=== PATIENT | female | born 1980 | race Caucasian/White ===

== ENCOUNTER 2016-03-15 | Outpatient (CLI) | payer MEDICAID | END 2016-03-15 22:27 | disposition critical access hospital (66) | CPT/HCPCS: A0425; A0429 ==

== ENCOUNTER 2016-03-15 22:46 | Inpatient (IN) | payer MEDICAID ==
[2016-03-15] MEDS ORDERED: SODIUM CHLORIDE 0.9% 1,000 ML IV ONE (23:06)
[2016-03-15] MEDS ORDERED: HYDROmorphone 1 MG/ML SYRINGE IVP STA (23:58)
[2016-03-15] MEDS ORDERED: INSULIN REGULAR HUMAN 100 UNIT/1 ML 10 ML MDV IV STA (23:59)
[2016-03-15] MEDS ORDERED: INSULIN REGULAR HUMAN 100 UNIT/1 ML 10 ML MDV SUBQ STA (23:59)
[2016-03-16] MEDS ORDERED: INSULIN REGULAR HUMAN 100 UNIT/1 ML 10 ML MDV ONE ×2 (00:02→01:58)
[2016-03-16] MEDS ORDERED: MIDAZOLAM 2 MG/2 ML VIAL ONE ×2 (00:47→01:03)
[2016-03-16] MEDS ORDERED: MIDAZOLAM 2 MG/2 ML VIAL IVP STA ×4 (00:47→01:30)
[2016-03-16] MEDS ORDERED: INSULIN REGULAR HUMAN 100 UNIT in SODIUM CHLORIDE 0.9% 100ML 99 ML IV STA (01:45)
[2016-03-16] MEDS ORDERED: PROPOFOL 200 MG/20 ML VIAL IVP ONE (02:16)
[2016-03-16] MEDS ORDERED: SODIUM CHLORIDE 0.9% 1,000 ML IV ONE ×4 (03:10→23:53)
[2016-03-16] MEDS ORDERED: ONDANSETRON 4 MG/2 ML VIAL IVP STA (03:30)
[2016-03-16] MEDS ORDERED: cefTRIAXone 1 GM in SODIUM CHLORIDE 0.9% MINIBAG 100 ML IV STA (03:30)
[2016-03-16] MEDS ORDERED: HYDROmorphone 1 MG/ML SYRINGE IVP STA (03:30)
[2016-03-16] MEDS ORDERED: LORazepam 2 MG/ML SYRINGE IVP STA (03:31)
[2016-03-16] MEDS ORDERED: LORazepam 2 MG/ML SYRINGE ONE (03:40)
[2016-03-16] MEDS ORDERED: HYDROmorphone 1 MG/ML SYRINGE ONE (03:40)
[2016-03-16] MEDS ORDERED: ONDANSETRON 4 MG/2 ML VIAL ONE (03:40)
[2016-03-16] MEDS ORDERED: cefTRIAXone 1 GM VIAL ONE (03:51)
[2016-03-16] MEDS ORDERED: ONDANSETRON 4 MG/2 ML VIAL IVP PRN (06:49)
[2016-03-16] MEDS ORDERED: oxyCODONE 5 MG TABLET PO PRN (06:49)
[2016-03-16] MEDS ORDERED: ALBUTEROL NEB 2.5 MG/3 ML INH PRN (06:49)
[2016-03-16] MEDS: INSULIN REGULAR HUMAN 100 UNIT in SODIUM CHLORIDE 0.9% 100ML 99 ML IV SCH ×2 (08:32→11:39)
[2016-03-16] MEDS: AMPICILLIN/SULBACTAM 3 GM in SODIUM CHLORIDE 0.9% MINIBAG 100 ML IV SCH ×3 (09:11→18:22)
[2016-03-16] MEDS: SODIUM CHLORIDE 0.9% 1,000 ML IV SCH ×3 (09:11→18:52)
[2016-03-16] MEDS: PANTOPRAZOLE 40 MG VIAL IVP SCH ×2 (09:12→20:58)
[2016-03-16] MEDS: ENOXAPARIN 40 MG/0.4 ML SYRINGE SUBQ SCH (09:12)
[2016-03-16] MEDS: HYDROmorphone 1 MG/ML SYRINGE IVP PRN ×5 (09:57→22:32)
[2016-03-16] MEDS: SODIUM CHLORIDE FLUSH 0.9% 10 ML SYRINGE IVP SCH ×2 (12:58→20:58)
[2016-03-16] MEDS: LORazepam 2 MG/ML SYRINGE IVP PRN ×2 (16:25→23:24)
[2016-03-16] MEDS: oxyCODONE 5 MG TABLET PO PRN (19:33)
[2016-03-16] MEDS ORDERED: DEXTROSE 5%-0.45% NACL 1,000 ML IV SCH (20:00)
[2016-03-16] MEDS: SODIUM CHLORIDE FLUSH 0.9% 10 ML SYRINGE IVP PRN (20:58)
[2016-03-16] MEDS ORDERED: CALCIUM GLUCONATE 1,000 MG in SODIUM CHLORIDE 0.9% 50 ML IV SCH (23:16)
[2016-03-16] MEDS ORDERED: POTASSIUM PHOSPHATE 21 MMOL in SODIUM CHLORIDE 0.9% 250 ML IV ONE (23:34)
[2016-03-17] MEDS: HYDROmorphone 1 MG/ML SYRINGE IVP PRN ×7 (01:42→21:53)
[2016-03-17] MEDS: oxyCODONE 5 MG TABLET PO PRN ×2 (02:15→23:21)
[2016-03-17] MEDS ORDERED: DEXTROSE 5%-0.45% NACL 1,000 ML IV SCH (03:15)
[2016-03-17] MEDS ORDERED: POTASSIUM CHLORIDE 20 MEQ TABLET PO ONE (05:17)
[2016-03-17] MEDS ORDERED: POTASSIUM PHOSPHATE 15 MMOL in SODIUM CHLORIDE 0.9% 250 ML IV ONE (05:18)
[2016-03-17] MEDS ORDERED: CALCIUM GLUCONATE 1,000 MG in SODIUM CHLORIDE 0.9% 50 ML IV ONE (05:18)
[2016-03-17] MEDS: SODIUM CHLORIDE FLUSH 0.9% 10 ML SYRINGE IVP SCH ×3 (05:29→21:34)
[2016-03-17] MEDS: AMPICILLIN/SULBACTAM 3 GM in SODIUM CHLORIDE 0.9% MINIBAG 100 ML IV SCH ×6 (06:20→23:52)
[2016-03-17] MEDS ORDERED: INSULIN ASPART 300 UNIT/3 ML PEN SUBQ SCH (08:00)
[2016-03-17] MEDS: SODIUM CHLORIDE FLUSH 0.9% 10 ML SYRINGE IVP PRN ×10 (08:05→21:40)
[2016-03-17] MEDS ORDERED: INSULIN GLARGINE 300 UNIT/3 ML PEN SUBQ SCH (09:00)
[2016-03-17] MEDS: ENOXAPARIN 40 MG/0.4 ML SYRINGE SUBQ SCH (09:36)
[2016-03-17] MEDS: POLYETHYLENE GLYCOL 3350 17 GM PACKET PO SCH (09:36)
[2016-03-17] MEDS: PANTOPRAZOLE 40 MG VIAL IVP SCH ×2 (09:37→21:33)
[2016-03-17] MEDS ORDERED: HYDROmorphone 2 MG TABLET PO PRN (10:39)
[2016-03-17] MEDS ORDERED: INSULIN REGULAR HUMAN 100 UNIT in SODIUM CHLORIDE 0.9% 100ML 99 ML IV SCH ×3 (11:00→12:00)
[2016-03-17] MEDS ORDERED: SODIUM CHLORIDE 0.9% 1,000 ML IV ONE ×2 (11:24→12:43)
[2016-03-17] MEDS ORDERED: A & D OINTMENT 5 GM PACKET TOP ONE ×2 (12:12→14:46)
[2016-03-17] MEDS: LORazepam 2 MG/ML SYRINGE IVP PRN ×4 (12:47→21:34)
[2016-03-17] MEDS: SODIUM CHLORIDE 0.9% 1,000 ML IV SCH ×2 (14:25→22:10)
[2016-03-17] MEDS ORDERED: CYCLOBENZAPRINE 10 MG TABLET PO PRN (14:44)
[2016-03-17] MEDS ORDERED: clonazePAM 0.5 MG TABLET PO PRN (14:44)
[2016-03-17] MEDS ORDERED: METOCLOPRAMIDE 10 MG/2 ML VIAL IVP PRN (14:46)
[2016-03-17] MEDS: INSULIN GLARGINE 300 UNIT/3 ML PEN SUBQ SCH ×2 (15:04→21:41)
[2016-03-17] MEDS ORDERED: POTASSIUM CHLORIDE 20 MEQ TABLET PO SCH (20:15)
[2016-03-17] MEDS ORDERED: AMITRIPTYLINE 25 MG TABLET PO SCH (21:00)
[2016-03-17] MEDS: PROPRANOLOL 10 MG TABLET PO SCH (21:33)
[2016-03-17] MEDS ORDERED: DEXTROSE GEL 37.5 GM TUBE PO PRN (21:51)
[2016-03-17] MEDS ORDERED: GLUCAGON 1 MG/ML VIAL SUBQ PRN (21:51)
[2016-03-17] MEDS ORDERED: DEXTROSE 5% 1,000 ML IV PRN (21:51)
[2016-03-17] MEDS ORDERED: DEXTROSE 50% ABBOJECT 25 GM/50 ML SYRINGE IVP PRN (21:51)
[2016-03-17] MEDS: INSULIN ASPART 300 UNIT/3 ML PEN SUBQ SCH (21:59)
[2016-03-18] MEDS: AMPICILLIN/SULBACTAM 3 GM in SODIUM CHLORIDE 0.9% MINIBAG 100 ML IV SCH ×2 (06:00→13:28)
[2016-03-18] MEDS: SODIUM CHLORIDE 0.9% 1,000 ML IV SCH (07:15)
[2016-03-18] MEDS: SODIUM CHLORIDE FLUSH 0.9% 10 ML SYRINGE IVP SCH (08:23)
[2016-03-18] MEDS ORDERED: SERTRALINE 50 MG TABLET PO SCH (09:00)
[2016-03-18] MEDS: POLYETHYLENE GLYCOL 3350 17 GM PACKET PO SCH (09:29)
[2016-03-18] MEDS: ENOXAPARIN 40 MG/0.4 ML SYRINGE SUBQ SCH (09:30)
[2016-03-18] MEDS: INSULIN GLARGINE 300 UNIT/3 ML PEN SUBQ SCH (09:30)
[2016-03-18] MEDS: PANTOPRAZOLE 40 MG VIAL IVP SCH (09:30)
[2016-03-18] MEDS: PROPRANOLOL 10 MG TABLET PO SCH (09:31)
[2016-03-18] MEDS: oxyCODONE 5 MG TABLET PO PRN (11:20)
[2016-03-18] MEDS: INSULIN ASPART 300 UNIT/3 ML PEN SUBQ SCH (13:28)
== END 2016-03-18 14:10 | disposition home or self-care (01) | DRG 639 ==
PROC: 02HV33Z Insertion of Infusion Device into Superior Vena Cava, Percutaneous Approach (ICD-10-PCS; principal; 2016-03-16)
DX: E10.10 Type 1 diabetes mellitus with ketoacidosis without coma (principal); L03.031 Cellulitis of right toe; H66.001 Acute suppurative otitis media without spontaneous rupture of ear drum, right ear; E10.621 Type 1 diabetes mellitus with foot ulcer; L97.511 Non-pressure chronic ulcer of other part of right foot limited to breakdown of skin; N19 Unspecified kidney failure; F41.9 Anxiety disorder, unspecified; G89.29 Other chronic pain; E10.42 Type 1 diabetes mellitus with diabetic polyneuropathy; I10 Essential (primary) hypertension; E78.5 Hyperlipidemia, unspecified; I73.9 Peripheral vascular disease, unspecified; F41.0 Panic disorder [episodic paroxysmal anxiety]; F32.9 Major depressive disorder, single episode, unspecified; M79.7 Fibromyalgia; I25.10 Atherosclerotic heart disease of native coronary artery without angina pectoris; F17.200 Nicotine dependence, unspecified, uncomplicated; I25.2 Old myocardial infarction; Z78.1 Physical restraint status; Z87.898 Personal history of other specified conditions; Z79.4 Long term (current) use of insulin; Z91.19 Patient's noncompliance with other medical treatment and regimen

== ENCOUNTER 2016-03-27 | Outpatient (CLI) | payer MEDICAID | END 2016-03-27 09:11 | disposition critical access hospital (66) | CPT/HCPCS: A0425; A0429 ==

== ENCOUNTER 2016-03-27 09:24 | Inpatient (IN) | payer MEDICAID ==
[2016-03-27] MEDS ORDERED: SODIUM CHLORIDE 0.9% 1,000 ML IV ONE ×2 (09:37→09:39)
[2016-03-27] MEDS ORDERED: INSULIN REGULAR HUMAN 100 UNIT/1 ML 10 ML MDV IVP STA (09:38)
[2016-03-27] MEDS ORDERED: INSULIN REGULAR HUMAN 100 UNIT in SODIUM CHLORIDE 0.9% 100ML 99 ML IV STA (09:41)
[2016-03-27] MEDS ORDERED: INSULIN REGULAR HUMAN 100 UNIT/1 ML 10 ML MDV ONE (10:02)
[2016-03-27] MEDS ORDERED: ONDANSETRON 4 MG/2 ML VIAL IVP PRN (11:28)
[2016-03-27] MEDS ORDERED: ONDANSETRON 4 MG/2 ML VIAL ONE (12:08)
[2016-03-27] MEDS ORDERED: HYDROmorphone 1 MG/ML SYRINGE ONE (12:08)
[2016-03-27] MEDS: HYDROmorphone 1 MG/ML SYRINGE IVP PRN ×5 (12:13→23:28)
[2016-03-27] MEDS: SODIUM CHLORIDE FLUSH 0.9% 10 ML SYRINGE IVP PRN ×5 (14:22→17:30)
[2016-03-27] MEDS ORDERED: A & D OINTMENT 5 GM PACKET TOP ONE ×2 (14:24→15:53)
[2016-03-27] MEDS: SODIUM CHLORIDE 0.9% 1,000 ML IV SCH ×4 (14:27→22:59)
[2016-03-27] MEDS ORDERED: SODIUM BICARBONATE 100 MEQ in DEXTROSE 5% 1,000 ML IV SCH (14:30)
[2016-03-27] MEDS: SODIUM CHLORIDE FLUSH 0.9% 10 ML SYRINGE IVP SCH (14:37)
[2016-03-27] MEDS ORDERED: NS W/20 MEQ KCL 1,000 ML IV SCH (17:00)
[2016-03-27] MEDS ORDERED: INSULIN REGULAR HUMAN 100 UNIT in SODIUM CHLORIDE 0.9% 100ML 99 ML IV SCH (17:00)
[2016-03-27] MEDS: PROCHLORPERAZINE 10 MG/2 ML VIAL IVP PRN ×2 (17:28→23:31)
[2016-03-27] MEDS ORDERED: CALCIUM GLUCONATE 1,000 MG in SODIUM CHLORIDE 0.9% 50 ML IV ONE (19:30)
[2016-03-27] MEDS ORDERED: POTASSIUM PHOSPHATE 15 MMOL in SODIUM CHLORIDE 0.9% 250 ML IV ONE (20:00)
[2016-03-27] MEDS ORDERED: ACETAMINOPHEN 1,000 MG/100 ML 100 ML IV SCH (20:38)
[2016-03-27] MEDS: DEXTROSE 5%-0.9% NACL 1,000 ML IV SCH (21:15)
[2016-03-28] MEDS: SODIUM CHLORIDE FLUSH 0.9% 10 ML SYRINGE IVP PRN ×2 (00:34→20:29)
[2016-03-28] MEDS ORDERED: CALCIUM GLUCONATE 1,000 MG in SODIUM CHLORIDE 0.9% 50 ML IV ONE (00:51)
[2016-03-28] MEDS ORDERED: CALCIUM GLUCONATE 1,000 MG in SODIUM CHLORIDE 0.9% 50 ML IV SCH (01:13)
[2016-03-28] MEDS: HYDROmorphone 1 MG/ML SYRINGE IVP PRN ×8 (02:08→20:26)
[2016-03-28] MEDS: SODIUM CHLORIDE FLUSH 0.9% 10 ML SYRINGE IVP SCH ×4 (05:26→20:52)
[2016-03-28] MEDS: DEXTROSE 5%-0.9% NACL 1,000 ML IV SCH (05:33)
[2016-03-28] MEDS: ACETAMINOPHEN 325 MG TABLET PO PRN ×2 (05:57→17:43)
[2016-03-28] MEDS: INSULIN GLARGINE 300 UNIT/3 ML PEN SUBQ SCH ×3 (07:52→20:37)
[2016-03-28] MEDS ORDERED: DEXTROSE GEL 37.5 GM TUBE PO PRN (07:59)
[2016-03-28] MEDS ORDERED: DEXTROSE 50% ABBOJECT 25 GM/50 ML SYRINGE IVP PRN (07:59)
[2016-03-28] MEDS ORDERED: DEXTROSE 5% 1,000 ML IV PRN (07:59)
[2016-03-28] MEDS ORDERED: GLUCAGON 1 MG/ML VIAL SUBQ PRN (07:59)
[2016-03-28] MEDS: NYSTATIN CREAM 15 GM TUBE TOP SCH ×3 (08:02→23:41)
[2016-03-28] MEDS: INSULIN ASPART 300 UNIT/3 ML PEN SUBQ SCH ×7 (08:17→20:35)
[2016-03-28] MEDS: NS W/20 MEQ KCL 1,000 ML IV SCH ×2 (08:17→16:38)
[2016-03-28] MEDS: ENOXAPARIN 40 MG/0.4 ML SYRINGE SUBQ SCH (08:17)
[2016-03-28] MEDS: clonazePAM 0.5 MG TABLET PO PRN ×2 (12:59→20:38)
[2016-03-28] MEDS: oxyCODONE 5 MG TABLET PO PRN (14:46)
[2016-03-28] MEDS: PROCHLORPERAZINE 10 MG/2 ML VIAL IVP PRN (20:52)
[2016-03-29] MEDS: HYDROmorphone 1 MG/ML SYRINGE IVP PRN ×6 (01:28→12:49)
[2016-03-29] MEDS: NS W/20 MEQ KCL 1,000 ML IV SCH ×2 (01:29→10:39)
[2016-03-29] MEDS: SODIUM CHLORIDE FLUSH 0.9% 10 ML SYRINGE IVP PRN (04:08)
[2016-03-29] MEDS: oxyCODONE 5 MG TABLET PO PRN (05:15)
[2016-03-29] MEDS: SODIUM CHLORIDE FLUSH 0.9% 10 ML SYRINGE IVP SCH (06:11)
[2016-03-29] MEDS: ENOXAPARIN 40 MG/0.4 ML SYRINGE SUBQ SCH (08:13)
[2016-03-29] MEDS: INSULIN ASPART 300 UNIT/3 ML PEN SUBQ SCH ×4 (08:14→12:34)
[2016-03-29] MEDS: NYSTATIN CREAM 15 GM TUBE TOP SCH (08:15)
[2016-03-29] MEDS: INSULIN GLARGINE 300 UNIT/3 ML PEN SUBQ SCH (08:15)
[2016-03-29] MEDS: clonazePAM 0.5 MG TABLET PO PRN (09:20)
[2016-03-29] MEDS: ACETAMINOPHEN 325 MG TABLET PO PRN (10:41)
[2016-03-29] MEDS ORDERED: A & D OINTMENT 5 GM PACKET TOP ONE (11:24)
== END 2016-03-29 13:57 | disposition home or self-care (01) | DRG 638 ==
PROC: 02HV33Z Insertion of Infusion Device into Superior Vena Cava, Percutaneous Approach (ICD-10-PCS; principal; 2016-03-27)
DX: E10.10 Type 1 diabetes mellitus with ketoacidosis without coma (principal); E87.1 Hypo-osmolality and hyponatremia; T68.XXXA Hypothermia, initial encounter; X31.XXXA Exposure to excessive natural cold, initial encounter; I10 Essential (primary) hypertension; E10.42 Type 1 diabetes mellitus with diabetic polyneuropathy; G89.4 Chronic pain syndrome; T38.3X6A Underdosing of insulin and oral hypoglycemic [antidiabetic] drugs, initial encounter; L84 Corns and callosities; E78.00 Pure hypercholesterolemia, unspecified; I73.9 Peripheral vascular disease, unspecified; F32.9 Major depressive disorder, single episode, unspecified; F41.0 Panic disorder [episodic paroxysmal anxiety]; M79.7 Fibromyalgia; F17.200 Nicotine dependence, unspecified, uncomplicated; Z59.0 Homelessness; Z76.5 Malingerer [conscious simulation]; Z87.898 Personal history of other specified conditions

== ENCOUNTER 2016-04-16 17:03 | Inpatient (IN) | payer MEDICAID ==
[2016-04-16] MEDS ORDERED: ONDANSETRON 4 MG/2 ML VIAL IVP STA ×2 (17:18→18:48)
[2016-04-16] MEDS ORDERED: LORazepam 2 MG/ML SYRINGE IVP STA (17:18)
[2016-04-16] MEDS ORDERED: SODIUM CHLORIDE 0.9% 1,000 ML IV ONE (17:18)
[2016-04-16] MEDS ORDERED: HYDROmorphone 1 MG/ML SYRINGE IVP STA ×2 (17:18→18:17)
[2016-04-16] MEDS ORDERED: LORazepam 2 MG/ML SYRINGE ONE (17:33)
[2016-04-16] MEDS ORDERED: HYDROmorphone 1 MG/ML SYRINGE ONE ×2 (17:33→18:24)
[2016-04-16] MEDS ORDERED: ONDANSETRON 4 MG/2 ML VIAL ONE ×2 (17:33→18:52)
[2016-04-16] MEDS ORDERED: ceFAZolin 2 GM/50 ML 50 ML IV ONE ×2 (18:19→18:51)
[2016-04-16] MEDS ORDERED: ELECTROLYTE-A SOLUTION 1,000 ML IV ONE ×2 (18:24→19:13)
[2016-04-16] MEDS ORDERED: ELECTROLYTE-A SOLUTION 1,000 ML IV SCH (19:00)
[2016-04-16] MEDS ORDERED: ACETAMINOPHEN 325 MG TABLET PO STA (19:10)
[2016-04-16] MEDS ORDERED: ACETAMINOPHEN 325 MG TABLET PO ONE (19:14)
[2016-04-16] MEDS ORDERED: SODIUM CHLORIDE FLUSH 0.9% 10 ML SYRINGE IVP PRN (19:56)
[2016-04-16] MEDS ORDERED: HYDROmorphone 1 MG/ML SYRINGE IVP PRN (19:56)
[2016-04-16] MEDS ORDERED: PROCHLORPERAZINE 10 MG/2 ML VIAL IVP PRN (19:56)
[2016-04-16] MEDS ORDERED: clonazePAM 0.5 MG TABLET PO PRN (19:59)
[2016-04-16] MEDS: SODIUM CHLORIDE 0.9% 1,000 ML IV SCH (21:07)
[2016-04-16] MEDS: SODIUM CHLORIDE FLUSH 0.9% 10 ML SYRINGE IVP SCH (21:07)
[2016-04-16] MEDS: AMPICILLIN/SULBACTAM 3 GM in SODIUM CHLORIDE 0.9% MINIBAG 100 ML IV SCH (21:34)
[2016-04-16] MEDS: INSULIN ASPART 300 UNIT/3 ML PEN SUBQ SCH (21:54)
[2016-04-16] MEDS: HYDROmorphone 1 MG/ML SYRINGE IVP PRN ×2 (21:55→23:59)
[2016-04-16] MEDS: INSULIN GLARGINE 300 UNIT/3 ML PEN SUBQ SCH (22:10)
[2016-04-16] MEDS: PROPRANOLOL 10 MG TABLET PO SCH (22:10)
[2016-04-16] MEDS: ONDANSETRON ODT 4 MG TABLET TL SCH (23:59)
[2016-04-17] MEDS: HYDROmorphone 1 MG/ML SYRINGE IVP PRN ×2 (02:09→05:57)
[2016-04-17] MEDS: AMPICILLIN/SULBACTAM 3 GM in SODIUM CHLORIDE 0.9% MINIBAG 100 ML IV SCH ×3 (03:20→16:46)
[2016-04-17] MEDS: SODIUM CHLORIDE 0.9% 1,000 ML IV SCH ×2 (04:53→14:14)
[2016-04-17] MEDS: ONDANSETRON ODT 4 MG TABLET TL SCH ×4 (05:57→17:26)
[2016-04-17] MEDS: SODIUM CHLORIDE FLUSH 0.9% 10 ML SYRINGE IVP SCH ×3 (06:00→21:52)
[2016-04-17] MEDS: PANTOPRAZOLE 40 MG TABLET PO SCH (06:01)
[2016-04-17] MEDS ORDERED: DEXTROSE 50% ABBOJECT 25 GM/50 ML SYRINGE ONE (07:51)
[2016-04-17] MEDS ORDERED: GLUCAGON 1 MG/ML VIAL ONE (08:08)
[2016-04-17] MEDS: INSULIN ASPART 300 UNIT/3 ML PEN SUBQ SCH ×4 (09:06→21:50)
[2016-04-17] MEDS: INSULIN GLARGINE 300 UNIT/3 ML PEN SUBQ SCH ×2 (09:08→21:50)
[2016-04-17] MEDS: PROPRANOLOL 10 MG TABLET PO SCH ×3 (11:55→21:50)
[2016-04-17] MEDS: ENOXAPARIN 40 MG/0.4 ML SYRINGE SUBQ SCH (11:55)
[2016-04-17] MEDS: SERTRALINE 50 MG TABLET PO SCH ×2 (11:56→14:55)
[2016-04-17] MEDS: HYDROmorphone 2 MG TABLET PO PRN ×2 (12:14→21:49)
[2016-04-17] MEDS ORDERED: BISACODYL 10 MG SUPP PR ONE (12:15)
[2016-04-17] MEDS: POLYETHYLENE GLYCOL 3350 17 GM PACKET PO SCH (14:11)
[2016-04-17] MEDS: DOCUSATE SODIUM 250 MG CAPSULE PO SCH (14:11)
[2016-04-17] MEDS: SENNA 8.6 MG TABLET PO SCH (14:12)
[2016-04-18] MEDS: CLINDAMYCIN 150 MG CAPSULE PO SCH ×3 (00:06→11:37)
[2016-04-18] MEDS: ONDANSETRON ODT 4 MG TABLET TL SCH ×3 (00:07→11:37)
[2016-04-18] MEDS: ACETAMINOPHEN 325 MG TABLET PO PRN ×2 (00:20→10:42)
[2016-04-18] MEDS: SODIUM CHLORIDE FLUSH 0.9% 10 ML SYRINGE IVP SCH ×2 (05:35→11:39)
[2016-04-18] MEDS: PANTOPRAZOLE 40 MG TABLET PO SCH (06:12)
[2016-04-18] MEDS: HYDROmorphone 2 MG TABLET PO PRN (06:13)
[2016-04-18] MEDS: INSULIN ASPART 300 UNIT/3 ML PEN SUBQ SCH ×2 (08:02→11:39)
[2016-04-18] MEDS: INSULIN GLARGINE 300 UNIT/3 ML PEN SUBQ SCH (08:03)
[2016-04-18] MEDS: ENOXAPARIN 40 MG/0.4 ML SYRINGE SUBQ SCH (08:03)
[2016-04-18] MEDS: POLYETHYLENE GLYCOL 3350 17 GM PACKET PO SCH (08:05)
[2016-04-18] MEDS: SENNA 8.6 MG TABLET PO SCH (08:06)
[2016-04-18] MEDS: PROPRANOLOL 10 MG TABLET PO SCH (08:06)
[2016-04-18] MEDS: SERTRALINE 50 MG TABLET PO SCH (08:06)
[2016-04-18] MEDS: DOCUSATE SODIUM 250 MG CAPSULE PO SCH (08:06)
== END 2016-04-18 13:18 | disposition home or self-care (01) | DRG 392 ==
DX: R10.9 Unspecified abdominal pain (principal); E10.52 Type 1 diabetes mellitus with diabetic peripheral angiopathy with gangrene; R64 Cachexia; Z90.49 Acquired absence of other specified parts of digestive tract; Z79.4 Long term (current) use of insulin; Z88.5 Allergy status to narcotic agent; N94.6 Dysmenorrhea, unspecified; R11.2 Nausea with vomiting, unspecified; E10.649 Type 1 diabetes mellitus with hypoglycemia without coma; E10.42 Type 1 diabetes mellitus with diabetic polyneuropathy; G89.4 Chronic pain syndrome; I10 Essential (primary) hypertension; Z83.3 Family history of diabetes mellitus; Z82.49 Family history of ischemic heart disease and other diseases of the circulatory system; Z59.0 Homelessness; Z91.14 Patient's other noncompliance with medication regimen; M25.50 Pain in unspecified joint; I25.2 Old myocardial infarction; F32.9 Major depressive disorder, single episode, unspecified; F41.0 Panic disorder [episodic paroxysmal anxiety]; F17.200 Nicotine dependence, unspecified, uncomplicated; E86.0 Dehydration; Z68.23 Body mass index [BMI] 23.0-23.9, adult

== ENCOUNTER 2016-04-21 | Outpatient (CLI) | payer MEDICAID | END 2016-04-21 03:46 | disposition critical access hospital (66) | CPT/HCPCS: A0425; A0429 ==

== ENCOUNTER 2016-04-21 04:00 | Inpatient (IN) | payer MEDICAID ==
[2016-04-21] MEDS ORDERED: SODIUM CHLORIDE 0.9% 1,000 ML IV ONE ×3 (04:08→09:58)
[2016-04-21] MEDS ORDERED: INSULIN REGULAR HUMAN 100 UNIT/1 ML 10 ML MDV IVP STA ×2 (04:08→06:30)
[2016-04-21] MEDS ORDERED: INSULIN REGULAR HUMAN 100 UNIT in SODIUM CHLORIDE 0.9% 100ML 99 ML IV STA (05:04)
[2016-04-21] MEDS ORDERED: INSULIN REGULAR HUMAN 100 UNIT/1 ML 10 ML MDV ONE ×2 (05:26→06:31)
[2016-04-21] MEDS ORDERED: ONDANSETRON ODT 4 MG TABLET TL PRN (05:29)
[2016-04-21] MEDS ORDERED: ONDANSETRON 4 MG/2 ML VIAL IVP PRN ×2 (05:29→08:03)
[2016-04-21] MEDS ORDERED: SODIUM BICARBONATE 100 MEQ in DEXTROSE 5% 1,000 ML IV SCH (06:00)
[2016-04-21] MEDS ORDERED: SODIUM CHLORIDE 0.9% 1,000 ML IV SCH (06:00)
[2016-04-21] MEDS ORDERED: SODIUM CHLORIDE 0.9% 500 ML IV ONE (06:18)
[2016-04-21] MEDS: SODIUM CHLORIDE FLUSH 0.9% 10 ML SYRINGE IVP PRN ×7 (08:00→17:26)
[2016-04-21] MEDS: INSULIN REGULAR HUMAN 100 UNIT in SODIUM CHLORIDE 0.9% 100ML 99 ML IV SCH ×2 (08:15→23:18)
[2016-04-21] MEDS: LORazepam 2 MG/ML SYRINGE IVP PRN ×3 (08:39→15:06)
[2016-04-21] MEDS: PANTOPRAZOLE 40 MG VIAL IVP SCH (08:44)
[2016-04-21] MEDS: SODIUM CHLORIDE 0.9% 1,000 ML IV SCH ×5 (08:55→20:07)
[2016-04-21] MEDS: POLYETHYLENE GLYCOL 3350 17 GM PACKET PO SCH (11:27)
[2016-04-21] MEDS ORDERED: DOPamine 800 MG/500 ML 500 ML IV ONE (11:30)
[2016-04-21] MEDS ORDERED: DOPamine 800 MG/500 ML 500 ML IV STA (11:31)
[2016-04-21] MEDS: SODIUM CHLORIDE FLUSH 0.9% 10 ML SYRINGE IVP SCH ×3 (12:02→22:06)
[2016-04-21] MEDS ORDERED: SODIUM BICARBONATE ABBOJECT 50 MEQ/50 ML SYRINGE IVP ONE (13:57)
[2016-04-22] MEDS: INSULIN REGULAR HUMAN 100 UNIT in SODIUM CHLORIDE 0.9% 100ML 99 ML IV SCH (00:38)
[2016-04-22] MEDS: SODIUM CHLORIDE 0.9% 1,000 ML IV SCH ×5 (01:40→23:00)
[2016-04-22] MEDS ORDERED: CALCIUM GLUCONATE 1,000 MG in SODIUM CHLORIDE 0.9% 50 ML IV SCH ×2 (02:13→06:00)
[2016-04-22] MEDS ORDERED: POTASSIUM PHOSPHATE 15 MMOL in SODIUM CHLORIDE 0.9% 250 ML IV ONE (02:15)
[2016-04-22] MEDS: POTASSIUM CHLOR 20 MEQ/100 ML 100 ML IV SCH ×2 (02:56→03:54)
[2016-04-22] MEDS: SODIUM CHLORIDE FLUSH 0.9% 10 ML SYRINGE IVP SCH ×3 (06:43→21:17)
[2016-04-22] MEDS: PANTOPRAZOLE 40 MG VIAL IVP SCH (06:43)
[2016-04-22] MEDS ORDERED: CALCIUM GLUCONATE 1,000 MG in SODIUM CHLORIDE 0.9% 50 ML IV ONE (08:59)
[2016-04-22] MEDS: SODIUM CHLORIDE FLUSH 0.9% 10 ML SYRINGE IVP PRN ×3 (09:07→11:19)
[2016-04-22] MEDS: LORazepam 2 MG/ML SYRINGE IVP PRN ×6 (11:18→23:45)
[2016-04-22] MEDS: POTASSIUM CHLORIDE 20 MEQ TABLET PO ONE ×2 (12:31→14:53)
[2016-04-22] MEDS: POLYETHYLENE GLYCOL 3350 17 GM PACKET PO SCH (12:31)
[2016-04-22] MEDS ORDERED: DEXTROSE 5% 1,000 ML IV PRN (15:25)
[2016-04-22] MEDS ORDERED: GLUCAGON 1 MG/ML VIAL SUBQ PRN (15:25)
[2016-04-22] MEDS ORDERED: DEXTROSE GEL 37.5 GM TUBE PO PRN (15:25)
[2016-04-22] MEDS ORDERED: DEXTROSE 50% ABBOJECT 25 GM/50 ML SYRINGE IVP PRN (15:25)
[2016-04-22] MEDS ORDERED: HALOPERIDOL 5 MG/ML VIAL IM ONE ×2 (16:30→23:49)
[2016-04-22] MEDS: INSULIN ASPART 300 UNIT/3 ML PEN SUBQ SCH ×2 (17:01→21:20)
[2016-04-22] MEDS: PANTOPRAZOLE 40 MG TABLET PO SCH (17:02)
[2016-04-22] MEDS ORDERED: INSULIN GLARGINE 300 UNIT/3 ML PEN SUBQ SCH (21:00)
[2016-04-22] MEDS: PROPRANOLOL 10 MG TABLET PO SCH (21:15)
[2016-04-22] MEDS: FLUTICASONE NASAL SPRAY NAS SCH (21:16)
[2016-04-22] MEDS: INSULIN GLARGINE 300 UNIT/3 ML PEN SUBQ SCH (21:19)
[2016-04-23] MEDS: LORazepam 2 MG/ML SYRINGE IVP PRN ×4 (01:28→13:25)
[2016-04-23] MEDS: SODIUM CHLORIDE 0.9% 1,000 ML IV SCH ×4 (04:28→20:55)
[2016-04-23] MEDS ORDERED: HALOPERIDOL 5 MG/ML VIAL IM ONE (05:16)
[2016-04-23] MEDS: SODIUM CHLORIDE FLUSH 0.9% 10 ML SYRINGE IVP SCH ×3 (05:53→23:04)
[2016-04-23] MEDS: PANTOPRAZOLE 40 MG TABLET PO SCH (06:07)
[2016-04-23] MEDS ORDERED: POTASSIUM CHLORIDE 20 MEQ TABLET PO ONE (07:00)
[2016-04-23] MEDS ORDERED: POTASSIUM PHOSPHATE 15 MMOL in SODIUM CHLORIDE 0.9% 250 ML IV ONE (08:00)
[2016-04-23] MEDS: PANTOPRAZOLE 40 MG VIAL IVP SCH (08:12)
[2016-04-23] MEDS: POLYETHYLENE GLYCOL 3350 17 GM PACKET PO SCH (08:12)
[2016-04-23] MEDS: PROPRANOLOL 10 MG TABLET PO SCH ×2 (08:13→20:32)
[2016-04-23] MEDS: MAGNESIUM OXIDE 400 MG TABLET PO SCH ×2 (08:13→13:27)
[2016-04-23] MEDS: SERTRALINE 50 MG TABLET PO SCH (08:13)
[2016-04-23] MEDS: FLUTICASONE NASAL SPRAY NAS SCH ×2 (08:14→23:04)
[2016-04-23] MEDS: INSULIN ASPART 300 UNIT/3 ML PEN SUBQ SCH ×4 (08:58→20:38)
[2016-04-23] MEDS: clonazePAM 0.5 MG TABLET PO PRN ×2 (10:15→20:32)
[2016-04-23] MEDS: HALOPERIDOL 5 MG/ML VIAL IM PRN ×2 (10:49→16:12)
[2016-04-23] MEDS ORDERED: OLANZapine ODT 5 MG TABLET TL SCH (20:00)
[2016-04-23] MEDS: INSULIN GLARGINE 300 UNIT/3 ML PEN SUBQ SCH (20:37)
[2016-04-24] MEDS: SODIUM CHLORIDE 0.9% 1,000 ML IV SCH ×2 (01:59→07:40)
[2016-04-24] MEDS: PANTOPRAZOLE 40 MG TABLET PO SCH (05:20)
[2016-04-24] MEDS: SODIUM CHLORIDE FLUSH 0.9% 10 ML SYRINGE IVP SCH ×3 (06:01→21:46)
[2016-04-24] MEDS: PANTOPRAZOLE 40 MG VIAL IVP SCH (06:13)
[2016-04-24] MEDS: POTASSIUM CHLOR 20 MEQ/100 ML 100 ML IV SCH ×2 (07:35→08:47)
[2016-04-24] MEDS ORDERED: POTASSIUM PHOSPHATE 15 MMOL in SODIUM CHLORIDE 0.9% 250 ML IV ONE (08:00)
[2016-04-24] MEDS: INSULIN ASPART 300 UNIT/3 ML PEN SUBQ SCH ×4 (08:00→21:17)
[2016-04-24] MEDS: SERTRALINE 50 MG TABLET PO SCH (08:50)
[2016-04-24] MEDS: PROPRANOLOL 10 MG TABLET PO SCH ×2 (08:50→21:13)
[2016-04-24] MEDS: POLYETHYLENE GLYCOL 3350 17 GM PACKET PO SCH (08:50)
[2016-04-24] MEDS: FLUTICASONE NASAL SPRAY NAS SCH ×2 (09:39→21:11)
[2016-04-24] MEDS ORDERED: BENZOCAINE/MENTHOL LOZENGE MM PRN (16:58)
[2016-04-24] MEDS: KETOROLAC 15 MG/ML VIAL IVP PRN (20:35)
[2016-04-24] MEDS ORDERED: OLANZapine ODT 5 MG TABLET TL SCH (21:00)
[2016-04-24] MEDS: OLANZapine ODT 5 MG TABLET TL SCH (21:12)
[2016-04-24] MEDS: INSULIN GLARGINE 300 UNIT/3 ML PEN SUBQ SCH (21:14)
[2016-04-24] MEDS: SODIUM CHLORIDE FLUSH 0.9% 10 ML SYRINGE IVP PRN (21:41)
[2016-04-24] MEDS: PREGABALIN 100 MG CAPSULE PO SCH (21:41)
[2016-04-24] MEDS ORDERED: MAGNESIUM SULFATE 5 GM/10 ML VIAL IV STA (22:38)
[2016-04-24] MEDS ORDERED: MAGNESIUM SULFATE 2 GRAM 50 ML IV ONE (22:56)
[2016-04-24] MEDS ORDERED: POTASSIUM CHLORIDE 20 MEQ TABLET PO SCH (23:00)
[2016-04-25] MEDS: SODIUM CHLORIDE FLUSH 0.9% 10 ML SYRINGE IVP PRN ×2 (04:34→06:38)
[2016-04-25] MEDS: KETOROLAC 15 MG/ML VIAL IVP PRN ×2 (04:34→17:47)
[2016-04-25] MEDS: LORazepam 2 MG/ML SYRINGE IVP PRN (04:34)
[2016-04-25] MEDS: PANTOPRAZOLE 40 MG VIAL IVP SCH (06:38)
[2016-04-25] MEDS: SODIUM CHLORIDE FLUSH 0.9% 10 ML SYRINGE IVP SCH ×3 (07:32→17:47)
[2016-04-25] MEDS: INSULIN ASPART 300 UNIT/3 ML PEN SUBQ SCH ×4 (08:37→21:54)
[2016-04-25] MEDS: FLUTICASONE NASAL SPRAY NAS SCH ×2 (08:38→21:49)
[2016-04-25] MEDS: SERTRALINE 50 MG TABLET PO SCH (08:39)
[2016-04-25] MEDS: PROPRANOLOL 10 MG TABLET PO SCH ×2 (08:39→21:49)
[2016-04-25] MEDS: PREGABALIN 100 MG CAPSULE PO SCH ×2 (08:39→21:50)
[2016-04-25] MEDS: POLYETHYLENE GLYCOL 3350 17 GM PACKET PO SCH (08:39)
[2016-04-25] MEDS: PANTOPRAZOLE 40 MG TABLET PO SCH (10:27)
[2016-04-25] MEDS: SULFAMETH/TRIMETH DS 800/160 MG TABLET PO SCH ×2 (11:48→21:49)
[2016-04-25] MEDS: ACETAMINOPHEN 325 MG TABLET PO PRN ×3 (11:48→23:10)
[2016-04-25] MEDS ORDERED: INSULIN ASPART 300 UNIT/3 ML PEN SUBQ SCH (12:00)
[2016-04-25] MEDS: OLANZapine ODT 5 MG TABLET TL SCH (21:49)
[2016-04-25] MEDS: INSULIN GLARGINE 300 UNIT/3 ML PEN SUBQ SCH (21:52)
[2016-04-26] MEDS ORDERED: SODIUM CHLORIDE 0.9% 10 ML ONE ×2 (00:23→07:04)
[2016-04-26] MEDS: KETOROLAC 15 MG/ML VIAL IVP PRN ×2 (00:28→07:07)
[2016-04-26] MEDS: SODIUM CHLORIDE FLUSH 0.9% 10 ML SYRINGE IVP SCH (05:55)
[2016-04-26] MEDS: PANTOPRAZOLE 40 MG TABLET PO SCH (07:06)
[2016-04-26] MEDS: INSULIN ASPART 300 UNIT/3 ML PEN SUBQ SCH ×3 (09:29→11:44)
[2016-04-26] MEDS: FLUTICASONE NASAL SPRAY NAS SCH (09:30)
[2016-04-26] MEDS: POLYETHYLENE GLYCOL 3350 17 GM PACKET PO SCH (09:30)
[2016-04-26] MEDS: SERTRALINE 50 MG TABLET PO SCH (09:30)
[2016-04-26] MEDS: PREGABALIN 100 MG CAPSULE PO SCH (09:30)
[2016-04-26] MEDS: SULFAMETH/TRIMETH DS 800/160 MG TABLET PO SCH (09:30)
[2016-04-26] MEDS: PROPRANOLOL 10 MG TABLET PO SCH (09:31)
[2016-04-26] MEDS ORDERED: POTASSIUM CHLORIDE 10 MEQ CAPSULE PO SCH (12:00)
== END 2016-04-26 12:26 | disposition home or self-care (01) | DRG 638 ==
PROC: 05HM33Z Insertion of Infusion Device into Right Internal Jugular Vein, Percutaneous Approach (ICD-10-PCS; principal; 2016-04-21)
PROC: B543ZZA Ultrasonography of Right Jugular Veins, Guidance (ICD-10-PCS; 2016-04-21)
PROC: 30233N1 Transfusion of Nonautologous Red Blood Cells into Peripheral Vein, Percutaneous Approach (ICD-10-PCS; 2016-04-23)
DX: E10.11 Type 1 diabetes mellitus with ketoacidosis with coma (principal); E87.2 Acidosis; G89.4 Chronic pain syndrome; E10.43 Type 1 diabetes mellitus with diabetic autonomic (poly)neuropathy; K31.84 Gastroparesis; Z79.4 Long term (current) use of insulin; F15.10 Other stimulant abuse, uncomplicated; Z59.0 Homelessness; Z90.49 Acquired absence of other specified parts of digestive tract; Z88.5 Allergy status to narcotic agent; T68.XXXA Hypothermia, initial encounter; E10.51 Type 1 diabetes mellitus with diabetic peripheral angiopathy without gangrene; E10.42 Type 1 diabetes mellitus with diabetic polyneuropathy; F32.9 Major depressive disorder, single episode, unspecified; F41.0 Panic disorder [episodic paroxysmal anxiety]; E78.00 Pure hypercholesterolemia, unspecified; I25.2 Old myocardial infarction; F17.200 Nicotine dependence, unspecified, uncomplicated; Z91.19 Patient's noncompliance with other medical treatment and regimen

== ENCOUNTER 2016-04-28 10:27 | Outpatient (CLI) | payer MEDICAID | END 2016-04-28 10:28 | disposition critical access hospital (66) | DX: R07.9 Chest pain, unspecified (principal); R11.10 Vomiting, unspecified; H54.0 Blindness, both eyes | CPT/HCPCS: A0425; A0427 ==

== ENCOUNTER 2016-04-28 10:41 | Inpatient (IN) | payer MEDICAID ==
[2016-04-28] MEDS ORDERED: ONDANSETRON 4 MG/2 ML VIAL ONE (10:46)
[2016-04-28] MEDS ORDERED: HYDROmorphone 1 MG/ML SYRINGE ONE (10:47)
[2016-04-28] MEDS ORDERED: SODIUM CHLORIDE 0.9% 1,000 ML IV ONE (10:49)
[2016-04-28] MEDS ORDERED: HYDROmorphone 1 MG/ML SYRINGE IVP STA (10:49)
[2016-04-28] MEDS ORDERED: ONDANSETRON 4 MG/2 ML VIAL IVP STA (10:49)
[2016-04-28] MEDS ORDERED: LORazepam 2 MG/ML SYRINGE IVP STA ×2 (10:55→12:50)
[2016-04-28] MEDS ORDERED: LORazepam 2 MG/ML SYRINGE ONE (10:57)
[2016-04-28] MEDS ORDERED: METOCLOPRAMIDE 10 MG/2 ML VIAL IVP STA (11:21)
[2016-04-28] MEDS ORDERED: METOCLOPRAMIDE 10 MG/2 ML VIAL IVP ONE (11:23)
[2016-04-28] MEDS ORDERED: SODIUM CHLORIDE FLUSH 0.9% 10 ML SYRINGE IVP PRN (12:15)
[2016-04-28] MEDS ORDERED: INSULIN REGULAR HUMAN 100 UNIT in SODIUM CHLORIDE 0.9% 100ML 99 ML IV SCH (13:00)
[2016-04-28] MEDS ORDERED: HALOPERIDOL 5 MG/ML VIAL IM ONE (13:45)
[2016-04-28] MEDS: LORazepam 2 MG/ML SYRINGE IVP PRN ×3 (13:52→20:38)
[2016-04-28] MEDS: SODIUM CHLORIDE 0.9% 1,000 ML IV SCH ×3 (13:55→20:53)
[2016-04-28] MEDS: SODIUM CHLORIDE FLUSH 0.9% 10 ML SYRINGE IVP SCH ×2 (14:27→20:38)
[2016-04-28] MEDS ORDERED: A & D OINTMENT 5 GM PACKET TOP ONE (15:30)
[2016-04-28] MEDS: ACETAMINOPHEN 325 MG TABLET PO PRN ×2 (16:18→20:56)
[2016-04-28] MEDS: ENOXAPARIN 40 MG/0.4 ML SYRINGE SUBQ SCH (16:19)
[2016-04-28] MEDS ORDERED: DEXTROSE 5% 1,000 ML IV ONE (21:25)
[2016-04-28] MEDS ORDERED: SODIUM BICARBONATE ABBOJECT 50 MEQ/50 ML SYRINGE ONE (21:25)
[2016-04-28] MEDS ORDERED: SODIUM BICARBONATE 100 MEQ in DEXTROSE 5% 1,000 ML IV SCH (22:00)
[2016-04-28] MEDS: INSULIN REGULAR HUMAN 100 UNIT in SODIUM CHLORIDE 0.9% 100ML 99 ML IV SCH (23:08)
[2016-04-29] MEDS ORDERED: DEXTROSE 50% ABBOJECT 25 GM/50 ML SYRINGE IVP PRN (01:07)
[2016-04-29] MEDS ORDERED: DEXTROSE 5% 1,000 ML IV PRN (01:07)
[2016-04-29] MEDS ORDERED: GLUCAGON 1 MG/ML VIAL SUBQ PRN (01:07)
[2016-04-29] MEDS ORDERED: DEXTROSE GEL 37.5 GM TUBE PO PRN (01:07)
[2016-04-29] MEDS: LORazepam 2 MG/ML SYRINGE IVP PRN ×6 (01:37→18:30)
[2016-04-29] MEDS: SODIUM CHLORIDE 0.9% 1,000 ML IV SCH ×4 (01:40→22:51)
[2016-04-29] MEDS: INSULIN GLARGINE 300 UNIT/3 ML PEN SUBQ SCH ×2 (01:52→20:42)
[2016-04-29] MEDS ORDERED: MAGNESIUM SULFATE 2 GRAM 50 ML IV ONE (06:48)
[2016-04-29] MEDS: SODIUM CHLORIDE FLUSH 0.9% 10 ML SYRINGE IVP SCH ×4 (06:50→19:27)
[2016-04-29] MEDS: INSULIN ASPART 300 UNIT/3 ML PEN SUBQ SCH ×7 (07:50→20:48)
[2016-04-29] MEDS: ONDANSETRON 4 MG/2 ML VIAL IVP PRN ×2 (08:18→16:56)
[2016-04-29] MEDS: NICOTINE 21 MG PATCH TOP SCH (08:27)
[2016-04-29] MEDS: ENOXAPARIN 40 MG/0.4 ML SYRINGE SUBQ SCH (08:28)
[2016-04-29] MEDS: METOCLOPRAMIDE 10 MG/2 ML VIAL IVP PRN ×2 (11:39→19:25)
[2016-04-29] MEDS: INSULIN REGULAR HUMAN 100 UNIT in SODIUM CHLORIDE 0.9% 100ML 99 ML IV SCH (12:15)
[2016-04-29] MEDS ORDERED: INSULIN REGULAR HUMAN 100 UNIT/1 ML 10 ML MDV SUBQ ONE (12:30)
[2016-04-29] MEDS ORDERED: INSULIN REGULAR HUMAN 100 UNIT in SODIUM CHLORIDE 0.9% 100ML 99 ML IV SCH ×2 (13:00→18:00)
[2016-04-29] MEDS ORDERED: INSULIN REGULAR HUMAN 100 UNIT/1 ML 10 ML MDV IVP ONE (13:00)
[2016-04-29] MEDS ORDERED: OLANZapine ODT 5 MG TABLET TL SCH (13:00)
[2016-04-29] MEDS: clonazePAM 0.5 MG TABLET PO SCH ×2 (16:32→21:13)
[2016-04-29] MEDS: ACETAMINOPHEN 325 MG TABLET PO PRN (16:32)
[2016-04-29] MEDS: OLANZapine ODT 5 MG TABLET TL SCH ×2 (16:33→21:13)
[2016-04-29] MEDS: METHOCARBAMOL 500 MG TABLET PO PRN (19:25)
[2016-04-29] MEDS: PROPRANOLOL 10 MG TABLET PO SCH (20:43)
[2016-04-29] MEDS: LIDOCAINE PATCH 5% TOP PRN (21:33)
[2016-04-29] MEDS ORDERED: KETOROLAC 60 MG/2 ML VIAL IVP STA (22:12)
[2016-04-29] MEDS ORDERED: KETOROLAC 30 MG/ML VIAL IVP STA ×2 (22:34→22:35)
[2016-04-29] MEDS: PREGABALIN 25 MG CAPSULE PO SCH (22:47)
[2016-04-30] MEDS: LORazepam 2 MG/ML SYRINGE IVP PRN ×2 (00:11→06:13)
[2016-04-30] MEDS: ACETAMINOPHEN 325 MG TABLET PO PRN ×3 (00:54→21:29)
[2016-04-30] MEDS: clonazePAM 0.5 MG TABLET PO SCH ×3 (06:13→21:30)
[2016-04-30] MEDS: OLANZapine ODT 5 MG TABLET TL SCH ×3 (06:15→21:30)
[2016-04-30] MEDS: INSULIN ASPART 300 UNIT/3 ML PEN SUBQ SCH ×8 (08:06→21:12)
[2016-04-30] MEDS: INSULIN GLARGINE 300 UNIT/3 ML PEN SUBQ SCH ×2 (08:10→21:12)
[2016-04-30] MEDS: METOCLOPRAMIDE 10 MG/2 ML VIAL IVP PRN (08:11)
[2016-04-30] MEDS ORDERED: SERTRALINE 50 MG TABLET PO SCH (09:00)
[2016-04-30] MEDS: SODIUM CHLORIDE 0.9% 1,000 ML IV SCH (09:30)
[2016-04-30] MEDS: PREGABALIN 25 MG CAPSULE PO SCH (09:58)
[2016-04-30] MEDS: PROPRANOLOL 10 MG TABLET PO SCH ×2 (09:59→21:30)
[2016-04-30] MEDS: NICOTINE 21 MG PATCH TOP SCH (09:59)
[2016-04-30] MEDS: ENOXAPARIN 40 MG/0.4 ML SYRINGE SUBQ SCH (10:01)
[2016-04-30] MEDS ORDERED: POTASSIUM CHLORIDE 20 MEQ TABLET PO ONE (10:49)
[2016-04-30] MEDS ORDERED: METOCLOPRAMIDE 10 MG TABLET PO PRN (15:44)
[2016-04-30] MEDS ORDERED: DOCUSATE SODIUM 250 MG CAPSULE PO SCH (16:15)
[2016-04-30] MEDS: METHOCARBAMOL 500 MG TABLET PO PRN (17:06)
[2016-04-30] MEDS: LIDOCAINE PATCH 5% TOP PRN (19:55)
[2016-04-30] MEDS ORDERED: PROMETHAZINE 25 MG/1 ML VIAL IM SCH (20:46)
[2016-04-30] MEDS ORDERED: PREGABALIN 25 MG CAPSULE PO SCH (22:00)
[2016-04-30] MEDS ORDERED: PREGABALIN 100 MG CAPSULE PO SCH (22:00)
[2016-05-01] MEDS ORDERED: DOCUSATE SODIUM 250 MG CAPSULE PO SCH (09:00)
== END 2016-04-30 21:30 | disposition left against medical advice (07) | DRG 638 ==
DX: E10.10 Type 1 diabetes mellitus with ketoacidosis without coma (principal); E87.1 Hypo-osmolality and hyponatremia; E87.5 Hyperkalemia; I10 Essential (primary) hypertension; E10.42 Type 1 diabetes mellitus with diabetic polyneuropathy; G89.29 Other chronic pain; Z76.5 Malingerer [conscious simulation]; E78.00 Pure hypercholesterolemia, unspecified; E10.69 Type 1 diabetes mellitus with other specified complication; E10.51 Type 1 diabetes mellitus with diabetic peripheral angiopathy without gangrene; E10.621 Type 1 diabetes mellitus with foot ulcer; L97.519 Non-pressure chronic ulcer of other part of right foot with unspecified severity; F17.200 Nicotine dependence, unspecified, uncomplicated; F41.0 Panic disorder [episodic paroxysmal anxiety]; M79.7 Fibromyalgia; Z59.0 Homelessness; Z79.4 Long term (current) use of insulin; Z91.14 Patient's other noncompliance with medication regimen; Z79.51 Long term (current) use of inhaled steroids; Z79.899 Other long term (current) drug therapy; F15.10 Other stimulant abuse, uncomplicated; G31.84 Mild cognitive impairment of uncertain or unknown etiology; Z87.898 Personal history of other specified conditions

== ENCOUNTER 2016-04-30 22:05 | Emergency (ER) | payer MEDICAID ==
[2016-04-30] MEDS ORDERED: ACETAMINOPHEN 325 MG TABLET PO STA (23:20)
[2016-04-30] MEDS ORDERED: ACETAMINOPHEN 325 MG TABLET PO ONE (23:22)
== END 2016-04-30 23:33 | disposition home or self-care (01) ==
DX: M79.7 Fibromyalgia (principal); R52 Pain, unspecified; E10.42 Type 1 diabetes mellitus with diabetic polyneuropathy; E10.51 Type 1 diabetes mellitus with diabetic peripheral angiopathy without gangrene; Z79.4 Long term (current) use of insulin; I10 Essential (primary) hypertension; I25.2 Old myocardial infarction; F17.200 Nicotine dependence, unspecified, uncomplicated
CPT/HCPCS: 36415; 80053; 81003; 82009; 82803; 83690; 85025; 99282; 99283; A9270

== ENCOUNTER 2016-07-07 20:07 | Inpatient (IN) | payer MEDICAID ==
[2016-07-07] MEDS ORDERED: LORazepam 2 MG/ML SYRINGE IVP STA (20:40)
[2016-07-07] MEDS ORDERED: ELECTROLYTE-A SOLUTION 1,000 ML IV ONE (20:40)
--- NOTE | 2016-07-07 20:43 | ED Physician Documentation ---
History of Present Illness - Stated complaint Stated Complaint: DIABETIC - Chief complaint Chief Complaint: General - History obtained from History obtained from: Patient - History of Present Illness Timing: Yesterday (35-year-old woman with brittle diabetes and history of drug abuse presents with a chief complaint of "I think I'm in DKA again." She did miss a couple of doses of Lantus recently. Her blood sugars have been high. She denies shortness of breath a lot of anxiety and feels like she is in DKA. She states that someone may have given her some drugs yesterday. She thinks that made her anxiety worse.) Review of Systems Ten Systems: 10 systems reviewed and negative Constitutional: reports: Weight Loss. denies: Fever, Chills Nose: denies: Rhinorrhea / runny nose, Congestion Cardiac: denies: Chest pain / pressure, Palpitations Respiratory: reports: Dyspnea. denies: Cough PD PAST MEDICAL HISTORY - Past Medical History Cardiovascular: Hypertension, High cholesterol, Peripheral Vascular Disease, CT Respiratory: None Neuro: Peripheral neuropathy Endocrine/Autoimmune: Type 1 diabetes GI: Pancreatitis RV TECHNICIAN: None : None HEENT: None Psych: Depression, Anxiety, Panic attacks Musculoskeletal: Fibromyalgia Derm: None - Past Surgical History Past Surgical History: Yes General: Cholecystectomy HEENT: Tonsil/Adenoidectomy - Present Medications Home Medications: Ambulatory Orders Medication Instructions Recorded Confirmed Propranolol [Inderal] 10 mg PO BID 09/19/15 07/07/16 Insulin Aspart [Novolog Flexpen] 9 unit SQ TIDWM #1 insuln.pen 03/29/16 07/07/16 Insulin Glargine,Hum.rec.anlog 70 unit SUBQ BID #1 vial 03/29/16 07/07/16 [Lantus] Pantoprazole [Protonix] 40 mg PO QDAC #30 tablet 04/18/16 07/07/16 Fluticasone [Flonase] 2 spray NOE BID 04/22/16 07/07/16 Clonazepam [Klonopin] 2 mg PO TID 04/28/16 07/07/16 Methocarbamol 500 mg PO Q6H PRN 04/28/16 07/07/16 - Allergies Allergies/Adverse Reactions: Allergies Allergy/AdvReac Type Severity Reaction Status Date / Time codeine Allergy Hives Verified 07/07/16 20:19 hydrocodone Allergy Hives Verified 07/07/16 20:19 milk AdvReac Cramps Verified 07/07/16 20:19 nitrofurantoin AdvReac Headache Verified 07/07/16 20:19 [From Macrobid] PAPER TAPE AdvReac Unknown Uncoded 07/07/16 20:19 - Social History Does the pt smoke?: Yes Smoking Status: Current every day smoker Does the pt drink ETOH?: No Does the pt have substance abuse?: No - Family History Family history: reports: Non contributory - Immunizations Immunizations are current?: Yes - POLST Patient has POLST: No PD ED PE NORMAL - Vitals Vital signs reviewed: Yes (tachycardic, tachypneic) - General General: Alert and oriented X 3, Other (Kussmaul's) - HEENT HEENT: PERRL, EOMI - Neck Neck: Supple, no meningeal sign, No bony TTP - Cardiac Cardiac: RRR, No murmur - Respiratory Respiratory: Clear bilaterally, Other (tachypneic) - Abdomen Abdomen: Soft, Non tender - Back Back: No spinal TTP - Derm Derm: Normal color, Warm and dry - Extremities Extremities: No edema, No calf tenderness / cord - Neuro Neuro: Alert and oriented X 3, Normal speech - Psych Psych: Normal mood, Normal affect Results - Vitals Vitals: Vital Signs - 24 hr 07/07/16 07/07/16 07/07/16 20:14 21:05 21:35 Temperature 35.9 C L Heart Rate 132 H 125 H 125 H Respiratory 26 H 18 24 Rate Blood Pressure 147/82 H 145/88 H 151/92 H O2 Saturation 100 97 97 Oxygen O2 Source [Without Activity] Room air O2 Source Room air - Labs Labs: Laboratory Tests 07/07/16 07/07/16 07/07/16 20:41 20:41 20:41 WBC 10.3 RBC 5.23 Hgb 13.4 Hct 43.3 MCV 82.8 MCH 25.6 L MCHC 31.0 L RDW 14.8 Plt Count 322 MPV 8.5 Neut # 6.8 H Lymph # 2.9 Pettis # 0.5 Eos # 0.0 Baso # 0.1 Absolute Nucleated RBC 0.00 Nucleated RBCs 0.0 VBG pH 7.365 VBG pCO2 24.4 L VBG pO2 56.6 H VBG HCO3 13.6 L VBG Total CO2 14.4 L VBG O2 Saturation 88.6 H VBG Base Excess -9.7 L Sodium 125 L Potassium 4.4 Chloride 86 L Carbon Dioxide 12 L* Anion Gap 27.0 H BUN 24 H Creatinine 0.7 Estimated GFR (MDRD) 96 Glucose 700 H* Calcium 9.3 Total Bilirubin 1.8 H AST 13 ALT 22 Alkaline Phosphatase 167 H Total Protein 7.3 Albumin 4.1 Globulin 3.2 Albumin/Globulin Ratio 1.3 Lipase 22 Urine Color Urine Clarity Urine pH Ur Specific [place] Urine Protein Urine Glucose (UA) Urine Ketones Urine Occult Blood Urine Nitrite Urine Bilirubin Urine Urobilinogen Ur Leukocyte Esterase Ur Microscopic Review Urine Culture Comments Urine HCG, Qual Urine Opiates Screen Ur Oxycodone Screen Urine Methadone Screen Ur Propoxyphene Screen Ur Barbiturates Screen Ur Tricyclics Screen Ur Phencyclidine Scrn Ur Amphetamine Screen U Methamphetamines Scrn U Benzodiazepines Scrn Urine Cocaine Screen U Cannabinoids Screen Serum Ketones SMALL H 07/07/16 07/07/16 21:25 21:25 WBC RBC Hgb Hct MCV MCH MCHC RDW Plt Count MPV Neut # Lymph # Pettis # Eos # Baso # Absolute Nucleated RBC Nucleated RBCs VBG pH VBG pCO2 VBG pO2 VBG HCO3 VBG Total CO2 VBG O2 Saturation VBG Base Excess Sodium Potassium Chloride Carbon Dioxide Anion Gap BUN Creatinine Estimated GFR (MDRD) Glucose Calcium Total Bilirubin AST ALT Alkaline Phosphatase Total Protein Albumin Globulin Albumin/Globulin Ratio Lipase Urine Color YELLOW Urine Clarity CLEAR Urine pH 5.5 Ur Specific [place] 1.010 Urine Protein NEGATIVE Urine Glucose (UA) >=1000 H Urine Ketones >=80 H Urine Occult Blood NEGATIVE Urine Nitrite NEGATIVE Urine Bilirubin NEGATIVE Urine Urobilinogen 0.2 (NORMAL) Ur Leukocyte Esterase NEGATIVE Ur Microscopic Review NOT INDICATED Urine Culture Comments NOT INDICATED Urine HCG, Qual NEGATIVE Urine Opiates Screen NEGATIVE Ur Oxycodone Screen NEGATIVE Urine Methadone Screen NEGATIVE Ur Propoxyphene Screen NEGATIVE Ur Barbiturates Screen NEGATIVE Ur Tricyclics Screen NEGATIVE Ur Phencyclidine Scrn NEGATIVE Ur Amphetamine Screen POSITIVE H U Methamphetamines Scrn POSITIVE H U Benzodiazepines Scrn NEGATIVE Urine Cocaine Screen NEGATIVE U Cannabinoids Screen NEGATIVE Serum Ketones Procedures - General procedure General procedure: She is difficult for IV access, RN tried and failed. I personally placed an 18- gauge external jugular peripheral IV in the left external jugular after ChloraPrep which jose eduardo and flushed well. PD MEDICAL DECISION MAKING - ED course ED course: 35-year-old woman with recurrent DKA and brittle diabetes presents in DKA. She' s actually not that acidemic but her bicarbonate is quite low and glucose is quite high and she does have serum ketones. An IV was placed and she was given IV crystalloid an insulin drip was started. Spoke with Dr. Sandhu for admission at 908 p.m. She was vomiting and administered Phenergan, having a lot of anxiety for which she was administered Ativan. She requested Dilaudid for increasing fibromyalgia pain which was refused I don't think this is appropriate. - Critical Care Time(min): 38 Time Includes: Direct patient care, Review records, Reassess patient, Document care, Coordinate care, Medical consult, Family consult for tx jan Data interpretation: Labs, Pulse ox Procedures included in critical care time: Peripheral IV Procedures excluded from critical care time: EKG Departure - Departure Disposition: [facility] DC/Xfer Clinical Impression: DKA (diabetic ketoacidoses) Qualifiers: Diabetes mellitus type: type 1 Diabetes mellitus complication detail: without coma Qualified Code(s): E10.10 - Type 1 diabetes mellitus with ketoacidosis without coma Condition: Critical Discharge Date/Time: 07/07/16 21:56
[2016-07-07] MEDS ORDERED: ELECTROLYTE-A SOLUTION 2,000 ML IV ONE (20:45)
[2016-07-07] MEDS ORDERED: LORazepam 2 MG/ML SYRINGE ONE (20:45)
[2016-07-07 20:47] LABS: VBG BASE EXCESS -9.7 mmol/L (-2 - +2); VBG OXYGEN SATURATION 88.6 % (60-80); VBG PH 7.365 (7.31-7.41); VBG TOTAL CO2 14.4 mmol/L (24-29)
[2016-07-07] MEDS: ELECTROLYTE-A SOLUTION 1,000 ML IV SCH (20:49)
[2016-07-07 20:53] LABS: BASOPHILS # (AUTO) 0.1 10^3/uL (0.0-0.1); BASOPHILS % (AUTO) 0.6 %; EOSINOPHILS % (AUTO) 0.4 %; HCT - HEMATOCRIT 43.3 % (37.0-47.0); HGB - HEMOGLOBIN 13.4 g/dL (12.0-16.0); LYMPHOCYTES # (AUTO) 2.9 10^3/uL (1.5-3.5); LYMPHOCYTES % (AUTO) 27.9 %; MEAN CORPUSCULAR HEMOGLOBIN 25.6 pg (27.0-31.0); MEAN CORPUSCULAR VOLUME 82.8 fL (81.0-99.0); MEAN PLATELET VOLUME 8.5 fL (7.9-10.8); MONOCYTES # (AUTO) 0.5 10^3/uL (0.0-1.0); MONOCYTES % (AUTO) 4.9 %; NEUTROPHILS # (AUTO) 6.8 10^3/uL (1.5-6.6); NEUTROPHILS % (AUTO) 66.2 %; RED BLOOD COUNT 5.23 10^6/uL (4.20-5.40); RED CELL DISTRIBUTION WIDTH 14.8 % (12.0-15.0); UNCORRECTED WHITE BLOOD COUNT 10.3 x10^3/uL; WHITE BLOOD COUNT 10.3 x10^3/uL (4.8-10.8)
[2016-07-07] MEDS ORDERED: PROMETHAZINE INJ 25 MG in SODIUM CHLORIDE 0.9% 50 ML IV STA (20:55)
[2016-07-07] MEDS ORDERED: PROMETHAZINE 25 MG/1 ML VIAL ONE (20:58)
[2016-07-07 21:06] LABS: ALBUMIN/GLOBULIN RATIO 1.3 (1.0-2.2); BILIRUBIN,TOTAL 1.8 mg/dL (0.2-1.0); BUN - BLOOD UREA NITROGEN 24 mg/dL (6-20); CALCIUM 9.3 mg/dL (8.5-10.3); CHLORIDE 86 mmol/L (101-111); CREATININE 0.7 mg/dL (0.4-1.0); GFR - MDRD 96 (>89); LIPASE 22 U/L (22-51); POTASSIUM 4.4 mmol/L (3.5-5.0); SODIUM 125 mmol/L (135-145); TOTAL PROTEIN 7.3 g/dL (6.7-8.2)
[2016-07-07 21:07] LABS: CARBON DIOXIDE - CO2 12 mmol/L (21-32); GLUCOSE 700 mg/dL (70-100)
[2016-07-07] MEDS ORDERED: ACETAMINOPHEN 325 MG TABLET PO STA (21:07)
[2016-07-07] MEDS ORDERED: SODIUM CHLORIDE FLUSH 0.9% 10 ML SYRINGE IVP PRN (21:24)
[2016-07-07] MEDS ORDERED: ONDANSETRON ODT 4 MG TABLET TL PRN (21:24)
[2016-07-07] MEDS ORDERED: PROCHLORPERAZINE 10 MG/2 ML VIAL IVP PRN (21:24)
[2016-07-07] MEDS ORDERED: ONDANSETRON 4 MG/2 ML VIAL IVP PRN (21:24)
[2016-07-07] MEDS: oxyCODONE 5 MG TABLET PO PRN (21:53)
[2016-07-07] MEDS ORDERED: INSULIN REGULAR HUMAN 100 UNIT in SODIUM CHLORIDE 0.9% 100ML 99 ML IV SCH (22:00)
[2016-07-07 22:02] LABS: BILIRUBIN,URINE NEGATIVE (NEGATIVE); PH,URINE 5.5 PH (5.0-7.5)
[2016-07-07 22:03] LABS: UA CHARGE (STRIP ONLY) YES; UR CULTURE IF IND NOT INDICATED
[2016-07-07 22:04] LABS: HCG UR QUAL NEGATIVE
[2016-07-07] MEDS: SODIUM CHLORIDE FLUSH 0.9% 10 ML SYRINGE IVP SCH (22:45)
[2016-07-07 22:50] LABS: MAGNESIUM 1.9 mg/dL (1.7-2.8)
[2016-07-07] MEDS: AMITRIPTYLINE 25 MG TABLET PO PRN (23:56)
[2016-07-08] MEDS ORDERED: NICOTINE 7 MG PATCH TOP ONE
[2016-07-08] MEDS: ACETAMINOPHEN 325 MG TABLET PO PRN ×5 (00:01→19:15)
[2016-07-08] MEDS: NICOTINE 7 MG PATCH TOP SCH ×2 (00:01→12:43)
[2016-07-08 00:55] LABS: CALCIUM 8.3 mg/dL (8.5-10.3); CREATININE 0.7 mg/dL (0.4-1.0); MAGNESIUM 1.8 mg/dL (1.7-2.8); POTASSIUM 3.6 mmol/L (3.5-5.0)
[2016-07-08 00:56] LABS: HEMOGLOBIN A1C 1.64 g/dL
[2016-07-08] MEDS ORDERED: ELECTROLYTE-A SOLUTION 1,000 ML IV ONE (00:57)
[2016-07-08] MEDS: ELECTROLYTE-A SOLUTION 1,000 ML IV SCH (01:45)
[2016-07-08] MEDS: oxyCODONE 5 MG TABLET PO PRN ×5 (01:45→20:09)
[2016-07-08] MEDS ORDERED: POTASSIUM CHLORIDE INJ 40 MEQ in SODIUM CHLORIDE 0.9% 1,000 ML IV SCH (02:00)
[2016-07-08] MEDS: NS W/20 MEQ KCL 1,000 ML IV SCH ×2 (02:16→10:12)
--- NOTE | 2016-07-08 02:45 | HISTORY & PHYSICAL EXAMINATION ---
DATE OF ADMISSION: 07/07/2016 PRIMARY CARE PROVIDER: None. ADMITTING PROVIDER: Jillian Sandhu MD. CHIEF COMPLAINT: "I think I'm in DKA." HISTORY OF PRESENT ILLNESS: The patient is a 35-year-old white female who is homeless. She has been a dmitted to this hospital for DKA secondary to noncompliance with the use of medications, abuse of pre scription medications, and use of methamphetamines. She has also been admitted at least twice with se franki hypothermia because of her homelessness state. With her last admission, it was felt that she acc identally overdosed on opiates, had a near respiratory arrest, was hypothermic to 28 degrees. Chino rutledge was brought back up to normal, her DKA was treated, and she left AMA wanting pain medications. S he had been in a pain contract pain clinic probably over 1-1/2 years ago and was discharged from the pain clinic for violating her pain contract. At this time, the patient is not to receive opiates. She usually uses opiates for "fibromyalgia." With this admission, she "felt like she was in DKA." She is nonspecific about tachypnea, tachycardia, nausea, vomiting, abdominal pain. In fact, denies all of t hose problems. She states that someone "slipped her some drugs yesterday." She thought it was an herb al oil, but in retrospect, whatever it was made her feel "funny." With her evaluation by Dr. Grace in the emergency room, she had a temperature of 35.9, pulse of 132, blood pressure 147/82. She is mildly tachypneic at 26 and 100% room air saturation. She is hyponatre matilde, anion gap of 27, with a carbon dioxide of 12. Random glucose is 700. PAST MEDICAL HISTORY 1. Diabetes mellitus since 1999, type 1, uncontrolled, noncompliance with long-term use of insulin an d has peripheral vascular disease, chronic kidney disease and neuropathy. 2. Chronic pain syndrome from fibromyalgia. 3. Chronic tachycardia. 4. Hypertension. 5. Psychiatric disease. 6. Short-term memory loss. 7. G22, P1-0-2-1. 8. Cyst removed from left oriental orthodox at age 6. 9. Tonsillectomy at age 9. 10. Cholecystectomy at age 16. 11. Valvular heart disease with moderate pulmonary hypertension, moderate tricuspid regurgitation, an d a right ventricle that is dilated on echo in 12/2015. 12. Chronic foot ischemia. ALLERGIES 1. CODEINE. 2. HYDROCODONE. 3. MACROBID. CURRENT MEDICATIONS: Lantus 70 units subcutaneous b.i.d. She is not taking any other medications that she is aware of. SOCIAL HISTORY: She has no history of alcohol abuse. However, she has a history of amphetamine and me thamphetamine abuse, occasional cannabis use. She also has prescription narcotic abuse. She is homele . She was living in [place], [place]. She was incarcerated there, lost custody of her child. The chil d went to go live with her father and stepmother here in [place]. She sought to "reestablish a con nection" with her father and child and moved to [place] herself. At the time she lived with her fa ther, it was a chaotic, tumultuous relationship. Multiple police calls to the house. Father in [employer] late 01/2016 or early 02/2016 and her stepmother threw her out of the house, so the patient has been homeless since 02/2016. Her children are in custody of her stepmother. FAMILY HISTORY: Dad had coronary artery disease, diabetes, multiple MIs. He had a stroke, which was t he cause of his . He was in his 70s. father is unknown. She has no siblings. Her children are healthy. REVIEW OF SYSTEMS Difficult to obtain, as the patient is crying, insisting that we give her her opiates and that we giv e them to her now. The short review of systems I could obtain for her is ENT: Without blindness. She has no teeth. She says that she feels numbness and tingling all over, as well as her face and lips. That is chronic. PULMONARY: Occasional cough, but she says she is not coughing right now. She has no congestion and no chest pain. CARDIAC: She denies leg edema, shortness of breath. Endurance is minimal. She says that being homeles s, she spends most of her time sleeping in her tent and rarely needs to get up and walk for very far. She really cannot tell me if she has dyspnea on exertion. She denies palpitations, chest hurts all t he time, 14/09. ABDOMEN: Abdominal pain is intermittent, worse with DKA. Usually associated with nausea and vomiting. With this episode, there is minimal complaints in this area. She denies diarrhea or blood in her sto ol. GENITOURINARY: Denies urgency, frequency, dysuria, hematuria, flank pain. JOINTS: Hurt all over. "Everything hurts." She says all of her joints, all of her muscles hurt. Again , she asked for opiates. SKIN: Denies any body rashes, new lesions. PSYCHIATRIC: She says that she is very, very anxious. That is how she knows that somebody slipped her some drugs yesterday because she suddenly started feeling anxious for no reason. She could not drug tell if it was the drug they gave her or going to DKA. ANIMAL STICKER: Denies syncope, seizures. PHYSICAL EXAMINATION VITAL SIGNS: She has received an insulin drip and 2 liters of IV fluid in the ED. Pulse is still 123. Blood pressure 142/86. Respirations are now down to 24. She is 96% on room air. GENERAL: She is a short stature, slender young white female who looks much, much older than stated ag e. She is with generalized disheveled appearance, ungroomed hair, edentulous, curled over on her righ t side in the position. She immediately wakens when I walk in the room and asks for Dilaudid IV . HEENT: Normocephalic, atraumatic. Pupils are reactive. Again, edentulous, no facial asymmetry. Furrow ed brow. NECK: Shotty adenopathy, but is supple. LUNGS: Clear with coarse upper airway sounds. No tachypnea, no increased labored breathing when talki ng to me. No crackles, rhonchi, or wheezing. CARDIOVASCULAR: PMI is normally placed with a hard knocking S1 on the right side of her parasternal b order. It may be an RV lift. Is tachycardic. ABDOMEN: Soft, firm, nondistended. Normal bowel sounds. She has mild aching with palpation in all joseph drants, but no masses are palpable. No rebound, no guarding. EXTREMITIES: Toes of both feet are covered in dirt, the soles of her feet are covered in dirt. It is difficult to assess for cyanosis. The foot pulses are minimally palpable and dorsalis pedis. She has no clubbing. Both hands and feet are cold to touch. I am going to have the nurses clean her feet real ly well so I can assess for cyanosis, as well as for the ischemia she had before. NEUROLOGIC: She is alert to person, place, not time. She does not remember the date. She thinks it is Wednesday, but she can follow 1 step command. She has no focal deficits. LABORATORY: Sodium was 125, potassium 4.4, carbon dioxide is 12, anion gap 27, BUN 24, creatinine 0.7 . Random glucose 700, calcium 9.3, total bilirubin 1.8, alkaline phosphatase 167. AST and ALT are nor mal, protein 7.3, white cell count 10.3, hemoglobin 13.4, hematocrit 43, platelets 322. Venous blood gas is pH 7.36, pCO2 24. Venous bicarbonate 13.6, base excess -9.7. Urinalysis has been ordered, urin e tox screen has been ordered, urine for HCG has been ordered. ASSESSMENT AND PLAN 1. Type [address] in ICU, continue IV hydration, and start insulin drip. Monitor electrolytes closely and adjust as needed. 2. Hyponatremia with anticipated change in calcium, magnesium, phosphorus. Electrolyte replacement pr otocol will be initiated. 3. History of prescription drug abuse and opiate overdose. I have explained to her that she will not be getting any opiates other than oral oxycodone while she is here, which be on a p.r.n. basis. We wi ll try tramadol and Lyrica. 4. FULL CODE STATUS. 5. Deep venous thrombosis prophylaxis: OZZIE monteiro. JOB #: [id number] EXT JOB #:[id number]
[2016-07-08 05:50] LABS: BASOPHILS % (AUTO) 0.6 %; EOSINOPHILS # (AUTO) 0.1 10^3/uL (0.0-0.7); EOSINOPHILS % (AUTO) 1.1 %; HCT - HEMATOCRIT 37.9 % (37.0-47.0); HGB - HEMOGLOBIN 12.3 g/dL (12.0-16.0); LYMPHOCYTES # (AUTO) 3.3 10^3/uL (1.5-3.5); LYMPHOCYTES % (AUTO) 45.7 %; MEAN CORPUSCULAR HEMOGLOBIN 25.6 pg (27.0-31.0); MEAN CORPUSCULAR HGB CONC 32.5 g/dL (32.0-36.0); MEAN CORPUSCULAR VOLUME 78.7 fL (81.0-99.0); MEAN PLATELET VOLUME 7.9 fL (7.9-10.8); MONOCYTES # (AUTO) 0.4 10^3/uL (0.0-1.0); MONOCYTES % (AUTO) 5.2 %; NEUTROPHILS # (AUTO) 3.4 10^3/uL (1.5-6.6); NEUTROPHILS % (AUTO) 47.4 %; RED BLOOD COUNT 4.82 10^6/uL (4.20-5.40); UNCORRECTED WHITE BLOOD COUNT 7.2 x10^3/uL; WHITE BLOOD COUNT 7.2 x10^3/uL (4.8-10.8)
[2016-07-08] MEDS: PANTOPRAZOLE 40 MG TABLET PO SCH (06:05)
[2016-07-08 06:08] LABS: CALCIUM 8.2 mg/dL (8.5-10.3); CREATININE 0.3 mg/dL (0.4-1.0); MAGNESIUM 1.8 mg/dL (1.7-2.8); PHOSPHORUS 2.9 mg/dL (2.5-4.6); POTASSIUM 3.3 mmol/L (3.5-5.0)
[2016-07-08] MEDS ORDERED: POTASSIUM CHLORIDE 20 MEQ TABLET PO ONE (06:12)
[2016-07-08] MEDS: SODIUM CHLORIDE FLUSH 0.9% 10 ML SYRINGE IVP SCH ×3 (06:29→20:57)
[2016-07-08] MEDS ORDERED: INSULIN GLARGINE 300 UNIT/3 ML PEN SUBQ SCH ×2 (07:00→21:00)
[2016-07-08] MEDS: INSULIN ASPART 300 UNIT/3 ML PEN SUBQ SCH ×7 (08:05→20:56)
[2016-07-08] MEDS ORDERED: FLUCONAZOLE 100 MG TABLET PO ONE (09:30)
[2016-07-08] MEDS: NYSTATIN CREAM 15 GM TUBE TOP SCH ×2 (09:56→20:57)
[2016-07-08] MEDS ORDERED: INSULIN ASPART 300 UNIT/3 ML PEN SUBQ ONE ×2 (10:30→13:30)
[2016-07-08] MEDS: PROPRANOLOL 10 MG TABLET PO SCH ×2 (11:26→20:09)
[2016-07-08] MEDS: METHOCARBAMOL 500 MG TABLET PO PRN ×2 (13:26→22:22)
[2016-07-08] MEDS: POLYETHYLENE GLYCOL 3350 17 GM PACKET PO SCH (13:27)
--- NOTE | 2016-07-08 16:53 | PROVIDER PROGRESS NOTE ---
Assessment/Plan - Problem List (1) DKA (diabetic ketoacidoses) Qualifiers: Diabetes mellitus type: type 1 Diabetes mellitus complication detail: without coma Qualified Code(s): E10.10 - Type 1 diabetes mellitus with ketoacidosis without coma Assessment/Plan: Patient presented with DKA and was placed on insulin drip Patients DKA had resolved last night therefore was placed in subq insulin this am After breakfast patients BS began to rise up to 300s Increased meal time novolog to 9 units TID Continued on home lantus 70 units BID A1C of 12.9 Diabetic diet Will transfer to Med/Surg if BS remain stable Qualifiers: Diabetes mellitus type: type 1 Diabetes mellitus complication detail: without coma Qualified Code(s): E10.10 - Type 1 diabetes mellitus with ketoacidosis without coma (2) High anion gap metabolic acidosis Assessment/Plan: Secondary to DKA Resolved this am (3) Hypertension Assessment/Plan: Started on home dose of Atenolol Patients BP elevated this afternoon Will continue to monitor if still elevated will consider adding another medication (4) Anxiety Assessment/Plan: Placed on home meds and prn ativan (5) Chronic pain Assessment/Plan: On oxycodone Pain uncontrolled but given history of meth abuse and drug seeking behavior will avoid IV pain meds (6) Tobacco Abuse Assessment/Plan: Patient continues to smoke Counselled and given nicotine patch (7) Methamphetamine Abuse Assessment/Plan: Patient counselled and placed on ativan incase of withdrawal - Current Meds Current Meds: Current Medications Generic Name Dose Route Start Last Admin Trade Name Freq PRN Reason Stop Dose Admin Acetaminophen 650 mg 07/07/16 21:24 07/08/16 14:18 Tylenol PO 650 mg Q4HR PRN Administration Pain 1 to 4 Amitriptyline HCl 25 mg 07/07/16 23:17 07/07/16 23:56 Elavil PO 25 mg QPM PRN Administration Insomnia Insulin Aspart 3 - 11 unit 07/08/16 08:00 07/08/16 11:57 Novolog SUBQ 9 unit 0800,1200,1700,2100 SYLVIA Administration Protocol Methocarbamol 500 mg 07/08/16 10:07 07/08/16 13:26 Robaxin PO 500 mg Q6H PRN Administration PAIN Nystatin 1 applic 07/08/16 09:00 07/08/16 09:56 Mycostatin Cream TOP 1 applic BID SYLVIA Administration Ondansetron HCl 4 mg 07/07/16 21:24 07/07/16 22:54 Zofran Inj IVP 4 mg Q6HR PRN Administration Nausea / Vomiting Oxycodone HCl 5 mg 07/07/16 21:24 07/08/16 14:18 Roxicodone PO 5 mg Q4HR PRN Administration Pain 5 to 7 Pantoprazole Sodium 40 mg 07/08/16 07:00 07/08/16 06:05 Protonix PO 40 mg QDAC SYLVIA Administration Polyethylene Glycol 17 gm 07/08/16 13:00 07/08/16 13:27 Miralax PO 17 gm DAILY SYLVIA Administration Propranolol HCl 10 mg 07/08/16 11:00 07/08/16 11:26 Inderal PO 10 mg BID SYLVIA Administration Sodium Chloride 10 ml 07/07/16 21:24 07/08/16 07:51 Normal Saline Flush 0.9% IVP 10 ml PRN PRN Administration NEEDED PER PROVIDER ORDERS Sodium Chloride 10 ml 07/07/16 22:00 07/08/16 06:29 Normal Saline Flush 0.9% IVP 10 ml Q8HR SYLVIA Administration - Lab Result Lab results reviewed: Yes Fish Bone Diagrams: 07/08/16 04:56 07/08/16 04:56 - EKG Results EKG Interpreted Independently: Yes - Diagnostic Imaging Results Diagnostic Imaging Results: positive: Final report reviewed - Additional Planning My Orders: My Active Orders 07/08/16 09:00 Nystatin Cream [Mycostatin Cream] 1 applic TOP BID 07/08/16 10:07 Methocarbamol [Robaxin] 500 mg PO Q6H PRN 07/08/16 11:00 Propranolol [Inderal] 10 mg PO BID 07/08/16 12:26 Insulin Aspart [NovoLOG] 9 unit SUBQ TIDWM 07/08/16 13:00 Polyethylene Glycol 3350 [Miralax] 17 gm PO DAILY 07/08/16 16:30 Nicotine 21 mg Patch [Nicoderm] 1 patch TOP DAILY 07/08/16 16:32 LORazepam INJ [Ativan Inj] 1 mg IVP Q6H PRN 07/08/16 17:00 Ketorolac Inj [Toradol Inj] 30 mg IVP ONCE ONE Subjective - Subjective Patient Reports: Headache (Has headaches), Pain (Complaining of pain in back and all over body.), Other (Patient is very hungry, ate whole breakfast but wants more food.) Nursing Reports: No Complaints Objective Vital Signs: Vital Signs - 24 hr 07/07/16 07/07/16 07/07/16 21:52 22:15 23:10 Temperature 36.9 C Heart Rate 123 H Heart Rate [ 130 H 137 H Monitoring electrodes] Respiratory 24 30 H 24 Rate Blood Pressure 142/86 H Blood Pressure 153/86 H [Left Brachial artery] O2 Saturation 96 97 07/08/16 07/08/16 07/08/16 00:00 00:53 01:55 Temperature 36.9 C Heart Rate Heart Rate [ 123 H 116 H 111 H Monitoring electrodes] Respiratory 20 18 17 Rate Blood Pressure Blood Pressure 140/89 H 139/88 H 129/84 H [Left Brachial artery] O2 Saturation 97 96 97 07/08/16 07/08/16 07/08/16 02:58 03:55 05:00 Temperature 36.6 C Heart Rate Heart Rate [ 117 H 108 H 104 H Monitoring electrodes] Respiratory 18 18 15 Rate Blood Pressure Blood Pressure 141/75 H 125/82 H 133/92 H [Left Brachial artery] O2 Saturation 97 95 95 07/08/16 07/08/16 07/08/16 06:00 06:53 08:00 Temperature Heart Rate Heart Rate [ 109 H 106 H 114 H Monitoring electrodes] Respiratory 20 13 26 H Rate Blood Pressure Blood Pressure 133/92 H 131/83 H 150/98 H [Left Brachial artery] O2 Saturation 95 07/08/16 07/08/16 07/08/16 09:00 09:50 11:00 Temperature 36.8 C Heart Rate Heart Rate [ 117 H 114 H 103 H Monitoring electrodes] Respiratory 21 18 11 L Rate Blood Pressure Blood Pressure 133/99 H 159/115 H 133/89 H [Left Brachial artery] O2 Saturation 98 100 97 07/08/16 07/08/16 07/08/16 12:00 12:46 12:50 Temperature Heart Rate Heart Rate [ 109 H 105 H 107 H Monitoring electrodes] Respiratory 24 17 20 Rate Blood Pressure Blood Pressure 168/108 H 163/107 H 163/107 H [Left Brachial artery] O2 Saturation 98 98 98 07/08/16 07/08/16 07/08/16 13:48 14:59 16:00 Temperature 37.6 C H Heart Rate Heart Rate [ 95 98 103 H Monitoring electrodes] Respiratory 18 25 H 14 Rate Blood Pressure Blood Pressure 139/94 H 154/100 H 134/90 H [Left Brachial artery] O2 Saturation 92 99 98 Oxygen O2 Source Room air I&O (Last 24 Hrs): Intake and Output Totals x24h 07/06/16 07/07/16 07/08/16 23:59 23:59 23:59 Intake Total 7508 Output Total 3900 Balance 3608 General: Alert, Oriented x3, Mild distress (pain and headache) HEENT: Atraumatic, PERRLA, EOMI, Mucous membr. moist/pink Neck: Supple, No JVD, No thyromegaly, +2 carotid pulse wo bruit, No LAD Lymphatic: no adenopathy Neuro: Alert, Non Focal, CN 2-12 Grossly Intact, Oriented Times 3 Cardiovascular: Normal S1, Normal S2, No murmurs, Other (tachycardic) Respiratory: Chest non-tender, No respiratory distress, Breath sounds nml Abdomen: Normal bowel sounds, Soft, No tenderness, No hepatospenomegaly Extremities: No clubbing, No cyanosis, No edema, Normal pulses, No tenderness/ swelling Skin: No rashes, No breakdown, No significant lesion - Results Results: Laboratory Results WBC 7.2 x10^3/uL (4.8-10.8) 07/08/16 04:56 RBC 4.82 10^6/uL (4.20-5.40) 07/08/16 04:56 Hgb 12.3 g/dL (12.0-16.0) 07/08/16 04:56 Hct 37.9 % (37.0-47.0) 07/08/16 04:56 MCV 78.7 fL (81.0-99.0) L 07/08/16 04:56 MCH 25.6 pg (27.0-31.0) L 07/08/16 04:56 MCHC 32.5 g/dL (32.0-36.0) 07/08/16 04:56 RDW 15.0 % (12.0-15.0) 07/08/16 04:56 Plt Count 264 10^3/uL (130-450) 07/08/16 04:56 MPV 7.9 fL (7.9-10.8) 07/08/16 04:56 Neut # 3.4 10^3/uL (1.5-6.6) 07/08/16 04:56 Lymph # 3.3 10^3/uL (1.5-3.5) 07/08/16 04:56 Ward # 0.4 10^3/uL (0.0-1.0) 07/08/16 04:56 Eos # 0.1 10^3/uL (0.0-0.7) 07/08/16 04:56 Baso # 0.0 10^3/uL (0.0-0.1) 07/08/16 04:56 Absolute Nucleated RBC 0.00 x10^3/uL 07/08/16 04:56 Nucleated RBCs 0.0 /100WBC 07/08/16 04:56 VBG pH 7.365 (7.31-7.41) 07/07/16 20:41 VBG pCO2 24.4 mmHg (41-51) L 07/07/16 20:41 VBG pO2 56.6 mmHg (25-47) H 07/07/16 20:41 VBG HCO3 13.6 mmol/L (23-28) L 07/07/16 20:41 VBG Total CO2 14.4 mmol/L (24-29) L 07/07/16 20:41 VBG O2 Saturation 88.6 % (60-80) H 07/07/16 20:41 VBG Base Excess -9.7 mmol/L (-2 - +2) L 07/07/16 20:41 Sodium 135 mmol/L (135-145) 07/08/16 04:56 Potassium 3.3 mmol/L (3.5-5.0) L 07/08/16 04:56 Chloride 103 mmol/L (101-111) 07/08/16 04:56 Carbon Dioxide 25 mmol/L (21-32) 07/08/16 04:56 Anion Gap 7.0 (6-13) 07/08/16 04:56 BUN 14 mg/dL (6-20) 07/08/16 04:56 Creatinine 0.3 mg/dL (0.4-1.0) L 07/08/16 04:56 Estimated GFR (MDRD) 255 (>89) 07/08/16 04:56 Glucose 160 mg/dL (70-100) H 07/08/16 04:56 Glycated Hemoglobin 12.9 % (4.6-6.2) H 07/07/16 20:41 Estim Average Glucose 324 (70-100) H 07/07/16 20:41 Calcium 8.2 mg/dL (8.5-10.3) L 07/08/16 04:56 Phosphorus 2.9 mg/dL (2.5-4.6) 07/08/16 04:56 Magnesium 1.8 mg/dL (1.7-2.8) 07/08/16 04:56 Total Bilirubin 1.8 mg/dL (0.2-1.0) H 07/07/16 20:41 AST 13 IU/L (10-42) 07/07/16 20:41 ALT 22 IU/L (10-60) 07/07/16 20:41 Alkaline Phosphatase 167 IU/L (42-121) H 07/07/16 20:41 Total Protein 7.3 g/dL (6.7-8.2) 07/07/16 20:41 Albumin 4.1 g/dL (3.2-5.5) 07/07/16 20:41 Globulin 3.2 g/dL (2.1-4.2) 07/07/16 20:41 Albumin/Globulin Ratio 1.3 (1.0-2.2) 07/07/16 20:41 Lipase 22 U/L (22-51) 07/07/16 20:41 Urine Color YELLOW 07/07/16 21:25 Urine Clarity CLEAR (CLEAR) 07/07/16 21:25 Urine pH 5.5 PH (5.0-7.5) 07/07/16 21:25 Ur Specific [place] 1.010 (1.002-1.030) 07/07/16 21:25 Urine Protein NEGATIVE mg/dL (NEGATIVE) 07/07/16 21:25 Urine Glucose (UA) >=1000 mg/dL (NEGATIVE) H 07/07/16 21:25 Urine Ketones >=80 mg/dL (NEGATIVE) H 07/07/16 21:25 Urine Occult Blood NEGATIVE (NEGATIVE) 07/07/16 21:25 Urine Nitrite NEGATIVE (NEGATIVE) 07/07/16 21:25 Urine Bilirubin NEGATIVE (NEGATIVE) 07/07/16 21:25 Urine Urobilinogen 0.2 (NORMAL) E.U./dL (NORMAL) 07/07/16 21:25 Ur Leukocyte Esterase NEGATIVE (NEGATIVE) 07/07/16 21:25 Ur Microscopic Review NOT INDICATED 07/07/16 21:25 Urine Culture Comments NOT INDICATED 07/07/16 21:25 Urine HCG, Qual NEGATIVE 07/07/16 21:25 Urine Opiates Screen NEGATIVE (NEGATIVE) 07/07/16 21:25 Ur Oxycodone Screen NEGATIVE (NEGATIVE) 07/07/16 21:25 Urine Methadone Screen NEGATIVE (NEGATIVE) 07/07/16 21:25 Ur Propoxyphene Screen NEGATIVE (NEGATIVE) 07/07/16 21:25 Ur Barbiturates Screen NEGATIVE (NEGATIVE) 07/07/16 21:25 Ur Tricyclics Screen NEGATIVE (NEGATIVE) 07/07/16 21:25 Ur Phencyclidine Scrn NEGATIVE (NEGATIVE) 07/07/16 21:25 Ur Amphetamine Screen POSITIVE (NEGATIVE) H 07/07/16 21:25 U Methamphetamines Scrn POSITIVE (NEGATIVE) H 07/07/16 21:25 U Benzodiazepines Scrn NEGATIVE (NEGATIVE) 07/07/16 21:25 Urine Cocaine Screen NEGATIVE (NEGATIVE) 07/07/16 21:25 U Cannabinoids Screen NEGATIVE (NEGATIVE) 07/07/16 21:25 Serum Ketones SMALL (NEGATIVE) H 07/07/16 20:41 - Procedures Procedures: Procedures INSERT INFUSION DEV IN R INT JUGULAR VEIN, PERC (04/21/16) INSERTION OF INFUSION DEV INTO SUP VENA CAVA, PERC APPROACH (03/27/16) INSERTION OF INFUSION DEVICE INTO R ATRIUM, PERC APPROACH (12/04/15) TRANSFUSE NONAUT RED BLOOD CELLS IN PERIPH VEIN, PERC (04/21/16) ULTRASONOGRAPHY OF RIGHT JUGULAR VEINS, GUIDANCE (04/21/16)
[2016-07-08] MEDS: LORazepam 2 MG/ML SYRINGE IVP PRN ×2 (16:54→22:23)
[2016-07-08] MEDS ORDERED: KETOROLAC 30 MG/ML VIAL IVP ONE (17:00)
[2016-07-08] MEDS: NICOTINE 21 MG PATCH TOP SCH (17:03)
[2016-07-08] MEDS: AMITRIPTYLINE 25 MG TABLET PO PRN (20:09)
[2016-07-09] MEDS: oxyCODONE 5 MG TABLET PO PRN ×4 (03:43→12:01)
[2016-07-09] MEDS: METHOCARBAMOL 500 MG TABLET PO PRN ×2 (04:54→11:06)
[2016-07-09 05:08] LABS: BASOPHILS % (AUTO) 0.7 %; EOSINOPHILS # (AUTO) 0.1 10^3/uL (0.0-0.7); EOSINOPHILS % (AUTO) 1.4 %; HCT - HEMATOCRIT 32.3 % (37.0-47.0); HGB - HEMOGLOBIN 10.6 g/dL (12.0-16.0); LYMPHOCYTES % (AUTO) 64.4 %; MEAN CORPUSCULAR HGB CONC 32.9 g/dL (32.0-36.0); MEAN CORPUSCULAR VOLUME 79.1 fL (81.0-99.0); MEAN PLATELET VOLUME 7.7 fL (7.9-10.8); MONOCYTES # (AUTO) 0.3 10^3/uL (0.0-1.0); MONOCYTES % (AUTO) 5.5 %; NEUTROPHILS # (AUTO) 1.3 10^3/uL (1.5-6.6); NUCLEATED RED BLOOD CELLS AUTO 0.1 /100WBC; RED BLOOD COUNT 4.08 10^6/uL (4.20-5.40); RED CELL DISTRIBUTION WIDTH 14.7 % (12.0-15.0); UNCORRECTED WHITE BLOOD COUNT 4.7 x10^3/uL; WHITE BLOOD COUNT 4.7 x10^3/uL (4.8-10.8)
[2016-07-09 05:18] LABS: CREATININE 0.3 mg/dL (0.4-1.0); MAGNESIUM 1.8 mg/dL (1.7-2.8); PHOSPHORUS 2.6 mg/dL (2.5-4.6); POTASSIUM 4.4 mmol/L (3.5-5.0)
[2016-07-09 05:40] LABS: PLATELET ESTIMATE, MANUAL NORMAL (130-450,000) (NORMAL); PLATELET MORPHOLOGY NORMAL APPEARANCE (NORMAL)
[2016-07-09] MEDS: PANTOPRAZOLE 40 MG TABLET PO SCH (06:02)
[2016-07-09] MEDS: ACETAMINOPHEN 325 MG TABLET PO PRN ×2 (06:05→11:07)
[2016-07-09] MEDS: LORazepam 2 MG/ML SYRINGE IVP PRN (06:06)
[2016-07-09] MEDS: SODIUM CHLORIDE FLUSH 0.9% 10 ML SYRINGE IVP SCH (06:58)
--- NOTE | 2016-07-09 07:34 | Discharge Plan ---
Discharge Plan Disposition: Home, Self Care Condition: Fair Prescriptions: oxyCODONE [Roxicodone] 5 mg PO Q4HR PRN #10 tablet PRN Reason: Pain 5 to 7 Insulin Glargine,Hum.rec.anlog [Lantus] 70 unit SUBQ BID #2 vial Methocarbamol 500 mg PO Q6H PRN #20 tablet PRN Reason: Pain Nystatin Cream [Mycostatin Cream] 1 applic TOP BID #1 tube Insulin Aspart [NovoLOG] 9 unit SUBQ TIDWM #2 pen Insulin Aspart [Novolog Flexpen] 9 unit SQ TIDWM #2 insuln.pen Diet: Diabetic Activity Restrictions: Activity as Tolerated Shower Restrictions: No Driving Restrictions: No Weight Bearing: Full Weight Additional Instructions or Follow Up instructions: You presented with DKA and it has now resolved. You had run out of your insulin. I have written you prescriptions for your insulin. Please follow up with your PCP. No Smoking: If you smoke, Please STOP! Call for help.
[2016-07-09] MEDS ORDERED: INSULIN GLARGINE 300 UNIT/3 ML PEN SUBQ SCH (08:00)
[2016-07-09] MEDS: INSULIN ASPART 300 UNIT/3 ML PEN SUBQ SCH ×4 (08:14→11:58)
[2016-07-09] MEDS: PROPRANOLOL 10 MG TABLET PO SCH (08:15)
[2016-07-09] MEDS: POLYETHYLENE GLYCOL 3350 17 GM PACKET PO SCH (08:16)
[2016-07-09] MEDS: NICOTINE 21 MG PATCH TOP SCH (08:19)
[2016-07-09] MEDS: NYSTATIN CREAM 15 GM TUBE TOP SCH (08:27)
[2016-07-09] MEDS ORDERED: NICOTINE 21 MG PATCH TOP SCH (09:00)
[2016-07-09 11:46] VITALS: BP 129/76
--- NOTE | 2016-07-09 15:40 | DISCHARGE SUMMARY ---
DATE OF ADMISSION: 07/07/2016 DATE OF DISCHARGE: 07/09/2016 PRIMARY CARE PHYSICIAN: Hakeem Cleveland MD. DISCHARGE DIAGNOSES: 1. Diabetic ketoacidosis. 2. High anion gap metabolic acidosis. 3. Hypertension. 4. Anxiety. 5. Chronic pain. 6. Tobacco abuse. 7. Methamphetamine abuse. DISCHARGE MEDICATIONS: 1. Lantus 70 units subcutaneously b.i.d.. 2. NovoLog 9 units subcutaneous t.i.d. with meals. 3. Methocarbamol 500 mg p.o. q.6h. p.r.n. for back spasms. 4. Nystatin cream 1 application topically b.i.d.. 5. Oxycodone 5 mg p.o. q.4h. p.r.n. for pain. 6. Klonopin 2 mg p.o. t.i.d.. 7. Flonase 2 sprays each nostril b.i.d.. 8. Protonix 40 mg p.o. daily. 9. Propranolol 10 mg p.o. b.i.d.. HOSPITAL COURSE: The patient is a 35-year-old female with a past medical history significant for type 1 diabetes with multiple hospitalizations for DKA, chronic pain syndrome, chronic tachycardia, hypertension, anxiety, depression, tobacco abuse and methamphetamine abuse, who presented to the emergency department with a chief complaint of being in DKA. The patient stated that she felt funny and that somebody had given her drugs the prior day. She stated that she had missed several doses of her Lantus as she had run out of Lantus. The patient on presentation to the emergency department, had a random glucose of 700 , her U-tox screen was positive for methamphetamine and she was in DKA with anion gap metabolic acidosis. The patient was placed on insulin drip and admitted to the ICU. The patient did recover from her DKA within 12 hours of being placed in the ICU. The patient's sugars, however, continued to be uncontrolled and we did have to make some adjustment on her mealtime NovoLog. The patient's sugars on the day of discharge were better controlled and the patient was feeling much better. She was discharged home and given a script for Lantus and NovoLog as she stated that she had run out. The patient was given counseling on tobacco abuse and methamphetamine abuse. Also, she was given counseling on need to be compliant with her medications. The patient was also told to followup with her primary care physician. The patient was discharged in stable condition and will followup with her PCP. PHYSICAL EXAMINATION AT DISCHARGE: VITAL SIGNS: Temperature 36.6, heart rate 91, blood pressure 129/76, respiratory rate 20, O2 saturation 97% on room air. GENERAL: The patient is alert and able to answer my questions. She does not appear to be in any acute distress at the moment. HEENT: Pupils are equal and reactive to light. Extraocular muscles are intact. Mucous membranes are moist. There is no conjunctival pallor or scleral icterus noted. NECK: Supple. No thyromegaly. No JVD. Trachea is midline. LYMPH NODES: There is no cervical or axillary lymphadenopathy noted. CARDIOVASCULAR: S1, S2. Regular rate and rhythm. No murmurs, rubs, or gallops. LUNGS: Clear to auscultation bilaterally. No wheezes, rhonchi, or crackles. ABDOMEN: Soft, nontender, nondistended. Bowel sounds are present in all 4 quadrants. EXTREMITIES: There is no lower extremity edema. Peripheral pulses are palpable. There is no cyanosis or clubbing. SKIN: No skin rash, lesions, cellulitis or abscesses. NEUROLOGIC: The patient is alert and oriented x3. Cranial nerves 2-12 are grossly intact. Strength is grossly normal. Sensations are intact. LABORATORY: WBC is 4.7, hemoglobin 10.6, hematocrit 32.3, platelet count 231. Sodium 139, potassium 4.4, chloride 108, carbon dioxide 25, anion gap 6. BUN 12. Creatinine 0.3, glucose is 94. Hemoglobin A1c 12.9, calcium 8.0, phosphorus 2.6, magnesium 1.8. UA positive for ketones, U-tox positive for methamphetamines and amphetamines. Serum ketones positive. IMAGING: No imaging was performed. FOLLOWUP/RECOMMENDATIONS: The patient was admitted for diabetic ketoacidosis, the diabetic ketoacidosis resolved. She was placed back on her home doses of insulin with which the patient's sugars were well controlled. The patient stated she had run out of her insulin prior to hospitalization. She was given prescriptions for 1 month supply of insulin plus refills. The patient was also advised to followup with her primary care physician for further treatment of her chronic diabetes. The patient was counseled on methamphetamine and tobacco abuse. The patient will followup with her PCP. TIME SPENT ON DISCHARGE: Greater than 30 minutes were spent on discharge. 13:9:00 JOB #: [id number] EXT JOB #:[id number] BRYANNA
== END 2016-07-09 13:25 | disposition home or self-care (01) | DRG 638 ==
LOC: ED 20:07 → ICU 21:45
PROVIDERS: ADMIT Specialist; ATTEND Internal Medicine
DX: E10.10 Type 1 diabetes mellitus with ketoacidosis without coma (principal); E87.1 Hypo-osmolality and hyponatremia; I10 Essential (primary) hypertension; F41.9 Anxiety disorder, unspecified; G89.4 Chronic pain syndrome; M79.7 Fibromyalgia; F17.200 Nicotine dependence, unspecified, uncomplicated; F15.10 Other stimulant abuse, uncomplicated; T38.3X6A Underdosing of insulin and oral hypoglycemic [antidiabetic] drugs, initial encounter; Z91.138 Patient's unintentional underdosing of medication regimen for other reason; E10.22 Type 1 diabetes mellitus with diabetic chronic kidney disease; N18.9 Chronic kidney disease, unspecified; E10.51 Type 1 diabetes mellitus with diabetic peripheral angiopathy without gangrene; E10.40 Type 1 diabetes mellitus with diabetic neuropathy, unspecified; Z71.51 Drug abuse counseling and surveillance of drug abuser; F32.9 Major depressive disorder, single episode, unspecified; Z71.6 Tobacco abuse counseling; Z79.4 Long term (current) use of insulin; Z71.89 Other specified counseling; Z59.0 Homelessness; Z87.898 Personal history of other specified conditions; Z76.5 Malingerer [conscious simulation]
CPT/HCPCS: 36415; 80048; 80053; 80306; 81001; 81003; 81025; 82009; 82803; 82947; 83036; 83690; 83735; 84100; 85025; 87086; 87150; 93005; 96365; 96375; 99284; 99291

== ENCOUNTER 2016-08-02 18:08 | Outpatient (CLI) | payer MEDICAID | END 2016-08-02 18:09 | disposition critical access hospital (66) | LOC: EMS 18:08 | PROVIDERS: ATTEND Surgery | DX: E11.65 Type 2 diabetes mellitus with hyperglycemia (principal) | CPT/HCPCS: A0425; A0429 ==

== ENCOUNTER 2016-08-02 18:24 | Inpatient (IN) | payer MEDICAID ==
[2016-08-02] MEDS ORDERED: SODIUM CHLORIDE 0.9% 1,000 ML IV ONE (18:27)
[2016-08-02] MEDS ORDERED: oxyCOD/ACETAMIN 5 MG/325 MG TABLET PO STA (18:32)
[2016-08-02] MEDS ORDERED: ONDANSETRON 4 MG/2 ML VIAL IVP STA (18:32)
--- NOTE | 2016-08-02 18:33 | ED Physician Documentation ---
PD HPI ABD PAIN - Stated complaint Stated Complaint: HIGH BLOOD SUGAR - History obtained from History obtained from: Patient - History of Present Illness Timing - onset: Other (35-year-old woman with history of drug abuse and type I diabetes as well as chronic pain presents with high blood sugars and heavy vaginal bleeding after a for month hiatus from menses. She complains of a lot of abdominal cramping and vomiting. Her blood sugars have been "high.") Review of Systems Ten Systems: 10 systems reviewed and negative Constitutional: denies: Fever, Chills Nose: reports: Reviewed and negative Cardiac: reports: Reviewed and negative Respiratory: reports: Reviewed and negative PD PAST MEDICAL HISTORY - Past Medical History Cardiovascular: Hypertension, High cholesterol, Peripheral Vascular Disease, [place] Respiratory: None Neuro: Peripheral neuropathy Endocrine/Autoimmune: Type 1 diabetes GI: Pancreatitis DAIRY FARMER: None : None HEENT: None Psych: Depression, Anxiety, Panic attacks Musculoskeletal: Fibromyalgia Derm: None - Past Surgical History Past Surgical History: Yes General: Cholecystectomy HEENT: Tonsil/Adenoidectomy - Present Medications Home Medications: Ambulatory Orders Medication Instructions Recorded Confirmed Propranolol [Inderal] 10 mg PO BID 09/19/15 07/07/16 Pantoprazole [Protonix] 40 mg PO QDAC #30 tablet 04/18/16 07/07/16 Fluticasone [Flonase] 2 spray NOE BID 04/22/16 07/07/16 Clonazepam [Klonopin] 2 mg PO TID 04/28/16 07/07/16 Insulin Aspart [NovoLOG] 9 unit SUBQ TIDWM #2 pen 07/09/16 Insulin Aspart [Novolog Flexpen] 9 unit SQ TIDWM #2 insuln.pen 07/09/16 Insulin Glargine,Hum.rec.anlog 70 unit SUBQ BID #2 vial 07/09/16 [Lantus] Methocarbamol 500 mg PO Q6H PRN #20 tablet 07/09/16 Nystatin Cream [Mycostatin Cream] 1 applic TOP BID #1 tube 07/09/16 oxyCODONE [Roxicodone] 5 mg PO Q4HR PRN #10 tablet 07/09/16 - Allergies Allergies/Adverse Reactions: Allergies Allergy/AdvReac Type Severity Reaction Status Date / Time codeine Allergy Hives Verified 08/02/16 18:36 hydrocodone Allergy Hives Verified 08/02/16 18:36 milk AdvReac Cramps Verified 08/02/16 18:36 nitrofurantoin AdvReac Headache Verified 08/02/16 18:36 [From Macrobid] PAPER TAPE AdvReac Unknown Uncoded 08/02/16 18:36 - Social History Does the pt smoke?: Yes Smoking Status: Current every day smoker Does the pt drink ETOH?: No Does the pt have substance abuse?: No - Family History Family history: reports: Non contributory - Immunizations Immunizations are current?: Yes - POLST Patient has POLST: No PD ED PE NORMAL - Vitals Vital signs reviewed: Yes - General General: Alert and oriented X 3, Other (uncomfortable) - HEENT HEENT: PERRL, EOMI - Neck Neck: Supple, no meningeal sign, No bony TTP - Cardiac Cardiac: No murmur, Other (ttachycardic) - Respiratory Respiratory: No respiratory distress, Clear bilaterally - Abdomen Abdomen: Other (mild diffuse tenderness) - Derm Derm: Normal color, Warm and dry - Extremities Extremities: No edema, No calf tenderness / cord - Neuro Neuro: Alert and oriented X 3, Normal speech - Psych Psych: Normal mood, Normal affect Results - Vitals Vitals: Vital Signs - 24 hr 08/02/16 08/02/16 08/02/16 18:28 18:45 19:00 Temperature 36.7 C Heart Rate 120 H 118 H 120 H Respiratory 20 19 19 Rate Blood Pressure 126/82 H 143/80 H O2 Saturation 94 84 L 100 08/02/16 20:22 Temperature Heart Rate 140 H Respiratory 20 Rate Blood Pressure 134/84 H O2 Saturation 99 Oxygen O2 Source [Without Activity] Room air O2 Source Room air Oxygen Flow Rate 2 - Labs Labs: Laboratory Tests 08/02/16 08/02/16 08/02/16 18:30 18:30 18:45 WBC 9.6 RBC 5.33 Hgb 13.9 Hct 43.5 MCV 81.5 MCH 26.1 L MCHC 32.0 RDW 14.3 Plt Count 287 MPV 8.8 Neut # 6.5 Lymph # 2.5 Walker # 0.4 Eos # 0.0 Baso # 0.1 Absolute Nucleated RBC 0.01 Nucleated RBCs 0.1 VBG pH VBG pCO2 VBG pO2 VBG HCO3 VBG Total CO2 VBG O2 Saturation VBG Base Excess Sodium Potassium Chloride Carbon Dioxide Anion Gap BUN Creatinine Estimated GFR (MDRD) Glucose Calcium Total Bilirubin AST ALT Alkaline Phosphatase Total Protein Albumin Globulin Albumin/Globulin Ratio Lipase Urine Color RED/BLOODY Urine Clarity BLOODY Urine pH 5.5 Ur Specific [place] <=1.005 <=1.005 Urine Protein 30 H Urine Glucose (UA) >=1000 H Urine Ketones 15 H Urine Occult Blood LARGE H Urine Nitrite NEGATIVE Urine Bilirubin NEGATIVE Urine Urobilinogen 0.2 (NORMAL) Ur Leukocyte Esterase NEGATIVE Urine RBC TNTC H Urine WBC 0-3 Ur Squamous Epith Cells FEW Squamous Urine Bacteria None Seen Ur Microscopic Review INDICATED Urine Culture Comments NOT INDICATED Urine HCG, Qual NEGATIVE Urine Opiates Screen NEGATIVE Ur Oxycodone Screen NEGATIVE Urine Methadone Screen NEGATIVE Ur Propoxyphene Screen NEGATIVE Ur Barbiturates Screen NEGATIVE Ur Tricyclics Screen NEGATIVE Ur Phencyclidine Scrn NEGATIVE Ur Amphetamine Screen NEGATIVE U Methamphetamines Scrn NEGATIVE U Benzodiazepines Scrn NEGATIVE Urine Cocaine Screen NEGATIVE U Cannabinoids Screen NEGATIVE Ethyl Alcohol Serum Ketones 08/02/16 08/02/16 18:45 18:45 WBC RBC Hgb Hct MCV MCH MCHC RDW Plt Count MPV Neut # Lymph # Walker # Eos # Baso # Absolute Nucleated RBC Nucleated RBCs VBG pH 7.365 VBG pCO2 36.4 L VBG pO2 56.8 H VBG HCO3 20.3 L VBG Total CO2 21.5 L VBG O2 Saturation 87.2 H VBG Base Excess -4.4 L Sodium 127 L Potassium 4.2 Chloride 89 L Carbon Dioxide 20 L Anion Gap 18.0 H BUN 24 H Creatinine 0.6 Estimated GFR (MDRD) 114 Glucose 734 H* Calcium 8.9 Total Bilirubin 0.9 AST 114 H ALT 50 Alkaline Phosphatase 161 H Total Protein 7.2 Albumin 3.8 Globulin 3.4 Albumin/Globulin Ratio 1.1 Lipase 26 Urine Color Urine Clarity Urine pH Ur Specific [place] Urine Protein Urine Glucose (UA) Urine Ketones Urine Occult Blood Urine Nitrite Urine Bilirubin Urine Urobilinogen Ur Leukocyte Esterase Urine RBC Urine WBC Ur Squamous Epith Cells Urine Bacteria Ur Microscopic Review Urine Culture Comments Urine HCG, Qual Urine Opiates Screen Ur Oxycodone Screen Urine Methadone Screen Ur Propoxyphene Screen Ur Barbiturates Screen Ur Tricyclics Screen Ur Phencyclidine Scrn Ur Amphetamine Screen U Methamphetamines Scrn U Benzodiazepines Scrn Urine Cocaine Screen U Cannabinoids Screen Ethyl Alcohol 55.4 Serum Ketones NEGATIVE PD MEDICAL DECISION MAKING - ED course ED course: 35-year-old woman with diabetes presents with profound hyperglycemia but is not in DKA. She was administered IV insulin with improvement. Given the height of her blood sugars and homelessness it is not unreasonable place her in observation tonight. Departure - Departure Disposition: ED Place in Observation Clinical Impression: Hyperglycemia Condition: Stable
[2016-08-02] MEDS ORDERED: oxyCOD/ACETAMIN 5 MG/325 MG TABLET PO ONE (18:37)
[2016-08-02] MEDS ORDERED: ONDANSETRON 4 MG/2 ML VIAL ONE (18:37)
[2016-08-02 18:51] LABS: VBG PH 7.365 (7.31-7.41)
[2016-08-02 18:52] LABS: VBG BASE EXCESS -4.4 mmol/L (-2 - +2); VBG OXYGEN SATURATION 87.2 % (60-80); VBG TOTAL CO2 21.5 mmol/L (24-29)
[2016-08-02 18:56] LABS: BASOPHILS # (AUTO) 0.1 10^3/uL (0.0-0.1); BASOPHILS % (AUTO) 0.7 %; EOSINOPHILS % (AUTO) 0.4 %; HCT - HEMATOCRIT 43.5 % (37.0-47.0); HGB - HEMOGLOBIN 13.9 g/dL (12.0-16.0); LYMPHOCYTES # (AUTO) 2.5 10^3/uL (1.5-3.5); LYMPHOCYTES % (AUTO) 26.4 %; MEAN CORPUSCULAR HEMOGLOBIN 26.1 pg (27.0-31.0); MEAN CORPUSCULAR VOLUME 81.5 fL (81.0-99.0); MEAN PLATELET VOLUME 8.8 fL (7.9-10.8); MONOCYTES # (AUTO) 0.4 10^3/uL (0.0-1.0); MONOCYTES % (AUTO) 4.5 %; NEUTROPHILS # (AUTO) 6.5 10^3/uL (1.5-6.6); NUCLEATED RED BLOOD CELLS AUTO 0.1 /100WBC; RED BLOOD COUNT 5.33 10^6/uL (4.20-5.40); RED CELL DISTRIBUTION WIDTH 14.3 % (12.0-15.0); UNCORRECTED WHITE BLOOD COUNT 9.6 x10^3/uL; WHITE BLOOD COUNT 9.6 x10^3/uL (4.8-10.8)
[2016-08-02 19:01] LABS: BILIRUBIN,URINE NEGATIVE (NEGATIVE); PH,URINE 5.5 PH (5.0-7.5)
[2016-08-02 19:05] LABS: UA w/ MICROSCOPIC CHARGE YES
[2016-08-02 19:07] LABS: HCG UR QUAL NEGATIVE; WBC,URINE 0-3 /HPF (0-5)
[2016-08-02 19:08] LABS: UR CULTURE IF IND NOT INDICATED
[2016-08-02 19:11] LABS: ALBUMIN/GLOBULIN RATIO 1.1 (1.0-2.2); BILIRUBIN,TOTAL 0.9 mg/dL (0.2-1.0); BUN - BLOOD UREA NITROGEN 24 mg/dL (6-20); CALCIUM 8.9 mg/dL (8.5-10.3); CARBON DIOXIDE - CO2 20 mmol/L (21-32); CHLORIDE 89 mmol/L (101-111); CREATININE 0.6 mg/dL (0.4-1.0); GFR - MDRD 114 (>89); LIPASE 26 U/L (22-51); POTASSIUM 4.2 mmol/L (3.5-5.0); SODIUM 127 mmol/L (135-145); TOTAL PROTEIN 7.2 g/dL (6.7-8.2)
[2016-08-02 19:12] LABS: GLUCOSE 734 mg/dL (70-100)
[2016-08-02] MEDS ORDERED: INSULIN REGULAR HUMAN 100 UNIT/1 ML 10 ML MDV IVP STA (19:12)
[2016-08-02] MEDS ORDERED: INSULIN REGULAR HUMAN 100 UNIT/1 ML 10 ML MDV ONE (19:14)
[2016-08-02] MEDS ORDERED: IBUPROFEN 600 MG TABLET PO PRN (20:52)
[2016-08-02] MEDS ORDERED: ACETAMINOPHEN 325 MG TABLET PO PRN (20:52)
[2016-08-02] MEDS ORDERED: ONDANSETRON 4 MG/2 ML VIAL IVP PRN (20:52)
[2016-08-02] MEDS ORDERED: SODIUM CHLORIDE FLUSH 0.9% 10 ML SYRINGE IVP PRN (20:52)
[2016-08-02] MEDS ORDERED: METHOCARBAMOL 500 MG TABLET PO PRN (20:57)
[2016-08-02] MEDS ORDERED: INSULIN LISPRO 100 UNIT/1 ML 10 ML MDV SUBQ SCH (21:00)
[2016-08-02] MEDS ORDERED: PROPRANOLOL 10 MG TABLET PO SCH (21:00)
[2016-08-02] MEDS ORDERED: FAMOTIDINE 20 MG/50 ML 50 ML IV SCH (21:00)
--- NOTE | 2016-08-02 21:38 | XRAY Preliminary Report ---
Exam: XR Abdomen Acute IMPRESSION: 1. Moderate to large colonic stool volume. 2. Few mildly dilated loops of small bowel in the left abdomen without abnormal fluid levels, nonspec ific. 3. The lungs are clear. [facility] SITE ID: [id number]
[2016-08-02 21:40] LABS: POTASSIUM 4.2 mmol/L (3.5-5.0)
--- NOTE | 2016-08-02 21:40 | XRAY Report ---
EXAM: ABDOMINAL SERIES AND PA CHEST EXAM DATE: 08/02/2016 09:11 PM. CLINICAL HISTORY: Abdominal pain. COMPARISON: Chest radiograph 04/21/2016. CT abdomen 04/17/2016. TECHNIQUE: 2 views abdomen and 1 view chest. FINDINGS: CHEST: Lungs/Pleura: No focal opacities are evident. No pleural effusion or pneumothorax. Mediastinum: Normal cardiomediastinal contour. ABDOMEN: Bowel Gas Pattern: Moderate to large colonic stool volume. Few mildly dilated gas-filled loops of sma ll bowel in the left abdomen, without abnormal air-fluid levels on the upright view. Free Air: None. Bones: Unremarkable. Other: Cholecystotomy clips in the right upper quadrant. IMPRESSION: 1. Moderate to large colonic stool volume. 2. Few mildly dilated loops of small bowel in the left abdomen without abnormal fluid levels, nonspec ific. 3. The lungs are clear. [facility] Referring Provider Line: [phone] SITE ID: [id number]
[2016-08-02] MEDS ORDERED: CLONAZEPAM 2 MG PO SCH (22:00)
[2016-08-02] MEDS: NYSTATIN CREAM 15 GM TUBE TOP SCH (22:18)
[2016-08-02] MEDS: FLUTICASONE NASAL SPRAY NAS SCH (22:18)
[2016-08-02] MEDS: ENOXAPARIN 40 MG/0.4 ML SYRINGE SUBQ SCH (22:19)
[2016-08-02] MEDS: SODIUM CHLORIDE FLUSH 0.9% 10 ML SYRINGE IVP SCH (22:34)
[2016-08-02] MEDS: SODIUM CHLORIDE 0.9% 1,000 ML IV SCH (22:34)
[2016-08-02] MEDS: INSULIN REGULAR HUMAN 100 UNIT/1 ML 10 ML MDV IV SCH (22:34)
[2016-08-02] MEDS: INSULIN ASPART 300 UNIT/3 ML PEN SUBQ SCH (22:36)
[2016-08-02] MEDS: clonazePAM 0.5 MG TABLET PO SCH (22:42)
[2016-08-02] MEDS: FAMOTIDINE 20 MG TABLET PO SCH (22:42)
[2016-08-02] MEDS ORDERED: INSULIN REGULAR HUMAN 100 UNIT/1 ML 10 ML MDV IV SCH (23:00)
--- NOTE | 2016-08-02 23:30 | HISTORY & PHYSICAL EXAMINATION ---
DATE OF ADMISSION: 08/02/2016 PRIMARY CARE PROVIDER: None listed. CHIEF COMPLAINT: Elevated blood sugar, mild abdominal pain. HISTORY OF PRESENT ILLNESS: A 35-year-old female who has a history of recurrent DKA, noncompliant with medication. 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 She comes in today with an elevated blood sugar of 734. Bicarbonate is 20, anion gap is 18.0. Lactic acid is pending at the time of this dictation. Lipase is normal. Urine tox is negative. Alcohol level is 55.4. Serum ketones are negative. Urine hCG is negative. White count is 9.6. Blood gas venous 7.365 , pCO2 is 36.5, bicarbonate 20.3. She was given IV 20 units regular insulin in the emergency room, and, according to ER physician, blood sugar at point of care is now 430. Looks like she was given 20 units of IV regular insulin. She does have a history of opiate abuse and per ER MD has a care plan, which states no opiates to be given. PAST MEDICAL HISTORY 1. Diabetes mellitus diagnosed 1999 reportedly type 1 and is noncompliant. 2. History of peripheral vascular disease and neuropathy. 3. Questionable history of chronic kidney disease, given that her current labs reveal a BUN of 24, creatinine of 0.6, and calculated GFR is 114.2. 4. Chronic pain syndrome from fibromyalgia. 5. History of chronic tachycardia. 6. Hypertension. 7. Psychiatric disease. 8. Short-term memory loss. 9. Status post tonsillectomy. 10. Status post cholecystectomy age 16. 11. History of valvular heart disease with moderate pulmonary hypertension, mild tricuspid regurgitation, and right ventricle that is dilated on echo 2015. 12. History of opiate, methamphetamine, and prescription medication abuse. 13. Patient was last admitted 07/07/2016 with DKA. ALLERGIES 1. CODEINE. 2. HYDROCODONE. 3. MACROBID. MEDICATIONS UPON ADMISSION Per chart reveals: 1. NovoLog per protocol. 2. Glargine insulin 70 units subcutaneous b.i.d. 3. Clonazepam 2 mg. Unclear other medications at this point. FAMILY MEDICAL HISTORY: Father with a history of coronary artery disease, diabetes, multiple MIs, also with a CVA; he was in his 70s. SOCIAL HISTORY: He is homeless; has a history of multiple substance abuse. REVIEW OF SYSTEMS: Denies any fevers or chills; does admit to some abdominal pain. The patient currently is menstruating. Denies any cough, chest pain. All other review of systems are reviewed and are negative except as in HPI. PHYSICAL EXAMINATION VITAL SIGNS: Temperature is afebrile. Heart rate 118-140, blood pressure 134/84 , respiratory rate 20, room air saturation 99%. CONSTITUTIONAL: A young female tearful, and apparently in mild distress. Disheveled in appearance. HEENT: Head normocephalic, atraumatic. Eyes PERRLA-DC. EOMI. Mouth: No lesions. NECK: No adenopathy. CHEST: Clear to auscultation. COR: Tachycardic, S1, S2. ABDOMEN: Soft, mild diffuse tenderness. No rebound, no guarding. Bowel sounds present. EXTREMITIES: Exam reveals no pedal edema. SKIN: No rashes, but patient is, again, dirty in appearance. PSYCHIATRIC: Patient is anxious and depressed appearing. NEUROLOGIC: She is alert and oriented x3. Motor strength is intact bilaterally. LABORATORY As above, also to include: Sodium 127, potassium 4.2, chloride 89, bicarbonate 20, anion gap 18, BUN 24, creatinine 0.6, calculated GFR 114, calcium 8.9, total bilirubin 0.9, AST 114, ALT 50, alkaline phosphatase 161, total protein 7.2, albumin 3.8, lipase 26. Urine pH is less than 1.005, protein is 30, glucose greater than 1000. Urine ketones 15, large occult blood, nitrite and leukocyte esterase negative, too numerous to count RBCs, WBCs 0-3, few squamous epithelial cells, negative bacteria. White count 9.6, hemoglobin 13.9, hematocrit 43.5, MCV 81.5. Platelets 287 with 6.5 neutrophils. ASSESSMENT AND PLAN 1. Hyperglycemia secondary to type 1 to 1.5 diabetes mellitus. There is no bed available in the ICU. Patient has negative serum ketones and normal venous pH; hence, we will go ahead and give IV regular insulin 10 units subcutaneous q.2 h. along with NovoLog 10 units subcutaneous q.2 h. Check q.2-hour glucoses and q.4-hour electrolytes. We will also give aggressive IV fluid hydration 150 mL/ hour of normal saline. Also await lactic acid level. We will get troponin, magnesium levels, along with EKG. Mild abdominal pain. We will check abdominal x -rays series, and that is pending at the time. 2. History of opiate abuse. Again, by emergency room MD has a care contract which states NO OPIATES. 3. Deep venous thrombosis prophylaxis: SCDs and subcutaneous Lovenox. 4. Code status: Patient is FULL CODE. TIME SPENT: 60 minutes. JOB #: [id number] EXT JOB #:[id number] MTDAnnabelle
[2016-08-03] MEDS: INSULIN REGULAR HUMAN 100 UNIT/1 ML 10 ML MDV IV SCH ×2 (00:37→02:32)
[2016-08-03] MEDS: INSULIN ASPART 300 UNIT/3 ML PEN SUBQ SCH ×2 (00:38→02:33)
[2016-08-03 02:15] LABS: POTASSIUM 4.1 mmol/L (3.5-5.0)
[2016-08-03] MEDS: SODIUM CHLORIDE FLUSH 0.9% 10 ML SYRINGE IVP SCH (05:21)
[2016-08-03] MEDS: clonazePAM 0.5 MG TABLET PO SCH (05:30)
[2016-08-03] MEDS: SODIUM CHLORIDE 0.9% 1,000 ML IV SCH (05:31)
[2016-08-03 05:45] LABS: BASOPHILS # (AUTO) 0.1 10^3/uL (0.0-0.1); BASOPHILS % (AUTO) 0.9 %; EOSINOPHILS # (AUTO) 0.1 10^3/uL (0.0-0.7); EOSINOPHILS % (AUTO) 1.1 %; HCT - HEMATOCRIT 39.5 % (37.0-47.0); HGB - HEMOGLOBIN 12.8 g/dL (12.0-16.0); LYMPHOCYTES # (AUTO) 3.7 10^3/uL (1.5-3.5); LYMPHOCYTES % (AUTO) 49.9 %; MEAN CORPUSCULAR HEMOGLOBIN 25.5 pg (27.0-31.0); MEAN CORPUSCULAR HGB CONC 32.5 g/dL (32.0-36.0); MEAN CORPUSCULAR VOLUME 78.7 fL (81.0-99.0); MEAN PLATELET VOLUME 8.2 fL (7.9-10.8); MONOCYTES # (AUTO) 0.4 10^3/uL (0.0-1.0); MONOCYTES % (AUTO) 5.8 %; NEUTROPHILS # (AUTO) 3.1 10^3/uL (1.5-6.6); NEUTROPHILS % (AUTO) 42.3 %; RED BLOOD COUNT 5.02 10^6/uL (4.20-5.40); RED CELL DISTRIBUTION WIDTH 15.1 % (12.0-15.0); UNCORRECTED WHITE BLOOD COUNT 7.4 x10^3/uL; WHITE BLOOD COUNT 7.4 x10^3/uL (4.8-10.8)
[2016-08-03 05:56] LABS: PHOSPHORUS 2.6 mg/dL (2.5-4.6); POTASSIUM 3.7 mmol/L (3.5-5.0)
[2016-08-03 06:35] LABS: HEMOGLOBIN A1C 1.59 g/dL
[2016-08-03] MEDS ORDERED: PANTOPRAZOLE 40 MG TABLET PO SCH (07:00)
[2016-08-03] MEDS ORDERED: INSULIN ASPART 300 UNIT/3 ML PEN SUBQ SCH (08:00)
[2016-08-03] MEDS ORDERED: INSULIN GLARGINE 300 UNIT/3 ML PEN SUBQ SCH ×2 (08:00→21:00)
[2016-08-03] MEDS: FLUTICASONE NASAL SPRAY NAS SCH (08:12)
[2016-08-03] MEDS: ENOXAPARIN 40 MG/0.4 ML SYRINGE SUBQ SCH (08:12)
[2016-08-03] MEDS: FAMOTIDINE 20 MG TABLET PO SCH (08:13)
[2016-08-03] MEDS: NYSTATIN CREAM 15 GM TUBE TOP SCH (08:14)
[2016-08-03] MEDS ORDERED: POLYETHYLENE GLYCOL 3350 17 GM PACKET PO SCH (09:00)
[2016-08-03] MEDS ORDERED: NICOTINE 21 MG PATCH TOP SCH (09:00)
[2016-08-03 09:11] LABS: MAGNESIUM 1.7 mg/dL (1.7-2.8); POTASSIUM 4.1 mmol/L (3.5-5.0)
--- NOTE | 2016-08-03 09:11 | Discharge Plan ---
Discharge Plan Disposition: 01 Home, Self Care Condition: Stable Diet: Diabetic Activity Restrictions: No Restrictions Weight Bearing: Full Weight Additional Instructions or Follow Up instructions: Please establish with a primary care provider and see them this week. Take all medications as prescribed. No Smoking: If you smoke, Please STOP! Call for help.
[2016-08-03 09:14] VITALS: BP 119/89
[2016-08-03] MEDS ORDERED: AMITRIPTYLINE 25 MG TABLET PO SCH (21:00)
--- NOTE | 2016-08-04 02:28 | DISCHARGE SUMMARY ---
DATE OF ADMISSION: 08/02/2016 DATE OF DISCHARGE: 08/03/2016 PRIMARY CARE PROVIDER: Hakeem Cleveland. DISCHARGING PROVIDER: Alfonso Allen PA-C. ADMITTING DIAGNOSES 1. Hyperglycemia secondary to type 1 to type 1.5 diabetes mellitus. 2. History of opioid abuse. DISCHARGE DIAGNOSES 1. Hyperglycemia secondary to type 1 to type 1.5 diabetes mellitus. a. Complicated by the patient's noncompliance to medical regimen. b. Negative serum ketones, normal venous pH. Therefore, no diabetic ketoacidosis (DKA) on admissio n. c. Resolved with initiation of insulin therapy. 2. History of opioid abuse. 3. Medical noncompliance. 4. Chronic tachycardia. BRIEF HISTORY OF PRESENT ILLNESS: For specifics, please see it on admission. This is a patient with c urrent DKA and medical noncompliance who came to the hospital for evaluation of elevated blood glucos e levels. Upon arrival to the emergency department, blood sugars were recorded in the 700s. She was t reated with IV insulin. COURSE IN CENTER: The patient was admitted to the medical floor for further evaluation. IC was not in dicated, as she did not have true diabetic ketoacidosis. She was treated with regular insulin IV 10 u nits q.2h., along with NovoLog 10 units subcutaneous q.2h., and q.2h. glucose checks, and q.4h. elect rolytes were ordered. The patient was treated with aggressive fluid hydration of 150 mL per hour of n ormal saline. Serial labs demonstrated improvement in her blood glucose level at 508, 346, and then a gain this morning at 227. Potassium remained within normal limits. Sodium was stable. Anion gap remai brandan normal with most recent of 7.0 performed at 8:57 a.m. Magnesium of 1.7. At the time of discharge, the patient was doing well. She was eating. She had eaten her entire breakfast, asking for second he lping food. DISCHARGE PHYSICAL EXAMINATION GENERAL: No acute distress. CHEST: Clear to auscultation. HEART: Regular, tachycardic. ABDOMEN: Benign. EXTREMITIES: Without edema. Pulses are 2+ equal bilaterally. DISPOSITION: She is discharged home. Follow up with primary care provider in 1 week. Encouraged the p atient to take her medication as directed. DISCHARGE MEDICATIONS 1. Insulin 70 units subcutaneous b.i.d. 2. Insulin aspart 9 units subacute 3 times daily. 3. Oxycodone q.4h. as needed. 4. Clonazepam 2 mg t.i.d. 5. Methocarbamol 500 mg q.6h. as needed. 6. Nystatin cream b.i.d. 7. Propranolol 10 mg b.i.d. Thank you for the opportunity to participate in the care of this patient and all of her medical needs . JOB #: [id number] EXT JOB #:[id number]
== END 2016-08-03 11:25 | disposition home or self-care (01) | DRG 638 ==
LOC: EDUNIT# → ED 18:24 → MS 20:52
PROVIDERS: ADMIT Specialist; ATTEND Physician Assistant
DX: E10.65 Type 1 diabetes mellitus with hyperglycemia (principal); I38 Endocarditis, valve unspecified; Z91.14 Patient's other noncompliance with medication regimen; Z87.898 Personal history of other specified conditions; R00.0 Tachycardia, unspecified; E10.40 Type 1 diabetes mellitus with diabetic neuropathy, unspecified; E10.51 Type 1 diabetes mellitus with diabetic peripheral angiopathy without gangrene; G89.4 Chronic pain syndrome; M79.7 Fibromyalgia; I10 Essential (primary) hypertension; I27.2 Other secondary pulmonary hypertension; F99 Mental disorder, not otherwise specified; Z59.0 Homelessness; Z79.4 Long term (current) use of insulin
CPT/HCPCS: 36415; 74022; 80051; 80053; 80306; 80320; 81001; 81003; 81025; 82009; 82803; 82947; 83036; 83605; 83690; 83735; 84100; 84484; 85025; 87086; 96361; 96374; 99284

== ENCOUNTER 2016-08-21 08:49 | Outpatient (CLI) | payer MEDICAID | END 2016-08-21 08:50 | disposition critical access hospital (66) | LOC: EMS 08:49 | PROVIDERS: ATTEND Surgery | DX: R11.2 Nausea with vomiting, unspecified (principal); R73.09 Other abnormal glucose | CPT/HCPCS: A0425; A0429 ==

== ENCOUNTER 2016-08-21 09:03 | Inpatient (IN) | payer MEDICAID ==
[2016-08-21] MEDS ORDERED: ONDANSETRON 4 MG/2 ML VIAL IVP STA ×2 (09:10→14:10)
[2016-08-21] MEDS ORDERED: SODIUM CHLORIDE 0.9% 2,000 ML IV ONE (09:10)
--- NOTE | 2016-08-21 09:21 | ED Physician Documentation ---
History of Present Illness - Stated complaint Stated Complaint: HYPERGLYCEMIA - Chief complaint Chief Complaint: General - History obtained from History obtained from: Patient, EMS - Additonal information Additional information: The patient is a 35-year-old insulin-dependent diabetic who arrives via ambulance complaining of nausea, vomiting, and abdominal cramping pain for the past 3 days. She also reports headache, shortness of breath, and "joint pains. " She denies fever, cough, or dysuria. Her last menstrual period was 1-1/2 weeks ago. She has a history of multiple previous hospitalizations for DKA. She was most recently hospitalized 3 weeks ago for hyperglycemia without DKA. Prior to that she was hospitalized 6 weeks ago for DKA. In addition to type 1 diabetes, she has a history of chronic pain syndrome and methamphetamine abuse. She does not currently have a primary physician, and states that her last prescription for insulin was written by the hospitalist who discharged her. Review of Systems Constitutional: reports: Fatigue. denies: Fever Nose: denies: Congestion Throat: denies: Sore throat Cardiac: denies: Chest pain / pressure Respiratory: reports: Dyspnea. denies: Cough GI: reports: Abdominal Pain, Nausea, Vomiting. denies: Diarrhea : reports: LMP (1.5 weeks ago.). denies: Dysuria Skin: denies: Rash Musculoskeletal: reports: Joint pain Neurologic: reports: Headache. 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: None : None HEENT: None Psych: Depression, Anxiety, Panic attacks Musculoskeletal: Fibromyalgia Derm: None - Past Surgical History Past Surgical History: Yes General: Cholecystectomy HEENT: Tonsil/Adenoidectomy - Present Medications Home Medications: Ambulatory Orders Medication Instructions Recorded Confirmed Insulin Aspart [Novolog Flexpen] 9 unit SQ TIDWM #2 insuln.pen 07/09/16 08/21/16 Insulin Glargine,Hum.rec.anlog 70 unit SUBQ BID #2 vial 07/09/16 08/21/16 [Lantus] - Allergies Allergies/Adverse Reactions: Allergies Allergy/AdvReac Type Severity Reaction Status Date / Time codeine Allergy Hives Verified 08/21/16 09:07 hydrocodone Allergy Hives Verified 08/21/16 09:07 milk AdvReac Cramps Verified 08/21/16 09:07 nitrofurantoin AdvReac Headache Verified 08/21/16 09:07 [From Macrobid] PAPER TAPE AdvReac Unknown Uncoded 08/21/16 09:07 - Social History Does the pt smoke?: Yes Smoking Status: Current some day smoker Does the pt drink ETOH?: No Does the pt have substance abuse?: No - Immunizations Immunizations are current?: Yes - POLST Patient has POLST: No PD ED PE NORMAL - Vitals Vital signs reviewed: Yes (Tachycardic) - General General: Alert and oriented X 3, Well developed/nourished, Other (Appears distressed, with deep inspirations.) - HEENT HEENT: Atraumatic, EOMI, Pharynx benign - Neck Neck: Supple, no meningeal sign, No adenopathy, No JVD - Cardiac Cardiac: No murmur, Other (Rapid rate, regular rhythm.) - Respiratory Respiratory: Clear bilaterally - Abdomen Abdomen: Soft, Other (Mild generalized tenderness to palpation, without rebound or guarding.) - Back Back: No CVA TTP - Derm Derm: No rash - Extremities Extremities: No edema, No calf tenderness / cord - Neuro Neuro: Alert and oriented X 3, No motor deficit, No sensory deficit Results - Vitals Vitals: Vital Signs - 24 hr 08/21/16 08/21/16 08/21/16 09:05 11:34 13:31 Temperature 36.7 C Heart Rate 131 H 136 H 136 H Respiratory 22 18 20 Rate Blood Pressure 133/101 H 153/90 H 139/73 H O2 Saturation 100 100 100 Oxygen O2 Source [Without Activity] Room air O2 Source Room air - Labs Labs: Laboratory Tests 08/21/16 08/21/16 08/21/16 09:35 10:05 10:05 WBC 14.0 H RBC 5.91 H Hgb 15.3 Hct 46.9 MCV 79.3 L MCH 25.9 L MCHC 32.6 RDW 16.0 H Plt Count 462 H MPV 8.4 Neut # 10.2 H Lymph # 3.0 [place] # 0.7 Eos # 0.0 Baso # 0.1 Absolute Nucleated RBC 0.00 Nucleated RBCs 0.0 Sodium 129 L Potassium 4.8 Chloride 91 L Carbon Dioxide 9 L* Anion Gap 29.0 H BUN 44 H Creatinine 1.1 H Estimated GFR (MDRD) 57 L Glucose 279 H Lactic Acid 1.0 Calcium 9.1 Magnesium 1.9 Total Bilirubin 2.1 H AST 19 ALT 70 H Alkaline Phosphatase 291 H Total Protein 8.7 H Albumin 4.6 Globulin 4.1 Albumin/Globulin Ratio 1.1 Lipase 15 L Urine Color Urine Clarity Urine pH Ur Specific [place] Urine Protein Urine Glucose (UA) Urine Ketones Urine Occult Blood Urine Nitrite Urine Bilirubin Urine Urobilinogen Ur Leukocyte Esterase Urine RBC Urine WBC Ur Squamous Epith Cells Urine Bacteria Urine Casts Ur Microscopic Review Urine Culture Comments Urine HCG, Qual Urine Opiates Screen Ur Oxycodone Screen Urine Methadone Screen Ur Propoxyphene Screen Ur Barbiturates Screen Ur Tricyclics Screen Ur Phencyclidine Scrn Ur Amphetamine Screen U Methamphetamines Scrn U Benzodiazepines Scrn Urine Cocaine Screen U Cannabinoids Screen 08/21/16 08/21/16 12:35 12:50 WBC RBC Hgb Hct MCV MCH MCHC RDW Plt Count MPV Neut # Lymph # [place] # Eos # Baso # Absolute Nucleated RBC Nucleated RBCs Sodium 130 L Potassium 4.3 Chloride 100 L Carbon Dioxide 9 L* Anion Gap 21.0 H BUN 36 H Creatinine 0.9 Estimated GFR (MDRD) 72 L Glucose 282 H Lactic Acid Calcium 7.9 L Magnesium Total Bilirubin AST ALT Alkaline Phosphatase Total Protein Albumin Globulin Albumin/Globulin Ratio Lipase Urine Color YELLOW Urine Clarity HAZY Urine pH 5.5 Ur Specific [place] >=1.030 H Urine Protein TRACE Urine Glucose (UA) 250 H Urine Ketones >=80 H Urine Occult Blood MODERATE H Urine Nitrite NEGATIVE Urine Bilirubin MODERATE H Urine Urobilinogen 0.2 (NORMAL) Ur Leukocyte Esterase NEGATIVE Urine RBC 6-10 H Urine WBC 0-3 Ur Squamous Epith Cells FEW Squamous Urine Bacteria Few Urine Casts 3-5 Hyaline Casts Ur Microscopic Review INDICATED Urine Culture Comments NOT INDICATED Urine HCG, Qual NEGATIVE Urine Opiates Screen NEGATIVE Ur Oxycodone Screen NEGATIVE Urine Methadone Screen NEGATIVE Ur Propoxyphene Screen NEGATIVE Ur Barbiturates Screen NEGATIVE Ur Tricyclics Screen NEGATIVE Ur Phencyclidine Scrn NEGATIVE Ur Amphetamine Screen NEGATIVE U Methamphetamines Scrn NEGATIVE U Benzodiazepines Scrn NEGATIVE Urine Cocaine Screen NEGATIVE U Cannabinoids Screen NEGATIVE Procedures - General procedure General procedure: Right external jugular vein placement. After four unsuccessful IV attempts by the nurses, I was asked to gain IV access. With the patient in Trendelenburg position, and after sterile prep, a 22-gauge angiocatheter was placed in the right external jugular vein. Labs were drawn from the line, which then demonstrated ability to be flushed easily. PD MEDICAL DECISION MAKING - ED course Complexity details: reviewed old records, reviewed results, re-evaluated patient , considered differential, d/w patient, d/w custom decorating consultant ED course: The patient's presentation is significant for diabetic acidosis with vomiting and dehydration. Her chemistry panel reveals hyponatremia with a sodium of 129 , acidosis with a serum bicarbonate of 9 and an anion gap of 29. Her lactate level is normal at 1.0. Her BUN and creatinine are consistent with prerenal azotemia with a BUN of 44 and creatinine of 1.1. Her glucose level is elevated at 279. Urinalysis is positive for ketones greater than 80. There is no clinical evidence to suggest a urinary tract infection nor pneumonia. I doubt sepsis. IV access was obtained by placement of a right external jugular catheter. Treatment in the emergency department included administration of normal saline 2 L IV, Zofran 4 mg IV 2, Phenergan 12.5 mg IV, and acetaminophen 1 g IV. Repeat chemistry panel reveals continued acidosis with a serum bicarbonate of 9 and an anion gap that is only slightly improved at 21. I discussed her condition with Dr. Ruiz who evaluated her in the emergency department and admitted her for further evaluation and treatment. Departure - Departure Disposition: [facility] DC/Xfer Clinical Impression: Dehydration, Hyponatremia DKA (diabetic ketoacidoses) Qualifiers: Diabetes mellitus type: type 1 Diabetes mellitus complication detail: without coma Qualified Code(s): E10.10 - Type 1 diabetes mellitus with ketoacidosis without coma Condition: Stable Discharge Date/Time: 08/21/16 14:42
[2016-08-21] MEDS ORDERED: ONDANSETRON 4 MG/2 ML VIAL ONE (09:41)
[2016-08-21 09:48] LABS: BASOPHILS # (AUTO) 0.1 10^3/uL (0.0-0.1); BASOPHILS % (AUTO) 0.5 %; EOSINOPHILS % (AUTO) 0.1 %; HCT - HEMATOCRIT 46.9 % (37.0-47.0); HGB - HEMOGLOBIN 15.3 g/dL (12.0-16.0); LYMPHOCYTES % (AUTO) 21.2 %; MEAN CORPUSCULAR HEMOGLOBIN 25.9 pg (27.0-31.0); MEAN CORPUSCULAR HGB CONC 32.6 g/dL (32.0-36.0); MEAN CORPUSCULAR VOLUME 79.3 fL (81.0-99.0); MEAN PLATELET VOLUME 8.4 fL (7.9-10.8); MONOCYTES # (AUTO) 0.7 10^3/uL (0.0-1.0); MONOCYTES % (AUTO) 5.2 %; NEUTROPHILS # (AUTO) 10.2 10^3/uL (1.5-6.6); RED BLOOD COUNT 5.91 10^6/uL (4.20-5.40)
[2016-08-21] MEDS ORDERED: ACETAMINOPHEN 1,000 MG/100 ML 100 ML IV STA (10:27)
[2016-08-21] MEDS ORDERED: PROMETHAZINE INJ 12.5 MG in SODIUM CHLORIDE 0.9% 50 ML IV STA (10:27)
[2016-08-21] MEDS ORDERED: PROMETHAZINE 25 MG/1 ML VIAL ONE (10:28)
[2016-08-21] MEDS ORDERED: ACETAMINOPHEN 1,000 MG/100 ML 100 ML IV ONE (10:28)
[2016-08-21 10:35] LABS: ALBUMIN/GLOBULIN RATIO 1.1 (1.0-2.2); BILIRUBIN,TOTAL 2.1 mg/dL (0.2-1.0); CALCIUM 9.1 mg/dL (8.5-10.3); CREATININE 1.1 mg/dL (0.4-1.0); MAGNESIUM 1.9 mg/dL (1.7-2.8); POTASSIUM 4.8 mmol/L (3.5-5.0); TOTAL PROTEIN 8.7 g/dL (6.7-8.2)
[2016-08-21 12:54] LABS: PH,URINE 5.5 PH (5.0-7.5)
[2016-08-21 12:58] LABS: BILIRUBIN,URINE MODERATE (NEGATIVE); HCG UR QUAL NEGATIVE; UA w/ MICROSCOPIC CHARGE YES
[2016-08-21 13:02] LABS: WBC,URINE 0-3 /HPF (0-5)
[2016-08-21 13:03] LABS: UR CULTURE IF IND NOT INDICATED
[2016-08-21 13:18] LABS: CALCIUM 7.9 mg/dL (8.5-10.3); CREATININE 0.9 mg/dL (0.4-1.0); POTASSIUM 4.3 mmol/L (3.5-5.0)
[2016-08-21] MEDS ORDERED: ACETAMINOPHEN 325 MG TABLET PO PRN (14:02)
[2016-08-21] MEDS ORDERED: ONDANSETRON 4 MG/2 ML VIAL IVP PRN (14:02)
[2016-08-21] MEDS ORDERED: INSULIN REGULAR HUMAN 100 UNIT in SODIUM CHLORIDE 0.9% 100ML 99 ML IV SCH ×3 (15:00→21:30)
[2016-08-21] MEDS ORDERED: PROMETHAZINE INJ 6.25 MG in SODIUM CHLORIDE 0.9% 50 ML IV PRN (15:42)
[2016-08-21] MEDS ORDERED: PROMETHAZINE 25 MG TABLET PO PRN (15:43)
[2016-08-21 17:07] LABS: BASOPHILS # (AUTO) 0.1 10^3/uL (0.0-0.1); EOSINOPHILS % (AUTO) 0.1 %; HCT - HEMATOCRIT 49.9 % (37.0-47.0); HGB - HEMOGLOBIN 16.4 g/dL (12.0-16.0); LYMPHOCYTES # (AUTO) 2.7 10^3/uL (1.5-3.5); LYMPHOCYTES % (AUTO) 24.3 %; MEAN CORPUSCULAR HEMOGLOBIN 26.1 pg (27.0-31.0); MEAN CORPUSCULAR HGB CONC 32.8 g/dL (32.0-36.0); MEAN CORPUSCULAR VOLUME 79.7 fL (81.0-99.0); MEAN PLATELET VOLUME 7.7 fL (7.9-10.8); MONOCYTES # (AUTO) 0.5 10^3/uL (0.0-1.0); MONOCYTES % (AUTO) 4.6 %; NEUTROPHILS # (AUTO) 7.9 10^3/uL (1.5-6.6); RED BLOOD COUNT 6.26 10^6/uL (4.20-5.40); UNCORRECTED WHITE BLOOD COUNT 11.3 x10^3/uL; WHITE BLOOD COUNT 11.3 x10^3/uL (4.8-10.8)
[2016-08-21] MEDS ORDERED: DEXTROSE 5%-0.9% NACL 1,000 ML IV SCH (17:09)
[2016-08-21 17:19] LABS: CREATININE 0.9 mg/dL (0.4-1.0); POTASSIUM 4.1 mmol/L (3.5-5.0)
[2016-08-21 17:30] LABS: HEMOGLOBIN A1C 2.47 g/dL
[2016-08-21 18:21] LABS: VBG BASE EXCESS -8.9 mmol/L (-2 - +2); VBG OXYGEN SATURATION 98.7 % (60-80); VBG PH 7.379 (7.31-7.41); VBG TOTAL CO2 15.1 mmol/L (24-29)
[2016-08-21] MEDS ORDERED: KETOROLAC 30 MG/ML VIAL IVP PRN (19:45)
[2016-08-21] MEDS ORDERED: clonazePAM 0.5 MG TABLET PO PRN (19:57)
[2016-08-21 20:13] LABS: ALBUMIN/GLOBULIN RATIO 1.1 (1.0-2.2); BILIRUBIN,TOTAL 1.9 mg/dL (0.2-1.0); BUN - BLOOD UREA NITROGEN 22 mg/dL (6-20); CALCIUM 8.1 mg/dL (8.5-10.3); CARBON DIOXIDE - CO2 15 mmol/L (21-32); CHLORIDE 102 mmol/L (101-111); CREATININE 0.7 mg/dL (0.4-1.0); GFR - MDRD 96 (>89); GLUCOSE 272 mg/dL (70-100); POTASSIUM 4.6 mmol/L (3.5-5.0); SODIUM 130 mmol/L (135-145); TOTAL PROTEIN 6.8 g/dL (6.7-8.2)
[2016-08-21 20:19] LABS: CALCIUM, IONIZED 1.09 mmol/L (1.15-1.33); VBG PH 7.386 (7.31-7.41)
[2016-08-21] MEDS: PANTOPRAZOLE 40 MG VIAL IVP SCH (20:28)
[2016-08-21] MEDS: INSULIN GLARGINE 300 UNIT/3 ML PEN SUBQ SCH (20:28)
[2016-08-21] MEDS: GABAPENTIN 300 MG CAPSULE PO SCH (20:28)
[2016-08-21] MEDS: SODIUM CHLORIDE FLUSH 0.9% 10 ML SYRINGE IVP SCH (21:03)
[2016-08-21] MEDS: ACETAMINOPHEN 1,000 MG/100 ML 100 ML IV PRN (21:03)
[2016-08-21] MEDS: PROPRANOLOL 10 MG TABLET PO SCH (21:03)
[2016-08-21] MEDS: INSULIN ASPART 300 UNIT/3 ML PEN SUBQ SCH (21:56)
[2016-08-22] MEDS ORDERED: INSULIN ASPART 300 UNIT/3 ML PEN SUBQ ONE (01:00)
[2016-08-22] MEDS ORDERED: INSULIN ASPART 300 UNIT/3 ML PEN SUBQ SCH ×2 (01:06→17:00)
[2016-08-22] MEDS: ACETAMINOPHEN 1,000 MG/100 ML 100 ML IV PRN ×3 (03:47→15:08)
[2016-08-22 04:19] LABS: BASOPHILS # (AUTO) 0.1 10^3/uL (0.0-0.1); BASOPHILS % (AUTO) 0.8 %; EOSINOPHILS # (AUTO) 0.1 10^3/uL (0.0-0.7); EOSINOPHILS % (AUTO) 0.7 %; HCT - HEMATOCRIT 34.8 % (37.0-47.0); HGB - HEMOGLOBIN 11.6 g/dL (12.0-16.0); LYMPHOCYTES # (AUTO) 2.4 10^3/uL (1.5-3.5); LYMPHOCYTES % (AUTO) 26.9 %; MEAN CORPUSCULAR HEMOGLOBIN 25.8 pg (27.0-31.0); MEAN CORPUSCULAR HGB CONC 33.3 g/dL (32.0-36.0); MEAN CORPUSCULAR VOLUME 77.5 fL (81.0-99.0); MEAN PLATELET VOLUME 7.5 fL (7.9-10.8); MONOCYTES # (AUTO) 0.8 10^3/uL (0.0-1.0); MONOCYTES % (AUTO) 9.2 %; NEUTROPHILS # (AUTO) 5.6 10^3/uL (1.5-6.6); NEUTROPHILS % (AUTO) 62.4 %; RED BLOOD COUNT 4.49 10^6/uL (4.20-5.40); RED CELL DISTRIBUTION WIDTH 15.9 % (12.0-15.0)
[2016-08-22 05:22] LABS: ALBUMIN/GLOBULIN RATIO 1.1 (1.0-2.2); BILIRUBIN,TOTAL 0.6 mg/dL (0.2-1.0); CREATININE 0.5 mg/dL (0.4-1.0); PHOSPHORUS 1.9 mg/dL (2.5-4.6); POTASSIUM 3.1 mmol/L (3.5-5.0); TOTAL PROTEIN 5.8 g/dL (6.7-8.2)
[2016-08-22] MEDS ORDERED: POTASSIUM CHLORIDE 20 MEQ TABLET PO SCH ×2 (06:00→11:00)
[2016-08-22] MEDS: PROPRANOLOL 10 MG TABLET PO SCH ×3 (06:37→21:37)
[2016-08-22] MEDS: SODIUM CHLORIDE FLUSH 0.9% 10 ML SYRINGE IVP SCH ×3 (06:37→15:08)
[2016-08-22] MEDS: INSULIN ASPART 300 UNIT/3 ML PEN SUBQ SCH ×4 (07:50→20:46)
[2016-08-22] MEDS ORDERED: POTASSIUM PHOSPHATE 15 MMOL in SODIUM CHLORIDE 0.9% 250 ML IV SCH (08:00)
--- NOTE | 2016-08-22 08:31 | PROVIDER PROGRESS NOTE ---
Assessment/Plan - Problem List (1) DKA (diabetic ketoacidoses) Qualifiers: Diabetes mellitus type: type 1 Diabetes mellitus complication detail: without coma Qualified Code(s): E10.10 - Type 1 diabetes mellitus with ketoacidosis without coma Assessment/Plan: # DKA mild, admitted to ICU and started on insulin gtt. improved fairly quickly and was transitioned to sq insulin overnight. tolerating diet. continue lantus 50 bid ( pt uses 70 bid ). BS improved. # N/V and abd pain improved. pt is tolerating diet # Left external otitis media start cortisporin otic dilaudid 1mg IV x 1 for severe pain and oxycodone 5mg x 1 # tobacco dependence nicotine patch. # homeless chronically, apparently has been provided resources for emergency houses on many occasions. - Current Meds Current Meds: Current Medications Generic Name Dose Route Start Last Admin Trade Name Freq PRN Reason Stop Dose Admin Gabapentin 300 mg 08/21/16 21:00 08/21/16 20:28 Neurontin PO 300 mg BID SYLVIA Administration Promethazine HCl 6.25 mg/ 50.25 mls @ 100 mls/hr 08/21/16 15:42 08/21/16 16:36 Sodium Chloride IV 100 mls/hr Q6H PRN Administration Nausea / Vomiting Acetaminophen 100 mls @ 400 mls/hr 08/21/16 19:45 08/22/16 03:47 Ofirmev IV 400 mls/hr Q6HR PRN Administration PAIN Insulin Aspart 1 - 5 unit 08/21/16 21:00 08/22/16 07:50 Novolog SUBQ Not Given 0800,1200,1700,2100 SYLVIA Protocol Insulin Glargine 50 unit 08/21/16 21:00 08/21/16 20:28 Lantus Solostar SUBQ 50 unit BID SYLVIA Administration Pantoprazole Sodium 40 mg 08/21/16 21:00 08/21/16 20:28 Protonix IVP 40 mg BID SYLVIA Administration Potassium Chloride 40 meq 08/22/16 06:00 08/22/16 06:37 K-Dur PO 08/22/16 10:00 40 meq ONCE SYLVIA Administration Protocol Propranolol HCl 10 mg 08/21/16 22:00 08/22/16 06:37 Inderal PO 10 mg TID SYLVIA Administration Sodium Chloride 10 ml 08/21/16 22:00 08/22/16 06:37 Normal Saline Flush 0.9% IVP 10 ml Q8HR SYLVIA Administration - Lab Result Lab results reviewed: Yes Fish Bone Diagrams: 08/22/16 04:10 08/23/16 04:51 - Additional Planning My Orders: My Active Orders 08/21/16 14:07 Blood Glucose POC [RC] Initiate Hypoglycemia Protocol [RC] .protocol Notify Provider - Specific Ins [RC] PRN 08/21/16 15:42 Promethazine Inj [Phenergan Inj] 6.25 mg Sodium Chloride 0.9% [Normal Saline 0.9%] 50 ml IV Q6H 08/21/16 15:43 Promethazine [Phenergan] 25 mg PO Q6HR PRN 08/21/16 16:08 Admit \ Transfer \ Status [RC] ONCE 08/21/16 17:52 Message to Nursing [RC] QSHIFT 08/21/16 21:00 Gabapentin [Neurontin] 300 mg PO BID Insulin Glargine [Lantus Solostar] 50 unit SUBQ BID 08/22/16 04:10 TSH [THYROID STIMULATING HORMONE] [IAI] Routine 08/22/16 06:00 Potassium Chloride [K-Dur] 40 meq PO ONCE 08/22/16 08:00 Potassium Phosphate 15 mmol Sodium Chloride 0.9% [Normal Saline 0.9%] 250 ml IV ONCE 08/23/16 05:00 CMP, RFLX TO IONIZED CA IF [CHEM] DAILYLAB MAGNESIUM [CHEM] DAILYLAB PHOSPHORUS [CHEM] DAILYLAB Subjective - Subjective Patient Reports: Resting Comfortably, Abdominal Pain, Diarrhea (pt c/o loose stool this morning and crampy abd pain. tolerating diet.) Objective Vital Signs: Vital Signs - 24 hr 08/21/16 08/21/16 08/21/16 14:47 15:58 15:59 Temperature 36.8 C 37.1 C Heart Rate [ 126 H 133 H Monitoring electrodes] Respiratory 18 25 H Rate Blood Pressure 140/96 H 165/111 H [Right Brachial artery] O2 Saturation 96 100 08/21/16 08/21/16 08/21/16 16:52 18:00 19:00 Temperature Heart Rate [ 138 H 132 H 135 H Monitoring electrodes] Respiratory 27 H 21 20 Rate Blood Pressure 147/98 H 180/108 H 175/103 H [Right Brachial artery] O2 Saturation 97 96 95 08/21/16 08/21/16 08/21/16 19:48 21:00 21:57 Temperature 36.9 C Heart Rate [ 137 H 130 H 113 H Monitoring electrodes] Respiratory 20 17 18 Rate Blood Pressure 165/87 H 159/90 H 144/86 H [Right Brachial artery] O2 Saturation 95 96 97 08/21/16 08/22/16 08/22/16 23:00 00:00 01:00 Temperature 37.0 C Heart Rate [ 112 H 112 H 106 H Monitoring electrodes] Respiratory 18 17 15 Rate Blood Pressure 133/84 H 140/81 H 131/81 H [Right Brachial artery] O2 Saturation 98 98 97 08/22/16 08/22/16 08/22/16 02:00 03:00 04:00 Temperature 36.8 C Heart Rate [ 108 H 103 H 106 H Monitoring electrodes] Respiratory 18 11 L 15 Rate Blood Pressure 147/95 H 144/94 H 138/89 H [Right Brachial artery] O2 Saturation 96 96 97 08/22/16 08/22/16 08/22/16 05:00 06:00 07:40 Temperature 36.5 C Heart Rate [ 108 H 109 H 98 Monitoring electrodes] Respiratory 21 14 16 Rate Blood Pressure 140/86 H 134/89 H 146/110 H [Right Brachial artery] O2 Saturation 97 100 99 Oxygen O2 Source Room air I&O (Last 24 Hrs): Intake and Output Totals x24h 08/20/16 08/21/16 08/22/16 23:59 23:59 23:59 Intake Total 3254 1890 Output Total 750 1700 Balance 2504 190 General: Alert, Oriented x3, No acute distress (pt sitting up in a chair at bedside. NAD) Cardiovascular: Regular rate (tachycardic) Respiratory: Chest non-tender, No respiratory distress, Breath sounds nml Abdomen: Normal bowel sounds, Soft, No tenderness - Results Results: Laboratory Results WBC 9.0 x10^3/uL (4.8-10.8) 08/22/16 04:10 RBC 4.49 10^6/uL (4.20-5.40) 08/22/16 04:10 Hgb 11.6 g/dL (12.0-16.0) L 08/22/16 04:10 Hct 34.8 % (37.0-47.0) L 08/22/16 04:10 MCV 77.5 fL (81.0-99.0) L 08/22/16 04:10 MCH 25.8 pg (27.0-31.0) L 08/22/16 04:10 MCHC 33.3 g/dL (32.0-36.0) 08/22/16 04:10 RDW 15.9 % (12.0-15.0) H 08/22/16 04:10 Plt Count 304 10^3/uL (130-450) 08/22/16 04:10 MPV 7.5 fL (7.9-10.8) L 08/22/16 04:10 Neut # 5.6 10^3/uL (1.5-6.6) 08/22/16 04:10 Lymph # 2.4 10^3/uL (1.5-3.5) 08/22/16 04:10 [place] # 0.8 10^3/uL (0.0-1.0) 08/22/16 04:10 Eos # 0.1 10^3/uL (0.0-0.7) 08/22/16 04:10 Baso # 0.1 10^3/uL (0.0-0.1) 08/22/16 04:10 Absolute Nucleated RBC 0.00 x10^3/uL 08/22/16 04:10 Nucleated RBCs 0.0 /100WBC 08/22/16 04:10 VBG pH 7.386 (7.31-7.41) 08/21/16 19:55 VBG pCO2 24.8 mmHg (41-51) L 08/21/16 18:14 VBG pO2 147.0 mmHg (25-47) H 08/21/16 18:14 VBG HCO3 14.3 mmol/L (23-28) L 08/21/16 18:14 VBG Total CO2 15.1 mmol/L (24-29) L 08/21/16 18:14 VBG O2 Saturation 98.7 % (60-80) H 08/21/16 18:14 VBG Base Excess -8.9 mmol/L (-2 - +2) L 08/21/16 18:14 Ionized Calcium 1.09 mmol/L (1.15-1.33) L 08/21/16 19:55 Sodium 135 mmol/L (135-145) 08/22/16 04:10 Potassium 3.1 mmol/L (3.5-5.0) L 08/22/16 04:10 Chloride 105 mmol/L (101-111) 08/22/16 04:10 Carbon Dioxide 23 mmol/L (21-32) 08/22/16 04:10 Anion Gap 7.0 (6-13) 08/22/16 04:10 BUN 13 mg/dL (6-20) 08/22/16 04:10 Creatinine 0.5 mg/dL (0.4-1.0) 08/22/16 04:10 Estimated GFR (MDRD) 141 (>89) 08/22/16 04:10 Glucose 170 mg/dL (70-100) H 08/22/16 04:10 Glycated Hemoglobin 15.1 % (4.6-6.2) H 08/21/16 16:50 Estim Average Glucose 387 (70-100) H 08/21/16 16:50 Lactic Acid 1.0 mmol/L (0.5-2.2) 08/21/16 10:05 Calcium 8.0 mg/dL (8.5-10.3) L 08/22/16 04:10 Ionized Calcium YES 08/21/16 19:55 Phosphorus 1.9 mg/dL (2.5-4.6) L 08/22/16 04:10 Magnesium 1.9 mg/dL (1.7-2.8) 08/22/16 04:10 Total Bilirubin 0.6 mg/dL (0.2-1.0) 08/22/16 04:10 AST 14 IU/L (10-42) 08/22/16 04:10 ALT 39 IU/L (10-60) 08/22/16 04:10 Alkaline Phosphatase 179 IU/L (42-121) H 08/22/16 04:10 Total Protein 5.8 g/dL (6.7-8.2) L 08/22/16 04:10 Albumin 3.0 g/dL (3.2-5.5) L 08/22/16 04:10 Globulin 2.8 g/dL (2.1-4.2) 08/22/16 04:10 Albumin/Globulin Ratio 1.1 (1.0-2.2) 08/22/16 04:10 Lipase 15 U/L (22-51) L 08/21/16 10:05 Urine Color YELLOW 08/21/16 12:35 Urine Clarity HAZY (CLEAR) 08/21/16 12:35 Urine pH 5.5 PH (5.0-7.5) 08/21/16 12:35 Ur Specific Switchback >=1.030 (1.002-1.030) H 08/21/16 12:35 Urine Protein TRACE mg/dL (NEGATIVE) 08/21/16 12:35 Urine Glucose (UA) 250 mg/dL (NEGATIVE) H 08/21/16 12:35 Urine Ketones >=80 mg/dL (NEGATIVE) H 08/21/16 12:35 Urine Occult Blood MODERATE (NEGATIVE) H 08/21/16 12:35 Urine Nitrite NEGATIVE (NEGATIVE) 08/21/16 12:35 Urine Bilirubin MODERATE (NEGATIVE) H 08/21/16 12:35 Urine Urobilinogen 0.2 (NORMAL) E.U./dL (NORMAL) 08/21/16 12:35 Ur Leukocyte Esterase NEGATIVE (NEGATIVE) 08/21/16 12:35 Urine RBC 6-10 /HPF (0-5) H 08/21/16 12:35 Urine WBC 0-3 /HPF (0-5) 08/21/16 12:35 Ur Squamous Epith Cells FEW Squamous (<= Few) 08/21/16 12:35 Urine Bacteria Few /HPF (None Seen) 08/21/16 12:35 Urine Casts 3-5 Hyaline Casts /LPF 08/21/16 12:35 Ur Microscopic Review INDICATED 08/21/16 12:35 Urine Culture Comments NOT INDICATED 08/21/16 12:35 Urine HCG, Qual NEGATIVE 08/21/16 12:35 Urine Opiates Screen NEGATIVE (NEGATIVE) 08/21/16 12:35 Ur Oxycodone Screen NEGATIVE (NEGATIVE) 08/21/16 12:35 Urine Methadone Screen NEGATIVE (NEGATIVE) 08/21/16 12:35 Ur Propoxyphene Screen NEGATIVE (NEGATIVE) 08/21/16 12:35 Ur Barbiturates Screen NEGATIVE (NEGATIVE) 08/21/16 12:35 Ur Tricyclics Screen NEGATIVE (NEGATIVE) 08/21/16 12:35 Ur Phencyclidine Scrn NEGATIVE (NEGATIVE) 08/21/16 12:35 Ur Amphetamine Screen NEGATIVE (NEGATIVE) 08/21/16 12:35 U Methamphetamines Scrn NEGATIVE (NEGATIVE) 08/21/16 12:35 U Benzodiazepines Scrn NEGATIVE (NEGATIVE) 08/21/16 12:35 Urine Cocaine Screen NEGATIVE (NEGATIVE) 08/21/16 12:35 U Cannabinoids Screen NEGATIVE (NEGATIVE) 08/21/16 12:35 - Procedures Procedures: Procedures INSERT INFUSION DEV IN R INT JUGULAR VEIN, PERC (04/21/16) INSERTION OF INFUSION DEV INTO SUP VENA CAVA, PERC APPROACH (03/27/16) INSERTION OF INFUSION DEVICE INTO R ATRIUM, PERC APPROACH (12/04/15) TRANSFUSE NONAUT RED BLOOD CELLS IN PERIPH VEIN, PERC (04/21/16) ULTRASONOGRAPHY OF RIGHT JUGULAR VEINS, GUIDANCE (04/21/16)
[2016-08-22] MEDS ORDERED: POTASSIUM CHLORIDE 20 MEQ TABLET PO ONE (08:33)
[2016-08-22] MEDS: PANTOPRAZOLE 40 MG VIAL IVP SCH ×2 (08:47→20:43)
[2016-08-22] MEDS: SODIUM CHLORIDE FLUSH 0.9% 10 ML SYRINGE IVP PRN ×4 (08:48→11:19)
[2016-08-22] MEDS: SERTRALINE 50 MG TABLET PO SCH (09:18)
[2016-08-22] MEDS: GABAPENTIN 300 MG CAPSULE PO SCH ×2 (09:18→20:43)
[2016-08-22] MEDS: ENOXAPARIN 40 MG/0.4 ML SYRINGE SUBQ SCH (09:21)
[2016-08-22] MEDS: INSULIN GLARGINE 300 UNIT/3 ML PEN SUBQ SCH ×2 (09:23→20:46)
[2016-08-22] MEDS: NEUTRA-PHOS 250 MG TABLET PO SCH ×3 (11:56→15:12)
[2016-08-22] MEDS ORDERED: oxyCOD/ACETAMIN 5 MG/325 MG TABLET PO SCH (13:00)
[2016-08-22] MEDS ORDERED: HYDROmorphone 1 MG/ML SYRINGE IVP SCH (13:00)
[2016-08-22] MEDS: NEOMYCIN/POLYMYX/HC OTIC DROPS LEFTEAR SCH ×3 (13:07→21:37)
[2016-08-22] MEDS ORDERED: oxyCODONE 5 MG TABLET PO SCH (15:00)
[2016-08-22] MEDS: NICOTINE 14 MG PATCH TOP SCH (15:06)
[2016-08-22] MEDS ORDERED: PROMETHAZINE 25 MG TABLET PO PRN (15:34)
[2016-08-22] MEDS ORDERED: A & D OINTMENT 5 GM PACKET TOP ONE (17:17)
[2016-08-22 17:22] LABS: HEMOGLOBIN A1C 1.46 g/dL
[2016-08-22 17:33] LABS: T3 UPTAKE 46.3 % (32.0-48.4)
[2016-08-22] MEDS ORDERED: AMITRIPTYLINE 25 MG TABLET PO PRN (20:07)
[2016-08-22] MEDS ORDERED: traZODone 50 MG TABLET PO SCH (21:00)
[2016-08-23 05:08] LABS: ALBUMIN/GLOBULIN RATIO 1.2 (1.0-2.2); BILIRUBIN,TOTAL 0.3 mg/dL (0.2-1.0); BUN - BLOOD UREA NITROGEN 17 mg/dL (6-20); CALCIUM 8.3 mg/dL (8.5-10.3); CARBON DIOXIDE - CO2 28 mmol/L (21-32); CHLORIDE 109 mmol/L (101-111); CREATININE 0.3 mg/dL (0.4-1.0); GFR - MDRD 255 (>89); GLUCOSE 77 mg/dL (70-100); MAGNESIUM 1.7 mg/dL (1.7-2.8); PHOSPHORUS 3.3 mg/dL (2.5-4.6); POTASSIUM 3.8 mmol/L (3.5-5.0); SODIUM 141 mmol/L (135-145); TOTAL PROTEIN 5.3 g/dL (6.7-8.2)
[2016-08-23 05:25] LABS: CALCIUM, IONIZED 1.13 mmol/L (1.15-1.33); VBG PH 7.442 (7.31-7.41)
[2016-08-23] MEDS: NEOMYCIN/POLYMYX/HC OTIC DROPS LEFTEAR SCH (05:44)
[2016-08-23] MEDS: PROPRANOLOL 10 MG TABLET PO SCH (05:44)
[2016-08-23] MEDS: SODIUM CHLORIDE FLUSH 0.9% 10 ML SYRINGE IVP SCH (05:44)
[2016-08-23] MEDS: INSULIN ASPART 300 UNIT/3 ML PEN SUBQ SCH ×2 (08:00→11:30)
[2016-08-23 08:04] VITALS: BP 135/91
[2016-08-23] MEDS: GABAPENTIN 300 MG CAPSULE PO SCH (09:31)
[2016-08-23] MEDS: SERTRALINE 50 MG TABLET PO SCH (09:31)
[2016-08-23] MEDS: INSULIN GLARGINE 300 UNIT/3 ML PEN SUBQ SCH (09:34)
[2016-08-23] MEDS: NICOTINE 14 MG PATCH TOP SCH (09:36)
[2016-08-23] MEDS: PANTOPRAZOLE 40 MG VIAL IVP SCH (09:36)
[2016-08-23] MEDS: ENOXAPARIN 40 MG/0.4 ML SYRINGE SUBQ SCH (09:37)
--- NOTE | 2016-08-23 10:39 | HISTORY & PHYSICAL EXAMINATION ---
CHIEF COMPLAINT: Nausea, vomiting, and abdominal pain. HISTORY OF PRESENT ILLNESS: The patient is a 35-year-old female with a history of type 1 diabetes uncontrolled and recurrent DKA. She presents with complaint of stomach cramps that began about 3 days ago which progressed to nausea, vomiting, and unable to keep food down. The patient states she is only able to eat ice chips. She reports left ear pain and drainage for the past 3 days. She denies fever or chills, sore throat, cough or cold symptoms. She feels somewhat shortness of breath, denies chest pain, has had no diarrhea. She denies hematemesis or melena. The patient states she is homeless and slept in an abandoned house last night. She reports taking Lantus daily and states she has not missed a dose. PAST MEDICAL HISTORY: 1. Type 1 diabetes noncompliant with therapy and multiple admissions for DKA. 2. History of peripheral vascular disease and neuropathy. 3. Chronic pain. 4. History of chronic tachycardia. 5. Hypertension. 6. Bipolar disorder and anxiety. 7. History of polysubstance abuse which patient states she is in recovery. PAST SURGICAL HISTORY: Cholecystectomy and tonsillectomy. ALLERGIES 1. CODEINE. 2. HYDROCODONE. 3. MACROBID. MEDICATIONS ON ADMISSION: 1. Insulin 70 units b.i.d. 2. Novolog high sliding scale. The patient is not taking any other medications. REVIEW OF SYSTEMS: The patient denies fevers or chills. She denies change in weight. HEENT: The patient is edentulous. Denies st or neck pain. CARDIAC: Negative. PULMONARY: Mild shortness of breath. No dyspnea on exertion. No pleuritic chest pain. Denies wheeze. GI: See HPI. : Denies dysuria, frequency or urgency. Denies hematuria. EXTREMITIES: Denies calf tenderness, swelling, or edema. NEURO: Negative. PSYCH: The patient reports history of anxiety. EXAMINATION: VITAL SIGNS: Temperature is 36.1, heart rate is 131, blood pressure is 133/101, respiratory rate is 100, oxygen saturation 100% on room air. GENERAL: The patient is alert, oriented, she appears uncomfortable, she is in no acute distress. HEENT: Pupils are equal, round, reactive to light. EOMI. Anicteric, no nystagmus. Oropharynx mucous membranes moist. No erythema or lesions. The patient is edentulous. NECK: Supple without adenopathy. HEART: Tachycardic, regular, no murmurs, rubs, or gallops. LUNGS: Clear to auscultation bilaterally. ABDOMEN: Obese, soft, nontender, nondistended. No hepatosplenomegaly appreciated. EXTREMITIES: No clubbing, cyanosis, or edema. NEUROLOGIC: Face is symmetric. Tongue is midline. Normal speech. Moving all extremities. PSYCH: Patient is appropriate and cooperative, she is not agitated. She has a normal affect. EKG I personally reviewed and interpreted shows sinus tachycardia with a heart rate of 127, left atrial enlargement, left ventricular hypertrophy and poor R- wave progression. LABS: White blood count is 14, hematocrit is 46.9, platelet count is 462, sodium is 129, potassium is 4.8, carbon dioxide is 9, anion gap is 29, BUN is 44 , creatinine is 1.1. Glucose is 279, urinalysis is unremarkable. Urine toxicology is negative. ASSESSMENT AND PLAN: Patient is a 35-year-old female who has a history of type 1 diabetes and recurrent DKA. She is home with a noncompliance with her therapy. She presents today with abdominal pain, nausea, and vomiting. 1. Type 1 diabetes, noncompliant with medication, presents with DKA. 2. Diabetic ketoacidosis with carbon dioxide 9, anion gap of 29. Patient has no sign of infection causing DKA. She reports taking medications as directed and her blood sugar is not significantly elevated. I am concerned she may be using her short acting and not long acting therapy. The patient will be admitted to the intensive care unit, DKA protocol, IV fluid resuscitation. Monitor electrolytes and adjust fluid to maintain potassium within normal limits. 3. Sinus tachycardia. The patient apparently has a history of tachycardia. TSH last checked in November 2015 0.81. Will repeat TSH today. 4. Hyponatremia. Suspect this is due to volume depletion, glucose not elevated significantly to cause pseudohyponatremia. Will provide IV fluid resuscitation and monitor chemistry panel. 5. Acute kidney injury. Above patient's baseline, also likely due to volume depletion. Will hydrate and repeat labs. Avoid nephrotoxic therapy. 6. Homeless. Will request social work consult to provide patient with community resources, and encourage her to followup with primary care provider to help manage diabetes as well as diabetic education. CODE STATUS: THE PATIENT IS FULL CODE. MTDD
--- NOTE | 2016-08-23 10:39 | Discharge Plan ---
Discharge Plan Disposition: 01 Home, Self Care Condition: Stable Diet: Diabetic Activity Restrictions: No Restrictions Additional Instructions or Follow Up instructions: please follow up with your primary care provider. Stop smoking. take cortisporin otic 3 drops in both ears three times a day. No Smoking: If you smoke, Please STOP! Call for help.
[2016-08-23] MEDS ORDERED: INSULIN LISPRO 100 UNIT/1 ML 10 ML MDV SUBQ SCH (11:09)
[2016-08-23] MEDS ORDERED: INSULIN ASPART 300 UNIT/3 ML PEN SUBQ SCH (11:18)
--- NOTE | 2016-08-24 09:10 | DISCHARGE SUMMARY ---
Date of admit 08/21/16 Date of Discharge 08/24/15 DISCHARGE DIAGNOSES 1. Type 1 diabetes, noncompliant with medication. 2. Diabetic ketoacidosis. 3. Sinus tachycardia. 4. Hyponatremia. 5. Acute kidney injury. 6. Left external otitis media. HOSPITAL COURSE 1. Type 1 diabetes, unknown complications, noncompliant with therapy. The patient is homeless and has difficulty managing her medications and diet. Her blood sugar was not significantly elevated on admit, but her chemistry panel suggested that she was in DKA. A1C 13.6. 2. Diabetic ketoacidosis with carbon dioxide 9 and anion gap of 29. Patient was admitted to the ICU. She was started on insulin drip. She received several liters of IV fluids. Her ketoacidosis improved fairly quickly and she was transitioned to subcu insulin primarily because she was hungry and wanted to eat. She tolerated the diet and the following day, her labs were back to within normal limits and she was tolerating a diabetic diet. 3. Sinus tachycardia. TSH was 0.45. Free T4 and T3 are in the lower range of normal and should be repeated within the next 3-6 months to make sure they are not trending to hypothyroid direction. 4. Hyponatremia due to volume depletion, improved with IV fluid. 5. Acute kidney injury, improved with IV fluid. 6. Left external otitis. The patient had significant tenderness, erythema, and inflammation on exam. She was started on Cortisporin Otic 4 drops in her left ear 3 times daily. Prior to discharge, she started to complain about right ear pain and tenderness and was told to use drops in that ear as well. Patient was discharged with Cortisporin Otic 4 drops 3 times daily. She was told to continue insulin. She takes 70 units twice daily, but adjust this if she is not going to eat much at a high sliding scale insulin that she also self adjusts. She was given a prescription for [employer] test strips, #100, and 31G Superfine 5/16 syringes, 1 box. Patient was encouraged to follow up with her primary care provider to help manage her diabetes. She was also encouraged to reach out to support systems and consider emergency alf until she is feeling better. Thirty-five minutes spent on discharging patient. BRYANNA
== END 2016-08-23 12:20 | disposition home or self-care (01) | DRG 638 ==
LOC: EDUNIT# → ED 09:03 → ICU 14:02
PROVIDERS: ADMIT Internal Medicine; ATTEND Internal Medicine
DX: E10.10 Type 1 diabetes mellitus with ketoacidosis without coma (principal); E87.1 Hypo-osmolality and hyponatremia; N17.9 Acute kidney failure, unspecified; R00.0 Tachycardia, unspecified; E86.0 Dehydration; H66.92 Otitis media, unspecified, left ear; E10.42 Type 1 diabetes mellitus with diabetic polyneuropathy; E10.51 Type 1 diabetes mellitus with diabetic peripheral angiopathy without gangrene; G89.4 Chronic pain syndrome; I10 Essential (primary) hypertension; F41.0 Panic disorder [episodic paroxysmal anxiety]; F31.9 Bipolar disorder, unspecified; F17.200 Nicotine dependence, unspecified, uncomplicated; I25.2 Old myocardial infarction; Z79.4 Long term (current) use of insulin; Z59.0 Homelessness; Z87.898 Personal history of other specified conditions; Z91.14 Patient's other noncompliance with medication regimen
CPT/HCPCS: 36415; 80048; 80053; 80306; 81001; 81003; 81025; 82330; 82803; 82947; 83036; 83605; 83690; 83735; 84100; 84439; 84443; 84479; 84481; 85025; 86780; 87086; 87150; 87389; 87493; 93005; 96361; 96365; 96375; 99284; 99285

== ENCOUNTER 2016-09-07 06:58 | Outpatient (CLI) | payer MEDICAID | END 2016-09-07 06:59 | disposition critical access hospital (66) | LOC: EMS 06:58 | PROVIDERS: ATTEND Surgery | DX: R10.9 Unspecified abdominal pain (principal); R11.2 Nausea with vomiting, unspecified | CPT/HCPCS: A0425; A0427 ==

== ENCOUNTER 2016-09-07 07:15 | Inpatient (IN) | payer MEDICAID ==
[2016-09-07] MEDS ORDERED: KETOROLAC 60 MG/2 ML VIAL IVP STA (07:22)
[2016-09-07] MEDS ORDERED: SODIUM CHLORIDE 0.9% 1,000 ML IV ONE ×4 (07:22→20:19)
[2016-09-07] MEDS ORDERED: DICYCLOMINE 10 MG CAPSULE PO STA ×2 (07:23→10:22)
--- NOTE | 2016-09-07 07:25 | ED Physician Documentation ---
History of Present Illness - Stated complaint Stated Complaint: N/V/ABD PX - Chief complaint Chief Complaint: Abd Pain - Additonal information Additional information: hx from EMS and pt 35 f well known to for freq DKA to ER by EMS for NV diffuse abd cramping X 12 hr after eating potato salad no fever no diarrhea no bloody emesis denies preg no travel no sick contacts prior abd surgery ramiro Review of Systems Constitutional: denies: Fever, Chills Throat: denies: Sore throat Cardiac: denies: Chest pain / pressure Respiratory: denies: Dyspnea GI: reports: Abdominal Pain, Nausea, Vomiting. denies: Diarrhea, Hematemesis : denies: Now EGA (denies) Skin: denies: Rash Endocrine: denies: Easy bruising / bleeding Immunocompromised: denies: Immunocompromised PD PAST MEDICAL HISTORY - Past Medical History Past Medical History: Yes Cardiovascular: Hypertension, High cholesterol, Peripheral Vascular Disease, [place] Respiratory: None Neuro: Peripheral neuropathy Endocrine/Autoimmune: Type 1 diabetes GI: Pancreatitis [employer]OB SITE [employer]PERINTENDENT: None : None HEENT: None Psych: Depression, Anxiety, Panic attacks Musculoskeletal: Fibromyalgia Derm: None - Past Surgical History Past Surgical History: Yes General: Cholecystectomy HEENT: Tonsil/Adenoidectomy - Present Medications Home Medications: Ambulatory Orders Medication Instructions Recorded Confirmed Insulin Aspart [Novolog Flexpen] 9 unit SQ TIDWM #2 insuln.pen 07/09/16 08/21/16 Insulin Glargine,Hum.rec.anlog 70 unit SUBQ BID #2 vial 07/09/16 08/21/16 [Lantus] Dicyclomine [Bentyl] 10 mg PO Q8H PRN #20 capsule 09/07/16 Ondansetron Odt [Zofran] 4 mg TL Q6H PRN #10 tablet 09/07/16 - Allergies Allergies/Adverse Reactions: Allergies Allergy/AdvReac Type Severity Reaction Status Date / Time codeine Allergy Hives Verified 08/21/16 09:07 hydrocodone Allergy Hives Verified 08/21/16 09:07 milk AdvReac Cramps Verified 08/21/16 09:07 nitrofurantoin AdvReac Headache Verified 08/21/16 09:07 [From Macrobid] PAPER TAPE AdvReac Unknown Uncoded 08/21/16 09:07 - Social History Does the pt smoke?: Yes Smoking Status: Current some day smoker Does the pt drink ETOH?: No Does the pt have substance abuse?: No - Immunizations Immunizations are current?: Yes - POLST Patient has POLST: No PD ED PE NORMAL - Vitals Vital signs reviewed: Yes - General General: Alert and oriented X 3 - HEENT HEENT: PERRL - Neck Neck: Supple, no meningeal sign - Cardiac Cardiac: RRR - Respiratory Respiratory: No respiratory distress, Clear bilaterally - Abdomen Abdomen: Soft, Other (dec BS, diffuse TTP s rebound or guarding) Results - Vitals Vitals: Vital Signs - 24 hr 09/07/16 09/07/16 09/07/16 07:17 07:28 07:35 Temperature 36.3 C L Heart Rate 116 H 117 H Respiratory 20 22 Rate Blood Pressure 112/65 122/83 H O2 Saturation 98 97 09/07/16 09/07/16 09/07/16 08:44 10:13 12:19 Temperature Heart Rate 125 H 124 H 124 H Respiratory 22 18 22 Rate Blood Pressure 150/92 H 137/91 H 126/85 H O2 Saturation 100 99 97 09/07/16 09/07/16 09/07/16 13:06 14:14 16:22 Temperature 37.1 C Heart Rate 120 H 124 H 123 H Respiratory 16 20 18 Rate Blood Pressure 133/79 H 120/69 125/76 O2 Saturation 96 97 98 09/07/16 18:31 Temperature 36.9 C Heart Rate 124 H Respiratory 20 Rate Blood Pressure 138/89 H O2 Saturation 97 Oxygen O2 Source [] Room air O2 Source Room air - Labs Labs: Laboratory Tests 09/07/16 09/07/16 09/07/16 07:35 07:35 07:35 WBC 7.6 RBC 4.69 Hgb 12.2 Hct 37.4 MCV 79.7 L MCH 26.1 L MCHC 32.7 RDW 15.7 H Plt Count 259 MPV 7.7 L Neut # 6.2 Lymph # 0.8 L [place] # 0.6 Eos # 0.1 Baso # 0.0 Absolute Nucleated RBC 0.00 Nucleated RBCs 0.0 VBG pH VBG pCO2 VBG pO2 VBG HCO3 VBG Total CO2 VBG O2 Saturation VBG Base Excess Sodium 132 L Potassium 4.0 Chloride 96 L Carbon Dioxide 26 Anion Gap 10.0 BUN 19 Creatinine 0.4 Estimated GFR (MDRD) 183 Glucose 321 H Calcium 8.8 Total Bilirubin 0.6 AST 19 ALT 24 Alkaline Phosphatase 131 H Total Protein 6.2 L Albumin 3.1 L Globulin 3.1 Albumin/Globulin Ratio 1.0 Lipase 16 L Serum HCG, Qual NEGATIVE Serum Ketones 09/07/16 09/07/16 07:35 07:35 WBC RBC Hgb Hct MCV MCH MCHC RDW Plt Count MPV Neut # Lymph # [place] # Eos # Baso # Absolute Nucleated RBC Nucleated RBCs VBG pH 7.264 L VBG pCO2 52.3 H VBG pO2 166.4 H VBG HCO3 23.2 VBG Total CO2 24.8 VBG O2 Saturation 98.9 H VBG Base Excess -4.3 L Sodium Potassium Chloride Carbon Dioxide Anion Gap BUN Creatinine Estimated GFR (MDRD) Glucose Calcium Total Bilirubin AST ALT Alkaline Phosphatase Total Protein Albumin Globulin Albumin/Globulin Ratio Lipase Serum HCG, Qual Serum Ketones NEGATIVE - Rads (name of study) CT abd pelvis Radiology: See rad report (massive peripancreatic and central mesenenteric adenopathy, inital ddx would be metastatic pancreatic cancer or less likely lymphoma (per d/w radiology this appears to be metastatic pancreatic cancer), rec CT pancreatic protocol) CT abd pelvis pancreatic protocol with contrast Radiology: See rad report (chromic lung dz, due to poor vasculature rterial phase is non diagnostic, no confident vis of primary pancreatic lesion but the location or the edema and adenopathy still strongly sugegst pancreatic neoplasm , lymphoma and adenocarcinoma of small bowel also in ddx but less likely, small ascites) PD MEDICAL DECISION MAKING - ED course ED course: not in DKA blood sugar came down with fluids labs reassuring suspect food poisoning since sx started after potato salad non surgical abd exam - did not think imaging indicated planned to dc after 1 l NS but pt HR up to 120s so reasssed pt she was asleep but awoke with continued cramps now moved to lower abd , adb exam still diffuse TTP s surgical findings will give another L NS and more zofran and bentyl do not feel narcotics are appropriate for food poisoning and may mask worsening abd sx despite toradol ofirmex bentyl zofran and phenergan - eventually dilaudid as well - and numerous L IVF pt still with intractable pain NV so got CT and radiology called to report pt CT suggest metastatiuc pancreatic cancer - rec pancreas CT which was done and did not definitively diagnosis same but ruled out many other causes of these CT findings and sx, pancreatic cancer still lead ddx though lymphoma and adenocarcinoma also possible CT was done as an ER pt because if results showed something that needed transfer to a tertiary care facility would have done that directly from the ER - but per rad nodes are not easily available to be reached by GI IR etc and she rec gen surgery consult so will admit for intractable NV and abd pain and hopefully while admitted for that, pt can get a surgical consult to see if a biopsy can be performed to assist the diagnosis [facility] transportation planning technician Dr Lozada who is amenable to this plan Departure - Departure Disposition: 66 [facility] DC/Xfer Clinical Impression: Dehydration, Intra-abdominal lymphadenopathy Condition: Good Instructions: ED Dehydration, Foodborne Illness Prescriptions: Dicyclomine [Bentyl] 10 mg PO Q8H PRN #20 capsule PRN Reason: stomach cramps Ondansetron Odt [Zofran] 4 mg TL Q6H PRN #10 tablet PRN Reason: Nausea / Vomiting Forms: Activity restrictions
[2016-09-07] MEDS ORDERED: DICYCLOMINE 10 MG CAPSULE PO ONE ×2 (07:31→10:35)
[2016-09-07] MEDS ORDERED: KETOROLAC 30 MG/ML VIAL ONE (07:31)
[2016-09-07 07:43] LABS: BASOPHILS % (AUTO) 0.5 %; EOSINOPHILS # (AUTO) 0.1 10^3/uL (0.0-0.7); HCT - HEMATOCRIT 37.4 % (37.0-47.0); HGB - HEMOGLOBIN 12.2 g/dL (12.0-16.0); LYMPHOCYTES # (AUTO) 0.8 10^3/uL (1.5-3.5); MEAN CORPUSCULAR HEMOGLOBIN 26.1 pg (27.0-31.0); MEAN CORPUSCULAR HGB CONC 32.7 g/dL (32.0-36.0); MEAN CORPUSCULAR VOLUME 79.7 fL (81.0-99.0); MEAN PLATELET VOLUME 7.7 fL (7.9-10.8); MONOCYTES # (AUTO) 0.6 10^3/uL (0.0-1.0); MONOCYTES % (AUTO) 7.6 %; NEUTROPHILS # (AUTO) 6.2 10^3/uL (1.5-6.6); NEUTROPHILS % (AUTO) 80.9 %; RED BLOOD COUNT 4.69 10^6/uL (4.20-5.40); RED CELL DISTRIBUTION WIDTH 15.7 % (12.0-15.0); UNCORRECTED WHITE BLOOD COUNT 7.6 x10^3/uL; WHITE BLOOD COUNT 7.6 x10^3/uL (4.8-10.8)
[2016-09-07 07:57] LABS: VBG BASE EXCESS -4.3 mmol/L (-2 - +2); VBG PH 7.264 (7.31-7.41); VBG TOTAL CO2 24.8 mmol/L (24-29)
[2016-09-07 07:58] LABS: VBG OXYGEN SATURATION 98.9 % (60-80)
[2016-09-07 08:00] LABS: BILIRUBIN,TOTAL 0.6 mg/dL (0.2-1.0); CALCIUM 8.8 mg/dL (8.5-10.3); CREATININE 0.4 mg/dL (0.4-1.0); TOTAL PROTEIN 6.2 g/dL (6.7-8.2)
[2016-09-07] MEDS ORDERED: ACETAMINOPHEN 1,000 MG/100 ML 100 ML IV STA (08:35)
[2016-09-07] MEDS ORDERED: PROMETHAZINE INJ 25 MG in SODIUM CHLORIDE 0.9% 50 ML IV STA (08:36)
[2016-09-07] MEDS ORDERED: PROMETHAZINE 25 MG/1 ML VIAL ONE (08:37)
[2016-09-07] MEDS ORDERED: ACETAMINOPHEN 1,000 MG/100 ML 100 ML IV ONE (08:37)
[2016-09-07] MEDS ORDERED: PROMETHAZINE 25 MG/1 ML VIAL IM STA (08:40)
[2016-09-07] MEDS ORDERED: ONDANSETRON 4 MG/2 ML VIAL IVP STA (10:21)
[2016-09-07] MEDS ORDERED: ONDANSETRON 4 MG/2 ML VIAL ONE (10:35)
[2016-09-07] MEDS ORDERED: HYDROmorphone 1 MG/ML SYRINGE IVP STA ×5 (12:46→20:17)
[2016-09-07] MEDS ORDERED: HYDROmorphone 1 MG/ML SYRINGE ONE ×5 (12:59→20:19)
--- NOTE | 2016-09-07 14:53 | CT Preliminary Report ---
Exam: CT Abdomen/Pelvis W/O IMPRESSION: 1. Massive peripancreatic and central mesenteric adenopathy. Initial differential on this limited non contrast study would be pancreatic cancer versus lymphoma. Additional history obtained from Dr. Shaheen rosas at the time of the critical report reveals that this lady has a history of diabetes which would in crease the risk for pancreatic neoplasm. 2. Recommend CT with dedicated pancreatic protocol as well as a routine CT pelvis to further evaluate . [facility] The above critical findings were discussed with by Dr. Shari Dacosta at 14:50 hrs on . SITE ID: [id number]
--- NOTE | 2016-09-07 15:11 | CT Report ---
EXAM: CT ABDOMEN AND PELVIS EXAM DATE: 09/07/2016 01:51 PM. CLINICAL HISTORY: Abdominal pain and intractable nausea and vomiting. COMPARISONS: CT abdomen 04/17/2016. CT abdomen and pelvis 03/23/2015. TECHNIQUE: Routine helical CT imaging was performed through the abdomen and pelvis. IV contrast: None . Enteric contrast: No. Reconstructions: Coronal and sagittal. In accordance with CT protocol optimization, one or more of the following dose reduction techniques w ere utilized for this exam: automated exposure control, adjustment of mA and/or KV based on patient s ize, or use of iterative reconstructive technique. FINDINGS: Lung Bases: Unremarkable. Liver: Normal. No masses. Gallbladder/Bile Ducts: Cholecystectomy. No biliary duct dilatation. Spleen: Normal. Pancreas: Massive amount of large, confluent lymph nodes surrounding the head and inferior to the bod y of the pancreas with a marked amount of edema bridging the lymph nodes. This adenopathy has progres sed since the most recent exam, not visualized on the earliest exam. No pancreatic duct dilatation. B conner and tail of pancreas small in caliber. Head appears to be enlarged and edematous although difficu lt to discern on this noncontrast study. Adrenal Glands: Normal. Kidneys: Normal. No masses or hydronephrosis. Peritoneal Cavity/Bowel: Massive amount of central and upper mesenteric adenopathy, to a lesser exten t inferiorly. No free air. Moderate amount of upper retroperitoneal adenopathy. Large and small bowel of normal caliber. Appendix not visualized. No appreciable large or small bowel wall thickening although no oral contrast administered. Pelvic Organs: Normal. The bladder and visualized pelvic organs are within normal limits. Vasculature: No aneurysms or other significant abnormality. Bones: No significant abnormality. No bony metastatic disease. Other: None. IMPRESSION: 1. Massive peripancreatic and central mesenteric adenopathy. Initial differential on this limited non contrast study would be pancreatic cancer versus lymphoma. Additional history obtained from Dr. Shaheen rosas at the time of the critical report reveals that this lady has a history of diabetes which would in crease the risk for pancreatic neoplasm. 2. Recommend CT with dedicated pancreatic protocol as well as a routine CT pelvis to further evaluate . [facility] The above critical findings were discussed with by Dr. Shari Dacosta at 14:50 hrs on . Referring Provider Line: [phone] SITE ID: [id number]
[2016-09-07] MEDS ORDERED: LORazepam 2 MG/ML SYRINGE IVP STA (16:17)
[2016-09-07] MEDS ORDERED: LORazepam 2 MG/ML SYRINGE ONE (16:42)
[2016-09-07] MEDS ORDERED: IOPAMIDOL-300 100 ML VIAL IVP ONE (17:40)
--- NOTE | 2016-09-07 18:28 | CT Preliminary Report ---
Exam: CT Abdomen/Pelvis W/ IMPRESSION: 1. Chronic lung disease. 2. Pancreatic arterial phase sequence nondiagnostic. 3. Although no confident visualization of a primary pancreatic lesion, location of the extensive nohemy a and adenopathy still raises the possibility of a pancreatic neoplasm. Lymphoma, adenocarcinoma of t he small bowel also in the differential. 4. Small amount of ascites. [facility] SITE ID: [id number]
--- NOTE | 2016-09-07 18:52 | CT Report ---
EXAM: CT ABDOMEN AND PELVIS EXAM DATE: 09/07/2016 05:34 PM. CLINICAL HISTORY: Abdominal pain. Peripancreatic and mesenteric adenopathy noted on earlier noncontra st exam. COMPARISONS: Noncontrast CT abdomen and pelvis earlier today, noncontrast CT abdomen 04/17/2016, nonc ontrast CT abdomen and pelvis 03/23/2015. TECHNIQUE: Routine angiographic scanning, 2 mm slices obtained from the hemidiaphragms inferiorly to the iliac crest in the arterial phase. Subsequently, standard venous phase helical CT imaging was per formed through the abdomen and pelvis. IV contrast: 100 mL Isovue-300. Enteric contrast: No. Reconstr uctions: Coronal and sagittal. In accordance with CT protocol optimization, one or more of the following dose reduction techniques w ere utilized for this exam: automated exposure control, adjustment of mA and/or KV based on patient s ize, or use of iterative reconstructive technique. FINDINGS: Please note that the arterial phase sequence is actually a venous phase sequence. The venous phase se quence is a delayed sequence by several minutes. Lung Bases: Emphysematous changes. Liver: Normal. No masses. Gallbladder/Bile Ducts: Cholecystectomy. No biliary duct dilatation. Spleen: Normal. Pancreas: Body and tail of the pancreas moderately atrophic without pancreatic duct dilatation. On guicho th of the sequences, the enhancement of the pancreas is uniform. However, no interval change in the e xtensive peripancreatic adenopathy surrounding the uncinate process and pancreatic head, with additio nal involvement of the central mesentery. Extensive edema between the adenopathy. Adrenal Glands: Normal. Kidneys: Normal. No masses or hydronephrosis. Peritoneal Cavity/Bowel: Stable massive central mesenteric edema arising superiorly or extending from the superior retroperitoneum in the area of the pancreatic head. This displaces the large and small bowel. Large and small bowel of normal caliber without wall thickening. Trace amount of free fluid in the upper abdomen as well as the lower pelvis. The appendix is well vis ualized and normal. Pelvic Organs: Small amount of free fluid. The bladder and visualized pelvic organs are within normal limits. Vasculature: No aneurysm. Adenopathy and edema surrounding the origins of the celiac and superior mes enteric arteries. Bones: No significant abnormality. Other: None. IMPRESSION: 1. Chronic lung disease. 2. Pancreatic arterial phase sequence nondiagnostic. 3. Although no confident visualization of a primary pancreatic lesion, location of the extensive nohemy a and adenopathy still raises the possibility of a pancreatic neoplasm. Lymphoma, less likely adenoca rcinoma of the small bowel also in the differential. 4. Small amount of ascites. [facility] Referring Provider Line: [phone] SITE ID: [id number]
[2016-09-07] MEDS ORDERED: INSULIN GLARGINE 300 UNIT/3 ML PEN SUBQ STA (20:36)
[2016-09-07] MEDS ORDERED: INSULIN REGULAR HUMAN 100 UNIT/1 ML 10 ML MDV ONE (20:36)
[2016-09-07] MEDS ORDERED: INSULIN REGULAR HUMAN 100 UNIT/1 ML 10 ML MDV IVP STA (20:36)
[2016-09-07 21:44] LABS: INR 0.9 (0.8-1.2); PT - PROTHROMBIN TIME 9.7 secs (9.9-12.6)
[2016-09-07 21:56] LABS: HEMOGLOBIN A1C 1.54 g/dL
[2016-09-07] MEDS ORDERED: SODIUM CHLORIDE 0.9% 1,000 ML IV SCH (22:00)
[2016-09-07] MEDS: SODIUM CHLORIDE FLUSH 0.9% 10 ML SYRINGE IVP SCH (23:04)
[2016-09-07] MEDS: HYDROmorphone 1 MG/ML SYRINGE IVP PRN (23:07)
[2016-09-08] MEDS: SODIUM CHLORIDE FLUSH 0.9% 10 ML SYRINGE IVP PRN ×2 (00:10→20:52)
[2016-09-08] MEDS: HYDROmorphone 1 MG/ML SYRINGE IVP PRN ×8 (01:18→20:51)
[2016-09-08] MEDS: SODIUM CHLORIDE 0.9% 1,000 ML IV SCH ×2 (02:02→06:07)
[2016-09-08] MEDS: INSULIN REGULAR HUMAN 100 UNIT/1 ML 10 ML MDV SUBQ SCH ×6 (02:06→18:11)
[2016-09-08] MEDS: SODIUM CHLORIDE FLUSH 0.9% 10 ML SYRINGE IVP SCH ×3 (05:08→17:12)
[2016-09-08 06:40] LABS: VBG BASE EXCESS 0.9 mmol/L (-2 - +2); VBG PH 7.405 (7.31-7.41)
[2016-09-08 06:41] LABS: VBG OXYGEN SATURATION 94.8 % (60-80)
[2016-09-08 06:50] LABS: CALCIUM 7.7 mg/dL (8.5-10.3); CREATININE 0.4 mg/dL (0.4-1.0); POTASSIUM 3.4 mmol/L (3.5-5.0)
[2016-09-08] MEDS ORDERED: INSULIN ASPART 300 UNIT/3 ML PEN SUBQ SCH (08:00)
[2016-09-08] MEDS: POLYETHYLENE GLYCOL 3350 17 GM PACKET PO SCH (09:04)
[2016-09-08] MEDS: INSULIN ASPART 300 UNIT/3 ML PEN SUBQ SCH ×3 (09:04→18:10)
[2016-09-08] MEDS ORDERED: DEXTROSE 50% ABBOJECT 25 GM/50 ML SYRINGE ONE (09:12)
[2016-09-08] MEDS: DEXTROSE 5% 1,000 ML IV ONE ×2 (09:16→14:02)
[2016-09-08] MEDS ORDERED: DEXTROSE 50% ABBOJECT 25 GM/50 ML SYRINGE IVP ONE (09:20)
[2016-09-08] MEDS: DEXTROSE 5% 1,000 ML IV SCH ×2 (09:20→20:52)
[2016-09-08] MEDS: NICOTINE 7 MG PATCH TOP SCH (09:27)
[2016-09-08] MEDS: ACETAMINOPHEN 1,000 MG/100 ML 100 ML IV PRN ×2 (13:11→20:54)
--- NOTE | 2016-09-08 14:27 | PROVIDER PROGRESS NOTE ---
Assessment/Plan - Problem List (1) Acute generalized abdominal pain Assessment/Plan: She has severe pain still. She has less nausea. She is hungry. She is getting W/U for pancreatic mass. Dr. Lozada ordered MRI and will see her. (2) Diabetes type 1, uncontrolled Assessment/Plan: Her glucose has bee better to the point of low 55 in am and 88 at lunch time. (3) Mass in the abdomen Assessment/Plan: see above discussion. - Current Meds Current Meds: Current Medications Generic Name Dose Route Start Last Admin Trade Name Freq PRN Reason Stop Dose Admin Hydromorphone HCl 1 mg 09/07/16 21:15 09/08/16 09:53 Dilaudid Inj IVP 1 mg Q2HR PRN Administration Pain 8 to 10 Insulin Aspart 5 unit 09/08/16 08:00 09/08/16 11:27 Novolog SUBQ Not Given TIDWM SYLVIA Protocol Insulin Human Regular 2 - 10 unit 09/08/16 02:00 09/08/16 11:27 Novolin R SUBQ Not Given Q6HR SYLVIA Protocol Nicotine 1 patch 09/08/16 09:00 09/08/16 09:27 Nicoderm TOP 1 patch DAILY SYLVIA Administration Polyethylene Glycol 17 gm 09/08/16 09:00 09/08/16 09:04 Miralax PO Not Given DAILY SYLVIA Sodium Chloride 10 ml 09/07/16 21:15 09/08/16 00:10 Normal Saline Flush 0.9% IVP 10 ml PRN PRN Administration NEEDED PER PROVIDER ORDERS Sodium Chloride 10 ml 09/07/16 22:00 09/08/16 05:08 Normal Saline Flush 0.9% IVP 10 ml Q8HR SYLVIA Administration - Lab Result Fish Bone Diagrams: 09/07/16 07:35 09/08/16 06:32 - Additional Planning My Orders: My Active Orders 09/08/16 12:59 Acetaminophen 1,000 mg/100 ml [Ofirmev] 100 ml IV Q6HR Subjective - Subjective Patient Reports: Abdominal Pain Nursing Reports: Nausea, Pain Objective Vital Signs: Vital Signs - 24 hr 09/07/16 09/08/16 23:05 10:12 Temperature 37.3 C 36.6 C Heart Rate [ 124 H 200 H Brachial] Respiratory 18 22 Rate Blood Pressure 132/87 H 103/69 [Left Brachial artery] O2 Saturation 95 100 Oxygen O2 Source Room air I&O (Last 24 Hrs): Intake and Output Totals x24h 09/06/16 09/07/16 09/08/16 23:59 23:59 23:59 Intake Total 1000 909 Output Total 200 Balance 1000 709 General: Alert, Oriented x3, Cooperative HEENT: PERRLA, EOMI Neck: No JVD, No thyromegaly Neuro: Alert, Oriented Times 3 Cardiovascular: Regular rate, No murmurs Respiratory: Chest non-tender, No respiratory distress, Breath sounds nml Abdomen: Normal bowel sounds, Soft, No tenderness Extremities: No clubbing, No cyanosis, No edema Skin: No rashes, No breakdown - Results Results: Laboratory Results WBC 7.6 x10^3/uL (4.8-10.8) 09/07/16 07:35 RBC 4.69 10^6/uL (4.20-5.40) 09/07/16 07:35 Hgb 12.2 g/dL (12.0-16.0) 09/07/16 07:35 Hct 37.4 % (37.0-47.0) 09/07/16 07:35 MCV 79.7 fL (81.0-99.0) L 09/07/16 07:35 MCH 26.1 pg (27.0-31.0) L 09/07/16 07:35 MCHC 32.7 g/dL (32.0-36.0) 09/07/16 07:35 RDW 15.7 % (12.0-15.0) H 09/07/16 07:35 Plt Count 259 10^3/uL (130-450) 09/07/16 07:35 MPV 7.7 fL (7.9-10.8) L 09/07/16 07:35 Neut # 6.2 10^3/uL (1.5-6.6) 09/07/16 07:35 Lymph # 0.8 10^3/uL (1.5-3.5) L 09/07/16 07:35 Zavala # 0.6 10^3/uL (0.0-1.0) 09/07/16 07:35 Eos # 0.1 10^3/uL (0.0-0.7) 09/07/16 07:35 Baso # 0.0 10^3/uL (0.0-0.1) 09/07/16 07:35 Absolute Nucleated RBC 0.00 x10^3/uL 09/07/16 07:35 Nucleated RBCs 0.0 /100WBC 09/07/16 07:35 PT 9.7 secs (9.9-12.6) L 09/07/16 07:35 INR 0.9 (0.8-1.2) 09/07/16 07:35 VBG pH 7.405 (7.31-7.41) 09/08/16 06:32 VBG pCO2 42.0 mmHg (41-51) 09/08/16 06:32 VBG pO2 72.5 mmHg (25-47) H 09/08/16 06:32 VBG HCO3 25.7 mmol/L (23-28) 09/08/16 06:32 VBG Total CO2 27.0 mmol/L (24-29) 09/08/16 06:32 VBG O2 Saturation 94.8 % (60-80) H 09/08/16 06:32 VBG Base Excess 0.9 mmol/L (-2 - +2) 09/08/16 06:32 Sodium 136 mmol/L (135-145) 09/08/16 06:32 Potassium 3.4 mmol/L (3.5-5.0) L 09/08/16 06:32 Chloride 103 mmol/L (101-111) 09/08/16 06:32 Carbon Dioxide 26 mmol/L (21-32) 09/08/16 06:32 Anion Gap 7.0 (6-13) 09/08/16 06:32 BUN 9 mg/dL (6-20) 09/08/16 06:32 Creatinine 0.4 mg/dL (0.4-1.0) 09/08/16 06:32 Estimated GFR (MDRD) 183 (>89) 09/08/16 06:32 Glucose 178 mg/dL (70-100) H 09/08/16 06:32 Glycated Hemoglobin 13.1 % (4.6-6.2) H 09/07/16 07:35 Estim Average Glucose 329 (70-100) H 09/07/16 07:35 Calcium 7.7 mg/dL (8.5-10.3) L 09/08/16 06:32 Total Bilirubin 0.6 mg/dL (0.2-1.0) 09/07/16 07:35 AST 19 IU/L (10-42) 09/07/16 07:35 ALT 24 IU/L (10-60) 09/07/16 07:35 Alkaline Phosphatase 131 IU/L (42-121) H 09/07/16 07:35 Total Protein 6.2 g/dL (6.7-8.2) L 09/07/16 07:35 Albumin 3.1 g/dL (3.2-5.5) L 09/07/16 07:35 Globulin 3.1 g/dL (2.1-4.2) 09/07/16 07:35 Albumin/Globulin Ratio 1.0 (1.0-2.2) 09/07/16 07:35 Lipase 16 U/L (22-51) L 09/07/16 07:35 Carcinoembryonic Ag 4.8 ng/mL 09/08/16 07:35 Serum HCG, Qual NEGATIVE 09/07/16 07:35 Urine Opiates Screen POSITIVE (NEGATIVE) H 09/08/16 00:10 Ur Oxycodone Screen NEGATIVE (NEGATIVE) 09/08/16 00:10 Urine Methadone Screen NEGATIVE (NEGATIVE) 09/08/16 00:10 Ur Propoxyphene Screen NEGATIVE (NEGATIVE) 09/08/16 00:10 Ur Barbiturates Screen NEGATIVE (NEGATIVE) 09/08/16 00:10 Ur Tricyclics Screen NEGATIVE (NEGATIVE) 09/08/16 00:10 Ur Phencyclidine Scrn NEGATIVE (NEGATIVE) 09/08/16 00:10 Ur Amphetamine Screen POSITIVE (NEGATIVE) H 09/08/16 00:10 U Methamphetamines Scrn POSITIVE (NEGATIVE) H 09/08/16 00:10 U Benzodiazepines Scrn NEGATIVE (NEGATIVE) 09/08/16 00:10 Urine Cocaine Screen NEGATIVE (NEGATIVE) 09/08/16 00:10 U Cannabinoids Screen NEGATIVE (NEGATIVE) 09/08/16 00:10 Serum Ketones NEGATIVE (NEGATIVE) 09/07/16 07:35 - Procedures Procedures: Procedures INSERT INFUSION DEV IN R INT JUGULAR VEIN, PERC (04/21/16) INSERTION OF INFUSION DEV INTO SUP VENA CAVA, PERC APPROACH (03/27/16) INSERTION OF INFUSION DEVICE INTO R ATRIUM, PERC APPROACH (12/04/15) TRANSFUSE NONAUT RED BLOOD CELLS IN PERIPH VEIN, PERC (04/21/16) ULTRASONOGRAPHY OF RIGHT JUGULAR VEINS, GUIDANCE (04/21/16)
[2016-09-08] MEDS: ONDANSETRON 4 MG/2 ML VIAL IVP PRN (14:32)
[2016-09-08] MEDS ORDERED: LORazepam 2 MG/ML SYRINGE IVP SCH (15:00)
[2016-09-08] MEDS ORDERED: GADOBUTROL 7.5 MMOL/7.5 ML VIAL IVP ONE (17:09)
[2016-09-08] MEDS: PROCHLORPERAZINE 10 MG/2 ML VIAL IVP PRN (17:23)
--- NOTE | 2016-09-08 19:02 | MRI Preliminary Report ---
Exam: MRI Abdomen W/WO IMPRESSION: 1. Mild intra and extra-hepatic bile duct dilatation status post cholecystectomy. No evidence for cho ledocholithiasis. There appears to be periportal edema. 2. There are multiple prominent retroperitoneal and mesenteric root lymph nodes which appear edematou s and there appears to be adjacent mesenteric fat stranding. Acute inflammation could be present here , could represent mesenteric adenitis and panniculitis. Metastasis/lymphoma is in the differential an d follow-up is recommended. Portacaval lymphadenopathy. 3. Splenomegaly. Hepatomegaly. Diffuse decreased T2 signal in the liver. On the in and out of phase s equences, the liver is lower in intensity on the in phase images compared to the out of phase images. These findings can be seen with primary hemachromatosis. Correlate clinically. 4. Trace perihepatic and perisplenic ascites. 5. Motion artifact limited. Otherwise, as above. [facility] SITE ID: [id number]
--- NOTE | 2016-09-08 19:05 | MRI Report ---
EXAM: MR ABDOMEN WITH AND WITHOUT CONTRAST (MR PANCREAS AND MRCP) EXAM DATE: 09/08/2016 05:10 PM. CLINICAL HISTORY: Lymphadenopathy pancreas. COMPARISON: None. TECHNIQUE: Multiplanar breath-hold T1, T2, and DWI sequences obtained through the pancreas and abdome n on an MR scanner. Dedicated 2D and 3D MRCP sequences obtained through the biliary and pancreatic du cts. Images obtained before and after administration of 6 mL Gadavist intravenous contrast. Multiphas e postcontrast sequences obtained through the pancreas. Motion artifact which limits exam. Had to sto p numerous times due to patient's claustrophobia and anxiety. FINDINGS: Liver: There appears to be periportal edema. Diffuse decreased T2 signal in the liver. On the in and out of phase sequences, the liver is lower in intensity on the in phase images compared to the out of phase images. These findings can be seen with primary hemachromatosis. Correlate clinically. No evid ence for liver mass. Hepatomegaly. Status post cholecystectomy. Mild intrahepatic bile duct dilatation, unchanged. Mild common duct dila tation measuring 8 mm, unchanged. No evidence for choledocholithiasis. Pancreas: Within normal limits. No pancreatic mass. No pancreatic duct dilatation. Spleen: Splenomegaly with a length of 14.7 cm. Kidneys and Adrenals: The kidneys appear normal with no mass or hydronephrosis. There are no cysts in the kidneys. The adrenals appear normal. Bowel: The small bowel and colon appear normal with no inflammation or obstruction. There are multiple prominent retroperitoneal and mesenteric root lymph nodes which appear edematous a nd there appears to be adjacent mesenteric fat stranding. One of the largest lymph nodes of the left mesenteric root measures 9 mm. There is portacaval lymphadenopathy measuring 1.5 cm. Trace perihepatic and perisplenic ascites. IMPRESSION: 1. Mild intra and extra-hepatic bile duct dilatation status post cholecystectomy. No evidence for cho ledocholithiasis. There appears to be periportal edema. 2. There are multiple prominent retroperitoneal and mesenteric root lymph nodes which appear edematou s and there appears to be adjacent mesenteric fat stranding. Acute inflammation could be present here , could represent mesenteric adenitis and panniculitis. Metastasis/lymphoma is in the differential an d follow-up is recommended. Portacaval lymphadenopathy. 3. Splenomegaly. Hepatomegaly. Diffuse decreased T2 signal in the liver. On the in and out of phase s equences, the liver is lower in intensity on the in phase images compared to the out of phase images. These findings can be seen with primary hemachromatosis. Correlate clinically. 4. Trace perihepatic and perisplenic ascites. 5. Motion artifact limited. Otherwise, as above. [facility] Referring Provider Line: [phone] SITE ID: [id number]
--- NOTE | 2016-09-08 19:28 | HISTORY & PHYSICAL EXAMINATION ---
DATE OF ADMISSION: 09/07/2016 PRIMARY CARE PROVIDER: None. ADMITTING PROVIDER: Jillian Sandhu MD. CHIEF COMPLAINT: Abdominal pain. The patient is very well known to our service and has been in multiple, multiple times for nausea, vo miting, and abdominal pain secondary to opioid withdrawal, DKA, or gastroenteritis. She is a homeless person and her multiple episodes of DKA combined with hypothermia have left her with a moderate to s evere cognitive decline and deficit. She has poor judgment, impulsive behavior. At one point she left AMA from this institution. Badgered enough people in the waiting room that police were called and gordon troy was taken to detention, and then released and back out into the community again. She was admitted July 11 with DKA, July 2016 with abdominal pain and hyperglycemia, again July of 2016 with a second admiss ion for nausea and vomiting and abdominal pain. She had an acute abdominal series July 2016 which showed moderate to large colonic stool volume, a fe w mildly dilated loops of small bowel without abnormal fluid levels and they were nonspecific. A CT o f the abdomen was done March 2016 and showed changes of cholecystectomy and no etiology for her ep igastric abdominal pain. Abdomen and pelvis CT February 2015 showed no specific findings to explain fl ank pain and abdominal pain, nausea and vomiting. She did have cecal small loops of bowel with that C T without evidence of bowel dilation. With this most current episode she attributes abrupt onset of abdominal pain a few hours after eating potato salad. It has been accompanied by nausea and vomiting. Because of her past history, we treate d her as the usual recurrent nausea, vomiting, abdominal pain, and the patient has a history of opioi d use, methamphetamine use, and also her DKA. Dr. Coleman evaluated her for DKA at first, it was not f ound. Though she is hyperglycemic she is not acidotic. She is not having any fever, diarrhea, or bloo dy emesis. [place] no one else is sick around her. She continues to b e homeless. After evaluating her for possible gastroenteritis or food poisoning she was treated with IV fluids an d antiemetics. She has a care plan where she is not to receive opioids because of her previous histor y of abuse. Her abdominal exam was without acute peritoneal findings. She was to be discharged after this treatment, but her heart rate remained into the 120s. This patient has chronic sinus tachycardia for years. She was asleep, Dr. Coleman reevaluated her and she continued to have cramps in the lower abdomen. She got more normal saline, more Zofran, more Bentyl and a repeat CT. The repeat CT shows ma ssive amounts of large confluent lymph nodes surrounding the head and inferior body of the pancreas w ith a marked amount of edema bridging the lymph nodes. This adenopathy has progressed since the most recent exam of March 2016. It was not seen in the previous exam. Body and tail of the pancreas was small in caliber. The head appeared to be enlarged and edematous. A repeat CT was recommended with d edicated pancreatic protocol. The second CT shows a pancreatic arterial phase sequence that is nondia gnostic. There is no confident visualization of a primary pancreatic lesion. She still has extensive edema and adenopathy in the above mentioned location which raises the possibility of pancreatic neopl asm, lymphoma less likely, and adenocarcinoma of the small bowel also in the differential. This patient will need a biopsy. She is homeless. Dr. Grace discussed the case with Dr. Lozada, [facility] contracts paralegal, and Dr. Lozada is willing to do a biopsy. There is no interventional radiology a t this institution. As such the patient is admitted to treat the intractable pain, nausea, vomiting, to get a pancreas bi opsy with Dr. Lozada. PAST MEDICAL HISTORY: 1. Diabetes type 1 since 1999, uncontrolled. Noncompliant with shelter use of insulin and has perip heral vascular disease, chronic kidney disease and neuropathy. 2. Chronic pain syndrome from fibromyalgia. 3. Chronic sinus tachycardia. 4. Hypertension. 5. Psychiatric disease unknown diagnosis. 6. Short term memory loss. 7. G22, P1-0-21-1. 8. Cyst removal from left anglican age 6. 9. Tonsillectomy age 9. 10. Cholecystectomy age 16. 11. Valvular heart disease with moderate pulmonary hypertension, moderate tricuspid regurgitation, an d a right ventricle that is dilated on echo December 2015. 12. Chronic foot ischemia. ALLERGIES: 1. CODEINE. 2. HYDROCODONE. 3. MACROBID. She is supposed to be taking Lantus 70 units subcutaneous b.i.d. and she is vague about whether she h as insulin and is able to take it. No other medications in the outpatient setting. SOCIAL HISTORY: Polysubstance abuse in the form of narcotics, methamphetamines, Cannabis. histo ry of alcohol abuse. She was living in [place], [place], incarcerated there and lost custody of her chi ld. This child went to go live with her father and stepmother here in [place]. She reestablished a connection with her father in an effort to reestablish a relationship with the child and moved to [facility]. When she lived with her father and stepmother it was chaotic, tumultuous, multiple police c alls to the house. The father in late January 2016 or early February 2016 and her stepmother thr ew her out of the house. So the patient has been homeless since February 2016. She has had multiple ep isodes in the hospital and she is not taking any of her medications for most of the time. She has als o had severe hypothermia and unconsciousness at times. FAMILY HISTORY: Dad had coronary artery disease, diabetes, multiple myocardial infarctions, and final ly of a stroke. mother is unknown. She has no siblings. Her child is healthy. REVIEW OF SYSTEMS: Shows no self awareness with regards to weight loss, fevers, sweats. ENT: She denies new change in vision. She has no teeth. She has numbness of her face and lips, __. PULMONARY: Occasional cough, but no congestion or chest pain. That is chronic and unchanged. CARDIAC: She denies edema, shortness of breath. Again, says she spends most of her time sitting down or laying down in her sleeping bag, she is homeless. She denies edema, orthopnea, chest pain. ABDOMEN: Hurts again. No blood in her stool. No blood in her emesis. She denies diarrhea. : She denies hematuria, flank pain, urgency, frequency, dysuria. JOINTS: Everything hurts. She says she has fibromyalgia and that is why everything hurts. SKIN: Denies new moles or rashes. PSYCHIATRIC: Anxiety. Depression. History of bipolar disorder as a "diagnosis." DRY JANITOR: Denies syncope, seizures, and has fairly significant memory loss over the last 2 years. PHYSICAL EXAMINATION: On examination she is seen in the emergency room after an extensive evaluation all day long. She was initially seen in the emergency department at 7 in the morning by Dr. Virginia la I am seeing her at 8 o'clock at night. She is consistently tachycardic in the 120's, afebrile at 36 .9, blood pressure 138/89 to 152/92. She is 95% room air and breathes at 18 to 22 breaths a minute. S he is sleeping and easily awakens and when she is awake she would like her Dilaudid now. She persever ates, is repetitive, and needs constant gentle prompting. She is alert and oriented x3. HEAD AND NECK EXAM: Shows her to be edentulous, sitting here, but no facial asymmetry, slightly dry o ral mucosa that is pink. Neck is supple with shotty adenopathy. No goiter or bruits. LUNGS: Clear to auscultation and percussion without respiratory distress. HEART: She has a regular rate and rhythm that is tachycardic and she has a systolic ejection murmur. That is unchanged. ABDOMEN: Soft, no distention, feels pain when I palpate, but there is no rebound or guarding. No mass es palpable. EXTREMITIES: Without clubbing, cyanosis, or edema, insect bites around her ankles and dirt underneath her fingernails and toenails. NEUROLOGIC: She is alert and oriented x3, can follow 1-step commands, but needs a very, very focussed attempt at focus. Speech is wandering, at times phonetic and fast and pressured and other times slow er. Needs constant prompting and reminder about limits, in other words, she cannot call the kitchen o n her own and ask for food every hour. She would do that if we let her. Sodium was 132, potassium is 4, BUN 19, creatinine 0.4, random glucose 321, A1c 13.1, alkaline phosph atase 131. Negative serum HCG. White cell count 7.6, hemoglobin 12.2, hematocrit 37.4, platelets 259. INR 0.9. Venous blood gas this morning was 7.26, pCO2 52, pO2 166, base excess line is 4.3. Ketones negative. Drug screen shows positive opiates, amphetamines, metamphetamines. CT of the abdomen and pelvis is as above. ASSESSMENT AND PLAN: 1. Diffuse abdominal pain with nausea and vomiting in a patient who has had numerous admissions for a bdominal pain, nausea, and vomiting. Etiologies in the past have included opioid withdrawal, gastroen teritis, but no obstruction or surgical abdomen. Pain is controlled with Dilaudid as long as she rece nena it. 2. Abnormal CT indicating abnormal pancreas. Dr. Lozada has agreed to see the patient in consultation for biopsy. 3. Type 1 diabetes mellitus without control, on terminal makeup operator insulin, with complications. No DKA. She ca n have a 3 carbs with diet until midnight, be placed on Lantus and sliding scale insulin. 4. Polysubstance abuse history with continuation of abuse as above. 5. Homeless status which will impact ability to receive care if she truly does have pancreatic cancer with a terminal diagnosis. 6. DVT prophylaxis will be OZZIE monteiro. 7. FULL CODE STATUS. JOB #: [id number] EXT JOB #:[id number]
[2016-09-08] MEDS: INSULIN GLARGINE 300 UNIT/3 ML PEN SUBQ SCH (20:51)
[2016-09-09] MEDS ORDERED: SODIUM CHLORIDE 0.9% 1,000 ML IV SCH (00:58)
[2016-09-09] MEDS: INSULIN REGULAR HUMAN 100 UNIT/1 ML 10 ML MDV SUBQ SCH ×3 (01:13→15:57)
[2016-09-09] MEDS: SODIUM CHLORIDE FLUSH 0.9% 10 ML SYRINGE IVP SCH ×3 (06:28→20:30)
[2016-09-09] MEDS: DEXTROSE 5% 1,000 ML IV SCH ×2 (06:34→18:04)
[2016-09-09 07:24] LABS: CALCIUM 7.9 mg/dL (8.5-10.3); CREATININE 0.4 mg/dL (0.4-1.0); POTASSIUM 2.9 mmol/L (3.5-5.0)
[2016-09-09] MEDS: INSULIN ASPART 300 UNIT/3 ML PEN SUBQ SCH ×3 (08:26→17:52)
[2016-09-09] MEDS: SODIUM CHLORIDE FLUSH 0.9% 10 ML SYRINGE IVP PRN ×4 (08:39→22:45)
[2016-09-09] MEDS: HYDROmorphone 1 MG/ML SYRINGE IVP PRN ×7 (08:39→22:45)
[2016-09-09] MEDS: ACETAMINOPHEN 1,000 MG/100 ML 100 ML IV PRN ×3 (08:39→22:45)
[2016-09-09] MEDS: NICOTINE 7 MG PATCH TOP SCH (08:46)
[2016-09-09] MEDS: POTASSIUM CHLORIDE 20 MEQ TABLET PO SCH ×4 (09:00→21:38)
[2016-09-09 09:38] LABS: BASOPHILS % (AUTO) 0.5 %; HCT - HEMATOCRIT 34.8 % (37.0-47.0); HGB - HEMOGLOBIN 11.6 g/dL (12.0-16.0); LYMPHOCYTES # (AUTO) 0.5 10^3/uL (1.5-3.5); LYMPHOCYTES % (AUTO) 9.9 %; MEAN CORPUSCULAR HEMOGLOBIN 25.9 pg (27.0-31.0); MEAN CORPUSCULAR HGB CONC 33.3 g/dL (32.0-36.0); MEAN CORPUSCULAR VOLUME 77.8 fL (81.0-99.0); MEAN PLATELET VOLUME 7.4 fL (7.9-10.8); MONOCYTES # (AUTO) 0.2 10^3/uL (0.0-1.0); MONOCYTES % (AUTO) 5.2 %; NEUTROPHILS # (AUTO) 3.9 10^3/uL (1.5-6.6); NEUTROPHILS % (AUTO) 84.4 %; RED BLOOD COUNT 4.47 10^6/uL (4.20-5.40); RED CELL DISTRIBUTION WIDTH 15.8 % (12.0-15.0); UNCORRECTED WHITE BLOOD COUNT 4.6 x10^3/uL; WHITE BLOOD COUNT 4.6 x10^3/uL (4.8-10.8)
[2016-09-09] MEDS: POLYETHYLENE GLYCOL 3350 17 GM PACKET PO SCH (11:07)
[2016-09-09] MEDS: ONDANSETRON 4 MG/2 ML VIAL IVP PRN ×2 (11:19→20:30)
--- NOTE | 2016-09-09 12:44 | XRAY Report ---
CHEST, PA AND LATERAL: 09/09/2016 CLINICAL HISTORY: Fever. COMPARISON: 04/21/2016 FINDINGS: Bony thorax is normal. The heart and great vessels are normal. Mediastinum is not widene d. Pulmonary parenchyma is normal. No change is seen as compared to 04/21/2016. IMPRESSION: NORMAL EXAMINATION. JOB #: [id number] EXT JOB #:[id number]
[2016-09-09 15:28] LABS: BILIRUBIN,URINE NEGATIVE (NEGATIVE); PH,URINE 6.5 PH (5.0-7.5)
[2016-09-09 15:37] LABS: UR CULTURE IF IND NOT INDICATED; WBC,URINE 0-3 /HPF (0-5)
--- NOTE | 2016-09-09 17:30 | PROVIDER PROGRESS NOTE ---
Assessment/Plan - Problem List (1) Acute generalized abdominal pain Assessment/Plan: she has the adenopathy of the pancreas. Today she had a fever. She is getting W/U for the fever. So far neg. Dr. Styles is seeing her. (2) Diabetes type 1, uncontrolled Assessment/Plan: Sugars have been lower but now rising as s he is eating. Will continue monitoring and giving insulin. (3) Mass in the abdomen Assessment/Plan: Her pain and presentation does not match. Her pain is in her pelvis by description Therefore this is either an incidental or a fortuitous finding. Will continue W/U with ID possible source. - Current Meds Current Meds: Current Medications Generic Name Dose Route Start Last Admin Trade Name Freq PRN Reason Stop Dose Admin Hydromorphone HCl 1 mg 09/07/16 21:15 09/09/16 16:09 Dilaudid Inj IVP 1 mg Q2HR PRN Administration Pain 8 to 10 Acetaminophen 100 mls @ 400 mls/hr 09/08/16 12:59 09/09/16 16:09 Ofirmev IV 400 mls/hr Q6HR PRN Administration PAIN Dextrose 1,000 mls @ 100 mls/hr 09/08/16 09:20 09/09/16 06:34 D5w IV 100 mls/hr .Q10H SYLVIA Administration Insulin Aspart 5 unit 09/08/16 08:00 09/09/16 12:26 Novolog SUBQ 5 unit TIDWM SYLVIA Administration Protocol Insulin Glargine 70 unit 09/08/16 21:00 09/08/16 20:51 Lantus Solostar SUBQ 70 unit QPM SYLVIA Administration Nicotine 1 patch 09/08/16 09:00 09/09/16 08:46 Nicoderm TOP 1 patch DAILY SYLVIA Administration Ondansetron HCl 4 mg 09/07/16 21:15 09/09/16 11:19 Zofran Inj IVP 4 mg Q6HR PRN Administration Nausea / Vomiting Polyethylene Glycol 17 gm 09/08/16 09:00 09/09/16 11:07 Miralax PO Not Given DAILY SYLVIA Potassium Chloride 20 meq 09/09/16 09:00 09/09/16 12:26 K-Dur PO 20 meq QID SYLVIA Administration Prochlorperazine Edisylate 10 mg 09/07/16 21:15 09/08/16 17:23 Compazine Inj IVP 10 mg Q6HR PRN Administration Nausea / Vomiting Sodium Chloride 10 ml 09/07/16 21:15 09/09/16 11:06 Normal Saline Flush 0.9% IVP 10 ml PRN PRN Administration NEEDED PER PROVIDER ORDERS Sodium Chloride 10 ml 09/07/16 22:00 09/09/16 13:45 Normal Saline Flush 0.9% IVP 10 ml Q8HR SYLVIA Administration - Lab Result Fish Bone Diagrams: 09/09/16 08:30 09/09/16 06:44 - Additional Planning My Orders: My Active Orders 09/09/16 09:00 Potassium Chloride [K-Dur] 20 meq PO QID 09/09/16 11:19 Blood Culture [CULTURE, BLOOD #1] [] Urgent CYTOMEGALOVIRUS DNA QN RT PCR [REFLAB] Urgent HIV AB/AG 4TH GEN W/REFLEX [REFLAB] Routine 09/09/16 12:05 Blood Culture [CULTURE, BLOOD #2] [] Urgent 09/09/16 16:47 Blood Glucose Checks - Eating [RC] 0800,1200,1700,2100 09/09/16 17:00 Insulin Aspart [NovoLOG] 2 - 10 unit SUBQ 0800,1200,1700,2100 09/09/16 Lunch Carb-controlled Diet [DIET] 09/10/16 05:00 EBV VIRAL CAPSID AB VCA IGG [REFLAB] DAILYLAB EBV VIRAL CAPSID AB VCA IGM [REFLAB] DAILYLAB Subjective - Subjective Patient Reports: Abdominal Pain Nursing Reports: Pain Objective Vital Signs: Vital Signs - 24 hr 09/08/16 09/09/16 09/09/16 17:30 00:54 02:10 Temperature 37.2 C 37.6 C H Heart Rate [ 113 H 111 H 123 H Brachial] Respiratory 16 22 20 Rate Blood Pressure 112/69 [Left Brachial artery] Blood Pressure 150/93 H 87/46 L [Right Brachial artery] O2 Saturation 96 95 96 09/09/16 08:38 Temperature 38.6 C H Heart Rate [ 138 H Brachial] Respiratory 18 Rate Blood Pressure [Left Brachial artery] Blood Pressure 133/73 H [Right Brachial artery] O2 Saturation 94 Oxygen O2 Source Room air I&O (Last 24 Hrs): Intake and Output Totals x24h 09/07/16 09/08/1609/09/17 23:59 23:59 23:59 Intake Total 1000 2703 2702 Output Total 1000 Balance 1000 1703 2702 General: Alert, Oriented x3, Cooperative HEENT: PERRLA, EOMI Neck: No JVD, No thyromegaly Neuro: Alert, Oriented Times 3 Cardiovascular: Regular rate, No murmurs Respiratory: No respiratory distress, Breath sounds nml Abdomen: Normal bowel sounds, Soft, Other (diffuse lower abd tenderness.) Extremities: No clubbing, No cyanosis - Results Results: Laboratory Results WBC 4.6 x10^3/uL (4.8-10.8) L 09/09/16 08:30 RBC 4.47 10^6/uL (4.20-5.40) 09/09/16 08:30 Hgb 11.6 g/dL (12.0-16.0) L 09/09/16 08:30 Hct 34.8 % (37.0-47.0) L 09/09/16 08:30 MCV 77.8 fL (81.0-99.0) L 09/09/16 08:30 MCH 25.9 pg (27.0-31.0) L 09/09/16 08:30 MCHC 33.3 g/dL (32.0-36.0) 09/09/16 08:30 RDW 15.8 % (12.0-15.0) H 09/09/16 08:30 Plt Count 208 10^3/uL (130-450) 09/09/16 08:30 MPV 7.4 fL (7.9-10.8) L 09/09/16 08:30 Neut # 3.9 10^3/uL (1.5-6.6) 09/09/16 08:30 Lymph # 0.5 10^3/uL (1.5-3.5) L 09/09/16 08:30 [place] # 0.2 10^3/uL (0.0-1.0) 09/09/16 08:30 Eos # 0.0 10^3/uL (0.0-0.7) 09/09/16 08:30 Baso # 0.0 10^3/uL (0.0-0.1) 09/09/16 08:30 Absolute Nucleated RBC 0.00 x10^3/uL 09/09/16 08:30 Nucleated RBCs 0.0 /100WBC 09/09/16 08:30 PT 9.7 secs (9.9-12.6) L 09/07/16 07:35 INR 0.9 (0.8-1.2) 09/07/16 07:35 VBG pH 7.405 (7.31-7.41) 09/08/16 06:32 VBG pCO2 42.0 mmHg (41-51) 09/08/16 06:32 VBG pO2 72.5 mmHg (25-47) H 09/08/16 06:32 VBG HCO3 25.7 mmol/L (23-28) 09/08/16 06:32 VBG Total CO2 27.0 mmol/L (24-29) 09/08/16 06:32 VBG O2 Saturation 94.8 % (60-80) H 09/08/16 06:32 VBG Base Excess 0.9 mmol/L (-2 - +2) 09/08/16 06:32 Sodium 132 mmol/L (135-145) L 09/09/16 06:44 Potassium 2.9 mmol/L (3.5-5.0) L 09/09/16 06:44 Chloride 98 mmol/L (101-111) L 09/09/16 06:44 Carbon Dioxide 25 mmol/L (21-32) 09/09/16 06:44 Anion Gap 9.0 (6-13) 09/09/16 06:44 BUN 9 mg/dL (6-20) 09/09/16 06:44 Creatinine 0.4 mg/dL (0.4-1.0) 09/09/16 06:44 Estimated GFR (MDRD) 183 (>89) 09/09/16 06:44 Glucose 79 mg/dL (70-100) 09/09/16 06:44 Glycated Hemoglobin 13.1 % (4.6-6.2) H 09/07/16 07:35 Estim Average Glucose 329 (70-100) H 09/07/16 07:35 Calcium 7.9 mg/dL (8.5-10.3) L 09/09/16 06:44 Total Bilirubin 0.6 mg/dL (0.2-1.0) 09/07/16 07:35 AST 19 IU/L (10-42) 09/07/16 07:35 ALT 24 IU/L (10-60) 09/07/16 07:35 Alkaline Phosphatase 131 IU/L (42-121) H 09/07/16 07:35 Total Protein 6.2 g/dL (6.7-8.2) L 09/07/16 07:35 Albumin 3.1 g/dL (3.2-5.5) L 09/07/16 07:35 Globulin 3.1 g/dL (2.1-4.2) 09/07/16 07:35 Albumin/Globulin Ratio 1.0 (1.0-2.2) 09/07/16 07:35 Lipase 16 U/L (22-51) L 09/07/16 07:35 Carcinoembryonic Ag 4.8 ng/mL 09/08/16 07:35 CA 19-9 Antigen 54 U/mL (<34) H 09/08/16 07:35 Serum HCG, Qual NEGATIVE 09/07/16 07:35 Urine Color YELLOW 09/09/16 Unknown Urine Clarity CLEAR (CLEAR) 09/09/16 Unknown Urine pH 6.5 PH (5.0-7.5) 09/09/16 Unknown Ur Specific [place] 1.010 (1.002-1.030) 09/09/16 Unknown Urine Protein NEGATIVE mg/dL (NEGATIVE) 09/09/16 Unknown Urine Glucose (UA) NEGATIVE mg/dL (NEGATIVE) 09/09/16 Unknown Urine Ketones NEGATIVE mg/dL (NEGATIVE) 09/09/16 Unknown Urine Occult Blood NEGATIVE (NEGATIVE) 09/09/16 Unknown Urine Nitrite NEGATIVE (NEGATIVE) 09/09/16 Unknown Urine Bilirubin NEGATIVE (NEGATIVE) 09/09/16 Unknown Urine Urobilinogen 4 E.U./dL (NORMAL) H 09/09/16 Unknown Ur Leukocyte Esterase NEGATIVE (NEGATIVE) 09/09/16 Unknown Urine RBC None Seen /HPF (0-5) 09/09/16 Unknown Urine WBC 0-3 /HPF (0-5) 09/09/16 Unknown Ur Squamous Epith Cells MANY Squamous (<= Few) H 09/09/16 Unknown Urine Bacteria Moderate /HPF (None Seen) H 09/09/16 Unknown Urine Culture Comments NOT INDICATED 09/09/16 Unknown Urine Opiates Screen POSITIVE (NEGATIVE) H 09/08/16 00:10 Ur Oxycodone Screen NEGATIVE (NEGATIVE) 09/08/16 00:10 Urine Methadone Screen NEGATIVE (NEGATIVE) 09/08/16 00:10 Ur Propoxyphene Screen NEGATIVE (NEGATIVE) 09/08/16 00:10 Ur Barbiturates Screen NEGATIVE (NEGATIVE) 09/08/16 00:10 Ur Tricyclics Screen NEGATIVE (NEGATIVE) 09/08/16 00:10 Ur Phencyclidine Scrn NEGATIVE (NEGATIVE) 09/08/16 00:10 Ur Amphetamine Screen POSITIVE (NEGATIVE) H 09/08/16 00:10 U Methamphetamines Scrn POSITIVE (NEGATIVE) H 09/08/16 00:10 U Benzodiazepines Scrn NEGATIVE (NEGATIVE) 09/08/16 00:10 Urine Cocaine Screen NEGATIVE (NEGATIVE) 09/08/16 00:10 U Cannabinoids Screen NEGATIVE (NEGATIVE) 09/08/16 00:10 Serum Ketones NEGATIVE (NEGATIVE) 09/07/16 07:35 - Procedures Procedures: Procedures INSERT INFUSION DEV IN R INT JUGULAR VEIN, PERC (04/21/16) INSERTION OF INFUSION DEV INTO SUP VENA CAVA, PERC APPROACH (03/27/16) INSERTION OF INFUSION DEVICE INTO R ATRIUM, PERC APPROACH (12/04/15) TRANSFUSE NONAUT RED BLOOD CELLS IN PERIPH VEIN, PERC (04/21/16) ULTRASONOGRAPHY OF RIGHT JUGULAR VEINS, GUIDANCE (04/21/16)
[2016-09-09] MEDS: INSU100I18 SUBQ SCH ×2 (17:53→21:33)
[2016-09-09] MEDS: INSULIN GLARGINE 300 UNIT/3 ML PEN SUBQ SCH (21:37)
[2016-09-10] MEDS: HYDROmorphone 1 MG/ML SYRINGE IVP PRN ×10 (00:53→23:33)
[2016-09-10] MEDS: SODIUM CHLORIDE FLUSH 0.9% 10 ML SYRINGE IVP PRN ×5 (00:53→14:45)
[2016-09-10] MEDS ORDERED: VANCOMYCIN PER PHARMACY 1 GM in SODIUM CHLORIDE 0.9% 250 ML IV SCH (02:00)
[2016-09-10] MEDS ORDERED: VANCOMYCIN INJ 1 GM in SODIUM CHLORIDE 0.9% 250 ML IV SCH (03:00)
[2016-09-10] MEDS: SODIUM CHLORIDE FLUSH 0.9% 10 ML SYRINGE IVP SCH ×3 (05:07→21:15)
[2016-09-10 06:29] LABS: CALCIUM 7.9 mg/dL (8.5-10.3); CREATININE 0.6 mg/dL (0.4-1.0); POTASSIUM 3.5 mmol/L (3.5-5.0)
[2016-09-10] MEDS: ACETAMINOPHEN 1,000 MG/100 ML 100 ML IV PRN ×3 (08:40→22:44)
[2016-09-10] MEDS: INSULIN ASPART 300 UNIT/3 ML PEN SUBQ SCH ×3 (08:54→17:21)
[2016-09-10] MEDS: ONDANSETRON 4 MG/2 ML VIAL IVP PRN ×3 (08:57→21:23)
[2016-09-10 09:23] LABS: BASOPHILS % (AUTO) 0.4 %; EOSINOPHILS % (AUTO) 0.1 %; HCT - HEMATOCRIT 35.1 % (37.0-47.0); HGB - HEMOGLOBIN 11.6 g/dL (12.0-16.0); LYMPHOCYTES # (AUTO) 0.5 10^3/uL (1.5-3.5); LYMPHOCYTES % (AUTO) 8.6 %; MEAN CORPUSCULAR HEMOGLOBIN 26.1 pg (27.0-31.0); MEAN CORPUSCULAR HGB CONC 33.1 g/dL (32.0-36.0); MEAN CORPUSCULAR VOLUME 78.9 fL (81.0-99.0); MEAN PLATELET VOLUME 9.2 fL (7.9-10.8); MONOCYTES # (AUTO) 0.2 10^3/uL (0.0-1.0); NEUTROPHILS # (AUTO) 5.1 10^3/uL (1.5-6.6); NEUTROPHILS % (AUTO) 87.9 %; RED BLOOD COUNT 4.44 10^6/uL (4.20-5.40); RED CELL DISTRIBUTION WIDTH 15.7 % (12.0-15.0); UNCORRECTED WHITE BLOOD COUNT 5.9 x10^3/uL; WHITE BLOOD COUNT 5.9 x10^3/uL (4.8-10.8)
[2016-09-10] MEDS: INSU100I18 SUBQ SCH ×4 (09:58→21:14)
[2016-09-10] MEDS: NICOTINE 7 MG PATCH TOP SCH (11:21)
[2016-09-10] MEDS: POLYETHYLENE GLYCOL 3350 17 GM PACKET PO SCH (11:23)
[2016-09-10] MEDS: POTASSIUM CHLORIDE 20 MEQ TABLET PO SCH ×4 (11:25→21:15)
--- NOTE | 2016-09-10 13:20 | CONSULTATION NOTE ---
DATE OF CONSULTATION: 09/08/2016 00:00:00 REQUESTING PROVIDER: Jillian Sandhu MD REASON FOR REFERRAL: Abdominal pain. HISTORY OF PRESENT ILLNESS: The patient is a 35-year-old female who has had longstanding chronic abdo katrina pain. She is an IV drug abuser, along with having diabetes. She has been admitted to hospital s everal times in the past for abdominal pain, DKA, and gastroenteritis. No specific finding was seen a s the cause of her pain. She now presents with abdominal pain. The patient is somnolent and I can wak e her and have her sit up, but she is not able to give any history and she lays back down and goes ba ck to sleep. She presents to the hospital with a 12-hour history of abdominal pain, nausea and vomiti ng. She has not had any diarrhea. She comes to the emergency room, where she had a CT scan of her abdomen and pelvis. This showed diffu se edema of the mesentery of the small bowel, along with peripancreatic lymphadenopathy. A contrast C T of the pancreas was obtained, which did not show any cancer. She then had an MRI which showed enlar ged spleen and liver, along with the lymphadenopathy that is unexplained. Infectious etiology was in the differential, as well as lymphoma or other cancer such as small bowel less likely or pancreas. PAST SURGICAL HISTORY: Cholecystectomy. PAST MEDICAL HISTORY 1. Diabetes, being admitted several times for DKA. 2. Polysubstance abuse. 3. Chronic abdominal pain. 4. Hypertension. 5. Sinus tachycardia. 6. Fibromyalgia. 7. Psychiatric disease, unknown. 8. Valvular heart disease with pulmonary hypertension. ALLERGIES 1. CODEINE. 2. HYDROCODONE. 3. MACROBID. MEDICATIONS: Insulin. SOCIAL HISTORY: Patient is homeless. HABITS: Patient is polysubstance abuse. FAMILY HISTORY: Coronary artery disease, diabetes. REVIEW OF SYSTEMS: Patient is unable to give a review of systems as she goes right back to sleep when trying to talk to her. PHYSICAL EXAMINATION VITAL SIGNS: Temperature is 37, pulse 113, blood pressure 150/93. GENERAL: The patient is somnolent, but was able to be awakened and sit up, but promptly lied back radha n and went back to sleep. HEART: Regular. LUNGS: Clear. ABDOMEN: Nondistended. No masses. No significant tenderness, but again the patient has altered mental status. EXTREMITIES: No edema. No cyanosis. NEUROLOGICAL: Patient cannot be assessed. PSYCHOLOGICAL: Patient is somnolent at the current time. DIAGNOSTIC DATA: CT scan of the abdomen and pelvis: See history of present illness. CEA is 4.8. Creat inine 0.4. Liver function tests: Alkaline phosphatase 131. The rest of the liver function tests are n ormal. Lipase is 16. White blood cell count 7.6, hemoglobin 12. INR is 1.9. Her urine toxicology was positive for opioids, amphetamines. ASSESSMENT 1. Abdominal pain with new onset of findings of lymphadenopathy in the root of the mesentery and bhumika pancreas of unknown etiology. Differential diagnosis infectious versus tumor or cancer. I would recom mend infectious disease workup at first and possibly consultation with ID to ensure all the labs have been adequately ordered. Also I would recommend discussion with GI to see if there are any other lab s to be ordered. Consideration for small bowel enterography by GI in order to gain biopsy. If all thi s does not help with obtaining a diagnosis, then consideration for a diagnostic laparoscopy and lymph node biopsy would be the last thing to pursue. As seen in her labs, her CEA is 4.8 and it is unknown whether this is elevated due to tumor versus smoking or other benign diseases. 2. Polysubstance abuse. 3. Hypertension. 4. Tachycardia, which patient continues to have with intermittent tachycardia. PLAN 1. Recommend consultation with ID. 2. Consultation with Gastroenterology for proper labs. 3. Possible enterography. 4. Diagnostic laparoscopy with lymph node biopsy as the last test to be completed if needed. JOB #: [id number] [id number] JOB #:[id number]
[2016-09-10] MEDS ORDERED: LORazepam 2 MG/ML SYRINGE IVP ONE (17:00)
--- NOTE | 2016-09-10 17:06 | PROVIDER PROGRESS NOTE ---
Assessment/Plan - Problem List (1) Acute generalized abdominal pain Assessment/Plan: Pain is improved modestly. She has had distracting fevers the last 48 hours. She again describes the pain as in pelvis area. All strudies have been negative except the pancreatic adenopathy and edema. (2) Diabetes type 1, uncontrolled Assessment/Plan: Trina sugar has been better controlled as usual when she is in the hospital. Will continue the present insulin regime. (3) Mass in the abdomen Assessment/Plan: The W/U has been delayed due to the fevers and the bacteremia. She is on Vanco mycin. She is now 24+ houras withe intermittant fevers despite antibiotics. Will wet Echocardiogram today. Surgery last maki asserted she needs a bx using endoscopic US EGD. Needs referral. - Current Meds Current Meds: Current Medications Generic Name Dose Route Start Last Admin Trade Name Freq PRN Reason Stop Dose Admin Hydromorphone HCl 1 mg 09/07/16 21:15 09/10/16 14:44 Dilaudid Inj IVP 1 mg Q2HR PRN Administration Pain 8 to 10 Acetaminophen 100 mls @ 400 mls/hr 09/08/16 12:59 09/10/16 15:00 Ofirmev IV 400 mls/hr Q6HR PRN Administration PAIN Insulin Aspart 5 unit 09/08/16 08:00 09/10/16 12:38 Novolog SUBQ Not Given [facility] Protocol Insulin Aspart 2 - 10 unit 09/09/16 17:00 09/10/16 12:38 Novolog SUBQ Not Given 0800,1200,1700,2100 SYLVIA Protocol Insulin Glargine 70 unit 09/08/16 21:00 09/09/16 21:37 Lantus Solostar SUBQ 70 unit QPM SYLVIA Administration Nicotine 1 patch 09/08/16 09:00 09/10/16 11:21 Nicoderm TOP 1 patch DAILY SYLVIA Administration Ondansetron HCl 4 mg 09/07/16 21:15 09/10/16 14:45 Zofran Inj IVP 4 mg Q6HR PRN Administration Nausea / Vomiting Polyethylene Glycol 17 gm 09/08/16 09:00 09/10/16 11:23 Miralax PO 17 gm DAILY SYLVIA Administration Potassium Chloride 20 meq 09/09/16 09:00 09/10/16 15:09 K-Dur PO Not Given QID SYLVIA Prochlorperazine Edisylate 10 mg 09/07/16 21:15 09/08/16 17:23 Compazine Inj IVP 10 mg Q6HR PRN Administration Nausea / Vomiting Sodium Chloride 10 ml 09/07/16 21:15 09/10/16 14:45 Normal Saline Flush 0.9% IVP 10 ml PRN PRN Administration NEEDED PER PROVIDER ORDERS Sodium Chloride 10 ml 09/07/16 22:00 09/10/16 14:45 Normal Saline Flush 0.9% IVP 10 ml Q8HR SYLVIA Administration - Lab Result Fish Bone Diagrams: 09/11/16 05:00 09/10/16 05:55 - Additional Planning My Orders: My Active Orders 09/09/16 16:47 Blood Glucose Checks - Eating [RC] 0800,1200,1700,2100 09/09/16 17:00 Insulin Aspart [NovoLOG] 2 - 10 unit SUBQ 0800,1200,1700,2100 09/10/16 05:55 EBV VIRAL CAPSID AB VCA IGG [REFLAB] DAILYLAB EBV VIRAL CAPSID AB VCA IGM [REFLAB] DAILYLAB 09/10/16 17:00 LORazepam INJ [Ativan Inj] 1 mg IVP ONCE ONE 09/11/16 05:00 CBC - COMP BLD CT W/AUTO DIFF [HEME] DAILYLAB COMPREHENSIVE METABOLIC PANEL [CHEM] DAILYLAB 09/12/16 05:00 CBC - COMP BLD CT W/AUTO DIFF [HEME] DAILYLAB COMPREHENSIVE METABOLIC PANEL [CHEM] DAILYLAB 09/12/16 16:00 VANCOMYCIN TROUGH [CHEM] Timed 09/13/16 05:00 CBC - COMP BLD CT W/AUTO DIFF [HEME] DAILYLAB COMPREHENSIVE METABOLIC PANEL [CHEM] DAILYLAB Subjective - Subjective Patient Reports: Abdominal Pain, Fatigue, Fever Nursing Reports: Pain Objective Vital Signs: Vital Signs - 24 hr 09/10/16 09/10/16 01:25 08:24 Temperature 39.5 C H Heart Rate [ 127 H 151 H Brachial] Respiratory 20 16 Rate Blood Pressure 103/66 125/73 [Right Brachial artery] O2 Saturation 96 93 Oxygen O2 Source Room air I&O (Last 24 Hrs): Intake and Output Totals x24h 09/08/16 09/09/16 09/10/16 23:59 23:59 23:59 Intake Total 4833 3922 2252 Output Total 1000 720 Balance 1703 3922 1532 General: Alert, Oriented x3, Cooperative HEENT: PERRLA, EOMI Neck: No JVD, No thyromegaly Neuro: Alert, Oriented Times 3 Cardiovascular: Regular rate, No murmurs, Other (often tachycardic with minimal exertion and with fever.) Respiratory: Chest non-tender, No respiratory distress, Breath sounds nml Abdomen: Normal bowel sounds, Soft Extremities: No clubbing, No cyanosis, No edema Skin: No rashes, No breakdown - Results Results: Laboratory Results WBC 5.9 x10^3/uL (4.8-10.8) 09/10/16 05:00 RBC 4.44 10^6/uL (4.20-5.40) 09/10/16 05:00 Hgb 11.6 g/dL (12.0-16.0) L 09/10/16 05:00 Hct 35.1 % (37.0-47.0) L 09/10/16 05:00 MCV 78.9 fL (81.0-99.0) L 09/10/16 05:00 MCH 26.1 pg (27.0-31.0) L 09/10/16 05:00 MCHC 33.1 g/dL (32.0-36.0) 09/10/16 05:00 RDW 15.7 % (12.0-15.0) H 09/10/16 05:00 Plt Count 161 10^3/uL (130-450) 09/10/16 05:00 MPV 9.2 fL (7.9-10.8) 09/10/16 05:00 Neut # 5.1 10^3/uL (1.5-6.6) 09/10/16 05:00 Lymph # 0.5 10^3/uL (1.5-3.5) L 09/10/16 05:00 [place] # 0.2 10^3/uL (0.0-1.0) 09/10/16 05:00 Eos # 0.0 10^3/uL (0.0-0.7) 09/10/16 05:00 Baso # 0.0 10^3/uL (0.0-0.1) 09/10/16 05:00 Absolute Nucleated RBC 0.00 x10^3/uL 09/10/16 05:00 Nucleated RBCs 0.0 /100WBC 09/10/16 05:00 PT 9.7 secs (9.9-12.6) L 09/07/16 07:35 INR 0.9 (0.8-1.2) 09/07/16 07:35 VBG pH 7.405 (7.31-7.41) 09/08/16 06:32 VBG pCO2 42.0 mmHg (41-51) 09/08/16 06:32 VBG pO2 72.5 mmHg (25-47) H 09/08/16 06:32 VBG HCO3 25.7 mmol/L (23-28) 09/08/16 06:32 VBG Total CO2 27.0 mmol/L (24-29) 09/08/16 06:32 VBG O2 Saturation 94.8 % (60-80) H 09/08/16 06:32 VBG Base Excess 0.9 mmol/L (-2 - +2) 09/08/16 06:32 Sodium 128 mmol/L (135-145) L 09/10/16 05:55 Potassium 3.5 mmol/L (3.5-5.0) 09/10/16 05:55 Chloride 96 mmol/L (101-111) L 09/10/16 05:55 Carbon Dioxide 25 mmol/L (21-32) 09/10/16 05:55 Anion Gap 7.0 (6-13) 09/10/16 05:55 BUN 12 mg/dL (6-20) 09/10/16 05:55 Creatinine 0.6 mg/dL (0.4-1.0) 09/10/16 05:55 Estimated GFR (MDRD) 114 (>89) 09/10/16 05:55 Glucose 178 mg/dL (70-100) H 09/10/16 05:55 POC Whole Bld Glucose 180 mg/dL (70 - 100) H 09/10/16 16:04 Glycated Hemoglobin 13.1 % (4.6-6.2) H 09/07/16 07:35 Estim Average Glucose 329 (70-100) H 09/07/16 07:35 Calcium 7.9 mg/dL (8.5-10.3) L 09/10/16 05:55 Total Bilirubin 0.6 mg/dL (0.2-1.0) 09/07/16 07:35 AST 19 IU/L (10-42) 09/07/16 07:35 ALT 24 IU/L (10-60) 09/07/16 07:35 Alkaline Phosphatase 131 IU/L (42-121) H 09/07/16 07:35 Total Protein 6.2 g/dL (6.7-8.2) L 09/07/16 07:35 Albumin 3.1 g/dL (3.2-5.5) L 09/07/16 07:35 Globulin 3.1 g/dL (2.1-4.2) 09/07/16 07:35 Albumin/Globulin Ratio 1.0 (1.0-2.2) 09/07/16 07:35 Lipase 16 U/L (22-51) L 09/07/16 07:35 Carcinoembryonic Ag 4.8 ng/mL 09/08/16 07:35 CA 19-9 Antigen 54 U/mL (<34) H 09/08/16 07:35 Serum HCG, Qual NEGATIVE 09/07/16 07:35 Urine Color YELLOW 09/09/16 Unknown Urine Clarity CLEAR (CLEAR) 09/09/16 Unknown Urine pH 6.5 PH (5.0-7.5) 09/09/16 Unknown Ur Specific [place] 1.010 (1.002-1.030) 09/09/16 Unknown Urine Protein NEGATIVE mg/dL (NEGATIVE) 09/09/16 Unknown Urine Glucose (UA) NEGATIVE mg/dL (NEGATIVE) 09/09/16 Unknown Urine Ketones NEGATIVE mg/dL (NEGATIVE) 09/09/16 Unknown Urine Occult Blood NEGATIVE (NEGATIVE) 09/09/16 Unknown Urine Nitrite NEGATIVE (NEGATIVE) 09/09/16 Unknown Urine Bilirubin NEGATIVE (NEGATIVE) 09/09/16 Unknown Urine Urobilinogen 4 E.U./dL (NORMAL) H 09/09/16 Unknown Ur Leukocyte Esterase NEGATIVE (NEGATIVE) 09/09/16 Unknown Urine RBC None Seen /HPF (0-5) 09/09/16 Unknown Urine WBC 0-3 /HPF (0-5) 09/09/16 Unknown Ur Squamous Epith Cells MANY Squamous (<= Few) H 09/09/16 Unknown Urine Bacteria Moderate /HPF (None Seen) H 09/09/16 Unknown Urine Culture Comments NOT INDICATED 09/09/16 Unknown Urine Opiates Screen POSITIVE (NEGATIVE) H 09/08/16 00:10 Ur Oxycodone Screen NEGATIVE (NEGATIVE) 09/08/16 00:10 Urine Methadone Screen NEGATIVE (NEGATIVE) 09/08/16 00:10 Ur Propoxyphene Screen NEGATIVE (NEGATIVE) 09/08/16 00:10 Ur Barbiturates Screen NEGATIVE (NEGATIVE) 09/08/16 00:10 Ur Tricyclics Screen NEGATIVE (NEGATIVE) 09/08/16 00:10 Ur Phencyclidine Scrn NEGATIVE (NEGATIVE) 09/08/16 00:10 Ur Amphetamine Screen POSITIVE (NEGATIVE) H 09/08/16 00:10 U Methamphetamines Scrn POSITIVE (NEGATIVE) H 09/08/16 00:10 U Benzodiazepines Scrn NEGATIVE (NEGATIVE) 09/08/16 00:10 Urine Cocaine Screen NEGATIVE (NEGATIVE) 09/08/16 00:10 U Cannabinoids Screen NEGATIVE (NEGATIVE) 09/08/16 00:10 Serum Ketones NEGATIVE (NEGATIVE) 09/07/16 07:35 HIV 1&2 Ag/Ab, 4th Gen NON-REACTIVE (NON-REACTIVE) 09/09/16 11:19 - Procedures Procedures: Procedures INSERT INFUSION DEV IN R INT JUGULAR VEIN, PERC (04/21/16) INSERTION OF INFUSION DEV INTO SUP VENA CAVA, PERC APPROACH (03/27/16) INSERTION OF INFUSION DEVICE INTO R ATRIUM, PERC APPROACH (12/04/15) TRANSFUSE NONAUT RED BLOOD CELLS IN PERIPH VEIN, PERC (04/21/16) ULTRASONOGRAPHY OF RIGHT JUGULAR VEINS, GUIDANCE (04/21/16)
[2016-09-10] MEDS: VANCOMYCIN INJ 1 GM in SODIUM CHLORIDE 0.9% 250 ML IV SCH (17:08)
[2016-09-10] MEDS: INSULIN GLARGINE 300 UNIT/3 ML PEN SUBQ SCH (21:10)
[2016-09-10] MEDS: ZOLPIDEM 5 MG TABLET PO PRN (23:33)
[2016-09-11] MEDS: PROCHLORPERAZINE 10 MG/2 ML VIAL IVP PRN ×2 (01:28→17:11)
[2016-09-11] MEDS: HYDROmorphone 1 MG/ML SYRINGE IVP PRN ×8 (01:29→22:09)
--- NOTE | 2016-09-11 02:32 | PROVIDER PROGRESS NOTE ---
Subjective - General Admit Date: 09/07/16 Objective - Patient Data Reviewed Vital Signs: Yes Vital Signs: Vital Signs x48h Temp Pulse Resp BP Pulse Ox 09/11/16 01:13 38.0 C H 122 H 20 101/64 94 Intake & Output: Intake and Output Totals x24h 09/09/16 09/10/16 09/11/16 23:59 23:59 23:59 Intake Total 3922 2372 Output Total 3070 Balance 3922 -698 - Lab Results Lab Results: 09/10/16 05:00 09/10/16 05:55 Other Lab Results: Lab Results x24hrs 09/10/16 09/10/16 09/10/16 Range/Units 16:04 11:09 05:55 WBC (4.8-10.8) x10^3/uL RBC (4.20-5.40) 10^6/uL Hgb (12.0-16.0) g/dL Hct (37.0-47.0) % MCV (81.0-99.0) fL MCH (27.0-31.0) pg MCHC (32.0-36.0) g/dL RDW (12.0-15.0) % Plt Count (130-450) 10^3/uL MPV (7.9-10.8) fL Neut # (1.5-6.6) 10^3/uL Lymph # (1.5-3.5) 10^3/uL [place] # (0.0-1.0) 10^3/uL Eos # (0.0-0.7) 10^3/uL Baso # (0.0-0.1) 10^3/uL Absolute Nucleated RBC x10^3/uL Nucleated RBCs /100WBC Sodium 128 L (135-145) mmol/L Potassium 3.5 (3.5-5.0) mmol/L Chloride 96 L (101-111) mmol/L Carbon Dioxide 25 (21-32) mmol/L Anion Gap 7.0 (6-13) BUN 12 (6-20) mg/dL Creatinine 0.6 (0.4-1.0) mg/dL Estimated GFR (MDRD) 114 (>89) Glucose 178 H (70-100) mg/dL POC Whole Bld Glucose 180 H 106 H (70 - 100) mg/dL Calcium 7.9 L (8.5-10.3) mg/dL HIV 1&2 Ag/Ab, 4th Gen (NON-REACTIVE) 09/10/16 09/10/16 09/09/16 Range/Units 05:00 00:35 16:35 WBC 5.9 (4.8-10.8) x10^3/uL RBC 4.44 (4.20-5.40) 10^6/uL Hgb 11.6 L (12.0-16.0) g/dL Hct 35.1 L (37.0-47.0) % MCV 78.9 L (81.0-99.0) fL MCH 26.1 L (27.0-31.0) pg MCHC 33.1 (32.0-36.0) g/dL RDW 15.7 H (12.0-15.0) % Plt Count 161 (130-450) 10^3/uL MPV 9.2 (7.9-10.8) fL Neut # 5.1 (1.5-6.6) 10^3/uL Lymph # 0.5 L (1.5-3.5) 10^3/uL [place] # 0.2 (0.0-1.0) 10^3/uL Eos # 0.0 (0.0-0.7) 10^3/uL Baso # 0.0 (0.0-0.1) 10^3/uL Absolute Nucleated RBC 0.00 x10^3/uL Nucleated RBCs 0.0 /100WBC Sodium (135-145) mmol/L Potassium (3.5-5.0) mmol/L Chloride (101-111) mmol/L Carbon Dioxide (21-32) mmol/L Anion Gap (6-13) BUN (6-20) mg/dL Creatinine (0.4-1.0) mg/dL Estimated GFR (MDRD) (>89) Glucose (70-100) mg/dL POC Whole Bld Glucose 231 H 212 H (70 - 100) mg/dL Calcium (8.5-10.3) mg/dL HIV 1&2 Ag/Ab, 4th Gen (NON-REACTIVE) 09/09/16 09/09/16 09/09/16 Range/Units 11:41 11:19 06:27 WBC (4.8-10.8) x10^3/uL RBC (4.20-5.40) 10^6/uL Hgb (12.0-16.0) g/dL Hct (37.0-47.0) % MCV (81.0-99.0) fL MCH (27.0-31.0) pg MCHC (32.0-36.0) g/dL RDW (12.0-15.0) % Plt Count (130-450) 10^3/uL MPV (7.9-10.8) fL Neut # (1.5-6.6) 10^3/uL Lymph # (1.5-3.5) 10^3/uL [place] # (0.0-1.0) 10^3/uL Eos # (0.0-0.7) 10^3/uL Baso # (0.0-0.1) 10^3/uL Absolute Nucleated RBC x10^3/uL Nucleated RBCs /100WBC Sodium (135-145) mmol/L Potassium (3.5-5.0) mmol/L Chloride (101-111) mmol/L Carbon Dioxide (21-32) mmol/L Anion Gap (6-13) BUN (6-20) mg/dL Creatinine (0.4-1.0) mg/dL Estimated GFR (MDRD) (>89) Glucose (70-100) mg/dL POC Whole Bld Glucose 112 H 85 (70 - 100) mg/dL Calcium (8.5-10.3) mg/dL HIV 1&2 Ag/Ab, 4th Gen NON-REACTIVE (NON-REACTIVE) 09/08/16 09/08/16 09/08/16 Range/Units 23:16 22:45 17:48 WBC (4.8-10.8) x10^3/uL RBC (4.20-5.40) 10^6/uL Hgb (12.0-16.0) g/dL Hct (37.0-47.0) % MCV (81.0-99.0) fL MCH (27.0-31.0) pg MCHC (32.0-36.0) g/dL RDW (12.0-15.0) % Plt Count (130-450) 10^3/uL MPV (7.9-10.8) fL Neut # (1.5-6.6) 10^3/uL Lymph # (1.5-3.5) 10^3/uL [place] # (0.0-1.0) 10^3/uL Eos # (0.0-0.7) 10^3/uL Baso # (0.0-0.1) 10^3/uL Absolute Nucleated RBC x10^3/uL Nucleated RBCs /100WBC Sodium (135-145) mmol/L Potassium (3.5-5.0) mmol/L Chloride (101-111) mmol/L Carbon Dioxide (21-32) mmol/L Anion Gap (6-13) BUN (6-20) mg/dL Creatinine (0.4-1.0) mg/dL Estimated GFR (MDRD) (>89) Glucose (70-100) mg/dL POC Whole Bld Glucose 120 H 133 H 84 (70 - 100) mg/dL Calcium (8.5-10.3) mg/dL HIV 1&2 Ag/Ab, 4th Gen (NON-REACTIVE) 09/08/16 09/08/16 09/07/16 Range/Units 06:42 01:05 21:40 WBC (4.8-10.8) x10^3/uL RBC (4.20-5.40) 10^6/uL Hgb (12.0-16.0) g/dL Hct (37.0-47.0) % MCV (81.0-99.0) fL MCH (27.0-31.0) pg MCHC (32.0-36.0) g/dL RDW (12.0-15.0) % Plt Count (130-450) 10^3/uL MPV (7.9-10.8) fL Neut # (1.5-6.6) 10^3/uL Lymph # (1.5-3.5) 10^3/uL [place] # (0.0-1.0) 10^3/uL Eos # (0.0-0.7) 10^3/uL Baso # (0.0-0.1) 10^3/uL Absolute Nucleated RBC x10^3/uL Nucleated RBCs /100WBC Sodium (135-145) mmol/L Potassium (3.5-5.0) mmol/L Chloride (101-111) mmol/L Carbon Dioxide (21-32) mmol/L Anion Gap (6-13) BUN (6-20) mg/dL Creatinine (0.4-1.0) mg/dL Estimated GFR (MDRD) (>89) Glucose (70-100) mg/dL POC Whole Bld Glucose 191 H 422 H 437 H (70 - 100) mg/dL Calcium (8.5-10.3) mg/dL HIV 1&2 Ag/Ab, 4th Gen (NON-REACTIVE) - Current Medications Current Medications: Current Medications Generic Name Dose Route Start Last Admin Trade Name Freq PRN Reason Stop Dose Admin Hydromorphone HCl 1 mg 09/07/16 21:15 09/11/16 01:29 Dilaudid Inj IVP 1 mg Q2HR PRN Administration Pain 8 to 10 Acetaminophen 100 mls @ 400 mls/hr 09/08/16 12:59 09/10/16 22:44 Ofirmev IV 400 mls/hr Q6HR PRN Administration PAIN Vancomycin HCl 1 gm/ Sodium 250 mls @ 167 mls/hr 09/10/16 17:00 09/10/16 17:08 Chloride IV 167 mls/hr Q12H SYLVIA Administration Insulin Aspart 5 unit 09/08/16 08:00 09/10/16 17:21 Novolog SUBQ Not Given [facility] Protocol Insulin Aspart 2 - 10 unit 09/09/16 17:00 09/10/16 21:14 Novolog SUBQ 8 unit 0800,1200,1700,2100 SYLVIA Administration Protocol Insulin Glargine 70 unit 09/08/16 21:00 09/10/16 21:10 Lantus Solostar SUBQ 70 unit QPM SYLVIA Administration Nicotine 1 patch 09/08/16 09:00 09/10/16 11:21 Nicoderm TOP 1 patch DAILY SYLVIA Administration Ondansetron HCl 4 mg 09/07/16 21:15 09/10/16 21:23 Zofran Inj IVP 4 mg Q6HR PRN Administration Nausea / Vomiting Polyethylene Glycol 17 gm 09/08/16 09:00 09/10/16 11:23 Miralax PO 17 gm DAILY SYLVIA Administration Potassium Chloride 20 meq 09/09/16 09:00 09/10/16 21:15 K-Dur PO 20 meq QID SYLVIA Administration Prochlorperazine Edisylate 10 mg 09/07/16 21:15 09/11/16 01:28 Compazine Inj IVP 10 mg Q6HR PRN Administration Nausea / Vomiting Sodium Chloride 10 ml 09/07/16 21:15 09/10/16 14:45 Normal Saline Flush 0.9% IVP 10 ml PRN PRN Administration NEEDED PER PROVIDER ORDERS Sodium Chloride 10 ml 09/07/16 22:00 09/10/16 21:15 Normal Saline Flush 0.9% IVP 10 ml Q8HR SYVLIA Administration Zolpidem Tartrate 5 mg 09/10/16 22:57 09/10/16 23:33 Ambien PO 5 mg QPM PRN Administration Insomnia - Physical Exam Respiratory: positive: Chest non-tender, Breath sounds nml Cardiovascular: positive: Regular rate & rhythm Abdomen: positive: Non-tender Comments/Other: Patient was examined at 1930 and was sleeping and continued to sleep during this examination. Impression/Plan - Problem List Problem List: Interestingly the patient has had 2 blood cultures come back positive for S pyogenes. Her WBC are normal. Treatment is usually penicillin. Patient is on Vancomycin. With regard to the peropancreatic findings patient should have EUS with fine needle aspiration of the surrounding lymphadenopathy. 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 Review of her radiographic studies does not suggest a GI (pancreatic or ductal) malignancy. Much less likely would be an atypical infection such as TB. As EUS is not and cannot be done at [facility] I recommend temporary transfer to an institution that would be willing to get tissue for the diagnosis. It is highly unlikely that surgical intervention will be required. It would be in the patient's best interests if her diagnosis could be made in the least invasive way possible.
[2016-09-11] MEDS: SODIUM CHLORIDE FLUSH 0.9% 10 ML SYRINGE IVP SCH ×4 (04:33→21:25)
[2016-09-11] MEDS: VANCOMYCIN INJ 1 GM in SODIUM CHLORIDE 0.9% 250 ML IV SCH ×2 (05:28→16:55)
[2016-09-11 05:55] LABS: BASOPHILS % (AUTO) 0.7 %; HGB - HEMOGLOBIN 11.3 g/dL (12.0-16.0); LYMPHOCYTES # (AUTO) 0.5 10^3/uL (1.5-3.5); LYMPHOCYTES % (AUTO) 12.5 %; MEAN CORPUSCULAR HEMOGLOBIN 25.7 pg (27.0-31.0); MEAN CORPUSCULAR HGB CONC 32.4 g/dL (32.0-36.0); MEAN CORPUSCULAR VOLUME 79.4 fL (81.0-99.0); MEAN PLATELET VOLUME 8.7 fL (7.9-10.8); MONOCYTES # (AUTO) 0.1 10^3/uL (0.0-1.0); MONOCYTES % (AUTO) 3.2 %; NEUTROPHILS # (AUTO) 3.5 10^3/uL (1.5-6.6); NEUTROPHILS % (AUTO) 83.6 %; NUCLEATED RED BLOOD CELLS AUTO 0.1 /100WBC; RED BLOOD COUNT 4.41 10^6/uL (4.20-5.40); RED CELL DISTRIBUTION WIDTH 15.5 % (12.0-15.0); UNCORRECTED WHITE BLOOD COUNT 4.2 x10^3/uL; WHITE BLOOD COUNT 4.2 x10^3/uL (4.8-10.8)
[2016-09-11 06:05] LABS: ALBUMIN/GLOBULIN RATIO 0.7 (1.0-2.2); BILIRUBIN,TOTAL 0.6 mg/dL (0.2-1.0); CALCIUM 8.4 mg/dL (8.5-10.3); CREATININE 0.4 mg/dL (0.4-1.0); POTASSIUM 4.4 mmol/L (3.5-5.0); TOTAL PROTEIN 6.1 g/dL (6.7-8.2)
[2016-09-11] MEDS: ACETAMINOPHEN 1,000 MG/100 ML 100 ML IV PRN ×2 (07:47→15:21)
[2016-09-11] MEDS: INSU100I18 SUBQ SCH ×4 (08:27→21:23)
[2016-09-11] MEDS: INSULIN ASPART 300 UNIT/3 ML PEN SUBQ SCH ×3 (08:28→16:56)
[2016-09-11] MEDS: SODIUM CHLORIDE FLUSH 0.9% 10 ML SYRINGE IVP PRN ×2 (09:40→15:21)
[2016-09-11] MEDS: POLYETHYLENE GLYCOL 3350 17 GM PACKET PO SCH (09:55)
[2016-09-11] MEDS: POTASSIUM CHLORIDE 20 MEQ TABLET PO SCH ×4 (09:56→21:23)
[2016-09-11] MEDS: NICOTINE 7 MG PATCH TOP SCH (10:41)
[2016-09-11] MEDS ORDERED: HYDROmorphone 1 MG/ML SYRINGE IM STA (11:47)
--- NOTE | 2016-09-11 11:57 | PROVIDER PROGRESS NOTE ---
Assessment/Plan - Problem List (1) Acute generalized abdominal pain Assessment/Plan: Her pains still in the lower abd/pelvic region. This does not correlate well with her pancreatic findings. Will get pelvic US even though CT was neg. (2) Diabetes type 1, uncontrolled Assessment/Plan: She is better controlled even with fever/ bactremia (3) Mass in the abdomen Assessment/Plan: Thank you for the surgery consult update.. Need to continue antibx and have neg Blood culture. Agree lymphoma most likely. However, still having fevers So will recheck tomorrow and if still have fevers will have her transferred for KEEGAN and EUS. - Current Meds Current Meds: Current Medications Generic Name Dose Route Start Last Admin Trade Name Freq PRN Reason Stop Dose Admin Hydromorphone HCl 1 mg 09/07/16 21:15 09/11/16 09:40 Dilaudid Inj IVP 1 mg Q2HR PRN Administration Pain 8 to 10 Acetaminophen 100 mls @ 400 mls/hr 09/08/16 12:59 09/11/16 07:47 Ofirmev IV 400 mls/hr Q6HR PRN Administration PAIN Vancomycin HCl 1 gm/ Sodium 250 mls @ 167 mls/hr 09/10/16 17:00 09/11/16 05:28 Chloride IV 167 mls/hr Q12H SYLVIA Administration Insulin Aspart 5 unit 09/08/16 08:00 09/11/16 08:28 Novolog SUBQ Not Given TIDWM SYLVIA Protocol Insulin Aspart 2 - 10 unit 09/09/16 17:00 09/11/16 08:27 Novolog SUBQ Not Given 0800,1200,1700,2100 SYLVIA Protocol Insulin Glargine 70 unit 09/08/16 21:00 09/10/16 21:10 Lantus Solostar SUBQ 70 unit QPM SYLVIA Administration Nicotine 1 patch 09/08/16 09:00 09/11/16 10:41 Nicoderm TOP 1 patch DAILY SYLVIA Administration Ondansetron HCl 4 mg 09/07/16 21:15 09/10/16 21:23 Zofran Inj IVP 4 mg Q6HR PRN Administration Nausea / Vomiting Polyethylene Glycol 17 gm 09/08/16 09:00 09/11/16 09:55 Miralax PO 17 gm DAILY SYLVIA Administration Potassium Chloride 20 meq 09/09/16 09:00 09/11/16 09:56 K-Dur PO 20 meq QID SYLVIA Administration Prochlorperazine Edisylate 10 mg 09/07/16 21:15 09/11/16 01:28 Compazine Inj IVP 10 mg Q6HR PRN Administration Nausea / Vomiting Sodium Chloride 10 ml 09/07/16 21:15 09/11/16 09:40 Normal Saline Flush 0.9% IVP 10 ml PRN PRN Administration NEEDED PER PROVIDER ORDERS Sodium Chloride 10 ml 09/07/16 22:00 09/11/16 04:33 Normal Saline Flush 0.9% IVP 10 ml Q8HR SYLVIA Administration Zolpidem Tartrate 5 mg 09/10/16 22:57 09/10/16 23:33 Ambien PO 5 mg QPM PRN Administration Insomnia - Lab Result Fish Bone Diagrams: 09/11/16 05:00 09/11/16 05:00 - Additional Planning My Orders: My Active Orders 09/11/16 11:47 HYDROmorphone INJ [Dilaudid Inj] 2 mg IM ONCE STA 09/12/16 05:00 CBC - COMP BLD CT W/AUTO DIFF [HEME] DAILYLAB COMPREHENSIVE METABOLIC PANEL [CHEM] DAILYLAB 09/12/16 16:00 VANCOMYCIN TROUGH [CHEM] Timed 09/13/16 05:00 CBC - COMP BLD CT W/AUTO DIFF [HEME] DAILYLAB COMPREHENSIVE METABOLIC PANEL [CHEM] DAILYLAB Subjective - Subjective Patient Reports: Abdominal Pain Objective Vital Signs: Vital Signs - 24 hr 09/10/16 09/11/16 09/11/16 16:06 01:13 06:47 Temperature 39.4 C H 38.0 C H 38.0 C H Heart Rate [ 141 H 122 H Brachial] Respiratory 20 20 Rate Blood Pressure 100/61 101/64 [Right Brachial artery] O2 Saturation 93 94 09/11/16 08:15 Temperature 38.8 C H Heart Rate [ 136 H Brachial] Respiratory 28 H Rate Blood Pressure 117/75 [Right Brachial artery] O2 Saturation 94 Oxygen O2 Source Room air I&O (Last 24 Hrs): Intake and Output Totals x24h 09/09/16 09/10/16 09/11/16 23:59 23:59 23:59 Intake Total 3922 2372 820 Output Total 3070 1650 Balance 3922 -698 -830 General: Alert, Oriented x3, Cooperative HEENT: PERRLA, EOMI Neck: No JVD, No thyromegaly Neuro: Alert, Oriented Times 3 Cardiovascular: Regular rate, Normal S2, No murmurs Respiratory: No respiratory distress, Breath sounds nml Abdomen: Normal bowel sounds, Soft Skin: No rashes, No breakdown - Results Results: Laboratory Results WBC 4.2 x10^3/uL (4.8-10.8) L 09/11/16 05:00 RBC 4.41 10^6/uL (4.20-5.40) 09/11/16 05:00 Hgb 11.3 g/dL (12.0-16.0) L 09/11/16 05:00 Hct 35.0 % (37.0-47.0) L 09/11/16 05:00 MCV 79.4 fL (81.0-99.0) L 09/11/16 05:00 MCH 25.7 pg (27.0-31.0) L 09/11/16 05:00 MCHC 32.4 g/dL (32.0-36.0) 09/11/16 05:00 RDW 15.5 % (12.0-15.0) H 09/11/16 05:00 Plt Count 136 10^3/uL (130-450) 09/11/16 05:00 MPV 8.7 fL (7.9-10.8) 09/11/16 05:00 Neut # 3.5 10^3/uL (1.5-6.6) 09/11/16 05:00 Lymph # 0.5 10^3/uL (1.5-3.5) L 09/11/16 05:00 [place] # 0.1 10^3/uL (0.0-1.0) 09/11/16 05:00 Eos # 0.0 10^3/uL (0.0-0.7) 09/11/16 05:00 Baso # 0.0 10^3/uL (0.0-0.1) 09/11/16 05:00 Absolute Nucleated RBC 0.01 x10^3/uL 09/11/16 05:00 Nucleated RBCs 0.1 /100WBC 09/11/16 05:00 PT 9.7 secs (9.9-12.6) L 09/07/16 07:35 INR 0.9 (0.8-1.2) 09/07/16 07:35 VBG pH 7.405 (7.31-7.41) 09/08/16 06:32 VBG pCO2 42.0 mmHg (41-51) 09/08/16 06:32 VBG pO2 72.5 mmHg (25-47) H 09/08/16 06:32 VBG HCO3 25.7 mmol/L (23-28) 09/08/16 06:32 VBG Total CO2 27.0 mmol/L (24-29) 09/08/16 06:32 VBG O2 Saturation 94.8 % (60-80) H 09/08/16 06:32 VBG Base Excess 0.9 mmol/L (-2 - +2) 09/08/16 06:32 Sodium 131 mmol/L (135-145) L 09/11/16 05:00 Potassium 4.4 mmol/L (3.5-5.0) 09/11/16 05:00 Chloride 96 mmol/L (101-111) L 09/11/16 05:00 Carbon Dioxide 26 mmol/L (21-32) 09/11/16 05:00 Anion Gap 9.0 (6-13) 09/11/16 05:00 BUN 11 mg/dL (6-20) 09/11/16 05:00 Creatinine 0.4 mg/dL (0.4-1.0) 09/11/16 05:00 Estimated GFR (MDRD) 183 (>89) 09/11/16 05:00 Glucose 226 mg/dL (70-100) H 09/11/16 05:00 POC Whole Bld Glucose 169 mg/dL (70 - 100) H 09/11/16 08:00 Glycated Hemoglobin 13.1 % (4.6-6.2) H 09/07/16 07:35 Estim Average Glucose 329 (70-100) H 09/07/16 07:35 Calcium 8.4 mg/dL (8.5-10.3) L 09/11/16 05:00 Total Bilirubin 0.6 mg/dL (0.2-1.0) 09/11/16 05:00 AST 62 IU/L (10-42) H 09/11/16 05:00 ALT 178 IU/L (10-60) H 09/11/16 05:00 Alkaline Phosphatase 286 IU/L (42-121) H 09/11/16 05:00 Total Protein 6.1 g/dL (6.7-8.2) L 09/11/16 05:00 Albumin 2.6 g/dL (3.2-5.5) L 09/11/16 05:00 Globulin 3.5 g/dL (2.1-4.2) 09/11/16 05:00 Albumin/Globulin Ratio 0.7 (1.0-2.2) L 09/11/16 05:00 Lipase 16 U/L (22-51) L 09/07/16 07:35 Carcinoembryonic Ag 4.8 ng/mL 09/08/16 07:35 CA 19-9 Antigen 54 U/mL (<34) H 09/08/16 07:35 Serum HCG, Qual NEGATIVE 09/07/16 07:35 Urine Color YELLOW 09/09/16 Unknown Urine Clarity CLEAR (CLEAR) 09/09/16 Unknown Urine pH 6.5 PH (5.0-7.5) 09/09/16 Unknown Ur Specific [place] 1.010 (1.002-1.030) 09/09/16 Unknown Urine Protein NEGATIVE mg/dL (NEGATIVE) 09/09/16 Unknown Urine Glucose (UA) NEGATIVE mg/dL (NEGATIVE) 09/09/16 Unknown Urine Ketones NEGATIVE mg/dL (NEGATIVE) 09/09/16 Unknown Urine Occult Blood NEGATIVE (NEGATIVE) 09/09/16 Unknown Urine Nitrite NEGATIVE (NEGATIVE) 09/09/16 Unknown Urine Bilirubin NEGATIVE (NEGATIVE) 09/09/16 Unknown Urine Urobilinogen 4 E.U./dL (NORMAL) H 09/09/16 Unknown Ur Leukocyte Esterase NEGATIVE (NEGATIVE) 09/09/16 Unknown Urine RBC None Seen /HPF (0-5) 09/09/16 Unknown Urine WBC 0-3 /HPF (0-5) 09/09/16 Unknown Ur Squamous Epith Cells MANY Squamous (<= Few) H 09/09/16 Unknown Urine Bacteria Moderate /HPF (None Seen) H 09/09/16 Unknown Urine Culture Comments NOT INDICATED 09/09/16 Unknown Urine Opiates Screen POSITIVE (NEGATIVE) H 09/08/16 00:10 Ur Oxycodone Screen NEGATIVE (NEGATIVE) 09/08/16 00:10 Urine Methadone Screen NEGATIVE (NEGATIVE) 09/08/16 00:10 Ur Propoxyphene Screen NEGATIVE (NEGATIVE) 09/08/16 00:10 Ur Barbiturates Screen NEGATIVE (NEGATIVE) 09/08/16 00:10 Ur Tricyclics Screen NEGATIVE (NEGATIVE) 09/08/16 00:10 Ur Phencyclidine Scrn NEGATIVE (NEGATIVE) 09/08/16 00:10 Ur Amphetamine Screen POSITIVE (NEGATIVE) H 09/08/16 00:10 U Methamphetamines Scrn POSITIVE (NEGATIVE) H 09/08/16 00:10 U Benzodiazepines Scrn NEGATIVE (NEGATIVE) 09/08/16 00:10 Urine Cocaine Screen NEGATIVE (NEGATIVE) 09/08/16 00:10 U Cannabinoids Screen NEGATIVE (NEGATIVE) 09/08/16 00:10 Serum Ketones NEGATIVE (NEGATIVE) 09/07/16 07:35 HIV 1&2 Ag/Ab, 4th Gen NON-REACTIVE (NON-REACTIVE) 09/09/16 11:19 - Procedures Procedures: Procedures INSERT INFUSION DEV IN R INT JUGULAR VEIN, PERC (04/21/16) INSERTION OF INFUSION DEV INTO SUP VENA CAVA, PERC APPROACH (03/27/16) INSERTION OF INFUSION DEVICE INTO R ATRIUM, PERC APPROACH (12/04/15) TRANSFUSE NONAUT RED BLOOD CELLS IN PERIPH VEIN, PERC (04/21/16) ULTRASONOGRAPHY OF RIGHT JUGULAR VEINS, GUIDANCE (04/21/16)
[2016-09-11] MEDS: ONDANSETRON 4 MG/2 ML VIAL IVP PRN (15:16)
[2016-09-11 17:36] LABS: CMV DNA QN RT PCR <200 IU/mL (())
--- NOTE | 2016-09-11 18:30 | Ultrasound Preliminary Report ---
Exam: US Pelvic Complete - Non OB IMPRESSION: Unremarkable pelvic ultrasound exam. [facility] SITE ID: [id number]
--- NOTE | 2016-09-11 18:32 | Ultrasound Report ---
EXAM: PELVIC ULTRASOUND EXAM DATE: 09/11/2016 06:05 PM. CLINICAL HISTORY: Pelvic pain L adnexal. COMPARISON: None. TECHNIQUE: Realtime transabdominal pelvic scan performed with static image documentation. FINDINGS: Uterus: 6.9 x 4 x 4.6 cm, volume 66.4 cc. Anteverted position. Normal overall size and echotexture. Masses: None. Endometrium: 4.1 mm. Normal. Cervix: Unremarkable. Right Ovary: 2.4 x 1.6 x 1.5 cm, volume 3.1 cc. Normal echotexture and blood flow. Left Ovary: 1.8 x 1.2 x 1.3 cm, volume 1.44 cc. Normal echotexture and blood flow. Free Fluid: Small volume of pelvic fluid considered physiologic. Other: None. IMPRESSION: Unremarkable pelvic ultrasound exam. [facility] Referring Provider Line: [phone] SITE ID: [id number]
[2016-09-11] MEDS: INSULIN GLARGINE 300 UNIT/3 ML PEN SUBQ SCH (21:24)
[2016-09-11] MEDS: ZOLPIDEM 5 MG TABLET PO PRN (22:09)
[2016-09-12] MEDS: ONDANSETRON 4 MG/2 ML VIAL IVP PRN (00:22)
[2016-09-12] MEDS: HYDROmorphone 1 MG/ML SYRINGE IVP PRN ×11 (00:22→20:54)
[2016-09-12] MEDS: SODIUM CHLORIDE FLUSH 0.9% 10 ML SYRINGE IVP PRN ×14 (00:22→20:55)
[2016-09-12] MEDS: SODIUM CHLORIDE FLUSH 0.9% 10 ML SYRINGE IVP SCH ×4 (05:34→20:55)
[2016-09-12] MEDS: VANCOMYCIN INJ 1 GM in SODIUM CHLORIDE 0.9% 250 ML IV SCH ×2 (05:34→17:18)
[2016-09-12] MEDS: ACETAMINOPHEN 1,000 MG/100 ML 100 ML IV PRN ×4 (06:26→17:18)
[2016-09-12 06:44] LABS: BASOPHILS % (AUTO) 0.6 %; EOSINOPHILS % (AUTO) 0.1 %; HCT - HEMATOCRIT 32.2 % (37.0-47.0); HGB - HEMOGLOBIN 10.3 g/dL (12.0-16.0); LYMPHOCYTES # (AUTO) 1.1 10^3/uL (1.5-3.5); LYMPHOCYTES % (AUTO) 23.2 %; MEAN CORPUSCULAR HEMOGLOBIN 25.5 pg (27.0-31.0); MEAN CORPUSCULAR HGB CONC 32.1 g/dL (32.0-36.0); MEAN CORPUSCULAR VOLUME 79.4 fL (81.0-99.0); MEAN PLATELET VOLUME 9.4 fL (7.9-10.8); MONOCYTES # (AUTO) 0.3 10^3/uL (0.0-1.0); MONOCYTES % (AUTO) 5.3 %; NEUTROPHILS # (AUTO) 3.4 10^3/uL (1.5-6.6); NEUTROPHILS % (AUTO) 70.8 %; NUCLEATED RED BLOOD CELLS AUTO 0.1 /100WBC; RED BLOOD COUNT 4.05 10^6/uL (4.20-5.40); RED CELL DISTRIBUTION WIDTH 15.7 % (12.0-15.0); UNCORRECTED WHITE BLOOD COUNT 4.8 x10^3/uL; WHITE BLOOD COUNT 4.8 x10^3/uL (4.8-10.8)
[2016-09-12 06:54] LABS: ALBUMIN/GLOBULIN RATIO 0.7 (1.0-2.2); BILIRUBIN,TOTAL 0.5 mg/dL (0.2-1.0); CALCIUM 8.2 mg/dL (8.5-10.3); CREATININE 0.3 mg/dL (0.4-1.0); POTASSIUM 4.4 mmol/L (3.5-5.0); TOTAL PROTEIN 6.1 g/dL (6.7-8.2)
[2016-09-12] MEDS: INSU100I18 SUBQ SCH ×4 (08:45→21:02)
[2016-09-12] MEDS: INSULIN ASPART 300 UNIT/3 ML PEN SUBQ SCH ×3 (08:45→16:50)
[2016-09-12] MEDS: NICOTINE 7 MG PATCH TOP SCH (08:45)
[2016-09-12] MEDS: POTASSIUM CHLORIDE 20 MEQ TABLET PO SCH ×5 (08:49→21:52)
[2016-09-12] MEDS: POLYETHYLENE GLYCOL 3350 17 GM PACKET PO SCH (08:49)
--- NOTE | 2016-09-12 09:02 | XRAY Report ---
FRONTAL CHEST: 09/11/2016 CLINICAL INDICATION: Line placement. COMPARISON: 09/09/2016 Frontal view of the chest demonstrates a normal cardiac silhouette. Right jugular central venous cat heter terminates in the superior vena cava. The lungs are clear. No effusion or pneumothorax is pre sent. IMPRESSION: RIGHT JUGULAR CENTRAL VENOUS CATHETER TERMINATING IN THE SUPERIOR VENA CAVA. NO PNEUMOT HORAX. JOB #: [id number] EXT JOB #:[id number]
[2016-09-12] MEDS ORDERED: PREGABALIN 25 MG CAPSULE PO SCH ×2 (11:00)
[2016-09-12] MEDS ORDERED: NICOTINE 21 MG PATCH TOP SCH (11:15)
[2016-09-12] MEDS ORDERED: clonazePAM 0.5 MG TABLET PO SCH (12:00)
--- NOTE | 2016-09-12 13:34 | PROVIDER PROGRESS NOTE ---
Assessment/Plan - Problem List (1) Acute generalized abdominal pain Assessment/Plan: Felicitas is still having the pelvic pain. The US was negative. She wonders if it is the pancreas. She is told it is not in the pelvis. (2) Diabetes type 1, uncontrolled Assessment/Plan: Her diabetes is better controlled. (3) Mass in the abdomen Assessment/Plan: The GI doctor at [facility] was called for a consult. After a review of her presentation and hospital course He said he would not take the patient for the procedure Because: 1. They do not do the procedure there on weekends. 2. It is an outpatient procedure. 3. she does not sound like she is medically ready for this procedure. - Current Meds Current Meds: Current Medications Generic Name Dose Route Start Last Admin Trade Name Freq PRN Reason Stop Dose Admin Clonazepam 0.5 mg 09/12/16 12:00 09/12/16 11:52 Klonopin PO 0.5 mg TID SYLVIA Administration Heparin Sodium (Beef Lung) 30 - 50 unit 09/12/16 05:49 09/12/16 08:57 IVP 10/12/16 05:49 50 unit ONCE PRN Administration Central Line Protocol (<24 hr) Hydromorphone HCl 1 mg 09/07/16 21:15 09/12/16 12:45 Dilaudid Inj IVP 1 mg Q2HR PRN Administration Pain 8 to 10 Acetaminophen 100 mls @ 400 mls/hr 09/08/16 12:59 09/12/16 10:55 Ofirmev IV 400 mls/hr Q6HR PRN Administration PAIN Vancomycin HCl 1 gm/ Sodium 250 mls @ 167 mls/hr 09/10/16 17:00 09/12/16 05:34 Chloride IV 167 mls/hr Q12H SYLVIA Administration Insulin Aspart 5 unit 09/08/16 08:00 09/12/16 11:24 Novolog SUBQ 5 unit TIDWM SYLVIA Administration Protocol Insulin Aspart 2 - 10 unit 09/09/16 17:00 09/12/16 11:15 Novolog SUBQ 8 unit 0800,1200,1700,2100 SYLVIA Administration Protocol Insulin Glargine 70 unit 09/08/16 21:00 09/11/16 21:24 Lantus Solostar SUBQ 70 unit QPM SYLVIA Administration Nicotine 1 patch 09/12/16 11:15 09/12/16 11:20 Nicoderm TOP 1 patch DAILY SYLVIA Administration Ondansetron HCl 4 mg 09/07/16 21:15 09/12/16 00:22 Zofran Inj IVP 4 mg Q6HR PRN Administration Nausea / Vomiting Polyethylene Glycol 17 gm 09/08/16 09:00 09/12/16 08:49 Miralax PO 17 gm DAILY SYLVIA Administration Potassium Chloride 20 meq 09/09/16 09:00 09/12/16 11:52 K-Dur PO 20 meq QID SYLVIA Administration Pregabalin 75 mg 09/12/16 11:00 09/12/16 11:20 Lyrica PO 75 mg BID SYLVIA Administration Prochlorperazine Edisylate 10 mg 09/07/16 21:15 09/11/16 17:11 Compazine Inj IVP 10 mg Q6HR PRN Administration Nausea / Vomiting Sodium Chloride 10 ml 09/07/16 21:15 09/12/16 11:21 Normal Saline Flush 0.9% IVP 10 ml PRN PRN Administration NEEDED PER PROVIDER ORDERS Sodium Chloride 10 ml 09/07/16 22:00 09/12/16 12:59 Normal Saline Flush 0.9% IVP 30 ml Q8HR SYLVIA Administration Sodium Chloride 20 ml 09/12/16 05:50 09/12/16 06:10 Normal Saline Flush 0.9% IVP 20 ml PRN PRN Administration After Blood Draw Zolpidem Tartrate 5 mg 09/10/16 22:57 09/11/16 22:09 Ambien PO 5 mg QPM PRN Administration Insomnia - Lab Result Fish Bone Diagrams: 09/12/16 06:00 09/12/16 06:00 - Additional Planning My Orders: My Active Orders 09/11/16 13:12 Anesthesia Consult [CONS] Routine 09/12/16 05:49 Heparin Flush 30 - 50 unit IVP ONCE PRN 09/12/16 05:50 Sodium Chloride Flush 0.9% [Normal Saline Flush 0.9%] 20 ml IVP PRN PRN 09/12/16 11:00 Pregabalin [Lyrica] 75 mg PO BID 09/12/16 11:15 Nicotine 21 mg Patch [Nicoderm] 1 patch TOP DAILY 09/12/16 12:00 clonazePAM [KlonoPIN] 0.5 mg PO TID 09/12/16 16:00 VANCOMYCIN TROUGH [CHEM] Timed 09/13/16 05:00 CBC - COMP BLD CT W/AUTO DIFF [HEME] DAILYLAB COMPREHENSIVE METABOLIC PANEL [CHEM] DAILYLAB Subjective - Subjective Patient Reports: Abdominal Pain, Fatigue Objective Vital Signs: Vital Signs - 24 hr 09/11/16 09/11/16 09/12/16 15:55 19:45 00:10 Temperature 39.1 C H 37.8 C H 39.3 C H Heart Rate [ 134 H 133 H 146 H Brachial] Respiratory 26 H 16 20 Rate Blood Pressure [Left Brachial artery] Blood Pressure 104/70 126/76 126/78 [Right Brachial artery] O2 Saturation 95 95 93 09/12/16 09/12/16 09/12/16 00:47 01:21 11:08 Temperature 38.1 C H 37.8 C H 37.1 C Heart Rate [ 128 H 113 H Brachial] Respiratory 18 Rate Blood Pressure 107/70 [Left Brachial artery] Blood Pressure [Right Brachial artery] O2 Saturation 91 L 96 Oxygen O2 Source Room air I&O (Last 24 Hrs): Intake and Output Totals x24h 09/10/16 09/11/16 09/12/16 23:59 23:59 23:59 Intake Total 2372 1680 1740 Output Total 3070 4500 1050 Balance -698 -2820 690 General: Alert, Oriented x3, Cooperative HEENT: PERRLA, EOMI Neck: No JVD, No thyromegaly Neuro: Alert, Oriented Times 3 Cardiovascular: Regular rate, No murmurs Respiratory: Chest non-tender, No respiratory distress, Breath sounds nml Abdomen: Normal bowel sounds, Soft, No tenderness Extremities: No cyanosis, No edema Skin: No rashes - Results Results: Laboratory Results WBC 4.8 x10^3/uL (4.8-10.8) 09/12/16 06:00 RBC 4.05 10^6/uL (4.20-5.40) L 09/12/16 06:00 Hgb 10.3 g/dL (12.0-16.0) L 09/12/16 06:00 Hct 32.2 % (37.0-47.0) L 09/12/16 06:00 MCV 79.4 fL (81.0-99.0) L 09/12/16 06:00 MCH 25.5 pg (27.0-31.0) L 09/12/16 06:00 MCHC 32.1 g/dL (32.0-36.0) 09/12/16 06:00 RDW 15.7 % (12.0-15.0) H 09/12/16 06:00 Plt Count 134 10^3/uL (130-450) 09/12/16 06:00 MPV 9.4 fL (7.9-10.8) 09/12/16 06:00 Neut # 3.4 10^3/uL (1.5-6.6) 09/12/16 06:00 Lymph # 1.1 10^3/uL (1.5-3.5) L 09/12/16 06:00 [place] # 0.3 10^3/uL (0.0-1.0) 09/12/16 06:00 Eos # 0.0 10^3/uL (0.0-0.7) 09/12/16 06:00 Baso # 0.0 10^3/uL (0.0-0.1) 09/12/16 06:00 Absolute Nucleated RBC 0.00 x10^3/uL 09/12/16 06:00 Nucleated RBCs 0.1 /100WBC 09/12/16 06:00 PT 9.7 secs (9.9-12.6) L 09/07/16 07:35 INR 0.9 (0.8-1.2) 09/07/16 07:35 VBG pH 7.405 (7.31-7.41) 09/08/16 06:32 VBG pCO2 42.0 mmHg (41-51) 09/08/16 06:32 VBG pO2 72.5 mmHg (25-47) H 09/08/16 06:32 VBG HCO3 25.7 mmol/L (23-28) 09/08/16 06:32 VBG Total CO2 27.0 mmol/L (24-29) 09/08/16 06:32 VBG O2 Saturation 94.8 % (60-80) H 09/08/16 06:32 VBG Base Excess 0.9 mmol/L (-2 - +2) 09/08/16 06:32 Sodium 131 mmol/L (135-145) L 09/12/16 06:00 Potassium 4.4 mmol/L (3.5-5.0) 09/12/16 06:00 Chloride 92 mmol/L (101-111) L 09/12/16 06:00 Carbon Dioxide 30 mmol/L (21-32) 09/12/16 06:00 Anion Gap 9.0 (6-13) 09/12/16 06:00 BUN 12 mg/dL (6-20) 09/12/16 06:00 Creatinine 0.3 mg/dL (0.4-1.0) L 09/12/16 06:00 Estimated GFR (MDRD) 255 (>89) 09/12/16 06:00 Glucose 164 mg/dL (70-100) H 09/12/16 06:00 POC Whole Bld Glucose 267 mg/dL (70 - 100) H 09/11/16 20:19 Glycated Hemoglobin 13.1 % (4.6-6.2) H 09/07/16 07:35 Estim Average Glucose 329 (70-100) H 09/07/16 07:35 Calcium 8.2 mg/dL (8.5-10.3) L 09/12/16 06:00 Total Bilirubin 0.5 mg/dL (0.2-1.0) 09/12/16 06:00 AST 37 IU/L (10-42) 09/12/16 06:00 ALT 119 IU/L (10-60) H 09/12/16 06:00 Alkaline Phosphatase 347 IU/L (42-121) H 09/12/16 06:00 Total Protein 6.1 g/dL (6.7-8.2) L 09/12/16 06:00 Albumin 2.5 g/dL (3.2-5.5) L 09/12/16 06:00 Globulin 3.6 g/dL (2.1-4.2) 09/12/16 06:00 Albumin/Globulin Ratio 0.7 (1.0-2.2) L 09/12/16 06:00 Lipase 16 U/L (22-51) L 09/07/16 07:35 Carcinoembryonic Ag 4.8 ng/mL 09/08/16 07:35 CA 19-9 Antigen 54 U/mL (<34) H 09/08/16 07:35 Serum HCG, Qual NEGATIVE 09/07/16 07:35 Urine Color YELLOW 09/09/16 Unknown Urine Clarity CLEAR (CLEAR) 09/09/16 Unknown Urine pH 6.5 PH (5.0-7.5) 09/09/16 Unknown Ur Specific [place] 1.010 (1.002-1.030) 09/09/16 Unknown Urine Protein NEGATIVE mg/dL (NEGATIVE) 09/09/16 Unknown Urine Glucose (UA) NEGATIVE mg/dL (NEGATIVE) 09/09/16 Unknown Urine Ketones NEGATIVE mg/dL (NEGATIVE) 09/09/16 Unknown Urine Occult Blood NEGATIVE (NEGATIVE) 09/09/16 Unknown Urine Nitrite NEGATIVE (NEGATIVE) 09/09/16 Unknown Urine Bilirubin NEGATIVE (NEGATIVE) 09/09/16 Unknown Urine Urobilinogen 4 E.U./dL (NORMAL) H 09/09/16 Unknown Ur Leukocyte Esterase NEGATIVE (NEGATIVE) 09/09/16 Unknown Urine RBC None Seen /HPF (0-5) 09/09/16 Unknown Urine WBC 0-3 /HPF (0-5) 09/09/16 Unknown Ur Squamous Epith Cells MANY Squamous (<= Few) H 09/09/16 Unknown Urine Bacteria Moderate /HPF (None Seen) H 09/09/16 Unknown Urine Culture Comments NOT INDICATED 09/09/16 Unknown Urine Opiates Screen POSITIVE (NEGATIVE) H 09/08/16 00:10 Ur Oxycodone Screen NEGATIVE (NEGATIVE) 09/08/16 00:10 Urine Methadone Screen NEGATIVE (NEGATIVE) 09/08/16 00:10 Ur Propoxyphene Screen NEGATIVE (NEGATIVE) 09/08/16 00:10 Ur Barbiturates Screen NEGATIVE (NEGATIVE) 09/08/16 00:10 Ur Tricyclics Screen NEGATIVE (NEGATIVE) 09/08/16 00:10 Ur Phencyclidine Scrn NEGATIVE (NEGATIVE) 09/08/16 00:10 Ur Amphetamine Screen POSITIVE (NEGATIVE) H 09/08/16 00:10 U Methamphetamines Scrn POSITIVE (NEGATIVE) H 09/08/16 00:10 U Benzodiazepines Scrn NEGATIVE (NEGATIVE) 09/08/16 00:10 Urine Cocaine Screen NEGATIVE (NEGATIVE) 09/08/16 00:10 U Cannabinoids Screen NEGATIVE (NEGATIVE) 09/08/16 00:10 Serum Ketones NEGATIVE (NEGATIVE) 09/07/16 07:35 CMV DNA Qnt Source abdomen (()) 09/09/16 11:19 CMV Qnt PCR IU/mL <200 IU/mL (()) 09/09/16 11:19 CMV Qnt PCR log IU/mL <2.30 Log IU/mL (()) 09/09/16 11:19 HIV 1&2 Ag/Ab, 4th Gen NON-REACTIVE (NON-REACTIVE) 09/09/16 11:19 - Procedures Procedures: Procedures INSERT INFUSION DEV IN R INT JUGULAR VEIN, PERC (04/21/16) INSERTION OF INFUSION DEV INTO SUP VENA CAVA, PERC APPROACH (03/27/16) INSERTION OF INFUSION DEVICE INTO R ATRIUM, PERC APPROACH (12/04/15) TRANSFUSE NONAUT RED BLOOD CELLS IN PERIPH VEIN, PERC (04/21/16) ULTRASONOGRAPHY OF RIGHT JUGULAR VEINS, GUIDANCE (04/21/16)
[2016-09-12] MEDS ORDERED: DOCUSATE SODIUM 250 MG CAPSULE PO PRN ×2 (14:45→16:18)
[2016-09-12] MEDS ORDERED: MAGNESIUM CITRATE 296 ML BOTTLE PO ONE (16:15)
[2016-09-12] MEDS ORDERED: ONDANSETRON 4 MG/2 ML VIAL IVP PRN (16:16)
[2016-09-12] MEDS ORDERED: PROCHLORPERAZINE 10 MG/2 ML VIAL IVP PRN (16:16)
[2016-09-12] MEDS ORDERED: ZOLPIDEM 5 MG TABLET PO PRN (16:17)
[2016-09-12] MEDS: PREGABALIN 25 MG CAPSULE PO SCH (20:54)
[2016-09-12] MEDS ORDERED: INSULIN GLARGINE 300 UNIT/3 ML PEN SUBQ SCH (21:00)
[2016-09-12] MEDS: clonazePAM 0.5 MG TABLET PO SCH (21:51)
[2016-09-13] MEDS: HYDROmorphone 1 MG/ML SYRINGE IVP PRN ×10 (00:39→18:53)
[2016-09-13] MEDS: SODIUM CHLORIDE FLUSH 0.9% 10 ML SYRINGE IVP PRN ×10 (00:40→15:29)
[2016-09-13] MEDS: ACETAMINOPHEN 1,000 MG/100 ML 100 ML IV PRN ×4 (00:55→16:17)
[2016-09-13] MEDS: VANCOMYCIN INJ 1 GM in SODIUM CHLORIDE 0.9% 250 ML IV SCH ×2 (00:56→09:06)
[2016-09-13] MEDS: clonazePAM 0.5 MG TABLET PO SCH ×3 (05:55→17:44)
[2016-09-13] MEDS: SODIUM CHLORIDE FLUSH 0.9% 10 ML SYRINGE IVP SCH ×3 (05:55→12:20)
[2016-09-13 06:41] LABS: AMYLASE 36 U/L (28-100)
[2016-09-13 06:55] LABS: LIPASE < 10 U/L (22-51)
[2016-09-13] MEDS: INSULIN ASPART 300 UNIT/3 ML PEN SUBQ SCH ×3 (08:05→17:45)
[2016-09-13] MEDS: INSU100I18 SUBQ SCH ×3 (08:11→17:45)
[2016-09-13] MEDS: PREGABALIN 25 MG CAPSULE PO SCH (08:24)
[2016-09-13] MEDS: POTASSIUM CHLORIDE 20 MEQ TABLET PO SCH ×3 (08:35→17:44)
[2016-09-13] MEDS ORDERED: SENNA 8.6 MG TABLET PO SCH ×2 (09:00)
[2016-09-13] MEDS ORDERED: POLYETHYLENE GLYCOL 3350 17 GM PACKET PO SCH (09:00)
[2016-09-13] MEDS ORDERED: NICOTINE 21 MG PATCH TOP SCH (09:00)
[2016-09-13] MEDS ORDERED: CEFEPIME 2 GM in SODIUM CHLORIDE 0.9% MINIBAG 100 ML IV SCH (09:00)
[2016-09-13 12:02] LABS: BASOPHILS # (AUTO) 0.1 10^3/uL (0.0-0.1); EOSINOPHILS # (AUTO) 0.1 10^3/uL (0.0-0.7); EOSINOPHILS % (AUTO) 1.9 %; HCT - HEMATOCRIT 30.3 % (37.0-47.0); LYMPHOCYTES # (AUTO) 1.9 10^3/uL (1.5-3.5); LYMPHOCYTES % (AUTO) 35.6 %; MEAN CORPUSCULAR HEMOGLOBIN 26.1 pg (27.0-31.0); MEAN CORPUSCULAR HGB CONC 32.9 g/dL (32.0-36.0); MEAN CORPUSCULAR VOLUME 79.2 fL (81.0-99.0); MEAN PLATELET VOLUME 8.8 fL (7.9-10.8); MONOCYTES # (AUTO) 0.4 10^3/uL (0.0-1.0); NEUTROPHILS # (AUTO) 2.8 10^3/uL (1.5-6.6); NEUTROPHILS % (AUTO) 53.5 %; NUCLEATED RED BLOOD CELLS AUTO 0.1 /100WBC; RED BLOOD COUNT 3.83 10^6/uL (4.20-5.40); UNCORRECTED WHITE BLOOD COUNT 5.2 x10^3/uL; WHITE BLOOD COUNT 5.2 x10^3/uL (4.8-10.8)
[2016-09-13 12:11] LABS: ALBUMIN/GLOBULIN RATIO 0.7 (1.0-2.2); BILIRUBIN,TOTAL 0.3 mg/dL (0.2-1.0); CALCIUM 8.5 mg/dL (8.5-10.3); CREATININE 0.4 mg/dL (0.4-1.0); POTASSIUM 4.5 mmol/L (3.5-5.0); TOTAL PROTEIN 6.2 g/dL (6.7-8.2)
[2016-09-13 12:32] LABS: PLATELET ESTIMATE, MANUAL NORMAL (130-450,000) (NORMAL)
--- NOTE | 2016-09-13 13:10 | PROVIDER PROGRESS NOTE ---
Assessment/Plan - Problem List (1) Acute generalized abdominal pain Assessment/Plan: Since Felicitas Buenrostro was discharged details are in the transfer dictation. - Current Meds Current Meds: Current Medications Generic Name Dose Route Start Last Admin Trade Name Freq PRN Reason Stop Dose Admin Clonazepam 0.5 mg 09/12/16 22:00 09/13/16 05:55 Klonopin PO 0.5 mg TID SYLVIA Administration Heparin Sodium (Beef Lung) 30 - 50 unit 09/12/16 16:17 09/13/16 06:33 IVP 10/12/16 16:16 50 unit ONCE PRN Administration Central Line Protocol (<24 hr) Hydromorphone HCl 1 mg 09/12/16 16:15 09/13/16 12:24 Dilaudid Inj IVP 1 mg Q2HR PRN Administration Pain 8 to 10 Acetaminophen 100 mls @ 400 mls/hr 09/12/16 16:16 09/13/16 12:06 Ofirmev IV 400 mls/hr Q6HR PRN Administration PAIN Cefepime HCl 2 gm/ Sodium 100 mls @ 200 mls/hr 09/13/16 09:00 09/13/16 08:33 Chloride IV 200 mls/hr BID SYLVIA Administration Insulin Aspart 5 unit 09/12/16 17:00 09/13/16 11:43 Novolog SUBQ 5 unit TIDWM SYLVIA Administration Protocol Insulin Aspart 2 - 10 unit 09/12/16 17:00 09/13/16 11:43 Novolog SUBQ 6 unit 0800,1200,1700,2100 SYLVIA Administration Protocol Insulin Glargine 70 unit 09/12/16 21:00 09/12/16 21:03 Lantus Solostar SUBQ 70 unit QPM SYLVIA Administration Nicotine 1 patch 09/13/16 09:00 09/13/16 08:35 Nicoderm TOP 1 patch DAILY SYLVIA Administration Polyethylene Glycol 17 gm 09/13/16 09:00 09/13/16 08:23 Miralax PO 17 gm DAILY SYLVIA Administration Potassium Chloride 20 meq 09/12/16 17:00 09/13/16 08:35 K-Dur PO 20 meq QID SYLVIA Administration Pregabalin 75 mg 09/12/16 21:00 09/13/16 08:24 Lyrica PO 75 mg BID SYLVIA Administration Prochlorperazine Edisylate 10 mg 09/12/16 16:16 09/13/16 00:54 Compazine Inj IVP 10 mg Q6HR PRN Administration Nausea / Vomiting Senna 8.6 - 17.2 mg 09/13/16 09:00 09/13/16 08:23 Senokot PO 17.2 mg DAILY SYLVIA Administration Sodium Chloride 10 ml 09/12/16 16:15 09/13/16 12:24 Normal Saline Flush 0.9% IVP 30 ml PRN PRN Administration NEEDED PER PROVIDER ORDERS Sodium Chloride 10 ml 09/12/16 22:00 09/13/16 12:20 Normal Saline Flush 0.9% IVP 10 ml Q8HR SYLVIA Administration Sodium Chloride 20 ml 09/12/16 16:17 09/13/16 05:55 Normal Saline Flush 0.9% IVP 20 ml PRN PRN Administration After Blood Draw Zolpidem Tartrate 5 mg 09/12/16 16:17 09/12/16 21:55 Ambien PO 5 mg QPM PRN Administration Insomnia - Lab Result Fish Bone Diagrams: 09/13/16 11:50 09/13/16 11:50 - Additional Planning My Orders: My Active Orders 09/12/16 16:16 Acetaminophen 1,000 mg/100 ml [Ofirmev] 100 ml IV Q6HR 09/12/16 16:17 Heparin Flush 30 - 50 unit IVP ONCE PRN Sodium Chloride Flush 0.9% [Normal Saline Flush 0.9%] 20 ml IVP PRN PRN 09/12/16 16:18 Docusate Sodium 250Mg Capsule [Colace 250Mg Capsule] 250 - 500 mg PO DAILY PRN 09/12/16 17:00 Insulin Aspart [NovoLOG] 2 - 10 unit SUBQ 0800,1200,1700,2100 Potassium Chloride [K-Dur] 20 meq PO QID 09/12/16 21:00 Pregabalin [Lyrica] 75 mg PO BID 09/12/16 22:00 clonazePAM [KlonoPIN] 0.5 mg PO TID 09/13/16 09:00 Cefepime 2 gm Sodium Chloride 0.9% Minibag [Normal Saline 0.9% Minibag] 100 ml IV BID Nicotine 21 mg Patch [Nicoderm] 1 patch TOP DAILY Senna [Senokot] 8.6 - 17.2 mg PO DAILY 09/13/16 14:00 Ampicillin/Sulbactam [Unasyn] 3 gm Sodium Chloride 0.9% Minibag [Normal Saline 0.9% Minibag] 100 ml IV Q6HR 09/13/16 16:00 VANCOMYCIN TROUGH [CHEM] Timed 09/14/16 05:00 CBC - COMP BLD CT W/AUTO DIFF [HEME] DAILYLAB COMPREHENSIVE METABOLIC PANEL [CHEM] DAILYLAB CRP - C-REACTIVE PROTEIN [CHEM] DAILYLAB ESR- ERYTHROCYTE SEDIMENT RATE [HEME] DAILYLAB 09/15/16 05:00 CBC - COMP BLD CT W/AUTO DIFF [HEME] DAILYLAB COMPREHENSIVE METABOLIC PANEL [CHEM] DAILYLAB 09/16/16 05:00 CBC - COMP BLD CT W/AUTO DIFF [HEME] DAILYLAB COMPREHENSIVE METABOLIC PANEL [CHEM] DAILYLAB Objective Vital Signs: Vital Signs - 24 hr 09/12/16 09/13/16 09/13/16 15:54 00:05 10:25 Temperature 36.4 C L 37.2 C 37.1 C Heart Rate [ 115 H 125 H 115 H Brachial] Respiratory 20 18 16 Rate Blood Pressure 114/79 [Left Brachial artery] Blood Pressure 101/67 123/80 [Right Brachial artery] O2 Saturation 93 94 96 Oxygen O2 Source Room air I&O (Last 24 Hrs): Intake and Output Totals x24h 09/11/16 09/12/16 09/13/16 23:59 23:59 23:59 Intake Total 1680 2240 1966 Output Total 4500 1050 Balance -2820 1190 1966 - Results Results: Laboratory Results WBC 5.2 x10^3/uL (4.8-10.8) 09/13/16 11:50 RBC 3.83 10^6/uL (4.20-5.40) L 09/13/16 11:50 Hgb 10.0 g/dL (12.0-16.0) L 09/13/16 11:50 Hct 30.3 % (37.0-47.0) L 09/13/16 11:50 MCV 79.2 fL (81.0-99.0) L 09/13/16 11:50 MCH 26.1 pg (27.0-31.0) L 09/13/16 11:50 MCHC 32.9 g/dL (32.0-36.0) 09/13/16 11:50 RDW 16.0 % (12.0-15.0) H 09/13/16 11:50 Plt Count 161 10^3/uL (130-450) 09/13/16 11:50 MPV 8.8 fL (7.9-10.8) 09/13/16 11:50 Neut # 2.8 10^3/uL (1.5-6.6) 09/13/16 11:50 Lymph # 1.9 10^3/uL (1.5-3.5) 09/13/16 11:50 [place] # 0.4 10^3/uL (0.0-1.0) 09/13/16 11:50 Eos # 0.1 10^3/uL (0.0-0.7) 09/13/16 11:50 Baso # 0.1 10^3/uL (0.0-0.1) 09/13/16 11:50 Absolute Nucleated RBC 0.00 x10^3/uL 09/13/16 11:50 Nucleated RBCs 0.1 /100WBC 09/13/16 11:50 Platelet Estimate NORMAL (130-450,000) (NORMAL) 09/13/16 11:50 RBC Morph Micro Appear NORMAL APPEARANCE (NORMAL) 09/13/16 11:50 PT 9.7 secs (9.9-12.6) L 09/07/16 07:35 INR 0.9 (0.8-1.2) 09/07/16 07:35 VBG pH 7.405 (7.31-7.41) 09/08/16 06:32 VBG pCO2 42.0 mmHg (41-51) 09/08/16 06:32 VBG pO2 72.5 mmHg (25-47) H 09/08/16 06:32 VBG HCO3 25.7 mmol/L (23-28) 09/08/16 06:32 VBG Total CO2 27.0 mmol/L (24-29) 09/08/16 06:32 VBG O2 Saturation 94.8 % (60-80) H 09/08/16 06:32 VBG Base Excess 0.9 mmol/L (-2 - +2) 09/08/16 06:32 Sodium 132 mmol/L (135-145) L 09/13/16 11:50 Potassium 4.5 mmol/L (3.5-5.0) 09/13/16 11:50 Chloride 93 mmol/L (101-111) L 09/13/16 11:50 Carbon Dioxide 29 mmol/L (21-32) 09/13/16 11:50 Anion Gap 10.0 (6-13) 09/13/16 11:50 BUN 9 mg/dL (6-20) 09/13/16 11:50 Creatinine 0.4 mg/dL (0.4-1.0) 09/13/16 11:50 Estimated GFR (MDRD) 182 (>89) 09/13/16 11:50 Glucose 291 mg/dL (70-100) H 09/13/16 11:50 POC Whole Bld Glucose 275 mg/dL (70 - 100) H 09/13/16 11:33 Glycated Hemoglobin 13.1 % (4.6-6.2) H 09/07/16 07:35 Estim Average Glucose 329 (70-100) H 09/07/16 07:35 Calcium 8.5 mg/dL (8.5-10.3) 09/13/16 11:50 Total Bilirubin 0.3 mg/dL (0.2-1.0) 09/13/16 11:50 AST 38 IU/L (10-42) 09/13/16 11:50 ALT 90 IU/L (10-60) H 09/13/16 11:50 Alkaline Phosphatase 506 IU/L (42-121) H 09/13/16 11:50 Total Protein 6.2 g/dL (6.7-8.2) L 09/13/16 11:50 Albumin 2.5 g/dL (3.2-5.5) L 09/13/16 11:50 Globulin 3.7 g/dL (2.1-4.2) 09/13/16 11:50 Albumin/Globulin Ratio 0.7 (1.0-2.2) L 09/13/16 11:50 Amylase 36 U/L (28-100) 09/13/16 06:05 Lipase < 10 U/L (22-51) L 09/13/16 06:05 Carcinoembryonic Ag 4.8 ng/mL 09/08/16 07:35 CA 19-9 Antigen 54 U/mL (<34) H 09/08/16 07:35 Serum HCG, Qual NEGATIVE 09/07/16 07:35 Urine Color YELLOW 09/09/16 Unknown Urine Clarity CLEAR (CLEAR) 09/09/16 Unknown Urine pH 6.5 PH (5.0-7.5) 09/09/16 Unknown Ur Specific [place] 1.010 (1.002-1.030) 09/09/16 Unknown Urine Protein NEGATIVE mg/dL (NEGATIVE) 09/09/16 Unknown Urine Glucose (UA) NEGATIVE mg/dL (NEGATIVE) 09/09/16 Unknown Urine Ketones NEGATIVE mg/dL (NEGATIVE) 09/09/16 Unknown Urine Occult Blood NEGATIVE (NEGATIVE) 09/09/16 Unknown Urine Nitrite NEGATIVE (NEGATIVE) 09/09/16 Unknown Urine Bilirubin NEGATIVE (NEGATIVE) 09/09/16 Unknown Urine Urobilinogen 4 E.U./dL (NORMAL) H 09/09/16 Unknown Ur Leukocyte Esterase NEGATIVE (NEGATIVE) 09/09/16 Unknown Urine RBC None Seen /HPF (0-5) 09/09/16 Unknown Urine WBC 0-3 /HPF (0-5) 09/09/16 Unknown Ur Squamous Epith Cells MANY Squamous (<= Few) H 09/09/16 Unknown Urine Bacteria Moderate /HPF (None Seen) H 09/09/16 Unknown Urine Culture Comments NOT INDICATED 09/09/16 Unknown Last Dose Date 09/10/16 09/12/16 15:55 Last Dose Time 1700 09/12/16 15:55 Vancomycin Trough 5.3 ug/mL (5.0-15.0) 09/12/16 15:55 Urine Opiates Screen POSITIVE (NEGATIVE) H 09/08/16 00:10 Ur Oxycodone Screen NEGATIVE (NEGATIVE) 09/08/16 00:10 Urine Methadone Screen NEGATIVE (NEGATIVE) 09/08/16 00:10 Ur Propoxyphene Screen NEGATIVE (NEGATIVE) 09/08/16 00:10 Ur Barbiturates Screen NEGATIVE (NEGATIVE) 09/08/16 00:10 Ur Tricyclics Screen NEGATIVE (NEGATIVE) 09/08/16 00:10 Ur Phencyclidine Scrn NEGATIVE (NEGATIVE) 09/08/16 00:10 Ur Amphetamine Screen POSITIVE (NEGATIVE) H 09/08/16 00:10 U Methamphetamines Scrn POSITIVE (NEGATIVE) H 09/08/16 00:10 U Benzodiazepines Scrn NEGATIVE (NEGATIVE) 09/08/16 00:10 Urine Cocaine Screen NEGATIVE (NEGATIVE) 09/08/16 00:10 U Cannabinoids Screen NEGATIVE (NEGATIVE) 09/08/16 00:10 Serum Ketones NEGATIVE (NEGATIVE) 09/07/16 07:35 CMV DNA Qnt Source abdomen (()) 09/09/16 11:19 CMV Qnt PCR IU/mL <200 IU/mL (()) 09/09/16 11:19 CMV Qnt PCR log IU/mL <2.30 Log IU/mL (()) 09/09/16 11:19 HIV 1&2 Ag/Ab, 4th Gen NON-REACTIVE (NON-REACTIVE) 09/09/16 11:19 - Procedures Procedures: Procedures INSERT INFUSION DEV IN R INT JUGULAR VEIN, PERC (04/21/16) INSERTION OF INFUSION DEV INTO SUP VENA CAVA, PERC APPROACH (03/27/16) INSERTION OF INFUSION DEVICE INTO R ATRIUM, PERC APPROACH (12/04/15) TRANSFUSE NONAUT RED BLOOD CELLS IN PERIPH VEIN, PERC (04/21/16) ULTRASONOGRAPHY OF RIGHT JUGULAR VEINS, GUIDANCE (04/21/16)
[2016-09-13] MEDS: AMPICILLIN/SULBACTAM 3 GM in SODIUM CHLORIDE 0.9% MINIBAG 100 ML IV SCH ×2 (14:30→17:46)
[2016-09-13 15:30] VITALS: BP 128/71
[2016-09-13] MEDS ORDERED: LORazepam 2 MG/ML SYRINGE IVP SCH (19:00)
--- NOTE | 2016-09-15 19:38 | DISCHARGE SUMMARY ---
DATE OF ADMISSION: 09/07/2016 DATE OF DISCHARGE: 09/13/2016 PRIMARY CARE PROVIDER: None. ADMISSION DIAGNOSES: 1. Diffuse abdominal pain with nausea and vomiting. 2. Abnormal CT indicating abnormal pancreas. 3. Type 1 diabetes uncontrolled on fci insulin with complications. 4. Polysubstance abuse history. 5. Homeless status. TRANSFER DIAGNOSES: 1. Abdominal adenopathy including prominent retroperitoneal mesenteric root lymph nodes which appear edematous and there is adjacent mesenteric fat stranding. There is a post portacaval lymphadenopathy measuring 1.5 cm. Differential includes mesenteric adenitis and panniculitis, metastases lymphoma is on the differential and followup is recommended. Also portacaval lymphadenopathy. 2. Bacteremia with Strep pyogenes with continued fevers the past 72 hours. 3. Uncontrolled diabetes type 1. 4. Abdominal pain diffuse, recurrent, uncertain etiology. SPECIAL PROCEDURES: Echocardiogram which showed: 1. Moderate concentric left ventricular hypertrophy. 2. Left ventricular hyperdynamic ejection fraction of greater than 35%. 3. Moderately abnormal right heart pressures. She had an abdominal pelvis CT x2, Impression: 1. Chronic lung disease. 2. Pancreatic arterial phase sequence nondiagnostic. 3. Although no confident visualization of primary pancreatic lesion, location of extensive edema, oliva nopathy, so raised the possibly of pancreatic neoplasm. Lymphoma less likely. Adenocarcinoma of the s mall bowel also in the differential. 4. Small amount of ascites. The MRI/MRCP impression: 1. Mild intra and extra hepatic bile duct dilatation status post cholecystectomy. No evidence for cho ledocholithiasis. There is a deep periportal edema. 2. Multiple prominent retroperitoneal and mesenteric lymph nodes which appear edematous and appear to be adjacent mesenteric fat stranding. Acute inflammation could be present here. It could be mesenter ic adenitis and panniculitis. Metastases/lymphoma is in the differential and followup is recommended. Portacaval lymphadenopathy. 3. Splenomegaly, hepatomegaly. 4. Diffuse decreased T2 signal in the liver. On the in and out phases there was lower intensity on th e inphase as compared to the out phase image. These findings can be seen with primary hematochromatos is, correlating clinically. 5. Trace perihepatic and perisplenic ascites. 6. Motion artifact limited, otherwise as above. Pelvic ultrasound is normal. The patient on the morning of 09/10 had a fever of 39.5 and continued fevers through the last night t hat she was in the hospital. She was started on antibiotics and found to have a positive blood cultur e for Strep pyogenes from a blood culture drawn on 09/09, the patient on 09/10 had subsequent blood c ultures because of recurrent fevers and these were negative after 2 days. The patient had difficulty controlling the nausea initially and it made her pain continuously. The patient had the echocardiogra m because of the possibility of endocarditis infected thrombus. The patient also had the ultrasound o f the pelvis done and was reported as being more in the pelvis on the left side. The patient's histor y is not consistent. The patient's surgical consult was amended and stated that endoscopic ultrasound guided biopsy was re commended rather than laparoscopic exam. This equipment and expertise is not available at this hospit al. [facility] gastroenterology was consulted and declined to accept the patient. The same oc curred with [facility] in [place]. Then on 09/13 the GI telephone lines repairer physician Christine silva ed to see the patient and the patient was accepted by the hospitalist, Octavia Benavides, and bed was [facility] in the evening and the patient was transferred. At the time of transfer the patient's vital signs 36.5, 102, 128, 20, 95% room air saturation. CONSTITUTIONAL: Appears chronically ill female. EYES: EOMs within normal limits. PERRLA, nonicteric. MOUTH AND THROAT: Moist mucous membranes. No other pathology. NECK: No lymphadenopathy. No thyromegaly. No other lymphadenopathy. CHEST: Sinus tachycardia, no murmurs, rubs, clicks. LUNGS: Clear, good air movement. ABDOMEN: Basically tender, no rebound. EXTREMITIES: No edema. NEURO: Cognitive intact. Cranial nerves intact. Motor intact. LABORATORY DATA: From last day she had a white count of 5.2, 10 and 30 hemoglobin and hematocrit, art telets are 161, sodium 132, potassium 4.5, chloride 93, CO2 29, BUN 9, creatinine 0.4, blood sugars 2 91 (it is patient's birthday on this day). Calcium 8.5, the patient's AST is normal, however, the ALT is 90 and the alkaline phosphatase is up to 506 and was normal on admission. The patient's albumin i s 2.5. The patient's lipase is less than 10, amylase is 36. The patient had her antibiotics changed when she had continued fevers from vancomycin to Unasyn and t hen cefepime was added. ALLERGIES: 1. CODEINE. 2. HYDROCODONE. 3. MILK. 4. NITROFURANTOIN. 5. PAPER TAPE. TIME SPENT DISCHARGE PLANNING with case management, referrals hospitals, discharge planning, nursing, and multiple interviews with the patient on the day of discharge is 60 minutes. JOB #: [id number] EXT JOB #:[id number]
== END 2016-09-13 19:00 | disposition short-term general hospital (02) | DRG 815 ==
LOC: EDUNIT# → ED 07:15 → MS 21:15 → UNDODISIN 09-12 14:00
PROVIDERS: ADMIT Specialist; ATTEND Internal Medicine
PROC: 02HV33Z Insertion of Infusion Device into Superior Vena Cava, Percutaneous Approach (ICD-10-PCS; principal; 2016-09-11)
DX: R59.0 Localized enlarged lymph nodes (principal); R78.81 Bacteremia; R50.9 Fever, unspecified; E10.65 Type 1 diabetes mellitus with hyperglycemia; R10.84 Generalized abdominal pain; E86.0 Dehydration; E10.42 Type 1 diabetes mellitus with diabetic polyneuropathy; E10.51 Type 1 diabetes mellitus with diabetic peripheral angiopathy without gangrene; E10.22 Type 1 diabetes mellitus with diabetic chronic kidney disease; N18.9 Chronic kidney disease, unspecified; I10 Essential (primary) hypertension; G89.4 Chronic pain syndrome; M79.7 Fibromyalgia; R16.2 Hepatomegaly with splenomegaly, not elsewhere classified; R41.3 Other amnesia; R00.0 Tachycardia, unspecified; F17.200 Nicotine dependence, unspecified, uncomplicated; F31.9 Bipolar disorder, unspecified; F41.0 Panic disorder [episodic paroxysmal anxiety]; F11.10 Opioid abuse, uncomplicated; F15.10 Other stimulant abuse, uncomplicated; I27.2 Other secondary pulmonary hypertension; I07.1 Rheumatic tricuspid insufficiency; I25.2 Old myocardial infarction; Z90.49 Acquired absence of other specified parts of digestive tract; Z79.4 Long term (current) use of insulin; Z91.14 Patient's other noncompliance with medication regimen; Z59.0 Homelessness
CPT/HCPCS: 36415; 71010; 71020; 74176; 74177; 74183; 76856; 80048; 80053; 80306; 81001; 82009; 82150; 82378; 82803; 83036; 83690; 84703; 85025; 85610; 86301; 86665; 87040; 87077; 87086; 87389; 87497; 93306; 96361; 96365; 96372; 96375; 96376; 99284; 99285

== ENCOUNTER 2016-09-21 17:52 | Outpatient (CLI) | payer MEDICAID | END 2016-09-21 17:53 | disposition critical access hospital (66) | LOC: EMS 17:52 | PROVIDERS: ATTEND Surgery | DX: R10.12 Left upper quadrant pain (principal); R11.2 Nausea with vomiting, unspecified; R73.09 Other abnormal glucose | CPT/HCPCS: A0425; A0427 ==

== ENCOUNTER 2016-09-21 18:10 | Emergency (ER) | payer MEDICAID ==
[2016-09-21] MEDS ORDERED: HYDROmorphone 1 MG/ML SYRINGE IVP STA ×3 (18:15→23:12)
[2016-09-21] MEDS ORDERED: SODIUM CHLORIDE 0.9% 1,000 ML IV ONE (18:15)
[2016-09-21] MEDS ORDERED: PROMETHAZINE 25 MG/1 ML VIAL IM STA (18:16)
--- NOTE | 2016-09-21 18:18 | ED Physician Documentation ---
PD HPI ABD PAIN - Stated complaint Stated Complaint: ABD PAIN - Chief complaint Chief Complaint: Abd Pain - History obtained from History obtained from: Patient, EMS - History of Present Illness Timing - onset: Other (This is a 36-year-old woman with history of brittle diabetes and polysubstance abuse who was admitted here on the of last month with abdominal pain and a CT showing a concern for pancreatic lesion, she had a follow-up MRI that was more concerning for lymphoma, during that stay she had bacteremia with strep pyogenes and was eventually transferred to the [facility]. I will try to get the discharge summary. Per her description there was a plan to do a biopsy of 1 of her lymph nodes but because of the bacteremia it was decided to treat her with antibiotics and discharge her and do this at a later date. She was on high-dose pain medication, 6 mg of hydromorphone every 4 hours which she abruptly stops today because she ran out and now has severe abdominal pain and her blood sugars reading high. She did take her Lantus today but has not made it to the pharmacy to fill her NovoLog. 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 : None HEENT: None Psych: Depression, Anxiety, Panic attacks Musculoskeletal: Fibromyalgia Derm: None - Past Surgical History Past Surgical History: Yes General: Cholecystectomy HEENT: Tonsil/Adenoidectomy - Present Medications Home Medications: Ambulatory Orders Medication Instructions Recorded Confirmed Insulin Glargine,Hum.rec.anlog 70 unit SUBQ BID #2 vial 07/09/16 09/21/16 [Lantus] Dicyclomine [Bentyl] 10 mg PO Q8H PRN #20 capsule 09/07/16 Ondansetron Odt [Zofran] 4 mg TL Q6H PRN #10 tablet 09/07/16 09/21/16 Insulin Aspart [Novolog Flexpen] 20 unit SQ TIDWM 09/21/16 09/21/16 Promethazine [Phenergan] 25 - 50 mg PO Q6H PRN #15 tab 09/21/16 - Allergies Allergies/Adverse Reactions: Allergies Allergy/AdvReac Type Severity Reaction Status Date / Time codeine Allergy Hives Verified 08/21/16 09:07 hydrocodone Allergy Hives Verified 08/21/16 09:07 milk AdvReac Cramps Verified 08/21/16 09:07 nitrofurantoin AdvReac Headache Verified 08/21/16 09:07 [From Macrobid] PAPER TAPE AdvReac Unknown Uncoded 08/21/16 09:07 - Social History Does the pt smoke?: Yes Smoking Status: Current every day smoker Does the pt drink ETOH?: No Does the pt have substance abuse?: No - Immunizations Immunizations are current?: Yes - POLST Patient has POLST: No PD ED PE NORMAL - Vitals Vital signs reviewed: Yes - General General: Alert and oriented X 3, Other (Hypervigilant and writhing in pain, appears to be withdrawing with dilated pupils.) - Neck Neck: Supple, no meningeal sign, No bony TTP - Cardiac Cardiac: Other (Tachycardic no murmur) - Abdomen Abdomen: Soft, Non tender - Neuro Neuro: Alert and oriented X 3, No motor deficit, No sensory deficit, Normal speech Results - Vitals Vitals: Vital Signs - 24 hr 09/21/16 09/21/16 09/21/16 18:11 19:02 19:50 Temperature 36.8 C Heart Rate 120 H 118 H 117 H Respiratory 22 20 16 Rate Blood Pressure 117/63 128/82 H 136/87 H O2 Saturation 100 97 99 09/21/16 09/21/16 09/21/16 20:53 21:22 23:07 Temperature 36.2 C L Heart Rate 105 H 102 H 112 H Respiratory 18 18 28 H Rate Blood Pressure 137/100 H 147/98 H 129/71 O2 Saturation 100 97 95 Oxygen O2 Source [Without Activity] Room air O2 Source Room air - Labs Labs: Laboratory Tests 09/21/16 09/21/16 09/21/16 18:20 18:20 18:30 WBC 5.6 RBC 4.28 Hgb 10.9 L Hct 35.4 L MCV 82.7 MCH 25.4 L MCHC 30.8 L RDW 16.6 H Plt Count 700 H MPV 7.8 L Neut # 2.5 Lymph # 2.6 [place] # 0.5 Eos # 0.0 Baso # 0.1 Absolute Nucleated RBC 0.00 Nucleated RBCs 0.0 Sodium Potassium Chloride Carbon Dioxide Anion Gap BUN Creatinine Estimated GFR (MDRD) Glucose Calcium Total Bilirubin AST ALT Alkaline Phosphatase Total Protein Albumin Globulin Albumin/Globulin Ratio Lipase Urine Color YELLOW Urine Clarity CLEAR Urine pH >=9.0 H Ur Specific [place] <=1.005 Urine Protein NEGATIVE Urine Glucose (UA) >=1000 H Urine Ketones NEGATIVE Urine Occult Blood TRACE-LYSE Urine Nitrite NEGATIVE Urine Bilirubin NEGATIVE Urine Urobilinogen 0.2 (NORMAL) Ur Leukocyte Esterase NEGATIVE Ur Microscopic Review NOT INDICATED Urine Culture Comments NOT INDICATED Urine HCG, Qual NEGATIVE Urine Opiates Screen NEGATIVE Ur Oxycodone Screen NEGATIVE Urine Methadone Screen NEGATIVE Ur Propoxyphene Screen NEGATIVE Ur Barbiturates Screen NEGATIVE Ur Tricyclics Screen NEGATIVE Ur Phencyclidine Scrn NEGATIVE Ur Amphetamine Screen NEGATIVE U Methamphetamines Scrn POSITIVE H U Benzodiazepines Scrn NEGATIVE Urine Cocaine Screen NEGATIVE U Cannabinoids Screen NEGATIVE 09/21/16 18:30 WBC RBC Hgb Hct MCV MCH MCHC RDW Plt Count MPV Neut # Lymph # [place] # Eos # Baso # Absolute Nucleated RBC Nucleated RBCs Sodium 130 L Potassium 5.2 H Chloride 91 L Carbon Dioxide 26 Anion Gap 13.0 BUN 16 Creatinine 0.7 Estimated GFR (MDRD) 95 Glucose 759 H* Calcium 9.9 Total Bilirubin 0.6 AST 28 ALT 62 H Alkaline Phosphatase 777 H Total Protein 8.2 Albumin 3.6 Globulin 4.6 H Albumin/Globulin Ratio 0.8 L Lipase 30 Urine Color Urine Clarity Urine pH Ur Specific [place] Urine Protein Urine Glucose (UA) Urine Ketones Urine Occult Blood Urine Nitrite Urine Bilirubin Urine Urobilinogen Ur Leukocyte Esterase Ur Microscopic Review Urine Culture Comments Urine HCG, Qual Urine Opiates Screen Ur Oxycodone Screen Urine Methadone Screen Ur Propoxyphene Screen Ur Barbiturates Screen Ur Tricyclics Screen Ur Phencyclidine Scrn Ur Amphetamine Screen U Methamphetamines Scrn U Benzodiazepines Scrn Urine Cocaine Screen U Cannabinoids Screen PD MEDICAL DECISION MAKING - ED course Complexity details: reviewed old records (Discharge summary from the [facility] was received and reviewed, dated 09/18/2016, they were not concerned with lymphoma based on the appearance of her MRI, but did recommend interval imaging in 2-3 months to confirm resolution of the mesenteric lymphadenopathy that was thought to be reactive. They started on her on Lyrica and hyoscyamine and was started on an opioid taper which we she was discharged on.) ED course: 36-year-old woman presents with narcotic withdrawal and chronic abdominal pain of unclear etiology status post recent workup with retroperitoneal adenopathy and increasing alkaline phosphatase which needs further workup as an outpatient as well. Her blood sugars uncontrolled. She was given divided doses of IV fluids and IV insulin with good improvement in her blood sugar, and improvement in her symptoms. She was counseled at length that she needs to stop Misusing her narcotics and to follow-up with her primary care physician for primary medical management. Departure - Departure Disposition: 01 Home, Self Care Clinical Impression: Methamphetamine abuse, episodic, Narcotic withdrawal, Hyperglycemia Diabetes type 1, uncontrolled Qualifiers: Diabetes mellitus complication status: with unspecified complications Qualified Code(s): E10.8 - Type 1 diabetes mellitus with unspecified complications Condition: Good Record reviewed to determine appropriate education?: Yes Instructions: ED Withdrawal Narcotic Prescriptions: Promethazine [Phenergan] 25 - 50 mg PO Q6H PRN #15 tab PRN Reason: Nausea / Vomiting Comments: You need to follow up with your primary care physician for pain management and primary diabetes management. The discharge summary from the [facility] recommended a repeat MRI of your abdomen in 2 months. Your blood pressure was elevated today on check into the emergency department. This does not mean that you have hypertension, it is a common phenomenon to come to the emergency department and have elevated blood pressure. I recommend that she see her primary care physician within the week to have it rechecked when you are feeling better. Discharge Date/Time: 09/21/16 23:53
[2016-09-21] MEDS ORDERED: HYDROmorphone 1 MG/ML SYRINGE ONE ×3 (18:21→23:19)
[2016-09-21] MEDS ORDERED: PROMETHAZINE 25 MG/1 ML VIAL ONE (18:22)
[2016-09-21 18:40] LABS: BILIRUBIN,URINE NEGATIVE (NEGATIVE); PH,URINE >=9.0 PH (5.0-7.5)
[2016-09-21 18:43] LABS: HCG UR QUAL NEGATIVE
[2016-09-21 18:44] LABS: UA CHARGE (STRIP ONLY) YES; UR CULTURE IF IND NOT INDICATED
[2016-09-21 18:48] LABS: BASOPHILS # (AUTO) 0.1 10^3/uL (0.0-0.1); BASOPHILS % (AUTO) 1.3 %; EOSINOPHILS % (AUTO) 0.5 %; HCT - HEMATOCRIT 35.4 % (37.0-47.0); HGB - HEMOGLOBIN 10.9 g/dL (12.0-16.0); LYMPHOCYTES # (AUTO) 2.6 10^3/uL (1.5-3.5); LYMPHOCYTES % (AUTO) 46.2 %; MEAN CORPUSCULAR HEMOGLOBIN 25.4 pg (27.0-31.0); MEAN CORPUSCULAR HGB CONC 30.8 g/dL (32.0-36.0); MEAN CORPUSCULAR VOLUME 82.7 fL (81.0-99.0); MEAN PLATELET VOLUME 7.8 fL (7.9-10.8); MONOCYTES # (AUTO) 0.5 10^3/uL (0.0-1.0); MONOCYTES % (AUTO) 8.2 %; NEUTROPHILS # (AUTO) 2.5 10^3/uL (1.5-6.6); NEUTROPHILS % (AUTO) 43.8 %; RED BLOOD COUNT 4.28 10^6/uL (4.20-5.40); RED CELL DISTRIBUTION WIDTH 16.6 % (12.0-15.0); UNCORRECTED WHITE BLOOD COUNT 5.6 x10^3/uL; WHITE BLOOD COUNT 5.6 x10^3/uL (4.8-10.8)
[2016-09-21 18:58] LABS: ALBUMIN/GLOBULIN RATIO 0.8 (1.0-2.2); BILIRUBIN,TOTAL 0.6 mg/dL (0.2-1.0); CALCIUM 9.9 mg/dL (8.5-10.3); CREATININE 0.7 mg/dL (0.4-1.0); POTASSIUM 5.2 mmol/L (3.5-5.0); TOTAL PROTEIN 8.2 g/dL (6.7-8.2)
[2016-09-21] MEDS ORDERED: INSULIN REGULAR HUMAN 100 UNIT/1 ML 10 ML MDV IVP STA ×2 (19:00→20:35)
[2016-09-21] MEDS ORDERED: INSULIN REGULAR HUMAN 100 UNIT/1 ML 10 ML MDV ONE ×3 (19:09→20:53)
[2016-09-21] MEDS ORDERED: ACETAMINOPHEN 1,000 MG/100 ML 100 ML IV STA (19:37)
[2016-09-21] MEDS ORDERED: ACETAMINOPHEN 1,000 MG/100 ML 100 ML IV ONE (19:44)
[2016-09-21] MEDS ORDERED: SODIUM CHLORIDE FLUSH 0.9% 10 ML SYRINGE IVP ONE (20:43)
[2016-09-21] MEDS ORDERED: INSULIN ASPART 100 UNIT/1 ML 10 ML MDV SUBQ STA (22:10)
[2016-09-21] MEDS ORDERED: INSULIN ASPART 100 UNIT/1 ML 10 ML MDV SUBQ ONE (22:55)
[2016-09-21 23:08] VITALS: BP 129/71
[2016-09-21] MEDS ORDERED: oxyCODONE/ACET 5/325 Prepack 4 PO STA (23:12)
[2016-09-21] MEDS ORDERED: ONDANSETRON 4 MG/2 ML VIAL IVP STA (23:19)
[2016-09-21] MEDS ORDERED: ONDANSETRON ODT 4 MG Prepack 2 TL STA (23:19)
[2016-09-21] MEDS ORDERED: oxyCODONE/ACET 5/325 Prepack 4 PO ONE (23:20)
[2016-09-21] MEDS ORDERED: ONDANSETRON 4 MG/2 ML VIAL ONE (23:25)
[2016-09-21] MEDS ORDERED: ONDANSETRON ODT 4 MG Prepack 2 TL ONE (23:26)
== END 2016-09-21 23:53 | disposition home or self-care (01) ==
LOC: ED 18:10
DX: E10.65 Type 1 diabetes mellitus with hyperglycemia (principal); E10.42 Type 1 diabetes mellitus with diabetic polyneuropathy; Z79.4 Long term (current) use of insulin; F11.23 Opioid dependence with withdrawal; F15.10 Other stimulant abuse, uncomplicated; I10 Essential (primary) hypertension; E78.00 Pure hypercholesterolemia, unspecified; I73.9 Peripheral vascular disease, unspecified; I25.2 Old myocardial infarction; M79.7 Fibromyalgia; F17.200 Nicotine dependence, unspecified, uncomplicated
CPT/HCPCS: 36415; 80053; 80306; 81003; 81025; 83690; 85025; 96365; 96372; 96375; 96376; 99284; J0131; J1170; J1815; 81001; 87086

== ENCOUNTER 2016-09-22 11:10 | Outpatient (CLI) | payer MEDICAID | END 2016-09-22 11:11 | disposition critical access hospital (66) | LOC: EMS 11:10 | PROVIDERS: ATTEND Surgery | DX: R10.9 Unspecified abdominal pain (principal); R11.11 Vomiting without nausea | CPT/HCPCS: A0425; A0427 ==

== ENCOUNTER 2016-09-22 11:28 | Emergency (ER) | payer MEDICAID ==
--- NOTE | 2016-09-22 12:04 | ED Physician Documentation ---
PD HPI ABD PAIN - Stated complaint Stated Complaint: ABD PX - Chief complaint Chief Complaint: Abd Pain - History obtained from History obtained from: Patient, EMS - History of Present Illness Quality: Pain - Additional information Additional information: The patient is a 36-year-old homeless female with a history of pancreatitis and type 1 diabetes with frequent hospitalizations here for DKA, who presents via ambulance complaining of abdominal pain with vomiting. She was hospitalized here 2 weeks ago with hyperglycemia and intractable vomiting. She was transferred to [facility] for workup of abnormal appearing pancreas on MRI. She was discharged from [facility] 4 days ago after it was determined the lymph node enlargement in the pancreatic area was most likely reactive lymph nodes and not lymphoma. She was seen in the emergency department here yesterday with abdominal pain and it was thought to be caused by narcotic withdrawal. She had been discharged from [facility] with a Dilaudid taper, but the patient ran out of the medication 2 days later. She denies fever, diarrhea, or dysuria. Her last menstrual period was 2 months ago , but she states she is irregular. Review of Systems Constitutional: denies: Fever Ears: denies: Tinnitus/ringing Nose: denies: Congestion Throat: denies: Sore throat Cardiac: denies: Chest pain / pressure Respiratory: denies: Dyspnea, Cough GI: reports: Abdominal Pain, Nausea, Vomiting. denies: Diarrhea : reports: LMP (2 months ago). 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 : None HEENT: None Psych: Depression, Anxiety, Panic attacks Musculoskeletal: Fibromyalgia Derm: None - Past Surgical History Past Surgical History: Yes General: Cholecystectomy HEENT: Tonsil/Adenoidectomy - Present Medications Home Medications: Ambulatory Orders Medication Instructions Recorded Confirmed Insulin Glargine,Hum.rec.anlog 70 unit SUBQ BID #2 vial 07/09/16 09/22/16 [Lantus] Insulin Aspart [Novolog Flexpen] 20 unit SQ TIDWM 09/21/16 09/22/16 Promethazine [Phenergan] 25 - 50 mg PO Q6H PRN #15 tab 09/21/16 09/22/16 HYDROmorphone [Dilaudid] 2 mg PO Q4-6H #12 tablet 09/23/16 Promethazine [Phenergan] 25 - 50 mg PO Q6H PRN #10 tab 09/23/16 - Allergies Allergies/Adverse Reactions: Allergies Allergy/AdvReac Type Severity Reaction Status Date / Time codeine Allergy Hives Verified 09/22/16 11:45 hydrocodone Allergy Hives Verified 09/22/16 11:45 milk AdvReac Cramps Verified 09/22/16 11:45 nitrofurantoin AdvReac Headache Verified 09/22/16 11:45 [From Macrobid] PAPER TAPE AdvReac Unknown Uncoded 08/21/16 09:07 - Social History Does the pt smoke?: Yes Smoking Status: Current every day smoker Does the pt drink ETOH?: No Does the pt have substance abuse?: No - Immunizations Immunizations are current?: Yes - POLST Patient has POLST: No PD ED PE NORMAL - Vitals Vital signs reviewed: Yes (Mild hypertension initially) - General General: Alert and oriented X 3, Well developed/nourished - HEENT HEENT: Atraumatic, EOMI, Pharynx benign - Neck Neck: Supple, no meningeal sign, No adenopathy, No JVD - Cardiac Cardiac: RRR, No murmur - Respiratory Respiratory: No respiratory distress, Clear bilaterally - Abdomen Abdomen: Normal bowel sounds, Soft, Non distended, Other (Diffuse tenderness to palpation, more in the right upper quadrant than elsewhere, without rebound or guarding.) - Back Back: No CVA TTP - Derm Derm: No rash - Extremities Extremities: No calf tenderness / cord - Neuro Neuro: Alert and oriented X 3, No motor deficit, Normal speech Results - Vitals Vitals: Vital Signs - 24 hr 09/22/16 09/22/16 09/22/16 11:28 13:00 14:00 Temperature 37.2 C Heart Rate 102 H 80 88 Respiratory 20 18 20 Rate Blood Pressure 143/95 H 131/86 H 144/90 H O2 Saturation 98 96 09/22/16 09/22/16 09/22/16 15:44 17:00 20:53 Temperature Heart Rate 102 H 90 101 H Respiratory 18 20 19 Rate Blood Pressure 100/50 L 138/90 H 123/82 H O2 Saturation 98 97 100 Oxygen O2 Source [Without Activity] Room air O2 Source Room air - Labs Labs: Laboratory Tests 09/22/16 09/22/16 09/22/16 12:10 12:53 12:53 WBC 6.6 RBC 3.84 L Hgb 9.7 L Hct 30.5 L MCV 79.4 L MCH 25.4 L MCHC 31.9 L RDW 16.5 H Plt Count 609 H MPV 7.3 L Neut # 2.8 Lymph # 3.2 [place] # 0.5 Eos # 0.1 Baso # 0.0 Absolute Nucleated RBC 0.00 Nucleated RBCs 0.0 Sodium 131 L Potassium 4.4 Chloride 97 L Carbon Dioxide 26 Anion Gap 8.0 BUN 17 Creatinine 0.5 Estimated GFR (MDRD) 140 Glucose 366 H Calcium 8.8 Total Bilirubin 0.6 AST 32 ALT 50 Alkaline Phosphatase 563 H Total Protein 7.1 Albumin 3.0 L Globulin 4.1 Albumin/Globulin Ratio 0.7 L Lipase 30 Urine Color YELLOW Urine Clarity CLEAR Urine pH 7.0 Ur Specific [place] 1.010 Urine Protein NEGATIVE Urine Glucose (UA) >=1000 H Urine Ketones NEGATIVE Urine Occult Blood NEGATIVE Urine Nitrite NEGATIVE Urine Bilirubin NEGATIVE Urine Urobilinogen 0.2 (NORMAL) Ur Leukocyte Esterase NEGATIVE Ur Microscopic Review NOT INDICATED Urine Culture Comments NOT INDICATED Urine Opiates Screen NEGATIVE Ur Oxycodone Screen POSITIVE H Urine Methadone Screen NEGATIVE Ur Propoxyphene Screen NEGATIVE Ur Barbiturates Screen NEGATIVE Ur Tricyclics Screen NEGATIVE Ur Phencyclidine Scrn NEGATIVE Ur Amphetamine Screen NEGATIVE U Methamphetamines Scrn NEGATIVE U Benzodiazepines Scrn NEGATIVE Urine Cocaine Screen NEGATIVE U Cannabinoids Screen NEGATIVE PD MEDICAL DECISION MAKING - ED course Complexity details: reviewed old records, reviewed results, re-evaluated patient , considered differential, d/w patient ED course: The patient's presentation is significant for recurrent abdominal pain with associated vomiting. The underlying cause of her pain is not clearly ascertained, but she has undergone significant workup in the past, including multiple CT scans and MRI, and I do not think repeat imaging studies today would be of clinical benefit. She has history of long-term narcotic drug use, as well as history of methamphetamine use, and there is frequently a component of pain for the sake of getting pain medication. Narcotic withdrawal is a consideration, as was considered during her emergency department visit yesterday. She does not appear to be in DKA today, with a blood sugar of 366 and no ketones in her urine. Her alkaline phosphatase today is elevated at 563 , which is improved from yesterday when it was 777. Her white blood cell count is normal. CBC reveals anemia with a hemoglobin of 9.7 and hematocrit 30.5. Tox screen is positive for oxycodone. She was treated with Percocet when seen in the emergency department yesterday. Treatment in the emergency department included administration of normal saline 2 L IV, Phenergan 12.5 mg IV 2, Dilaudid 2 mg IV followed by 1 mg IV 3 over a period of several hours, lorazepam 1 mg IV, and ketorolac 30 mg IV. Regular insulin 12 units was administered subcutaneously for her blood sugar of 366. Her blood sugar subsequently came down to 84. She ate a meal and her blood sugar was rechecked and was up to 180. She demonstrates ability to eat and drink without recurrent nausea. She frequently requests additional pain medication, but when left alone she will rest without apparent discomfort. Discharging the patient proved difficult because she was not able to get an answer from the person she was expecting to provide a ride for her. The buses are no longer running, and it is too late for her to go to [facility]. She is not dressed warmly enough to sleep outdoors. Therefore she was allowed to rest in the emergency department and will be discharged when the buses begin running in the morning. Departure - Departure Clinical Impression: Abdominal pain Qualifiers: Abdominal location: generalized Qualified Code(s): R10.84 - Generalized abdominal pain Diabetes mellitus with hyperglycemia Qualifiers: Diabetes mellitus type: type 1 Qualified Code(s): E10.65 - Type 1 diabetes mellitus with hyperglycemia Vomiting Qualifiers: Vomiting Intractability: non-intractable Anemia Qualifiers: Anemia type: unspecified type Qualified Code(s): D64.9 - Anemia, unspecified Condition: Stable Instructions: ED Abdominal Pain Unkn Cause Prescriptions: HYDROmorphone [Dilaudid] 2 mg PO Q4-6H #12 tablet Promethazine [Phenergan] 25 - 50 mg PO Q6H PRN #10 tab PRN Reason: Nausea / Vomiting Comments: Continue taking your insulin as previously prescribed, and monitor your blood sugars. You can use Dilaudid as prescribed if needed for pain. You can use Phenergan as prescribed if needed for nausea. Drink plenty of fluids. Follow-up with your primary physician this week as scheduled. Return to the emergency department if you develop increasing abdominal pain, persistent vomiting, or otherwise worsening symptoms.
[2016-09-22] MEDS ORDERED: SODIUM CHLORIDE 0.9% 1,000 ML IV ONE ×2 (12:12→13:58)
[2016-09-22] MEDS ORDERED: HYDROmorphone 1 MG/ML SYRINGE IVP STA ×4 (12:12→21:28)
[2016-09-22] MEDS ORDERED: PROMETHAZINE INJ 12.5 MG in SODIUM CHLORIDE 0.9% 50 ML IV STA ×2 (12:13→15:31)
[2016-09-22] MEDS ORDERED: HYDROmorphone 1 MG/ML SYRINGE ONE ×4 (12:24→21:37)
[2016-09-22] MEDS ORDERED: PROMETHAZINE 25 MG/1 ML VIAL ONE ×2 (12:25→15:52)
[2016-09-22 12:58] LABS: BILIRUBIN,URINE NEGATIVE (NEGATIVE)
[2016-09-22 12:59] LABS: UA CHARGE (STRIP ONLY) YES; UR CULTURE IF IND NOT INDICATED
[2016-09-22 13:10] LABS: BASOPHILS % (AUTO) 0.6 %; EOSINOPHILS # (AUTO) 0.1 10^3/uL (0.0-0.7); EOSINOPHILS % (AUTO) 0.8 %; HCT - HEMATOCRIT 30.5 % (37.0-47.0); HGB - HEMOGLOBIN 9.7 g/dL (12.0-16.0); LYMPHOCYTES # (AUTO) 3.2 10^3/uL (1.5-3.5); LYMPHOCYTES % (AUTO) 48.9 %; MEAN CORPUSCULAR HEMOGLOBIN 25.4 pg (27.0-31.0); MEAN CORPUSCULAR HGB CONC 31.9 g/dL (32.0-36.0); MEAN CORPUSCULAR VOLUME 79.4 fL (81.0-99.0); MEAN PLATELET VOLUME 7.3 fL (7.9-10.8); MONOCYTES # (AUTO) 0.5 10^3/uL (0.0-1.0); MONOCYTES % (AUTO) 7.4 %; NEUTROPHILS # (AUTO) 2.8 10^3/uL (1.5-6.6); NEUTROPHILS % (AUTO) 42.3 %; RED BLOOD COUNT 3.84 10^6/uL (4.20-5.40); RED CELL DISTRIBUTION WIDTH 16.5 % (12.0-15.0); UNCORRECTED WHITE BLOOD COUNT 6.6 x10^3/uL; WHITE BLOOD COUNT 6.6 x10^3/uL (4.8-10.8)
[2016-09-22 13:12] LABS: ALBUMIN/GLOBULIN RATIO 0.7 (1.0-2.2); BILIRUBIN,TOTAL 0.6 mg/dL (0.2-1.0); CALCIUM 8.8 mg/dL (8.5-10.3); CREATININE 0.5 mg/dL (0.4-1.0); POTASSIUM 4.4 mmol/L (3.5-5.0); TOTAL PROTEIN 7.1 g/dL (6.7-8.2)
[2016-09-22] MEDS ORDERED: INSULIN REGULAR HUMAN 100 UNIT/1 ML 10 ML MDV SUBQ STA (13:56)
[2016-09-22] MEDS ORDERED: LORazepam 2 MG/ML SYRINGE IVP STA (13:58)
[2016-09-22] MEDS ORDERED: LORazepam 2 MG/ML SYRINGE ONE (14:19)
[2016-09-22] MEDS ORDERED: INSULIN REGULAR HUMAN 100 UNIT/1 ML 10 ML MDV ONE (14:20)
[2016-09-22] MEDS ORDERED: SODIUM CHLORIDE FLUSH 0.9% 10 ML SYRINGE IVP ONE ×3 (14:21→18:31)
[2016-09-22] MEDS ORDERED: KETOROLAC 30 MG/ML VIAL IVP STA (18:06)
[2016-09-22] MEDS ORDERED: KETOROLAC 30 MG/ML VIAL ONE (18:28)
[2016-09-23] MEDS ORDERED: DICYCLOMINE 10 MG CAPSULE PO STA (02:15)
[2016-09-23] MEDS ORDERED: DICYCLOMINE 10 MG CAPSULE PO ONE (02:20)
[2016-09-23] MEDS ORDERED: oxyCODONE 5 MG TABLET PO STA (04:28)
[2016-09-23] MEDS ORDERED: oxyCODONE 5 MG TABLET ONE (04:45)
[2016-09-23 04:47] VITALS: BP 154/98
== END 2016-09-23 04:55 | disposition home or self-care (01) ==
LOC: EDUNIT# → ED 11:28
DX: R10.84 Generalized abdominal pain (principal); R11.2 Nausea with vomiting, unspecified; E10.65 Type 1 diabetes mellitus with hyperglycemia; D64.9 Anemia, unspecified; E10.42 Type 1 diabetes mellitus with diabetic polyneuropathy; E10.51 Type 1 diabetes mellitus with diabetic peripheral angiopathy without gangrene; Z79.4 Long term (current) use of insulin; I10 Essential (primary) hypertension; F17.200 Nicotine dependence, unspecified, uncomplicated
CPT/HCPCS: 36415; 80053; 80306; 81003; 83690; 85025; 96365; 96366; 96375; 96376; 99284; A9270; J1170; J1815; J2060; J7040; 81001; 87086

== ENCOUNTER 2016-10-07 04:13 | Outpatient (CLI) | payer MEDICAID | END 2016-10-07 04:14 | disposition critical access hospital (66) | LOC: EMS 04:13 | PROVIDERS: ATTEND Surgery | DX: E11.65 Type 2 diabetes mellitus with hyperglycemia (principal) | CPT/HCPCS: A0425; A0429 ==

== ENCOUNTER 2016-10-07 04:26 | Inpatient (IN) | payer MEDICAID ==
[2016-10-07] MEDS ORDERED: SODIUM CHLORIDE 0.9% 1,000 ML IV ONE ×4 (04:51→09:02)
[2016-10-07] MEDS ORDERED: INSULIN REGULAR HUMAN 100 UNIT in SODIUM CHLORIDE 0.9% 100ML 99 ML IV STA (04:53)
[2016-10-07] MEDS ORDERED: INSULIN REGULAR HUMAN 100 UNIT/1 ML 10 ML MDV IVP STA ×2 (04:53→04:54)
[2016-10-07] MEDS ORDERED: INSULIN REGULAR HUMAN 100 UNIT/1 ML 10 ML MDV ONE ×2 (05:05→05:09)
[2016-10-07] MEDS ORDERED: CALCIUM CHLORIDE ABBOJECT 1000MG/10 ML SYRINGE IVP STA (05:24)
[2016-10-07 05:26] LABS: BASOPHILS # (AUTO) 0.1 10^3/uL (0.0-0.1); BASOPHILS % (AUTO) 0.4 %; EOSINOPHILS % (AUTO) 0.1 %; HCT - HEMATOCRIT 41.4 % (37.0-47.0); HGB - HEMOGLOBIN 11.4 g/dL (12.0-16.0); LYMPHOCYTES # (AUTO) 3.5 10^3/uL (1.5-3.5); LYMPHOCYTES % (AUTO) 10.5 %; MEAN CORPUSCULAR HEMOGLOBIN 25.3 pg (27.0-31.0); MEAN CORPUSCULAR HGB CONC 27.6 g/dL (32.0-36.0); MEAN CORPUSCULAR VOLUME 91.5 fL (81.0-99.0); MEAN PLATELET VOLUME 9.6 fL (7.9-10.8); MONOCYTES # (AUTO) 0.3 10^3/uL (0.0-1.0); MONOCYTES % (AUTO) 0.9 %; NEUTROPHILS # (AUTO) 28.8 10^3/uL (1.5-6.6); NEUTROPHILS % (AUTO) 88.1 %; RED BLOOD COUNT 4.53 10^6/uL (4.20-5.40); RED CELL DISTRIBUTION WIDTH 15.5 % (12.0-15.0); UNCORRECTED WHITE BLOOD COUNT 32.7 x10^3/uL; WHITE BLOOD COUNT 32.7 x10^3/uL (4.8-10.8)
[2016-10-07] MEDS ORDERED: CALCIUM CHLORIDE ABBOJECT 1000MG/10 ML SYRINGE ONE (05:34)
--- NOTE | 2016-10-07 05:43 | ED Physician Documentation ---
History of Present Illness - Stated complaint Stated Complaint: AMS - Chief complaint Chief Complaint: Neuro - Additonal information Additional information: This patient is a 36-year-old female with history of poorly controlled type 1 diabetes. According to previous records she was on NovoLog and Lantus. She also has a history of recurrent episodes of diabetic ketoacidosis and has a history of polysubstance abuse methamphetamine use depression anxiety and other social problems including homelessness. The patient is unable to give me any historic information about what happened. The patient's mental status is altered and therefore getting information is limited. 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 : None HEENT: None Psych: Depression, Anxiety, Panic attacks Musculoskeletal: Fibromyalgia Derm: None - Past Surgical History Past Surgical History: Yes General: Cholecystectomy HEENT: Tonsil/Adenoidectomy - Present Medications Home Medications: Ambulatory Orders Medication Instructions Recorded Confirmed Insulin Glargine,Hum.rec.anlog 70 unit SUBQ BID #2 vial 07/09/16 10/07/16 [Lantus] Insulin Aspart [Novolog Flexpen] 20 unit SQ TIDWM 09/21/16 10/07/16 Promethazine [Phenergan] 25 - 50 mg PO Q6H PRN #15 tab 09/21/16 10/07/16 HYDROmorphone [Dilaudid] 2 mg PO Q4-6H #12 tablet 09/23/16 10/07/16 Promethazine [Phenergan] 25 - 50 mg PO Q6H PRN #10 tab 09/23/16 10/07/16 Amoxicillin/Potassium Clav [Amox 1 each PO BID 10/07/16 10/07/16 Tr-K Clv 875-125 mg Tab] Clonazepam 0.5 mg PO BID 10/07/16 10/07/16 Cyclobenzaprine [Flexeril] 10 mg PO TID PRN 10/07/16 10/07/16 Diphenhydramine HCl [Allergy 25 mg PO PRN 10/07/16 Medication] Hydroxyzine Pamoate 50 mg PO Q6HR 10/07/16 10/07/16 Hyoscyamine Sulfate 0.125 mg SL Q6HR PRN 10/07/16 10/07/16 Ibuprofen 600 mg PO Q6HR PRN 10/07/16 10/07/16 Pregabalin [Lyrica] 150 mg PO BID 10/07/16 10/07/16 - Allergies Allergies/Adverse Reactions: Allergies Allergy/AdvReac Type Severity Reaction Status Date / Time codeine Allergy Hives Verified 10/07/16 04:36 hydrocodone Allergy Hives Verified 10/07/16 04:36 milk AdvReac Cramps Verified 10/07/16 04:36 nitrofurantoin AdvReac Headache Verified 10/07/16 04:36 [From Macrobid] PAPER TAPE AdvReac Unknown Uncoded 10/07/16 04:36 - Social History Does the pt smoke?: Yes Smoking Status: Current every day smoker Does the pt drink ETOH?: No Does the pt have substance abuse?: No - Immunizations Immunizations are current?: Yes - POLST Patient has POLST: No PD ED PE NORMAL - Vitals Vital signs reviewed: Yes - General General: Other (Young disheveled woman writhing on the bed. She is verbal but she is not making much sense. She is noted to be tachypneic, and tachycardic. On examination she looks clinically dry with a leathery furrowed tongue. She occasionally has disconjugate gaze and and refocuses on objects. When stimulated. She has multiple picking on her face consistent with methamphetamine use) - HEENT HEENT: Atraumatic, PERRL, Other. No: Moist mucous membranes - Neck Neck: Supple, no meningeal sign - Cardiac Cardiac: Other (Mild tachycardia noted, heart tones regular, no obvious murmur) - Respiratory Respiratory: Other (Clear lungs but moderate tachypnea noted) - Abdomen Abdomen: Normal bowel sounds, Soft, Non tender, Non distended - Derm Derm: Normal color, Warm and dry - Extremities Extremities: No deformity, No tenderness to palpate, Normal ROM s pain - Neuro Neuro: Other (This patient is lethargic and disoriented she appears to be moving everything. She does follow simple commands and is speaking although her speech is sometimes unintelligible) Results - Vitals Vitals: Vital Signs - 24 hr 10/07/16 10/07/16 10/07/16 04:30 05:20 05:50 Temperature 35.9 C L Heart Rate 106 H 107 H 111 H Respiratory 25 H 21 20 Rate Blood Pressure 114/60 136/62 H 151/59 H O2 Saturation 100 100 100 10/07/16 10/07/16 10/07/16 06:10 06:30 06:45 Temperature Heart Rate 111 H 121 H 116 H Respiratory 21 29 H 22 Rate Blood Pressure 149/69 H 133/57 H O2 Saturation 100 100 10/07/16 07:02 Temperature Heart Rate 118 H Respiratory 24 Rate Blood Pressure 154/69 H O2 Saturation 100 Oxygen O2 Source [Without Activity] Room air O2 Source Room air - Labs Labs: Laboratory Tests 10/07/16 10/07/16 10/07/16 05:14 05:14 05:14 WBC 32.7 H RBC 4.53 Hgb 11.4 L Hct 41.4 MCV 91.5 MCH 25.3 L MCHC 27.6 L RDW 15.5 H Plt Count 357 MPV 9.6 Neut # 28.8 H Lymph # 3.5 [place] # 0.3 Eos # 0.0 Baso # 0.1 Absolute Nucleated RBC 0.02 Band Neuts % (Manual) Not Reportable Nucleated RBCs 0.0 Differential Comment MANUAL=AUTO DIFF Manual Slide Review Indicated Platelet Estimate NORMAL (130-450,000) Platelet Morphology 1+ LARGE PLATELETS RBC Morph Micro Appear 1+ MACROCYTOSIS Bld Gas Analysis Time Sample Site ABG pH ABG pCO2 ABG pO2 ABG HCO3 ABG Total CO2 ABG O2 Saturation ABG Oximetry Spot Check ABG Base Excess Ilia Test Sodium 118 L* Potassium 6.2 H* Chloride 75 L* Carbon Dioxide < 6 L* Anion Gap 37.0 H BUN 57 H Creatinine 2.1 H Estimated GFR (MDRD) 27 L Glucose 1175 H* Calcium 8.1 L Total Bilirubin 2.3 H AST 45 H ALT 89 H Alkaline Phosphatase 329 H Total Protein 7.3 Albumin 4.1 Globulin 3.2 Albumin/Globulin Ratio 1.3 Lipase 14 L HCG, Quant < 0.60 Urine Color Urine Clarity Urine pH Ur Specific [place] Urine Protein Urine Glucose (UA) Urine Ketones Urine Occult Blood Urine Nitrite Urine Bilirubin Urine Urobilinogen Ur Leukocyte Esterase Ur Microscopic Review Urine Culture Comments Salicylates < 6.0 Urine Opiates Screen Ur Oxycodone Screen Urine Methadone Screen Ur Propoxyphene Screen Acetaminophen < 10 L Ur Barbiturates Screen Ur Tricyclics Screen Ur Phencyclidine Scrn Ur Amphetamine Screen U Methamphetamines Scrn U Benzodiazepines Scrn Urine Cocaine Screen U Cannabinoids Screen Ethyl Alcohol 7.5 Serum Ketones LARGE H 10/07/16 10/07/16 06:04 06:05 WBC RBC Hgb Hct MCV MCH MCHC RDW Plt Count MPV Neut # Lymph # [place] # Eos # Baso # Absolute Nucleated RBC Band Neuts % (Manual) Nucleated RBCs Differential Comment Manual Slide Review Platelet Estimate Platelet Morphology RBC Morph Micro Appear Bld Gas Analysis Time 0619 Sample Site RIGHT RADIAL ABG pH 6.95 L* ABG pCO2 26 L ABG pO2 61 L ABG HCO3 5.4 L ABG Total CO2 6.2 L* ABG O2 Saturation 79 L* ABG Oximetry Spot Check 100 ABG Base Excess -25.6 L Ilia Test POSITIVE Sodium Potassium Chloride Carbon Dioxide Anion Gap BUN Creatinine Estimated GFR (MDRD) Glucose Calcium Total Bilirubin AST ALT Alkaline Phosphatase Total Protein Albumin Globulin Albumin/Globulin Ratio Lipase HCG, Quant Urine Color LT. YELLOW Urine Clarity CLEAR Urine pH 5.5 Ur Specific [place] 1.015 Urine Protein NEGATIVE Urine Glucose (UA) >=1000 H Urine Ketones >=80 H Urine Occult Blood TRACE-INTA Urine Nitrite NEGATIVE Urine Bilirubin NEGATIVE Urine Urobilinogen 0.2 (NORMAL) Ur Leukocyte Esterase NEGATIVE Ur Microscopic Review NOT INDICATED Urine Culture Comments NOT INDICATED Salicylates Urine Opiates Screen NEGATIVE Ur Oxycodone Screen NEGATIVE Urine Methadone Screen NEGATIVE Ur Propoxyphene Screen NEGATIVE Acetaminophen Ur Barbiturates Screen NEGATIVE Ur Tricyclics Screen NEGATIVE Ur Phencyclidine Scrn NEGATIVE Ur Amphetamine Screen NEGATIVE U Methamphetamines Scrn NEGATIVE U Benzodiazepines Scrn NEGATIVE Urine Cocaine Screen NEGATIVE U Cannabinoids Screen NEGATIVE Ethyl Alcohol Serum Ketones PD MEDICAL DECISION MAKING - ED course Complexity details: reviewed old records, considered differential, 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 She has been here many times for DKA. She presented altered. There is very little historic information other than she was screaming at her household and EMS was called. The EKG initially on this patient was suspicious for hyperkalemia so therapy was started immediately. This EKG shows sinus rhythm at 108 bpm there is borderline prolonged QT at 498 ms the T waves are peaked consistent with hyperkalemia. She is given albuterol, insulin bolus and insulin drip was started she is given normal saline wide open through her hand and then I placed a right external jugular line in the usual fashion and IV fluids were initiated here as well. She is given protective calcium 1000 mg and 1 L normal saline as a bolus and also given sodium bicarbonate IV push. I attempted to do a left internal jugular central line but the landmarks were poor and there is collapse of the internal jugular so I change it over to the left subclavian. There was cleansed, anesthetized and prepped in usual fashion in the left subclavian catheter was placed in usual fashion. The procedure went well as confirmed a chest x-ray. At the present time the patient looks a little better Zamarripa catheter was placed she was seen by internal medicine and will be admitted to the hospital at this time the patient's initial potassium was 6.3 her bicarbonate 5 for pH 6.9 and her blood sugar still over thousand. At present she is finishing her second liter of normal saline and is on insulin drip. Because of her last episode of DKA where she had bacteremia blood cultures were obtained however there is no evidence of infection medically at this point Disposition: Admission to ICU Clinical impression: 1. Severe diabetic ketoacidosis with coma 2. Hyperkalemia with potassium of 6.4 with EKG changes Critical care time exclusive of separately billable procedures is 80 minutes Departure - Departure Disposition: [facility] DC/Xfer Clinical Impression: DKA, type 1
[2016-10-07 05:44] LABS: ALBUMIN/GLOBULIN RATIO 1.3 (1.0-2.2); BILIRUBIN,TOTAL 2.3 mg/dL (0.2-1.0); BUN - BLOOD UREA NITROGEN 57 mg/dL (6-20); CALCIUM 8.1 mg/dL (8.5-10.3); CREATININE 2.1 mg/dL (0.4-1.0); GFR - MDRD 27 (>89); LIPASE 14 U/L (22-51); SALICYLATE < 6.0 mg/dL; TOTAL PROTEIN 7.3 g/dL (6.7-8.2)
[2016-10-07 05:45] LABS: ACETAMINOPHEN < 10 ug/mL (10-30); CARBON DIOXIDE - CO2 < 6 mmol/L (21-32)
[2016-10-07] MEDS ORDERED: ALBUTEROL NEB 2.5 MG/3 ML INH STA (05:47)
[2016-10-07 05:50] LABS: CHLORIDE 75 mmol/L (101-111); POTASSIUM 6.2 mmol/L (3.5-5.0); SODIUM 118 mmol/L (135-145)
[2016-10-07 05:51] LABS: GLUCOSE 1175 mg/dL (70-100)
[2016-10-07 05:58] LABS: NP AUTO DIFFERENTIAL? NO; NP MAN DIFFERENTIAL? YES; PLATELET ESTIMATE, MANUAL NORMAL (130-450,000) (NORMAL); PLATELET MORPHOLOGY 1+ LARGE PLATELETS (NORMAL)
[2016-10-07] MEDS ORDERED: ALBUTEROL NEB 2.5 MG/3 ML INH ONE ×2 (06:02→06:04)
[2016-10-07 06:12] LABS: BILIRUBIN,URINE NEGATIVE (NEGATIVE); PH,URINE 5.5 PH (5.0-7.5)
[2016-10-07 06:14] LABS: UA CHARGE (STRIP ONLY) YES; UR CULTURE IF IND NOT INDICATED
[2016-10-07 06:19] LABS: ABG PCO2 26 mmHg (34-45)
[2016-10-07] MEDS ORDERED: SODIUM BICARBONATE ABBOJECT 50 MEQ/50 ML SYRINGE ONE (06:19)
[2016-10-07 06:20] LABS: ABG BASE EXCESS -25.6 mmol/L (-2.0-3.0); ABG HCO3 5.4 mmol/L (22.0-26.0); ABG PO2 61 mmHg (80-100); ABG SITE OF DRAW RIGHT RADIAL; ALLEN TEST POSITIVE
[2016-10-07 06:21] LABS: ABG SATURATION PULSE OXIMETRY% 100 %
[2016-10-07 06:22] LABS: ABG PH 6.95 (7.35-7.45)
[2016-10-07 06:23] LABS: ABG OXYGEN SATURATION 79 % (94-98); ABG TCO2 6.2 MMOL/L (21.0-29.0)
[2016-10-07] MEDS: SODIUM BICARBONATE ABBOJECT 50 MEQ/50 ML SYRINGE IVP STA ×2 (06:24→10:55)
[2016-10-07] MEDS ORDERED: SODIUM CHLORIDE FLUSH 0.9% 10 ML SYRINGE IVP ONE ×6 (07:05→21:35)
--- NOTE | 2016-10-07 07:34 | XRAY Preliminary Report ---
Exam: XR Chest for Line Placement IMPRESSION: Negative portable chest. Left subclavian venous catheter, tip at the cavoatrial junction . [facility] SITE ID: [id number]
--- NOTE | 2016-10-07 07:36 | XRAY Report ---
EXAM: CHEST RADIOGRAPHY EXAM DATE: 10/07/2016 07:23 AM. CLINICAL HISTORY: Dyspnea. COMPARISON: 09/09/2016. TECHNIQUE: 1 view. FINDINGS: Lungs/Pleura: No focal opacities evident. No pleural effusion. No pneumothorax. Mediastinum: Within exam limitations, cardiomediastinal contour is normal. Other: Left subclavian venous catheter, tip at the cavoatrial junction. IMPRESSION: Negative portable chest. Left subclavian venous catheter, tip at the cavoatrial junction . [facility] Referring Provider Line: [phone] SITE ID: [id number]
[2016-10-07] MEDS: INSULIN REGULAR HUMAN 100 UNIT in SODIUM CHLORIDE 0.9% 100ML 99 ML IV SCH (08:30)
[2016-10-07 09:03] LABS: BASOPHILS # (AUTO) 0.1 10^3/uL (0.0-0.1); BASOPHILS % (AUTO) 0.3 %; EOSINOPHILS # (AUTO) 0.2 10^3/uL (0.0-0.7); EOSINOPHILS % (AUTO) 0.5 %; HCT - HEMATOCRIT 38.3 % (37.0-47.0); HGB - HEMOGLOBIN 11.6 g/dL (12.0-16.0); LYMPHOCYTES # (AUTO) 3.9 10^3/uL (1.5-3.5); LYMPHOCYTES % (AUTO) 11.5 %; MEAN CORPUSCULAR HGB CONC 30.2 g/dL (32.0-36.0); MEAN CORPUSCULAR VOLUME 82.8 fL (81.0-99.0); MONOCYTES # (AUTO) 1.9 10^3/uL (0.0-1.0); MONOCYTES % (AUTO) 5.6 %; NEUTROPHILS # (AUTO) 28.1 10^3/uL (1.5-6.6); NEUTROPHILS % (AUTO) 82.1 %; RED BLOOD COUNT 4.63 10^6/uL (4.20-5.40); RED CELL DISTRIBUTION WIDTH 14.8 % (12.0-15.0); UNCORRECTED WHITE BLOOD COUNT 34.2 x10^3/uL; VBG BASE EXCESS -20.9 mmol/L (-2 - +2); VBG PH 7.109 (7.31-7.41); VBG TOTAL CO2 7.5 mmol/L (24-29); WHITE BLOOD COUNT 34.2 x10^3/uL (4.8-10.8)
[2016-10-07 09:04] LABS: VBG OXYGEN SATURATION 90.4 % (60-80)
[2016-10-07 09:10] LABS: BILIRUBIN,URINE NEGATIVE (NEGATIVE); PH,URINE 5.5 PH (5.0-7.5)
[2016-10-07 09:14] LABS: UA CHARGE (STRIP ONLY) YES; UR CULTURE IF IND NOT INDICATED
[2016-10-07 09:34] LABS: AMYLASE 123 U/L (28-100); HEMOGLOBIN A1C 1.35 g/dL; LIPASE 13 U/L (22-51); MAGNESIUM 2.6 mg/dL (1.7-2.8); PHOSPHORUS 7.2 mg/dL (2.5-4.6); TRIGLYCERIDES 380 mg/dL
[2016-10-07] MEDS: SODIUM CHLORIDE FLUSH 0.9% 10 ML SYRINGE IVP ONE ×3 (09:43→14:02)
[2016-10-07 09:58] LABS: BUN - BLOOD UREA NITROGEN 48 mg/dL (6-20); CALCIUM 8.8 mg/dL (8.5-10.3); CHLORIDE 91 mmol/L (101-111); CREATININE 1.7 mg/dL (0.4-1.0); GFR - MDRD 34 (>89); POTASSIUM 4.2 mmol/L (3.5-5.0); SODIUM 130 mmol/L (135-145)
[2016-10-07 09:59] LABS: CARBON DIOXIDE - CO2 < 6 mmol/L (21-32)
[2016-10-07 10:00] LABS: GLUCOSE 654 mg/dL (70-100)
[2016-10-07 10:08] LABS: ABG BASE EXCESS -20.8 mmol/L (-2.0-3.0); ABG HCO3 6.2 mmol/L (22.0-26.0); ABG OXYGEN SATURATION 98 % (94-98); ABG PO2 128 mmHg (80-100); ABG ROOM AIR YES; ABG SATURATION PULSE OXIMETRY% 100 %; ABG SITE OF DRAW RIGHT RADIAL; ALLEN TEST POSITIVE
[2016-10-07 10:10] LABS: ABG PCO2 18 mmHg (34-45); ABG PH 7.14 (7.35-7.45); ABG TCO2 6.7 MMOL/L (21.0-29.0)
[2016-10-07] MEDS ORDERED: SODIUM BICARBONATE ABBOJECT 4.2% 5 MEQ/10 ML SYRINGE IVP ONE (10:33)
[2016-10-07 11:27] LABS: BUN - BLOOD UREA NITROGEN 50 mg/dL (6-20); CALCIUM 8.5 mg/dL (8.5-10.3); CARBON DIOXIDE - CO2 8 mmol/L (21-32); CHLORIDE 93 mmol/L (101-111); CREATININE 1.5 mg/dL (0.4-1.0); GFR - MDRD 40 (>89); MAGNESIUM 2.4 mg/dL (1.7-2.8); POTASSIUM 4.8 mmol/L (3.5-5.0); SODIUM 134 mmol/L (135-145)
[2016-10-07 11:28] LABS: GLUCOSE 530 mg/dL (70-100)
[2016-10-07] MEDS ORDERED: SODIUM BICARBONATE ABBOJECT 50 MEQ/50 ML SYRINGE IV ONE (12:00)
[2016-10-07] MEDS: LORazepam 2 MG/ML SYRINGE IVP PRN ×4 (12:11→23:22)
[2016-10-07 12:13] LABS: ABG ANALYSIS TIME 1214; ABG HCO3 8.4 mmol/L (22.0-26.0); ABG PH 7.22 (7.35-7.45); ABG PO2 124 mmHg (80-100)
[2016-10-07 12:14] LABS: ABG BASE EXCESS -17.4 mmol/L (-2.0-3.0); ABG OXYGEN SATURATION 98 % (94-98); ABG ROOM AIR YES; ABG SITE OF DRAW LEFT RADIAL; ALLEN TEST POSITIVE
[2016-10-07 12:15] LABS: ABG PCO2 21 mmHg (34-45)
[2016-10-07 13:39] LABS: BUN - BLOOD UREA NITROGEN 48 mg/dL (6-20); CALCIUM 8.3 mg/dL (8.5-10.3); CHLORIDE 96 mmol/L (101-111); CREATININE 1.4 mg/dL (0.4-1.0); GFR - MDRD 43 (>89); MAGNESIUM 2.3 mg/dL (1.7-2.8); POTASSIUM 4.6 mmol/L (3.5-5.0); SODIUM 134 mmol/L (135-145)
[2016-10-07 13:40] LABS: GLUCOSE 502 mg/dL (70-100)
[2016-10-07 13:41] LABS: CARBON DIOXIDE - CO2 6 mmol/L (21-32)
[2016-10-07] MEDS ORDERED: SODIUM CHLORIDE 0.9% 500 ML IV ONE (14:38)
[2016-10-07] MEDS: SODIUM CHLORIDE 0.9% 1,000 ML IV SCH ×2 (14:47→18:22)
[2016-10-07] MEDS ORDERED: HYDROmorphone 1 MG/ML SYRINGE IVP PRN (15:43)
--- NOTE | 2016-10-07 16:43 | HISTORY & PHYSICAL EXAMINATION ---
DATE OF ADMISSION: 10/07/2016 ADMISSION DIAGNOSIS: Diabetic ketoacidosis. HISTORY OF PRESENT ILLNESS: This is a 36-year-old, insulin-dependent diabetic with a history of polys ubstance abuse and psychiatric disorder. She has had multiple admissions for pain control, abdominal pain, DKA. Most recently she was admitted here with abdominal pain and was found to have abnormalitie s of lymphadenopathy and pancreatic enlargement on CT scan and was transferred to the [facility] for evaluation. Their discharge diagnoses were unspecified abdominal pain, mesenteric lymph adenopathy and group A strep bacteremia of unknown source. The patient presents now with altered mental status. She has not been taking her insulin and has agai n presented with high glucose and low pH and is in DKA. The patient gives no answers. She does compla in of a headache. Otherwise, she is moaning and sleeping. MEDICATIONS BEFORE ADMISSION: 1. Lantus insulin. 2. NovoLog insulin. 3. Phenergan. 4. Dilaudid. 5. Amoxicillin. (continuing from the discharge from the [facility]), 6. Clonazepam. 7. Flexeril. 8. Diphenhydramine. 9. Hydroxyzine. 10. Hyoscyamine. 11. Ibuprofen p.r.n.. 12. Lyrica. ALLERGIES: 1. CODEINE, WHICH CAUSED HIVES. 2. HYDROCODONE, WHICH CAUSED HIVES. 3. MILK, WHICH CAUSES CRAMPS. 4. MACROBID, WHICH CAUSED A HEADACHE. 5. UNKNOWN REACTION TO PAPER TAPE. REVIEW OF SYSTEMS: A complete review of systems could not be done because of her mentation. The past records were reviewed and significant history as already described above. IMMUNIZATIONS are up to date. FAMILY HISTORY: Not known. SOCIAL HISTORY: The patient is homeless. She occasionally lives in a prison. It is unclear where she gets her support for medications and prescriptions since she has no listed primary care doctor. PHYSICAL EXAMINATION: GENERAL: Reveals a young white female. She is tachypneic, warm and dry, she is occasionally moaning a nd does answer that her pain is in her lower spine and headache. VITAL SIGNS: Blood pressure is 116/62, heart rate is 120 and sinus tachycardia. HEENT: Shows dry oral mucosa, and she is mouth breathing and tachypneic with a respiratory rate of 24 . NECK: Shows no JVD in the supine position. CHEST: Clear anteriorly and posteriorly. There are no wheezes or rales. HEART: Sounds are tachycardic, but no audible murmurs. ABDOMEN: Soft, decreased bowel sounds, nontender to medium palpation. EXTREMITIES: No clubbing, cyanosis, or edema. NEUROLOGIC: As above. LABORATORY DATA: Sodium 118, potassium 6.2, BUN 57, creatinine 2.1, glucose 1175. HBA1C 12, calcium 8 .1, AST 45, ALT 89, alkaline phosphatase 329. Lipase 14, which is low, negative beta hCG. White blood count 32.7, hemoglobin 11.4, hematocrit 41, platelet count 357. Blood gas showed a pH of 6.95, pCO2 26, pO2 61, saturations 99%. IMAGING: Chest x-ray was unremarkable with good placement of a central venous catheter via subclavian approach. EKG shows sinus tachycardia and peaked anterolateral T waves. IMPRESSION: 1. Diabetic ketoacidosis. 2. Diabetes on insulin. 3. Acute renal failure. 4. Chronic pain including abdominal pain of unclear etiology. 5. Polysubstance abuse history. 6. Psychiatric disorder history. 7. Homelessness. RECOMMENDATIONS: DKA protocol will be instituting including IV hydration, IV insulin drip, replacemen t of any other electrolytes as necessary. Insulin infusion will help to correct her hyperkalemia and saline and glucose control will help to correct the hyponatremia. Blood cultures have been ordered to assess for recurrent bacteremia despite her being on oral antibiotics (possibly noncompliant). Ativa n p.r.n. and Dilaudid p.r.n. for management of her agitation, as well as her pain. Eventual taper to her prehospital medications. JOB #: [id number] EXT JOB #:[id number]
[2016-10-07 18:03] LABS: ABG ANALYSIS TIME 1803; ABG BASE EXCESS -10.7 mmol/L (-2.0-3.0); ABG HCO3 13.9 mmol/L (22.0-26.0); ABG OXYGEN SATURATION 97 % (94-98); ABG PCO2 28 mmHg (34-45); ABG PH 7.32 (7.35-7.45); ABG PO2 102 mmHg (80-100); ABG ROOM AIR YES; ABG SITE OF DRAW LEFT RADIAL; ABG TCO2 14.8 MMOL/L (21.0-29.0); ALLEN TEST POSITIVE
[2016-10-07 18:27] LABS: CALCIUM 7.9 mg/dL (8.5-10.3); CREATININE 1.1 mg/dL (0.4-1.0); POTASSIUM 4.4 mmol/L (3.5-5.0)
[2016-10-07 22:06] LABS: CALCIUM 7.8 mg/dL (8.5-10.3); CREATININE 0.9 mg/dL (0.4-1.0); POTASSIUM 4.1 mmol/L (3.5-5.0)
[2016-10-07] MEDS: DEXTROSE 5%-0.45% NACL 1,000 ML IV SCH (22:17)
[2016-10-08 00:23] LABS: ABG HCO3 18.4 mmol/L (22.0-26.0); ABG OXYGEN SATURATION 97 % (94-98); ABG PCO2 32 mmHg (34-45); ABG PH 7.38 (7.35-7.45); ABG PO2 95 mmHg (80-100); ABG SITE OF DRAW LEFT RADIAL; ABG TCO2 19.3 MMOL/L (21.0-29.0); ALLEN TEST POSITIVE
[2016-10-08] MEDS: DEXTROSE 5%-0.45% NACL 1,000 ML IV SCH (02:28)
[2016-10-08] MEDS: LORazepam 2 MG/ML SYRINGE IVP PRN ×3 (02:47→09:45)
[2016-10-08] MEDS: SODIUM CHLORIDE 0.9% 1,000 ML IV SCH ×2 (03:38→07:37)
[2016-10-08] MEDS ORDERED: SODIUM CHLORIDE 0.9% 1,000 ML IV SCH (04:00)
[2016-10-08] MEDS ORDERED: HALOPERIDOL 5 MG/ML VIAL IM SCH (06:15)
[2016-10-08] MEDS ORDERED: HYDROmorphone 2 MG TABLET PO PRN (10:39)
[2016-10-08] MEDS ORDERED: CYCLOBENZAPRINE 10 MG TABLET PO PRN (10:41)
[2016-10-08] MEDS ORDERED: SODIUM CHLORIDE FLUSH 0.9% 10 ML SYRINGE IVP ONE ×2 (12:05→15:24)
[2016-10-08] MEDS: SODIUM CHLORIDE 0.45% 1,000 ML IV SCH ×2 (12:20→21:00)
[2016-10-08] MEDS: hydrOXYzine PAMOATE 25 MG CAPSULE PO SCH ×2 (12:21→23:35)
[2016-10-08] MEDS: HYOSCYAMINE SL 0.125 MG TABLET SL SCH ×2 (12:22→17:11)
[2016-10-08 13:36] LABS: BILIRUBIN,URINE NEGATIVE (NEGATIVE); UA w/ MICROSCOPIC CHARGE YES
[2016-10-08 13:44] LABS: UR CULTURE IF IND NOT INDICATED; WBC,URINE 0-3 /HPF (0-5)
[2016-10-08] MEDS ORDERED: NYSTATIN POWDER 15 GM TOP ONE (14:15)
[2016-10-08] MEDS: AMOX/CLAV 875 MG/125 MG TABLET PO SCH ×2 (14:31→20:27)
[2016-10-08] MEDS ORDERED: POTASSIUM CHLOR 20 MEQ/100 ML 100 ML IV ONE ×2 (15:57→17:00)
--- NOTE | 2016-10-08 18:24 | PROVIDER PROGRESS NOTE ---
Assessment/Plan - Problem List (1) DKA, type 1 Qualifiers: Diabetes mellitus complication detail: with coma Qualified Code(s): E10.11 - Type 1 diabetes mellitus with ketoacidosis with coma Assessment/Plan: Improving blood glu but still has moderate Ketones. Will continue hydration, change to 1/2 NS. Continue Insulin drip and then resume her previous Insulin plus sliding scale Will allow po intake and may have water pitcher (2) Borderline personality disorder Assessment/Plan: Pt more awake and is agitated. Will resume her psych meds as she is able to swallow. (3) Chronic pain Qualifiers: Chronic pain type: other chronic pain Qualified Code(s): G89.29 - Other chronic pain Assessment/Plan: Pt did not c/o headache or low back pain today. All pre-admission pain meds will be resumed prn. - Current Meds Current Meds: Current Medications Generic Name Dose Route Start Last Admin Trade Name Freq PRN Reason Stop Dose Admin Amoxicillin/Clavulanate Potassium 1 tab 10/08/16 11:00 10/08/16 14:31 Augmentin 875/125 PO 1 tab BID SYLVIA Administration Heparin Sodium (Beef Lung) 30 - 50 unit 10/07/16 14:32 10/07/16 14:58 IVP 11/06/16 14:32 30 unit ONCE PRN Administration Central Line Protocol (<24 hr) Hydroxyzine Pamoate 50 mg 10/08/16 11:00 10/08/16 12:21 Vistaril PO Not Given Q12H SYLVIA Hyoscyamine 0.125 mg 10/08/16 11:00 10/08/16 17:11 Levsin SL Not Given AC SYLVIA Insulin Human Regular 100 unit 100 mls @ 5 mls/hr 10/07/16 08:00 10/07/16 21:30 / Sodium Chloride IV 2 unit/hr .Q20H SYLVIA Titration Protocol 5 UNIT/HR Sodium Chloride 1,000 mls @ 83.333 mls/hr 10/08/16 11:00 10/08/16 12:20 Normal Saline 0.45% IV 83.333 mls/hr .Q12H SYLVIA Administration Lorazepam 1 mg 10/07/16 11:45 10/08/16 09:45 Ativan Inj IVP 1 mg Q2HR PRN Administration Anxiety - Lab Result Fish Bone Diagrams: 10/07/16 08:50 10/08/16 15:17 - Additional Planning My Orders: My Active Orders 10/08/16 KETONES, SERUM (ACETEST) [CHEM] Routine 10/08/16 05:36 OSMOLALITY SERUM [REFLAB] DAILYLAB 10/08/16 10:25 CULTURE, BLOOD #1 [RM] Stat 10/08/16 10:33 Miscellaenous Nursing Order [RC] QSHIFT 10/08/16 10:39 HYDROmorphone [Dilaudid] 2 mg PO Q6HR PRN 10/08/16 10:40 clonazePAM [KlonoPIN] 0.5 mg PO BID PRN 10/08/16 10:41 Cyclobenzaprine [Flexeril] 10 mg PO TID PRN 10/08/16 11:00 Amox/Clav 875/125 [Augmentin 875/125] 1 tab PO BID Hyoscyamine [Levsin] 0.125 mg SL AC Sodium Chloride 0.45% [Normal Saline 0.45%] 1,000 ml IV 83.333 mls/hr hydrOXYzine PAMOATE [Vistaril] 50 mg PO Q12H 10/08/16 12:00 Echo Transthoracic Complete [ECHO] Routine 10/08/16 15:00 Blood Glucose POC [RC] DAILY 10/08/16 15:55 Activity Orders [RC] QSHIFT 10/08/16 21:00 Pregabalin [Lyrica] 100 mg PO BID Pregabalin [Lyrica] 50 mg PO BID 10/08/16 Lunch DIET [Full Liquid Diet] [DIET] Subjective - Subjective Patient Reports: Other (Agitated earlier, wanted to drink from faucet due to thirst.) Nursing Reports: Confused Objective Vital Signs: Vital Signs - 24 hr 10/07/16 10/07/16 10/07/16 19:02 20:02 21:16 Temperature 37.1 C 37.1 C Heart Rate [ 130 H 130 H 132 H Monitoring electrodes] Respiratory 22 25 H 23 Rate Blood Pressure 147/78 H 143/80 H 140/76 H [Right Brachial artery] O2 Saturation 100 99 99 10/07/16 10/07/16 10/08/16 22:05 23:10 00:00 Temperature 37.2 C 37.1 C Heart Rate [ 129 H 133 H 132 H Monitoring electrodes] Respiratory 23 26 H 24 Rate Blood Pressure 145/82 H 138/73 H 139/72 H [Right Brachial artery] O2 Saturation 99 100 100 10/08/16 10/08/16 10/08/16 01:00 02:00 03:00 Temperature Heart Rate [ 136 H 133 H 129 H Monitoring electrodes] Respiratory 28 H 28 H 28 H Rate Blood Pressure 150/72 H 145/76 H 144/73 H [Right Brachial artery] O2 Saturation 98 98 97 10/08/16 10/08/16 10/08/16 04:00 05:00 06:00 Temperature Heart Rate [ 128 H 109 H 127 H Monitoring electrodes] Respiratory 28 H 24 28 H Rate Blood Pressure 141/89 H 154/95 H 143/80 H [Right Brachial artery] O2 Saturation 98 97 98 10/08/16 10/08/16 10/08/16 07:00 07:42 08:48 Temperature 37.8 C H Heart Rate [ 124 H 124 H 127 H Monitoring electrodes] Respiratory 32 H 26 H 27 H Rate Blood Pressure 158/94 H 161/94 H 164/77 H [Right Brachial artery] O2 Saturation 99 99 100 10/08/16 10/08/16 10/08/16 10:00 10:47 11:54 Temperature Heart Rate [ 118 H 117 H 118 H Monitoring electrodes] Respiratory 28 H 27 H 18 Rate Blood Pressure 145/94 H 164/97 H 160/96 H [Right Brachial artery] O2 Saturation 100 100 99 10/08/16 10/08/16 10/08/16 12:55 13:58 14:55 Temperature 37.4 C Heart Rate [ 123 H 128 H 117 H Monitoring electrodes] Respiratory 28 H 25 H 23 Rate Blood Pressure 146/86 H 155/96 H 156/94 H [Right Brachial artery] O2 Saturation 98 100 100 10/08/16 10/08/16 10/08/16 16:03 17:01 18:04 Temperature 36.8 C Heart Rate [ 118 H 120 H 118 H Monitoring electrodes] Respiratory 23 21 32 H Rate Blood Pressure 155/99 H 159/98 H 167/103 H [Right Brachial artery] O2 Saturation 99 100 97 Oxygen O2 Source Room air I&O (Last 24 Hrs): Intake and Output Totals x24h 10/06/16 10/07/16 10/08/16 23:59 23:59 23:59 Intake Total 2283 6406 Output Total 5961 7116 Balance -1557 5441 General: Other (Sedated after 1 dose of Haldol, sleeping) HEENT: Atraumatic Neck: Supple Neuro: Other (Sedated) Respiratory: No respiratory distress Extremities: No edema - Results Results: Laboratory Results WBC 34.2 x10^3/uL (4.8-10.8) H 10/07/16 08:50 RBC 4.63 10^6/uL (4.20-5.40) 10/07/16 08:50 Hgb 11.6 g/dL (12.0-16.0) L 10/07/16 08:50 Hct 38.3 % (37.0-47.0) 10/07/16 08:50 MCV 82.8 fL (81.0-99.0) 10/07/16 08:50 MCH 25.0 pg (27.0-31.0) L 10/07/16 08:50 MCHC 30.2 g/dL (32.0-36.0) L 10/07/16 08:50 RDW 14.8 % (12.0-15.0) 10/07/16 08:50 Plt Count 329 10^3/uL (130-450) 10/07/16 08:50 MPV 9.0 fL (7.9-10.8) 10/07/16 08:50 Neut # 28.1 10^3/uL (1.5-6.6) H 10/07/16 08:50 Lymph # 3.9 10^3/uL (1.5-3.5) H 10/07/16 08:50 [place] # 1.9 10^3/uL (0.0-1.0) H 10/07/16 08:50 Eos # 0.2 10^3/uL (0.0-0.7) 10/07/16 08:50 Baso # 0.1 10^3/uL (0.0-0.1) 10/07/16 08:50 Absolute Nucleated RBC 0.00 x10^3/uL 10/07/16 08:50 Band Neuts % (Manual) Not Reportable 10/07/16 05:14 Nucleated RBCs 0.0 /100WBC 10/07/16 08:50 Differential Comment MANUAL=AUTO DIFF 10/07/16 05:14 Manual Slide Review Indicated 10/07/16 08:50 Platelet Estimate NORMAL (130-450,000) (NORMAL) 10/07/16 05:14 Platelet Morphology 1+ LARGE PLATELETS (NORMAL) 10/07/16 05:14 RBC Morph Micro Appear 2+ ANISOCYTOSIS (NORMAL) 10/07/16 08:50 Bld Gas Analysis Time 0023 10/08/16 00:10 Sample Site LEFT RADIAL 10/08/16 00:10 ABG pH 7.38 (7.35-7.45) 10/08/16 00:10 ABG pCO2 32 mmHg (34-45) L 10/08/16 00:10 ABG pO2 95 mmHg (80-100) 10/08/16 00:10 ABG HCO3 18.4 mmol/L (22.0-26.0) L 10/08/16 00:10 ABG Total CO2 19.3 MMOL/L (21.0-29.0) L 10/08/16 00:10 ABG O2 Saturation 97 % (94-98) 10/08/16 00:10 ABG Oximetry Spot Check 100 % 10/07/16 09:40 ABG Base Excess -6.0 mmol/L (-2.0-3.0) L 10/08/16 00:10 Ilia Test POSITIVE 10/08/16 00:10 VBG pH 7.109 (7.31-7.41) L 10/07/16 08:50 VBG pCO2 22.1 mmHg (41-51) L 10/07/16 08:50 VBG pO2 69.3 mmHg (25-47) H 10/07/16 08:50 VBG HCO3 6.8 mmol/L (23-28) L 10/07/16 08:50 VBG Total CO2 7.5 mmol/L (24-29) L 10/07/16 08:50 VBG O2 Saturation 90.4 % (60-80) H 10/07/16 08:50 VBG Base Excess -20.9 mmol/L (-2 - +2) L 10/07/16 08:50 Room Air YES 10/07/16 17:55 Sodium 140 mmol/L (135-145) 10/08/16 15:17 Potassium 3.0 mmol/L (3.5-5.0) L 10/08/16 15:17 Chloride 111 mmol/L (101-111) 10/07/16 21:48 Carbon Dioxide 16 mmol/L (21-32) L 10/07/16 21:48 Anion Gap 15.0 (6-13) H 10/07/16 21:48 BUN 37 mg/dL (6-20) H 10/07/16 21:48 Creatinine 0.9 mg/dL (0.4-1.0) 10/07/16 21:48 Estimated GFR (MDRD) 71 (>89) L 10/07/16 21:48 Glucose 202 mg/dL (70-100) H 10/07/16 21:48 POC Whole Bld Glucose 147 mg/dL (70 - 100) H 10/08/16 17:58 Glycated Hemoglobin 12.0 % (4.6-6.2) H 10/07/16 08:50 Estim Average Glucose 298 (70-100) H 10/07/16 08:50 Calcium 7.8 mg/dL (8.5-10.3) L 10/07/16 21:48 Phosphorus 7.2 mg/dL (2.5-4.6) H 10/07/16 08:50 Magnesium 2.3 mg/dL (1.7-2.8) 10/07/16 13:03 Total Bilirubin 2.3 mg/dL (0.2-1.0) H 10/07/16 05:14 AST 45 IU/L (10-42) H 10/07/16 05:14 ALT 89 IU/L (10-60) H 10/07/16 05:14 Alkaline Phosphatase 329 IU/L (42-121) H 10/07/16 05:14 Troponin I 0.04 ng/mL (<0.49) 10/08/16 01:50 Total Protein 7.3 g/dL (6.7-8.2) 10/07/16 05:14 Albumin 4.1 g/dL (3.2-5.5) 10/07/16 05:14 Globulin 3.2 g/dL (2.1-4.2) 10/07/16 05:14 Albumin/Globulin Ratio 1.3 (1.0-2.2) 10/07/16 05:14 Triglycerides 380 mg/dL (-149) H 10/07/16 08:50 Amylase 123 U/L (28-100) H 10/07/16 08:50 Lipase 13 U/L (22-51) L 10/07/16 08:50 HCG, Quant < 0.60 mIU/mL 10/07/16 05:14 Urine Color YELLOW 10/08/16 09:50 Urine Clarity CLOUDY (CLEAR) 10/08/16 09:50 Urine pH 6.0 PH (5.0-7.5) 10/08/16 09:50 Ur Specific [place] 1.025 (1.002-1.030) 10/08/16 09:50 Urine Protein NEGATIVE mg/dL (NEGATIVE) 10/08/16 09:50 Urine Glucose (UA) NEGATIVE mg/dL (NEGATIVE) 10/08/16 09:50 Urine Ketones 40 mg/dL (NEGATIVE) H 10/08/16 09:50 Urine Occult Blood MODERATE (NEGATIVE) H 10/08/16 09:50 Urine Nitrite NEGATIVE (NEGATIVE) 10/08/16 09:50 Urine Bilirubin NEGATIVE (NEGATIVE) 10/08/16 09:50 Urine Urobilinogen 0.2 (NORMAL) E.U./dL (NORMAL) 10/08/16 09:50 Ur Leukocyte Esterase NEGATIVE (NEGATIVE) 10/08/16 09:50 Urine RBC 0-5 /HPF (0-5) 10/08/16 09:50 Urine WBC 0-3 /HPF (0-5) 10/08/16 09:50 Ur Squamous Epith Cells RARE Squamous (<= Few) 10/08/16 09:50 Amorphous Sediment Marked /LPF 10/08/16 09:50 Urine Bacteria Rare /HPF (None Seen) 10/08/16 09:50 Ur Microscopic Review INDICATED 10/08/16 09:50 Urine Culture Comments NOT INDICATED 10/08/16 09:50 Salicylates < 6.0 mg/dL 10/07/16 05:14 Urine Opiates Screen NEGATIVE (NEGATIVE) 10/07/16 06:04 Ur Oxycodone Screen NEGATIVE (NEGATIVE) 10/07/16 06:04 Urine Methadone Screen NEGATIVE (NEGATIVE) 10/07/16 06:04 Ur Propoxyphene Screen NEGATIVE (NEGATIVE) 10/07/16 06:04 Acetaminophen < 10 ug/mL (10-30) L 10/07/16 05:14 Ur Barbiturates Screen NEGATIVE (NEGATIVE) 10/07/16 06:04 Ur Tricyclics Screen NEGATIVE (NEGATIVE) 10/07/16 06:04 Ur Phencyclidine Scrn NEGATIVE (NEGATIVE) 10/07/16 06:04 Ur Amphetamine Screen NEGATIVE (NEGATIVE) 10/07/16 06:04 U Methamphetamines Scrn NEGATIVE (NEGATIVE) 10/07/16 06:04 U Benzodiazepines Scrn NEGATIVE (NEGATIVE) 10/07/16 06:04 Urine Cocaine Screen NEGATIVE (NEGATIVE) 10/07/16 06:04 U Cannabinoids Screen NEGATIVE (NEGATIVE) 10/07/16 06:04 Ethyl Alcohol 7.5 mg/dL 10/07/16 05:14 Serum Ketones MODERATE (NEGATIVE) H 10/08/16 05:36 - Procedures Procedures: Procedures INSERT INFUSION DEV IN R INT JUGULAR VEIN, PERC (04/21/16) INSERTION OF INFUSION DEV INTO SUP VENA CAVA, PERC APPROACH (09/07/16) INSERTION OF INFUSION DEVICE INTO R ATRIUM, PERC APPROACH (12/04/15) TRANSFUSE NONAUT RED BLOOD CELLS IN PERIPH VEIN, PERC (04/21/16) ULTRASONOGRAPHY OF RIGHT JUGULAR VEINS, GUIDANCE (04/21/16)
[2016-10-08] MEDS: PREGABALIN 25 MG CAPSULE PO SCH (20:27)
[2016-10-08] MEDS: PREGABALIN 100 MG CAPSULE PO SCH (20:27)
[2016-10-08] MEDS: clonazePAM 0.5 MG TABLET PO PRN (20:28)
[2016-10-08] MEDS ORDERED: ACETAMINOPHEN 325 MG TABLET PO ONE (20:29)
[2016-10-08 20:49] LABS: BUN - BLOOD UREA NITROGEN 14 mg/dL (6-20); CALCIUM 7.9 mg/dL (8.5-10.3); CARBON DIOXIDE - CO2 23 mmol/L (21-32); CHLORIDE 100 mmol/L (101-111); CREATININE 0.6 mg/dL (0.4-1.0); GFR - MDRD 114 (>89); GLUCOSE 300 mg/dL (70-100); POTASSIUM 3.5 mmol/L (3.5-5.0); SODIUM 134 mmol/L (135-145)
[2016-10-08 20:51] LABS: HEMOGLOBIN A1C 1.03 g/dL
[2016-10-08] MEDS: INSULIN REGULAR HUMAN 100 UNIT in SODIUM CHLORIDE 0.9% 100ML 99 ML IV SCH (20:58)
[2016-10-08] MEDS: INSULIN ASPART 300 UNIT/3 ML PEN SUBQ SCH ×2 (20:59→21:09)
[2016-10-08] MEDS: INSULIN GLARGINE 300 UNIT/3 ML PEN SUBQ SCH (21:10)
[2016-10-09 05:05] LABS: HCT - HEMATOCRIT 28.6 % (37.0-47.0); HGB - HEMOGLOBIN 9.4 g/dL (12.0-16.0); MEAN CORPUSCULAR HEMOGLOBIN 25.5 pg (27.0-31.0); MEAN CORPUSCULAR HGB CONC 32.9 g/dL (32.0-36.0); MEAN CORPUSCULAR VOLUME 77.4 fL (81.0-99.0); MEAN PLATELET VOLUME 7.7 fL (7.9-10.8); RED BLOOD COUNT 3.69 10^6/uL (4.20-5.40); RED CELL DISTRIBUTION WIDTH 15.8 % (12.0-15.0)
[2016-10-09 05:13] LABS: CALCIUM 8.2 mg/dL (8.5-10.3); CREATININE 0.5 mg/dL (0.4-1.0); POTASSIUM 3.1 mmol/L (3.5-5.0)
[2016-10-09] MEDS: clonazePAM 0.5 MG TABLET PO PRN ×2 (06:04→19:58)
[2016-10-09] MEDS: HYOSCYAMINE SL 0.125 MG TABLET SL SCH ×3 (06:04→16:43)
[2016-10-09] MEDS: SODIUM CHLORIDE 0.45% 1,000 ML IV SCH ×2 (06:55→09:31)
[2016-10-09] MEDS: INSULIN ASPART 300 UNIT/3 ML PEN SUBQ SCH ×5 (08:03→20:49)
[2016-10-09] MEDS: AMOX/CLAV 875 MG/125 MG TABLET PO SCH ×2 (08:42→20:48)
[2016-10-09] MEDS ORDERED: POTASSIUM CHLORIDE 20 MEQ TABLET PO ONE (08:42)
[2016-10-09] MEDS: PREGABALIN 25 MG CAPSULE PO SCH ×2 (08:43→20:48)
[2016-10-09] MEDS: PREGABALIN 100 MG CAPSULE PO SCH ×2 (08:43→20:48)
[2016-10-09] MEDS: INSULIN GLARGINE 300 UNIT/3 ML PEN SUBQ SCH ×2 (08:53→20:48)
[2016-10-09] MEDS ORDERED: POTASSIUM CHLORIDE 20 MEQ TABLET PO SCH (09:00)
[2016-10-09] MEDS: hydrOXYzine PAMOATE 25 MG CAPSULE PO SCH ×2 (12:51→23:09)
[2016-10-09 13:19] LABS: BILIRUBIN,URINE NEGATIVE (NEGATIVE); PH,URINE 8.5 PH (5.0-7.5)
[2016-10-09 13:24] LABS: UA CHARGE (STRIP ONLY) YES; UR CULTURE IF IND NOT INDICATED
[2016-10-09] MEDS: ACETAMINOPHEN 325 MG TABLET PO PRN (15:18)
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
[2016-10-10 05:30] LABS: BASOPHILS % (AUTO) 0.4 %; EOSINOPHILS # (AUTO) 0.2 10^3/uL (0.0-0.7); EOSINOPHILS % (AUTO) 2.4 %; HCT - HEMATOCRIT 31.7 % (37.0-47.0); HGB - HEMOGLOBIN 10.2 g/dL (12.0-16.0); LYMPHOCYTES # (AUTO) 2.5 10^3/uL (1.5-3.5); LYMPHOCYTES % (AUTO) 35.5 %; MEAN CORPUSCULAR HEMOGLOBIN 25.2 pg (27.0-31.0); MEAN CORPUSCULAR VOLUME 78.6 fL (81.0-99.0); MEAN PLATELET VOLUME 7.8 fL (7.9-10.8); MONOCYTES # (AUTO) 0.5 10^3/uL (0.0-1.0); MONOCYTES % (AUTO) 6.6 %; NEUTROPHILS # (AUTO) 3.9 10^3/uL (1.5-6.6); NEUTROPHILS % (AUTO) 55.1 %; RED BLOOD COUNT 4.04 10^6/uL (4.20-5.40); RED CELL DISTRIBUTION WIDTH 15.4 % (12.0-15.0); UNCORRECTED WHITE BLOOD COUNT 7.1 x10^3/uL; WHITE BLOOD COUNT 7.1 x10^3/uL (4.8-10.8)
[2016-10-10 05:44] LABS: BUN - BLOOD UREA NITROGEN 11 mg/dL (6-20); CALCIUM 8.9 mg/dL (8.5-10.3); CARBON DIOXIDE - CO2 29 mmol/L (21-32); CHLORIDE 101 mmol/L (101-111); GLUCOSE 247 mg/dL (70-100); MAGNESIUM 1.9 mg/dL (1.7-2.8); POTASSIUM 3.5 mmol/L (3.5-5.0); SODIUM 136 mmol/L (135-145)
[2016-10-10 05:50] LABS: CREATININE < 0.3 mg/dL (0.4-1.0); GFR - MDRD 253 (>89)
[2016-10-10] MEDS: HYOSCYAMINE SL 0.125 MG TABLET SL SCH ×3 (06:27→15:25)
[2016-10-10] MEDS: clonazePAM 0.5 MG TABLET PO PRN (06:27)
[2016-10-10] MEDS ORDERED: POTASSIUM CHLORIDE 20 MEQ TABLET PO ONE (06:36)
[2016-10-10] MEDS: INSULIN ASPART 300 UNIT/3 ML PEN SUBQ SCH ×2 (08:21→12:06)
[2016-10-10] MEDS: AMOX/CLAV 875 MG/125 MG TABLET PO SCH (08:22)
[2016-10-10] MEDS: INSULIN GLARGINE 300 UNIT/3 ML PEN SUBQ SCH (08:22)
[2016-10-10] MEDS: PREGABALIN 100 MG CAPSULE PO SCH (08:23)
[2016-10-10] MEDS: PREGABALIN 25 MG CAPSULE PO SCH (08:29)
[2016-10-10] MEDS ORDERED: NICOTINE 21 MG PATCH TOP SCH (09:00)
[2016-10-10] MEDS: ACETAMINOPHEN 325 MG TABLET PO PRN (09:13)
[2016-10-10] MEDS ORDERED: IBUPROFEN 100 MG/5 ML UDC PO PRN (11:23)
[2016-10-10] MEDS: hydrOXYzine PAMOATE 25 MG CAPSULE PO SCH (12:16)
--- NOTE | 2016-10-10 14:54 | Discharge Plan ---
Discharge Plan Disposition: 01 Home, Self Care Condition: Stable Diet: Diabetic Activity Restrictions: Activity as Tolerated Shower Restrictions: No Driving Restrictions: Yes Weight Bearing: Full Weight No Smoking: If you smoke, Please STOP! Call for help.
[2016-10-10 15:13] VITALS: BP 129/66
--- NOTE | 2016-10-10 23:32 | DISCHARGE SUMMARY ---
DATE OF ADMISSION: 10/07/2016 DATE OF DISCHARGE: 10/10/2016 ADMISSION DIAGNOSIS: Diabetic ketoacidosis. HOSPITAL COURSE AND DISCHARGE DIAGNOSES 1. Diabetic ketoacidosis. This is one of multiple episodes of DKA for this patient, who is noncompliant with her insulin and diet. Unfortunately she is homeless and has erratic care. The patient presented with altered mental status and was found to be in DKA. She was placed on a protocol for DKA including insulin drip, saline, and eventual transition over to her preadmission insulin and diet. 2. Psychiatric disorder. When the patient's lethargy improved and she was able to take p.o. medications, all of her preadmission medications were resumed. 3. Chronic pain syndrome. During the last admission 1 month ago, she had significant abdominal pain and required transfer to the [facility] for evaluation of an enlarged pancreas and abdominal lymph nodes. No biopsy was performed. She was found to have strep bacteremia and discharged with antibiotics. During THIS entire admission, there were no complaints of abdominal pain, and her antibiotics were continued p.o. The patient did have complaints of headache intermittently, which she has frequently. This responded to Tylenol minimally, did respond to narcotics but that caused sedation, and nonsteroidal antiinflammatories did not give relief. 4. Prior drug use. During this admission, there were no issues with detoxification or active drug abuse. CONDITION AT DISCHARGE: Stable. MEDICATIONS AT DISCHARGE: All the same as preadmission. FOLLOWUP: As per previous plan, unknown clinic or PCP. JOB #: [id number] EXT JOB #:[id number] BRYANNA
== END 2016-10-10 15:00 | disposition home or self-care (01) | DRG 638 ==
LOC: EDUNIT# → ED 04:26 → ICU 07:32
PROVIDERS: ADMIT Internal Medicine; ATTEND Internal Medicine
DX: E10.11 Type 1 diabetes mellitus with ketoacidosis with coma (principal); N17.9 Acute kidney failure, unspecified; E87.1 Hypo-osmolality and hyponatremia; E87.6 Hypokalemia; E87.5 Hyperkalemia; R00.0 Tachycardia, unspecified; D64.9 Anemia, unspecified; F17.200 Nicotine dependence, unspecified, uncomplicated; F60.3 Borderline personality disorder; G89.29 Other chronic pain; R10.9 Unspecified abdominal pain; T38.3X6A Underdosing of insulin and oral hypoglycemic [antidiabetic] drugs, initial encounter; Z91.138 Patient's unintentional underdosing of medication regimen for other reason; Z79.4 Long term (current) use of insulin; Z79.891 Long term (current) use of opiate analgesic; Z79.2 Long term (current) use of antibiotics; Z79.899 Other long term (current) drug therapy; Z87.898 Personal history of other specified conditions; Z59.0 Homelessness
CPT/HCPCS: 36415; 36556; 36600; 51702; 71010; 80048; 80053; 80306; 80307; 80320; 80329; 81001; 81003; 82009; 82150; 82270; 82803; 82947; 83036; 83690; 83735; 83930; 84100; 84132; 84295; 84478; 84484; 84702; 85025; 87040; 87086; 87150; 93005; 93306; 94640; 96361; 96374; 99285; 99291

== ENCOUNTER 2016-12-10 13:44 | Outpatient (CLI) | payer MEDICAID | END 2016-12-10 13:45 | disposition critical access hospital (66) | LOC: EMS 13:44 | PROVIDERS: ATTEND Surgery | DX: R73.09 Other abnormal glucose (principal); R11.2 Nausea with vomiting, unspecified | CPT/HCPCS: A0425; A0429 ==

== ENCOUNTER 2016-12-10 14:03 | Inpatient (IN) | payer MEDICAID ==
[2016-12-10] MEDS ORDERED: SODIUM CHLORIDE 0.9% 1,000 ML IV ONE ×2 (14:15)
[2016-12-10 14:38] LABS: VBG PH 7.016 (7.31-7.41); VBG TOTAL CO2 4.3 mmol/L (24-29)
[2016-12-10 14:39] LABS: VBG BASE EXCESS -25.4 mmol/L (-2 - +2); VBG OXYGEN SATURATION 98.7 % (60-80)
[2016-12-10 14:40] LABS: BASOPHILS # (AUTO) 0.1 10^3/uL (0.0-0.1); BASOPHILS % (AUTO) 0.9 %; HCT - HEMATOCRIT 46.4 % (37.0-47.0); HGB - HEMOGLOBIN 13.6 g/dL (12.0-16.0); LYMPHOCYTES # (AUTO) 2.2 10^3/uL (1.5-3.5); LYMPHOCYTES % (AUTO) 14.8 %; MEAN CORPUSCULAR HEMOGLOBIN 24.5 pg (27.0-31.0); MEAN CORPUSCULAR HGB CONC 29.4 g/dL (32.0-36.0); MEAN CORPUSCULAR VOLUME 83.4 fL (81.0-99.0); MEAN PLATELET VOLUME 8.4 fL (7.9-10.8); MONOCYTES # (AUTO) 0.4 10^3/uL (0.0-1.0); MONOCYTES % (AUTO) 2.4 %; NEUTROPHILS # (AUTO) 12.2 10^3/uL (1.5-6.6); NEUTROPHILS % (AUTO) 81.9 %; RED BLOOD COUNT 5.56 10^6/uL (4.20-5.40); RED CELL DISTRIBUTION WIDTH 16.7 % (12.0-15.0); UNCORRECTED WHITE BLOOD COUNT 14.9 x10^3/uL; WHITE BLOOD COUNT 14.9 x10^3/uL (4.8-10.8)
[2016-12-10 14:49] LABS: BILIRUBIN,URINE NEGATIVE (NEGATIVE); PH,URINE 5.5 PH (5.0-7.5)
[2016-12-10 14:51] LABS: UA w/ MICROSCOPIC CHARGE YES
--- NOTE | 2016-12-10 14:51 | ED Physician Documentation ---
PD HPI NVD - Stated complaint Stated Complaint: DM - Chief complaint Chief Complaint: General - History obtained from History obtained from: Patient - History of Present Illness Timing - onset: Yesterday Timing - duration: Days (2) Timing - details: Gradual onset, Still present Associated symptoms: Abdominal pain (nausea and some vomiting), Loss of appetite. No: Fever, Chest pain, Dysuria, Hematuria Contributing factors: Diabetes. No: Sick contact, Bad food Improved by: No: Vomiting Worsened by: Eating Similar symptoms before: Diagnosis (DKA) Recently seen: Emergency Dept, Admitted (couple months ago with same) Review of Systems Constitutional: reports: Chills, Myalgias. denies: Fever Nose: reports: Congestion. denies: Rhinorrhea / runny nose Throat: denies: Sore throat Cardiac: denies: Chest pain / pressure, Palpitations Respiratory: reports: Dyspnea. denies: Cough GI: reports: Abdominal Pain, Nausea, Vomiting. denies: Abdominal Swelling, Diarrhea : denies: Dysuria, Frequency Skin: denies: Rash, Lesions Musculoskeletal: reports: Back pain. denies: Extremity swelling Neurologic: reports: Generalized weakness. denies: Focal weakness, Numbness, Near syncope Endocrine: reports: Polydypsia. denies: Weight loss Immunocompromised: denies: Immunocompromised PD PAST MEDICAL HISTORY - Past Medical History Cardiovascular: Hypertension, High cholesterol, Peripheral Vascular Disease, MT Respiratory: None Neuro: Peripheral neuropathy Endocrine/Autoimmune: Type 1 diabetes GI: Pancreatitis REVENUE OFFICER: None : None HEENT: None Psych: Depression, Anxiety, Panic attacks Musculoskeletal: Fibromyalgia Derm: None - Past Surgical History Past Surgical History: Yes General: Cholecystectomy HEENT: Tonsil/Adenoidectomy - Present Medications Home Medications: Ambulatory Orders Medication Instructions Recorded Confirmed Insulin Glargine,Hum.rec.anlog 70 unit SUBQ BID #2 vial 07/09/16 12/10/16 [Lantus] Insulin Aspart [Novolog Flexpen] 20 unit SQ TIDWM 09/21/16 12/10/16 Hydroxyzine Pamoate 50 mg PO Q6HR 10/07/16 12/10/16 Hyoscyamine Sulfate 0.125 mg SL Q6HR PRN 10/07/16 12/10/16 Pregabalin [Lyrica] 150 mg PO BID 10/07/16 12/10/16 Acetaminophen [Tylenol] 650 mg PO Q4HR PRN #0 tablet 10/10/16 12/10/16 - Allergies Allergies/Adverse Reactions: Allergies Allergy/AdvReac Type Severity Reaction Status Date / Time codeine Allergy Hives Verified 12/10/16 14:12 hydrocodone Allergy Hives Verified 12/10/16 14:12 milk AdvReac Cramps Verified 12/10/16 14:12 nitrofurantoin AdvReac Headache Verified 12/10/16 14:12 [From Macrobid] PAPER TAPE AdvReac Unknown Uncoded 12/10/16 14:12 - Social History Does the pt smoke?: Yes Smoking Status: Current every day smoker Does the pt drink ETOH?: No Does the pt have substance abuse?: No - Family History Family history: reports: Non contributory - Immunizations Immunizations are current?: Yes - POLST Patient has POLST: No PD ED PE NORMAL - Vitals Vital signs reviewed: Yes - General General: Alert and oriented X 3, Well developed/nourished, Other (anxious and complains of general pains.) - HEENT HEENT: Ears normal, Pharynx benign - Neck Neck: Supple, no meningeal sign, No adenopathy - Cardiac Cardiac: RRR, No murmur - Respiratory Respiratory: Clear bilaterally - Abdomen Abdomen: Normal bowel sounds, Soft, Non distended, No organomegaly, Other (mild mid abd tenderness. ) - Female Female : Deferred - Rectal Rectal: Deferred - Back Back: No CVA TTP - Derm Derm: Normal color, Warm and dry - Extremities Extremities: No tenderness to palpate, Normal ROM s pain, No edema, No calf tenderness / cord - Neuro Neuro: Alert and oriented X 3, No motor deficit, Normal speech - Psych Psych: Normal mood Results - Vitals Vitals: Vital Signs - 24 hr 12/10/16 14:09 Temperature 36.4 C L Heart Rate 51 L Respiratory 20 Rate Blood Pressure 134/77 H O2 Saturation 100 Oxygen O2 Source [Without Activity] Room air O2 Source Room air - Labs Labs: Laboratory Tests 12/10/16 12/10/16 12/10/16 14:25 14:25 14:25 WBC 14.9 H RBC 5.56 H Hgb 13.6 Hct 46.4 MCV 83.4 MCH 24.5 L MCHC 29.4 L RDW 16.7 H Plt Count 477 H MPV 8.4 Neut # 12.2 H Lymph # 2.2 Trinity # 0.4 Eos # 0.0 Baso # 0.1 Absolute Nucleated RBC 0.01 Nucleated RBC % 0.0 Manual Slide Review Indicated RBC Morph Micro Appear 2+ ANISOCYTOSIS VBG pH 7.016 L VBG pCO2 15.2 L VBG pO2 198.2 H VBG HCO3 3.8 L VBG Total CO2 4.3 L VBG O2 Saturation 98.7 H VBG Base Excess -25.4 L Sodium 124 L Potassium 5.5 H Chloride 89 L Carbon Dioxide 6 L* Anion Gap 29.0 H BUN 39 H Creatinine 1.1 H Estimated GFR (MDRD) 57 L Glucose 539 H* Glycated Hemoglobin Estim Average Glucose Calcium 8.8 Magnesium Total Bilirubin 1.9 H AST 40 ALT 33 Alkaline Phosphatase 200 H Total Protein 8.4 H Albumin 4.4 Globulin 4.0 Albumin/Globulin Ratio 1.1 Lipase 16 L Urine Color Urine Clarity Urine pH Ur Specific [place] Urine Protein Urine Glucose (UA) Urine Ketones Urine Occult Blood Urine Nitrite Urine Bilirubin Urine Urobilinogen Ur Leukocyte Esterase Urine RBC Urine WBC Ur Squamous Epith Cells Urine Bacteria Ur Microscopic Review Urine Culture Comments Urine Opiates Screen Ur Oxycodone Screen Urine Methadone Screen Ur Propoxyphene Screen Ur Barbiturates Screen Ur Tricyclics Screen Ur Phencyclidine Scrn Ur Amphetamine Screen U Methamphetamines Scrn U Benzodiazepines Scrn Urine Cocaine Screen U Cannabinoids Screen Serum Ketones MODERATE H 12/10/16 12/10/16 12/10/16 14:25 14:25 14:30 WBC RBC Hgb Hct MCV MCH MCHC RDW Plt Count MPV Neut # Lymph # Trinity # Eos # Baso # Absolute Nucleated RBC Nucleated RBC % Manual Slide Review RBC Morph Micro Appear VBG pH VBG pCO2 VBG pO2 VBG HCO3 VBG Total CO2 VBG O2 Saturation VBG Base Excess Sodium Potassium Chloride Carbon Dioxide Anion Gap BUN Creatinine Estimated GFR (MDRD) Glucose Glycated Hemoglobin 13.3 H Estim Average Glucose 335 H Calcium Magnesium 2.2 Total Bilirubin AST ALT Alkaline Phosphatase Total Protein Albumin Globulin Albumin/Globulin Ratio Lipase Urine Color YELLOW Urine Clarity HAZY Urine pH 5.5 Ur Specific [place] 1.025 Urine Protein TRACE Urine Glucose (UA) 500 H Urine Ketones >=80 H Urine Occult Blood TRACE-LYSE Urine Nitrite NEGATIVE Urine Bilirubin NEGATIVE Urine Urobilinogen 0.2 (NORMAL) Ur Leukocyte Esterase NEGATIVE Urine RBC 0-5 Urine WBC 0-3 Ur Squamous Epith Cells MOD Squamous H Urine Bacteria Moderate H Ur Microscopic Review INDICATED Urine Culture Comments NOT INDICATED Urine Opiates Screen Ur Oxycodone Screen Urine Methadone Screen Ur Propoxyphene Screen Ur Barbiturates Screen Ur Tricyclics Screen Ur Phencyclidine Scrn Ur Amphetamine Screen U Methamphetamines Scrn U Benzodiazepines Scrn Urine Cocaine Screen U Cannabinoids Screen Serum Ketones 12/10/16 14:30 WBC RBC Hgb Hct MCV MCH MCHC RDW Plt Count MPV Neut # Lymph # Trinity # Eos # Baso # Absolute Nucleated RBC Nucleated RBC % Manual Slide Review RBC Morph Micro Appear VBG pH VBG pCO2 VBG pO2 VBG HCO3 VBG Total CO2 VBG O2 Saturation VBG Base Excess Sodium Potassium Chloride Carbon Dioxide Anion Gap BUN Creatinine Estimated GFR (MDRD) Glucose Glycated Hemoglobin Estim Average Glucose Calcium Magnesium Total Bilirubin AST ALT Alkaline Phosphatase Total Protein Albumin Globulin Albumin/Globulin Ratio Lipase Urine Color Urine Clarity Urine pH Ur Specific [place] Urine Protein Urine Glucose (UA) Urine Ketones Urine Occult Blood Urine Nitrite Urine Bilirubin Urine Urobilinogen Ur Leukocyte Esterase Urine RBC Urine WBC Ur Squamous Epith Cells Urine Bacteria Ur Microscopic Review Urine Culture Comments Urine Opiates Screen NEGATIVE Ur Oxycodone Screen NEGATIVE Urine Methadone Screen NEGATIVE Ur Propoxyphene Screen NEGATIVE Ur Barbiturates Screen NEGATIVE Ur Tricyclics Screen NEGATIVE Ur Phencyclidine Scrn NEGATIVE Ur Amphetamine Screen NEGATIVE U Methamphetamines Scrn POSITIVE H U Benzodiazepines Scrn NEGATIVE Urine Cocaine Screen NEGATIVE U Cannabinoids Screen NEGATIVE Serum Ketones - Rads (name of study) chest Radiology: Prelim report reviewed, EMP read contemporaneously (good central line placement; no PTX nor effusion. ) PD MEDICAL DECISION MAKING - ED course Complexity details: considered differential (Difficult IV access and had peripheral done by U/S which was hurting her so she pulled it out. Anesth consulted and did central line. Awaiting good access, the patient was given IM meds and subcut insulin. Once IV established, then did IV fluids and meds. She is being admitted to ICU for DKA. ), d/w patient - Critical Care Time(min): 45 Time Includes: Direct patient care, Reassess patient, Document care, Coordinate care, See progress note Data interpretation: Labs, ABG, CXR Procedures included in critical care time: Peripheral IV Departure - Departure Disposition: 66 [facility] DC/Xfer Clinical Impression: DKA, type 1 Qualifiers: Diabetes mellitus complication detail: without coma Qualified Code(s): E10.10 - Type 1 diabetes mellitus with ketoacidosis without coma Condition: Stable Record reviewed to determine appropriate education?: Yes
[2016-12-10 14:54] LABS: ALBUMIN/GLOBULIN RATIO 1.1 (1.0-2.2); BILIRUBIN,TOTAL 1.9 mg/dL (0.2-1.0); BUN - BLOOD UREA NITROGEN 39 mg/dL (6-20); CALCIUM 8.8 mg/dL (8.5-10.3); CHLORIDE 89 mmol/L (101-111); CREATININE 1.1 mg/dL (0.4-1.0); GFR - MDRD 57 (>89); LIPASE 16 U/L (22-51); POTASSIUM 5.5 mmol/L (3.5-5.0); SODIUM 124 mmol/L (135-145); TOTAL PROTEIN 8.4 g/dL (6.7-8.2)
[2016-12-10 14:55] LABS: CARBON DIOXIDE - CO2 6 mmol/L (21-32)
[2016-12-10 14:56] LABS: GLUCOSE 539 mg/dL (70-100)
[2016-12-10 14:56] LABS: WBC,URINE 0-3 /HPF (0-5)
[2016-12-10 14:57] LABS: UR CULTURE IF IND NOT INDICATED
[2016-12-10] MEDS ORDERED: SODIUM CHLORIDE FLUSH 0.9% 10 ML SYRINGE IVP ONE ×4 (14:59→16:46)
[2016-12-10] MEDS ORDERED: KETOROLAC 60 MG/2 ML VIAL IVP STA (15:01)
[2016-12-10] MEDS ORDERED: INSULIN REGULAR HUMAN 100 UNIT in SODIUM CHLORIDE 0.9% 100ML 99 ML IV STA (15:02)
[2016-12-10] MEDS ORDERED: INSULIN REGULAR HUMAN 100 UNIT/1 ML 10 ML MDV IVP STA (15:02)
[2016-12-10] MEDS ORDERED: ACETAMINOPHEN 1,000 MG/100 ML 100 ML IV STA (15:03)
[2016-12-10] MEDS ORDERED: ONDANSETRON 4 MG/2 ML VIAL IVP STA (15:03)
[2016-12-10] MEDS ORDERED: HYDROmorphone 0.5 MG/0.5 ML SYRINGE IVP STA (15:53)
[2016-12-10] MEDS ORDERED: ONDANSETRON 4 MG/2 ML VIAL IVP PRN (15:57)
[2016-12-10] MEDS ORDERED: ONDANSETRON ODT 4 MG TABLET TL PRN (15:57)
[2016-12-10] MEDS ORDERED: SODIUM CHLORIDE FLUSH 0.9% 10 ML SYRINGE IVP PRN (15:57)
[2016-12-10] MEDS ORDERED: ONDANSETRON 4 MG/2 ML VIAL ONE (16:00)
[2016-12-10] MEDS ORDERED: HYDROmorphone 1 MG/ML SYRINGE ONE ×2 (16:00→17:39)
[2016-12-10] MEDS ORDERED: KETOROLAC 30 MG/ML VIAL ONE (16:00)
[2016-12-10] MEDS ORDERED: ACETAMINOPHEN 1,000 MG/100 ML 100 ML IV ONE (16:00)
[2016-12-10] MEDS ORDERED: INSULIN REGULAR HUMAN 100 UNIT/1 ML 10 ML MDV ONE ×3 (16:01→17:40)
[2016-12-10] MEDS ORDERED: INSULIN REGULAR HUMAN 100 UNIT in SODIUM CHLORIDE 0.9% 100ML 99 ML IV SCH ×2 (16:04→19:27)
[2016-12-10] MEDS ORDERED: HYDROmorphone 0.5 MG/0.5 ML SYRINGE IM STA (16:12)
[2016-12-10] MEDS ORDERED: INSULIN REGULAR HUMAN 100 UNIT/1 ML 10 ML MDV SUBQ STA (16:13)
[2016-12-10] MEDS ORDERED: ONDANSETRON 4 MG/2 ML VIAL IM STA (16:13)
[2016-12-10] MEDS ORDERED: KETOROLAC 30 MG/ML VIAL IM STA (16:15)
[2016-12-10 16:31] LABS: HEMOGLOBIN A1C 1.83 g/dL
[2016-12-10 17:23] LABS: VBG BASE EXCESS -27.1 mmol/L (-2 - +2); VBG OXYGEN SATURATION 96.9 % (60-80); VBG PH 6.942 (7.31-7.41); VBG TOTAL CO2 4.3 mmol/L (24-29)
--- NOTE | 2016-12-10 18:43 | XRAY Preliminary Report ---
Exam: XR CHEST 1 VIEW IMPRESSION: Right IJ line to the cavoatrial junction, otherwise unremarkable single view chest. [facility] SITE ID: [id number]
--- NOTE | 2016-12-10 18:45 | XRAY Report ---
EXAM: CHEST RADIOGRAPHY EXAM DATE: 12/10/2016 05:32 PM. CLINICAL HISTORY: Post central line placement. COMPARISON: 09/09/2016. TECHNIQUE: 1 view. FINDINGS: Lungs/Pleura: No focal opacities evident. No pleural effusion. No pneumothorax. Mediastinum: Within exam limitations, the cardiomediastinal contour is normal. Other: No bony abnormalities identified. Right IJ line to the cavoatrial junction. IMPRESSION: Right IJ line to the cavoatrial junction, otherwise unremarkable single view chest. [facility] Referring Provider Line: [phone] SITE ID: [id number]
[2016-12-10] MEDS: SODIUM CHLORIDE 0.9% 1,000 ML IV SCH (18:58)
[2016-12-10] MEDS: hydrOXYzine PAMOATE 25 MG CAPSULE PO SCH (19:41)
[2016-12-10] MEDS: NICOTINE 21 MG PATCH TOP SCH (19:42)
[2016-12-10 20:14] LABS: BUN - BLOOD UREA NITROGEN 51 mg/dL (6-20); CALCIUM 7.8 mg/dL (8.5-10.3); CHLORIDE 96 mmol/L (101-111); CREATININE 1.1 mg/dL (0.4-1.0); GFR - MDRD 57 (>89); GLUCOSE 351 mg/dL (70-100); MAGNESIUM 2.1 mg/dL (1.7-2.8); POTASSIUM 4.5 mmol/L (3.5-5.0); SODIUM 125 mmol/L (135-145)
[2016-12-10 20:15] LABS: CARBON DIOXIDE - CO2 6 mmol/L (21-32)
[2016-12-10 20:20] LABS: PHOSPHORUS 5.7 mg/dL (2.5-4.6)
[2016-12-10] MEDS: PREGABALIN 25 MG CAPSULE PO SCH (20:36)
[2016-12-10] MEDS: PREGABALIN 100 MG CAPSULE PO SCH (20:37)
[2016-12-10] MEDS: HYOSCYAMINE SL 0.125 MG TABLET SL PRN (20:37)
[2016-12-10] MEDS ORDERED: BENZOCAINE/MENTHOL LOZENGE MM ONE (20:44)
[2016-12-10] MEDS: BENZOCAINE/MENTHOL LOZENGE MM PRN ×2 (20:44→22:23)
[2016-12-10] MEDS: SODIUM CHLORIDE FLUSH 0.9% 10 ML SYRINGE IVP SCH (22:05)
[2016-12-10] MEDS ORDERED: NS W IV ONE (23:36)
[2016-12-10] MEDS ORDERED: KCL IV ONE (23:36)
[2016-12-11] MEDS: D5.45NS W/20 MEQ KCL 1,000 ML IV SCH ×2 (00:02→07:00)
[2016-12-11] MEDS: hydrOXYzine PAMOATE 25 MG CAPSULE PO SCH ×4 (00:02→17:06)
[2016-12-11 00:13] LABS: CALCIUM 7.9 mg/dL (8.5-10.3); CREATININE 1.1 mg/dL (0.4-1.0); POTASSIUM 4.5 mmol/L (3.5-5.0)
[2016-12-11] MEDS: SODIUM CHLORIDE 0.9% 1,000 ML IV SCH (00:15)
[2016-12-11] MEDS: BENZOCAINE/MENTHOL LOZENGE MM PRN ×5 (01:32→20:34)
[2016-12-11] MEDS ORDERED: NS W/20 MEQ KCL 1,000 ML IV SCH (02:00)
[2016-12-11] MEDS: HYOSCYAMINE SL 0.125 MG TABLET SL PRN ×2 (02:33→20:50)
--- NOTE | 2016-12-11 02:40 | HISTORY & PHYSICAL EXAMINATION ---
DATE OF ADMISSION: 12/10/2016 PRIMARY CARE PROVIDER: None. ADMITTING PROVIDER: Jillian Sandhu MD CHIEF COMPLAINT: Nausea and vomiting with pain "all over in my body, and in my stomach." HISTORY OF PRESENT ILLNESS: This unfortunate young white female who is 36 years of age, is a long-ter m methamphetamine user, and an opiate abuser. She came from [place] after running out of [employer]. She has already lost custody of her children and they were living with her father here in [facility]. She ostensibly came here to reestablish a relationship with her kids and see them again. When she came to [facility] in 2014, she moved in with her father and stepmother since they have custody of her 2 living children. She has had 22 pregnancies and 12 miscarriages and 8 abortions. This situat ion became untenable for her father and stepmother. There were numerous episodes of emotional outburs ts, erratic behavior, and ongoing drug use in the form of methamphetamines and most likely opioid abu se. Numerous episodes of having the police called to his home. Accompanying this from 2014 onward, méndez s been recurrent admissions to this hospital for abdominal pain, nausea and vomiting, hyperglycemia a nd DKA. Sometimes her abdominal pain is attributed to opiate withdrawal. Sometimes it is attributed t o pancreatitis. She will have multiple tox screens positive for recreational substances. She was last admitted to our hospital in September. Again, another episode of abdominal pain in DKA. Prior to that, she was admitted in August. With that admission, she had a CT of the abdomen showing new lymphadenopath y and a new inflammation of the pancreatic head. Because there was a possibility of lymphoma, the jazmyne ieedison was transferred to . She was felt to have reactive lymphadenopathy, no lymphoma, and chronic a bdominal pain from pancreatitis, as well as intermittent DKA. With her September admission, she was jaziel ozzie for her DKA, in the usual fashion, and then returned to living in her tent behind [facility]. In the intervening years of her living with her father, and then becoming homeless, her father i n approximately 02/2015, so she only was able to live with him for that year. After her father , her stepmother threw her out of the house and she still maintains custody of her daughters. The patie nt says that the last time she saw her daughters was about a month ago and it was a good visit. Nereida hough the patient's behavior has resulted in her being fired from multiple practices, she no longer gets medications on a regular basis. She no longer gets opiates or prescription medications on a regular basis. When I asked her where she gets her insulin, she says that she has a storage locker, and that she has a large deposit of insulin vials in a storage locker that she uses intermittently. She is pre tty vague about whether she is taking her Lantus right now or not. In any case, he began having generalized abdominal pain, aching all over. She started having nausea a nd vomiting and has come in to the emergency room for treatment. She is afebrile at 36.4. Pulse is 51 . Blood pressure 134/77. In the emergency room, she received subcutaneous insulin and IV push insulin . She did receive some Dilaudid IM, as well as Dilaudid IV and while IV fluids were order, she never really received any because she pulled out her IV. A subsequent central line was placed and she was t ransferred to the ICU. She is hyponatremic, hyperkalemic with a BUN of 39 and creatinine of 1.1. Gluc ose is 539. Anion gap is 29. Lactic acid has not been done yet. PAST MEDICAL HISTORY: 1. Type 1 diabetes mellitus since approximately 1999. Uncontrolled. Not compliant with medical regime n and has long-term complications of peripheral vascular disease and ischemic toes, chronic kidney di sease, and neuropathy. 2. Chronic pain syndrome from fibromyalgia. 3. Chronic sinus tachycardia. 4. Hypertension. 5. Psychiatric disease, an unknown diagnosis. 6. Short-term memory loss. During her stay here on [facility], this patient has had multiple epis odes of hypothermia that were quite severe. Her memory loss is becoming more and more problematic as time has gone on. This results in a perseverating speech pattern. She will ask you for the same thing repetitively numerous times and forget that she has already asked. Nursing staff has to spend quite a bit of time prompting her and controlling her behavior. 7. G22, P1-0-21-1. 8. Cyst removed from left mormonism age 6. 9. Tonsillectomy at age 9. 10. Cholecystectomy age 16. 11. Valvular heart disease with moderate pulmonary hypertension, moderate tricuspid regurgitation and a right ventricle that was dilated on echo December 2015. 12. Chronic right foot ischemia. 13. Probable chronic pancreatitis with reactive lymphadenopathy. ALLERGIES: SHE IS ALLERGIC TO: 1. CODEINE. 2. HYDROCODONE. 3. MACROBID. MEDICATIONS: In the way distant past where to. 1. Tylenol. 2. Hydroxyzine. 3. Hyoscyamine. 4. Lantus. 5. NovoLog FlexPen. 6. Lyrica. Again, she says that she does not have a doctor, other than when she gets with her encounters in the emergency room or through her stays here in the hospital, it is not clear if she gets any medication at all. SOCIAL HISTORY: She was living in [place], [place], incarcerated there, lost custody of her child. Th is was in [id number]. When she got out of prison, she came to live with her father and stepmother as abo ve. She has polysubstance abuse in the form of narcotics, methamphetamines, cannabis. She used to be , but last saw her probably in 2012 that she can remember. Highest rate of education w as randy year in high school. She is currently homeless. Living in a tent behind [facility]. She has been homeless since approximately 02/2016 or 01/2016. She started smoking at the age of 9. Smokes méndez lf a pack per day since then. Occasionally, able to wean down to 3-4 cigarettes a month. FAMILY HISTORY: Dad of complications of heart failure, stroke, coronary artery disease, diabetes mellitus, and ischemic cardiomyopathy. Mom's health history is unknown. In the past, the patient had stated that mom was an alcoholic and a pathological liar. No siblings. As far she knows her daughter is healthy. One daughter is a daughter, the other daughter is adopted, both daughters live wit h her stepmother. REVIEW OF SYSTEMS: Mainly predominant for hurting all over. ENT: She has bad teeth, bad molars. She says vision is sometimes bad. She has headaches all time. Occ asional ringing in her ears. PULMONARY: Cough sometimes. Not all the time. Denies any hemoptysis. She denies any recent chest harry estion, chest pain. CARDIAC: Denies edema, orthopnea. Occasionally, gets chest pain. It happens at rest or with anxiety. Since she is very minimally active and spends a lot of time just hanging out in her tent, she says g[place] cannot really tell me how far she can walk. She can get from [employer] to the back part of [employer] which is 50-60 yards slowly. GASTROINTESTINAL: Intermittent nausea and vomiting, intermittent episodes of abdominal pain. She nova es blood in her stool. Every once in a while she will get diarrhea. Does not get anything worse. JOINTS: Always hurt. She says that she has fibromyalgia. With the cold weather coming on, it means he r joint hurts even worse. Her feet have hurt her for now for over a year. She has had chronic toe is chemia for quite some time. SKIN: Always itches. She always feels like there are things crawling underneath it. PSYCHIATRIC: "I have a mental disorder." Sometimes she says she is bipolar. Sometimes she says she is depressed. Sometimes she feels like she has ADHD. She is not suicidal. PESTICIDE USE MEDICAL COORDINATOR: She acknowledges mental deterioration, acknowledges the severe memory loss. She does not remembe r having seizures. PHYSICAL EXAMINATION: VITAL SIGNS: On examination, she is seen in ICU after being transferred there from the ER. She has a liter bag of saline hanging and has not been infused yet. She has just gotten her new central line. T emperature is 97.8, pulse is 128, blood pressure 134/75, 100% on room air. GENERAL: Awake, alert, has a straw in her mouth and is begging for ice chips or food. She is disheveled, sunburned. HEAD AND NECK: Other than poor dentition, head and neck exam is unremarkable. There are no contusions or lacerations. NECK: Supple. Shotty adenopathy. No bruits. LUNGS: Have occasional coarse rhonchi but clear with a good deep cough and she has no increased respi ratory effort with talking. CARDIOVASCULAR: She has a tachycardic, regular rate and rhythm with a right ventricular lift and a sy stolic murmur at the right lower sternal border. ABDOMEN: Tender diffusely. Hyperactive bowel sounds diffusely. No rebound. No guarding, no rigidity. When she gets off the ER gurney to get on the ICU gurney, there is no crying out of pain and no perit maradiaga findings. EXTREMITIES: Remarkable for the ischemia of all of her toes. The left fourth toe has a developing isc hemic ulcer. She has multiple small excoriations on the shins of both legs, but no open ulcers or ooz ing. She has mild clubbing, more predominant on the toes than her fingers. No edema is present. I can not feel a dorsalis pedis pulse on either foot. NEUROLOGIC: The patient is alert, oriented to person, place and time. Fast pressure repetitive speech . Already asking for pain medicine, already asking for food and forgetting that the answer has been n o at this time and has already asked both ICU nurses several times, as well as myself. She is not dem onstrating any focal deficits. Speech is not slurred. No fasciculations, no tremors, no diaphoresis. LABORATORIES: Sodium 124, potassium 5.5, anion gap 29, BUN 39, creatinine 1.1, glucose is 539. A1c is 13.9, calcium 8.8, magnesium 2.2, total bilirubin 1.9, alkaline phosphatase 200, total protein 8.4. Lipase 16. White cell count is mildly elevated 14.9. In September, she was 7.1, hemoglobin 13.6, hematoc rit 46.4, platelets 477. Urinalysis has ketonuria, glucosuria, squamous cells and sediment. No cultur e will be done. Urine tox screen is positive for methamphetamines. Moderate urine ketones. She has méndez d a chest x-ray done for line placement because of the central line and no pneumothorax and no acute cardiopulmonary infiltrates. ASSESSMENT/PLAN: 1. Type 1 diabetic ketoacidosis without coma, with complications and long-term use of insulin. She wi ll be placed in ICU. Insulin protocol will be followed with frequent Glucometer checks, frequent supp lementation of electrolytes if necessary, aggressive IV fluids and hydration. She will be placed n.p. o. except for occasional ice chips. She has been advised about that. The patient usually responds cece te quickly and is able use to come off the drip within 12-16 hours and I anticipate advancing her t quickly. Her hyponatremia, hyperkalemia, and acutely elevated creatinine are normal for her when e does this. Those will be watched carefully. 2. Peripheral vascular disease with multiple ischemic toes. [place], she is not able to find a vascular surgeon to see her. It would be p roblematic in that I do not think she would follow through even if she were successfully to get [facility] s surgery. 3. Chronic pain syndrome with chronic drug-seeking behavior in the past. When she did have a primary care provider, she had been successfully weaned off all narcotics and benzodiazepines probably over a year ago to 1-1/2 years ago. At that point in time, her primary care provider was firm in stating do not give the patient any more narcotics. She always has generalized abdominal pain and is always loo shanelle for pain medicines. While she does have etiologies in the form of pancreatitis, peripheral vascu lar disease, she will continue not have access to opiates in the outpatient setting. We will minimize use of opiates in the inpatient setting. 4. Ongoing methamphetamine abuse per drug screen. 5. DO NOT RESUSCITATE status. 6. Deep venous thrombosis prophylaxis with OZZIE monteiro. JOB #: [id number] EXT JOB #:[id number]
[2016-12-11] MEDS: SODIUM CHLORIDE FLUSH 0.9% 10 ML SYRINGE IVP PRN ×2 (04:00→20:37)
[2016-12-11 04:17] LABS: CALCIUM 7.8 mg/dL (8.5-10.3)
[2016-12-11 04:17] LABS: BASOPHILS # (AUTO) 0.1 10^3/uL (0.0-0.1); BASOPHILS % (AUTO) 0.4 %; BUN - BLOOD UREA NITROGEN 41 mg/dL (6-20); CALCIUM 7.8 mg/dL (8.5-10.3); CARBON DIOXIDE - CO2 19 mmol/L (21-32); CHLORIDE 103 mmol/L (101-111); CREATININE 0.7 mg/dL (0.4-1.0); EOSINOPHILS % (AUTO) 0.3 %; GFR - MDRD 95 (>89); GLUCOSE 142 mg/dL (70-100); HCT - HEMATOCRIT 35.2 % (37.0-47.0); HGB - HEMOGLOBIN 11.4 g/dL (12.0-16.0); LYMPHOCYTES # (AUTO) 3.3 10^3/uL (1.5-3.5); LYMPHOCYTES % (AUTO) 25.9 %; MEAN CORPUSCULAR HEMOGLOBIN 24.9 pg (27.0-31.0); MEAN CORPUSCULAR HGB CONC 32.3 g/dL (32.0-36.0); MEAN PLATELET VOLUME 7.8 fL (7.9-10.8); MONOCYTES % (AUTO) 7.6 %; NEUTROPHILS # (AUTO) 8.4 10^3/uL (1.5-6.6); NEUTROPHILS % (AUTO) 65.8 %; PHOSPHORUS 3.1 mg/dL (2.5-4.6); RED BLOOD COUNT 4.57 10^6/uL (4.20-5.40); RED CELL DISTRIBUTION WIDTH 15.7 % (12.0-15.0); SODIUM 131 mmol/L (135-145); UNCORRECTED WHITE BLOOD COUNT 12.8 x10^3/uL; WHITE BLOOD COUNT 12.8 x10^3/uL (4.8-10.8)
[2016-12-11 04:19] LABS: CALCIUM, IONIZED 1.09 mmol/L (1.15-1.33); VBG PH 7.335 (7.31-7.41)
[2016-12-11] MEDS: SODIUM CHLORIDE FLUSH 0.9% 10 ML SYRINGE IVP SCH ×3 (05:27→20:37)
[2016-12-11] MEDS: INSULIN GLARGINE 300 UNIT/3 ML PEN SUBQ SCH ×2 (06:30→20:34)
--- NOTE | 2016-12-11 07:26 | PROVIDER PROGRESS NOTE ---
Subjective - Prog Note Date Prog Note Date: 12/11/16 Prog Note Time: 07:26 - Subjective Subjective: She is off the insulin drip since midnight. Has been transitioned to oral meds. Also her Lantus and NovoLog. She gets Lantus 70 twice daily and 20 units fixed dose before meals 3 times daily plus sliding scale. Even with that her sugars are in the 300-400 range. Felicitas is eating nonstop. I have again counseled her that she needs to have her 3 meals plus snacks and that is it. She has a tendency to call the kitchen nonstop and asked for food. She would like prescriptions for insulin when she leaves. Current Medications - Current Medications Current Medications: Active Medications Calcium Citrate () 500 mg PO QID [facility] PRN Reason: Protocol Stop: 12/11/16 21:01 Enoxaparin Sodium (Lovenox) 40 mg SUBQ DAILY [facility] Heparin Sodium (Beef Lung) () 30 - 50 unit IVP ONCE PRN PRN Reason: Central Line Protocol (<24 hr) Stop: 01/09/17 19:59 Hydroxyzine Pamoate (Vistaril) 50 mg PO Q6HR [facility] Last Admin: 12/11/16 05:22 Dose: 50 mg Hyoscyamine (Levsin) 0.125 mg SL Q6HR PRN PRN Reason: PAIN Last Admin: 12/11/16 02:33 Dose: 0.125 mg Potassium Chloride/Dextrose/Sod Cl (D5.45ns W/20 Meq Kcl) 1,000 mls @ 150 mls/ hr IV .Q6H40M [facility] Last Admin: 12/11/16 07:00 Dose: 150 mls/hr Insulin Aspart (Novolog) 20 unit SUBQ TIDWM [facility] Insulin Aspart (Novolog) 1 - 9 unit SUBQ 0800,1200,1700,2100 [facility] PRN Reason: Protocol Insulin Glargine (Lantus Solostar) 70 unit SUBQ BID [facility] Last Admin: 12/11/16 06:30 Dose: 70 unit Nicotine (Nicoderm) 1 patch TOP DAILY [facility] Last Admin: 12/10/16 19:42 Dose: 1 patch Ondansetron HCl (Zofran Inj) 4 mg IVP Q6HR PRN PRN Reason: Nausea / Vomiting Ondansetron HCl (Zofran Odt) 4 mg TL Q6HR PRN PRN Reason: Nausea / Vomiting Pregabalin (Lyrica) 100 mg PO BID [facility] Last Admin: 12/10/16 20:37 Dose: 100 mg Pregabalin (Lyrica) 50 mg PO BID [facility] Last Admin: 12/10/16 20:36 Dose: 50 mg Sodium Chloride (Normal Saline Flush 0.9%) 10 ml IVP Q8HR [facility] Last Admin: 12/11/16 05:27 Dose: Not Given Sodium Chloride (Normal Saline Flush 0.9%) 10 ml IVP PRN PRN PRN Reason: NEEDED PER PROVIDER ORDERS Last Admin: 12/10/16 19:42 Dose: 30 ml Sodium Chloride (Normal Saline Flush 0.9%) 20 ml IVP PRN PRN PRN Reason: After Blood Draw Last Admin: 12/11/16 04:00 Dose: 20 ml Throat Lozenges (Cepacol) 1 lozenge MM Q2HR PRN PRN Reason: Mouth Sore Pain Last Admin: 12/11/16 05:22 Dose: 1 lozenge Insulin Aspart [Novolog Flexpen] 20 unit SQ TIDWM 09/21/16 Hydroxyzine Pamoate 50 mg PO Q6HR 10/07/16 Hyoscyamine Sulfate 0.125 mg SL Q6HR PRN 10/07/16 Pregabalin [Lyrica] 150 mg PO BID 10/07/16 Objective - Vital Signs/Intake & Output Reviewed Vital Signs: Yes Vital Signs: Vital Signs Temp Pulse Resp BP Pulse Ox 12/11/16 07:00 125 H 14 123/82 H 100 12/11/16 06:00 123 H 18 133/74 H 97 12/11/16 05:00 123 H 22 146/84 H 97 12/11/16 04:00 124 H 11 L 138/67 H 97 12/11/16 03:43 37.4 C Intake & Output: Intake & Output 12/08/16 12/09/16 12/10/16 12/11/16 23:59 23:59 23:59 23:59 Intake Total 0834.660 0517.979 Output Total 250 2100 Balance 7129.165 2237.979 - Objective General Appearance: positive: No acute distress, Alert, Other (Loud voice. Does not process statements from other people easily. Constant movement with sitting up turning around laying back down again. Seems agitated.) Eyes Bilateral: positive: PERRL, EOMI ENT: positive: Other (Poor dentition to partially edentulous) Neck: negative: Lymphadenopathy (R), Lymphadenopathy (L), Stiff neck, Carotid bruit Respiratory: positive: Chest non-tender. negative: Wheezes, Rales, Rhonchi Cardiovascular: positive: Regular rate & rhythm. negative: Gallop/S4, Friction rub Abdomen: positive: Nml bowel sounds, Tenderness (Diffuse and mild on palpation she says that everything hurts.). negative: Guarding, Rebound, Hepatomegaly, Splenomegaly Skin: positive: Warm, Dry Extremities: positive: Non-tender, No pedal edema, Other (Toes continue to be ischemic) Neurologic/Psychiatric: positive: Oriented x3, CN's nml (2-12), Motor nml. negative: Mood/affect nml - Lab Results Fish Bones: 12/12/16 05:38 12/12/16 05:38 Other Labs: Lab Results x24hrs 12/11/16 12/11/16 12/11/16 Range/Units 03:45 03:45 03:45 WBC (4.8-10.8) x10^3/uL RBC (4.20-5.40) 10^6/uL Hgb (12.0-16.0) g/dL Hct (37.0-47.0) % MCV (81.0-99.0) fL MCH (27.0-31.0) pg MCHC (32.0-36.0) g/dL RDW (12.0-15.0) % Plt Count (130-450) 10^3/uL MPV (7.9-10.8) fL Neut # (1.5-6.6) 10^3/uL Lymph # (1.5-3.5) 10^3/uL Clinch # (0.0-1.0) 10^3/uL Eos # (0.0-0.7) 10^3/uL Baso # (0.0-0.1) 10^3/uL Absolute Nucleated RBC x10^3/uL Nucleated RBC % /100WBC VBG pH 7.335 (7.31-7.41) VBG pCO2 (41-51) mmHg VBG pO2 (25-47) mmHg VBG HCO3 (23-28) mmol/L VBG Total CO2 (24-29) mmol/L VBG O2 Saturation (60-80) % VBG Base Excess (-2 - +2) mmol/L Ionized Calcium 1.09 L YES (1.15-1.33) mmol/L Sodium (135-145) mmol/L Potassium (3.5-5.0) mmol/L Chloride (101-111) mmol/L Carbon Dioxide (21-32) mmol/L Anion Gap (6-13) BUN (6-20) mg/dL Creatinine (0.4-1.0) mg/dL Estimated GFR (MDRD) (>89) Glucose (70-100) mg/dL Calcium 7.8 L (8.5-10.3) mg/dL Phosphorus (2.5-4.6) mg/dL Magnesium (1.7-2.8) mg/dL Albumin 3.3 (3.2-5.5) g/dL Serum Ketones (NEGATIVE) 12/11/16 12/11/16 12/10/16 Range/Units 03:08 03:08 23:45 WBC 12.8 H (4.8-10.8) x10^3/uL RBC 4.57 (4.20-5.40) 10^6/uL Hgb 11.4 L (12.0-16.0) g/dL Hct 35.2 L (37.0-47.0) % MCV 77.0 L (81.0-99.0) fL MCH 24.9 L (27.0-31.0) pg MCHC 32.3 (32.0-36.0) g/dL RDW 15.7 H (12.0-15.0) % Plt Count 373 (130-450) 10^3/uL MPV 7.8 L (7.9-10.8) fL Neut # 8.4 H (1.5-6.6) 10^3/uL Lymph # 3.3 (1.5-3.5) 10^3/uL Clinch # 1.0 (0.0-1.0) 10^3/uL Eos # 0.0 (0.0-0.7) 10^3/uL Baso # 0.1 (0.0-0.1) 10^3/uL Absolute Nucleated RBC 0.00 x10^3/uL Nucleated RBC % 0.0 /100WBC VBG pH (7.31-7.41) VBG pCO2 (41-51) mmHg VBG pO2 (25-47) mmHg VBG HCO3 (23-28) mmol/L VBG Total CO2 (24-29) mmol/L VBG O2 Saturation (60-80) % VBG Base Excess (-2 - +2) mmol/L Ionized Calcium (1.15-1.33) mmol/L Sodium 131 L 129 L (135-145) mmol/L Potassium 4.0 4.5 (3.5-5.0) mmol/L Chloride 103 100 L (101-111) mmol/L Carbon Dioxide 19 L 14 L (21-32) mmol/L Anion Gap 9.0 15.0 H (6-13) BUN 41 H 47 H (6-20) mg/dL Creatinine 0.7 1.1 H (0.4-1.0) mg/dL Estimated GFR (MDRD) 95 57 L (>89) Glucose 142 H 165 H (70-100) mg/dL Calcium 7.8 L 7.9 L (8.5-10.3) mg/dL Phosphorus 3.1 (2.5-4.6) mg/dL Magnesium 2.0 (1.7-2.8) mg/dL Albumin (3.2-5.5) g/dL Serum Ketones MODERATE H (NEGATIVE) 12/10/16 12/10/16 Range/Units 19:45 17:17 WBC (4.8-10.8) x10^3/uL RBC (4.20-5.40) 10^6/uL Hgb (12.0-16.0) g/dL Hct (37.0-47.0) % MCV (81.0-99.0) fL MCH (27.0-31.0) pg MCHC (32.0-36.0) g/dL RDW (12.0-15.0) % Plt Count (130-450) 10^3/uL MPV (7.9-10.8) fL Neut # (1.5-6.6) 10^3/uL Lymph # (1.5-3.5) 10^3/uL Clinch # (0.0-1.0) 10^3/uL Eos # (0.0-0.7) 10^3/uL Baso # (0.0-0.1) 10^3/uL Absolute Nucleated RBC x10^3/uL Nucleated RBC % /100WBC VBG pH 6.942 L (7.31-7.41) VBG pCO2 18.0 L (41-51) mmHg VBG pO2 128.1 H (25-47) mmHg VBG HCO3 3.8 L (23-28) mmol/L VBG Total CO2 4.3 L (24-29) mmol/L VBG O2 Saturation 96.9 H (60-80) % VBG Base Excess -27.1 L (-2 - +2) mmol/L Ionized Calcium (1.15-1.33) mmol/L Sodium 125 L (135-145) mmol/L Potassium 4.5 (3.5-5.0) mmol/L Chloride 96 L (101-111) mmol/L Carbon Dioxide 6 L* (21-32) mmol/L Anion Gap 23.0 H (6-13) BUN 51 H (6-20) mg/dL Creatinine 1.1 H (0.4-1.0) mg/dL Estimated GFR (MDRD) 57 L (>89) Glucose 351 H (70-100) mg/dL Calcium 7.8 L (8.5-10.3) mg/dL Phosphorus 5.7 H (2.5-4.6) mg/dL Magnesium 2.1 (1.7-2.8) mg/dL Albumin (3.2-5.5) g/dL Serum Ketones LARGE H (NEGATIVE) Assessment/Plan - Problem List (1) Diabetic acidosis without coma Impression: Continue to monitor her glucose before meals and adjust her short-acting insulin on the basis of that. Continue the Lantus 70 units subcu twice daily. Encouraged her to decrease her carb intake. Plan for discharge tomorrow once her sugars are under 300 on a regular basis Qualifiers: Diabetes mellitus type: type 1 Qualified Code(s): E10.10 - Type 1 diabetes mellitus with ketoacidosis without coma (2) Homeless single person Impression: Unfortunately her other medical problems of peripheral vascular disease, chronic pain syndrome, cognitive deficits are all unaddressed because of her homelessness. Social service has offered her placement in the past and she has declined. She continues to decline at this time. She plans to return to her tent behind [employer].
[2016-12-11] MEDS ORDERED: INSULIN ASPART 300 UNIT/3 ML PEN SUBQ SCH (08:00)
[2016-12-11] MEDS: INSULIN ASPART 300 UNIT/3 ML PEN SUBQ SCH ×6 (08:20→20:36)
[2016-12-11] MEDS: CALCIUM CITRATE 250 MG TABLET PO SCH ×4 (08:32→20:34)
[2016-12-11] MEDS: ENOXAPARIN 40 MG/0.4 ML SYRINGE SUBQ SCH (08:33)
[2016-12-11] MEDS: PREGABALIN 100 MG CAPSULE PO SCH ×2 (08:33→20:34)
[2016-12-11] MEDS: PREGABALIN 25 MG CAPSULE PO SCH ×2 (08:33→20:34)
[2016-12-11] MEDS: NICOTINE 21 MG PATCH TOP SCH (08:57)
[2016-12-11] MEDS ORDERED: clonazePAM 0.5 MG TABLET PO PRN (17:10)
[2016-12-11] MEDS: ACETAMINOPHEN 325 MG TABLET PO PRN ×2 (17:44→21:59)
[2016-12-12] MEDS: hydrOXYzine PAMOATE 25 MG CAPSULE PO SCH ×3 (00:36→12:05)
[2016-12-12] MEDS: BENZOCAINE/MENTHOL LOZENGE MM PRN ×2 (00:41→08:26)
[2016-12-12] MEDS: SODIUM CHLORIDE FLUSH 0.9% 10 ML SYRINGE IVP PRN (05:31)
[2016-12-12] MEDS: SODIUM CHLORIDE FLUSH 0.9% 10 ML SYRINGE IVP SCH (05:31)
[2016-12-12 06:17] LABS: BASOPHILS # (AUTO) 0.1 10^3/uL (0.0-0.1); BASOPHILS % (AUTO) 0.9 %; EOSINOPHILS # (AUTO) 0.1 10^3/uL (0.0-0.7); EOSINOPHILS % (AUTO) 1.8 %; HCT - HEMATOCRIT 34.7 % (37.0-47.0); HGB - HEMOGLOBIN 11.1 g/dL (12.0-16.0); LYMPHOCYTES # (AUTO) 3.7 10^3/uL (1.5-3.5); LYMPHOCYTES % (AUTO) 44.4 %; MEAN CORPUSCULAR HEMOGLOBIN 24.6 pg (27.0-31.0); MEAN CORPUSCULAR VOLUME 76.7 fL (81.0-99.0); MEAN PLATELET VOLUME 7.7 fL (7.9-10.8); MONOCYTES # (AUTO) 0.5 10^3/uL (0.0-1.0); MONOCYTES % (AUTO) 6.6 %; NEUTROPHILS # (AUTO) 3.9 10^3/uL (1.5-6.6); NEUTROPHILS % (AUTO) 46.3 %; RED BLOOD COUNT 4.52 10^6/uL (4.20-5.40); RED CELL DISTRIBUTION WIDTH 16.5 % (12.0-15.0); UNCORRECTED WHITE BLOOD COUNT 8.3 x10^3/uL; WHITE BLOOD COUNT 8.3 x10^3/uL (4.8-10.8)
[2016-12-12 06:33] LABS: CALCIUM 8.7 mg/dL (8.5-10.3); CREATININE 0.5 mg/dL (0.4-1.0); MAGNESIUM 1.8 mg/dL (1.7-2.8); PHOSPHORUS 2.2 mg/dL (2.5-4.6); POTASSIUM 3.3 mmol/L (3.5-5.0)
[2016-12-12] MEDS: ENOXAPARIN 40 MG/0.4 ML SYRINGE SUBQ SCH (08:14)
[2016-12-12] MEDS: INSULIN GLARGINE 300 UNIT/3 ML PEN SUBQ SCH (08:14)
[2016-12-12] MEDS: NICOTINE 21 MG PATCH TOP SCH (08:15)
[2016-12-12] MEDS: INSULIN ASPART 300 UNIT/3 ML PEN SUBQ SCH ×4 (08:15→11:44)
[2016-12-12] MEDS: PREGABALIN 25 MG CAPSULE PO SCH (08:16)
[2016-12-12] MEDS: PREGABALIN 100 MG CAPSULE PO SCH (08:17)
[2016-12-12] MEDS: ACETAMINOPHEN 325 MG TABLET PO PRN (08:26)
--- NOTE | 2016-12-12 10:30 | Discharge Plan ---
Discharge Plan Disposition: 01 Home, Self Care Condition: Stable Prescriptions: Insulin Aspart [Novolog Flexpen] 20 unit SQ TIDWM #8 [email or web address] Insulin Glargine [Lantus Solostar] 70 unit SUBQ BID #15 pen [place], Disposable [Needle] 2 each MC TID #150 dis.needle Diet: Diabetic Activity Restrictions: Activity as Tolerated Shower Restrictions: No Driving Restrictions: No Additional Instructions or Follow Up instructions: You have diabetes it is completely dependent on taking insulin. Unfortunately your homeless, and you are very erratic in taking your medicine. You are also abusing methamphetamines. Since she do not take your insulin regularly and the methamphetamines are very dangerous to your body, this results in diabetic ketoacidosis. This results in multiple admissions to the hospital. You are also homeless. You have asked that new insulin medicine be sent to [facility] pharmacy moved on that. We would ask you to try and establish yourself with a new primary care provider and be compliant with her medical regimen. Please also stop using any recreational substances including methamphetamines, ecstasy , LSD, or heroin. No Smoking: If you smoke, Please STOP! Call for help.
[2016-12-12 11:35] VITALS: BP 146/99
--- NOTE | 2016-12-13 06:26 | DISCHARGE SUMMARY ---
DATE OF ADMISSION: 12/10/2016 DATE OF DISCHARGE: 12/12/2016 DISCHARGE DIAGNOSES 1. Type 1 diabetes mellitus with lactic acidosis without coma, with complications. 2. Homeless single person. 3. Ischemia of toes. 4. Methamphetamine abuse. PRINCIPAL PROCEDURES 1. Placement in ICU with IV insulin drip. 2. Chest x-ray. 3. Right IJ central line placement. MEDICATIONS 1. Lantus 70 units subcutaneous b.i.d. 2. NovoLog 20 units subcutaneous t.i.d. HOSPITAL COURSE: The patient is a 36-year-old female who is well-known to our service with regards to long-term use of methamphetamines and multiple admissions for DKA. Most of her presentations are wit h abdominal pain, nausea, and vomiting. She usually gets IV insulin drip in the ICU, transitioned to subcutaneous injection once her lactic acidosis is resolved, and then she goes back to her homeless s tatus. With one of her admissions in August 2016, her abdominal pain was evaluated with CT of the abdom en. It had an enlarged head of the pancreas with diffuse pancreatic and abdominal lymphadenopathy, an d a differential including infection, neoplasm, lymphoma. With that evaluation and treatment for stre p bacteremia, we transferred the patient to [facility]. The abdominal ly mphadenopathy was discussed with the MRI attending and they did not recommend biopsy, but suggested a n interval imaging in 2-3 months to confirm resolution of mesenteric lymphadenopathy, which was thoug ht to be reactive. When she was discharged for her abdominal pain from [facility], she was continued on Lyrica, and discharged with an opioid taper of 30 Dilaudid tablets, 2 mg pills. For her group A strepticemia bacteremia, she was transitioned to Augmentin and did complete a 14-day tota l course. They did address some of her diabetes there, but she was very resistant to change. She was on 70 units of Lantus b.i.d. and carbohydrate counting short-acting insulin. While there, she was valeri ated for her anxiety with low-dose clonazepam 0.5 b.i.d. and hydroxyzine. Between her discharge and n ow, she has not taken any more. She was again hospitalized in September and discharged to home. She now returns again with abdominal joycelyn n, nausea, not feeling well and diabetic ketoacidosis. She continues to be homeless. She has not esta blished herself with a primary care provider. HOSPITAL COURSE: She was placed in the ICU. Received IV insulin drip. Any electrolyte disorder was ad dressed with supplementation. On exam, she continued to have ischemia of the toes on a chronic basis. Urine tox screen continues to be positive for methamphetamines. Insulin drip was stopped and she was transitioned to subcutaneous insulin with regular food. She like s to eat nonstop. She will eat all day long if we let her. On the day of discharge, her glucose was a nywhere from 76-256. She is not felt stable enough to go to her outpatient status of living in a tent behind [facility]. She requested 2 new prescriptions for Lantus and NovoLog pens as well as needles. Those were provided to the patient. She is again encouraged to please establish herself with a primary care provider and get routine regular mental health with Darinel Saldaña. JOB #: [id number] EXT JOB #:[id number]
== END 2016-12-12 14:15 | disposition home or self-care (01) | DRG 638 ==
LOC: ED 14:03 → ICU 15:57 → MS3 12-11 14:58
PROVIDERS: ADMIT Specialist; ATTEND Specialist
PROC: 02HV33Z Insertion of Infusion Device into Superior Vena Cava, Percutaneous Approach (ICD-10-PCS; principal; 2016-12-10)
DX: E10.10 Type 1 diabetes mellitus with ketoacidosis without coma (principal); K86.1 Other chronic pancreatitis; E87.1 Hypo-osmolality and hyponatremia; T38.3X6A Underdosing of insulin and oral hypoglycemic [antidiabetic] drugs, initial encounter; Z91.138 Patient's unintentional underdosing of medication regimen for other reason; Z59.0 Homelessness; E87.6 Hypokalemia; E10.51 Type 1 diabetes mellitus with diabetic peripheral angiopathy without gangrene; E10.22 Type 1 diabetes mellitus with diabetic chronic kidney disease; N18.9 Chronic kidney disease, unspecified; E10.42 Type 1 diabetes mellitus with diabetic polyneuropathy; I11.9 Hypertensive heart disease without heart failure; F15.10 Other stimulant abuse, uncomplicated; G89.4 Chronic pain syndrome; M79.7 Fibromyalgia; R41.3 Other amnesia; R41.89 Other symptoms and signs involving cognitive functions and awareness; S00-T88 Injury, poisoning and certain other consequences of external causes; F32.9 Major depressive disorder, single episode, unspecified; F41.0 Panic disorder [episodic paroxysmal anxiety]; I07.1 Rheumatic tricuspid insufficiency; I27.20 Pulmonary hypertension, unspecified; F17.210 Nicotine dependence, cigarettes, uncomplicated; Z66 Do not resuscitate; Z79.4 Long term (current) use of insulin; Z76.5 Malingerer [conscious simulation]
CPT/HCPCS: 36415; 36556; 71010; 80048; 80053; 80306; 81001; 81003; 82009; 82040; 82310; 82330; 82803; 83036; 83690; 83735; 84100; 85025; 87086; 87150; 96365; 96372; 96375; 99284; 99291

== ENCOUNTER 2016-12-16 13:31 | Outpatient (CLI) | payer MEDICAID | END 2016-12-16 13:32 | disposition critical access hospital (66) | LOC: EMS 13:31 | PROVIDERS: ATTEND Surgery | DX: R40.20 Unspecified coma (principal); R73.09 Other abnormal glucose | CPT/HCPCS: A0425; A0429 ==

== ENCOUNTER 2017-01-04 09:43 | Outpatient (CLI) | payer MEDICAID | END 2017-01-04 09:44 | disposition critical access hospital (66) | LOC: EMS 09:43 | PROVIDERS: ATTEND Surgery | DX: R53.1 Weakness (principal) | CPT/HCPCS: A0425; A0429 ==

== ENCOUNTER 2017-01-04 09:58 | Inpatient (IN) | payer MEDICAID ==
[2017-01-04] MEDS ORDERED: SODIUM CHLORIDE 0.9% 1,000 ML IV ONE (10:26)
[2017-01-04] MEDS ORDERED: INSULIN REGULAR HUMAN 100 UNIT in SODIUM CHLORIDE 0.9% 100ML 99 ML IV STA (10:26)
[2017-01-04 11:09] LABS: BASOPHILS # (AUTO) 0.2 10^3/uL (0.0-0.1); BASOPHILS % (AUTO) 1.3 %; HCT - HEMATOCRIT 37.8 % (37.0-47.0); LYMPHOCYTES # (AUTO) 2.1 10^3/uL (1.5-3.5); LYMPHOCYTES % (AUTO) 18.6 %; MEAN CORPUSCULAR HGB CONC 29.2 g/dL (32.0-36.0); MEAN CORPUSCULAR VOLUME 82.2 fL (81.0-99.0); MEAN PLATELET VOLUME 8.5 fL (7.9-10.8); MONOCYTES # (AUTO) 0.4 10^3/uL (0.0-1.0); MONOCYTES % (AUTO) 3.1 %; NEUTROPHILS # (AUTO) 8.8 10^3/uL (1.5-6.6); RED BLOOD COUNT 4.59 10^6/uL (4.20-5.40); RED CELL DISTRIBUTION WIDTH 16.3 % (12.0-15.0); UNCORRECTED WHITE BLOOD COUNT 11.4 x10^3/uL; WHITE BLOOD COUNT 11.4 x10^3/uL (4.8-10.8)
[2017-01-04 11:19] LABS: ALBUMIN/GLOBULIN RATIO 1.2 (1.0-2.2); BILIRUBIN,TOTAL 1.5 mg/dL (0.2-1.0); BUN - BLOOD UREA NITROGEN 24 mg/dL (6-20); CALCIUM 9.3 mg/dL (8.5-10.3); CARBON DIOXIDE - CO2 10 mmol/L (21-32); CHLORIDE 93 mmol/L (101-111); CREATININE 1.1 mg/dL (0.4-1.0); GFR - MDRD 57 (>89); GLUCOSE 572 mg/dL (70-100); LIPASE 45 U/L (22-51); POTASSIUM 5.7 mmol/L (3.5-5.0); SODIUM 130 mmol/L (135-145); TOTAL PROTEIN 7.8 g/dL (6.7-8.2)
[2017-01-04] MEDS ORDERED: PROMETHAZINE 25 MG/1 ML VIAL IM STA (11:45)
[2017-01-04] MEDS ORDERED: PROMETHAZINE 25 MG/1 ML VIAL ONE (11:51)
[2017-01-04 12:22] LABS: BILIRUBIN,URINE NEGATIVE (NEGATIVE); PH,URINE 5.5 PH (5.0-7.5)
[2017-01-04 12:25] LABS: HCG UR QUAL NEGATIVE; UA CHARGE (STRIP ONLY) YES; UR CULTURE IF IND NOT INDICATED
--- NOTE | 2017-01-04 12:51 | ED Physician Documentation ---
History of Present Illness - Stated complaint Stated Complaint: DKA - Chief complaint Chief Complaint: General - History obtained from History obtained from: Patient - History of Present Illness Timing: Today - Additonal information Additional information: 36-year-old brittle diabetic homeless female living in a tent went to bed last night after taking her insulin and this morning woke up vomiting with her blood sugars reading high. She has had DKA numerous times and was most recently discharged from the hospital about 1 week ago. Review of Systems Constitutional: reports: Chills, Myalgias, Fatigue, Sweats. denies: Fever Eyes: denies: Decreased vision Ears: denies: Ear pain Nose: reports: Rhinorrhea / runny nose, Congestion Throat: reports: Sore throat Cardiac: denies: Chest pain / pressure, Palpitations Respiratory: reports: Cough. denies: Dyspnea GI: reports: Nausea, Vomiting. denies: Abdominal Pain : denies: Dysuria, Frequency Skin: denies: Rash Musculoskeletal: reports: Back pain. denies: Neck pain Neurologic: reports: Generalized weakness. denies: Focal weakness, Numbness PD PAST MEDICAL HISTORY - Past Medical History Cardiovascular: Hypertension, High cholesterol, Peripheral Vascular Disease, [place] Respiratory: None Neuro: Peripheral neuropathy Endocrine/Autoimmune: Type 1 diabetes GI: Pancreatitis CLINICAL TRIAL ASSOCIATE: None : None HEENT: None Psych: Depression, Anxiety, Panic attacks Musculoskeletal: Fibromyalgia Derm: None - Past Surgical History Past Surgical History: Yes General: Cholecystectomy HEENT: Tonsil/Adenoidectomy - Present Medications Home Medications: Ambulatory Orders Medication Instructions Recorded Confirmed Insulin Glargine [Lantus Solostar] 70 unit SUBQ BID #2 pen 12/23/16 01/04/17 - Allergies Allergies/Adverse Reactions: Allergies Allergy/AdvReac Type Severity Reaction Status Date / Time codeine Allergy Hives Verified 01/04/17 10:12 hydrocodone Allergy Hives Verified 01/04/17 10:12 milk AdvReac Cramps Verified 01/04/17 10:12 nitrofurantoin AdvReac Headache Verified 01/04/17 10:12 [From Macrobid] PAPER TAPE AdvReac Unknown Uncoded 01/04/17 10:12 - Social History Does the pt smoke?: Yes Smoking Status: Current every day smoker Does the pt drink ETOH?: No Does the pt have substance abuse?: No - Immunizations Immunizations are current?: Yes - POLST Patient has POLST: No PD ED PE NORMAL - Vitals Vital signs reviewed: Yes (tachy and hypotensive ) - General General: Other (Thin 36 y/o female is whinning with each breath and appears to have parched membranes) - HEENT HEENT: Atraumatic, PERRL, EOMI, Other (The right TM is inflamed with distortion of the landmarks. ) - Neck Neck: Supple, no meningeal sign - Cardiac Cardiac: Other (tyachy with 2/6 holosystolic murmer at LSB) - Respiratory Respiratory: No respiratory distress, Clear bilaterally - Abdomen Abdomen: Soft, Non tender - Derm Derm: Normal color, Warm and dry, No rash - Extremities Extremities: No deformity, No edema - Neuro Neuro: No motor deficit, No sensory deficit Eye Opening: Spontaneous Motor: Obeys Commands Verbal: Oriented GCS Score: 15 - Psych Psych: Other (mood is withdrawn and the affect is flat. ) Results - Vitals Vitals: Vital Signs - 24 hr 01/04/17 01/04/17 01/04/17 10:00 11:48 12:23 Temperature 36.9 C Heart Rate 117 H 122 H 118 H Respiratory 20 24 20 Rate Blood Pressure 100/57 L 113/68 112/65 O2 Saturation 100 99 100 01/04/17 15:05 Temperature Heart Rate 123 H Respiratory 20 Rate Blood Pressure 124/67 O2 Saturation 99 Oxygen O2 Source [Without Activity] Room air O2 Source Room air - Labs Labs: Laboratory Tests 01/04/17 01/04/17 01/04/17 11:00 11:00 12:05 WBC 11.4 H RBC 4.59 Hgb 11.0 L Hct 37.8 MCV 82.2 MCH 24.0 L MCHC 29.2 L RDW 16.3 H Plt Count 636 H MPV 8.5 Neut # 8.8 H Lymph # 2.1 [place] # 0.4 Eos # 0.0 Baso # 0.2 H Absolute Nucleated RBC 0.00 Nucleated RBC % 0.0 Sodium 130 L Potassium 5.7 H Chloride 93 L Carbon Dioxide 10 L* Anion Gap 27.0 H BUN 24 H Creatinine 1.1 H Estimated GFR (MDRD) 57 L Glucose 572 H* Calcium 9.3 Total Bilirubin 1.5 H AST 24 ALT 38 Alkaline Phosphatase 155 H Total Protein 7.8 Albumin 4.2 Globulin 3.6 Albumin/Globulin Ratio 1.2 Lipase 45 Urine Color YELLOW Urine Clarity CLEAR Urine pH 5.5 Ur Specific [place] 1.025 Urine Protein NEGATIVE Urine Glucose (UA) 500 H Urine Ketones >=80 H Urine Occult Blood NEGATIVE Urine Nitrite NEGATIVE Urine Bilirubin NEGATIVE Urine Urobilinogen 0.2 (NORMAL) Ur Leukocyte Esterase NEGATIVE Ur Microscopic Review NOT INDICATED Urine Culture Comments NOT INDICATED Urine HCG, Qual NEGATIVE Urine Opiates Screen Ur Oxycodone Screen Urine Methadone Screen Ur Propoxyphene Screen Ur Barbiturates Screen Ur Tricyclics Screen Ur Phencyclidine Scrn Ur Amphetamine Screen U Methamphetamines Scrn U Benzodiazepines Scrn Urine Cocaine Screen U Cannabinoids Screen Ethyl Alcohol < 5.0 Serum Ketones MODERATE H 01/04/17 12:05 WBC RBC Hgb Hct MCV MCH MCHC RDW Plt Count MPV Neut # Lymph # [place] # Eos # Baso # Absolute Nucleated RBC Nucleated RBC % Sodium Potassium Chloride Carbon Dioxide Anion Gap BUN Creatinine Estimated GFR (MDRD) Glucose Calcium Total Bilirubin AST ALT Alkaline Phosphatase Total Protein Albumin Globulin Albumin/Globulin Ratio Lipase Urine Color Urine Clarity Urine pH Ur Specific [place] Urine Protein Urine Glucose (UA) Urine Ketones Urine Occult Blood Urine Nitrite Urine Bilirubin Urine Urobilinogen Ur Leukocyte Esterase Ur Microscopic Review Urine Culture Comments Urine HCG, Qual Urine Opiates Screen NEGATIVE Ur Oxycodone Screen NEGATIVE Urine Methadone Screen NEGATIVE Ur Propoxyphene Screen NEGATIVE Ur Barbiturates Screen NEGATIVE Ur Tricyclics Screen NEGATIVE Ur Phencyclidine Scrn NEGATIVE Ur Amphetamine Screen NEGATIVE U Methamphetamines Scrn POSITIVE H U Benzodiazepines Scrn NEGATIVE Urine Cocaine Screen NEGATIVE U Cannabinoids Screen NEGATIVE Ethyl Alcohol Serum Ketones PD MEDICAL DECISION MAKING - ED course Complexity details: reviewed old records, reviewed results, re-evaluated patient , considered differential, d/w patient ED course: 36-year-old brittle diabetic female well-known to the emergency department presents with again today DKA. We are able to provide a peripheral line today and fluid is administered as well as an insulin drip started at 5 U/h. Departure - Departure Disposition: [facility] DC/Xfer Clinical Impression: Methamphetamine abuse DKA (diabetic ketoacidoses) Qualifiers: Diabetes mellitus type: type 1 Diabetes mellitus complication detail: without coma Qualified Code(s): E10.10 - Type 1 diabetes mellitus with ketoacidosis without coma Otitis media Qualifiers: Otitis media type: suppurative Chronicity: acute Laterality: right Recurrence: not specified as recurrent Spontaneous tympanic membrane rupture: without spontaneous rupture Qualified Code(s): H66.001 - Acute suppurative otitis media without spontaneous rupture of ear drum, right ear Condition: Serious Discharge Date/Time: 01/04/17 15:50
[2017-01-04] MEDS ORDERED: LORazepam 2 MG/ML SYRINGE IVP STA (13:43)
[2017-01-04] MEDS ORDERED: LORazepam 2 MG/ML SYRINGE ONE (13:56)
[2017-01-04] MEDS ORDERED: ACETAMINOPHEN 1,000 MG/100 ML 100 ML IV STA (14:56)
[2017-01-04] MEDS ORDERED: ACETAMINOPHEN 1,000 MG/100 ML 100 ML IV ONE (15:16)
[2017-01-04 16:33] LABS: VBG BASE EXCESS -7.3 mmol/L (-2 - +2); VBG OXYGEN SATURATION 98.9 % (60-80); VBG PH 7.432 (7.31-7.41); VBG TOTAL CO2 16.2 mmol/L (24-29)
[2017-01-04 16:37] LABS: CALCIUM 8.7 mg/dL (8.5-10.3); CREATININE 0.8 mg/dL (0.4-1.0); MAGNESIUM 1.9 mg/dL (1.7-2.8); POTASSIUM 4.2 mmol/L (3.5-5.0)
[2017-01-04] MEDS ORDERED: DEXTROSE 5% 1,000 ML IV ONE (17:01)
[2017-01-04] MEDS: DEXTROSE 5%-0.9% NACL 1,000 ML IV SCH (17:15)
[2017-01-04 17:38] LABS: BUN - BLOOD UREA NITROGEN 24 mg/dL (6-20); CALCIUM 8.7 mg/dL (8.5-10.3); CARBON DIOXIDE - CO2 17 mmol/L (21-32); CHLORIDE 103 mmol/L (101-111); CREATININE 0.7 mg/dL (0.4-1.0); GFR - MDRD 95 (>89); GLUCOSE 134 mg/dL (70-100); MAGNESIUM 1.9 mg/dL (1.7-2.8); SODIUM 133 mmol/L (135-145)
[2017-01-04 19:35] LABS: BUN - BLOOD UREA NITROGEN 22 mg/dL (6-20); CALCIUM 8.4 mg/dL (8.5-10.3); CARBON DIOXIDE - CO2 17 mmol/L (21-32); CHLORIDE 102 mmol/L (101-111); CREATININE 0.7 mg/dL (0.4-1.0); GFR - MDRD 95 (>89); GLUCOSE 125 mg/dL (70-100); MAGNESIUM 1.8 mg/dL (1.7-2.8); POTASSIUM 4.1 mmol/L (3.5-5.0); SODIUM 132 mmol/L (135-145)
[2017-01-04] MEDS: ACETAMINOPHEN 1,000 MG/100 ML 100 ML IV PRN (19:37)
[2017-01-04] MEDS: KETOROLAC 30 MG/ML VIAL IVP PRN (19:38)
[2017-01-04] MEDS: SODIUM CHLORIDE FLUSH 0.9% 10 ML SYRINGE IVP ONE (19:48)
[2017-01-04] MEDS: INSULIN GLARGINE 300 UNIT/3 ML PEN SUBQ SCH (21:00)
[2017-01-04 21:27] LABS: GLUCOSE 187 mg/dL (70-100)
[2017-01-04 23:22] LABS: GLUCOSE 174 mg/dL (70-100)
[2017-01-05 01:23] LABS: GLUCOSE 134 mg/dL (70-100)
[2017-01-05] MEDS: ACETAMINOPHEN 1,000 MG/100 ML 100 ML IV PRN ×2 (01:55→07:37)
[2017-01-05] MEDS: KETOROLAC 30 MG/ML VIAL IVP PRN ×3 (02:02→16:13)
[2017-01-05] MEDS: DEXTROSE 5%-0.9% NACL 1,000 ML IV SCH ×4 (02:02→19:46)
[2017-01-05] MEDS: BENZOCAINE/MENTHOL LOZENGE MM PRN ×3 (03:52→17:25)
[2017-01-05] MEDS ORDERED: BENZOCAINE/MENTHOL LOZENGE MM ONE ×2 (03:53→03:55)
[2017-01-05] MEDS ORDERED: INSULIN REGULAR HUMAN 100 UNIT in SODIUM CHLORIDE 0.9% 100ML 99 ML IV SCH (04:00)
[2017-01-05] MEDS: LORazepam 2 MG/ML SYRINGE IVP PRN ×4 (06:47→19:45)
[2017-01-05] MEDS ORDERED: SODIUM CHLORIDE FLUSH 0.9% 10 ML SYRINGE IVP ONE ×2 (07:41→14:50)
[2017-01-05 08:53] LABS: CALCIUM 7.5 mg/dL (8.5-10.3); CREATININE 0.4 mg/dL (0.4-1.0); MAGNESIUM 1.6 mg/dL (1.7-2.8)
[2017-01-05] MEDS: INSULIN GLARGINE 300 UNIT/3 ML PEN SUBQ SCH ×2 (08:59→21:28)
[2017-01-05] MEDS: SODIUM CHLORIDE FLUSH 0.9% 10 ML SYRINGE IVP ONE (10:42)
[2017-01-05] MEDS: INSULIN ASPART 300 UNIT/3 ML PEN SUBQ SCH ×2 (12:24→17:48)
[2017-01-05] MEDS ORDERED: INSULIN ASPART 300 UNIT/3 ML PEN SUBQ ONE (12:26)
[2017-01-05] MEDS ORDERED: LORazepam 0.5 MG TABLET PO SCH ×2 (13:15→14:00)
[2017-01-05] MEDS ORDERED: ACETAMINOPHEN 325 MG TABLET PO SCH (14:00)
[2017-01-05] MEDS ORDERED: ONDANSETRON ODT 4 MG TABLET TL PRN (16:00)
[2017-01-05] MEDS ORDERED: MORPHINE ER 60 MG TABLET PO SCH (16:07)
[2017-01-05] MEDS ORDERED: NICOTINE 14 MG PATCH TOP SCH (17:00)
[2017-01-05] MEDS ORDERED: HYDROmorphone 0.5 MG/0.5 ML SYRINGE IVP PRN (17:12)
--- NOTE | 2017-01-05 17:12 | CT Preliminary Report ---
Exam: CT KUB IMPRESSION: 1. There is dense mesenteric root and peripheral mesenteric edema. Differential considerations includ e enteritis, venous ischemia, lymphoma, or carcinomatosis. 2. Hyperdense liver. Spleen is normal in attenuation. This can be seen with primary hemachromatosis. 3. The stomach is distended. No clearly dilated or thick-walled bowel is seen. SITE ID: [id number]
--- NOTE | 2017-01-05 17:15 | CT Report ---
EXAM: CT ABDOMEN AND PELVIS EXAM DATE: 01/05/2017 04:38 PM. CLINICAL HISTORY: Abd pain, new diarrhea. COMPARISONS: 09/07/2016. TECHNIQUE: Routine axial helical CT imaging was performed through the abdomen and pelvis without IV c ontrast. Reconstructions: Coronal and sagittal. In accordance with CT protocol optimization, one or more of the following dose reduction techniques w ere utilized for this exam: automated exposure control, adjustment of mA and/or KV based on patient s ize, or use of iterative reconstructive technique. FINDINGS: Lung Bases: There are trace pleural effusions. Abdominal Organs: There is relative hyperdensity of the liver. The spleen demonstrates no acute abnor malities. The pancreas is not well-defined. The adrenal glands and kidneys demonstrate no acute nonco ntrast abnormalities. Gallbladder/bile ducts: The gallbladder is surgically absent. There is no significant bile duct dilat ation. Peritoneal Cavity: The stomach is distended with debris. No dilated small bowel is seen. No acute col onic abnormalities are seen. There is dense mesenteric edema. Previously visualized mesenteric lymph nodes are more difficult to see on this study. There is no evidence of appendicitis. No intraperitone al free air. Pelvic Organs: No bladder stones or wall thickening. Noncontrast images of the visualized pelvic orga ns are unremarkable. Vasculature: Unremarkable. Other: None. IMPRESSION: 1. There is dense mesenteric root and peripheral mesenteric edema. Differential considerations includ e enteritis, venous ischemia, lymphoma, or carcinomatosis. 2. Hyperdense liver. Spleen is normal in attenuation. This can be seen with primary hemachromatosis. 3. The stomach is distended. No clearly dilated or thick-walled bowel is seen. Referring Provider Line: [phone] SITE ID: [id number]
[2017-01-05] MEDS: CLOTRIMAZOLE 1% CREAM 15 GM TUBE TOP SCH ×2 (17:22→20:36)
[2017-01-05] MEDS: NICOTINE 14 MG PATCH TOP SCH (17:24)
[2017-01-05] MEDS ORDERED: HALOPERIDOL 5 MG/ML VIAL IM SCH (17:46)
[2017-01-05] MEDS: INSULIN REGULAR HUMAN 100 UNIT/1 ML 10 ML MDV SUBQ SCH ×2 (18:03→18:05)
[2017-01-05] MEDS: HYDROmorphone 0.5 MG/0.5 ML SYRINGE IVP PRN ×2 (18:34→19:46)
--- NOTE | 2017-01-05 18:57 | HISTORY & PHYSICAL EXAMINATION ---
DATE OF ADMISSION: 01/04/2017 This is a 36-year-old white female with history of multiple admissions here for DKA, medication noncompliance, homelessness, methamphetamine abuse, psychiatric personality disorder. Over the past several months, she has been here nearly every other week for DKA exacerbation. The patient is admitted with somnolence. Emergency room was called and ambulance brought her in when she was combative and agitated (she is normally somnolent and nearly stuporous). She was evaluated in the emergency room and admitted for another DKA exacerbation. REVIEW OF SYSTEMS: Patient gives no complaints, is sleeping soundly in the left lateral decubitus position, but the ER tells me that she was evaluated after she stated that she had right jaw pain and they found right-sided otitis media. Review of systems otherwise could not be done from the patient who is currently somnolent. MEDICATIONS: At home are supposed to be some doses of NPH insulin but the suspicion is she takes no medications whatsoever. ALLERGIES: CODEINE, however, she can take Dilaudid and nitrofurantoin. The patient is a smoker of unknown amount of cigarettes per day and has methamphetamine abuse with scars and prior evidence of active pipe smoking of unknown substances. FAMILY HISTORY: Not contributory and not available from the patient on this admission. PHYSICAL EXAMINATION GENERAL: Reveals a white female who is in no distress, in the left lateral decubitus supine position. Somnolent. Arouses to name. VITAL SIGNS: Blood pressure 118/81, pulse 120 in sinus tachycardia, afebrile. HEENT: Shows edentulous mouth. No scleral icterus. Moist oral mucosa. NECK: Shows no JVD and supple. CHEST: Clear. HEART: Sounds are normal but tachycardic. ABDOMEN: Soft. There is no guarding or rebound. EXTREMITIES: No edema. There are multiple scabs and several bruises but no clubbing or cyanosis. LABORATORY DATA: Sodium 130, potassium 5.7, anion gap 27, BUN 24, creatinine 1.1 , first glucose is 572. Normal liver tests. Bilirubin 1.5. Hemoglobin 11.0, white count 11.4, platelet count 636. Venous blood gas showed a pH of 7.43, pO2 of 184, bicarbonate of 15. IMAGING: No imaging was done. DIAGNOSES 1. Diabetic ketoacidosis with positive ketones and high anion gap. Recurrent diabetic ketoacidosis with noncompliance and difficult management due to personality disorder. 2. Possible otitis media. CODE STATUS: FULL CODE PLAN: Place the patient in ICU on insulin drip with a diabetic ketoacidosis protocol. Follow her sugars and anion gap and ketones as per diabetic ketoacidosis protocol. IV fluids. The overall plan is for no excessive narcotic use in this patient who might abuse this. Eardrops if she will allow. Advance the diet when she is awake. JOB #: [id number] EXT JOB #:[id number] BRYANNA
[2017-01-05] MEDS: NEOMYCIN/POLYMYX/HC OTIC DROPS RIGHTEAR SCH (21:59)
[2017-01-06] MEDS ORDERED: DEXTROSE 50% ABBOJECT 25 GM/50 ML SYRINGE IVP ONE ×2 (00:07→05:32)
[2017-01-06] MEDS: INSULIN REGULAR HUMAN 100 UNIT/1 ML 10 ML MDV SUBQ SCH ×3 (00:18→12:21)
[2017-01-06] MEDS ORDERED: DEXTROSE 5% 1,000 ML IV SCH (01:00)
[2017-01-06] MEDS ORDERED: INSULIN GLARGINE 300 UNIT/3 ML PEN SUBQ SCH (05:31)
[2017-01-06] MEDS: DEXTROSE 5% 1,000 ML IV SCH ×2 (05:35→08:47)
[2017-01-06] MEDS ORDERED: DEXTROSE 50% ABBOJECT 25 GM/50 ML SYRINGE ONE (05:39)
[2017-01-06] MEDS: NEOMYCIN/POLYMYX/HC OTIC DROPS RIGHTEAR SCH ×2 (05:40→13:55)
[2017-01-06 06:28] LABS: BASOPHILS # (AUTO) 0.1 10^3/uL (0.0-0.1); BASOPHILS % (AUTO) 1.3 %; EOSINOPHILS % (AUTO) 0.4 %; HCT - HEMATOCRIT 26.2 % (37.0-47.0); HGB - HEMOGLOBIN 8.1 g/dL (12.0-16.0); LYMPHOCYTES # (AUTO) 1.3 10^3/uL (1.5-3.5); LYMPHOCYTES % (AUTO) 29.7 %; MEAN CORPUSCULAR HGB CONC 30.8 g/dL (32.0-36.0); MEAN CORPUSCULAR VOLUME 77.8 fL (81.0-99.0); MEAN PLATELET VOLUME 7.3 fL (7.9-10.8); MONOCYTES # (AUTO) 0.3 10^3/uL (0.0-1.0); NEUTROPHILS # (AUTO) 2.7 10^3/uL (1.5-6.6); NEUTROPHILS % (AUTO) 61.6 %; RED BLOOD COUNT 3.37 10^6/uL (4.20-5.40); RED CELL DISTRIBUTION WIDTH 15.9 % (12.0-15.0); UNCORRECTED WHITE BLOOD COUNT 4.5 x10^3/uL; WHITE BLOOD COUNT 4.5 x10^3/uL (4.8-10.8)
[2017-01-06 06:42] LABS: ALBUMIN/GLOBULIN RATIO 1.2 (1.0-2.2); BILIRUBIN,TOTAL 0.2 mg/dL (0.2-1.0); BUN - BLOOD UREA NITROGEN 9 mg/dL (6-20); CALCIUM 7.4 mg/dL (8.5-10.3); CARBON DIOXIDE - CO2 21 mmol/L (21-32); CHLORIDE 112 mmol/L (101-111); CREATININE 0.3 mg/dL (0.4-1.0); GFR - MDRD 253 (>89); GLUCOSE 132 mg/dL (70-100); MAGNESIUM 1.8 mg/dL (1.7-2.8); PHOSPHORUS 2.6 mg/dL (2.5-4.6); SODIUM 138 mmol/L (135-145); TOTAL PROTEIN 4.7 g/dL (6.7-8.2)
[2017-01-06 06:43] LABS: POTASSIUM 2.5 mmol/L (3.5-5.0)
[2017-01-06 06:44] LABS: VBG PH 7.448 (7.31-7.41)
[2017-01-06 06:45] LABS: CALCIUM, IONIZED 1.06 mmol/L (1.15-1.33)
[2017-01-06] MEDS: POTASSIUM CHLOR 20 MEQ/100 ML 20 MEQ/100 ML BAG IV SCH ×2 (08:36→09:33)
[2017-01-06] MEDS: NICOTINE 14 MG PATCH TOP SCH (08:39)
[2017-01-06] MEDS: KETOROLAC 30 MG/ML VIAL IVP PRN (08:56)
[2017-01-06] MEDS ORDERED: MICONAZOLE CREAM 118 ML TUBE TOP SCH (09:00)
[2017-01-06] MEDS: HYDROmorphone 1 MG/ML SYRINGE IVP PRN ×3 (09:53→15:02)
[2017-01-06] MEDS: LORazepam 2 MG/ML SYRINGE IVP PRN ×2 (09:54→13:56)
[2017-01-06] MEDS: POTASSIUM CHLORIDE 20 MEQ TABLET PO SCH ×2 (10:11→13:55)
[2017-01-06] MEDS ORDERED: ACETAMINOPHEN 160 MG/5 ML SUSP UDC PO PRN (12:06)
[2017-01-06 12:40] VITALS: BP 146/95
--- NOTE | 2017-01-06 14:44 | Discharge Plan ---
Discharge Plan Disposition: 01 Home, Self Care Condition: Fair Diet: Diabetic Shower Restrictions: No Driving Restrictions: Yes No Smoking: If you smoke, Please STOP! Call for help.
--- NOTE | 2017-01-08 12:10 | DISCHARGE SUMMARY ---
DATE OF ADMISSION: 01/04/2017 DATE OF DISCHARGE: 01/06/2017 ADDENDUM TO DISCHARGE SUMMARY 01/04/2017-01/06/2017 PHYSICAL EXAMINATION AT THE TIME OF DISCHARGE NEUROLOGIC: Obtunded currently but probably lethargic due to recent DKA. HOSPITAL COURSE AND DISCHARGE DIAGNOSES 5. Possible right-sided otitis media, unproven at the time of discharge. HOSPITAL COURSE: This is a 36-year-old white female with history of insulin- dependent diabetes, frequent admissions for DKA, nearly twice a month, medical noncompliance with medications, methamphetamine and other drug abuse, personality disorder who presents with lethargy and DKA. The patient had been started on DKA protocol in the emergency room. FAMILY HISTORY: No diabetes in the history. SOCIAL HISTORY: The patient is a nonsmoker, but uses vaping and methamphetamine use and other pipe inhalation of unknown drugs. She does not drink alcohol. The patient has been evicted from multiple facilities because of her noncompliance. She is homeless. There is no POA. She has not signed a POLST. PAST MEDICAL HISTORY: Diabetes on insulin, noncompliance, drug abuse, psychiatric disorder undefined. ALLERGIES 1. CODEINE. 2. HYDROCODONE. 3. MILK. 4. NITROFURANTOIN. 5. PAPER TAPE. MEDICATIONS AT HOME 1. Lyrica. 2. Methocarbamol. 3. Long-acting insulin, as well as short-acting insulin, but currently she probably has none of these in her possession according to her. REVIEW OF SYSTEMS: A comprehensive review of systems was done from chart review and asking her questions. She was lethargic. The only positive findings are as above in the HPI. PHYSICAL EXAMINATION GENERAL: Reveals a white female who is sleeping, arousable to name, but falls back asleep. She is in no respiratory distress. She is lying in a left lateral decubitus position. VITAL SIGNS: 154/105, heart rate 118 in sinus tachycardia, afebrile, respiratory rate 24, oxygen saturation 98% on room air. HEENT: Reveals edentulous, dry mucous membranes. NECK: Without JVD or thyromegaly. CHEST: Clear. HEART: Heart sounds normal. ABDOMEN: Soft with no organomegaly or tenderness. EXTREMITIES: Show no clubbing, cyanosis, or edema. NEUROLOGICAL: Obtunded currently, but probably lethargic due to recent DKA. LABORATORY DATA: Sodium 130, potassium 5.7, BUN 24, creatinine 1.1, glucose 572 , bilirubin 1.5. HOSPITAL COURSE AND DISCHARGE DIAGNOSES 1. Diabetic ketoacidosis, recurrent. 2. Noncompliance. 3. Drug abuse. 4. Personality disorder, undefined. 5. Possible right-sided otitis media, unproven at the time of discharge. The patient was placed on a DKA protocol with IV fluids, IV insulin drip, which was transitioned over to subcutaneous insulin. She was more awake on the second day and able to take p.o. fluids. She drank nearly 500 mL of liquid with her first p.o. intake and developed abdominal pain, then nausea and vomiting, and then diarrhea. She was put back on bowel rest with n.p.o. status until her diarrhea resolved 1 day later. Her abdominal pain also resolved with this. She was given Ativan and pain medications for management. She was able to take a solid diet, carb controlled on the day of discharge. MEDICATIONS AT DISCHARGE: Included at admission, and she was given new prescriptions for Robaxin 7 pills and Lyrica. pills. EXAM AT DISCHARGE: Normal vital signs. Skin warm and dry. Other than edentulous condition, the rest of her physical exam was unremarkable. FOLLOWUP: Follow up with her PCP if she should choose one or in a clinic. CODE STATUS: FULL CODE. TIME REQUIRED FOR COMPLETION OF DISCHARGE: 30 minutes. JOB #: [id number] EXT JOB #:[id number] [facility] [place]
== END 2017-01-06 15:15 | disposition home or self-care (01) | DRG 639 ==
LOC: EDUNIT# → ED 09:58 → ICU 15:13
PROVIDERS: ADMIT Internal Medicine; ATTEND Internal Medicine
DX: E10.10 Type 1 diabetes mellitus with ketoacidosis without coma (principal); H66.001 Acute suppurative otitis media without spontaneous rupture of ear drum, right ear; E10.42 Type 1 diabetes mellitus with diabetic polyneuropathy; E10.51 Type 1 diabetes mellitus with diabetic peripheral angiopathy without gangrene; I10 Essential (primary) hypertension; E78.00 Pure hypercholesterolemia, unspecified; F32.9 Major depressive disorder, single episode, unspecified; F41.0 Panic disorder [episodic paroxysmal anxiety]; F17.290 Nicotine dependence, other tobacco product, uncomplicated; F15.10 Other stimulant abuse, uncomplicated; F60.9 Personality disorder, unspecified; I25.2 Old myocardial infarction; Z79.4 Long term (current) use of insulin; Z59.0 Homelessness; Z78.1 Physical restraint status; Z91.14 Patient's other noncompliance with medication regimen
CPT/HCPCS: 36415; 74176; 80048; 80053; 80306; 80320; 81001; 81003; 81025; 82009; 82330; 82803; 82947; 83690; 83735; 84100; 84132; 85025; 87045; 87046; 87086; 87150; 93005; 96361; 96365; 96372; 96375; 99284; 99285

== ENCOUNTER 2017-01-13 11:11 | Outpatient (CLI) | payer MEDICAID | END 2017-01-13 11:12 | disposition critical access hospital (66) | LOC: EMS 11:11 | PROVIDERS: ATTEND Surgery | DX: R41.0 Disorientation, unspecified (principal) | CPT/HCPCS: A0425; A0427 ==

== ENCOUNTER 2017-01-13 11:29 | Inpatient (IN) | payer MEDICAID ==
[2017-01-13] MEDS ORDERED: INSULIN REGULAR HUMAN 100 UNIT/1 ML 10 ML MDV IVP STA (11:35)
[2017-01-13] MEDS ORDERED: SODIUM CHLORIDE 0.9% 1,000 ML IV ONE ×2 (11:35→13:21)
[2017-01-13] MEDS ORDERED: INSULIN REGULAR HUMAN 100 UNIT in SODIUM CHLORIDE 0.9% 100ML 99 ML IV STA (11:35)
[2017-01-13] MEDS ORDERED: ONDANSETRON 4 MG/2 ML VIAL IVP STA (11:36)
--- NOTE | 2017-01-13 11:38 | ED Physician Documentation ---
History of Present Illness - Stated complaint Stated Complaint: DIABETIC PROBLEM - Chief complaint Chief Complaint: General - Additonal information Additional information: hx from EMS 36 f well known to EMS and ER brittle diabetic, homeless, IVDA meth, non complaint with outpt meds, freq admit for DKA Review of Systems Unable to obtain: Uncooperative PD PAST MEDICAL HISTORY - Past Medical History Past Medical History: Yes Cardiovascular: Hypertension, High cholesterol, Peripheral Vascular Disease, [place] Respiratory: None Neuro: Peripheral neuropathy Endocrine/Autoimmune: Type 1 diabetes GI: Pancreatitis ALLEY TENDER: None : None HEENT: None Psych: Depression, Anxiety, Panic attacks Musculoskeletal: Fibromyalgia Derm: None - Past Surgical History Past Surgical History: Yes General: Cholecystectomy HEENT: Tonsil/Adenoidectomy - Present Medications Home Medications: Ambulatory Orders Medication Instructions Recorded Confirmed Insulin Glargine [Lantus Solostar] 70 unit SUBQ BID #2 pen 12/23/16 01/04/17 Methocarbamol [Robaxin] 500 mg PO BID PRN #10 tablet 01/06/17 Pregabalin [Lyrica] 100 mg PO DAILY #7 capsule 01/06/17 - Allergies Allergies/Adverse Reactions: Allergies Allergy/AdvReac Type Severity Reaction Status Date / Time codeine Allergy Hives Verified 01/04/17 10:12 hydrocodone Allergy Hives Verified 01/04/17 10:12 milk AdvReac Cramps Verified 01/04/17 10:12 nitrofurantoin AdvReac Headache Verified 01/04/17 10:12 [From Macrobid] PAPER TAPE AdvReac Unknown Uncoded 01/04/17 10:12 - Social History Does the pt smoke?: Yes Smoking Status: Current every day smoker Does the pt drink ETOH?: No Does the pt have substance abuse?: No - Immunizations Immunizations are current?: Yes - POLST Patient has POLST: No PD ED PE NORMAL - Vitals Vital signs reviewed: Yes (tachy) - General General: Other (arousable asking for water) - HEENT HEENT: PERRL (3) - Cardiac Cardiac: RRR (tachy), No murmur - Respiratory Respiratory: No respiratory distress, Clear bilaterally - Abdomen Abdomen: Soft, Non tender - Extremities Extremities: No deformity - Neuro Neuro: Other (arousable, asking for water, moving all ext) Results - Vitals Vitals: Vital Signs - 24 hr 01/13/17 01/13/17 01/13/17 11:32 12:26 12:37 Temperature 35.9 C L 36.0 C L Heart Rate 112 H 111 H 113 H Respiratory 28 H 24 20 Rate Blood Pressure 149/78 H 145/80 H 149/91 H O2 Saturation 100 100 100 Oxygen O2 Source [Without Activity] Room air O2 Source Room air - Labs Labs: Laboratory Tests 01/13/17 01/13/17 12:13 12:13 VBG pH 6.828 L VBG pCO2 17.3 L VBG pO2 91.6 H VBG HCO3 2.8 L VBG Total CO2 3.3 L VBG O2 Saturation 91.7 H VBG Base Excess -30.2 L Sodium 140 Potassium 5.0 Chloride 103 Carbon Dioxide < 6 L* Anion Gap 31.0 H BUN 34 H Creatinine 1.4 H Estimated GFR (MDRD) 43 L Glucose 818 H* Calcium 9.3 Total Bilirubin 2.3 H AST 40 ALT 80 H Alkaline Phosphatase 212 H Total Protein 8.7 H Albumin 4.8 Globulin 3.8 Albumin/Globulin Ratio 1.2 Lipase 30 Serum HCG, Qual NEGATIVE Serum Ketones LARGE H PD MEDICAL DECISION MAKING - ED course ED course: IV access by anesthesia given fluids insulin bolus, insulin gtt promptly seen and admitted by Dr Sandhu Departure - Departure Disposition: 66 [facility] DC/Xfer Clinical Impression: DKA (diabetic ketoacidoses) Qualifiers: Diabetes mellitus type: type 1 Diabetes mellitus complication detail: without coma Qualified Code(s): E10.10 - Type 1 diabetes mellitus with ketoacidosis without coma
[2017-01-13] MEDS ORDERED: ONDANSETRON 4 MG/2 ML VIAL ONE (11:45)
[2017-01-13] MEDS ORDERED: INSULIN REGULAR HUMAN 100 UNIT/1 ML 10 ML MDV ONE (11:46)
[2017-01-13 12:23] LABS: VBG BASE EXCESS -30.2 mmol/L (-2 - +2); VBG OXYGEN SATURATION 91.7 % (60-80); VBG PH 6.828 (7.31-7.41); VBG TOTAL CO2 3.3 mmol/L (24-29)
[2017-01-13 12:42] LABS: ALBUMIN/GLOBULIN RATIO 1.2 (1.0-2.2); BILIRUBIN,TOTAL 2.3 mg/dL (0.2-1.0); BUN - BLOOD UREA NITROGEN 34 mg/dL (6-20); CALCIUM 9.3 mg/dL (8.5-10.3); CHLORIDE 103 mmol/L (101-111); CREATININE 1.4 mg/dL (0.4-1.0); GFR - MDRD 43 (>89); LIPASE 30 U/L (22-51); SODIUM 140 mmol/L (135-145); TOTAL PROTEIN 8.7 g/dL (6.7-8.2)
[2017-01-13 12:43] LABS: BASOPHILS # (AUTO) 0.1 10^3/uL (0.0-0.1); BASOPHILS % (AUTO) 0.7 %; CARBON DIOXIDE - CO2 < 6 mmol/L (21-32); HGB - HEMOGLOBIN 11.4 g/dL (12.0-16.0); LYMPHOCYTES # (AUTO) 1.8 10^3/uL (1.5-3.5); LYMPHOCYTES % (AUTO) 11.6 %; MEAN CORPUSCULAR HEMOGLOBIN 24.5 pg (27.0-31.0); MEAN PLATELET VOLUME 8.2 fL (7.9-10.8); MONOCYTES # (AUTO) 0.4 10^3/uL (0.0-1.0); MONOCYTES % (AUTO) 2.8 %; NEUTROPHILS # (AUTO) 13.2 10^3/uL (1.5-6.6); NEUTROPHILS % (AUTO) 84.9 %; NUCLEATED RED BLOOD CELLS AUTO 0.1 /100WBC; RED BLOOD COUNT 4.67 10^6/uL (4.20-5.40); RED CELL DISTRIBUTION WIDTH 18.1 % (12.0-15.0); UNCORRECTED WHITE BLOOD COUNT 15.5 x10^3/uL; WHITE BLOOD COUNT 15.5 x10^3/uL (4.8-10.8)
[2017-01-13 12:48] LABS: GLUCOSE 818 mg/dL (70-100)
[2017-01-13] MEDS ORDERED: INSULIN REGULAR HUMAN 100 UNIT in SODIUM CHLORIDE 0.9% 100ML 99 ML IV SCH (12:57)
[2017-01-13] MEDS ORDERED: SODIUM CHLORIDE FLUSH 0.9% 10 ML SYRINGE IVP PRN (12:57)
[2017-01-13] MEDS ORDERED: ONDANSETRON ODT 4 MG TABLET TL PRN (12:57)
[2017-01-13] MEDS ORDERED: LORazepam 2 MG/ML SYRINGE IVP PRN (13:09)
[2017-01-13 13:11] LABS: HCT - HEMATOCRIT 37.8 % (37.0-47.0); MEAN CORPUSCULAR VOLUME 81.1 fL (81.0-99.0)
[2017-01-13 13:12] LABS: MEAN CORPUSCULAR HGB CONC 30.2 g/dL (32.0-36.0)
[2017-01-13 14:49] LABS: HEMOGLOBIN A1C 1.45 g/dL
[2017-01-13 14:53] LABS: VBG PH 7.017 (7.31-7.41)
[2017-01-13 14:54] LABS: VBG BASE EXCESS -24.2 mmol/L (-2 - +2); VBG TOTAL CO2 5.9 mmol/L (24-29)
[2017-01-13 15:12] LABS: BUN - BLOOD UREA NITROGEN 29 mg/dL (6-20); CALCIUM 8.6 mg/dL (8.5-10.3); CHLORIDE 113 mmol/L (101-111); CREATININE 1.1 mg/dL (0.4-1.0); GFR - MDRD 57 (>89); GLUCOSE 467 mg/dL (70-100); POTASSIUM 4.4 mmol/L (3.5-5.0); SODIUM 146 mmol/L (135-145)
[2017-01-13 15:13] LABS: CARBON DIOXIDE - CO2 < 6 mmol/L (21-32)
[2017-01-13] MEDS: SODIUM CHLORIDE 0.9% 1,000 ML IV SCH ×2 (15:15→21:01)
[2017-01-13] MEDS: HALOPERIDOL 5 MG/ML VIAL IVP PRN ×2 (15:48→21:33)
[2017-01-13 17:49] LABS: CALCIUM 8.7 mg/dL (8.5-10.3); CREATININE 0.9 mg/dL (0.4-1.0)
[2017-01-13 18:15] LABS: MAGNESIUM 2.3 mg/dL (1.7-2.8)
[2017-01-13] MEDS ORDERED: INSULIN GLARGINE 300 UNIT/3 ML PEN SUBQ ONE (19:16)
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
[2017-01-13] MEDS: INSULIN GLARGINE 300 UNIT/3 ML PEN SUBQ SCH (19:45)
[2017-01-13] MEDS: LORazepam 2 MG/ML VIAL IVP PRN (20:17)
[2017-01-13 20:35] LABS: BUN - BLOOD UREA NITROGEN 20 mg/dL (6-20); CALCIUM 8.5 mg/dL (8.5-10.3); CHLORIDE 118 mmol/L (101-111); CREATININE 0.9 mg/dL (0.4-1.0); GFR - MDRD 71 (>89); GLUCOSE 153 mg/dL (70-100); POTASSIUM 4.2 mmol/L (3.5-5.0); SODIUM 147 mmol/L (135-145)
[2017-01-13 20:36] LABS: CARBON DIOXIDE - CO2 11 mmol/L (21-32)
[2017-01-13] MEDS ORDERED: D5.45NS W/20 MEQ KCL 1,000 ML IV STA ×2 (20:41→22:46)
[2017-01-13] MEDS: INSULIN ASPART 300 UNIT/3 ML PEN SUBQ SCH (20:44)
[2017-01-13] MEDS: SODIUM CHLORIDE FLUSH 0.9% 10 ML SYRINGE IVP SCH (21:02)
[2017-01-13 22:42] LABS: CALCIUM 8.1 mg/dL (8.5-10.3); CREATININE 0.8 mg/dL (0.4-1.0); POTASSIUM 3.9 mmol/L (3.5-5.0)
[2017-01-13] MEDS ORDERED: ACETAMINOPHEN 1,000 MG/100 ML 100 ML IV PRN ×2 (22:46→22:47)
[2017-01-14] MEDS ORDERED: NS W/20 MEQ KCL 1,000 ML IV SCH (04:30)
[2017-01-14] MEDS: LORazepam 2 MG/ML VIAL IVP PRN (05:15)
[2017-01-14] MEDS: SODIUM CHLORIDE FLUSH 0.9% 10 ML SYRINGE IVP SCH ×3 (05:21→21:34)
[2017-01-14 05:58] LABS: BASOPHILS % (AUTO) 0.2 %; EOSINOPHILS % (AUTO) 0.1 %; HCT - HEMATOCRIT 29.5 % (37.0-47.0); HGB - HEMOGLOBIN 9.1 g/dL (12.0-16.0); LYMPHOCYTES # (AUTO) 2.5 10^3/uL (1.5-3.5); MEAN CORPUSCULAR HEMOGLOBIN 24.1 pg (27.0-31.0); MEAN CORPUSCULAR HGB CONC 30.9 g/dL (32.0-36.0); MEAN CORPUSCULAR VOLUME 77.9 fL (81.0-99.0); MEAN PLATELET VOLUME 7.2 fL (7.9-10.8); MONOCYTES # (AUTO) 0.7 10^3/uL (0.0-1.0); MONOCYTES % (AUTO) 6.1 %; NEUTROPHILS # (AUTO) 7.8 10^3/uL (1.5-6.6); NEUTROPHILS % (AUTO) 70.6 %; RED BLOOD COUNT 3.79 10^6/uL (4.20-5.40); RED CELL DISTRIBUTION WIDTH 16.7 % (12.0-15.0)
[2017-01-14 06:00] LABS: CALCIUM 8.2 mg/dL (8.5-10.3); CREATININE 0.6 mg/dL (0.4-1.0); POTASSIUM 3.5 mmol/L (3.5-5.0)
[2017-01-14] MEDS ORDERED: INSULIN REGULAR HUMAN 100 UNIT in SODIUM CHLORIDE 0.9% 100ML 99 ML IV SCH (06:00)
[2017-01-14] MEDS ORDERED: D5.45NS W/20 MEQ KCL 1,000 ML IV SCH (06:00)
[2017-01-14] MEDS: DEXTROSE 5% 1,000 ML IV SCH ×2 (06:42→21:33)
[2017-01-14] MEDS ORDERED: POTASSIUM CHLORIDE 20 MEQ TABLET PO ONE (08:00)
[2017-01-14] MEDS: INSULIN ASPART 300 UNIT/3 ML PEN SUBQ SCH ×4 (08:37→20:26)
[2017-01-14] MEDS: INSULIN GLARGINE 300 UNIT/3 ML PEN SUBQ SCH ×2 (08:43→20:32)
[2017-01-14] MEDS: ACETAMINOPHEN 325 MG TABLET PO PRN (08:50)
[2017-01-14] MEDS ORDERED: HALOPERIDOL 5 MG/ML VIAL IVP PRN (15:02)
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
[2017-01-14] MEDS ORDERED: HALOPERIDOL 5 MG/ML VIAL IM PRN (18:53)
[2017-01-14] MEDS: NICOTINE 21 MG PATCH TOP SCH (20:25)
[2017-01-15] MEDS: SODIUM CHLORIDE FLUSH 0.9% 10 ML SYRINGE IVP SCH ×2 (05:22→07:22)
[2017-01-15 06:22] LABS: CALCIUM 8.7 mg/dL (8.5-10.3); CREATININE 0.4 mg/dL (0.4-1.0); MAGNESIUM 1.8 mg/dL (1.7-2.8); POTASSIUM 2.9 mmol/L (3.5-5.0)
[2017-01-15] MEDS ORDERED: POTASSIUM CHLOR 10 MEQ/100 ML 10 MEQ/100 ML BAG IV SCH (09:00)
[2017-01-15] MEDS ORDERED: POTASSIUM CHLORIDE 20 MEQ TABLET PO SCH (09:00)
[2017-01-15] MEDS: NICOTINE 21 MG PATCH TOP SCH (09:21)
[2017-01-15] MEDS: ACETAMINOPHEN 325 MG TABLET PO PRN ×2 (09:22→12:58)
[2017-01-15] MEDS: INSULIN GLARGINE 300 UNIT/3 ML PEN SUBQ SCH (09:24)
[2017-01-15] MEDS: INSULIN ASPART 300 UNIT/3 ML PEN SUBQ SCH ×2 (09:28→11:43)
[2017-01-15 12:14] VITALS: BP 154/98
--- NOTE | 2017-01-15 12:18 | Discharge Plan ---
Discharge Plan Disposition: 01 Home, Self Care Condition: Stable Diet: Diabetic Activity Restrictions: Activity as Tolerated No Smoking: If you smoke, Please STOP! Call for help.
--- NOTE | 2017-01-15 15:49 | DISCHARGE SUMMARY ---
DATE OF ADMISSION: 01/13/2017 DATE OF DISCHARGE: 01/15/2017 HISTORY OF PRESENT ILLNESS: This is a 36-year-old white female with a history of diabetes with frequent admissions with DKA due to noncompliance with her diet and medications, history of drug abuse, and history of homelessness. The patient presented after been found down by passersby and was brought to the emergency room, again in DKA. HOSPITAL COURSE AND DISCHARGE DIAGNOSES 1. Diabetic ketoacidosis. The patient had admission glucose of 818, anion gap of 31, and moderate ketones in the urine. She was placed in the ICU on an insulin drip and saline hydration. These were eventually weaned down, and she was placed on sliding scale insulin, plus subcutaneous insulin. She was able to take a diet after she awoke from the obtunded condition. She was discharged on her same management for diabetes. 2. Polysubstance abuse. On her toxicology screen, the patient was positive for opiates and methamphetamines. During her hospital stay, she required a Nicoderm patch to help with nicotine cravings from her smoking history, as well. 3. Homelessness. The patient had previously been offered assistance by our Social Works and has refused it in the past. She was discharged independently and was planning to go to a homeless long term via taxi. PHYSICAL EXAMINATION ON DISCHARGE VITAL SIGNS: Blood pressure 154/98, pulse of 97 and sinus rhythm, afebrile, oxygen saturation 99% on room air. HEENT: Edentulous mouth and moist oral mucosa. NECK: Supple and no JVD. CHEST: Clear. CARDIOVASCULAR: Heart sounds normal. ABDOMEN: Soft, nontender. EXTREMITIES: Without clubbing, cyanosis, or edema. NEUROLOGIC: Intact. LABORATORY DATA AND IMAGING: Reviewed and as above. CODE STATUS: FULL CODE. FOLLOWUP: Recommended PCP followup or an outpatient clinic followup as required. MEDICATIONS AT DISCHARGE 1. Lantus insulin 70 units subcu b.i.d. 2. Robaxin 500 mg p.o. b.i.d. 3. Lyrica 100 mg p.o. daily. TIME REQUIRED FOR THIS DISCHARGE: 30 minutes. JOB #: [id number] EXT JOB #:[id number] [facility]
== END 2017-01-15 14:59 | disposition home or self-care (01) | DRG 639 ==
LOC: ED 11:29 → ICU 12:57 → MS2 01-14 16:05
PROVIDERS: ADMIT Specialist; ATTEND Internal Medicine
DX: E10.10 Type 1 diabetes mellitus with ketoacidosis without coma (principal); T38.3X6A Underdosing of insulin and oral hypoglycemic [antidiabetic] drugs, initial encounter; E86.0 Dehydration; R45.6 Violent behavior; E10.42 Type 1 diabetes mellitus with diabetic polyneuropathy; F19.10 Other psychoactive substance abuse, uncomplicated; F17.200 Nicotine dependence, unspecified, uncomplicated; G89.29 Other chronic pain; M79.7 Fibromyalgia; I10 Essential (primary) hypertension; R41.3 Other amnesia; S00-T88 Injury, poisoning and certain other consequences of external causes; I27.20 Pulmonary hypertension, unspecified; I07.1 Rheumatic tricuspid insufficiency; I99.8 Other disorder of circulatory system; F32.9 Major depressive disorder, single episode, unspecified; F41.0 Panic disorder [episodic paroxysmal anxiety]; E10.51 Type 1 diabetes mellitus with diabetic peripheral angiopathy without gangrene; I25.2 Old myocardial infarction; Z59.0 Homelessness; Z91.11 Patient's noncompliance with dietary regimen; Z91.14 Patient's other noncompliance with medication regimen; Z78.1 Physical restraint status; Z87.01 Personal history of pneumonia (recurrent)
CPT/HCPCS: 36415; 80048; 80053; 80306; 82009; 82803; 83036; 83690; 83735; 84100; 84703; 85025; 87150; 96361; 96374; 99283; 99284

== ENCOUNTER 2017-01-22 18:22 | Outpatient (CLI) | payer MEDICAID | END 2017-01-22 18:23 | disposition critical access hospital (66) | LOC: EMS 18:22 | PROVIDERS: ATTEND Surgery | DX: R07.89 Other chest pain (principal) | CPT/HCPCS: A0425; A0427 ==

== ENCOUNTER 2017-01-22 18:44 | Inpatient (IN) | payer MEDICAID ==
[2017-01-22] MEDS ORDERED: HYDROmorphone 1 MG/ML SYRINGE IVP STA (19:15)
[2017-01-22] MEDS ORDERED: ONDANSETRON 4 MG/2 ML VIAL IVP STA (19:15)
[2017-01-22] MEDS ORDERED: SODIUM CHLORIDE 0.9% 1,000 ML IV ONE ×2 (19:15→21:00)
[2017-01-22] MEDS ORDERED: INSULIN REGULAR HUMAN 100 UNIT/1 ML 10 ML MDV IVP STA (19:16)
[2017-01-22] MEDS ORDERED: INSULIN REGULAR HUMAN 100 UNIT in SODIUM CHLORIDE 0.9% 100ML 99 ML IV STA (19:16)
--- NOTE | 2017-01-22 19:17 | ED Physician Documentation ---
PD HPI NVD - Stated complaint Stated Complaint: DIABETIC/DKA - Chief complaint Chief Complaint: Neuro - History obtained from History obtained from: Patient - History of Present Illness Timing - onset: Yesterday Timing - duration: Days (2) Timing - details: Gradual onset, Still present Associated symptoms: Abdominal pain, Loss of appetite. No: Fever, Near syncope / syncope, Dysuria (but large amount urination) Contributing factors: Diabetes (she noted her blood sugars to be elevated over 400 for the past 2-3 days. Has had some URI symptoms with congestion, nausea, some chills feeling.) Improved by: Vomiting Worsened by: Eating Similar symptoms before: Diagnosis (DKA frequently) Recently seen: Emergency Dept Review of Systems Constitutional: denies: Fever, Chills Nose: reports: Congestion Throat: denies: Sore throat Cardiac: denies: Chest pain / pressure, Palpitations Respiratory: reports: Cough GI: reports: Nausea, Vomiting, Diarrhea. denies: Abdominal Pain, Constipation : reports: Frequency. denies: Dysuria Skin: reports: Lesions (has had sore on left toe for few months, without healing. No drainage. It hurts continually. Is supposed to see Wound Care clinic but has not gotten appt as yet.). denies: Rash Musculoskeletal: reports: Back pain (chronic) Neurologic: reports: Generalized weakness. 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 : None HEENT: None Psych: Depression, Anxiety, Panic attacks Musculoskeletal: Fibromyalgia Derm: None - Past Surgical History Past Surgical History: Yes General: Cholecystectomy HEENT: Tonsil/Adenoidectomy - Present Medications Home Medications: Ambulatory Orders Medication Instructions Recorded Confirmed Insulin Glargine [Lantus Solostar] 70 unit SUBQ BID #2 pen 12/23/16 01/22/17 Methocarbamol [Robaxin] 500 mg PO BID PRN #10 tablet 01/06/17 01/22/17 Insulin Aspart [NovoLOG] 5 unit SUBQ TIDWM 01/22/17 01/22/17 - Allergies Allergies/Adverse Reactions: Allergies Allergy/AdvReac Type Severity Reaction Status Date / Time codeine Allergy Hives Verified 01/22/17 18:59 hydrocodone Allergy Hives Verified 01/22/17 18:59 milk AdvReac Cramps Verified 01/22/17 18:59 nitrofurantoin AdvReac Headache Verified 01/22/17 18:59 [From Macrobid] PAPER TAPE AdvReac Unknown Uncoded 01/04/17 10:12 - Social History Does the pt smoke?: Yes Smoking Status: Current every day smoker Does the pt drink ETOH?: No Does the pt have substance abuse?: No - Immunizations Immunizations are current?: Yes - POLST Patient has POLST: No PD ED PE NORMAL - Vitals Vital signs reviewed: Yes - General General: Alert and oriented X 3, Well developed/nourished, Other (appears uncomfortable. ) - HEENT HEENT: Pharynx benign - Neck Neck: Supple, no meningeal sign, No adenopathy - Cardiac Cardiac: No murmur. No: RRR (tachycardic but regular. ) - Respiratory Respiratory: Clear bilaterally - Abdomen Abdomen: Normal bowel sounds, Soft, Non distended, Other (general abd tender with some guarding, but not focal. ) - Female Female : Deferred - Rectal Rectal: Deferred - Back Back: No CVA TTP - Derm Derm: Normal color - Extremities Extremities: Other (left 4th toe tip with thickened skin and ulceration, without drainage. Mild redness of toe, but not to dorsum of foot. ) - Neuro Neuro: Alert and oriented X 3, No motor deficit, Normal speech Results - Vitals Vitals: Vital Signs - 24 hr 01/22/17 01/22/17 01/22/17 18:45 19:21 19:57 Temperature 36.9 C Heart Rate 115 H 117 H 119 H Respiratory 16 24 22 Rate Blood Pressure 140/96 H 147/94 H 170/99 H O2 Saturation 100 100 100 Oxygen O2 Source [Without Activity] Room air O2 Source Nasal cannula - Labs Labs: Laboratory Tests 01/22/17 01/22/17 01/22/17 18:57 18:57 18:57 WBC 5.7 RBC 3.77 L Hgb 9.2 L Hct 29.5 L MCV 78.4 L MCH 24.5 L MCHC 31.3 L RDW 16.5 H Plt Count 354 MPV 7.8 L Neut # 3.1 Lymph # 2.1 Bureau # 0.4 Eos # 0.1 Baso # 0.0 Absolute Nucleated RBC 0.00 Nucleated RBC % 0.0 VBG pH VBG pCO2 VBG pO2 VBG HCO3 VBG Total CO2 VBG O2 Saturation VBG Base Excess Sodium 129 L Potassium 4.1 Chloride 99 L Carbon Dioxide 15 L Anion Gap 15.0 H BUN 24 H Creatinine 0.9 Estimated GFR (MDRD) 71 L Glucose 411 H Glycated Hemoglobin Estim Average Glucose Calcium 7.8 L Total Bilirubin 1.3 H AST 39 ALT 48 Alkaline Phosphatase 121 Troponin I < 0.04 Total Protein 5.9 L Albumin 3.5 Globulin 2.4 Albumin/Globulin Ratio 1.5 Lipase 69 H Serum HCG, Qual Urine Color Urine Clarity Urine pH Ur Specific [place] Urine Protein Urine Glucose (UA) Urine Ketones Urine Occult Blood Urine Nitrite Urine Bilirubin Urine Urobilinogen Ur Leukocyte Esterase Ur Microscopic Review Urine Culture Comments Serum Ketones 01/22/17 01/22/17 01/22/17 18:57 18:57 18:57 WBC RBC Hgb Hct MCV MCH MCHC RDW Plt Count MPV Neut # Lymph # Bureau # Eos # Baso # Absolute Nucleated RBC Nucleated RBC % VBG pH VBG pCO2 VBG pO2 VBG HCO3 VBG Total CO2 VBG O2 Saturation VBG Base Excess Sodium Potassium Chloride Carbon Dioxide Anion Gap BUN Creatinine Estimated GFR (MDRD) Glucose Glycated Hemoglobin 13.1 H Estim Average Glucose 329 H Calcium Total Bilirubin AST ALT Alkaline Phosphatase Troponin I Total Protein Albumin Globulin Albumin/Globulin Ratio Lipase Serum HCG, Qual NEGATIVE Urine Color Urine Clarity Urine pH Ur Specific [place] Urine Protein Urine Glucose (UA) Urine Ketones Urine Occult Blood Urine Nitrite Urine Bilirubin Urine Urobilinogen Ur Leukocyte Esterase Ur Microscopic Review Urine Culture Comments Serum Ketones LARGE H 01/22/17 01/22/17 19:27 20:40 WBC RBC Hgb Hct MCV MCH MCHC RDW Plt Count MPV Neut # Lymph # Bureau # Eos # Baso # Absolute Nucleated RBC Nucleated RBC % VBG pH 7.434 H VBG pCO2 26.2 L VBG pO2 51.5 H VBG HCO3 17.2 L VBG Total CO2 18.0 L VBG O2 Saturation 88.4 H VBG Base Excess -5.7 L Sodium Potassium Chloride Carbon Dioxide Anion Gap BUN Creatinine Estimated GFR (MDRD) Glucose Glycated Hemoglobin Estim Average Glucose Calcium Total Bilirubin AST ALT Alkaline Phosphatase Troponin I Total Protein Albumin Globulin Albumin/Globulin Ratio Lipase Serum HCG, Qual Urine Color LT. YELLOW Urine Clarity CLEAR Urine pH 6.0 Ur Specific [place] 1.015 Urine Protein NEGATIVE Urine Glucose (UA) >=1000 H Urine Ketones >=80 H Urine Occult Blood NEGATIVE Urine Nitrite NEGATIVE Urine Bilirubin NEGATIVE Urine Urobilinogen 0.2 (NORMAL) Ur Leukocyte Esterase NEGATIVE Ur Microscopic Review NOT INDICATED Urine Culture Comments NOT INDICATED Serum Ketones PD MEDICAL DECISION MAKING - ED course Complexity details: reviewed results (has large ketones and low CO2, though pH is normal. Early DKA and will treat as such. ), considered differential (seems c /w her prior DKA episodes, and will start treatment for such. ), d/w patient Departure - Departure Disposition: [facility] DC/Xfer Clinical Impression: Toe ulcer due to DM Qualifiers: Diabetes mellitus type: type 1 Laterality: left Non-pressure ulcer stage: limited to breakdown of skin Qualified Code(s): E10.621 - Type 1 diabetes mellitus with foot ulcer Nausea and vomiting Qualifiers: Vomiting type: unspecified Vomiting Intractability: non-intractable Qualified Code(s): R11.2 - Nausea with vomiting, unspecified DKA (diabetic ketoacidoses) Qualifiers: Diabetes mellitus type: type 1 Diabetes mellitus complication detail: without coma Qualified Code(s): E10.10 - Type 1 diabetes mellitus with ketoacidosis without coma Condition: Stable Record reviewed to determine appropriate education?: Yes Discharge Date/Time: 01/22/17 21:25
[2017-01-22 19:24] LABS: BASOPHILS % (AUTO) 0.8 %; EOSINOPHILS # (AUTO) 0.1 10^3/uL (0.0-0.7); EOSINOPHILS % (AUTO) 0.9 %; HCT - HEMATOCRIT 29.5 % (37.0-47.0); HGB - HEMOGLOBIN 9.2 g/dL (12.0-16.0); LYMPHOCYTES # (AUTO) 2.1 10^3/uL (1.5-3.5); LYMPHOCYTES % (AUTO) 36.4 %; MEAN CORPUSCULAR HEMOGLOBIN 24.5 pg (27.0-31.0); MEAN CORPUSCULAR HGB CONC 31.3 g/dL (32.0-36.0); MEAN CORPUSCULAR VOLUME 78.4 fL (81.0-99.0); MEAN PLATELET VOLUME 7.8 fL (7.9-10.8); MONOCYTES # (AUTO) 0.4 10^3/uL (0.0-1.0); MONOCYTES % (AUTO) 7.8 %; NEUTROPHILS # (AUTO) 3.1 10^3/uL (1.5-6.6); NEUTROPHILS % (AUTO) 54.1 %; RED BLOOD COUNT 3.77 10^6/uL (4.20-5.40); RED CELL DISTRIBUTION WIDTH 16.5 % (12.0-15.0); UNCORRECTED WHITE BLOOD COUNT 5.7 x10^3/uL; WHITE BLOOD COUNT 5.7 x10^3/uL (4.8-10.8)
[2017-01-22 19:30] LABS: ALBUMIN/GLOBULIN RATIO 1.5 (1.0-2.2); BILIRUBIN,TOTAL 1.3 mg/dL (0.2-1.0); CALCIUM 7.8 mg/dL (8.5-10.3); CREATININE 0.9 mg/dL (0.4-1.0); POTASSIUM 4.1 mmol/L (3.5-5.0); TOTAL PROTEIN 5.9 g/dL (6.7-8.2)
[2017-01-22 19:32] LABS: VBG BASE EXCESS -5.7 mmol/L (-2 - +2); VBG OXYGEN SATURATION 88.4 % (60-80); VBG PH 7.434 (7.31-7.41)
[2017-01-22] MEDS ORDERED: HYDROmorphone 1 MG/ML SYRINGE ONE (19:33)
[2017-01-22] MEDS ORDERED: ONDANSETRON 4 MG/2 ML VIAL ONE (19:33)
[2017-01-22] MEDS ORDERED: INSULIN REGULAR HUMAN 100 UNIT/1 ML 10 ML MDV ONE ×2 (19:36→19:52)
--- NOTE | 2017-01-22 19:59 | XRAY Preliminary Report ---
Exam: XR CHEST 1 VIEW IMPRESSION: Normal single view chest. [facility] SITE ID: [id number]
--- NOTE | 2017-01-22 20:01 | XRAY Report ---
EXAM: CHEST RADIOGRAPHY EXAM DATE: 01/22/2017 07:44 PM. CLINICAL HISTORY: Chest pain. COMPARISON: 12/21/2016. TECHNIQUE: 1 view. FINDINGS: Lungs/Pleura: No focal opacities evident. No pleural effusion. No pneumothorax. Mediastinum: Within exam limitations, the cardiomediastinal contour is normal. Other: No bony abnormality identified. IMPRESSION: Normal single view chest. [facility] Referring Provider Line: [phone] SITE ID: [id number]
[2017-01-22] MEDS ORDERED: MUPIROCIN 2% OINT 1 GM TOP STA (20:31)
[2017-01-22] MEDS ORDERED: LIDOCAINE OINTMENT 5% 35.44 GM TUBE TOP STA (20:31)
[2017-01-22] MEDS ORDERED: LIDOCAINE JELLY 2% 5 ML TUBE TOP STA (20:35)
[2017-01-22] MEDS ORDERED: MUPIROCIN 2% OINT 1 GM ONE (20:40)
[2017-01-22] MEDS ORDERED: LIDOCAINE JELLY 2% 5 ML TUBE TOP ONE (20:40)
[2017-01-22] MEDS ORDERED: INSULIN REGULAR HUMAN 100 UNIT in SODIUM CHLORIDE 0.9% 100ML 99 ML IV SCH (20:54)
[2017-01-22 20:56] LABS: BILIRUBIN,URINE NEGATIVE (NEGATIVE)
[2017-01-22 20:59] LABS: UA CHARGE (STRIP ONLY) YES; UR CULTURE IF IND NOT INDICATED
[2017-01-22] MEDS ORDERED: METOCLOPRAMIDE 10 MG/2 ML VIAL IVP PRN (20:59)
[2017-01-22] MEDS ORDERED: HYDROcod/ACETAM 5/325 MG TABLET PO PRN (21:02)
[2017-01-22 21:36] LABS: HEMOGLOBIN A1C 1.1 g/dL
[2017-01-22 21:47] LABS: CREATININE 0.9 mg/dL (0.4-1.0); POTASSIUM 3.9 mmol/L (3.5-5.0)
[2017-01-22] MEDS: METHOCARBAMOL 500 MG TABLET PO PRN (21:56)
[2017-01-22] MEDS: KETOROLAC 15 MG/ML VIAL IVP PRN (21:57)
[2017-01-22] MEDS: POTASSIUM CHLOR 10 MEQ/100 ML 10 MEQ/100 ML BAG IV SCH ×2 (22:16→23:22)
[2017-01-22] MEDS: SODIUM CHLORIDE FLUSH 0.9% 10 ML SYRINGE IVP SCH (23:23)
[2017-01-22] MEDS ORDERED: HYDROmorphone 0.5 MG/0.5 ML SYRINGE IVP PRN (23:26)
[2017-01-22] MEDS ORDERED: POTASSIUM PHOSPHATE 15 MMOL in SODIUM CHLORIDE 0.9% 250 ML IV SCH (23:45)
[2017-01-23] MEDS: SACCHAROMYCES BOULARDII 250 MG CAPSULE PO SCH ×3 (00:23→17:14)
[2017-01-23] MEDS: ONDANSETRON 4 MG/2 ML VIAL IVP PRN (00:52)
[2017-01-23 00:53] LABS: CALCIUM 7.5 mg/dL (8.5-10.3); CREATININE 0.5 mg/dL (0.4-1.0); MAGNESIUM 1.7 mg/dL (1.7-2.8); POTASSIUM 3.9 mmol/L (3.5-5.0)
[2017-01-23] MEDS ORDERED: CALCIUM GLUCONATE 1,000 MG in SODIUM CHLORIDE 0.9% 50 ML IV SCH (01:27)
[2017-01-23] MEDS ORDERED: INSULIN REGULAR HUMAN 100 UNIT/1 ML 10 ML MDV SUBQ SCH (01:30)
[2017-01-23] MEDS: INSULIN GLARGINE 300 UNIT/3 ML PEN SUBQ SCH ×3 (02:03→20:56)
--- NOTE | 2017-01-23 05:04 | HISTORY & PHYSICAL EXAMINATION ---
DATE OF ADMISSION: 01/22/2017 CHIEF COMPLAINT: "Having DKA again." HISTORY OF PRESENT ILLNESS: The patient is a 36-year-old, socially challenged, unfortunate, white female with past medical history of type 1 diabetes, polysubstance abuse and noncompliance usually leading to diabetic ketoacidosis, requiring frequent hospital admissions. The patient is well known to [facility] and hospitalist service. She usually gets admitted at least once or twice a month. There are very informative history and physical notes in the electronic medical record, dictated by the day team hospitalist regarding this patient's social background and history. In any case, she was just discharged on January 15. She had a short hospital stay, was treated for diabetic ketoacidosis. The patient reports that after she was discharged, she went back to her challenging situation, being homeless, living in a tent behind a [employer]. She tells me that there are several people occupying her tent and using methamphetamine, and there is just no way for her to stay away. Even if she wanted, she could not quit using meth. She reports only smoking and snorting methamphetamine, but not injecting. Regarding her outpatient medications, she tells me that she takes her insulin Lantus regularly and uses sliding scale as well. She would use her insulin until she ran out. As she was just discharged from the hospital, I suppose she still had enough insulin, but I could not get any straightforward information from her. She did mention that she gave herself 75 units insulin Lantus, and regardless her blood glucose was still in the 400s. Regarding her symptoms, she started with cold-like symptoms, subsequently developed intractable nausea and abdominal pain. She complained of increased abdominal bloating, gas and belching. These symptoms are always how her DKA presents. Regarding her abdominal pain, she did not report anything particularly different than prior episodes. Notably, in the past, it was mentioned that her chronic abdominal pain could be secondary to substance abuse versus substance withdrawal versus chronic pancreatitis. In addition, obviously diabetic ketoacidosis could also cause abdominal cramps. Additional problem this patient has is bilateral foot wounds affecting multiple toes. In the prior record, she was described with ischemic foot. However, she has not undergone formal vascular evaluation yet, given her noncompliance, challenging followup situation/no outpatient followup. Today, the patient reports that her foot wounds are very painful, and she complains that she receives no wound care, and she needs to take care of the wounds on her own. Other than these issues, she did not report new complaints such as fever, cough, dysuria, any kind of bleeding complication, or additional problem. On admission, we also discussed CODE STATUS. Notably, in multiple records, different code statuses are documented. During some hospital stays, the patient' s code status was FULL CODE, and during other stays her code status was a DO NOT RESUSCITATE. Today, she tells me that last time she was here, she actually received CPR, and that is when she understood what the code status really meant. She is firm in her opinion that she does not want to and she would like to receive CPR or maximal aggressive care in case of medical emergency. Therefore, she is FULL CODE status. Upon presentation to the ER, the patient was tachycardic with a heart rate of 120. Her blood pressure was 140/90. She saturates 100% on 2 liters nasal cannula. Respiratory rate was 24. LABORATORY DATA: Laboratories showed anion gap of 15, carbon dioxide of 15. Large amount of ketones. Lipase was 69. Troponin was negative. Liver function test unremarkable. Calcium 7.8, sodium 129, potassium 4.1. White blood cell count was normal, hemoglobin was 9.2. Venous blood gas showed 7.43/26/51. PAST MEDICAL HISTORY 1. Homelessness. 2. Polysubstance abuse, methamphetamine abuse. In the past, the patient had an opiate contract, but currently is not under the care of any outpatient provider. 3. Hypertension. 4. Diabetic foot, toe wounds. 5. Fibromyalgia. 6. Mental health disorder. 7. In the past medical record, the patient was described with debility and cognitive impairment secondary to drug abuse versus hypothermia versus DKA and likely anoxic brain injury caused by the combination of these conditions. 8. Moderate pulmonary hypertension and valvular heart disease shown on echocardiogram from December 2015. 9. Chronic pancreatitis. 10. Chronic abdominal pain, multifactorial. OUTPATIENT MEDICATIONS: The patient cannot confirm her medication list, and it is unknown whether she actually takes her medications. SOCIAL HISTORY: The patient has been living in [facility] since 2014. I would like to refer to previously dictated history and physical notes and extensive social details on this patient. She is a polysubstance abuser. She is homeless and she has a complicated psychosocial background. FAMILY HISTORY: Positive for multiple illnesses in the father including cardiomyopathy, coronary artery disease, and cerebrovascular accident. PRIMARY CARE PHYSICIAN: The patient has no primary care physician. CODE STATUS: FULL CODE. PHYSICAL EXAMINATION VITAL SIGNS: Please see listed above at history of present illness. GENERAL: The patient is a well-developed female who was anxious, otherwise not in distress. PSYCHIATRIC: The patient was anxious, was crying during my exam. She appeared to be emotional and also complained of pain. NEUROLOGIC: Alert, oriented, nonfocal. MUSCULOSKELETAL: Multiple wounds on the toes, at least 3 toes on the right foot and 1 large wound on the second toe on the left foot. The wounds had scabs, drying discharge, perhaps minimal erythema. Skin: Pallor. No jaundice. CARDIOVASCULAR: S1, S2, regular, tachycardia. I could not hear murmur, rub or gallop. Circulation was hyperdynamic. RESPIRATORY: Good air entry throughout without wheezes or crackles. LYMPHATICS: No lymphedema. ABDOMEN: Benign. Bowel tones hypoactive. There was diffuse tenderness with voluntary guarding. No rebound. ORAL MUCOSA: Dry. ASSESSMENT AND PLAN/ACTIVE ISSUES/DIAGNOSES 1. Diabetic ketoacidosis. Although venous blood gas does not show acidosis, there is large amount of ketones in the blood and the chemistry panel suggests early DKA. The PH could be normal due to secondary respiratory compensation. 2. Chronic abdominal pain, multifactorial, secondary to abdominal cramps in the setting of diabetic ketoacidosis, could be related to substance abuse or pain medication-seeking as well versus chronic pancreatitis as well. Notably, during the last admission, the patient underwent workup with CT scan of the abdomen and was shown with lymphadenopathy. To rule out lymphoma, she was transferred and referred to specialist consultation. The opinion seemed to be reactive change. 3. Homelessness, polysubstance abuse, mental health problem and complicated psychosocial issues. 4. Sinus tachycardia in the setting of ongoing methamphetamine use and dehydration in the setting of diabetic ketoacidosis. Anxiety could also contribute. 5. Wounds on multiple toes/diabetic foot/possible vascular disease. Peripheral pulses on my exam were very weak, but palpable. 6. History of abnormal echocardiogram. No cardiac issue today. 7. Anemia. No recent bleeding complication. PLAN AND ORDERS: The patient is getting admitted as inpatient, will be monitored and treated in the ICU. I ordered DKA protocol. We will check electrolytes until anion gap closes and continue insulin drip per protocol. We will continue aggressive IV hydration as well. I bargained with the patient regarding pain medications, and she will get 1 dose of opiate overnight, given her wounds and significant anxiety about her pain complaint. I discussed with her that subsequently we will control her pain with Toradol and methocarbamol. We will replace electrolytes and adjust DKA treatment per laboratories. Regarding the foot wounds, the patient will require wound care. For now, I will give her Augmentin, as the wounds appeared with some discharge, and the patient might benefit from the treatment while she is hospitalized. DVT prophylaxis. Time spent in the care of this patient was 1 hour. JOB #: [id number] EXT JOB #:[id number] BRYANNA
[2017-01-23 06:00] LABS: CALCIUM 7.9 mg/dL (8.5-10.3); CREATININE 0.4 mg/dL (0.4-1.0); POTASSIUM 3.8 mmol/L (3.5-5.0)
[2017-01-23] MEDS: SODIUM CHLORIDE FLUSH 0.9% 10 ML SYRINGE IVP SCH ×2 (06:24→16:57)
[2017-01-23] MEDS: SODIUM CHLORIDE FLUSH 0.9% 10 ML SYRINGE IVP PRN ×3 (07:39→14:16)
[2017-01-23] MEDS: KETOROLAC 15 MG/ML VIAL IVP PRN ×3 (08:30→20:15)
[2017-01-23] MEDS: INSULIN ASPART 300 UNIT/3 ML PEN SUBQ SCH ×7 (08:37→20:57)
[2017-01-23] MEDS: AMOX/CLAV 875 MG/125 MG TABLET PO SCH ×2 (08:38→21:00)
[2017-01-23] MEDS: ENOXAPARIN 40 MG/0.4 ML SYRINGE SUBQ SCH (08:39)
--- NOTE | 2017-01-23 09:09 | PROVIDER PROGRESS NOTE ---
Subjective - Prog Note Date Prog Note Date: 01/23/17 Prog Note Time: 09:07 - Subjective Pt reports feeling: Improved Subjective: She says that she feels better. She does not feel nearly as "rough" as she did yesterday. Keeping all of her breakfast down. Off of insulin drip and back on her subcu insulin Current Medications - Current Medications Current Medications: Active Medications Amoxicillin/Clavulanate Potassium (Augmentin 875/125) 1 tab PO BID [facility] Last Admin: 01/23/17 08:38 Dose: 1 tab Enoxaparin Sodium (Lovenox) 40 mg SUBQ DAILY [facility] Last Admin: 01/23/17 08:39 Dose: 40 mg Hydromorphone HCl (Dilaudid Inj Syringe) 0.5 mg IVP ONCE PRN PRN Reason: PAIN Stop: 01/23/17 23:25 Last Admin: 01/22/17 23:49 Dose: 0.5 mg Insulin Aspart (Novolog) 5 unit SUBQ TIDWM [facility] Last Admin: 01/23/17 08:37 Dose: 5 unit Insulin Aspart (Novolog) 1 - 9 unit SUBQ 0800,1200,1700,2100 [facility] PRN Reason: Protocol Last Admin: 01/23/17 08:37 Dose: 3 unit Insulin Glargine (Lantus Solostar) 70 unit SUBQ BID [facility] Last Admin: 01/23/17 08:37 Dose: 70 unit Ketorolac Tromethamine (Toradol Inj) 15 mg IVP Q6HR PRN PRN Reason: PAIN Stop: 01/28/17 00:00 Last Admin: 01/23/17 08:30 Dose: 15 mg Methocarbamol (Robaxin) 500 mg PO BID PRN PRN Reason: Spasms Last Admin: 01/22/17 21:56 Dose: 500 mg Metoclopramide HCl (Reglan Inj) 10 mg IVP Q6HR PRN PRN Reason: Nausea / Vomiting Ondansetron HCl (Zofran Inj) 4 mg IVP Q6HR PRN PRN Reason: Nausea / Vomiting Last Admin: 01/23/17 00:52 Dose: 4 mg Polyethylene Glycol (Miralax) 17 gm PO DAILY [facility] Saccharomyces Boulardii (Florastor) 250 mg PO BIDWM [facility] Last Admin: 01/23/17 08:38 Dose: 250 mg Sodium Chloride (Normal Saline Flush 0.9%) 10 ml IVP PRN PRN PRN Reason: NEEDED PER PROVIDER ORDERS Last Admin: 01/23/17 08:31 Dose: 20 ml Sodium Chloride (Normal Saline Flush 0.9%) 10 ml IVP Q8HR [facility] Last Admin: 01/23/17 06:24 Dose: Not Given Insulin Aspart [NovoLOG] 5 unit SUBQ TIDWM 01/22/17 Objective - Vital Signs/Intake & Output Reviewed Vital Signs: Yes Vital Signs: Vital Signs x48h Temp Pulse Resp BP Pulse Ox 01/23/17 08:00 108 H 12 157/111 H 96 01/23/17 07:48 37.0 C 101 H 20 134/91 H 98 01/23/17 05:00 36.7 C 101 H 15 133/97 H 98 Intake & Output: Intake & Output 01/20/17 01/21/17 01/22/17 01/23/17 23:59 23:59 23:59 23:59 Intake Total 580 4436.883 Output Total 400 1750 Balance 180 2686.883 - Objective General Appearance: positive: No acute distress, Alert, Other (Tremulous, young white female who looks older than stated age, sitting up in bed eating breakfast and watching TV) Eyes Bilateral: positive: PERRL ENT: positive: Other (Very poor dentition, halitosis) Neck: negative: No JVD, Stiff neck, Carotid bruit Respiratory: positive: Chest non-tender, No respiratory distress. negative: Wheezes, Rales, Rhonchi Cardiovascular: positive: Regular rate & rhythm. negative: Gallop/S4, Friction rub Abdomen: positive: Non-tender, No organomegaly, Nml bowel sounds, No distention Extremities: positive: Full ROM, No pedal edema, Other (Toes continue to be chronically cyanotic and they have been for most of the year from probable ischemia peripheral vascular disease. right now her right great and 4th toes with tips having dry ulcers. The left foot has a deep black ulcer on the 4th toe. Everytime she puts her foot down, it throbs so much she cries and cries.) Neurologic/Psychiatric: positive: Oriented x3, CN's nml (2-12), Motor nml. negative: Mood/affect nml (she is repetitive. much like a small child, repeats her requests over and over and doesn't remember asking before.) - Lab Results Fish Bones: 01/22/17 18:57 01/23/17 05:40 Other Labs: Lab Results x24hrs 01/23/17 01/23/17 01/22/17 Range/Units 05:40 00:37 21:16 Sodium 138 136 135 (135-145) mmol/L Potassium 3.8 3.9 3.9 (3.5-5.0) mmol/L Chloride 107 106 102 (101-111) mmol/L Carbon Dioxide 18 L 18 L 16 L (21-32) mmol/L Anion Gap 13.0 12.0 17.0 H (6-13) BUN 13 19 21 H (6-20) mg/dL Creatinine 0.4 0.5 0.9 (0.4-1.0) mg/dL Estimated GFR (MDRD) 182 140 71 L (>89) Glucose 129 H 168 H 184 H Calcium 7.9 L 7.5 L 8.0 L (8.5-10.3) mg/dL Phosphorus (2.5-4.6) mg/dL Magnesium 1.7 (1.7-2.8) mg/dL 01/22/17 Range/Units 21:16 Sodium (135-145) mmol/L Potassium (3.5-5.0) mmol/L Chloride (101-111) mmol/L Carbon Dioxide (21-32) mmol/L Anion Gap (6-13) BUN (6-20) mg/dL Creatinine (0.4-1.0) mg/dL Estimated GFR (MDRD) (>89) Glucose Cancelled Calcium (8.5-10.3) mg/dL Phosphorus 2.4 L (2.5-4.6) mg/dL Magnesium (1.7-2.8) mg/dL Assessment/Plan - Problem List (1) DKA (diabetic ketoacidoses) Impression: responded to drip. now on SQ Plan: continue to monitor for 24 hours to see if stays stable then dc. Qualifiers: Diabetes mellitus type: type 1 Diabetes mellitus complication detail: without coma Qualified Code(s): E10.10 - Type 1 diabetes mellitus with ketoacidosis without coma (2) Atherosclerotic PVD with ulceration Impression: has had this for months. needs referral to vascular surgeon but she is homeless , has not followed thru with PCP Check CASSY's Get ortho consult MRI of toes but we can't do that until Wednesday, today is Wednesday. she wants ot save the toes. if CASSY's ok, may need abx for weeks. oxycodone 5 mg prn for pain. Qualifiers: Peripheral atherosclerosis location: lower extremity Peripheral atherosclerosis artery type: viejas artery Lower extremity ulceration location : other part of foot Laterality: bilateral Qualified Code(s): I70.235 - Atherosclerosis of viejas arteries of right leg with ulceration of other part of foot; I70.245 - Atherosclerosis of viejas arteries of left leg with ulceration of other part of foot; I70.245 - Atherosclerosis of viejas arteries of left leg with ulceration of other part of foot; I70.245 - Atherosclerosis of viejas arteries of left leg with ulceration of other part of foot; I70.245 - Atherosclerosis of viejas arteries of left leg with ulceration of other part of foot; I70.245 - Atherosclerosis of viejas arteries of left leg with ulceration of other part of foot; I70.245 - Atherosclerosis of viejas arteries of left leg with ulceration of other part of foot (3) Abdominal pain Impression: actually not a problem for her now. Qualifiers: Abdominal location: generalized Qualified Code(s): R10.84 - Generalized abdominal pain
[2017-01-23] MEDS: POLYETHYLENE GLYCOL 3350 17 GM PACKET PO SCH (10:44)
[2017-01-23] MEDS: oxyCODONE 5 MG TABLET PO PRN ×4 (13:16→23:15)
[2017-01-23] MEDS: ACETAMINOPHEN 325 MG TABLET PO PRN ×3 (13:17→23:04)
[2017-01-23] MEDS: clonazePAM 0.5 MG TABLET PO PRN (16:44)
[2017-01-23] MEDS: MICONAZOLE VAGINAL CREAM 45 GM TUBE VG SCH (16:57)
[2017-01-23] MEDS: LISINOPRIL 5 MG TABLET PO SCH (16:57)
[2017-01-23] MEDS ORDERED: BACITRACIN OINT TOP ONE (18:20)
[2017-01-23] MEDS ORDERED: NICOTINE 14 MG PATCH TOP ONE (20:41)
[2017-01-23] MEDS: METHOCARBAMOL 500 MG TABLET PO PRN (20:49)
[2017-01-23] MEDS: NICOTINE 14 MG PATCH TOP SCH (20:59)
[2017-01-24] MEDS: KETOROLAC 15 MG/ML VIAL IVP PRN ×4 (01:57→20:01)
[2017-01-24] MEDS: SODIUM CHLORIDE FLUSH 0.9% 10 ML SYRINGE IVP SCH ×4 (01:58→21:11)
[2017-01-24] MEDS: oxyCODONE 5 MG TABLET PO PRN ×5 (03:44→21:11)
[2017-01-24] MEDS: ACETAMINOPHEN 325 MG TABLET PO PRN ×5 (03:44→21:11)
[2017-01-24] MEDS ORDERED: DEXTROSE 50% ABBOJECT 25 GM/50 ML SYRINGE IVP ONE (03:47)
[2017-01-24] MEDS ORDERED: DEXTROSE 50% ABBOJECT 25 GM/50 ML SYRINGE ONE (03:47)
[2017-01-24] MEDS: clonazePAM 0.5 MG TABLET PO PRN ×2 (05:16→21:21)
[2017-01-24] MEDS: INSULIN ASPART 300 UNIT/3 ML PEN SUBQ SCH ×8 (08:12→21:06)
[2017-01-24] MEDS: SACCHAROMYCES BOULARDII 250 MG CAPSULE PO SCH ×2 (08:43→17:34)
[2017-01-24] MEDS: ENOXAPARIN 40 MG/0.4 ML SYRINGE SUBQ SCH (08:43)
[2017-01-24] MEDS: AMOX/CLAV 875 MG/125 MG TABLET PO SCH (08:44)
[2017-01-24] MEDS: INSULIN GLARGINE 300 UNIT/3 ML PEN SUBQ SCH ×2 (08:45→21:06)
[2017-01-24] MEDS: LISINOPRIL 5 MG TABLET PO SCH (08:52)
--- NOTE | 2017-01-24 10:27 | PROVIDER PROGRESS NOTE ---
Subjective - Prog Note Date Prog Note Date: 01/24/17 Prog Note Time: 10:24 - Subjective Subjective: She would like some gabapentin. She was already started on oxycodone and Klonopin yesterday. Her toe continues to be the biggest problem with regards to pain. She is also now asking for intermediate after discharge. She does not want to remain living in a tent. Current Medications - Current Medications Current Medications: Active Medications Acetaminophen (Tylenol) 650 mg PO Q4HR PRN PRN Reason: Pain or Fever > 38C (100.4F) Last Admin: 01/24/17 08:08 Dose: 650 mg Amoxicillin/Clavulanate Potassium (Augmentin 875/125) 1 tab PO BID [facility] Last Admin: 01/24/17 08:44 Dose: 1 tab Clonazepam (Klonopin) 0.5 mg PO BID PRN PRN Reason: Anxiety Last Admin: 01/24/17 05:16 Dose: 0.5 mg Enoxaparin Sodium (Lovenox) 40 mg SUBQ DAILY [facility] Last Admin: 01/24/17 08:43 Dose: 40 mg Gabapentin (Neurontin) 100 mg PO TID [facility] Insulin Aspart (Novolog) 5 unit SUBQ TIDWM [facility] Last Admin: 01/24/17 08:45 Dose: Not Given Insulin Aspart (Novolog) 1 - 9 unit SUBQ 0800,1200,1700,2100 [facility] PRN Reason: Protocol Last Admin: 01/24/17 08:12 Dose: Not Given Insulin Glargine (Lantus Solostar) 50 unit SUBQ BID [facility] Last Admin: 01/24/17 08:45 Dose: 50 unit Ketorolac Tromethamine (Toradol Inj) 15 mg IVP Q6HR PRN PRN Reason: PAIN Stop: 01/28/17 00:00 Last Admin: 01/24/17 08:09 Dose: 15 mg Lisinopril (Zestril) 5 mg PO DAILY [facility] Last Admin: 01/24/17 08:52 Dose: 5 mg Methocarbamol (Robaxin) 500 mg PO BID PRN PRN Reason: Spasms Last Admin: 01/23/17 20:49 Dose: 500 mg Metoclopramide HCl (Reglan Inj) 10 mg IVP Q6HR PRN PRN Reason: Nausea / Vomiting Miconazole (Monistat-7) 1 applic VG QPM [facility] Last Admin: 01/23/17 16:57 Dose: 1 appful Nicotine (Nicoderm) 1 patch TOP HS [facility] Last Admin: 01/23/17 20:59 Dose: Not Given Ondansetron HCl (Zofran Inj) 4 mg IVP Q6HR PRN PRN Reason: Nausea / Vomiting Last Admin: 01/23/17 00:52 Dose: 4 mg Oxycodone HCl (Roxicodone) 5 mg PO Q4HR PRN PRN Reason: PAIN Last Admin: 01/24/17 08:08 Dose: 5 mg Polyethylene Glycol (Miralax) 17 gm PO DAILY [facility] Last Admin: 01/23/17 10:44 Dose: Not Given Saccharomyces Boulardii (Florastor) 250 mg PO BIDWM [facility] Last Admin: 01/24/17 08:43 Dose: 250 mg Sodium Chloride (Normal Saline Flush 0.9%) 10 ml IVP PRN PRN PRN Reason: NEEDED PER PROVIDER ORDERS Last Admin: 01/23/17 14:16 Dose: 20 ml Sodium Chloride (Normal Saline Flush 0.9%) 10 ml IVP Q8HR [facility] Last Admin: 01/24/17 05:17 Dose: 10 ml Insulin Aspart [NovoLOG] 5 unit SUBQ TIDWM 01/22/17 Objective - Vital Signs/Intake & Output Reviewed Vital Signs: Yes Vital Signs: Vital Signs x48h Temp Pulse Resp BP Pulse Ox 01/24/17 08:34 130/90 H 01/24/17 05:00 37.2 C 122 H 18 148/88 H 97 Intake & Output: Intake & Output 01/21/17 01/22/17 01/23/17 01/24/17 23:59 23:59 23:59 23:59 Intake Total 580 9126.883 2080 Output Total 400 4725 2000 Balance 180 4401.883 80 - Objective General Appearance: positive: Alert, Mild distress (from her toe pain) Eyes Bilateral: positive: PERRL, EOMI ENT: positive: Other (poor dentition with carries and halotosis and some loss of teeth) Neck: negative: Stiff neck, Carotid bruit Respiratory: positive: Chest non-tender. negative: Wheezes, Rales, Rhonchi Cardiovascular: positive: Regular rate & rhythm. negative: Gallop/S4, Friction rub Abdomen: positive: Non-tender, No organomegaly, Nml bowel sounds, No distention Extremities: positive: No pedal edema, Other (left 4th toe red, tip black. right toes with dried, healing old ulcers.) Neurologic/Psychiatric: positive: Oriented x3, CN's nml (2-12), Motor nml - Lab Results Fish Bones: 01/22/17 18:57 01/23/17 05:40 Other Labs: Lab Results x24hrs 01/23/17 Range/Units 19:19 C-Reactive Protein 1.4 H (0-1.0) mg/dL Assessment/Plan - Problem List (1) DKA (diabetic ketoacidoses) Impression: responded to drip. now on SQ insulin since 01/23 early am. This am bottomed out so Lantus went from 75 bid to 70 bid and this am 50 bid. Her CO2 is still low but anion gap nml. Plan: continue to monitor to see if stays stable then dc but she is asking for placement. Qualifiers: Diabetes mellitus type: type 1 Diabetes mellitus complication detail: without coma Qualified Code(s): E10.10 - Type 1 diabetes mellitus with ketoacidosis without coma (2) Atherosclerotic PVD with ulceration Impression: has had this for months. needs referral to vascular surgeon but she is homeless , has not followed thru with PCP Check [facility] Ortho consult feels this is not osteo since CRP and plain film not impressive. Would treat with oral abx only for now. MRI of toes but we can't do that until Wednesday, today is Wednesday. oxycodone 5 mg prn for pain to continue Qualifiers: Peripheral atherosclerosis location: lower extremity Peripheral atherosclerosis artery type: [place] artery Lower extremity ulceration location : other part of foot Laterality: bilateral Qualified Code(s): I70.235 - Atherosclerosis of [place] arteries of right leg with ulceration of other part of foot; I70.245 - Atherosclerosis of [place]in[place] arteries of left leg with ulceration of other part of foot; I70.245 - Atherosclerosis of [place]in[place] arteries of left leg with ulceration of other part of foot; I70.245 - Atherosclerosis of [place] arteries of left leg with ulceration of other part of foot; I70.245 - Atherosclerosis of [place] arteries of left leg with ulceration of other part of foot; I70.245 - Atherosclerosis of [place] arteries of left leg with ulceration of other part of foot; I70.245 - Atherosclerosis of [place] arteries of left leg with ulceration of other part of foot (3) Abdominal pain Impression: actually not a problem for her now. she usually has it with her DKA. since off the drip, not a problem Qualifiers: Abdominal location: generalized Qualified Code(s): R10.84 - Generalized abdominal pain Qualifiers: Qualified Code(s): E10.10 - Type 1 diabetes mellitus with ketoacidosis without coma (3) Abdominal pain Qualifiers: Qualified Code(s): R10.84 - Generalized abdominal pain (4) Vaginitis due to Ryann Impression: Day #2 of monistat (5) Anxiety Impression: Day #2 of Klonopin (6) Hypertension Impression: Started on lisinpril /. Lower today Plan: no change in meds. continue to monitor. (7) Homeless Impression: Social [facility] advised she would like placment whereever possible.
[2017-01-24] MEDS: POLYETHYLENE GLYCOL 3350 17 GM PACKET PO SCH (10:35)
[2017-01-24] MEDS: GABAPENTIN 100 MG CAPSULE PO SCH ×3 (10:36→21:11)
--- NOTE | 2017-01-24 10:37 | PROVIDER PROGRESS NOTE ---
Subjective - General Admit Date: 01/22/17 - Review of Systems Wound/Incisions: positive: No drainage Musculoskeletal: positive: Other (4th toe swollen and erythematous in distal 1/ 2 c/o pain there) Objective - Patient Data Vital Signs: Vital Signs x48h Temp Pulse Resp BP Pulse Ox 01/24/17 08:34 130/90 H 01/24/17 05:00 37.2 C 122 H 18 148/88 H 97 Weight: Weight 01/22/17 01/23/17 01/24/17 23:59 23:59 23:59 Weight (kg) 54.3 kg Intake & Output: Intake and Output Totals x24h 01/22/17 01/23/17 01/24/17 23:59 23:59 23:59 Intake Total 580 9126.883 2080 Output Total 400 4725 2000 Balance 180 4401.883 80 - Lab Results Lab Results: 01/22/17 18:57 01/23/17 05:40 Other Lab Results: Lab Results x24hrs 01/23/17 Range/Units 19:19 C-Reactive Protein 1.4 H (0-1.0) mg/dL - Current Medications Current Medications: Current Medications Generic Name Dose Route Start Last Admin Trade Name Freq PRN Reason Stop Dose Admin Acetaminophen 650 mg 01/23/17 12:53 01/24/17 08:08 Tylenol PO 650 mg Q4HR PRN Administration Pain or Fever > 38C (100.4F) Amoxicillin/Clavulanate Potassium 1 tab 01/23/17 09:00 01/24/17 08:44 Augmentin 875/125 PO 1 tab BID [facility] Administration Clonazepam 0.5 mg 01/23/17 15:13 01/24/17 05:16 Klonopin PO 0.5 mg BID PRN Administration Anxiety Enoxaparin Sodium 40 mg 01/23/17 09:00 01/24/17 08:43 Lovenox SUBQ 40 mg DAILY [facility] Administration Insulin Aspart 5 unit 01/23/17 08:00 01/24/17 08:45 Novolog SUBQ Not Given TIDWM [facility] Insulin Aspart 1 - 9 unit 01/23/17 08:00 01/24/17 08:12 Novolog SUBQ Not Given 0800,1200,1700,2100 [facility] Protocol Insulin Glargine 50 unit 01/24/17 04:12 01/24/17 08:45 Lantus Solostar SUBQ 50 unit BID [facility] Administration Ketorolac Tromethamine 15 mg 01/22/17 21:07 01/24/17 08:09 Toradol Inj IVP 01/28/17 00:00 15 mg Q6HR PRN Administration PAIN Lisinopril 5 mg 01/23/17 16:00 01/24/17 08:52 Zestril PO 5 mg DAILY [facility] Administration Methocarbamol 500 mg 01/22/17 21:08 01/23/17 20:49 Robaxin PO 500 mg BID PRN Administration Spasms Miconazole 1 applic 01/23/17 16:00 01/23/17 16:57 Monistat-7 VG 1 appful QPM [facility] Administration Nicotine 1 patch 01/23/17 21:00 01/23/17 20:59 Nicoderm TOP Not Given [facility] Ondansetron HCl 4 mg 01/22/17 21:02 01/23/17 00:52 Zofran Inj IVP 4 mg Q6HR PRN Administration Nausea / Vomiting Oxycodone HCl 5 mg 01/23/17 12:53 01/24/17 08:08 Roxicodone PO 5 mg Q4HR PRN Administration PAIN Polyethylene Glycol 17 gm 01/23/17 09:00 01/23/17 10:44 Miralax PO Not Given DAILY [facility] Saccharomyces Boulardii 250 mg 01/22/17 23:45 01/24/17 08:43 Florastor PO 250 mg BIDWM [facility] Administration Sodium Chloride 10 ml 01/22/17 21:02 01/23/17 14:16 Normal Saline Flush 0.9% IVP 20 ml PRN PRN Administration NEEDED PER PROVIDER ORDERS Sodium Chloride 10 ml 01/22/17 22:00 01/24/17 05:17 Normal Saline Flush 0.9% IVP 10 ml Q8HR [facility] Administration - Physical Exam Comments/Other: CRP 1.4. ESR not done XR: No sign of osteomyelits in 4th toe (or others) Impression/Plan - Problem List Problem List: Left 4th toe ulcer May be thru the skin, but bone not infected as of today. Explained to patient that this may change. Will need careful management Recommend p.o. antibiotics
[2017-01-24] MEDS: levoFLOXacin 250 MG TABLET PO SCH (10:47)
[2017-01-24] MEDS: METHOCARBAMOL 500 MG TABLET PO PRN (12:59)
--- NOTE | 2017-01-24 13:24 | XRAY Preliminary Report ---
Exam: XR FOOT 3 VIEW LT IMPRESSION: No definite acute bony abnormality is identified in the left foot to indicate osteomyelit is. There is suggestion of soft tissue swelling at the fourth toe, which could correspond to the seble ent's symptoms. Clinical correlation is recommended. If there is continued clinical concern regarding the possibility of osteomyelitis, consider MRI for further imaging evaluation. [facility] SITE ID: [id number]
--- NOTE | 2017-01-24 13:27 | XRAY Report ---
EXAM: LEFT FOOT RADIOGRAPHY EXAM DATE: 01/24/2017 10:09 AM. CLINICAL HISTORY: Osteomyelitis. Patient reports a hole in her foot. COMPARISON: None. TECHNIQUE: 3 views. FINDINGS: Bones: No periosteal reaction or bony destruction is seen. No fractures or bone lesions. Joints: Normal. No subluxations. Soft Tissues: The location of the patient's symptoms is not described in the history. There is sugges tion of soft tissue swelling and some overlying bandages at the fourth toe. No definite soft tissue g as is seen. IMPRESSION: No definite acute bony abnormality is identified in the left foot to indicate osteomyelit is. There is suggestion of soft tissue swelling at the fourth toe, which could correspond to the seble ent's symptoms. Clinical correlation is recommended. If there is continued clinical concern regarding the possibility of osteomyelitis, consider MRI for further imaging evaluation. [facility] Referring Provider Line: [phone] SITE ID: [id number]
[2017-01-24] MEDS: SODIUM CHLORIDE FLUSH 0.9% 10 ML SYRINGE IVP PRN ×2 (14:14→20:01)
[2017-01-24] MEDS: DOCUSATE SODIUM 250 MG CAPSULE PO SCH (21:09)
[2017-01-24] MEDS: MICONAZOLE VAGINAL CREAM 45 GM TUBE VG SCH (21:10)
[2017-01-24] MEDS: NICOTINE 14 MG PATCH TOP SCH (21:10)
[2017-01-25] MEDS: METHOCARBAMOL 500 MG TABLET PO PRN ×2 (00:26→12:51)
[2017-01-25] MEDS: ACETAMINOPHEN 325 MG TABLET PO PRN ×6 (01:16→22:53)
[2017-01-25] MEDS: oxyCODONE 5 MG TABLET PO PRN ×6 (01:16→23:50)
[2017-01-25] MEDS: SODIUM CHLORIDE FLUSH 0.9% 10 ML SYRINGE IVP PRN ×3 (02:57→22:53)
[2017-01-25] MEDS: KETOROLAC 15 MG/ML VIAL IVP PRN ×4 (02:57→22:54)
[2017-01-25] MEDS: SODIUM CHLORIDE FLUSH 0.9% 10 ML SYRINGE IVP SCH ×3 (06:14→21:20)
[2017-01-25] MEDS: GABAPENTIN 100 MG CAPSULE PO SCH ×3 (06:37→21:20)
--- NOTE | 2017-01-25 06:39 | CONSULTATION NOTE ---
DATE OF CONSULTATION: REQUESTING PROVIDER: Medical hospitalist. HISTORY OF PRESENT ILLNESS: This 36-year-old homeless woman was admitted through the emergency room 2 days ago for diabetic ketoacidosis. While there, the ulcer at the tip of her left fourth toe was not ed. She had also dry ulcers at the tips of her third and fourth toes of the right foot. She complains of pain in the left foot swollen toe. She does not know of any injury that might have occurred to it . She tends to only change of socks about every 3 days or so. When she pulled her sock off recently s he noted it stuck to her toe and seemed to come off with some liquid. She has not had chills or fever s prior to her acute illness that she recalls. She has been a diabetic for 20 years. She has had mult iple bouts of DKA. She is worried about her left fourth toe and does not wish to lose it. She does cr ystal meth. She has lost all of her teeth. Further medical history per hospitalist. PHYSICAL EXAMINATION: GENERAL: She is actually a very pleasant thin woman who appears anxious, but is very easy to get daya g with. She seems to give a good history. On the upper and lower extremities. She has multiple small inflamed areas. In some cases they seem to go along the course of the vein, others I am not sure. In the left foot she has no erythema or swelling except in the fourth toe. She has no lymphangitic strea ks. She has sensation on the dorsum and plantar aspects of the foot. She complains of severe tenderne ss to the fourth toe. That toe is swollen, erythematous almost like a sausage over the areas of the m iddle and distal phalanx. At the tip there is a dry eschar. There may be necrotic skin around. It is difficult to tell. There are not x-rays of the foot yet. IMPRESSION: Osteomyelitis of the left foot fourth toe. I think radiographs will confirm this. PLAN: We will also go ahead and get CRP and sedimentation rate to establish at least a starting point . The hospitalist has talked of getting an MRI scan of the foot. Perhaps a radiograph will make this unnecessary. We will go ahead and get this tomorrow and then make a decision at that time. I explaine d to the patient that if there is osteomyelitis, then she will need to have the toe amputated as barbara moise lesser measures are never successful, especially in case of a homeless person with diabetes. JOB #: [id number] EXT JOB #:[id number]
[2017-01-25] MEDS: cloNIDine 0.1 MG PATCH TOP SCH (07:51)
--- NOTE | 2017-01-25 07:58 | PROVIDER PROGRESS NOTE ---
Subjective - Prog Note Date Prog Note Date: 01/25/17 Prog Note Time: 07:55 - Subjective Subjective: Her left toe continues to hurt her. But she says that the pain is controlled with the gabapentin, oxycodone, Toradol and Tylenol. She can actually get up and weight-bear. We are noticing that she is hypoxic. We ask about chest pain, palpitations, shortness of breath and she does feel like every once while her chest gets tight. But is not severe. She is not in any distress. She did spike a temp to 38 yesterday evening. She has been consistently tachycardic this admission. She does carry a diagnosis of sinus tachycardia that she says her doctors just is to give her a beta-tianna for. This is back 2 years ago when she first came to us. Clonidine was added for blood pressure and tachycardia last night Current Medications - Current Medications Current Medications: Active Medications Acetaminophen (Tylenol) 650 mg PO Q4HR PRN PRN Reason: Pain or Fever > 38C (100.4F) Last Admin: 01/25/17 05:06 Dose: 650 mg Clonazepam (Klonopin) 0.5 mg PO BID PRN PRN Reason: Anxiety Last Admin: 01/24/17 21:21 Dose: 0.5 mg Clonidine HCl ([id number]) 1 patch TOP Q7D [facility] Last Admin: 01/25/17 07:51 Dose: 1 patch Docusate Sodium (Colace 250mg Capsule) 250 - 500 mg PO DAILY [facility] Last Admin: 01/24/17 21:09 Dose: 250 mg Enoxaparin Sodium (Lovenox) 40 mg SUBQ DAILY [facility] Last Admin: 01/24/17 08:43 Dose: 40 mg Gabapentin (Neurontin) 100 mg PO TID [facility] Last Admin: 01/25/17 06:37 Dose: 100 mg Insulin Aspart (Novolog) 5 unit SUBQ TIDWM [facility] Last Admin: 01/24/17 17:37 Dose: Not Given Insulin Aspart (Novolog) 1 - 9 unit SUBQ 0800,1200,1700,2100 [facility] PRN Reason: Protocol Last Admin: 01/24/17 21:06 Dose: 1 unit Insulin Glargine (Lantus Solostar) 50 unit SUBQ BID [facility] Last Admin: 01/24/17 21:06 Dose: 50 unit Ketorolac Tromethamine (Toradol Inj) 15 mg IVP Q6HR PRN PRN Reason: PAIN Stop: 01/28/17 00:00 Last Admin: 01/25/17 02:57 Dose: 15 mg Levofloxacin (Levaquin) 500 mg PO DAILY [facility] Last Admin: 01/24/17 10:47 Dose: 500 mg Lisinopril (Zestril) 5 mg PO DAILY [facility] Last Admin: 01/24/17 08:52 Dose: 5 mg Methocarbamol (Robaxin) 500 mg PO BID PRN PRN Reason: Spasms Last Admin: 01/25/17 00:26 Dose: 500 mg Metoclopramide HCl (Reglan Inj) 10 mg IVP Q6HR PRN PRN Reason: Nausea / Vomiting Miconazole (Monistat-7) 1 applic VG QPM [facility] Last Admin: 01/24/17 21:10 Dose: Not Given Nicotine (Nicoderm) 1 patch TOP HS [facility] Last Admin: 01/24/17 21:10 Dose: 1 patch Ondansetron HCl (Zofran Inj) 4 mg IVP Q6HR PRN PRN Reason: Nausea / Vomiting Last Admin: 01/23/17 00:52 Dose: 4 mg Oxycodone HCl (Roxicodone) 5 mg PO Q4HR PRN PRN Reason: PAIN Last Admin: 01/25/17 05:05 Dose: 5 mg Polyethylene Glycol (Miralax) 17 gm PO DAILY [facility] Last Admin: 01/24/17 10:35 Dose: 17 gm Saccharomyces Boulardii (Florastor) 250 mg PO BIDWM [facility] Last Admin: 01/24/17 17:34 Dose: 250 mg Senna (Senokot) 8.6 - 17.2 mg PO DAILY [facility] Sodium Chloride (Normal Saline Flush 0.9%) 10 ml IVP PRN PRN PRN Reason: NEEDED PER PROVIDER ORDERS Last Admin: 01/25/17 02:57 Dose: 10 ml Sodium Chloride (Normal Saline Flush 0.9%) 10 ml IVP Q8HR [facility] Last Admin: 01/25/17 06:14 Dose: Not Given Insulin Aspart [NovoLOG] 5 unit SUBQ TIDWM 01/22/17 Objective - Vital Signs/Intake & Output Reviewed Vital Signs: Yes Vital Signs: Vital Signs x48h Temp Pulse Pulse Resp BP BP Pulse Ox 01/25/17 04:12 37.2 C 121 H 20 141/107 H 98 01/25/17 01:18 37.5 C 125 H 20 146/101 H 95 Intake & Output: Intake & Output 01/22/17 01/23/17 01/24/17 01/25/17 23:59 23:59 23:59 23:59 Intake Total 580 9226.883 4855 1920 Output Total 400 4789 7175 3250 Balance 180 4501.883 -7363 -3910 - Objective General Appearance: positive: No acute distress, Alert Eyes Bilateral: positive: PERRL ENT: positive: Other (Dental caries, halitosis, and some teeth missing) Neck: positive: Lymphadenopathy (R) (Shoddy), Lymphadenopathy (L) (Shotty). negative: Stiff neck, Carotid bruit Respiratory: positive: Chest non-tender. negative: Wheezes, Rales, Rhonchi Cardiovascular: positive: Regular rate & rhythm, Tachycardia. negative: Gallop/ S4, Friction rub Abdomen: positive: Non-tender, No organomegaly, Nml bowel sounds, No distention Skin: positive: Warm, Dry Extremities: positive: Full ROM, No pedal edema, Other (Left fourth toe tip is still slightly black, ulcerated. The toe in an of itself is swollen at the MTP and PIP is slightly pink. On the right foot the second and fourth toes also have healing ulcerations. But no redness no swelling. Dry.) Neurologic/Psychiatric: positive: Oriented x3, CN's nml (2-12), Motor nml, Other (Fast pressured speech is returning. Multiple barrage of request is returning.) - Lab Results Fish Bones: 01/25/17 12:22 01/25/17 12:22 Other Labs: Lab Results x24hrs 01/25/17 01/24/17 01/24/17 Range/Units 07:41 20:55 17:00 POC Whole Bld Glucose 155 H 172 H 88 (70 - 100) mg/dL 01/24/17 01/24/17 01/24/17 Range/Units 11:51 08:19 07:51 POC Whole Bld Glucose 148 H 160 H 56 L* (70 - 100) mg/dL 01/24/17 01/24/17 01/23/17 Range/Units 03:51 03:38 20:51 POC Whole Bld Glucose 162 H 46 L* 198 H (70 - 100) mg/dL 01/23/17 01/23/17 01/23/17 Range/Units 17:13 11:57 07:45 POC Whole Bld Glucose 101 H 122 H 221 H (70 - 100) mg/dL 01/23/17 01/23/17 01/22/17 Range/Units 04:26 04:05 22:07 POC Whole Bld Glucose 152 H 60 L* 246 H (70 - 100) mg/dL 01/22/17 Range/Units 21:12 POC Whole Bld Glucose 184 H (70 - 100) mg/dL Assessment/Plan - Problem List (1) Hypoxia Impression: dropping to 89% with exertion and on 1-2 liters. also with temp spike. Check CXR. if negative check CTA. (2) DKA (diabetic ketoacidoses) Impression: responded to drip. now on SQ insulin since 01/23 early am. 01/24/17 am bottomed out so Lantus had been 75 bid to 70 bid and lowered even further 01/24 am to 50 bid. Her CO2 is still low but anion gap nml. Plan: continue to monitor to see if stays stable then dc but she is asking for placement. Qualifiers: Diabetes mellitus type: type 1 Diabetes mellitus complication detail: without coma Qualified Code(s): E10.10 - Type 1 diabetes mellitus with ketoacidosis without coma (3) Atherosclerotic PVD with ulceration Impression: has had this for months if not over a year. needs referral to vascular surgeon but she is homeless, has not followed thru with PCP Check [facility] Ortho consult feels this is not osteo since CRP and plain film not impressive. Would treat with oral abx only for now. MRI of toes shows inflammation and if is is osteomylelitis, it is very early. no erosion seen. Ortho still feels oral abx appropriate and see if fails espcially since levaquin has good penetration. oxycodone 5 mg prn for pain to continue Qualifiers: Peripheral atherosclerosis location: lower extremity Peripheral atherosclerosis artery type: [place] artery Lower extremity ulceration location : other part of foot Laterality: bilateral Qualified Code(s): I70.235 - Atherosclerosis of [place] arteries of right leg with ulceration of other part of foot; I70.245 - Atherosclerosis of [place] arteries of left leg with ulceration of other part of foot; I70.245 - Atherosclerosis of [place] arteries of left leg with ulceration of other part of foot; I70.245 - Atherosclerosis of [place] arteries of left leg with ulceration of other part of foot; I70.245 - Atherosclerosis of [place] arteries of left leg with ulceration of other part of foot; I70.245 - Atherosclerosis of [place] arteries of left leg with ulceration of other part of foot; I70.245 - Atherosclerosis of [place] arteries of left leg with ulceration of other part of foot (4) Abdominal pain Impression: actually not a problem for her now. she usually has it with her DKA. since off the drip, not a problem Qualifiers: Abdominal location: generalized Qualified Code(s): R10.84 - Generalized abdominal pain (5) Vaginitis due to Ryann Impression: Day #4 of monistat (6) Anxiety Impression: Day #4 of Klonopin (7) Hypertension Impression: Started on lisinpril /. 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 Plan: . continue to monitor. (8) Homeless Impression: Social Service advised she would like placment whereever possible.
[2017-01-25] MEDS: INSULIN ASPART 300 UNIT/3 ML PEN SUBQ SCH ×7 (08:23→21:18)
[2017-01-25] MEDS: SACCHAROMYCES BOULARDII 250 MG CAPSULE PO SCH ×2 (08:24→17:28)
[2017-01-25] MEDS: levoFLOXacin 250 MG TABLET PO SCH (08:24)
[2017-01-25] MEDS: ENOXAPARIN 40 MG/0.4 ML SYRINGE SUBQ SCH (08:32)
[2017-01-25] MEDS: SENNA 8.6 MG TABLET PO SCH (08:32)
[2017-01-25] MEDS: LISINOPRIL 5 MG TABLET PO SCH (08:32)
[2017-01-25] MEDS: DOCUSATE SODIUM 250 MG CAPSULE PO SCH (08:32)
[2017-01-25] MEDS: POLYETHYLENE GLYCOL 3350 17 GM PACKET PO SCH (08:33)
[2017-01-25] MEDS: INSULIN GLARGINE 300 UNIT/3 ML PEN SUBQ SCH ×2 (08:33→21:18)
[2017-01-25] MEDS: clonazePAM 0.5 MG TABLET PO PRN (08:46)
[2017-01-25] MEDS ORDERED: LORazepam 2 MG/ML VIAL IVP ONE (09:30)
[2017-01-25 12:27] LABS: BASOPHILS % (AUTO) 0.8 %; EOSINOPHILS # (AUTO) 0.1 10^3/uL (0.0-0.7); EOSINOPHILS % (AUTO) 1.5 %; HCT - HEMATOCRIT 28.9 % (37.0-47.0); HGB - HEMOGLOBIN 9.4 g/dL (12.0-16.0); LYMPHOCYTES # (AUTO) 1.3 10^3/uL (1.5-3.5); LYMPHOCYTES % (AUTO) 21.8 %; MEAN CORPUSCULAR HGB CONC 32.5 g/dL (32.0-36.0); MEAN CORPUSCULAR VOLUME 76.8 fL (81.0-99.0); MEAN PLATELET VOLUME 7.3 fL (7.9-10.8); MONOCYTES # (AUTO) 0.4 10^3/uL (0.0-1.0); MONOCYTES % (AUTO) 6.7 %; NEUTROPHILS # (AUTO) 4.1 10^3/uL (1.5-6.6); NEUTROPHILS % (AUTO) 69.2 %; NUCLEATED RED BLOOD CELLS AUTO 0.1 /100WBC; RED BLOOD COUNT 3.76 10^6/uL (4.20-5.40); RED CELL DISTRIBUTION WIDTH 17.2 % (12.0-15.0); UNCORRECTED WHITE BLOOD COUNT 5.9 x10^3/uL; WHITE BLOOD COUNT 5.9 x10^3/uL (4.8-10.8)
--- NOTE | 2017-01-25 12:36 | MRI Report ---
EXAM: LEFT FOREFOOT MRI WITHOUT CONTRAST EXAM DATE: 01/25/2017 11:43 AM. CLINICAL HISTORY: Tenderness and black discoloration at the toes. Diabetes. COMPARISON: Left foot radiography from 01/24/2017. TECHNIQUE: Multiplanar, multisequence T1-weighted and fluid-sensitive sequences of the forefoot witho ut contrast. Other: None. FINDINGS: Some of the images are degraded due to motion artifact. Bones: T2 hyperintense signal within the fourth distal phalanx. Slight T2 hyperintense signal within the second and first distal phalanges. No acute fracture or bone lesions. Joints: No subluxations. Small first metatarsal-phalangeal joint effusion. The [id number] geal complex is unremarkable. The visualized plantar plates are unremarkable. Articular Cartilage: Unremarkable. Ligaments: The visualized collateral ligaments are intact. Tendons: The flexor and extensor tendons are unremarkable. Musculature: No edema or fatty atrophy. Other: Small amount of fluid at the first, second, and third intermetatarsal bursae. Mild subcutaneou s edema at the dorsal aspect of the forefoot. Small amount of free fluid between the flexor digitorum brevis and adductor hallucis muscles. IMPRESSION: 1. Slightly technically limited exam due to patient-related motion artifact. 2. T2 hyperintense signal within the fourth distal phalanx and slight T2 hyperintense signal within t he second and first distal phalanges. The findings are nonspecific. Possible etiologies might include bone contusion, stress reaction, mild/early osteomyelitis. 3. Small first metatarsophalangeal joint effusion. 4. Small amount of fluid at the first, second, third intermetatarsal bursae. 5. Mild subcutaneous edema at the dorsal aspect of the forefoot. 6. Small amount of free fluid between the flexor digitorum brevis and adductor hallucis muscles which may be inflammatory or posttraumatic in etiology. [facility]CUL[facility] Referring Provider Line: [phone] SITE ID: [id number]
[2017-01-25 12:46] LABS: CALCIUM 8.4 mg/dL (8.5-10.3); CREATININE 0.4 mg/dL (0.4-1.0); POTASSIUM 4.2 mmol/L (3.5-5.0)
--- NOTE | 2017-01-25 16:16 | XRAY Report ---
CHEST, TWO VIEWS: 01/25/2017 HISTORY: Hypoxia. COMPARISON: 01/22/2017 FINDINGS: New area of linear subsegmental atelectasis right CP angle. Lungs otherwise grossly clear . No pleural effusion, pneumothorax, or cardiac enlargement. Stable bony structures. IMPRESSION: NEW LINEAR SUBSEGMENTAL ATELECTASIS RIGHT CP ANGLE. OTHERWISE, NEGATIVE CHEST. JOB #: [id number] EXT JOB #:[id number]
[2017-01-25] MEDS ORDERED: IOPAMIDOL-300 100 ML VIAL ONE (18:42)
[2017-01-25] MEDS ORDERED: IOPAMIDOL-300 100 ML VIAL IVP ONE (20:59)
[2017-01-25] MEDS: MICONAZOLE VAGINAL CREAM 45 GM TUBE VG SCH (21:20)
[2017-01-25] MEDS: NICOTINE 14 MG PATCH TOP SCH (21:20)
--- NOTE | 2017-01-25 22:21 | CT Preliminary Report ---
Exam: CT CHEST ANGIO (PE) IMPRESSION: 1. No main, lobar, or proximal segmental evidence of pulmonary embolism. Distal segmental and subsegm ental vessels are difficult to assess on this exam due to suboptimal opacification. 2. No significant pulmonary parenchymal abnormality there is mild bilateral lower lobe dependent atel ectasis. No suspicious consolidation noted.. [facility] SITE ID: [id number]
--- NOTE | 2017-01-25 22:26 | CT Report ---
EXAM: CT ANGIOGRAM CHEST EXAM DATE: 01/25/2017 09:05 PM. CLINICAL HISTORY: Hypoxia, dyspnea on exertion. COMPARISON: 08/15/2014. TECHNIQUE: Routine helical imaging was performed through the chest in the pulmonary arterial phase. I V Contrast: 80 mL Isovue-300. Reconstructions: Coronal 3-D MIP reconstructions.Sagittal and coronal. In accordance with CT protocol optimization, one or more of the following dose reduction techniques w ere utilized for this exam: automated exposure control, adjustment of mA and/or KV based on patient s ize, or use of iterative reconstructive technique. FINDINGS: Pulmonary Arteries: There is suboptimal opacification of the distal segmental and subsegmental branch es. No pulmonary embolism demonstrated within the other segments. Lungs and Pleura: Small linear subsegmental atelectasis is noted within the right lower lobe. Similar small subpleural opacity within the left lower lobe, also likely atelectasis. Detailed assessment of lung parenchyma is compromised by breathing motion. There is nonspecific trace right-sided pleural e ffusion layering posteriorly medially. Central Airways: Visualized central airways are without suspicious filling defects. Chest Wall: No significant abnormality. Thyroid: No significant abnormality. Mediastinum: No significant abnormality. Heart: Normal in size. No significant pericardial effusion. Aorta: Normal caliber. Upper Abdomen: Small hiatal hernia noted. Bones: No suspicious bony lesions evident. IMPRESSION: 1. No main, lobar, or proximal segmental evidence of pulmonary embolism. Distal segmental and subsegm ental vessels are difficult to assess on this exam due to suboptimal opacification. 2. No significant pulmonary parenchymal abnormality. There is mild bilateral lower lobe dependent ate lectasis. No suspicious consolidation noted. [facility] Referring Provider Line: [phone] SITE ID: [id number]
[2017-01-26] MEDS: ACETAMINOPHEN 325 MG TABLET PO PRN ×5 (04:11→21:39)
[2017-01-26] MEDS: oxyCODONE 5 MG TABLET PO PRN ×5 (04:59→21:40)
[2017-01-26] MEDS: GABAPENTIN 100 MG CAPSULE PO SCH ×3 (05:26→21:41)
[2017-01-26] MEDS: SODIUM CHLORIDE FLUSH 0.9% 10 ML SYRINGE IVP SCH ×4 (05:26→20:08)
[2017-01-26 05:58] LABS: BASOPHILS # (AUTO) 0.1 10^3/uL (0.0-0.1); EOSINOPHILS # (AUTO) 0.1 10^3/uL (0.0-0.7); HCT - HEMATOCRIT 27.7 % (37.0-47.0); HGB - HEMOGLOBIN 8.8 g/dL (12.0-16.0); LYMPHOCYTES # (AUTO) 1.7 10^3/uL (1.5-3.5); LYMPHOCYTES % (AUTO) 20.9 %; MEAN CORPUSCULAR HEMOGLOBIN 24.4 pg (27.0-31.0); MEAN CORPUSCULAR HGB CONC 31.8 g/dL (32.0-36.0); MEAN CORPUSCULAR VOLUME 76.8 fL (81.0-99.0); MEAN PLATELET VOLUME 8.4 fL (7.9-10.8); MONOCYTES # (AUTO) 0.7 10^3/uL (0.0-1.0); MONOCYTES % (AUTO) 8.3 %; NEUTROPHILS # (AUTO) 5.6 10^3/uL (1.5-6.6); NEUTROPHILS % (AUTO) 68.8 %; NUCLEATED RED BLOOD CELLS AUTO 0.1 /100WBC; RED BLOOD COUNT 3.61 10^6/uL (4.20-5.40); RED CELL DISTRIBUTION WIDTH 17.1 % (12.0-15.0); UNCORRECTED WHITE BLOOD COUNT 8.1 x10^3/uL; WHITE BLOOD COUNT 8.1 x10^3/uL (4.8-10.8)
[2017-01-26 06:08] LABS: CALCIUM 8.3 mg/dL (8.5-10.3); CREATININE 0.5 mg/dL (0.4-1.0); POTASSIUM 3.2 mmol/L (3.5-5.0)
[2017-01-26] MEDS: KETOROLAC 15 MG/ML VIAL IVP PRN ×3 (07:59→19:35)
[2017-01-26] MEDS: SODIUM CHLORIDE FLUSH 0.9% 10 ML SYRINGE IVP PRN ×9 (07:59→23:36)
[2017-01-26] MEDS: SACCHAROMYCES BOULARDII 250 MG CAPSULE PO SCH ×2 (08:09→16:14)
[2017-01-26] MEDS: clonazePAM 0.5 MG TABLET PO PRN ×2 (08:10→19:15)
[2017-01-26] MEDS: DOCUSATE SODIUM 250 MG CAPSULE PO SCH (08:10)
[2017-01-26] MEDS: SENNA 8.6 MG TABLET PO SCH (08:11)
[2017-01-26] MEDS: POLYETHYLENE GLYCOL 3350 17 GM PACKET PO SCH (08:11)
[2017-01-26] MEDS: ONDANSETRON 4 MG/2 ML VIAL IVP PRN (08:34)
[2017-01-26] MEDS: ENOXAPARIN 40 MG/0.4 ML SYRINGE SUBQ SCH (08:57)
[2017-01-26] MEDS: INSULIN GLARGINE 300 UNIT/3 ML PEN SUBQ SCH ×2 (08:57→21:43)
[2017-01-26] MEDS: INSULIN ASPART 300 UNIT/3 ML PEN SUBQ SCH ×7 (08:58→21:42)
[2017-01-26] MEDS: METHOCARBAMOL 500 MG TABLET PO PRN ×2 (09:00→19:15)
[2017-01-26] MEDS: levoFLOXacin 250 MG TABLET PO SCH (09:04)
[2017-01-26] MEDS: LISINOPRIL 5 MG TABLET PO SCH (09:04)
[2017-01-26] MEDS: POTASSIUM CHLOR 10 MEQ/100 ML 10 MEQ/100 ML BAG IV SCH ×2 (10:54→11:02)
[2017-01-26] MEDS ORDERED: HYDROmorphone 0.5 MG/0.5 ML SYRINGE ONE (12:24)
[2017-01-26] MEDS ORDERED: POTASSIUM CHLORIDE 20 MEQ TABLET PO SCH (12:42)
[2017-01-26] MEDS: MULTIVITAMIN W/MINERALS TABLET PO SCH (13:10)
[2017-01-26 14:11] LABS: IRON < 6 ug/dL (28-170); TOTAL IRON BINDING CAPACITY 272 ug/dL (250-450); TRANSFERRIN 194 mg/dL (192-382)
[2017-01-26] MEDS: HYDROmorphone 0.5 MG/0.5 ML SYRINGE IVP PRN ×5 (14:11→23:36)
[2017-01-26 14:38] LABS: FOLATE 6.29 ng/mL (5.90 - >24.8)
--- NOTE | 2017-01-26 18:13 | PROVIDER PROGRESS NOTE ---
Assessment/Plan - Problem List (1) DKA (diabetic ketoacidoses) Assessment/Plan: Resolved. Continue diabetic management with diet and medications. (2) Hypoxia Assessment/Plan: No evidence of pulmonary abnormality except for mild atelectasis on chest x- ray. No pneumonia. No pulmonary embolism. Possibly hypoventilation. Possibly related to her presumed infection. Continue to monitor. (3) Atherosclerotic PVD with ulceration Qualifiers: Peripheral atherosclerosis location: lower extremity Lower extremity ulceration location: other part of foot Laterality: bilateral Assessment/Plan: Because of painful wound site, third day of a fever spike, rising WBC, will change p.o. levofloxacin to levofloxacin 750 mg IV daily and add metronidazole 500 mg IV every 8 hours. The wound has not been cultured, will order this. A MAC Wound clinic consult will be ordered. Aminah has advised me verbally how this should be dressed and Aminah will do debridement tomorrow. I will also add Pletal for possible ischemic digit pain. Continue other pain medications. (4) Vaginitis due to Ryann Assessment/Plan: Day #5 of treatment (5) Anemia Qualifiers: Anemia type: iron deficiency Assessment/Plan: Iron studies, B12 and folate levels were done and this shows marked iron deficiency anemia. I will start oral iron supplement after obtaining stool for Hemoccult testing (6) Anxiety Assessment/Plan: Somewhat improved affect on Klonopin. (7) Homeless Assessment/Plan: Social work involved in request for new long-term (8) Hypertension Qualifiers: Hypertension type: essential hypertension Qualified Code(s): I10 - Essential (primary) hypertension Assessment/Plan: BP under better control on new clonidine patch and Zestril - Current Meds Current Meds: Current Medications Generic Name Dose Route Start Last Admin Trade Name Freq PRN Reason Stop Dose Admin Acetaminophen 650 mg 01/23/17 12:53 01/26/17 17:33 Tylenol PO 650 mg Q4HR PRN Administration Pain or Fever > 38C (100.4F) Clonazepam 0.5 mg 01/23/17 15:13 01/26/17 08:10 Klonopin PO 0.5 mg BID PRN Administration Anxiety Clonidine HCl 1 patch 01/25/17 08:00 01/25/17 07:51 [id number] TOP 1 patch Q7D SYLVIA Administration Docusate Sodium 250 - 500 mg 01/24/17 19:27 01/26/17 08:10 Colace 250mg Capsule PO 250 mg DAILY SYLVIA Administration Enoxaparin Sodium 40 mg 01/23/17 09:00 01/26/17 08:57 Lovenox SUBQ 40 mg DAILY SYLVIA Administration Gabapentin 100 mg 01/24/17 11:00 01/26/17 14:11 Neurontin PO 100 mg TID SYLVIA Administration Hydromorphone HCl 0.5 mg 01/26/17 12:41 01/26/17 16:13 Dilaudid Inj Syringe IVP 0.5 mg Q2H PRN Administration PAIN Insulin Aspart 2 - 10 unit 01/25/17 17:00 01/26/17 17:34 Novolog SUBQ 4 unit 0800,1200,1700,2100 SYLVIA Administration Protocol Insulin Aspart 5 unit 01/25/17 17:00 01/26/17 17:34 Novolog SUBQ 5 unit TIDWM SYLVIA Administration Protocol Insulin Glargine 50 unit 01/24/17 04:12 01/26/17 08:57 Lantus Solostar SUBQ 50 unit BID SYLVIA Administration Ketorolac Tromethamine 15 mg 01/22/17 21:07 01/26/17 13:41 Toradol Inj IVP 01/28/17 00:00 15 mg Q6HR PRN Administration PAIN Lisinopril 5 mg 01/23/17 16:00 01/26/17 09:04 Zestril PO 5 mg DAILY SYLVIA Administration Methocarbamol 500 mg 01/22/17 21:08 01/26/17 09:00 Robaxin PO 500 mg BID PRN Administration Spasms Miconazole 1 applic 01/23/17 16:00 01/25/17 21:20 Monistat-7 VG 1 appful QPM SYLVIA Administration Multivitamins/Minerals 1 tab 01/26/17 13:00 01/26/17 13:10 Theragran M PO 1 tab DAILYWM SYLVIA Administration Nicotine 1 patch 01/23/17 21:00 01/25/17 21:20 Nicoderm TOP 1 patch HS SYLVIA Administration Ondansetron HCl 4 mg 01/22/17 21:02 01/26/17 08:34 Zofran Inj IVP 4 mg Q6HR PRN Administration Nausea / Vomiting Oxycodone HCl 5 mg 01/23/17 12:53 01/26/17 17:33 Roxicodone PO 5 mg Q4HR PRN Administration PAIN Polyethylene Glycol 17 gm 01/23/17 09:00 01/26/17 08:11 Miralax PO 17 gm DAILY SYLVIA Administration Saccharomyces Boulardii 250 mg 01/22/17 23:45 01/26/17 16:14 Florastor PO 250 mg BIDWM SYLVIA Administration Senna 8.6 - 17.2 mg 01/25/17 09:00 01/26/17 08:11 Senokot PO 8.6 mg DAILY SYLVIA Administration Sodium Chloride 10 ml 01/22/17 21:02 01/26/17 14:11 Normal Saline Flush 0.9% IVP 10 ml PRN PRN Administration NEEDED PER PROVIDER ORDERS Sodium Chloride 10 ml 01/22/17 22:00 01/26/17 16:14 Normal Saline Flush 0.9% IVP 10 ml Q8HR SYLVIA Administration - Lab Result Fish Bone Diagrams: 01/26/17 04:54 01/26/17 04:54 - Additional Planning My Orders: My Active Orders 01/26/17 CUL, WOUND AER/KATTY (QUEST) [REFLAB] Urgent Wound Consult MAC [MAC] Routine 01/26/17 12:41 HYDROmorphone INJ SYRINGE [Dilaudid Inj Syringe] 0.5 mg IVP Q2H PRN 01/26/17 13:00 Multivitamin W/Minerals [Theragran M] 1 tab PO DAILYWM 01/26/17 15:18 Daily Dressing Change [RC] DAILY 01/26/17 19:00 Ferrous Sulfate [Feosol] 325 mg PO BIDWM Levofloxacin/D5W 750 mg/150 mL q24h levoFLOXacin 750 MG/150 ML [Levaquin 750 mg/ 150 ml] 750 mg in 150 ml IV Q24H 01/26/17 22:00 metroNIDAZOLE 500 MG/100 ML [Flagyl 500 mg/100 ml] 500 mg in 100 ml IV Q8HR 01/27/17 05:00 BMP - BASIC METABOLIC PANEL [CHEM] DAILYLAB CBC - COMP BLD CT W/AUTO DIFF [HEME] DAILYLAB MAGNESIUM [CHEM] Routine Subjective - Subjective Patient Reports: Pain (L 4th toe, "it was pussy and smelly 2 days ago") Nursing Reports: Other (Toe was black and had a wet ulcer on dorsum) Objective Vital Signs: Vital Signs - 24 hr 01/25/17 01/25/17 01/25/17 18:31 19:00 19:18 Temperature 39 C H 38.2 C H Heart Rate [ Brachial] Heart Rate [ 137 H 139 H 138 H Monitoring electrodes] Respiratory 29 H 16 22 Rate Blood Pressure [Left Brachial artery] Blood Pressure 154/88 H 150/85 H [Right Brachial artery] O2 Saturation 96 94 95 01/25/17 01/25/17 01/25/17 19:36 19:46 22:44 Temperature 38.5 C H 39.3 C H Heart Rate [ Brachial] Heart Rate [ 140 H 143 H 147 H Monitoring electrodes] Respiratory 34 H 25 H 24 Rate Blood Pressure 163/100 H 166/97 H [Left Brachial artery] Blood Pressure 176/99 H [Right Brachial artery] O2 Saturation 94 93 89 L 01/25/17 01/26/17 01/26/17 23:45 04:05 06:42 Temperature 37.5 C 37.6 C H 38.0 C H Heart Rate [ Brachial] Heart Rate [ 136 H 126 H Monitoring electrodes] Respiratory 28 H 28 H Rate Blood Pressure 153/97 H [Left Brachial artery] Blood Pressure 135/95 H [Right Brachial artery] O2 Saturation 93 01/26/17 01/26/17 01/26/17 07:32 10:02 12:00 Temperature 37.3 C 37.2 C Heart Rate [ 128 H Brachial] Heart Rate [ 116 H Monitoring electrodes] Respiratory 24 28 H 26 H Rate Blood Pressure 143/99 H 112/71 [Left Brachial artery] Blood Pressure [Right Brachial artery] O2 Saturation 91 L 95 94 Oxygen O2 Source Nasal cannula I&O (Last 24 Hrs): Intake and Output Totals x24h 01/24/17 01/25/17 01/26/17 23:59 23:59 23:59 Intake Total 4855 5024.727 3090 Output Total 7194 8318 5175 Balance -2930 -1200.273 215 General: Alert, Oriented x3 HEENT: Mucous membr. moist/pink Neck: Supple Cardiovascular: Regular rate, Other (Tachy) Respiratory: No respiratory distress Abdomen: Soft Extremities: Other (L 4th toe, dorsum, wet black ulcer, 2x2 cm, slight redness around it, slight swelling of foot with tenderness. R has a dry black eschar of great toe and 4th toe, no sensation.) - Results Results: Laboratory Results WBC 8.1 x10^3/uL (4.8-10.8) 01/26/17 04:54 RBC 3.61 10^6/uL (4.20-5.40) L 01/26/17 04:54 Hgb 8.8 g/dL (12.0-16.0) L 01/26/17 04:54 Hct 27.7 % (37.0-47.0) L 01/26/17 04:54 MCV 76.8 fL (81.0-99.0) L 01/26/17 04:54 MCH 24.4 pg (27.0-31.0) L 01/26/17 04:54 MCHC 31.8 g/dL (32.0-36.0) L 01/26/17 04:54 RDW 17.1 % (12.0-15.0) H 01/26/17 04:54 Plt Count 166 10^3/uL (130-450) 01/26/17 04:54 MPV 8.4 fL (7.9-10.8) 01/26/17 04:54 Neut # 5.6 10^3/uL (1.5-6.6) 01/26/17 04:54 Lymph # 1.7 10^3/uL (1.5-3.5) 01/26/17 04:54 [place] # 0.7 10^3/uL (0.0-1.0) 01/26/17 04:54 Eos # 0.1 10^3/uL (0.0-0.7) 01/26/17 04:54 Baso # 0.1 10^3/uL (0.0-0.1) 01/26/17 04:54 Absolute Nucleated RBC 0.01 x10^3/uL 01/26/17 04:54 Nucleated RBC % 0.1 /100WBC 01/26/17 04:54 VBG pH 7.434 (7.31-7.41) H 01/22/17 19:27 VBG pCO2 26.2 mmHg (41-51) L 01/22/17 19:27 VBG pO2 51.5 mmHg (25-47) H 01/22/17 19:27 VBG HCO3 17.2 mmol/L (23-28) L 01/22/17 19:27 VBG Total CO2 18.0 mmol/L (24-29) L 01/22/17 19:27 VBG O2 Saturation 88.4 % (60-80) H 01/22/17 19:27 VBG Base Excess -5.7 mmol/L (-2 - +2) L 01/22/17 19:27 Sodium 136 mmol/L (135-145) 01/26/17 04:54 Potassium 3.2 mmol/L (3.5-5.0) L 01/26/17 04:54 Chloride 101 mmol/L (101-111) 01/26/17 04:54 Carbon Dioxide 26 mmol/L (21-32) 01/26/17 04:54 Anion Gap 9.0 (6-13) 01/26/17 04:54 BUN 17 mg/dL (6-20) 01/26/17 04:54 Creatinine 0.5 mg/dL (0.4-1.0) 01/26/17 04:54 Estimated GFR (MDRD) 140 (>89) 01/26/17 04:54 Glucose 137 mg/dL (70-100) H 01/26/17 04:54 POC Whole Bld Glucose 187 mg/dL (70 - 100) H 01/26/17 17:13 Glycated Hemoglobin 13.1 % (4.6-6.2) H 01/22/17 18:57 Estim Average Glucose 329 (70-100) H 01/22/17 18:57 Calcium 8.3 mg/dL (8.5-10.3) L 01/26/17 04:54 Phosphorus 2.4 mg/dL (2.5-4.6) L 01/22/17 21:16 Magnesium 1.7 mg/dL (1.7-2.8) 01/23/17 00:37 Iron < 6 ug/dL (28-170) L 01/26/17 13:12 TIBC 272 ug/dL (250-450) 01/26/17 13:12 % Saturation 2 % (20-50) L 01/26/17 13:12 Transferrin 194 mg/dL (192-382) 01/26/17 13:12 Total Bilirubin 1.3 mg/dL (0.2-1.0) H 01/22/17 18:57 AST 39 IU/L (10-42) 01/22/17 18:57 ALT 48 IU/L (10-60) 01/22/17 18:57 Alkaline Phosphatase 121 IU/L (42-121) 01/22/17 18:57 Troponin I < 0.04 ng/mL (<0.49) 01/22/17 18:57 C-Reactive Protein 1.4 mg/dL (0-1.0) H 01/23/17 19:19 Total Protein 5.9 g/dL (6.7-8.2) L 01/22/17 18:57 Albumin 3.5 g/dL (3.2-5.5) 01/22/17 18:57 Globulin 2.4 g/dL (2.1-4.2) 01/22/17 18:57 Albumin/Globulin Ratio 1.5 (1.0-2.2) 01/22/17 18:57 Lipase 69 U/L (22-51) H 01/22/17 18:57 Vitamin B12 247 pg/mL (180-914) 01/26/17 13:12 Folate 6.29 ng/mL (5.90 - >24.8) 01/26/17 13:12 Serum HCG, Qual NEGATIVE 01/22/17 18:57 Urine Color LT. YELLOW 01/22/17 20:40 Urine Clarity CLEAR (CLEAR) 01/22/17 20:40 Urine pH 6.0 PH (5.0-7.5) 01/22/17 20:40 Ur Specific [place] 1.015 (1.002-1.030) 01/22/17 20:40 Urine Protein NEGATIVE mg/dL (NEGATIVE) 01/22/17 20:40 Urine Glucose (UA) >=1000 mg/dL (NEGATIVE) H 01/22/17 20:40 Urine Ketones >=80 mg/dL (NEGATIVE) H 01/22/17 20:40 Urine Occult Blood NEGATIVE (NEGATIVE) 01/22/17 20:40 Urine Nitrite NEGATIVE (NEGATIVE) 01/22/17 20:40 Urine Bilirubin NEGATIVE (NEGATIVE) 01/22/17 20:40 Urine Urobilinogen 0.2 (NORMAL) E.U./dL (NORMAL) 01/22/17 20:40 Ur Leukocyte Esterase NEGATIVE (NEGATIVE) 01/22/17 20:40 Ur Microscopic Review NOT INDICATED 01/22/17 20:40 Urine Culture Comments NOT INDICATED 01/22/17 20:40 Serum Ketones LARGE (NEGATIVE) H 01/22/17 18:57 Influenza A (Rapid) Negative (Negative) 01/25/17 22:33 Influenza B (Rapid) Negative (Negative) 01/25/17 22:33 Influenza Types A,B Ag - 01/25/17 22:33 - Procedures Procedures: Procedures INSERT INFUSION DEV IN R INT JUGULAR VEIN, PERC (04/21/16) INSERTION OF INFUSION DEV INTO SUP VENA CAVA, PERC APPROACH (12/21/16) INSERTION OF INFUSION DEVICE INTO R ATRIUM, PERC APPROACH (12/04/15) TRANSFUSE NONAUT RED BLOOD CELLS IN PERIPH VEIN, PERC (04/21/16) ULTRASONOGRAPHY OF RIGHT JUGULAR VEINS, GUIDANCE (04/21/16)
[2017-01-26] MEDS: levoFLOXacin 750 MG/150 ML 750 MG/150 ML BAG IV SCH (18:36)
[2017-01-26] MEDS: FERROUS SULFATE 325 MG TABLET PO SCH (19:15)
[2017-01-26] MEDS: CILOSTAZOL 100 MG TABLET PO SCH ×2 (19:58→20:22)
[2017-01-26] MEDS ORDERED: SODIUM CHLORIDE 0.9% 100ML 100 ML IV ONE (21:26)
[2017-01-26] MEDS: MICONAZOLE VAGINAL CREAM 45 GM TUBE VG SCH (21:43)
[2017-01-26] MEDS: NICOTINE 14 MG PATCH TOP SCH (21:44)
[2017-01-26] MEDS: metroNIDAZOLE 500 MG/100 ML 500 MG/100 ML BAG IV SCH (22:42)
[2017-01-27] MEDS: oxyCODONE 5 MG TABLET PO PRN ×6 (01:40→23:01)
[2017-01-27] MEDS: ACETAMINOPHEN 325 MG TABLET PO PRN ×6 (01:40→23:01)
[2017-01-27] MEDS: KETOROLAC 15 MG/ML VIAL IVP PRN ×5 (01:40→19:50)
[2017-01-27] MEDS: HYDROmorphone 0.5 MG/0.5 ML SYRINGE IVP PRN ×11 (02:27→22:07)
[2017-01-27] MEDS: SODIUM CHLORIDE FLUSH 0.9% 10 ML SYRINGE IVP PRN ×4 (02:28→22:11)
[2017-01-27 05:34] LABS: BASOPHILS # (AUTO) 0.1 10^3/uL (0.0-0.1); EOSINOPHILS # (AUTO) 0.1 10^3/uL (0.0-0.7); EOSINOPHILS % (AUTO) 2.2 %; LYMPHOCYTES # (AUTO) 1.2 10^3/uL (1.5-3.5); MEAN PLATELET VOLUME 8.7 fL (7.9-10.8); MONOCYTES # (AUTO) 0.6 10^3/uL (0.0-1.0); MONOCYTES % (AUTO) 9.9 %; UNCORRECTED WHITE BLOOD COUNT 6.4 x10^3/uL; WHITE BLOOD COUNT 6.4 x10^3/uL (4.8-10.8)
[2017-01-27 05:38] LABS: HCT - HEMATOCRIT 25.5 % (37.0-47.0); LYMPHOCYTES % (AUTO) 19.2 %; MEAN CORPUSCULAR HEMOGLOBIN 24.2 pg (27.0-31.0); MEAN CORPUSCULAR HGB CONC 31.4 g/dL (32.0-36.0); MEAN CORPUSCULAR VOLUME 77.3 fL (81.0-99.0); NEUTROPHILS # (AUTO) 4.3 10^3/uL (1.5-6.6); NEUTROPHILS % (AUTO) 67.7 %; NUCLEATED RED BLOOD CELLS AUTO 0.1 /100WBC; RED CELL DISTRIBUTION WIDTH 17.3 % (12.0-15.0)
[2017-01-27 05:42] LABS: CALCIUM 8.6 mg/dL (8.5-10.3); CREATININE 0.4 mg/dL (0.4-1.0); MAGNESIUM 1.5 mg/dL (1.7-2.8); POTASSIUM 3.8 mmol/L (3.5-5.0)
[2017-01-27] MEDS: GABAPENTIN 100 MG CAPSULE PO SCH ×3 (06:28→22:07)
[2017-01-27] MEDS: metroNIDAZOLE 500 MG/100 ML 500 MG/100 ML BAG IV SCH ×2 (06:28→13:35)
[2017-01-27] MEDS: INSULIN ASPART 300 UNIT/3 ML PEN SUBQ SCH ×7 (07:46→22:10)
[2017-01-27] MEDS ORDERED: MAGNESIUM SULFATE 2 GRAM 2 GM/50 ML BAG IV ONE (08:18)
[2017-01-27] MEDS: FERROUS SULFATE 325 MG TABLET PO SCH ×2 (08:26→17:30)
[2017-01-27] MEDS: SENNA 8.6 MG TABLET PO SCH (08:27)
[2017-01-27] MEDS: clonazePAM 0.5 MG TABLET PO PRN ×2 (08:28→22:11)
[2017-01-27] MEDS: DOCUSATE SODIUM 250 MG CAPSULE PO SCH (08:28)
[2017-01-27] MEDS: MULTIVITAMIN W/MINERALS TABLET PO SCH (08:29)
[2017-01-27] MEDS: CILOSTAZOL 100 MG TABLET PO SCH ×2 (08:29→22:07)
[2017-01-27] MEDS: SACCHAROMYCES BOULARDII 250 MG CAPSULE PO SCH ×2 (08:29→17:30)
[2017-01-27] MEDS: LISINOPRIL 5 MG TABLET PO SCH (08:29)
[2017-01-27] MEDS: POLYETHYLENE GLYCOL 3350 17 GM PACKET PO SCH (08:29)
[2017-01-27] MEDS: METHOCARBAMOL 500 MG TABLET PO PRN ×2 (08:29→17:30)
[2017-01-27] MEDS: ENOXAPARIN 40 MG/0.4 ML SYRINGE SUBQ SCH (08:33)
[2017-01-27] MEDS: INSULIN GLARGINE 300 UNIT/3 ML PEN SUBQ SCH ×2 (08:34→22:10)
[2017-01-27] MEDS: MAGNESIUM OXIDE 400 MG TABLET PO SCH (09:31)
[2017-01-27] MEDS ORDERED: HYDROmorphone 0.5 MG/0.5 ML SYRINGE IVP SCH (10:30)
--- NOTE | 2017-01-27 10:34 | XRAY Report ---
PORTABLE CHEST: 01/27/2017 CLINICAL HISTORY: Shortness of breath. COMPARISON: 01/25/2017 chest x-ray and chest CT. FINDINGS: Shallow inspiratory effort. Mild pulmonary vascular congestion. No focal consolidation, pl eural fluid, pneumothorax, or other findings. IMPRESSION: SHALLOW INSPIRATORY EFFORT. OTHERWISE, NEGATIVE PORTABLE CHEST. JOB #: [id number] EXT JOB #:[id number]
[2017-01-27] MEDS ORDERED: SODIUM CHLORIDE 0.9% 1,000 ML IV ONE (11:14)
[2017-01-27] MEDS ORDERED: BISACODYL 10 MG SUPP PR SCH (12:00)
[2017-01-27] MEDS: SODIUM CHLORIDE FLUSH 0.9% 10 ML SYRINGE IVP SCH ×2 (14:27→19:50)
--- NOTE | 2017-01-27 17:15 | PROVIDER PROGRESS NOTE ---
Assessment/Plan - Problem List (1) Hypoxia Assessment/Plan: The patient's saturation today is even worse, 90% on 3 L oxygen by nasal cannula. The CXR shows only hypoventilation, no new parenchymal lung disease. Continue with supplemental oxygen and her anemia now needs to be treated with a transfusion. (2) Atherosclerotic PVD with ulceration Qualifiers: Peripheral atherosclerosis location: lower extremity Lower extremity ulceration location: other part of foot Laterality: left Assessment/Plan: Continue IV antibiotics which were changed from p.o. yesterday. Continue with dressing changes as recommended by Wound nurse, after debridement of the ulcer was done by her today. Continue new Pletal for PVD. Continue antibiotics iv, as there has been no fever now for 24 hours. (3) Vaginitis due to Ryann Assessment/Plan: Continue treatment, today is Day #6. (4) Anemia Qualifiers: Anemia type: iron deficiency Assessment/Plan: Guaiac test of stool was negative. This is likely due to volume replacementGiven IV during this admission Because of significant symptoms of PVD with an ulcer, low BP and hypoxemia, will transfuse the patient with 2 units PRBCs Follow CBC. (5) Anxiety Assessment/Plan: Continue Klonepin (6) Hypertension Qualifiers: Hypertension type: essential hypertension Qualified Code(s): I10 - Essential (primary) hypertension Assessment/Plan: BP was actually too low. Will decrease dose of Lisinopril. (7) Homeless Assessment/Plan: The pt indeed is interested in help from Social Work with placement. (8) Hypomagnesemia Assessment/Plan: Likely due to poor nutrition as a homeless person. Will replace Mg (9) DKA (diabetic ketoacidoses) Assessment/Plan: Resolved - Current Meds Current Meds: Current Medications Generic Name Dose Route Start Last Admin Trade Name Freq PRN Reason Stop Dose Admin Acetaminophen 650 mg 01/23/17 12:53 01/27/17 14:27 Tylenol PO 650 mg Q4HR PRN Administration Pain or Fever > 38C (100.4F) Cilostazol 100 mg 01/26/17 19:00 01/27/17 08:29 Pletal PO 100 mg BID SYLVIA Administration Clonazepam 0.5 mg 01/23/17 15:13 01/27/17 08:28 Klonopin PO 0.5 mg BID PRN Administration Anxiety Clonidine HCl 1 patch 01/25/17 08:00 01/25/17 07:51 [id number] TOP 1 patch Q7D SYLVIA Administration Docusate Sodium 250 - 500 mg 01/24/17 19:27 01/27/17 08:28 Colace 250mg Capsule PO 500 mg DAILY SYLVIA Administration Enoxaparin Sodium 40 mg 01/23/17 09:00 01/27/17 08:33 Lovenox SUBQ 40 mg DAILY SYLVIA Administration Ferrous Sulfate 325 mg 01/26/17 19:00 01/27/17 08:26 Feosol PO 325 mg BIDWM SYLVIA Administration Gabapentin 100 mg 01/24/17 11:00 01/27/17 13:34 Neurontin PO 100 mg TID [facility] Administration Hydromorphone HCl 0.5 mg 01/26/17 12:41 01/27/17 15:34 Dilaudid Inj Syringe IVP 0.5 mg Q2H PRN Administration PAIN Levofloxacin 750 mg in 150 mls @ 100 mls/hr 01/26/17 19:00 01/26/17 20:13 Levaquin 750 Mg/150 Ml IV Infused Q24H SYLVIA Infusion Metronidazole 500 mg in 100 mls @ 100 mls/hr 01/26/17 22:00 01/27/17 15:09 Flagyl 500 Mg/100 Ml IV Infused Q8HR [facility] Infusion Insulin Aspart 5 unit 01/25/17 17:00 01/27/17 12:19 Novolog SUBQ 5 unit TIDWM [facility] Administration Protocol Insulin Aspart 3 - 11 unit 01/27/17 08:00 01/27/17 11:35 Novolog SUBQ Not Given 0800,1200,1700,2100 [facility] Protocol Insulin Glargine 50 unit 01/24/17 04:12 01/27/17 08:34 Lantus Solostar SUBQ 50 unit BID [facility] Administration Ketorolac Tromethamine 15 mg 01/22/17 21:07 01/27/17 13:29 Toradol Inj IVP 01/28/17 00:00 15 mg Q6HR PRN Administration PAIN Lisinopril 2.5 mg 01/27/17 08:16 01/27/17 08:29 Zestril PO 2.5 mg DAILY SYLVIA Administration Magnesium Oxide 400 mg 01/27/17 09:00 01/27/17 09:31 Mag Ox PO 400 mg DAILYWM SYLVIA Administration Methocarbamol 500 mg 01/22/17 21:08 01/27/17 08:29 Robaxin PO 500 mg BID PRN Administration Spasms Metoclopramide HCl 10 mg 01/22/17 20:59 01/27/17 11:43 Reglan Inj IVP 10 mg Q6HR PRN Administration Nausea / Vomiting Miconazole 1 applic 01/23/17 16:00 01/26/17 21:43 Monistat-7 VG 1 appful QPM SYLVIA Administration Multivitamins/Minerals 1 tab 01/26/17 13:00 01/27/17 08:29 Theragran M PO 1 tab DAILYWM SYLVIA Administration Nicotine 1 patch 01/23/17 21:00 01/26/17 21:44 Nicoderm TOP 1 patch HS SYLVIA Administration Ondansetron HCl 4 mg 01/22/17 21:02 01/26/17 08:34 Zofran Inj IVP 4 mg Q6HR PRN Administration Nausea / Vomiting Oxycodone HCl 5 mg 01/23/17 12:53 01/27/17 14:27 Roxicodone PO 5 mg Q4HR PRN Administration PAIN Polyethylene Glycol 17 gm 01/23/17 09:00 01/27/17 08:29 Miralax PO 17 gm DAILY SYLVIA Administration Saccharomyces Boulardii 250 mg 01/22/17 23:45 01/27/17 08:29 Florastor PO 250 mg BIDWM SYLVIA Administration Senna 8.6 - 17.2 mg 01/25/17 09:00 01/27/17 08:27 Senokot PO 17.2 mg DAILY SYLVIA Administration Sodium Chloride 10 ml 01/22/17 21:02 01/27/17 06:29 Normal Saline Flush 0.9% IVP 10 ml PRN PRN Administration NEEDED PER PROVIDER ORDERS Sodium Chloride 10 ml 01/22/17 22:00 01/27/17 14:27 Normal Saline Flush 0.9% IVP 20 ml Q8HR SYLVIA Administration - Lab Result Fish Bone Diagrams: 01/27/17 04:56 01/27/17 04:56 - Additional Planning My Orders: My Active Orders 01/26/17 18:50 CUL, WOUND AER/KATTY (QUEST) [REFLAB] Urgent 01/26/17 19:00 Cilostazol [Pletal] 100 mg PO BID Ferrous Sulfate [Feosol] 325 mg PO BIDWM levoFLOXacin 750 MG/150 ML [Levaquin 750 mg/150 ml] 750 mg in 150 ml IV Q24H 01/26/17 22:00 metroNIDAZOLE 500 MG/100 ML [Flagyl 500 mg/100 ml] 500 mg in 100 ml IV Q8HR 01/27/17 08:00 Insulin Aspart [NovoLOG] 3 - 11 unit SUBQ 0800,1200,1700,2100 01/27/17 08:16 Lisinopril [Zestril] 2.5 mg PO DAILY 01/27/17 09:00 Magnesium Oxide [Mag Ox] 400 mg PO DAILYWM 01/28/17 05:00 BMP - BASIC METABOLIC PANEL [CHEM] DAILYLAB CBC - COMP BLD CT W/AUTO DIFF [HEME] DAILYLAB MAGNESIUM [CHEM] DAILYLAB Subjective - Subjective Patient Reports: Feeling Better Nursing Reports: Other (The patient had all of her pain medications administered prior to having debridement of the left fourth toe, dorsal side, performed by the wound nurse) Objective Vital Signs: Vital Signs - 24 hr 01/26/17 01/26/17 01/26/17 17:50 22:47 23:41 Temperature 36.2 C L 36.7 C 37.1 C Heart Rate [ 116 H 94 117 H Brachial] Respiratory 24 20 24 Rate Blood Pressure [Left Brachial artery] Blood Pressure 114/72 109/67 122/72 [Right Brachial artery] O2 Saturation 95 2 L 92 01/27/17 01/27/17 01/27/17 05:00 07:30 13:00 Temperature 36.4 C L 36.7 C 36.3 C L Heart Rate [ 118 H 122 H 130 H Brachial] Respiratory 24 20 20 Rate Blood Pressure 120/71 [Left Brachial artery] Blood Pressure 115/84 H 123/80 [Right Brachial artery] O2 Saturation 91 L 98 90 L 01/27/17 15:00 Temperature 36.8 C Heart Rate [ 133 H Brachial] Respiratory 22 Rate Blood Pressure [Left Brachial artery] Blood Pressure 118/53 L [Right Brachial artery] O2 Saturation 96 Oxygen O2 Source Room air I&O (Last 24 Hrs): Intake and Output Totals x24h 01/25/17 01/26/17 01/27/17 23:59 23:59 23:59 Intake Total 5024.727 4280 3140 Output Total 8352 1105 1900 Balance -3325.273 1005 1240 General: Alert, Oriented x3 HEENT: Mucous membr. moist/pink Neck: Supple Cardiovascular: Regular rate Respiratory: No respiratory distress Abdomen: Soft Extremities: No edema, Other (Bandage without seeping of left fourth toe.) - Results Results: Laboratory Results WBC 6.4 x10^3/uL (4.8-10.8) 01/27/17 04:56 RBC 3.30 10^6/uL (4.20-5.40) L 01/27/17 04:56 Hgb 8.0 g/dL (12.0-16.0) L 01/27/17 04:56 Hct 25.5 % (37.0-47.0) L 01/27/17 04:56 MCV 77.3 fL (81.0-99.0) L 01/27/17 04:56 MCH 24.2 pg (27.0-31.0) L 01/27/17 04:56 MCHC 31.4 g/dL (32.0-36.0) L 01/27/17 04:56 RDW 17.3 % (12.0-15.0) H 01/27/17 04:56 Plt Count 176 10^3/uL (130-450) 01/27/17 04:56 MPV 8.7 fL (7.9-10.8) 01/27/17 04:56 Neut # 4.3 10^3/uL (1.5-6.6) 01/27/17 04:56 Lymph # 1.2 10^3/uL (1.5-3.5) L 01/27/17 04:56 [place] # 0.6 10^3/uL (0.0-1.0) 01/27/17 04:56 Eos # 0.1 10^3/uL (0.0-0.7) 01/27/17 04:56 Baso # 0.1 10^3/uL (0.0-0.1) 01/27/17 04:56 Absolute Nucleated RBC 0.01 x10^3/uL 01/27/17 04:56 Nucleated RBC % 0.1 /100WBC 01/27/17 04:56 VBG pH 7.434 (7.31-7.41) H 01/22/17 19:27 VBG pCO2 26.2 mmHg (41-51) L 01/22/17 19:27 VBG pO2 51.5 mmHg (25-47) H 01/22/17 19:27 VBG HCO3 17.2 mmol/L (23-28) L 01/22/17 19:27 VBG Total CO2 18.0 mmol/L (24-29) L 01/22/17 19:27 VBG O2 Saturation 88.4 % (60-80) H 01/22/17 19:27 VBG Base Excess -5.7 mmol/L (-2 - +2) L 01/22/17 19:27 Sodium 138 mmol/L (135-145) 01/27/17 04:56 Potassium 3.8 mmol/L (3.5-5.0) 01/27/17 04:56 Chloride 103 mmol/L (101-111) 01/27/17 04:56 Carbon Dioxide 26 mmol/L (21-32) 01/27/17 04:56 Anion Gap 9.0 (6-13) 01/27/17 04:56 BUN 18 mg/dL (6-20) 01/27/17 04:56 Creatinine 0.4 mg/dL (0.4-1.0) 01/27/17 04:56 Estimated GFR (MDRD) 182 (>89) 01/27/17 04:56 Glucose 89 mg/dL (70-100) 01/27/17 04:56 POC Whole Bld Glucose 201 mg/dL (70 - 100) H 01/27/17 16:25 Glycated Hemoglobin 13.1 % (4.6-6.2) H 01/22/17 18:57 Estim Average Glucose 329 (70-100) H 01/22/17 18:57 Calcium 8.6 mg/dL (8.5-10.3) 01/27/17 04:56 Phosphorus 2.4 mg/dL (2.5-4.6) L 01/22/17 21:16 Magnesium 1.5 mg/dL (1.7-2.8) L 01/27/17 04:56 Iron < 6 ug/dL (28-170) L 01/26/17 13:12 TIBC 272 ug/dL (250-450) 01/26/17 13:12 % Saturation 2 % (20-50) L 01/26/17 13:12 Transferrin 194 mg/dL (192-382) 01/26/17 13:12 Total Bilirubin 1.3 mg/dL (0.2-1.0) H 01/22/17 18:57 AST 39 IU/L (10-42) 01/22/17 18:57 ALT 48 IU/L (10-60) 01/22/17 18:57 Alkaline Phosphatase 121 IU/L (42-121) 01/22/17 18:57 Troponin I < 0.04 ng/mL (<0.49) 01/22/17 18:57 C-Reactive Protein 1.4 mg/dL (0-1.0) H 01/23/17 19:19 Total Protein 5.9 g/dL (6.7-8.2) L 01/22/17 18:57 Albumin 3.5 g/dL (3.2-5.5) 01/22/17 18:57 Globulin 2.4 g/dL (2.1-4.2) 01/22/17 18:57 Albumin/Globulin Ratio 1.5 (1.0-2.2) 01/22/17 18:57 Lipase 69 U/L (22-51) H 01/22/17 18:57 Vitamin B12 247 pg/mL (180-914) 01/26/17 13:12 Folate 6.29 ng/mL (5.90 - >24.8) 01/26/17 13:12 Serum HCG, Qual NEGATIVE 01/22/17 18:57 Urine Color LT. YELLOW 01/22/17 20:40 Urine Clarity CLEAR (CLEAR) 01/22/17 20:40 Urine pH 6.0 PH (5.0-7.5) 01/22/17 20:40 Ur Specific [place] 1.015 (1.002-1.030) 01/22/17 20:40 Urine Protein NEGATIVE mg/dL (NEGATIVE) 01/22/17 20:40 Urine Glucose (UA) >=1000 mg/dL (NEGATIVE) H 01/22/17 20:40 Urine Ketones >=80 mg/dL (NEGATIVE) H 01/22/17 20:40 Urine Occult Blood NEGATIVE (NEGATIVE) 01/22/17 20:40 Urine Nitrite NEGATIVE (NEGATIVE) 01/22/17 20:40 Urine Bilirubin NEGATIVE (NEGATIVE) 01/22/17 20:40 Urine Urobilinogen 0.2 (NORMAL) E.U./dL (NORMAL) 01/22/17 20:40 Ur Leukocyte Esterase NEGATIVE (NEGATIVE) 01/22/17 20:40 Ur Microscopic Review NOT INDICATED 01/22/17 20:40 Urine Culture Comments NOT INDICATED 01/22/17 20:40 Serum Ketones LARGE (NEGATIVE) H 01/22/17 18:57 Influenza A (Rapid) Negative (Negative) 01/25/17 22:33 Influenza B (Rapid) Negative (Negative) 01/25/17 22:33 Influenza Types A,B Ag - 01/25/17 22:33 - Procedures Procedures: Procedures INSERT INFUSION DEV IN R INT JUGULAR VEIN, PERC (04/21/16) INSERTION OF INFUSION DEV INTO SUP VENA CAVA, PERC APPROACH (12/21/16) INSERTION OF INFUSION DEVICE INTO R ATRIUM, PERC APPROACH (12/04/15) TRANSFUSE NONAUT RED BLOOD CELLS IN PERIPH VEIN, PERC (04/21/16) ULTRASONOGRAPHY OF RIGHT JUGULAR VEINS, GUIDANCE (04/21/16)
[2017-01-27] MEDS: levoFLOXacin 750 MG/150 ML 750 MG/150 ML BAG IV SCH (18:56)
[2017-01-27] MEDS ORDERED: SODIUM CHLORIDE 0.9% 250 ML IV ONE (21:01)
[2017-01-27] MEDS: MICONAZOLE VAGINAL CREAM 45 GM TUBE VG SCH (22:07)
[2017-01-27] MEDS: NICOTINE 14 MG PATCH TOP SCH (22:08)
[2017-01-28] MEDS: ALBUTEROL NEB 2.5 MG/3 ML INH PRN ×3 (00:05→20:01)
[2017-01-28] MEDS: SODIUM CHLORIDE FLUSH 0.9% 10 ML SYRINGE IVP PRN ×8 (00:16→16:33)
[2017-01-28] MEDS: HYDROmorphone 0.5 MG/0.5 ML SYRINGE IVP PRN ×10 (00:16→20:42)
[2017-01-28] MEDS: metroNIDAZOLE 500 MG/100 ML 500 MG/100 ML BAG IV SCH (00:20)
[2017-01-28] MEDS: oxyCODONE 5 MG TABLET PO PRN ×5 (04:03→21:24)
[2017-01-28] MEDS: ACETAMINOPHEN 325 MG TABLET PO PRN ×5 (04:04→21:24)
[2017-01-28] MEDS: SODIUM CHLORIDE FLUSH 0.9% 10 ML SYRINGE IVP SCH ×3 (04:45→19:30)
[2017-01-28] MEDS: GABAPENTIN 100 MG CAPSULE PO SCH ×2 (06:20→13:09)
[2017-01-28] MEDS: clonazePAM 0.5 MG TABLET PO PRN ×2 (07:04→19:08)
[2017-01-28] MEDS: KETOROLAC 15 MG/ML VIAL IVP PRN ×2 (07:13→14:31)
[2017-01-28 08:17] LABS: BASOPHILS % (AUTO) 0.7 %; EOSINOPHILS % (AUTO) 2.4 %; HCT - HEMATOCRIT 27.6 % (37.0-47.0); LYMPHOCYTES % (AUTO) 22.4 %; MEAN CORPUSCULAR HEMOGLOBIN 24.6 pg (27.0-31.0); MEAN CORPUSCULAR HGB CONC 32.5 g/dL (32.0-36.0); MEAN CORPUSCULAR VOLUME 75.7 fL (81.0-99.0); MEAN PLATELET VOLUME 8.6 fL (7.9-10.8); MONOCYTES % (AUTO) 11.4 %; NEUTROPHILS % (AUTO) 63.1 %; RED BLOOD COUNT 3.65 10^6/uL (4.20-5.40); RED CELL DISTRIBUTION WIDTH 16.9 % (12.0-15.0); UNCORRECTED WHITE BLOOD COUNT 6.2 x10^3/uL; WHITE BLOOD COUNT 6.2 x10^3/uL (4.8-10.8)
[2017-01-28 08:29] LABS: CALCIUM 8.3 mg/dL (8.5-10.3); CREATININE 0.4 mg/dL (0.4-1.0); MAGNESIUM 1.9 mg/dL (1.7-2.8); POTASSIUM 4.6 mmol/L (3.5-5.0)
[2017-01-28] MEDS: INSULIN GLARGINE 300 UNIT/3 ML PEN SUBQ SCH ×2 (08:34→21:19)
[2017-01-28] MEDS: INSULIN ASPART 300 UNIT/3 ML PEN SUBQ SCH ×7 (08:35→21:41)
[2017-01-28 08:36] LABS: BAND NEUTROPHILS % (MANUAL) 1 %; BASOPHILS % (MANUAL) 2 %; EOSINOPHILS % (MANUAL) 5 %; LYMPHOCYTES % (MANUAL) 20 %; NEUTROPHILS % (MANUAL) 63 %; TOTAL CELLS COUNTED 100
[2017-01-28] MEDS: ENOXAPARIN 40 MG/0.4 ML SYRINGE SUBQ SCH (08:36)
[2017-01-28] MEDS: SACCHAROMYCES BOULARDII 250 MG CAPSULE PO SCH ×2 (08:36→16:55)
[2017-01-28] MEDS: POLYETHYLENE GLYCOL 3350 17 GM PACKET PO SCH (08:36)
[2017-01-28 08:37] LABS: NP AUTO DIFFERENTIAL? YES; NP MAN DIFFERENTIAL? NO
[2017-01-28] MEDS: DOCUSATE SODIUM 250 MG CAPSULE PO SCH (08:37)
[2017-01-28] MEDS: MULTIVITAMIN W/MINERALS TABLET PO SCH (08:37)
[2017-01-28] MEDS: FERROUS SULFATE 325 MG TABLET PO SCH ×2 (08:37→16:43)
[2017-01-28] MEDS: MAGNESIUM OXIDE 400 MG TABLET PO SCH (08:37)
[2017-01-28] MEDS: SENNA 8.6 MG TABLET PO SCH (08:37)
[2017-01-28] MEDS: LISINOPRIL 5 MG TABLET PO SCH (08:37)
[2017-01-28] MEDS: CILOSTAZOL 100 MG TABLET PO SCH ×2 (08:38→21:14)
[2017-01-28] MEDS ORDERED: metroNIDAZOLE 500 MG/100 ML 500 MG/100 ML BAG IV SCH (10:00)
[2017-01-28] MEDS: METHOCARBAMOL 500 MG TABLET PO PRN ×2 (10:47→18:42)
[2017-01-28] MEDS: PIPERACILLIN/TAZOBACTAM 3.375 GM in SODIUM CHLORIDE 0.9% MINIBAG 100 ML IV SCH (18:33)
[2017-01-28] MEDS: KETOROLAC 15 MG/ML VIAL IVP SCH (19:30)
[2017-01-28] MEDS: GABAPENTIN 300 MG CAPSULE PO SCH ×2 (20:05→21:39)
--- NOTE | 2017-01-28 20:16 | PROVIDER PROGRESS NOTE ---
Assessment/Plan - Problem List (1) Hypoxia Assessment/Plan: Despite a normal resp. rate and no cough, sats are low and she needs supplemental O2. Will recheck a CXR. The transfusion should help with improving sats as well. (2) Atherosclerotic PVD with ulceration Qualifiers: Peripheral atherosclerosis location: lower extremity Lower extremity ulceration location: other part of foot Laterality: left Assessment/Plan: Continue present plan (3) Vaginitis due to Ryann Assessment/Plan: Continue for a full course of intravaginal cream treatment. (4) Anemia Qualifiers: Anemia type: iron deficiency Assessment/Plan: No heme in stool. Likely low Fe intake, given homelessness. Due to documented desaturations, will transfuse 2 U PRBCs and monitor CBC. Oral iron supplements have also been started. (5) Anxiety Assessment/Plan: Pt on meds for intermittent anxious behavior. (6) Hypertension Qualifiers: Hypertension type: essential hypertension Qualified Code(s): I10 - Essential (primary) hypertension Assessment/Plan: Continue to adjust meds and monitor VS. (7) Homeless Assessment/Plan: SW is aware of working on placement. (8) Hypomagnesemia Assessment/Plan: Improved. (9) DKA (diabetic ketoacidoses) Assessment/Plan: Resolved. Continue diabetic diet and meds - Current Meds Current Meds: Current Medications Generic Name Dose Route Start Last Admin Trade Name Freq PRN Reason Stop Dose Admin Acetaminophen 650 mg 01/23/17 12:53 01/28/17 17:12 Tylenol PO 650 mg Q4HR PRN Administration Pain or Fever > 38C (100.4F) Albuterol 2.5 mg 01/27/17 22:57 01/28/17 20:01 INH 2.5 mg RTQ4H PRN Administration Wheezing Cilostazol 100 mg 01/26/17 19:00 01/28/17 08:38 Pletal PO 100 mg BID SYLVIA Administration Clonazepam 0.5 mg 01/23/17 15:13 01/28/17 19:08 Klonopin PO 0.5 mg BID PRN Administration Anxiety Clonidine HCl 1 patch 01/25/17 08:00 01/25/17 07:51 [id number]-Tci-[id number] TOP 1 patch Q7D SYLVIA Administration Docusate Sodium 250 - 500 mg 01/24/17 19:27 01/28/17 08:37 Colace 250mg Capsule PO 250 mg DAILY SYLVIA Administration Enoxaparin Sodium 40 mg 01/23/17 09:00 01/28/17 08:36 Lovenox SUBQ 40 mg DAILY SYLVIA Administration Ferrous Sulfate 325 mg 01/26/17 19:00 01/28/17 16:43 Feosol PO 325 mg BIDWM SYLVIA Administration Gabapentin 300 mg 01/28/17 20:00 01/28/17 20:05 Neurontin PO 300 mg TID SYLVIA Administration Hydromorphone HCl 0.5 mg 01/26/17 12:41 01/28/17 18:33 Dilaudid Inj Syringe IVP 0.5 mg Q2H PRN Administration PAIN Piperacillin Sod/Tazobactam 100 mls @ 200 mls/hr 01/28/17 18:00 01/28/17 18: 33 Sod 3.375 gm/ Sodium Chloride IV 200 mls/hr Q6H SYLVIA Administration Insulin Aspart 5 unit 01/25/17 17:00 01/28/17 16:41 Novolog SUBQ 5 unit TIDWM SYLVIA Administration Protocol Insulin Aspart 3 - 11 unit 01/27/17 08:00 01/28/17 16:42 Novolog SUBQ 3 unit 0800,1200,1700,2100 SYLVIA Administration Protocol Insulin Glargine 50 unit 01/24/17 04:12 01/28/17 08:34 Lantus Solostar SUBQ 50 unit BID SYLVIA Administration Ketorolac Tromethamine 15 mg 01/28/17 06:44 01/28/17 14:31 Toradol Inj IVP 02/02/17 06:43 15 mg Q6HR PRN Administration PAIN Ketorolac Tromethamine 15 mg 01/28/17 20:00 01/28/17 19:30 Toradol Inj IVP 02/02/17 19:59 15 mg ONCE SYLVIA Administration Lisinopril 2.5 mg 01/27/17 08:16 01/28/17 08:37 Zestril PO 2.5 mg DAILY SYLVIA Administration Magnesium Oxide 400 mg 01/27/17 09:00 01/28/17 08:37 Mag Ox PO 400 mg DAILYWM SYLVIA Administration Methocarbamol 500 mg 01/22/17 21:08 01/28/17 18:42 Robaxin PO 500 mg BID PRN Administration Spasms Metoclopramide HCl 10 mg 01/22/17 20:59 01/27/17 11:43 Reglan Inj IVP 10 mg Q6HR PRN Administration Nausea / Vomiting Miconazole 1 applic 01/23/17 16:00 01/27/17 22:07 Monistat-7 VG 1 appful QPM SYLVIA Administration Multivitamins/Minerals 1 tab 01/26/17 13:00 01/28/17 08:37 Theragran M PO 1 tab DAILYWM SYLVIA Administration Nicotine 1 patch 01/23/17 21:00 01/27/17 22:08 Nicoderm TOP 1 patch HS SYLVIA Administration Ondansetron HCl 4 mg 01/22/17 21:02 01/26/17 08:34 Zofran Inj IVP 4 mg Q6HR PRN Administration Nausea / Vomiting Oxycodone HCl 5 mg 01/23/17 12:53 01/28/17 17:12 Roxicodone PO 5 mg Q4HR PRN Administration PAIN Polyethylene Glycol 17 gm 01/23/17 09:00 01/28/17 08:36 Miralax PO 17 gm DAILY SYLVIA Administration Saccharomyces Boulardii 250 mg 01/22/17 23:45 01/28/17 16:55 Florastor PO 250 mg BIDWM SYLVIA Administration Senna 8.6 - 17.2 mg 01/25/17 09:00 01/28/17 08:37 Senokot PO 8.6 mg DAILY SYLVIA Administration Sodium Chloride 10 ml 01/22/17 21:02 01/28/17 16:33 Normal Saline Flush 0.9% IVP 10 ml PRN PRN Administration NEEDED PER PROVIDER ORDERS Sodium Chloride 10 ml 01/22/17 22:00 01/28/17 19:30 Normal Saline Flush 0.9% IVP 10 ml Q8HR SYLVIA Administration - Lab Result Fish Bone Diagrams: 01/28/17 08:02 01/30/17 08:38 - Additional Planning My Orders: My Active Orders 01/27/17 23:14 Incentive Spirometry - RT [RC] .TID 01/28/17 17:05 Miscellaenous Nursing Order [RC] QSHIFT 01/28/17 18:00 Piperacillin/Tazobactam [Zosyn] 3.375 gm Sodium Chloride 0.9% Minibag [Normal Saline 0.9% Minibag] 100 ml IV Q6H Subjective - Subjective Patient Reports: Feeling Better Nursing Reports: Pain (Pain when dressing is changed) Objective Vital Signs: Vital Signs - 24 hr 01/27/17 01/27/17 01/28/17 21:38 21:53 00:05 Temperature 36.7 C 37 C Heart Rate 135 H 131 H 130 H Heart Rate [ 131 H Brachial] Respiratory 18 20 24 Rate Blood Pressure 117/66 115/74 Blood Pressure [Left Brachial artery] Blood Pressure 115/74 [Right Brachial artery] O2 Saturation 94 01/28/17 01/28/17 01/28/17 00:31 03:09 03:53 Temperature 36.4 C L 36.4 C L 36.4 C L Heart Rate 130 H Heart Rate [ 130 H 119 H Brachial] Respiratory 20 22 Rate Blood Pressure 112/79 Blood Pressure 112/79 119/76 [Left Brachial artery] Blood Pressure 119/76 [Right Brachial artery] O2 Saturation 94 100 01/28/17 01/28/17 01/28/17 04:06 04:25 04:35 Temperature 36.4 C L 37.9 C H 37.3 C Heart Rate 119 H 124 H 124 H Heart Rate [ Brachial] Respiratory 22 24 24 Rate Blood Pressure 119/76 139/54 H 137/65 H Blood Pressure [Left Brachial artery] Blood Pressure [Right Brachial artery] O2 Saturation 01/28/17 01/28/17 01/28/17 05:24 07:29 07:50 Temperature 36.8 C 36.0 C L Heart Rate 126 H 111 H Heart Rate [ 118 H Brachial] Respiratory 18 22 20 Rate Blood Pressure 144/78 H Blood Pressure 140/89 H [Left Brachial artery] Blood Pressure [Right Brachial artery] O2 Saturation 97 01/28/17 01/28/17 01/28/17 11:19 19:17 20:10 Temperature 36.6 C Heart Rate 112 H Heart Rate [ 118 H 121 H Brachial] Respiratory 20 19 18 Rate Blood Pressure Blood Pressure 140/86 H 152/111 H [Left Brachial artery] Blood Pressure [Right Brachial artery] O2 Saturation 96 96 Oxygen O2 Source Nasal cannula I&O (Last 24 Hrs): Intake and Output Totals x24h 01/26/17 01/27/17 01/28/17 23:59 23:59 23:59 Intake Total 4280 3893.333 2670 Output Total 3275 2300 3900 Balance 1005 8580.686 -6300 General: Alert, No acute distress HEENT: Mucous membr. moist/pink, Other (edentulous) Neck: Supple Cardiovascular: Regular rate Respiratory: No respiratory distress Extremities: Other (L 4th toe wrapped. Other toes as previous (black eschars of 3 other toes)) - Results Results: Laboratory Results WBC 6.2 x10^3/uL (4.8-10.8) 01/28/17 08:02 RBC 3.65 10^6/uL (4.20-5.40) L 01/28/17 08:02 Hgb 9.0 g/dL (12.0-16.0) L 01/28/17 08:02 Hct 27.6 % (37.0-47.0) L 01/28/17 08:02 MCV 75.7 fL (81.0-99.0) L 01/28/17 08:02 MCH 24.6 pg (27.0-31.0) L 01/28/17 08:02 MCHC 32.5 g/dL (32.0-36.0) 01/28/17 08:02 RDW 16.9 % (12.0-15.0) H 01/28/17 08:02 Plt Count 196 10^3/uL (130-450) 01/28/17 08:02 MPV 8.6 fL (7.9-10.8) 01/28/17 08:02 Neut # Not Reportable 01/28/17 08:02 Lymph # Not Reportable 01/28/17 08:02 [place] # Not Reportable 01/28/17 08:02 Eos # Not Reportable 01/28/17 08:02 Baso # Not Reportable 01/28/17 08:02 Absolute Nucleated RBC Not Reportable 01/28/17 08:02 Total Counted 100 01/28/17 08:02 Band Neuts % (Manual) 1 % (0-10) 01/28/17 08:02 Reactive Lymphs % (Man) 2 % 01/28/17 08:02 Abnorm Lymph % (Manual) 0 % 01/28/17 08:02 Metamyelocytes % 1 % (-0) H 01/28/17 08:02 Nucleated RBC % Not Reportable 01/28/17 08:02 Neutrophils # (Manual) 4.0 10^3/uL (1.5-6.6) 01/28/17 08:02 Lymphocytes # (Manual) 1.4 10^3/uL (1.5-3.5) L 01/28/17 08:02 Monocytes # (Manual) 0.4 10^3/uL (0.0-1.0) 01/28/17 08:02 Eosinophils # (Manual) 0.3 10^3/uL (0-0.7) 01/28/17 08:02 Basophils # (Manual) 0.1 10^3/uL (0-0.1) 01/28/17 08:02 Nucleated RBCs 2 % 01/28/17 08:02 Differential Comment MANUAL DIFFERENTIAL 01/28/17 08:02 RBC Morph Micro Appear 1+ OVALOCYTES (NORMAL) 2+ HYPOCHROMASIA (NORMAL) 2+ MICROCYTOSIS (NORMAL) 01/28/17 08:02 RBC Morph Micro Appear 1+ OVALOCYTES (NORMAL) 2+ HYPOCHROMASIA (NORMAL) 2+ MICROCYTOSIS (NORMAL) 01/28/17 08:02 RBC Morph Micro Appear 1+ OVALOCYTES (NORMAL) 2+ HYPOCHROMASIA (NORMAL) 2+ MICROCYTOSIS (NORMAL) 01/28/17 08:02 VBG pH 7.434 (7.31-7.41) H 01/22/17 19:27 VBG pCO2 26.2 mmHg (41-51) L 01/22/17 19:27 VBG pO2 51.5 mmHg (25-47) H 01/22/17 19:27 VBG HCO3 17.2 mmol/L (23-28) L 01/22/17 19:27 VBG Total CO2 18.0 mmol/L (24-29) L 01/22/17 19:27 VBG O2 Saturation 88.4 % (60-80) H 01/22/17 19:27 VBG Base Excess -5.7 mmol/L (-2 - +2) L 01/22/17 19:27 Sodium 133 mmol/L (135-145) L 01/28/17 08:02 Potassium 4.6 mmol/L (3.5-5.0) 01/28/17 08:02 Chloride 97 mmol/L (101-111) L 01/28/17 08:02 Carbon Dioxide 24 mmol/L (21-32) 01/28/17 08:02 Anion Gap 12.0 (6-13) 01/28/17 08:02 BUN 18 mg/dL (6-20) 01/28/17 08:02 Creatinine 0.4 mg/dL (0.4-1.0) 01/28/17 08:02 Estimated GFR (MDRD) 182 (>89) 01/28/17 08:02 Glucose 212 mg/dL (70-100) H 01/28/17 08:02 POC Whole Bld Glucose 177 mg/dL (70 - 100) H 01/28/17 16:36 Glycated Hemoglobin 13.1 % (4.6-6.2) H 01/22/17 18:57 Estim Average Glucose 329 (70-100) H 01/22/17 18:57 Calcium 8.3 mg/dL (8.5-10.3) L 01/28/17 08:02 Phosphorus 2.4 mg/dL (2.5-4.6) L 01/22/17 21:16 Magnesium 1.9 mg/dL (1.7-2.8) 01/28/17 08:02 Iron < 6 ug/dL (28-170) L 01/26/17 13:12 TIBC 272 ug/dL (250-450) 01/26/17 13:12 % Saturation 2 % (20-50) L 01/26/17 13:12 Transferrin 194 mg/dL (192-382) 01/26/17 13:12 Total Bilirubin 1.3 mg/dL (0.2-1.0) H 01/22/17 18:57 AST 39 IU/L (10-42) 01/22/17 18:57 ALT 48 IU/L (10-60) 01/22/17 18:57 Alkaline Phosphatase 121 IU/L (42-121) 01/22/17 18:57 Troponin I < 0.04 ng/mL (<0.49) 01/22/17 18:57 C-Reactive Protein 1.4 mg/dL (0-1.0) H 01/23/17 19:19 Total Protein 5.9 g/dL (6.7-8.2) L 01/22/17 18:57 Albumin 3.5 g/dL (3.2-5.5) 01/22/17 18:57 Globulin 2.4 g/dL (2.1-4.2) 01/22/17 18:57 Albumin/Globulin Ratio 1.5 (1.0-2.2) 01/22/17 18:57 Lipase 69 U/L (22-51) H 01/22/17 18:57 Vitamin B12 247 pg/mL (180-914) 01/26/17 13:12 Folate 6.29 ng/mL (5.90 - >24.8) 01/26/17 13:12 Serum HCG, Qual NEGATIVE 01/22/17 18:57 Urine Color LT. YELLOW 01/22/17 20:40 Urine Clarity CLEAR (CLEAR) 01/22/17 20:40 Urine pH 6.0 PH (5.0-7.5) 01/22/17 20:40 Ur Specific [place] 1.015 (1.002-1.030) 01/22/17 20:40 Urine Protein NEGATIVE mg/dL (NEGATIVE) 01/22/17 20:40 Urine Glucose (UA) >=1000 mg/dL (NEGATIVE) H 01/22/17 20:40 Urine Ketones >=80 mg/dL (NEGATIVE) H 01/22/17 20:40 Urine Occult Blood NEGATIVE (NEGATIVE) 01/22/17 20:40 Urine Nitrite NEGATIVE (NEGATIVE) 01/22/17 20:40 Urine Bilirubin NEGATIVE (NEGATIVE) 01/22/17 20:40 Urine Urobilinogen 0.2 (NORMAL) E.U./dL (NORMAL) 01/22/17 20:40 Ur Leukocyte Esterase NEGATIVE (NEGATIVE) 01/22/17 20:40 Ur Microscopic Review NOT INDICATED 01/22/17 20:40 Urine Culture Comments NOT INDICATED 01/22/17 20:40 Serum Ketones LARGE (NEGATIVE) H 01/22/17 18:57 Influenza A (Rapid) Negative (Negative) 01/25/17 22:33 Influenza B (Rapid) Negative (Negative) 01/25/17 22:33 Influenza Types A,B Ag - 01/25/17 22:33 Blood Type O POSITIVE 01/27/17 17:47 Antibody Screen NEGATIVE 01/27/17 17:47 Crossmatch IS Only See Detail 01/27/17 17:47 - Procedures Procedures: Procedures INSERT INFUSION DEV IN R INT JUGULAR VEIN, PERC (02/28/17) INSERTION OF INFUSION DEV INTO SUP VENA CAVA, PERC APPROACH (12/21/16) INSERTION OF INFUSION DEVICE INTO R ATRIUM, PERC APPROACH (12/04/15) TRANSFUSE NONAUT RED BLOOD CELLS IN PERIPH VEIN, PERC (04/21/16) ULTRASONOGRAPHY OF RIGHT JUGULAR VEINS, GUIDANCE (04/21/16)
[2017-01-28] MEDS: NICOTINE 14 MG PATCH TOP SCH (21:26)
[2017-01-28] MEDS: MICONAZOLE VAGINAL CREAM 45 GM TUBE VG SCH (21:29)
[2017-01-29] MEDS: HYDROmorphone 0.5 MG/0.5 ML SYRINGE IVP PRN ×4 (00:05→06:17)
[2017-01-29] MEDS: SODIUM CHLORIDE FLUSH 0.9% 10 ML SYRINGE IVP PRN ×2 (00:07→02:01)
[2017-01-29] MEDS: PIPERACILLIN/TAZOBACTAM 3.375 GM in SODIUM CHLORIDE 0.9% MINIBAG 100 ML IV SCH ×4 (00:37→18:21)
[2017-01-29] MEDS: KETOROLAC 15 MG/ML VIAL IVP SCH (00:53)
[2017-01-29] MEDS: ACETAMINOPHEN 325 MG TABLET PO PRN ×6 (01:59→23:40)
[2017-01-29] MEDS: DULoxetine 20 MG CAPSULE PO SCH (01:59)
[2017-01-29] MEDS: oxyCODONE 5 MG TABLET PO PRN ×6 (02:00→23:40)
[2017-01-29] MEDS: SODIUM CHLORIDE FLUSH 0.9% 10 ML SYRINGE IVP SCH ×3 (04:03→19:41)
[2017-01-29] MEDS ORDERED: NITROGLYCERIN SL 0.4 MG TABLET SL PRN (06:05)
[2017-01-29] MEDS: ONDANSETRON 4 MG/2 ML VIAL IVP PRN (06:24)
[2017-01-29] MEDS: METHOCARBAMOL 500 MG TABLET PO PRN (06:48)
[2017-01-29] MEDS: GABAPENTIN 300 MG CAPSULE PO SCH ×3 (06:48→20:50)
[2017-01-29] MEDS: HYDROmorphone 1 MG/ML SYRINGE IVP PRN ×4 (09:14→19:39)
[2017-01-29] MEDS: MAGNESIUM OXIDE 400 MG TABLET PO SCH (09:15)
[2017-01-29] MEDS: SACCHAROMYCES BOULARDII 250 MG CAPSULE PO SCH ×2 (09:15→16:58)
[2017-01-29] MEDS: FERROUS SULFATE 325 MG TABLET PO SCH ×2 (09:15→16:58)
[2017-01-29] MEDS: CILOSTAZOL 100 MG TABLET PO SCH ×2 (09:15→20:55)
[2017-01-29] MEDS: SENNA 8.6 MG TABLET PO SCH (09:15)
[2017-01-29] MEDS: DOCUSATE SODIUM 250 MG CAPSULE PO SCH (09:15)
[2017-01-29] MEDS ORDERED: HYDROmorphone 0.5 MG/0.5 ML SYRINGE ONE ×2 (09:16→11:12)
[2017-01-29] MEDS: ENOXAPARIN 40 MG/0.4 ML SYRINGE SUBQ SCH (09:16)
[2017-01-29] MEDS: MULTIVITAMIN W/MINERALS TABLET PO SCH (09:16)
[2017-01-29] MEDS: ALPRAZolam 0.25 MG TABLET PO PRN ×2 (09:21→20:49)
[2017-01-29] MEDS: LISINOPRIL 5 MG TABLET PO SCH (09:21)
[2017-01-29] MEDS: INSULIN ASPART 300 UNIT/3 ML PEN SUBQ SCH ×7 (09:24→21:29)
[2017-01-29] MEDS: INSULIN GLARGINE 300 UNIT/3 ML PEN SUBQ SCH ×2 (09:24→21:29)
[2017-01-29] MEDS: POLYETHYLENE GLYCOL 3350 17 GM PACKET PO SCH (09:29)
[2017-01-29] MEDS ORDERED: WITCH HAZEL/GLYCERIN 1 EACH MED..PAD TOP PRN (10:07)
[2017-01-29] MEDS ORDERED: PROCHLORPERAZINE 10 MG/2 ML VIAL IVP PRN (10:09)
[2017-01-29] MEDS ORDERED: SODIUM CHLORIDE 0.9% 250 ML IV ONE ×2 (10:23)
[2017-01-29] MEDS: KETOROLAC 15 MG/ML VIAL IVP PRN ×3 (10:46→23:40)
[2017-01-29 12:09] LABS: VBG PH 7.402 (7.31-7.41); VBG TOTAL CO2 26.8 mmol/L (24-29)
[2017-01-29 12:10] LABS: VBG BASE EXCESS 0.7 mmol/L (-2 - +2)
[2017-01-29 12:11] LABS: VBG OXYGEN SATURATION 93.9 % (60-80)
[2017-01-29 12:28] LABS: ALBUMIN/GLOBULIN RATIO 0.6 (1.0-2.2); BILIRUBIN,TOTAL 0.8 mg/dL (0.2-1.0); CALCIUM 7.9 mg/dL (8.5-10.3); CREATININE 0.4 mg/dL (0.4-1.0); POTASSIUM 4.3 mmol/L (3.5-5.0); TOTAL PROTEIN 5.7 g/dL (6.7-8.2)
[2017-01-29 13:39] LABS: AMYLASE 26 U/L (28-100); LIPASE 17 U/L (22-51)
[2017-01-29 14:33] LABS: BILIRUBIN,URINE NEGATIVE (NEGATIVE); PH,URINE 6.5 PH (5.0-7.5)
[2017-01-29] MEDS: NICOTINE 14 MG PATCH TOP SCH (21:01)
[2017-01-29] MEDS: MICONAZOLE VAGINAL CREAM 45 GM TUBE VG SCH (21:05)
[2017-01-29] MEDS: ALBUTEROL NEB 2.5 MG/3 ML INH PRN (21:50)
[2017-01-29] MEDS ORDERED: AMITRIPTYLINE 25 MG TABLET PO SCH (22:00)
[2017-01-30] MEDS: AMITRIPTYLINE 25 MG TABLET PO SCH (00:09)
[2017-01-30] MEDS: HYDROmorphone 1 MG/ML SYRINGE IVP PRN ×9 (00:14→21:43)
[2017-01-30] MEDS: PIPERACILLIN/TAZOBACTAM 3.375 GM in SODIUM CHLORIDE 0.9% MINIBAG 100 ML IV SCH ×4 (00:28→18:17)
[2017-01-30] MEDS: METHOCARBAMOL 500 MG TABLET PO PRN ×2 (01:55→21:44)
[2017-01-30] MEDS: SODIUM CHLORIDE FLUSH 0.9% 10 ML SYRINGE IVP PRN (01:56)
[2017-01-30] MEDS: SODIUM CHLORIDE 0.9% 1,000 ML IV SCH ×2 (04:21→16:32)
[2017-01-30] MEDS: GABAPENTIN 300 MG CAPSULE PO SCH ×3 (04:59→21:44)
[2017-01-30] MEDS: SODIUM CHLORIDE FLUSH 0.9% 10 ML SYRINGE IVP SCH ×3 (05:35→21:53)
[2017-01-30] MEDS: KETOROLAC 15 MG/ML VIAL IVP PRN ×3 (05:41→19:49)
[2017-01-30] MEDS: oxyCODONE 5 MG TABLET PO PRN ×4 (05:41→19:52)
[2017-01-30] MEDS ORDERED: LORazepam 2 MG/ML VIAL IVP SCH (06:30)
[2017-01-30] MEDS: ALPRAZolam 0.25 MG TABLET PO PRN ×2 (07:30→19:52)
[2017-01-30] MEDS ORDERED: OLANZapine 10 MG VIAL IM ONE (07:41)
[2017-01-30] MEDS ORDERED: OLANZapine 10 MG VIAL IM PRN (07:49)
[2017-01-30] MEDS ORDERED: WATER FOR INJECTION,STERILE 10 ML ONE (07:52)
[2017-01-30] MEDS: DOCUSATE SODIUM 250 MG CAPSULE PO SCH (08:02)
[2017-01-30] MEDS: SENNA 8.6 MG TABLET PO SCH (08:02)
[2017-01-30] MEDS: POLYETHYLENE GLYCOL 3350 17 GM PACKET PO SCH (08:02)
[2017-01-30 09:08] LABS: ALBUMIN/GLOBULIN RATIO 0.5 (1.0-2.2); BILIRUBIN,TOTAL 0.4 mg/dL (0.2-1.0); CALCIUM 8.5 mg/dL (8.5-10.3); CREATININE 0.4 mg/dL (0.4-1.0); POTASSIUM 3.7 mmol/L (3.5-5.0)
[2017-01-30] MEDS ORDERED: DEXTROSE 50% ABBOJECT 25 GM/50 ML SYRINGE IVP ONE (09:15)
[2017-01-30] MEDS ORDERED: DEXTROSE 5% 1,000 ML IV SCH (10:00)
[2017-01-30] MEDS ORDERED: HYDROmorphone 0.5 MG/0.5 ML SYRINGE ONE ×3 (10:06→21:45)
[2017-01-30] MEDS: INSULIN ASPART 300 UNIT/3 ML PEN SUBQ SCH ×7 (10:20→21:46)
[2017-01-30] MEDS: LISINOPRIL 5 MG TABLET PO SCH (11:47)
[2017-01-30] MEDS: MAGNESIUM OXIDE 400 MG TABLET PO SCH (11:47)
[2017-01-30] MEDS: MULTIVITAMIN W/MINERALS TABLET PO SCH (11:47)
[2017-01-30] MEDS: SACCHAROMYCES BOULARDII 250 MG CAPSULE PO SCH ×2 (11:47→16:32)
[2017-01-30] MEDS: FERROUS SULFATE 325 MG TABLET PO SCH ×2 (11:47→16:32)
[2017-01-30] MEDS: DULoxetine 20 MG CAPSULE PO SCH (11:48)
[2017-01-30] MEDS: ENOXAPARIN 40 MG/0.4 ML SYRINGE SUBQ SCH (11:50)
[2017-01-30] MEDS: INSULIN GLARGINE 300 UNIT/3 ML PEN SUBQ SCH ×2 (11:50→21:46)
[2017-01-30] MEDS: CILOSTAZOL 100 MG TABLET PO SCH ×2 (11:50→22:09)
--- NOTE | 2017-01-30 12:42 | Ultrasound Preliminary Report ---
Exam: US ABDOMEN COMPLETE IMPRESSION: 1. Enlarged, fatty liver. Splenomegaly. 2. Mildly enlarged common bile duct may relate to postcholecystectomy state. 3. Cholecystectomy. 4. Other findings as noted above. [facility] SITE ID: [id number]
--- NOTE | 2017-01-30 12:44 | Ultrasound Report ---
EXAM: ABDOMEN ULTRASOUND EXAM DATE: 01/30/2017 10:34 AM. CLINICAL HISTORY: Abd pain, N/V, elevated LFTs. COMPARISON: CT KUB 01/05/2017. TECHNIQUE: Real-time scanning was performed with static images obtained. FINDINGS: Liver: Mildly inhomogeneous, increased echogenicity, suggesting diffuse fatty infiltration. No focal lesion. Liver measures 25.0 cm craniocaudally. Main portal vein flow: Hepatopetal. No convincing port al vein thrombosis. Gallbladder: Not identified, compatible with reported history of cholecystectomy. Biliary System: Common bile duct measures 7.6 mm. No intrahepatic ductal dilatation. Pancreas: Visualized portion is unremarkable. Kidneys: Right: 14.2 cm longitudinally. Normal echotexture.No hydronephrosis.No contour-deforming mass.No calc ulus. Left: 15.8 cm longitudinally. Normal echotexture.No hydronephrosis.No contour-deforming mass.No calcu abrahan. Spleen: 16.1 cm. No focal lesion. Aorta and Inferior Vena Cava: Unremarkable. Distal abdominal aorta is obscured. IMPRESSION: 1. Enlarged, fatty liver. Splenomegaly. 2. Mildly enlarged common bile duct may relate to postcholecystectomy state. 3. Cholecystectomy. 4. Other findings as noted above. [facility] Referring Provider Line: [phone] SITE ID: [id number]
[2017-01-30] MEDS: ACETAMINOPHEN 325 MG TABLET PO PRN ×2 (15:43→19:51)
[2017-01-30] MEDS: ALBUTEROL NEB 2.5 MG/3 ML INH PRN (16:00)
--- NOTE | 2017-01-30 16:09 | PROVIDER PROGRESS NOTE ---
Assessment/Plan - Problem List (1) Nausea and vomiting Qualifiers: Vomiting type: unspecified Vomiting Intractability: non-intractable Qualified Code(s): R11.2 - Nausea with vomiting, unspecified Assessment/Plan: Resolved as LFTs also improved. Ultrasound showed no [place], no gallstones or renal calculi. She does have hepatomegaly and spleno megaly. No obvious cause found. In the past this was seen when she had pancreatic enlargement. Continue diet restrictions for bowel rest. (2) Hypoxia Assessment/Plan: Improved since supplemental O2 restarted. Etiology remains unclear with normal RR and CXR. (3) Atherosclerotic PVD with ulceration Qualifiers: Peripheral atherosclerosis location: lower extremity Lower extremity ulceration location: other part of foot Laterality: left Assessment/Plan: Continue present meds an d plan. (4) Vaginitis due to Ry[place] Assessment/Plan: Continue final day of treatment. (5) Anemia Qualifiers: Anemia type: iron deficiency Assessment/Plan: Continue Fe replacement after had transfusion 2 days ago. (6) Anxiety Assessment/Plan: vs Bipolar disorder. Will add Zyprexa prn. (7) Hypertension Qualifiers: Hypertension type: essential hypertension Qualified Code(s): I10 - Essential (primary) hypertension Assessment/Plan: Bp controlled on current meds. (8) DKA (diabetic ketoacidoses) Assessment/Plan: Resolved. - Current Meds Current Meds: Current Medications Generic Name Dose Route Start Last Admin Trade Name Freq PRN Reason Stop Dose Admin Acetaminophen 650 mg 01/23/17 12:53 01/30/17 15:43 Tylenol PO 650 mg Q4HR PRN Administration Pain or Fever > 38C (100.4F) Albuterol 2.5 mg 01/27/17 22:57 01/30/17 16:00 INH 2.5 mg RTQ4H PRN Administration Wheezing Alprazolam 1 mg 01/29/17 06:09 01/30/17 07:30 Xanax PO 1 mg BID PRN Administration Anxiety Amitriptyline HCl 50 mg 01/29/17 23:44 01/30/17 00:09 Elavil PO 25 mg QPM SYLVIA Administration Cilostazol 100 mg 01/26/17 19:00 01/30/17 11:50 Pletal PO 100 mg BID SYLVIA Administration Clonidine HCl 1 patch 01/25/17 08:00 01/25/17 07:51 [id number] TOP 1 patch Q7D SYLVIA Administration Docusate Sodium 250 - 500 mg 01/24/17 19:27 01/30/17 08:02 Colace 250mg Capsule PO Not Given DAILY SYLVIA Duloxetine HCl 20 mg 01/29/17 01:15 01/30/17 11:48 Cymbalta PO 20 mg DAILY SYLVIA Administration Enoxaparin Sodium 40 mg 01/23/17 09:00 01/30/17 11:50 Lovenox SUBQ 40 mg DAILY SYLVIA Administration Ferrous Sulfate 325 mg 01/26/17 19:00 01/30/17 11:47 Feosol PO 325 mg BIDWM SYLVIA Administration Gabapentin 300 mg 01/28/17 20:00 01/30/17 14:32 Neurontin PO Not Given TID SYLVIA Hydromorphone HCl 0.5 mg 01/29/17 08:10 01/30/17 15:52 Dilaudid Inj Syringe IVP 0.5 mg Q2H PRN Administration PAIN Piperacillin Sod/Tazobactam 100 mls @ 200 mls/hr 01/28/17 18:00 01/30/17 12: 25 Sod 3.375 gm/ Sodium Chloride IV Infused Q6H SYLVIA Infusion Sodium Chloride 1,000 mls @ 100 mls/hr 01/30/17 04:15 01/30/17 12:02 Normal Saline 0.9% IV 100 mls/hr .Q10H SYLVIA Infusion Dextrose 1,000 mls @ 100 mls/hr 01/30/17 10:00 01/30/17 12:02 D5w IV 0 mls/hr .Q10H SYLVIA Infusion Insulin Aspart 5 unit 01/25/17 17:00 01/30/17 11:51 Novolog SUBQ 5 unit TIDWM SYLVIA Administration Protocol Insulin Aspart 3 - 11 unit 01/27/17 08:00 01/30/17 11:51 Novolog SUBQ Not Given 0800,1200,1700,2100 [facility] Protocol Insulin Glargine 50 unit 01/24/17 04:12 01/30/17 11:50 Lantus Solostar SUBQ 50 unit BID SYLVIA Administration Ketorolac Tromethamine 15 mg 01/28/17 06:44 01/30/17 11:52 Toradol Inj IVP 02/02/17 06:43 15 mg Q6HR PRN Administration PAIN Ketorolac Tromethamine 15 mg 01/28/17 20:00 01/29/17 00:53 Toradol Inj IVP 02/02/17 19:59 15 mg ONCE SYLVIA Administration Lisinopril 2.5 mg 01/27/17 08:16 01/30/17 11:47 Zestril PO 2.5 mg DAILY SYLVIA Administration Magnesium Oxide 400 mg 01/27/17 09:00 01/30/17 11:47 Mag Ox PO 400 mg DAILYWM SYLVIA Administration Methocarbamol 1,000 mg 01/29/17 06:07 01/30/17 01:55 Robaxin PO 1,000 mg BID PRN Administration Spasms Miconazole 1 applic 01/23/17 16:00 01/29/17 21:05 Monistat-7 VG 1 appful QPM SYLVIA Administration Multivitamins/Minerals 1 tab 01/26/17 13:00 01/30/17 11:47 Theragran M PO 1 tab DAILYWM SYLVIA Administration Nicotine 1 patch 01/23/17 21:00 01/29/17 21:01 Nicoderm TOP 1 patch HS SYLVIA Administration Nitroglycerin 0.4 mg 01/29/17 06:05 01/29/17 06:49 Nitrostat SL 0.4 mg Q5MIN PRN Administration Chest Pain Ondansetron HCl 4 mg 01/22/17 21:02 01/29/17 06:24 Zofran Inj IVP 4 mg Q6HR PRN Administration Nausea / Vomiting Oxycodone HCl 5 mg 01/23/17 12:53 01/30/17 15:44 Roxicodone PO 5 mg Q4HR PRN Administration PAIN Polyethylene Glycol 17 gm 01/23/17 09:00 01/30/17 08:02 Miralax PO Not Given DAILY SYLVIA Prochlorperazine Edisylate 10 mg 01/29/17 10:09 01/29/17 10:22 Compazine Inj IVP 10 mg Q4HR PRN Administration Nausea / Vomiting Saccharomyces Boulardii 250 mg 01/22/17 23:45 01/30/17 11:47 Florastor PO 250 mg BIDWM SYLVIA Administration Senna 8.6 - 17.2 mg 01/25/17 09:00 01/30/17 08:02 Senokot PO Not Given DAILY SYLVIA Sodium Chloride 10 ml 01/22/17 21:02 01/30/17 01:56 Normal Saline Flush 0.9% IVP 10 ml PRN PRN Administration NEEDED PER PROVIDER ORDERS Sodium Chloride 10 ml 01/22/17 22:00 01/30/17 13:19 Normal Saline Flush 0.9% IVP Not Given Q8HR SYLVIA Witch Shantel/Glycerin 1 each 01/29/17 10:07 01/29/17 10:22 Tucks TOP 1 each PRN PRN Administration ITCHING - Lab Result Fish Bone Diagrams: 01/28/17 08:02 01/30/17 08:38 - Additional Planning My Orders: My Active Orders 01/30/17 07:49 OLANZapine IM [ZyPREXA IM] 5 mg IM Q4H PRN 01/30/17 07:54 OLANZapine ODT [ZyPREXA ODT] 5 mg TL BID PRN 01/30/17 08:38 DRUG AND ALCOHOL SCREEN SER/PL [REFLAB] Routine 01/30/17 10:00 Dextrose 5% [D5w] 1,000 ml IV 100 mls/hr 01/30/17 Lunch Soft (Low Fiber) Diet [DIET] Subjective - Subjective Nursing Reports: Other (Pt was agitated this am, throwing object and yelling at her RN. Zyprexa was ordered.) Objective Vital Signs: Vital Signs - 24 hr 01/29/17 01/29/17 01/29/17 20:40 21:00 21:50 Temperature 35.8 C L 36.8 C Heart Rate 117 H Heart Rate [ 111 H 120 H Brachial] Respiratory 20 16 18 Rate Blood Pressure [Left Brachial artery] Blood Pressure 143/99 H 144/91 H [Right Brachial artery] O2 Saturation 96 94 01/30/17 01/30/17 01/30/17 01:00 06:29 13:51 Temperature 36.9 C Heart Rate Heart Rate [ 128 H 120 H 120 H Brachial] Respiratory 20 20 20 Rate Blood Pressure 140/94 H 163/85 H [Left Brachial artery] Blood Pressure 149/100 H [Right Brachial artery] O2 Saturation 94 93 93 Oxygen O2 Source Nasal cannula I&O (Last 24 Hrs): Intake and Output Totals x24h 01/28/17 01/29/1717 23:59 23:59 23:59 Intake Total 3010 5630 2243.334 Output Total 3900 600 1000 Balance -890 5030 1243.334 General: Other (Appears fatigued) HEENT: Mucous membr. moist/pink Neck: Supple Neuro: Alert Cardiovascular: Regular rate Respiratory: No respiratory distress Abdomen: Soft Extremities: Other (Wrapped L 4th toe. No pedal edema.) - Results Results: Laboratory Results WBC 6.2 x10^3/uL (4.8-10.8) 01/28/17 08:02 RBC 3.65 10^6/uL (4.20-5.40) L 01/28/17 08:02 Hgb 9.0 g/dL (12.0-16.0) L 01/28/17 08:02 Hct 27.6 % (37.0-47.0) L 01/28/17 08:02 MCV 75.7 fL (81.0-99.0) L 01/28/17 08:02 MCH 24.6 pg (27.0-31.0) L 01/28/17 08:02 MCHC 32.5 g/dL (32.0-36.0) 01/28/17 08:02 RDW 16.9 % (12.0-15.0) H 01/28/17 08:02 Plt Count 196 10^3/uL (130-450) 01/28/17 08:02 MPV 8.6 fL (7.9-10.8) 01/28/17 08:02 Neut # Not Reportable 01/28/17 08:02 Lymph # Not Reportable 01/28/17 08:02 [place] # Not Reportable 01/28/17 08:02 Eos # Not Reportable 01/28/17 08:02 Baso # Not Reportable 01/28/17 08:02 Absolute Nucleated RBC Not Reportable 01/28/17 08:02 Total Counted 100 01/28/17 08:02 Band Neuts % (Manual) 1 % (0-10) 01/28/17 08:02 Reactive Lymphs % (Man) 2 % 01/28/17 08:02 Abnorm Lymph % (Manual) 0 % 01/28/17 08:02 Metamyelocytes % 1 % (-0) H 01/28/17 08:02 Nucleated RBC % Not Reportable 01/28/17 08:02 Neutrophils # (Manual) 4.0 10^3/uL (1.5-6.6) 01/28/17 08:02 Lymphocytes # (Manual) 1.4 10^3/uL (1.5-3.5) L 01/28/17 08:02 Monocytes # (Manual) 0.4 10^3/uL (0.0-1.0) 01/28/17 08:02 Eosinophils # (Manual) 0.3 10^3/uL (0-0.7) 01/28/17 08:02 Basophils # (Manual) 0.1 10^3/uL (0-0.1) 01/28/17 08:02 Nucleated RBCs 2 % 01/28/17 08:02 Differential Comment MANUAL DIFFERENTIAL 01/28/17 08:02 RBC Morph Micro Appear 1+ OVALOCYTES (NORMAL) 2+ HYPOCHROMASIA (NORMAL) 2+ MICROCYTOSIS (NORMAL) 01/28/17 08:02 RBC Morph Micro Appear 1+ OVALOCYTES (NORMAL) 2+ HYPOCHROMASIA (NORMAL) 2+ MICROCYTOSIS (NORMAL) 01/28/17 08:02 RBC Morph Micro Appear 1+ OVALOCYTES (NORMAL) 2+ HYPOCHROMASIA (NORMAL) 2+ MICROCYTOSIS (NORMAL) 01/28/17 08:02 VBG pH 7.402 (7.31-7.41) 01/29/17 12:01 VBG pCO2 42.0 mmHg (41-51) 01/29/17 12:01 VBG pO2 71.2 mmHg (25-47) H 01/29/17 12:01 VBG HCO3 25.5 mmol/L (23-28) 01/29/17 12:01 VBG Total CO2 26.8 mmol/L (24-29) 01/29/17 12:01 VBG O2 Saturation 93.9 % (60-80) H 01/29/17 12:01 VBG Base Excess 0.7 mmol/L (-2 - +2) 01/29/17 12:01 Sodium 140 mmol/L (135-145) 01/30/17 08:38 Potassium 3.7 mmol/L (3.5-5.0) 01/30/17 08:38 Chloride 101 mmol/L (101-111) 01/30/17 08:38 Carbon Dioxide 27 mmol/L (21-32) 01/30/17 08:38 Anion Gap 12.0 (6-13) 01/30/17 08:38 BUN 15 mg/dL (6-20) 01/30/17 08:38 Creatinine 0.4 mg/dL (0.4-1.0) 01/30/17 08:38 Estimated GFR (MDRD) 182 (>89) 01/30/17 08:38 Glucose 70 mg/dL (70-100) 01/30/17 08:38 POC Whole Bld Glucose 96 mg/dL (70 - 100) 01/30/17 11:30 Glycated Hemoglobin 13.1 % (4.6-6.2) H 01/22/17 18:57 Estim Average Glucose 329 (70-100) H 01/22/17 18:57 Calcium 8.5 mg/dL (8.5-10.3) 01/30/17 08:38 Phosphorus 2.4 mg/dL (2.5-4.6) L 01/22/17 21:16 Magnesium 1.9 mg/dL (1.7-2.8) 01/28/17 08:02 Iron < 6 ug/dL (28-170) L 01/26/17 13:12 TIBC 272 ug/dL (250-450) 01/26/17 13:12 % Saturation 2 % (20-50) L 01/26/17 13:12 Transferrin 194 mg/dL (192-382) 01/26/17 13:12 Total Bilirubin 0.4 mg/dL (0.2-1.0) 01/30/17 08:38 AST 201 IU/L (10-42) H 01/30/17 08:38 ALT 185 IU/L (10-60) H 01/30/17 08:38 Alkaline Phosphatase 536 IU/L (42-121) H 01/30/17 08:38 Troponin I < 0.04 ng/mL (<0.49) 01/22/17 18:57 C-Reactive Protein 1.4 mg/dL (0-1.0) H 01/23/17 19:19 Total Protein 6.0 g/dL (6.7-8.2) L 01/30/17 08:38 Albumin 2.1 g/dL (3.2-5.5) L 01/30/17 08:38 Globulin 3.9 g/dL (2.1-4.2) 01/30/17 08:38 Albumin/Globulin Ratio 0.5 (1.0-2.2) L 01/30/17 08:38 Amylase 26 U/L (28-100) L 01/29/17 12:01 Lipase 17 U/L (22-51) L 01/29/17 12:01 Vitamin B12 247 pg/mL (180-914) 01/26/17 13:12 Folate 6.29 ng/mL (5.90 - >24.8) 01/26/17 13:12 Serum HCG, Qual NEGATIVE 01/22/17 18:57 Cortisol AM Sample 5.3 ug/dL 01/30/17 08:38 Urine Color YELLOW 01/29/17 14:00 Urine Clarity CLEAR (CLEAR) 01/29/17 14:00 Urine pH 6.5 PH (5.0-7.5) 01/29/17 14:00 Ur Specific [place] 1.010 (1.002-1.030) 01/29/17 14:00 Urine Protein NEGATIVE mg/dL (NEGATIVE) 01/29/17 14:00 Urine Glucose (UA) NEGATIVE mg/dL (NEGATIVE) 01/29/17 14:00 Urine Ketones NEGATIVE mg/dL (NEGATIVE) 01/29/17 14:00 Urine Occult Blood NEGATIVE (NEGATIVE) 01/29/17 14:00 Urine Nitrite NEGATIVE (NEGATIVE) 01/29/17 14:00 Urine Bilirubin NEGATIVE (NEGATIVE) 01/29/17 14:00 Urine Urobilinogen 0.2 (NORMAL) E.U./dL (NORMAL) 01/29/17 14:00 Ur Leukocyte Esterase NEGATIVE (NEGATIVE) 01/29/17 14:00 Ur Microscopic Review NOT INDICATED 01/22/17 20:40 Urine Culture Comments NOT INDICATED 01/22/17 20:40 Urine Opiates Screen POSITIVE (NEGATIVE) H 01/30/17 09:50 Ur Oxycodone Screen POSITIVE (NEGATIVE) H 01/30/17 09:50 Urine Methadone Screen NEGATIVE (NEGATIVE) 01/30/17 09:50 Ur Propoxyphene Screen NEGATIVE (NEGATIVE) 01/30/17 09:50 Ur Barbiturates Screen NEGATIVE (NEGATIVE) 01/30/17 09:50 Ur Tricyclics Screen NEGATIVE (NEGATIVE) 01/30/17 09:50 Ur Phencyclidine Scrn NEGATIVE (NEGATIVE) 01/30/17 09:50 Ur Amphetamine Screen NEGATIVE (NEGATIVE) 01/30/17 09:50 U Methamphetamines Scrn NEGATIVE (NEGATIVE) 01/30/17 09:50 U Benzodiazepines Scrn POSITIVE (NEGATIVE) H 01/30/17 09:50 Urine Cocaine Screen NEGATIVE (NEGATIVE) 01/30/17 09:50 U Cannabinoids Screen NEGATIVE (NEGATIVE) 01/30/17 09:50 Serum Ketones LARGE (NEGATIVE) H 01/22/17 18:57 Influenza A (Rapid) Negative (Negative) 01/25/17 22:33 Influenza B (Rapid) Negative (Negative) 01/25/17 22:33 Influenza Types A,B Ag - 01/25/17 22:33 Blood Type O POSITIVE 01/27/17 17:47 Antibody Screen NEGATIVE 01/27/17 17:47 Crossmatch IS Only See Detail 01/27/17 17:47 - Procedures Procedures: Procedures INSERT INFUSION DEV IN R INT JUGULAR VEIN, PERC (04/21/16) INSERTION OF INFUSION DEV INTO SUP VENA CAVA, PERC APPROACH (12/21/16) INSERTION OF INFUSION DEVICE INTO R ATRIUM, PERC APPROACH (12/04/15) TRANSFUSE NONAUT RED BLOOD CELLS IN PERIPH VEIN, PERC (04/21/16) ULTRASONOGRAPHY OF RIGHT JUGULAR VEINS, GUIDANCE (04/21/16)
[2017-01-30] MEDS ORDERED: SODIUM CHLORIDE FLUSH 0.9% 10 ML SYRINGE IVP ONE (18:15)
[2017-01-30] MEDS: OLANZapine ODT 5 MG TABLET TL PRN (21:44)
[2017-01-30] MEDS: NICOTINE 14 MG PATCH TOP SCH (21:44)
[2017-01-30] MEDS: MICONAZOLE VAGINAL CREAM 45 GM TUBE VG SCH (21:45)
[2017-01-31] MEDS: SODIUM CHLORIDE 0.9% 1,000 ML IV SCH (00:05)
[2017-01-31] MEDS: HYDROmorphone 1 MG/ML SYRINGE IVP PRN ×9 (00:05→22:14)
[2017-01-31] MEDS: PIPERACILLIN/TAZOBACTAM 3.375 GM in SODIUM CHLORIDE 0.9% MINIBAG 100 ML IV SCH ×4 (00:12→19:45)
[2017-01-31] MEDS: oxyCODONE 5 MG TABLET PO PRN ×5 (02:22→21:04)
[2017-01-31] MEDS: KETOROLAC 15 MG/ML VIAL IVP PRN ×3 (02:31→16:15)
[2017-01-31] MEDS: GABAPENTIN 300 MG CAPSULE PO SCH ×3 (06:32→22:10)
[2017-01-31] MEDS: SODIUM CHLORIDE FLUSH 0.9% 10 ML SYRINGE IVP SCH ×3 (06:33→22:11)
[2017-01-31] MEDS: INSULIN ASPART 300 UNIT/3 ML PEN SUBQ SCH ×7 (08:16→20:56)
[2017-01-31] MEDS: SACCHAROMYCES BOULARDII 250 MG CAPSULE PO SCH ×2 (08:24→16:17)
[2017-01-31] MEDS: FERROUS SULFATE 325 MG TABLET PO SCH ×2 (08:24→16:13)
[2017-01-31] MEDS: MAGNESIUM OXIDE 400 MG TABLET PO SCH (08:24)
[2017-01-31] MEDS: MULTIVITAMIN W/MINERALS TABLET PO SCH (08:24)
[2017-01-31] MEDS: OLANZapine ODT 5 MG TABLET TL PRN ×2 (08:34→22:12)
[2017-01-31] MEDS: ALPRAZolam 0.25 MG TABLET PO PRN ×3 (08:42→20:48)
[2017-01-31] MEDS: ALBUTEROL NEB 2.5 MG/3 ML INH PRN (08:45)
[2017-01-31] MEDS: LISINOPRIL 5 MG TABLET PO SCH (10:05)
[2017-01-31] MEDS: DOCUSATE SODIUM 250 MG CAPSULE PO SCH (10:06)
[2017-01-31] MEDS: SENNA 8.6 MG TABLET PO SCH (10:06)
[2017-01-31] MEDS: ENOXAPARIN 40 MG/0.4 ML SYRINGE SUBQ SCH (10:06)
[2017-01-31] MEDS: NICOTINE 14 MG PATCH TOP SCH (10:07)
[2017-01-31] MEDS: POLYETHYLENE GLYCOL 3350 17 GM PACKET PO SCH (10:07)
[2017-01-31] MEDS: CILOSTAZOL 100 MG TABLET PO SCH ×2 (10:11→20:47)
[2017-01-31] MEDS: INSULIN GLARGINE 300 UNIT/3 ML PEN SUBQ SCH ×2 (10:11→20:55)
[2017-01-31] MEDS: DULoxetine 20 MG CAPSULE PO SCH (10:15)
[2017-01-31] MEDS: ACETAMINOPHEN 325 MG TABLET PO PRN ×3 (10:27→21:03)
--- NOTE | 2017-01-31 17:57 | PROVIDER PROGRESS NOTE ---
Assessment/Plan - Problem List (1) Hypoxia Assessment/Plan: The patient still requires supplemental O2 to achieve a resting O2 sat of 91-93% . Perhaps she has asthma/COPD, as she benefits from inhaler treatments. Continue plan. (2) Atherosclerotic PVD with ulceration Qualifiers: Peripheral atherosclerosis location: lower extremity Lower extremity ulceration location: other part of foot Laterality: left Assessment/Plan: Continue topical wound care, pain meds and Pletal. (3) Vaginitis due to Ryann Assessment/Plan: Course of treatment completed today. (4) Anemia Qualifiers: Anemia type: iron deficiency Assessment/Plan: Stable H/H after transfusion. [place] of stool was neg. Continue to monitor labs. (5) Anxiety Assessment/Plan: Today, the patient is less agitated. Continue present meds. (6) Hypertension Qualifiers: Hypertension type: essential hypertension Qualified Code(s): I10 - Essential (primary) hypertension Assessment/Plan: Stable on current meds. Continue to monitor. Will DC telemetry. (7) Diabetes type 1, uncontrolled Qualifiers: Diabetes mellitus complication status: with unspecified complications Qualified Code(s): E10.8 - Type 1 diabetes mellitus with unspecified complications; E10.65 - Type 1 diabetes mellitus with hyperglycemia Assessment/Plan: Will advance diet carefully and continue meds. (8) Elevated LFTs Assessment/Plan: No further vomiting for 1.5 days. No obvious etiology found on imagimg except that Pt has a Hx of abdominal pain and a pancreatic mass that was evaluated in [place], no Dx given. Will advance her diet carefully, as she requests. - Current Meds Current Meds: Current Medications Generic Name Dose Route Start Last Admin Trade Name Freq PRN Reason Stop Dose Admin Acetaminophen 650 mg 01/23/17 12:53 01/31/17 16:21 Tylenol PO 650 mg Q4HR PRN Administration Pain or Fever > 38C (100.4F) Albuterol 2.5 mg 01/27/17 22:57 01/31/17 08:45 INH 2.5 mg RTQ4H PRN Administration Wheezing Alprazolam 1 mg 01/29/17 06:09 01/31/17 14:26 Xanax PO 1 mg BID PRN Administration Anxiety Amitriptyline HCl 50 mg 01/29/17 23:44 01/30/17 00:09 Elavil PO 25 mg QPM SYLVIA Administration Cilostazol 100 mg 01/26/17 19:00 01/31/17 10:11 Pletal PO 100 mg BID SYLVIA Administration Clonidine HCl 1 patch 01/25/17 08:00 01/25/17 07:51 [id number] TOP 1 patch Q7D SYLVIA Administration Docusate Sodium 250 - 500 mg 01/24/17 19:27 01/31/17 10:06 Colace 250mg Capsule PO 250 mg DAILY SYLVIA Administration Duloxetine HCl 20 mg 01/29/17 01:15 01/31/17 10:15 Cymbalta PO 20 mg DAILY SYLVIA Administration Enoxaparin Sodium 40 mg 01/23/17 09:00 01/31/17 10:06 Lovenox SUBQ 40 mg DAILY SYLVIA Administration Ferrous Sulfate 325 mg 01/26/17 19:00 01/31/17 16:13 Feosol PO 325 mg BIDWM SYLVIA Administration Gabapentin 300 mg 01/28/17 20:00 01/31/17 14:26 Neurontin PO 300 mg TID SYLVIA Administration Hydromorphone HCl 0.5 mg 01/29/17 08:10 01/31/17 17:36 Dilaudid Inj Syringe IVP 0.5 mg Q2H PRN Administration PAIN Piperacillin Sod/Tazobactam 100 mls @ 200 mls/hr 01/28/17 18:00 01/31/17 12: 37 Sod 3.375 gm/ Sodium Chloride IV 200 mls/hr Q6H SYLVIA Administration Insulin Aspart 5 unit 01/25/17 17:00 01/31/17 16:07 Novolog SUBQ 5 unit TIDWM SYLVIA Administration Protocol Insulin Aspart 3 - 11 unit 01/27/17 08:00 01/31/17 17:40 Novolog SUBQ 9 unit 0800,1200,1700,2100 SYLVIA Administration Protocol Insulin Glargine 50 unit 01/24/17 04:12 01/31/17 10:11 Lantus Solostar SUBQ 50 unit BID SYLVIA Administration Ketorolac Tromethamine 15 mg 01/28/17 06:44 01/31/17 16:15 Toradol Inj IVP 02/02/17 06:43 15 mg Q6HR PRN Administration PAIN Lisinopril 2.5 mg 01/27/17 08:16 01/31/17 10:05 Zestril PO 2.5 mg DAILY SYLVIA Administration Magnesium Oxide 400 mg 01/27/17 09:00 01/31/17 08:24 Mag Ox PO 400 mg DAILYWM SYLVIA Administration Methocarbamol 1,000 mg 01/29/17 06:07 01/30/17 21:44 Robaxin PO 1,000 mg BID PRN Administration Spasms Multivitamins/Minerals 1 tab 01/26/17 13:00 01/31/17 08:24 Theragran M PO 1 tab DAILYWM SYLVIA Administration Nicotine 1 patch 01/23/17 21:00 01/31/17 10:07 Nicoderm TOP 1 patch HS SYLVIA Administration Nitroglycerin 0.4 mg 01/29/17 06:05 01/29/17 06:49 Nitrostat SL 0.4 mg Q5MIN PRN Administration Chest Pain Olanzapine 5 mg 01/30/17 07:54 01/31/17 08:34 Zyprexa Odt TL 5 mg BID PRN Administration Agitation Ondansetron HCl 4 mg 01/22/17 21:02 01/29/17 06:24 Zofran Inj IVP 4 mg Q6HR PRN Administration Nausea / Vomiting Oxycodone HCl 5 mg 01/23/17 12:53 01/31/17 16:21 Roxicodone PO 5 mg Q4HR PRN Administration PAIN Polyethylene Glycol 17 gm 01/23/17 09:00 01/31/17 10:07 Miralax PO 17 gm DAILY SYLVIA Administration Prochlorperazine Edisylate 10 mg 01/29/17 10:09 01/29/17 10:22 Compazine Inj IVP 10 mg Q4HR PRN Administration Nausea / Vomiting Saccharomyces Boulardii 250 mg 01/22/17 23:45 01/31/17 16:17 Florastor PO 250 mg BIDWM SYLVIA Administration Senna 8.6 - 17.2 mg 01/25/17 09:00 01/31/17 10:06 Senokot PO 8.6 mg DAILY SYLVIA Administration Sodium Chloride 10 ml 01/22/17 21:02 01/30/17 01:56 Normal Saline Flush 0.9% IVP 10 ml PRN PRN Administration NEEDED PER PROVIDER ORDERS Sodium Chloride 10 ml 01/22/17 22:00 01/31/17 12:38 Normal Saline Flush 0.9% IVP 10 ml Q8HR SYLVIA Administration Witch Shantel/Glycerin 1 each 01/29/17 10:07 01/29/17 10:22 Tucks TOP 1 each PRN PRN Administration ITCHING - Lab Result Fish Bone Diagrams: 01/28/17 08:02 01/30/17 08:38 - Additional Planning My Orders: My Active Orders 01/31/17 Lunch DIET [Carb-controlled Diet] [DIET] 02/01/17 05:00 CMP [COMPREHENSIVE METABOLIC PANEL] [CHEM] Routine Subjective - Subjective Patient Reports: No Complaints Nursing Reports: Other (Pt cannot find the paperwork which the SW brought her, regarding placement to a facility.) Objective Vital Signs: Vital Signs - 24 hr 01/30/17 01/30/17 01/31/17 19:10 20:07 01:00 Temperature 36.7 C 36.7 C Heart Rate 129 H Heart Rate [ 127 H 121 H Brachial] Respiratory 20 22 20 Rate Blood Pressure [Left Brachial artery] Blood Pressure 157/95 H 152/93 H [Right Brachial artery] O2 Saturation 94 94 01/31/17 01/31/17 01/31/17 05:00 07:35 08:45 Temperature 36.4 C L Heart Rate 116 H 117 H Heart Rate [ 114 H Brachial] Respiratory 21 20 16 Rate Blood Pressure 141/101 H [Left Brachial artery] Blood Pressure [Right Brachial artery] O2 Saturation 95 01/31/17 01/31/17 10:42 15:36 Temperature 36.7 C 36.5 C Heart Rate Heart Rate [ 123 H 130 H Brachial] Respiratory 21 18 Rate Blood Pressure [Left Brachial artery] Blood Pressure 157/99 H 151/102 H [Right Brachial artery] O2 Saturation 92 91 L Oxygen O2 Source Nasal cannula I&O (Last 24 Hrs): Intake and Output Totals x24h 01/29/17 01/30/17 01/31/17 23:59 23:59 23:59 Intake Total 5630 4526.667 5880 Output Total 600 1000 Balance 5030 3526.667 5880 General: No acute distress HEENT: Mucous membr. moist/pink Neck: Supple Cardiovascular: Regular rate Respiratory: No respiratory distress Abdomen: Soft Extremities: No edema, Other (Wrapped toe L 4th) - Results Results: Laboratory Results WBC 6.2 x10^3/uL (4.8-10.8) 01/28/17 08:02 RBC 3.65 10^6/uL (4.20-5.40) L 01/28/17 08:02 Hgb 9.0 g/dL (12.0-16.0) L 01/28/17 08:02 Hct 27.6 % (37.0-47.0) L 01/28/17 08:02 MCV 75.7 fL (81.0-99.0) L 01/28/17 08:02 MCH 24.6 pg (27.0-31.0) L 01/28/17 08:02 MCHC 32.5 g/dL (32.0-36.0) 01/28/17 08:02 RDW 16.9 % (12.0-15.0) H 01/28/17 08:02 Plt Count 196 10^3/uL (130-450) 01/28/17 08:02 MPV 8.6 fL (7.9-10.8) 01/28/17 08:02 Neut # Not Reportable 01/28/17 08:02 Lymph # Not Reportable 01/28/17 08:02 [place] # Not Reportable 01/28/17 08:02 Eos # Not Reportable 01/28/17 08:02 Baso # Not Reportable 01/28/17 08:02 Absolute Nucleated RBC Not Reportable 01/28/17 08:02 Total Counted 100 01/28/17 08:02 Band Neuts % (Manual) 1 % (0-10) 01/28/17 08:02 Reactive Lymphs % (Man) 2 % 01/28/17 08:02 Abnorm Lymph % (Manual) 0 % 01/28/17 08:02 Metamyelocytes % 1 % (-0) H 01/28/17 08:02 Nucleated RBC % Not Reportable 01/28/17 08:02 Neutrophils # (Manual) 4.0 10^3/uL (1.5-6.6) 01/28/17 08:02 Lymphocytes # (Manual) 1.4 10^3/uL (1.5-3.5) L 01/28/17 08:02 Monocytes # (Manual) 0.4 10^3/uL (0.0-1.0) 01/28/17 08:02 Eosinophils # (Manual) 0.3 10^3/uL (0-0.7) 01/28/17 08:02 Basophils # (Manual) 0.1 10^3/uL (0-0.1) 01/28/17 08:02 Nucleated RBCs 2 % 01/28/17 08:02 Differential Comment MANUAL DIFFERENTIAL 01/28/17 08:02 RBC Morph Micro Appear 1+ OVALOCYTES (NORMAL) 2+ HYPOCHROMASIA (NORMAL) 2+ MICROCYTOSIS (NORMAL) 01/28/17 08:02 RBC Morph Micro Appear 1+ OVALOCYTES (NORMAL) 2+ HYPOCHROMASIA (NORMAL) 2+ MICROCYTOSIS (NORMAL) 01/28/17 08:02 RBC Morph Micro Appear 1+ OVALOCYTES (NORMAL) 2+ HYPOCHROMASIA (NORMAL) 2+ MICROCYTOSIS (NORMAL) 01/28/17 08:02 VBG pH 7.402 (7.31-7.41) 01/29/17 12:01 VBG pCO2 42.0 mmHg (41-51) 01/29/17 12:01 VBG pO2 71.2 mmHg (25-47) H 01/29/17 12:01 VBG HCO3 25.5 mmol/L (23-28) 01/29/17 12:01 VBG Total CO2 26.8 mmol/L (24-29) 01/29/17 12:01 VBG O2 Saturation 93.9 % (60-80) H 01/29/17 12:01 VBG Base Excess 0.7 mmol/L (-2 - +2) 01/29/17 12:01 Sodium 140 mmol/L (135-145) 01/30/17 08:38 Potassium 3.7 mmol/L (3.5-5.0) 01/30/17 08:38 Chloride 101 mmol/L (101-111) 01/30/17 08:38 Carbon Dioxide 27 mmol/L (21-32) 01/30/17 08:38 Anion Gap 12.0 (6-13) 01/30/17 08:38 BUN 15 mg/dL (6-20) 01/30/17 08:38 Creatinine 0.4 mg/dL (0.4-1.0) 01/30/17 08:38 Estimated GFR (MDRD) 182 (>89) 01/30/17 08:38 Glucose 70 mg/dL (70-100) 01/30/17 08:38 POC Whole Bld Glucose 285 mg/dL (70 - 100) H 01/31/17 17:01 Glycated Hemoglobin 13.1 % (4.6-6.2) H 01/22/17 18:57 Estim Average Glucose 329 (70-100) H 01/22/17 18:57 Calcium 8.5 mg/dL (8.5-10.3) 01/30/17 08:38 Phosphorus 2.4 mg/dL (2.5-4.6) L 01/22/17 21:16 Magnesium 1.9 mg/dL (1.7-2.8) 01/28/17 08:02 Iron < 6 ug/dL (28-170) L 01/26/17 13:12 TIBC 272 ug/dL (250-450) 01/26/17 13:12 % Saturation 2 % (20-50) L 01/26/17 13:12 Transferrin 194 mg/dL (192-382) 01/26/17 13:12 Total Bilirubin 0.4 mg/dL (0.2-1.0) 01/30/17 08:38 AST 201 IU/L (10-42) H 01/30/17 08:38 ALT 185 IU/L (10-60) H 01/30/17 08:38 Alkaline Phosphatase 536 IU/L (42-121) H 01/30/17 08:38 Troponin I < 0.04 ng/mL (<0.49) 01/22/17 18:57 C-Reactive Protein 1.4 mg/dL (0-1.0) H 01/23/17 19:19 Total Protein 6.0 g/dL (6.7-8.2) L 01/30/17 08:38 Albumin 2.1 g/dL (3.2-5.5) L 01/30/17 08:38 Globulin 3.9 g/dL (2.1-4.2) 01/30/17 08:38 Albumin/Globulin Ratio 0.5 (1.0-2.2) L 01/30/17 08:38 Amylase 26 U/L (28-100) L 01/29/17 12:01 Lipase 17 U/L (22-51) L 01/29/17 12:01 Vitamin B12 247 pg/mL (180-914) 01/26/17 13:12 Folate 6.29 ng/mL (5.90 - >24.8) 01/26/17 13:12 Serum HCG, Qual NEGATIVE 01/22/17 18:57 Cortisol AM Sample 5.3 ug/dL 01/30/17 08:38 Urine Color YELLOW 01/29/17 14:00 Urine Clarity CLEAR (CLEAR) 01/29/17 14:00 Urine pH 6.5 PH (5.0-7.5) 01/29/17 14:00 Ur Specific [place] 1.010 (1.002-1.030) 01/29/17 14:00 Urine Protein NEGATIVE mg/dL (NEGATIVE) 01/29/17 14:00 Urine Glucose (UA) NEGATIVE mg/dL (NEGATIVE) 01/29/17 14:00 Urine Ketones NEGATIVE mg/dL (NEGATIVE) 01/29/17 14:00 Urine Occult Blood NEGATIVE (NEGATIVE) 01/29/17 14:00 Urine Nitrite NEGATIVE (NEGATIVE) 01/29/17 14:00 Urine Bilirubin NEGATIVE (NEGATIVE) 01/29/17 14:00 Urine Urobilinogen 0.2 (NORMAL) E.U./dL (NORMAL) 01/29/17 14:00 Ur Leukocyte Esterase NEGATIVE (NEGATIVE) 01/29/17 14:00 Ur Microscopic Review NOT INDICATED 01/22/17 20:40 Urine Culture Comments NOT INDICATED 01/22/17 20:40 Urine Opiates Screen POSITIVE (NEGATIVE) H 01/30/17 09:50 Ur Oxycodone Screen POSITIVE (NEGATIVE) H 01/30/17 09:50 Urine Methadone Screen NEGATIVE (NEGATIVE) 01/30/17 09:50 Ur Propoxyphene Screen NEGATIVE (NEGATIVE) 01/30/17 09:50 Ur Barbiturates Screen NEGATIVE (NEGATIVE) 01/30/17 09:50 Ur Tricyclics Screen NEGATIVE (NEGATIVE) 01/30/17 09:50 Ur Phencyclidine Scrn NEGATIVE (NEGATIVE) 01/30/17 09:50 Ur Amphetamine Screen NEGATIVE (NEGATIVE) 01/30/17 09:50 U Methamphetamines Scrn NEGATIVE (NEGATIVE) 01/30/17 09:50 U Benzodiazepines Scrn POSITIVE (NEGATIVE) H 01/30/17 09:50 Urine Cocaine Screen NEGATIVE (NEGATIVE) 01/30/17 09:50 U Cannabinoids Screen NEGATIVE (NEGATIVE) 01/30/17 09:50 Serum Ketones LARGE (NEGATIVE) H 01/22/17 18:57 Hep Bs Antigen NON-REACTIVE (NON-REACTIVE) 01/29/17 08:38 Hep Bs Immunity Index <5 mIU/mL (> OR = 10) L 01/29/17 08:38 Hep B Core Total Ab NON-REACTIVE (NON-REACTIVE) 01/29/17 08:38 Hepatitis C Antibody NON-REACTIVE (NON-REACTIVE) 01/29/17 08:38 Hep C Ab Signal/Cutoff 0.00 (<1.00) 01/29/17 08:38 Influenza A (Rapid) Negative (Negative) 01/25/17 22:33 Influenza B (Rapid) Negative (Negative) 01/25/17 22:33 Influenza Types A,B Ag - 01/25/17 22:33 Blood Type O POSITIVE 01/27/17 17:47 Antibody Screen NEGATIVE 01/27/17 17:47 Crossmatch IS Only See Detail 01/27/17 17:47 - Procedures Procedures: Procedures INSERT INFUSION DEV IN R INT JUGULAR VEIN, PERC (04/21/16) INSERTION OF INFUSION DEV INTO SUP VENA CAVA, PERC APPROACH (12/21/16) INSERTION OF INFUSION DEVICE INTO R ATRIUM, PERC APPROACH (12/04/15) TRANSFUSE NONAUT RED BLOOD CELLS IN PERIPH VEIN, PERC (04/21/16) ULTRASONOGRAPHY OF RIGHT JUGULAR VEINS, GUIDANCE (04/21/16)
[2017-01-31] MEDS: AMITRIPTYLINE 25 MG TABLET PO SCH (20:46)
[2017-01-31] MEDS: METHOCARBAMOL 500 MG TABLET PO PRN (22:09)
[2017-02-01] MEDS: PIPERACILLIN/TAZOBACTAM 3.375 GM in SODIUM CHLORIDE 0.9% MINIBAG 100 ML IV SCH ×4 (00:02→18:13)
[2017-02-01] MEDS: KETOROLAC 15 MG/ML VIAL IVP PRN ×4 (00:11→21:01)
[2017-02-01] MEDS: HYDROmorphone 1 MG/ML SYRINGE IVP PRN ×4 (00:11→17:15)
[2017-02-01] MEDS: SODIUM CHLORIDE FLUSH 0.9% 10 ML SYRINGE IVP PRN ×2 (04:27→21:04)
[2017-02-01 05:07] LABS: ALBUMIN/GLOBULIN RATIO 0.6 (1.0-2.2); BILIRUBIN,TOTAL 0.2 mg/dL (0.2-1.0); CALCIUM 8.7 mg/dL (8.5-10.3); CREATININE 0.4 mg/dL (0.4-1.0); POTASSIUM 4.1 mmol/L (3.5-5.0); TOTAL PROTEIN 6.5 g/dL (6.7-8.2)
[2017-02-01] MEDS: GABAPENTIN 300 MG CAPSULE PO SCH ×3 (06:19→21:06)
[2017-02-01] MEDS: oxyCODONE 5 MG TABLET PO PRN ×3 (06:19→20:58)
[2017-02-01] MEDS: SODIUM CHLORIDE FLUSH 0.9% 10 ML SYRINGE IVP SCH ×4 (06:20→17:26)
[2017-02-01] MEDS: FERROUS SULFATE 325 MG TABLET PO SCH ×2 (07:55→17:26)
[2017-02-01] MEDS: cloNIDine 0.1 MG PATCH TOP SCH (07:55)
[2017-02-01] MEDS: INSULIN ASPART 300 UNIT/3 ML PEN SUBQ SCH ×7 (07:56→21:25)
[2017-02-01] MEDS: MULTIVITAMIN W/MINERALS TABLET PO SCH (07:57)
[2017-02-01] MEDS: OLANZapine ODT 5 MG TABLET TL PRN ×4 (07:57→21:16)
[2017-02-01] MEDS: MAGNESIUM OXIDE 400 MG TABLET PO SCH (07:57)
[2017-02-01] MEDS: SACCHAROMYCES BOULARDII 250 MG CAPSULE PO SCH ×2 (07:57→17:26)
[2017-02-01] MEDS: ACETAMINOPHEN 325 MG TABLET PO PRN ×3 (07:57→20:57)
[2017-02-01] MEDS: ALPRAZolam 0.25 MG TABLET PO PRN ×2 (07:58→17:15)
[2017-02-01] MEDS ORDERED: METOPROLOL SUCCINATE 25 MG TABLET PO SCH (08:00)
[2017-02-01] MEDS: DULoxetine 20 MG CAPSULE PO SCH (11:44)
[2017-02-01] MEDS: CILOSTAZOL 100 MG TABLET PO SCH ×2 (11:44→21:15)
[2017-02-01] MEDS: DOCUSATE SODIUM 250 MG CAPSULE PO SCH (11:44)
[2017-02-01] MEDS: POLYETHYLENE GLYCOL 3350 17 GM PACKET PO SCH (11:45)
[2017-02-01] MEDS: LISINOPRIL 5 MG TABLET PO SCH (11:45)
[2017-02-01] MEDS: ENOXAPARIN 40 MG/0.4 ML SYRINGE SUBQ SCH (11:45)
[2017-02-01] MEDS: METHOCARBAMOL 500 MG TABLET PO SCH ×2 (11:45→22:24)
[2017-02-01] MEDS: SENNA 8.6 MG TABLET PO SCH (11:46)
--- NOTE | 2017-02-01 12:19 | PROVIDER PROGRESS NOTE ---
Assessment/Plan - Problem List (1) Hypoxia Assessment/Plan: Possibly due to COPD, in ex-smoker. Had CTA chest on 02/04/17 with no PE found. Last CXR on 01/27/17 suggested mild volume overload. Will check Limited Echo for LVEF and RVEF. Will check BNP. Possibly start daily Lasix. Continue supplemental oxygen and inhalers. (2) Atherosclerotic PVD with ulceration Qualifiers: Peripheral atherosclerosis location: lower extremity Lower extremity ulceration location: other part of foot Laterality: left Assessment/Plan: Final cultures grew "scant growth" of Staph aureus and Group B Strep. Pt has slow improvement clinically, with less swelling and less pain every day. She is on Day# 7 of 10 of iv Zosyn. Continue (new) Gabapentin and Pletal, antibiotics and topical care and wrapping plus pain meds as needed. She will need PT eval for ambulation, since she has been mostly in bed this admission. Ordered. Pt says R 4th toe is also tender. Will re-consult MAC wound RN for eval and debridement of that ulcer. (3) Anemia Qualifiers: Anemia type: iron deficiency Assessment/Plan: Follow H/H intermittently, after transfusion last week. Pt on Fe replacement (5) Hypertension Qualifiers: Hypertension type: essential hypertension Qualified Code(s): I10 - Essential (primary) hypertension Assessment/Plan: Pt still has poorly controlled BP and HR. Will add Cardizem po, but depending on LVEF, higher B-tianna could be used and Cardizem stopped. Continue to monitor (6) Diabetes type 1, uncontrolled Qualifiers: Diabetes mellitus complication status: with unspecified complications Qualified Code(s): E10.8 - Type 1 diabetes mellitus with unspecified complications; E10.65 - Type 1 diabetes mellitus with hyperglycemia Assessment/Plan: Pt has low am glu and high evening glu. Will decrease pm Lantus. Will also change her 8 pm snack to 2 am, which is when she normally eats a snack at home. Will increase am Lantus for daytime high sugars. (7) Elevated LFTs Assessment/Plan: This pattern has been seen on previous admissions and is improved with a few days of bowel rest. The etiology may be gastroparesis plus pancreatic mass (which she was sent to [place] to eval earlier this year. No biopsy was done there however, and no diagnosis was ever established). Follow LFT labs intermittently. (8) Bipolar 1 disorder with moderate antelmo Assessment/Plan: Today the Pt is polite and not manic or agitated. Continue present meds and plan. - Current Meds Current Meds: Current Medications Generic Name Dose Route Start Last Admin Trade Name Freq PRN Reason Stop Dose Admin Acetaminophen 650 mg 01/23/17 12:53 02/01/17 07:57 Tylenol PO 650 mg Q4HR PRN Administration Pain or Fever > 38C (100.4F) Albuterol 2.5 mg 01/27/17 22:57 01/31/17 08:45 INH 2.5 mg RTQ4H PRN Administration Wheezing Alprazolam 1 mg 01/29/17 06:09 02/01/17 07:58 Xanax PO 1 mg BID PRN Administration Anxiety Amitriptyline HCl 50 mg 01/29/17 23:44 01/31/17 20:46 Elavil PO 50 mg QPM SYLVIA Administration Cilostazol 100 mg 01/26/17 19:00 02/01/17 11:44 Pletal PO 100 mg BID SYLVIA Administration Clonidine HCl 1 patch 01/25/17 08:00 02/01/17 07:55 [id number] TOP 1 patch Q7D SYLVIA Administration Docusate Sodium 250 - 500 mg 01/24/17 19:27 02/01/17 11:44 Colace 250mg Capsule PO Not Given DAILY SYLVIA Duloxetine HCl 40 mg 01/31/17 22:12 02/01/17 11:44 Cymbalta PO 40 mg DAILY SYLVIA Administration Enoxaparin Sodium 40 mg 01/23/17 09:00 02/01/17 11:45 Lovenox SUBQ 40 mg DAILY SYLVIA Administration Ferrous Sulfate 325 mg 01/26/17 19:00 02/01/17 07:55 Feosol PO 325 mg BIDWM SYLVIA Administration Gabapentin 300 mg 01/28/17 20:00 02/01/17 06:19 Neurontin PO 300 mg TID SYLVIA Administration Hydromorphone HCl 0.5 mg 01/31/17 22:12 02/01/17 11:46 Dilaudid Inj Syringe IVP 0.5 mg Q4H PRN Administration for pain >8/10 Piperacillin Sod/Tazobactam 100 mls @ 200 mls/hr 01/28/17 18:00 02/01/17 11: 59 Sod 3.375 gm/ Sodium Chloride IV 200 mls/hr Q6H SYLVIA Administration Insulin Aspart 5 unit 01/25/17 17:00 02/01/17 11:53 Novolog SUBQ 5 unit TIDWM SYLVIA Administration Protocol Insulin Aspart 3 - 11 unit 01/27/17 08:00 02/01/17 11:53 Novolog SUBQ 9 unit 0800,1200,1700,2100 SYLVIA Administration Protocol Ketorolac Tromethamine 15 mg 01/28/17 06:44 02/01/17 07:58 Toradol Inj IVP 02/02/17 06:43 15 mg Q6HR PRN Administration PAIN Lisinopril 10 mg 01/31/17 22:15 02/01/17 11:45 Zestril PO 10 mg DAILY SYLVIA Administration Magnesium Oxide 400 mg 01/27/17 09:00 02/01/17 07:57 Mag Ox PO 400 mg DAILYWM SYLVIA Administration Methocarbamol 1,000 mg 02/01/17 09:00 02/01/17 11:45 Robaxin PO 1,000 mg BID SYLVIA Administration Metoprolol Succinate 25 mg 02/01/17 08:00 02/01/17 07:57 Toprol Xl PO 25 mg DAILY SYLVIA Administration Multivitamins/Minerals 1 tab 01/26/17 13:00 02/01/17 07:57 Theragran M PO 1 tab DAILYWM SYLVIA Administration Nicotine 1 patch 01/23/17 21:00 01/31/17 10:07 Nicoderm TOP 1 patch HS SYLVIA Administration Nitroglycerin 0.4 mg 01/29/17 06:05 01/29/17 06:49 Nitrostat SL 0.4 mg Q5MIN PRN Administration Chest Pain Olanzapine 10 mg 01/31/17 22:00 02/01/17 12:02 Zyprexa Odt TL 10 mg Q4H PRN Administration Agitation Ondansetron HCl 4 mg 01/22/17 21:02 01/29/17 06:24 Zofran Inj IVP 4 mg Q6HR PRN Administration Nausea / Vomiting Oxycodone HCl 10 mg 01/31/17 22:12 02/01/17 06:19 Roxicodone PO 10 mg Q4HR PRN Administration PAIN Polyethylene Glycol 17 gm 01/23/17 09:00 02/01/17 11:45 Miralax PO Not Given DAILY SYLVIA Prochlorperazine Edisylate 10 mg 01/29/17 10:09 01/29/17 10:22 Compazine Inj IVP 10 mg Q4HR PRN Administration Nausea / Vomiting Saccharomyces Boulardii 250 mg 01/22/17 23:45 02/01/17 07:57 Florastor PO 250 mg BIDWM SYLVIA Administration Senna 8.6 - 17.2 mg 01/25/17 09:00 02/01/17 11:46 Senokot PO Not Given DAILY SYLVIA Sodium Chloride 10 ml 01/22/17 21:02 02/01/17 04:27 Normal Saline Flush 0.9% IVP 10 ml PRN PRN Administration NEEDED PER PROVIDER ORDERS Sodium Chloride 10 ml 01/22/17 22:00 02/01/17 11:55 Normal Saline Flush 0.9% IVP 10 ml Q8HR SYLVIA Administration Witch Shantel/Glycerin 1 each 01/29/17 10:07 01/29/17 10:22 Tucks TOP 1 each PRN PRN Administration ITCHING - Lab Result Fish Bone Diagrams: 01/28/17 08:02 02/01/17 04:49 - Additional Planning My Orders: My Active Orders 02/01/17 08:00 Metoprolol Succinate [Toprol Xl] 25 mg PO DAILY 02/01/17 21:00 Insulin Glargine [Lantus Solostar] 40 unit SUBQ QPM 02/02/17 09:00 Insulin Glargine [Lantus Solostar] 50 unit SUBQ DAILY Subjective - Subjective Patient Reports: No Complaints Nursing Reports: No Complaints Objective Vital Signs: Vital Signs - 24 hr 01/31/17 01/31/17 01/31/17 15:36 19:30 20:52 Temperature 36.5 C 36.6 C Heart Rate 89 Heart Rate [ 130 H 134 H Brachial] Respiratory 18 18 16 Rate Blood Pressure [Left Brachial artery] Blood Pressure 151/102 H 164/91 H [Right Brachial artery] O2 Saturation 91 L 89 L 02/01/17 02/01/17 02/01/17 00:00 00:06 05:00 Temperature 36.7 C 36.9 C Heart Rate Heart Rate [ 132 H 125 H Brachial] Respiratory 16 16 Rate Blood Pressure 146/98 H 159/96 H [Left Brachial artery] Blood Pressure [Right Brachial artery] O2 Saturation 94 94 92 02/01/17 02/01/17 07:52 09:00 Temperature 36.8 C Heart Rate 112 H Heart Rate [ 108 H Brachial] Respiratory 18 18 Rate Blood Pressure 154/100 H [Left Brachial artery] Blood Pressure [Right Brachial artery] O2 Saturation 95 Oxygen O2 Source Nasal cannula I&O (Last 24 Hrs): Intake and Output Totals x24h 01/30/17 01/31/17 02/01/17 23:59 23:59 23:59 Intake Total 4526.667 6320 1900 Output Total 1000 1000 Balance 3526.667 6320 900 General: Alert HEENT: Mucous membr. moist/pink Neck: Supple Cardiovascular: Regular rate Respiratory: No respiratory distress Abdomen: Normal bowel sounds, Soft Extremities: No edema, Other (clean wrapped wound) - Results Results: Laboratory Results WBC 6.2 x10^3/uL (4.8-10.8) 01/28/17 08:02 RBC 3.65 10^6/uL (4.20-5.40) L 01/28/17 08:02 Hgb 9.0 g/dL (12.0-16.0) L 01/28/17 08:02 Hct 27.6 % (37.0-47.0) L 01/28/17 08:02 MCV 75.7 fL (81.0-99.0) L 01/28/17 08:02 MCH 24.6 pg (27.0-31.0) L 01/28/17 08:02 MCHC 32.5 g/dL (32.0-36.0) 01/28/17 08:02 RDW 16.9 % (12.0-15.0) H 01/28/17 08:02 Plt Count 196 10^3/uL (130-450) 01/28/17 08:02 MPV 8.6 fL (7.9-10.8) 01/28/17 08:02 Neut # Not Reportable 01/28/17 08:02 Lymph # Not Reportable 01/28/17 08:02 [place] # Not Reportable 01/28/17 08:02 Eos # Not Reportable 01/28/17 08:02 Baso # Not Reportable 01/28/17 08:02 Absolute Nucleated RBC Not Reportable 01/28/17 08:02 Total Counted 100 01/28/17 08:02 Band Neuts % (Manual) 1 % (0-10) 01/28/17 08:02 Reactive Lymphs % (Man) 2 % 01/28/17 08:02 Abnorm Lymph % (Manual) 0 % 01/28/17 08:02 Metamyelocytes % 1 % (-0) H 01/28/17 08:02 Nucleated RBC % Not Reportable 01/28/17 08:02 Neutrophils # (Manual) 4.0 10^3/uL (1.5-6.6) 01/28/17 08:02 Lymphocytes # (Manual) 1.4 10^3/uL (1.5-3.5) L 01/28/17 08:02 Monocytes # (Manual) 0.4 10^3/uL (0.0-1.0) 01/28/17 08:02 Eosinophils # (Manual) 0.3 10^3/uL (0-0.7) 01/28/17 08:02 Basophils # (Manual) 0.1 10^3/uL (0-0.1) 01/28/17 08:02 Nucleated RBCs 2 % 01/28/17 08:02 Differential Comment MANUAL DIFFERENTIAL 01/28/17 08:02 RBC Morph Micro Appear 1+ OVALOCYTES (NORMAL) 2+ HYPOCHROMASIA (NORMAL) 2+ MICROCYTOSIS (NORMAL) 01/28/17 08:02 RBC Morph Micro Appear 1+ OVALOCYTES (NORMAL) 2+ HYPOCHROMASIA (NORMAL) 2+ MICROCYTOSIS (NORMAL) 01/28/17 08:02 RBC Morph Micro Appear 1+ OVALOCYTES (NORMAL) 2+ HYPOCHROMASIA (NORMAL) 2+ MICROCYTOSIS (NORMAL) 01/28/17 08:02 VBG pH 7.402 (7.31-7.41) 01/29/17 12:01 VBG pCO2 42.0 mmHg (41-51) 01/29/17 12:01 VBG pO2 71.2 mmHg (25-47) H 01/29/17 12:01 VBG HCO3 25.5 mmol/L (23-28) 01/29/17 12:01 VBG Total CO2 26.8 mmol/L (24-29) 01/29/17 12:01 VBG O2 Saturation 93.9 % (60-80) H 01/29/17 12:01 VBG Base Excess 0.7 mmol/L (-2 - +2) 01/29/17 12:01 Sodium 137 mmol/L (135-145) 02/01/17 04:49 Potassium 4.1 mmol/L (3.5-5.0) 02/01/17 04:49 Chloride 104 mmol/L (101-111) 02/01/17 04:49 Carbon Dioxide 25 mmol/L (21-32) 02/01/17 04:49 Anion Gap 8.0 (6-13) 02/01/17 04:49 BUN 21 mg/dL (6-20) H 02/01/17 04:49 Creatinine 0.4 mg/dL (0.4-1.0) 02/01/17 04:49 Estimated GFR (MDRD) 182 (>89) 02/01/17 04:49 Glucose 134 mg/dL (70-100) H 02/01/17 04:49 POC Whole Bld Glucose 293 mg/dL (70 - 100) H 02/01/17 11:25 Glycated Hemoglobin 13.1 % (4.6-6.2) H 01/22/17 18:57 Estim Average Glucose 329 (70-100) H 01/22/17 18:57 Calcium 8.7 mg/dL (8.5-10.3) 02/01/17 04:49 Phosphorus 2.4 mg/dL (2.5-4.6) L 01/22/17 21:16 Magnesium 1.9 mg/dL (1.7-2.8) 01/28/17 08:02 Iron < 6 ug/dL (28-170) L 01/26/17 13:12 TIBC 272 ug/dL (250-450) 01/26/17 13:12 % Saturation 2 % (20-50) L 01/26/17 13:12 Transferrin 194 mg/dL (192-382) 01/26/17 13:12 Total Bilirubin 0.2 mg/dL (0.2-1.0) 02/01/17 04:49 AST 25 IU/L (10-42) 02/01/17 04:49 ALT 97 IU/L (10-60) H 02/01/17 04:49 Alkaline Phosphatase 445 IU/L (42-121) H 02/01/17 04:49 Troponin I < 0.04 ng/mL (<0.49) 01/22/17 18:57 C-Reactive Protein 1.4 mg/dL (0-1.0) H 01/23/17 19:19 Total Protein 6.5 g/dL (6.7-8.2) L 02/01/17 04:49 Albumin 2.4 g/dL (3.2-5.5) L 02/01/17 04:49 Globulin 4.1 g/dL (2.1-4.2) 02/01/17 04:49 Albumin/Globulin Ratio 0.6 (1.0-2.2) L 02/01/17 04:49 Amylase 26 U/L (28-100) L 01/29/17 12:01 Lipase 17 U/L (22-51) L 01/29/17 12:01 Vitamin B12 247 pg/mL (180-914) 01/26/17 13:12 Folate 6.29 ng/mL (5.90 - >24.8) 01/26/17 13:12 Serum HCG, Qual NEGATIVE 01/22/17 18:57 Cortisol AM Sample 5.3 ug/dL 01/30/17 08:38 Urine Color YELLOW 01/29/17 14:00 Urine Clarity CLEAR (CLEAR) 01/29/17 14:00 Urine pH 6.5 PH (5.0-7.5) 01/29/17 14:00 Ur Specific [place] 1.010 (1.002-1.030) 01/29/17 14:00 Urine Protein NEGATIVE mg/dL (NEGATIVE) 01/29/17 14:00 Urine Glucose (UA) NEGATIVE mg/dL (NEGATIVE) 01/29/17 14:00 Urine Ketones NEGATIVE mg/dL (NEGATIVE) 01/29/17 14:00 Urine Occult Blood NEGATIVE (NEGATIVE) 01/29/17 14:00 Urine Nitrite NEGATIVE (NEGATIVE) 01/29/17 14:00 Urine Bilirubin NEGATIVE (NEGATIVE) 01/29/17 14:00 Urine Urobilinogen 0.2 (NORMAL) E.U./dL (NORMAL) 01/29/17 14:00 Ur Leukocyte Esterase NEGATIVE (NEGATIVE) 01/29/17 14:00 Ur Microscopic Review NOT INDICATED 01/22/17 20:40 Urine Culture Comments NOT INDICATED 01/22/17 20:40 Urine Opiates Screen POSITIVE (NEGATIVE) H 01/30/17 09:50 Ur Oxycodone Screen POSITIVE (NEGATIVE) H 01/30/17 09:50 Urine Methadone Screen NEGATIVE (NEGATIVE) 01/30/17 09:50 Ur Propoxyphene Screen NEGATIVE (NEGATIVE) 01/30/17 09:50 Ur Barbiturates Screen NEGATIVE (NEGATIVE) 01/30/17 09:50 Ur Tricyclics Screen NEGATIVE (NEGATIVE) 01/30/17 09:50 Ur Phencyclidine Scrn NEGATIVE (NEGATIVE) 01/30/17 09:50 Ur Amphetamine Screen NEGATIVE (NEGATIVE) 01/30/17 09:50 U Methamphetamines Scrn NEGATIVE (NEGATIVE) 01/30/17 09:50 U Benzodiazepines Scrn POSITIVE (NEGATIVE) H 01/30/17 09:50 Urine Cocaine Screen NEGATIVE (NEGATIVE) 01/30/17 09:50 U Cannabinoids Screen NEGATIVE (NEGATIVE) 01/30/17 09:50 Serum Ketones LARGE (NEGATIVE) H 01/22/17 18:57 Hep Bs Antigen NON-REACTIVE (NON-REACTIVE) 01/29/17 08:38 Hep Bs Immunity Index <5 mIU/mL (> OR = 10) L 01/29/17 08:38 Hep B Core Total Ab NON-REACTIVE (NON-REACTIVE) 01/29/17 08:38 Hepatitis C Antibody NON-REACTIVE (NON-REACTIVE) 01/29/17 08:38 Hep C Ab Signal/Cutoff 0.00 (<1.00) 01/29/17 08:38 Influenza A (Rapid) Negative (Negative) 01/25/17 22:33 Influenza B (Rapid) Negative (Negative) 01/25/17 22:33 Influenza Types A,B Ag - 01/25/17 22:33 Blood Type O POSITIVE 01/27/17 17:47 Antibody Screen NEGATIVE 01/27/17 17:47 Crossmatch IS Only See Detail 01/27/17 17:47 - Procedures Procedures: Procedures INSERT INFUSION DEV IN R INT JUGULAR VEIN, PERC (04/21/16) INSERTION OF INFUSION DEV INTO SUP VENA CAVA, PERC APPROACH (12/21/16) INSERTION OF INFUSION DEVICE INTO R ATRIUM, PERC APPROACH (10/12/16) TRANSFUSE NONAUT RED BLOOD CELLS IN PERIPH VEIN, PERC (04/21/16) ULTRASONOGRAPHY OF RIGHT JUGULAR VEINS, GUIDANCE (04/21/16)
[2017-02-01] MEDS: diltiaZEM CD 120 MG CAPSULE PO SCH (13:52)
[2017-02-01] MEDS: ALBUTEROL NEB 2.5 MG/3 ML INH PRN (18:03)
[2017-02-01] MEDS: NICOTINE 14 MG PATCH TOP SCH (20:59)
[2017-02-01] MEDS ORDERED: MELOXICAM 7.5 MG TABLET PO PRN (21:16)
[2017-02-01] MEDS: INSULIN GLARGINE 300 UNIT/3 ML PEN SUBQ SCH (21:27)
[2017-02-01] MEDS: AMITRIPTYLINE 25 MG TABLET PO SCH (21:28)
[2017-02-01] MEDS: PIOGLITAZONE 15 MG TABLET PO SCH (22:24)
[2017-02-01] MEDS: ALPRAZolam 0.25 MG TABLET PO SCH (22:25)
[2017-02-02] MEDS: PIPERACILLIN/TAZOBACTAM 3.375 GM in SODIUM CHLORIDE 0.9% MINIBAG 100 ML IV SCH ×4 (00:09→18:35)
[2017-02-02] MEDS: HYDROmorphone 1 MG/ML SYRINGE IVP PRN ×2 (00:28→05:54)
[2017-02-02] MEDS: SODIUM CHLORIDE FLUSH 0.9% 10 ML SYRINGE IVP PRN (00:39)
[2017-02-02] MEDS: oxyCODONE 5 MG TABLET PO PRN ×4 (02:09→20:32)
[2017-02-02] MEDS: GABAPENTIN 300 MG CAPSULE PO SCH ×3 (05:54→20:45)
[2017-02-02] MEDS: ALPRAZolam 0.25 MG TABLET PO SCH ×3 (05:54→20:44)
[2017-02-02] MEDS: SODIUM CHLORIDE FLUSH 0.9% 10 ML SYRINGE IVP SCH ×3 (06:26→20:45)
[2017-02-02] MEDS: DOCUSATE SODIUM 250 MG CAPSULE PO SCH (07:30)
[2017-02-02] MEDS: SENNA 8.6 MG TABLET PO SCH (07:30)
[2017-02-02] MEDS: ACETAMINOPHEN 325 MG TABLET PO PRN ×2 (08:26→12:05)
[2017-02-02] MEDS: METHOCARBAMOL 500 MG TABLET PO SCH ×2 (08:26→20:43)
[2017-02-02] MEDS: diltiaZEM CD 120 MG CAPSULE PO SCH (08:26)
[2017-02-02] MEDS: LISINOPRIL 5 MG TABLET PO SCH (08:27)
[2017-02-02] MEDS: MULTIVITAMIN W/MINERALS TABLET PO SCH (08:27)
[2017-02-02] MEDS: METOPROLOL SUCCINATE 25 MG TABLET PO SCH ×2 (08:27→20:45)
[2017-02-02] MEDS: CILOSTAZOL 100 MG TABLET PO SCH ×2 (08:27→20:43)
[2017-02-02] MEDS: DULoxetine 20 MG CAPSULE PO SCH (08:27)
[2017-02-02] MEDS: SACCHAROMYCES BOULARDII 250 MG CAPSULE PO SCH ×2 (08:28→17:04)
[2017-02-02] MEDS: FERROUS SULFATE 325 MG TABLET PO SCH ×2 (08:28→17:04)
[2017-02-02] MEDS: MAGNESIUM OXIDE 400 MG TABLET PO SCH (08:28)
[2017-02-02] MEDS: POLYETHYLENE GLYCOL 3350 17 GM PACKET PO SCH (08:28)
[2017-02-02] MEDS: ENOXAPARIN 40 MG/0.4 ML SYRINGE SUBQ SCH (08:28)
[2017-02-02] MEDS: PIOGLITAZONE 15 MG TABLET PO SCH (08:34)
[2017-02-02] MEDS: INSULIN ASPART 300 UNIT/3 ML PEN SUBQ SCH ×7 (08:35→22:34)
[2017-02-02] MEDS: INSULIN GLARGINE 300 UNIT/3 ML PEN SUBQ SCH ×2 (08:36→22:33)
[2017-02-02] MEDS ORDERED: INSULIN GLARGINE 300 UNIT/3 ML PEN SUBQ SCH (09:00)
[2017-02-02] MEDS: SODIUM CHLORIDE INHALATION 3 ML NEB INH PRN ×2 (09:48→17:50)
[2017-02-02] MEDS: LEVALBUTEROL 1.25 MG/0.5 ML NEB INH PRN ×2 (09:48→17:50)
--- NOTE | 2017-02-02 11:43 | PROVIDER PROGRESS NOTE ---
Subjective - Prog Note Date Prog Note Date: 02/02/17 Prog Note Time: 11:41 - Subjective Pt reports feeling: Worse Subjective: she is crying because her toe hurts and she wants her dilaudid IV back to q2h prn and oxycodone to q4hr prn. Diabetes is controlled Wound RN consult ordered to see if toe needs debridement but she is on vacation for a week so will not be in no abd pain., anxiety controlled except when she can't get the pain under control. hypoxia stable. Current Medications - Current Medications Current Medications: Active Medications Acetaminophen (Tylenol) 650 mg PO Q4HR PRN PRN Reason: Pain or Fever > 38C (100.4F) Last Admin: 02/02/17 08:26 Dose: 650 mg Alprazolam (Xanax) 1 mg PO TID [facility] Last Admin: 02/02/17 05:54 Dose: 1 mg Amitriptyline HCl (Elavil) 50 mg PO QPM [facility] Last Admin: 02/01/17 21:28 Dose: 50 mg Cilostazol (Pletal) 100 mg PO BID [facility] Last Admin: 02/02/17 08:27 Dose: 100 mg Clonidine HCl ([id number]-[id number]) 1 patch TOP Q7D [facility] Last Admin: 02/01/17 07:55 Dose: 1 patch Diltiazem HCl (Cardizem Cd) 120 mg PO DAILY [facility] Last Admin: 02/02/17 08:26 Dose: 120 mg Docusate Sodium (Colace 250mg Capsule) 250 - 500 mg PO DAILY [facility] Last Admin: 02/02/17 07:30 Dose: Not Given Duloxetine HCl (Cymbalta) 40 mg PO DAILY [facility] Last Admin: 02/02/17 08:27 Dose: 40 mg Enoxaparin Sodium (Lovenox) 40 mg SUBQ DAILY [facility] Last Admin: 02/02/17 08:28 Dose: 40 mg Ferrous Sulfate (Feosol) 325 mg PO BIDWM [facility] Last Admin: 02/02/17 08:28 Dose: 325 mg Gabapentin (Neurontin) 300 mg PO TID [facility] Last Admin: 02/02/17 05:54 Dose: 300 mg Piperacillin Sod/Tazobactam (Sod 3.375 gm/ Sodium Chloride) 100 mls @ 200 mls/ hr IV Q6H [facility] Last Infusion: 02/02/17 06:25 Dose: Infused Insulin Aspart (Novolog) 3 - 11 unit SUBQ 0800,1200,1700,2100 [facility] PRN Reason: Protocol Last Admin: 02/02/17 08:35 Dose: 3 unit Insulin Aspart (Novolog) 10 unit SUBQ TIDWM [facility] PRN Reason: Protocol Insulin Glargine (Lantus Solostar) 40 unit SUBQ QPM [facility] Last Admin: 02/01/17 21:27 Dose: 40 unit Insulin Glargine (Lantus Solostar) 60 unit SUBQ DAILY [facility] Last Admin: 02/02/17 08:36 Dose: 60 unit Levalbuterol HCl (Xopenex) 1.25 mg INH RTQ4H PRN PRN Reason: Wheezing Last Admin: 02/02/17 09:48 Dose: 1.25 mg Lisinopril (Zestril) 10 mg PO DAILY [facility] Last Admin: 02/02/17 08:27 Dose: 10 mg Magnesium Oxide (Mag Ox) 400 mg PO DAILYWM [facility] Last Admin: 02/02/17 08:28 Dose: 400 mg Meloxicam (Mobic) 7.5 mg PO BID PRN PRN Reason: pain >6/10 Last Admin: 02/02/17 10:16 Dose: 7.5 mg Methocarbamol (Robaxin) 1,000 mg PO BID [facility] Last Admin: 02/02/17 08:26 Dose: 1,000 mg Metoprolol Succinate (Toprol Xl) 25 mg PO BID [facility] Last Admin: 02/02/17 08:27 Dose: 25 mg Multivitamins/Minerals (Theragran M) 1 tab PO DAILYWM [facility] Last Admin: 02/02/17 08:27 Dose: 1 tab Nicotine (Nicoderm) 1 patch TOP HS [facility] Last Admin: 02/01/17 20:59 Dose: 1 patch Nitroglycerin (Nitrostat) 0.4 mg SL Q5MIN PRN PRN Reason: Chest Pain Last Admin: 01/29/17 06:49 Dose: 0.4 mg Olanzapine (Zyprexa Odt) 10 mg TL Q4H PRN PRN Reason: Agitation Last Admin: 02/01/17 21:16 Dose: 10 mg Ondansetron HCl (Zofran Inj) 4 mg IVP Q6HR PRN PRN Reason: Nausea / Vomiting Last Admin: 01/29/17 06:24 Dose: 4 mg Oxycodone HCl (Roxicodone) 10 mg PO Q6H PRN PRN Reason: PAIN Pioglitazone HCl (Actos) 15 mg PO DAILY [facility] Last Admin: 02/02/17 08:34 Dose: 15 mg Polyethylene Glycol (Miralax) 17 gm PO DAILY [facility] Last Admin: 02/02/17 08:28 Dose: Not Given Prochlorperazine Edisylate (Compazine Inj) 10 mg IVP Q4HR PRN PRN Reason: Nausea / Vomiting Last Admin: 01/29/17 10:22 Dose: 10 mg Saccharomyces Boulardii (Florastor) 250 mg PO BIDWM [facility] Last Admin: 02/02/17 08:28 Dose: 250 mg Senna (Senokot) 8.6 - 17.2 mg PO DAILY [facility] Last Admin: 02/02/17 07:30 Dose: Not Given Sodium Chloride (Normal Saline Flush 0.9%) 10 ml IVP PRN PRN PRN Reason: NEEDED PER PROVIDER ORDERS Last Admin: 02/02/17 00:39 Dose: 10 ml Sodium Chloride (Normal Saline Flush 0.9%) 10 ml IVP Q8HR [facility] Last Admin: 02/02/17 06:26 Dose: 10 ml Sodium Chloride (Normal Saline) 3 ml INH PRN PRN PRN Reason: Levalbuterol treatment Last Admin: 02/02/17 09:48 Dose: 3 ml Witch Shantel/Glycerin (Tucks) 1 each TOP PRN PRN PRN Reason: ITCHING Last Admin: 01/29/17 10:22 Dose: 1 each Insulin Aspart [NovoLOG] 5 unit SUBQ TIDWM 01/22/17 Objective - Vital Signs/Intake & Output Vital Signs: Vital Signs x48h Temp Pulse Pulse Resp BP Pulse Ox 02/02/17 09:48 109 H 14 02/02/17 04:43 36.3 C L 109 H 20 126/82 H 91 L Intake & Output: Intake & Output 01/30/17 01/31/17 02/01/17 02/02/17 23:59 23:59 23:59 23:59 Intake Total 4526.667 6320 6480 1380 Output Total 1000 6550 2200 Balance 3526.667 6320 -70 -820 - Objective General Appearance: positive: Alert, Moderate distress (with emotion. crying) Eyes Bilateral: positive: PERRL ENT: positive: No signs of dehydration, Other (poor dentition) Neck: positive: No JVD. negative: Stiff neck, Carotid bruit, Swelling/bruising Respiratory: positive: Chest non-tender. negative: Wheezes, Rales, Rhonchi Cardiovascular: positive: Regular rate & rhythm (hard knocking S1 and S2,), Tachycardia. negative: Gallop/S4, Friction rub Abdomen: positive: Non-tender, Nml bowel sounds. negative: Guarding, Rebound, Hepatomegaly Skin: positive: Warm, Dry Extremities: positive: Non-tender, Full ROM, Other (left 4th tip of toe with dried, healing ulcer. no redness or heat. just very very painful with touch. right great medial tip of toe and right central tip of 4th toe with same type of healing, dry ulcer. brown. again no redness, no swelling, no heat on touch. nail beds in both coming off with ?onychomycosis). negative: Calf tenderness Neurologic/Psychiatric: positive: Oriented x3, CN's nml (2-12), Motor nml. negative: Mood/affect nml - Lab Results Fish Bones: 01/28/17 08:02 02/01/17 04:49 Other Labs: Lab Results x24hrs 02/02/17 02/01/17 02/01/17 Range/Units 08:06 20:41 16:30 POC Whole Bld Glucose 149 H 321 H 349 H (70 - 100) mg/dL B-Natriuretic Peptide (5-100) pg/mL Blood Type Antibody Screen Crossmatch IS Only 02/01/17 01/27/17 Range/Units 04:49 17:47 POC Whole Bld Glucose (70 - 100) mg/dL B-Natriuretic Peptide 78 (5-100) pg/mL Blood Type O POSITIVE Antibody Screen NEGATIVE Crossmatch IS Only See Detail Assessment/Plan - Problem List (1) Pulmonary HTN Impression: we were looking for causes of her hypoxia. She did have small amount of atelectasis on CXR 01/22 and 01/27 and CTA was neg for PE or pneumonia 01/25. ECHO was repeated 02/02 and she has much worse Pulm HTN than the last ECHO . Also w worse valve disease. LAE went from 36 to 44. JANNA went from 12 to 20. Most of all RVSP at rest went fro 26 to 84 mmHg. Overall prognosis is poor in the next 5 years. [place] and be complaint with treatment. She may need O2 in the outpatient setting. (2) Atherosclerotic PVD with ulceration Impression: she has had ischemic toes off and on for >1 year and amanda cyanosis present off and on. She is homeless and would leave AMA or not follow thru with a PCP to get a referral to Vascular surgeon. this admission has had ulcerated tips of right and left toes. Ortho saw her and doesn't feel she has osteo. MRI was equivocal for osteo. Ortho felt if we put her on oral abx and she got better with CRP/ESR going down, then nothing further needed to be done. BC she had rising WBC and a fever, she was resumed on zosyn 01/28. Today she is crying bc she wants to return to IV opiates as well as high dose oral oxycodone. She is ambulating in room and to bathroom. No limping. no grimacing. External measures of pain with wincing, grimacing, as witnessed by RN are not present. She does have a hx of drug seeking opiates and using recreational metamphetamines. Other noticeable sign is her abrupt shift from crying to speaking normally if I distract her and ask about other things like her daughter, court mandated followthru. If she gets asked a question that has nothing to do about pain or her toes, she stops crying instantly and in a normal tone of voice discusses the topic brought forward. If I ask about the pain in the middle of that distraction, she starts crying again. On exam, her toes are better than when I saw her before. They had some redness and heat before. Today, just dried ulcers. no redness or swelling or heat. Plan: Will bring her back down to oxycodone q6 prn and start NSAID and Tylenol on fixed schedule. Right now they are prn. I did start naprosyn but she is already on meloxicam. no debridement for now DC physical therapy since she is ambulating in the room. Qualifiers: Peripheral atherosclerosis location: lower extremity Peripheral atherosclerosis artery type: [place] artery Lower extremity ulceration location : other part of foot Laterality: left Qualified Code(s): I70.245 - Atherosclerosis of [place] arteries of left leg with ulceration of other part of foot (3) Anxiety Impression: on alprazolam cymbalta elavil (4) Hypertension Impression: controlled for now was on diltiazem , toprol and clonidine. Lisinopril added 01/31/17. Qualifiers: Hypertension type: essential hypertension Qualified Code(s): I10 - Essential (primary) hypertension (5) Uncontrolled type 1 diabetes mellitus with complication Impression: on lantus 60 in am, 40 in pm with 5 fixed dose before meals. Laboratory Tests 08/15/14 01/31/17 01/31/17 11:19 15:54 17:01 POC Whole Bld Glucose 305 H 285 H CCP IgG/IgA Ab 24 H 01/31/17 02/01/17 02/01/17 20:46 11:25 16:30 POC Whole Bld Glucose 345 H 293 H 349 H CCP IgG/IgA Ab 02/01/17 20:41 POC Whole Bld Glucose 321 H CCP IgG/IgA Ab will increase fixed dose insulin to 10 units sq ac tid today. (6) Vaginitis due to Ryann Impression: completed Monistat on 01/31. (7) Nausea and vomiting Impression: she has had splenomegaly and elevated LFT's before. Serology as below. will follow thru on pending labs. Laboratory Tests 08/22/16 09/09/16 09/10/16 16:15 11:19 05:55 EBV Capsid Ag IgG Ab 435.00 H EBV Capsid Ag IgM Ab <36.00 Hep Bs Antigen Hep Bs Immunity Index Hep B Core Total Ab Hepatitis C Antibody Hep C Ab Signal/Cutoff HCV RNA Genotype HCV RNA (PCR) IUs/ml HCV RNA PCR log IUs/ml Hepatitis C RNA Comment HIV 1&2 Ag/Ab, 4th Gen NON-REACTIVE NON-REACTIVE Influenza A (Rapid) Influenza B (Rapid) 01/25/17 01/29/17 01/29/17 22:33 08:38 08:38 EBV Capsid Ag IgG Ab EBV Capsid Ag IgM Ab Hep Bs Antigen Hep Bs Immunity Index <5 L Hep B Core Total Ab NON-REACTIVE Hepatitis C Antibody Hep C Ab Signal/Cutoff HCV RNA Genotype Pending HCV RNA (PCR) IUs/ml Pending HCV RNA PCR log IUs/ml Pending Hepatitis C RNA Comment Pending HIV 1&2 Ag/Ab, 4th Gen Influenza A (Rapid) Negative Influenza B (Rapid) Negative 01/29/17 01/29/17 08:38 08:38 EBV Capsid Ag IgG Ab EBV Capsid Ag IgM Ab Hep Bs Antigen NON-REACTIVE Hep Bs Immunity Index Hep B Core Total Ab Hepatitis C Antibody NON-REACTIVE Hep C Ab Signal/Cutoff 0.00 HCV RNA Genotype HCV RNA (PCR) IUs/ml HCV RNA PCR log IUs/ml Hepatitis C RNA Comment HIV 1&2 Ag/Ab, 4th Gen Influenza A (Rapid) Influenza B (Rapid) Qualifiers: Vomiting type: unspecified Vomiting Intractability: non-intractable Qualified Code(s): R11.2 - Nausea with vomiting, unspecified (8) Tachycardia Impression: she has had this as a problem since moving here from [place] ~3 years ago.She is on toprol and cardizem. RT worried that albuterol is making this worse, so changed to xopenex. (9) Tobacco abuse disorder Impression: on nicotine patch.
[2017-02-02] MEDS ORDERED: NAPROXEN 250 MG TABLET PO SCH (12:02)
[2017-02-02] MEDS: ACETAMINOPHEN 325 MG TABLET PO SCH ×2 (12:12→17:04)
[2017-02-02 13:56] LABS: ANA SCREEN NEGATIVE (NEGATIVE)
[2017-02-02] MEDS: miSOPROStol 100 MCG TABLET PO SCH ×3 (14:20→22:43)
[2017-02-02] MEDS: NICOTINE 14 MG PATCH TOP SCH (20:43)
[2017-02-02] MEDS: AMITRIPTYLINE 25 MG TABLET PO SCH (20:43)
[2017-02-02] MEDS: MELOXICAM 7.5 MG TABLET PO SCH (20:45)
[2017-02-03 00:06] LABS: HEPATITIS C VIRAL RNA GENOTYPE NOT DETECTED
[2017-02-03] MEDS: PIPERACILLIN/TAZOBACTAM 3.375 GM in SODIUM CHLORIDE 0.9% MINIBAG 100 ML IV SCH ×3 (00:15→11:54)
[2017-02-03] MEDS: ACETAMINOPHEN 325 MG TABLET PO SCH ×3 (00:16→11:54)
[2017-02-03] MEDS: SODIUM CHLORIDE FLUSH 0.9% 10 ML SYRINGE IVP PRN (00:17)
[2017-02-03] MEDS: oxyCODONE 5 MG TABLET PO PRN ×3 (04:05→13:46)
[2017-02-03 06:43] VITALS: BP 108/66
[2017-02-03] MEDS: SODIUM CHLORIDE FLUSH 0.9% 10 ML SYRINGE IVP SCH ×2 (06:52→13:46)
[2017-02-03] MEDS: GABAPENTIN 300 MG CAPSULE PO SCH ×2 (06:53→13:46)
[2017-02-03] MEDS: ALPRAZolam 0.25 MG TABLET PO SCH ×2 (06:56→13:46)
[2017-02-03] MEDS: LEVALBUTEROL 1.25 MG/0.5 ML NEB INH PRN (07:39)
[2017-02-03] MEDS: SODIUM CHLORIDE INHALATION 3 ML NEB INH PRN (07:39)
--- NOTE | 2017-02-03 08:06 | PROVIDER PROGRESS NOTE ---
Subjective - Prog Note Date Prog Note Date: 02/03/17 Prog Note Time: 08:06 - Subjective Subjective: no change no crying this am she is negotiating her meal plan with nutrition services. Current Medications - Current Medications Current Medications: Active Medications Acetaminophen (Tylenol) 650 mg PO Q6HR [facility] Last Admin: 02/03/17 06:52 Dose: 650 mg Alprazolam (Xanax) 1 mg PO TID [facility] Last Admin: 02/03/17 06:56 Dose: 1 mg Amitriptyline HCl (Elavil) 50 mg PO QPM [facility] Last Admin: 02/02/17 20:43 Dose: 50 mg Cilostazol (Pletal) 100 mg PO BID [facility] Last Admin: 02/02/17 20:43 Dose: 100 mg Clonidine HCl (Mqtzxhpi-Ied-1) 1 patch TOP Q7D [facility] Last Admin: 02/01/17 07:55 Dose: 1 patch Diltiazem HCl (Cardizem Cd) 120 mg PO DAILY [facility] Last Admin: 02/02/17 08:26 Dose: 120 mg Docusate Sodium (Colace 250mg Capsule) 250 - 500 mg PO DAILY [facility] Last Admin: 02/02/17 07:30 Dose: Not Given Duloxetine HCl (Cymbalta) 40 mg PO DAILY [facility] Last Admin: 02/02/17 08:27 Dose: 40 mg Enoxaparin Sodium (Lovenox) 40 mg SUBQ DAILY [facility] Last Admin: 02/02/17 08:28 Dose: 40 mg Ferrous Sulfate (Feosol) 325 mg PO BIDWM [facility] Last Admin: 02/02/17 17:04 Dose: 325 mg Gabapentin (Neurontin) 300 mg PO TID [facility] Last Admin: 02/03/17 06:53 Dose: 300 mg Piperacillin Sod/Tazobactam (Sod 3.375 gm/ Sodium Chloride) 100 mls @ 200 mls/ hr IV Q6H [facility] Last Infusion: 02/03/17 07:58 Dose: Infused Insulin Aspart (Novolog) 3 - 11 unit SUBQ 0800,1200,1700,2100 [facility] PRN Reason: Protocol Last Admin: 02/02/17 22:34 Dose: 7 unit Insulin Aspart (Novolog) 10 unit SUBQ TIDWM [facility] PRN Reason: Protocol Last Admin: 02/02/17 17:03 Dose: 10 unit Insulin Glargine (Lantus Solostar) 40 unit SUBQ QPM [facility] Last Admin: 02/02/17 22:33 Dose: 40 unit Insulin Glargine (Lantus Solostar) 60 unit SUBQ DAILY [facility] Last Admin: 02/02/17 08:36 Dose: 60 unit Levalbuterol HCl (Xopenex) 1.25 mg INH RTQ4H PRN PRN Reason: Wheezing Last Admin: 02/03/17 07:39 Dose: 1.25 mg Lisinopril (Zestril) 10 mg PO DAILY [facility] Last Admin: 02/02/17 08:27 Dose: 10 mg Magnesium Oxide (Mag Ox) 400 mg PO DAILYWM [facility] Last Admin: 02/02/17 08:28 Dose: 400 mg Meloxicam (Mobic) 7.5 mg PO BID [facility] Last Admin: 02/02/17 20:45 Dose: 7.5 mg Methocarbamol (Robaxin) 1,000 mg PO BID [facility] Last Admin: 02/02/17 20:43 Dose: 1,000 mg Metoprolol Succinate (Toprol Xl) 25 mg PO BID [facility] Last Admin: 02/02/17 20:45 Dose: 25 mg Misoprostol (Cytotec) 100 mcg PO QID [facility] Last Admin: 02/02/17 22:43 Dose: 100 mcg Multivitamins/Minerals (Theragran M) 1 tab PO DAILYWM [facility] Last Admin: 02/02/17 08:27 Dose: 1 tab Nicotine (Nicoderm) 1 patch TOP [facility] Last Admin: 02/02/17 20:43 Dose: 1 patch Nitroglycerin (Nitrostat) 0.4 mg SL Q5MIN PRN PRN Reason: Chest Pain Last Admin: 01/29/17 06:49 Dose: 0.4 mg Olanzapine (Zyprexa Odt) 10 mg TL Q4H PRN PRN Reason: Agitation Last Admin: 02/01/17 21:16 Dose: 10 mg Ondansetron HCl (Zofran Inj) 4 mg IVP Q6HR PRN PRN Reason: Nausea / Vomiting Last Admin: 01/29/17 06:24 Dose: 4 mg Oxycodone HCl (Roxicodone) 10 mg PO Q6H PRN PRN Reason: PAIN Last Admin: 02/03/17 04:05 Dose: 10 mg Pioglitazone HCl (Actos) 15 mg PO DAILY [facility] Last Admin: 02/02/17 08:34 Dose: 15 mg Polyethylene Glycol (Miralax) 17 gm PO DAILY [facility] Last Admin: 02/02/17 08:28 Dose: Not Given Prochlorperazine Edisylate (Compazine Inj) 10 mg IVP Q4HR PRN PRN Reason: Nausea / Vomiting Last Admin: 01/29/17 10:22 Dose: 10 mg Saccharomyces Boulardii (Florastor) 250 mg PO BIDWM [facility] Last Admin: 02/02/17 17:04 Dose: 250 mg Senna (Senokot) 8.6 - 17.2 mg PO DAILY [facility] Last Admin: 02/02/17 07:30 Dose: Not Given Sodium Chloride (Normal Saline Flush 0.9%) 10 ml IVP PRN PRN PRN Reason: NEEDED PER PROVIDER ORDERS Last Admin: 02/03/17 00:17 Dose: 10 ml Sodium Chloride (Normal Saline Flush 0.9%) 10 ml IVP Q8HR [facility] Last Admin: 02/03/17 06:52 Dose: 10 ml Sodium Chloride (Normal Saline) 3 ml INH PRN PRN PRN Reason: Levalbuterol treatment Last Admin: 02/03/17 07:39 Dose: 3 ml Witch Shantel/Glycerin (Tucks) 1 each TOP PRN PRN PRN Reason: ITCHING Last Admin: 01/29/17 10:22 Dose: 1 each Insulin Aspart [NovoLOG] 5 unit SUBQ TIDWM 01/22/17 Objective - Vital Signs/Intake & Output Reviewed Vital Signs: Yes Vital Signs: Vital Signs x48h Temp Pulse Pulse Resp BP BP Pulse Ox 02/03/17 07:44 100 18 02/03/17 05:00 36.9 C 105 H 16 108/66 93 02/03/17 00:43 37.0 C 131 H 20 107/56 L 91 L Intake & Output: Intake & Output 01/31/17 02/01/17 02/02/17 02/03/17 23:59 23:59 23:59 23:59 Intake Total 6320 6480 4920 1180 Output Total 6596 4200 Balance 6320 -70 720 1180 - Objective General Appearance: positive: No acute distress, Alert Eyes Bilateral: positive: PERRL, EOMI ENT: positive: No signs of dehydration Neck: positive: No JVD. negative: Stiff neck, Carotid bruit Respiratory: positive: Chest non-tender. negative: Wheezes, Rales, Rhonchi Cardiovascular: positive: Regular rate & rhythm, Tachycardia, Systolic murmur. negative: Gallop/S4, Friction rub Abdomen: positive: Non-tender, No organomegaly, Nml bowel sounds, No distention Skin: positive: Warm, Dry Extremities: positive: Other (no change in toes from 02/02) Neurologic/Psychiatric: positive: Oriented x3, CN's nml (2-12), Motor nml - Lab Results Fish Bones: 01/28/17 08:02 02/01/17 04:49 Other Labs: Lab Results x24hrs 02/03/17 02/02/17 02/02/17 Range/Units 07:33 20:57 16:26 POC Whole Bld Glucose 89 244 H 196 H (70 - 100) mg/dL KATTY Screen (NEGATIVE) HCV RNA Genotype HCV RNA (PCR) IUs/ml (<15) IU/mL HCV RNA PCR log IUs/ml (<1.18) Log IU/mL Hepatitis C RNA Comment 02/02/17 02/02/17 01/29/17 Range/Units 11:43 08:06 08:38 POC Whole Bld Glucose 248 H 149 H (70 - 100) mg/dL KATTY Screen (NEGATIVE) HCV RNA Genotype NOT DETECTED HCV RNA (PCR) IUs/ml <15 NOT DETECTED (<15) IU/mL HCV RNA PCR log IUs/ml <1.18 NOT DETECTED (<1.18) Log IU/mL Hepatitis C RNA Comment SEE NOTE 01/29/17 Range/Units 08:38 POC Whole Bld Glucose (70 - 100) mg/dL KATTY Screen NEGATIVE (NEGATIVE) HCV RNA Genotype HCV RNA (PCR) IUs/ml (<15) IU/mL HCV RNA PCR log IUs/ml (<1.18) Log IU/mL Hepatitis C RNA Comment Assessment/Plan - Problem List (1) Pulmonary HTN Impression: we were looking for causes of her hypoxia. She did have small amount of atelectasis on CXR 01/22 and 01/27 and CTA was neg for PE or pneumonia 01/25. ECHO was repeated 02/02 and she has much worse Pulm HTN than the last ECHO . Also w worse valve disease. LAE went from 36 to 44. JANNA went from 12 to 20. Most of all RVSP at rest went fro 26 to 84 mmHg. Overall prognosis is poor in the next 5 years. [place] and be complaint with treatment. She may need O2 in the outpatient setting. (2) Atherosclerotic PVD with ulceration Impression: she has had ischemic toes off and on for >1 year and amanda cyanosis present off and on. She is homeless and would leave AMA or not follow thru with a PCP to get a referral to Vascular surgeon. this admission has had ulcerated tips of right and left toes. Ortho saw her and doesn't feel she has osteo. MRI was equivocal for osteo. Ortho felt if we put her on oral abx and she got better with CRP/ESR going down, then nothing further needed to be done. BC she had rising WBC and a fever, she was resumed on zosyn 01/28. Today she is crying bc she wants to return to IV opiates as well as high dose oral oxycodone. She is ambulating in room and to bathroom. No limping. no grimacing. External measures of pain with wincing, grimacing, as witnessed by RN are not present. She does have a hx of drug seeking opiates and using recreational metamphetamines. Other noticeable sign is her abrupt shift from crying to speaking normally if I distract her and ask about other things like her daughter, court mandated followthru. If she gets asked a question that has nothing to do about pain or her toes, she stops crying instantly and in a normal tone of voice discusses the topic brought forward. If I ask about the pain in the middle of that distraction, she starts crying again. On exam, her toes are better than when I saw her before. They had some redness and heat before. Today, just dried ulcers. no redness or swelling or heat. Plan: changed oxycodone q6 prn and start NSAID and Tylenol on fixed schedule on 02/02 and she is not complaining of increased pain. I did start naprosyn but she is already on meloxicam. no debridement for now DC physical therapy order on 02/01 since she is ambulating in the room. Qualifiers: Peripheral atherosclerosis location: lower extremity Peripheral atherosclerosis artery type: [place] artery Lower extremity ulceration location : other part of foot Laterality: left Qualified Code(s): I70.245 - Atherosclerosis of [place] arteries of left leg with ulceration of other part of foot (3) Anxiety Impression: on alprazolam cymbalta elavil (4) Hypertension Impression: controlled for now was on diltiazem , toprol and clonidine. Lisinopril added 01/31/17. Qualifiers: Hypertension type: essential hypertension Qualified Code(s): I10 - Essential (primary) hypertension (5) Uncontrolled type 1 diabetes mellitus with complication Impression: on lantus 60 in am, 40 in pm with 5 fixed dose before meals. Laboratory Tests 08/15/14 01/31/17 01/31/17 11:19 15:54 17:01 POC Whole Bld Glucose 305 H 285 H CCP IgG/IgA Ab 24 H 01/31/17 02/01/17 02/01/17 20:46 11:25 16:30 POC Whole Bld Glucose 345 H 293 H 349 H CCP IgG/IgA Ab 02/01/17 20:41 POC Whole Bld Glucose 321 H CCP IgG/IgA Ab increased fixed dose insulin to 10 units sq ac tid on 02/02 Selected Entries 02/02/17 02/02/17 02/02/17 08:10 08:35 08:36 Result (mg/dL) 149 149 149 02/02/17 02/02/17 02/02/17 11:46 16:28 17:03 Result (mg/dL) 248 196 196 02/02/17 02/02/17 02/02/17 21:39 22:33 22:34 Result (mg/dL) 244 244 244 02/03/17 02/03/17 02/03/17 07:53 08:19 08:20 Result (mg/dL) 89 89 89 02/03/17 08:21 Result (mg/dL) 89 (6) Vaginitis due to Ryann Impression: completed Monistat on 01/31. (7) Nausea and vomiting Impression: she has had splenomegaly and elevated LFT's before. Serology has been negative in the past for HIV and hepatitis. currently repeat testing is pending. will review once in. (8) Tachycardia Impression: she has had this as a problem since moving here from [place] ~3 years ago.She is on toprol and cardizem. RT worried that albuterol is making this worse, so changed to xopenex on 02/02. no real change in heart rate with this change in meds. (9) Tobacco abuse disorder Impression: on nicotine patch.
[2017-02-03] MEDS: DULoxetine 20 MG CAPSULE PO SCH (08:16)
[2017-02-03] MEDS: diltiaZEM CD 120 MG CAPSULE PO SCH (08:17)
[2017-02-03] MEDS: SENNA 8.6 MG TABLET PO SCH (08:17)
[2017-02-03] MEDS: PIOGLITAZONE 15 MG TABLET PO SCH (08:17)
[2017-02-03] MEDS: DOCUSATE SODIUM 250 MG CAPSULE PO SCH (08:17)
[2017-02-03] MEDS: MELOXICAM 7.5 MG TABLET PO SCH (08:17)
[2017-02-03] MEDS: SACCHAROMYCES BOULARDII 250 MG CAPSULE PO SCH (08:17)
[2017-02-03] MEDS: OLANZapine ODT 5 MG TABLET TL PRN (08:17)
[2017-02-03] MEDS: FERROUS SULFATE 325 MG TABLET PO SCH (08:18)
[2017-02-03] MEDS: MULTIVITAMIN W/MINERALS TABLET PO SCH (08:18)
[2017-02-03] MEDS: METOPROLOL SUCCINATE 25 MG TABLET PO SCH (08:18)
[2017-02-03] MEDS: LISINOPRIL 5 MG TABLET PO SCH (08:18)
[2017-02-03] MEDS: POLYETHYLENE GLYCOL 3350 17 GM PACKET PO SCH (08:18)
[2017-02-03] MEDS: MAGNESIUM OXIDE 400 MG TABLET PO SCH (08:18)
[2017-02-03] MEDS: INSULIN ASPART 300 UNIT/3 ML PEN SUBQ SCH ×4 (08:19→11:56)
[2017-02-03] MEDS: INSULIN GLARGINE 300 UNIT/3 ML PEN SUBQ SCH (08:20)
[2017-02-03] MEDS: ENOXAPARIN 40 MG/0.4 ML SYRINGE SUBQ SCH (08:20)
[2017-02-03] MEDS: CILOSTAZOL 100 MG TABLET PO SCH (08:37)
[2017-02-03] MEDS: METHOCARBAMOL 500 MG TABLET PO SCH (08:37)
[2017-02-03] MEDS: miSOPROStol 100 MCG TABLET PO SCH ×2 (08:37→13:46)
--- NOTE | 2017-02-03 13:03 | Discharge Plan ---
Discharge Plan Disposition: 01 Home, Self Care Condition: Good Prescriptions: Amitriptyline [Elavil] 50 mg PO QPM 30 Days #30 tablet Cilostazol [Pletal] 100 mg PO BID #30 tablet cloNIDine 0.1 MG PATCH [[id number]-Efr-1] 1 patch TOP Q7D #4 patch diltiaZEM CD [Cardizem Cd] 120 mg PO DAILY #30 capsule DULoxetine [Cymbalta] 40 mg PO DAILY #30 capsule Gabapentin [Neurontin] 300 mg PO TID #90 capsule Insulin Aspart [NovoLOG] 10 unit SUBQ TIDWM #10 pen Insulin Glargine [Lantus Solostar] 60 unit SUBQ DAILY #10 pen Meloxicam [Mobic] 7.5 mg PO BID #60 tablet Methocarbamol [Robaxin] 500 mg PO BID PRN #10 tablet PRN Reason: Spasms Metoprolol Succinate [Toprol Xl] 25 mg PO BID #60 tablet Diet: Diabetic Activity Restrictions: Activity as Tolerated Shower Restrictions: No Driving Restrictions: No No Smoking: If you smoke, Please STOP! Call for help.
[2017-02-04 09:21] LABS: ACETONE None Detected; AMPHETAMINES negative; BARBITURATES negative; BENZODIAZEPINES negative; ETHYL ALCOHOL None Detected; ISOPROPANOL None Detected; METHADONE negative; METHYL ALCOHOL None Detected; OPIATES negative; PROPOXYPHENE negative
--- NOTE | 2017-02-05 09:01 | DISCHARGE SUMMARY ---
DISCHARGE DIAGNOSES: 1. Type 1 diabetes with ketoacidosis without coma. 2. Uncontrolled type 1 diabetes with complications. 3. Pulmonary hypertension. 4. Hypoxia. 5. Atherosclerotic peripheral vascular disease with left toe ulcers. 6. Yeast vaginitis. 7. Hypertension. 8. Anxiety disorder. 9. Homelessness. 10. Nausea and vomiting. 11. Abnormal liver function studies. DISCHARGE MEDICATIONS: 1. Tylenol 650 mg every 6 hours as needed. 2. Elavil 50 mg every evening. 3. Pletal 100 mg p.o. b.i.d. 4. Clonidine patch 0.1 q. 7 days. 5. Cardizem-CD 120 mg daily. 6. Cymbalta 40 mg daily. 7. Neurontin 300 mg 3 times a day. 8. NovoLog 10 units subcutaneous before meals 3 times a day. 9. Lantus SoloSTAR 60 units subcutaneous daily. 10. Mobic 7.5 mg p.o. b.i.d. as needed. 11. Robaxin 500 mg p.o. b.i.d. as needed. 12. Toprol-XL 25 mg p.o. b.i.d. PRINCIPAL PROCEDURES: 1. Three chest x-rays on 01/22/2017, 01/25/2017, 01/27/2017 without acute cardiopulmonary changes. No infiltrates. 2. Foot x-ray 01/24/2017 showing no acute bony abnormalities in the left foot to indicates osteomyelitis. There is soft tissue swelling at the fourth toe corresponding with the patient's swelling and pain and ulceration. 3. Toe MRI left foot with slightly technically limited exam due to the patient related motion. Hyperdense signal within the fourth distal phalanx and slight T2 hyperintense signal within the second and first distal phalanges. Finding is nonspecific. Etiologies might include bone contusion, stress reaction, or early osteomyelitis. She had a small first metatarsophalangeal joint effusion. She had a small amount of fluid at the first, second, 3rd intermetatarsal bursa. Subcutaneous edema of the dorsal aspect of the forefoot. Small amount of free fluid between the flexor digitorum brevis and abductor hallucis muscles indicating inflammatory posttraumatic etiology. 4. Chest thorax CT angiogram with no pulmonary embolism. Mild bilateral lower dependent atelectasis. No consolidation or other changes. 5. Abdominal ultrasound with enlarged fatty liver and splenomegaly. Mildly enlarged, but common bile duct may be related to post-cholecystectomy state. 6. Echocardiogram with mild concentric left ventricular hypertrophy with normal systolic function of an ejection fraction of 60 percent. The left atrium is moderately dilated. She has severe pulmonary hypertension of unclear etiology with pulmonary artery systolic pressure of 84 mm, but only mild to moderately elevated right atrial pressure. A primary pulmonary source is suspected. The right ventricle is normal size and function. Moderate tricuspid regurgitation. Otherwise normal study. 7. Blood cultures no growth after 5 days. 8. Stool occult blood negative. Culture of the left toe with like growth of group B strep and scant growth of Staph aureus that was susceptible. HOSPITAL COURSE: Ms. Calero is an unfortunate 36-year-old homeless person who has type 1 diabetes and is well known to our service with multiple admissions for DKA, hypothermia cyanosis, and occasional polysubstance abuse. She became homeless in February 2015 and her hospitalizations increased subsequent to that because of her homeless status. She has been a noncompliant patient in that she does not follow through with primary care provider visits, or follow through with taking her medications as directed. She states that she does have a tent, the tent is heated, and she has her medicines stored in an appropriate place where they are cool and safe. She was just discharged 01/15/2017 for diabetic ketoacidosis. She went back to her homeless challenging situation. There were several people occupying her tent and using methamphetamines and no way for her to stay away from using methamphetamines. She smokes and snorts it, but does not inject it. She does take her Lantus regularly and uses a sliding scale. She began having cold-like symptoms, with intractable nausea and vomiting, as well as abdominal pain. She had increased abdominal aching, gas, belching. In addition to this, she has bilateral toe wounds affecting multiple toes. She does have a known history of cyanosis and ischemia of her toes, but she has never really had a formal vascular evaluation because of her noncompliance and challenging home life situation. Today, on admission, the patient reported that her foot wounds were very painful. HOSPITAL COURSE: The patient was admitted with another episode of DKA type 1. She was placed in ICU on insulin drip and aggressive fluid supplementation as well as electrolyte replacement occurred. She was transitioned in less than a day. Able to eat, and able to go back on insulin and have it adjusted on the basis of her glucose. She is discharged on Lantus and NovoLog. She will be reduced in her use of Lantus. We do note that while she is in the hospital, she eats pretty much what we give her from the kitchen. While she is very demanding with regard to food intake and gets up to 6 small meals a day and liquids, she is probably completely noncompliant in her home life or in the outpatient setting. We did send her home on the insulin that she was using here in the hospital, but she may need more in the outpatient setting. She developed hypoxia during her stay with tachycardia that has always been present. We evaluated with a CT pulmonary angiogram; it showed no PE. Chest x- ray showed no pneumonia. However, echocardiogram shows worsening pulmonary hypertension worse from 09/2016 to now. She will need outpatient followup with pulmonology, and treatment for pulmonary hypertension. Felicitas says that that is just not possible for her. She has several outstanding legal issues and is under a court mandated supervisory program. She is not allowed to leave the [place] even for medical reasons, she tells me. Her arteriosclerotic peripheral vascular disease was addressed during her stay. She was seen by Dr. Dial, orthopedic surgery. She has ischemic ulcers, or ulcers of her f first and fourth toe on the right foot. She has one fourth toe ulcer on the left. The ones on her right do not hurt her. During her stay here they slowly improved and were just discolored brown flaking areas at the tips of her toes. Her left 4th toe, however, at one point became swollen, slightly red and tender and she was treated with antibiotics. Initially, she was IV and they were transitioned to oral. Because she had increased pain, her oral IV antibiotics were then changed to IV antibiotics again before discharge. At discharge, she continued to have healing ulcers of the right foot, first and fourth toe, and ulcer of the distal tip of the left fourth toe. However, Orthopedics does not feel that there is osteomyelitis and the patient does not need long-term antibiotics. He does recommend a peripheral vascular evaluation. Again we are back to Ms. Calero explaining that she cannot leave the [place] for that evaluation. She complained of yeast vaginitis, which was treated with Monistat. Hypertension was treated with increasing doses of medication and she was discharged on the above regime. At discharge, blood pressure was ranging from 107 systolic to 151 systolic. Anxiety was manifested as frequent crying episodes. A lot of it was centered around not wanting to be homeless anymore, wanting us to seek placement for her. However, she needs to follow through with meeting with [facility]. On the day of discharge, she actually walked across the street to then put her name on the list for housing. This may take up for a year for this to occur, but in the meantime, she needs to follow through with the paperwork required. She is occasionally drug-seeking in that she likes opiates, and benzodiazepines. We did control her anxiety and pain with nonsteroidals, fixed dose scheduling, as well as fixed dose scheduling of Tylenol. Intermittently, she would receive oxycodone orally. At one point, she did receive Dilaudid IV. I would hope that the next providers to cigar packer and picker the chart will read this note and I could only strongly emphasized that we are trying to avoid using opiates on a regular basis for Felicitas Please assess the situation and treat accordingly. Nausea and vomiting occurred at one point. Liver enzymes were elevated with that. Hepatitis panel is negative on repeat. She has had elevated enzymes in the past and hepatitis A, B, and C have been negative then and negative now. Ultrasound shows splenomegaly. Liver function studies were normal, by the time of discharge. The patient is now discharged to her tent [facility]. She has already put her name on the list for housing. She does not want to go to the senior care because she does not like the rules with regard to having to leave at 7 in the morning and be back in the evening. She also states we cannot transfer her off the [place] because of her court mandated appearances. At discharge, temperature is 36.9, pulse is 100. This is chronic tachycardia for her. Blood pressure 108/66, respirations 18. She is 93% on room air. She is a slender young white female who looks much older than stated age, several teeth are missing, dental caries are present. NECK: Supple without JVD. Lungs: Clear to auscultation and percussion. She has a hard S1, S2 with a right ventricular lift. Systolic ejection murmur present. The abdomen is soft, hypoactive bowel sounds, nontender. No masses. Spleen is not really palpable. I am not feeling any masses in the left upper quadrant or left mid abdomen. In previous days her toes have been ischemic, with this stay, the main finding was of a swollen, red left toe, fourth toe. However, over the last couple of weeks that redness and swelling has completely dissipated. The ulcer that was black and almost peeling off on the left fourth toe has improved to now it is just thick flaking skin with a brown eschar. There is no redness or heat around the toe. She limps partially because of discomfort and has been evaluated by physical therapy and she is discharged with a walker to help with ambulation and to help stay off the weight of that left fourth toe. The right great toe and fourth toe also has healing ulcers that were not ever painful or infected during the stay. I have explained to Felicitas that she really needs to establish herself with a primary care provider. She needs to follow through with issues such as her pulmonary hypertension, vascular evaluation, etc. She said she would try. Greater than 30 minutes was spent in coordinating discharge. TD: 02/04/2017 19:29 BRYANNA
== END 2017-02-03 14:52 | disposition home or self-care (01) | DRG 639 ==
LOC: EDUNIT# → ED 18:44 → ICU 21:02 → MS3 01-26 16:27
PROVIDERS: ADMIT Internal Medicine; ATTEND Specialist
PROC: 30233N1 Transfusion of Nonautologous Red Blood Cells into Peripheral Vein, Percutaneous Approach (ICD-10-PCS; principal; 2017-01-27)
DX: E10.10 Type 1 diabetes mellitus with ketoacidosis without coma (principal); I70.245 Atherosclerosis of native arteries of left leg with ulceration of other part of foot; I70.235 Atherosclerosis of native arteries of right leg with ulceration of other part of foot; I10 Essential (primary) hypertension; E78.00 Pure hypercholesterolemia, unspecified; E10.51 Type 1 diabetes mellitus with diabetic peripheral angiopathy without gangrene; E10.42 Type 1 diabetes mellitus with diabetic polyneuropathy; F41.0 Panic disorder [episodic paroxysmal anxiety]; M79.7 Fibromyalgia; F17.200 Nicotine dependence, unspecified, uncomplicated; L97.521 Non-pressure chronic ulcer of other part of left foot limited to breakdown of skin; L97.511 Non-pressure chronic ulcer of other part of right foot limited to breakdown of skin; I27.20 Pulmonary hypertension, unspecified; B37.3 Candidiasis of vulva and vagina; I07.1 Rheumatic tricuspid insufficiency; E86.0 Dehydration; B95.1 Streptococcus, group B, as the cause of diseases classified elsewhere; B95.61 Methicillin susceptible Staphylococcus aureus infection as the cause of diseases classified elsewhere; D50.9 Iron deficiency anemia, unspecified; F31.9 Bipolar disorder, unspecified; E83.42 Hypomagnesemia; F19.10 Other psychoactive substance abuse, uncomplicated; G89.29 Other chronic pain; R00.0 Tachycardia, unspecified; R23.0 Cyanosis; S00-T88 Injury, poisoning and certain other consequences of external causes; I25.2 Old myocardial infarction; Z59.0 Homelessness; Z90.49 Acquired absence of other specified parts of digestive tract; Z79.4 Long term (current) use of insulin; Z76.5 Malingerer [conscious simulation]; Z87.19 Personal history of other diseases of the digestive system
CPT/HCPCS: 36415; 71010; 71020; 71275; 76700; 80048; 80053; 80306; 80307; 80320; 81001; 81003; 82009; 82150; 82270; 82533; 82607; 82746; 82803; 82947; 83036; 83540; 83690; 83735; 83880; 84100; 84466; 84484; 84703; 85025; 86038; 86140; 86317; 86704; 86803; 86850; 86900; 86901; 86920; 87040; 87070; 87086; 87150; 87205; 87275; 87276; 87340; 87522; 87902; 93005; 93308; 94640; 96361; 96374; 96375; 99284; 99285

== ENCOUNTER 2017-02-16 12:41 | Outpatient (CLI) | payer MEDICAID | END 2017-02-16 12:42 | disposition critical access hospital (66) | LOC: EMS 12:41 | PROVIDERS: ATTEND Surgery | DX: R07.9 Chest pain, unspecified (principal) | CPT/HCPCS: A0425; A0429 ==

== ENCOUNTER 2017-02-16 13:09 | Emergency (ER) | payer MEDICAID ==
[2017-02-16] MEDS ORDERED: ELECTROLYTE-A SOLUTION 1,000 ML IV STA (13:13)
[2017-02-16] MEDS ORDERED: ELECTROLYTE-A SOLUTION 1,000 ML IV ONE (13:13)
--- NOTE | 2017-02-16 13:22 | ED Physician Documentation ---
History of Present Illness - Stated complaint Stated Complaint: SYNCOPE - Chief complaint Chief Complaint: Neuro - History obtained from History obtained from: Patient, EMS - History of Present Illness Timing: Today Pain level max: 10 Pain level now: 10 Improved by: nothing Worsened by: nothing - Additonal information Additional information: Patient is a well known 36 yo female who presents to the ED with recurrent chest /abdominal pain and hyperglycemia. She states that she last used methamphetamines 4 days ago. States had increasing pain In her chest today. She also states that she has been taking her insulin, but blood sugar is elevated. Is having abdominal cramping but no vomiting. Has been admitted several times for DKA recently. bystanders report she passed out today, she denies this. Review of Systems Ten Systems: 10 systems reviewed and negative Constitutional: denies: Fever, Chills Ears: denies: Ear pain Nose: denies: Rhinorrhea / runny nose, Congestion Throat: denies: Sore throat Cardiac: reports: Chest pain / pressure. denies: Palpitations Respiratory: denies: Cough GI: reports: Abdominal Pain. denies: Nausea, Vomiting, Diarrhea Skin: denies: Rash Musculoskeletal: denies: Neck pain, Back pain Neurologic: denies: Focal weakness, Numbness, Headache PD PAST MEDICAL HISTORY - Past Medical History Cardiovascular: Hypertension, High cholesterol, Peripheral Vascular Disease, [place] Respiratory: None Neuro: Peripheral neuropathy Endocrine/Autoimmune: Type 1 diabetes GI: Pancreatitis MANAGER STATISTICS: None : None HEENT: None Psych: Depression, Anxiety, Panic attacks Musculoskeletal: Fibromyalgia Derm: None - Past Surgical History Past Surgical History: Yes General: Cholecystectomy HEENT: Tonsil/Adenoidectomy - Present Medications Home Medications: Ambulatory Orders Medication Instructions Recorded Confirmed Acetaminophen [Tylenol] 650 mg PO Q6HR tablet 02/03/17 Amitriptyline [Elavil] 50 mg PO QPM 30 Days #30 tablet 02/03/17 Cilostazol [Pletal] 100 mg PO BID #30 tablet 02/03/17 DULoxetine [Cymbalta] 40 mg PO DAILY #30 capsule 02/03/17 Gabapentin [Neurontin] 300 mg PO TID #90 capsule 02/03/17 Insulin Aspart [NovoLOG] 10 unit SUBQ TIDWM #10 pen 02/03/17 Insulin Glargine [Lantus Solostar] 60 unit SUBQ DAILY #10 pen 02/03/17 Meloxicam [Mobic] 7.5 mg PO BID #60 tablet 02/03/17 Methocarbamol [Robaxin] 500 mg PO BID PRN #10 tablet 02/03/17 Metoprolol Succinate [Toprol Xl] 25 mg PO BID #60 tablet 02/03/17 cloNIDine 0.1 MG PATCH 1 patch TOP Q7D #4 patch 02/03/17 [[id number]] diltiaZEM CD [Cardizem Cd] 120 mg PO DAILY #30 capsule 02/03/17 - Allergies Allergies/Adverse Reactions: Allergies Allergy/AdvReac Type Severity Reaction Status Date / Time codeine Allergy Hives Verified 02/16/17 13:18 hydrocodone Allergy Hives Verified 02/16/17 13:18 milk AdvReac Cramps Verified 02/16/17 13:18 nitrofurantoin AdvReac Headache Verified 02/16/17 13:18 [From Macrobid] PAPER TAPE AdvReac Unknown Uncoded 01/04/17 10:12 - Social History Does the pt smoke?: Yes Smoking Status: Smoker current status unk Does the pt drink ETOH?: No Does the pt have substance abuse?: No - Immunizations Immunizations are current?: Yes - POLST Patient has POLST: No PD ED PE NORMAL - Vitals Vital signs reviewed: Yes - General General: Alert and oriented X 3, No acute distress, Well developed/nourished - HEENT HEENT: PERRL, Moist mucous membranes - Neck Neck: Supple, no meningeal sign - Cardiac Cardiac: RRR - Respiratory Respiratory: No respiratory distress, Clear bilaterally - Abdomen Abdomen: Soft, Non distended, Other (diffusely TTP) - Derm Derm: Warm and dry - Neuro Neuro: Alert and oriented X 3 - Psych Psych: Other (appears uncomfortable) Results - Vitals Vitals: Vital Signs - 24 hr 02/16/17 02/16/17 13:10 13:50 Temperature 37.1 C Heart Rate 118 H 110 H Respiratory 21 22 Rate Blood Pressure 106/94 H 122/77 O2 Saturation 100 100 Oxygen O2 Source [] Room air O2 Source Room air - EKG (time done) 1321 Rate: Rate (enter#) (113) Rhythm: NSR [place]: Normal Intervals: Normal [place] QRS: Normal Ischemia: Normal ST segments Compare to prior EKG: Unchanged from prior EKG (no change 01/22/17) Computer interpretation: Disagree with computer PD MEDICAL DECISION MAKING - ED course Complexity details: reviewed old records, considered differential, d/w patient ED course: Patient is a 36-year-old female who is well-known to the emergency department with recurrent DKA as well as ongoing methamphetamine abuse. She presents to the emergency department with elevated blood sugars again today. She is a difficult IV access because of her many years of DKA as well as drug abuse. Anesthesia was consulted to start a line for bloodwork and medications. While anesthesia was preparing to start the line, the patient became very agitated and stated that she did not want to be at the hospital and that she wanted to go home. He was explained her several times that she could be very ill in the going home could cause her to lose her life, patient states that she understands this but does not want to be in the hospital and that she feels "fine". States that she took 20 units of insulin prior to arrival. No evidence for me to hold her against her will. not intoxicated or altered. Patient refused to sign AMA paperwork. She was informed that she is welcome to return any time. Patient then stormed out of the emergency department under her own power cursing along the way. This document was made in part using voice recognition software. While efforts are made to proofread this document, sound alike and grammatical errors may occur. Departure - Departure Disposition: 07 Against Medical Advice Clinical Impression: Uncontrolled type 1 diabetes mellitus with complication Condition: Stable Discharge Date/Time: 02/16/17 14:05
[2017-02-16] MEDS ORDERED: LIDOCAINE VISCOUS 2% 15 ML UDC MM STA (13:32)
[2017-02-16] MEDS ORDERED: MAG HYDROX/AL HYDROX/SIMETH 30 ML UDC PO STA (13:32)
[2017-02-16] MEDS ORDERED: SUCRALFATE 1 GM/10 ML UDC PO STA (13:32)
[2017-02-16 14:30] VITALS: BP 122/77
== END 2017-02-16 14:05 | disposition left against medical advice (07) ==
LOC: EDUNIT# → ED 13:09
DX: E10.65 Type 1 diabetes mellitus with hyperglycemia (principal); Z79.4 Long term (current) use of insulin; F15.10 Other stimulant abuse, uncomplicated; E10.42 Type 1 diabetes mellitus with diabetic polyneuropathy; E10.51 Type 1 diabetes mellitus with diabetic peripheral angiopathy without gangrene
CPT/HCPCS: 80053; 82009; 82803; 83605; 83690; 85025; 93005; 99283; 99284

== ENCOUNTER 2017-02-26 18:23 | Outpatient (CLI) | payer MEDICAID | END 2017-02-26 18:24 | disposition critical access hospital (66) | LOC: EMS 18:23 | PROVIDERS: ATTEND Surgery | DX: M79.672 Pain in left foot (principal); M79.671 Pain in right foot | CPT/HCPCS: A0425; A0429 ==

== ENCOUNTER 2017-02-26 18:40 | Emergency (ER) | payer MEDICAID ==
[2017-02-26 18:48] VITALS: BP 162/110
[2017-02-26 19:59] LABS: VBG PCO2 35.3 mmHg (41-51); VBG PH 7.421 (7.31-7.41)
[2017-02-26 20:00] LABS: BASOPHILS # (AUTO) 0.1 10^3/uL (0.0-0.1); BASOPHILS % (AUTO) 0.8 %; EOSINOPHILS # (AUTO) 0.2 10^3/uL (0.0-0.7); EOSINOPHILS % (AUTO) 2.4 %; HGB - HEMOGLOBIN 11.9 g/dL (12.0-16.0); LYMPHOCYTES # (AUTO) 2.3 10^3/uL (1.5-3.5); MEAN CORPUSCULAR HEMOGLOBIN 24.6 pg (27.0-31.0); MEAN CORPUSCULAR HGB CONC 31.2 g/dL (32.0-36.0); MEAN CORPUSCULAR VOLUME 78.9 fL (81.0-99.0); MEAN PLATELET VOLUME 7.9 fL (7.9-10.8); MONOCYTES # (AUTO) 0.3 10^3/uL (0.0-1.0); MONOCYTES % (AUTO) 4.3 %; NEUTROPHILS # (AUTO) 4.1 10^3/uL (1.5-6.6); NEUTROPHILS % (AUTO) 59.5 %; PLT - PLATELET COUNT 335 10^3/uL (130-450); RED BLOOD COUNT 4.85 10^6/uL (4.20-5.40); RED CELL DISTRIBUTION WIDTH 17.2 % (12.0-15.0); VBG BASE EXCESS -1.5 mmol/L (-2 - +2); VBG PO2 59.2 mmHg (25-47); VBG TOTAL CO2 23.5 mmol/L (24-29); WHITE BLOOD COUNT 6.9 x10^3/uL (4.8-10.8)
[2017-02-26 20:16] LABS: ALBUMIN 3.8 g/dL (3.2-5.5); ALKALINE PHOSPHATASE 441 IU/L (42-121); ALT ALANINE AMINOTRANSFERASE 101 IU/L (10-60); AST ASPARTATE AMINOTRANSFERASE 44 IU/L (10-42); BILIRUBIN,TOTAL < 0.2 mg/dL (0.2-1.0); BUN - BLOOD UREA NITROGEN 11 mg/dL (6-20); CARBON DIOXIDE - CO2 23 mmol/L (21-32); CHLORIDE 100 mmol/L (101-111); CREATININE 0.7 mg/dL (0.4-1.0); GFR - MDRD 95 (>89); LIPASE 30 U/L (22-51); SODIUM 133 mmol/L (135-145); TOTAL PROTEIN 7.5 g/dL (6.7-8.2)
[2017-02-26 20:17] LABS: GLUCOSE 529 mg/dL (70-100)
[2017-02-26] MEDS ORDERED: SODIUM CHLORIDE 0.9% 1,000 ML IV ONE (20:29)
[2017-02-26] MEDS ORDERED: INSULIN REGULAR HUMAN 100 UNIT/1 ML 10 ML MDV IVP STA (20:29)
[2017-02-26 20:39] LABS: KETONES, SERUM (ACETEST) NEGATIVE (NEGATIVE)
[2017-02-26] MEDS ORDERED: LIDOCAINE 1% 2 ML VIAL ONE ×2 (20:42→20:44)
[2017-02-26] MEDS ORDERED: ACETAMINOPHEN 325 MG TABLET PO STA (20:50)
--- NOTE | 2017-02-26 21:05 | ED Physician Documentation ---
History of Present Illness - Stated complaint Stated Complaint: MALHOTRA BITE - Chief complaint Chief Complaint: Ext Problem - History obtained from History obtained from: Patient - Additonal information Additional information: patient is a 36 year old female with a history of diabetes with multiple ED visits who is presenting to the emergency department for foot pain. patient states that she has frostbite on her feet and it is more painful. Patient's blood glucose in triage is over 500. Review of Systems Constitutional: denies: Fever, Chills Eyes: reports: Reviewed and negative Ears: reports: Reviewed and negative Nose: reports: Reviewed and negative Throat: denies: Sore throat Cardiac: reports: Palpitations. denies: Chest pain / pressure GI: denies: Nausea, Vomiting Skin: reports: Lesions Musculoskeletal: reports: Extremity pain, Extremity swelling Endocrine: reports: Polydypsia, Polyuria Immunocompromised: reports: Immunocompromised PD PAST MEDICAL HISTORY - Past Medical History Cardiovascular: Hypertension, High cholesterol, Peripheral Vascular Disease, [place] Respiratory: None Neuro: Peripheral neuropathy Endocrine/Autoimmune: Type 1 diabetes GI: Pancreatitis SUBSCRIPTION AGENT: None : None HEENT: None Psych: Depression, Anxiety, Panic attacks Musculoskeletal: Fibromyalgia Derm: None - Past Surgical History Past Surgical History: Yes General: Cholecystectomy HEENT: Tonsil/Adenoidectomy - Present Medications Home Medications: Ambulatory Orders Medication Instructions Recorded Confirmed Acetaminophen [Tylenol] 650 mg PO Q6HR tablet 02/03/17 02/26/17 Amitriptyline [Elavil] 50 mg PO QPM 30 Days #30 tablet 02/03/17 02/26/17 Cilostazol [Pletal] 100 mg PO BID #30 tablet 02/03/17 02/26/17 DULoxetine [Cymbalta] 40 mg PO DAILY #30 capsule 02/03/17 02/26/17 Gabapentin [Neurontin] 300 mg PO TID #90 capsule 02/03/17 02/26/17 Insulin Aspart [NovoLOG] 10 unit SUBQ TIDWM #10 pen 02/03/17 02/26/17 Insulin Glargine [Lantus Solostar] 60 unit SUBQ DAILY #10 pen 02/03/17 02/26/17 Meloxicam [Mobic] 7.5 mg PO BID #60 tablet 02/03/17 02/26/17 Methocarbamol [Robaxin] 500 mg PO BID PRN #10 tablet 02/03/17 02/26/17 Metoprolol Succinate [Toprol Xl] 25 mg PO BID #60 tablet 02/03/17 02/26/17 cloNIDine 0.1 MG PATCH 1 patch TOP Q7D #4 patch 02/03/17 02/26/17 [[id number]] diltiaZEM CD [Cardizem Cd] 120 mg PO DAILY #30 capsule 02/03/17 02/26/17 Sulfamethox/Trimeth 800/160 1 each PO BID #14 tablet 02/26/17 [Bactrim Ds 800/160] - Allergies Allergies/Adverse Reactions: Allergies Allergy/AdvReac Type Severity Reaction Status Date / Time codeine Allergy Hives Verified 02/26/17 18:48 hydrocodone Allergy Hives Verified 02/26/17 18:48 milk AdvReac Cramps Verified 02/26/17 18:48 nitrofurantoin AdvReac Headache Verified 02/26/17 18:48 [From Macrobid] PAPER TAPE AdvReac Unknown Uncoded 02/26/17 18:48 - Social History Does the pt smoke?: Yes Smoking Status: Current every day smoker Does the pt drink ETOH?: No Does the pt have substance abuse?: No - Immunizations Immunizations are current?: Yes - POLST Patient has POLST: No PD ED PE NORMAL - Vitals Vital signs reviewed: Yes - Respiratory Respiratory: No respiratory distress - Neuro Neuro: Alert and oriented X 3, No motor deficit, No sensory deficit, Normal speech Eye Opening: Spontaneous Motor: Obeys Commands Verbal: Oriented GCS Score: 15 PD ED PE EXPANDED - General General: Alert, Disheveled, poorly kept, In Pain - HEENT HEENT: Dry mucous membranes - Cardiac Cardiac: Tachy - Extremities Extremities: Right toe(s), Left toe(s) (ulcerations of multiple toes on both feet with granulation tissue) - Psych Psych: Agitated Results - Vitals Vitals: Vital Signs - 24 hr 02/26/17 18:44 Temperature 36.9 C Heart Rate 119 H Respiratory 18 Rate Blood Pressure 162/110 H O2 Saturation 99 Oxygen O2 Source [Without Activity] Room air O2 Source Room air - Labs Labs: Laboratory Tests 02/26/17 02/26/17 02/26/17 19:50 19:50 19:50 WBC 6.9 RBC 4.85 Hgb 11.9 L Hct 38.3 MCV 78.9 L MCH 24.6 L MCHC 31.2 L RDW 17.2 H Plt Count 335 MPV 7.9 Neut # 4.1 Lymph # 2.3 [facility] [place] [facility] # 0.3 Eos # 0.2 Baso # 0.1 Absolute Nucleated RBC 0.00 Nucleated RBC % 0.0 VBG pH 7.421 H VBG pCO2 35.3 L VBG pO2 59.2 H VBG HCO3 22.4 L VBG Total CO2 23.5 L VBG O2 Saturation 91.3 H VBG Base Excess -1.5 Sodium 133 L Potassium 4.4 Chloride 100 L Carbon Dioxide 23 Anion Gap 10.0 BUN 11 Creatinine 0.7 Estimated GFR (MDRD) 95 Glucose 529 H* Calcium 9.0 Total Bilirubin < 0.2 L AST 44 H ALT 101 H Alkaline Phosphatase 441 H Total Protein 7.5 Albumin 3.8 Globulin 3.7 Albumin/Globulin Ratio 1.0 Lipase 30 Ethyl Alcohol Serum Ketones NEGATIVE 02/26/17 19:50 WBC RBC Hgb Hct MCV MCH MCHC RDW Plt Count MPV Neut # Lymph # [facility] # Eos # Baso # Absolute Nucleated RBC Nucleated RBC % VBG pH VBG pCO2 VBG pO2 VBG HCO3 VBG Total CO2 VBG O2 Saturation VBG Base Excess Sodium Potassium Chloride Carbon Dioxide Anion Gap BUN Creatinine Estimated GFR (MDRD) Glucose Calcium Total Bilirubin AST ALT Alkaline Phosphatase Total Protein Albumin Globulin Albumin/Globulin Ratio Lipase Ethyl Alcohol < 5.0 Serum Ketones PD MEDICAL DECISION MAKING - ED course Complexity details: reviewed old records, reviewed results, re-evaluated patient , considered differential, d/w patient ED course: Patient was seen and examined at beside. IV access was gained and labs were drawn. Patient was started on a two liter bolus and 6 units of IV insulin were ordered. Patient's labs showed no signs of dka. An attempt at a digital block was performed for patient's toes. patient began screaming and became agitated. patient stated that she wanted to leave. Patient was made aware that by leaving she would be at risk of worsening symptoms and disease. patient was awake alert and oriented. patient ripped out her IV and left ama. Departure - Departure Disposition: Against Medical Advice Clinical Impression: Hyperglycemia, Skin infection Prescriptions: Sulfamethox/Trimeth 800/160 [Bactrim Ds 800/160] 1 each PO BID #14 tablet Discharge Date/Time: 02/26/17 22:00
== END 2017-02-26 22:00 | disposition left against medical advice (07) ==
LOC: EDUNIT# → ED 18:40
DX: E10.65 Type 1 diabetes mellitus with hyperglycemia (principal); Z79.4 Long term (current) use of insulin; Z53.29 Procedure and treatment not carried out because of patient's decision for other reasons; L08.9 Local infection of the skin and subcutaneous tissue, unspecified; I10 Essential (primary) hypertension; E78.00 Pure hypercholesterolemia, unspecified; I73.9 Peripheral vascular disease, unspecified; I25.2 Old myocardial infarction; M79.7 Fibromyalgia; F17.200 Nicotine dependence, unspecified, uncomplicated
CPT/HCPCS: 36415; 64450; 80053; 80320; 82009; 82803; 83690; 85025; 96374; 99283; J1815

== ENCOUNTER 2017-03-14 13:14 | Outpatient (CLI) | payer MEDICAID | END 2017-03-14 13:15 | disposition critical access hospital (66) | LOC: EMS 13:14 | PROVIDERS: ATTEND Surgery | DX: R11.2 Nausea with vomiting, unspecified (principal); R73.09 Other abnormal glucose | CPT/HCPCS: A0425; A0429 ==

== ENCOUNTER 2017-03-14 13:29 | Inpatient (IN) | payer MEDICAID ==
[2017-03-14] MEDS ORDERED: SODIUM CHLORIDE 0.9% 2,000 ML IV ONE (13:42)
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
[2017-03-14] MEDS ORDERED: oxyCODONE 5 MG TABLET PO STA (14:43)
[2017-03-14] MEDS ORDERED: PROMETHAZINE 25 MG TABLET PO STA (14:44)
[2017-03-14] MEDS ORDERED: PROMETHAZINE INJ 25 MG in SODIUM CHLORIDE 0.9% 50 ML IV STA (15:30)
[2017-03-14] MEDS ORDERED: ACETAMINOPHEN 1,000 MG/100 ML 100 ML IV STA (15:30)
[2017-03-14] MEDS ORDERED: PROMETHAZINE 25 MG/1 ML VIAL ONE (15:38)
[2017-03-14 15:43] LABS: BASOPHILS # (AUTO) 0.1 10^3/uL (0.0-0.1); EOSINOPHILS % (AUTO) 0.1 %; HGB - HEMOGLOBIN 11.8 g/dL (12.0-16.0); LYMPHOCYTES # (AUTO) 1.2 10^3/uL (1.5-3.5); LYMPHOCYTES % (AUTO) 12.9 %; MEAN CORPUSCULAR HGB CONC 29.3 g/dL (32.0-36.0); MEAN PLATELET VOLUME 8.3 fL (7.9-10.8); MONOCYTES # (AUTO) 0.2 10^3/uL (0.0-1.0); MONOCYTES % (AUTO) 2.5 %; NEUTROPHILS # (AUTO) 7.6 10^3/uL (1.5-6.6); NEUTROPHILS % (AUTO) 83.5 %; PLT - PLATELET COUNT 554 10^3/uL (130-450); RED CELL DISTRIBUTION WIDTH 16.9 % (12.0-15.0); WHITE BLOOD COUNT 9.1 x10^3/uL (4.8-10.8)
[2017-03-14 15:44] LABS: VBG BASE EXCESS -22.4 mmol/L (-2 - +2); VBG PCO2 24.1 mmHg (41-51); VBG PH 7.053 (7.31-7.41); VBG PO2 47.1 mmHg (25-47); VBG TOTAL CO2 7.3 mmol/L (24-29)
[2017-03-14] MEDS ORDERED: INSULIN REGULAR HUMAN 100 UNIT/1 ML 10 ML MDV IVP STA (15:47)
[2017-03-14] MEDS ORDERED: INSULIN REGULAR HUMAN 100 UNIT in SODIUM CHLORIDE 0.9% 100ML 99 ML IV STA (15:47)
[2017-03-14 15:51] LABS: KETONES, SERUM (ACETEST) LARGE (NEGATIVE)
[2017-03-14 16:00] LABS: PLATELET ESTIMATE, MANUAL INCREASED (>450,000) (NORMAL); PLATELET MORPHOLOGY 1+ LARGE PLATELETS (NORMAL); RBC MORPHOLOGY (MULTIPLE) 1+ ANISOCYTOSIS (NORMAL)
[2017-03-14 16:05] LABS: HCG,QUALITATIVE BLOOD NEGATIVE
[2017-03-14 16:07] LABS: BUN - BLOOD UREA NITROGEN 40 mg/dL (6-20); CALCIUM 9.2 mg/dL (8.5-10.3); CHLORIDE 91 mmol/L (101-111); CREATININE 1.3 mg/dL (0.4-1.0); GFR - MDRD 47 (>89); SODIUM 130 mmol/L (135-145)
[2017-03-14 16:08] LABS: CARBON DIOXIDE - CO2 7 mmol/L (21-32)
[2017-03-14 16:09] LABS: GLUCOSE 676 mg/dL (70-100)
[2017-03-14] MEDS ORDERED: METHOCARBAMOL 500 MG TABLET PO PRN (16:15)
--- NOTE | 2017-03-14 16:33 | HISTORY & PHYSICAL EXAMINATION ---
Chief Complaint - Chief Complaint Chief Complaint: weakness, confusion History - Past Medical History Cardiovascular: reports: Hypertension, High cholesterol, Peripheral Vascular Disease, [place] Respiratory: reports: None Neuro: reports: Peripheral neuropathy Endocrine/Autoimmune: reports: Type 1 diabetes GI: reports: Pancreatitis DIRECTOR CENTER: reports: None : reports: None HEENT: reports: None Psych: reports: Depression, Anxiety, Panic attacks Musculoskeletal: reports: Fibromyalgia Derm: reports: None MRSA Hx?: No - Past Surgical History General: reports: Cholecystectomy HEENT: reports: Tonsil/Adenoidectomy - Family & Social History Family History: Father: CAD, CVA/TIA Living arrangement: Homeless Living Situation: With friend(s) - Substance History Use Issues: Intoxication, Anxiety Disorder Abuse: Recurrent use of substance despite neg consequences: Alcohol, Amphetamine - POLST Patient has POLST: No POLST Status: Full Code Meds/Allgy - Home Medications Home Medications: Ambulatory Orders Medication Instructions Recorded Confirmed Acetaminophen [Tylenol] 650 mg PO Q6HR tablet 02/03/17 02/26/17 Amitriptyline [Elavil] 50 mg PO QPM 30 Days #30 tablet 02/03/17 02/26/17 Cilostazol [Pletal] 100 mg PO BID #30 tablet 02/03/17 02/26/17 DULoxetine [Cymbalta] 40 mg PO DAILY #30 capsule 02/03/17 02/26/17 Gabapentin [Neurontin] 300 mg PO TID #90 capsule 02/03/17 02/26/17 Insulin Aspart [NovoLOG] 10 unit SUBQ TIDWM #10 pen 02/03/17 02/26/17 Insulin Glargine [Lantus Solostar] 60 unit SUBQ DAILY #10 pen 02/03/17 02/26/17 Meloxicam [Mobic] 7.5 mg PO BID #60 tablet 02/03/17 02/26/17 Methocarbamol [Robaxin] 500 mg PO BID PRN #10 tablet 02/03/17 02/26/17 Metoprolol Succinate [Toprol Xl] 25 mg PO BID #60 tablet 02/03/17 02/26/17 cloNIDine 0.1 MG PATCH 1 patch TOP Q7D #4 patch 02/03/17 02/26/17 [[id number]] diltiaZEM CD [Cardizem Cd] 120 mg PO DAILY #30 capsule 02/03/17 02/26/17 Sulfamethox/Trimeth 800/160 1 each PO BID #14 tablet 02/26/17 [Bactrim Ds 800/160] - Allergies Allergies/Adverse Reactions: Allergies Allergy/AdvReac Type Severity Reaction Status Date / Time codeine Allergy Hives Verified 03/14/17 13:38 hydrocodone Allergy Hives Verified 03/14/17 13:38 milk AdvReac Cramps Verified 03/14/17 13:38 nitrofurantoin AdvReac Headache Verified 03/14/17 13:38 [From Macrobid] PAPER TAPE AdvReac Unknown Uncoded 03/14/17 13:38 Review of Systems - Constitutional Constitutional: reports: Fatigue, Malaise, Weakness, Weight loss - Eyes Eyes: reports: Blurred vision. denies: Pain, Irritation, Vision loss, Dipolpia - Ears, Nose & Throat Ears, Nose & Throat: denies: Ear pain, Hearing loss, Tinnitus, Vertigo - Cardiovascular Cariovascular: denies: Irregular heart rate, Palpitations, Edema, Syncope - Respiratory Respiratory: reports: Cough. denies: Sputum production, Wheezing, Hemoptysis, Orthopnea, SOB at rest, SOB with exertion - Gastrointestinal Gastrointestinal: denies: Abdominal pain, Constipation, Diarrhea, Rectal bleeding - Genitourinary Genitourinary: denies: Dysuria, Frequency, Urgency, Hematuria - Musculoskeletal Musculoskeletal: reports: Back pain, Muscle aches, Stiffness. denies: Muscle pain - Integumentary Integumentary: denies: Rash, Pruritis, Lesions, Dryness - Neurological Neurological: reports: General weakness. denies: Focal weakness, Headache, Dizziness - Psychiatric Psychiatric: denies: Depression, Anxiety, Suicidal, Hallucinations - Endocrine Endocrine: denies: Polyuria, Polydypsia, Polyphagia - Hematologic/Lymphatic Hematologic/Lymphatic: denies: Anemia, Bruising, Lymphadenopathy - All Other Systems All Other Systems: reports: Reviewed and negative Exam - Vital Signs Reviewed Vital Signs: Yes Vital Signs: Vital Signs x48h Temp Pulse Resp BP Pulse Ox 03/14/17 13:36 36.2 C L 112 H 18 107/65 100 - Physical Exam General Appearance: positive: No acute distress, Lethargic Eyes Bilateral: positive: Normal inspection, PERRL, EOMI, No lid inflammation, Conjunctivae nml, No scleral icterus ENT: positive: ENT inspection nml, Pharynx nml, Dry mucous membranes Neck: positive: Nml inspection, Thyroid nml, No JVD, Trachea midline. negative : Thyromegaly Respiratory: positive: Chest non-tender, No respiratory distress, Breath sounds nml. negative: Wheezes, Rales, Rhonchi Cardiovascular: positive: No murmur, No gallop, Tachycardia Peripheral Pulses: positive: 1+ Abdomen: positive: Non-tender, No organomegaly, Nml bowel sounds, No distention. negative: Guarding, Rebound Back: positive: Nml inspection. negative: CVA tenderness (R), CVA tenderness (L ) Skin: positive: Color nml, No rash, Warm, Dry. negative: Cyanosis Extremities: positive: Non-tender, Full ROM, Nml appearance, No pedal edema Neurologic/Psychiatric: positive: CN's nml (2-12), Motor nml, Sensation nml, Mood/affect nml Conclusion/Plan - Problem List (1) DKA, type 1 Conclusion/Plan: We will place the patient in the intensive care unit, start her on an insulin drip, and replace her fluids and electrolytes. Qualifiers: Diabetes mellitus complication detail: without coma Qualified Code(s): E10.10 - Type 1 diabetes mellitus with ketoacidosis without coma (2) Anxiety Conclusion/Plan: We will continue the patient on her previous psychiatric medications. If necessary we will place the patient on a benzodiazepine to help with her anxiety. (3) Borderline personality disorder Conclusion/Plan: We will continue the patient on her home medications for borderline personality disorder (4) Hyperkalemia Conclusion/Plan: We will monitor closely and expect the potassium to be driven back into the cells as the patient is rehydrated and her pH normalizes. (6) Methamphetamine abuse Conclusion/Plan: This is not a large concern as the patient will only become sleepy as a result of withdrawal from methamphetamine. (7) Homeless single person Conclusion/Plan: We will ask social insurance adviser to try to help the patient find housing. (8) Personal history of noncompliance with medical treatment Conclusion/Plan: We will reinforce with the patient the importance of compliance however whenever possible will tailor her medications so that they require a minimal amount of compliance. - Lab Results Fish Bones: 03/14/17 15:30 03/14/17 15:30 Core Measures - Anticipated LOS I expect patient to be DC'd or transferred within 96 hours.: Yes - DVT/VTE - Prophylaxis VTE/DVT Device ordered at admit?: Yes
[2017-03-14 16:39] LABS: HB2 TOTAL 12.6 g/dL; HEMOGLOBIN A1C 1.19 g/dL; HEMOGLOBIN A1C % 10.8 % (4.6-6.2)
[2017-03-14] MEDS ORDERED: cloNIDine 0.1 MG PATCH TOP SCH (17:00)
[2017-03-14 17:31] LABS: VBG BASE EXCESS -23.9 mmol/L (-2 - +2); VBG PCO2 17.5 mmHg (41-51); VBG PH 7.05 (7.31-7.41); VBG TOTAL CO2 5.3 mmol/L (24-29)
[2017-03-14 17:41] LABS: BUN - BLOOD UREA NITROGEN 42 mg/dL (6-20); CALCIUM 8.4 mg/dL (8.5-10.3); CHLORIDE 95 mmol/L (101-111); CREATININE 1.4 mg/dL (0.4-1.0); GFR - MDRD 43 (>89); MAGNESIUM 2.4 mg/dL (1.7-2.8); SODIUM 130 mmol/L (135-145)
[2017-03-14 17:43] LABS: CARBON DIOXIDE - CO2 < 6 mmol/L (21-32); GLUCOSE 616 mg/dL (70-100)
[2017-03-14] MEDS ORDERED: ACETAMINOPHEN 325 MG TABLET PO SCH (18:00)
[2017-03-14] MEDS: SODIUM CHLORIDE 0.9% 1,000 ML IV SCH (18:15)
[2017-03-14] MEDS: INSULIN ASPART 300 UNIT/3 ML PEN SUBQ SCH (18:25)
[2017-03-14 18:52] LABS: BUN - BLOOD UREA NITROGEN 41 mg/dL (6-20); CHLORIDE 95 mmol/L (101-111); CREATININE 1.3 mg/dL (0.4-1.0); GFR - MDRD 47 (>89); MAGNESIUM 2.5 mg/dL (1.7-2.8); SODIUM 132 mmol/L (135-145)
[2017-03-14 18:53] LABS: CARBON DIOXIDE - CO2 < 6 mmol/L (21-32)
[2017-03-14 18:54] LABS: GLUCOSE 545 mg/dL (70-100); KETONES, SERUM (ACETEST) MODERATE (NEGATIVE)
[2017-03-14] MEDS: SODIUM CHLORIDE FLUSH 0.9% 10 ML SYRINGE IVP SCH (21:05)
[2017-03-14] MEDS: GABAPENTIN 300 MG CAPSULE PO SCH (21:05)
[2017-03-14] MEDS: SULFAMETH/TRIMETH DS 800/160 MG TABLET PO SCH (21:05)
[2017-03-14] MEDS: CILOSTAZOL 100 MG TABLET PO SCH (21:05)
[2017-03-14] MEDS: METOPROLOL SUCCINATE 25 MG TABLET PO SCH (21:05)
[2017-03-14] MEDS: MELOXICAM 7.5 MG TABLET PO SCH (21:05)
[2017-03-14] MEDS: AMITRIPTYLINE 25 MG TABLET PO SCH (21:05)
[2017-03-14 21:52] LABS: BUN - BLOOD UREA NITROGEN 40 mg/dL (6-20); CALCIUM 8.9 mg/dL (8.5-10.3); CARBON DIOXIDE - CO2 6 mmol/L (21-32); CHLORIDE 97 mmol/L (101-111); CREATININE 1.2 mg/dL (0.4-1.0); GFR - MDRD 51 (>89); GLUCOSE 457 mg/dL (70-100); MAGNESIUM 2.5 mg/dL (1.7-2.8); SODIUM 134 mmol/L (135-145)
[2017-03-14] MEDS: PROCHLORPERAZINE INJ 10 MG in SODIUM CHLORIDE 0.9% 50 ML IV PRN (21:54)
[2017-03-14] MEDS ORDERED: INSULIN REGULAR HUMAN 100 UNIT in SODIUM CHLORIDE 0.9% 100ML 99 ML IV SCH (22:00)
[2017-03-14 22:08] LABS: KETONES, SERUM (ACETEST) MODERATE (NEGATIVE)
[2017-03-14] MEDS ORDERED: METOPROLOL 5 MG/5 ML VIAL IVP ONE (23:00)
[2017-03-15 00:35] LABS: GLUCOSE 393 mg/dL (70-100)
[2017-03-15 00:51] LABS: KETONES, SERUM (ACETEST) MODERATE (NEGATIVE)
[2017-03-15] MEDS: SODIUM CHLORIDE 0.9% 1,000 ML IV SCH ×2 (03:55→14:00)
[2017-03-15] MEDS: GABAPENTIN 300 MG CAPSULE PO SCH ×3 (05:38→21:13)
[2017-03-15] MEDS: SODIUM CHLORIDE FLUSH 0.9% 10 ML SYRINGE IVP SCH ×3 (05:38→21:13)
[2017-03-15 06:41] LABS: KETONES, SERUM (ACETEST) SMALL (NEGATIVE)
[2017-03-15 06:42] LABS: BUN - BLOOD UREA NITROGEN 45 mg/dL (6-20); CALCIUM 8.2 mg/dL (8.5-10.3); CARBON DIOXIDE - CO2 21 mmol/L (21-32); CHLORIDE 103 mmol/L (101-111); CREATININE 0.9 mg/dL (0.4-1.0); GFR - MDRD 71 (>89); GLUCOSE 178 mg/dL (70-100); SODIUM 134 mmol/L (135-145)
[2017-03-15] MEDS: INSULIN GLARGINE 300 UNIT/3 ML PEN SUBQ SCH (08:08)
[2017-03-15] MEDS: SULFAMETH/TRIMETH DS 800/160 MG TABLET PO SCH ×2 (08:09→21:13)
[2017-03-15] MEDS: METOPROLOL SUCCINATE 25 MG TABLET PO SCH ×2 (08:09→21:13)
[2017-03-15] MEDS: CILOSTAZOL 100 MG TABLET PO SCH ×2 (08:09→21:13)
[2017-03-15] MEDS: MELOXICAM 7.5 MG TABLET PO SCH ×2 (08:10→21:13)
[2017-03-15] MEDS: DULoxetine 20 MG CAPSULE ONE ×2 (08:13→08:16)
[2017-03-15] MEDS: INSULIN ASPART 300 UNIT/3 ML PEN SUBQ SCH ×7 (08:14→21:12)
[2017-03-15] MEDS: diltiaZEM CD 120 MG CAPSULE PO SCH (08:15)
[2017-03-15] MEDS: DULoxetine 20 MG CAPSULE PO SCH (08:17)
[2017-03-15 08:41] LABS: HB2 TOTAL 12.1 g/dL; HEMOGLOBIN A1C 1.16 g/dL; HEMOGLOBIN A1C % 10.9 % (4.6-6.2)
[2017-03-15] MEDS: oxyCODONE 5 MG TABLET PO PRN ×3 (13:07→21:15)
[2017-03-15] MEDS: PROCHLORPERAZINE INJ 10 MG in SODIUM CHLORIDE 0.9% 50 ML IV PRN (14:38)
--- NOTE | 2017-03-15 14:50 | PROVIDER PROGRESS NOTE ---
Subjective - Prog Note Date Prog Note Date: 03/15/17 Prog Note Time: 14:50 - Subjective Pt reports feeling: Improved (Pt feels better, not as weak but she is still quite tired.) Current Medications - Current Medications Current Medications: Acetaminophen, amitriptyline, Pletal, clonidine, diltiazem, duloxetine, gabapentin, insulin,Mobic, Robaxin, Oxycodone, Compazine, normal saline, Bactrim DS Objective - Vital Signs/Intake & Output Reviewed Vital Signs: Yes Vital Signs: Vital Signs Temp Pulse Resp BP BP Pulse Ox 03/15/17 14:00 108 H 12 108/66 03/15/17 13:00 103 H 19 113/85 H 03/15/17 12:00 111 H 19 124/95 H 03/15/17 11:00 36.3 C L 114 H 18 111/72 99 Intake & Output: Intake & Output 03/12/17 03/13/17 03/14/17 03/15/17 23:59 23:59 23:59 23:59 Intake Total 2989.590 5239.750 Output Total 600 1840 Balance 2389.590 3399.750 - Objective General Appearance: positive: No acute distress, Alert Eyes Bilateral: positive: Normal inspection, PERRL, EOMI, No lid inflammation, Conjunctivae nml, No scleral icterus ENT: positive: ENT inspection nml, Pharynx nml, No signs of dehydration Neck: positive: Nml inspection, Thyroid nml, No JVD, Trachea midline. negative : Thyromegaly Respiratory: positive: Chest non-tender, No respiratory distress, Breath sounds nml. negative: Wheezes, Rales, Rhonchi Cardiovascular: positive: No murmur, No gallop, Tachycardia Abdomen: positive: Non-tender, No organomegaly, Nml bowel sounds, No distention. negative: Tenderness Back: positive: Nml inspection. negative: CVA tenderness (R), CVA tenderness (L ) Skin: positive: Color nml, No rash, Warm, Dry, Other (Healing wounds noted to the patient's great toes and fourth toes bilaterally). negative: Cyanosis Extremities: positive: Non-tender, Full ROM, Nml appearance, No pedal edema Neurologic/Psychiatric: positive: Oriented x3, CN's nml (2-12), Motor nml, Sensation nml, Mood/affect nml - Lab Results [place]: 03/14/17 15:30 03/15/17 06:28 Other Labs: Lab Results x24hrs 03/15/17 03/15/17 03/15/17 Range/Units 12:00 07:51 07:50 VBG pH (7.31-7.41) VBG pCO2 (41-51) mmHg VBG pO2 (25-47) mmHg VBG HCO3 (23-28) mmol/L VBG Total CO2 (24-29) mmol/L VBG O2 Saturation (60-80) % VBG Base Excess (-2 - +2) mmol/L Sodium (135-145) mmol/L Potassium (3.5-5.0) mmol/L Chloride (101-111) mmol/L Carbon Dioxide (21-32) mmol/L Anion Gap (6-13) BUN (6-20) mg/dL Creatinine (0.4-1.0) mg/dL Estimated GFR (MDRD) (>89) Glucose (70-100) mg/dL Glycated Hemoglobin 10.9 H (4.6-6.2) % Estim Average Glucose 266 H (70-100) Lactic Acid (0.5-2.2) mmol/L Calcium (8.5-10.3) mg/dL Magnesium (1.7-2.8) mg/dL Troponin I (<0.49) ng/mL Serum Ketones NEGATIVE SMALL H (NEGATIVE) 03/15/17 03/15/17 03/15/17 Range/Units 07:50 06:28 04:19 VBG pH (7.31-7.41) VBG pCO2 (41-51) mmHg VBG pO2 (25-47) mmHg VBG HCO3 (23-28) mmol/L VBG Total CO2 (24-29) mmol/L VBG O2 Saturation (60-80) % VBG Base Excess (-2 - +2) mmol/L Sodium 134 L (135-145) mmol/L Potassium 3.9 (3.5-5.0) mmol/L Chloride 103 (101-111) mmol/L Carbon Dioxide 21 (21-32) mmol/L Anion Gap 10.0 (6-13) BUN 45 H (6-20) mg/dL Creatinine 0.9 (0.4-1.0) mg/dL Estimated GFR (MDRD) 71 L (>89) Glucose 178 H (70-100) mg/dL Glycated Hemoglobin (4.6-6.2) % Estim Average Glucose (70-100) Lactic Acid (0.5-2.2) mmol/L Calcium 8.2 L (8.5-10.3) mg/dL Magnesium (1.7-2.8) mg/dL Troponin I 0.06 (<0.49) ng/mL Serum Ketones SMALL H MODERATE H (NEGATIVE) 03/15/17 03/15/17 03/15/17 Range/Units 04:19 02:18 00:15 VBG pH (7.31-7.41) VBG pCO2 (41-51) mmHg VBG pO2 (25-47) mmHg VBG HCO3 (23-28) mmol/L VBG Total CO2 (24-29) mmol/L VBG O2 Saturation (60-80) % VBG Base Excess (-2 - +2) mmol/L Sodium (135-145) mmol/L Potassium (3.5-5.0) mmol/L Chloride (101-111) mmol/L Carbon Dioxide (21-32) mmol/L Anion Gap (6-13) BUN (6-20) mg/dL Creatinine (0.4-1.0) mg/dL Estimated GFR (MDRD) (>89) Glucose (70-100) mg/dL Glycated Hemoglobin (4.6-6.2) % Estim Average Glucose (70-100) Lactic Acid (0.5-2.2) mmol/L Calcium (8.5-10.3) mg/dL Magnesium (1.7-2.8) mg/dL Troponin I 0.06 0.04 (<0.49) ng/mL Serum Ketones MODERATE H (NEGATIVE) 03/15/17 03/14/17 03/14/17 Range/Units 00:15 22:50 21:28 VBG pH (7.31-7.41) VBG pCO2 (41-51) mmHg VBG pO2 (25-47) mmHg VBG HCO3 (23-28) mmol/L VBG Total CO2 (24-29) mmol/L VBG O2 Saturation (60-80) % VBG Base Excess (-2 - +2) mmol/L Sodium 134 L (135-145) mmol/L Potassium 5.9 H (3.5-5.0) mmol/L Chloride 97 L (101-111) mmol/L Carbon Dioxide 6 L* (21-32) mmol/L Anion Gap 31.0 H (6-13) BUN 40 H (6-20) mg/dL Creatinine 1.2 H (0.4-1.0) mg/dL Estimated GFR (MDRD) 51 L (>89) Glucose 393 H 449 H 457 H (70-100) mg/dL Glycated Hemoglobin (4.6-6.2) % Estim Average Glucose (70-100) Lactic Acid (0.5-2.2) mmol/L Calcium 8.9 (8.5-10.3) mg/dL Magnesium 2.5 (1.7-2.8) mg/dL Troponin I (<0.49) ng/mL Serum Ketones MODERATE H MODERATE H (NEGATIVE) 03/14/17 03/14/17 03/14/17 Range/Units 19:52 18:32 17:20 VBG pH (7.31-7.41) VBG pCO2 (41-51) mmHg VBG pO2 (25-47) mmHg VBG HCO3 (23-28) mmol/L VBG Total CO2 (24-29) mmol/L VBG O2 Saturation (60-80) % VBG Base Excess (-2 - +2) mmol/L Sodium 132 L (135-145) mmol/L Potassium 6.4 H* (3.5-5.0) mmol/L Chloride 95 L (101-111) mmol/L Carbon Dioxide < 6 L* (21-32) mmol/L Anion Gap 31.0 H (6-13) BUN 41 H (6-20) mg/dL Creatinine 1.3 H (0.4-1.0) mg/dL Estimated GFR (MDRD) 47 L (>89) Glucose 475 H 545 H* (70-100) mg/dL Glycated Hemoglobin (4.6-6.2) % Estim Average Glucose (70-100) Lactic Acid (0.5-2.2) mmol/L Calcium 9.0 (8.5-10.3) mg/dL Magnesium 2.5 (1.7-2.8) mg/dL Troponin I (<0.49) ng/mL Serum Ketones MODERATE H LARGE H (NEGATIVE) 03/14/17 03/14/17 03/14/17 Range/Units 17:20 17:20 17:20 VBG pH 7.050 L (7.31-7.41) VBG pCO2 17.5 L (41-51) mmHg VBG pO2 85.0 H (25-47) mmHg VBG HCO3 4.7 L (23-28) mmol/L VBG Total CO2 5.3 L (24-29) mmol/L VBG O2 Saturation 92.8 H (60-80) % VBG Base Excess -23.9 L (-2 - +2) mmol/L Sodium 130 L (135-145) mmol/L Potassium 6.4 H* (3.5-5.0) mmol/L Chloride 95 L (101-111) mmol/L Carbon Dioxide < 6 L* (21-32) mmol/L Anion Gap 29.0 H (6-13) BUN 42 H (6-20) mg/dL Creatinine 1.4 H (0.4-1.0) mg/dL Estimated GFR (MDRD) 43 L (>89) Glucose 616 H* (70-100) mg/dL Glycated Hemoglobin (4.6-6.2) % Estim Average Glucose (70-100) Lactic Acid 1.3 (0.5-2.2) mmol/L Calcium 8.4 L (8.5-10.3) mg/dL Magnesium 2.4 (1.7-2.8) mg/dL Troponin I (<0.49) ng/mL Serum Ketones (NEGATIVE) Assessment/Plan - Problem List (1) DKA, type 1 Impression: Patient is no longer in DKA. There are no longer any ketones in her urine and her lactate and lactic acid level was within normal limits. Her glucose is 178 , CO2 is within normal limits and creatinine is 0.9. Patient has been rehydrated and her potassium level has come down within normal limits. We will change her over to the sliding scale and move her to medical surgical bed. Her troponins were negative 4. Qualifiers: Diabetes mellitus complication detail: without coma Qualified Code(s): E10.10 - Type 1 diabetes mellitus with ketoacidosis without coma (2) Anxiety Impression: Well managed- the patient has Spent greater than 80% of her time sleeping. (3) Borderline personality disorder Impression: This has not been an issue to this point. We will continue to monitor. (4) Hyperkalemia Impression: Resolved. Rehydrating because the potassium of go from 6.9-3.9. (5) Hypertension Impression: Controlled. Blood pressure was 108/66 most recently.There have not been any hypertensive events in the last 48 hours. Qualifiers: Hypertension type: essential hypertension Qualified Code(s): I10 - Essential (primary) hypertension (6) Methamphetamine abuse Impression: Patient has not had any methamphetamine since her admission however this is of no concern as the withdrawal symptoms of methamphetamine are somnolence and sleeping. (7) Homeless single person Impression: Social work has been consulted (8) Personal history of noncompliance with medical treatment Impression: The importance of compliance with medical regimen has been once again stressed to the patient for an extended amount of time.
[2017-03-15] MEDS: FERROUS SULFATE 325 MG TABLET PO SCH (16:57)
[2017-03-15 20:11] LABS: BILIRUBIN,URINE NEGATIVE (NEGATIVE); GLUCOSE, URINE (UA) 500 mg/dL (NEGATIVE); KETONES,URINE (UA) NEGATIVE (NEGATIVE); LEUKOCYTE ESTERASE, URINE NEGATIVE (NEGATIVE); NITRITE,URINE NEGATIVE (NEGATIVE); OCCULT BLOOD,URINE NEGATIVE (NEGATIVE); PROTEIN,URINE NEGATIVE (NEGATIVE); UROBILINOGEN,URINE 0.2 (NORMAL) E.U./dL (NORMAL)
[2017-03-15 20:13] LABS: CLARITY,URINE CLEAR (CLEAR)
[2017-03-15] MEDS: AMITRIPTYLINE 25 MG TABLET PO SCH (21:13)
[2017-03-16] MEDS: SODIUM CHLORIDE 0.9% 1,000 ML IV SCH ×3 (00:23→23:55)
[2017-03-16] MEDS: oxyCODONE 5 MG TABLET PO PRN ×6 (01:13→23:58)
[2017-03-16] MEDS: SODIUM CHLORIDE FLUSH 0.9% 10 ML SYRINGE IVP SCH ×3 (06:33→21:57)
[2017-03-16] MEDS: GABAPENTIN 300 MG CAPSULE PO SCH ×3 (06:34→22:47)
[2017-03-16] MEDS: INSULIN ASPART 300 UNIT/3 ML PEN SUBQ SCH ×7 (08:25→20:16)
[2017-03-16] MEDS: CILOSTAZOL 100 MG TABLET PO SCH ×2 (08:48→20:23)
[2017-03-16] MEDS: SULFAMETH/TRIMETH DS 800/160 MG TABLET PO SCH (08:48)
[2017-03-16] MEDS: ACETAMINOPHEN 325 MG TABLET PO PRN ×2 (08:48→15:49)
[2017-03-16] MEDS: diltiaZEM CD 120 MG CAPSULE PO SCH (08:48)
[2017-03-16] MEDS: DULoxetine 20 MG CAPSULE PO SCH (08:48)
[2017-03-16] MEDS: METOPROLOL SUCCINATE 25 MG TABLET PO SCH ×2 (08:49→20:23)
[2017-03-16] MEDS: MELOXICAM 7.5 MG TABLET PO SCH ×2 (08:49→20:23)
[2017-03-16] MEDS: FERROUS SULFATE 325 MG TABLET PO SCH ×2 (08:49→17:26)
[2017-03-16 08:51] LABS: BASOPHILS # (AUTO) 0.1 10^3/uL (0.0-0.1); BASOPHILS % (AUTO) 0.8 %; EOSINOPHILS # (AUTO) 0.2 10^3/uL (0.0-0.7); EOSINOPHILS % (AUTO) 2.5 %; HGB - HEMOGLOBIN 9.8 g/dL (12.0-16.0); LYMPHOCYTES # (AUTO) 2.7 10^3/uL (1.5-3.5); LYMPHOCYTES % (AUTO) 37.8 %; MEAN CORPUSCULAR HGB CONC 31.9 g/dL (32.0-36.0); MEAN CORPUSCULAR VOLUME 75.4 fL (81.0-99.0); MONOCYTES # (AUTO) 0.5 10^3/uL (0.0-1.0); MONOCYTES % (AUTO) 6.7 %; NEUTROPHILS # (AUTO) 3.7 10^3/uL (1.5-6.6); NEUTROPHILS % (AUTO) 52.2 %; PLT - PLATELET COUNT 449 10^3/uL (130-450); RED BLOOD COUNT 4.08 10^6/uL (4.20-5.40); RED CELL DISTRIBUTION WIDTH 17.3 % (12.0-15.0); WHITE BLOOD COUNT 7.1 x10^3/uL (4.8-10.8)
[2017-03-16 09:05] LABS: ALKALINE PHOSPHATASE 204 IU/L (42-121); ALT ALANINE AMINOTRANSFERASE 52 IU/L (10-60); AST ASPARTATE AMINOTRANSFERASE 45 IU/L (10-42); BILIRUBIN,TOTAL 0.6 mg/dL (0.2-1.0); BUN - BLOOD UREA NITROGEN 22 mg/dL (6-20); CALCIUM 8.4 mg/dL (8.5-10.3); CARBON DIOXIDE - CO2 23 mmol/L (21-32); CHLORIDE 102 mmol/L (101-111); CREATININE 0.6 mg/dL (0.4-1.0); GFR - MDRD 114 (>89); GLUCOSE 366 mg/dL (70-100); SODIUM 134 mmol/L (135-145); TOTAL PROTEIN 5.9 g/dL (6.7-8.2)
[2017-03-16] MEDS: INSULIN GLARGINE 300 UNIT/3 ML PEN SUBQ SCH (09:42)
[2017-03-16] MEDS ORDERED: PIPERACILLIN/TAZOBACTAM 3.375 GM in SODIUM CHLORIDE 0.9% MINIBAG 100 ML IV SCH (11:00)
[2017-03-16] MEDS ORDERED: VANCOMYCIN PER PHARMACY 1 GM in SODIUM CHLORIDE 0.9% 250 ML IV SCH (11:00)
[2017-03-16] MEDS: CEFEPIME 2 GM in SODIUM CHLORIDE 0.9% MINIBAG 100 ML IV SCH ×2 (12:13→22:47)
[2017-03-16] MEDS: VANCOMYCIN INJ 1 GM in SODIUM CHLORIDE 0.9% 250 ML IV SCH ×2 (12:50→20:23)
[2017-03-16] MEDS ORDERED: LORazepam 2 MG/ML VIAL IVP SCH (13:00)
[2017-03-16] MEDS: NICOTINE 21 MG PATCH TOP SCH (14:34)
--- NOTE | 2017-03-16 14:54 | PROCEDURE REPORT ---
Hospitalist Procedure Note - Procedure Note Procedure Note: Initial PICC line attempted using Right basilic vein. After informed consent obtained and timeout, Patient was prepped with chlorohexadine and draped in sterile fashion. 1% lidocaine was used to localize skin and the vein was accessed using a 20 G. needle. Wire advanced without resistance. The PICC catheter was advanced and was unable to place line in the superior vena cava as line continued to thread in the Right IJ vein. Patient requested a break from procedure in order to eat lunch. Will attempt again this afternoon.
--- NOTE | 2017-03-16 17:16 | XRAY Report ---
DATE OF SERVICE: 03/16/2017 THREE VIEW RIGHT FOOT: 03/16/2017 CLINICAL INDICATION: Infection of big toe. AP, lateral, oblique views of the right foot demonstrate osteolysis of the distal tuft of the great toe, compatible with osteomyelitis, with overlying soft tissue swelling. No foreign body is seen. The joint spaces are preserved. IMPRESSION: Osteomyelitis of the distal tuft of the great toe. Results called to Dr. Mathews on 03/16/2017 at 9:50 a.m. TD: 03/16/2017 18:15
--- NOTE | 2017-03-16 17:17 | XRAY Report ---
DATE OF SERVICE: 03/16/2017 FRONTAL CHEST: 03/16/2017 CLINICAL INDICATION: PICC placement. Frontal view of the chest, excluding the right costophrenic angle, demonstrates a normal cardiac silhouette. Right arm PICC extends up the right neck. IMPRESSION: Right arm PICC extending up the right jugular vein. TD: 03/16/2017 18:16
--- NOTE | 2017-03-16 17:59 | XRAY Report ---
EXAM: CHEST RADIOGRAPHY EXAM DATE: 03/16/2017 04:50 PM. CLINICAL HISTORY: Line placement. COMPARISON: 03/16/2017. TECHNIQUE: 1 view. FINDINGS: Lungs/Pleura: No focal opacities evident. No pleural effusion. No pneumothorax. Mediastinum: Within exam limitations, the cardiomediastinal contour is normal. Other: Left approach PICC tip is in the right atrium. The tip is approximately 3 cm below the cavoatr ial junction. IMPRESSION: 1. Left approach PICC tip is in the right atrium. The tip is approximately 3 cm below the cavoatrial junction. 2. Lungs remain clear. [facility] Referring Provider Line: [phone] SITE ID: [id number]
--- NOTE | 2017-03-16 18:51 | PROVIDER PROGRESS NOTE ---
Assessment/Plan - Problem List (1) Osteomyelitis of toe of left foot Assessment/Plan: Patient has infected big toe on left foot and was on bactrim as an outpatient Toe is very tender, swollen with purulent drainage XRay of the foot shows osteomyelitis of the distal tuft of great toe Plan: PICC line IV vancomycin and cefepime Ortho consult for likely amputation vs debridement (2) DKA, type 1 Impression: Resolved On Lantus 60 units daily SS insulin with meals Dm diet BG improved Qualifiers: Diabetes mellitus complication detail: without coma Qualified Code(s): E10.10 - Type 1 diabetes mellitus with ketoacidosis without coma (3) Anxiety Impression: Stable Asked for ativan before PICC line (4) Borderline personality disorder Impression: This has not been an issue to this point. We will continue to monitor. (5) Hypertension Impression: Controlled. Continue metoprolol, diltiazem and clonidine Qualifiers: Hypertension type: essential hypertension Qualified Code(s): I10 - Essential (primary) hypertension (6) Methamphetamine abuse Impression: Patient has not had any methamphetamine since her admission however this is of no concern as the withdrawal symptoms of methamphetamine are somnolence and sleeping. (7) Homeless single person Impression: Social work has been consulted (8) Personal history of noncompliance with medical treatment Impression: The importance of compliance with medical regimen has been once again stressed to the patient for an extended amount of time. (9) Tobacco Abuse Impression: Nicotine patch Counseled - Current Meds Current Meds: Current Medications Generic Name Dose Route Start Last Admin Trade Name Freq PRN Reason Stop Dose Admin Acetaminophen 650 mg 03/14/17 21:48 03/16/17 15:49 Tylenol PO 650 mg Q6HR PRN Administration Pain or Fever > 38C (100.4F) Amitriptyline HCl 50 mg 03/14/17 21:00 03/15/17 21:13 Elavil PO 50 mg QPM SYLVIA Administration Cilostazol 100 mg 03/14/17 21:00 03/16/17 08:48 Pletal PO 100 mg BID SYLVIA Administration Clonidine HCl 1 patch 03/14/17 17:00 03/14/17 18:01 [id number] TOP 1 patch Q7D SYLVIA Administration Diltiazem HCl 120 mg 03/15/17 09:00 03/16/17 08:48 Cardizem Cd PO 120 mg DAILY SYLVIA Administration Duloxetine HCl 40 mg 03/15/17 09:00 03/16/17 08:48 Cymbalta PO 40 mg DAILY SYLVIA Administration Ferrous Sulfate 325 mg 03/15/17 17:00 03/16/17 17:26 Feosol PO 325 mg BIDWM SYLVIA Administration Gabapentin 300 mg 03/14/17 22:00 03/16/17 14:33 Neurontin PO 300 mg TID SYLVIA Administration Sodium Chloride 1,000 mls @ 100 mls/hr 03/14/17 17:00 03/16/17 18:00 Normal Saline 0.9% IV 100 mls/hr .Q10H SYLVIA Infusion Prochlorperazine Edisylate 10 52 mls @ 200 mls/hr 03/14/17 21:48 03/15/17 15: 00 mg/ Sodium Chloride IV Infused Q6H PRN Infusion Nausea / Vomiting Vancomycin HCl 1 gm/ Sodium 250 mls @ 167 mls/hr 03/16/17 12:00 03/16/17 14: 20 Chloride IV Infused Q8H SYLVIA Infusion Cefepime HCl 2 gm/ Sodium 100 mls @ 200 mls/hr 03/16/17 11:00 03/16/17 12:43 Chloride IV Infused Q12H SYLVIA Infusion Insulin Aspart 10 unit 03/14/17 17:00 03/16/17 17:26 Novolog SUBQ 10 unit TIDWM SYLVIA Administration Insulin Aspart 3 - 11 unit 03/16/17 12:00 03/16/17 17:26 Novolog SUBQ 5 unit 0800,1200,1700,2100 SYLVIA Administration Protocol Insulin Glargine 60 unit 03/15/17 09:00 03/16/17 09:42 Lantus Solostar SUBQ 60 unit DAILY SYLVIA Administration Meloxicam 7.5 mg 03/14/17 21:00 03/16/17 08:49 Mobic PO 7.5 mg BID SYLVIA Administration Metoprolol Succinate 25 mg 03/14/17 21:00 03/16/17 08:49 Toprol Xl PO 25 mg BID SYLVIA Administration Nicotine 1 patch 03/16/17 14:00 03/16/17 14:34 Nicoderm TOP 1 patch DAILY SYLVIA Administration Oxycodone HCl 5 mg 03/15/17 12:28 03/16/17 15:48 Roxicodone PO 5 mg Q4HR PRN Administration PAIN Sodium Chloride 10 ml 03/14/17 22:00 03/16/17 14:34 Normal Saline Flush 0.9% IVP Not Given Q8HR SYLVIA - Lab Result Lab results reviewed: Yes Fish Bone Diagrams: 03/16/17 08:35 03/16/17 08:35 - Diagnostic Imaging Results Diagnostic Imaging Results: Final report reviewed - Additional Planning Condition/Complexity: Guarded My Orders: My Active Orders 03/16/17 10:10 PICC Line Insert [RC] .ONCE 03/16/17 10:26 CUL,WOUND (AEROBIC) [RM] Urgent 03/16/17 11:00 Cefepime 2 gm Sodium Chloride 0.9% Minibag [Normal Saline 0.9% Minibag] 100 ml IV Q12H 03/16/17 12:00 Insulin Aspart [NovoLOG] 3 - 11 unit SUBQ 0800,1200,1700,2100 Vancomycin Inj [Vancomycin] 1 gm Sodium Chloride 0.9% [Normal Saline 0.9%] 250 ml IV Q8H 03/16/17 14:00 Nicotine 21 mg Patch [Nicoderm] 1 patch TOP DAILY Consult/Specialty: Other (Ortho) Plan Discussed with:: Patient Time Spent: 31-60 minutes Subjective - Subjective Patient Reports: Other (Complaining of pain in the left big toe) Nursing Reports: No Complaints Objective Vital Signs: Vital Signs - 24 hr 03/15/17 03/16/17 03/16/17 21:00 01:00 05:00 Temperature 36.2 C L 36.6 C 36.0 C L Heart Rate [ 94 90 81 Monitoring electrodes] Respiratory 18 18 14 Rate Blood Pressure 128/80 108/67 112/74 [Right Brachial artery] O2 Saturation 97 97 96 03/16/17 03/16/17 03/16/17 07:54 09:38 14:43 Temperature 36.5 C 36.8 C 36.6 C Heart Rate [ 95 88 Monitoring electrodes] Respiratory 16 17 Rate Blood Pressure 112/74 114/73 [Right Brachial artery] O2 Saturation 99 98 Oxygen O2 Source Room air I&O (Last 24 Hrs): Intake and Output Totals x24h 03/14/17 03/15/17 03/16/17 23:59 23:59 23:59 Intake Total 2989.590 7101.083 4338.335 Output Total 600 4990 1900 Balance 2389.590 2111.083 2438.335 General: Alert, Oriented x3, Cooperative, Mild distress (Pain in the left foot) HEENT: Atraumatic, PERRLA, EOMI, Mucous membr. moist/pink Neck: Supple, No JVD, No thyromegaly, +2 carotid pulse wo bruit, No LAD Lymphatic: no adenopathy Neuro: Alert, Non Focal, CN 2-12 Grossly Intact, Oriented Times 3 Cardiovascular: Regular rate, Normal S1, Normal S2, No murmurs Respiratory: Chest non-tender, No respiratory distress, Breath sounds nml Abdomen: Normal bowel sounds, Soft, No tenderness, No hepatospenomegaly Extremities: No clubbing, No cyanosis, Normal pulses, Other (Left big toe with purulent drainage at the tip of the toe. Swollen, tender with redness.) Comments/Notes: As above left big toe - Results Results: Laboratory Results WBC 7.1 x10^3/uL (4.8-10.8) 03/16/17 08:35 RBC 4.08 10^6/uL (4.20-5.40) L 03/16/17 08:35 Hgb 9.8 g/dL (12.0-16.0) L 03/16/17 08:35 Hct 30.7 % (37.0-47.0) L 03/16/17 08:35 MCV 75.4 fL (81.0-99.0) L 03/16/17 08:35 MCH 24.0 pg (27.0-31.0) L 03/16/17 08:35 MCHC 31.9 g/dL (32.0-36.0) L 03/16/17 08:35 RDW 17.3 % (12.0-15.0) H 03/16/17 08:35 Plt Count 449 10^3/uL (130-450) 03/16/17 08:35 MPV 7.0 fL (7.9-10.8) L 03/16/17 08:35 Neut # 3.7 10^3/uL (1.5-6.6) 03/16/17 08:35 Lymph # 2.7 10^3/uL (1.5-3.5) 03/16/17 08:35 [place] # 0.5 10^3/uL (0.0-1.0) 03/16/17 08:35 Eos # 0.2 10^3/uL (0.0-0.7) 03/16/17 08:35 Baso # 0.1 10^3/uL (0.0-0.1) 03/16/17 08:35 Absolute Nucleated RBC 0.00 x10^3/uL 03/16/17 08:35 Nucleated RBC % 0.0 /100WBC 03/16/17 08:35 Manual Slide Review Indicated 03/14/17 15:30 Platelet Estimate INCREASED (>450,000) (NORMAL) 03/14/17 15:30 Platelet Morphology 1+ LARGE PLATELETS (NORMAL) 03/14/17 15:30 RBC Morph Micro Appear 1+ ANISOCYTOSIS (NORMAL) 03/14/17 15:30 VBG pH 7.050 (7.31-7.41) L 03/14/17 17:20 VBG pCO2 17.5 mmHg (41-51) L 03/14/17 17:20 VBG pO2 85.0 mmHg (25-47) H 03/14/17 17:20 VBG HCO3 4.7 mmol/L (23-28) L 03/14/17 17:20 VBG Total CO2 5.3 mmol/L (24-29) L 03/14/17 17:20 VBG O2 Saturation 92.8 % (60-80) H 03/14/17 17:20 VBG Base Excess -23.9 mmol/L (-2 - +2) L 03/14/17 17:20 Sodium 134 mmol/L (135-145) L 03/16/17 08:35 Potassium 4.1 mmol/L (3.5-5.0) 03/16/17 08:35 Chloride 102 mmol/L (101-111) 03/16/17 08:35 Carbon Dioxide 23 mmol/L (21-32) 03/16/17 08:35 Anion Gap 9.0 (6-13) 03/16/17 08:35 BUN 22 mg/dL (6-20) H 03/16/17 08:35 Creatinine 0.6 mg/dL (0.4-1.0) 03/16/17 08:35 Estimated GFR (MDRD) 114 (>89) 03/16/17 08:35 Glucose 366 mg/dL (70-100) H 03/16/17 08:35 POC Whole Bld Glucose 186 mg/dL (70 - 100) H 03/16/17 16:51 Glycated Hemoglobin 10.9 % (4.6-6.2) H 03/15/17 07:51 Estim Average Glucose 266 (70-100) H 03/15/17 07:51 Lactic Acid 1.3 mmol/L (0.5-2.2) 03/14/17 17:20 Calcium 8.4 mg/dL (8.5-10.3) L 03/16/17 08:35 Ionized Calcium NO 03/16/17 08:35 Magnesium 2.5 mg/dL (1.7-2.8) 03/14/17 21:28 Total Bilirubin 0.6 mg/dL (0.2-1.0) 03/16/17 08:35 AST 45 IU/L (10-42) H 03/16/17 08:35 ALT 52 IU/L (10-60) 03/16/17 08:35 Alkaline Phosphatase 204 IU/L (42-121) H 03/16/17 08:35 Troponin I 0.06 ng/mL (<0.49) 03/15/17 07:50 Total Protein 5.9 g/dL (6.7-8.2) L 03/16/17 08:35 Albumin 3.0 g/dL (3.2-5.5) L 03/16/17 08:35 Globulin 2.9 g/dL (2.1-4.2) 03/16/17 08:35 Albumin/Globulin Ratio 1.0 (1.0-2.2) 03/16/17 08:35 Serum HCG, Qual NEGATIVE 03/14/17 15:30 Urine Color YELLOW 03/15/17 19:55 Urine Clarity CLEAR (CLEAR) 03/15/17 19:55 Urine pH 6.0 PH (5.0-7.5) 03/15/17 19:55 Ur Specific [place] 1.010 (1.002-1.030) 03/15/17 19:55 Urine Protein NEGATIVE mg/dL (NEGATIVE) 03/15/17 19:55 Urine Glucose (UA) 500 mg/dL (NEGATIVE) H 03/15/17 19:55 Urine Ketones NEGATIVE mg/dL (NEGATIVE) 03/15/17 19:55 Urine Occult Blood NEGATIVE (NEGATIVE) 03/15/17 19:55 Urine Nitrite NEGATIVE (NEGATIVE) 03/15/17 19:55 Urine Bilirubin NEGATIVE (NEGATIVE) 03/15/17 19:55 Urine Urobilinogen 0.2 (NORMAL) E.U./dL (NORMAL) 03/15/17 19:55 Ur Leukocyte Esterase NEGATIVE (NEGATIVE) 03/15/17 19:55 Ur Microscopic Review NOT INDICATED 03/15/17 19:55 Urine Culture Comments NOT INDICATED 03/15/17 19:55 Serum Ketones NEGATIVE (NEGATIVE) 03/15/17 12:00 - Procedures Procedures: Procedures INSERT INFUSION DEV IN R INT JUGULAR VEIN, PERC (04/21/16) INSERTION OF INFUSION DEV INTO SUP VENA CAVA, PERC APPROACH (12/21/16) INSERTION OF INFUSION DEVICE INTO R ATRIUM, PERC APPROACH (12/04/15) TRANSFUSE NONAUT RED BLOOD CELLS IN PERIPH VEIN, PERC (01/22/17) ULTRASONOGRAPHY OF RIGHT JUGULAR VEINS, GUIDANCE (04/21/16)
[2017-03-16] MEDS: AMITRIPTYLINE 25 MG TABLET PO SCH (20:23)
[2017-03-17] MEDS: SODIUM CHLORIDE 0.9% 1,000 ML IV SCH (03:25)
[2017-03-17] MEDS: VANCOMYCIN INJ 1 GM in SODIUM CHLORIDE 0.9% 250 ML IV SCH ×3 (04:14→20:03)
[2017-03-17] MEDS: oxyCODONE 5 MG TABLET PO PRN ×3 (04:15→11:46)
[2017-03-17] MEDS: SODIUM CHLORIDE FLUSH 0.9% 10 ML SYRINGE IVP PRN ×2 (04:15→20:03)
[2017-03-17] MEDS: GABAPENTIN 300 MG CAPSULE PO SCH (06:03)
[2017-03-17] MEDS: SODIUM CHLORIDE FLUSH 0.9% 10 ML SYRINGE IVP SCH ×3 (06:03→22:25)
[2017-03-17] MEDS: diltiaZEM CD 120 MG CAPSULE PO SCH (07:52)
[2017-03-17] MEDS: CILOSTAZOL 100 MG TABLET PO SCH ×2 (07:52→20:09)
[2017-03-17] MEDS: METOPROLOL SUCCINATE 25 MG TABLET PO SCH ×2 (07:52→20:09)
[2017-03-17] MEDS: DULoxetine 20 MG CAPSULE PO SCH (07:53)
[2017-03-17] MEDS: FERROUS SULFATE 325 MG TABLET PO SCH ×2 (07:54→17:07)
[2017-03-17] MEDS: NICOTINE 21 MG PATCH TOP SCH ×2 (07:54→20:10)
[2017-03-17] MEDS: INSULIN ASPART 300 UNIT/3 ML PEN SUBQ SCH ×8 (08:00→20:14)
--- NOTE | 2017-03-17 09:28 | XRAY Report ---
DATE OF SERVICE: FRONTAL CHEST: 03/16/2017 CLINICAL INDICATION: PICC repositioning. FINDINGS: Frontal view of the chest is compared to previous film of 1139 and 08 seconds. Right arm PICC has been pulled back, with its tip in the medial subclavian vein. No other significant change. IMPRESSION: RIGHT ARM PICC NOW TERMINATING IN THE MEDIAL RIGHT SUBCLAVIAN VEIN. TD: 03/17/2017 10:27
--- NOTE | 2017-03-17 09:30 | XRAY Report ---
DATE OF SERVICE: FRONTAL CHEST: 0-03/16/2017 CLINICAL INDICATION: PICC repositioning. FINDINGS: Frontal view of the chest is compared to previous film of 1139 hours and 51 seconds. Right arm PICC extends up the right jugular vein. No other significant interval change. IMPRESSION: RIGHT ARM PICC EXTENDING UP THE RIGHT JUGULAR VEIN. TD: 03/17/2017 10:29
--- NOTE | 2017-03-17 09:32 | XRAY Report ---
DATE OF SERVICE: FRONTAL CHEST: 03/16/2017 CLINICAL INDICATION: PICC repositioning. FINDINGS: Frontal view of the chest is compared to film of 1141 hours. Right arm PICC has been pulled back into the medial right subclavian vein. No other significant change. IMPRESSION: RIGHT ARM PICC IN THE MEDIAL RIGHT SUBCLAVIAN VEIN. TD: 03/17/2017 10:31
--- NOTE | 2017-03-17 09:35 | XRAY Report ---
DATE OF SERVICE: 03/16/2017 FRONTAL CHEST: 03/16/2017 CLINICAL INDICATION: PICC repositioning. FINDINGS: Frontal view of the chest is compared to previous film of 1142 hours. Right arm PICC extends up the right jugular vein. No other significant interval change. ASSESSMENT: RIGHT ARM PICC EXTENDING UP THE RIGHT JUGULAR VEIN. TD: 03/17/2017 10:33
--- NOTE | 2017-03-17 09:36 | XRAY Report ---
DATE OF SERVICE: FRONTAL CHEST: 03/16/2017 CLINICAL INDICATION: PICC repositioning. FINDINGS: Frontal view of the chest is compared to previous film of 1143 hours. A right arm PICC again extends up the right jugular vein. No other significant interval change. ASSESSMENT: RIGHT ARM PICC EXTENDING UP THE RIGHT JUGULAR VEIN. TD: 03/17/2017 10:35
[2017-03-17] MEDS: INSULIN GLARGINE 300 UNIT/3 ML PEN SUBQ SCH (09:46)
[2017-03-17] MEDS: MELOXICAM 7.5 MG TABLET PO SCH ×2 (09:48→20:09)
[2017-03-17] MEDS: CEFEPIME 2 GM in SODIUM CHLORIDE 0.9% MINIBAG 100 ML IV SCH ×2 (10:50→22:24)
[2017-03-17] MEDS ORDERED: SODIUM CHLORIDE 0.9% 500 ML IV ONE (11:01)
[2017-03-17] MEDS: METHOCARBAMOL 500 MG TABLET PO PRN (11:36)
[2017-03-17] MEDS ORDERED: BACITRACIN OINT TOP ONE (11:58)
[2017-03-17] MEDS: GABAPENTIN 400 MG CAPSULE PO SCH ×2 (13:08→20:50)
--- NOTE | 2017-03-17 13:10 | PROVIDER PROGRESS NOTE ---
Subjective - Prog Note Date Prog Note Date: 03/17/17 Prog Note Time: 13:08 - Subjective Pt reports feeling: No change (Chronic right great toe pain. Hx of recurrent ulceration of the tips of multiple toes. Has had draining granulating wound on the tip of right great toe for some time. Repeated admission to hospital for poorly controlled DM/diabetic ketoacidosis.) Objective - Vital Signs/Intake & Output Vital Signs: Vital Signs x48h Temp Pulse Resp BP Pulse Ox 03/17/17 09:22 36.5 C 114 H 18 149/97 H 97 03/17/17 06:55 36.5 C 101 H 20 132/92 H 98 Intake & Output: Intake & Output 03/14/17 03/15/17 03/16/17 03/17/17 23:59 23:59 23:59 23:59 Intake Total 2989.590 7101.083 5005.001 1500 Output Total 600 4990 1900 Balance 2389.590 2111.083 3105.001 1500 - Lab Results Fish Bones: 03/16/17 08:35 03/16/17 08:35 Other Labs: Lab Results x24hrs 03/17/17 03/17/17 03/17/17 Range/Units 11:38 07:50 05:21 POC Whole Bld Glucose 172 H 216 H 279 H (70 - 100) mg/dL 03/16/17 03/16/17 Range/Units 20:07 16:51 POC Whole Bld Glucose 232 H 186 H (70 - 100) mg/dL - Diagnostic Imaging Diagnostic Imaging Comments: XR shows bony destruction right great toe distal tuft, consistent with osteomyelitis - Other Results/Comments Other Results/Comments: EXAM: granulating ulcaration wound over the tip of right great toe. Sensation - poor sensation, although quite tender to touch. 1-2+ swollen with mild erythema of the tip of toe. No lymphangitis. Assessment/Plan - Problem List (1) Diabetic ulcer of toe associated with type 1 diabetes mellitus Impression: Has associated osteomyelitis of right great toe distal tuft PLAN: After discussion of treatment options, she has agreed to a partial right great toe amputation tomorrow AM. The risks ands benefits of surgery explained. She is aware that future surgery may be necessary in view of her current infection and compromised sensation ands circulation due to her diabetes. Consent signed. Leg marked. Qualifiers: Laterality: right Non-pressure ulcer stage: with other severity Qualified Code(s): E10.621 - Type 1 diabetes mellitus with foot ulcer; L97.518 - Non-pressure chronic ulcer of other part of right foot with other specified severity; L97.518 - Non-pressure chronic ulcer of other part of right foot with other specified severity
[2017-03-17] MEDS ORDERED: LORazepam 2 MG/ML VIAL IVP ONE (13:30)
--- NOTE | 2017-03-17 13:59 | PROVIDER PROGRESS NOTE ---
Assessment/Plan - Problem List (1) Osteomyelitis of toe of left foot Assessment/Plan: Patient has infected big toe on left foot and was on bactrim as an outpatient Toe is very tender, swollen with purulent drainage XRay of the foot shows osteomyelitis of the distal tuft of great toe PICC line placed yesterday IV vancomycin and cefepime day 2 Ortho consulted and will do amputation tomorrow morning Patient in a lot of pain therefore will switch oxycodone to dilaudid PO Wound cx growing staph aureus and beta hemolytic strep with susceptibilities pending (2) DKA, type 1 Impression: Resolved On Lantus 60 units daily SS insulin with meals Dm diet BG stable Qualifiers: Diabetes mellitus complication detail: without coma Qualified Code(s): E10.10 - Type 1 diabetes mellitus with ketoacidosis without coma (3) Anxiety Impression: Very anxious today after she was talked to about the amputation Given one time dose of ativan IV (4) Borderline personality disorder Impression: Crying today and seems to be trying to manipulate for more pain medication. We will continue to monitor. (5) Hypertension Impression: Controlled. Continue metoprolol, diltiazem and clonidine Qualifiers: Hypertension type: essential hypertension Qualified Code(s): I10 - Essential (primary) hypertension (6) Methamphetamine abuse Impression: Patient has not had any methamphetamine since her admission however this is of no concern as the withdrawal symptoms of methamphetamine are somnolence and sleeping. (7) Homeless single person Impression: Social work has been consulted (8) Personal history of noncompliance with medical treatment Impression: The importance of compliance with medical regimen has been once again stressed to the patient for an extended amount of time. (9) Tobacco Abuse Impression: Nicotine patch Counseled - Current Meds Current Meds: Current Medications Generic Name Dose Route Start Last Admin Trade Name Freq PRN Reason Stop Dose Admin Acetaminophen 650 mg 03/14/17 21:48 03/16/17 15:49 Tylenol PO 650 mg Q6HR PRN Administration Pain or Fever > 38C (100.4F) Amitriptyline HCl 50 mg 03/14/17 21:00 03/16/17 20:23 Elavil PO 50 mg QPM SYLVIA Administration Cilostazol 100 mg 03/14/17 21:00 03/17/17 07:52 Pletal PO 100 mg BID SYLVIA Administration Clonidine HCl 1 patch 03/14/17 17:00 03/14/17 18:01 [id number]-[id number] TOP 1 patch Q7D SYLVIA Administration Diltiazem HCl 120 mg 03/15/17 09:00 03/17/17 07:52 Cardizem Cd PO 120 mg DAILY SYLVIA Administration Duloxetine HCl 40 mg 03/15/17 09:00 03/17/17 07:53 Cymbalta PO 40 mg DAILY SYLVIA Administration Ferrous Sulfate 325 mg 03/15/17 17:00 03/17/17 07:54 Feosol PO 325 mg BIDWM SYLVIA Administration Gabapentin 400 mg 03/17/17 12:30 03/17/17 13:08 Neurontin PO 400 mg TID SYLVIA Administration Sodium Chloride 1,000 mls @ 100 mls/hr 03/14/17 17:00 03/17/17 03:25 Normal Saline 0.9% IV 0 mls/hr .Q10H SYLVIA Infusion Prochlorperazine Edisylate 10 52 mls @ 200 mls/hr 03/14/17 21:48 03/15/17 15: 00 mg/ Sodium Chloride IV Infused Q6H PRN Infusion Nausea / Vomiting Vancomycin HCl 1 gm/ Sodium 250 mls @ 167 mls/hr 03/16/17 12:00 03/17/17 12: 00 Chloride IV 167 mls/hr Q8H SYLVIA Administration Cefepime HCl 2 gm/ Sodium 100 mls @ 200 mls/hr 03/16/17 11:00 03/17/17 10:50 Chloride IV 200 mls/hr Q12H SYLVIA Administration Insulin Aspart 10 unit 03/14/17 17:00 03/17/17 12:00 Novolog SUBQ 10 unit TIDWM SYLVIA Administration Insulin Aspart 3 - 11 unit 03/16/17 12:00 03/17/17 12:00 Novolog SUBQ 3 unit 0800,1200,1700,2100 SYLVIA Administration Protocol Insulin Glargine 60 unit 03/15/17 09:00 03/17/17 09:46 Lantus Solostar SUBQ 60 unit DAILY SYLVIA Administration Meloxicam 7.5 mg 03/14/17 21:00 03/17/17 09:48 Mobic PO 7.5 mg BID SYLVIA Administration Methocarbamol 750 mg 03/17/17 10:40 03/17/17 11:36 Robaxin PO 750 mg BID PRN Administration Spasms Metoprolol Succinate 25 mg 03/14/17 21:00 03/17/17 07:52 Toprol Xl PO 25 mg BID SYLVIA Administration Nicotine 1 patch 03/16/17 14:00 03/17/17 07:54 Nicoderm TOP 1 patch DAILY SYLVIA Administration Sodium Chloride 10 ml 03/14/17 22:00 03/17/17 06:03 Normal Saline Flush 0.9% IVP 10 ml Q8HR SYLVIA Administration Sodium Chloride 10 ml 03/14/17 16:18 03/17/17 04:15 Normal Saline Flush 0.9% IVP 20 ml PRN PRN Administration NEEDED PER PROVIDER ORDERS - Lab Result Fish Bone Diagrams: 03/16/17 08:35 03/16/17 08:35 - Diagnostic Imaging Results Diagnostic Imaging Results: Final report reviewed Diagnostic Imaging Results Comments: EXAM: [id number] XR/FTR ([id number]) DATE OF SERVICE: 03/16/2017 THREE VIEW RIGHT FOOT: 03/16/2017 CLINICAL INDICATION: Infection of big toe. AP, lateral, oblique views of the right foot demonstrate osteolysis of the distal tuft of the great toe, compatible with osteomyelitis, with overlying soft tissue swelling. No foreign body is seen. The joint spaces are preserved. IMPRESSION: Osteomyelitis of the distal tuft of the great toe. - Additional Planning Condition/Complexity: Guarded My Orders: My Active Orders 03/16/17 14:00 Nicotine 21 mg Patch [Nicoderm] 1 patch TOP DAILY 03/17/17 Orthopedics Consult [CONS] Routine 03/17/17 10:40 Methocarbamol [Robaxin] 750 mg PO BID PRN 03/17/17 12:30 Gabapentin [Neurontin] 400 mg PO TID 03/17/17 13:30 HYDROmorphone [Dilaudid] 4 mg PO Q4HR PRN 03/17/17 17:00 Saccharomyces Boulardii [Florastor] 250 mg PO BIDWM 03/18/17 05:00 CBC W/O DIFF (HEMOGRAM) [HEME] DAILYLAB CMP, RFLX TO IONIZED CA IF [CHEM] DAILYLAB MAGNESIUM [CHEM] DAILYLAB PHOSPHORUS [CHEM] DAILYLAB PT WITH INR [COAG] DAILYLAB 03/19/17 05:00 CBC W/O DIFF (HEMOGRAM) [HEME] DAILYLAB CMP, RFLX TO IONIZED CA IF [CHEM] DAILYLAB MAGNESIUM [CHEM] DAILYLAB PHOSPHORUS [CHEM] DAILYLAB 03/20/17 05:00 CBC W/O DIFF (HEMOGRAM) [HEME] DAILYLAB CMP, RFLX TO IONIZED CA IF [CHEM] DAILYLAB MAGNESIUM [CHEM] DAILYLAB PHOSPHORUS [CHEM] DAILYLAB 03/21/17 05:00 CBC W/O DIFF (HEMOGRAM) [HEME] DAILYLAB CMP, RFLX TO IONIZED CA IF [CHEM] DAILYLAB MAGNESIUM [CHEM] DAILYLAB PHOSPHORUS [CHEM] DAILYLAB 03/22/17 05:00 CBC W/O DIFF (HEMOGRAM) [HEME] DAILYLAB CMP, RFLX TO IONIZED CA IF [CHEM] DAILYLAB MAGNESIUM [CHEM] DAILYLAB PHOSPHORUS [CHEM] DAILYLAB Consult/Specialty: Other (Ortho) Plan Discussed with:: Patient Time Spent: 31-60 minutes Subjective - Subjective Patient Reports: Pain (Right foot specifally of the big toe with pain also shooting down her leg.), Other (Crying about losing her toe.) Nursing Reports: Pain Objective Vital Signs: Vital Signs - 24 hr 03/16/17 03/16/17 03/17/17 14:43 20:34 01:00 Temperature 36.6 C Heart Rate [ Brachial] Heart Rate [ 88 110 H 98 Monitoring electrodes] Respiratory 17 16 18 Rate Blood Pressure 114/73 138/86 H 110/72 [Right Brachial artery] O2 Saturation 98 97 98 03/17/17 03/17/17 06:55 09:22 Temperature 36.5 C 36.5 C Heart Rate [ 101 H 114 H Brachial] Heart Rate [ Monitoring electrodes] Respiratory 20 18 Rate Blood Pressure 132/92 H 149/97 H [Right Brachial artery] O2 Saturation 98 97 Oxygen O2 Source Room air I&O (Last 24 Hrs): Intake and Output Totals x24h 03/15/17 03/16/17 03/17/17 23:59 23:59 23:59 Intake Total 7101.083 5005.001 1800 Output Total 4990 1900 Balance 2111.083 3105.001 1800 General: Alert, Oriented x3, Mild distress (Anxious, crying) HEENT: Atraumatic, PERRLA, EOMI, Mucous membr. moist/pink Neck: Supple, No JVD, No thyromegaly, +2 carotid pulse wo bruit, No LAD Lymphatic: no adenopathy Neuro: Alert, Non Focal, CN 2-12 Grossly Intact, Oriented Times 3 Cardiovascular: Normal S1, Normal S2, No murmurs, Other (Tachycardic) Respiratory: Chest non-tender, No respiratory distress, Breath sounds nml Abdomen: Normal bowel sounds, Soft, No tenderness, No hepatospenomegaly, No masses Extremities: Normal pulses, Other (Bilateral lower extremity swelling, right big toe swollen, tender, warm with purulent drainage) Skin: No rashes Comments/Notes: Right big toe as above - Results Results: Laboratory Results WBC 7.1 x10^3/uL (4.8-10.8) 03/16/17 08:35 RBC 4.08 10^6/uL (4.20-5.40) L 03/16/17 08:35 Hgb 9.8 g/dL (12.0-16.0) L 03/16/17 08:35 Hct 30.7 % (37.0-47.0) L 03/16/17 08:35 MCV 75.4 fL (81.0-99.0) L 03/16/17 08:35 MCH 24.0 pg (27.0-31.0) L 03/16/17 08:35 MCHC 31.9 g/dL (32.0-36.0) L 03/16/17 08:35 RDW 17.3 % (12.0-15.0) H 03/16/17 08:35 Plt Count 449 10^3/uL (130-450) 03/16/17 08:35 MPV 7.0 fL (7.9-10.8) L 03/16/17 08:35 Neut # 3.7 10^3/uL (1.5-6.6) 03/16/17 08:35 Lymph # 2.7 10^3/uL (1.5-3.5) 03/16/17 08:35 [place] # 0.5 10^3/uL (0.0-1.0) 03/16/17 08:35 Eos # 0.2 10^3/uL (0.0-0.7) 03/16/17 08:35 Baso # 0.1 10^3/uL (0.0-0.1) 03/16/17 08:35 Absolute Nucleated RBC 0.00 x10^3/uL 03/16/17 08:35 Nucleated RBC % 0.0 /100WBC 03/16/17 08:35 Manual Slide Review Indicated 03/14/17 15:30 Platelet Estimate INCREASED (>450,000) (NORMAL) 03/14/17 15:30 Platelet Morphology 1+ LARGE PLATELETS (NORMAL) 03/14/17 15:30 RBC Morph Micro Appear 1+ ANISOCYTOSIS (NORMAL) 03/14/17 15:30 VBG pH 7.050 (7.31-7.41) L 03/14/17 17:20 VBG pCO2 17.5 mmHg (41-51) L 03/14/17 17:20 VBG pO2 85.0 mmHg (25-47) H 03/14/17 17:20 VBG HCO3 4.7 mmol/L (23-28) L 03/14/17 17:20 VBG Total CO2 5.3 mmol/L (24-29) L 03/14/17 17:20 VBG O2 Saturation 92.8 % (60-80) H 03/14/17 17:20 VBG Base Excess -23.9 mmol/L (-2 - +2) L 03/14/17 17:20 Sodium 134 mmol/L (135-145) L 03/16/17 08:35 Potassium 4.1 mmol/L (3.5-5.0) 03/16/17 08:35 Chloride 102 mmol/L (101-111) 03/16/17 08:35 Carbon Dioxide 23 mmol/L (21-32) 03/16/17 08:35 Anion Gap 9.0 (6-13) 03/16/17 08:35 BUN 22 mg/dL (6-20) H 03/16/17 08:35 Creatinine 0.6 mg/dL (0.4-1.0) 03/16/17 08:35 Estimated GFR (MDRD) 114 (>89) 03/16/17 08:35 Glucose 366 mg/dL (70-100) H 03/16/17 08:35 POC Whole Bld Glucose 172 mg/dL (70 - 100) H 03/17/17 11:38 Glycated Hemoglobin 10.9 % (4.6-6.2) H 03/15/17 07:51 Estim Average Glucose 266 (70-100) H 03/15/17 07:51 Lactic Acid 1.3 mmol/L (0.5-2.2) 03/14/17 17:20 Calcium 8.4 mg/dL (8.5-10.3) L 03/16/17 08:35 Ionized Calcium NO 03/16/17 08:35 Magnesium 2.5 mg/dL (1.7-2.8) 03/14/17 21:28 Total Bilirubin 0.6 mg/dL (0.2-1.0) 03/16/17 08:35 AST 45 IU/L (10-42) H 03/16/17 08:35 ALT 52 IU/L (10-60) 03/16/17 08:35 Alkaline Phosphatase 204 IU/L (42-121) H 03/16/17 08:35 Troponin I 0.06 ng/mL (<0.49) 03/15/17 07:50 Total Protein 5.9 g/dL (6.7-8.2) L 03/16/17 08:35 Albumin 3.0 g/dL (3.2-5.5) L 03/16/17 08:35 Globulin 2.9 g/dL (2.1-4.2) 03/16/17 08:35 Albumin/Globulin Ratio 1.0 (1.0-2.2) 03/16/17 08:35 Serum HCG, Qual NEGATIVE 03/14/17 15:30 Urine Color YELLOW 03/15/17 19:55 Urine Clarity CLEAR (CLEAR) 03/15/17 19:55 Urine pH 6.0 PH (5.0-7.5) 03/15/17 19:55 Ur Specific [place] 1.010 (1.002-1.030) 03/15/17 19:55 Urine Protein NEGATIVE mg/dL (NEGATIVE) 03/15/17 19:55 Urine Glucose (UA) 500 mg/dL (NEGATIVE) H 03/15/17 19:55 Urine Ketones NEGATIVE mg/dL (NEGATIVE) 03/15/17 19:55 Urine Occult Blood NEGATIVE (NEGATIVE) 03/15/17 19:55 Urine Nitrite NEGATIVE (NEGATIVE) 03/15/17 19:55 Urine Bilirubin NEGATIVE (NEGATIVE) 03/15/17 19:55 Urine Urobilinogen 0.2 (NORMAL) E.U./dL (NORMAL) 03/15/17 19:55 Ur Leukocyte Esterase NEGATIVE (NEGATIVE) 03/15/17 19:55 Ur Microscopic Review NOT INDICATED 03/15/17 19:55 Urine Culture Comments NOT INDICATED 03/15/17 19:55 Serum Ketones NEGATIVE (NEGATIVE) 03/15/17 12:00 - Procedures Procedures: Procedures INSERT INFUSION DEV IN R INT JUGULAR VEIN, PERC (04/21/16) INSERTION OF INFUSION DEV INTO SUP VENA CAVA, PERC APPROACH (12/21/16) INSERTION OF INFUSION DEVICE INTO R ATRIUM, PERC APPROACH (12/04/15) TRANSFUSE NONAUT RED BLOOD CELLS IN PERIPH VEIN, PERC (01/22/17) ULTRASONOGRAPHY OF RIGHT JUGULAR VEINS, GUIDANCE (04/21/16)
[2017-03-17] MEDS: HYDROmorphone 2 MG TABLET PO PRN ×3 (14:18→23:16)
--- NOTE | 2017-03-17 14:24 | CONSULTATION NOTE ---
DATE OF SERVICE: 03/17/2017 Physician: Shakeel Ye MD ORTHOPEDIC CONSULT NOTE REFERRING PHYSICIAN: Mason Mathews MD, of the hospitalist service. HISTORY OF PRESENT ILLNESS: Patient is a 36-year-old female diabetic who is well known to the hospital. She has had repeated admissions for diabetic ketoacidosis; is a poorly controlled diabetic patient. She has had a history of recurrent and chronic diabetic ulcerations on the tips of multiple toes. Recently she has been having draining ulceration of the tip of her right great toe. The toe is quite tender, swollen, and erythematous with persistent drainage. X-rays taken of the toe have shown bony destruction of the distal tuft of her toe, consistent with osteomyelitis. Recent admission has resulted in decreased inflammation while on antibiotics. She is now willing to proceed with a partial toe amputation. PHYSICAL EXAMINATION: Right great toe: 1 to 2+ swollen in the distal tip of her great toe. She has an area of granulation tissue measuring approximately 5-6 mm in diameter. There is some serous drainage noted. Toe is quite tender on palpation today. There is some mild erythema of the tip of the toe as well. No lymphangitis was appreciated. STUDIES: X-rays of the right great toe show evidence of bony destruction of the distal phalanx in the tuft portion of the phalanx. ASSESSMENT: Chronic right great toe diabetic infection - now involving the distal phalanx with probable osteomyelitis. PLAN: After treatment options were explained to the patient, she is now agreeable to proceeding with a partial toe amputation, removing the distal phalanx of her great toe. She realizes, in view of her diabetic peripheral neuropathy and poor circulation, as well as her ongoing infection, that this may not heal, and she may require future surgery to revise this amputation as needed. Risks and benefits of surgery were explained to the patient. All her questions were answered. Her consent has been signed, and her leg has been marked. We will plan, then, on doing her toe operation tomorrow morning. TD: 03/17/2017 14:37
[2017-03-17] MEDS: ACETAMINOPHEN 325 MG TABLET PO PRN ×2 (17:03→22:32)
[2017-03-17] MEDS: SACCHAROMYCES BOULARDII 250 MG CAPSULE PO SCH (17:07)
[2017-03-17] MEDS ORDERED: SODIUM CHLORIDE FLUSH 0.9% 10 ML SYRINGE ONE (20:09)
[2017-03-17] MEDS: AMITRIPTYLINE 25 MG TABLET PO SCH (20:15)
[2017-03-17] MEDS ORDERED: cloNIDine 0.1 MG PATCH TOP SCH (21:00)
[2017-03-18] MEDS: METHOCARBAMOL 500 MG TABLET PO PRN ×2 (00:07→16:02)
[2017-03-18] MEDS: SODIUM CHLORIDE FLUSH 0.9% 10 ML SYRINGE IVP PRN ×4 (00:10→20:41)
[2017-03-18] MEDS: VANCOMYCIN INJ 1 GM in SODIUM CHLORIDE 0.9% 250 ML IV SCH (03:42)
[2017-03-18] MEDS: SODIUM CHLORIDE FLUSH 0.9% 10 ML SYRINGE IVP SCH ×2 (05:38→14:43)
[2017-03-18] MEDS: GABAPENTIN 400 MG CAPSULE PO SCH ×3 (05:46→20:59)
[2017-03-18] MEDS: diltiaZEM CD 120 MG CAPSULE PO SCH (06:26)
[2017-03-18] MEDS: METOPROLOL SUCCINATE 25 MG TABLET PO SCH ×2 (06:26→20:59)
[2017-03-18] MEDS: HYDROmorphone 2 MG TABLET PO PRN ×5 (06:28→21:52)
[2017-03-18 06:57] LABS: HGB - HEMOGLOBIN 10.1 g/dL (12.0-16.0); MEAN CORPUSCULAR HGB CONC 31.7 g/dL (32.0-36.0); MEAN CORPUSCULAR VOLUME 75.7 fL (81.0-99.0); MEAN PLATELET VOLUME 7.6 fL (7.9-10.8); RED BLOOD COUNT 4.21 10^6/uL (4.20-5.40); RED CELL DISTRIBUTION WIDTH 17.3 % (12.0-15.0); WHITE BLOOD COUNT 4.9 x10^3/uL (4.8-10.8)
[2017-03-18 07:14] LABS: ALKALINE PHOSPHATASE 214 IU/L (42-121); ALT ALANINE AMINOTRANSFERASE 65 IU/L (10-60); AST ASPARTATE AMINOTRANSFERASE 51 IU/L (10-42); BILIRUBIN,TOTAL 0.2 mg/dL (0.2-1.0); BUN - BLOOD UREA NITROGEN 20 mg/dL (6-20); CALCIUM 8.5 mg/dL (8.5-10.3); CARBON DIOXIDE - CO2 28 mmol/L (21-32); CHLORIDE 98 mmol/L (101-111); CREATININE 0.4 mg/dL (0.4-1.0); GFR - MDRD 182 (>89); GLUCOSE 264 mg/dL (70-100); MAGNESIUM 1.6 mg/dL (1.7-2.8); PHOSPHORUS 4.5 mg/dL (2.5-4.6); SODIUM 133 mmol/L (135-145); TOTAL PROTEIN 6.1 g/dL (6.7-8.2)
[2017-03-18] MEDS ORDERED: LACTATED RINGERS 1,000 ML IV ONE ×2 (07:38→08:26)
[2017-03-18 07:41] LABS: INR 0.9 (0.8-1.2); PT - PROTHROMBIN TIME 9.7 secs (9.9-12.6)
[2017-03-18] MEDS ORDERED: BUPIVACAINE 0.5% PF 30 ML VIAL INFIL ONE (08:02)
[2017-03-18] MEDS ORDERED: oxyCOD/ACETAMIN 5 MG/325 MG TABLET PO PRN (08:23)
[2017-03-18] MEDS ORDERED: MORPHINE 2 MG/ML CARPUJECT IVP PRN (08:23)
[2017-03-18] MEDS ORDERED: SENNA 8.6 MG TABLET PO PRN (08:23)
[2017-03-18] MEDS ORDERED: DOCUSATE SODIUM 100 MG CAPSULE PO PRN (08:23)
[2017-03-18] MEDS ORDERED: SODIUM CHLORIDE FLUSH 0.9% 10 ML SYRINGE IVP PRN (08:23)
[2017-03-18] MEDS ORDERED: LIDOCAINE-MPF 2% 5 ML VIAL IM ONE (08:30)
[2017-03-18] MEDS ORDERED: PROPOFOL 200 MG/20 ML VIAL IVP ONE (08:30)
--- NOTE | 2017-03-18 08:36 | OPERATIVE REPORT ---
Operative Report - General Admit Date: 03/14/17 Procedure Date: 03/18/17 Planned Procedure: Partial right great toe amputation Pre-Op Diagnosis: Osteomyelitis of right great toe distal phalanx Procedure Performed: Partial right great toe amputation Post Op Diagnosis: Same - Procedure Note Primary Surgeon: Dean Ye Anesthesia Provider: Dr. Fernandez Anesthesia Technique: General mask Pathology: Right great toe tip IV Fluids (mL): 400 Estimated Blood Loss (mL): 10 - Other Other Information/Narrative: None
[2017-03-18] MEDS ORDERED: fentaNYL 100 MCG/2 ML VIAL ONE (08:46)
[2017-03-18] MEDS ORDERED: MIDAZOLAM 2 MG/2 ML VIAL ONE (08:46)
--- NOTE | 2017-03-18 08:57 | OPERATIVE REPORT ---
DATE OF SERVICE: 03/18/2017 Physician: Shakeel Ye MD PREOPERATIVE DIAGNOSES 1. Osteomyelitis, right great toe involving the distal phalanx. 2. Diabetes. POSTOPERATIVE DIAGNOSES 1. Osteomyelitis, right great toe involving the distal phalanx. 2. Diabetes. PROCEDURE PERFORMED: Partial right great toe amputation. SURGEON: Shakeel Ye MD ANESTHESIA: General. DESCRIPTION OF PROCEDURE: The patient was taken to the operating room on the morning of 03/18/2017, where she was placed under general anesthetic without any complications. We then prepped and draped the toe free in the usual fashion for our procedure. Making an elliptical skin incision about the tip of the toe with care made to remove the granulating ulceration wound and its track down to the distal phalanx, we performed a partial amputation of the distal end of the great toe, removing the distal phalanx after we disarticulated the interphalangeal joint of the great toe. We were left with a fish mouth type incision, which was clean without any evidence of necrotic tissue or purulence. We then copiously irrigated the wound with saline. There were no bleeders that needed to be coagulated. We then loosely closed the fish mouth type incision using several buried simple stitches of 3-0 Vicryl to close the subcutaneous tissues, followed by a combination of simple interrupted and interrupted horizontal mattress stitches of 3-0 nylon to approximate the skin edge. Because she had such minimal bleeding, it was opted not to place a drain. At the end of the procedure, we did then injected approximately 13 mL of 0.5% Marcaine without epinephrine to perform a digital nerve block to the great toe to help with postoperative analgesia. The patient was then transferred onto her bed and taken to recovery room in satisfactory condition. ESTIMATED BLOOD LOSS: 10 mL REPLACEMENT: 400 mL crystalloid. TOURNIQUET TIME: None. COMPLICATIONS: None. PLAN: The patient may be up weightbearing as tolerated on her right lower extremity in a postoperative bunion shoe weightbearing on the right heel as tolerated. Will continue on her preoperative antibiotic course. TD: 03/18/2017 09:56
[2017-03-18] MEDS: INSULIN ASPART 300 UNIT/3 ML PEN SUBQ SCH ×7 (09:22→20:52)
[2017-03-18] MEDS: DULoxetine 20 MG CAPSULE PO SCH (09:24)
[2017-03-18] MEDS: FERROUS SULFATE 325 MG TABLET PO SCH ×2 (09:24→17:40)
[2017-03-18] MEDS: MELOXICAM 7.5 MG TABLET PO SCH ×2 (09:24→20:58)
[2017-03-18] MEDS: SACCHAROMYCES BOULARDII 250 MG CAPSULE PO SCH ×2 (09:25→17:40)
[2017-03-18] MEDS: CILOSTAZOL 100 MG TABLET PO SCH ×2 (09:25→20:58)
[2017-03-18] MEDS: SODIUM CHLORIDE 0.9% 1,000 ML IV SCH ×2 (09:30→13:28)
[2017-03-18] MEDS: INSULIN GLARGINE 300 UNIT/3 ML PEN SUBQ SCH (09:37)
[2017-03-18] MEDS: SULFAMETH/TRIMETH DS 800/160 MG TABLET PO SCH ×2 (10:30→20:58)
[2017-03-18] MEDS ORDERED: SODIUM CHLORIDE FLUSH 0.9% 10 ML SYRINGE IVP SCH (14:00)
[2017-03-18] MEDS: clonazePAM 0.5 MG TABLET PO PRN (14:43)
[2017-03-18] MEDS: ASPIRIN 325 MG TABLET PO SCH (17:41)
--- NOTE | 2017-03-18 18:59 | PROVIDER PROGRESS NOTE ---
Assessment/Plan - Problem List (1) Osteomyelitis of toe of right foot Assessment/Plan: Patient has infected big toe on right foot and was on bactrim as an outpatient Toe is very tender, swollen with purulent drainage XRay of the foot shows osteomyelitis of the distal tuft of great toe Ortho consulted and patient underwent amputation of distal big toe on the right foot POD#0 Pain uncontrolled placed back on dilaudid PO Wound cx grew MSSA and beta hemolytic strep susceptible to bactrim Place on PO bactrim Patient unstable PT consult May need placement for wound care and PT as patient is homeless and will not be able to care for herself (2) DKA, type 1 Impression: Resolved On Lantus 60 units daily SS insulin with meals Dm diet BG stable Qualifiers: Diabetes mellitus complication detail: without coma Qualified Code(s): E10.10 - Type 1 diabetes mellitus with ketoacidosis without coma (3) Anxiety Impression: Very anxious today after amputation Started on clonazepam 1mg BID (4) Borderline personality disorder Impression: Crying and anxious today and seems to be trying to manipulate for more pain medication. We will continue to monitor. (5) Hypertension Impression: Controlled. Continue metoprolol, diltiazem and clonidine Qualifiers: Hypertension type: essential hypertension Qualified Code(s): I10 - Essential (primary) hypertension (6) Methamphetamine abuse Impression: Patient has not had any methamphetamine since her admission however this is of no concern as the withdrawal symptoms of methamphetamine are somnolence and sleeping. (7) Homeless single person Impression: Social work has been consulted (8) Personal history of noncompliance with medical treatment Impression: The importance of compliance with medical regimen has been once again stressed to the patient for an extended amount of time. (9) Tobacco Abuse Impression: Nicotine patch Counseled - Current Meds Current Meds: Current Medications Generic Name Dose Route Start Last Admin Trade Name Freq PRN Reason Stop Dose Admin Amitriptyline HCl 50 mg 03/14/17 21:00 03/17/17 20:15 Elavil PO Not Given QPM SYLVIA Aspirin 325 mg 03/18/17 17:00 03/18/17 17:41 Parvez PO 325 mg BIDWM SYLVIA Administration Cilostazol 100 mg 03/14/17 21:00 03/18/17 09:25 Pletal PO 100 mg BID SYLVIA Administration Clonazepam 1 mg 03/18/17 14:28 03/18/17 14:43 Klonopin PO 1 mg BID PRN Administration Anxiety Clonidine HCl 1 patch 03/17/17 21:00 03/17/17 20:50 [id number] TOP 1 patch Q7D [facility] Administration Diltiazem HCl 120 mg 03/15/17 09:00 03/18/17 06:26 Cardizem Cd PO 120 mg DAILY SYLVIA Administration Duloxetine HCl 40 mg 03/15/17 09:00 03/18/17 09:24 Cymbalta PO 40 mg DAILY [facility] Administration Ferrous Sulfate 325 mg 03/15/17 17:00 03/18/17 17:40 Feosol PO 325 mg BIDWM [facility] Administration Gabapentin 400 mg 03/17/17 12:30 03/18/17 13:26 Neurontin PO 400 mg TID [facility] Administration Hydromorphone HCl 4 mg 03/18/17 10:22 03/18/17 17:46 Dilaudid PO 4 mg Q4H PRN Administration Severe Pain Insulin Aspart 7 unit 03/17/17 17:40 03/18/17 17:36 Novolog SUBQ Not Given TIDWM [facility] Insulin Aspart 2 - 10 unit 03/17/17 21:00 03/18/17 17:36 Novolog SUBQ Not Given 0800,1200,1700,2100 [facility] Protocol Insulin Glargine 60 unit 03/15/17 09:00 03/18/17 09:37 Lantus Solostar SUBQ 60 unit DAILY [facility] Administration Meloxicam 7.5 mg 03/14/17 21:00 03/18/17 09:24 Mobic PO 7.5 mg BID [facility] Administration Methocarbamol 750 mg 03/17/17 10:40 03/18/17 16:02 Robaxin PO 750 mg BID PRN Administration Spasms Metoprolol Succinate 25 mg 03/14/17 21:00 03/18/17 06:26 Toprol Xl PO 25 mg BID [facility] Administration Nicotine 1 patch 03/16/17 14:00 03/17/17 20:10 Nicoderm TOP 1 patch DAILY [facility] Administration Saccharomyces Boulardii 250 mg 03/17/17 17:00 03/18/17 17:40 Florastor PO 250 mg BIDWM [facility] Administration Sodium Chloride 10 ml 03/14/17 22:00 03/18/17 14:43 Normal Saline Flush 0.9% IVP 10 ml Q8HR SYLVIA Administration Sodium Chloride 10 ml 03/14/17 16:18 03/18/17 05:39 Normal Saline Flush 0.9% IVP 10 ml PRN PRN Administration NEEDED PER PROVIDER ORDERS Trimethoprim/Sulfamethoxazole 1 tab 03/18/17 11:00 03/18/17 10:30 Bactrim Ds 800/160 PO 1 tab BID SYLVIA Administration - Lab Result Fish Bone Diagrams: 03/18/17 05:45 03/18/17 05:45 - Diagnostic Imaging Results Diagnostic Imaging Results: Final report reviewed - Additional Planning Condition/Complexity: Guarded My Orders: My Active Orders 03/17/17 21:00 Insulin Aspart [NovoLOG] 2 - 10 unit SUBQ 0800,1200,1700,2100 03/18/17 Evaluate and Treat PT [PT] Routine 03/18/17 10:22 HYDROmorphone [Dilaudid] 4 mg PO Q4H PRN 03/18/17 11:00 Sulfamethox/Trimeth 800/160 [Bactrim Ds 800/160] 1 tab PO BID 03/18/17 11:39 OZZIE Hurtado [RC] QSHIFT 03/18/17 14:28 clonazePAM [KlonoPIN] 1 mg PO BID PRN 03/18/17 Dinner DIET [Carb-controlled Diet] [DIET] 03/19/17 05:00 CBC W/O DIFF (HEMOGRAM) [HEME] DAILYLAB CMP, RFLX TO IONIZED CA IF [CHEM] DAILYLAB MAGNESIUM [CHEM] DAILYLAB PHOSPHORUS [CHEM] DAILYLAB 03/20/17 05:00 CBC W/O DIFF (HEMOGRAM) [HEME] DAILYLAB CMP, RFLX TO IONIZED CA IF [CHEM] DAILYLAB MAGNESIUM [CHEM] DAILYLAB PHOSPHORUS [CHEM] DAILYLAB 03/21/17 05:00 CBC W/O DIFF (HEMOGRAM) [HEME] DAILYLAB CMP, RFLX TO IONIZED CA IF [CHEM] DAILYLAB MAGNESIUM [CHEM] DAILYLAB PHOSPHORUS [CHEM] DAILYLAB 03/22/17 05:00 CBC W/O DIFF (HEMOGRAM) [HEME] DAILYLAB CMP, RFLX TO IONIZED CA IF [CHEM] DAILYLAB MAGNESIUM [CHEM] DAILYLAB PHOSPHORUS [CHEM] DAILYLAB Consult/Specialty: Other (Ortho) Plan Discussed with:: Patient Time Spent: 31-60 minutes Subjective - Subjective Patient Reports: Pain (Right big toe after amputation), Other (Very anxious about what she will do after this hospitalization.) Nursing Reports: No Complaints Objective Vital Signs: Vital Signs - 24 hr 03/17/17 03/18/17 03/18/17 20:19 00:05 05:00 Temperature 36.9 C 36.4 C L Heart Rate [ 111 H 120 H 112 H Brachial] Respiratory 18 18 20 Rate Blood Pressure 144/89 H 154/97 H 148/102 H [Right Brachial artery] O2 Saturation 99 97 93 03/18/17 03/18/17 03/18/17 08:26 08:35 08:40 Temperature Heart Rate [ Brachial] Respiratory Rate Blood Pressure [Right Brachial artery] O2 Saturation 99 95 97 03/18/17 03/18/17 03/18/17 08:50 09:05 09:41 Temperature Heart Rate [ 99 Brachial] Respiratory Rate Blood Pressure 115/73 [Right Brachial artery] O2 Saturation 97 97 99 03/18/17 03/18/17 11:03 18:17 Temperature 36.9 C 36.6 C Heart Rate [ 113 H 121 H Brachial] Respiratory 16 Rate Blood Pressure 121/85 H 139/93 H [Right Brachial artery] O2 Saturation 94 95 Oxygen O2 Source Room air I&O (Last 24 Hrs): Intake and Output Totals x24h 03/16/17 03/17/17 03/18/17 23:59 23:59 23:59 Intake Total 5005.001 4200 1470 Output Total 1900 650 Balance 3105.001 4200 820 General: Alert, Oriented x3, Moderate distress (anxious, crying in pain and because of anxiety) HEENT: Atraumatic, PERRLA, EOMI, Mucous membr. moist/pink Neck: Supple, No JVD, No thyromegaly, +2 carotid pulse wo bruit, No LAD Lymphatic: no adenopathy Neuro: Alert, Non Focal, CN 2-12 Grossly Intact, Oriented Times 3 Cardiovascular: Regular rate, Normal S1, Normal S2, No murmurs Respiratory: Chest non-tender, No respiratory distress, Breath sounds nml Abdomen: Normal bowel sounds, Soft, No tenderness, No hepatospenomegaly Extremities: No cyanosis, No edema, Normal pulses, Other (Right big toe post amputation is dressed) Skin: No rashes Comments/Notes: Right big toe as above - Results Results: Laboratory Results WBC 4.9 x10^3/uL (4.8-10.8) 03/18/17 05:45 RBC 4.21 10^6/uL (4.20-5.40) 03/18/17 05:45 Hgb 10.1 g/dL (12.0-16.0) L 03/18/17 05:45 Hct 31.9 % (37.0-47.0) L 03/18/17 05:45 MCV 75.7 fL (81.0-99.0) L 03/18/17 05:45 MCH 24.0 pg (27.0-31.0) L 03/18/17 05:45 MCHC 31.7 g/dL (32.0-36.0) L 03/18/17 05:45 RDW 17.3 % (12.0-15.0) H 03/18/17 05:45 Plt Count 394 10^3/uL (130-450) 03/18/17 05:45 MPV 7.6 fL (7.9-10.8) L 03/18/17 05:45 Neut # 3.7 10^3/uL (1.5-6.6) 03/16/17 08:35 Lymph # 2.7 10^3/uL (1.5-3.5) 03/16/17 08:35 [place] # 0.5 10^3/uL (0.0-1.0) 03/16/17 08:35 Eos # 0.2 10^3/uL (0.0-0.7) 03/16/17 08:35 Baso # 0.1 10^3/uL (0.0-0.1) 03/16/17 08:35 Absolute Nucleated RBC 0.00 x10^3/uL 03/16/17 08:35 Nucleated RBC % 0.0 /100WBC 03/16/17 08:35 Manual Slide Review Indicated 03/14/17 15:30 Platelet Estimate INCREASED (>450,000) (NORMAL) 03/14/17 15:30 Platelet Morphology 1+ LARGE PLATELETS (NORMAL) 03/14/17 15:30 RBC Morph Micro Appear 1+ ANISOCYTOSIS (NORMAL) 03/14/17 15:30 PT 9.7 secs (9.9-12.6) L 03/18/17 05:45 INR 0.9 (0.8-1.2) 03/18/17 05:45 VBG pH 7.050 (7.31-7.41) L 03/14/17 17:20 VBG pCO2 17.5 mmHg (41-51) L 03/14/17 17:20 VBG pO2 85.0 mmHg (25-47) H 03/14/17 17:20 VBG HCO3 4.7 mmol/L (23-28) L 03/14/17 17:20 VBG Total CO2 5.3 mmol/L (24-29) L 03/14/17 17:20 VBG O2 Saturation 92.8 % (60-80) H 03/14/17 17:20 VBG Base Excess -23.9 mmol/L (-2 - +2) L 03/14/17 17:20 Sodium 133 mmol/L (135-145) L 03/18/17 05:45 Potassium 3.8 mmol/L (3.5-5.0) 03/18/17 05:45 Chloride 98 mmol/L (101-111) L 03/18/17 05:45 Carbon Dioxide 28 mmol/L (21-32) 03/18/17 05:45 Anion Gap 7.0 (6-13) 03/18/17 05:45 BUN 20 mg/dL (6-20) 03/18/17 05:45 Creatinine 0.4 mg/dL (0.4-1.0) 03/18/17 05:45 Estimated GFR (MDRD) 182 (>89) 03/18/17 05:45 Glucose 264 mg/dL (70-100) H 03/18/17 05:45 POC Whole Bld Glucose 63 mg/dL (70 - 100) L 03/18/17 16:31 Glycated Hemoglobin 10.9 % (4.6-6.2) H 03/15/17 07:51 Estim Average Glucose 266 (70-100) H 03/15/17 07:51 Lactic Acid 1.3 mmol/L (0.5-2.2) 03/14/17 17:20 Calcium 8.5 mg/dL (8.5-10.3) 03/18/17 05:45 Ionized Calcium NO 03/18/17 05:45 Phosphorus 4.5 mg/dL (2.5-4.6) 03/18/17 05:45 Magnesium 1.6 mg/dL (1.7-2.8) L 03/18/17 05:45 Total Bilirubin 0.2 mg/dL (0.2-1.0) 03/18/17 05:45 AST 51 IU/L (10-42) H 03/18/17 05:45 ALT 65 IU/L (10-60) H 03/18/17 05:45 Alkaline Phosphatase 214 IU/L (42-121) H 03/18/17 05:45 Troponin I 0.06 ng/mL (<0.49) 03/15/17 07:50 Total Protein 6.1 g/dL (6.7-8.2) L 03/18/17 05:45 Albumin 3.0 g/dL (3.2-5.5) L 03/18/17 05:45 Globulin 3.1 g/dL (2.1-4.2) 03/18/17 05:45 Albumin/Globulin Ratio 1.0 (1.0-2.2) 03/18/17 05:45 Serum HCG, Qual NEGATIVE 03/14/17 15:30 Urine Color YELLOW 03/15/17 19:55 Urine Clarity CLEAR (CLEAR) 03/15/17 19:55 Urine pH 6.0 PH (5.0-7.5) 03/15/17 19:55 Ur Specific [place] 1.010 (1.002-1.030) 03/15/17 19:55 Urine Protein NEGATIVE mg/dL (NEGATIVE) 03/15/17 19:55 Urine Glucose (UA) 500 mg/dL (NEGATIVE) H 03/15/17 19:55 Urine Ketones NEGATIVE mg/dL (NEGATIVE) 03/15/17 19:55 Urine Occult Blood NEGATIVE (NEGATIVE) 03/15/17 19:55 Urine Nitrite NEGATIVE (NEGATIVE) 03/15/17 19:55 Urine Bilirubin NEGATIVE (NEGATIVE) 03/15/17 19:55 Urine Urobilinogen 0.2 (NORMAL) E.U./dL (NORMAL) 03/15/17 19:55 Ur Leukocyte Esterase NEGATIVE (NEGATIVE) 03/15/17 19:55 Ur Microscopic Review NOT INDICATED 03/15/17 19:55 Urine Culture Comments NOT INDICATED 03/15/17 19:55 Serum Ketones NEGATIVE (NEGATIVE) 03/15/17 12:00 - Procedures Procedures: Procedures INSERT INFUSION DEV IN R INT JUGULAR VEIN, PERC (04/21/16) INSERTION OF INFUSION DEV INTO SUP VENA CAVA, PERC APPROACH (12/21/16) INSERTION OF INFUSION DEVICE INTO R ATRIUM, PERC APPROACH (12/04/15) TRANSFUSE NONAUT RED BLOOD CELLS IN PERIPH VEIN, PERC (01/22/17) ULTRASONOGRAPHY OF RIGHT JUGULAR VEINS, GUIDANCE (04/21/16)
[2017-03-18] MEDS: ACETAMINOPHEN 1,000 MG/100 ML 100 ML IV PRN (20:41)
[2017-03-18] MEDS: AMITRIPTYLINE 25 MG TABLET PO SCH (20:58)
[2017-03-19] MEDS: clonazePAM 0.5 MG TABLET PO PRN ×2 (00:34→12:19)
[2017-03-19] MEDS: METHOCARBAMOL 500 MG TABLET PO PRN ×3 (00:35→22:57)
[2017-03-19] MEDS: HYDROmorphone 2 MG TABLET PO PRN ×5 (05:35→22:45)
[2017-03-19] MEDS: SODIUM CHLORIDE FLUSH 0.9% 10 ML SYRINGE IVP PRN ×4 (05:35→23:04)
[2017-03-19] MEDS: SODIUM CHLORIDE FLUSH 0.9% 10 ML SYRINGE IVP SCH ×4 (05:35→21:01)
[2017-03-19] MEDS: GABAPENTIN 400 MG CAPSULE PO SCH ×3 (05:35→20:44)
[2017-03-19 06:45] LABS: HGB - HEMOGLOBIN 9.4 g/dL (12.0-16.0); MEAN CORPUSCULAR HGB CONC 31.7 g/dL (32.0-36.0); MEAN CORPUSCULAR VOLUME 75.6 fL (81.0-99.0); MEAN PLATELET VOLUME 7.3 fL (7.9-10.8); RED BLOOD COUNT 3.9 10^6/uL (4.20-5.40); RED CELL DISTRIBUTION WIDTH 17.6 % (12.0-15.0); WHITE BLOOD COUNT 3.3 x10^3/uL (4.8-10.8)
[2017-03-19 06:47] LABS: ALBUMIN 2.7 g/dL (3.2-5.5); ALBUMIN/GLOBULIN RATIO 0.9 (1.0-2.2); ALKALINE PHOSPHATASE 195 IU/L (42-121); ALT ALANINE AMINOTRANSFERASE 69 IU/L (10-60); AST ASPARTATE AMINOTRANSFERASE 64 IU/L (10-42); BILIRUBIN,TOTAL < 0.2 mg/dL (0.2-1.0); BUN - BLOOD UREA NITROGEN 20 mg/dL (6-20); CALCIUM 8.4 mg/dL (8.5-10.3); CARBON DIOXIDE - CO2 29 mmol/L (21-32); CHLORIDE 98 mmol/L (101-111); CREATININE 0.3 mg/dL (0.4-1.0); GFR - MDRD 253 (>89); GLUCOSE 171 mg/dL (70-100); MAGNESIUM 1.6 mg/dL (1.7-2.8); PHOSPHORUS 4.4 mg/dL (2.5-4.6); SODIUM 136 mmol/L (135-145); TOTAL PROTEIN 5.7 g/dL (6.7-8.2)
[2017-03-19] MEDS: ACETAMINOPHEN 1,000 MG/100 ML 100 ML IV PRN ×2 (09:14→22:56)
[2017-03-19] MEDS: NICOTINE 21 MG PATCH TOP SCH (09:14)
[2017-03-19] MEDS: ASPIRIN 325 MG TABLET PO SCH ×2 (09:14→17:12)
[2017-03-19] MEDS: SULFAMETH/TRIMETH DS 800/160 MG TABLET PO SCH ×2 (09:14→20:43)
[2017-03-19] MEDS: SACCHAROMYCES BOULARDII 250 MG CAPSULE PO SCH ×2 (09:14→17:12)
[2017-03-19] MEDS: DULoxetine 20 MG CAPSULE PO SCH (09:14)
[2017-03-19] MEDS: METOPROLOL SUCCINATE 25 MG TABLET PO SCH ×2 (09:15→20:43)
[2017-03-19] MEDS: diltiaZEM CD 120 MG CAPSULE PO SCH (09:15)
[2017-03-19] MEDS: FERROUS SULFATE 325 MG TABLET PO SCH ×2 (09:15→17:12)
[2017-03-19] MEDS: MELOXICAM 7.5 MG TABLET PO SCH ×2 (09:15→20:43)
[2017-03-19] MEDS: CILOSTAZOL 100 MG TABLET PO SCH ×2 (09:15→20:43)
[2017-03-19] MEDS: INSULIN ASPART 300 UNIT/3 ML PEN SUBQ SCH ×7 (09:18→20:28)
[2017-03-19] MEDS: INSULIN GLARGINE 300 UNIT/3 ML PEN SUBQ SCH (09:26)
--- NOTE | 2017-03-19 15:54 | PROVIDER PROGRESS NOTE ---
Assessment/Plan - Problem List (1) Osteomyelitis of toe of right foot Assessment/Plan: Pt is now on oral antibiotic since source of infection was removed yesterday (2) S/P amputation of foot Qualifiers: Laterality: right Qualified Code(s): Z89.431 - Acquired absence of right foot Assessment/Plan: Pt has pain, but is on prn Tylenol iv and Demerol po as well as scheduled Mobic. Pt to be seen by Dr Ye tomorrow for first dressing change after amputation. (3) Diabetic acidosis without coma Qualifiers: Diabetes mellitus type: type 1 Qualified Code(s): E10.10 - Type 1 diabetes mellitus with ketoacidosis without coma Assessment/Plan: DKA cleared Pt on diabetic diet and Insulin (4) Tobacco abuse Assessment/Plan: Continue Nicoderm patch (5) Anxiety Assessment/Plan: Continue antidepressants (6) Borderline personality disorder Assessment/Plan: Pt has continued crying outbursts (8) Methamphetamine abuse Assessment/Plan: Today her [employer] found in her room, some make-shift paraphernalia for smoking Meth These were confiscated and pictures taken. Will limit outside visitors. When she is ready for DCh, her PICC will be discontinued. Continue now, for blood draws and prn iv meds. - Current Meds Current Meds: Current Medications Generic Name Dose Route Start Last Admin Trade Name Chasidy PRN Reason Stop Dose Admin Amitriptyline HCl 50 mg 03/14/17 21:00 03/18/17 20:58 Elavil PO 50 mg QPM SYLVIA Administration Aspirin 325 mg 03/18/17 17:00 03/19/17 09:14 Parvez PO 325 mg BIDWM SYLVIA Administration Cilostazol 100 mg 03/14/17 21:00 03/19/17 09:15 Pletal PO 100 mg BID SYLVIA Administration Clonazepam 1 mg 03/18/17 14:28 03/19/17 12:19 Klonopin PO 1 mg BID PRN Administration Anxiety Clonidine HCl 1 patch 03/17/17 21:00 03/17/17 20:50 [id number] TOP 1 patch Q7D SYLVIA Administration Diltiazem HCl 120 mg 03/15/17 09:00 03/19/17 09:15 Cardizem Cd PO 120 mg DAILY SYLVIA Administration Duloxetine HCl 40 mg 03/15/17 09:00 03/19/17 09:14 Cymbalta PO 40 mg DAILY SYLVIA Administration Ferrous Sulfate 325 mg 03/15/17 17:00 03/19/17 09:15 Feosol PO 325 mg BIDWM SYLVIA Administration Gabapentin 400 mg 03/17/17 12:30 03/19/17 14:28 Neurontin PO 400 mg TID SYLVIA Administration Hydromorphone HCl 4 mg 03/18/17 10:22 03/19/17 14:28 Dilaudid PO 4 mg Q4H PRN Administration Severe Pain Acetaminophen 100 mls @ 400 mls/hr 03/18/17 08:23 03/19/17 09:30 Ofirmev IV Infused Q6HR PRN Infusion PAIN Insulin Aspart 7 unit 03/17/17 17:40 03/19/17 12:20 Novolog SUBQ 7 unit TIDWM SYLVIA Administration Insulin Aspart 2 - 10 unit 03/17/17 21:00 03/19/17 12:20 Novolog SUBQ 10 unit 0800,1200,1700,2100 SYLVIA Administration Protocol Insulin Glargine 60 unit 03/15/17 09:00 03/19/17 09:26 Lantus Solostar SUBQ 60 unit DAILY SYLVIA Administration Meloxicam 7.5 mg 03/14/17 21:00 03/19/17 09:15 Mobic PO 7.5 mg BID SYLVIA Administration Methocarbamol 750 mg 03/17/17 10:40 03/19/17 14:28 Robaxin PO 750 mg BID PRN Administration Spasms Metoprolol Succinate 25 mg 03/14/17 21:00 03/19/17 09:15 Toprol Xl PO 25 mg BID SYLVIA Administration Nicotine 1 patch 03/16/17 14:00 03/19/17 09:14 Nicoderm TOP 1 patch DAILY SYLVIA Administration Saccharomyces Boulardii 250 mg 03/17/17 17:00 03/19/17 09:14 Florastor PO 250 mg BIDWM SYLVIA Administration Sodium Chloride 10 ml 03/14/17 22:00 03/19/17 09:14 Normal Saline Flush 0.9% IVP 10 ml Q8HR SYLVIA Administration Sodium Chloride 10 ml 03/14/17 16:18 03/19/17 05:35 Normal Saline Flush 0.9% IVP 10 ml PRN PRN Administration NEEDED PER PROVIDER ORDERS Trimethoprim/Sulfamethoxazole 1 tab 03/18/17 11:00 03/19/17 09:14 Bactrim Ds 800/160 PO 1 tab BID SYLVIA Administration - Lab Result Fish Bone Diagrams: 03/20/17 06:15 03/20/17 06:15 Subjective - Subjective Patient Reports: Pain Nursing Reports: Other (Pt crying and anxious when any staff enters room, otherwise she rests quietly.) Objective Vital Signs: Vital Signs - 24 hr 03/18/17 03/18/17 03/19/17 18:17 21:33 01:09 Temperature 36.6 C 36.3 C L 36 C L Heart Rate [ 121 H 122 H 110 H Brachial] Respiratory 16 19 18 Rate Blood Pressure [Left Radial artery] Blood Pressure 139/93 H 146/96 H 114/71 [Right Brachial artery] O2 Saturation 95 97 95 03/19/17 03/19/17 03/19/17 07:00 12:05 15:36 Temperature 36.2 C L 36.4 C L 36.5 C Heart Rate [ 92 115 H 121 H Brachial] Respiratory 18 18 18 Rate Blood Pressure 109/75 [Left Radial artery] Blood Pressure 135/93 H 137/86 H [Right Brachial artery] O2 Saturation 97 98 99 Oxygen O2 Source Room air I&O (Last 24 Hrs): Intake and Output Totals x24h 03/17/17 03/18/17 03/19/17 23:59 23:59 23:59 Intake Total 4200 2850 1900 Output Total 653 Balance 4200 2197 1900 General: Alert HEENT: Mucous membr. moist/pink Neck: Supple Cardiovascular: Regular rate Respiratory: No respiratory distress Abdomen: Soft Extremities: Other (R toe bandaged) - Results Results: Laboratory Results WBC 3.3 x10^3/uL (4.8-10.8) L 03/19/17 05:40 RBC 3.90 10^6/uL (4.20-5.40) L 03/19/17 05:40 Hgb 9.4 g/dL (12.0-16.0) L 03/19/17 05:40 Hct 29.5 % (37.0-47.0) L 03/19/17 05:40 MCV 75.6 fL (81.0-99.0) L 03/19/17 05:40 MCH 24.0 pg (27.0-31.0) L 03/19/17 05:40 MCHC 31.7 g/dL (32.0-36.0) L 03/19/17 05:40 RDW 17.6 % (12.0-15.0) H 03/19/17 05:40 Plt Count 304 10^3/uL (130-450) 03/19/17 05:40 MPV 7.3 fL (7.9-10.8) L 03/19/17 05:40 Neut # 3.7 10^3/uL (1.5-6.6) 03/16/17 08:35 Lymph # 2.7 10^3/uL (1.5-3.5) 03/16/17 08:35 [place] # 0.5 10^3/uL (0.0-1.0) 03/16/17 08:35 Eos # 0.2 10^3/uL (0.0-0.7) 03/16/17 08:35 Baso # 0.1 10^3/uL (0.0-0.1) 03/16/17 08:35 Absolute Nucleated RBC 0.00 x10^3/uL 03/16/17 08:35 Nucleated RBC % 0.0 /100WBC 03/16/17 08:35 Manual Slide Review Indicated 03/14/17 15:30 Platelet Estimate INCREASED (>450,000) (NORMAL) 03/14/17 15:30 Platelet Morphology 1+ LARGE PLATELETS (NORMAL) 03/14/17 15:30 RBC Morph Micro Appear 1+ ANISOCYTOSIS (NORMAL) 03/14/17 15:30 PT 9.7 secs (9.9-12.6) L 03/18/17 05:45 INR 0.9 (0.8-1.2) 03/18/17 05:45 VBG pH 7.050 (7.31-7.41) L 03/14/17 17:20 VBG pCO2 17.5 mmHg (41-51) L 03/14/17 17:20 VBG pO2 85.0 mmHg (25-47) H 03/14/17 17:20 VBG HCO3 4.7 mmol/L (23-28) L 03/14/17 17:20 VBG Total CO2 5.3 mmol/L (24-29) L 03/14/17 17:20 VBG O2 Saturation 92.8 % (60-80) H 03/14/17 17:20 VBG Base Excess -23.9 mmol/L (-2 - +2) L 03/14/17 17:20 Sodium 136 mmol/L (135-145) 03/19/17 05:40 Potassium 3.9 mmol/L (3.5-5.0) 03/19/17 05:40 Chloride 98 mmol/L (101-111) L 03/19/17 05:40 Carbon Dioxide 29 mmol/L (21-32) 03/19/17 05:40 Anion Gap 9.0 (6-13) 03/19/17 05:40 BUN 20 mg/dL (6-20) 03/19/17 05:40 Creatinine 0.3 mg/dL (0.4-1.0) L 03/19/17 05:40 Estimated GFR (MDRD) 253 (>89) 03/19/17 05:40 Glucose 171 mg/dL (70-100) H 03/19/17 05:40 POC Whole Bld Glucose 367 mg/dL (70 - 100) H 03/19/17 11:53 Glycated Hemoglobin 10.9 % (4.6-6.2) H 03/15/17 07:51 Estim Average Glucose 266 (70-100) H 03/15/17 07:51 Lactic Acid 1.3 mmol/L (0.5-2.2) 03/14/17 17:20 Calcium 8.4 mg/dL (8.5-10.3) L 03/19/17 05:40 Ionized Calcium NO 03/19/17 05:40 Phosphorus 4.4 mg/dL (2.5-4.6) 03/19/17 05:40 Magnesium 1.6 mg/dL (1.7-2.8) L 03/19/17 05:40 Total Bilirubin < 0.2 mg/dL (0.2-1.0) L 03/19/17 05:40 AST 64 IU/L (10-42) H 03/19/17 05:40 ALT 69 IU/L (10-60) H 03/19/17 05:40 Alkaline Phosphatase 195 IU/L (42-121) H 03/19/17 05:40 Troponin I 0.06 ng/mL (<0.49) 03/15/17 07:50 Total Protein 5.7 g/dL (6.7-8.2) L 03/19/17 05:40 Albumin 2.7 g/dL (3.2-5.5) L 03/19/17 05:40 Globulin 3.0 g/dL (2.1-4.2) 03/19/17 05:40 Albumin/Globulin Ratio 0.9 (1.0-2.2) L 03/19/17 05:40 Serum HCG, Qual NEGATIVE 03/14/17 15:30 Urine Color YELLOW 03/15/17 19:55 Urine Clarity CLEAR (CLEAR) 03/15/17 19:55 Urine pH 6.0 PH (5.0-7.5) 03/15/17 19:55 Ur Specific [place] 1.010 (1.002-1.030) 03/15/17 19:55 Urine Protein NEGATIVE mg/dL (NEGATIVE) 03/15/17 19:55 Urine Glucose (UA) 500 mg/dL (NEGATIVE) H 03/15/17 19:55 Urine Ketones NEGATIVE mg/dL (NEGATIVE) 03/15/17 19:55 Urine Occult Blood NEGATIVE (NEGATIVE) 03/15/17 19:55 Urine Nitrite NEGATIVE (NEGATIVE) 03/15/17 19:55 Urine Bilirubin NEGATIVE (NEGATIVE) 03/15/17 19:55 Urine Urobilinogen 0.2 (NORMAL) E.U./dL (NORMAL) 03/15/17 19:55 Ur Leukocyte Esterase NEGATIVE (NEGATIVE) 03/15/17 19:55 Ur Microscopic Review NOT INDICATED 03/15/17 19:55 Urine Culture Comments NOT INDICATED 03/15/17 19:55 Serum Ketones NEGATIVE (NEGATIVE) 03/15/17 12:00 - Procedures Procedures: Procedures INSERT INFUSION DEV IN R INT JUGULAR VEIN, PERC (04/21/16) INSERTION OF INFUSION DEV INTO SUP VENA CAVA, PERC APPROACH (12/21/16) INSERTION OF INFUSION DEVICE INTO R ATRIUM, PERC APPROACH (12/04/15) TRANSFUSE NONAUT RED BLOOD CELLS IN PERIPH VEIN, PERC (01/22/17) ULTRASONOGRAPHY OF RIGHT JUGULAR VEINS, GUIDANCE (04/21/16)
[2017-03-19] MEDS: ACETAMINOPHEN 325 MG TABLET PO PRN (17:11)
[2017-03-19] MEDS: AMITRIPTYLINE 25 MG TABLET PO SCH (20:43)
[2017-03-19] MEDS ORDERED: MAG HYDROX/AL HYDROX/SIMETH 30 ML UDC PO PRN (20:56)
[2017-03-19] MEDS: PROCHLORPERAZINE 10 MG/2 ML VIAL IVP PRN (21:01)
[2017-03-20] MEDS: HYDROmorphone 2 MG TABLET PO PRN ×5 (02:30→20:19)
[2017-03-20] MEDS: GABAPENTIN 400 MG CAPSULE PO SCH ×3 (06:07→20:19)
[2017-03-20 06:28] LABS: HGB - HEMOGLOBIN 8.9 g/dL (12.0-16.0); MEAN CORPUSCULAR HGB CONC 31.1 g/dL (32.0-36.0); MEAN CORPUSCULAR VOLUME 77.1 fL (81.0-99.0); MEAN PLATELET VOLUME 7.4 fL (7.9-10.8); RED BLOOD COUNT 3.69 10^6/uL (4.20-5.40); RED CELL DISTRIBUTION WIDTH 17.1 % (12.0-15.0); WHITE BLOOD COUNT 4.1 x10^3/uL (4.8-10.8)
[2017-03-20 06:41] LABS: ALKALINE PHOSPHATASE 276 IU/L (42-121); ALT ALANINE AMINOTRANSFERASE 82 IU/L (10-60); AST ASPARTATE AMINOTRANSFERASE 83 IU/L (10-42); BILIRUBIN,TOTAL 0.2 mg/dL (0.2-1.0); BUN - BLOOD UREA NITROGEN 32 mg/dL (6-20); CARBON DIOXIDE - CO2 28 mmol/L (21-32); CHLORIDE 97 mmol/L (101-111); CREATININE 0.5 mg/dL (0.4-1.0); GFR - MDRD 140 (>89); GLUCOSE 319 mg/dL (70-100); MAGNESIUM 1.7 mg/dL (1.7-2.8); PHOSPHORUS 5.6 mg/dL (2.5-4.6); SODIUM 133 mmol/L (135-145); TOTAL PROTEIN 6.1 g/dL (6.7-8.2)
[2017-03-20] MEDS: ACETAMINOPHEN 1,000 MG/100 ML 100 ML IV PRN ×2 (08:13→15:54)
[2017-03-20] MEDS: SODIUM CHLORIDE FLUSH 0.9% 10 ML SYRINGE IVP PRN ×2 (08:14→13:34)
[2017-03-20] MEDS: diltiaZEM CD 120 MG CAPSULE PO SCH (08:20)
[2017-03-20] MEDS: SULFAMETH/TRIMETH DS 800/160 MG TABLET PO SCH ×2 (08:20→20:19)
[2017-03-20] MEDS: ASPIRIN 325 MG TABLET PO SCH ×2 (08:20→16:53)
[2017-03-20] MEDS: METOPROLOL SUCCINATE 25 MG TABLET PO SCH ×2 (08:20→20:20)
[2017-03-20] MEDS: METHOCARBAMOL 500 MG TABLET PO PRN ×2 (08:20→20:20)
[2017-03-20] MEDS: DULoxetine 20 MG CAPSULE PO SCH (08:20)
[2017-03-20] MEDS: FERROUS SULFATE 325 MG TABLET PO SCH ×2 (08:20→16:53)
[2017-03-20] MEDS: SACCHAROMYCES BOULARDII 250 MG CAPSULE PO SCH ×2 (08:20→16:53)
[2017-03-20] MEDS: CILOSTAZOL 100 MG TABLET PO SCH ×2 (08:21→20:21)
[2017-03-20] MEDS: NICOTINE 21 MG PATCH TOP SCH (08:23)
[2017-03-20] MEDS: INSULIN ASPART 300 UNIT/3 ML PEN SUBQ SCH ×7 (08:41→20:23)
[2017-03-20] MEDS: MELOXICAM 7.5 MG TABLET PO SCH ×2 (08:42→20:20)
[2017-03-20] MEDS: INSULIN GLARGINE 300 UNIT/3 ML PEN SUBQ SCH (10:00)
[2017-03-20] MEDS: clonazePAM 0.5 MG TABLET PO PRN ×2 (10:57→20:20)
[2017-03-20] MEDS: SODIUM CHLORIDE FLUSH 0.9% 10 ML SYRINGE IVP SCH ×2 (13:28→15:54)
[2017-03-20] MEDS: PROCHLORPERAZINE 10 MG/2 ML VIAL IVP PRN (13:34)
[2017-03-20] MEDS ORDERED: HYDROmorphone 2 MG TABLET PO ONE (14:00)
--- NOTE | 2017-03-20 14:38 | PROVIDER PROGRESS NOTE ---
Subjective - Prog Note Date Prog Note Date: 03/20/17 Prog Note Time: 14:36 - Subjective Subjective: A little less pain Objective - Vital Signs/Intake & Output Vital Signs: Vital Signs x48h Pulse Resp BP Pulse Ox 03/20/17 09:00 97 18 114/82 H 94 Intake & Output: Intake & Output 03/17/17 03/18/17 03/19/17 03/20/17 23:59 23:59 23:59 23:59 Intake Total 4200 2850 3200 1300 Output Total 653 175 Balance 4200 2197 3200 1125 - Lab Results Fish Bones: 03/20/17 06:15 03/20/17 06:15 Other Labs: Lab Results x24hrs 03/20/17 03/20/17 03/20/17 Range/Units 11:42 07:59 06:15 WBC (4.8-10.8) x10^3/uL RBC (4.20-5.40) 10^6/uL Hgb (12.0-16.0) g/dL Hct (37.0-47.0) % MCV (81.0-99.0) fL MCH (27.0-31.0) pg MCHC (32.0-36.0) g/dL RDW (12.0-15.0) % Plt Count (130-450) 10^3/uL MPV (7.9-10.8) fL Sodium 133 L (135-145) mmol/L Potassium 5.0 (3.5-5.0) mmol/L Chloride 97 L (101-111) mmol/L Carbon Dioxide 28 (21-32) mmol/L Anion Gap 8.0 (6-13) BUN 32 H (6-20) mg/dL Creatinine 0.5 (0.4-1.0) mg/dL Estimated GFR (MDRD) 140 (>89) Glucose 319 H (70-100) mg/dL POC Whole Bld Glucose 183 H 372 H (70 - 100) mg/dL Calcium 9.0 (8.5-10.3) mg/dL Ionized Calcium NO Phosphorus 5.6 H (2.5-4.6) mg/dL Magnesium 1.7 (1.7-2.8) mg/dL Total Bilirubin 0.2 (0.2-1.0) mg/dL AST 83 H (10-42) IU/L ALT 82 H (10-60) IU/L Alkaline Phosphatase 276 H (42-121) IU/L Total Protein 6.1 L (6.7-8.2) g/dL Albumin 3.0 L (3.2-5.5) g/dL Globulin 3.1 (2.1-4.2) g/dL Albumin/Globulin Ratio 1.0 (1.0-2.2) 03/20/17 03/19/17 03/19/17 Range/Units 06:15 20:09 15:54 WBC 4.1 L (4.8-10.8) x10^3/uL RBC 3.69 L (4.20-5.40) 10^6/uL Hgb 8.9 L (12.0-16.0) g/dL Hct 28.4 L (37.0-47.0) % MCV 77.1 L (81.0-99.0) fL MCH 24.0 L (27.0-31.0) pg MCHC 31.1 L (32.0-36.0) g/dL RDW 17.1 H (12.0-15.0) % Plt Count 323 (130-450) 10^3/uL MPV 7.4 L (7.9-10.8) fL Sodium (135-145) mmol/L Potassium (3.5-5.0) mmol/L Chloride (101-111) mmol/L Carbon Dioxide (21-32) mmol/L Anion Gap (6-13) BUN (6-20) mg/dL Creatinine (0.4-1.0) mg/dL Estimated GFR (MDRD) (>89) Glucose (70-100) mg/dL POC Whole Bld Glucose 113 H 131 H (70 - 100) mg/dL Calcium (8.5-10.3) mg/dL Ionized Calcium Phosphorus (2.5-4.6) mg/dL Magnesium (1.7-2.8) mg/dL Total Bilirubin (0.2-1.0) mg/dL AST (10-42) IU/L ALT (10-60) IU/L Alkaline Phosphatase (42-121) IU/L Total Protein (6.7-8.2) g/dL Albumin (3.2-5.5) g/dL Globulin (2.1-4.2) g/dL Albumin/Globulin Ratio (1.0-2.2) - Other Results/Comments Other Results/Comments: EXAM: Wound is benign with no active drainage. Less swelling and redness. Sensation - same. Flaps appear viable. No lymphangitis. Assessment/Plan - Problem List (1) Diabetic ulcer of toe associated with type 1 diabetes mellitus Qualifiers: Laterality: right Non-pressure ulcer stage: with other severity Qualified Code(s): E10.621 - Type 1 diabetes mellitus with foot ulcer; L97.518 - Non-pressure chronic ulcer of other part of right foot with other specified severity; L97.518 - Non-pressure chronic ulcer of other part of right foot with other specified severity
--- NOTE | 2017-03-20 17:13 | PROVIDER PROGRESS NOTE ---
Assessment/Plan - Problem List (1) Osteomyelitis of toe of right foot Assessment/Plan: Continue po antibiotic (2) S/P amputation of foot Qualifiers: Laterality: right Qualified Code(s): Z89.431 - Acquired absence of right foot Assessment/Plan: Pt had dressing change by Dr Ye who feels that it is healing well and daily dry dressing changes are advised Pt on Mobic for the throbbing pain. Pt already on po Demerol and Gabapentin and Robaxin, plus needing iv Acetominophen, as pain is not yet controlled Pt wonders about a boot, so she doesnt bang the foot in her tent. She will ask Dr Ye PT states she needs a walker. Physical Therapist claims she got one at last D[facility]. Felicitas says she did not take a front-wheeled walker home. This will need to be resolved before D[facility] (3) Diabetic acidosis without coma Qualifiers: Diabetes mellitus type: type 1 Qualified Code(s): E10.10 - Type 1 diabetes mellitus with ketoacidosis without coma Assessment/Plan: Resolved Continue meds and diet (4) Tobacco abuse Assessment/Plan: Continue patch (5) Anxiety Assessment/Plan: Pt is requesting a "mood stabilizer". Will increase her Cymbalta from 40mg daily to 60mg daily (6) Borderline personality disorder Assessment/Plan: Continue realistic expectations and communications (7) Homeless single person Assessment/Plan: Pt wonders about going to a SNF for PT after DCh. Will have SW see Pt for this possiblity (8) Methamphetamine abuse Assessment/Plan: Stable Yesterday her make-shift paraphernalia were confiscated, images taken, visitors limited now - Current Meds Current Meds: Current Medications Generic Name Dose Route Start Last Admin Trade Name Freq PRN Reason Stop Dose Admin Acetaminophen 650 - 975 mg 03/18/17 08:23 03/19/17 17:11 Tylenol PO 650 mg Q4HR PRN Administration PAIN Al Hydroxide/Mg Hydroxide 30 ml 03/19/17 20:56 03/19/17 21:51 Mylanta Plus PO 30 ml Q4HR PRN Administration INDIGESTION Amitriptyline HCl 50 mg 03/14/17 21:00 03/19/17 20:43 Elavil PO 50 mg QPM SYLVIA Administration Aspirin 325 mg 03/18/17 17:00 03/20/17 16:53 Parvez PO 325 mg BIDWM SYLVIA Administration Cilostazol 100 mg 03/14/17 21:00 03/20/17 08:21 Pletal PO 100 mg BID SYLVIA Administration Clonazepam 1 mg 03/18/17 14:28 03/20/17 10:57 Klonopin PO 1 mg BID PRN Administration Anxiety Clonidine HCl 1 patch 03/17/17 21:00 03/17/17 20:50 [id number] TOP 1 patch Q7D SYLVIA Administration Diltiazem HCl 120 mg 03/15/17 09:00 03/20/17 08:20 Cardizem Cd PO 120 mg DAILY SYLVIA Administration Duloxetine HCl 40 mg 03/15/17 09:00 03/20/17 08:20 Cymbalta PO 40 mg DAILY SYLVIA Administration Ferrous Sulfate 325 mg 03/15/17 17:00 03/20/17 16:53 Feosol PO 325 mg BIDWM SYLVIA Administration Gabapentin 400 mg 03/17/17 12:30 03/20/17 13:28 Neurontin PO 400 mg TID SYLVIA Administration Hydromorphone HCl 4 mg 03/18/17 10:22 03/20/17 15:53 Dilaudid PO 4 mg Q4H PRN Administration Severe Pain Acetaminophen 100 mls @ 400 mls/hr 03/18/17 08:23 03/20/17 16:38 Ofirmev IV Infused Q6HR PRN Infusion PAIN Insulin Aspart 7 unit 03/17/17 17:40 03/20/17 16:54 Novolog SUBQ 7 unit TIDWM SYLVIA Administration Insulin Aspart 2 - 10 unit 03/17/17 21:00 03/20/17 16:54 Novolog SUBQ 10 unit 0800,1200,1700,2100 SYLVIA Administration Protocol Insulin Glargine 60 unit 03/15/17 09:00 03/20/17 10:00 Lantus Solostar SUBQ 60 unit DAILY SYLVIA Administration Meloxicam 7.5 mg 03/14/17 21:00 03/20/17 08:42 Mobic PO 7.5 mg BID SYLVIA Administration Methocarbamol 750 mg 03/17/17 10:40 03/20/17 08:20 Robaxin PO 750 mg BID PRN Administration Spasms Metoprolol Succinate 25 mg 03/14/17 21:00 03/20/17 08:20 Toprol Xl PO 25 mg BID SYLVIA Administration Nicotine 1 patch 03/16/17 14:00 03/20/17 08:23 Nicoderm TOP 1 patch DAILY SYLVIA Administration Prochlorperazine Edisylate 10 mg 03/18/17 08:23 03/20/17 13:34 Compazine Inj IVP 10 mg Q6HR PRN Administration Nausea / Vomiting Saccharomyces Boulardii 250 mg 03/17/17 17:00 03/20/17 16:53 Florastor PO 250 mg BIDWM SYLVIA Administration Sodium Chloride 10 ml 03/14/17 22:00 03/20/17 15:54 Normal Saline Flush 0.9% IVP 10 ml Q8HR SYLVIA Administration Sodium Chloride 10 ml 03/14/17 16:18 03/20/17 13:34 Normal Saline Flush 0.9% IVP 10 ml PRN PRN Administration NEEDED PER PROVIDER ORDERS Trimethoprim/Sulfamethoxazole 1 tab 03/18/17 11:00 03/20/17 08:20 Bactrim Ds 800/160 PO 1 tab BID SYLVIA Administration - Lab Result Fish Bone Diagrams: 03/20/17 06:15 03/20/17 06:15 Subjective - Subjective Patient Reports: Feeling Better, Pain (The toe pain is throbbing and radiates to the arch of her foot. She has a sharp,burning intermittent pain from the R foot running up the back of her leg to her thigh) Nursing Reports: Other (Pt was able to ambulate by "hopping" using a walker, with PT) Objective Vital Signs: Vital Signs - 24 hr 03/19/17 03/20/17 03/20/17 20:00 00:00 09:00 Temperature 36.2 C L 36.0 C L Heart Rate [ 121 H 92 97 Brachial] Respiratory 18 20 18 Rate Blood Pressure 142/77 H [Left Ankle] Blood Pressure 114/82 H [Left Radial artery] Blood Pressure 91/58 L [Right Brachial artery] O2 Saturation 99 97 94 Oxygen O2 Source Room air I&O (Last 24 Hrs): Intake and Output Totals x24h 03/18/17 03/19/17 03/20/17 23:59 23:59 23:59 Intake Total 2850 3200 1500 Output Total 653 175 Balance 2197 3200 1325 General: Alert, Oriented x3 HEENT: Mucous membr. moist/pink Neck: Supple Neuro: Oriented Times 3 Cardiovascular: Regular rate Respiratory: No respiratory distress Abdomen: Soft Extremities: Other (R great toe bandaged, dry) - Results Results: Laboratory Results WBC 4.1 x10^3/uL (4.8-10.8) L 03/20/17 06:15 RBC 3.69 10^6/uL (4.20-5.40) L 03/20/17 06:15 Hgb 8.9 g/dL (12.0-16.0) L 03/20/17 06:15 Hct 28.4 % (37.0-47.0) L 03/20/17 06:15 MCV 77.1 fL (81.0-99.0) L 03/20/17 06:15 MCH 24.0 pg (27.0-31.0) L 03/20/17 06:15 MCHC 31.1 g/dL (32.0-36.0) L 03/20/17 06:15 RDW 17.1 % (12.0-15.0) H 03/20/17 06:15 Plt Count 323 10^3/uL (130-450) 03/20/17 06:15 MPV 7.4 fL (7.9-10.8) L 03/20/17 06:15 Neut # 3.7 10^3/uL (1.5-6.6) 03/16/17 08:35 Lymph # 2.7 10^3/uL (1.5-3.5) 03/16/17 08:35 [place] # 0.5 10^3/uL (0.0-1.0) 03/16/17 08:35 Eos # 0.2 10^3/uL (0.0-0.7) 03/16/17 08:35 Baso # 0.1 10^3/uL (0.0-0.1) 03/16/17 08:35 Absolute Nucleated RBC 0.00 x10^3/uL 03/16/17 08:35 Nucleated RBC % 0.0 /100WBC 03/16/17 08:35 Manual Slide Review Indicated 03/14/17 15:30 Platelet Estimate INCREASED (>450,000) (NORMAL) 03/14/17 15:30 Platelet Morphology 1+ LARGE PLATELETS (NORMAL) 03/14/17 15:30 RBC Morph Micro Appear 1+ ANISOCYTOSIS (NORMAL) 03/14/17 15:30 PT 9.7 secs (9.9-12.6) L 03/18/17 05:45 INR 0.9 (0.8-1.2) 03/18/17 05:45 VBG pH 7.050 (7.31-7.41) L 03/14/17 17:20 VBG pCO2 17.5 mmHg (41-51) L 03/14/17 17:20 VBG pO2 85.0 mmHg (25-47) H 03/14/17 17:20 VBG HCO3 4.7 mmol/L (23-28) L 03/14/17 17:20 VBG Total CO2 5.3 mmol/L (24-29) L 03/14/17 17:20 VBG O2 Saturation 92.8 % (60-80) H 03/14/17 17:20 VBG Base Excess -23.9 mmol/L (-2 - +2) L 03/14/17 17:20 Sodium 133 mmol/L (135-145) L 03/20/17 06:15 Potassium 5.0 mmol/L (3.5-5.0) 03/20/17 06:15 Chloride 97 mmol/L (101-111) L 03/20/17 06:15 Carbon Dioxide 28 mmol/L (21-32) 03/20/17 06:15 Anion Gap 8.0 (6-13) 03/20/17 06:15 BUN 32 mg/dL (6-20) H 03/20/17 06:15 Creatinine 0.5 mg/dL (0.4-1.0) 03/20/17 06:15 Estimated GFR (MDRD) 140 (>89) 03/20/17 06:15 Glucose 319 mg/dL (70-100) H 03/20/17 06:15 POC Whole Bld Glucose 344 mg/dL (70 - 100) H 03/20/17 16:19 Glycated Hemoglobin 10.9 % (4.6-6.2) H 03/15/17 07:51 Estim Average Glucose 266 (70-100) H 03/15/17 07:51 Lactic Acid 1.3 mmol/L (0.5-2.2) 03/14/17 17:20 Calcium 9.0 mg/dL (8.5-10.3) 03/20/17 06:15 Ionized Calcium NO 03/20/17 06:15 Phosphorus 5.6 mg/dL (2.5-4.6) H 03/20/17 06:15 Magnesium 1.7 mg/dL (1.7-2.8) 03/20/17 06:15 Total Bilirubin 0.2 mg/dL (0.2-1.0) 03/20/17 06:15 AST 83 IU/L (10-42) H 03/20/17 06:15 ALT 82 IU/L (10-60) H 03/20/17 06:15 Alkaline Phosphatase 276 IU/L (42-121) H 03/20/17 06:15 Troponin I 0.06 ng/mL (<0.49) 03/15/17 07:50 Total Protein 6.1 g/dL (6.7-8.2) L 03/20/17 06:15 Albumin 3.0 g/dL (3.2-5.5) L 03/20/17 06:15 Globulin 3.1 g/dL (2.1-4.2) 03/20/17 06:15 Albumin/Globulin Ratio 1.0 (1.0-2.2) 03/20/17 06:15 Serum HCG, Qual NEGATIVE 03/14/17 15:30 Urine Color YELLOW 03/15/17 19:55 Urine Clarity CLEAR (CLEAR) 03/15/17 19:55 Urine pH 6.0 PH (5.0-7.5) 03/15/17 19:55 Ur Specific [place] 1.010 (1.002-1.030) 03/15/17 19:55 Urine Protein NEGATIVE mg/dL (NEGATIVE) 03/15/17 19:55 Urine Glucose (UA) 500 mg/dL (NEGATIVE) H 03/15/17 19:55 Urine Ketones NEGATIVE mg/dL (NEGATIVE) 03/15/17 19:55 Urine Occult Blood NEGATIVE (NEGATIVE) 03/15/17 19:55 Urine Nitrite NEGATIVE (NEGATIVE) 03/15/17 19:55 Urine Bilirubin NEGATIVE (NEGATIVE) 03/15/17 19:55 Urine Urobilinogen 0.2 (NORMAL) E.U./dL (NORMAL) 03/15/17 19:55 Ur Leukocyte Esterase NEGATIVE (NEGATIVE) 03/15/17 19:55 Ur Microscopic Review NOT INDICATED 03/15/17 19:55 Urine Culture Comments NOT INDICATED 03/15/17 19:55 Serum Ketones NEGATIVE (NEGATIVE) 03/15/17 12:00 - Procedures Procedures: Procedures INSERT INFUSION DEV IN R INT JUGULAR VEIN, PERC (04/21/16) INSERTION OF INFUSION DEV INTO SUP VENA CAVA, PERC APPROACH (12/21/16) INSERTION OF INFUSION DEVICE INTO R ATRIUM, PERC APPROACH (12/04/15) TRANSFUSE NONAUT RED BLOOD CELLS IN PERIPH VEIN, PERC (01/22/17) ULTRASONOGRAPHY OF RIGHT JUGULAR VEINS, GUIDANCE (04/21/16)
[2017-03-20] MEDS ORDERED: DULoxetine 20 MG CAPSULE PO SCH (17:28)
[2017-03-20] MEDS: AMITRIPTYLINE 25 MG TABLET PO SCH (20:20)
[2017-03-21] MEDS: HYDROmorphone 2 MG TABLET PO PRN ×4 (00:04→12:10)
[2017-03-21] MEDS: ACETAMINOPHEN 325 MG TABLET PO PRN ×2 (00:04→06:24)
[2017-03-21] MEDS: GABAPENTIN 400 MG CAPSULE PO SCH (06:24)
[2017-03-21] MEDS: SODIUM CHLORIDE FLUSH 0.9% 10 ML SYRINGE IVP SCH (06:24)
[2017-03-21] MEDS: CILOSTAZOL 100 MG TABLET PO SCH (08:16)
[2017-03-21] MEDS: FERROUS SULFATE 325 MG TABLET PO SCH (08:17)
[2017-03-21] MEDS: SULFAMETH/TRIMETH DS 800/160 MG TABLET PO SCH (08:17)
[2017-03-21] MEDS: MELOXICAM 7.5 MG TABLET PO SCH (08:17)
[2017-03-21] MEDS: METOPROLOL SUCCINATE 25 MG TABLET PO SCH (08:17)
[2017-03-21] MEDS: ASPIRIN 325 MG TABLET PO SCH (08:17)
[2017-03-21] MEDS: SACCHAROMYCES BOULARDII 250 MG CAPSULE PO SCH (08:17)
[2017-03-21] MEDS: diltiaZEM CD 120 MG CAPSULE PO SCH (08:17)
[2017-03-21] MEDS: INSULIN ASPART 300 UNIT/3 ML PEN SUBQ SCH ×4 (08:21→12:09)
[2017-03-21] MEDS: INSULIN GLARGINE 300 UNIT/3 ML PEN SUBQ SCH (08:22)
[2017-03-21 08:23] VITALS: BP 128/82
[2017-03-21] MEDS: NICOTINE 21 MG PATCH TOP SCH (08:23)
[2017-03-21 08:25] LABS: HGB - HEMOGLOBIN 9.9 g/dL (12.0-16.0); MEAN CORPUSCULAR HEMOGLOBIN 24.3 pg (27.0-31.0); MEAN CORPUSCULAR HGB CONC 33.9 g/dL (32.0-36.0); MEAN CORPUSCULAR VOLUME 71.6 fL (81.0-99.0); MEAN PLATELET VOLUME 7.2 fL (7.9-10.8); RED BLOOD COUNT 4.07 10^6/uL (4.20-5.40); RED CELL DISTRIBUTION WIDTH 17.2 % (12.0-15.0); WHITE BLOOD COUNT 5.7 x10^3/uL (4.8-10.8)
[2017-03-21 08:32] LABS: ALBUMIN 3.1 g/dL (3.2-5.5); ALBUMIN/GLOBULIN RATIO 0.9 (1.0-2.2); ALKALINE PHOSPHATASE 233 IU/L (42-121); ALT ALANINE AMINOTRANSFERASE 65 IU/L (10-60); AST ASPARTATE AMINOTRANSFERASE 33 IU/L (10-42); BILIRUBIN,TOTAL 0.2 mg/dL (0.2-1.0); BUN - BLOOD UREA NITROGEN 24 mg/dL (6-20); CARBON DIOXIDE - CO2 27 mmol/L (21-32); CHLORIDE 94 mmol/L (101-111); CREATININE 0.4 mg/dL (0.4-1.0); GFR - MDRD 182 (>89); GLUCOSE 239 mg/dL (70-100); MAGNESIUM 1.6 mg/dL (1.7-2.8); PHOSPHORUS 4.7 mg/dL (2.5-4.6); SODIUM 134 mmol/L (135-145); TOTAL PROTEIN 6.4 g/dL (6.7-8.2)
--- NOTE | 2017-03-21 12:17 | Discharge Plan ---
Discharge Plan Disposition: Home, Self Care Condition: Fair Prescriptions: Amitriptyline [Elavil] 50 mg PO QPM #60 tablet Blood Sugar Diagnostic [Glucometer Strips] 1 each MC QID #120 strip Blood-Glucose Meter [Glucometer] 1 each MC QID #1 each Cilostazol [Pletal] 100 mg PO BID #30 tablet clonazePAM [KlonoPIN] 1 mg PO BID PRN #30 tablet PRN Reason: Anxiety cloNIDine [Catapres] 0.1 mg PO BID #60 tablet Compr.stocking,Thigh,Reg,Large [Compression Thigh Stocking] 1 each MC DAILY #1 each Crutch [Crutches] 1 each MC DAILY #1 each diltiaZEM CD [Cardizem Cd] 120 mg PO DAILY #30 capsule DULoxetine [Cymbalta] 60 mg PO DAILY #90 capsule Ferrous Sulfate 325 mg PO DAILY #30 tablet Gabapentin 600 mg PO TID #90 capsule HYDROmorphone [Dilaudid] 4 mg PO Q4H PRN #28 tablet PRN Reason: Pain Insulin Aspart [NovoLOG] 7 unit SUBQ TIDWM #2 pen Insulin Glargine [Lantus Solostar] 60 unit SUBQ DAILY #10 pen Meloxicam [Mobic] 7.5 mg PO BID #60 tablet Methocarbamol [Robaxin] 500 mg PO BID PRN #30 tablet PRN Reason: Spasms Metoprolol Succinate [Toprol Xl] 25 mg PO BID #60 tablet [place], Disposable [Easy Touch Hypodermic Needle] 1 each MC QID #90 dis.needle Oxybutynin [Ditropan] 5 mg PO BID #60 tablet Saccharomyces Boulardii [Florastor] 250 mg PO BID #30 capsule Sulfamethox/Trimeth 800/160 [Bactrim Ds] 1 tab PO BID #14 tablet Diet: Diabetic Activity Restrictions: Wt Bearing as Tolerated Shower Restrictions: No Driving Restrictions: No Assistance Devices: Crutches Weight Bearing: Full Weight Additional Instructions or Follow Up instructions: You presented to the emergency department with diabetic ketoacidosis. We treated your DKA with an insulin drip and IV fluids in the intensive care unit and your DKA resolved. You were found to have an infection of your big toe on her left foot. This had spread to the bone and required amputation. You did receive amputation of the distal part of your big toe on her left foot. You are now able to ambulate on the foot and were well enough to be able to be discharged home. We discharged home with prescriptions for all of your medications and they have been sent to your pharmacy in [place]. I have also given a handwritten prescription for Klonopin and Dilaudid. He will need Dilaudid for pain and therefore have been given a prescription that should get you through the next week. I have also prescribed you needles for your insulin pens as well as a glucometer and glucometer strips. You have also been given a prescription for crutches all of which have been sent to your pharmacy. We have given you information to follow-up with a primary care physician through whom you should be able to get a referral to a surveillance technician and follow-up for further care of your foot. You also need to follow-up with your primary care physician for further treatment of your diabetes. We are giving you a cab voucher to help to get you to a pharmacy. We understand that you have difficult living circumstances and a situation and we will to new to provide you with the resources that we can. No Smoking: If you smoke, Please STOP! Call for help.
--- NOTE | 2017-03-21 14:39 | DISCHARGE SUMMARY ---
"Discharge Summary Admit Date: 03/14/17 Discharge Date: 03/21/17 Discharging Provider: Mason Mathews MD Primary Care Provider: [facility] Code Status: Attempt Resuscitation Condition at Discharge: Fair Discharge Disposition: 01 Home, Self Care - DIAGNOSES Admission Diagnoses: 1. Diabetic ketoacidosis 2. Anxiety 3. Borderline personality disorder 4. Hyperkalemia 5. Methamphetamine abuse 6. Homeless single person 7. Personal history of noncompliance with medical treatment Discharge Diagnoses with Status of Each Condition: 1. Osteomyelitis of toe of right foot status post partial amputation: Stable 2. Diabetic ketoacidosis: Resolved 3. Anxiety: Stable 4. Borderline personality disorder: Stable 5. Hypertension: Stable 6. Methamphetamine abuse: Stable 7. Homeless single person: Stable 8. Personal history of noncompliance with medical treatment: Stable 9. Tobacco abuse: Stable - HPI History of Present Illness: Patient is a 36-year-old female with a past medical history significant for type 1 diabetes, chronic pain from fibromyalgia, chronic sinus tachycardia, hypertension, depression, borderline personality disorder, anxiety, valvular heart disease with moderate pulmonary hypertension and moderate tricuspid regurgitation with history of noncompliance with medication and multiple hospitalizations for diabetic ketoacidosis who presented to the emergency department with a chief complaint of nausea, vomiting, thirst and high blood glucose. She stated that she had been taking her insulin and believe that the trigger of her DKA was an infected right foot. The patient stated that she had frostbite on the foot earlier in the winter and her foot became infected. She has been taking Bactrim but had not followed up in the wound clinic. On presentation the patient denied any fevers, chills, coughing or diarrhea. The patient had had a recent admission to [facility] and records were obtained the patient had said that she was admitted for cellulitis due to a frostbite of her right first and fourth toes and had had MRSA bacteremia. The patient's records however did not reveal any positive blood cultures. On presentation to the emergency department the patient was afebrile she was tachycardic. She was found to be in diabetic ketoacidosis with a anion gap of 32 and a blood gas showing an ABG of 7.0. The patient had positive serum ketones and blood glucose was 676. Patient was admitted to the intensive care unit and placed on an insulin drip for diabetic ketoacidosis. - CONSULTS | PROCEDURES Consultations: Orthopedic Surgery - Dr Ye Procedures: Partial right great toe amputation - HOSPITAL COURSE Hospital Course: During the hospitalization the patient was initially started on treatment for DKA with insulin drip and IV fluids. The patient's DKA resolved over the first 24 hours of hospitalization. She was taken off of the insulin drip and placed back on her home dose of Lantus and sliding scale insulin. Patient's blood glucose appeared to be stable however on day 2 of hospitalization the patient was complaining of increasing pain in her right foot. Specifically in her right big toe where she had increased swelling erythema and drainage. An x-ray was obtained of the right big toe and revealed osteomyelitis of the distal tuft of the great toe. Orthopedic surgery was consulted and advised that the patient get an amputation of the distal portion of her right big toe. Initially the patient was reluctant however it was explained to the patient that given her poor compliance with her diabetes it was likely that the infection would spread if not treated aggressively with amputation and she would be at risk of losing her foot or potentially even her leg. The patient did agree to amputation which was performed by the orthopedic surgeon Dr. Shakeel Ye on 03/18/2017. Postop the patient did well she was ambulating around in the room and was seen by physical therapy who did not recommend any need for home PT or rehab. The patient's cultures of her wound grew out staph aureus and beta -hemolytic strep group B. Both were susceptible to Bactrim therefore patient was placed on oral Bactrim. The patient will continue oral Bactrim for 7 additional days. Patient had significant concerns about being homeless and whether she would be able to take care of herself now with this new amputation. The social work did provide the patient with resources about shelters. The patient was also provided with information about setting up a primary care appointment. The patient was prescribed her medications and given a medication for pain. The patient was very unhappy that she would have to be discharged but at this point there was no choice as the patient was medically cleared and unfortunately did not qualify for rehab. Patient is high risk for readmission as she is very noncompliant and homeless. We are also concerned about the possibility that the patient may continue to use methamphetamine. The patient was in stable condition at that time of discharge. - ALLERGIES Allergies/Adverse Reactions: Allergies Allergy/AdvReac Type Severity Reaction Status Date / Time codeine Allergy Hives Verified 03/14/17 13:38 hydrocodone Allergy Hives Verified 03/14/17 13:38 milk AdvReac Cramps Verified 03/14/17 13:38 nitrofurantoin AdvReac Headache Verified 03/14/17 13:38 [From Macrobid] PAPER TAPE AdvReac Unknown Uncoded 03/14/17 13:38 - MEDICATIONS Home Medications: Ambulatory Orders Medication Instructions Recorded Confirmed Acetaminophen [Tylenol] 650 mg PO Q6HR tablet 02/03/17 03/15/17 Amitriptyline [Elavil] 50 mg PO QPM 30 Days #30 tablet 02/03/17 03/15/17 DULoxetine [Cymbalta] 40 mg PO DAILY #30 capsule 02/03/17 03/15/17 Insulin Aspart [NovoLOG] 10 unit SUBQ TIDWM #10 pen 02/03/17 03/15/17 Sulfamethox/Trimeth 800/160 1 each PO BID #14 tablet 02/26/17 03/15/17 [Bactrim Ds] Amitriptyline [Elavil] 50 mg PO QPM #60 tablet 03/21/17 Blood Sugar Diagnostic [Glucometer 1 each QID #120 strip 03/21/17 Strips] Blood-Glucose Meter [Glucometer] 1 each QID #1 each 03/21/17 Cilostazol [Pletal] 100 mg PO BID #30 tablet 03/21/17 Compr.stocking,Thigh,Reg,Large 1 each MC DAILY #1 each 03/21/17 [Compression Thigh Stocking] Crutch [Crutches] 1 each DAILY #1 each 03/21/17 DULoxetine [Cymbalta] 60 mg PO DAILY #90 capsule 03/21/17 Ferrous Sulfate 325 mg PO DAILY #30 tablet 03/21/17 Gabapentin 600 mg PO TID #90 capsule 03/21/17 HYDROmorphone [Dilaudid] 4 mg PO Q4H PRN #28 tablet 03/21/17 Insulin Aspart [NovoLOG] 7 unit SUBQ TIDWM #2 pen 03/21/17 Insulin Glargine [Lantus Solostar] 60 unit SUBQ DAILY #10 pen 03/21/17 Meloxicam [Mobic] 7.5 mg PO BID #60 tablet 03/21/17 Methocarbamol [Robaxin] 500 mg PO BID PRN #30 tablet 03/21/17 Metoprolol Succinate [Toprol Xl] 25 mg PO BID #60 tablet 03/21/17 [place], Disposable [Easy Touch 1 each MC QID #90 dis.needle 03/21/17 Hypodermic Needle] Oxybutynin [Ditropan] 5 mg PO BID #60 tablet 03/21/17 Saccharomyces Boulardii [Florastor] 250 mg PO BID #30 capsule 03/21/17 Sulfamethox/Trimeth 800/160 1 tab PO BID #14 tablet 03/21/17 [Bactrim Ds] cloNIDine [Catapres] 0.1 mg PO BID #60 tablet 03/21/17 clonazePAM [KlonoPIN] 1 mg PO BID PRN #30 tablet 03/21/17 diltiaZEM CD [Cardizem Cd] 120 mg PO DAILY #30 capsule 03/21/17 - PHYSICAL EXAM AT DISCHARGE General Appearance: positive: Alert, Anxious, Other (Angry, manipulative ) Eyes Bilateral: positive: Normal inspection, PERRL, EOMI, No lid inflammation, Conjunctivae nml, No scleral icterus ENT: positive: ENT inspection nml, Pharynx nml, No signs of dehydration. negative: Purulent nasal drainage, Pharyngeal erythema, Oral lesions Neck: positive: Nml inspection, Thyroid nml, No JVD, Trachea midline. negative : Thyromegaly, Lymphadenopathy (R), Lymphadenopathy (L), Stiff neck, Kernig's sign, Carotid bruit, Tracheal deviation Respiratory: positive: Chest non-tender, No respiratory distress, Breath sounds nml. negative: Wheezes, Rales, Rhonchi Cardiovascular: positive: No murmur, No gallop, Tachycardia Peripheral Pulses: positive: 2+ Abdomen: positive: Non-tender, No organomegaly, Nml bowel sounds, No distention. negative: Guarding, Rebound, Hepatomegaly Back: positive: Nml inspection. negative: CVA tenderness (R), CVA tenderness (L ) Skin: positive: Other (Right big toe with post op changes after partial amputation) Extremities: positive: Full ROM, No pedal edema, Other (Right big toe with stitches ) Neurologic/Psychiatric: positive: Oriented x3, CN's nml (2-12), Motor nml, Sensation nml, Depressed mood/affect (Angry) - LABS Result Diagrams: 03/21/17 08:00 03/21/17 08:00 Other Lab Results: Laboratory Results WBC 5.7 x10^3/uL (4.8-10.8) 03/21/17 08:00 RBC 4.07 10^6/uL (4.20-5.40) L 03/21/17 08:00 Hgb 9.9 g/dL (12.0-16.0) L 03/21/17 08:00 Hct 29.2 % (37.0-47.0) L 03/21/17 08:00 MCV 71.6 fL (81.0-99.0) L 03/21/17 08:00 MCH 24.3 pg (27.0-31.0) L 03/21/17 08:00 MCHC 33.9 g/dL (32.0-36.0) 03/21/17 08:00 RDW 17.2 % (12.0-15.0) H 03/21/17 08:00 Plt Count 331 10^3/uL (130-450) 03/21/17 08:00 MPV 7.2 fL (7.9-10.8) L 03/21/17 08:00 Neut # 3.7 10^3/uL (1.5-6.6) 03/16/17 08:35 Lymph # 2.7 10^3/uL (1.5-3.5) 03/16/17 08:35 [place] # 0.5 10^3/uL (0.0-1.0) 03/16/17 08:35 Eos # 0.2 10^3/uL (0.0-0.7) 03/16/17 08:35 Baso # 0.1 10^3/uL (0.0-0.1) 03/16/17 08:35 Absolute Nucleated RBC 0.00 x10^3/uL 03/16/17 08:35 Nucleated RBC % 0.0 /100WBC 03/16/17 08:35 Manual Slide Review Indicated 03/14/17 15:30 Platelet Estimate INCREASED (>450,000) (NORMAL) 03/14/17 15:30 Platelet Morphology 1+ LARGE PLATELETS (NORMAL) 03/14/17 15:30 RBC Morph Micro Appear 1+ ANISOCYTOSIS (NORMAL) 03/14/17 15:30 PT 9.7 secs (9.9-12.6) L 03/18/17 05:45 INR 0.9 (0.8-1.2) 03/18/17 05:45 VBG pH 7.050 (7.31-7.41) L 03/14/17 17:20 VBG pCO2 17.5 mmHg (41-51) L 03/14/17 17:20 VBG pO2 85.0 mmHg (25-47) H 03/14/17 17:20 VBG HCO3 4.7 mmol/L (23-28) L 03/14/17 17:20 VBG Total CO2 5.3 mmol/L (24-29) L 03/14/17 17:20 VBG O2 Saturation 92.8 % (60-80) H 03/14/17 17:20 VBG Base Excess -23.9 mmol/L (-2 - +2) L 03/14/17 17:20 Sodium 134 mmol/L (135-145) L 03/21/17 08:00 Potassium 4.7 mmol/L (3.5-5.0) 03/21/17 08:00 Chloride 94 mmol/L (101-111) L 03/21/17 08:00 Carbon Dioxide 27 mmol/L (21-32) 03/21/17 08:00 Anion Gap 13.0 (6-13) 03/21/17 08:00 BUN 24 mg/dL (6-20) H 03/21/17 08:00 Creatinine 0.4 mg/dL (0.4-1.0) 03/21/17 08:00 Estimated GFR (MDRD) 182 (>89) 03/21/17 08:00 Glucose 239 mg/dL (70-100) H 03/21/17 08:00 POC Whole Bld Glucose 208 mg/dL (70 - 100) H 03/21/17 11:58 Glycated Hemoglobin 10.9 % (4.6-6.2) H 03/15/17 07:51 Estim Average Glucose 266 (70-100) H 03/15/17 07:51 Lactic Acid 1.3 mmol/L (0.5-2.2) 01/21/18 17:20 Calcium 9.0 mg/dL (8.5-10.3) 03/21/17 08:00 Ionized Calcium NO 03/21/17 08:00 Phosphorus 4.7 mg/dL (2.5-4.6) H 03/21/17 08:00 Magnesium 1.6 mg/dL (1.7-2.8) L 03/21/17 08:00 Total Bilirubin 0.2 mg/dL (0.2-1.0) 03/21/17 08:00 AST 33 IU/L (10-42) 03/21/17 08:00 ALT 65 IU/L (10-60) H 03/21/17 08:00 Alkaline Phosphatase 233 IU/L (42-121) H 03/21/17 08:00 Troponin I 0.06 ng/mL (<0.49) 03/15/17 07:50 Total Protein 6.4 g/dL (6.7-8.2) L 03/21/17 08:00 Albumin 3.1 g/dL (3.2-5.5) L 03/21/17 08:00 Globulin 3.3 g/dL (2.1-4.2) 03/21/17 08:00 Albumin/Globulin Ratio 0.9 (1.0-2.2) L 03/21/17 08:00 Serum HCG, Qual NEGATIVE 03/14/17 15:30 Urine Color YELLOW 03/15/17 19:55 Urine Clarity CLEAR (CLEAR) 03/15/17 19:55 Urine pH 6.0 PH (5.0-7.5) 03/15/17 19:55 Ur Specific [place] 1.010 (1.002-1.030) 03/15/17 19:55 Urine Protein NEGATIVE mg/dL (NEGATIVE) 03/15/17 19:55 Urine Glucose (UA) 500 mg/dL (NEGATIVE) H 03/15/17 19:55 Urine Ketones NEGATIVE mg/dL (NEGATIVE) 03/15/17 19:55 Urine Occult Blood NEGATIVE (NEGATIVE) 03/15/17 19:55 Urine Nitrite NEGATIVE (NEGATIVE) 03/15/17 19:55 Urine Bilirubin NEGATIVE (NEGATIVE) 03/15/17 19:55 Urine Urobilinogen 0.2 (NORMAL) E.U./dL (NORMAL) 03/15/17 19:55 Ur Leukocyte Esterase NEGATIVE (NEGATIVE) 03/15/17 19:55 Ur Microscopic Review NOT INDICATED 03/15/17 19:55 Urine Culture Comments NOT INDICATED 03/15/17 19:55 Serum Ketones NEGATIVE (NEGATIVE) 03/15/17 12:00 - DIAGNOSTIC IMAGING Diagnostic Imaging Results: Final report reviewed Diagnostic Imaging Results Comments: X-ray right foot Impression: Osteomyelitis of the distal tuft of the great toe Chest x-ray impression: Right arm PICC extending up the right jugular vein Chest x-ray impression: 1. Left approach PICC tip is in the right atrium. The tip is approximately 3 cm below the cavoatrial junction. 2. Lungs remain clear - FOLLOW UP Follow Up: Patient was discharged from [facility] after partial amputation of her right big toe. She will continue oral antibiotics for 1 week with Bactrim. Patient was continued on her home dose of Lantus and given prescriptions for her chronic home medications. The patient was also given a prescription for crutches and compression stockings. She was given information for primary care physicians on the [place] and information regarding shelters on the [place]. - TIME SPENT Time Spent in Discharge (Minutes): 55"
== END 2017-03-21 13:50 | disposition home or self-care (01) | DRG 617 ==
LOC: EDUNIT# → ED 13:29 → ICU 16:18 → MS3 03-17 03:47
PROVIDERS: ADMIT Hospitalist; ATTEND Internal Medicine
PROC: 05H533Z Insertion of Infusion Device into Right Subclavian Vein, Percutaneous Approach (ICD-10-PCS; 2017-03-16)
PROC: 0Y6P0Z3 Detachment at Right 1st Toe, Low, Open Approach (ICD-10-PCS; principal; 2017-03-18 07:30)
DX: E10.10 Type 1 diabetes mellitus with ketoacidosis without coma (principal); M86.171 Other acute osteomyelitis, right ankle and foot; E10.69 Type 1 diabetes mellitus with other specified complication; F41.9 Anxiety disorder, unspecified; F60.3 Borderline personality disorder; I10 Essential (primary) hypertension; F15.10 Other stimulant abuse, uncomplicated; B95.61 Methicillin susceptible Staphylococcus aureus infection as the cause of diseases classified elsewhere; B95.1 Streptococcus, group B, as the cause of diseases classified elsewhere; E10.42 Type 1 diabetes mellitus with diabetic polyneuropathy; E87.5 Hyperkalemia; M79.7 Fibromyalgia; R00.0 Tachycardia, unspecified; I07.1 Rheumatic tricuspid insufficiency; F17.210 Nicotine dependence, cigarettes, uncomplicated; Z91.19 Patient's noncompliance with other medical treatment and regimen; Z79.4 Long term (current) use of insulin; Z59.0 Homelessness; Z79.899 Other long term (current) drug therapy
CPT/HCPCS: 36415; 71045; 80048; 80053; 81001; 81003; 82009; 82803; 82947; 83036; 83605; 83735; 84100; 84484; 84703; 85025; 85610; 87040; 87070; 87086; 87150; 87205; 88305; 88311; 93005; 96361; 96365; 99283; 99284

== ENCOUNTER 2017-03-29 09:03 | Outpatient (CLI) | payer MEDICAID | END 2017-03-29 09:04 | disposition critical access hospital (66) | LOC: EMS 09:03 | PROVIDERS: ATTEND Surgery | DX: R07.9 Chest pain, unspecified (principal); R11.2 Nausea with vomiting, unspecified; R73.09 Other abnormal glucose | CPT/HCPCS: A0425; A0429 ==

== ENCOUNTER 2017-03-29 09:23 | Inpatient (IN) | payer MEDICAID ==
[2017-03-29] MEDS ORDERED: PROMETHAZINE INJ 25 MG in SODIUM CHLORIDE 0.9% 50 ML IV STA (09:29)
[2017-03-29] MEDS ORDERED: SODIUM CHLORIDE 0.9% 1,000 ML IV ONE (09:29)
--- NOTE | 2017-03-29 09:32 | ED Physician Documentation ---
History of Present Illness - Stated complaint Stated Complaint: DKA - Additonal information Additional information: hx from pt and EMS 36 f well known to [facility] poorly controlled non compliant IDDM meth user admitted < 2 weeks ago for DKA and also had to have a R great toe amputation 2/ 2 osteo which developed 2/2 ulcer 2/2 frostbite per EMS pt was found found sleeping in a pick-up in cold wet clothes vomiting and her glucose was "high" pts only complaint right now seems to be that she is cold and thirsty - she is very focused on asking for ice chips and not answering questions or cooperating Review of Systems Constitutional: denies: Fever Cardiac: denies: Chest pain / pressure Respiratory: denies: Cough GI: reports: Nausea, Vomiting. denies: Abdominal Pain Musculoskeletal: reports: Other (recent R great toe ampuation) PD PAST MEDICAL HISTORY - Past Medical History Cardiovascular: Hypertension, High cholesterol, Peripheral Vascular Disease, [place] Respiratory: None Neuro: Peripheral neuropathy Endocrine/Autoimmune: Type 1 diabetes GI: Pancreatitis TELEVISION REPAIRMAN: None : None HEENT: None Psych: Depression, Anxiety, Panic attacks Musculoskeletal: Fibromyalgia Derm: None - Past Surgical History Past Surgical History: Yes General: Cholecystectomy HEENT: Tonsil/Adenoidectomy - Present Medications Home Medications: Ambulatory Orders Medication Instructions Recorded Confirmed Amitriptyline [Elavil] 50 mg PO QPM 30 Days #30 tablet 02/03/17 03/29/17 Cilostazol [Pletal] 100 mg PO BID #30 tablet 03/21/17 03/29/17 DULoxetine [Cymbalta] 60 mg PO DAILY #90 capsule 03/21/17 03/29/17 Ferrous Sulfate 325 mg PO DAILY #30 tablet 03/21/17 03/29/17 Gabapentin 600 mg PO TID #90 capsule 03/21/17 03/29/17 HYDROmorphone [Dilaudid] 4 mg PO Q4H PRN #28 tablet 03/21/17 03/29/17 Insulin Aspart [NovoLOG] 7 unit SUBQ TIDWM #2 pen 03/21/17 03/29/17 Insulin Glargine [Lantus Solostar] 60 unit SUBQ DAILY #10 pen 03/21/17 03/29/17 Meloxicam [Mobic] 7.5 mg PO BID #60 tablet 03/21/17 03/29/17 Methocarbamol [Robaxin] 500 mg PO BID PRN #30 tablet 03/21/17 03/29/17 Metoprolol Succinate [Toprol Xl] 25 mg PO BID #60 tablet 03/21/17 03/29/17 Oxybutynin [Ditropan] 5 mg PO BID #60 tablet 03/21/17 03/29/17 cloNIDine [Catapres] 0.1 mg PO BID #60 tablet 03/21/17 03/29/17 clonazePAM [KlonoPIN] 1 mg PO BID PRN #30 tablet 03/21/17 03/29/17 diltiaZEM CD [Cardizem Cd] 120 mg PO DAILY #30 capsule 03/21/17 03/29/17 - Allergies Allergies/Adverse Reactions: Allergies Allergy/AdvReac Type Severity Reaction Status Date / Time codeine Allergy Hives Verified 03/14/17 13:38 hydrocodone Allergy Hives Verified 03/14/17 13:38 milk AdvReac Cramps Verified 03/14/17 13:38 nitrofurantoin AdvReac Headache Verified 03/14/17 13:38 [From Macrobid] PAPER TAPE AdvReac Unknown Uncoded 03/14/17 13:38 - Social History Does the pt smoke?: Yes Smoking Status: Current every day smoker Does the pt drink ETOH?: No Does the pt have substance abuse?: No - Immunizations Immunizations are current?: Yes - POLST Patient has POLST: No POLST Status: Full Code PD ED PE NORMAL - Vitals Vital signs reviewed: Yes - General General: Other (awake alert angry agitated) - HEENT HEENT: PERRL. No: Moist mucous membranes (dry) - Neck Neck: Supple, no meningeal sign - Cardiac Cardiac: RRR - Respiratory Respiratory: Clear bilaterally - Abdomen Abdomen: Non tender - Derm Derm: Other (sincere feet icy cold white and R great toe surgical site does not appear to be healing, dec sensation to feet possibly 2/2 cold) - Extremities Extremities: Other (see skin exam) - Neuro Neuro: Alert and oriented X 3 Results - Vitals Vitals: Vital Signs - 24 hr 03/29/17 03/29/17 03/29/17 09:23 09:30 09:52 Temperature 35.5 C L Heart Rate 121 H Heart Rate [ 124 H Apical] Respiratory 20 20 Rate Blood Pressure 131/61 H Blood Pressure 133/81 H [Brachial artery] O2 Saturation 93 95 95 Oxygen O2 Source [Without Activity] Room air O2 Source Room air - Labs Labs: Laboratory Tests 03/29/17 03/29/17 03/29/17 10:50 10:50 10:50 WBC 25.6 H RBC 4.84 Hgb 11.5 L Hct 40.9 MCV 84.6 MCH 23.8 L MCHC 28.1 L RDW 17.9 H Plt Count 719 H MPV 8.6 Neut # 21.8 H Lymph # 2.2 [place] # 1.2 H Eos # 0.0 Baso # 0.3 H Absolute Nucleated RBC 0.00 Nucleated RBC % 0.0 Manual Slide Review Indicated RBC Morph Micro Appear 2+ ANISOCYTOSIS VBG pH 7.121 L VBG pCO2 13.8 L VBG pO2 73.7 H VBG HCO3 4.4 L VBG Total CO2 4.8 L VBG O2 Saturation 88.8 H VBG Base Excess -22.7 L Sodium 123 L Potassium 6.0 H* Chloride 71 L* Carbon Dioxide 6 L* Anion Gap 46.0 H BUN 59 H Creatinine 2.1 H Estimated GFR (MDRD) 27 L Glucose 1003 H* Calcium 8.7 Serum HCG, Qual Serum Ketones MODERATE H 03/29/17 10:50 WBC RBC Hgb Hct MCV MCH MCHC RDW Plt Count MPV Neut # Lymph # [place] # Eos # Baso # Absolute Nucleated RBC Nucleated RBC % Manual Slide Review RBC Morph Micro Appear VBG pH VBG pCO2 VBG pO2 VBG HCO3 VBG Total CO2 VBG O2 Saturation VBG Base Excess Sodium Potassium Chloride Carbon Dioxide Anion Gap BUN Creatinine Estimated GFR (MDRD) Glucose Calcium Serum HCG, Qual NEGATIVE Serum Ketones PD MEDICAL DECISION MAKING - ED course ED course: recurrent DKA PICC by anesthesia (see consult) IVF insulin bolus and gtt renal insuff not new but worse than priors elev WBC noted - will need ortho to eval her foot again admit paged hospitalist for admit at 1030 Departure - Departure Disposition: 66 [facility] DC/Xfer Clinical Impression: Renal insufficiency DKA (diabetic ketoacidoses) Qualifiers: Diabetes mellitus type: type 1 Diabetes mellitus complication detail: without coma Qualified Code(s): E10.10 - Type 1 diabetes mellitus with ketoacidosis without coma Hypothermia Qualifiers: Encounter type: initial encounter Qualified Code(s): T68.XXXA - Hypothermia, initial encounter S/P amputation of foot Qualifiers: Laterality: right Qualified Code(s): Z89.431 - Acquired absence of right foot Condition: Fair Discharge Date/Time: 03/29/17 12:56
[2017-03-29 11:05] LABS: BASOPHILS # (AUTO) 0.3 10^3/uL (0.0-0.1); BASOPHILS % (AUTO) 1.3 %; HGB - HEMOGLOBIN 11.5 g/dL (12.0-16.0); LYMPHOCYTES # (AUTO) 2.2 10^3/uL (1.5-3.5); LYMPHOCYTES % (AUTO) 8.7 %; MEAN CORPUSCULAR HEMOGLOBIN 23.8 pg (27.0-31.0); MEAN CORPUSCULAR HGB CONC 28.1 g/dL (32.0-36.0); MEAN CORPUSCULAR VOLUME 84.6 fL (81.0-99.0); MEAN PLATELET VOLUME 8.6 fL (7.9-10.8); MONOCYTES # (AUTO) 1.2 10^3/uL (0.0-1.0); MONOCYTES % (AUTO) 4.8 %; NEUTROPHILS # (AUTO) 21.8 10^3/uL (1.5-6.6); NEUTROPHILS % (AUTO) 85.2 %; PLT - PLATELET COUNT 719 10^3/uL (130-450); RED BLOOD COUNT 4.84 10^6/uL (4.20-5.40); RED CELL DISTRIBUTION WIDTH 17.9 % (12.0-15.0); WHITE BLOOD COUNT 25.6 x10^3/uL (4.8-10.8)
[2017-03-29 11:06] LABS: VBG BASE EXCESS -22.7 mmol/L (-2 - +2); VBG PCO2 13.8 mmHg (41-51); VBG PH 7.121 (7.31-7.41); VBG PO2 73.7 mmHg (25-47); VBG TOTAL CO2 4.8 mmol/L (24-29)
[2017-03-29 11:12] LABS: BUN - BLOOD UREA NITROGEN 59 mg/dL (6-20); CALCIUM 8.7 mg/dL (8.5-10.3); CREATININE 2.1 mg/dL (0.4-1.0); GFR - MDRD 27 (>89); SODIUM 123 mmol/L (135-145)
[2017-03-29 11:13] LABS: CHLORIDE 71 mmol/L (101-111); GLUCOSE 1003 mg/dL (70-100)
[2017-03-29] MEDS ORDERED: INSULIN REGULAR HUMAN 100 UNIT/1 ML 10 ML MDV IVP STA (11:13)
[2017-03-29 11:18] LABS: KETONES, SERUM (ACETEST) MODERATE (NEGATIVE)
[2017-03-29 11:22] LABS: HCG,QUALITATIVE BLOOD NEGATIVE
[2017-03-29 11:28] LABS: CARBON DIOXIDE - CO2 6 mmol/L (21-32)
[2017-03-29 11:29] LABS: RBC MORPHOLOGY (MULTIPLE) 2+ ANISOCYTOSIS (NORMAL)
--- NOTE | 2017-03-29 11:34 | XRAY Report ---
DATE OF SERVICE: 03/29/2017 FRONTAL CHEST: 03/29/2017 CLINICAL INDICATION: PICC placement. FINDINGS: Frontal view of the chest is compared to previous film of 03/16/2017. Left arm PICC terminates at the cavoatrial junction. No gross infiltrate is seen on this oblique image. IMPRESSION: LEFT ARM PICC TERMINATING AT THE CAVOATRIAL JUNCTION. TD: 03/29/2017 11:34
[2017-03-29] MEDS: INSULIN REGULAR HUMAN 100 UNIT in SODIUM CHLORIDE 0.9% 100ML 99 ML IV STA ×2 (11:35→13:44)
[2017-03-29] MEDS ORDERED: HYDROmorphone 1 MG/ML SYRINGE IVP PRN (12:35)
[2017-03-29] MEDS ORDERED: PROCHLORPERAZINE 10 MG/2 ML VIAL IVP PRN (12:35)
[2017-03-29] MEDS ORDERED: INSULIN REGULAR HUMAN 100 UNIT/1 ML 10 ML MDV SUBQ SCH (12:49)
[2017-03-29 13:29] LABS: VBG PCO2 15.7 mmHg (41-51); VBG PH 7.105 (7.31-7.41); VBG PO2 56.6 mmHg (25-47)
[2017-03-29 13:30] LABS: VBG BASE EXCESS -22.7 mmol/L (-2 - +2); VBG TOTAL CO2 5.3 mmol/L (24-29)
[2017-03-29] MEDS: SODIUM CHLORIDE 0.9% 1,000 ML IV SCH ×2 (13:44→20:53)
[2017-03-29 13:45] LABS: MAGNESIUM 2.6 mg/dL (1.7-2.8)
[2017-03-29 14:29] LABS: KETONES, SERUM (ACETEST) MODERATE (NEGATIVE)
[2017-03-29 14:38] LABS: BUN - BLOOD UREA NITROGEN 58 mg/dL (6-20); CHLORIDE 83 mmol/L (101-111); CREATININE 1.9 mg/dL (0.4-1.0); GFR - MDRD 30 (>89); MAGNESIUM 2.4 mg/dL (1.7-2.8); SODIUM 129 mmol/L (135-145)
[2017-03-29 14:39] LABS: CARBON DIOXIDE - CO2 7 mmol/L (21-32)
[2017-03-29 14:40] LABS: GLUCOSE 734 mg/dL (70-100)
[2017-03-29] MEDS: METOPROLOL 5 MG/5 ML VIAL IVP SCH ×2 (14:47→19:43)
[2017-03-29] MEDS: INSULIN REGULAR HUMAN 100 UNIT in SODIUM CHLORIDE 0.9% 100ML 99 ML IV SCH (16:02)
[2017-03-29] MEDS: SODIUM CHLORIDE FLUSH 0.9% 10 ML SYRINGE IVP SCH ×2 (16:06→20:54)
[2017-03-29 17:03] LABS: KETONES, SERUM (ACETEST) LARGE (NEGATIVE)
[2017-03-29 17:04] LABS: BUN - BLOOD UREA NITROGEN 57 mg/dL (6-20); CALCIUM 7.9 mg/dL (8.5-10.3); CHLORIDE 88 mmol/L (101-111); CREATININE 1.6 mg/dL (0.4-1.0); GFR - MDRD 37 (>89); MAGNESIUM 2.4 mg/dL (1.7-2.8); SODIUM 131 mmol/L (135-145)
[2017-03-29 17:05] LABS: CARBON DIOXIDE - CO2 9 mmol/L (21-32)
[2017-03-29 17:06] LABS: GLUCOSE 570 mg/dL (70-100)
[2017-03-29] MEDS ORDERED: METHOCARBAMOL 500 MG TABLET PO PRN (19:16)
[2017-03-29 19:23] LABS: GLUCOSE 478 mg/dL (70-100)
[2017-03-29] MEDS ORDERED: LORazepam 2 MG/ML VIAL ONE (19:27)
[2017-03-29] MEDS ORDERED: HALOPERIDOL 5 MG/ML VIAL ONE (19:28)
[2017-03-29 19:50] LABS: KETONES, SERUM (ACETEST) LARGE (NEGATIVE)
[2017-03-29 19:59] LABS: BILIRUBIN,URINE NEGATIVE (NEGATIVE); GLUCOSE, URINE (UA) >=1000 mg/dL (NEGATIVE); KETONES,URINE (UA) 40 mg/dL (NEGATIVE); LEUKOCYTE ESTERASE, URINE NEGATIVE (NEGATIVE); NITRITE,URINE NEGATIVE (NEGATIVE); OCCULT BLOOD,URINE NEGATIVE (NEGATIVE); PH,URINE 5.5 PH (5.0-7.5); PROTEIN,URINE NEGATIVE (NEGATIVE); UROBILINOGEN,URINE 0.2 (NORMAL) E.U./dL (NORMAL)
[2017-03-29 20:02] LABS: CLARITY,URINE CLEAR (CLEAR)
[2017-03-29] MEDS ORDERED: HALOPERIDOL 5 MG/ML VIAL IVP PRN (20:02)
[2017-03-29] MEDS ORDERED: LORazepam 2 MG/ML VIAL IVP PRN (20:04)
[2017-03-29] MEDS: AMITRIPTYLINE 25 MG TABLET PO SCH (20:53)
[2017-03-29] MEDS: METOPROLOL SUCCINATE 25 MG TABLET PO SCH (20:54)
[2017-03-29] MEDS: OXYBUTYNIN 5MG TABLET PO SCH (20:54)
[2017-03-29] MEDS: cloNIDine 0.1 MG TABLET PO SCH (20:54)
[2017-03-29] MEDS: CILOSTAZOL 100 MG TABLET PO SCH (20:54)
[2017-03-29] MEDS: PANTOPRAZOLE 40 MG VIAL IVP SCH (20:54)
[2017-03-29] MEDS: GABAPENTIN 300 MG CAPSULE PO SCH (21:01)
[2017-03-29 21:41] LABS: GLUCOSE 383 mg/dL (70-100)
[2017-03-29 22:14] LABS: KETONES, SERUM (ACETEST) LARGE (NEGATIVE)
[2017-03-29] MEDS: SODIUM CHLORIDE FLUSH 0.9% 10 ML SYRINGE IVP PRN (23:51)
[2017-03-30] MEDS: SODIUM CHLORIDE FLUSH 0.9% 10 ML SYRINGE IVP PRN ×2 (00:45→08:21)
[2017-03-30] MEDS: METOPROLOL 5 MG/5 ML VIAL IVP SCH ×2 (00:45→06:04)
[2017-03-30] MEDS: SODIUM CHLORIDE 0.9% 1,000 ML IV SCH ×4 (03:53→23:00)
[2017-03-30 05:09] LABS: BASOPHILS % (AUTO) 0.2 %; LYMPHOCYTES # (AUTO) 2.7 10^3/uL (1.5-3.5); LYMPHOCYTES % (AUTO) 17.2 %; MEAN CORPUSCULAR HEMOGLOBIN 23.3 pg (27.0-31.0); MEAN CORPUSCULAR HGB CONC 31.6 g/dL (32.0-36.0); MEAN CORPUSCULAR VOLUME 73.6 fL (81.0-99.0); MEAN PLATELET VOLUME 7.3 fL (7.9-10.8); MONOCYTES % (AUTO) 6.7 %; NEUTROPHILS # (AUTO) 11.8 10^3/uL (1.5-6.6); NEUTROPHILS % (AUTO) 75.9 %; PLT - PLATELET COUNT 496 10^3/uL (130-450); RED BLOOD COUNT 4.31 10^6/uL (4.20-5.40); RED CELL DISTRIBUTION WIDTH 17.4 % (12.0-15.0); WHITE BLOOD COUNT 15.5 x10^3/uL (4.8-10.8)
[2017-03-30 05:32] LABS: HB2 TOTAL 10.9 g/dL; HEMOGLOBIN A1C 1.15 g/dL; HEMOGLOBIN A1C % 11.8 % (4.6-6.2)
[2017-03-30] MEDS: SODIUM CHLORIDE FLUSH 0.9% 10 ML SYRINGE IVP SCH ×3 (06:04→21:11)
[2017-03-30] MEDS: GABAPENTIN 300 MG CAPSULE PO SCH ×3 (06:04→21:11)
[2017-03-30] MEDS: INSULIN REGULAR HUMAN 100 UNIT in SODIUM CHLORIDE 0.9% 100ML 99 ML IV SCH (06:47)
[2017-03-30 06:56] LABS: BUN - BLOOD UREA NITROGEN 50 mg/dL (6-20); CALCIUM 7.6 mg/dL (8.5-10.3); CARBON DIOXIDE - CO2 20 mmol/L (21-32); CHLORIDE 99 mmol/L (101-111); CREATININE 1.2 mg/dL (0.4-1.0); GFR - MDRD 51 (>89); GLUCOSE 254 mg/dL (70-100); SODIUM 137 mmol/L (135-145)
[2017-03-30 07:09] LABS: KETONES, SERUM (ACETEST) MODERATE (NEGATIVE)
[2017-03-30 07:59] LABS: ALBUMIN 3.3 g/dL (3.2-5.5); MAGNESIUM 2.2 mg/dL (1.7-2.8)
[2017-03-30] MEDS: PANTOPRAZOLE 40 MG VIAL IVP SCH (08:20)
[2017-03-30] MEDS: INSULIN GLARGINE 300 UNIT/3 ML PEN SUBQ SCH (09:07)
[2017-03-30] MEDS: INSULIN ASPART 300 UNIT/3 ML PEN SUBQ SCH ×7 (09:15→21:10)
[2017-03-30] MEDS: DULoxetine 20 MG CAPSULE PO SCH (09:16)
[2017-03-30] MEDS: cloNIDine 0.1 MG TABLET PO SCH ×2 (09:17→20:21)
[2017-03-30] MEDS: FERROUS SULFATE 325 MG TABLET PO SCH (09:17)
[2017-03-30] MEDS: CILOSTAZOL 100 MG TABLET PO SCH ×2 (09:17→20:22)
[2017-03-30] MEDS: OXYBUTYNIN 5MG TABLET PO SCH ×2 (09:17→20:21)
[2017-03-30] MEDS: METOPROLOL SUCCINATE 25 MG TABLET PO SCH ×2 (09:18→20:21)
[2017-03-30] MEDS: diltiaZEM CD 120 MG CAPSULE PO SCH (09:18)
[2017-03-30] MEDS: PANTOPRAZOLE 40 MG TABLET PO SCH (10:12)
[2017-03-30 10:40] LABS: VBG PH 7.348 (7.31-7.41)
--- NOTE | 2017-03-30 11:23 | HISTORY & PHYSICAL EXAMINATION ---
DATE OF SERVICE: 03/29/2017 Physician: Jayshree Vides MD DATE OF ADMISSION: 03/29/2017 HISTORY OF PRESENT ILLNESS: This is a 36-year-old white female with frequent admissions to this hospital. She has a history of brittle diabetes mellitus requiring insulin , frequent DKA admissions, methamphetamine abuser, tobacco user, history of coronary disease, peripheral vascular disease, borderline personality disorder, anxiety and depression, hypertension, peripheral neuropathy. The patient was discharged from here approximately a week ago after an admission for DKA and osteomyelitis of a toe which required partial amputation. She did not qualify for nursing home facility rehab and was discharged. She is homeless and it is unclear if she is compliant with her medications. The patient presents after having been found vomiting in the back of a pickup truck exposed to the elements in the rain and brought to the emergency room. Her glucose was noted as being "high" per EMS. The patient was mostly obtunded and complains of being cold and thirsty and not cooperating with answering questions. PAST MEDICAL HISTORY: DM, frequent DKA, PVD, CAD, osteomyelitis with recent partial toe amputation, Borderline personality disorder, anxiety and depressions , Homelessness, non-compliance. MEDICATIONS: That she was supposed to be on at the time of the last discharge were: 1. Elavil 50 mg p.o. at bedtime. 2. Pletal 100 mg p.o. b.i.d. 3. Cymbalta 60 mg daily. 4. Iron sulfate 325 daily. 5. Gabapentin 600 t.i.d. 6. Dilaudid 4 mg p.o. every 4 hours p.r.n. pain. 7. NovoLog insulin. 8. Lantus insulin. 9. Mobic 7.5 mg b.i.d. 10. Robaxin 500 mg p.o. b.i.d. p.r.n. 11. Toprol-XL 25 mg p.o. b.i.d. 12. Ditropan 5 mg p.o. b.i.d. 13. Clonidine 0.1 mg p.o. b.i.d. 14. Klonopin 1 mg p.o. b.i.d. 15. Cardizem-CD 120 mg p.o. daily. ALLERGIES: 1. CODEINE. 2. HYDROCODONE (but she takes Dilaudid) 3. MILK. 4. MACROBID. 5. PAPER TAPE. SOCIAL HISTORY: She is a smoker of cigarettes daily, there is no alcohol abuse history, she has a strong history of methamphetamine abuse. During the last admission a make -shift smoking pipe was found in her hospital room, that she had made from a pop can. This was confiscated and visitors were limited at that point. REVIEW OF SYSTEMS: A comprehensive review of systems was done by reviewing the chart and asking the patient brief questions which only were partially answered. The rest of the review of systems is negative, except for as above. PHYSICAL EXAMINATION: VITAL SIGNS: Temperature 35.5, sinus tachycardia with a rate of 121, blood pressure 133/80, respiratory rate 20. GENERAL: She is somnolent, but arousable and intermittently gagging. HEENT: Shows moist oral mucosa. NECK: No JVD or thyromegaly. LUNGS: Clear. HEART: Sounds tachycardic. No audible murmur. ABDOMEN: Soft. EXTREMITIES: Have a bandage of the right great toe. There is no redness. There are a few excoriated areas that look like scratches on her lower extremities. NEUROLOGIC: As described above. She is moving all extremities. LABORATORY DATA: Sodium 123, potassium 6.0, anion gap 46, BUN 59, creatinine 2.1, glucose 1003, serum hCG negative. White blood count 25.6 with a left shift, hemoglobin 11.5, platelet count 719. Urinalysis showed high glucose and high ketones and leukocyte esterase negative, serum ketones were large. Venous blood gas had a pH of 7.12. No EKG was done. Chest x-ray showed no active pulmonary disease and a left PICC line was seen terminating at the cavoatrial junction. IMPRESSION/DIAGNOSES: 1. Diabetic ketoacidosis. 2. Anxiety. 3. Borderline personality disorder. 4. History of methamphetamine abuse. 5. Homeless, single person. 6. Status post amputation of partial right great toe from recent osteomyelitis. 7. Peripheral vascular disease. 8. History of myocardial infarction. 9. History of chronic kidney disease stage 3. PLAN: Place the patient in the ICU on telemetry. Start IV fluids and IV insulin according to our DKA protocol including frequent glucose checks, ketones checks and follow her BMP and anion gap. With decrease of her bloord glucose the potassium level will drop. When she is more alert and able to swallow, reinstitute her prior p.o. medications. Social work to be involved once again for help with any resources regarding her homeless status and medical followup. Deep venous thrombosis prophylaxis: Sequential compression devices. CODE STATUS: FULL CODE. ATTESTATION: It is expected that the patient will be discharged or transferred to another facility with a 96 hours: Yes. TD: 03/30/2017 11:22 [email or web address]
[2017-03-30] MEDS: CALCIUM CITRATE 250 MG TABLET PO SCH ×3 (13:25→20:21)
[2017-03-30] MEDS: HYDROmorphone 2 MG TABLET PO PRN ×2 (14:47→18:11)
[2017-03-30] MEDS: IBUPROFEN 600 MG TABLET PO PRN (16:16)
--- NOTE | 2017-03-30 17:42 | PROVIDER PROGRESS NOTE ---
Subjective - Prog Note Date Prog Note Date: 03/30/17 Prog Note Time: 17:38 - Subjective Pt reports feeling: Improved Subjective: she is off the drip since early hours of this am. Troponin neg x 3. she has been belligerant. urinating on the floor. throwing stuff at the RN. sleeping most of the day today. she is eating everything. taking her lantus and short acting. Current Medications - Current Medications Current Medications: Active Medications Amitriptyline HCl (Elavil) 50 mg PO QPM [facility] Last Admin: 03/29/17 20:53 Dose: 50 mg Calcium Citrate () 500 mg PO QID [facility] PRN Reason: Protocol Stop: 03/31/17 09:01 Last Admin: 03/30/17 13:25 Dose: 500 mg Cilostazol (Pletal) 100 mg PO BID [facility] Last Admin: 03/30/17 09:17 Dose: 100 mg Clonazepam (Klonopin) 1 mg PO BID PRN PRN Reason: Anxiety Clonidine HCl (Catapres) 0.1 mg PO BID [facility] Last Admin: 03/30/17 09:17 Dose: 0.1 mg Diltiazem HCl (Cardizem Cd) 120 mg PO DAILY [facility] Last Admin: 03/30/17 09:18 Dose: 120 mg Duloxetine HCl (Cymbalta) 60 mg PO DAILY [facility] Last Admin: 03/30/17 09:16 Dose: 60 mg Ferrous Sulfate (Feosol) 325 mg PO DAILY [facility] Last Admin: 03/30/17 09:17 Dose: 325 mg Gabapentin (Neurontin) 600 mg PO TID [facility] Last Admin: 03/30/17 13:26 Dose: 600 mg Haloperidol (Haldol Inj) 5 mg IVP Q6H PRN PRN Reason: Agitation Last Admin: 03/29/17 20:07 Dose: 5 mg Hydromorphone HCl (Dilaudid Inj Syringe) 0.5 mg IVP Q2H PRN PRN Reason: Pain 8 to 10 Last Admin: 03/29/17 14:47 Dose: 0.5 mg Hydromorphone HCl (Dilaudid) 4 mg PO Q4H PRN PRN Reason: PAIN Last Admin: 03/30/17 14:47 Dose: 4 mg Sodium Chloride (Normal Saline 0.9%) 1,000 mls @ 150 mls/hr IV .Q6H40M [facility] Last Admin: 03/30/17 16:24 Dose: 150 mls/hr Insulin Human Regular 100 unit (/ Sodium Chloride) 100 mls @ 6 mls/hr IV .[id number] SYLVIA; 6 UNIT/HR PRN Reason: Protocol Last Admin: 03/30/17 06:47 Dose: Not Given Ibuprofen (Motrin) 600 mg PO Q6HR PRN PRN Reason: Pain 1 to 4 Last Admin: 03/30/17 16:16 Dose: 600 mg Insulin Aspart (Novolog) 2 - 10 unit SUBQ 0800,1200,1700,2100 [facility] PRN Reason: Protocol Last Admin: 03/30/17 12:19 Dose: 8 unit Insulin Aspart (Novolog) 7 unit SUBQ TIDWM [facility] Last Admin: 03/30/17 12:20 Dose: 7 unit Insulin Glargine (Lantus Solostar) 60 unit SUBQ DAILY [facility] Last Admin: 03/30/17 09:07 Dose: 60 unit Lorazepam (Ativan Inj (Vial)) 2 mg IVP Q4H PRN PRN Reason: Anxiety Last Admin: 03/29/17 20:07 Dose: 2 mg Methocarbamol (Robaxin) 500 mg PO BID PRN PRN Reason: Spasms Metoprolol Succinate (Toprol Xl) 25 mg PO BID [facility] Last Admin: 03/30/17 09:18 Dose: 25 mg Oxybutynin Chloride (Ditropan) 5 mg PO BID [facility] Last Admin: 03/30/17 09:17 Dose: 5 mg Pantoprazole Sodium (Protonix) 40 mg PO QDAC [facility] Last Admin: 03/30/17 10:12 Dose: Not Given Prochlorperazine Edisylate (Compazine Inj) 10 mg IVP Q6HR PRN PRN Reason: Nausea / Vomiting Sodium Chloride (Normal Saline Flush 0.9%) 10 ml IVP Q8HR [facility] Last Admin: 03/30/17 14:13 Dose: Not Given Sodium Chloride (Normal Saline Flush 0.9%) 10 ml IVP PRN PRN PRN Reason: NEEDED PER PROVIDER ORDERS Last Admin: 03/30/17 08:21 Dose: 10 ml Objective - Vital Signs/Intake & Output Reviewed Vital Signs: Yes Vital Signs: Vital Signs x48h Temp Pulse Resp BP Pulse Ox 03/30/17 16:00 37.5 C 116 H 20 126/70 95 03/30/17 15:00 117 H 24 126/62 95 03/30/17 14:00 120 H 21 123/62 95 03/30/17 13:17 36.7 C 03/30/17 12:00 118 H 30 H 97/74 03/30/17 11:00 110 H 25 H 103/52 L 98 03/30/17 10:00 116 H 25 H 106/51 L 93 Intake & Output: Intake & Output 03/27/17 03/28/17 03/29/17 03/30/17 23:59 23:59 23:59 23:59 Intake Total 2210.75 5541.833 Output Total 0 2600 Balance 2210.75 2941.833 - Objective General Appearance: positive: No acute distress, Alert (sitting up in chair, eating dinner) Eyes Bilateral: positive: PERRL ENT: positive: Other (partial loss of teeth) Neck: positive: No JVD. negative: Stiff neck Respiratory: positive: Chest non-tender. negative: Wheezes, Rales, Rhonchi Cardiovascular: positive: Regular rate & rhythm, Systolic murmur. negative: Gallop/S4, Friction rub Abdomen: positive: Non-tender, No organomegaly, Nml bowel sounds, No distention Skin: positive: Warm, Dry Extremities: positive: Full ROM, No pedal edema, Other (toes with rubor, and less purple than usual) Neurologic/Psychiatric: positive: CN's nml (2-12), Motor nml, Disoriented to time - Lab Results Fish Bones: 03/30/17 04:40 03/30/17 06:30 Other Labs: Lab Results x24hrs 03/30/17 03/30/17 03/30/17 Range/Units 10:31 10:31 06:30 WBC (4.8-10.8) x10^3/uL RBC (4.20-5.40) 10^6/uL Hgb (12.0-16.0) g/dL Hct (37.0-47.0) % MCV (81.0-99.0) fL MCH (27.0-31.0) pg MCHC (32.0-36.0) g/dL RDW (12.0-15.0) % Plt Count (130-450) 10^3/uL MPV (7.9-10.8) fL Neut # (1.5-6.6) 10^3/uL Lymph # (1.5-3.5) 10^3/uL [place] # (0.0-1.0) 10^3/uL Eos # (0.0-0.7) 10^3/uL Baso # (0.0-0.1) 10^3/uL Absolute Nucleated RBC x10^3/uL Nucleated RBC % /100WBC VBG pH 7.348 (7.31-7.41) Ionized Calcium 1.08 L (1.15-1.33) mmol/L Sodium (135-145) mmol/L Potassium (3.5-5.0) mmol/L Chloride (101-111) mmol/L Carbon Dioxide (21-32) mmol/L Anion Gap (6-13) BUN (6-20) mg/dL Creatinine (0.4-1.0) mg/dL Estimated GFR (MDRD) (>89) Glucose (70-100) mg/dL Glycated Hemoglobin (4.6-6.2) % Estim Average Glucose (70-100) Calcium (8.5-10.3) mg/dL Phosphorus 3.0 (2.5-4.6) mg/dL Magnesium 2.2 (1.7-2.8) mg/dL Troponin I (<0.49) ng/mL Albumin 3.3 (3.2-5.5) g/dL Urine Color Urine Clarity (CLEAR) Urine pH (5.0-7.5) PH Ur Specific [place] (1.002-1.030) Urine Protein (NEGATIVE) mg/dL Urine Glucose (UA) (NEGATIVE) mg/dL Urine Ketones (NEGATIVE) mg/dL Urine Occult Blood (NEGATIVE) Urine Nitrite (NEGATIVE) Urine Bilirubin (NEGATIVE) Urine Urobilinogen (NORMAL) E.U./dL Ur Leukocyte Esterase (NEGATIVE) Ur Microscopic Review Urine Culture Comments Serum Ketones MODERATE H (NEGATIVE) 03/30/17 03/30/17 03/30/17 Range/Units 06:30 06:30 04:40 WBC (4.8-10.8) x10^3/uL RBC (4.20-5.40) 10^6/uL Hgb (12.0-16.0) g/dL Hct (37.0-47.0) % MCV (81.0-99.0) fL MCH (27.0-31.0) pg MCHC (32.0-36.0) g/dL RDW (12.0-15.0) % Plt Count (130-450) 10^3/uL MPV (7.9-10.8) fL Neut # (1.5-6.6) 10^3/uL Lymph # (1.5-3.5) 10^3/uL [place] # (0.0-1.0) 10^3/uL Eos # (0.0-0.7) 10^3/uL Baso # (0.0-0.1) 10^3/uL Absolute Nucleated RBC x10^3/uL Nucleated RBC % /100WBC VBG pH (7.31-7.41) Ionized Calcium (1.15-1.33) mmol/L Sodium 137 (135-145) mmol/L Potassium 4.1 (3.5-5.0) mmol/L Chloride 99 L (101-111) mmol/L Carbon Dioxide 20 L (21-32) mmol/L Anion Gap 18.0 H (6-13) BUN 50 H (6-20) mg/dL Creatinine 1.2 H (0.4-1.0) mg/dL Estimated GFR (MDRD) 51 L (>89) Glucose 254 H (70-100) mg/dL Glycated Hemoglobin 11.8 H (4.6-6.2) % Estim Average Glucose 292 H (70-100) Calcium 7.6 L (8.5-10.3) mg/dL Phosphorus (2.5-4.6) mg/dL Magnesium (1.7-2.8) mg/dL Troponin I < 0.04 (<0.49) ng/mL Albumin (3.2-5.5) g/dL Urine Color Urine Clarity (CLEAR) Urine pH (5.0-7.5) PH Ur Specific [place] (1.002-1.030) Urine Protein (NEGATIVE) mg/dL Urine Glucose (UA) (NEGATIVE) mg/dL Urine Ketones (NEGATIVE) mg/dL Urine Occult Blood (NEGATIVE) Urine Nitrite (NEGATIVE) Urine Bilirubin (NEGATIVE) Urine Urobilinogen (NORMAL) E.U./dL Ur Leukocyte Esterase (NEGATIVE) Ur Microscopic Review Urine Culture Comments Serum Ketones MODERATE H (NEGATIVE) 03/30/17 03/30/17 03/30/17 Range/Units 04:40 04:40 02:55 WBC 15.5 H (4.8-10.8) x10^3/uL RBC 4.31 (4.20-5.40) 10^6/uL Hgb 10.0 L (12.0-16.0) g/dL Hct 31.7 L (37.0-47.0) % MCV 73.6 L (81.0-99.0) fL MCH 23.3 L (27.0-31.0) pg MCHC 31.6 L (32.0-36.0) g/dL RDW 17.4 H (12.0-15.0) % Plt Count 496 H (130-450) 10^3/uL MPV 7.3 L (7.9-10.8) fL Neut # 11.8 H (1.5-6.6) 10^3/uL Lymph # 2.7 (1.5-3.5) 10^3/uL [place] # 1.0 (0.0-1.0) 10^3/uL Eos # 0.0 (0.0-0.7) 10^3/uL Baso # 0.0 (0.0-0.1) 10^3/uL Absolute Nucleated RBC 0.00 x10^3/uL Nucleated RBC % 0.0 /100WBC VBG pH (7.31-7.41) Ionized Calcium (1.15-1.33) mmol/L Sodium (135-145) mmol/L Potassium (3.5-5.0) mmol/L Chloride (101-111) mmol/L Carbon Dioxide (21-32) mmol/L Anion Gap (6-13) BUN (6-20) mg/dL Creatinine (0.4-1.0) mg/dL Estimated GFR (MDRD) (>89) Glucose (70-100) mg/dL Glycated Hemoglobin (4.6-6.2) % Estim Average Glucose (70-100) Calcium (8.5-10.3) mg/dL Phosphorus (2.5-4.6) mg/dL Magnesium (1.7-2.8) mg/dL Troponin I (<0.49) ng/mL Albumin (3.2-5.5) g/dL Urine Color Urine Clarity (CLEAR) Urine pH (5.0-7.5) PH Ur Specific [place] (1.002-1.030) Urine Protein (NEGATIVE) mg/dL Urine Glucose (UA) (NEGATIVE) mg/dL Urine Ketones (NEGATIVE) mg/dL Urine Occult Blood (NEGATIVE) Urine Nitrite (NEGATIVE) Urine Bilirubin (NEGATIVE) Urine Urobilinogen (NORMAL) E.U./dL Ur Leukocyte Esterase (NEGATIVE) Ur Microscopic Review Urine Culture Comments Serum Ketones SMALL H SMALL H (NEGATIVE) 03/30/17 03/30/17 03/29/17 Range/Units 00:49 00:49 23:50 WBC (4.8-10.8) x10^3/uL RBC (4.20-5.40) 10^6/uL Hgb (12.0-16.0) g/dL Hct (37.0-47.0) % MCV (81.0-99.0) fL MCH (27.0-31.0) pg MCHC (32.0-36.0) g/dL RDW (12.0-15.0) % Plt Count (130-450) 10^3/uL MPV (7.9-10.8) fL Neut # (1.5-6.6) 10^3/uL Lymph # (1.5-3.5) 10^3/uL [place] # (0.0-1.0) 10^3/uL Eos # (0.0-0.7) 10^3/uL Baso # (0.0-0.1) 10^3/uL Absolute Nucleated RBC x10^3/uL Nucleated RBC % /100WBC VBG pH (7.31-7.41) Ionized Calcium (1.15-1.33) mmol/L Sodium (135-145) mmol/L Potassium (3.5-5.0) mmol/L Chloride (101-111) mmol/L Carbon Dioxide (21-32) mmol/L Anion Gap (6-13) BUN (6-20) mg/dL Creatinine (0.4-1.0) mg/dL Estimated GFR (MDRD) (>89) Glucose (70-100) mg/dL Glycated Hemoglobin (4.6-6.2) % Estim Average Glucose (70-100) Calcium (8.5-10.3) mg/dL Phosphorus (2.5-4.6) mg/dL Magnesium (1.7-2.8) mg/dL Troponin I < 0.04 (<0.49) ng/mL Albumin (3.2-5.5) g/dL Urine Color Urine Clarity (CLEAR) Urine pH (5.0-7.5) PH Ur Specific [place] (1.002-1.030) Urine Protein (NEGATIVE) mg/dL Urine Glucose (UA) (NEGATIVE) mg/dL Urine Ketones (NEGATIVE) mg/dL Urine Occult Blood (NEGATIVE) Urine Nitrite (NEGATIVE) Urine Bilirubin (NEGATIVE) Urine Urobilinogen (NORMAL) E.U./dL Ur Leukocyte Esterase (NEGATIVE) Ur Microscopic Review Urine Culture Comments Serum Ketones MODERATE H MODERATE H (NEGATIVE) 03/29/17 03/29/17 03/29/17 Range/Units 21:28 20:15 19:00 WBC (4.8-10.8) x10^3/uL RBC (4.20-5.40) 10^6/uL Hgb (12.0-16.0) g/dL Hct (37.0-47.0) % MCV (81.0-99.0) fL MCH (27.0-31.0) pg MCHC (32.0-36.0) g/dL RDW (12.0-15.0) % Plt Count (130-450) 10^3/uL MPV (7.9-10.8) fL Neut # (1.5-6.6) 10^3/uL Lymph # (1.5-3.5) 10^3/uL [place] # (0.0-1.0) 10^3/uL Eos # (0.0-0.7) 10^3/uL Baso # (0.0-0.1) 10^3/uL Absolute Nucleated RBC x10^3/uL Nucleated RBC % /100WBC VBG pH (7.31-7.41) Ionized Calcium (1.15-1.33) mmol/L Sodium (135-145) mmol/L Potassium (3.5-5.0) mmol/L Chloride (101-111) mmol/L Carbon Dioxide (21-32) mmol/L Anion Gap (6-13) BUN (6-20) mg/dL Creatinine (0.4-1.0) mg/dL Estimated GFR (MDRD) (>89) Glucose 383 H 429 H (70-100) mg/dL Glycated Hemoglobin (4.6-6.2) % Estim Average Glucose (70-100) Calcium (8.5-10.3) mg/dL Phosphorus (2.5-4.6) mg/dL Magnesium (1.7-2.8) mg/dL Troponin I < 0.04 (<0.49) ng/mL Albumin (3.2-5.5) g/dL Urine Color Urine Clarity (CLEAR) Urine pH (5.0-7.5) PH Ur Specific [place] (1.002-1.030) Urine Protein (NEGATIVE) mg/dL Urine Glucose (UA) (NEGATIVE) mg/dL Urine Ketones (NEGATIVE) mg/dL Urine Occult Blood (NEGATIVE) Urine Nitrite (NEGATIVE) Urine Bilirubin (NEGATIVE) Urine Urobilinogen (NORMAL) E.U./dL Ur Leukocyte Esterase (NEGATIVE) Ur Microscopic Review Urine Culture Comments Serum Ketones LARGE H (NEGATIVE) 03/29/17 03/29/17 03/29/17 Range/Units 19:00 18:20 17:32 WBC (4.8-10.8) x10^3/uL RBC (4.20-5.40) 10^6/uL Hgb (12.0-16.0) g/dL Hct (37.0-47.0) % MCV (81.0-99.0) fL MCH (27.0-31.0) pg MCHC (32.0-36.0) g/dL RDW (12.0-15.0) % Plt Count (130-450) 10^3/uL MPV (7.9-10.8) fL Neut # (1.5-6.6) 10^3/uL Lymph # (1.5-3.5) 10^3/uL [place] # (0.0-1.0) 10^3/uL Eos # (0.0-0.7) 10^3/uL Baso # (0.0-0.1) 10^3/uL Absolute Nucleated RBC x10^3/uL Nucleated RBC % /100WBC VBG pH (7.31-7.41) Ionized Calcium (1.15-1.33) mmol/L Sodium (135-145) mmol/L Potassium (3.5-5.0) mmol/L Chloride (101-111) mmol/L Carbon Dioxide (21-32) mmol/L Anion Gap (6-13) BUN (6-20) mg/dL Creatinine (0.4-1.0) mg/dL Estimated GFR (MDRD) (>89) Glucose 478 H (70-100) mg/dL Glycated Hemoglobin (4.6-6.2) % Estim Average Glucose (70-100) Calcium (8.5-10.3) mg/dL Phosphorus 6.0 H (2.5-4.6) mg/dL Magnesium (1.7-2.8) mg/dL Troponin I (<0.49) ng/mL Albumin (3.2-5.5) g/dL Urine Color YELLOW Urine Clarity CLEAR (CLEAR) Urine pH 5.5 (5.0-7.5) PH Ur Specific [place] 1.025 (1.002-1.030) Urine Protein NEGATIVE (NEGATIVE) mg/dL Urine Glucose (UA) >=1000 H (NEGATIVE) mg/dL Urine Ketones 40 H (NEGATIVE) mg/dL Urine Occult Blood NEGATIVE (NEGATIVE) Urine Nitrite NEGATIVE (NEGATIVE) Urine Bilirubin NEGATIVE (NEGATIVE) Urine Urobilinogen 0.2 (NORMAL) (NORMAL) E.U./dL Ur Leukocyte Esterase NEGATIVE (NEGATIVE) Ur Microscopic Review NOT INDICATED Urine Culture Comments NOT INDICATED Serum Ketones LARGE H (NEGATIVE) 03/29/17 Range/Units 17:32 WBC (4.8-10.8) x10^3/uL RBC (4.20-5.40) 10^6/uL Hgb (12.0-16.0) g/dL Hct (37.0-47.0) % MCV (81.0-99.0) fL MCH (27.0-31.0) pg MCHC (32.0-36.0) g/dL RDW (12.0-15.0) % Plt Count (130-450) 10^3/uL MPV (7.9-10.8) fL Neut # (1.5-6.6) 10^3/uL Lymph # (1.5-3.5) 10^3/uL [place] # (0.0-1.0) 10^3/uL Eos # (0.0-0.7) 10^3/uL Baso # (0.0-0.1) 10^3/uL Absolute Nucleated RBC x10^3/uL Nucleated RBC % /100WBC VBG pH (7.31-7.41) Ionized Calcium (1.15-1.33) mmol/L Sodium (135-145) mmol/L Potassium (3.5-5.0) mmol/L Chloride (101-111) mmol/L Carbon Dioxide (21-32) mmol/L Anion Gap (6-13) BUN (6-20) mg/dL Creatinine (0.4-1.0) mg/dL Estimated GFR (MDRD) (>89) Glucose 534 H* (70-100) mg/dL Glycated Hemoglobin (4.6-6.2) % Estim Average Glucose (70-100) Calcium (8.5-10.3) mg/dL Phosphorus (2.5-4.6) mg/dL Magnesium (1.7-2.8) mg/dL Troponin I (<0.49) ng/mL Albumin (3.2-5.5) g/dL Urine Color Urine Clarity (CLEAR) Urine pH (5.0-7.5) PH Ur Specific [place] (1.002-1.030) Urine Protein (NEGATIVE) mg/dL Urine Glucose (UA) (NEGATIVE) mg/dL Urine Ketones (NEGATIVE) mg/dL Urine Occult Blood (NEGATIVE) Urine Nitrite (NEGATIVE) Urine Bilirubin (NEGATIVE) Urine Urobilinogen (NORMAL) E.U./dL Ur Leukocyte Esterase (NEGATIVE) Ur Microscopic Review Urine Culture Comments Serum Ketones (NEGATIVE) Assessment/Plan - Problem List (1) DKA (diabetic ketoacidoses) Impression: one of many admits. she is homeless. we have worked w her in the past and she will remain homeless. No SNFwill take her bc of behavior and substance abuse. she is off the drip. on lantus and now short acting. will wait 24-48 hours to seee if she stays stable then dc. Qualifiers: Diabetes mellitus type: type 1 Diabetes mellitus complication detail: without coma Qualified Code(s): E10.10 - Type 1 diabetes mellitus with ketoacidosis without coma (2) HANSA (acute kidney injury) Impression: she was 60 BUN and creat 2.1 on admit. getting better with IVF. continue IVF (3) Bipolar 1 disorder Impression: resumed her meds for that now that she is po.
[2017-03-30] MEDS: clonazePAM 0.5 MG TABLET PO PRN (19:42)
[2017-03-30] MEDS: AMITRIPTYLINE 25 MG TABLET PO SCH (20:22)
[2017-03-30] MEDS ORDERED: PHENOL THROAT SPRAY 177 ML MM PRN (20:25)
[2017-03-30] MEDS ORDERED: BENZOCAINE/MENTHOL LOZENGE MM PRN (20:25)
[2017-03-31] MEDS: HYDROmorphone 2 MG TABLET PO PRN ×3 (01:08→12:53)
[2017-03-31] MEDS: IBUPROFEN 600 MG TABLET PO PRN ×2 (04:39→09:39)
[2017-03-31] MEDS: SODIUM CHLORIDE 0.9% 1,000 ML IV SCH ×2 (05:32→12:05)
[2017-03-31] MEDS: GABAPENTIN 300 MG CAPSULE PO SCH ×2 (05:36→14:21)
[2017-03-31] MEDS: PANTOPRAZOLE 40 MG TABLET PO SCH (05:36)
[2017-03-31] MEDS: SODIUM CHLORIDE FLUSH 0.9% 10 ML SYRINGE IVP SCH ×2 (05:37→14:21)
[2017-03-31] MEDS: INSULIN ASPART 300 UNIT/3 ML PEN SUBQ SCH ×4 (07:47→12:28)
[2017-03-31] MEDS: INSULIN GLARGINE 300 UNIT/3 ML PEN SUBQ SCH (07:48)
[2017-03-31] MEDS: OXYBUTYNIN 5MG TABLET PO SCH (09:41)
[2017-03-31] MEDS: METOPROLOL SUCCINATE 25 MG TABLET PO SCH (09:42)
[2017-03-31] MEDS: diltiaZEM CD 120 MG CAPSULE PO SCH (09:43)
[2017-03-31] MEDS: clonazePAM 0.5 MG TABLET PO PRN ×2 (09:44→09:49)
[2017-03-31] MEDS: CILOSTAZOL 100 MG TABLET PO SCH (09:45)
[2017-03-31] MEDS: DULoxetine 20 MG CAPSULE PO SCH (09:47)
[2017-03-31] MEDS: FERROUS SULFATE 325 MG TABLET PO SCH (09:48)
[2017-03-31] MEDS: CALCIUM CITRATE 250 MG TABLET PO SCH (09:54)
--- NOTE | 2017-03-31 10:35 | Discharge Plan ---
Discharge Plan Disposition: 01 Home, Self Care Condition: Fair Diet: Diabetic Activity Restrictions: Activity as Tolerated Shower Restrictions: No Driving Restrictions: Yes (no driving) No Smoking: If you smoke, Please STOP! Call for help.
[2017-03-31] MEDS: cloNIDine 0.1 MG TABLET PO SCH (12:06)
[2017-03-31 15:05] VITALS: BP 99/74
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
== END 2017-03-31 15:39 | disposition home or self-care (01) | DRG 638 ==
LOC: EDUNIT# → ED 09:23 → ICU 12:35
PROVIDERS: ADMIT Internal Medicine; ATTEND Specialist
PROC: 02HV33Z Insertion of Infusion Device into Superior Vena Cava, Percutaneous Approach (ICD-10-PCS; principal; 2017-03-29)
DX: E10.10 Type 1 diabetes mellitus with ketoacidosis without coma (principal); N17.9 Acute kidney failure, unspecified; E10.51 Type 1 diabetes mellitus with diabetic peripheral angiopathy without gangrene; E10.42 Type 1 diabetes mellitus with diabetic polyneuropathy; E10.22 Type 1 diabetes mellitus with diabetic chronic kidney disease; I12.9 Hypertensive chronic kidney disease with stage 1 through stage 4 chronic kidney disease, or unspecified chronic kidney disease; N18.2 Chronic kidney disease, stage 2 (mild); T68.XXXA Hypothermia, initial encounter; X31.XXXA Exposure to excessive natural cold, initial encounter; F31.9 Bipolar disorder, unspecified; F15.10 Other stimulant abuse, uncomplicated; F41.0 Panic disorder [episodic paroxysmal anxiety]; F60.3 Borderline personality disorder; F17.210 Nicotine dependence, cigarettes, uncomplicated; E78.00 Pure hypercholesterolemia, unspecified; I25.10 Atherosclerotic heart disease of native coronary artery without angina pectoris; I25.2 Old myocardial infarction; Z91.14 Patient's other noncompliance with medication regimen; Z78.1 Physical restraint status; Z89.411 Acquired absence of right great toe; Z79.4 Long term (current) use of insulin; Z59.0 Homelessness
CPT/HCPCS: 36415; 36556; 71045; 80048; 81001; 81003; 82009; 82040; 82330; 82803; 82947; 83036; 83735; 84100; 84484; 84703; 85025; 87086; 87150; 96365; 99283; 99284

== ENCOUNTER 2017-04-21 00:08 | Outpatient (CLI) | payer MEDICAID | END 2017-04-21 00:09 | disposition EMS.NT | LOC: EMS 00:08 | PROVIDERS: ATTEND Surgery | DX: Z03.89 Encounter for observation for other suspected diseases and conditions ruled out (principal) ==

== ENCOUNTER 2017-04-30 09:55 | Outpatient (CLI) | payer MEDICAID | END 2017-04-30 09:56 | disposition critical access hospital (66) | LOC: EMS 09:55 | PROVIDERS: ATTEND Surgery | DX: R53.83 Other fatigue (principal); R52 Pain, unspecified; R11.2 Nausea with vomiting, unspecified; R73.09 Other abnormal glucose | CPT/HCPCS: A0425; A0427 ==

== ENCOUNTER 2017-04-30 10:34 | Inpatient (IN) | payer MEDICAID ==
[2017-04-30] MEDS ORDERED: SODIUM CHLORIDE 0.9% 1,000 ML IV ONE ×2 (10:40→15:21)
--- NOTE | 2017-04-30 11:03 | ED Physician Documentation ---
History of Present Illness - Stated complaint Stated Complaint: HYPERGLYCEMIA - Chief complaint Chief Complaint: General - Additonal information Additional information: hx from pt and EMS CC " I am in DKA and want ice chips" 36 f well known to [facility] non compliant IDDM homeless meth user with freq DKA BIBA today with high blood sugar she has been sleeping outside and thinks she has frostbite again to her feet + NV but not retching as much as she usually is Review of Systems Constitutional: denies: Fever Throat: denies: Sore throat Cardiac: denies: Chest pain / pressure Respiratory: denies: Cough GI: reports: Nausea, Vomiting Musculoskeletal: reports: Other (flores bite to feet) Endocrine: denies: Easy bruising / bleeding Immunocompromised: denies: Immunocompromised PD PAST MEDICAL HISTORY - Past Medical History Cardiovascular: Hypertension, High cholesterol, Peripheral Vascular Disease, [facility] Respiratory: None Neuro: Peripheral neuropathy Endocrine/Autoimmune: Type 1 diabetes GI: Pancreatitis [employer] TECHNICIAN: None : None HEENT: None Psych: Depression, Anxiety, Panic attacks Musculoskeletal: Fibromyalgia Derm: None - Past Surgical History Past Surgical History: Yes General: Cholecystectomy HEENT: Tonsil/Adenoidectomy - Present Medications Home Medications: Ambulatory Orders Medication Instructions Recorded Confirmed Amitriptyline [Elavil] 50 mg PO QPM 30 Days #30 tablet 02/03/17 04/30/17 Cilostazol [Pletal] 100 mg PO BID #30 tablet 03/21/17 04/30/17 DULoxetine [Cymbalta] 60 mg PO DAILY #90 capsule 03/21/17 04/30/17 Ferrous Sulfate 325 mg PO DAILY #30 tablet 03/21/17 04/30/17 Gabapentin 600 mg PO TID #90 capsule 03/21/17 04/30/17 HYDROmorphone [Dilaudid] 4 mg PO Q4H PRN #28 tablet 03/21/17 04/30/17 Insulin Aspart [NovoLOG] 7 unit SUBQ TIDWM #2 pen 03/21/17 04/30/17 Insulin Glargine [Lantus Solostar] 60 unit SUBQ DAILY #10 pen 03/21/17 04/30/17 Meloxicam [Mobic] 7.5 mg PO BID #60 tablet 03/21/17 04/30/17 Methocarbamol [Robaxin] 500 mg PO BID PRN #30 tablet 03/21/17 04/30/17 Metoprolol Succinate [Toprol Xl] 25 mg PO BID #60 tablet 03/21/17 04/30/17 Oxybutynin [Ditropan] 5 mg PO BID #60 tablet 03/21/17 04/30/17 cloNIDine [Catapres] 0.1 mg PO BID #60 tablet 03/21/17 04/30/17 clonazePAM [KlonoPIN] 1 mg PO BID PRN #30 tablet 03/21/17 04/30/17 diltiaZEM CD [Cardizem Cd] 120 mg PO DAILY #30 capsule 03/21/17 04/30/17 - Allergies Allergies/Adverse Reactions: Allergies Allergy/AdvReac Type Severity Reaction Status Date / Time codeine Allergy Hives Verified 03/14/17 13:38 hydrocodone Allergy Hives Verified 03/14/17 13:38 milk AdvReac Cramps Verified 03/14/17 13:38 nitrofurantoin AdvReac Headache Verified 03/14/17 13:38 [From Macrobid] PAPER TAPE AdvReac Unknown Uncoded 03/14/17 13:38 - Social History Does the pt smoke?: Yes Smoking Status: Current every day smoker Does the pt drink ETOH?: No Does the pt have substance abuse?: Yes Substance Use and Type: Meth - Immunizations Immunizations are current?: Yes - POLST Patient has POLST: No POLST Status: Full Code PD ED PE NORMAL - Vitals Vital signs reviewed: Yes - General General: Alert and oriented X 3 - HEENT HEENT: No: Moist mucous membranes (dry) - Neck Neck: No JVD - Cardiac Cardiac: RRR (tachy) - Respiratory Respiratory: No respiratory distress, Clear bilaterally - Abdomen Abdomen: Soft, Other (mild diffuse TTP) - Derm Derm: Normal color - Extremities Extremities: Other (hands swollen with scratches, feet cold pale and waxy, R 1st toe IP amuptation, second toes with open ulcers, NT but dec sensation) - Neuro Neuro: Alert and oriented X 3 Eye Opening: Spontaneous Motor: Obeys Commands Verbal: Oriented GCS Score: 15 - Psych Psych: Other (calmer than usual for her) Results - Vitals Vitals: Vital Signs - 24 hr 04/30/17 04/30/17 10:36 11:54 Temperature 36.4 C L Heart Rate 117 H 120 H Respiratory 22 20 Rate Blood Pressure 102/73 101/50 L O2 Saturation 100 100 Oxygen O2 Source [Without Activity] Room air O2 Source Room air - Labs Labs: Laboratory Tests 04/30/17 04/30/17 04/30/17 11:14 11:14 11:14 WBC 14.9 H RBC 5.63 H Hgb 13.7 Hct 46.1 MCV 82.0 MCH 24.4 L MCHC 29.8 L RDW 17.1 H Plt Count 434 MPV 8.7 Neut # 11.7 H Lymph # 2.4 Bourbon # 0.7 Eos # 0.0 Baso # 0.1 Absolute Nucleated RBC 0.00 Nucleated RBC % 0.0 Sodium 124 L Potassium 5.7 H Chloride 88 L Carbon Dioxide 7 L* Anion Gap 29.0 H BUN 46 H Creatinine 1.1 H Estimated GFR (MDRD) 57 L Glucose 606 H* Glycated Hemoglobin 12.1 H Estim Average Glucose 301 H Calcium 9.2 Magnesium Total Bilirubin 1.5 H AST 23 ALT 48 Alkaline Phosphatase 181 H Total Protein 8.1 Albumin 4.4 Globulin 3.7 Albumin/Globulin Ratio 1.2 Lipase 12 L Serum HCG, Qual Cancelled Urine Color Urine Clarity Urine pH Ur Specific Slinger Urine Protein Urine Glucose (UA) Urine Ketones Urine Occult Blood Urine Nitrite Urine Bilirubin Urine Urobilinogen Ur Leukocyte Esterase Urine RBC Urine WBC Ur Squamous Epith Cells Urine Bacteria Ur Microscopic Review Urine Culture Comments Urine HCG, Qual Urine Opiates Screen Ur Oxycodone Screen Urine Methadone Screen Ur Propoxyphene Screen Ur Barbiturates Screen Ur Tricyclics Screen Ur Phencyclidine Scrn Ur Amphetamine Screen U Methamphetamines Scrn U Benzodiazepines Scrn Urine Cocaine Screen U Cannabinoids Screen Serum Ketones LARGE H 04/30/17 04/30/17 04/30/17 11:14 11:20 11:20 WBC RBC Hgb Hct MCV MCH MCHC RDW Plt Count MPV Neut # Lymph # Bourbon # Eos # Baso # Absolute Nucleated RBC Nucleated RBC % Sodium Potassium Chloride Carbon Dioxide Anion Gap BUN Creatinine Estimated GFR (MDRD) Glucose Glycated Hemoglobin Estim Average Glucose Calcium Magnesium 2.3 Total Bilirubin AST ALT Alkaline Phosphatase Total Protein Albumin Globulin Albumin/Globulin Ratio Lipase Serum HCG, Qual Urine Color YELLOW Urine Clarity SL. CLOUDY Urine pH 5.5 Ur Specific Slinger 1.025 1.025 Urine Protein TRACE Urine Glucose (UA) >=1000 H Urine Ketones >=80 H Urine Occult Blood NEGATIVE Urine Nitrite NEGATIVE Urine Bilirubin NEGATIVE Urine Urobilinogen 0.2 (NORMAL) Ur Leukocyte Esterase NEGATIVE Urine RBC 0-5 Urine WBC 0-3 Ur Squamous Epith Cells MANY Squamous H Urine Bacteria Few Ur Microscopic Review INDICATED Urine Culture Comments NOT INDICATED Urine HCG, Qual NEGATIVE Urine Opiates Screen NEGATIVE Ur Oxycodone Screen NEGATIVE Urine Methadone Screen NEGATIVE Ur Propoxyphene Screen NEGATIVE Ur Barbiturates Screen NEGATIVE Ur Tricyclics Screen NEGATIVE Ur Phencyclidine Scrn NEGATIVE Ur Amphetamine Screen POSITIVE H U Methamphetamines Scrn POSITIVE H U Benzodiazepines Scrn NEGATIVE Urine Cocaine Screen NEGATIVE U Cannabinoids Screen NEGATIVE Serum Ketones PD MEDICAL DECISION MAKING - ED course ED course: pt with extremely difficult access tried sincere EJs - visible and palpable but no flash - perhaps clotted paged anesthesia for PICC / line assist upon arrival as she is well know to be very very difficult to get access anesthesia to ER but also could not get access - will continue efforts in the ICU paged hospitalist for admit at 1205 gave subcut insulin and PO fluids pending access Departure - Departure Disposition: 66 [facility] DC/Xfer Clinical Impression: Hyperkalemia DKA (diabetic ketoacidoses) Qualifiers: Diabetes mellitus type: type 1 Diabetes mellitus complication detail: without coma Qualified Code(s): E10.10 - Type 1 diabetes mellitus with ketoacidosis without coma Toe ulcer due to DM Qualifiers: Diabetes mellitus type: type 1 Laterality: unspecified laterality Non-pressure ulcer stage: unspecified non-pressure ulcer stage Qualified Code(s): E10.621 - Type 1 diabetes mellitus with foot ulcer DKA, type 1 Qualifiers: Diabetes mellitus complication detail: without coma Qualified Code(s): E10.10 - Type 1 diabetes mellitus with ketoacidosis without coma Condition: Serious Discharge Date/Time: 04/30/17 13:21
[2017-04-30 11:23] LABS: BASOPHILS # (AUTO) 0.1 10^3/uL (0.0-0.1); BASOPHILS % (AUTO) 0.7 %; EOSINOPHILS % (AUTO) 0.1 %
[2017-04-30 11:26] LABS: HGB - HEMOGLOBIN 13.7 g/dL (12.0-16.0); LYMPHOCYTES # (AUTO) 2.4 10^3/uL (1.5-3.5); LYMPHOCYTES % (AUTO) 16.1 %; MEAN CORPUSCULAR HEMOGLOBIN 24.4 pg (27.0-31.0); MEAN CORPUSCULAR HGB CONC 29.8 g/dL (32.0-36.0); MEAN PLATELET VOLUME 8.7 fL (7.9-10.8); MONOCYTES # (AUTO) 0.7 10^3/uL (0.0-1.0); MONOCYTES % (AUTO) 4.4 %; NEUTROPHILS # (AUTO) 11.7 10^3/uL (1.5-6.6); NEUTROPHILS % (AUTO) 78.7 %; PLT - PLATELET COUNT 434 10^3/uL (130-450); RED BLOOD COUNT 5.63 10^6/uL (4.20-5.40); RED CELL DISTRIBUTION WIDTH 17.1 % (12.0-15.0); WHITE BLOOD COUNT 14.9 x10^3/uL (4.8-10.8)
[2017-04-30 11:28] LABS: MUDS CUTOFF CONCENTRATIONS CUTOFF CONC BELOW:
[2017-04-30 11:32] LABS: GLUCOSE, URINE (UA) >=1000 mg/dL (NEGATIVE); KETONES,URINE (UA) >=80 mg/dL (NEGATIVE); LEUKOCYTE ESTERASE, URINE NEGATIVE (NEGATIVE); NITRITE,URINE NEGATIVE (NEGATIVE); OCCULT BLOOD,URINE NEGATIVE (NEGATIVE); PH,URINE 5.5 PH (5.0-7.5); PROTEIN,URINE TRACE mg/dL (NEGATIVE); UROBILINOGEN,URINE 0.2 (NORMAL) E.U./dL (NORMAL)
[2017-04-30 11:36] LABS: BILIRUBIN,URINE NEGATIVE (NEGATIVE); CLARITY,URINE SL. CLOUDY (CLEAR); ICTOTEST,URINE NEGATIVE
[2017-04-30 11:37] LABS: ALBUMIN 4.4 g/dL (3.2-5.5); ALBUMIN/GLOBULIN RATIO 1.2 (1.0-2.2); ALKALINE PHOSPHATASE 181 IU/L (42-121); ALT ALANINE AMINOTRANSFERASE 48 IU/L (10-60); AST ASPARTATE AMINOTRANSFERASE 23 IU/L (10-42); BILIRUBIN,TOTAL 1.5 mg/dL (0.2-1.0); BUN - BLOOD UREA NITROGEN 46 mg/dL (6-20); CALCIUM 9.2 mg/dL (8.5-10.3); CHLORIDE 88 mmol/L (101-111); CREATININE 1.1 mg/dL (0.4-1.0); GFR - MDRD 57 (>89); LIPASE 12 U/L (22-51); SODIUM 124 mmol/L (135-145); TOTAL PROTEIN 8.1 g/dL (6.7-8.2)
[2017-04-30 11:39] LABS: CARBON DIOXIDE - CO2 7 mmol/L (21-32)
[2017-04-30 11:39] LABS: BACTERIA,URINE Few /HPF (None Seen); RBC,URINE 0-5 /HPF (0-5); SQUAMOUS EPITHELIAL CELL,UR MANY Squamous (<= Few)
[2017-04-30 11:40] LABS: COCAINE SCREEN URINE NEGATIVE (NEGATIVE); METHAMPHETAMINES SCREEN, URINE POSITIVE (NEGATIVE); OPIATE SCREEN, URINE NEGATIVE (NEGATIVE)
[2017-04-30 11:41] LABS: GLUCOSE 606 mg/dL (70-100)
[2017-04-30 11:41] LABS: AMPHETAMINE SCREEN,URINE POSITIVE (NEGATIVE); BENZODIAZEPINES SCREEN, URINE NEGATIVE (NEGATIVE); METHADONE SCREEN, URINE NEGATIVE (NEGATIVE); OXYCODONE SCREEN, URINE NEGATIVE (NEGATIVE); PROPOXYPHENE SCREEN, URINE NEGATIVE (NEGATIVE); TRICYCLIC ANTIDEPRESSANT,URINE NEGATIVE (NEGATIVE)
[2017-04-30 11:47] LABS: KETONES, SERUM (ACETEST) LARGE (NEGATIVE)
[2017-04-30] MEDS ORDERED: PROMETHAZINE 25 MG/1 ML VIAL IM STA (12:24)
[2017-04-30] MEDS ORDERED: ONDANSETRON 4 MG/2 ML VIAL IVP PRN (12:40)
[2017-04-30] MEDS ORDERED: ONDANSETRON ODT 4 MG TABLET TL PRN (12:40)
[2017-04-30] MEDS ORDERED: INSULIN REGULAR HUMAN 100 UNIT/1 ML 10 ML MDV SUBQ ONE (13:12)
[2017-04-30] MEDS ORDERED: INSULIN REGULAR HUMAN 100 UNIT in SODIUM CHLORIDE 0.9% 100ML 99 ML IV SCH (14:00)
[2017-04-30 14:08] LABS: HB2 TOTAL 14.6 g/dL; HEMOGLOBIN A1C 1.59 g/dL; HEMOGLOBIN A1C % 12.1 % (4.6-6.2)
[2017-04-30 14:27] LABS: HCG UR QUAL NEGATIVE
[2017-04-30] MEDS: SODIUM CHLORIDE FLUSH 0.9% 10 ML SYRINGE IVP PRN ×8 (14:48→21:59)
[2017-04-30] MEDS: ENOXAPARIN 40 MG/0.4 ML SYRINGE SUBQ SCH (14:50)
[2017-04-30 14:55] LABS: VBG BASE EXCESS -25.3 mmol/L (-2 - +2); VBG PCO2 20.7 mmHg (41-51); VBG PH 6.986 (7.31-7.41); VBG PO2 69.9 mmHg (25-47); VBG TOTAL CO2 5.5 mmol/L (24-29)
--- NOTE | 2017-04-30 14:57 | XRAY Report ---
FRONTAL CHEST: 04/30/2017 CLINICAL INDICATION: Central line placement. COMPARISON: 03/29/2017. FINDINGS: Frontal view of the chest demonstrates a normal cardiac silhouette. The lungs are clear. No effusion or pneumothorax is present. Right jugular central venous catheter terminates at the cavoatrial junction. IMPRESSION: RIGHT JUGULAR CENTRAL VENOUS CATHETER TERMINATING AT THE CAVOATRIAL JUNCTION. NO PNEUMOTHORAX. TD: 04/30/2017 14:56
[2017-04-30 15:10] LABS: BUN - BLOOD UREA NITROGEN 62 mg/dL (6-20); CALCIUM 8.5 mg/dL (8.5-10.3); CHLORIDE 85 mmol/L (101-111); CREATININE 1.7 mg/dL (0.4-1.0); GFR - MDRD 34 (>89); MAGNESIUM 2.5 mg/dL (1.7-2.8); SODIUM 122 mmol/L (135-145)
[2017-04-30 15:12] LABS: CARBON DIOXIDE - CO2 < 6 mmol/L (21-32)
[2017-04-30 15:13] LABS: GLUCOSE 761 mg/dL (70-100)
[2017-04-30] MEDS ORDERED: QUEtiapine 25 MG TABLET PO SCH (16:00)
[2017-04-30] MEDS: KETOROLAC 15 MG/ML VIAL IVP PRN ×2 (16:14→21:59)
[2017-04-30] MEDS: SODIUM CHLORIDE FLUSH 0.9% 10 ML SYRINGE IVP SCH (16:19)
[2017-04-30] MEDS: SODIUM CHLORIDE 0.9% 1,000 ML IV SCH ×2 (17:06→22:05)
[2017-04-30] MEDS: LORazepam 2 MG/ML VIAL IVP PRN ×3 (17:17→21:59)
[2017-04-30] MEDS: AMITRIPTYLINE 25 MG TABLET PO SCH ×2 (17:21→20:02)
[2017-04-30 17:27] LABS: CALCIUM 7.9 mg/dL (8.5-10.3); CREATININE 1.3 mg/dL (0.4-1.0); MAGNESIUM 2.3 mg/dL (1.7-2.8)
--- NOTE | 2017-04-30 18:43 | HISTORY & PHYSICAL EXAMINATION ---
DATE OF SERVICE: 04/30/2017 Physician: Jillian Sandhu MD PRIMARY CARE PROVIDER: None. ADMITTING PROVIDER: Jillian Sandhu MD. CHIEF COMPLAINT: DKA. She is a 37-year-old female who is well known to our emergency room and to our hospitalist service for being an unfortunate homeless individual who has had multiple admissions for diabetic ketoacidosis secondary to noncompliance with her medications, methamphetamine abuse, hypothermia in the past has been severe, pneumonia, and her tips of her toes are chronically ischemic from combination of frostbite and ischemia. She is yet brought in again by ambulance after being found down with altered mental status. She is yet again in DKA. There have been multiple interventions in the part of case management and social work to find this patient placement, or at least a long-term. Nothing has been successful in the past. PAST MEDICAL HISTORY 1. It is unclear if this patient has type 1 diabetes mellitus or type 2 since 1999. Both are recorded in the medical record. 2. Chronic pain from fibromyalgia. 3. Chronic sinus tachycardia. 4. Hypertension. 5. Psychiatric disease. 6. Short-term memory loss secondary to multiple episodes of hypothermia, DKA, and methamphetamine abuse. 7. G22, P1-0-21-1. 8. Cyst removal, left mosque age 6. 9. Tonsillectomy age 9. 10. Cholecystectomy, age 16. 11. Valvular heart disease with moderate pulmonary hypertension, moderate tricuspid regurgitation, and a ventricle that looks dilated on echo 12/2015. 12. Chronic right foot ischemia with toes that are chronically black or blue. 13. Probable chronic pancreatitis with reactive lymphadenopathy. ALLERGIES: 1. CODEINE. 2. HYDROCODONE. 3. MACROBID. 4. MILK. MEDICATIONS: None. SOCIAL HISTORY: She is from [place]. Moved to [facility] [place]. Was living with her father, and when he , kicked out of the house by her stepmother. Her 1 daughter lives with her stepmother, and she has lost custody of that child. She stays in the area to maintain an intermittent sporadic relationship with that daughter. She continues to be homeless. Homeless since February 2016. She does do heroin, methamphetamines. FAMILY HISTORY: Dad in 2015 of complications of heart failure, stroke, coronary artery disease, diabetes and ischemic cardiomyopathy. mom's history unknown. No siblings. One daughter is healthy. REVIEW OF SYSTEMS: Unobtainable. She is in the ICU, and is already asking for food, pain management. She hurts all over, and because she is homeless, does not have ready access to food and eats pretty much nonstop while she is here. She does not like to discuss review of systems other than how it pertains to chronic hunger and chronic diffuse body pain. What is interesting is she never really complains about the foot pain even though her toes are always ischemic. PHYSICAL EXAMINATION VITAL SIGNS: Temperature is 36.4, pulse has been consistently tachycardic in the emergency room in the 120s, sometimes up to the 130s. Blood pressure 136/66, respirations 22. HEAD AND NECK: Remarkable for disheveled hair, most of her teeth are missing, dry oral mucosa, cracked lips, beefy red tongue. No facial asymmetry. Speech is normal and phonation is normal. Neck has shotty adenopathy, no goiter or bruits. LUNGS: Clear with coarse upper airway tubular breath sounds, but without any tachypnea, use of accessory muscles. There are no crackles, rhonchi or wheezing. HEART: PMI is normally placed and she has got a very fast, thready, tachycardic , regular rate and rhythm with systolic ejection murmur. ABDOMEN: Soft, she is diffusely tender and says that she just hurts all over. When I asked when this started, she sort of shrugs and says it is always there. There is no increase in her abdominal pain according to her history right now. She has no rebound, no guarding. Normal active bowel sounds. No masses palpable. EXTREMITIES: Remarkable for no pulses palpable, the right toes are purple rubor. The very tip sometimes have black dots. Left foot is not as severe as right foot with regard to the toe damage. No edema. Skin is tight and shiny. She moves her extremities spontaneously. NEUROLOGIC: Patient has a dense peripheral neuropathy: She is alert and oriented to person, place and time, speech/thought patterns are repeated here today. She has a fast pressured nonstop verbal approached and communication to nursing staff when awake. Same with dietary staff. Today is no different. She has a list of requests including Toradol, Ativan, Elavil, and she usually does start asking for narcotics by the second day. Speech with this is all normal. She needs constant reminders and constant prompting. She will forget what you told her 3 minutes ago. Cranial nerves appear intact except with 1 not tested. There is no focal motor strength loss. LABORATORY DATA: Her sodium on admission was 124 with a potassium of 5.7, chloride 88, carbon dioxide 7, anion gap 29, BUN 46, creatinine 1.1, GFR 57, random glucose 606, glycosylated hemoglobin 12.1, calcium 9.2, total bilirubin 1.5. AST, ALT normal. She sat in the emergency room from 11:14 to 14:43 and unfortunately because of line access difficulty she was not able to receive much fluid and she did get 10 units of subcutaneous insulin. By the time she got to the ICU with the line in place, repeat labs showed a sodium of 122, potassium 6.8, chloride 85, carbon dioxide less than 6, BUN 62, creatinine 1.7, glucose 761. White cell count 14.9, hemoglobin 13.7, hematocrit 46.1, platelets 434. Venous pH is 6.986, base excess -25.3. Urinalysis is with glucosuria, ketonuria many squamous cells, a few bacteria. Culture is not indicated. Urine hCG is negative. Her U-tox screen is positive for amphetamines, methamphetamines, and moderate ketones. Chest x-ray was done after a central line placement in right jugular central venous catheter terminating at the cavoatrial junction. No pneumothorax. Lungs are clear. No effusion or pneumothorax present. ASSESSMENT AND PLAN 1. Diabetic ketoacidosis, type 2. She has severe electrolyte imbalances, severe metabolic acidosis. Anion gap is quite high. No urinary tract infection on exam. No pneumonia on chest x-ray. PLAN: Place in Intensive Care Unit. ATTESTATION that the patient will be admitted for less than 96 hours with evaluation for transfer or discharge to occur at 96 hours. She has already received 1 liter of fluid in the ED, give her another liter bolus now. Start normal saline 0.9 at 200 mL an hour maintenance. Insulin drip. ICU electrolyte protocol. Blood draws every 2 hours to make sure we are going in the right direction with acidosis, anion gap, and her hyperkalemia. 2. Acute kidney injury with severe electrolyte imbalance as noted above. She has recovered in the past with hydration and correction of her insulin in the past. I expect her to do so again today. We will continue to monitor on a daily basis. 3. Chronic pain syndrome. I started her back on Elavil, Toradol, and Risperdal. 4. Homeless status. We will reassess through social work if situation has changed. 5. FULL CODE STATUS. 6. Deep vein thrombosis prophylaxis with Lovenox. 7. Personality disorder, unspecified, may be due to substance abuse. Avoid opiates, use ativan for agitation sparingly, use risperal sparingly, she asks for elavil at night. TD: 04/30/2017 18:41 MTDD
[2017-04-30 18:46] LABS: PHOSPHORUS 4.7 mg/dL (2.5-4.6)
[2017-04-30] MEDS: ACETAMINOPHEN 325 MG TABLET PO PRN (19:03)
[2017-04-30 19:29] LABS: VBG PH 7.228 (7.31-7.41)
[2017-04-30] MEDS: risperiDONE 0.25 MG TABLET PO SCH (20:03)
[2017-04-30 21:20] LABS: CALCIUM 7.8 mg/dL (8.5-10.3)
[2017-04-30] MEDS ORDERED: D5.45NS W/20 MEQ KCL 1,000 ML IV SCH (23:45)
[2017-05-01] MEDS: LORazepam 2 MG/ML VIAL IVP PRN ×2 (00:05→02:02)
[2017-05-01] MEDS: ACETAMINOPHEN 325 MG TABLET PO PRN ×2 (00:08→17:14)
[2017-05-01] MEDS: SODIUM CHLORIDE FLUSH 0.9% 10 ML SYRINGE IVP PRN ×2 (00:10→02:12)
[2017-05-01 01:39] LABS: ALBUMIN 3.5 g/dL (3.2-5.5); ALBUMIN/GLOBULIN RATIO 1.3 (1.0-2.2); BILIRUBIN,TOTAL 0.9 mg/dL (0.2-1.0); CALCIUM 7.7 mg/dL (8.5-10.3); CREATININE 0.7 mg/dL (0.4-1.0); TOTAL PROTEIN 6.2 g/dL (6.7-8.2)
[2017-05-01] MEDS ORDERED: METHOCARBAMOL 500 MG TABLET PO PRN (01:50)
[2017-05-01] MEDS ORDERED: clonazePAM 0.5 MG TABLET PO PRN (01:50)
[2017-05-01] MEDS: SODIUM CHLORIDE FLUSH 0.9% 10 ML SYRINGE IVP SCH ×3 (02:12→17:17)
[2017-05-01] MEDS: INSULIN GLARGINE 300 UNIT/3 ML PEN SUBQ SCH ×2 (02:13→09:06)
[2017-05-01] MEDS: METOPROLOL SUCCINATE 25 MG TABLET PO SCH ×3 (02:13→20:20)
[2017-05-01 05:06] LABS: VBG PH 7.282 (7.31-7.41)
[2017-05-01 05:12] LABS: CALCIUM 7.9 mg/dL (8.5-10.3); CREATININE 0.6 mg/dL (0.4-1.0)
[2017-05-01] MEDS: GABAPENTIN 300 MG CAPSULE PO SCH ×3 (06:09→21:07)
[2017-05-01] MEDS: INSULIN ASPART 300 UNIT/3 ML PEN SUBQ SCH ×7 (08:09→20:59)
[2017-05-01] MEDS: DULoxetine 20 MG CAPSULE PO SCH (08:17)
[2017-05-01] MEDS: CILOSTAZOL 100 MG TABLET PO SCH ×2 (08:17→20:21)
[2017-05-01] MEDS: FERROUS SULFATE 325 MG TABLET PO SCH (08:18)
[2017-05-01] MEDS: diltiaZEM CD 120 MG CAPSULE PO SCH (08:18)
[2017-05-01] MEDS: risperiDONE 0.25 MG TABLET PO SCH ×2 (08:24→20:21)
[2017-05-01] MEDS: ENOXAPARIN 40 MG/0.4 ML SYRINGE SUBQ SCH (08:26)
[2017-05-01] MEDS ORDERED: INSULIN ASPART 300 UNIT/3 ML PEN SUBQ ONE (11:43)
[2017-05-01] MEDS: OXYBUTYNIN 5MG TABLET PO SCH ×2 (12:27→20:21)
[2017-05-01] MEDS: KETOROLAC 15 MG/ML VIAL IVP PRN (17:13)
--- NOTE | 2017-05-01 18:25 | PROVIDER PROGRESS NOTE ---
Subjective - Prog Note Date Prog Note Date: 05/01/17 Prog Note Time: 18:22 - Subjective Subjective: she was off her drip in the early early hours of this am and changed to lantus around 2 am. Now eating. On fixed dose correctional and SS before meals. Glucose is still 300's to 400s. Anion gap closing slowly. Electrolytes improved and hyperkalemia resolved. she is on her tachycardia meds, pain control meds, benzodiazepines. Current Medications - Current Medications Current Medications: Active Medications Acetaminophen (Tylenol) 650 mg PO Q4HR PRN PRN Reason: Pain or Fever > 38C (100.4F) Last Admin: 05/01/17 17:14 Dose: 650 mg Amitriptyline HCl (Elavil) 50 mg PO QPM [facility] Cilostazol (Pletal) 100 mg PO BID [facility] Last Admin: 05/01/17 08:17 Dose: 100 mg Clonazepam (Klonopin) 1 mg PO BID PRN PRN Reason: Anxiety Diltiazem HCl (Cardizem Cd) 120 mg PO DAILY [facility] Last Admin: 05/01/17 08:18 Dose: 120 mg Duloxetine HCl (Cymbalta) 60 mg PO DAILY [facility] Last Admin: 05/01/17 08:17 Dose: 60 mg Enoxaparin Sodium (Lovenox) 40 mg SUBQ DAILY [facility] Last Admin: 05/01/17 08:26 Dose: 40 mg Ferrous Sulfate (Feosol) 325 mg PO DAILY [facility] Last Admin: 05/01/17 08:18 Dose: 325 mg Gabapentin (Neurontin) 600 mg PO TID [facility] Last Admin: 05/01/17 14:16 Dose: 600 mg Heparin Sodium (Beef Lung) () 30 - 50 unit IVP ONCE PRN PRN Reason: Central Line Protocol (<24 hr) Stop: 05/30/17 15:55 Last Admin: 04/30/17 16:24 Dose: 30 unit Insulin Aspart (Novolog) 3 - 11 unit SUBQ 0800,1200,1700,2100 [facility] PRN Reason: Protocol Last Admin: 05/01/17 17:07 Dose: 11 unit Insulin Aspart (Novolog) 12 unit SUBQ TIDWM [facility] Insulin Glargine (Lantus Solostar) 60 unit SUBQ DAILY [facility] Ketorolac Tromethamine (Toradol Inj) 15 mg IVP Q6HR PRN PRN Reason: PAIN Stop: 05/05/17 15:41 Last Admin: 05/01/17 17:13 Dose: 15 mg Lorazepam (Ativan Inj (Vial)) 0.5 mg IVP Q2H PRN PRN Reason: Anxiety Last Admin: 05/01/17 02:02 Dose: 0.5 mg Methocarbamol (Robaxin) 500 mg PO BID PRN PRN Reason: Spasms Metoprolol Succinate (Toprol Xl) 25 mg PO BID [facility] Last Admin: 05/01/17 12:27 Dose: 25 mg Ondansetron HCl (Zofran Inj) 4 mg IVP Q6HR PRN PRN Reason: Nausea / Vomiting Last Admin: 04/30/17 16:22 Dose: 4 mg Ondansetron HCl (Zofran Odt) 4 mg TL Q6HR PRN PRN Reason: Nausea / Vomiting Oxybutynin Chloride (Ditropan) 5 mg PO BID [facility] Last Admin: 05/01/17 12:27 Dose: 5 mg Risperidone (Risperdal) 0.25 mg PO BID [facility] Last Admin: 05/01/17 08:24 Dose: 0.25 mg Sodium Chloride (Normal Saline Flush 0.9%) 10 ml IVP 0100,0900,1700 [facility] Last Admin: 05/01/17 17:17 Dose: 10 ml Sodium Chloride (Normal Saline Flush 0.9%) 10 ml IVP PRN PRN PRN Reason: NEEDED PER PROVIDER ORDERS Last Admin: 05/01/17 02:12 Dose: 10 ml Objective - Vital Signs/Intake & Output Reviewed Vital Signs: Yes Vital Signs: Vital Signs Temp Pulse Resp BP Pulse Ox 05/01/17 16:56 36.5 C 120 H 16 150/81 H 97 Intake & Output: Intake & Output 04/28/17 04/29/17 04/30/17 05/01/17 23:59 23:59 23:59 23:59 Intake Total 4117.958 5713.100 Output Total 1600 Balance 2517.958 5713.100 - Objective General Appearance: positive: No acute distress, Alert, Other (however she describes pain all over and keeps on asking for oxycodone or dilaudid) Eyes Bilateral: positive: PERRL, EOMI ENT: positive: Other (very poor teeth w dental carries) Neck: positive: No JVD. negative: Stiff neck, Carotid bruit Respiratory: positive: Chest non-tender. negative: Wheezes, Rales, Rhonchi Cardiovascular: positive: Regular rate & rhythm, Tachycardia. negative: Gallop/ S4, Friction rub Abdomen: positive: Non-tender, No organomegaly, Nml bowel sounds, No distention Skin: positive: Warm, Dry Neurologic/Psychiatric: positive: Oriented x3, CN's nml (2-12), Motor nml, Other (fast pressured speech, flight of thoughts, very poor short term memory) - Lab Results Fish Bones: 04/30/17 11:14 05/01/17 04:15 Other Labs: Lab Results x24hrs 05/01/17 05/01/17 05/01/17 Range/Units 04:15 04:15 04:15 VBG pH 7.282 L (7.31-7.41) Ionized Calcium 1.12 L (1.15-1.33) mmol/L Sodium 134 L (135-145) mmol/L Potassium 4.0 (3.5-5.0) mmol/L Chloride 106 (101-111) mmol/L Carbon Dioxide 20 L (21-32) mmol/L Anion Gap 8.0 (6-13) BUN 37 H (6-20) mg/dL Creatinine 0.6 (0.4-1.0) mg/dL Estimated GFR (MDRD) 114 (>89) Glucose 135 H (70-100) mg/dL Calcium 7.9 L (8.5-10.3) mg/dL Phosphorus 3.0 (2.5-4.6) mg/dL Magnesium 2.0 (1.7-2.8) mg/dL Total Bilirubin (0.2-1.0) mg/dL AST (10-42) IU/L ALT (10-60) IU/L Alkaline Phosphatase (42-121) IU/L Total Protein (6.7-8.2) g/dL Albumin (3.2-5.5) g/dL Globulin (2.1-4.2) g/dL Albumin/Globulin Ratio (1.0-2.2) 05/01/17 04/30/17 04/30/17 Range/Units 01:20 21:02 19:08 VBG pH 7.228 L (7.31-7.41) Ionized Calcium 1.13 L (1.15-1.33) mmol/L Sodium 133 L 132 L (135-145) mmol/L Potassium 4.0 4.5 (3.5-5.0) mmol/L Chloride 106 103 (101-111) mmol/L Carbon Dioxide 19 L 16 L (21-32) mmol/L Anion Gap 8.0 13.0 (6-13) BUN 42 H 49 H (6-20) mg/dL Creatinine 0.7 1.0 (0.4-1.0) mg/dL Estimated GFR (MDRD) 95 63 L (>89) Glucose 160 H 256 H (70-100) mg/dL Calcium 7.7 L 7.8 L (8.5-10.3) mg/dL Phosphorus (2.5-4.6) mg/dL Magnesium (1.7-2.8) mg/dL Total Bilirubin 0.9 (0.2-1.0) mg/dL AST 21 (10-42) IU/L ALT 34 (10-60) IU/L Alkaline Phosphatase 110 (42-121) IU/L Total Protein 6.2 L (6.7-8.2) g/dL Albumin 3.5 (3.2-5.5) g/dL Globulin 2.7 (2.1-4.2) g/dL Albumin/Globulin Ratio 1.3 (1.0-2.2) 04/30/17 Range/Units 17:41 VBG pH (7.31-7.41) Ionized Calcium (1.15-1.33) mmol/L Sodium (135-145) mmol/L Potassium (3.5-5.0) mmol/L Chloride (101-111) mmol/L Carbon Dioxide (21-32) mmol/L Anion Gap (6-13) BUN (6-20) mg/dL Creatinine (0.4-1.0) mg/dL Estimated GFR (MDRD) (>89) Glucose (70-100) mg/dL Calcium (8.5-10.3) mg/dL Phosphorus 4.7 H (2.5-4.6) mg/dL Magnesium (1.7-2.8) mg/dL Total Bilirubin (0.2-1.0) mg/dL AST (10-42) IU/L ALT (10-60) IU/L Alkaline Phosphatase (42-121) IU/L Total Protein (6.7-8.2) g/dL Albumin 4.0 (3.2-5.5) g/dL Globulin (2.1-4.2) g/dL Albumin/Globulin Ratio (1.0-2.2) Assessment/Plan - Problem List (1) DKA, type 1 Impression: off drip but C02 normalizing but not nml yet. AG is closing and normalizing. transitioned to ususal lantus and short acting. continue to work with control while here. Qualifiers: Diabetes mellitus complication detail: without coma Qualified Code(s): E10.10 - Type 1 diabetes mellitus with ketoacidosis without coma (2) Electrolyte abnormality Impression: with hyperkalemia, hypocalcemia. on electrolyte protocol labs now normalizing. continue to monitor (3) Chronic pain disorder Impression: subjective but objective finding of ischemia of toes, dental caries. use of metamphetamine I'm sure makes her feel lousy when not usng. on ususal meds. no opiates if at all possible. 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 on risperdal here with usual ativan, clonipin, cymbalta, elavil
[2017-05-01] MEDS ORDERED: INSULIN ASPART 300 UNIT/3 ML PEN SUBQ SCH (20:51)
[2017-05-01] MEDS ORDERED: INSULIN GLARGINE 300 UNIT/3 ML PEN SUBQ SCH (21:00)
[2017-05-01] MEDS ORDERED: AMITRIPTYLINE 25 MG TABLET PO SCH (21:00)
[2017-05-02] MEDS: SODIUM CHLORIDE FLUSH 0.9% 10 ML SYRINGE IVP SCH ×2 (01:51→14:03)
[2017-05-02 06:15] LABS: CALCIUM 8.8 mg/dL (8.5-10.3); CREATININE 0.5 mg/dL (0.4-1.0); MAGNESIUM 1.9 mg/dL (1.7-2.8); PHOSPHORUS 2.8 mg/dL (2.5-4.6)
[2017-05-02] MEDS: GABAPENTIN 300 MG CAPSULE PO SCH ×2 (06:16→14:02)
[2017-05-02 06:27] LABS: VBG PH 7.295 (7.31-7.41)
[2017-05-02] MEDS: INSULIN ASPART 300 UNIT/3 ML PEN SUBQ SCH ×6 (08:12→16:28)
[2017-05-02] MEDS: ENOXAPARIN 40 MG/0.4 ML SYRINGE SUBQ SCH (08:13)
[2017-05-02] MEDS: OXYBUTYNIN 5MG TABLET PO SCH (08:15)
[2017-05-02] MEDS: risperiDONE 0.25 MG TABLET PO SCH (08:15)
[2017-05-02] MEDS: diltiaZEM CD 120 MG CAPSULE PO SCH (08:16)
[2017-05-02] MEDS: FERROUS SULFATE 325 MG TABLET PO SCH (08:16)
[2017-05-02] MEDS: METOPROLOL SUCCINATE 25 MG TABLET PO SCH (08:16)
[2017-05-02] MEDS: DULoxetine 20 MG CAPSULE PO SCH (08:17)
[2017-05-02] MEDS: CILOSTAZOL 100 MG TABLET PO SCH (08:17)
--- NOTE | 2017-05-02 14:34 | Discharge Plan ---
Discharge Plan Disposition: 01 Home, Self Care Condition: Stable Diet: Diabetic Activity Restrictions: Activity as Tolerated Shower Restrictions: No Driving Restrictions: Yes (no driving) Additional Instructions or Follow Up instructions: You were admitted for diabetic ketoacidosis requiring IV insulin in the ICU. You were severely dehydrated with an elevated potassium. All of those things have corrected after being in the ICU, hydration, and getting your sugars under control. You also have chronic pain syndrome, a personality disorder that may or may not be bipolar, and a current history of methamphetamine abuse. Please see a regular doctor on a regular basis to get your medicines. Please stop doing methamphetamines. Please take your insulin on a regular basis and eat food on a regular schedule. No Smoking: If you smoke, Please STOP! Call for help.
[2017-05-02 15:43] VITALS: BP 110/60
--- NOTE | 2017-05-04 22:41 | DISCHARGE SUMMARY ---
Physician: Jillian Sandhu MD DATE OF ADMISSION: 04/30/2017 DATE OF DISCHARGE: 05/02/2017 PRIMARY CARE PROVIDER: She has no primary care provider. DISCHARGE DIAGNOSES 1. Diabetic ketoacidosis, type 2 versus type 1. 2. Electrolyte imbalance. 3. Metabolic acidosis with high anion gap. 4. Acute kidney injury. 5. Chronic pain syndrome. 6. Homeless status. 7. Personality disorder, unspecified. DISCHARGE MEDICATIONS 1. Elavil 50 mg q.p.m. 2. Pletal 100 mg p.o. b.i.d. 3. Klonopin 1 mg p.o. b.i.d. 4. Clonidine 0.1 mg p.o. b.i.d. 5. Diltiazem CD 120 mg p.o. daily. 6. Cymbalta 60 mg daily. 7. Ferrous sulfate 325 mg daily. 8. Gabapentin 600 mg p.o. t.i.d. 9. Dilaudid 4 mg p.o. q.4 hours p.r.n. 10. NovoLog insulin 12 units subcutaneous t.i.d. before meals. 11. Lantus 60 units daily. 12. Meloxicam 7.5 mg p.o. b.i.d. 13. Robaxin 500 mg p.o. b.i.d. 14. Toprol-XL 25 mg p.o. b.i.d. 15. Disposable needle. 16. Ditropan 5 mg p.o. b.i.d. Of the above medication list, it is unclear what the patient takes. She does not have a primary care provider, and receives her care sporadically through the ED and through discharge from this hospital. At this point in time, the only prescriptions that were refilled where her NovoLog, Lantus, needles, and gabapentin. PRINCIPAL PROCEDURES: IV insulin drip. HOSPITAL COURSE: The patient is a 36-year-old white female who is well known to the emergency room and our hospitalist service. This patient is sometimes admitted at least once if not twice a month in DKA. She is homeless. She has been kicked out of the home she was living starting in February 2016. She has been admitted with hypothermia severe enough to cause frostbite at the tips of her toes and she presents with intermittent ischemia in the past. She has also had a diagnosis of pancreatitis with reactive lymphadenopathy on CT. Patient is again brought in, found down in a field. DKA present on exam. With placement in ICU, warming her, she responded quickly. Within 12-16 hours, she was able to come off the insulin drip and transitioned to her Lantus and her NovoLog. This unfortunate female eats nonstop. She will eat her 3 meals and 2 snacks a day. Snacks will sometimes consist of another full meal. Her metabolic acidosis with high anion gap resolved. Her electrolyte imbalance with DKA resolved. She still manifests personality disorder, most likely due to a combination of intrinsic disease as well as her history of substance abuse including methamphetamines, heroin, and brain damage from being hypothermic and in DKA so many times. Numerous episodes have been made in the past to place the patient. All have been unsuccessful either due to facilities not wanting her, or her own desire not to go to specific facilities because she does not get the freedom she likes. After 2 days, she was felt to be stable enough to be discharged to her usual homeless setting. Exam at the time of discharge is 36.5 temp, pulse 106. She has chronic tachycardia since she moved to [facility] in 2013. Blood pressure 110/60, respirations 18, 97% on room air. This patient is a young white female who looks older than her stated age, severe dental caries. Shotty neck adenopathy. Lungs that are clear to auscultation and percussion. PMI that is normally placed, a regular rate and rhythm that is tachycardic. She does have a slight right ventricular lift. The abdomen is soft, diffusely achy, but normal bowel sounds. No rebound or guarding. She has partial amputation of the right foot, some of her toes are ischemic in the right and left, but that is chronic for her. Foot pulses are not palpable in either foot. Neurologically she has fast pressured speech. She will over speak anybody in the room. She has repetitive sentence structure. She needs to be prompted frequently, but she is alert and oriented to place and time. She speaks lucidly. Greater than 30 minutes was spent in coordinating discharge between social service, case management, pharmacy, and making yet another attempt to see if she is willing to go to a fci. TD: 05/04/2017 22:41 MTDAnnabelle
== END 2017-05-02 17:45 | disposition home or self-care (01) | DRG 638 ==
LOC: EDUNIT# → ED 10:34 → ICU 12:40 → MS2 05-02 00:49
PROVIDERS: ADMIT Specialist; ATTEND Specialist
PROC: 02HV33Z Insertion of Infusion Device into Superior Vena Cava, Percutaneous Approach (ICD-10-PCS; principal; 2017-04-30)
DX: E11.10 Type 2 diabetes mellitus with ketoacidosis without coma (principal); N17.9 Acute kidney failure, unspecified; I38 Endocarditis, valve unspecified; K86.1 Other chronic pancreatitis; E87.5 Hyperkalemia; E83.51 Hypocalcemia; E86.0 Dehydration; M79.7 Fibromyalgia; R00.0 Tachycardia, unspecified; I27.20 Pulmonary hypertension, unspecified; I07.1 Rheumatic tricuspid insufficiency; R41.3 Other amnesia; F11.10 Opioid abuse, uncomplicated; F15.10 Other stimulant abuse, uncomplicated; E11.621 Type 2 diabetes mellitus with foot ulcer; L97.519 Non-pressure chronic ulcer of other part of right foot with unspecified severity; E11.51 Type 2 diabetes mellitus with diabetic peripheral angiopathy without gangrene; E11.42 Type 2 diabetes mellitus with diabetic polyneuropathy; I10 Essential (primary) hypertension; G93.89 Other specified disorders of brain; F60.9 Personality disorder, unspecified; F91.9 Conduct disorder, unspecified; F17.200 Nicotine dependence, unspecified, uncomplicated; Z91.14 Patient's other noncompliance with medication regimen; Z79.4 Long term (current) use of insulin; Z79.891 Long term (current) use of opiate analgesic; Z79.899 Other long term (current) drug therapy; Z87.01 Personal history of pneumonia (recurrent); Z89.411 Acquired absence of right great toe; Z59.0 Homelessness
CPT/HCPCS: 36415; 71045; 80048; 80053; 80306; 81001; 81003; 81025; 82009; 82040; 82330; 82803; 82947; 83036; 83690; 83735; 84100; 84703; 85025; 87086; 87150; 96360; 96372; 99284

== ENCOUNTER 2017-05-08 12:08 | Outpatient (CLI) | payer MEDICAID | END 2017-05-08 12:09 | disposition critical access hospital (66) | LOC: EMS 12:08 | PROVIDERS: ATTEND Surgery | DX: H53.9 Unspecified visual disturbance (principal); R73.09 Other abnormal glucose | CPT/HCPCS: A0425; A0429 ==

== ENCOUNTER 2017-05-08 12:26 | Inpatient (IN) | payer MEDICAID ==
[2017-05-08] MEDS ORDERED: SODIUM CHLORIDE 0.9% 1,000 ML IV ONE ×2 (12:27)
--- NOTE | 2017-05-08 12:34 | ED Physician Documentation ---
History of Present Illness - Stated complaint Stated Complaint: DIABETIC ISSUE - History obtained from History obtained from: Patient, EMS - History of Present Illness Timing: Today Pain level max: 6 Pain level now: 5 Improved by: inuslin Worsened by: not taking her insulin - Additonal information Additional information: Patient is a well known diabetic female who is chronically non-compliant with her outpatient regimen. She frequently uses methamphetamines as well. Today EMS was called and her blood sugar was 538. Recently discharged from the hospital for DKA. nausea and vomiting today. Review of Systems Ten Systems: 10 systems reviewed and negative Constitutional: reports: Chills. denies: Fever Ears: denies: Ear pain Nose: denies: Rhinorrhea / runny nose, Congestion Throat: denies: Sore throat Cardiac: denies: Chest pain / pressure Respiratory: denies: Cough GI: reports: Nausea, Vomiting. denies: Diarrhea Skin: denies: Rash Musculoskeletal: denies: Neck pain, Back pain Neurologic: denies: Headache PD PAST MEDICAL HISTORY - Past Medical History Cardiovascular: Hypertension, High cholesterol, Peripheral Vascular Disease, [place] Respiratory: None Neuro: Peripheral neuropathy Endocrine/Autoimmune: Type 1 diabetes GI: Pancreatitis UPPER TIER: None : None HEENT: None Psych: Depression, Anxiety, Panic attacks Musculoskeletal: Fibromyalgia Derm: None - Past Surgical History Past Surgical History: Yes General: Cholecystectomy HEENT: Tonsil/Adenoidectomy - Present Medications Home Medications: Ambulatory Orders Medication Instructions Recorded Confirmed Amitriptyline [Elavil] 50 mg PO QPM 30 Days #30 tablet 02/03/17 04/30/17 Cilostazol [Pletal] 100 mg PO BID #30 tablet 03/21/17 04/30/17 DULoxetine [Cymbalta] 60 mg PO DAILY #90 capsule 03/21/17 04/30/17 Ferrous Sulfate 325 mg PO DAILY #30 tablet 03/21/17 04/30/17 HYDROmorphone [Dilaudid] 4 mg PO Q4H PRN #28 tablet 03/21/17 04/30/17 Insulin Aspart [NovoLOG] 7 unit SUBQ TIDWM #2 pen 03/21/17 04/30/17 Meloxicam [Mobic] 7.5 mg PO BID #60 tablet 03/21/17 04/30/17 Methocarbamol [Robaxin] 500 mg PO BID PRN #30 tablet 03/21/17 04/30/17 Metoprolol Succinate [Toprol Xl] 25 mg PO BID #60 tablet 03/21/17 04/30/17 Oxybutynin [Ditropan] 5 mg PO BID #60 tablet 03/21/17 04/30/17 cloNIDine [Catapres] 0.1 mg PO BID #60 tablet 03/21/17 04/30/17 clonazePAM [KlonoPIN] 1 mg PO BID PRN #30 tablet 03/21/17 04/30/17 diltiaZEM CD [Cardizem Cd] 120 mg PO DAILY #30 capsule 03/21/17 04/30/17 Gabapentin 600 mg PO TID #90 capsule 05/02/17 Insulin Aspart [NovoLOG] 12 unit SUBQ TIDWM #3 pen 05/02/17 Insulin Glargine [Lantus Solostar] 60 unit SUBQ DAILY #10 pen 05/02/17 [place], Disposable [Needle] 1 each MC TID #1 pkg 05/02/17 - Allergies Allergies/Adverse Reactions: Allergies Allergy/AdvReac Type Severity Reaction Status Date / Time codeine Allergy Hives Verified 03/14/17 13:38 hydrocodone Allergy Hives Verified 03/14/17 13:38 milk AdvReac Cramps Verified 03/14/17 13:38 nitrofurantoin AdvReac Headache Verified 03/14/17 13:38 [From Macrobid] PAPER TAPE AdvReac Unknown Uncoded 03/14/17 13:38 - Social History Does the pt smoke?: Yes Smoking Status: Current every day smoker Does the pt drink ETOH?: No Does the pt have substance abuse?: Yes - Immunizations Immunizations are current?: Yes - POLST Patient has POLST: No POLST Status: Full Code PD ED PE NORMAL - Vitals Vital signs reviewed: Yes - General General: Alert and oriented X 3, No acute distress, Other (disheveled) - HEENT HEENT: PERRL, Other (dry lips) - Neck Neck: Supple, no meningeal sign - Cardiac Cardiac: RRR, Strong equal pulses - Respiratory Respiratory: No respiratory distress, Clear bilaterally - Abdomen Abdomen: Soft, Non tender, Non distended - Derm Derm: Warm and dry - Extremities Extremities: No edema, No calf tenderness / cord - Neuro Neuro: Alert and oriented X 3 - Psych Psych: Normal mood, Normal affect Results - Vitals Vitals: Vital Signs - 24 hr 05/08/17 05/08/17 05/08/17 12:36 14:07 14:39 Temperature 36.7 C Heart Rate 114 H 116 H 117 H Respiratory 22 24 18 Rate Blood Pressure 115/56 L 138/80 H 141/97 H O2 Saturation 90 L 100 100 Oxygen O2 Source [Without Activity] Room air O2 Source Room air - Labs Labs: Laboratory Tests 05/08/17 05/08/17 05/08/17 13:45 13:45 13:45 WBC 12.8 H RBC 5.69 H Hgb 13.9 Hct 46.7 MCV 82.0 MCH 24.4 L MCHC 29.8 L RDW 17.4 H Plt Count 456 H MPV 8.2 Neut # 10.7 H Lymph # 1.8 Davidson # 0.3 Eos # 0.0 Baso # 0.1 Absolute Nucleated RBC 0.00 Nucleated RBC % 0.0 VBG pH VBG pCO2 VBG pO2 VBG HCO3 VBG Total CO2 VBG O2 Saturation VBG Base Excess Sodium 124 L Potassium 4.9 Chloride 86 L Carbon Dioxide 7 L* Anion Gap 31.0 H BUN 28 H Creatinine 1.0 Estimated GFR (MDRD) 63 L Glucose 616 H* Glycated Hemoglobin Estim Average Glucose Calcium 9.0 Phosphorus 5.6 H Magnesium 2.1 Total Bilirubin 2.0 H AST 25 ALT 38 Alkaline Phosphatase 166 H Total Protein 8.7 H Albumin 4.8 Globulin 3.9 Albumin/Globulin Ratio 1.2 Lipase 11 L HCG, Quant 2.15 Serum Ketones LARGE H 05/08/17 05/08/17 13:45 13:45 WBC RBC Hgb Hct MCV MCH MCHC RDW Plt Count MPV Neut # Lymph # Davidson # Eos # Baso # Absolute Nucleated RBC Nucleated RBC % VBG pH 7.044 L VBG pCO2 26.2 L VBG pO2 50.0 H VBG HCO3 7.0 L VBG Total CO2 7.8 L VBG O2 Saturation 73.0 VBG Base Excess -22.3 L Sodium Potassium Chloride Carbon Dioxide Anion Gap BUN Creatinine Estimated GFR (MDRD) Glucose Glycated Hemoglobin 12.2 H Estim Average Glucose 303 H Calcium Phosphorus Magnesium Total Bilirubin AST ALT Alkaline Phosphatase Total Protein Albumin Globulin Albumin/Globulin Ratio Lipase HCG, Quant Serum Ketones PD MEDICAL DECISION MAKING - ED course Complexity details: reviewed old records, reviewed results, re-evaluated patient , considered differential, d/w patient, d/w [employer] operations consultant ED course: Patient appears to be back in DKA. IV fluids given. Insulin drip started. I did place a 20-gauge IV in the right AC under ultrasound guidance. Good blood return. Patient will be admitted to the ICU. Discussed with Dr. Mosquera, hospitalist who accepts This document was made in part using voice recognition software. While efforts are made to proofread this document, sound alike and grammatical errors may occur. Departure - Departure Disposition: 66 [facility] DC/Xfer Clinical Impression: DKA, type 1 Qualifiers: Diabetes mellitus complication detail: without coma Qualified Code(s): E10.10 - Type 1 diabetes mellitus with ketoacidosis without coma Condition: Stable Discharge Date/Time: 05/08/17 16:11
[2017-05-08] MEDS ORDERED: INSULIN REGULAR HUMAN 100 UNIT/1 ML 10 ML MDV SUBQ STA (12:40)
[2017-05-08] MEDS ORDERED: PROMETHAZINE 25 MG/1 ML VIAL IM STA (13:03)
[2017-05-08] MEDS ORDERED: ACETAMINOPHEN 1,000 MG/100 ML 100 ML IV STA (13:52)
[2017-05-08 14:03] LABS: BASOPHILS # (AUTO) 0.1 10^3/uL (0.0-0.1); BASOPHILS % (AUTO) 0.7 %; EOSINOPHILS % (AUTO) 0.1 %; HGB - HEMOGLOBIN 13.9 g/dL (12.0-16.0); LYMPHOCYTES # (AUTO) 1.8 10^3/uL (1.5-3.5); MEAN CORPUSCULAR HEMOGLOBIN 24.4 pg (27.0-31.0); MEAN CORPUSCULAR HGB CONC 29.8 g/dL (32.0-36.0); MEAN PLATELET VOLUME 8.2 fL (7.9-10.8); MONOCYTES # (AUTO) 0.3 10^3/uL (0.0-1.0); NEUTROPHILS # (AUTO) 10.7 10^3/uL (1.5-6.6); NEUTROPHILS % (AUTO) 83.2 %; PLT - PLATELET COUNT 456 10^3/uL (130-450); RED BLOOD COUNT 5.69 10^6/uL (4.20-5.40); RED CELL DISTRIBUTION WIDTH 17.4 % (12.0-15.0); WHITE BLOOD COUNT 12.8 x10^3/uL (4.8-10.8)
[2017-05-08 14:08] LABS: KETONES, SERUM (ACETEST) LARGE (NEGATIVE); VBG BASE EXCESS -22.3 mmol/L (-2 - +2); VBG PCO2 26.2 mmHg (41-51); VBG PH 7.044 (7.31-7.41); VBG TOTAL CO2 7.8 mmol/L (24-29)
[2017-05-08] MEDS ORDERED: INSULIN REGULAR HUMAN 100 UNIT in SODIUM CHLORIDE 0.9% 100ML 99 ML IV STA (14:10)
[2017-05-08 14:19] LABS: ALBUMIN 4.8 g/dL (3.2-5.5); ALBUMIN/GLOBULIN RATIO 1.2 (1.0-2.2); ALKALINE PHOSPHATASE 166 IU/L (42-121); ALT ALANINE AMINOTRANSFERASE 38 IU/L (10-60); AST ASPARTATE AMINOTRANSFERASE 25 IU/L (10-42); BUN - BLOOD UREA NITROGEN 28 mg/dL (6-20); CHLORIDE 86 mmol/L (101-111); GFR - MDRD 63 (>89); GLUCOSE 616 mg/dL (70-100); LIPASE 11 U/L (22-51); MAGNESIUM 2.1 mg/dL (1.7-2.8); PHOSPHORUS 5.6 mg/dL (2.5-4.6); SODIUM 124 mmol/L (135-145); TOTAL PROTEIN 8.7 g/dL (6.7-8.2)
[2017-05-08 14:20] LABS: CARBON DIOXIDE - CO2 7 mmol/L (21-32)
[2017-05-08] MEDS ORDERED: INSULIN REGULAR HUMAN 100 UNIT in SODIUM CHLORIDE 0.9% 100ML 99 ML IV ONE (15:02)
--- NOTE | 2017-05-08 15:08 | HISTORY & PHYSICAL EXAMINATION ---
Chief Complaint - Chief Complaint Chief Complaint: Diabetic ketoacidosis History of Present Illness - Admitted From Admitted From:: The community - History Obtained From Records Reviewed: yes History obtained from: patient, Dr Shah, medical records Exam Limitations: the patient's mental status is impaired - History of Present Illness HPI Comment/Other: Patti Calero is a 36-year-old female who is well-known to the hospitalist service because of what seems to be weekly admissions for diabetic ketoacidosis. Ms. 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 She has been attended to by our social workers multiple occasions and yet continues in her homeless/drug abuse pattern , seemingly voluntarily. She will once again be admitted to the intensive care unit, placed on an insulin drip, and we will correct her electrolyte abnormalities. History - Past Medical History Cardiovascular: reports: Hypertension, High cholesterol, Peripheral Vascular Disease, [place] Respiratory: reports: None Neuro: reports: Peripheral neuropathy Endocrine/Autoimmune: reports: Type 1 diabetes GI: reports: Pancreatitis CLIENT TECHNICAL SUPPORT ASSOCIATE: reports: None : reports: None HEENT: reports: None Psych: reports: Depression, Anxiety, Panic attacks Musculoskeletal: reports: Fibromyalgia Derm: reports: None MRSA Hx?: No - Past Surgical History General: reports: Cholecystectomy HEENT: reports: Tonsil/Adenoidectomy - Family & Social History Family History: Father: , CAD, CVA/TIA, Hyperlipidemia, Hypertension, [place] Living arrangement: Homeless Living Situation: Unknown - Substance History Use: Uses substance without health or social issues: NONE Abuse: Recurrent use of substance despite neg consequences: Alcohol, Amphetamine Abuse Issues: Intoxication, Psychosis Dependence: Experiences withdrawal or developed tolerances: NONE, Alcohol, Amphetamine Dependence Issues: Delirium, Psychosis, Mood Disorder - POLST Patient has POLST: No POLST Status: Full Code Meds/Allgy - Home Medications Home Medications: Ambulatory Orders Medication Instructions Recorded Confirmed Amitriptyline [Elavil] 50 mg PO QPM 30 Days #30 tablet 02/03/17 04/30/17 Cilostazol [Pletal] 100 mg PO BID #30 tablet 03/21/17 04/30/17 DULoxetine [Cymbalta] 60 mg PO DAILY #90 capsule 03/21/17 04/30/17 Ferrous Sulfate 325 mg PO DAILY #30 tablet 03/21/17 04/30/17 HYDROmorphone [Dilaudid] 4 mg PO Q4H PRN #28 tablet 03/21/17 04/30/17 Insulin Aspart [NovoLOG] 7 unit SUBQ TIDWM #2 pen 03/21/17 04/30/17 Meloxicam [Mobic] 7.5 mg PO BID #60 tablet 03/21/17 04/30/17 Methocarbamol [Robaxin] 500 mg PO BID PRN #30 tablet 03/21/17 04/30/17 Metoprolol Succinate [Toprol Xl] 25 mg PO BID #60 tablet 03/21/17 04/30/17 Oxybutynin [Ditropan] 5 mg PO BID #60 tablet 03/21/17 04/30/17 cloNIDine [Catapres] 0.1 mg PO BID #60 tablet 03/21/17 04/30/17 clonazePAM [KlonoPIN] 1 mg PO BID PRN #30 tablet 03/21/17 04/30/17 diltiaZEM CD [Cardizem Cd] 120 mg PO DAILY #30 capsule 03/21/17 04/30/17 Gabapentin 600 mg PO TID #90 capsule 05/02/17 Insulin Aspart [NovoLOG] 12 unit SUBQ TIDWM #3 pen 05/02/17 Insulin Glargine [Lantus Solostar] 60 unit SUBQ DAILY #10 pen 05/02/17 [place], Disposable [Needle] 1 each MC TID #1 pkg 05/02/17 - Allergies Allergies/Adverse Reactions: Allergies Allergy/AdvReac Type Severity Reaction Status Date / Time codeine Allergy Hives Verified 03/14/17 13:38 hydrocodone Allergy Hives Verified 03/14/17 13:38 milk AdvReac Cramps Verified 03/14/17 13:38 nitrofurantoin AdvReac Headache Verified 03/14/17 13:38 [From Macrobid] PAPER TAPE AdvReac Unknown Uncoded 03/14/17 13:38 Review of Systems - Constitutional Constitutional: denies: Fatigue, Fever, Chills - Eyes Eyes: denies: Pain, Irritation, Blurred vision, Dipolpia - Ears, Nose & Throat Ears, Nose & Throat: denies: Ear pain, Hearing loss, Tinnitus, Nasal pain, Nasal discharge, Nosebleeds - Cardiovascular Cariovascular: denies: Irregular heart rate, Palpitations, Chest pain, Edema, Syncope - Respiratory Respiratory: reports: SOB with exertion. denies: Cough, Sputum production, Wheezing, Snoring, Hemoptysis, Orthopnea - Gastrointestinal Gastrointestinal: denies: Abdominal pain, Abdominal distention, Constipation, Diarrhea, Change in bowel habits, Rectal bleeding - Genitourinary Genitourinary: denies: Dysuria, Frequency, Urgency, Hematuria - Musculoskeletal Musculoskeletal: reports: Muscle aches, Muscle weakness. denies: Muscle pain, Back pain, Stiffness, Joint swelling - Integumentary Integumentary: denies: Rash, Pruritis, Lesions, Dryness - Neurological Neurological: reports: Memory problems. denies: General weakness, Focal weakness, Headache, Dizziness - Psychiatric Psychiatric: denies: Depression, Anxiety, Suicidal, Hallucinations - Endocrine Endocrine: denies: Polyuria, Polydypsia, Polyphagia - Hematologic/Lymphatic Hematologic/Lymphatic: denies: Anemia, Bruising, Petechiae, Lymphadenopathy - All Other Systems All Other Systems: reports: Reviewed and negative Exam - Vital Signs Reviewed Vital Signs: Yes Vital Signs: Vital Signs x48h Temp Pulse Resp BP Pulse Ox 05/08/17 14:39 117 H 18 141/97 H 100 05/08/17 14:07 116 H 24 138/80 H 100 05/08/17 12:36 36.7 C 114 H 22 115/56 L 90 L - Physical Exam General Appearance: positive: Alert, Mild distress, Anxious Eyes Bilateral: positive: Normal inspection, PERRL, EOMI, No lid inflammation, Conjunctivae nml, No scleral icterus ENT: positive: ENT inspection nml, Pharynx nml, No signs of dehydration Neck: positive: Nml inspection, Thyroid nml, No JVD, Trachea midline. negative : Thyromegaly Respiratory: positive: Chest non-tender, No respiratory distress, Breath sounds nml. negative: Wheezes, Rales, Rhonchi Cardiovascular: positive: Regular rate & rhythm, No murmur, No gallop Peripheral Pulses: positive: 1+ Abdomen: positive: Non-tender, No organomegaly, Nml bowel sounds, No distention. negative: Guarding, Rebound Back: positive: Nml inspection. negative: CVA tenderness (R), CVA tenderness (L ) Skin: positive: Color nml, No rash, Warm, Dry. negative: Cyanosis Extremities: positive: Non-tender, Full ROM, No pedal edema, Other (Ischemia noted to toes of the left foot). negative: Nml appearance Neurologic/Psychiatric: positive: Oriented x3, CN's nml (2-12), Motor nml, Sensation nml, Mood/affect nml Conclusion/Plan - Problem List (1) Diabetic acidosis without coma Conclusion/Plan: The patient has several electrolyte abnormalities in addition to her hyperglycemia. We will rehydrate her and replace her potassium and monitor her electrolytes over the next several days, correcting electrolytes as necessary. She will be placed in the intensive care unit on an insulin drip. Qualifiers: Diabetes mellitus type: type 2 Qualified Code(s): E11.10 - Type 2 diabetes mellitus with ketoacidosis without coma (2) Chronic pain disorder Conclusion/Plan: I will start the patient on low-dose methadone in place of her other opiates. (3) Homeless single person Conclusion/Plan: I will ask social workers to once again look at Ms. Calero's homeless situation and see if there are any other programs to offer her. 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 I will asked the social workers to meet with her in will follow any suggestions that they may have. - Lab Results Lab results reviewed: Yes Omar Bones: 05/08/17 13:45 05/08/17 13:45 Core Measures - Anticipated LOS I expect patient to be DC'd or transferred within 96 hours.: Yes - DVT/VTE - Prophylaxis VTE/DVT Device ordered at admit?: Yes
[2017-05-08 15:09] LABS: MUDS CUTOFF CONCENTRATIONS CUTOFF CONC BELOW:
[2017-05-08 15:12] LABS: BILIRUBIN,URINE NEGATIVE (NEGATIVE); GLUCOSE, URINE (UA) 500 mg/dL (NEGATIVE); KETONES,URINE (UA) >=80 mg/dL (NEGATIVE); LEUKOCYTE ESTERASE, URINE NEGATIVE (NEGATIVE); NITRITE,URINE NEGATIVE (NEGATIVE); OCCULT BLOOD,URINE SMALL (NEGATIVE); PH,URINE 5.5 PH (5.0-7.5); PROTEIN,URINE NEGATIVE (NEGATIVE); UROBILINOGEN,URINE 0.2 (NORMAL) E.U./dL (NORMAL)
[2017-05-08 15:23] LABS: CLARITY,URINE CLEAR (CLEAR)
[2017-05-08 15:24] LABS: BACTERIA,URINE Few /HPF (None Seen); RBC,URINE 0-5 /HPF (0-5); SQUAMOUS EPITHELIAL CELL,UR MOD Squamous (<= Few)
[2017-05-08 15:25] LABS: AMPHETAMINE SCREEN,URINE NEGATIVE (NEGATIVE); BENZODIAZEPINES SCREEN, URINE NEGATIVE (NEGATIVE); COCAINE SCREEN URINE NEGATIVE (NEGATIVE); METHADONE SCREEN, URINE NEGATIVE (NEGATIVE); METHAMPHETAMINES SCREEN, URINE POSITIVE (NEGATIVE); OPIATE SCREEN, URINE NEGATIVE (NEGATIVE); OXYCODONE SCREEN, URINE NEGATIVE (NEGATIVE); PROPOXYPHENE SCREEN, URINE NEGATIVE (NEGATIVE); TRICYCLIC ANTIDEPRESSANT,URINE NEGATIVE (NEGATIVE)
[2017-05-08 15:35] LABS: HB2 TOTAL 15.4 g/dL; HEMOGLOBIN A1C 1.69 g/dL; HEMOGLOBIN A1C % 12.2 % (4.6-6.2)
[2017-05-08] MEDS ORDERED: PROCHLORPERAZINE 10 MG/2 ML VIAL IVP PRN (16:27)
[2017-05-08] MEDS: SODIUM CHLORIDE FLUSH 0.9% 10 ML SYRINGE IVP SCH (16:36)
[2017-05-08 17:05] LABS: VBG BASE EXCESS -20.1 mmol/L (-2 - +2); VBG PCO2 21.8 mmHg (41-51); VBG PH 7.134 (7.31-7.41); VBG PO2 81.4 mmHg (25-47); VBG TOTAL CO2 7.8 mmol/L (24-29)
[2017-05-08 17:11] LABS: KETONES, SERUM (ACETEST) SMALL (NEGATIVE)
[2017-05-08] MEDS: oxyCODONE 5 MG TABLET PO PRN ×2 (17:23→21:47)
[2017-05-08 17:24] LABS: BUN - BLOOD UREA NITROGEN 26 mg/dL (6-20); CALCIUM 8.4 mg/dL (8.5-10.3); CHLORIDE 96 mmol/L (101-111); CREATININE 1.1 mg/dL (0.4-1.0); GFR - MDRD 57 (>89); GLUCOSE 333 mg/dL (70-100); MAGNESIUM 2.1 mg/dL (1.7-2.8); SODIUM 130 mmol/L (135-145)
[2017-05-08 17:26] LABS: CARBON DIOXIDE - CO2 8 mmol/L (21-32)
[2017-05-08] MEDS: clonazePAM 0.5 MG TABLET PO PRN (20:04)
[2017-05-08 20:29] LABS: KETONES, SERUM (ACETEST) MODERATE (NEGATIVE)
[2017-05-08 20:33] LABS: BUN - BLOOD UREA NITROGEN 26 mg/dL (6-20); CALCIUM 8.2 mg/dL (8.5-10.3); CARBON DIOXIDE - CO2 12 mmol/L (21-32); CHLORIDE 101 mmol/L (101-111); CREATININE 0.9 mg/dL (0.4-1.0); GFR - MDRD 71 (>89); GLUCOSE 174 mg/dL (70-100); MAGNESIUM 1.8 mg/dL (1.7-2.8); SODIUM 134 mmol/L (135-145)
[2017-05-08] MEDS: METOPROLOL SUCCINATE 25 MG TABLET PO SCH (21:05)
[2017-05-08] MEDS: cloNIDine 0.1 MG TABLET PO SCH (21:05)
[2017-05-08] MEDS: SODIUM CHLORIDE FLUSH 0.9% 10 ML SYRINGE IVP PRN (21:05)
[2017-05-08] MEDS: CILOSTAZOL 100 MG TABLET PO SCH (21:05)
[2017-05-08] MEDS: OXYBUTYNIN 5MG TABLET PO SCH (21:05)
[2017-05-08] MEDS: AMITRIPTYLINE 25 MG TABLET PO SCH (21:05)
[2017-05-08] MEDS: GABAPENTIN 300 MG CAPSULE PO SCH (21:46)
[2017-05-08] MEDS: DEXTROSE 5%-0.45% NACL 1,000 ML IV SCH (21:46)
[2017-05-09 00:49] LABS: KETONES, SERUM (ACETEST) SMALL (NEGATIVE)
[2017-05-09 00:52] LABS: GLUCOSE 114 mg/dL (70-100)
[2017-05-09] MEDS: SODIUM CHLORIDE FLUSH 0.9% 10 ML SYRINGE IVP SCH ×3 (01:25→16:47)
[2017-05-09 03:23] LABS: VBG PH 7.364 (7.31-7.41)
[2017-05-09] MEDS: DEXTROSE 5%-0.45% NACL 1,000 ML IV SCH ×2 (06:16→14:28)
[2017-05-09] MEDS: oxyCODONE 5 MG TABLET PO PRN ×3 (06:16→20:22)
[2017-05-09] MEDS: GABAPENTIN 300 MG CAPSULE PO SCH ×3 (06:16→21:34)
[2017-05-09 06:28] LABS: ALBUMIN 3.6 g/dL (3.2-5.5); CALCIUM 8.1 mg/dL (8.5-10.3); CREATININE 0.7 mg/dL (0.4-1.0); MAGNESIUM 1.9 mg/dL (1.7-2.8); PHOSPHORUS 2.4 mg/dL (2.5-4.6)
[2017-05-09] MEDS: CILOSTAZOL 100 MG TABLET PO SCH ×2 (09:52→21:35)
[2017-05-09] MEDS: FERROUS SULFATE 325 MG TABLET PO SCH (09:53)
[2017-05-09] MEDS: METOPROLOL SUCCINATE 25 MG TABLET PO SCH ×2 (09:53→21:35)
[2017-05-09] MEDS: cloNIDine 0.1 MG TABLET PO SCH ×2 (09:53→21:35)
[2017-05-09] MEDS: DULoxetine 20 MG CAPSULE PO SCH (09:54)
[2017-05-09] MEDS: diltiaZEM CD 120 MG CAPSULE PO SCH (09:54)
[2017-05-09] MEDS: OXYBUTYNIN 5MG TABLET PO SCH ×2 (09:56→21:35)
[2017-05-09] MEDS ORDERED: INSULIN REGULAR HUMAN 100 UNIT in SODIUM CHLORIDE 0.9% 100ML 99 ML IV SCH (10:00)
--- NOTE | 2017-05-09 12:14 | PROVIDER PROGRESS NOTE ---
Subjective - Prog Note Date Prog Note Date: 05/09/17 Prog Note Time: 12:10 - Subjective Pt reports feeling: Improved (Patient is feeling a little bit bettershe says she has more energy and her pain is under control. She denies any shortness of breath, fever or chills.) Current Medications - Current Medications Current Medications: Amitriptyline, [place] days old, clonazepam, clonidine, D5W, diltiazem, duloxetine , ferrous sulfate, gabapentin, ibuprofen, insulin, metoprolol,Oxybutynin, oxycodone, Compazine, sodium chloride, temazepam Objective - Vital Signs/Intake & Output Reviewed Vital Signs: Yes Vital Signs: Vital Signs Pulse Resp BP Pulse Ox 05/09/17 11:16 99 17 129/92 H 97 05/09/17 09:00 103 H 16 100/63 97 Intake & Output: Intake & Output 05/06/17 05/07/17 05/08/17 05/09/17 23:59 23:59 23:59 23:59 Intake Total 2708.264 1894.567 Output Total 1350 490 Balance 7611.245 0284.567 - Objective General Appearance: positive: No acute distress, Alert Eyes Bilateral: positive: Normal inspection, PERRL, EOMI, No lid inflammation, Conjunctivae nml, No scleral icterus ENT: positive: ENT inspection nml, Pharynx nml, No signs of dehydration Neck: positive: Nml inspection, Thyroid nml, No JVD, Trachea midline. negative : Thyromegaly Respiratory: positive: Chest non-tender, No respiratory distress, Breath sounds nml. negative: Wheezes, Rales, Rhonchi Cardiovascular: positive: Regular rate & rhythm, No murmur, No gallop Abdomen: positive: Non-tender, No organomegaly, Nml bowel sounds, No distention. negative: Guarding, Rebound Back: positive: Nml inspection. negative: CVA tenderness (R), CVA tenderness (L ) Skin: positive: Color nml, No rash, Warm, Dry. negative: Cyanosis Extremities: positive: Non-tender, Full ROM, No pedal edema, Other (Distal toes of left foot show ischemia) Neurologic/Psychiatric: positive: Oriented x3, CN's nml (2-12), Motor nml, Sensation nml, Mood/affect nml - Lab Results Fish Bones: 05/08/17 13:45 05/09/17 03:13 Other Labs: Lab Results x24hrs 05/09/17 05/09/17 05/09/17 Range/Units 11:43 10:36 09:51 VBG pH (7.31-7.41) VBG pCO2 (41-51) mmHg VBG pO2 (25-47) mmHg VBG HCO3 (23-28) mmol/L VBG Total CO2 (24-29) mmol/L VBG O2 Saturation (60-80) % VBG Base Excess (-2 - +2) mmol/L Ionized Calcium (1.15-1.33) mmol/L Sodium (135-145) mmol/L Potassium (3.5-5.0) mmol/L Chloride (101-111) mmol/L Carbon Dioxide (21-32) mmol/L Anion Gap (6-13) BUN (6-20) mg/dL Creatinine (0.4-1.0) mg/dL Estimated GFR (MDRD) (>89) Glucose (70-100) mg/dL POC Whole Bld Glucose 107 H 88 (70 - 100) mg/dL Calcium (8.5-10.3) mg/dL Phosphorus (2.5-4.6) mg/dL Magnesium (1.7-2.8) mg/dL Troponin I (<0.49) ng/mL Albumin (3.2-5.5) g/dL Urine Color Urine Clarity (CLEAR) Urine pH (5.0-7.5) PH Ur Specific [employer] (1.002-1.030) Urine Protein (NEGATIVE) mg/dL Urine Glucose (UA) (NEGATIVE) mg/dL Urine Ketones (NEGATIVE) mg/dL Urine Occult Blood (NEGATIVE) Urine Nitrite (NEGATIVE) Urine Bilirubin (NEGATIVE) Urine Urobilinogen (NORMAL) E.U./dL Ur Leukocyte Esterase (NEGATIVE) Urine RBC (0-5) /HPF Urine WBC (0-5) /HPF Ur Squamous Epith Cells (<= Few) Urine Bacteria (None Seen) /HPF Ur Microscopic Review Urine Culture Comments Urine Opiates Screen (NEGATIVE) Ur Oxycodone Screen (NEGATIVE) Urine Methadone Screen (NEGATIVE) Ur Propoxyphene Screen (NEGATIVE) Ur Barbiturates Screen (NEGATIVE) Ur Tricyclics Screen (NEGATIVE) Ur Phencyclidine Scrn (NEGATIVE) Ur Amphetamine Screen (NEGATIVE) U Methamphetamines Scrn (NEGATIVE) U Benzodiazepines Scrn (NEGATIVE) Urine Cocaine Screen (NEGATIVE) U Cannabinoids Screen (NEGATIVE) Serum Ketones SMALL H (NEGATIVE) 05/09/17 05/09/17 05/09/17 Range/Units 08:49 08:37 07:19 VBG pH (7.31-7.41) VBG pCO2 (41-51) mmHg VBG pO2 (25-47) mmHg VBG HCO3 (23-28) mmol/L VBG Total CO2 (24-29) mmol/L VBG O2 Saturation (60-80) % VBG Base Excess (-2 - +2) mmol/L Ionized Calcium (1.15-1.33) mmol/L Sodium (135-145) mmol/L Potassium (3.5-5.0) mmol/L Chloride (101-111) mmol/L Carbon Dioxide (21-32) mmol/L Anion Gap (6-13) BUN (6-20) mg/dL Creatinine (0.4-1.0) mg/dL Estimated GFR (MDRD) (>89) Glucose (70-100) mg/dL POC Whole Bld Glucose 107 H 99 (70 - 100) mg/dL Calcium (8.5-10.3) mg/dL Phosphorus (2.5-4.6) mg/dL Magnesium (1.7-2.8) mg/dL Troponin I (<0.49) ng/mL Albumin (3.2-5.5) g/dL Urine Color Urine Clarity (CLEAR) Urine pH (5.0-7.5) PH Ur Specific [employer] (1.002-1.030) Urine Protein (NEGATIVE) mg/dL Urine Glucose (UA) (NEGATIVE) mg/dL Urine Ketones (NEGATIVE) mg/dL Urine Occult Blood (NEGATIVE) Urine Nitrite (NEGATIVE) Urine Bilirubin (NEGATIVE) Urine Urobilinogen (NORMAL) E.U./dL Ur Leukocyte Esterase (NEGATIVE) Urine RBC (0-5) /HPF Urine WBC (0-5) /HPF Ur Squamous Epith Cells (<= Few) Urine Bacteria (None Seen) /HPF Ur Microscopic Review Urine Culture Comments Urine Opiates Screen (NEGATIVE) Ur Oxycodone Screen (NEGATIVE) Urine Methadone Screen (NEGATIVE) Ur Propoxyphene Screen (NEGATIVE) Ur Barbiturates Screen (NEGATIVE) Ur Tricyclics Screen (NEGATIVE) Ur Phencyclidine Scrn (NEGATIVE) Ur Amphetamine Screen (NEGATIVE) U Methamphetamines Scrn (NEGATIVE) U Benzodiazepines Scrn (NEGATIVE) Urine Cocaine Screen (NEGATIVE) U Cannabinoids Screen (NEGATIVE) Serum Ketones SMALL H (NEGATIVE) 05/09/17 05/09/17 05/09/17 Range/Units 06:07 05:06 03:13 VBG pH 7.364 (7.31-7.41) VBG pCO2 (41-51) mmHg VBG pO2 (25-47) mmHg VBG HCO3 (23-28) mmol/L VBG Total CO2 (24-29) mmol/L VBG O2 Saturation (60-80) % VBG Base Excess (-2 - +2) mmol/L Ionized Calcium 1.07 L (1.15-1.33) mmol/L Sodium (135-145) mmol/L Potassium (3.5-5.0) mmol/L Chloride (101-111) mmol/L Carbon Dioxide (21-32) mmol/L Anion Gap (6-13) BUN (6-20) mg/dL Creatinine (0.4-1.0) mg/dL Estimated GFR (MDRD) (>89) Glucose (70-100) mg/dL POC Whole Bld Glucose 89 (70 - 100) mg/dL Calcium (8.5-10.3) mg/dL Phosphorus (2.5-4.6) mg/dL Magnesium (1.7-2.8) mg/dL Troponin I (<0.49) ng/mL Albumin (3.2-5.5) g/dL Urine Color Urine Clarity (CLEAR) Urine pH (5.0-7.5) PH Ur Specific [employer] (1.002-1.030) Urine Protein (NEGATIVE) mg/dL Urine Glucose (UA) (NEGATIVE) mg/dL Urine Ketones (NEGATIVE) mg/dL Urine Occult Blood (NEGATIVE) Urine Nitrite (NEGATIVE) Urine Bilirubin (NEGATIVE) Urine Urobilinogen (NORMAL) E.U./dL Ur Leukocyte Esterase (NEGATIVE) Urine RBC (0-5) /HPF Urine WBC (0-5) /HPF Ur Squamous Epith Cells (<= Few) Urine Bacteria (None Seen) /HPF Ur Microscopic Review Urine Culture Comments Urine Opiates Screen (NEGATIVE) Ur Oxycodone Screen (NEGATIVE) Urine Methadone Screen (NEGATIVE) Ur Propoxyphene Screen (NEGATIVE) Ur Barbiturates Screen (NEGATIVE) Ur Tricyclics Screen (NEGATIVE) Ur Phencyclidine Scrn (NEGATIVE) Ur Amphetamine Screen (NEGATIVE) U Methamphetamines Scrn (NEGATIVE) U Benzodiazepines Scrn (NEGATIVE) Urine Cocaine Screen (NEGATIVE) U Cannabinoids Screen (NEGATIVE) Serum Ketones SMALL H (NEGATIVE) 05/09/17 05/09/17 05/09/17 Range/Units 03:13 03:13 03:13 VBG pH (7.31-7.41) VBG pCO2 (41-51) mmHg VBG pO2 (25-47) mmHg VBG HCO3 (23-28) mmol/L VBG Total CO2 (24-29) mmol/L VBG O2 Saturation (60-80) % VBG Base Excess (-2 - +2) mmol/L Ionized Calcium (1.15-1.33) mmol/L Sodium 135 (135-145) mmol/L Potassium 3.5 (3.5-5.0) mmol/L Chloride 104 (101-111) mmol/L Carbon Dioxide 19 L (21-32) mmol/L Anion Gap 12.0 (6-13) BUN 27 H (6-20) mg/dL Creatinine 0.7 (0.4-1.0) mg/dL Estimated GFR (MDRD) 95 (>89) Glucose 81 (70-100) mg/dL POC Whole Bld Glucose (70 - 100) mg/dL Calcium 8.1 L (8.5-10.3) mg/dL Phosphorus 2.4 L (2.5-4.6) mg/dL Magnesium 1.9 (1.7-2.8) mg/dL Troponin I < 0.04 (<0.49) ng/mL Albumin 3.6 (3.2-5.5) g/dL Urine Color Urine Clarity (CLEAR) Urine pH (5.0-7.5) PH Ur Specific [employer] (1.002-1.030) Urine Protein (NEGATIVE) mg/dL Urine Glucose (UA) (NEGATIVE) mg/dL Urine Ketones (NEGATIVE) mg/dL Urine Occult Blood (NEGATIVE) Urine Nitrite (NEGATIVE) Urine Bilirubin (NEGATIVE) Urine Urobilinogen (NORMAL) E.U./dL Ur Leukocyte Esterase (NEGATIVE) Urine RBC (0-5) /HPF Urine WBC (0-5) /HPF Ur Squamous Epith Cells (<= Few) Urine Bacteria (None Seen) /HPF Ur Microscopic Review Urine Culture Comments Urine Opiates Screen (NEGATIVE) Ur Oxycodone Screen (NEGATIVE) Urine Methadone Screen (NEGATIVE) Ur Propoxyphene Screen (NEGATIVE) Ur Barbiturates Screen (NEGATIVE) Ur Tricyclics Screen (NEGATIVE) Ur Phencyclidine Scrn (NEGATIVE) Ur Amphetamine Screen (NEGATIVE) U Methamphetamines Scrn (NEGATIVE) U Benzodiazepines Scrn (NEGATIVE) Urine Cocaine Screen (NEGATIVE) U Cannabinoids Screen (NEGATIVE) Serum Ketones SMALL H (NEGATIVE) 05/09/17 05/08/17 05/08/17 Range/Units 00:38 23:00 23:00 VBG pH (7.31-7.41) VBG pCO2 (41-51) mmHg VBG pO2 (25-47) mmHg VBG HCO3 (23-28) mmol/L VBG Total CO2 (24-29) mmol/L VBG O2 Saturation (60-80) % VBG Base Excess (-2 - +2) mmol/L Ionized Calcium (1.15-1.33) mmol/L Sodium (135-145) mmol/L Potassium (3.5-5.0) mmol/L Chloride (101-111) mmol/L Carbon Dioxide (21-32) mmol/L Anion Gap (6-13) BUN (6-20) mg/dL Creatinine (0.4-1.0) mg/dL Estimated GFR (MDRD) (>89) Glucose 114 H (70-100) mg/dL POC Whole Bld Glucose (70 - 100) mg/dL Calcium (8.5-10.3) mg/dL Phosphorus (2.5-4.6) mg/dL Magnesium (1.7-2.8) mg/dL Troponin I < 0.04 (<0.49) ng/mL Albumin (3.2-5.5) g/dL Urine Color Urine Clarity (CLEAR) Urine pH (5.0-7.5) PH Ur Specific [employer] (1.002-1.030) Urine Protein (NEGATIVE) mg/dL Urine Glucose (UA) (NEGATIVE) mg/dL Urine Ketones (NEGATIVE) mg/dL Urine Occult Blood (NEGATIVE) Urine Nitrite (NEGATIVE) Urine Bilirubin (NEGATIVE) Urine Urobilinogen (NORMAL) E.U./dL Ur Leukocyte Esterase (NEGATIVE) Urine RBC (0-5) /HPF Urine WBC (0-5) /HPF Ur Squamous Epith Cells (<= Few) Urine Bacteria (None Seen) /HPF Ur Microscopic Review Urine Culture Comments Urine Opiates Screen (NEGATIVE) Ur Oxycodone Screen (NEGATIVE) Urine Methadone Screen (NEGATIVE) Ur Propoxyphene Screen (NEGATIVE) Ur Barbiturates Screen (NEGATIVE) Ur Tricyclics Screen (NEGATIVE) Ur Phencyclidine Scrn (NEGATIVE) Ur Amphetamine Screen (NEGATIVE) U Methamphetamines Scrn (NEGATIVE) U Benzodiazepines Scrn (NEGATIVE) Urine Cocaine Screen (NEGATIVE) U Cannabinoids Screen (NEGATIVE) Serum Ketones SMALL H SMALL H (NEGATIVE) 05/08/17 05/08/17 05/08/17 Range/Units 22:53 22:13 20:57 VBG pH (7.31-7.41) VBG pCO2 (41-51) mmHg VBG pO2 (25-47) mmHg VBG HCO3 (23-28) mmol/L VBG Total CO2 (24-29) mmol/L VBG O2 Saturation (60-80) % VBG Base Excess (-2 - +2) mmol/L Ionized Calcium (1.15-1.33) mmol/L Sodium (135-145) mmol/L Potassium (3.5-5.0) mmol/L Chloride (101-111) mmol/L Carbon Dioxide (21-32) mmol/L Anion Gap (6-13) BUN (6-20) mg/dL Creatinine (0.4-1.0) mg/dL Estimated GFR (MDRD) (>89) Glucose (70-100) mg/dL POC Whole Bld Glucose 115 H 133 H 145 H (70 - 100) mg/dL Calcium (8.5-10.3) mg/dL Phosphorus (2.5-4.6) mg/dL Magnesium (1.7-2.8) mg/dL Troponin I (<0.49) ng/mL Albumin (3.2-5.5) g/dL Urine Color Urine Clarity (CLEAR) Urine pH (5.0-7.5) PH Ur Specific [employer] (1.002-1.030) Urine Protein (NEGATIVE) mg/dL Urine Glucose (UA) (NEGATIVE) mg/dL Urine Ketones (NEGATIVE) mg/dL Urine Occult Blood (NEGATIVE) Urine Nitrite (NEGATIVE) Urine Bilirubin (NEGATIVE) Urine Urobilinogen (NORMAL) E.U./dL Ur Leukocyte Esterase (NEGATIVE) Urine RBC (0-5) /HPF Urine WBC (0-5) /HPF Ur Squamous Epith Cells (<= Few) Urine Bacteria (None Seen) /HPF Ur Microscopic Review Urine Culture Comments Urine Opiates Screen (NEGATIVE) Ur Oxycodone Screen (NEGATIVE) Urine Methadone Screen (NEGATIVE) Ur Propoxyphene Screen (NEGATIVE) Ur Barbiturates Screen (NEGATIVE) Ur Tricyclics Screen (NEGATIVE) Ur Phencyclidine Scrn (NEGATIVE) Ur Amphetamine Screen (NEGATIVE) U Methamphetamines Scrn (NEGATIVE) U Benzodiazepines Scrn (NEGATIVE) Urine Cocaine Screen (NEGATIVE) U Cannabinoids Screen (NEGATIVE) Serum Ketones (NEGATIVE) 05/08/17 05/08/17 05/08/17 Range/Units 20:13 20:04 19:07 VBG pH (7.31-7.41) VBG pCO2 (41-51) mmHg VBG pO2 (25-47) mmHg VBG HCO3 (23-28) mmol/L VBG Total CO2 (24-29) mmol/L VBG O2 Saturation (60-80) % VBG Base Excess (-2 - +2) mmol/L Ionized Calcium (1.15-1.33) mmol/L Sodium 134 L (135-145) mmol/L Potassium 4.2 (3.5-5.0) mmol/L Chloride 101 (101-111) mmol/L Carbon Dioxide 12 L* (21-32) mmol/L Anion Gap (6-13) BUN 26 H (6-20) mg/dL Creatinine 0.9 (0.4-1.0) mg/dL Estimated GFR (MDRD) 71 L (>89) Glucose 174 H (70-100) mg/dL POC Whole Bld Glucose 253 H 222 H (70 - 100) mg/dL Calcium 8.2 L (8.5-10.3) mg/dL Phosphorus (2.5-4.6) mg/dL Magnesium 1.8 (1.7-2.8) mg/dL Troponin I (<0.49) ng/mL Albumin (3.2-5.5) g/dL Urine Color Urine Clarity (CLEAR) Urine pH (5.0-7.5) PH Ur Specific [employer] (1.002-1.030) Urine Protein (NEGATIVE) mg/dL Urine Glucose (UA) (NEGATIVE) mg/dL Urine Ketones (NEGATIVE) mg/dL Urine Occult Blood (NEGATIVE) Urine Nitrite (NEGATIVE) Urine Bilirubin (NEGATIVE) Urine Urobilinogen (NORMAL) E.U./dL Ur Leukocyte Esterase (NEGATIVE) Urine RBC (0-5) /HPF Urine WBC (0-5) /HPF Ur Squamous Epith Cells (<= Few) Urine Bacteria (None Seen) /HPF Ur Microscopic Review Urine Culture Comments Urine Opiates Screen (NEGATIVE) Ur Oxycodone Screen (NEGATIVE) Urine Methadone Screen (NEGATIVE) Ur Propoxyphene Screen (NEGATIVE) Ur Barbiturates Screen (NEGATIVE) Ur Tricyclics Screen (NEGATIVE) Ur Phencyclidine Scrn (NEGATIVE) Ur Amphetamine Screen (NEGATIVE) U Methamphetamines Scrn (NEGATIVE) U Benzodiazepines Scrn (NEGATIVE) Urine Cocaine Screen (NEGATIVE) U Cannabinoids Screen (NEGATIVE) Serum Ketones MODERATE H (NEGATIVE) 05/08/17 05/08/17 05/08/17 Range/Units 18:09 18:03 17:00 VBG pH (7.31-7.41) VBG pCO2 (41-51) mmHg VBG pO2 (25-47) mmHg VBG HCO3 (23-28) mmol/L VBG Total CO2 (24-29) mmol/L VBG O2 Saturation (60-80) % VBG Base Excess (-2 - +2) mmol/L Ionized Calcium (1.15-1.33) mmol/L Sodium 130 L (135-145) mmol/L Potassium 4.2 (3.5-5.0) mmol/L Chloride 96 L (101-111) mmol/L Carbon Dioxide 8 L* (21-32) mmol/L Anion Gap 26.0 H (6-13) BUN 26 H (6-20) mg/dL Creatinine 1.1 H (0.4-1.0) mg/dL Estimated GFR (MDRD) 57 L (>89) Glucose 261 H 333 H (70-100) mg/dL POC Whole Bld Glucose 268 H (70 - 100) mg/dL Calcium 8.4 L (8.5-10.3) mg/dL Phosphorus (2.5-4.6) mg/dL Magnesium 2.1 (1.7-2.8) mg/dL Troponin I (<0.49) ng/mL Albumin (3.2-5.5) g/dL Urine Color Urine Clarity (CLEAR) Urine pH (5.0-7.5) PH Ur Specific [employer] (1.002-1.030) Urine Protein (NEGATIVE) mg/dL Urine Glucose (UA) (NEGATIVE) mg/dL Urine Ketones (NEGATIVE) mg/dL Urine Occult Blood (NEGATIVE) Urine Nitrite (NEGATIVE) Urine Bilirubin (NEGATIVE) Urine Urobilinogen (NORMAL) E.U./dL Ur Leukocyte Esterase (NEGATIVE) Urine RBC (0-5) /HPF Urine WBC (0-5) /HPF Ur Squamous Epith Cells (<= Few) Urine Bacteria (None Seen) /HPF Ur Microscopic Review Urine Culture Comments Urine Opiates Screen (NEGATIVE) Ur Oxycodone Screen (NEGATIVE) Urine Methadone Screen (NEGATIVE) Ur Propoxyphene Screen (NEGATIVE) Ur Barbiturates Screen (NEGATIVE) Ur Tricyclics Screen (NEGATIVE) Ur Phencyclidine Scrn (NEGATIVE) Ur Amphetamine Screen (NEGATIVE) U Methamphetamines Scrn (NEGATIVE) U Benzodiazepines Scrn (NEGATIVE) Urine Cocaine Screen (NEGATIVE) U Cannabinoids Screen (NEGATIVE) Serum Ketones SMALL H (NEGATIVE) 05/08/17 05/08/17 05/08/17 Range/Units 17:00 17:00 16:25 VBG pH 7.134 L (7.31-7.41) VBG pCO2 21.8 L (41-51) mmHg VBG pO2 81.4 H (25-47) mmHg VBG HCO3 7.2 L (23-28) mmol/L VBG Total CO2 7.8 L (24-29) mmol/L VBG O2 Saturation 93.6 H (60-80) % VBG Base Excess -20.1 L (-2 - +2) mmol/L Ionized Calcium (1.15-1.33) mmol/L Sodium (135-145) mmol/L Potassium (3.5-5.0) mmol/L Chloride (101-111) mmol/L Carbon Dioxide (21-32) mmol/L Anion Gap (6-13) BUN (6-20) mg/dL Creatinine (0.4-1.0) mg/dL Estimated GFR (MDRD) (>89) Glucose (70-100) mg/dL POC Whole Bld Glucose 440 H (70 - 100) mg/dL Calcium (8.5-10.3) mg/dL Phosphorus (2.5-4.6) mg/dL Magnesium (1.7-2.8) mg/dL Troponin I < 0.04 (<0.49) ng/mL Albumin (3.2-5.5) g/dL Urine Color Urine Clarity (CLEAR) Urine pH (5.0-7.5) PH Ur Specific [employer] (1.002-1.030) Urine Protein (NEGATIVE) mg/dL Urine Glucose (UA) (NEGATIVE) mg/dL Urine Ketones (NEGATIVE) mg/dL Urine Occult Blood (NEGATIVE) Urine Nitrite (NEGATIVE) Urine Bilirubin (NEGATIVE) Urine Urobilinogen (NORMAL) E.U./dL Ur Leukocyte Esterase (NEGATIVE) Urine RBC (0-5) /HPF Urine WBC (0-5) /HPF Ur Squamous Epith Cells (<= Few) Urine Bacteria (None Seen) /HPF Ur Microscopic Review Urine Culture Comments Urine Opiates Screen (NEGATIVE) Ur Oxycodone Screen (NEGATIVE) Urine Methadone Screen (NEGATIVE) Ur Propoxyphene Screen (NEGATIVE) Ur Barbiturates Screen (NEGATIVE) Ur Tricyclics Screen (NEGATIVE) Ur Phencyclidine Scrn (NEGATIVE) Ur Amphetamine Screen (NEGATIVE) U Methamphetamines Scrn (NEGATIVE) U Benzodiazepines Scrn (NEGATIVE) Urine Cocaine Screen (NEGATIVE) U Cannabinoids Screen (NEGATIVE) Serum Ketones (NEGATIVE) 05/08/17 05/08/17 Range/Units 15:03 15:03 VBG pH (7.31-7.41) VBG pCO2 (41-51) mmHg VBG pO2 (25-47) mmHg VBG HCO3 (23-28) mmol/L VBG Total CO2 (24-29) mmol/L VBG O2 Saturation (60-80) % VBG Base Excess (-2 - +2) mmol/L Ionized Calcium (1.15-1.33) mmol/L Sodium (135-145) mmol/L Potassium (3.5-5.0) mmol/L Chloride (101-111) mmol/L Carbon Dioxide (21-32) mmol/L Anion Gap (6-13) BUN (6-20) mg/dL Creatinine (0.4-1.0) mg/dL Estimated GFR (MDRD) (>89) Glucose (70-100) mg/dL POC Whole Bld Glucose (70 - 100) mg/dL Calcium (8.5-10.3) mg/dL Phosphorus (2.5-4.6) mg/dL Magnesium (1.7-2.8) mg/dL Troponin I (<0.49) ng/mL Albumin (3.2-5.5) g/dL Urine Color YELLOW Urine Clarity CLEAR (CLEAR) Urine pH 5.5 (5.0-7.5) PH Ur Specific [employer] 1.025 (1.002-1.030) Urine Protein NEGATIVE (NEGATIVE) mg/dL Urine Glucose (UA) 500 H (NEGATIVE) mg/dL Urine Ketones >=80 H (NEGATIVE) mg/dL Urine Occult Blood SMALL H (NEGATIVE) Urine Nitrite NEGATIVE (NEGATIVE) Urine Bilirubin NEGATIVE (NEGATIVE) Urine Urobilinogen 0.2 (NORMAL) (NORMAL) E.U./dL Ur Leukocyte Esterase NEGATIVE (NEGATIVE) Urine RBC 0-5 (0-5) /HPF Urine WBC 0-3 (0-5) /HPF Ur Squamous Epith Cells MOD Squamous H (<= Few) Urine Bacteria Few (None Seen) /HPF Ur Microscopic Review INDICATED Urine Culture Comments NOT INDICATED Urine Opiates Screen NEGATIVE (NEGATIVE) Ur Oxycodone Screen NEGATIVE (NEGATIVE) Urine Methadone Screen NEGATIVE (NEGATIVE) Ur Propoxyphene Screen NEGATIVE (NEGATIVE) Ur Barbiturates Screen NEGATIVE (NEGATIVE) Ur Tricyclics Screen NEGATIVE (NEGATIVE) Ur Phencyclidine Scrn NEGATIVE (NEGATIVE) Ur Amphetamine Screen NEGATIVE (NEGATIVE) U Methamphetamines Scrn POSITIVE H (NEGATIVE) U Benzodiazepines Scrn NEGATIVE (NEGATIVE) Urine Cocaine Screen NEGATIVE (NEGATIVE) U Cannabinoids Screen NEGATIVE (NEGATIVE) Serum Ketones (NEGATIVE) Assessment/Plan - Problem List (1) Diabetic acidosis without coma Impression: The patient is now off of the insulin drip and on a sliding scale. She is eating a regular diet. Continue present care. Patient may come out of the intensive care unit when her serum no longer shows ketones. Qualifiers: Diabetes mellitus type: type 2 Qualified Code(s): E11.10 - Type 2 diabetes mellitus with ketoacidosis without coma (2) Chronic pain disorder Impression: I will start the patient on low-dose methadone in place of her other opiates. (3) Homeless single person Impression: I will ask social workers to once again look at Ms. Calero's homeless situation and see if there are any other programs to offer her. 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 I will asked the social workers to meet with her in will follow any suggestions that they may have.
[2017-05-09 12:54] LABS: HB2 TOTAL 11.9 g/dL; HEMOGLOBIN A1C 1.37 g/dL; HEMOGLOBIN A1C % 12.7 % (4.6-6.2)
[2017-05-09] MEDS: D5.45NS W/20 MEQ KCL 1,000 ML IV SCH (16:33)
[2017-05-09] MEDS: IBUPROFEN 600 MG TABLET PO PRN (16:46)
[2017-05-09] MEDS ORDERED: INSULIN ASPART 300 UNIT/3 ML PEN SUBQ SCH (17:00)
[2017-05-09] MEDS ORDERED: INSULIN REGULAR HUMAN 100 UNIT/1 ML 10 ML MDV SUBQ ONE (18:18)
[2017-05-09] MEDS ORDERED: INSULIN REGULAR HUMAN 100 UNIT/1 ML 10 ML MDV SUBQ SCH (19:15)
[2017-05-09] MEDS: AMITRIPTYLINE 25 MG TABLET PO SCH (21:35)
[2017-05-09] MEDS: INSULIN ASPART 300 UNIT/3 ML PEN SUBQ SCH (22:11)
[2017-05-09] MEDS: INSULIN GLARGINE 300 UNIT/3 ML PEN SUBQ SCH (22:41)
[2017-05-10] MEDS: D5.45NS W/20 MEQ KCL 1,000 ML IV SCH ×4 (01:53→19:32)
[2017-05-10] MEDS: SODIUM CHLORIDE FLUSH 0.9% 10 ML SYRINGE IVP SCH ×3 (01:54→17:00)
[2017-05-10 05:37] LABS: HGB - HEMOGLOBIN 9.9 g/dL (12.0-16.0); MEAN CORPUSCULAR HGB CONC 31.3 g/dL (32.0-36.0); MEAN CORPUSCULAR VOLUME 76.5 fL (81.0-99.0); MEAN PLATELET VOLUME 7.1 fL (7.9-10.8); RED BLOOD COUNT 4.12 10^6/uL (4.20-5.40); RED CELL DISTRIBUTION WIDTH 17.4 % (12.0-15.0); WHITE BLOOD COUNT 4.4 x10^3/uL (4.8-10.8)
[2017-05-10 05:43] LABS: VBG PH 7.338 (7.31-7.41)
[2017-05-10 05:54] LABS: ALBUMIN 2.9 g/dL (3.2-5.5); CALCIUM 7.8 mg/dL (8.5-10.3); CREATININE 0.5 mg/dL (0.4-1.0); MAGNESIUM 1.8 mg/dL (1.7-2.8); PHOSPHORUS 1.9 mg/dL (2.5-4.6)
[2017-05-10] MEDS: GABAPENTIN 300 MG CAPSULE PO SCH ×3 (06:47→21:10)
[2017-05-10] MEDS ORDERED: INSULIN ASPART 300 UNIT/3 ML PEN SUBQ SCH (08:00)
[2017-05-10] MEDS: OXYBUTYNIN 5MG TABLET PO SCH ×2 (08:22→21:10)
[2017-05-10] MEDS: diltiaZEM CD 120 MG CAPSULE PO SCH (08:22)
[2017-05-10] MEDS: NEUTRA-PHOS 250 MG TABLET PO SCH ×2 (08:22→10:38)
[2017-05-10] MEDS: CILOSTAZOL 100 MG TABLET PO SCH ×2 (08:22→21:10)
[2017-05-10] MEDS: DULoxetine 20 MG CAPSULE PO SCH (08:22)
[2017-05-10] MEDS: cloNIDine 0.1 MG TABLET PO SCH ×2 (08:23→21:10)
[2017-05-10] MEDS: FERROUS SULFATE 325 MG TABLET PO SCH (08:23)
[2017-05-10] MEDS: METOPROLOL SUCCINATE 25 MG TABLET PO SCH ×2 (08:23→21:10)
[2017-05-10] MEDS: oxyCODONE 5 MG TABLET PO PRN ×4 (08:24→21:10)
[2017-05-10] MEDS: INSULIN ASPART 300 UNIT/3 ML PEN SUBQ SCH ×4 (08:26→21:09)
[2017-05-10] MEDS: INSULIN GLARGINE 300 UNIT/3 ML PEN SUBQ SCH ×2 (08:27→21:09)
[2017-05-10] MEDS: clonazePAM 0.5 MG TABLET PO PRN (10:38)
[2017-05-10] MEDS: IBUPROFEN 600 MG TABLET PO PRN ×2 (10:48→20:06)
[2017-05-10] MEDS: INSULIN REGULAR HUMAN 100 UNIT/1 ML 10 ML MDV SUBQ PRN ×2 (12:52→17:26)
--- NOTE | 2017-05-10 17:29 | PROVIDER PROGRESS NOTE ---
Subjective - Prog Note Date Prog Note Date: 05/10/17 Prog Note Time: 15:50 - Subjective Pt reports feeling: Improved Subjective: The patient says she slept well last night. She denies any fever or chills, new pain or nausea or vomiting. She is eating well. Current Medications - Current Medications Current Medications: Amitriptyline, Yves days old, clonazepam, clonidine, D5W, diltiazem, duloxetine , ferrous sulfate, gabapentin, ibuprofen, insulin, metoprolol,Oxybutynin, oxycodone, Compazine, sodium chloride, temazepam Objective - Vital Signs/Intake & Output Reviewed Vital Signs: Yes Vital Signs: Vital Signs Temp Pulse Resp BP Pulse Ox 05/10/17 17:00 103 H 17 98/64 99 05/10/17 16:00 36.8 C 103 H 20 102/70 92 05/10/17 15:00 100 21 93/56 L 100 05/10/17 14:23 94 16 93/56 L 94 Intake & Output: Intake & Output 05/07/17 05/08/17 05/09/17 05/10/17 23:59 23:59 23:59 23:59 Intake Total 2708.264 4429.736 4110.000 Output Total 1350 777 Balance 4522.093 9858.736 4110.000 - Objective General Appearance: positive: No acute distress, Alert, Anxious Eyes Bilateral: positive: Normal inspection, PERRL, EOMI, No lid inflammation, Conjunctivae nml, No scleral icterus ENT: positive: ENT inspection nml, Pharynx nml, No signs of dehydration Neck: positive: Nml inspection, Thyroid nml, No JVD, Trachea midline. negative : Thyromegaly Respiratory: positive: Chest non-tender, No respiratory distress, Breath sounds nml. negative: Wheezes, Rales, Rhonchi Cardiovascular: positive: Regular rate & rhythm, No murmur, No gallop Abdomen: positive: Non-tender, No organomegaly, Nml bowel sounds, No distention. negative: Guarding, Rebound Back: positive: Nml inspection. negative: CVA tenderness (R), CVA tenderness (L ) Skin: positive: Color nml, No rash, Warm, Dry. negative: Cyanosis Extremities: positive: Non-tender, Full ROM, Nml appearance, No pedal edema, Other (Distal toes in various stages of healing.) Neurologic/Psychiatric: positive: Oriented x3, CN's nml (2-12), Motor nml, Sensation nml, Mood/affect nml - Lab Results Fish Bones: 05/10/17 05:14 05/10/17 05:14 Other Labs: Lab Results x24hrs 05/10/17 05/10/17 05/10/17 Range/Units 16:52 12:21 08:02 WBC (4.8-10.8) x10^3/uL RBC (4.20-5.40) 10^6/uL Hgb (12.0-16.0) g/dL Hct (37.0-47.0) % MCV (81.0-99.0) fL MCH (27.0-31.0) pg MCHC (32.0-36.0) g/dL RDW (12.0-15.0) % Plt Count (130-450) 10^3/uL MPV (7.9-10.8) fL VBG pH (7.31-7.41) Ionized Calcium (1.15-1.33) mmol/L Sodium (135-145) mmol/L Potassium (3.5-5.0) mmol/L Chloride (101-111) mmol/L Carbon Dioxide (21-32) mmol/L Anion Gap (6-13) BUN (6-20) mg/dL Creatinine (0.4-1.0) mg/dL Estimated GFR (MDRD) (>89) Glucose (70-100) mg/dL POC Whole Bld Glucose 390 H 444 H 265 H (70 - 100) mg/dL Calcium (8.5-10.3) mg/dL Phosphorus (2.5-4.6) mg/dL Magnesium (1.7-2.8) mg/dL Albumin (3.2-5.5) g/dL Serum Ketones (NEGATIVE) 05/10/17 05/10/17 05/10/17 Range/Units 05:14 05:14 05:14 WBC 4.4 L (4.8-10.8) x10^3/uL RBC 4.12 L (4.20-5.40) 10^6/uL Hgb 9.9 L (12.0-16.0) g/dL Hct 31.5 L (37.0-47.0) % MCV 76.5 L (81.0-99.0) fL MCH 24.0 L (27.0-31.0) pg MCHC 31.3 L (32.0-36.0) g/dL RDW 17.4 H (12.0-15.0) % Plt Count 308 (130-450) 10^3/uL MPV 7.1 L (7.9-10.8) fL VBG pH 7.338 (7.31-7.41) Ionized Calcium 1.13 L (1.15-1.33) mmol/L Sodium (135-145) mmol/L Potassium (3.5-5.0) mmol/L Chloride (101-111) mmol/L Carbon Dioxide (21-32) mmol/L Anion Gap (6-13) BUN (6-20) mg/dL Creatinine (0.4-1.0) mg/dL Estimated GFR (MDRD) (>89) Glucose (70-100) mg/dL POC Whole Bld Glucose (70 - 100) mg/dL Calcium (8.5-10.3) mg/dL Phosphorus (2.5-4.6) mg/dL Magnesium (1.7-2.8) mg/dL Albumin (3.2-5.5) g/dL Serum Ketones SMALL H (NEGATIVE) 05/10/17 05/09/17 05/09/17 Range/Units 05:14 21:05 20:35 WBC (4.8-10.8) x10^3/uL RBC (4.20-5.40) 10^6/uL Hgb (12.0-16.0) g/dL Hct (37.0-47.0) % MCV (81.0-99.0) fL MCH (27.0-31.0) pg MCHC (32.0-36.0) g/dL RDW (12.0-15.0) % Plt Count (130-450) 10^3/uL MPV (7.9-10.8) fL VBG pH (7.31-7.41) Ionized Calcium (1.15-1.33) mmol/L Sodium 133 L (135-145) mmol/L Potassium 3.7 (3.5-5.0) mmol/L Chloride 102 (101-111) mmol/L Carbon Dioxide 23 (21-32) mmol/L Anion Gap 8.0 (6-13) BUN 13 (6-20) mg/dL Creatinine 0.5 (0.4-1.0) mg/dL Estimated GFR (MDRD) 140 (>89) Glucose 260 H (70-100) mg/dL POC Whole Bld Glucose 449 H 444 H (70 - 100) mg/dL Calcium 7.8 L (8.5-10.3) mg/dL Phosphorus 1.9 L (2.5-4.6) mg/dL Magnesium 1.8 (1.7-2.8) mg/dL Albumin 2.9 L (3.2-5.5) g/dL Serum Ketones (NEGATIVE) Assessment/Plan - Problem List (1) Diabetic acidosis without coma Impression: The patient is now off of the insulin drip and on a sliding scale. She is eating a regular diet. Continue present care. Patient may come out of the intensive care unit when her serum no longer shows ketones. She is eating well and has no other complaints today. Qualifiers: Diabetes mellitus type: type 2 Qualified Code(s): E11.10 - Type 2 diabetes mellitus with ketoacidosis without coma (2) Chronic pain disorder Impression: I have started the patient on low-dose methadone in place of her other opiates and she has not been complaining of pain. (3) Homeless single person Impression: I will ask social workers to once again look at Ms. Calero's homeless situation and see if there are any other programs to offer her. She is requesting placement in a drug rehab following this hospitalization. 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 I will asked the social workers to meet with her in will follow any suggestions that they may have.
[2017-05-10] MEDS: TEMAZEPAM 15 MG CAPSULE PO PRN (21:10)
[2017-05-10] MEDS: AMITRIPTYLINE 25 MG TABLET PO SCH (21:10)
[2017-05-11] MEDS: SODIUM CHLORIDE FLUSH 0.9% 10 ML SYRINGE IVP SCH ×5 (01:04→21:24)
[2017-05-11] MEDS: oxyCODONE 5 MG TABLET PO PRN ×5 (01:05→21:24)
[2017-05-11] MEDS: clonazePAM 0.5 MG TABLET PO PRN ×2 (01:05→14:09)
[2017-05-11] MEDS: SODIUM CHLORIDE FLUSH 0.9% 10 ML SYRINGE IVP PRN (01:55)
[2017-05-11] MEDS: D5.45NS W/20 MEQ KCL 1,000 ML IV SCH (03:27)
[2017-05-11 05:46] LABS: HGB - HEMOGLOBIN 9.8 g/dL (12.0-16.0); MEAN CORPUSCULAR HEMOGLOBIN 23.9 pg (27.0-31.0); MEAN CORPUSCULAR HGB CONC 31.7 g/dL (32.0-36.0); MEAN CORPUSCULAR VOLUME 75.6 fL (81.0-99.0); MEAN PLATELET VOLUME 7.1 fL (7.9-10.8); RED BLOOD COUNT 4.08 10^6/uL (4.20-5.40)
[2017-05-11 05:52] LABS: VBG PH 7.425 (7.31-7.41)
[2017-05-11 06:00] LABS: ALBUMIN 2.7 g/dL (3.2-5.5); CALCIUM 7.9 mg/dL (8.5-10.3); CREATININE 0.4 mg/dL (0.4-1.0); MAGNESIUM 1.5 mg/dL (1.7-2.8); PHOSPHORUS 1.9 mg/dL (2.5-4.6)
[2017-05-11] MEDS: GABAPENTIN 300 MG CAPSULE PO SCH ×3 (06:18→21:24)
[2017-05-11] MEDS: MAGNESIUM OXIDE 400 MG TABLET PO SCH ×2 (07:09→13:56)
[2017-05-11] MEDS: INSULIN ASPART 300 UNIT/3 ML PEN SUBQ SCH ×4 (08:38→21:25)
[2017-05-11] MEDS: INSULIN GLARGINE 300 UNIT/3 ML PEN SUBQ SCH ×2 (08:38→21:25)
[2017-05-11] MEDS: diltiaZEM CD 120 MG CAPSULE PO SCH (09:51)
[2017-05-11] MEDS: CILOSTAZOL 100 MG TABLET PO SCH ×2 (09:51→21:24)
[2017-05-11] MEDS: DULoxetine 20 MG CAPSULE PO SCH (09:51)
[2017-05-11] MEDS: cloNIDine 0.1 MG TABLET PO SCH ×2 (09:51→21:24)
[2017-05-11] MEDS: NEUTRA-PHOS 250 MG TABLET PO SCH ×2 (09:51→12:40)
[2017-05-11] MEDS: FERROUS SULFATE 325 MG TABLET PO SCH (09:51)
[2017-05-11] MEDS: METOPROLOL SUCCINATE 25 MG TABLET PO SCH ×2 (09:51→21:24)
[2017-05-11] MEDS: OXYBUTYNIN 5MG TABLET PO SCH ×2 (09:51→21:24)
[2017-05-11] MEDS: IBUPROFEN 600 MG TABLET PO PRN (11:00)
--- NOTE | 2017-05-11 11:37 | Discharge Plan ---
Discharge Plan Disposition: Home, Self Care Condition: Fair Prescriptions: Ibuprofen [Motrin] 600 mg PO Q6HR PRN #60 tablet PRN Reason: Pain 1 to 4 Amitriptyline [Elavil] 50 mg PO QPM 30 Days #30 tablet Cilostazol [Pletal] 100 mg PO BID #30 tablet clonazePAM [KlonoPIN] 1 mg PO BID PRN #30 tablet PRN Reason: Anxiety cloNIDine [Catapres] 0.1 mg PO BID #60 tablet diltiaZEM CD [Cardizem Cd] 120 mg PO DAILY #30 capsule DULoxetine [Cymbalta] 60 mg PO DAILY #90 capsule Gabapentin 600 mg PO TID #90 capsule Insulin Aspart [NovoLOG] 12 unit SUBQ TIDWM #3 pen Insulin Glargine [Lantus Solostar] 70 unit SUBQ DAILY #10 pen Methocarbamol [Robaxin] 500 mg PO BID PRN #30 tablet PRN Reason: Spasms Metoprolol Succinate [Toprol Xl] 25 mg PO BID #60 tablet Oxybutynin [Ditropan] 5 mg PO BID #60 tablet Syring-Needl,Disp,Insul,0.3 ml [Ultra Comfort] 1 each MC 5XD #90 disp.syrin Diet: Diabetic Activity Restrictions: Activity as Tolerated Shower Restrictions: No Driving Restrictions: No Weight Bearing: Full Weight Additional Instructions or Follow Up instructions: You were admitted for diabetic ketoacidosis and improved with an insulin drip and IV fluids. Your blood glucose is now stable and you can be discharged home. I have printed on prescriptions for all of your medications including your insulin and insulin syringes. Please fill these and take your medications as directed. No Smoking: If you smoke, Please STOP! Call for help.
--- NOTE | 2017-05-11 12:05 | DISCHARGE SUMMARY ---
Discharge Summary Admit Date: 05/08/17 Discharge Date: 05/11/17 Discharging Provider: Mason Mathews MD Primary Care Provider: None Code Status: Attempt Resuscitation Condition at Discharge: Fair Discharge Disposition: 01 Home, Self Care - DIAGNOSES Admission Diagnoses: 1. Diabetic ketoacidosis without coma 2. Chronic pain disorder 3. Homeless single person 4. 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 Diabetic ketoacidosis without coma: Resolved 2. Type 1 diabetes mellitus uncontrolled: Stable 3. Chronic pain disorder: Stable 4. Homeless single person: Guarded 5. 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 Ms. 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 She has been attended to by our social workers multiple occasions and yet continues in her homeless/drug abuse pattern , seemingly voluntarily. She will once again be admitted to the intensive care unit, placed on an insulin drip, and we will correct her electrolyte abnormalities. - HOSPITAL COURSE Hospital Course: Patient was admitted to the intensive care unit and placed on an insulin drip the patient's DKA resolved within the next 24 hours. Patient was placed on Lantus 70 units twice daily and sliding scale insulin. The patient's blood sugars remained stable over the course of the following 24 hours. Patient's electrolytes were replaced and patient was once again counseled on need for compliance and offered director of social work. The patient continues to be homeless and continues to make poor decisions and will likely continue to have recurrent hospitalizations despite our best efforts to provide her with resources. The patient was given prescriptions for all her medications including insulin as she stated that she was out of her medications. The patient was discharged in stable condition. The patient did inquire regarding rehab placement however at this point patient does not have needs that would qualify her for rehab. The patient has unfortunately been kicked out of her previous senior care and is therefore homeless. The patient has failed to follow-up with her primary care physician and has been fired is a patient multiple times. - ALLERGIES Allergies/Adverse Reactions: Allergies Allergy/AdvReac Type Severity Reaction Status Date / Time codeine Allergy Hives Verified 03/14/17 13:38 hydrocodone Allergy Hives Verified 03/14/17 13:38 milk AdvReac Cramps Verified 03/14/17 13:38 nitrofurantoin AdvReac Headache Verified 03/14/17 13:38 [From Macrobid] PAPER TAPE AdvReac Unknown Uncoded 03/14/17 13:38 - MEDICATIONS Home Medications: Ambulatory Orders Medication Instructions Recorded Confirmed Ferrous Sulfate 325 mg PO DAILY #30 tablet 03/21/17 04/30/17 Amitriptyline [Elavil] 50 mg PO QPM 30 Days #30 tablet 05/11/17 Cilostazol [Pletal] 100 mg PO BID #30 tablet 05/11/17 DULoxetine [Cymbalta] 60 mg PO DAILY #90 capsule 05/11/17 Gabapentin 600 mg PO TID #90 capsule 05/11/17 Ibuprofen [Motrin] 600 mg PO Q6HR PRN #60 tablet 05/11/17 Insulin Aspart [NovoLOG] 12 unit SUBQ TIDWM #3 pen 05/11/17 Insulin Glargine [Lantus Solostar] 70 unit SUBQ DAILY #10 pen 05/11/17 Methocarbamol [Robaxin] 500 mg PO BID PRN #30 tablet 05/11/17 Metoprolol Succinate [Toprol Xl] 25 mg PO BID #60 tablet 05/11/17 Oxybutynin [Ditropan] 5 mg PO BID #60 tablet 05/11/17 Syring-Needl,Disp,Insul,0.3 ml 1 each MC 5XD #90 disp.syrin 05/11/17 [Ultra Comfort] cloNIDine [Catapres] 0.1 mg PO BID #60 tablet 05/11/17 clonazePAM [KlonoPIN] 1 mg PO BID PRN #30 tablet 05/11/17 diltiaZEM CD [Cardizem Cd] 120 mg PO DAILY #30 capsule 05/11/17 - PHYSICAL EXAM AT DISCHARGE General Appearance: positive: Alert, Anxious Eyes Bilateral: positive: Normal inspection, PERRL, EOMI, No lid inflammation, Conjunctivae nml, No scleral icterus ENT: positive: ENT inspection nml, Pharynx nml, No signs of dehydration. negative: Purulent nasal drainage, Pharyngeal erythema, Oral lesions Neck: positive: Nml inspection, Thyroid nml, No JVD, Trachea midline. negative : Thyromegaly, Lymphadenopathy (R), Lymphadenopathy (L), Stiff neck, Carotid bruit, Tracheal deviation Respiratory: positive: Chest non-tender, No respiratory distress, Breath sounds nml. negative: Wheezes, Rales, Rhonchi Cardiovascular: positive: No murmur, No gallop, Tachycardia Peripheral Pulses: positive: 2+ Abdomen: positive: Non-tender, No organomegaly, Nml bowel sounds, No distention. negative: Guarding, Rebound Back: positive: Nml inspection. negative: CVA tenderness (R), CVA tenderness (L ) Skin: positive: Color nml, No rash, Warm Extremities: positive: Full ROM, No pedal edema, Other (Patient has chronic wounds on her toes including on the third toe on her left foot which did not appear to be infected or have draining. 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 She has swelling of her big toe on her right foot but it does not appear to be infected. Patient does have tenderness on palpation of both her feet.) Neurologic/Psychiatric: positive: Oriented x3, CN's nml (2-12), Motor nml, Sensation nml - LABS Result Diagrams: 05/11/17 04:54 05/11/17 04:54 Other Lab Results: Laboratory Results WBC 6.0 x10^3/uL (4.8-10.8) 05/11/17 04:54 RBC 4.08 10^6/uL (4.20-5.40) L 05/11/17 04:54 Hgb 9.8 g/dL (12.0-16.0) L 05/11/17 04:54 Hct 30.8 % (37.0-47.0) L 05/11/17 04:54 MCV 75.6 fL (81.0-99.0) L 05/11/17 04:54 MCH 23.9 pg (27.0-31.0) L 05/11/17 04:54 MCHC 31.7 g/dL (32.0-36.0) L 05/11/17 04:54 RDW 17.0 % (12.0-15.0) H 05/11/17 04:54 Plt Count 226 10^3/uL (130-450) 05/11/17 04:54 MPV 7.1 fL (7.9-10.8) L 05/11/17 04:54 Neut # 10.7 10^3/uL (1.5-6.6) H 05/08/17 13:45 Lymph # 1.8 10^3/uL (1.5-3.5) 05/08/17 13:45 [place] # 0.3 10^3/uL (0.0-1.0) 05/08/17 13:45 Eos # 0.0 10^3/uL (0.0-0.7) 05/08/17 13:45 Baso # 0.1 10^3/uL (0.0-0.1) 05/08/17 13:45 Absolute Nucleated RBC 0.00 x10^3/uL 05/08/17 13:45 Nucleated RBC % 0.0 /100WBC 05/08/17 13:45 VBG pH 7.425 (7.31-7.41) H 05/11/17 04:54 VBG pCO2 21.8 mmHg (41-51) L 05/08/17 17:00 VBG pO2 81.4 mmHg (25-47) H 05/08/17 17:00 VBG HCO3 7.2 mmol/L (23-28) L 05/08/17 17:00 VBG Total CO2 7.8 mmol/L (24-29) L 05/08/17 17:00 VBG O2 Saturation 93.6 % (60-80) H 05/08/17 17:00 VBG Base Excess -20.1 mmol/L (-2 - +2) L 05/08/17 17:00 Ionized Calcium 1.08 mmol/L (1.15-1.33) L 05/11/17 04:54 Sodium 135 mmol/L (135-145) 05/11/17 04:54 Potassium 3.6 mmol/L (3.5-5.0) 05/11/17 04:54 Chloride 102 mmol/L (101-111) 05/11/17 04:54 Carbon Dioxide 26 mmol/L (21-32) 05/11/17 04:54 Anion Gap 7.0 (6-13) 05/11/17 04:54 BUN 13 mg/dL (6-20) 05/11/17 04:54 Creatinine 0.4 mg/dL (0.4-1.0) 05/11/17 04:54 Estimated GFR (MDRD) 182 (>89) 05/11/17 04:54 Glucose 228 mg/dL (70-100) H 05/11/17 04:54 POC Whole Bld Glucose 242 mg/dL (70 - 100) H 05/11/17 11:33 Glycated Hemoglobin 12.7 % (4.6-6.2) H 05/09/17 12:30 Estim Average Glucose 318 (70-100) H 05/09/17 12:30 Calcium 7.9 mg/dL (8.5-10.3) L 05/11/17 04:54 Phosphorus 1.9 mg/dL (2.5-4.6) L 05/11/17 04:54 Magnesium 1.5 mg/dL (1.7-2.8) L 05/11/17 04:54 Total Bilirubin 2.0 mg/dL (0.2-1.0) H 05/08/17 13:45 AST 25 IU/L (10-42) 05/08/17 13:45 ALT 38 IU/L (10-60) 05/08/17 13:45 Alkaline Phosphatase 166 IU/L (42-121) H 05/08/17 13:45 Troponin I < 0.04 ng/mL (<0.49) 05/09/17 03:13 Total Protein 8.7 g/dL (6.7-8.2) H 05/08/17 13:45 Albumin 2.7 g/dL (3.2-5.5) L 05/11/17 04:54 Globulin 3.9 g/dL (2.1-4.2) 05/08/17 13:45 Albumin/Globulin Ratio 1.2 (1.0-2.2) 05/08/17 13:45 Lipase 11 U/L (22-51) L 05/08/17 13:45 HCG, Quant 2.15 mIU/mL 05/08/17 13:45 Urine Color YELLOW 05/08/17 15:03 Urine Clarity CLEAR (CLEAR) 05/08/17 15:03 Urine pH 5.5 PH (5.0-7.5) 05/08/17 15:03 Ur Specific [place] 1.025 (1.002-1.030) 05/08/17 15:03 Urine Protein NEGATIVE mg/dL (NEGATIVE) 05/08/17 15:03 Urine Glucose (UA) 500 mg/dL (NEGATIVE) H 05/08/17 15:03 Urine Ketones >=80 mg/dL (NEGATIVE) H 05/08/17 15:03 Urine Occult Blood SMALL (NEGATIVE) H 05/08/17 15:03 Urine Nitrite NEGATIVE (NEGATIVE) 05/08/17 15:03 Urine Bilirubin NEGATIVE (NEGATIVE) 05/08/17 15:03 Urine Urobilinogen 0.2 (NORMAL) E.U./dL (NORMAL) 05/08/17 15:03 Ur Leukocyte Esterase NEGATIVE (NEGATIVE) 05/08/17 15:03 Urine RBC 0-5 /HPF (0-5) 05/08/17 15:03 Urine WBC 0-3 /HPF (0-5) 05/08/17 15:03 Ur Squamous Epith Cells MOD Squamous (<= Few) H 05/08/17 15:03 Urine Bacteria Few /HPF (None Seen) 05/08/17 15:03 Ur Microscopic Review INDICATED 05/08/17 15:03 Urine Culture Comments NOT INDICATED 05/08/17 15:03 Urine Opiates Screen NEGATIVE (NEGATIVE) 05/08/17 15:03 Ur Oxycodone Screen NEGATIVE (NEGATIVE) 05/08/17 15:03 Urine Methadone Screen NEGATIVE (NEGATIVE) 05/08/17 15:03 Ur Propoxyphene Screen NEGATIVE (NEGATIVE) 05/08/17 15:03 Ur Barbiturates Screen NEGATIVE (NEGATIVE) 05/08/17 15:03 Ur Tricyclics Screen NEGATIVE (NEGATIVE) 05/08/17 15:03 Ur Phencyclidine Scrn NEGATIVE (NEGATIVE) 05/08/17 15:03 Ur Amphetamine Screen NEGATIVE (NEGATIVE) 05/08/17 15:03 U Methamphetamines Scrn POSITIVE (NEGATIVE) H 05/08/17 15:03 U Benzodiazepines Scrn NEGATIVE (NEGATIVE) 05/08/17 15:03 Urine Cocaine Screen NEGATIVE (NEGATIVE) 05/08/17 15:03 U Cannabinoids Screen NEGATIVE (NEGATIVE) 05/08/17 15:03 Serum Ketones SMALL (NEGATIVE) H 05/10/17 18:45 - FOLLOW UP Follow Up: Patient discharged home after hospitalization for DKA. She is now stable and was prescribed all her medications including insulin. She was given resources from director of social work. She was counselled on need for compliance with medications and diet. She was asked to establish care back with her PCP and follow up. - TIME SPENT Time Spent in Discharge (Minutes): 40
[2017-05-11] MEDS ORDERED: IPRATROPIUM/ALBUTEROL 3 ML NEB INH STA (13:32)
[2017-05-11 14:06] LABS: ABG PCO2 27 mmHg (34-45); ABG PH 7.54 (7.35-7.45); ABG PO2 143 mmHg (80-100)
[2017-05-11 14:07] LABS: ABG BASE EXCESS 0.5 mmol/L (-2.0-3.0); ABG HCO3 22.3 mmol/L (22.0-26.0); ABG OXYGEN SATURATION 98 % (94-98); ABG TCO2 23.2 MMOL/L (21.0-29.0); ALLEN TEST POSITIVE
--- NOTE | 2017-05-11 15:08 | XRAY Report ---
TWO VIEW CHEST: 05/11/2017 CLINICAL INDICATION: Hypoxia. FINDINGS Frontal and lateral views of the chest are compared to previous film of 04/30/2017. The cardiac silhouette is not enlarged. There is linear atelectasis at the bases. No effusion or pneumothorax is present. IMPRESSION: PATCHY BASILAR ATELECTASIS. TD: 05/11/2017 14:48
[2017-05-11] MEDS ORDERED: IOPAMIDOL-300 100 ML VIAL ONE (15:47)
[2017-05-11] MEDS ORDERED: IOPAMIDOL-300 100 ML VIAL IVP ONE (16:16)
--- NOTE | 2017-05-11 16:39 | CT Report ---
EXAM: CT ANGIOGRAM CHEST EXAM DATE: 05/11/2017 04:12 PM. CLINICAL HISTORY: Hypoxia and elevated D-dimer. COMPARISON: 01/25/2017. TECHNIQUE: Routine helical imaging was performed through the chest in the pulmonary arterial phase. I V Contrast: 80 cc of Isovue-300. Reconstructions: Coronal 3-D MIP reconstructions.Sagittal and fisher l. In accordance with CT protocol optimization, one or more of the following dose reduction techniques w ere utilized for this exam: automated exposure control, adjustment of mA and/or KV based on patient s ize, or use of iterative reconstructive technique. FINDINGS: Pulmonary Arteries: Diagnostic quality: Adequate through the segmental arteries. No evidence for acute or chronic pulmona ry emboli. RV/LV is within normal limits. There is no interventricular septal bowing. There is no reflux of cont rast material in the IVC. Lungs/Pleura: Mild atelectasis in the bases. Mild mosaic lung attenuation. No consolidation, nodules, or edema. Tiny effusions. No pneumothorax. Mediastinum: Normal. No cardiac enlargement or adenopathy. Thoracic Aorta: Unremarkable. Upper Abdomen: Unremarkable. Other: None. IMPRESSION: 1. No pulmonary emboli. 2. No aortic aneurysm or dissection. 3. Mild atelectasis in the bases with tiny pleural effusions. [facility] Referring Provider Line: [phone] SITE ID: [id number]
[2017-05-11] MEDS ORDERED: KETOROLAC 30 MG/ML VIAL IVP STA (17:48)
--- NOTE | 2017-05-11 18:36 | PROVIDER PROGRESS NOTE ---
Assessment/Plan - Problem List (1) Hypoxia Assessment/Plan: O2 sat dropped to 84% while sleeping and down to 91% on RA awake ABG was WNL CXR shows atlectasis CTA Lungs negative for PE Plan: COntinue O2 as needed IS Needs sleep study as outpatient (2) DKA (diabetic ketoacidoses) Qualifiers: Diabetes mellitus type: type 1 Diabetes mellitus complication detail: without coma Qualified Code(s): E10.10 - Type 1 diabetes mellitus with ketoacidosis without coma Assessment/Plan: Resolved On lantus and SS insulin DM diet BG ACHS stable Discharge tomorrow Change to med/surg (3) Chronic pain disorder Assessment/Plan: Avoid opioids Continue gabapentin Give toradol Pain uncontrolled (4) Homeless single person Assessment/Plan: Social work consulted She does not qualify for placement (5) 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 Assessment/Plan: Continue elavil, klonopin and cymbalta Stable - Current Meds Current Meds: Current Medications Generic Name Dose Route Start Last Admin Trade Name Freq PRN Reason Stop Dose Admin Amitriptyline HCl 50 mg 05/08/17 21:00 05/10/17 21:10 Elavil PO 50 mg QPM SYLVIA Administration Cilostazol 100 mg 05/08/17 21:00 05/11/17 09:51 Pletal PO 100 mg BID SYLVIA Administration Clonazepam 1 mg 05/08/17 14:51 05/11/17 14:09 Klonopin PO 1 mg BID PRN Administration Anxiety Clonidine HCl 0.1 mg 05/08/17 21:00 05/11/17 09:51 Catapres PO 0.1 mg BID SYLVIA Administration Diltiazem HCl 120 mg 05/09/17 09:00 05/11/17 09:51 Cardizem Cd PO 120 mg DAILY SYLVIA Administration Duloxetine HCl 60 mg 05/09/17 09:00 05/11/17 09:51 Cymbalta PO 60 mg DAILY SYLVIA Administration Ferrous Sulfate 325 mg 05/09/17 09:00 05/11/17 09:51 Feosol PO 325 mg DAILY SYLVIA Administration Gabapentin 600 mg 05/08/17 22:00 05/11/17 13:56 Neurontin PO 600 mg TID SYLVIA Administration Ibuprofen 600 mg 05/08/17 14:44 05/11/17 11:00 Motrin PO 600 mg Q6HR PRN Administration Pain 1 to 4 Insulin Aspart 3 - 11 unit 05/09/17 21:38 05/11/17 17:21 Novolog SUBQ 5 unit 0800,1200,1700,2100 SYLVIA Administration Protocol Insulin Glargine 70 unit 05/10/17 12:29 05/11/17 08:38 Lantus Solostar SUBQ 70 unit BID SYLVIA Administration Insulin Human Regular 15 unit 05/10/17 12:30 05/10/17 17:26 Novolin R SUBQ 15 unit Q1H PRN Administration Hyperglycemica Metoprolol Succinate 25 mg 05/08/17 21:00 05/11/17 09:51 Toprol Xl PO 25 mg BID SYLVIA Administration Oxybutynin Chloride 5 mg 05/08/17 21:00 05/11/17 09:51 Ditropan PO 5 mg BID SYLVIA Administration Oxycodone HCl 5 mg 05/08/17 14:44 05/11/17 17:21 Roxicodone PO 5 mg Q4HR PRN Administration Pain 5 to 7 Prochlorperazine Edisylate 10 mg 05/08/17 16:27 05/08/17 18:53 Compazine Inj IVP 10 mg Q4HR PRN Administration Nausea / Vomiting Sodium Chloride 10 ml 05/08/17 17:00 05/11/17 18:14 Normal Saline Flush 0.9% IVP 10 ml 0100,0900,1700 SYLVIA Administration Sodium Chloride 10 ml 05/08/17 14:44 05/11/17 01:55 Normal Saline Flush 0.9% IVP 10 ml PRN PRN Administration NEEDED PER PROVIDER ORDERS Temazepam 15 mg 05/08/17 14:44 05/10/17 21:10 Restoril PO 15 mg QPM PRN Administration Insomnia - Lab Result Lab results reviewed: Yes Fish Bone Diagrams: 05/11/17 04:54 05/11/17 04:54 - Diagnostic Imaging Results Diagnostic Imaging Results: Final report reviewed - Additional Planning Condition/Complexity: Guarded My Orders: My Active Orders 05/11/17 11:41 Discharge [RC] .ONCE Initiate Discharge Checklist [RC] .ONCE 05/11/17 13:32 Ipratropium/Albuterol [Duoneb] 3 ml INH Q4HR PRN 05/11/17 13:33 Nebulizer/MDI Tx. [RC] .q4prn Resp Teach Nebulizer/MDI [RC] .ONCE 05/11/17 17:22 Vital Signs [RC] QSHIFT Plan Discussed with:: Patient Time Spent: 31-60 minutes Subjective - Subjective Patient Reports: Other (Patient states she does not feel well. States she is dizzy. Denies coughing. She is very drowsy.) Nursing Reports: No Complaints Objective Vital Signs: Vital Signs - 24 hr 05/10/17 05/10/17 05/10/17 19:26 20:00 21:00 Temperature Heart Rate Heart Rate [ 104 H 104 H 116 H Monitoring electrodes] Respiratory 26 H 20 24 Rate Blood Pressure [Left Brachial artery] Blood Pressure 95/61 106/64 122/80 [Right Brachial artery] O2 Saturation 93 92 05/10/17 05/10/17 05/11/17 22:00 23:00 00:00 Temperature 36.9 C Heart Rate Heart Rate [ 123 H 117 H 116 H Monitoring electrodes] Respiratory 26 H 26 H 15 Rate Blood Pressure [Left Brachial artery] Blood Pressure 102/61 93/45 L 90/53 L [Right Brachial artery] O2 Saturation 05/11/17 05/11/17 05/11/17 01:00 02:00 03:00 Temperature Heart Rate Heart Rate [ 113 H 118 H 102 H Monitoring electrodes] Respiratory 22 27 H 22 Rate Blood Pressure 108/70 90/64 [Left Brachial artery] Blood Pressure 98/65 [Right Brachial artery] O2 Saturation 92 05/11/17 05/11/17 05/11/17 04:00 05:00 06:00 Temperature 36.6 C Heart Rate Heart Rate [ 118 H 117 H 120 H Monitoring electrodes] Respiratory 25 H 21 22 Rate Blood Pressure 103/75 118/81 H 106/71 [Left Brachial artery] Blood Pressure [Right Brachial artery] O2 Saturation 93 05/11/17 05/11/17 05/11/17 07:00 08:00 09:00 Temperature 37.3 C Heart Rate Heart Rate [ 117 H 123 H 114 H Monitoring electrodes] Respiratory 24 26 H 23 Rate Blood Pressure 112/74 104/88 H 106/75 [Left Brachial artery] Blood Pressure [Right Brachial artery] O2 Saturation 92 80 L 98 05/11/17 05/11/17 05/11/17 10:00 11:00 12:00 Temperature Heart Rate Heart Rate [ 117 H 115 H 124 H Monitoring electrodes] Respiratory 25 H 20 15 Rate Blood Pressure 92/67 106/63 92/80 [Left Brachial artery] Blood Pressure [Right Brachial artery] O2 Saturation 92 2 L 90 L 05/11/17 05/11/17 05/11/17 12:53 13:00 13:19 Temperature Heart Rate Heart Rate [ 110 H 114 H 116 H Monitoring electrodes] Respiratory 22 Rate Blood Pressure 93/56 L [Left Brachial artery] Blood Pressure [Right Brachial artery] O2 Saturation 05/11/17 05/11/17 05/11/17 14:00 15:00 15:35 Temperature 37.1 C Heart Rate 105 H Heart Rate [ 112 H 110 H Monitoring electrodes] Respiratory 21 21 16 Rate Blood Pressure 93/56 L 95/70 [Left Brachial artery] Blood Pressure [Right Brachial artery] O2 Saturation 93 91 L 05/11/17 05/11/17 16:00 17:00 Temperature 36.7 C Heart Rate Heart Rate [ 110 H 114 H Monitoring electrodes] Respiratory 20 29 H Rate Blood Pressure 103/77 103/77 [Left Brachial artery] Blood Pressure [Right Brachial artery] O2 Saturation 93 85 L Oxygen O2 Source Room air I&O (Last 24 Hrs): Intake and Output Totals x24h 05/09/17 05/10/17 05/11/17 23:59 23:59 23:59 Intake Total 4429.736 6830.000 5041.583 Output Total 777 360 Balance 3652.736 6470.000 5041.583 General: Alert, Oriented x3, Other (Drowsy) HEENT: Atraumatic, PERRLA, EOMI, Mucous membr. moist/pink Neck: Supple, No JVD, No thyromegaly, +2 carotid pulse wo bruit, No LAD Lymphatic: no adenopathy Neuro: Alert, CN 2-12 Grossly Intact, Oriented Times 3 Cardiovascular: No murmurs, Other (Tachycardic) Respiratory: Chest non-tender, No respiratory distress, Rales (Bases) Abdomen: Normal bowel sounds, Soft, No tenderness, No hepatospenomegaly Extremities: No clubbing, No cyanosis, No edema, Normal pulses Skin: No rashes, No breakdown - Results Results: Laboratory Results WBC 6.0 x10^3/uL (4.8-10.8) 05/11/17 04:54 RBC 4.08 10^6/uL (4.20-5.40) L 05/11/17 04:54 Hgb 9.8 g/dL (12.0-16.0) L 05/11/17 04:54 Hct 30.8 % (37.0-47.0) L 05/11/17 04:54 MCV 75.6 fL (81.0-99.0) L 05/11/17 04:54 MCH 23.9 pg (27.0-31.0) L 05/11/17 04:54 MCHC 31.7 g/dL (32.0-36.0) L 05/11/17 04:54 RDW 17.0 % (12.0-15.0) H 05/11/17 04:54 Plt Count 226 10^3/uL (130-450) 05/11/17 04:54 MPV 7.1 fL (7.9-10.8) L 05/11/17 04:54 Neut # 10.7 10^3/uL (1.5-6.6) H 05/08/17 13:45 Lymph # 1.8 10^3/uL (1.5-3.5) 05/08/17 13:45 Bladen # 0.3 10^3/uL (0.0-1.0) 05/08/17 13:45 Eos # 0.0 10^3/uL (0.0-0.7) 05/08/17 13:45 Baso # 0.1 10^3/uL (0.0-0.1) 05/08/17 13:45 Absolute Nucleated RBC 0.00 x10^3/uL 05/08/17 13:45 Nucleated RBC % 0.0 /100WBC 05/08/17 13:45 D-Dimer 319.9 ng/mL (200.0-255.0) H 05/11/17 14:55 Bld Gas Analysis Time 1403 05/11/17 13:58 Sample Site LEFT RADIAL 05/11/17 13:58 ABG pH 7.54 (7.35-7.45) H 05/11/17 13:58 ABG pCO2 27 mmHg (34-45) L 05/11/17 13:58 ABG pO2 143 mmHg (80-100) H 05/11/17 13:58 ABG HCO3 22.3 mmol/L (22.0-26.0) 05/11/17 13:58 ABG Total CO2 23.2 MMOL/L (21.0-29.0) 05/11/17 13:58 ABG O2 Saturation 98 % (94-98) 05/11/17 13:58 ABG Base Excess 0.5 mmol/L (-2.0-3.0) 05/11/17 13:58 Ilia Test POSITIVE 05/11/17 13:58 VBG pH 7.425 (7.31-7.41) H 05/11/17 04:54 VBG pCO2 21.8 mmHg (41-51) L 05/08/17 17:00 VBG pO2 81.4 mmHg (25-47) H 05/08/17 17:00 VBG HCO3 7.2 mmol/L (23-28) L 05/08/17 17:00 VBG Total CO2 7.8 mmol/L (24-29) L 05/08/17 17:00 VBG O2 Saturation 93.6 % (60-80) H 05/08/17 17:00 VBG Base Excess -20.1 mmol/L (-2 - +2) L 05/08/17 17:00 Ionized Calcium 1.08 mmol/L (1.15-1.33) L 05/11/17 04:54 O2 Delivery Device NASAL CANNULA 05/11/17 13:58 O2 Liters/Min 2.00 LPM 05/11/17 13:58 Sodium 135 mmol/L (135-145) 05/11/17 04:54 Potassium 3.6 mmol/L (3.5-5.0) 05/11/17 04:54 Chloride 102 mmol/L (101-111) 05/11/17 04:54 Carbon Dioxide 26 mmol/L (21-32) 05/11/17 04:54 Anion Gap 7.0 (6-13) 05/11/17 04:54 BUN 13 mg/dL (6-20) 05/11/17 04:54 Creatinine 0.4 mg/dL (0.4-1.0) 05/11/17 04:54 Estimated GFR (MDRD) 182 (>89) 05/11/17 04:54 Glucose 228 mg/dL (70-100) H 05/11/17 04:54 POC Whole Bld Glucose 225 mg/dL (70 - 100) H 05/11/17 16:28 Glycated Hemoglobin 12.7 % (4.6-6.2) H 05/09/17 12:30 Estim Average Glucose 318 (70-100) H 05/09/17 12:30 Calcium 7.9 mg/dL (8.5-10.3) L 05/11/17 04:54 Phosphorus 1.9 mg/dL (2.5-4.6) L 05/11/17 04:54 Magnesium 1.5 mg/dL (1.7-2.8) L 05/11/17 04:54 Total Bilirubin 2.0 mg/dL (0.2-1.0) H 05/08/17 13:45 AST 25 IU/L (10-42) 05/08/17 13:45 ALT 38 IU/L (10-60) 05/08/17 13:45 Alkaline Phosphatase 166 IU/L (42-121) H 05/08/17 13:45 Troponin I < 0.04 ng/mL (<0.49) 05/11/17 14:55 B-Natriuretic Peptide 95 pg/mL (5-100) 05/11/17 14:55 Total Protein 8.7 g/dL (6.7-8.2) H 05/08/17 13:45 Albumin 2.7 g/dL (3.2-5.5) L 05/11/17 04:54 Globulin 3.9 g/dL (2.1-4.2) 05/08/17 13:45 Albumin/Globulin Ratio 1.2 (1.0-2.2) 05/08/17 13:45 Lipase 11 U/L (22-51) L 05/08/17 13:45 HCG, Quant 2.15 mIU/mL 05/08/17 13:45 Urine Color YELLOW 05/08/17 15:03 Urine Clarity CLEAR (CLEAR) 05/08/17 15:03 Urine pH 5.5 PH (5.0-7.5) 05/08/17 15:[address] 1.025 (1.002-1.030) 05/08/17 15:03 Urine Protein NEGATIVE mg/dL (NEGATIVE) 05/08/17 15:03 Urine Glucose (UA) 500 mg/dL (NEGATIVE) H 05/08/17 15:03 Urine Ketones >=80 mg/dL (NEGATIVE) H 05/08/17 15:03 Urine Occult Blood SMALL (NEGATIVE) H 05/08/17 15:03 Urine Nitrite NEGATIVE (NEGATIVE) 05/08/17 15:03 Urine Bilirubin NEGATIVE (NEGATIVE) 05/08/17 15:03 Urine Urobilinogen 0.2 (NORMAL) E.U./dL (NORMAL) 05/08/17 15:03 Ur Leukocyte Esterase NEGATIVE (NEGATIVE) 05/08/17 15:03 Urine RBC 0-5 /HPF (0-5) 05/08/17 15:03 Urine WBC 0-3 /HPF (0-5) 05/08/17 15:03 Ur Squamous Epith Cells MOD Squamous (<= Few) H 05/08/17 15:03 Urine Bacteria Few /HPF (None Seen) 05/08/17 15:03 Ur Microscopic Review INDICATED 05/08/17 15:03 Urine Culture Comments NOT INDICATED 05/08/17 15:03 Urine Opiates Screen NEGATIVE (NEGATIVE) 05/08/17 15:03 Ur Oxycodone Screen NEGATIVE (NEGATIVE) 05/08/17 15:03 Urine Methadone Screen NEGATIVE (NEGATIVE) 05/08/17 15:03 Ur Propoxyphene Screen NEGATIVE (NEGATIVE) 05/08/17 15:03 Ur Barbiturates Screen NEGATIVE (NEGATIVE) 05/08/17 15:03 Ur Tricyclics Screen NEGATIVE (NEGATIVE) 05/08/17 15:03 Ur Phencyclidine Scrn NEGATIVE (NEGATIVE) 05/08/17 15:03 Ur Amphetamine Screen NEGATIVE (NEGATIVE) 05/08/17 15:03 U Methamphetamines Scrn POSITIVE (NEGATIVE) H 05/08/17 15:03 U Benzodiazepines Scrn NEGATIVE (NEGATIVE) 05/08/17 15:03 Urine Cocaine Screen NEGATIVE (NEGATIVE) 05/08/17 15:03 U Cannabinoids Screen NEGATIVE (NEGATIVE) 05/08/17 15:03 Serum Ketones SMALL (NEGATIVE) H 05/10/17 18:45 - Procedures Procedures: Procedures DETACHMENT AT RIGHT 1ST TOE, LOW, OPEN APPROACH (03/14/17) INSERT INFUSION DEV IN R INT JUGULAR VEIN, PERC (04/21/16) INSERTION OF INFUSION DEV INTO R SUBCLAV VEIN, PERC APPROACH (03/14/17) INSERTION OF INFUSION DEV INTO SUP VENA CAVA, PERC APPROACH (04/30/17) INSERTION OF INFUSION DEVICE INTO R ATRIUM, PERC APPROACH (12/04/15) TRANSFUSE NONAUT RED BLOOD CELLS IN PERIPH VEIN, PERC (01/22/17) ULTRASONOGRAPHY OF RIGHT JUGULAR VEINS, GUIDANCE (04/21/16)
[2017-05-11] MEDS: ACETAMINOPHEN 1,000 MG/100 ML 100 ML IV PRN (21:23)
[2017-05-11] MEDS: AMITRIPTYLINE 25 MG TABLET PO SCH (21:24)
[2017-05-11] MEDS: TEMAZEPAM 15 MG CAPSULE PO PRN (21:24)
[2017-05-12] MEDS: oxyCODONE 5 MG TABLET PO PRN ×3 (03:24→19:28)
[2017-05-12] MEDS: IBUPROFEN 600 MG TABLET PO PRN ×3 (06:21→18:06)
[2017-05-12] MEDS: ACETAMINOPHEN 1,000 MG/100 ML 100 ML IV PRN ×2 (06:21→16:44)
[2017-05-12] MEDS: GABAPENTIN 300 MG CAPSULE PO SCH ×3 (06:25→21:25)
[2017-05-12 06:43] LABS: HGB - HEMOGLOBIN 9.9 g/dL (12.0-16.0); MEAN CORPUSCULAR HEMOGLOBIN 23.9 pg (27.0-31.0); MEAN CORPUSCULAR HGB CONC 31.5 g/dL (32.0-36.0); MEAN CORPUSCULAR VOLUME 75.9 fL (81.0-99.0); MEAN PLATELET VOLUME 7.3 fL (7.9-10.8); RED BLOOD COUNT 4.15 10^6/uL (4.20-5.40); RED CELL DISTRIBUTION WIDTH 17.6 % (12.0-15.0); WHITE BLOOD COUNT 8.3 x10^3/uL (4.8-10.8)
[2017-05-12 06:51] LABS: CALCIUM 8.1 mg/dL (8.5-10.3); CREATININE 0.4 mg/dL (0.4-1.0)
[2017-05-12] MEDS ORDERED: SODIUM CHLORIDE 0.9% 1,000 ML IV ONE (07:52)
[2017-05-12] MEDS: SODIUM CHLORIDE FLUSH 0.9% 10 ML SYRINGE IVP SCH ×2 (08:09→16:47)
[2017-05-12] MEDS: INSULIN ASPART 300 UNIT/3 ML PEN SUBQ SCH ×4 (08:12→20:32)
[2017-05-12] MEDS: diltiaZEM CD 120 MG CAPSULE PO SCH (09:33)
[2017-05-12] MEDS: cloNIDine 0.1 MG TABLET PO SCH ×2 (09:33→21:28)
[2017-05-12] MEDS: METOPROLOL SUCCINATE 25 MG TABLET PO SCH ×2 (09:33→21:25)
[2017-05-12] MEDS: DULoxetine 20 MG CAPSULE PO SCH (09:43)
[2017-05-12] MEDS: CILOSTAZOL 100 MG TABLET PO SCH ×2 (09:44→21:25)
[2017-05-12] MEDS: OXYBUTYNIN 5MG TABLET PO SCH ×2 (09:44→21:25)
[2017-05-12] MEDS: FERROUS SULFATE 325 MG TABLET PO SCH (09:44)
[2017-05-12] MEDS: INSULIN GLARGINE 300 UNIT/3 ML PEN SUBQ SCH ×2 (10:23→20:32)
--- NOTE | 2017-05-12 10:52 | XRAY Report ---
FRONTAL CHEST: 05/12/2017 CLINICAL INDICATION: Worsening hypoxia and shortness of breath. COMPARISON: CT and plain film 05/11/2017. FINDINGS: Frontal view of the chest demonstrates a normal cardiac silhouette. Patchy bilateral airspace disease has increased. No effusion or pneumothorax is present. IMPRESSION: PATCHY BILATERAL AIRSPACE DISEASE, INCREASED FROM PREVIOUS. TD: 05/12/2017 08:28
[2017-05-12] MEDS: CEFEPIME 2 GM in SODIUM CHLORIDE 0.9% MINIBAG 100 ML IV SCH ×2 (12:08→21:54)
[2017-05-12] MEDS: SODIUM CHLORIDE FLUSH 0.9% 10 ML SYRINGE IVP PRN (12:10)
[2017-05-12] MEDS: IPRATROPIUM/ALBUTEROL 3 ML NEB INH PRN (16:12)
--- NOTE | 2017-05-12 19:01 | PROVIDER PROGRESS NOTE ---
Assessment/Plan - Problem List (1) HCAP (healthcare-associated pneumonia) Assessment/Plan: Patient was hypoxic yesterday with cough and not feeling well so we did work up with ABG, CXR and CTA Lungs which was all negative except for atlectasis This morning patient had worsening hypoxia with coughing, diaphoresis and became hypotensive She is also more tachycardic than baseline this am with HR in the 130s. Repeat CXR showed patchy bilateral airspace disease Patient has been hospitalized recently therefore started on treatment for HCAP with cefepime to cover psueudomonas Also started on Nebs and continued on O2 IVFs for hypotension (2) DKA (diabetic ketoacidoses) Qualifiers: Diabetes mellitus type: type 1 Diabetes mellitus complication detail: without coma Qualified Code(s): E10.10 - Type 1 diabetes mellitus with ketoacidosis without coma Assessment/Plan: Resolved On home dose of lantus and SS insulin DM diet (3) Chronic pain disorder Assessment/Plan: Stable On oxycodone, gabapentin and NSAIDs (4) Homeless single person Assessment/Plan: Social work consulted patient unable to stay at long term due to behavioral issues Given resources for other shelters off [place] (5) 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 Assessment/Plan: Stable Continued on home medications - Current Meds Current Meds: Current Medications Generic Name Dose Route Start Last Admin Trade Name Freq PRN Reason Stop Dose Admin Albuterol/Ipratropium 3 ml 05/11/17 13:32 05/12/17 16:12 Duoneb INH 3 ml Q4HR PRN Administration Wheezing Amitriptyline HCl 50 mg 05/08/17 21:00 05/11/17 21:24 Elavil PO 50 mg QPM SYLVIA Administration Cilostazol 100 mg 05/08/17 21:00 05/12/17 09:44 Pletal PO 100 mg BID SYLVIA Administration Clonazepam 1 mg 05/08/17 14:51 05/11/17 14:09 Klonopin PO 1 mg BID PRN Administration Anxiety Clonidine HCl 0.1 mg 05/08/17 21:00 05/12/17 09:33 Catapres PO Not Given BID SYLVIA Diltiazem HCl 120 mg 05/09/17 09:00 05/12/17 09:33 Cardizem Cd PO Not Given DAILY SYLVIA Duloxetine HCl 60 mg 05/09/17 09:00 05/12/17 09:43 Cymbalta PO 60 mg DAILY SYLVIA Administration Ferrous Sulfate 325 mg 05/09/17 09:00 05/12/17 09:44 Feosol PO 325 mg DAILY SYLVIA Administration Gabapentin 600 mg 05/08/17 22:00 05/12/17 14:30 Neurontin PO 600 mg TID SYLVIA Administration Acetaminophen 100 mls @ 400 mls/hr 05/11/17 20:41 05/12/17 16:59 Ofirmev IV Infused Q6HR PRN Infusion PAIN Cefepime HCl 2 gm/ Sodium 100 mls @ 200 mls/hr 05/12/17 12:00 05/12/17 12:38 Chloride IV Infused BID SYLVIA Infusion Ibuprofen 600 mg 05/08/17 14:44 05/12/17 18:06 Motrin PO 600 mg Q6HR PRN Administration Pain 1 to 4 Insulin Aspart 3 - 11 unit 05/09/17 21:38 05/12/17 17:29 Novolog SUBQ 5 unit 0800,1200,1700,2100 SYLVIA Administration Protocol Insulin Glargine 70 unit 05/10/17 12:29 05/12/17 10:23 Lantus Solostar SUBQ 70 unit BID SYLVIA Administration Insulin Human Regular 15 unit 05/10/17 12:30 05/10/17 17:26 Novolin R SUBQ 15 unit Q1H PRN Administration Hyperglycemica Metoprolol Succinate 25 mg 05/08/17 21:00 05/12/17 09:33 Toprol Xl PO Not Given BID SYLVIA Oxybutynin Chloride 5 mg 05/08/17 21:00 05/12/17 09:44 Ditropan PO 5 mg BID SYLVIA Administration Oxycodone HCl 5 mg 05/08/17 14:44 05/12/17 14:30 Roxicodone PO 5 mg Q4HR PRN Administration Pain 5 to 7 Prochlorperazine Edisylate 10 mg 05/08/17 16:27 05/08/17 18:53 Compazine Inj IVP 10 mg Q4HR PRN Administration Nausea / Vomiting Sodium Chloride 10 ml 05/08/17 17:00 05/12/17 16:47 Normal Saline Flush 0.9% IVP 10 ml 0100,0900,1700 SYLVIA Administration Sodium Chloride 10 ml 05/08/17 14:44 05/12/17 12:10 Normal Saline Flush 0.9% IVP 10 ml PRN PRN Administration NEEDED PER PROVIDER ORDERS Temazepam 15 mg 05/08/17 14:44 05/11/17 21:24 Restoril PO 15 mg QPM PRN Administration Insomnia - Lab Result Lab results reviewed: Yes Fish Bone Diagrams: 05/14/17 06:10 05/14/17 06:10 - Diagnostic Imaging Results Diagnostic Imaging Results: Final report reviewed - Additional Planning Condition/Complexity: Guarded My Orders: My Active Orders 05/12/17 12:00 Cefepime 2 gm Sodium Chloride 0.9% Minibag [Normal Saline 0.9% Minibag] 100 ml IV BID 05/12/17 16:13 RT [Oxygen Therapy] [RC] .PRN 05/13/17 08:00 Insulin Aspart [NovoLOG] 12 unit SUBQ TIDWM Plan Discussed with:: Patient Time Spent: 31-60 minutes Subjective - Subjective Patient Reports: Cough, Dizzines, Shortness of Breath, Other (Feels awful this morning. She is sweating. Coughing and short of breath. She denies any fevers or chills.) Nursing Reports: No Complaints Objective Vital Signs: Vital Signs - 24 hr 05/11/17 05/12/17 05/12/17 22:00 00:30 04:00 Temperature 36.6 C Heart Rate 110 H Heart Rate [ 117 H Brachial] Heart Rate [ 112 H Monitoring electrodes] Respiratory 20 24 24 Rate Blood Pressure 130/83 H 94/62 [Left Brachial artery] O2 Saturation 93 96 05/12/17 05/12/17 05/12/17 07:49 07:56 08:01 Temperature Heart Rate Heart Rate [ Brachial] Heart Rate [ 135 H 136 H 137 H Monitoring electrodes] Respiratory 28 H 30 H 18 Rate Blood Pressure 89/59 L 80/61 L 84/66 L [Left Brachial artery] O2 Saturation 92 92 92 05/12/17 05/12/17 05/12/17 08:15 09:15 10:26 Temperature 98.1 C H Heart Rate Heart Rate [ 124 H Brachial] Heart Rate [ 139 H 130 H Monitoring electrodes] Respiratory 24 20 22 Rate Blood Pressure 98/72 96/57 L 100/76 [Left Brachial artery] O2 Saturation 93 92 97 05/12/17 05/12/17 16:14 18:36 Temperature Heart Rate 129 H Heart Rate [ 128 H Brachial] Heart Rate [ Monitoring electrodes] Respiratory 20 22 Rate Blood Pressure [Left Brachial artery] O2 Saturation 94 Oxygen O2 Source Nasal cannula I&O (Last 24 Hrs): Intake and Output Totals x24h 05/10/17 05/11/17 05/12/17 23:59 23:59 23:59 Intake Total 6830.000 5141.583 3319 Output Total 360 Balance 6470.000 5141.583 3319 General: Alert, Oriented x3, Moderate distress (Diaphoretic sick appearing) HEENT: Atraumatic, PERRLA, EOMI, Other (dry) Neck: Supple, No JVD, No thyromegaly, +2 carotid pulse wo bruit, No LAD Lymphatic: no adenopathy Neuro: Alert, Non Focal, CN 2-12 Grossly Intact, Oriented Times 3 Cardiovascular: No murmurs, Other (Tachycardic) Respiratory: Chest non-tender, Wheezes (scattered), Rhonchi (Bibasilar) Abdomen: Normal bowel sounds, Soft, No tenderness, No hepatospenomegaly Extremities: No clubbing, No cyanosis, No edema, Normal pulses, No tenderness/ swelling Skin: No rashes, No breakdown - Results Results: Laboratory Results WBC 8.3 x10^3/uL (4.8-10.8) 05/12/17 06:36 RBC 4.15 10^6/uL (4.20-5.40) L 05/12/17 06:36 Hgb 9.9 g/dL (12.0-16.0) L 05/12/17 06:36 Hct 31.5 % (37.0-47.0) L 05/12/17 06:36 MCV 75.9 fL (81.0-99.0) L 05/12/17 06:36 MCH 23.9 pg (27.0-31.0) L 05/12/17 06:36 MCHC 31.5 g/dL (32.0-36.0) L 05/12/17 06:36 RDW 17.6 % (12.0-15.0) H 05/12/17 06:36 Plt Count 186 10^3/uL (130-450) 05/12/17 06:36 MPV 7.3 fL (7.9-10.8) L 05/12/17 06:36 Neut # 10.7 10^3/uL (1.5-6.6) H 05/08/17 13:45 Lymph # 1.8 10^3/uL (1.5-3.5) 05/08/17 13:45 [place] # 0.3 10^3/uL (0.0-1.0) 05/08/17 13:45 Eos # 0.0 10^3/uL (0.0-0.7) 05/08/17 13:45 Baso # 0.1 10^3/uL (0.0-0.1) 05/08/17 13:45 Absolute Nucleated RBC 0.00 x10^3/uL 05/08/17 13:45 Nucleated RBC % 0.0 /100WBC 05/08/17 13:45 D-Dimer 319.9 ng/mL (200.0-255.0) H 05/11/17 14:55 Bld Gas Analysis Time 1403 05/11/17 13:58 Sample Site LEFT RADIAL 05/11/17 13:58 ABG pH 7.54 (7.35-7.45) H 05/11/17 13:58 ABG pCO2 27 mmHg (34-45) L 05/11/17 13:58 ABG pO2 143 mmHg (80-100) H 05/11/17 13:58 ABG HCO3 22.3 mmol/L (22.0-26.0) 05/11/17 13:58 ABG Total CO2 23.2 MMOL/L (21.0-29.0) 05/11/17 13:58 ABG O2 Saturation 98 % (94-98) 05/11/17 13:58 ABG Base Excess 0.5 mmol/L (-2.0-3.0) 05/11/17 13:58 Ilia Test POSITIVE 05/11/17 13:58 VBG pH 7.425 (7.31-7.41) H 05/11/17 04:54 VBG pCO2 21.8 mmHg (41-51) L 05/08/17 17:00 VBG pO2 81.4 mmHg (25-47) H 05/08/17 17:00 VBG HCO3 7.2 mmol/L (23-28) L 05/08/17 17:00 VBG Total CO2 7.8 mmol/L (24-29) L 05/08/17 17:00 VBG O2 Saturation 93.6 % (60-80) H 05/08/17 17:00 VBG Base Excess -20.1 mmol/L (-2 - +2) L 05/08/17 17:00 Ionized Calcium 1.08 mmol/L (1.15-1.33) L 05/11/17 04:54 O2 Delivery Device NASAL CANNULA 05/11/17 13:58 O2 Liters/Min 2.00 LPM 05/11/17 13:58 Sodium 132 mmol/L (135-145) L 05/12/17 06:36 Potassium 3.9 mmol/L (3.5-5.0) 05/12/17 06:36 Chloride 99 mmol/L (101-111) L 05/12/17 06:36 Carbon Dioxide 25 mmol/L (21-32) 05/12/17 06:36 Anion Gap 8.0 (6-13) 05/12/17 06:36 BUN 18 mg/dL (6-20) 05/12/17 06:36 Creatinine 0.4 mg/dL (0.4-1.0) 05/12/17 06:36 Estimated GFR (MDRD) 182 (>89) 05/12/17 06:36 Glucose 193 mg/dL (70-100) H 05/12/17 06:36 POC Whole Bld Glucose 214 mg/dL (70 - 100) H 05/12/17 16:33 Glycated Hemoglobin 12.7 % (4.6-6.2) H 05/09/17 12:30 Estim Average Glucose 318 (70-100) H 05/09/17 12:30 Calcium 8.1 mg/dL (8.5-10.3) L 05/12/17 06:36 Phosphorus 1.9 mg/dL (2.5-4.6) L 05/11/17 04:54 Magnesium 1.5 mg/dL (1.7-2.8) L 05/11/17 04:54 Total Bilirubin 2.0 mg/dL (0.2-1.0) H 05/08/17 13:45 AST 25 IU/L (10-42) 05/08/17 13:45 ALT 38 IU/L (10-60) 05/08/17 13:45 Alkaline Phosphatase 166 IU/L (42-121) H 05/08/17 13:45 Troponin I < 0.04 ng/mL (<0.49) 05/11/17 14:55 B-Natriuretic Peptide 95 pg/mL (5-100) 05/11/17 14:55 Total Protein 8.7 g/dL (6.7-8.2) H 05/08/17 13:45 Albumin 2.7 g/dL (3.2-5.5) L 05/11/17 04:54 Globulin 3.9 g/dL (2.1-4.2) 05/08/17 13:45 Albumin/Globulin Ratio 1.2 (1.0-2.2) 05/08/17 13:45 Lipase 11 U/L (22-51) L 05/08/17 13:45 HCG, Quant 2.15 mIU/mL 05/08/17 13:45 Urine Color YELLOW 05/08/17 15:03 Urine Clarity CLEAR (CLEAR) 05/08/17 15:03 Urine pH 5.5 PH (5.0-7.5) 05/08/17 15:03 Ur Specific [place] 1.025 (1.002-1.030) 05/08/17 15:03 Urine Protein NEGATIVE mg/dL (NEGATIVE) 05/08/17 15:03 Urine Glucose (UA) 500 mg/dL (NEGATIVE) H 05/08/17 15:03 Urine Ketones >=80 mg/dL (NEGATIVE) H 05/08/17 15:03 Urine Occult Blood SMALL (NEGATIVE) H 05/08/17 15:03 Urine Nitrite NEGATIVE (NEGATIVE) 05/08/17 15:03 Urine Bilirubin NEGATIVE (NEGATIVE) 05/08/17 15:03 Urine Urobilinogen 0.2 (NORMAL) E.U./dL (NORMAL) 05/08/17 15:03 Ur Leukocyte Esterase NEGATIVE (NEGATIVE) 05/08/17 15:03 Urine RBC 0-5 /HPF (0-5) 05/08/17 15:03 Urine WBC 0-3 /HPF (0-5) 05/08/17 15:03 Ur Squamous Epith Cells MOD Squamous (<= Few) H 05/08/17 15:03 Urine Bacteria Few /HPF (None Seen) 05/08/17 15:03 Ur Microscopic Review INDICATED 05/08/17 15:03 Urine Culture Comments NOT INDICATED 05/08/17 15:03 Urine Opiates Screen NEGATIVE (NEGATIVE) 05/08/17 15:03 Ur Oxycodone Screen NEGATIVE (NEGATIVE) 05/08/17 15:03 Urine Methadone Screen NEGATIVE (NEGATIVE) 05/08/17 15:03 Ur Propoxyphene Screen NEGATIVE (NEGATIVE) 05/08/17 15:03 Ur Barbiturates Screen NEGATIVE (NEGATIVE) 05/08/17 15:03 Ur Tricyclics Screen NEGATIVE (NEGATIVE) 05/08/17 15:03 Ur Phencyclidine Scrn NEGATIVE (NEGATIVE) 05/08/17 15:03 Ur Amphetamine Screen NEGATIVE (NEGATIVE) 05/08/17 15:03 U Methamphetamines Scrn POSITIVE (NEGATIVE) H 05/08/17 15:03 U Benzodiazepines Scrn NEGATIVE (NEGATIVE) 05/08/17 15:03 Urine Cocaine Screen NEGATIVE (NEGATIVE) 05/08/17 15:03 U Cannabinoids Screen NEGATIVE (NEGATIVE) 05/08/17 15:03 Serum Ketones SMALL (NEGATIVE) H 05/10/17 18:45 - Procedures Procedures: Procedures DETACHMENT AT RIGHT 1ST TOE, LOW, OPEN APPROACH (03/14/17) INSERT INFUSION DEV IN R INT JUGULAR VEIN, PERC (04/21/16) INSERTION OF INFUSION DEV INTO R SUBCLAV VEIN, PERC APPROACH (03/14/17) INSERTION OF INFUSION DEV INTO SUP VENA CAVA, PERC APPROACH (04/30/17) INSERTION OF INFUSION DEVICE INTO R ATRIUM, PERC APPROACH (12/04/15) TRANSFUSE NONAUT RED BLOOD CELLS IN PERIPH VEIN, PERC (01/22/17) ULTRASONOGRAPHY OF RIGHT JUGULAR VEINS, GUIDANCE (04/21/16)
[2017-05-12] MEDS: AMITRIPTYLINE 25 MG TABLET PO SCH (21:25)
[2017-05-12] MEDS: DOCUSATE SODIUM 250 MG CAPSULE PO SCH (21:25)
[2017-05-13] MEDS: oxyCODONE 5 MG TABLET PO PRN ×6 (00:08→23:39)
[2017-05-13] MEDS: ACETAMINOPHEN 1,000 MG/100 ML 100 ML IV PRN (00:09)
[2017-05-13] MEDS: SODIUM CHLORIDE FLUSH 0.9% 10 ML SYRINGE IVP PRN (00:09)
[2017-05-13] MEDS: SODIUM CHLORIDE FLUSH 0.9% 10 ML SYRINGE IVP SCH ×4 (00:29→23:40)
[2017-05-13] MEDS: NYSTATIN POWDER 15 GM TOP SCH ×3 (02:21→20:54)
[2017-05-13] MEDS: IBUPROFEN 600 MG TABLET PO PRN ×2 (05:26→12:03)
[2017-05-13] MEDS: GABAPENTIN 300 MG CAPSULE PO SCH ×3 (05:26→21:00)
[2017-05-13] MEDS: IPRATROPIUM/ALBUTEROL 3 ML NEB INH PRN (08:01)
[2017-05-13] MEDS: INSULIN ASPART 300 UNIT/3 ML PEN SUBQ SCH ×6 (09:57→20:31)
[2017-05-13] MEDS: METOPROLOL SUCCINATE 25 MG TABLET PO SCH ×2 (09:58→20:54)
[2017-05-13] MEDS: CEFEPIME 2 GM in SODIUM CHLORIDE 0.9% MINIBAG 100 ML IV SCH (09:58)
[2017-05-13] MEDS: INSULIN GLARGINE 300 UNIT/3 ML PEN SUBQ SCH ×2 (09:58→20:57)
[2017-05-13] MEDS: OXYBUTYNIN 5MG TABLET PO SCH ×2 (09:59→20:54)
[2017-05-13] MEDS: CILOSTAZOL 100 MG TABLET PO SCH ×2 (09:59→20:54)
[2017-05-13] MEDS: cloNIDine 0.1 MG TABLET PO SCH ×2 (09:59→20:54)
[2017-05-13] MEDS: DULoxetine 20 MG CAPSULE PO SCH (09:59)
[2017-05-13] MEDS: FERROUS SULFATE 325 MG TABLET PO SCH (09:59)
[2017-05-13] MEDS: DOCUSATE SODIUM 250 MG CAPSULE PO SCH (09:59)
[2017-05-13] MEDS: diltiaZEM CD 120 MG CAPSULE PO SCH (09:59)
[2017-05-13 10:44] LABS: HGB - HEMOGLOBIN 10.3 g/dL (12.0-16.0); MEAN CORPUSCULAR HEMOGLOBIN 24.8 pg (27.0-31.0); MEAN CORPUSCULAR HGB CONC 32.3 g/dL (32.0-36.0); MEAN CORPUSCULAR VOLUME 76.7 fL (81.0-99.0); MEAN PLATELET VOLUME 7.9 fL (7.9-10.8); RED BLOOD COUNT 4.16 10^6/uL (4.20-5.40); RED CELL DISTRIBUTION WIDTH 18.1 % (12.0-15.0); WHITE BLOOD COUNT 7.9 x10^3/uL (4.8-10.8)
[2017-05-13 10:52] LABS: CREATININE 0.3 mg/dL (0.4-1.0)
[2017-05-13] MEDS: levoFLOXacin 250 MG TABLET PO SCH (11:49)
[2017-05-13] MEDS: clonazePAM 0.5 MG TABLET PO PRN (13:36)
[2017-05-13] MEDS: ACETAMINOPHEN 325 MG TABLET PO PRN ×2 (13:37→21:03)
--- NOTE | 2017-05-13 19:36 | PROVIDER PROGRESS NOTE ---
Assessment/Plan - Problem List (1) HCAP (healthcare-associated pneumonia) Assessment/Plan: Patient still requiring 1.5L of O2 She states she is still coughing and feels very short of breath Admits to pleurtic left sided chest pain On Cefepime IV and IVFs Continue treatment likely needs 1-2 more days Wean O2 (2) DKA (diabetic ketoacidoses) Qualifiers: Diabetes mellitus type: type 1 Diabetes mellitus complication detail: without coma Qualified Code(s): E10.10 - Type 1 diabetes mellitus with ketoacidosis without coma Assessment/Plan: Resolved On home dose of lantus and SS insulin DM diet BG elevated last night started additional novolog with meals this am BG checks ACHS (3) Chronic pain disorder Assessment/Plan: Stable On oxycodone, gabapentin and NSAIDs Last night nurse found syringes in the patients room Concern for possible drug use given her history We will restrict visitors (4) Homeless single person Assessment/Plan: Social work consulted patient unable to stay at long-term due to behavioral issues Given resources for other shelters off [place] (5) 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 Assessment/Plan: Stable Continued on home medications - Current Meds Current Meds: Current Medications Generic Name Dose Route Start Last Admin Trade Name Freq PRN Reason Stop Dose Admin Acetaminophen 650 mg 05/13/17 10:21 05/13/17 13:37 Tylenol PO 650 mg Q4HR PRN Administration Pain or Fever > 38C (100.4F) Albuterol/Ipratropium 3 ml 05/11/17 13:32 05/13/17 08:01 Duoneb INH 3 ml Q4HR PRN Administration Wheezing Amitriptyline HCl 50 mg 05/08/17 21:00 05/12/17 21:25 Elavil PO Not Given QPM SYLVIA Cilostazol 100 mg 05/08/17 21:00 05/13/17 09:59 Pletal PO 100 mg BID SYLVIA Administration Clonazepam 1 mg 05/08/17 14:51 05/13/17 13:36 Klonopin PO 1 mg BID PRN Administration Anxiety Clonidine HCl 0.1 mg 05/08/17 21:00 05/13/17 09:59 Catapres PO 0.1 mg BID SYLVIA Administration Diltiazem HCl 120 mg 05/09/17 09:00 05/13/17 09:59 Cardizem Cd PO 120 mg DAILY SYLVIA Administration Docusate Sodium 250 - 500 mg 05/12/17 21:00 05/13/17 09:59 Colace 250mg Capsule PO 250 mg DAILY SYLVIA Administration Duloxetine HCl 60 mg 05/09/17 09:00 05/13/17 09:59 Cymbalta PO 60 mg DAILY SYLVIA Administration Ferrous Sulfate 325 mg 05/09/17 09:00 05/13/17 09:59 Feosol PO 325 mg DAILY SYLVIA Administration Gabapentin 600 mg 05/08/17 22:00 05/13/17 13:37 Neurontin PO 600 mg TID SYLVIA Administration Ibuprofen 600 mg 05/08/17 14:44 05/13/17 12:03 Motrin PO 600 mg Q6HR PRN Administration Pain 1 to 4 Insulin Aspart 3 - 11 unit 05/09/17 21:38 05/13/17 17:38 Novolog SUBQ Not Given 0800,1200,1700,2100 [facility] Protocol Insulin Glargine 70 unit 05/10/17 12:29 05/13/17 09:58 Lantus Solostar SUBQ 70 unit BID SYLVIA Administration Insulin Human Regular 15 unit 05/10/17 12:30 05/10/17 17:26 Novolin R SUBQ 15 unit Q1H PRN Administration Hyperglycemica Levofloxacin 750 mg 05/13/17 11:00 05/13/17 11:49 Levaquin PO 750 mg DAILY SYLVIA Administration Metoprolol Succinate 25 mg 05/08/17 21:00 05/13/17 09:58 Toprol Xl PO 25 mg BID SYLVIA Administration Nystatin 1 applic 05/13/17 01:00 05/13/17 09:59 Nystop TOP 1 applic BID SYLVIA Administration Oxybutynin Chloride 5 mg 05/08/17 21:00 05/13/17 09:59 Ditropan PO 5 mg BID SYLVIA Administration Oxycodone HCl 5 mg 05/08/17 14:44 05/13/17 19:26 Roxicodone PO 5 mg Q4HR PRN Administration Pain 5 to 7 Prochlorperazine Edisylate 10 mg 05/08/17 16:27 05/08/17 18:53 Compazine Inj IVP 10 mg Q4HR PRN Administration Nausea / Vomiting Sodium Chloride 10 ml 05/08/17 17:00 05/13/17 17:38 Normal Saline Flush 0.9% IVP Not Given 0100,0900,1700 SYLVIA Sodium Chloride 10 ml 05/08/17 14:44 05/13/17 00:09 Normal Saline Flush 0.9% IVP 10 ml PRN PRN Administration NEEDED PER PROVIDER ORDERS Temazepam 15 mg 05/08/17 14:44 05/11/17 21:24 Restoril PO 15 mg QPM PRN Administration Insomnia - Lab Result Lab results reviewed: Yes Fish Bone Diagrams: 05/14/17 06:10 05/14/17 06:10 - Diagnostic Imaging Results Diagnostic Imaging Results: Final report reviewed - Additional Planning Condition/Complexity: Guarded My Orders: My Active Orders 05/12/17 21:00 Docusate Sodium 250Mg Capsule [Colace 250Mg Capsule] 250 - 500 mg PO DAILY 05/13/17 10:21 Acetaminophen [Tylenol] 650 mg PO Q4HR PRN 05/13/17 11:00 levoFLOXacin [Levaquin] 750 mg PO DAILY 05/14/17 05:00 CBC - COMP BLD CT W/AUTO DIFF [HEME] DAILYLAB CMP, RFLX TO IONIZED CA IF [CHEM] DAILYLAB 05/14/17 08:00 Insulin Aspart [NovoLOG] 6 unit SUBQ TIDWM Plan Discussed with:: Patient Time Spent: 31-60 minutes Subjective - Subjective Patient Reports: Cough (Persistent), Chest Pain (Pleuritic left sided), Dizzines , Fatigue, Headache, Shortness of Breath (With exertion) Nursing Reports: No Complaints Objective Vital Signs: Vital Signs - 24 hr 05/12/17 05/13/17 05/13/17 20:30 00:07 04:56 Temperature 36.8 C 36.5 C Heart Rate 118 H Heart Rate [ 88 113 H Brachial] Respiratory 20 18 18 Rate Blood Pressure 114/73 116/56 L [Right Brachial artery] O2 Saturation 94 91 L 05/13/17 05/13/17 05/13/17 08:01 14:40 15:43 Temperature 37.5 C 36.6 C Heart Rate 95 Heart Rate [ 111 H 86 Brachial] Respiratory 18 19 20 Rate Blood Pressure 129/86 H 99/53 L [Right Brachial artery] O2 Saturation 100 92 Oxygen O2 Source Nasal cannula I&O (Last 24 Hrs): Intake and Output Totals x24h 05/11/17 05/12/17 05/13/17 23:59 23:59 23:59 Intake Total 4477.583 4319 2740 Balance 5141.583 4319 2740 General: Alert, Oriented x3, Mild distress (Anxious, ill appearing) HEENT: Atraumatic, PERRLA, EOMI, Other (dry) Neck: Supple, No JVD, No thyromegaly, +2 carotid pulse wo bruit, No LAD Lymphatic: no adenopathy Neuro: Alert, Non Focal, CN 2-12 Grossly Intact, Oriented Times 3 Cardiovascular: No murmurs, Other (Tachycardic) Respiratory: Chest non-tender, No respiratory distress, Wheezes, Rhonchi ( Bibasilar) Abdomen: Normal bowel sounds, Soft, No tenderness, No hepatospenomegaly, No masses Extremities: No clubbing, No cyanosis, No edema, Normal pulses Skin: No rashes, No breakdown - Results Results: Laboratory Results WBC 7.9 x10^3/uL (4.8-10.8) 05/13/17 10:35 RBC 4.16 10^6/uL (4.20-5.40) L 05/13/17 10:35 Hgb 10.3 g/dL (12.0-16.0) L 05/13/17 10:35 Hct 31.9 % (37.0-47.0) L 05/13/17 10:35 MCV 76.7 fL (81.0-99.0) L 05/13/17 10:35 MCH 24.8 pg (27.0-31.0) L 05/13/17 10:35 MCHC 32.3 g/dL (32.0-36.0) 05/13/17 10:35 RDW 18.1 % (12.0-15.0) H 05/13/17 10:35 Plt Count 155 10^3/uL (130-450) 05/13/17 10:35 MPV 7.9 fL (7.9-10.8) 05/13/17 10:35 Neut # 10.7 10^3/uL (1.5-6.6) H 05/08/17 13:45 Lymph # 1.8 10^3/uL (1.5-3.5) 05/08/17 13:45 [place] # 0.3 10^3/uL (0.0-1.0) 05/08/17 13:45 Eos # 0.0 10^3/uL (0.0-0.7) 05/08/17 13:45 Baso # 0.1 10^3/uL (0.0-0.1) 05/08/17 13:45 Absolute Nucleated RBC 0.00 x10^3/uL 05/08/17 13:45 Nucleated RBC % 0.0 /100WBC 05/08/17 13:45 D-Dimer 319.9 ng/mL (200.0-255.0) H 05/11/17 14:55 Bld Gas Analysis Time 1403 05/11/17 13:58 Sample Site LEFT RADIAL 05/11/17 13:58 ABG pH 7.54 (7.35-7.45) H 05/11/17 13:58 ABG pCO2 27 mmHg (34-45) L 05/11/17 13:58 ABG pO2 143 mmHg (80-100) H 05/11/17 13:58 ABG HCO3 22.3 mmol/L (22.0-26.0) 05/11/17 13:58 ABG Total CO2 23.2 MMOL/L (21.0-29.0) 05/11/17 13:58 ABG O2 Saturation 98 % (94-98) 05/11/17 13:58 ABG Base Excess 0.5 mmol/L (-2.0-3.0) 05/11/17 13:58 Ilia Test POSITIVE 05/11/17 13:58 VBG pH 7.425 (7.31-7.41) H 05/11/17 04:54 VBG pCO2 21.8 mmHg (41-51) L 05/08/17 17:00 VBG pO2 81.4 mmHg (25-47) H 05/08/17 17:00 VBG HCO3 7.2 mmol/L (23-28) L 05/08/17 17:00 VBG Total CO2 7.8 mmol/L (24-29) L 05/08/17 17:00 VBG O2 Saturation 93.6 % (60-80) H 05/08/17 17:00 VBG Base Excess -20.1 mmol/L (-2 - +2) L 05/08/17 17:00 Ionized Calcium 1.08 mmol/L (1.15-1.33) L 05/11/17 04:54 O2 Delivery Device NASAL CANNULA 05/11/17 13:58 O2 Liters/Min 2.00 LPM 05/11/17 13:58 Sodium 134 mmol/L (135-145) L 05/13/17 10:35 Potassium 3.5 mmol/L (3.5-5.0) 05/13/17 10:35 Chloride 102 mmol/L (101-111) 05/13/17 10:35 Carbon Dioxide 23 mmol/L (21-32) 05/13/17 10:35 Anion Gap 9.0 (6-13) 05/13/17 10:35 BUN 17 mg/dL (6-20) 05/13/17 10:35 Creatinine 0.3 mg/dL (0.4-1.0) L 05/13/17 10:35 Estimated GFR (MDRD) 253 (>89) 05/13/17 10:35 Glucose 249 mg/dL (70-100) H 05/13/17 10:35 POC Whole Bld Glucose 92 mg/dL (70 - 100) 05/13/17 16:43 Glycated Hemoglobin 12.7 % (4.6-6.2) H 05/09/17 12:30 Estim Average Glucose 318 (70-100) H 05/09/17 12:30 Calcium 8.0 mg/dL (8.5-10.3) L 05/13/17 10:35 Phosphorus 1.9 mg/dL (2.5-4.6) L 05/11/17 04:54 Magnesium 1.5 mg/dL (1.7-2.8) L 05/11/17 04:54 Total Bilirubin 2.0 mg/dL (0.2-1.0) H 05/08/17 13:45 AST 25 IU/L (10-42) 05/08/17 13:45 ALT 38 IU/L (10-60) 05/08/17 13:45 Alkaline Phosphatase 166 IU/L (42-121) H 05/08/17 13:45 Troponin I < 0.04 ng/mL (<0.49) 05/11/17 14:55 B-Natriuretic Peptide 95 pg/mL (5-100) 05/11/17 14:55 Total Protein 8.7 g/dL (6.7-8.2) H 05/08/17 13:45 Albumin 2.7 g/dL (3.2-5.5) L 05/11/17 04:54 Globulin 3.9 g/dL (2.1-4.2) 05/08/17 13:45 Albumin/Globulin Ratio 1.2 (1.0-2.2) 05/08/17 13:45 Lipase 11 U/L (22-51) L 05/08/17 13:45 HCG, Quant 2.15 mIU/mL 05/08/17 13:45 Urine Color YELLOW 05/08/17 15:03 Urine Clarity CLEAR (CLEAR) 05/08/17 15:03 Urine pH 5.5 PH (5.0-7.5) 05/08/17 15:03 Ur Specific [place] 1.025 (1.002-1.030) 05/08/17 15:03 Urine Protein NEGATIVE mg/dL (NEGATIVE) 05/08/17 15:03 Urine Glucose (UA) 500 mg/dL (NEGATIVE) H 05/08/17 15:03 Urine Ketones >=80 mg/dL (NEGATIVE) H 05/08/17 15:03 Urine Occult Blood SMALL (NEGATIVE) H 05/08/17 15:03 Urine Nitrite NEGATIVE (NEGATIVE) 05/08/17 15:03 Urine Bilirubin NEGATIVE (NEGATIVE) 05/08/17 15:03 Urine Urobilinogen 0.2 (NORMAL) E.U./dL (NORMAL) 05/08/17 15:03 Ur Leukocyte Esterase NEGATIVE (NEGATIVE) 05/08/17 15:03 Urine RBC 0-5 /HPF (0-5) 05/08/17 15:03 Urine WBC 0-3 /HPF (0-5) 05/08/17 15:03 Ur Squamous Epith Cells MOD Squamous (<= Few) H 05/08/17 15:03 Urine Bacteria Few /HPF (None Seen) 05/08/17 15:03 Ur Microscopic Review INDICATED 05/08/17 15:03 Urine Culture Comments NOT INDICATED 05/08/17 15:03 Urine Opiates Screen NEGATIVE (NEGATIVE) 05/08/17 15:03 Ur Oxycodone Screen NEGATIVE (NEGATIVE) 05/08/17 15:03 Urine Methadone Screen NEGATIVE (NEGATIVE) 05/08/17 15:03 Ur Propoxyphene Screen NEGATIVE (NEGATIVE) 05/08/17 15:03 Ur Barbiturates Screen NEGATIVE (NEGATIVE) 05/08/17 15:03 Ur Tricyclics Screen NEGATIVE (NEGATIVE) 05/08/17 15:03 Ur Phencyclidine Scrn NEGATIVE (NEGATIVE) 05/08/17 15:03 Ur Amphetamine Screen NEGATIVE (NEGATIVE) 05/08/17 15:03 U Methamphetamines Scrn POSITIVE (NEGATIVE) H 05/08/17 15:03 U Benzodiazepines Scrn NEGATIVE (NEGATIVE) 05/08/17 15:03 Urine Cocaine Screen NEGATIVE (NEGATIVE) 05/08/17 15:03 U Cannabinoids Screen NEGATIVE (NEGATIVE) 05/08/17 15:03 Serum Ketones SMALL (NEGATIVE) H 05/10/17 18:45 - Procedures Procedures: Procedures DETACHMENT AT RIGHT 1ST TOE, LOW, OPEN APPROACH (03/14/17) INSERT INFUSION DEV IN R INT JUGULAR VEIN, PERC (04/21/16) INSERTION OF INFUSION DEV INTO R SUBCLAV VEIN, PERC APPROACH (03/14/17) INSERTION OF INFUSION DEV INTO SUP VENA CAVA, PERC APPROACH (04/30/17) INSERTION OF INFUSION DEVICE INTO R ATRIUM, PERC APPROACH (12/04/15) TRANSFUSE NONAUT RED BLOOD CELLS IN PERIPH VEIN, PERC (01/22/17) ULTRASONOGRAPHY OF RIGHT JUGULAR VEINS, GUIDANCE (04/21/16)
[2017-05-13] MEDS: AMITRIPTYLINE 25 MG TABLET PO SCH (20:54)
[2017-05-13] MEDS ORDERED: BENZOCAINE/MENTHOL LOZENGE MM PRN (23:21)
[2017-05-14] MEDS: IBUPROFEN 600 MG TABLET PO PRN ×2 (01:45→12:14)
[2017-05-14] MEDS: clonazePAM 0.5 MG TABLET PO PRN (01:45)
[2017-05-14] MEDS: GABAPENTIN 300 MG CAPSULE PO SCH ×2 (05:46→12:14)
[2017-05-14] MEDS: ACETAMINOPHEN 325 MG TABLET PO PRN ×2 (05:46→13:43)
[2017-05-14] MEDS: oxyCODONE 5 MG TABLET PO PRN ×3 (05:47→14:30)
[2017-05-14 06:37] LABS: BASOPHILS % (AUTO) 1.1 %; EOSINOPHILS % (AUTO) 1.9 %; HGB - HEMOGLOBIN 8.6 g/dL (12.0-16.0); LYMPHOCYTES % (AUTO) 27.9 %; MEAN CORPUSCULAR HEMOGLOBIN 24.2 pg (27.0-31.0); MEAN CORPUSCULAR HGB CONC 31.5 g/dL (32.0-36.0); MEAN CORPUSCULAR VOLUME 76.9 fL (81.0-99.0); MEAN PLATELET VOLUME 8.3 fL (7.9-10.8); MONOCYTES % (AUTO) 10.9 %; NEUTROPHILS % (AUTO) 58.2 %; PLT - PLATELET COUNT 224 10^3/uL (130-450); RED BLOOD COUNT 3.56 10^6/uL (4.20-5.40); RED CELL DISTRIBUTION WIDTH 18.3 % (12.0-15.0); WHITE BLOOD COUNT 8.1 x10^3/uL (4.8-10.8)
[2017-05-14 06:44] LABS: ALBUMIN 2.3 g/dL (3.2-5.5); ALBUMIN/GLOBULIN RATIO 0.7 (1.0-2.2); ALKALINE PHOSPHATASE 88 IU/L (42-121); ALT ALANINE AMINOTRANSFERASE 25 IU/L (10-60); AST ASPARTATE AMINOTRANSFERASE 25 IU/L (10-42); BILIRUBIN,TOTAL < 0.2 mg/dL (0.2-1.0); BUN - BLOOD UREA NITROGEN 18 mg/dL (6-20); CALCIUM 8.7 mg/dL (8.5-10.3); CARBON DIOXIDE - CO2 27 mmol/L (21-32); CHLORIDE 99 mmol/L (101-111); CREATININE 0.4 mg/dL (0.4-1.0); GFR - MDRD 182 (>89); GLUCOSE 70 mg/dL (70-100); SODIUM 135 mmol/L (135-145); TOTAL PROTEIN 5.5 g/dL (6.7-8.2)
[2017-05-14] MEDS ORDERED: INSULIN GLARGINE 300 UNIT/3 ML PEN SUBQ SCH (07:39)
[2017-05-14 07:40] LABS: ABNORMAL LYMPHS % (MANUAL) 0 %
[2017-05-14 07:42] LABS: BAND NEUTROPHILS % (MANUAL) 4 %; EOSINOPHILS # (MANUAL) 0.1 10^3/uL (0-0.7); LYMPHOCYTES # (MANUAL) 2.1 10^3/uL (1.5-3.5); LYMPHOCYTES % (MANUAL) 26 %; MONOCYTES # (MANUAL) 0.8 10^3/uL (0.0-1.0); NEUTROPHILS # (MANUAL) 5.1 10^3/uL (1.5-6.6); NEUTROPHILS % (MANUAL) 59 %
[2017-05-14 07:43] LABS: DIFFERENTIAL COMMENT MANUAL DIFFERENTIAL; PLATELET ESTIMATE, MANUAL NORMAL (130-450,000) (NORMAL); PLATELET MORPHOLOGY NORMAL APPEARANCE (NORMAL)
[2017-05-14] MEDS: NYSTATIN POWDER 15 GM TOP SCH (10:02)
[2017-05-14] MEDS: DOCUSATE SODIUM 250 MG CAPSULE PO SCH (10:03)
[2017-05-14] MEDS: METOPROLOL SUCCINATE 25 MG TABLET PO SCH (10:03)
[2017-05-14] MEDS: levoFLOXacin 250 MG TABLET PO SCH (10:03)
[2017-05-14] MEDS: diltiaZEM CD 120 MG CAPSULE PO SCH (10:03)
[2017-05-14] MEDS: FERROUS SULFATE 325 MG TABLET PO SCH (10:03)
[2017-05-14] MEDS: cloNIDine 0.1 MG TABLET PO SCH (10:03)
[2017-05-14] MEDS: OXYBUTYNIN 5MG TABLET PO SCH (10:03)
[2017-05-14] MEDS: CILOSTAZOL 100 MG TABLET PO SCH (10:03)
[2017-05-14] MEDS: DULoxetine 20 MG CAPSULE PO SCH (10:04)
[2017-05-14] MEDS: INSULIN ASPART 300 UNIT/3 ML PEN SUBQ SCH ×6 (10:04→19:25)
[2017-05-14] MEDS: SODIUM CHLORIDE FLUSH 0.9% 10 ML SYRINGE IVP SCH ×2 (10:06→19:25)
[2017-05-14] MEDS ORDERED: diphenhydrAMINE 25 MG CAPSULE PO STA (12:31)
--- NOTE | 2017-05-14 15:46 | Discharge Plan ---
Discharge Plan Disposition: Home, Self Care Condition: Fair Prescriptions: Ibuprofen [Motrin] 600 mg PO Q6HR PRN #60 tablet PRN Reason: Pain 1 to 4 Amitriptyline [Elavil] 50 mg PO QPM 30 Days #30 tablet Cilostazol [Pletal] 100 mg PO BID #30 tablet clonazePAM [KlonoPIN] 1 mg PO BID PRN #30 tablet PRN Reason: Anxiety cloNIDine [Catapres] 0.1 mg PO BID #60 tablet diltiaZEM CD [Cardizem Cd] 120 mg PO DAILY #30 capsule DULoxetine [Cymbalta] 60 mg PO DAILY #90 capsule Gabapentin 600 mg PO TID #90 capsule Insulin Aspart [NovoLOG] 12 unit SUBQ TIDWM #3 pen Insulin Glargine [Lantus Solostar] 70 unit SUBQ DAILY #10 pen Levofloxacin [Levaquin] 750 mg PO DAILY #5 tablet Methocarbamol [Robaxin] 500 mg PO BID PRN #30 tablet PRN Reason: Spasms Metoprolol Succinate [Toprol Xl] 25 mg PO BID #60 tablet Oxybutynin [Ditropan] 5 mg PO BID #60 tablet Syring-Needl,Disp,Insul,0.3 ml [Ultra Comfort] 1 each MC 5XD #90 disp.syrin Activity Restrictions: Activity as Tolerated Shower Restrictions: No Driving Restrictions: No Weight Bearing: Full Weight Instruction Topics: Pneumonia Additional Instructions or Follow Up instructions: You were admitted for diabetic ketoacidosis and improved with an insulin drip and IV fluids. Your blood glucose is now stable and you can be discharged home. I have printed on prescriptions for all of your medications including your insulin and insulin syringes. Please fill these and take your medications as directed. While you were hospitalized you also were found to have low oxygen saturation, cough and shortness of breath. On chest x-ray you were found to have a pneumonia and was started on Levaquin with which you had significant improvement and no longer require oxygen. You are being sent home with 5 days worth of antibiotics please complete this course to complete the treatment for pneumonia. No Smoking: If you smoke, Please STOP! Call for help.
--- NOTE | 2017-05-14 15:49 | DISCHARGE SUMMARY ---
Discharge Summary Admit Date: 05/08/17 Discharge Date: 05/14/17 Discharging Provider: Mason Mathews MD Primary Care Provider: None Code Status: Attempt Resuscitation Condition at Discharge: Fair Discharge Disposition: 01 Home, Self Care - DIAGNOSES Admission Diagnoses: 1. Diabetic ketoacidosis without coma 2. Chronic pain disorder 3. Homeless single person 4. 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 Type 1 diabetes mellitus uncontrolled: Stable 4. Chronic pain disorder: Stable 5. Homeless single person: Guarded 6. 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 Ms. 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 She has been attended to by our social workers multiple occasions and yet continues in her homeless/drug abuse pattern , seemingly voluntarily. She will once again be admitted to the intensive care unit, placed on an insulin drip, and we will correct her electrolyte abnormalities. - HOSPITAL COURSE Hospital Course: Patient was admitted to the intensive care unit and placed on an insulin drip the patient's DKA resolved within the next 24 hours. Patient was placed on Lantus 70 units twice daily and sliding scale insulin. The patient's blood sugars remained stable over the course of the following 24 hours. Patient's electrolytes were replaced and patient was once again counseled on need for compliance and offered director social service. The patient continues to be homeless and continues to make poor decisions and will likely continue to have recurrent hospitalizations despite our best efforts to provide her with resources. The patient was given prescriptions for all her medications including insulin as she stated that she was out of her medications. The patient did inquire regarding rehab placement however at this point patient does not have needs that would qualify her for rehab. The patient has unfortunately been kicked out of her previous fdc and is therefore homeless. The patient has failed to follow-up with her primary care physician and has been fired is a patient multiple times. Initially patient was to be discharged on 05/11/17 however patient became hypoxic and was complaining of cough and shortness of air. Patient underwent a workup with chest x-ray, ABG and CT angiogram of her lungs which was all negative. The following morning the patient became hypotensive and continued to have shortness of air, cough and had worsening hypoxia. At that time she was also diaphoretic and increasingly tachycardic. The patient underwent another chest x-ray which did show patchy bilateral airspace disease increased from her x-ray the day before. The patient's discharge was canceled on the prior day and she was started on treatment for healthcare associated pneumonia with cefepime IV. The patient slowly improved over the next 2 days and was weaned off of oxygen. On the day of discharge 05/14/17 the patient was ambulating the halls without requiring oxygen. She did undergo an O2 walk test which showed that her oxygen saturation was 96% walking over 100 feet. The patient continued to complain of dizziness and was very unhappy when she was told that she would be discharged she asked if she could stay for another day. When she was told that she was ready for discharge she became angry. She did ask several times for a prescription of pain medication however given her history of drug abuse and opioid-seeking behavior she was told that we cannot give her a prescription for pain medication. She was however given prescriptions for ibuprofen and gabapentin to help with her pain. The patient became very angry and upset and blamed us for not caring about her and her situation and letting her suffer in pain. The patient stated that she was interested in doing inpatient drug rehab and was given information by our director social service. The patient was discharged and given a private taxi to take her to her dwelling. - ALLERGIES Allergies/Adverse Reactions: Allergies Allergy/AdvReac Type Severity Reaction Status Date / Time codeine Allergy Hives Verified 03/14/17 13:38 hydrocodone Allergy Hives Verified 03/14/17 13:38 milk AdvReac Cramps Verified 03/14/17 13:38 nitrofurantoin AdvReac Headache Verified 03/14/17 13:38 [From Macrobid] PAPER TAPE AdvReac Unknown Uncoded 03/14/17 13:38 - MEDICATIONS Home Medications: Ambulatory Orders Medication Instructions Recorded Confirmed Amitriptyline [Elavil] 50 mg PO QPM 30 Days #30 tablet 03/20/18 Cilostazol [Pletal] 100 mg PO BID #30 tablet 05/11/17 DULoxetine [Cymbalta] 60 mg PO DAILY #90 capsule 05/11/17 Gabapentin 600 mg PO TID #90 capsule 05/11/17 Ibuprofen [Motrin] 600 mg PO Q6HR PRN #60 tablet 05/11/17 Insulin Aspart [NovoLOG] 12 unit SUBQ TIDWM #3 pen 05/11/17 Insulin Glargine [Lantus Solostar] 70 unit SUBQ DAILY #10 pen 05/11/17 Methocarbamol [Robaxin] 500 mg PO BID PRN #30 tablet 05/11/17 Metoprolol Succinate [Toprol Xl] 25 mg PO BID #60 tablet 05/11/17 Oxybutynin [Ditropan] 5 mg PO BID #60 tablet 05/11/17 Syring-Needl,Disp,Insul,0.3 ml 1 each MC 5XD #90 disp.syrin 05/11/17 [Ultra Comfort] cloNIDine [Catapres] 0.1 mg PO BID #60 tablet 05/11/17 clonazePAM [KlonoPIN] 1 mg PO BID PRN #30 tablet 05/11/17 diltiaZEM CD [Cardizem Cd] 120 mg PO DAILY #30 capsule 05/11/17 Levofloxacin [Levaquin] 750 mg PO DAILY #5 tablet 05/14/17 - PHYSICAL EXAM AT DISCHARGE General Appearance: positive: Alert, Moderate distress (very upset and angry) Eyes Bilateral: positive: Normal inspection, PERRL, EOMI, No lid inflammation, Conjunctivae nml, No scleral icterus ENT: positive: ENT inspection nml, Pharynx nml, No signs of dehydration. negative: Purulent nasal drainage, Pharyngeal erythema, Oral lesions Neck: positive: Nml inspection, Thyroid nml, No JVD, Trachea midline. negative : Thyromegaly, Lymphadenopathy (R), Lymphadenopathy (L), Stiff neck, Carotid bruit, Tracheal deviation Respiratory: positive: Chest non-tender, No respiratory distress, Rhonchi ( bilateral bases). negative: Wheezes Cardiovascular: positive: No murmur, No gallop, Tachycardia Peripheral Pulses: positive: 2+ Abdomen: positive: Non-tender, No organomegaly, Nml bowel sounds, No distention. negative: Guarding, Rebound, Hepatomegaly Back: positive: Nml inspection. negative: CVA tenderness (R), CVA tenderness (L ) Skin: positive: Color nml, Warm, Skin rash (bilateral legs) Extremities: positive: Non-tender, Full ROM, Nml appearance, No pedal edema Neurologic/Psychiatric: positive: Oriented x3, CN's nml (2-12), Motor nml, Sensation nml, Mood/affect nml - LABS Result Diagrams: 05/14/17 06:10 05/14/17 06:10 Other Lab Results: Laboratory Results WBC 8.1 x10^3/uL (4.8-10.8) 05/14/17 06:10 RBC 3.56 10^6/uL (4.20-5.40) L 05/14/17 06:10 Hgb 8.6 g/dL (12.0-16.0) L 05/14/17 06:10 Hct 27.4 % (37.0-47.0) L 05/14/17 06:10 MCV 76.9 fL (81.0-99.0) L 05/14/17 06:10 MCH 24.2 pg (27.0-31.0) L 05/14/17 06:10 MCHC 31.5 g/dL (32.0-36.0) L 05/14/17 06:10 RDW 18.3 % (12.0-15.0) H 05/14/17 06:10 Plt Count 224 10^3/uL (130-450) 05/14/17 06:10 MPV 8.3 fL (7.9-10.8) 05/14/17 06:10 Neut # Not Reportable 05/14/17 06:10 Lymph # Not Reportable 05/14/17 06:10 [place] # Not Reportable 05/14/17 06:10 Eos # Not Reportable 05/14/17 06:10 Baso # Not Reportable 05/14/17 06:10 Absolute Nucleated RBC Not Reportable 05/14/17 06:10 Total Counted 100 05/14/17 06:10 Band Neuts % (Manual) 4 % (0-10) 05/14/17 06:10 Abnorm Lymph % (Manual) 0 % 05/14/17 06:10 Nucleated RBC % Not Reportable 05/14/17 06:10 Neutrophils # (Manual) 5.1 10^3/uL (1.5-6.6) 05/14/17 06:10 Lymphocytes # (Manual) 2.1 10^3/uL (1.5-3.5) 05/14/17 06:10 Monocytes # (Manual) 0.8 10^3/uL (0.0-1.0) 05/14/17 06:10 Eosinophils # (Manual) 0.1 10^3/uL (0-0.7) 05/14/17 06:10 Basophils # (Manual) 0.0 10^3/uL (0-0.1) 05/14/17 06:10 Differential Comment MANUAL DIFFERENTIAL 05/14/17 06:10 Manual Slide Review Indicated 05/14/17 06:10 Platelet Estimate NORMAL (130-450,000) (NORMAL) 05/14/17 06:10 Platelet Morphology NORMAL APPEARANCE (NORMAL) 05/14/17 06:10 RBC Morph Micro Appear 1+ ANISOCYTOSIS (NORMAL) 1+ POLYCHROMASIA (NORMAL) 05/14/17 06:10 RBC Morph Micro Appear 1+ ANISOCYTOSIS (NORMAL) 1+ POLYCHROMASIA (NORMAL) 05/14/17 06:10 D-Dimer 319.9 ng/mL (200.0-255.0) H 05/11/17 14:55 Bld Gas Analysis Time 1403 05/11/17 13:58 Sample Site LEFT RADIAL 05/11/17 13:58 ABG pH 7.54 (7.35-7.45) H 05/11/17 13:58 ABG pCO2 27 mmHg (34-45) L 05/11/17 13:58 ABG pO2 143 mmHg (80-100) H 05/11/17 13:58 ABG HCO3 22.3 mmol/L (22.0-26.0) 05/11/17 13:58 ABG Total CO2 23.2 MMOL/L (21.0-29.0) 05/11/17 13:58 ABG O2 Saturation 98 % (94-98) 05/11/17 13:58 ABG Base Excess 0.5 mmol/L (-2.0-3.0) 05/11/17 13:58 Ilia Test POSITIVE 05/11/17 13:58 VBG pH 7.425 (7.31-7.41) H 05/11/17 04:54 VBG pCO2 21.8 mmHg (41-51) L 05/08/17 17:00 VBG pO2 81.4 mmHg (25-47) H 05/08/17 17:00 VBG HCO3 7.2 mmol/L (23-28) L 05/08/17 17:00 VBG Total CO2 7.8 mmol/L (24-29) L 05/08/17 17:00 VBG O2 Saturation 93.6 % (60-80) H 05/08/17 17:00 VBG Base Excess -20.1 mmol/L (-2 - +2) L 05/08/17 17:00 Ionized Calcium 1.08 mmol/L (1.15-1.33) L 05/11/17 04:54 O2 Delivery Device NASAL CANNULA 05/11/17 13:58 O2 Liters/Min 2.00 LPM 05/11/17 13:58 Sodium 135 mmol/L (135-145) 05/14/17 06:10 Potassium 4.3 mmol/L (3.5-5.0) 05/14/17 06:10 Chloride 99 mmol/L (101-111) L 05/14/17 06:10 Carbon Dioxide 27 mmol/L (21-32) 05/14/17 06:10 Anion Gap 9.0 (6-13) 05/14/17 06:10 BUN 18 mg/dL (6-20) 05/14/17 06:10 Creatinine 0.4 mg/dL (0.4-1.0) 05/14/17 06:10 Estimated GFR (MDRD) 182 (>89) 05/14/17 06:10 Glucose 70 mg/dL (70-100) 05/14/17 06:10 POC Whole Bld Glucose 124 mg/dL (70 - 100) H 05/14/17 11:36 Glycated Hemoglobin 12.7 % (4.6-6.2) H 05/09/17 12:30 Estim Average Glucose 318 (70-100) H 05/09/17 12:30 Calcium 8.7 mg/dL (8.5-10.3) 05/14/17 06:10 Ionized Calcium NO 05/14/17 06:10 Phosphorus 1.9 mg/dL (2.5-4.6) L 05/11/17 04:54 Magnesium 1.5 mg/dL (1.7-2.8) L 05/11/17 04:54 Total Bilirubin < 0.2 mg/dL (0.2-1.0) L 05/14/17 06:10 AST 25 IU/L (10-42) 05/14/17 06:10 ALT 25 IU/L (10-60) 05/14/17 06:10 Alkaline Phosphatase 88 IU/L (42-121) 05/14/17 06:10 Troponin I < 0.04 ng/mL (<0.49) 05/11/17 14:55 B-Natriuretic Peptide 95 pg/mL (5-100) 05/11/17 14:55 Total Protein 5.5 g/dL (6.7-8.2) L 05/14/17 06:10 Albumin 2.3 g/dL (3.2-5.5) L 05/14/17 06:10 Globulin 3.2 g/dL (2.1-4.2) 05/14/17 06:10 Albumin/Globulin Ratio 0.7 (1.0-2.2) L 05/14/17 06:10 Lipase 11 U/L (22-51) L 05/08/17 13:45 HCG, Quant 2.15 mIU/mL 05/08/17 13:45 Urine Color YELLOW 05/08/17 15:03 Urine Clarity CLEAR (CLEAR) 05/08/17 15:03 Urine pH 5.5 PH (5.0-7.5) 05/08/17 15:03 Ur Specific [place] 1.025 (1.002-1.030) 05/08/17 15:03 Urine Protein NEGATIVE mg/dL (NEGATIVE) 05/08/17 15:03 Urine Glucose (UA) 500 mg/dL (NEGATIVE) H 05/08/17 15:03 Urine Ketones >=80 mg/dL (NEGATIVE) H 05/08/17 15:03 Urine Occult Blood SMALL (NEGATIVE) H 05/08/17 15:03 Urine Nitrite NEGATIVE (NEGATIVE) 05/08/17 15:03 Urine Bilirubin NEGATIVE (NEGATIVE) 05/08/17 15:03 Urine Urobilinogen 0.2 (NORMAL) E.U./dL (NORMAL) 05/08/17 15:03 Ur Leukocyte Esterase NEGATIVE (NEGATIVE) 05/08/17 15:03 Urine RBC 0-5 /HPF (0-5) 05/08/17 15:03 Urine WBC 0-3 /HPF (0-5) 05/08/17 15:03 Ur Squamous Epith Cells MOD Squamous (<= Few) H 05/08/17 15:03 Urine Bacteria Few /HPF (None Seen) 05/08/17 15:03 Ur Microscopic Review INDICATED 05/08/17 15:03 Urine Culture Comments NOT INDICATED 05/08/17 15:03 Urine Opiates Screen NEGATIVE (NEGATIVE) 05/08/17 15:03 Ur Oxycodone Screen NEGATIVE (NEGATIVE) 05/08/17 15:03 Urine Methadone Screen NEGATIVE (NEGATIVE) 05/08/17 15:03 Ur Propoxyphene Screen NEGATIVE (NEGATIVE) 05/08/17 15:03 Ur Barbiturates Screen NEGATIVE (NEGATIVE) 05/08/17 15:03 Ur Tricyclics Screen NEGATIVE (NEGATIVE) 05/08/17 15:03 Ur Phencyclidine Scrn NEGATIVE (NEGATIVE) 05/08/17 15:03 Ur Amphetamine Screen NEGATIVE (NEGATIVE) 05/08/17 15:03 U Methamphetamines Scrn POSITIVE (NEGATIVE) H 05/08/17 15:03 U Benzodiazepines Scrn NEGATIVE (NEGATIVE) 05/08/17 15:03 Urine Cocaine Screen NEGATIVE (NEGATIVE) 05/08/17 15:03 U Cannabinoids Screen NEGATIVE (NEGATIVE) 05/08/17 15:03 Serum Ketones SMALL (NEGATIVE) H 05/10/17 18:45 - DIAGNOSTIC IMAGING Diagnostic Imaging Results: Final report reviewed Diagnostic Imaging Results Comments: TWO VIEW CHEST: 05/11/2017 CLINICAL INDICATION: Hypoxia. FINDINGS Frontal and lateral views of the chest are compared to previous film of 2017. The cardiac silhouette is not enlarged. There is linear atelectasis at the bases. No effusion or pneumothorax is present. IMPRESSION: PATCHY BASILAR ATELECTASIS. EXAM: [id number] CT/CHTANG ([id number]) EXAM: CT ANGIOGRAM CHEST EXAM DATE: 05/11/2017 04:12 PM. CLINICAL HISTORY: Hypoxia and elevated D-dimer. COMPARISON: 01/25/2017. TECHNIQUE: Routine helical imaging was performed through the chest in the pulmonary arterial phase. IV Contrast: 80 cc of Isovue-300. Reconstructions: Coronal 3-D MIP reconstructions.Sagittal and coronal. In accordance with CT protocol optimization, one or more of the following dose reduction techniques were utilized for this exam: automated exposure control, adjustment of mA and/or KV based on patient size, or use of iterative reconstructive technique. FINDINGS: Pulmonary Arteries: Diagnostic quality: Adequate through the segmental arteries. No evidence for acute or chronic pulmonary emboli. RV/LV is within normal limits. There is no interventricular septal bowing. There is no reflux of contrast material in the IVC. Lungs/Pleura: Mild atelectasis in the bases. Mild mosaic lung attenuation. No consolidation, nodules, or edema. Tiny effusions. No pneumothorax. Mediastinum: Normal. No cardiac enlargement or adenopathy. Thoracic Aorta: Unremarkable. Upper Abdomen: Unremarkable. Other: None. IMPRESSION: 1. No pulmonary emboli. 2. No aortic aneurysm or dissection. 3. Mild atelectasis in the bases with tiny pleural effusions. EXAM: [id number] [id number] ([id number]) FRONTAL CHEST: 05/12/2017 CLINICAL INDICATION: Worsening hypoxia and shortness of breath. COMPARISON: CT and plain film 05/11/2017. FINDINGS: Frontal view of the chest demonstrates a normal cardiac silhouette. Patchy bilateral airspace disease has increased. No effusion or pneumothorax is present. IMPRESSION: PATCHY BILATERAL AIRSPACE DISEASE, INCREASED FROM PREVIOUS. - FOLLOW UP Follow Up: Patient being discharged with oral antibiotics for pneumonia that she will take for 5 more days. She is also been given prescriptions for her insulin and insulin equipment. She will also be given prescriptions for all of her other medications. The patient was given information on how to get into an inpatient drug rehab however she stated she was going to go back to the street at get high with meth because we have not done anything to help her. - TIME SPENT Time Spent in Discharge (Minutes): 45
[2017-05-14 15:59] VITALS: BP 109/67
== END 2017-05-14 17:50 | disposition home or self-care (01) | DRG 637 ==
LOC: EDUNIT# → ED 12:26 → ICU 14:44 → MS3 05-12 18:15
PROVIDERS: ADMIT Hospitalist; ATTEND Internal Medicine
DX: E10.10 Type 1 diabetes mellitus with ketoacidosis without coma (principal); J18.9 Pneumonia, unspecified organism; R09.02 Hypoxemia; Y95 Nosocomial condition; I95.9 Hypotension, unspecified; T38.3X6A Underdosing of insulin and oral hypoglycemic [antidiabetic] drugs, initial encounter; G89.4 Chronic pain syndrome; F15.10 Other stimulant abuse, uncomplicated; I10 Essential (primary) hypertension; E78.00 Pure hypercholesterolemia, unspecified; E10.51 Type 1 diabetes mellitus with diabetic peripheral angiopathy without gangrene; E10.42 Type 1 diabetes mellitus with diabetic polyneuropathy; E10.621 Type 1 diabetes mellitus with foot ulcer; L97.521 Non-pressure chronic ulcer of other part of left foot limited to breakdown of skin; M79.7 Fibromyalgia; F91.8 Other conduct disorders; F07.0 Personality change due to known physiological condition; F32.9 Major depressive disorder, single episode, unspecified; F41.0 Panic disorder [episodic paroxysmal anxiety]; F17.200 Nicotine dependence, unspecified, uncomplicated; I25.2 Old myocardial infarction; Z59.0 Homelessness; Z89.421 Acquired absence of other right toe(s); Z76.5 Malingerer [conscious simulation]; Z79.891 Long term (current) use of opiate analgesic
CPT/HCPCS: 36415; 36600; 71045; 71046; 71275; 80048; 80053; 80306; 81001; 81003; 82009; 82040; 82330; 82803; 82947; 83036; 83690; 83735; 83880; 84100; 84484; 84702; 85025; 85379; 87086; 87150; 93005; 94640; 94761; 96365; 96372; 99284; 99285

== ENCOUNTER 2017-05-21 18:16 | Outpatient (CLI) | payer MEDICAID | END 2017-05-21 18:17 | disposition critical access hospital (66) | LOC: EMS 18:16 | PROVIDERS: ATTEND Surgery | DX: M25.571 Pain in right ankle and joints of right foot (principal) | CPT/HCPCS: A0425; A0429 ==

== ENCOUNTER 2017-05-21 18:36 | Inpatient (IN) | payer MEDICAID ==
[2017-05-21] MEDS ORDERED: SODIUM CHLORIDE 0.9% 1,000 ML IV ONE (18:47)
[2017-05-21 19:43] LABS: BASOPHILS # (AUTO) 0.1 10^3/uL (0.0-0.1); EOSINOPHILS % (AUTO) 0.2 %; HGB - HEMOGLOBIN 10.7 g/dL (12.0-16.0); LYMPHOCYTES # (AUTO) 0.9 10^3/uL (1.5-3.5); MEAN CORPUSCULAR HEMOGLOBIN 23.6 pg (27.0-31.0); MEAN CORPUSCULAR HGB CONC 29.1 g/dL (32.0-36.0); MEAN PLATELET VOLUME 7.3 fL (7.9-10.8); MONOCYTES # (AUTO) 0.3 10^3/uL (0.0-1.0); MONOCYTES % (AUTO) 3.2 %; NEUTROPHILS # (AUTO) 7.7 10^3/uL (1.5-6.6); NEUTROPHILS % (AUTO) 85.6 %; PLT - PLATELET COUNT 564 10^3/uL (130-450); RED BLOOD COUNT 4.53 10^6/uL (4.20-5.40); RED CELL DISTRIBUTION WIDTH 18.3 % (12.0-15.0)
[2017-05-21 19:44] LABS: VBG BASE EXCESS -1.1 mmol/L (-2 - +2); VBG PH 7.399 (7.31-7.41); VBG PO2 45.7 mmHg (25-47); VBG TOTAL CO2 24.8 mmol/L (24-29)
[2017-05-21 19:46] LABS: BILIRUBIN,URINE NEGATIVE (NEGATIVE); GLUCOSE, URINE (UA) >=1000 mg/dL (NEGATIVE); KETONES,URINE (UA) NEGATIVE (NEGATIVE); LEUKOCYTE ESTERASE, URINE NEGATIVE (NEGATIVE); NITRITE,URINE NEGATIVE (NEGATIVE); OCCULT BLOOD,URINE NEGATIVE (NEGATIVE); PROTEIN,URINE NEGATIVE (NEGATIVE); UROBILINOGEN,URINE 0.2 (NORMAL) E.U./dL (NORMAL)
[2017-05-21 19:46] LABS: KETONES, SERUM (ACETEST) NEGATIVE (NEGATIVE)
--- NOTE | 2017-05-21 19:49 | ED Physician Documentation ---
History of Present Illness - Stated complaint Stated Complaint: TOE PAIN - Chief complaint Chief Complaint: General - History obtained from History obtained from: Patient - History of Present Illness Timing: Other (36-year-old with type 1 diabetes and drug use, Noncompliance and homelessness. She has had multiple inpatient visits to the hospital for diabetic ketoacidosis and foot infections. Note made that on the last visit here she was found to be using drugs in the hospital. She complains of toe pain , specifically the first second and fourth toes of the right foot starting today without fevers. She denies drug abuse today or yesterday, but was probably using the day before "for pain.") Review of Systems Ten Systems: 10 systems reviewed and negative Constitutional: denies: Fever, Chills Cardiac: reports: Reviewed and negative Respiratory: reports: Reviewed and negative GI: reports: Reviewed and negative PD PAST MEDICAL HISTORY - Past Medical History Past Medical History: Yes Cardiovascular: Hypertension, High cholesterol, Peripheral Vascular Disease, [place] Respiratory: None Neuro: Peripheral neuropathy Endocrine/Autoimmune: Type 1 diabetes GI: Pancreatitis DIGITAL MEDIA COORDINATOR: None : None HEENT: None Psych: Depression, Anxiety, Panic attacks Musculoskeletal: Fibromyalgia Derm: None - Past Surgical History Past Surgical History: Yes General: Cholecystectomy HEENT: Tonsil/Adenoidectomy - Present Medications Home Medications: Ambulatory Orders Medication Instructions Recorded Confirmed Amitriptyline [Elavil] 50 mg PO QPM 30 Days #30 tablet 05/11/17 Cilostazol [Pletal] 100 mg PO BID #30 tablet 05/11/17 DULoxetine [Cymbalta] 60 mg PO DAILY #90 capsule 05/11/17 Gabapentin 600 mg PO TID #90 capsule 05/11/17 Ibuprofen [Motrin] 600 mg PO Q6HR PRN #60 tablet 05/11/17 Insulin Aspart [NovoLOG] 12 unit SUBQ TIDWM #3 pen 05/11/17 Insulin Glargine [Lantus Solostar] 70 unit SUBQ DAILY #10 pen 05/11/17 Methocarbamol [Robaxin] 500 mg PO BID PRN #30 tablet 05/11/17 Metoprolol Succinate [Toprol Xl] 25 mg PO BID #60 tablet 05/11/17 Oxybutynin [Ditropan] 5 mg PO BID #60 tablet 05/11/17 Syring-Needl,Disp,Insul,0.3 ml 1 each 5XD #90 disp.syrin 05/11/17 [Ultra Comfort] cloNIDine [Catapres] 0.1 mg PO BID #60 tablet 05/11/17 clonazePAM [KlonoPIN] 1 mg PO BID PRN #30 tablet 05/11/17 diltiaZEM CD [Cardizem Cd] 120 mg PO DAILY #30 capsule 05/11/17 Levofloxacin [Levaquin] 750 mg PO DAILY #5 tablet 05/14/17 - Allergies Allergies/Adverse Reactions: Allergies Allergy/AdvReac Type Severity Reaction Status Date / Time codeine Allergy Hives Verified 05/21/17 18:44 hydrocodone Allergy Hives Verified 05/21/17 18:44 milk AdvReac Cramps Verified 05/21/17 18:44 nitrofurantoin AdvReac Headache Verified 05/21/17 18:44 [From Macrobid] PAPER TAPE AdvReac Unknown Uncoded 05/21/17 18:44 - Social History Does the pt smoke?: Yes Smoking Status: Current every day smoker Does the pt drink ETOH?: No Does the pt have substance abuse?: Yes - Immunizations Immunizations are current?: Yes - POLST Patient has POLST: No POLST Status: Full Code PD ED PE NORMAL - Vitals Vital signs reviewed: Yes - General General: Alert and oriented X 3, Other (She is histrionic, writhing, and hypervigilant) - HEENT HEENT: Other (She has dilated pupils) - Neck Neck: Supple, no meningeal sign, No bony TTP - Cardiac Cardiac: RRR, No murmur - Respiratory Respiratory: No respiratory distress, Clear bilaterally - Abdomen Abdomen: Normal bowel sounds, Soft, Non tender - Extremities Extremities: No deformity, No tenderness to palpate, Other (There is very mild redness and swelling especially of the right fourth toe without ulcer.) - Neuro Neuro: Alert and oriented X 3, Normal speech - Psych Psych: Other (She is histrionic and hypervigilance consistent with some sort of drug use or withdrawal syndrome.) Results - Vitals Vitals: Vital Signs - 24 hr 05/21/17 18:41 Temperature 37.2 C Heart Rate 123 H Respiratory 24 Rate Blood Pressure 128/76 O2 Saturation 97 Oxygen O2 Source [Without Activity] Room air O2 Source Room air - Labs Labs: Laboratory Tests 05/21/17 05/21/17 05/21/17 19:28 19:28 19:30 WBC 9.0 RBC 4.53 Hgb 10.7 L Hct 36.7 L MCV 81.0 MCH 23.6 L MCHC 29.1 L RDW 18.3 H Plt Count 564 H MPV 7.3 L Neut # 7.7 H Lymph # 0.9 L Creek # 0.3 Eos # 0.0 Baso # 0.1 Absolute Nucleated RBC 0.00 Nucleated RBC % 0.0 VBG pH VBG pCO2 VBG pO2 VBG HCO3 VBG Total CO2 VBG O2 Saturation VBG Base Excess Sodium 124 L Potassium 4.7 Chloride 91 L Carbon Dioxide 22 Anion Gap 11.0 BUN 18 Creatinine 0.6 Estimated GFR (MDRD) 114 Glucose 1025 H* Calcium 8.4 L Total Bilirubin 0.6 AST 24 ALT 24 Alkaline Phosphatase 152 H Total Protein 7.4 Albumin 3.9 Globulin 3.5 Albumin/Globulin Ratio 1.1 Lipase 14 L Urine Color YELLOW Urine Clarity CLEAR Urine pH 5.0 Ur Specific [place] <=1.005 Urine Protein NEGATIVE Urine Glucose (UA) >=1000 H Urine Ketones NEGATIVE Urine Occult Blood NEGATIVE Urine Nitrite NEGATIVE Urine Bilirubin NEGATIVE Urine Urobilinogen 0.2 (NORMAL) Ur Leukocyte Esterase NEGATIVE Ur Microscopic Review NOT INDICATED Urine Culture Comments NOT INDICATED Urine HCG, Qual NEGATIVE Urine Opiates Screen Ur Oxycodone Screen Urine Methadone Screen Ur Propoxyphene Screen Ur Barbiturates Screen Ur Tricyclics Screen Ur Phencyclidine Scrn Ur Amphetamine Screen U Methamphetamines Scrn U Benzodiazepines Scrn Urine Cocaine Screen U Cannabinoids Screen Serum Ketones NEGATIVE 05/21/17 05/21/17 19:30 19:48 WBC RBC Hgb Hct MCV MCH MCHC RDW Plt Count MPV Neut # Lymph # [place] # Eos # Baso # Absolute Nucleated RBC Nucleated RBC % VBG pH 7.399 VBG pCO2 39.0 L VBG pO2 45.7 VBG HCO3 23.6 VBG Total CO2 24.8 VBG O2 Saturation 81.5 H VBG Base Excess -1.1 Sodium Potassium Chloride Carbon Dioxide Anion Gap BUN Creatinine Estimated GFR (MDRD) Glucose Calcium Total Bilirubin AST ALT Alkaline Phosphatase Total Protein Albumin Globulin Albumin/Globulin Ratio Lipase Urine Color Urine Clarity Urine pH Ur Specific [place] Urine Protein Urine Glucose (UA) Urine Ketones Urine Occult Blood Urine Nitrite Urine Bilirubin Urine Urobilinogen Ur Leukocyte Esterase Ur Microscopic Review Urine Culture Comments Urine HCG, Qual Urine Opiates Screen POSITIVE H Ur Oxycodone Screen NEGATIVE Urine Methadone Screen NEGATIVE Ur Propoxyphene Screen NEGATIVE Ur Barbiturates Screen NEGATIVE Ur Tricyclics Screen NEGATIVE Ur Phencyclidine Scrn NEGATIVE Ur Amphetamine Screen POSITIVE H U Methamphetamines Scrn POSITIVE H U Benzodiazepines Scrn NEGATIVE Urine Cocaine Screen NEGATIVE U Cannabinoids Screen NEGATIVE Serum Ketones PD MEDICAL DECISION MAKING - ED course ED course: This is an unfortunate 36-year-old woman with poorly controlled diabetes and drug abuse who presents with toe pain. Potentially a very mild infection on examination and high blood sugars prior to arrival. Her blood sugar is quite high but she is not in DKA. She was very persistent about pain medication, and she was administered Tylenol. I refused to give her narcotics given her behavior and history of drug abuse. I offered to block the toe in question. Which she refused. She refused and wanted to sign AGAINST MEDICAL ADVICE. During this conversation she kicked the door at me. She was encouraged to return anytime if worsening or if she did want treatment for her elevated blood sugar and infection. She is coherent, alert and oriented , and understands the risks of leaving the hospital and takes these upon herself. However we were able to convince her to stay, I still was not willing to give her narcotic analgesia but we settled on some Toradol and IV lidocaine. She still refused a digital block of the toe. Spoke with Dr. Nugent for admission at 9:15 PM. Departure - Departure Disposition: [address] [facility] DC/Xfer Clinical Impression: Personal history of noncompliance with medical treatment, Uncontrolled type 1 diabetes mellitus with complication, PVD (peripheral vascular disease), Methamphetamine abuse, Tobacco abuse disorder, Skin infection Toe ulcer due to DM Qualifiers: Diabetes mellitus type: type 1 Laterality: unspecified laterality Non-pressure ulcer stage: unspecified non-pressure ulcer stage Qualified Code(s): E10.621 - Type 1 diabetes mellitus with foot ulcer Condition: Serious Discharge Date/Time: 05/22/17 00:32
[2017-05-21 19:50] LABS: CLARITY,URINE CLEAR (CLEAR); HCG UR QUAL NEGATIVE
[2017-05-21] MEDS ORDERED: ACETAMINOPHEN 325 MG TABLET PO STA (19:50)
[2017-05-21 19:58] LABS: ALBUMIN 3.9 g/dL (3.2-5.5); ALBUMIN/GLOBULIN RATIO 1.1 (1.0-2.2); ALKALINE PHOSPHATASE 152 IU/L (42-121); ALT ALANINE AMINOTRANSFERASE 24 IU/L (10-60); AST ASPARTATE AMINOTRANSFERASE 24 IU/L (10-42); BILIRUBIN,TOTAL 0.6 mg/dL (0.2-1.0); BUN - BLOOD UREA NITROGEN 18 mg/dL (6-20); CALCIUM 8.4 mg/dL (8.5-10.3); CARBON DIOXIDE - CO2 22 mmol/L (21-32); CHLORIDE 91 mmol/L (101-111); CREATININE 0.6 mg/dL (0.4-1.0); GFR - MDRD 114 (>89); LIPASE 14 U/L (22-51); SODIUM 124 mmol/L (135-145); TOTAL PROTEIN 7.4 g/dL (6.7-8.2)
[2017-05-21 20:00] LABS: GLUCOSE 1025 mg/dL (70-100)
[2017-05-21] MEDS ORDERED: PIPERACILLIN/TAZOBACTAM 3.375 GM in SODIUM CHLORIDE 0.9% MINIBAG 100 ML IV STA (20:02)
[2017-05-21] MEDS ORDERED: INSULIN REGULAR HUMAN 100 UNIT in SODIUM CHLORIDE 0.9% 100ML 99 ML IV STA (20:02)
[2017-05-21] MEDS ORDERED: KETOROLAC 60 MG/2 ML VIAL IVP STA (20:45)
[2017-05-21] MEDS ORDERED: LIDOCAINE-MPF 2% 4 ML in SODIUM CHLORIDE 0.9% 50 ML IV STA (20:45)
[2017-05-21] MEDS ORDERED: LORazepam 2 MG/ML VIAL IVP STA (21:00)
[2017-05-21 21:19] LABS: MUDS CUTOFF CONCENTRATIONS CUTOFF CONC BELOW:
[2017-05-21 21:25] LABS: AMPHETAMINE SCREEN,URINE POSITIVE (NEGATIVE); BENZODIAZEPINES SCREEN, URINE NEGATIVE (NEGATIVE); COCAINE SCREEN URINE NEGATIVE (NEGATIVE); METHADONE SCREEN, URINE NEGATIVE (NEGATIVE); METHAMPHETAMINES SCREEN, URINE POSITIVE (NEGATIVE); OPIATE SCREEN, URINE POSITIVE (NEGATIVE); OXYCODONE SCREEN, URINE NEGATIVE (NEGATIVE); PROPOXYPHENE SCREEN, URINE NEGATIVE (NEGATIVE); TRICYCLIC ANTIDEPRESSANT,URINE NEGATIVE (NEGATIVE)
[2017-05-21] MEDS ORDERED: SODIUM CHLORIDE FLUSH 0.9% 10 ML SYRINGE IVP PRN (22:40)
[2017-05-21] MEDS ORDERED: TEMAZEPAM 15 MG CAPSULE PO PRN (22:40)
[2017-05-21] MEDS ORDERED: IBUPROFEN 600 MG TABLET PO PRN (22:40)
[2017-05-21] MEDS ORDERED: NS W/20 MEQ KCL 1,000 ML IV SCH (23:00)
--- NOTE | 2017-05-21 23:31 | HISTORY & PHYSICAL EXAMINATION ---
Chief Complaint - Chief Complaint Chief Complaint: Right foot pain History of Present Illness - Admitted From Admitted From:: community (pt is homeless) - History Obtained From Records Reviewed: yes History obtained from: pt, ER physician Exam Limitations: Pt lies to get what she wants - History of Present Illness HPI Comment/Other: Patti Calero is a 36-year-old female who is well-known to the [facility] ED and the hospitalist service as she comes in almost weekly with diabetic ketoacidosis or some other complication of her multiple medical issues. The patient is homeless, a drug addict, and noncompliant with her health care instructions. She presents tonight after being discharged 1 week ago with new complaints of right foot pain. She also was found to have a blood sugar of over 1000 but was not in diabetic ketoacidosis. She is admitted for her hyperglycemia and for treatment of cellulitis of the right foot. History - Past Medical History Cardiovascular: reports: Hypertension, High cholesterol, Peripheral Vascular Disease, [place] Respiratory: reports: None Neuro: reports: Peripheral neuropathy Endocrine/Autoimmune: reports: Type 1 diabetes GI: reports: Pancreatitis SUPERVISOR CORE DRILLING: reports: None : reports: None HEENT: reports: None Psych: reports: Depression, Anxiety, Panic attacks Musculoskeletal: reports: Fibromyalgia Derm: reports: None MRSA Hx?: No - Past Surgical History General: reports: Cholecystectomy HEENT: reports: Tonsil/Adenoidectomy - Family & Social History Family History: Father: , CAD, CVA/TIA, Hyperlipidemia, Hypertension, [place] Living arrangement: Homeless Living Situation: Unknown Social History Notes: The patient is a drug addict who was found with drugs in her hospital room during her last admission about a week ago. - Substance History Use: Uses substance without health or social issues: NONE Abuse: Recurrent use of substance despite neg consequences: Amphetamine Dependence Issues: Anxiety Disorder, Delirium, Mood Disorder - POLST Patient has POLST: No POLST Status: Full Code Meds/Allgy - Home Medications Home Medications: Ambulatory Orders Medication Instructions Recorded Confirmed Amitriptyline [Elavil] 50 mg PO QPM 30 Days #30 tablet 05/11/17 Cilostazol [Pletal] 100 mg PO BID #30 tablet 05/11/17 DULoxetine [Cymbalta] 60 mg PO DAILY #90 capsule 05/11/17 Gabapentin 600 mg PO TID #90 capsule 05/11/17 Ibuprofen [Motrin] 600 mg PO Q6HR PRN #60 tablet 05/11/17 Insulin Aspart [NovoLOG] 12 unit SUBQ TIDWM #3 pen 05/11/17 Insulin Glargine [Lantus Solostar] 70 unit SUBQ DAILY #10 pen 05/11/17 Methocarbamol [Robaxin] 500 mg PO BID PRN #30 tablet 05/11/17 Metoprolol Succinate [Toprol Xl] 25 mg PO BID #60 tablet 05/11/17 Oxybutynin [Ditropan] 5 mg PO BID #60 tablet 05/11/17 Syring-Needl,Disp,Insul,0.3 ml 1 each MC 5XD #90 disp.syrin 05/11/17 [Ultra Comfort] cloNIDine [Catapres] 0.1 mg PO BID #60 tablet 05/11/17 clonazePAM [KlonoPIN] 1 mg PO BID PRN #30 tablet 05/11/17 diltiaZEM CD [Cardizem Cd] 120 mg PO DAILY #30 capsule 05/11/17 Levofloxacin [Levaquin] 750 mg PO DAILY #5 tablet 05/14/17 - Allergies Allergies/Adverse Reactions: Allergies Allergy/AdvReac Type Severity Reaction Status Date / Time codeine Allergy Hives Verified 05/21/17 18:44 hydrocodone Allergy Hives Verified 05/21/17 18:44 milk AdvReac Cramps Verified 05/21/17 18:44 nitrofurantoin AdvReac Headache Verified 05/21/17 18:44 [From Macrobid] PAPER TAPE AdvReac Unknown Uncoded 05/21/17 18:44 Review of Systems - Constitutional Constitutional: reports: Fatigue, Malaise. denies: Fever, Chills - Eyes Eyes: denies: Pain, Irritation, Amaurosis, Blurred vision - Ears, Nose & Throat Ears, Nose & Throat: denies: Ear pain, Hearing loss, Hearing aids, Tinnitus, Vertigo, Nasal pain, Nasal discharge, Nosebleeds - Cardiovascular Cariovascular: denies: Irregular heart rate, Palpitations, Chest pain, Edema - Respiratory Respiratory: denies: Cough, Sputum production, Wheezing, Snoring - Gastrointestinal Gastrointestinal: denies: Abdominal pain, Abdominal distention, Constipation, Diarrhea, Change in bowel habits, Rectal bleeding - Genitourinary Genitourinary: denies: Dysuria, Frequency, Urgency, Hematuria - Musculoskeletal Musculoskeletal: reports: Muscle pain, Back pain, Muscle aches, Limited range of motion (Right foot swelling and tenderness.), Joint pain. denies: Stiffness , Gout - Integumentary Integumentary: denies: Rash, Pruritis, Lesions, Dryness - Neurological Neurological: denies: General weakness, Focal weakness, Headache, Dizziness - Psychiatric Psychiatric: reports: Depression, Anxiety. denies: Suicidal, Delusions, Hallucinations - Endocrine Endocrine: denies: Polyuria, Polydypsia, Polyphagia - Hematologic/Lymphatic Hematologic/Lymphatic: denies: Anemia, Bruising, Petechiae, Lymphadenopathy - All Other Systems All Other Systems: reports: Reviewed and negative Exam - Vital Signs Reviewed Vital Signs: Yes Vital Signs: Vital Signs x48h Temp Pulse Resp BP Pulse Ox 05/21/17 18:41 37.2 C 123 H 24 128/76 97 - Physical Exam General Appearance: positive: Alert, Moderate distress, Anxious Eyes Bilateral: positive: Normal inspection, PERRL, EOMI, No lid inflammation, Conjunctivae nml, No scleral icterus ENT: positive: ENT inspection nml, Pharynx nml, No signs of dehydration Neck: positive: Nml inspection, Thyroid nml, No JVD, Trachea midline. negative : Thyromegaly Respiratory: positive: Chest non-tender, No respiratory distress, Breath sounds nml. negative: Wheezes, Rales, Rhonchi Cardiovascular: positive: Regular rate & rhythm, No gallop. negative: Tachycardia, Bradycardia Peripheral Pulses: positive: 1+ Abdomen: positive: Non-tender, No organomegaly, Nml bowel sounds, No distention. negative: Guarding, Rebound Back: positive: Nml inspection. negative: CVA tenderness (R), CVA tenderness (L ) Skin: positive: Color nml, No rash, Warm, Dry. negative: Cyanosis Extremities: positive: Non-tender, Full ROM, Nml appearance, No pedal edema Neurologic/Psychiatric: positive: Oriented x3, CN's nml (2-12), Motor nml, Sensation nml. negative: Mood/affect nml (The patient is agitated and acting out, asking for pain medicine.) Conclusion/Plan - Problem List (1) Diabetes mellitus with hyperglycemia Conclusion/Plan: The patient is currently on insulin drip in the emergency department. We will place her on a sliding scale and on her regular outpatient Lantus. Qualifiers: Diabetes mellitus type: type 1 Qualified Code(s): E10.65 - Type 1 diabetes mellitus with hyperglycemia (2) Cellulitis Conclusion/Plan: The patient's right toes actually look better than they have previously, however she is complaining of severe pain associated with the cellulitis. We will start the patient on clindamycin and give her ibuprofen for her pain. Qualifiers: Site of cellulitis of extremity: toe Laterality: right (3) Chronic pain Conclusion/Plan: The patient has a history of chronic pain, she also is a drug addict. She was found to have drugs in her room during her last admission approximately 10 days ago. We will address the pt's pain complaints individually. Qualifiers: Chronic pain type: other chronic pain Qualified Code(s): G89.29 - Other chronic pain (4) Homeless single person Conclusion/Plan: I will ask social workers to once again look at Ms. Calero's homeless situation and see if there are any other programs to offer her. Sadly, it is doubtful. (5) Personal history of noncompliance with medical treatment Conclusion/Plan: This is due to the patient's lifestyle choices, her financial resources, and her decisions to purchase recreational drugs rather than medicinal ones. We will once again try to convince her to take better care of herself. We will monitor her closely for visitors and possibly using recreational drugs while inpatient. - Lab Results Lab results reviewed: Yes Fish Bones: 05/21/17 19:28 05/21/17 19:28 Core Measures - Anticipated LOS I expect patient to be DC'd or transferred within 96 hours.: Yes - DVT/VTE - Prophylaxis VTE/DVT Device ordered at admit?: Yes
[2017-05-22] MEDS: CLINDAMYCIN 900 MG/50 ML 50 ML IV SCH ×2 (00:32→03:24)
[2017-05-22 00:41] VITALS: BP 112/87
[2017-05-22] MEDS ORDERED: SODIUM CHLORIDE FLUSH 0.9% 10 ML SYRINGE IVP SCH (01:00)
[2017-05-22 06:40] LABS: HGB - HEMOGLOBIN 9.7 g/dL (12.0-16.0); MEAN CORPUSCULAR HEMOGLOBIN 23.2 pg (27.0-31.0); MEAN CORPUSCULAR HGB CONC 30.5 g/dL (32.0-36.0); MEAN PLATELET VOLUME 7.3 fL (7.9-10.8); RED BLOOD COUNT 4.17 10^6/uL (4.20-5.40); RED CELL DISTRIBUTION WIDTH 18.1 % (12.0-15.0); WHITE BLOOD COUNT 6.2 x10^3/uL (4.8-10.8)
[2017-05-22] MEDS ORDERED: NICOTINE 14 MG PATCH TOP SCH (07:00)
[2017-05-22 07:08] LABS: CALCIUM 8.3 mg/dL (8.5-10.3); CREATININE 0.3 mg/dL (0.4-1.0)
[2017-05-22 07:48] LABS: HB2 TOTAL 10.3 g/dL; HEMOGLOBIN A1C 1.15 g/dL; HEMOGLOBIN A1C % 12.4 % (4.6-6.2)
[2017-05-22] MEDS ORDERED: INSULIN ASPART 300 UNIT/3 ML PEN SUBQ SCH ×2 (08:00)
[2017-05-22] MEDS ORDERED: OXYBUTYNIN 5MG TABLET PO SCH (09:00)
[2017-05-22] MEDS ORDERED: INSULIN GLARGINE 300 UNIT/3 ML PEN SUBQ SCH (09:00)
[2017-05-22] MEDS ORDERED: DULoxetine 20 MG CAPSULE PO SCH (09:00)
[2017-05-22] MEDS ORDERED: cloNIDine 0.1 MG TABLET PO SCH (09:00)
[2017-05-22] MEDS ORDERED: POLYETHYLENE GLYCOL 3350 17 GM PACKET PO SCH (09:00)
[2017-05-22] MEDS ORDERED: METOPROLOL SUCCINATE 25 MG TABLET PO SCH (09:00)
[2017-05-22] MEDS ORDERED: diltiaZEM CD 120 MG CAPSULE PO SCH (09:00)
[2017-05-22] MEDS ORDERED: CILOSTAZOL 100 MG TABLET PO SCH (09:00)
[2017-05-22] MEDS ORDERED: AMITRIPTYLINE 25 MG TABLET PO SCH (21:00)
--- NOTE | 2017-05-23 07:19 | DISCHARGE SUMMARY ---
Discharge Summary Condition at Discharge: Serious Discharge Disposition: 07 Against Medical Advice - ALLERGIES Allergies/Adverse Reactions: Allergies Allergy/AdvReac Type Severity Reaction Status Date / Time codeine Allergy Hives Verified 05/21/17 18:44 hydrocodone Allergy Hives Verified 05/21/17 18:44 milk AdvReac Cramps Verified 05/21/17 18:44 nitrofurantoin AdvReac Headache Verified 05/21/17 18:44 [From Macrobid] PAPER TAPE AdvReac Unknown Uncoded 05/21/17 18:44 - MEDICATIONS Home Medications: Ambulatory Orders Medication Instructions Recorded Confirmed Amitriptyline [Elavil] 50 mg PO QPM 30 Days #30 tablet 05/11/17 Cilostazol [Pletal] 100 mg PO BID #30 tablet 05/11/17 DULoxetine [Cymbalta] 60 mg PO DAILY #90 capsule 05/11/17 Gabapentin 600 mg PO TID #90 capsule 05/11/17 Ibuprofen [Motrin] 600 mg PO Q6HR PRN #60 tablet 05/11/17 Insulin Aspart [NovoLOG] 12 unit SUBQ TIDWM #3 pen 05/11/17 Insulin Glargine [Lantus Solostar] 70 unit SUBQ DAILY #10 pen 05/11/17 Methocarbamol [Robaxin] 500 mg PO BID PRN #30 tablet 05/11/17 Metoprolol Succinate [Toprol Xl] 25 mg PO BID #60 tablet 05/11/17 Oxybutynin [Ditropan] 5 mg PO BID #60 tablet 05/11/17 Syring-Needl,Disp,Insul,0.3 ml 1 each MC 5XD #90 disp.syrin 05/11/17 [Ultra Comfort] cloNIDine [Catapres] 0.1 mg PO BID #60 tablet 05/11/17 clonazePAM [KlonoPIN] 1 mg PO BID PRN #30 tablet 05/11/17 diltiaZEM CD [Cardizem Cd] 120 mg PO DAILY #30 capsule 05/11/17 Levofloxacin [Levaquin] 750 mg PO DAILY #5 tablet 05/14/17 - LABS Result Diagrams: 05/22/17 05:48 05/22/17 05:48
== END 2017-05-22 08:30 | disposition left against medical advice (07) | DRG 638 ==
LOC: EDUNIT# → EDBD → ED 18:36 → MS2 22:40
PROVIDERS: ADMIT Hospitalist; ATTEND Hospitalist
DX: E10.65 Type 1 diabetes mellitus with hyperglycemia (principal); F15.280 Other stimulant dependence with stimulant-induced anxiety disorder; F15.221 Other stimulant dependence with intoxication delirium; L03.031 Cellulitis of right toe; F15.24 Other stimulant dependence with stimulant-induced mood disorder; I10 Essential (primary) hypertension; E78.00 Pure hypercholesterolemia, unspecified; E10.51 Type 1 diabetes mellitus with diabetic peripheral angiopathy without gangrene; E10.42 Type 1 diabetes mellitus with diabetic polyneuropathy; F32.9 Major depressive disorder, single episode, unspecified; F41.0 Panic disorder [episodic paroxysmal anxiety]; G89.29 Other chronic pain; M79.7 Fibromyalgia; F17.200 Nicotine dependence, unspecified, uncomplicated; T38.3X6A Underdosing of insulin and oral hypoglycemic [antidiabetic] drugs, initial encounter; Z79.4 Long term (current) use of insulin; Z79.899 Other long term (current) drug therapy; Z91.14 Patient's other noncompliance with medication regimen; Z59.0 Homelessness; I25.2 Old myocardial infarction
CPT/HCPCS: 36415; 80048; 80053; 80306; 81001; 81003; 81025; 82009; 82803; 83036; 83690; 85025; 87086; 96361; 96365; 96368; 96375; 99284; 99285

== ENCOUNTER 2017-06-30 10:08 | Outpatient (CLI) | payer MEDICAID | END 2017-06-30 10:09 | disposition critical access hospital (66) | LOC: EMS 10:08 | PROVIDERS: ATTEND Surgery | DX: R73.09 Other abnormal glucose (principal); R53.1 Weakness | CPT/HCPCS: A0425; A0429 ==

== ENCOUNTER 2017-06-30 10:30 | Inpatient (IN) | payer MEDICAID ==
[2017-06-30] MEDS ORDERED: SODIUM CHLORIDE 0.9% 1,000 ML IV ONE ×2 (10:45→13:08)
[2017-06-30] MEDS ORDERED: INSULIN REGULAR HUMAN 100 UNIT in SODIUM CHLORIDE 0.9% 100ML 99 ML IV STA (10:45)
[2017-06-30] MEDS ORDERED: INSULIN REGULAR HUMAN 100 UNIT/1 ML 10 ML MDV IVP STA (10:45)
--- NOTE | 2017-06-30 10:50 | ED Physician Documentation ---
History of Present Illness - Stated complaint Stated Complaint: ELEVATED BLOOD SUGAR - Additonal information Additional information: hx from EMS 36 f poorly controlled IDDM to ED BIBA for AMS and blood sugar "high" pt reports out of meds denies other illness denies fall or injury Review of Systems Constitutional: denies: Fever, Chills Respiratory: denies: Cough GI: denies: Vomiting, Diarrhea : denies: Now EGA (will check) Neurologic: reports: Confused Endocrine: denies: Easy bruising / bleeding Immunocompromised: denies: Immunocompromised PD PAST MEDICAL HISTORY - Past Medical History Cardiovascular: Hypertension, High cholesterol, Peripheral Vascular Disease, [place] Respiratory: None Neuro: Peripheral neuropathy Endocrine/Autoimmune: Type 1 diabetes GI: Pancreatitis MEDICAL CLERICAL ASSISTANT: None : None HEENT: None Psych: Depression, Anxiety, Panic attacks Musculoskeletal: Fibromyalgia Derm: None - Past Surgical History Past Surgical History: Yes General: Cholecystectomy HEENT: Tonsil/Adenoidectomy - Present Medications Home Medications: Ambulatory Orders Medication Instructions Recorded Confirmed Amitriptyline [Elavil] 50 mg PO QPM 30 Days #30 tablet 05/11/17 06/30/17 Cilostazol [Pletal] 100 mg PO BID #30 tablet 05/11/17 06/30/17 DULoxetine [Cymbalta] 60 mg PO DAILY #90 capsule 05/11/17 06/30/17 Gabapentin 600 mg PO TID #90 capsule 05/11/17 06/30/17 Ibuprofen [Motrin] 600 mg PO Q6HR PRN #60 tablet 05/11/17 06/30/17 Insulin Aspart [NovoLOG] 12 unit SUBQ TIDWM #3 pen 05/11/17 06/30/17 Insulin Glargine [Lantus Solostar] 70 unit SUBQ DAILY #10 pen 05/11/17 06/30/17 Methocarbamol [Robaxin] 500 mg PO BID PRN #30 tablet 05/11/17 06/30/17 Metoprolol Succinate [Toprol Xl] 25 mg PO BID #60 tablet 05/11/17 06/30/17 Oxybutynin [Ditropan] 5 mg PO BID #60 tablet 05/11/17 06/30/17 Syring-Needl,Disp,Insul,0.3 ml 1 each MC 5XD #90 disp.syrin 05/11/17 06/30/17 [Ultra Comfort] cloNIDine [Catapres] 0.1 mg PO BID #60 tablet 05/11/17 06/30/17 diltiaZEM CD [Cardizem Cd] 120 mg PO DAILY #30 capsule 05/11/17 06/30/17 clonazePAM [KlonoPIN] 0.5 mg PO BID PRN 06/30/17 06/30/17 - Allergies Allergies/Adverse Reactions: Allergies Allergy/AdvReac Type Severity Reaction Status Date / Time codeine Allergy Hives Verified 05/21/17 18:44 hydrocodone Allergy Hives Verified 05/21/17 18:44 milk AdvReac Cramps Verified 05/21/17 18:44 nitrofurantoin AdvReac Headache Verified 05/21/17 18:44 [From Macrobid] PAPER TAPE AdvReac Unknown Uncoded 05/21/17 18:44 - Social History Does the pt smoke?: Yes Smoking Status: Current every day smoker Does the pt drink ETOH?: No Does the pt have substance abuse?: Yes - Immunizations Immunizations are current?: Yes - POLST Patient has POLST: No POLST Status: Full Code PD ED PE NORMAL - Vitals Vital signs reviewed: Yes - General General: Other (disheveled, strong odor of ketones) - HEENT HEENT: No: Moist mucous membranes (dry) - Neck Neck: Supple, no meningeal sign - Cardiac Cardiac: RRR - Respiratory Respiratory: No respiratory distress - Abdomen Abdomen: Non tender - Derm Derm: Other (dirt on feet, no open wounds, necrotic) - Extremities Extremities: Other (necrotic L toe) - Neuro Neuro: Other (difficult to arouse) Results - Vitals Vitals: Vital Signs - 24 hr 06/30/17 06/30/17 06/30/17 10:52 12:00 13:58 Temperature 36.2 C L Heart Rate 110 H 117 H 112 H Respiratory 18 18 18 Rate Blood Pressure 129/86 H 140/82 H 133/93 H O2 Saturation 100 100 100 06/30/17 15:00 Temperature Heart Rate 112 H Respiratory 16 Rate Blood Pressure 141/75 H O2 Saturation 100 Oxygen O2 Source [Without Activity] Room air O2 Source Room air - Labs Labs: Laboratory Tests 06/30/17 06/30/17 06/30/17 12:30 12:40 12:40 WBC 10.4 RBC 5.72 H Hgb 13.8 Hct 47.7 H MCV 83.3 MCH 24.1 L MCHC 29.0 L RDW 17.4 H Plt Count 361 MPV 9.4 Neut # 9.1 H Lymph # 1.0 L [place] # 0.3 Eos # 0.0 Baso # 0.1 Absolute Nucleated RBC 0.01 Nucleated RBC % 0.0 VBG pH VBG pCO2 VBG pO2 VBG HCO3 VBG Total CO2 VBG O2 Saturation VBG Base Excess Sodium 122 L Potassium 5.5 H Chloride 82 L Carbon Dioxide < 6 L* Anion Gap 35.0 H BUN 60 H Creatinine 1.4 H Estimated GFR (MDRD) 43 L Glucose 803 H* Calcium 8.6 Total Bilirubin 1.8 H AST 30 ALT 67 H Alkaline Phosphatase 287 H Total Protein 8.1 Albumin 4.2 Globulin 3.9 Albumin/Globulin Ratio 1.1 Lipase 25 Serum HCG, Qual Urine Color YELLOW Urine Clarity CLOUDY Urine pH 5.5 Ur Specific [place] 1.025 Urine Protein NEGATIVE Urine Glucose (UA) >=1000 H Urine Ketones >=80 H Urine Occult Blood MODERATE H Urine Nitrite NEGATIVE Urine Bilirubin NEGATIVE Urine Urobilinogen 0.2 (NORMAL) Ur Leukocyte Esterase NEGATIVE Urine RBC 11-25 H Urine WBC 4-5 Ur Squamous Epith Cells MANY Squamous H Urine Bacteria Many H Urine Yeast PRESENT Ur Microscopic Review INDICATED Urine Culture Comments NOT INDICATED Serum Ketones LARGE H 06/30/17 06/30/17 12:40 13:00 WBC RBC Hgb Hct MCV MCH MCHC RDW Plt Count MPV Neut # Lymph # [place] # Eos # Baso # Absolute Nucleated RBC Nucleated RBC % VBG pH 7.007 L VBG pCO2 18.0 L VBG pO2 61.3 H VBG HCO3 4.4 L VBG Total CO2 5.0 L VBG O2 Saturation 81.0 H VBG Base Excess -25.2 L Sodium Potassium Chloride Carbon Dioxide Anion Gap BUN Creatinine Estimated GFR (MDRD) Glucose Calcium Total Bilirubin AST ALT Alkaline Phosphatase Total Protein Albumin Globulin Albumin/Globulin Ratio Lipase Serum HCG, Qual NEGATIVE Urine Color Urine Clarity Urine pH Ur Specific [place] Urine Protein Urine Glucose (UA) Urine Ketones Urine Occult Blood Urine Nitrite Urine Bilirubin Urine Urobilinogen Ur Leukocyte Esterase Urine RBC Urine WBC Ur Squamous Epith Cells Urine Bacteria Urine Yeast Ur Microscopic Review Urine Culture Comments Serum Ketones PD MEDICAL DECISION MAKING - ED course ED course: DKA mosheannie 2/2 med non compliance PICC placed by anethesia pt given IVF insulin bolus and gtt spoke to hospitalist at 1300 Departure - Departure Disposition: 66 [facility] DC/Xfer Clinical Impression: DKA (diabetic ketoacidosis) Qualifiers: Diabetes mellitus type: type 1 Diabetes mellitus complication detail: without coma Qualified Code(s): E10.10 - Type 1 diabetes mellitus with ketoacidosis without coma Condition: Good Discharge Date/Time: 06/30/17 16:11
--- NOTE | 2017-06-30 12:27 | XRAY Report ---
EXAM: CHEST RADIOGRAPHY EXAM DATE: 06/30/2017 12:12 PM. CLINICAL HISTORY: Right PICC placement. COMPARISON: 05/12/2017. TECHNIQUE: 1 view. FINDINGS: Device: Interval right upper extremity PICC with tip to the lower third SVC. Lungs/Pleura: Improved aeration and clearing of previous airspace opacities. No pneumothorax or pleur al effusion. Mediastinum: Normal cardiomediastinal silhouette. Other: Bones are unremarkable. IMPRESSION: 1. Satisfactory right PICC placement to the lower third SVC. 2. Clear lungs. [facility] Referring Provider Line: [phone] SITE ID: [id number]
[2017-06-30 12:55] LABS: BASOPHILS # (AUTO) 0.1 10^3/uL (0.0-0.1); BASOPHILS % (AUTO) 0.7 %; HGB - HEMOGLOBIN 13.8 g/dL (12.0-16.0); LYMPHOCYTES % (AUTO) 9.4 %; MEAN CORPUSCULAR HEMOGLOBIN 24.1 pg (27.0-31.0); MEAN CORPUSCULAR VOLUME 83.3 fL (81.0-99.0); MEAN PLATELET VOLUME 9.4 fL (7.9-10.8); MONOCYTES # (AUTO) 0.3 10^3/uL (0.0-1.0); MONOCYTES % (AUTO) 2.9 %; NEUTROPHILS # (AUTO) 9.1 10^3/uL (1.5-6.6); PLT - PLATELET COUNT 361 10^3/uL (130-450); RED BLOOD COUNT 5.72 10^6/uL (4.20-5.40); RED CELL DISTRIBUTION WIDTH 17.4 % (12.0-15.0); WHITE BLOOD COUNT 10.4 x10^3/uL (4.8-10.8)
[2017-06-30 13:02] LABS: BILIRUBIN,URINE NEGATIVE (NEGATIVE); GLUCOSE, URINE (UA) >=1000 mg/dL (NEGATIVE); KETONES,URINE (UA) >=80 mg/dL (NEGATIVE); LEUKOCYTE ESTERASE, URINE NEGATIVE (NEGATIVE); NITRITE,URINE NEGATIVE (NEGATIVE); OCCULT BLOOD,URINE MODERATE (NEGATIVE); PH,URINE 5.5 PH (5.0-7.5); PROTEIN,URINE NEGATIVE (NEGATIVE); UROBILINOGEN,URINE 0.2 (NORMAL) E.U./dL (NORMAL)
[2017-06-30 13:02] LABS: VBG BASE EXCESS -25.2 mmol/L (-2 - +2); VBG PH 7.007 (7.31-7.41); VBG PO2 61.3 mmHg (25-47)
[2017-06-30 13:04] LABS: CLARITY,URINE CLOUDY (CLEAR)
[2017-06-30 13:08] LABS: ALBUMIN 4.2 g/dL (3.2-5.5); ALBUMIN/GLOBULIN RATIO 1.1 (1.0-2.2); ALKALINE PHOSPHATASE 287 IU/L (42-121); ALT ALANINE AMINOTRANSFERASE 67 IU/L (10-60); AST ASPARTATE AMINOTRANSFERASE 30 IU/L (10-42); BILIRUBIN,TOTAL 1.8 mg/dL (0.2-1.0); BUN - BLOOD UREA NITROGEN 60 mg/dL (6-20); CALCIUM 8.6 mg/dL (8.5-10.3); CHLORIDE 82 mmol/L (101-111); CREATININE 1.4 mg/dL (0.4-1.0); GFR - MDRD 43 (>89); GLUCOSE 803 mg/dL (70-100); LIPASE 25 U/L (22-51); SODIUM 122 mmol/L (135-145); TOTAL PROTEIN 8.1 g/dL (6.7-8.2)
[2017-06-30 13:09] LABS: CARBON DIOXIDE - CO2 < 6 mmol/L (21-32)
[2017-06-30 13:15] LABS: HCG,QUALITATIVE BLOOD NEGATIVE; KETONES, SERUM (ACETEST) LARGE (NEGATIVE)
[2017-06-30 13:23] LABS: BACTERIA,URINE Many /HPF (None Seen); SQUAMOUS EPITHELIAL CELL,UR MANY Squamous (<= Few)
[2017-06-30 13:24] LABS: YEAST,URINE PRESENT
[2017-06-30 15:38] LABS: VBG PH 7.187 (7.31-7.41)
[2017-06-30 15:39] LABS: VBG BASE EXCESS -19.4 mmol/L (-2 - +2); VBG PCO2 17.9 mmHg (41-51); VBG PO2 113.5 mmHg (25-47); VBG TOTAL CO2 7.2 mmol/L (24-29)
[2017-06-30 15:47] LABS: CALCIUM 5.3 mg/dL (8.5-10.3); CREATININE 0.7 mg/dL (0.4-1.0); MAGNESIUM 1.3 mg/dL (1.7-2.8)
[2017-06-30] MEDS ORDERED: INSULIN REGULAR HUMAN 100 UNIT in SODIUM CHLORIDE 0.9% 100ML 99 ML IV SCH (16:03)
[2017-06-30] MEDS: IBUPROFEN 600 MG TABLET PO PRN (16:42)
[2017-06-30] MEDS: SODIUM CHLORIDE 0.9% 1,000 ML IV SCH (16:42)
[2017-06-30] MEDS: PROCHLORPERAZINE 10 MG/2 ML VIAL IVP PRN (17:37)
[2017-06-30 17:42] LABS: KETONES, SERUM (ACETEST) LARGE (NEGATIVE)
[2017-06-30 17:46] LABS: BUN - BLOOD UREA NITROGEN 43 mg/dL (6-20); CALCIUM 7.3 mg/dL (8.5-10.3); CHLORIDE 96 mmol/L (101-111); CREATININE 0.9 mg/dL (0.4-1.0); GFR - MDRD 71 (>89); GLUCOSE 419 mg/dL (70-100); SODIUM 126 mmol/L (135-145)
[2017-06-30] MEDS: SODIUM CHLORIDE FLUSH 0.9% 10 ML SYRINGE IVP SCH (19:03)
[2017-06-30 19:42] LABS: KETONES, SERUM (ACETEST) LARGE (NEGATIVE)
[2017-06-30 19:52] LABS: BUN - BLOOD UREA NITROGEN 42 mg/dL (6-20); CALCIUM 7.5 mg/dL (8.5-10.3); CHLORIDE 96 mmol/L (101-111); GFR - MDRD 63 (>89); GLUCOSE 368 mg/dL (70-100); MAGNESIUM 1.9 mg/dL (1.7-2.8); SODIUM 129 mmol/L (135-145)
[2017-06-30] MEDS: cloNIDine 0.1 MG TABLET PO SCH (21:03)
[2017-06-30] MEDS: AMITRIPTYLINE 25 MG TABLET PO SCH (21:03)
[2017-06-30] MEDS: METOPROLOL SUCCINATE 25 MG TABLET PO SCH (21:03)
[2017-06-30] MEDS: CILOSTAZOL 100 MG TABLET PO SCH (21:04)
[2017-06-30] MEDS: OXYBUTYNIN 5MG TABLET PO SCH (21:04)
[2017-06-30] MEDS: PANTOPRAZOLE 40 MG VIAL IVP SCH (21:04)
[2017-06-30] MEDS: clonazePAM 0.5 MG TABLET PO PRN (21:04)
[2017-06-30] MEDS: SODIUM CHLORIDE FLUSH 0.9% 10 ML SYRINGE IVP PRN ×2 (21:06→21:44)
[2017-06-30] MEDS: GABAPENTIN 300 MG CAPSULE PO SCH (22:48)
[2017-07-01] MEDS: SODIUM CHLORIDE 0.9% 1,000 ML IV SCH (00:20)
[2017-07-01] MEDS: SODIUM CHLORIDE FLUSH 0.9% 10 ML SYRINGE IVP SCH ×4 (01:14→21:31)
[2017-07-01] MEDS ORDERED: D5.45NS W/20 MEQ KCL 1,000 ML IV SCH (03:00)
[2017-07-01 06:01] LABS: BASOPHILS % (AUTO) 0.2 %; EOSINOPHILS % (AUTO) 0.1 %; HGB - HEMOGLOBIN 10.9 g/dL (12.0-16.0); LYMPHOCYTES # (AUTO) 1.9 10^3/uL (1.5-3.5); LYMPHOCYTES % (AUTO) 26.5 %; MEAN CORPUSCULAR HEMOGLOBIN 23.4 pg (27.0-31.0); MEAN CORPUSCULAR HGB CONC 31.2 g/dL (32.0-36.0); MEAN CORPUSCULAR VOLUME 74.8 fL (81.0-99.0); MEAN PLATELET VOLUME 8.2 fL (7.9-10.8); MONOCYTES # (AUTO) 0.6 10^3/uL (0.0-1.0); MONOCYTES % (AUTO) 8.5 %; NEUTROPHILS # (AUTO) 4.6 10^3/uL (1.5-6.6); NEUTROPHILS % (AUTO) 64.7 %; PLT - PLATELET COUNT 312 10^3/uL (130-450); RED BLOOD COUNT 4.66 10^6/uL (4.20-5.40); RED CELL DISTRIBUTION WIDTH 17.4 % (12.0-15.0)
[2017-07-01 06:02] LABS: CALCIUM 7.7 mg/dL (8.5-10.3); CREATININE 0.6 mg/dL (0.4-1.0)
[2017-07-01 06:17] LABS: HB2 TOTAL 11.7 g/dL; HEMOGLOBIN A1C 1.5 g/dL; HEMOGLOBIN A1C % 13.9 % (4.6-6.2)
[2017-07-01] MEDS: ACETAMINOPHEN 1,000 MG/100 ML 100 ML IV PRN ×2 (06:20→21:30)
[2017-07-01] MEDS: GABAPENTIN 300 MG CAPSULE PO SCH ×3 (06:20→21:32)
[2017-07-01] MEDS ORDERED: INSULIN REGULAR HUMAN 100 UNIT/1 ML 10 ML MDV SUBQ ONE (06:54)
[2017-07-01] MEDS ORDERED: INSULIN REGULAR HUMAN 100 UNIT/1 ML 10 ML MDV ONE (07:12)
[2017-07-01] MEDS ORDERED: GADOBUTROL 7.5 MMOL/7.5 ML SYRINGE ONE (08:00)
[2017-07-01 08:28] LABS: VBG PH 7.377 (7.31-7.41)
[2017-07-01] MEDS: INSULIN ASPART 300 UNIT/3 ML PEN SUBQ SCH ×4 (09:18→21:49)
[2017-07-01] MEDS ORDERED: CALCIUM GLUCONATE 1,000 MG in SODIUM CHLORIDE 0.9% 50 ML IV ONE (10:30)
[2017-07-01] MEDS: PANTOPRAZOLE 40 MG VIAL IVP SCH ×2 (10:52→21:30)
[2017-07-01] MEDS: CILOSTAZOL 100 MG TABLET PO SCH ×2 (10:57→21:31)
[2017-07-01] MEDS: diltiaZEM CD 120 MG CAPSULE PO SCH (10:57)
[2017-07-01] MEDS: cloNIDine 0.1 MG TABLET PO SCH ×2 (10:57→21:50)
[2017-07-01] MEDS: METOPROLOL SUCCINATE 25 MG TABLET PO SCH ×2 (10:58→21:31)
[2017-07-01] MEDS: DULoxetine 20 MG CAPSULE PO SCH (10:58)
[2017-07-01] MEDS: SODIUM CHLORIDE FLUSH 0.9% 10 ML SYRINGE IVP PRN ×2 (10:58→21:31)
[2017-07-01] MEDS: OXYBUTYNIN 5MG TABLET PO SCH ×2 (10:58→21:31)
[2017-07-01] MEDS: INSULIN GLARGINE 300 UNIT/3 ML PEN SUBQ SCH (11:09)
--- NOTE | 2017-07-01 16:15 | PROVIDER PROGRESS NOTE ---
Assessment/Plan - Problem List (1) DKA (diabetic ketoacidoses) Qualifiers: Diabetes mellitus type: type 1 Diabetes mellitus complication detail: without coma Qualified Code(s): E10.10 - Type 1 diabetes mellitus with ketoacidosis without coma Assessment/Plan: Resolved. Will start Lantus and diabetic diet advancemet plus ss Insulin coverage. (2) PVD (peripheral vascular disease) Assessment/Plan: Continue meds. Awaiting imaging to determine of the black toes have osteo or gangrene under the skin. (3) Personal history of noncompliance with medical treatment Assessment/Plan: This is a recurrent problem, worsened by the fact that she is homeless an has no PCP and runs out of meds without refills. Will discuss with Social Work for any other things that can be offered patient. - Current Meds Current Meds: Current Medications Generic Name Dose Route Start Last Admin Trade Name Freq PRN Reason Stop Dose Admin Amitriptyline HCl 50 mg 06/30/17 21:00 06/30/17 21:03 Elavil PO 50 mg QPM SYLVIA Administration Cilostazol 100 mg 06/30/17 21:00 07/01/17 10:57 Pletal PO 100 mg BID SYLVIA Administration Clonazepam 0.5 mg 06/30/17 15:26 06/30/17 21:04 Klonopin PO 0.5 mg BID PRN Administration Anxiety Clonidine HCl 0.1 mg 06/30/17 21:00 07/01/17 10:57 Catapres PO 0.1 mg BID SYVLIA Administration Diltiazem HCl 120 mg 07/01/17 09:00 07/01/17 10:57 Cardizem Cd PO 120 mg DAILY SYLVIA Administration Duloxetine HCl 60 mg 07/01/17 09:00 07/01/17 10:58 Cymbalta PO 60 mg DAILY SYLVIA Administration Gabapentin 600 mg 06/30/17 22:00 07/01/17 14:00 Neurontin PO 600 mg TID SYLVIA Administration Acetaminophen 100 mls @ 400 mls/hr 06/30/17 18:34 07/01/17 06:36 Ofirmev IV Infused Q6HR PRN Infusion PAIN Ibuprofen 600 mg 06/30/17 15:06 06/30/17 16:42 Motrin PO 600 mg Q6HR PRN Administration Pain 1 to 4 Insulin Aspart 1 - 9 unit 07/01/17 08:00 07/01/17 12:37 Novolog SUBQ Not Given 0800,1200,1700,2100 [facility] Protocol Insulin Glargine 70 unit 07/01/17 09:00 07/01/17 11:09 Lantus Solostar SUBQ 70 unit DAILY SYLVIA Administration Metoprolol Succinate 25 mg 06/30/17 21:00 07/01/17 10:58 Toprol Xl PO 25 mg BID SYLVIA Administration Oxybutynin Chloride 5 mg 06/30/17 21:00 07/01/17 10:58 Ditropan PO 5 mg BID SYLVIA Administration Pantoprazole Sodium 40 mg 06/30/17 21:00 07/01/17 10:52 Protonix IVP 40 mg BID SYLVIA Administration Prochlorperazine Edisylate 10 mg 06/30/17 15:06 06/30/17 17:37 Compazine Inj IVP 10 mg Q6HR PRN Administration Nausea / Vomiting Sodium Chloride 10 ml 06/30/17 17:00 07/01/17 10:59 Normal Saline Flush 0.9% IVP 10 ml 0100,0900,1700 SYLVIA Administration Sodium Chloride 10 ml 06/30/17 15:06 07/01/17 10:58 Normal Saline Flush 0.9% IVP 10 ml PRN PRN Administration NEEDED PER PROVIDER ORDERS - Lab Result Fish Bone Diagrams: 07/01/17 05:00 07/02/17 04:23 - Additional Planning My Orders: My Active Orders 06/30/17 15:23 Central Line Care [RC] Routine Initiate Hypoglycemia Protocol [RC] .protocol Notify Provider - Specific Ins [RC] PRN UA, MICROSCOPIC & CULT IF [URIN] Routine 06/30/17 15:26 DRUG SCREEN MEDICAL (MUDS) [URIN] Routine clonazePAM [KlonoPIN] 0.5 mg PO BID PRN 06/30/17 18:34 Acetaminophen 1,000 mg/100 ml [Ofirmev] 100 ml IV Q6HR 06/30/17 21:00 Amitriptyline [Elavil] 50 mg PO QPM Cilostazol [Pletal] 100 mg PO BID Metoprolol Succinate [Toprol Xl] 25 mg PO BID Oxybutynin [Ditropan] 5 mg PO BID cloNIDine [Catapres] 0.1 mg PO BID 06/30/17 22:00 Gabapentin [Neurontin] 600 mg PO TID 07/01/17 Consult [Gynecology Consult] [CONS] Routine 07/01/17 09:00 DULoxetine [Cymbalta] 60 mg PO DAILY diltiaZEM CD [Cardizem Cd] 120 mg PO DAILY 07/02/17 05:00 CALCIUM [CHEM] DAILYLAB MAGNESIUM [CHEM] DAILYLAB POTASSIUM [CHEM] DAILYLAB 07/03/17 05:00 CALCIUM [CHEM] DAILYLAB MAGNESIUM [CHEM] DAILYLAB POTASSIUM [CHEM] DAILYLAB Subjective - Subjective Patient Reports: Feeling Better, Resting Comfortably Nursing Reports: Other (Too sleepy to have breakfast) Objective Vital Signs: Vital Signs - 24 hr 06/30/17 06/30/17 06/30/17 16:30 17:00 18:00 Temperature Heart Rate [ 118 H 120 H 126 H Monitoring electrodes] Respiratory 23 23 25 H Rate Blood Pressure 119/70 129/74 134/81 H [Left Brachial artery] O2 Saturation 95 95 95 06/30/17 06/30/17 06/30/17 19:00 20:00 21:00 Temperature 37.1 C Heart Rate [ 128 H 128 H Monitoring electrodes] Respiratory 23 128 H 25 H Rate Blood Pressure 149/82 H 133/77 H 152/75 H [Left Brachial artery] O2 Saturation 95 100 100 06/30/17 06/30/17 07/01/17 22:00 23:00 00:00 Temperature 37.4 C Heart Rate [ 116 H 112 H 113 H Monitoring electrodes] Respiratory 24 19 18 Rate Blood Pressure 124/79 116/74 120/74 [Left Brachial artery] O2 Saturation 98 98 98 07/01/17 07/01/17 07/01/17 01:17 03:00 04:00 Temperature 37.3 C Heart Rate [ 109 H 108 H 105 H Monitoring electrodes] Respiratory 12 16 15 Rate Blood Pressure 121/73 102/61 106/68 [Left Brachial artery] O2 Saturation 100 99 99 07/01/17 07/01/17 07/01/17 05:00 06:00 06:55 Temperature Heart Rate [ 103 H 104 H 107 H Monitoring electrodes] Respiratory 13 20 21 Rate Blood Pressure 106/68 111/71 108/69 [Left Brachial artery] O2 Saturation 99 99 100 05/10/18 05/10/18 05/10/18 07:35 09:00 10:00 Temperature Heart Rate [ 110 H 109 H 111 H Monitoring electrodes] Respiratory 18 21 20 Rate Blood Pressure 110/77 133/76 H 123/81 H [Left Brachial artery] O2 Saturation 99 98 96 07/01/17 07/01/17 07/01/17 11:00 12:00 13:00 Temperature 36.7 C Heart Rate [ 104 H 106 H 108 H Monitoring electrodes] Respiratory 16 15 25 H Rate Blood Pressure 113/74 98/57 L [Left Brachial artery] O2 Saturation 99 99 98 Oxygen O2 Source Room air I&O (Last 24 Hrs): Intake and Output Totals x24h 06/29/17 06/30/17 07/01/17 23:59 23:59 23:59 Intake Total 2079.95 1857.050 Output Total 800 225 Balance 1279.95 1632.050 General: No acute distress HEENT: Other (Somnolent) Neck: Supple, No JVD Neuro: Non Focal Cardiovascular: Regular rate, No murmurs Respiratory: No respiratory distress Abdomen: Normal bowel sounds Extremities: Other (Dry black eschars on several toes of both feet) - Results Results: Laboratory Results WBC 7.0 x10^3/uL (4.8-10.8) 07/01/17 05:00 RBC 4.66 10^6/uL (4.20-5.40) 07/01/17 05:00 Hgb 10.9 g/dL (12.0-16.0) L 07/01/17 05:00 Hct 34.9 % (37.0-47.0) L 07/01/17 05:00 MCV 74.8 fL (81.0-99.0) L 07/01/17 05:00 MCH 23.4 pg (27.0-31.0) L 07/01/17 05:00 MCHC 31.2 g/dL (32.0-36.0) L 07/01/17 05:00 RDW 17.4 % (12.0-15.0) H 07/01/17 05:00 Plt Count 312 10^3/uL (130-450) 07/01/17 05:00 MPV 8.2 fL (7.9-10.8) 07/01/17 05:00 Neut # 4.6 10^3/uL (1.5-6.6) 07/01/17 05:00 Lymph # 1.9 10^3/uL (1.5-3.5) 07/01/17 05:00 [place] # 0.6 10^3/uL (0.0-1.0) 07/01/17 05:00 Eos # 0.0 10^3/uL (0.0-0.7) 07/01/17 05:00 Baso # 0.0 10^3/uL (0.0-0.1) 07/01/17 05:00 Absolute Nucleated RBC 0.00 x10^3/uL 07/01/17 05:00 Nucleated RBC % 0.0 /100WBC 07/01/17 05:00 VBG pH 7.377 (7.31-7.41) 07/01/17 08:10 VBG pCO2 17.9 mmHg (41-51) L 06/30/17 15:26 VBG pO2 113.5 mmHg (25-47) H 06/30/17 15:26 VBG HCO3 6.6 mmol/L (23-28) L 06/30/17 15:26 VBG Total CO2 7.2 mmol/L (24-29) L 06/30/17 15:26 VBG O2 Saturation 97.3 % (60-80) H 06/30/17 15:26 VBG Base Excess -19.4 mmol/L (-2 - +2) L 06/30/17 15:26 Ionized Calcium 1.07 mmol/L (1.15-1.33) L 07/01/17 08:10 Sodium 133 mmol/L (135-145) L 07/01/17 05:00 Potassium 3.6 mmol/L (3.5-5.0) 07/01/17 05:00 Chloride 103 mmol/L (101-111) 07/01/17 05:00 Carbon Dioxide 21 mmol/L (21-32) 07/01/17 05:00 Anion Gap 9.0 (6-13) 07/01/17 05:00 BUN 31 mg/dL (6-20) H 07/01/17 05:00 Creatinine 0.6 mg/dL (0.4-1.0) 07/01/17 05:00 Estimated GFR (MDRD) 114 (>89) 07/01/17 05:00 Glucose 179 mg/dL (70-100) H 07/01/17 05:00 Glycated Hemoglobin 13.9 % (4.6-6.2) H 07/01/17 05:00 Estim Average Glucose 352 (70-100) H 07/01/17 05:00 Calcium 7.7 mg/dL (8.5-10.3) L 07/01/17 05:00 Magnesium 1.9 mg/dL (1.7-2.8) 07/01/17 08:10 Total Bilirubin 1.8 mg/dL (0.2-1.0) H 06/30/17 12:40 AST 30 IU/L (10-42) 06/30/17 12:40 ALT 67 IU/L (10-60) H 06/30/17 12:40 Alkaline Phosphatase 287 IU/L (42-121) H 06/30/17 12:40 Troponin I < 0.04 ng/mL (<0.49) 07/01/17 05:00 Total Protein 8.1 g/dL (6.7-8.2) 06/30/17 12:40 Albumin 4.2 g/dL (3.2-5.5) 06/30/17 12:40 Globulin 3.9 g/dL (2.1-4.2) 06/30/17 12:40 Albumin/Globulin Ratio 1.1 (1.0-2.2) 06/30/17 12:40 Lipase 25 U/L (22-51) 06/30/17 12:40 Serum HCG, Qual NEGATIVE 06/30/17 12:40 Urine Color YELLOW 06/30/17 12:30 Urine Clarity CLOUDY (CLEAR) 06/30/17 12:30 Urine pH 5.5 PH (5.0-7.5) 06/30/17 12:30 Ur Specific [place] 1.025 (1.002-1.030) 06/30/17 12:30 Urine Protein NEGATIVE mg/dL (NEGATIVE) 06/30/17 12:30 Urine Glucose (UA) >=1000 mg/dL (NEGATIVE) H 06/30/17 12:30 Urine Ketones >=80 mg/dL (NEGATIVE) H 06/30/17 12:30 Urine Occult Blood MODERATE (NEGATIVE) H 06/30/17 12:30 Urine Nitrite NEGATIVE (NEGATIVE) 06/30/17 12:30 Urine Bilirubin NEGATIVE (NEGATIVE) 06/30/17 12:30 Urine Urobilinogen 0.2 (NORMAL) E.U./dL (NORMAL) 06/30/17 12:30 Ur Leukocyte Esterase NEGATIVE (NEGATIVE) 06/30/17 12:30 Urine RBC 11-25 /HPF (0-5) H 06/30/17 12:30 Urine WBC 4-5 /HPF (0-5) 06/30/17 12:30 Ur Squamous Epith Cells MANY Squamous (<= Few) H 06/30/17 12:30 Urine Bacteria Many /HPF (None Seen) H 06/30/17 12:30 Urine Yeast PRESENT 06/30/17 12:30 Ur Microscopic Review INDICATED 06/30/17 12:30 Urine Culture Comments NOT INDICATED 06/30/17 12:30 Serum Ketones SMALL (NEGATIVE) H 07/01/17 05:00 - Procedures Procedures: Procedures DETACHMENT AT RIGHT 1ST TOE, LOW, OPEN APPROACH (03/14/17) INSERT INFUSION DEV IN R INT JUGULAR VEIN, PERC (04/21/16) INSERTION OF INFUSION DEV INTO R SUBCLAV VEIN, PERC APPROACH (03/14/17) INSERTION OF INFUSION DEV INTO SUP VENA CAVA, PERC APPROACH (04/30/17) INSERTION OF INFUSION DEVICE INTO R ATRIUM, PERC APPROACH (12/04/15) TRANSFUSE NONAUT RED BLOOD CELLS IN PERIPH VEIN, PERC (01/22/17) ULTRASONOGRAPHY OF RIGHT JUGULAR VEINS, GUIDANCE (04/21/16) ABX Reporting Has patient been on IV antibiotics over the past 48 hours?: No
[2017-07-01 17:28] LABS: MUDS CUTOFF CONCENTRATIONS CUTOFF CONC BELOW:
[2017-07-01 17:36] LABS: BILIRUBIN,URINE NEGATIVE (NEGATIVE); GLUCOSE, URINE (UA) >=1000 mg/dL (NEGATIVE); KETONES,URINE (UA) 15 mg/dL (NEGATIVE); LEUKOCYTE ESTERASE, URINE TRACE (NEGATIVE); NITRITE,URINE NEGATIVE (NEGATIVE); OCCULT BLOOD,URINE TRACE-INTA (NEGATIVE); PROTEIN,URINE NEGATIVE (NEGATIVE); UROBILINOGEN,URINE 0.2 (NORMAL) E.U./dL (NORMAL)
[2017-07-01 17:37] LABS: CLARITY,URINE HAZY (CLEAR)
[2017-07-01 17:41] LABS: AMPHETAMINE SCREEN,URINE NEGATIVE (NEGATIVE); BENZODIAZEPINES SCREEN, URINE NEGATIVE (NEGATIVE); COCAINE SCREEN URINE NEGATIVE (NEGATIVE); METHADONE SCREEN, URINE NEGATIVE (NEGATIVE); METHAMPHETAMINES SCREEN, URINE NEGATIVE (NEGATIVE); OPIATE SCREEN, URINE NEGATIVE (NEGATIVE); OXYCODONE SCREEN, URINE NEGATIVE (NEGATIVE); PROPOXYPHENE SCREEN, URINE NEGATIVE (NEGATIVE); TRICYCLIC ANTIDEPRESSANT,URINE POSITIVE (NEGATIVE)
[2017-07-01 19:22] LABS: BACTERIA,URINE Many /HPF (None Seen); RBC,URINE None Seen /HPF (0-5); SQUAMOUS EPITHELIAL CELL,UR MANY Squamous (<= Few)
[2017-07-01 19:23] LABS: CRYSTALS,URINE 0-2 Calcium Oxalate /LPF; YEAST,URINE PRESENT
--- NOTE | 2017-07-01 21:09 | HISTORY & PHYSICAL EXAMINATION ---
DATE OF SERVICE: 06/30/2017 Physician: Jayshree Vides MD HISTORY OF PRESENT ILLNESS: This is a 36-year-old white female with a history of methamphetamine abuse, coronary disease with prior [place], peripheral vascular disease with prior amputation of toes, history of noncompliance with medications, personality disorder, diabetes on insulin, repeat and frequent admissions for DKA. The patient was last here approximately a month ago with DKA exacerbation. She again presented, found confused sleeping in her tent as she is a homeless person and stating she ran out of her medications several days ago and was taking nothing. She was found to be again in DKA and admitted to the ICU. ALLERGIES 1. CODEINE. 2. HYDROCODONE. 3. MILK. 4. NITROFURANTOIN. 5. PAPER TAPE. MEDICATIONS 1. Ibuprofen. 2. Elavil 50 mg every evening. 3. Pletal 100 mg b.i.d. 4. Klonopin 0.5 mg b.i.d. 5. Clonidine 0.1 mg b.i.d. 6. Diltiazem 120 daily. 7. Cymbalta 60 mg daily. 8. Gabapentin 600 mg t.i.d. 9. Insulin 12 units of NovoLog t.i.d. with meals. 10. Lantus insulin 70 units subq daily in the a.m. 11. Robaxin 500 mg b.i.d. 12. Toprol-XL 25 mg b.i.d. 13. Ditropan 5 mg b.i.d. REVIEW OF SYSTEMS: Review of systems was done by review of chart and ER patient records as the patient is currently somnolent and also difficult to arouse as she is in DKA. When she is awake, she tells me that she has a bloody discharge which is itchy from her vagina. PHYSICAL EXAMINATION HEENT: She is edentulous. Oral mucosa is dry. NECK: No JVD or carotid bruits. CHEST: Clear. HEART: Sounds distant, normal. No audible murmur. ABDOMEN: Soft. EXTREMITIES: No edema. She has blackened eschars of her second toes of both feet. Her great toes of both feet are white and cool. NEUROLOGIC: Obtunded, otherwise nonfocal. LABORATORY DATA: Sodium 122, potassium 5.5, anion gap 35, BUN 60, creatinine 1.4, bilirubin 1.8, AST normal, ALT 67, alkaline phosphatase 287, hCG negative. White blood count 10.4, hemoglobin 13.8, RDW 17, platelet count 361. Urinalysis had many bacteria, but also many squamous cells. Toxicology showed positive tricyclics and methamphetamine was negative, moderate ketones. Venous blood gas pH 7.007, pCO2 18, pO2 of 61. CHEST X-RAY: No active disease. EKG: Sinus tachycardia, nonspecific changes. IMPRESSION 1. Diabetic ketoacidosis. 2. Vaginitis. 3. Atherosclerotic peripheral vascular disease with ulcerations. 4. Chronic pain. 5. Personality disorder in adult. 6. Homeless, single person. PLAN: Place the patient in the ICU, DKA protocol. Insulin drip, saline for hydration, monitor glucose closely, change hydration and insulin drip when her anion gap closes and glucose is under 200. Evaluate her toes for possible osteomyelitis. Culture any open or wet wounds and do blood cultures. Resume her p.o. medications when she is more awake and able to safely take her p.o. medication. Continue management for her peripheral vascular disease, hypertension, personality disorder and pain. CODE STATUS: FULL CODE. DVT PROPHYLAXIS: SCDs. ATTESTATION: The patient is expected to be discharged or transferred to another facility within 96 hours: Yes. TD: 07/01/2017 21:08
[2017-07-01] MEDS: AMITRIPTYLINE 25 MG TABLET PO SCH (21:31)
[2017-07-01] MEDS: clonazePAM 0.5 MG TABLET PO PRN (21:31)
[2017-07-02] MEDS: SODIUM CHLORIDE FLUSH 0.9% 10 ML SYRINGE IVP PRN ×4 (04:18→21:09)
[2017-07-02] MEDS: BENZOCAINE/MENTHOL LOZENGE MM PRN ×4 (04:18→21:14)
[2017-07-02 05:02] LABS: CALCIUM 8.2 mg/dL (8.5-10.3); MAGNESIUM 1.8 mg/dL (1.7-2.8)
[2017-07-02] MEDS: GABAPENTIN 300 MG CAPSULE PO SCH ×3 (05:51→21:10)
[2017-07-02] MEDS ORDERED: POTASSIUM CHLORIDE 20 MEQ TABLET PO SCH (08:00)
[2017-07-02] MEDS: clonazePAM 0.5 MG TABLET PO PRN ×2 (08:49→21:09)
[2017-07-02] MEDS: CILOSTAZOL 100 MG TABLET PO SCH ×2 (08:50→21:10)
[2017-07-02] MEDS: OXYBUTYNIN 5MG TABLET PO SCH ×2 (08:50→21:09)
[2017-07-02] MEDS: DULoxetine 20 MG CAPSULE PO SCH (08:51)
[2017-07-02] MEDS: cloNIDine 0.1 MG TABLET PO SCH ×2 (08:56→21:10)
[2017-07-02] MEDS: PANTOPRAZOLE 40 MG VIAL IVP SCH ×2 (09:09→21:08)
[2017-07-02] MEDS: ACETAMINOPHEN 1,000 MG/100 ML 100 ML IV PRN ×2 (09:13→16:45)
[2017-07-02] MEDS: INSULIN ASPART 300 UNIT/3 ML PEN SUBQ SCH ×5 (09:18→21:10)
[2017-07-02] MEDS: INSULIN GLARGINE 300 UNIT/3 ML PEN SUBQ SCH (09:22)
[2017-07-02] MEDS: SODIUM CHLORIDE FLUSH 0.9% 10 ML SYRINGE IVP SCH ×4 (10:23→21:09)
[2017-07-02] MEDS ORDERED: GADOBUTROL 10 MMOL/10 ML SYRINGE ONE (11:17)
[2017-07-02] MEDS ORDERED: LORazepam 2 MG/ML VIAL IVP ONE ×2 (12:27→14:58)
[2017-07-02] MEDS: IBUPROFEN 600 MG TABLET PO PRN ×2 (14:18→22:00)
[2017-07-02] MEDS: diltiaZEM CD 120 MG CAPSULE PO SCH (14:19)
[2017-07-02] MEDS: METOPROLOL SUCCINATE 25 MG TABLET PO SCH ×2 (14:19→21:09)
[2017-07-02] MEDS ORDERED: LORazepam 2 MG/ML VIAL IVP SCH (15:00)
[2017-07-02] MEDS ORDERED: GADOBUTROL 7.5 MMOL/7.5 ML SYRINGE IVP ONE (16:07)
--- NOTE | 2017-07-02 17:05 | MRI Report ---
EXAM: RIGHT FOREFOOT MRI WITHOUT AND WITH CONTRAST EXAM DATE: 07/02/2017 11:31 AM. CLINICAL HISTORY: Possible toe osteomyelitis. History of diabetes mellitus. COMPARISON: Right foot 3 views 03/16/2017. TECHNIQUE: Multiplanar, multisequence T1-weighted and fluid-sensitive sequences of the forefoot befor e and after administration of intravenous contrast. IV contrast: 6 cc Gadavist. Other: None. FINDINGS: Bones: 1 . Great toe: The remaining proximal phalanx great toe following the distal phalanx amputation is wi thout signal abnormality on the T1-weighted sequence to confirm osteomyelitis. There is edema of the proximal phalanx. Increase increased soft tissue great toe adjacent to the proximal phalanx head is c onsistent with postsurgical changes or cellulitis. 2. Second digit: Sagittal contrast images are severely degraded by motion artifact. There is decrease d marrow signal of the distal phalanx on the sagittal T1-weighted sequence which corresponds to edema or increased signal on the sagittal STIR sequence. Possible osteomyelitis distal phalanx second digi t. Shallow ulceration is noted at the dorsal aspect of the distal second digit. There is second digit cellulitis. 3. Third digit: The phalanges of the third digit on the sagittal T1-weighted sequence are without mar row signal abnormality. Contrast images are limited secondary to severe motion artifact. Negative for osteomyelitis. Magnetic susceptibility artifact is noted at the plantar aspect base third digit cons istent with prior surgery or a foreign body (image 21 series [id number]). 4. Fourth digit: Possible osseous destruction distal phalanx fourth digit on the sagittal T1-weighted sequence corresponds to increased signal on the sagittal STIR sequence degraded by motion artifact. Cellulitis fourth digit. 5. Fifth digit: Negative for osteomyelitis. IMPRESSION: 1. Evaluation of the forefoot is severely compromised on all sequences except for the sagittal T1 and sagittal STIR sequences. 2. Strong suspicion for osteomyelitis distal phalanx second digit. Correlate with radiographs. 3. Strong suspicion for osteomyelitis distal phalanx fourth digit. Correlate with radiographs. [facility] MUSCULOSKELETAL RADIOLOGY SECTION Referring Provider Line: [phone] SITE ID: [id number]
--- NOTE | 2017-07-02 17:22 | PROVIDER PROGRESS NOTE ---
Assessment/Plan - Problem List (1) DKA (diabetic ketoacidoses) Qualifiers: Diabetes mellitus type: type 1 Diabetes mellitus complication detail: without coma Qualified Code(s): E10.10 - Type 1 diabetes mellitus with ketoacidosis without coma Assessment/Plan: Resolved. Will resume her home doses of Lantus and Reg Insulin plus ss coverage. (2) PVD (peripheral vascular disease) Assessment/Plan: Continue Pletal and antiplatelet agents. (3) Osteomyelitis of toe of left foot Assessment/Plan: Pt already has PICC line. She will need 6 weeks of iv antibiotics and therefore she will need placement in an LTAC. (4) Osteomyelitis of toe of right foot Assessment/Plan: As above. (5) Hypokalemia with shifts of fluid from extracellular to intracellular space Assessment/Plan: Replace and follow K. - Current Meds Current Meds: Current Medications Generic Name Dose Route Start Last Admin Trade Name Freq PRN Reason Stop Dose Admin Amitriptyline HCl 50 mg 06/30/17 21:00 07/01/17 21:31 Elavil PO 50 mg QPM SYLVIA Administration Cilostazol 100 mg 06/30/17 21:00 07/02/17 08:50 Pletal PO 100 mg BID SYLVIA Administration Clonazepam 0.5 mg 06/30/17 15:26 07/02/17 08:49 Klonopin PO 0.5 mg BID PRN Administration Anxiety Duloxetine HCl 60 mg 07/01/17 09:00 07/02/17 08:51 Cymbalta PO 60 mg DAILY SYLVIA Administration Gabapentin 600 mg 06/30/17 22:00 07/02/17 14:15 Neurontin PO 600 mg TID SYLVIA Administration Acetaminophen 100 mls @ 400 mls/hr 06/30/17 18:34 07/02/17 17:08 Ofirmev IV Infused Q6HR PRN Infusion PAIN Ibuprofen 600 mg 06/30/17 15:06 07/02/17 14:18 Motrin PO 600 mg Q6HR PRN Administration Pain 1 to 4 Insulin Aspart 1 - 9 unit 07/01/17 08:00 07/02/17 16:53 Novolog SUBQ 9 unit 0800,1200,1700,2100 SYLVIA Administration Protocol Insulin Aspart 12 unit 07/02/17 18:00 07/02/17 17:10 Novolog SUBQ 12 unit TIDWM SYLVIA Administration Insulin Glargine 70 unit 07/01/17 09:00 07/02/17 09:22 Lantus Solostar SUBQ 70 unit DAILY SYLVIA Administration Oxybutynin Chloride 5 mg 06/30/17 21:00 07/02/17 08:50 Ditropan PO 5 mg BID SYLVIA Administration Pantoprazole Sodium 40 mg 06/30/17 21:00 07/02/17 09:09 Protonix IVP 40 mg BID SYLVIA Administration Prochlorperazine Edisylate 10 mg 06/30/17 15:06 06/30/17 17:37 Compazine Inj IVP 10 mg Q6HR PRN Administration Nausea / Vomiting Sodium Chloride 10 ml 06/30/17 17:00 07/02/17 10:23 Normal Saline Flush 0.9% IVP 10 ml 0100,0900,1700 SYLVIA Administration Sodium Chloride 10 ml 06/30/17 15:06 07/02/17 10:22 Normal Saline Flush 0.9% IVP 10 ml PRN PRN Administration NEEDED PER PROVIDER ORDERS Throat Lozenges 1 lozenge 07/01/17 21:41 07/02/17 14:24 Cepacol MM 1 lozenge Q2HR PRN Administration Throat pain - Lab Result Fish Bone Diagrams: 07/01/17 05:00 07/02/17 04:23 - Additional Planning My Orders: My Active Orders 07/01/17 21:41 Benzocaine/Menthol [Cepacol] 1 lozenge MM Q2HR PRN 07/02/17 11:00 Foot LT W/WO [MRI] Routine 07/02/17 17:04 cloNIDine [Catapres] 0.1 mg PO BID 07/02/17 17:05 diltiaZEM CD [Cardizem Cd] 120 mg PO DAILY 07/02/17 17:07 Metoprolol Succinate [Toprol Xl] 25 mg PO BID 07/02/17 18:00 Insulin Aspart [NovoLOG] 12 unit SUBQ TIDWM 07/03/17 05:00 CALCIUM [CHEM] DAILYLAB MAGNESIUM [CHEM] DAILYLAB POTASSIUM [CHEM] DAILYLAB Subjective - Subjective Patient Reports: Feeling Better Nursing Reports: Other (Somnolent again, doesn't awaken to take breakfast.) Objective Vital Signs: Vital Signs - 24 hr 05/12/0907/02/17 07/02/17 21:00 00:00 04:02 Temperature 37 C Heart Rate [ 102 H 102 H 94 Monitoring electrodes] Respiratory 17 17 22 Rate Blood Pressure 123/83 H 103/59 L 93/61 [Left Brachial artery] O2 Saturation 99 97 98 07/02/17 07/02/17 07/02/17 08:00 09:00 09:15 Temperature 36.9 C Heart Rate [ 91 102 H 96 Monitoring electrodes] Respiratory 26 H 21 24 Rate Blood Pressure 85/50 L 114/77 114/77 [Left Brachial artery] O2 Saturation 96 96 98 07/02/17 07/02/17 07/02/17 10:25 13:50 16:00 Temperature 36.4 C L Heart Rate [ 100 108 H 109 H Monitoring electrodes] Respiratory 31 H 16 Rate Blood Pressure 96/61 117/69 110/62 [Left Brachial artery] O2 Saturation 100 Oxygen O2 Source Room air I&O (Last 24 Hrs): Intake and Output Totals x24h 06/30/17 07/01/17 07/02/17 23:59 23:59 23:59 Intake Total 2079.95 2997.050 2009 Output Total 800 225 Balance 1279.95 2772.050 2009 General: No acute distress HEENT: Mucous membr. moist/pink Neck: Supple Neuro: Other (Lethargic) Cardiovascular: Regular rate Respiratory: No respiratory distress Abdomen: Soft Extremities: Other (Dry black eschars of 2 toes) - Results Results: Laboratory Results WBC 7.0 x10^3/uL (4.8-10.8) 07/01/17 05:00 RBC 4.66 10^6/uL (4.20-5.40) 07/01/17 05:00 Hgb 10.9 g/dL (12.0-16.0) L 07/01/17 05:00 Hct 34.9 % (37.0-47.0) L 07/01/17 05:00 MCV 74.8 fL (81.0-99.0) L 07/01/17 05:00 MCH 23.4 pg (27.0-31.0) L 07/01/17 05:00 MCHC 31.2 g/dL (32.0-36.0) L 07/01/17 05:00 RDW 17.4 % (12.0-15.0) H 07/01/17 05:00 Plt Count 312 10^3/uL (130-450) 07/01/17 05:00 MPV 8.2 fL (7.9-10.8) 07/01/17 05:00 Neut # 4.6 10^3/uL (1.5-6.6) 07/01/17 05:00 Lymph # 1.9 10^3/uL (1.5-3.5) 07/01/17 05:00 Ector # 0.6 10^3/uL (0.0-1.0) 07/01/17 05:00 Eos # 0.0 10^3/uL (0.0-0.7) 07/01/17 05:00 Baso # 0.0 10^3/uL (0.0-0.1) 07/01/17 05:00 Absolute Nucleated RBC 0.00 x10^3/uL 07/01/17 05:00 Nucleated RBC % 0.0 /100WBC 07/01/17 05:00 VBG pH 7.377 (7.31-7.41) 07/01/17 08:10 VBG pCO2 17.9 mmHg (41-51) L 06/30/17 15:26 VBG pO2 113.5 mmHg (25-47) H 06/30/17 15:26 VBG HCO3 6.6 mmol/L (23-28) L 06/30/17 15:26 VBG Total CO2 7.2 mmol/L (24-29) L 06/30/17 15:26 VBG O2 Saturation 97.3 % (60-80) H 06/30/17 15:26 VBG Base Excess -19.4 mmol/L (-2 - +2) L 06/30/17 15:26 Ionized Calcium 1.07 mmol/L (1.15-1.33) L 07/01/17 08:10 Sodium 133 mmol/L (135-145) L 07/01/17 05:00 Potassium 3.2 mmol/L (3.5-5.0) L 07/02/17 04:23 Chloride 103 mmol/L (101-111) 07/01/17 05:00 Carbon Dioxide 21 mmol/L (21-32) 07/01/17 05:00 Anion Gap 9.0 (6-13) 07/01/17 05:00 BUN 31 mg/dL (6-20) H 07/01/17 05:00 Creatinine 0.6 mg/dL (0.4-1.0) 07/01/17 05:00 Estimated GFR (MDRD) 114 (>89) 07/01/17 05:00 Glucose 179 mg/dL (70-100) H 07/01/17 05:00 Glycated Hemoglobin 13.9 % (4.6-6.2) H 07/01/17 05:00 Estim Average Glucose 352 (70-100) H 07/01/17 05:00 Calcium 8.2 mg/dL (8.5-10.3) L 07/02/17 04:23 Magnesium 1.8 mg/dL (1.7-2.8) 07/02/17 04:23 Total Bilirubin 1.8 mg/dL (0.2-1.0) H 06/30/17 12:40 AST 30 IU/L (10-42) 06/30/17 12:40 ALT 67 IU/L (10-60) H 06/30/17 12:40 Alkaline Phosphatase 287 IU/L (42-121) H 06/30/17 12:40 Troponin I < 0.04 ng/mL (<0.49) 07/01/17 05:00 Total Protein 8.1 g/dL (6.7-8.2) 06/30/17 12:40 Albumin 4.2 g/dL (3.2-5.5) 06/30/17 12:40 Globulin 3.9 g/dL (2.1-4.2) 06/30/17 12:40 Albumin/Globulin Ratio 1.1 (1.0-2.2) 06/30/17 12:40 Lipase 25 U/L (22-51) 06/30/17 12:40 Serum HCG, Qual NEGATIVE 06/30/17 12:40 Urine Color YELLOW 07/01/17 16:38 Urine Clarity HAZY (CLEAR) 07/01/17 16:38 Urine pH 6.0 PH (5.0-7.5) 07/01/17 16:38 Ur Specific [place] 1.020 (1.002-1.030) 07/01/17 16:38 Urine Protein NEGATIVE mg/dL (NEGATIVE) 07/01/17 16:38 Urine Glucose (UA) >=1000 mg/dL (NEGATIVE) H 07/01/17 16:38 Urine Ketones 15 mg/dL (NEGATIVE) H 07/01/17 16:38 Urine Occult Blood TRACE-INTA (NEGATIVE) 07/01/17 16:38 Urine Nitrite NEGATIVE (NEGATIVE) 07/01/17 16:38 Urine Bilirubin NEGATIVE (NEGATIVE) 07/01/17 16:38 Urine Urobilinogen 0.2 (NORMAL) E.U./dL (NORMAL) 07/01/17 16:38 Ur Leukocyte Esterase TRACE (NEGATIVE) H 07/01/17 16:38 Urine RBC None Seen /HPF (0-5) 07/01/17 16:38 Urine WBC 11-25 /HPF (0-5) H 07/01/17 16:38 Ur Squamous Epith Cells MANY Squamous (<= Few) H 07/01/17 16:38 Urine Crystals 0-2 Calcium Oxalate /LPF 07/01/17 16:38 Urine Bacteria Many /HPF (None Seen) H 07/01/17 16:38 Urine Yeast PRESENT 07/01/17 16:38 Ur Microscopic Review INDICATED 07/01/17 16:38 Urine Culture Comments NOT INDICATED 07/01/17 16:38 Urine Opiates Screen NEGATIVE (NEGATIVE) 07/01/17 16:38 Ur Oxycodone Screen NEGATIVE (NEGATIVE) 07/01/17 16:38 Urine Methadone Screen NEGATIVE (NEGATIVE) 07/01/17 16:38 Ur Propoxyphene Screen NEGATIVE (NEGATIVE) 07/01/17 16:38 Ur Barbiturates Screen NEGATIVE (NEGATIVE) 07/01/17 16:38 Ur Tricyclics Screen POSITIVE (NEGATIVE) H 07/01/17 16:38 Ur Phencyclidine Scrn NEGATIVE (NEGATIVE) 07/01/17 16:38 Ur Amphetamine Screen NEGATIVE (NEGATIVE) 07/01/17 16:38 U Methamphetamines Scrn NEGATIVE (NEGATIVE) 07/01/17 16:38 U Benzodiazepines Scrn NEGATIVE (NEGATIVE) 07/01/17 16:38 Urine Cocaine Screen NEGATIVE (NEGATIVE) 07/01/17 16:38 U Cannabinoids Screen NEGATIVE (NEGATIVE) 07/01/17 16:38 Serum Ketones SMALL (NEGATIVE) H 07/01/17 05:00 - Procedures Procedures: Procedures DETACHMENT AT RIGHT 1ST TOE, LOW, OPEN APPROACH (03/14/17) INSERT INFUSION DEV IN R INT JUGULAR VEIN, PERC (04/21/16) INSERTION OF INFUSION DEV INTO R SUBCLAV VEIN, PERC APPROACH (03/14/17) INSERTION OF INFUSION DEV INTO SUP VENA CAVA, PERC APPROACH (04/30/17) INSERTION OF INFUSION DEVICE INTO R ATRIUM, PERC APPROACH (12/04/15) TRANSFUSE NONAUT RED BLOOD CELLS IN PERIPH VEIN, PERC (01/22/17) ULTRASONOGRAPHY OF RIGHT JUGULAR VEINS, GUIDANCE (04/21/16) ABX Reporting Has patient been on IV antibiotics over the past 48 hours?: No
--- NOTE | 2017-07-02 17:22 | MRI Report ---
EXAM: LEFT FOREFOOT MRI WITHOUT AND WITH CONTRAST EXAM DATE: 07/02/2017 02:58 PM. CLINICAL HISTORY: Possible left fourth toe osteomyelitis. History of diabetes mellitus. COMPARISON: Left foot 3 views 01/24/2017 and MRI forefoot 01/25/2017. TECHNIQUE: Multiplanar, multisequence T1-weighted and fluid-sensitive sequences of the forefoot befor e and after administration of intravenous contrast. IV contrast: 6 cc Gadavist. Other: None. FINDINGS: 1. Great toe: There is possible distal phalanx erosion or marrow decreased signal distal phalanx tuft great toe on the sagittal T1-weighted sequence degraded by motion artifact. Corresponding enhancemen t and edema edema distal phalanx great toe on the contrast T1 weighted and sagittal STIR sequences. P ossible cellulitis distal great toe. Mild increased fluid first metatarsal-phalangeal joint. 2. Second toe: The phalanges of the second digit are without marrow signal abnormality on the T1-weig hted sagittal sequence. There is a possible edema of the second toe phalanges on the sagittal STIR se quence. Second metatarsophalangeal joint is within normal limits. 3. Third toe: The phalanges are without decrease marrow signal on the T1-weighted images. There is ed coty of the distal phalanx third toe on the sagittal STIR sequence. There is a third toe cellulitis. N o definite osteomyelitis. 4. Fourth toe: The distal phalanx fourth toe is replaced by intermediate signal with indistinct carlotta ns on the sagittal T1-weighted sequence. There is enhancement following intravenous contrast and defi nite marrow edema distal phalanx. Cellulitis is seen with ulceration of fourth toe. Findings consiste nt with osteomyelitis distal phalanx fourth toe. 5. Fifth digit: The phalanges are without marrow signal abnormality. There is fifth digit edema and t here is a fifth metatarsophalangeal joint periarticular soft tissue edema. Bursa or fibrosis plantar aspect of fifth metatarsal head. IMPRESSION: 1. Osteomyelitis distal phalanx fourth toe. 2. Strong suspicion for distal phalanx tuft great toe osteomyelitis. Correlate with radiographs. [facility] Referring Provider Line: [phone] SITE ID: [id number]
[2017-07-02] MEDS ORDERED: CEFEPIME 2 GM in SODIUM CHLORIDE 0.9% MINIBAG 100 ML IV SCH (18:00)
[2017-07-02] MEDS ORDERED: VANCOMYCIN PER PHARMACY 100 GM in SODIUM CHLORIDE 0.9% 250 ML IV SCH (18:00)
[2017-07-02] MEDS ORDERED: VANCOMYCIN INJ 1 GM in SODIUM CHLORIDE 0.9% 500 ML IV STA (18:19)
[2017-07-02] MEDS: CEFEPIME 2 GM in SODIUM CHLORIDE 0.9% MINIBAG 100 ML IV SCH (18:55)
[2017-07-02] MEDS: AMITRIPTYLINE 25 MG TABLET PO SCH (21:09)
[2017-07-03] MEDS: ACETAMINOPHEN 1,000 MG/100 ML 100 ML IV PRN ×3 (01:40→23:20)
[2017-07-03] MEDS ORDERED: SODIUM CHLORIDE FLUSH 0.9% 10 ML SYRINGE ONE (01:42)
[2017-07-03] MEDS ORDERED: VANCOMYCIN INJ 1 GM in SODIUM CHLORIDE 0.9% 500 ML IV SCH (02:00)
[2017-07-03] MEDS: SODIUM CHLORIDE FLUSH 0.9% 10 ML SYRINGE IVP PRN ×7 (05:49→18:22)
[2017-07-03] MEDS: GABAPENTIN 300 MG CAPSULE PO SCH ×3 (05:49→21:57)
[2017-07-03] MEDS: SODIUM CHLORIDE FLUSH 0.9% 10 ML SYRINGE IVP SCH ×2 (05:49→17:00)
[2017-07-03 06:27] LABS: CALCIUM 8.1 mg/dL (8.5-10.3); MAGNESIUM 1.5 mg/dL (1.7-2.8)
[2017-07-03] MEDS: BENZOCAINE/MENTHOL LOZENGE MM PRN (07:52)
[2017-07-03] MEDS: INSULIN ASPART 300 UNIT/3 ML PEN SUBQ SCH ×7 (08:03→21:05)
[2017-07-03] MEDS: INSULIN GLARGINE 300 UNIT/3 ML PEN SUBQ SCH (08:07)
[2017-07-03] MEDS: cloNIDine 0.1 MG TABLET PO SCH ×2 (08:22→21:05)
[2017-07-03] MEDS: METOPROLOL SUCCINATE 25 MG TABLET PO SCH ×2 (08:23→21:05)
[2017-07-03] MEDS: diltiaZEM CD 120 MG CAPSULE PO SCH (08:23)
[2017-07-03] MEDS: DULoxetine 20 MG CAPSULE PO SCH (08:36)
[2017-07-03] MEDS: OXYBUTYNIN 5MG TABLET PO SCH ×2 (08:37→21:05)
[2017-07-03] MEDS: CILOSTAZOL 100 MG TABLET PO SCH ×2 (08:37→21:05)
[2017-07-03] MEDS: CEFEPIME 2 GM in SODIUM CHLORIDE 0.9% MINIBAG 100 ML IV SCH ×4 (08:38→21:04)
[2017-07-03] MEDS: PANTOPRAZOLE 40 MG VIAL IVP SCH ×2 (08:39→21:05)
[2017-07-03] MEDS ORDERED: POTASSIUM CHLORIDE 20 MEQ TABLET PO ONE (08:50)
[2017-07-03] MEDS ORDERED: MAGNESIUM SULFATE 1 GM in SODIUM CHLORIDE 0.9% 50 ML IV ONE (08:51)
--- NOTE | 2017-07-03 09:58 | PROVIDER PROGRESS NOTE ---
Subjective - Prog Note Date Prog Note Date: 07/03/17 Prog Note Time: 08:30 - Subjective Subjective: I was asked by the hospitalist to evaluate the patient's vaginal discharge and unexpected uterine bleeding. When I entered the room the patient was dozing and difficult to wake. She states that she has a unusual smelling discharge with some blood-tinged. She has not had a menstrual period in some time due to her diabetes. She has not had a Pap smear in many years. She asked that I delay the interview and exam until she is better rested later this afternoon or tomorrow. Objective - Vital Signs/Intake & Output Vital Signs: Vital Signs Pulse Resp BP Pulse Ox 07/03/17 08:04 103 H 23 109/72 92 Intake & Output: Intake & Output 06/30/17 07/01/17 07/02/17 07/03/17 23:59 23:59 23:59 23:59 Intake Total 2079.95 2997.050 3270 1470 Output Total 800 225 Balance 1279.95 2772.050 3270 1470 - Lab Results Fish Bones: 07/01/17 05:00 07/03/17 05:30 Other Labs: Lab Results x24hrs 07/03/17 07/03/17 07/02/17 Range/Units 07:53 05:30 21:06 Potassium 3.0 L (3.5-5.0) mmol/L POC Whole Bld Glucose 155 H 272 H (70 - 100) mg/dL Calcium 8.1 L (8.5-10.3) mg/dL Magnesium 1.5 L (1.7-2.8) mg/dL 07/02/17 07/01/17 07/01/17 Range/Units 08:04 21:16 16:40 Potassium (3.5-5.0) mmol/L POC Whole Bld Glucose 244 H 320 H 306 H (70 - 100) mg/dL Calcium (8.5-10.3) mg/dL Magnesium (1.7-2.8) mg/dL 07/01/17 07/01/17 07/01/17 Range/Units 11:52 08:00 06:58 Potassium (3.5-5.0) mmol/L POC Whole Bld Glucose 135 H 168 H 198 H (70 - 100) mg/dL Calcium (8.5-10.3) mg/dL Magnesium (1.7-2.8) mg/dL 07/01/17 07/01/17 07/01/17 Range/Units 06:07 05:00 03:48 Potassium (3.5-5.0) mmol/L POC Whole Bld Glucose 116 H 168 H 163 H (70 - 100) mg/dL Calcium (8.5-10.3) mg/dL Magnesium (1.7-2.8) mg/dL 07/01/17 07/01/17 07/01/17 Range/Units 03:08 02:00 01:16 Potassium (3.5-5.0) mmol/L POC Whole Bld Glucose 166 H 177 H 206 H (70 - 100) mg/dL Calcium (8.5-10.3) mg/dL Magnesium (1.7-2.8) mg/dL 06/30/17 06/30/17 06/30/17 Range/Units 23:58 23:06 22:18 Potassium (3.5-5.0) mmol/L POC Whole Bld Glucose 234 H 250 H 278 H (70 - 100) mg/dL Calcium (8.5-10.3) mg/dL Magnesium (1.7-2.8) mg/dL 06/30/17 Range/Units 20:53 Potassium (3.5-5.0) mmol/L POC Whole Bld Glucose 305 H (70 - 100) mg/dL Calcium (8.5-10.3) mg/dL Magnesium (1.7-2.8) mg/dL
[2017-07-03] MEDS: IBUPROFEN 600 MG TABLET PO PRN ×2 (10:43→19:43)
[2017-07-03] MEDS ORDERED: ALTEPLASE 2 MG VIAL IC ONE ×2 (11:44→15:00)
--- NOTE | 2017-07-03 11:49 | XRAY Report ---
EXAM: CHEST RADIOGRAPHY EXAM DATE: 07/03/2017 11:22 AM. CLINICAL HISTORY: Non functioning PICC line. COMPARISON: Chest radiograph dated 06/30/2017. TECHNIQUE: 1 view. FINDINGS: Lungs/Pleura: Focal opacity in the right hilar station and lateral aspect of the right midlung field. The left lung remains well-aerated and clear. Mediastinum: Within exam limitations, the cardiomediastinal contour is normal. Other: Right-sided PICC is similar in position. IMPRESSION: 1. Right-sided PICC similar position. 2. Focal opacity in the right hilar station and lateral aspect of the right midlung field are new sin ce prior examination and are nonspecific but may represent aspiration or infectious etiology. Recomme nd follow-up PA and lateral chest radiograph after treatment of current illness to ensure resolution of this finding. [facility] Referring Provider Line: [phone] SITE ID: [id number]
--- NOTE | 2017-07-03 11:49 | XRAY Preliminary Report ---
Exam: XR CHEST 1 VIEW X-RAY IMPRESSION: 1. Right-sided PICC similar position. 2. Focal opacity in the right hilar station and lateral aspect of the right midlung field are new sin ce prior examination and are nonspecific but may represent aspiration or infectious etiology. Recomme nd follow-up PA and lateral chest radiograph after treatment of current illness to ensure resolution of this finding. [facility] SITE ID: [id number]
[2017-07-03] MEDS: VANCOMYCIN INJ 1 GM in SODIUM CHLORIDE 0.9% 250 ML IV SCH ×2 (14:31→21:58)
--- NOTE | 2017-07-03 17:28 | PROVIDER PROGRESS NOTE ---
Assessment/Plan - Problem List (1) Osteomyelitis Qualifiers: Osteomyelitis type: subacute Osteomyelitis location: multiple sites Qualified Code(s): M86.29 - Subacute osteomyelitis, multiple sites Assessment/Plan: Pt has had scans (+) for osteo in 03/11, when she had toe amputations. Pt was seen by Orthopedics today and she will be scheduled for amputations again. Continue antibiotics. Plan will be for 6 weeks of iv antibiotics after debridement by amputations. PICC line already in place, but was plugged today. (2) Occluded PICC line Qualifiers: Encounter type: initial encounter Qualified Code(s): T82.898A - Other specified complication of vascular prosthetic devices, implants and grafts, initial encounter Assessment/Plan: Anesthesia did a consult, suggests TPA to unplug PICC, which did work, after CXR was ordered and should it was in a good position still. Pt had some iv antibiotics delayed. (3) PVD (peripheral vascular disease) Assessment/Plan: Continue [place] ASA. Surgical plan as above. (4) IDDM (insulin dependent diabetes mellitus) Assessment/Plan: Continue Insulin and DM diet and ss Insulin coverage and glu monitoring ac and hs. (5) DKA (diabetic ketoacidoses) Qualifiers: Diabetes mellitus type: type 1 Diabetes mellitus complication detail: without coma Qualified Code(s): E10.10 - Type 1 diabetes mellitus with ketoacidosis without coma Assessment/Plan: Resolved. - Current Meds Current Meds: Current Medications Generic Name Dose Route Start Last Admin Trade Name Freq PRN Reason Stop Dose Admin Amitriptyline HCl 50 mg 06/30/17 21:00 07/02/17 21:09 Elavil PO 50 mg QPM SYLVIA Administration Cilostazol 100 mg 06/30/17 21:00 07/03/17 08:37 Pletal PO 100 mg BID SYLVIA Administration Clonazepam 0.5 mg 06/30/17 15:26 07/02/17 21:09 Klonopin PO 0.5 mg BID PRN Administration Anxiety Clonidine HCl 0.1 mg 07/02/17 17:04 07/03/17 08:22 Catapres PO Not Given BID SYLVIA Diltiazem HCl 120 mg 07/02/17 17:05 07/03/17 08:23 Cardizem Cd PO Not Given DAILY SYLVIA Duloxetine HCl 60 mg 07/01/17 09:00 07/03/17 08:36 Cymbalta PO 60 mg DAILY SYLVIA Administration Gabapentin 600 mg 06/30/17 22:00 07/03/17 14:31 Neurontin PO 600 mg TID SYLVIA Administration Acetaminophen 100 mls @ 400 mls/hr 06/30/17 18:34 07/03/17 16:53 Ofirmev IV Infused Q6HR PRN Infusion PAIN Cefepime HCl 2 gm/ Sodium 100 mls @ 200 mls/hr 07/02/17 18:00 07/03/17 14:16 Chloride IV Infused BID SYLVIA Infusion Vancomycin HCl 1 gm/ Sodium 250 mls @ 250 mls/hr 07/03/17 14:00 07/03/17 15: 31 Chloride IV Infused Q8H SYLVIA Infusion Ibuprofen 600 mg 06/30/17 15:06 07/03/17 10:43 Motrin PO 600 mg Q6HR PRN Administration Pain 1 to 4 Insulin Aspart 1 - 9 unit 07/01/17 08:00 07/03/17 12:19 Novolog SUBQ 9 unit 0800,1200,1700,2100 SYLVIA Administration Protocol Insulin Aspart 12 unit 07/02/17 18:00 07/03/17 12:19 Novolog SUBQ 12 unit TIDWM SYLVIA Administration Insulin Glargine 70 unit 07/01/17 09:00 07/03/17 08:07 Lantus Solostar SUBQ 70 unit DAILY SYLVIA Administration Metoprolol Succinate 25 mg 07/02/17 17:07 07/03/17 08:23 Toprol Xl PO Not Given BID SYLVIA Oxybutynin Chloride 5 mg 06/30/17 21:00 07/03/17 08:37 Ditropan PO 5 mg BID SYLVIA Administration Pantoprazole Sodium 40 mg 06/30/17 21:00 07/03/17 08:39 Protonix IVP 40 mg BID SYLVIA Administration Prochlorperazine Edisylate 10 mg 06/30/17 15:06 06/30/17 17:37 Compazine Inj IVP 10 mg Q6HR PRN Administration Nausea / Vomiting Sodium Chloride 10 ml 06/30/17 17:00 07/03/17 05:49 Normal Saline Flush 0.9% IVP 10 ml 0100,0900,1700 SYLVIA Administration Sodium Chloride 10 ml 06/30/17 15:06 07/03/17 17:04 Normal Saline Flush 0.9% IVP 40 ml PRN PRN Administration NEEDED PER PROVIDER ORDERS Throat Lozenges 1 lozenge 07/01/17 21:41 07/03/17 07:52 Cepacol MM 1 lozenge Q2HR PRN Administration Throat pain - Lab Result Fish Bone Diagrams: 07/01/17 05:00 07/03/17 05:30 - Additional Planning My Orders: My Active Orders 07/02/17 17:04 cloNIDine [Catapres] 0.1 mg PO BID 07/02/17 17:05 diltiaZEM CD [Cardizem Cd] 120 mg PO DAILY 07/02/17 17:07 Metoprolol Succinate [Toprol Xl] 25 mg PO BID 07/02/17 18:00 Cefepime 2 gm Sodium Chloride 0.9% Minibag [Normal Saline 0.9% Minibag] 100 ml IV BID Insulin Aspart [NovoLOG] 12 unit SUBQ TIDWM 07/03/17 14:00 Vancomycin Inj [Vancomycin] 1 gm Sodium Chloride 0.9% [Normal Saline 0.9%] 250 ml IV Q8H 07/04/17 00:01 DIET [NPO except Meds at Midnight] [DIET] 07/04/17 05:00 BMP - BASIC METABOLIC PANEL [CHEM] DAILYLAB CBC - COMP BLD CT W/AUTO DIFF [HEME] DAILYLAB 07/04/17 08:00 Magnesium Oxide [Mag Ox] 400 mg PO DAILYWM Potassium Chloride [K-Dur] 20 meq PO DAILYWM 07/04/17 13:30 VANCOMYCIN TROUGH [CHEM] Timed Subjective - Subjective Patient Reports: Resting Comfortably Nursing Reports: Other (Pt is still very somnolent, Day#3.) Objective Vital Signs: Vital Signs - 24 hr 07/02/17 07/03/17 07/03/17 21:00 01:30 05:00 Temperature 36.3 C L 37.1 C 36.2 C L Heart Rate [ 108 H 118 H 104 H Monitoring electrodes] Respiratory 27 H 25 H 25 H Rate Blood Pressure 122/78 124/79 117/76 [Left Brachial artery] O2 Saturation 96 92 95 07/03/17 07/03/17 07/03/17 08:04 13:00 16:44 Temperature 37.9 C H 37.2 C Heart Rate [ 103 H 117 H 111 H Monitoring electrodes] Respiratory 23 25 H 32 H Rate Blood Pressure 109/72 125/76 119/73 [Left Brachial artery] O2 Saturation 92 94 95 Oxygen O2 Source Room air I&O (Last 24 Hrs): Intake and Output Totals x24h 07/01/17 07/02/17 07/03/17 23:59 23:59 23:59 Intake Total 2997.050 3270 2160 Output Total 225 Balance 2772.050 3270 2160 General: Other (Lethargic.) HEENT: Mucous membr. moist/pink Neck: Supple Cardiovascular: No murmurs Respiratory: No respiratory distress Abdomen: Soft Extremities: Other (Black eschars at tips of toes bilat) - Results Results: Laboratory Results WBC 7.0 x10^3/uL (4.8-10.8) 07/01/17 05:00 RBC 4.66 10^6/uL (4.20-5.40) 07/01/17 05:00 Hgb 10.9 g/dL (12.0-16.0) L 07/01/17 05:00 Hct 34.9 % (37.0-47.0) L 07/01/17 05:00 MCV 74.8 fL (81.0-99.0) L 07/01/17 05:00 MCH 23.4 pg (27.0-31.0) L 07/01/17 05:00 MCHC 31.2 g/dL (32.0-36.0) L 07/01/17 05:00 RDW 17.4 % (12.0-15.0) H 07/01/17 05:00 Plt Count 312 10^3/uL (130-450) 07/01/17 05:00 MPV 8.2 fL (7.9-10.8) 07/01/17 05:00 Neut # 4.6 10^3/uL (1.5-6.6) 07/01/17 05:00 Lymph # 1.9 10^3/uL (1.5-3.5) 07/01/17 05:00 [place] # 0.6 10^3/uL (0.0-1.0) 07/01/17 05:00 Eos # 0.0 10^3/uL (0.0-0.7) 07/01/17 05:00 Baso # 0.0 10^3/uL (0.0-0.1) 07/01/17 05:00 Absolute Nucleated RBC 0.00 x10^3/uL 07/01/17 05:00 Nucleated RBC % 0.0 /100WBC 07/01/17 05:00 VBG pH 7.377 (7.31-7.41) 07/01/17 08:10 VBG pCO2 17.9 mmHg (41-51) L 06/30/17 15:26 VBG pO2 113.5 mmHg (25-47) H 06/30/17 15:26 VBG HCO3 6.6 mmol/L (23-28) L 06/30/17 15:26 VBG Total CO2 7.2 mmol/L (24-29) L 06/30/17 15:26 VBG O2 Saturation 97.3 % (60-80) H 06/30/17 15:26 VBG Base Excess -19.4 mmol/L (-2 - +2) L 06/30/17 15:26 Ionized Calcium 1.07 mmol/L (1.15-1.33) L 07/01/17 08:10 Sodium 133 mmol/L (135-145) L 07/01/17 05:00 Potassium 3.0 mmol/L (3.5-5.0) L 07/03/17 05:30 Chloride 103 mmol/L (101-111) 07/01/17 05:00 Carbon Dioxide 21 mmol/L (21-32) 07/01/17 05:00 Anion Gap 9.0 (6-13) 07/01/17 05:00 BUN 31 mg/dL (6-20) H 07/01/17 05:00 Creatinine 0.6 mg/dL (0.4-1.0) 07/01/17 05:00 Estimated GFR (MDRD) 114 (>89) 07/01/17 05:00 Glucose 179 mg/dL (70-100) H 07/01/17 05:00 POC Whole Bld Glucose 264 mg/dL (70 - 100) H 07/03/17 16:29 Glycated Hemoglobin 13.9 % (4.6-6.2) H 07/01/17 05:00 Estim Average Glucose 352 (70-100) H 07/01/17 05:00 Calcium 8.1 mg/dL (8.5-10.3) L 07/03/17 05:30 Magnesium 1.5 mg/dL (1.7-2.8) L 07/03/17 05:30 Total Bilirubin 1.8 mg/dL (0.2-1.0) H 06/30/17 12:40 AST 30 IU/L (10-42) 06/30/17 12:40 ALT 67 IU/L (10-60) H 06/30/17 12:40 Alkaline Phosphatase 287 IU/L (42-121) H 06/30/17 12:40 Troponin I < 0.04 ng/mL (<0.49) 07/01/17 05:00 Total Protein 8.1 g/dL (6.7-8.2) 06/30/17 12:40 Albumin 4.2 g/dL (3.2-5.5) 06/30/17 12:40 Globulin 3.9 g/dL (2.1-4.2) 06/30/17 12:40 Albumin/Globulin Ratio 1.1 (1.0-2.2) 06/30/17 12:40 Lipase 25 U/L (22-51) 06/30/17 12:40 Serum HCG, Qual NEGATIVE 06/30/17 12:40 Urine Color YELLOW 07/01/17 16:38 Urine Clarity HAZY (CLEAR) 07/01/17 16:38 Urine pH 6.0 PH (5.0-7.5) 07/01/17 16:38 Ur Specific [place] 1.020 (1.002-1.030) 07/01/17 16:38 Urine Protein NEGATIVE mg/dL (NEGATIVE) 07/01/17 16:38 Urine Glucose (UA) >=1000 mg/dL (NEGATIVE) H 07/01/17 16:38 Urine Ketones 15 mg/dL (NEGATIVE) H 07/01/17 16:38 Urine Occult Blood TRACE-INTA (NEGATIVE) 07/01/17 16:38 Urine Nitrite NEGATIVE (NEGATIVE) 07/01/17 16:38 Urine Bilirubin NEGATIVE (NEGATIVE) 07/01/17 16:38 Urine Urobilinogen 0.2 (NORMAL) E.U./dL (NORMAL) 07/01/17 16:38 Ur Leukocyte Esterase TRACE (NEGATIVE) H 07/01/17 16:38 Urine RBC None Seen /HPF (0-5) 07/01/17 16:38 Urine WBC 11-25 /HPF (0-5) H 07/01/17 16:38 Ur Squamous Epith Cells MANY Squamous (<= Few) H 07/01/17 16:38 Urine Crystals 0-2 Calcium Oxalate /LPF 07/01/17 16:38 Urine Bacteria Many /HPF (None Seen) H 07/01/17 16:38 Urine Yeast PRESENT 07/01/17 16:38 Ur Microscopic Review INDICATED 07/01/17 16:38 Urine Culture Comments NOT INDICATED 07/01/17 16:38 Urine Opiates Screen NEGATIVE (NEGATIVE) 07/01/17 16:38 Ur Oxycodone Screen NEGATIVE (NEGATIVE) 07/01/17 16:38 Urine Methadone Screen NEGATIVE (NEGATIVE) 07/01/17 16:38 Ur Propoxyphene Screen NEGATIVE (NEGATIVE) 07/01/17 16:38 Ur Barbiturates Screen NEGATIVE (NEGATIVE) 07/01/17 16:38 Ur Tricyclics Screen POSITIVE (NEGATIVE) H 07/01/17 16:38 Ur Phencyclidine Scrn NEGATIVE (NEGATIVE) 07/01/17 16:38 Ur Amphetamine Screen NEGATIVE (NEGATIVE) 07/01/17 16:38 U Methamphetamines Scrn NEGATIVE (NEGATIVE) 07/01/17 16:38 U Benzodiazepines Scrn NEGATIVE (NEGATIVE) 07/01/17 16:38 Urine Cocaine Screen NEGATIVE (NEGATIVE) 07/01/17 16:38 U Cannabinoids Screen NEGATIVE (NEGATIVE) 07/01/17 16:38 Serum Ketones SMALL (NEGATIVE) H 07/01/17 05:00 - Procedures Procedures: Procedures DETACHMENT AT RIGHT 1ST TOE, LOW, OPEN APPROACH (03/14/17) INSERT INFUSION DEV IN R INT JUGULAR VEIN, PERC (04/21/16) INSERTION OF INFUSION DEV INTO R SUBCLAV VEIN, PERC APPROACH (03/14/17) INSERTION OF INFUSION DEV INTO SUP VENA CAVA, PERC APPROACH (04/30/17) INSERTION OF INFUSION DEVICE INTO R ATRIUM, PERC APPROACH (12/04/15) TRANSFUSE NONAUT RED BLOOD CELLS IN PERIPH VEIN, PERC (01/22/17) ULTRASONOGRAPHY OF RIGHT JUGULAR VEINS, GUIDANCE (04/21/16)
[2017-07-03] MEDS: POTASSIUM CHLOR 20 MEQ/100 ML 20 MEQ/100 ML BAG IV SCH ×5 (18:46→21:57)
[2017-07-03] MEDS: AMITRIPTYLINE 25 MG TABLET PO SCH (21:05)
[2017-07-03 21:35] LABS: MUDS CUTOFF CONCENTRATIONS CUTOFF CONC BELOW:
[2017-07-03 21:49] LABS: AMPHETAMINE SCREEN,URINE NEGATIVE (NEGATIVE); BENZODIAZEPINES SCREEN, URINE NEGATIVE (NEGATIVE); COCAINE SCREEN URINE NEGATIVE (NEGATIVE); METHADONE SCREEN, URINE NEGATIVE (NEGATIVE); METHAMPHETAMINES SCREEN, URINE NEGATIVE (NEGATIVE); OPIATE SCREEN, URINE NEGATIVE (NEGATIVE); OXYCODONE SCREEN, URINE NEGATIVE (NEGATIVE); PROPOXYPHENE SCREEN, URINE NEGATIVE (NEGATIVE); TRICYCLIC ANTIDEPRESSANT,URINE POSITIVE (NEGATIVE)
[2017-07-03] MEDS: clonazePAM 0.5 MG TABLET PO PRN (23:49)
[2017-07-04] MEDS: SODIUM CHLORIDE FLUSH 0.9% 10 ML SYRINGE IVP SCH ×4 (01:41→19:12)
[2017-07-04 04:12] LABS: BASOPHILS % (AUTO) 0.4 %; EOSINOPHILS # (AUTO) 0.1 10^3/uL (0.0-0.7); EOSINOPHILS % (AUTO) 0.7 %; HGB - HEMOGLOBIN 9.3 g/dL (12.0-16.0); LYMPHOCYTES # (AUTO) 1.5 10^3/uL (1.5-3.5); LYMPHOCYTES % (AUTO) 18.4 %; MEAN CORPUSCULAR HEMOGLOBIN 24.5 pg (27.0-31.0); MEAN CORPUSCULAR HGB CONC 32.8 g/dL (32.0-36.0); MEAN CORPUSCULAR VOLUME 74.6 fL (81.0-99.0); MONOCYTES # (AUTO) 0.6 10^3/uL (0.0-1.0); NEUTROPHILS # (AUTO) 6.1 10^3/uL (1.5-6.6); NEUTROPHILS % (AUTO) 73.5 %; PLT - PLATELET COUNT 135 10^3/uL (130-450); RED CELL DISTRIBUTION WIDTH 16.9 % (12.0-15.0); WHITE BLOOD COUNT 8.3 x10^3/uL (4.8-10.8)
[2017-07-04 04:23] LABS: CALCIUM 8.5 mg/dL (8.5-10.3); CREATININE 0.3 mg/dL (0.4-1.0)
[2017-07-04] MEDS: GABAPENTIN 300 MG CAPSULE PO SCH ×3 (05:20→20:48)
[2017-07-04] MEDS: ACETAMINOPHEN 1,000 MG/100 ML 100 ML IV PRN ×3 (05:29→23:28)
[2017-07-04] MEDS: VANCOMYCIN INJ 1 GM in SODIUM CHLORIDE 0.9% 250 ML IV SCH (05:30)
[2017-07-04] MEDS: BENZOCAINE/MENTHOL LOZENGE MM PRN (05:46)
[2017-07-04] MEDS ORDERED: PROPOFOL 200 MG/20 ML VIAL IVP ONE (08:00)
[2017-07-04] MEDS ORDERED: MIDAZOLAM 2 MG/2 ML VIAL IVP ONE (08:00)
[2017-07-04] MEDS ORDERED: fentaNYL 100 MCG/2 ML VIAL IVP ONE (08:00)
[2017-07-04] MEDS ORDERED: LIDOCAINE-MPF 1% 30 ML VIAL ONE (08:22)
[2017-07-04] MEDS ORDERED: LACTATED RINGERS 1,000 ML IV ONE (08:25)
[2017-07-04] MEDS ORDERED: LIDOCAINE 1% 50 ML MDV SUBQ ONE (08:45)
[2017-07-04] MEDS: INSULIN ASPART 300 UNIT/3 ML PEN SUBQ SCH ×6 (08:53→20:47)
--- NOTE | 2017-07-04 09:41 | OPERATIVE REPORT ---
Operative Report - General Admit Date: 06/30/17 Procedure Date: 07/04/17 Planned Procedure: Partial amputation of right 2nd and 4th toes, and left 4th toe partial ampu Pre-Op Diagnosis: osteomyelitis of right 2nd and 4th toes and left 4th toe. Procedure Performed: partial amputation right 2nd and 4th toes at pip joint level Partial amputation of left 4th toe at dip joint level Post Op Diagnosis: same - Procedure Note Primary Surgeon: ace Anesthesia Provider: kylah Anesthesia Technique: MAC, Moderate sedation Estimated Blood Loss (mL): 10
[2017-07-04] MEDS: KETOROLAC 15 MG/ML VIAL IVP PRN ×2 (09:44→17:22)
[2017-07-04] MEDS ORDERED: HYDROmorphone 2 MG/ML VIAL IVP STA (10:19)
[2017-07-04] MEDS ORDERED: HYDROmorphone 2 MG/ML VIAL IVP PRN (10:20)
[2017-07-04] MEDS: CEFEPIME 2 GM in SODIUM CHLORIDE 0.9% MINIBAG 100 ML IV SCH ×2 (10:27→20:43)
[2017-07-04] MEDS: INSULIN GLARGINE 300 UNIT/3 ML PEN SUBQ SCH (10:30)
[2017-07-04] MEDS: POTASSIUM CHLORIDE 20 MEQ TABLET PO SCH (10:37)
[2017-07-04] MEDS: MAGNESIUM OXIDE 400 MG TABLET PO SCH (10:38)
[2017-07-04] MEDS: CILOSTAZOL 100 MG TABLET PO SCH ×2 (10:38→20:44)
[2017-07-04] MEDS: cloNIDine 0.1 MG TABLET PO SCH ×2 (10:38→20:44)
[2017-07-04] MEDS: METOPROLOL SUCCINATE 25 MG TABLET PO SCH ×2 (10:39→20:48)
[2017-07-04] MEDS: diltiaZEM CD 120 MG CAPSULE PO SCH (10:39)
[2017-07-04] MEDS: DULoxetine 20 MG CAPSULE PO SCH (10:39)
[2017-07-04] MEDS: OXYBUTYNIN 5MG TABLET PO SCH ×2 (10:39→20:44)
[2017-07-04] MEDS: PANTOPRAZOLE 40 MG VIAL IVP SCH ×2 (10:40→20:44)
[2017-07-04] MEDS: SODIUM CHLORIDE FLUSH 0.9% 10 ML SYRINGE IVP PRN (10:44)
--- NOTE | 2017-07-04 11:54 | PROVIDER PROGRESS NOTE ---
Assessment/Plan - Problem List (1) Osteomyelitis Qualifiers: Osteomyelitis type: subacute Osteomyelitis location: multiple sites Qualified Code(s): M86.29 - Subacute osteomyelitis, multiple sites Assessment/Plan: Pt is POD #0 for amputations and debridement. Will give narcotics for 24 hours for pain control, then decrease, due to drug abuse history. Will plan on 6 weeks of iv antibiotics and placement at an LTAC. Monitor CBC, await any cultures. (2) Occluded PICC line Qualifiers: Encounter type: subsequent encounter Qualified Code(s): T82.898D - Other specified complication of vascular prosthetic devices, implants and grafts, subsequent encounter Assessment/Plan: resolved after TPA treatment yesterday. (3) PVD (peripheral vascular disease) Assessment/Plan: As in #1. Also continue Pletal and ASA. (4) IDDM (insulin dependent diabetes mellitus) Assessment/Plan: Resume DM diet and Lantus, Regular and ss Insulin with monitoring glu POC. (5) DKA (diabetic ketoacidoses) Qualifiers: Diabetes mellitus type: type 1 Diabetes mellitus complication detail: without coma Qualified Code(s): E10.10 - Type 1 diabetes mellitus with ketoacidosis without coma Assessment/Plan: Resolved. (6) Methamphetamine abuse Assessment/Plan: Pt is edentulous from this history. Limiting narcotic use, is the plan due to drug abuse history. - Current Meds Current Meds: Current Medications Generic Name Dose Route Start Last Admin Trade Name Freq PRN Reason Stop Dose Admin Amitriptyline HCl 50 mg 06/30/17 21:00 07/03/17 21:05 Elavil PO 50 mg QPM SYLVIA Administration Cilostazol 100 mg 06/30/17 21:00 07/04/17 10:38 Pletal PO 100 mg BID SYLVIA Administration Clonazepam 0.5 mg 06/30/17 15:26 07/03/17 23:49 Klonopin PO 0.5 mg BID PRN Administration Anxiety Clonidine HCl 0.1 mg 07/02/17 17:04 07/04/17 10:38 Catapres PO 0.1 mg BID SYLVIA Administration Diltiazem HCl 120 mg 07/02/17 17:05 07/04/17 10:39 Cardizem Cd PO 120 mg DAILY SYLVIA Administration Duloxetine HCl 60 mg 07/01/17 09:00 07/04/17 10:39 Cymbalta PO 60 mg DAILY SYLVIA Administration Gabapentin 600 mg 06/30/17 22:00 07/04/17 05:20 Neurontin PO Not Given TID SYLVIA Acetaminophen 100 mls @ 400 mls/hr 06/30/17 18:34 07/04/17 07:17 Ofirmev IV Infused Q6HR PRN Infusion PAIN Cefepime HCl 2 gm/ Sodium 100 mls @ 200 mls/hr 07/02/17 18:00 07/04/17 10:57 Chloride IV Infused BID SYLVIA Infusion Vancomycin HCl 1 gm/ Sodium 250 mls @ 250 mls/hr 07/03/17 14:00 07/04/17 07: 20 Chloride IV Infused Q8H SYLVIA Infusion Ibuprofen 600 mg 06/30/17 15:06 07/03/17 19:43 Motrin PO 600 mg Q6HR PRN Administration Pain 1 to 4 Insulin Aspart 1 - 9 unit 07/01/17 08:00 07/04/17 08:53 Novolog SUBQ Not Given 0800,1200,1700,2100 [facility] Protocol Insulin Aspart 12 unit 07/02/17 18:00 07/04/17 08:53 Novolog SUBQ Not Given TIDWM [facility] Insulin Glargine 70 unit 07/01/17 09:00 07/04/17 10:30 Lantus Solostar SUBQ 70 unit DAILY [facility] Administration Ketorolac Tromethamine 15 mg 07/04/17 06:30 07/04/17 09:44 Toradol Inj IVP 07/09/17 06:29 15 mg Q6HR PRN Administration PAIN Magnesium Oxide 400 mg 07/04/17 08:00 07/04/17 10:38 Mag Ox PO 400 mg DAILYWM [facility] Administration Metoprolol Succinate 25 mg 07/02/17 17:07 07/04/17 10:39 Toprol Xl PO 25 mg BID SYLVIA Administration Oxybutynin Chloride 5 mg 06/30/17 21:00 07/04/17 10:39 Ditropan PO 5 mg BID SYLVIA Administration Pantoprazole Sodium 40 mg 06/30/17 21:00 07/04/17 10:40 Protonix IVP 40 mg BID SYLVIA Administration Potassium Chloride 20 meq 07/04/17 08:00 07/04/17 10:37 K-Dur PO 20 meq DAILYWM SYLVIA Administration Prochlorperazine Edisylate 10 mg 06/30/17 15:06 06/30/17 17:37 Compazine Inj IVP 10 mg Q6HR PRN Administration Nausea / Vomiting Sodium Chloride 10 ml 06/30/17 17:00 07/04/17 10:45 Normal Saline Flush 0.9% IVP 10 ml 0100,0900,1700 SYLVIA Administration Sodium Chloride 10 ml 06/30/17 15:06 07/04/17 10:44 Normal Saline Flush 0.9% IVP 20 ml PRN PRN Administration NEEDED PER PROVIDER ORDERS Throat Lozenges 1 lozenge 07/01/17 21:41 07/04/17 05:46 Cepacol MM 1 lozenge Q2HR PRN Administration Throat pain - Lab Result Fish Bone Diagrams: 07/04/17 03:50 07/04/17 03:50 - Additional Planning My Orders: My Active Orders 07/03/17 14:00 Vancomycin Inj [Vancomycin] 1 gm Sodium Chloride 0.9% [Normal Saline 0.9%] 250 ml IV Q8H 07/03/17 17:37 Sodium Chloride 0.9% [Normal Saline 0.9%] 500 ml IV 20 mls/hr 07/04/17 08:00 Magnesium Oxide [Mag Ox] 400 mg PO DAILYWM Potassium Chloride [K-Dur] 20 meq PO DAILYWM 07/04/17 10:20 HYDROmorphone (VIAL) [Dilaudid (Vial)] 1 mg IVP Q6H PRN 07/04/17 13:30 VANCOMYCIN TROUGH [CHEM] Timed Subjective - Subjective Patient Reports: Other (In pain after toe amputations this am, screaming for pain meds.) Objective Vital Signs: Vital Signs - 24 hr 07/03/17 07/03/17 07/03/17 13:00 16:44 21:00 Temperature 37.9 C H 37.2 C 37.0 C Heart Rate [ Brachial] Heart Rate [ 117 H 111 H 114 H Monitoring electrodes] Respiratory 25 H 32 H 24 Rate Blood Pressure 125/76 119/73 142/98 H [Left Brachial artery] O2 Saturation 94 95 93 07/04/17 07/04/17 07/04/17 01:00 05:00 09:33 Temperature 36.7 C 36.8 C 36.8 C Heart Rate [ 112 H Brachial] Heart Rate [ 116 H 112 H Monitoring electrodes] Respiratory 24 18 22 Rate Blood Pressure 129/85 H 129/81 H 138/87 H [Left Brachial artery] O2 Saturation 93 92 92 07/04/17 11:43 Temperature Heart Rate [ Brachial] Heart Rate [ 104 H Monitoring electrodes] Respiratory 14 Rate Blood Pressure 129/88 H [Left Brachial artery] O2 Saturation 93 Oxygen O2 Source Room air I&O (Last 24 Hrs): Intake and Output Totals x24h 07/02/17 07/03/17 07/04/17 23:59 23:59 23:59 Intake Total 3270 5282 450 Output Total 1800 1000 Balance 3270 3462 -550 General: Severe distress HEENT: Mucous membr. moist/pink Neck: Supple, No JVD Neuro: Non Focal Cardiovascular: No murmurs Respiratory: No respiratory distress Abdomen: Soft Extremities: No edema, Other (Bandaged feet.) - Results Results: Laboratory Results WBC 8.3 x10^3/uL (4.8-10.8) 07/04/17 03:50 RBC 3.80 10^6/uL (4.20-5.40) L 07/04/17 03:50 Hgb 9.3 g/dL (12.0-16.0) L 07/04/17 03:50 Hct 28.4 % (37.0-47.0) L 07/04/17 03:50 MCV 74.6 fL (81.0-99.0) L 07/04/17 03:50 MCH 24.5 pg (27.0-31.0) L 07/04/17 03:50 MCHC 32.8 g/dL (32.0-36.0) 07/04/17 03:50 RDW 16.9 % (12.0-15.0) H 07/04/17 03:50 Plt Count 135 10^3/uL (130-450) 07/04/17 03:50 MPV 8.0 fL (7.9-10.8) 07/04/17 03:50 Neut # 6.1 10^3/uL (1.5-6.6) 07/04/17 03:50 Lymph # 1.5 10^3/uL (1.5-3.5) 07/04/17 03:50 [place] # 0.6 10^3/uL (0.0-1.0) 07/04/17 03:50 Eos # 0.1 10^3/uL (0.0-0.7) 07/04/17 03:50 Baso # 0.0 10^3/uL (0.0-0.1) 07/04/17 03:50 Absolute Nucleated RBC 0.00 x10^3/uL 07/04/17 03:50 Nucleated RBC % 0.0 /100WBC 07/04/17 03:50 VBG pH 7.377 (7.31-7.41) 07/01/17 08:10 VBG pCO2 17.9 mmHg (41-51) L 06/30/17 15:26 VBG pO2 113.5 mmHg (25-47) H 06/30/17 15:26 VBG HCO3 6.6 mmol/L (23-28) L 06/30/17 15:26 VBG Total CO2 7.2 mmol/L (24-29) L 06/30/17 15:26 VBG O2 Saturation 97.3 % (60-80) H 06/30/17 15:26 VBG Base Excess -19.4 mmol/L (-2 - +2) L 06/30/17 15:26 Ionized Calcium 1.07 mmol/L (1.15-1.33) L 07/01/17 08:10 Sodium 135 mmol/L (135-145) 07/04/17 03:50 Potassium 3.7 mmol/L (3.5-5.0) 07/04/17 03:50 Chloride 98 mmol/L (101-111) L 07/04/17 03:50 Carbon Dioxide 29 mmol/L (21-32) 07/04/17 03:50 Anion Gap 8.0 (6-13) 07/04/17 03:50 BUN 11 mg/dL (6-20) 07/04/17 03:50 Creatinine 0.3 mg/dL (0.4-1.0) L 07/04/17 03:50 Estimated GFR (MDRD) 253 (>89) 07/04/17 03:50 Glucose 234 mg/dL (70-100) H 07/04/17 03:50 POC Whole Bld Glucose 383 mg/dL (70 - 100) H 07/04/17 11:33 Glycated Hemoglobin 13.9 % (4.6-6.2) H 07/01/17 05:00 Estim Average Glucose 352 (70-100) H 07/01/17 05:00 Calcium 8.5 mg/dL (8.5-10.3) 07/04/17 03:50 Magnesium 1.5 mg/dL (1.7-2.8) L 07/03/17 05:30 Total Bilirubin 1.8 mg/dL (0.2-1.0) H 06/30/17 12:40 AST 30 IU/L (10-42) 06/30/17 12:40 ALT 67 IU/L (10-60) H 06/30/17 12:40 Alkaline Phosphatase 287 IU/L (42-121) H 06/30/17 12:40 Troponin I < 0.04 ng/mL (<0.49) 07/01/17 05:00 Total Protein 8.1 g/dL (6.7-8.2) 06/30/17 12:40 Albumin 4.2 g/dL (3.2-5.5) 06/30/17 12:40 Globulin 3.9 g/dL (2.1-4.2) 06/30/17 12:40 Albumin/Globulin Ratio 1.1 (1.0-2.2) 06/30/17 12:40 Lipase 25 U/L (22-51) 06/30/17 12:40 Serum HCG, Qual NEGATIVE 06/30/17 12:40 Urine Color YELLOW 07/01/17 16:38 Urine Clarity HAZY (CLEAR) 07/01/17 16:38 Urine pH 6.0 PH (5.0-7.5) 07/01/17 16:38 Ur Specific [place] 1.020 (1.002-1.030) 07/01/17 16:38 Urine Protein NEGATIVE mg/dL (NEGATIVE) 07/01/17 16:38 Urine Glucose (UA) >=1000 mg/dL (NEGATIVE) H 07/01/17 16:38 Urine Ketones 15 mg/dL (NEGATIVE) H 07/01/17 16:38 Urine Occult Blood TRACE-INTA (NEGATIVE) 07/01/17 16:38 Urine Nitrite NEGATIVE (NEGATIVE) 07/01/17 16:38 Urine Bilirubin NEGATIVE (NEGATIVE) 07/01/17 16:38 Urine Urobilinogen 0.2 (NORMAL) E.U./dL (NORMAL) 07/01/17 16:38 Ur Leukocyte Esterase TRACE (NEGATIVE) H 07/01/17 16:38 Urine RBC None Seen /HPF (0-5) 07/01/17 16:38 Urine WBC 11-25 /HPF (0-5) H 07/01/17 16:38 Ur Squamous Epith Cells MANY Squamous (<= Few) H 07/01/17 16:38 Urine Crystals 0-2 Calcium Oxalate /LPF 07/01/17 16:38 Urine Bacteria Many /HPF (None Seen) H 07/01/17 16:38 Urine Yeast PRESENT 07/01/17 16:38 Ur Microscopic Review INDICATED 07/01/17 16:38 Urine Culture Comments NOT INDICATED 07/01/17 16:38 Urine Opiates Screen NEGATIVE (NEGATIVE) 07/03/17 21:15 Ur Oxycodone Screen NEGATIVE (NEGATIVE) 07/03/17 21:15 Urine Methadone Screen NEGATIVE (NEGATIVE) 07/03/17 21:15 Ur Propoxyphene Screen NEGATIVE (NEGATIVE) 07/03/17 21:15 Ur Barbiturates Screen NEGATIVE (NEGATIVE) 07/03/17 21:15 Ur Tricyclics Screen POSITIVE (NEGATIVE) H 07/03/17 21:15 Ur Phencyclidine Scrn NEGATIVE (NEGATIVE) 07/03/17 21:15 Ur Amphetamine Screen NEGATIVE (NEGATIVE) 07/03/17 21:15 U Methamphetamines Scrn NEGATIVE (NEGATIVE) 07/03/17 21:15 U Benzodiazepines Scrn NEGATIVE (NEGATIVE) 07/03/17 21:15 Urine Cocaine Screen NEGATIVE (NEGATIVE) 07/03/17 21:15 U Cannabinoids Screen NEGATIVE (NEGATIVE) 07/03/17 21:15 Serum Ketones SMALL (NEGATIVE) H 07/01/17 05:00 - Procedures Procedures: Procedures DETACHMENT AT RIGHT 1ST TOE, LOW, OPEN APPROACH (03/14/17) INSERT INFUSION DEV IN R INT JUGULAR VEIN, PERC (04/21/16) INSERTION OF INFUSION DEV INTO R SUBCLAV VEIN, PERC APPROACH (03/14/17) INSERTION OF INFUSION DEV INTO SUP VENA CAVA, PERC APPROACH (04/30/17) INSERTION OF INFUSION DEVICE INTO R ATRIUM, PERC APPROACH (12/04/15) TRANSFUSE NONAUT RED BLOOD CELLS IN PERIPH VEIN, PERC (01/22/17) ULTRASONOGRAPHY OF RIGHT JUGULAR VEINS, GUIDANCE (04/21/16)
[2017-07-04] MEDS ORDERED: INSULIN ASPART 300 UNIT/3 ML PEN SUBQ ONE (12:13)
[2017-07-04] MEDS: clonazePAM 0.5 MG TABLET PO PRN ×2 (12:39→20:44)
[2017-07-04] MEDS ORDERED: HYDROmorphone 1 MG/ML SYRINGE ONE (13:34)
[2017-07-04] MEDS: VANCOMYCIN INJ 1.75 GM in SODIUM CHLORIDE 0.9% 500 ML IV SCH ×2 (16:03→23:27)
[2017-07-04] MEDS ORDERED: INSULIN ASPART 300 UNIT/3 ML PEN SUBQ SCH (17:07)
[2017-07-04] MEDS: HYDROmorphone 1 MG/ML SYRINGE IVP PRN (19:11)
[2017-07-04] MEDS: AMITRIPTYLINE 25 MG TABLET PO SCH (20:43)
[2017-07-05] MEDS: SODIUM CHLORIDE FLUSH 0.9% 10 ML SYRINGE IVP SCH ×3 (00:02→17:46)
[2017-07-05] MEDS: SODIUM CHLORIDE FLUSH 0.9% 10 ML SYRINGE IVP PRN ×3 (01:41→05:57)
[2017-07-05] MEDS: HYDROmorphone 1 MG/ML SYRINGE IVP PRN ×2 (01:41→05:56)
[2017-07-05] MEDS: KETOROLAC 15 MG/ML VIAL IVP PRN (03:48)
[2017-07-05] MEDS: ACETAMINOPHEN 1,000 MG/100 ML 100 ML IV PRN ×3 (05:24→18:45)
[2017-07-05] MEDS: GABAPENTIN 300 MG CAPSULE PO SCH ×3 (05:25→21:23)
[2017-07-05] MEDS: VANCOMYCIN INJ 1.75 GM in SODIUM CHLORIDE 0.9% 500 ML IV SCH ×2 (05:57→17:46)
[2017-07-05] MEDS: INSULIN ASPART 300 UNIT/3 ML PEN SUBQ SCH ×7 (08:12→21:34)
--- NOTE | 2017-07-05 08:22 | PROVIDER PROGRESS NOTE ---
Subjective - Prog Note Date Prog Note Date: 07/04/17 Prog Note Time: 10:00 - Subjective Pt reports feeling: No change Subjective: Patient has had multiple toe amputated and declines pelvic exam Objective - Vital Signs/Intake & Output Intake & Output: Intake & Output 07/02/17 07/03/17 07/04/17 07/05/17 23:59 23:59 23:59 23:59 Intake Total 3270 5282 4260 960 Output Total 1800 2875 2250 Balance 3270 3482 1385 -1290 - Lab Results Fish Bones: 07/04/17 03:50 07/04/17 03:50 Other Labs: Lab Results x24hrs 07/05/17 07/04/17 07/04/17 Range/Units 07:35 20:35 16:51 POC Whole Bld Glucose 321 H 331 H 420 H (70 - 100) mg/dL Last Dose Date Last Dose Time Vancomycin Trough (5.0-15.0) ug/mL 07/04/17 07/04/17 07/04/17 Range/Units 13:10 11:33 09:53 POC Whole Bld Glucose 383 H 247 H (70 - 100) mg/dL Last Dose Date 07/04/17 Last Dose Time 0720 Vancomycin Trough 8.0 (5.0-15.0) ug/mL 07/04/17 Range/Units 08:16 POC Whole Bld Glucose 278 H (70 - 100) mg/dL Last Dose Date Last Dose Time Vancomycin Trough (5.0-15.0) ug/mL
[2017-07-05] MEDS ORDERED: MICONAZOLE VAGINAL CREAM 45 GM TUBE VG SCH (09:00)
[2017-07-05] MEDS: CEFEPIME 2 GM in SODIUM CHLORIDE 0.9% MINIBAG 100 ML IV SCH ×2 (10:26→21:38)
[2017-07-05] MEDS: POTASSIUM CHLORIDE 20 MEQ TABLET PO SCH (10:30)
[2017-07-05] MEDS: MAGNESIUM OXIDE 400 MG TABLET PO SCH (10:30)
[2017-07-05] MEDS: CILOSTAZOL 100 MG TABLET PO SCH ×2 (10:31→21:24)
[2017-07-05] MEDS: cloNIDine 0.1 MG TABLET PO SCH ×2 (10:32→21:23)
[2017-07-05] MEDS: diltiaZEM CD 120 MG CAPSULE PO SCH (10:32)
[2017-07-05] MEDS: FLUCONAZOLE 100 MG TABLET PO SCH (10:33)
[2017-07-05] MEDS: DULoxetine 20 MG CAPSULE PO SCH (10:33)
[2017-07-05] MEDS: METOPROLOL SUCCINATE 25 MG TABLET PO SCH ×2 (10:34→21:24)
[2017-07-05] MEDS: OXYBUTYNIN 5MG TABLET PO SCH ×2 (10:34→21:24)
[2017-07-05] MEDS: PANTOPRAZOLE 40 MG VIAL IVP SCH ×2 (10:35→21:22)
[2017-07-05] MEDS: INSULIN GLARGINE 300 UNIT/3 ML PEN SUBQ SCH (10:40)
[2017-07-05] MEDS: SODIUM CHLORIDE 0.9% 500 ML IV PRN (11:44)
[2017-07-05] MEDS: SACCHAROMYCES BOULARDII 250 MG CAPSULE PO SCH ×2 (12:05→17:46)
[2017-07-05] MEDS: FERROUS SULFATE 325 MG TABLET PO SCH ×2 (12:06→17:46)
[2017-07-05] MEDS: HYDROmorphone 2 MG TABLET PO PRN ×2 (12:06→17:46)
[2017-07-05] MEDS: MULTIVITAMIN W/MINERALS TABLET PO SCH (12:06)
[2017-07-05] MEDS: LIDOCAINE OINTMENT 5% 35.44 GM TUBE TOP SCH ×4 (12:19→21:39)
[2017-07-05] MEDS: MICONAZOLE VAGINAL CREAM 45 GM TUBE VG SCH ×2 (12:20→21:39)
--- NOTE | 2017-07-05 13:03 | PROVIDER PROGRESS NOTE ---
Assessment/Plan - Problem List (1) Osteomyelitis Qualifiers: Osteomyelitis type: subacute Osteomyelitis location: multiple sites Qualified Code(s): M86.29 - Subacute osteomyelitis, multiple sites Assessment/Plan: I discussed plan for long-term iv antibiotics with Pt, who was receptive today. Will adjust pain meds. LTAC placement for iv antibiotics planned, Social Work updated. iv Vanco is appropriate for the Staph aureus that has grown from surgical site culture. (2) Occluded PICC line Qualifiers: Encounter type: subsequent encounter Qualified Code(s): T82.898D - Other specified complication of vascular prosthetic devices, implants and grafts, subsequent encounter Assessment/Plan: Resolved with TPA 2 days ago. Will plan to use this PICC line for 6 weeks of iv antibiotics. (3) PVD (peripheral vascular disease) Assessment/Plan: Continue her Pletal and ASA, statin meds and BP control. (4) IDDM (insulin dependent diabetes mellitus) Assessment/Plan: Continue monitoring POC glu, Insulin and diet adjustments per Chief Customer Officer. (5) DKA (diabetic ketoacidoses) Qualifiers: Diabetes mellitus type: type 1 Diabetes mellitus complication detail: without coma Qualified Code(s): E10.10 - Type 1 diabetes mellitus with ketoacidosis without coma Assessment/Plan: Resolved. (6) Methamphetamine abuse Assessment/Plan: History of multiple drug abuse. (7) Vaginitis due to Ryann Assessment/Plan: Pt had pelvic exam and samples taken, done by Dr Kyle today. Will follow his recommendations for treating her vaginitis. - Current Meds Current Meds: Current Medications Generic Name Dose Route Start Last Admin Trade Name Freq PRN Reason Stop Dose Admin Amitriptyline HCl 50 mg 06/30/17 21:00 07/04/17 20:43 Elavil PO 50 mg QPM SYLVIA Administration Cilostazol 100 mg 06/30/17 21:00 07/05/17 10:31 Pletal PO 100 mg BID SYLVIA Administration Clonazepam 0.5 mg 06/30/17 15:26 07/04/17 20:44 Klonopin PO 0.5 mg BID PRN Administration Anxiety Clonidine HCl 0.1 mg 07/02/17 17:04 07/05/17 10:32 Catapres PO 0.1 mg BID SYLVIA Administration Diltiazem HCl 120 mg 07/02/17 17:05 07/05/17 10:32 Cardizem Cd PO 120 mg DAILY SYLVIA Administration Duloxetine HCl 60 mg 07/01/17 09:00 07/05/17 10:33 Cymbalta PO 60 mg DAILY SYLVIA Administration Ferrous Sulfate 325 mg 07/05/17 11:00 07/05/17 12:06 Feosol PO 325 mg BIDWM SYLVIA Administration Fluconazole 100 mg 07/05/17 09:00 07/05/17 10:33 Diflucan PO 07/07/17 09:01 100 mg DAILY SYLVIA Administration Gabapentin 600 mg 06/30/17 22:00 07/05/17 05:25 Neurontin PO 600 mg TID SYLVIA Administration Hydromorphone HCl 2 mg 07/05/17 10:33 07/05/17 12:06 Dilaudid PO 2 mg Q6HR PRN Administration Severe Pain Acetaminophen 100 mls @ 400 mls/hr 06/30/17 18:34 07/05/17 12:06 Ofirmev IV 400 mls/hr Q6HR PRN Administration PAIN Cefepime HCl 2 gm/ Sodium 100 mls @ 200 mls/hr 07/02/17 18:00 07/05/17 10:55 Chloride IV Infused BID SYLVIA Infusion Sodium Chloride 500 mls @ 20 mls/hr 07/03/17 17:37 07/05/17 11:44 Normal Saline 0.9% IV 20 mls/hr .Q25H PRN Administration PICC Protocol Vancomycin HCl 1.75 gm/ Sodium 500 mls @ 250 mls/hr 07/04/17 15:00 07/05/17 08:00 Chloride IV Infused 0700,1500,2300 SYLVIA Infusion Ibuprofen 600 mg 06/30/17 15:06 07/03/17 19:43 Motrin PO 600 mg Q6HR PRN Administration Pain 1 to 4 Insulin Aspart 3 - 11 unit 07/05/17 08:00 07/05/17 12:15 Novolog SUBQ 7 unit 0800,1200,1700,2100 SYLVIA Administration Protocol Insulin Aspart 15 unit 07/05/17 10:41 07/05/17 12:14 Novolog SUBQ 15 unit TIDWM SYLVIA Administration Lidocaine 1 applic 07/05/17 09:00 07/05/17 12:19 Xylocaine Ointment 5% TOP 1 unit QID SYLVIA Administration Magnesium Oxide 400 mg 07/04/17 08:00 07/05/17 10:30 Mag Ox PO 400 mg DAILYWM SYLVIA Administration Metoprolol Succinate 25 mg 07/02/17 17:07 07/05/17 10:34 Toprol Xl PO 25 mg BID SYLVIA Administration Miconazole 0.5 applic 07/05/17 09:30 07/05/17 12:20 Monistat-7 VG 07/12/17 21:01 1 unit QPM SYLVIA Administration Multivitamins/Minerals 1 tab 07/05/17 12:00 07/05/17 12:06 Theragran M PO 1 tab DAILYWM SYLVIA Administration Oxybutynin Chloride 5 mg 06/30/17 21:00 07/05/17 10:34 Ditropan PO 5 mg BID SYLVIA Administration Pantoprazole Sodium 40 mg 06/30/17 21:00 07/05/17 10:35 Protonix IVP 40 mg BID SYLVIA Administration Potassium Chloride 20 meq 07/04/17 08:00 07/05/17 10:30 K-Dur PO 20 meq DAILYWM SYLVIA Administration Prochlorperazine Edisylate 10 mg 06/30/17 15:06 06/30/17 17:37 Compazine Inj IVP 10 mg Q6HR PRN Administration Nausea / Vomiting Saccharomyces Boulardii 250 mg 07/05/17 11:00 07/05/17 12:05 Florastor PO 250 mg BIDWM SYLVIA Administration Sodium Chloride 10 ml 06/30/17 17:00 07/05/17 10:35 Normal Saline Flush 0.9% IVP 10 ml 0100,0900,1700 SYLVIA Administration Sodium Chloride 10 ml 06/30/17 15:06 07/05/17 05:57 Normal Saline Flush 0.9% IVP 10 ml PRN PRN Administration NEEDED PER PROVIDER ORDERS Throat Lozenges 1 lozenge 07/01/17 21:41 07/04/17 05:46 Cepacol MM 1 lozenge Q2HR PRN Administration Throat pain - Lab Result Fish Bone Diagrams: 07/04/17 03:50 07/04/17 03:50 - Additional Planning My Orders: My Active Orders 07/04/17 15:00 Vancomycin Inj [Vancomycin] 1.75 gm Sodium Chloride 0.9% [Normal Saline 0.9%] 500 ml IV 0700,1500,2300 07/05/17 08:00 Insulin Aspart [NovoLOG] 3 - 11 unit SUBQ 0800,1200,1700,2100 07/05/17 10:32 Ketorolac Inj [Toradol Inj] 30 mg IVP Q6HR PRN 07/05/17 10:33 HYDROmorphone [Dilaudid] 2 mg PO Q6HR PRN 07/05/17 10:41 Insulin Aspart [NovoLOG] 15 unit SUBQ TIDWM 07/05/17 11:00 Ferrous Sulfate [Feosol] 325 mg PO BIDWM Saccharomyces Boulardii [Florastor] 250 mg PO BIDWM 07/05/17 12:00 Multivitamin W/Minerals [Theragran M] 1 tab PO DAILYWM 07/05/17 14:30 VANCOMYCIN TROUGH [CHEM] Timed 07/05/17 21:00 Insulin Glargine [Lantus Solostar] 20 unit SUBQ 2100 ONE 07/06/17 05:00 BMP - BASIC METABOLIC PANEL [CHEM] Routine CBC - COMP BLD CT W/AUTO DIFF [HEME] Routine MAGNESIUM [CHEM] Routine 07/06/17 09:00 Insulin Glargine [Lantus Solostar] 35 unit SUBQ BID Subjective - Subjective Patient Reports: Feeling Better, Other (Wants more meds for break-through pain of amputated toes. Is afraid to look at amputated toes, which are covered in bandages.) Objective Vital Signs: Vital Signs - 24 hr 07/04/17 07/04/17 07/05/17 20:51 23:45 10:16 Temperature 36.7 C 37.1 C 36.4 C L Heart Rate [ 103 H 91 91 Monitoring electrodes] Respiratory 20 21 Rate Blood Pressure 137/102 H 122/90 H 132/92 H [Left Brachial artery] O2 Saturation 98 97 98 Oxygen O2 Source Room air I&O (Last 24 Hrs): Intake and Output Totals x24h 07/03/17 07/04/17 07/05/17 23:59 23:59 23:59 Intake Total 5282 4260 1910 Output Total 1800 2875 3925 Balance 3482 1385 -2015 General: Alert, Oriented x3 HEENT: Mucous membr. moist/pink Neck: Supple Neuro: Non Focal Cardiovascular: No murmurs Respiratory: No respiratory distress Abdomen: Normal bowel sounds, Soft Extremities: No edema, Other (R toes all bandaged, L foot has several toes bandaged.) - Results Results: Laboratory Results WBC 8.3 x10^3/uL (4.8-10.8) 07/04/17 03:50 RBC 3.80 10^6/uL (4.20-5.40) L 07/04/17 03:50 Hgb 9.3 g/dL (12.0-16.0) L 07/04/17 03:50 Hct 28.4 % (37.0-47.0) L 07/04/17 03:50 MCV 74.6 fL (81.0-99.0) L 07/04/17 03:50 MCH 24.5 pg (27.0-31.0) L 07/04/17 03:50 MCHC 32.8 g/dL (32.0-36.0) 07/04/17 03:50 RDW 16.9 % (12.0-15.0) H 07/04/17 03:50 Plt Count 135 10^3/uL (130-450) 07/04/17 03:50 MPV 8.0 fL (7.9-10.8) 07/04/17 03:50 Neut # 6.1 10^3/uL (1.5-6.6) 07/04/17 03:50 Lymph # 1.5 10^3/uL (1.5-3.5) 07/04/17 03:50 Wood # 0.6 10^3/uL (0.0-1.0) 07/04/17 03:50 Eos # 0.1 10^3/uL (0.0-0.7) 07/04/17 03:50 Baso # 0.0 10^3/uL (0.0-0.1) 07/04/17 03:50 Absolute Nucleated RBC 0.00 x10^3/uL 07/04/17 03:50 Nucleated RBC % 0.0 /100WBC 07/04/17 03:50 VBG pH 7.377 (7.31-7.41) 07/01/17 08:10 VBG pCO2 17.9 mmHg (41-51) L 06/30/17 15:26 VBG pO2 113.5 mmHg (25-47) H 06/30/17 15:26 VBG HCO3 6.6 mmol/L (23-28) L 06/30/17 15:26 VBG Total CO2 7.2 mmol/L (24-29) L 06/30/17 15:26 VBG O2 Saturation 97.3 % (60-80) H 06/30/17 15:26 VBG Base Excess -19.4 mmol/L (-2 - +2) L 06/30/17 15:26 Ionized Calcium 1.07 mmol/L (1.15-1.33) L 07/01/17 08:10 Sodium 135 mmol/L (135-145) 07/04/17 03:50 Potassium 3.7 mmol/L (3.5-5.0) 07/04/17 03:50 Chloride 98 mmol/L (101-111) L 07/04/17 03:50 Carbon Dioxide 29 mmol/L (21-32) 07/04/17 03:50 Anion Gap 8.0 (6-13) 07/04/17 03:50 BUN 11 mg/dL (6-20) 07/04/17 03:50 Creatinine 0.3 mg/dL (0.4-1.0) L 07/04/17 03:50 Estimated GFR (MDRD) 253 (>89) 07/04/17 03:50 Glucose 234 mg/dL (70-100) H 07/04/17 03:50 POC Whole Bld Glucose 263 mg/dL (70 - 100) H 07/05/17 11:50 Glycated Hemoglobin 13.9 % (4.6-6.2) H 07/01/17 05:00 Estim Average Glucose 352 (70-100) H 07/01/17 05:00 Calcium 8.5 mg/dL (8.5-10.3) 07/04/17 03:50 Magnesium 1.5 mg/dL (1.7-2.8) L 07/03/17 05:30 Total Bilirubin 1.8 mg/dL (0.2-1.0) H 06/30/17 12:40 AST 30 IU/L (10-42) 06/30/17 12:40 ALT 67 IU/L (10-60) H 06/30/17 12:40 Alkaline Phosphatase 287 IU/L (42-121) H 06/30/17 12:40 Troponin I < 0.04 ng/mL (<0.49) 07/01/17 05:00 Total Protein 8.1 g/dL (6.7-8.2) 06/30/17 12:40 Albumin 4.2 g/dL (3.2-5.5) 06/30/17 12:40 Globulin 3.9 g/dL (2.1-4.2) 06/30/17 12:40 Albumin/Globulin Ratio 1.1 (1.0-2.2) 06/30/17 12:40 Lipase 25 U/L (22-51) 06/30/17 12:40 Serum HCG, Qual NEGATIVE 06/30/17 12:40 Urine Color YELLOW 07/01/17 16:38 Urine Clarity HAZY (CLEAR) 07/01/17 16:38 Urine pH 6.0 PH (5.0-7.5) 07/01/17 16:38 Ur Specific Shannon 1.020 (1.002-1.030) 07/01/17 16:38 Urine Protein NEGATIVE mg/dL (NEGATIVE) 07/01/17 16:38 Urine Glucose (UA) >=1000 mg/dL (NEGATIVE) H 07/01/17 16:38 Urine Ketones 15 mg/dL (NEGATIVE) H 07/01/17 16:38 Urine Occult Blood TRACE-INTA (NEGATIVE) 07/01/17 16:38 Urine Nitrite NEGATIVE (NEGATIVE) 07/01/17 16:38 Urine Bilirubin NEGATIVE (NEGATIVE) 07/01/17 16:38 Urine Urobilinogen 0.2 (NORMAL) E.U./dL (NORMAL) 07/01/17 16:38 Ur Leukocyte Esterase TRACE (NEGATIVE) H 07/01/17 16:38 Urine RBC None Seen /HPF (0-5) 07/01/17 16:38 Urine WBC 11-25 /HPF (0-5) H 07/01/17 16:38 Ur Squamous Epith Cells MANY Squamous (<= Few) H 07/01/17 16:38 Urine Crystals 0-2 Calcium Oxalate /LPF 07/01/17 16:38 Urine Bacteria Many /HPF (None Seen) H 07/01/17 16:38 Urine Yeast PRESENT 07/01/17 16:38 Ur Microscopic Review INDICATED 07/01/17 16:38 Urine Culture Comments NOT INDICATED 07/01/17 16:38 Last Dose Date 07/04/17 07/04/17 13:10 Last Dose Time 0720 07/04/17 13:10 Vancomycin Trough 8.0 ug/mL (5.0-15.0) 07/04/17 13:10 Urine Opiates Screen NEGATIVE (NEGATIVE) 07/03/17 21:15 Ur Oxycodone Screen NEGATIVE (NEGATIVE) 07/03/17 21:15 Urine Methadone Screen NEGATIVE (NEGATIVE) 07/03/17 21:15 Ur Propoxyphene Screen NEGATIVE (NEGATIVE) 07/03/17 21:15 Ur Barbiturates Screen NEGATIVE (NEGATIVE) 07/03/17 21:15 Ur Tricyclics Screen POSITIVE (NEGATIVE) H 07/03/17 21:15 Ur Phencyclidine Scrn NEGATIVE (NEGATIVE) 07/03/17 21:15 Ur Amphetamine Screen NEGATIVE (NEGATIVE) 07/03/17 21:15 U Methamphetamines Scrn NEGATIVE (NEGATIVE) 07/03/17 21:15 U Benzodiazepines Scrn NEGATIVE (NEGATIVE) 07/03/17 21:15 Urine Cocaine Screen NEGATIVE (NEGATIVE) 07/03/17 21:15 U Cannabinoids Screen NEGATIVE (NEGATIVE) 07/03/17 21:15 Serum Ketones SMALL (NEGATIVE) H 07/01/17 05:00 - Procedures Procedures: Procedures DETACHMENT AT RIGHT 1ST TOE, LOW, OPEN APPROACH (03/14/17) INSERT INFUSION DEV IN R INT JUGULAR VEIN, PERC (04/21/16) INSERTION OF INFUSION DEV INTO R SUBCLAV VEIN, PERC APPROACH (03/14/17) INSERTION OF INFUSION DEV INTO SUP VENA CAVA, PERC APPROACH (04/30/17) INSERTION OF INFUSION DEVICE INTO R ATRIUM, PERC APPROACH (12/04/15) TRANSFUSE NONAUT RED BLOOD CELLS IN PERIPH VEIN, PERC (01/22/17) ULTRASONOGRAPHY OF RIGHT JUGULAR VEINS, GUIDANCE (04/21/16)
--- NOTE | 2017-07-05 13:18 | OPERATIVE REPORT ---
DATE OF SERVICE: 07/04/2017 Physician: Noe Burns MD PREOPERATIVE DIAGNOSES 1. Right foot second and fourth toe distal phalanx osteomyelitis. 2. Left fourth toe distal phalanx osteomyelitis. POSTOPERATIVE DIAGNOSES 1. Right foot second and fourth toe distal phalanx osteomyelitis. 2. Left fourth toe,distal phalanx osteomyelitis. PROCEDURES PERFORMED 1. Partial amputation of right foot, second and fourth toes at the proximal interphalangeal (PIP) joint level 2. Partial amputation of the left fourth toe at the distal intraphalangeal ( DIP) joint level. OPERATING SURGEON: Noe Burns MD ANESTHESIA: Sedation and local by Roque. INDICATIONS FOR SURGERY: The patient is a 36-year-old female, who is a severely unstable diabetic, and has had multiple surgeries performed in the past, who was admitted with diabetes out of control, and sepsis, and infected toes. It was recommended that she undergo partial amputation for osteomyelitis as proven by MRI scan of her toes. DESCRIPTION OF OPERATIVE PROCEDURE: Patient was taken to the operating room. She was given sedation anesthetic, after which 1% lidocaine plain was used in a block of right foot second and fourth toes and left foot fourth toe. At that point, the right foot was addressed first with [id number] incisions made around at the PIP joint of both second and fourth toes, allowing direct amputation through the PIP joint. There was actually a small amount of bleeding, not severe, and an Esmarch was able to be used as a tourniquet. Once the tissue was exposed, there was minimal bleeding, and nerves were drawn down and resected, as were tendon ends, and there was no necrosis or infection. They were washed, and each of these incisions was closed with interrupted 4-0 nylon, and a sterile dressing was applied over the foot consisting of Xeroform and light gauze and a wrap. The attention was then directed to the left foot, where the involvement of the toe was more limited and more distal, and therefore a fish-mouth incision was made around the level of the DIP joint, excising the distal necrotic part of the toe with its involved bone and amputating through the DIP joint, once again shaping the end of the bone so there was no unusual protuberance, and then drawing down nerve endings and transecting them, shaping flaps, and closing with 4-0 nylon after irrigating. This allowed very nice closures without tensions. Dressings were applied, and the patient was taken to the recovery room in stable condition. ESTIMATED BLOOD LOSS: Minimal for both feet, less than 15 mL COMPLICATIONS: None. COUNTS: Sponge and needle counts correct. TD: 07/05/2017 08:51 MTDD
[2017-07-05] MEDS: KETOROLAC 30 MG/ML VIAL IVP PRN ×2 (15:01→21:23)
[2017-07-05 15:08] LABS: VANCOMYCIN,TROUGH 18.5 ug/mL (5.0-15.0)
[2017-07-05] MEDS ORDERED: INSULIN GLARGINE 300 UNIT/3 ML PEN SUBQ ONE (21:00)
[2017-07-05] MEDS: AMITRIPTYLINE 25 MG TABLET PO SCH (21:23)
[2017-07-05] MEDS: clonazePAM 0.5 MG TABLET PO PRN (21:23)
[2017-07-06] MEDS: VANCOMYCIN INJ 1.75 GM in SODIUM CHLORIDE 0.9% 500 ML IV SCH ×3 (00:12→16:15)
[2017-07-06] MEDS: SODIUM CHLORIDE FLUSH 0.9% 10 ML SYRINGE IVP SCH ×3 (01:30→15:40)
[2017-07-06] MEDS: ACETAMINOPHEN 1,000 MG/100 ML 100 ML IV PRN ×3 (03:49→18:17)
[2017-07-06] MEDS: HYDROmorphone 2 MG TABLET PO PRN ×3 (04:04→18:17)
[2017-07-06] MEDS: GABAPENTIN 300 MG CAPSULE PO SCH ×3 (06:33→21:45)
--- NOTE | 2017-07-06 07:06 | PROVIDER PROGRESS NOTE ---
Subjective - General Admit Date: 06/30/17 Procedure Date: 07/04/17 Post Op Days: 2 Procedure Performed: toe amputations - Review of Systems Wound/Incisions: positive: Dressing dry and intact Musculoskeletal: positive: Joint pain Objective - Patient Data Reviewed Vital Signs: Yes Vital Signs: Vital Signs x48h Temp Pulse Resp BP Pulse Ox 07/06/17 04:14 36.6 C 87 20 138/95 H 96 07/06/17 00:17 36.3 C L 91 20 131/83 H 93 Weight: Weight 07/04/17 07/05/17 07/06/17 23:59 23:59 23:59 Weight (kg) 66.5 kg Intake & Output: Intake and Output Totals x24h 07/04/17 07/05/17 07/06/17 23:59 23:59 23:59 Intake Total 4260 3160 720 Output Total 8290 9331 7663 Balance 1385 -4465 -1980 - Lab Results Lab Results: 07/06/17 07:10 07/06/17 07:10 Other Lab Results: Lab Results x24hrs 07/06/17 07/05/17 07/05/17 Range/Units 00:14 20:17 16:53 POC Whole Bld Glucose 216 H 226 H 282 H (70 - 100) mg/dL Last Dose Date Last Dose Time Vancomycin Trough (5.0-15.0) ug/mL 07/05/17 07/05/17 07/05/17 Range/Units 14:52 11:50 07:35 POC Whole Bld Glucose 263 H 321 H (70 - 100) mg/dL Last Dose Date 07/05/17 Last Dose Time 0800 Vancomycin Trough 18.5 H (5.0-15.0) ug/mL - Current Medications Current Medications: Current Medications Generic Name Dose Route Start Last Admin Trade Name Freq PRN Reason Stop Dose Admin Amitriptyline HCl 50 mg 06/30/17 21:00 07/05/17 21:23 Elavil PO 50 mg QPM SYLVIA Administration Cilostazol 100 mg 06/30/17 21:00 07/05/17 21:24 Pletal PO 100 mg BID SYLVIA Administration Clonazepam 0.5 mg 06/30/17 15:26 07/05/17 21:23 Klonopin PO 0.5 mg BID PRN Administration Anxiety Clonidine HCl 0.1 mg 07/02/17 17:04 07/05/17 21:23 Catapres PO 0.1 mg BID SYLVIA Administration Diltiazem HCl 120 mg 07/02/17 17:05 07/05/17 10:32 Cardizem Cd PO 120 mg DAILY SYLVIA Administration Duloxetine HCl 60 mg 07/01/17 09:00 07/05/17 10:33 Cymbalta PO 60 mg DAILY SYLVIA Administration Ferrous Sulfate 325 mg 07/05/17 11:00 07/05/17 17:46 Feosol PO 325 mg BIDWM SYLVIA Administration Fluconazole 100 mg 07/05/17 09:00 07/05/17 10:33 Diflucan PO 07/07/17 09:01 100 mg DAILY SYLVIA Administration Gabapentin 600 mg 06/30/17 22:00 07/06/17 06:33 Neurontin PO 600 mg TID SYLVIA Administration Hydromorphone HCl 2 mg 07/05/17 10:33 07/06/17 04:04 Dilaudid PO 2 mg Q6HR PRN Administration Severe Pain Acetaminophen 100 mls @ 400 mls/hr 06/30/17 18:34 07/06/17 04:04 Ofirmev IV Infused Q6HR PRN Infusion PAIN Cefepime HCl 2 gm/ Sodium 100 mls @ 200 mls/hr 07/02/17 18:00 07/05/17 22:19 Chloride IV Infused BID SYLVIA Infusion Sodium Chloride 500 mls @ 20 mls/hr 07/03/17 17:37 07/05/17 11:44 Normal Saline 0.9% IV 20 mls/hr .Q25H PRN Administration PICC Protocol Vancomycin HCl 1.75 gm/ Sodium 500 mls @ 250 mls/hr 07/05/17 16:00 07/06/17 02:12 Chloride IV Infused Q8H SYLVIA Infusion Ibuprofen 600 mg 06/30/17 15:06 07/03/17 19:43 Motrin PO 600 mg Q6HR PRN Administration Pain 1 to 4 Insulin Aspart 3 - 11 unit 07/05/17 08:00 07/05/17 21:34 Novolog SUBQ 7 unit 0800,1200,1700,2100 SYLVIA Administration Protocol Insulin Aspart 15 unit 07/05/17 10:41 07/05/17 17:50 Novolog SUBQ 15 unit TIDWM SYLVIA Administration Ketorolac Tromethamine 30 mg 07/05/17 10:32 07/05/17 21:23 Toradol Inj IVP 07/09/17 06:30 30 mg Q6HR PRN Administration PAIN Lidocaine 1 applic 07/05/17 09:00 07/05/17 21:39 Xylocaine Ointment 5% TOP 1 unit QID SYLVIA Administration Magnesium Oxide 400 mg 07/04/17 08:00 07/05/17 10:30 Mag Ox PO 400 mg DAILYWM SYLVIA Administration Metoprolol Succinate 25 mg 07/02/17 17:07 07/05/17 21:24 Toprol Xl PO 25 mg BID SYLVIA Administration Miconazole 0.5 applic 07/05/17 09:30 07/05/17 21:39 Monistat-7 VG 07/12/17 21:01 1 unit QPM SYLVIA Administration Multivitamins/Minerals 1 tab 07/05/17 12:00 07/05/17 12:06 Theragran M PO 1 tab DAILYWM SYLVIA Administration Oxybutynin Chloride 5 mg 06/30/17 21:00 07/05/17 21:24 Ditropan PO 5 mg BID SYLVIA Administration Pantoprazole Sodium 40 mg 06/30/17 21:00 07/05/17 21:22 Protonix IVP 40 mg BID SYLVIA Administration Potassium Chloride 20 meq 07/04/17 08:00 07/05/17 10:30 K-Dur PO 20 meq DAILYWM SYLVIA Administration Prochlorperazine Edisylate 10 mg 06/30/17 15:06 06/30/17 17:37 Compazine Inj IVP 10 mg Q6HR PRN Administration Nausea / Vomiting Saccharomyces Boulardii 250 mg 07/05/17 11:00 07/05/17 17:46 Florastor PO 250 mg BIDWM [facility] Administration Sodium Chloride 10 ml 06/30/17 17:00 07/06/17 01:30 Normal Saline Flush 0.9% IVP Not Given 0100,0900,1700 SYLVIA Sodium Chloride 10 ml 06/30/17 15:06 07/05/17 05:57 Normal Saline Flush 0.9% IVP 10 ml PRN PRN Administration NEEDED PER PROVIDER ORDERS Throat Lozenges 1 lozenge 07/01/17 21:41 07/04/17 05:46 Cepacol MM 1 lozenge Q2HR PRN Administration Throat pain - Physical Exam Wound/Incisions: positive: Dressing dry and intact General Appearance: positive: No acute distress Extremities: positive: Joint swelling Impression/Plan - Problem List Problem List: POD #2 Pt is reporting pain, but seems to be recovering without complication Will begin dressing changes to feet, and rec. further weight bearing.
--- NOTE | 2017-07-06 07:33 | PROVIDER PROGRESS NOTE ---
Subjective - Prog Note Date Prog Note Date: 07/06/17 Prog Note Time: 07:32 - Subjective Subjective: her main concern is pain. On opiates. More than usual amount we see for post op toe amp in osteo. She does have hx of drug seeking behavior thru her years with us here. Nursing has been working well with her and has offered her tylenol and toradol instead of dilaudid 5 mg and it is being used sparingly. She does c/o flank pain and wonders if her kidney stones are giving her a problem. UA on 07/01 with only trace hematuria. no chest pain,no sob. eating very well. Current Medications - Current Medications Current Medications: Active Medications Amitriptyline HCl (Elavil) 50 mg PO QPM [facility] Last Admin: 07/05/17 21:23 Dose: 50 mg Cilostazol (Pletal) 100 mg PO BID [facility] Last Admin: 07/05/17 21:24 Dose: 100 mg Clonazepam (Klonopin) 0.5 mg PO BID PRN PRN Reason: Anxiety Last Admin: 07/05/17 21:23 Dose: 0.5 mg Clonidine HCl (Catapres) 0.1 mg PO BID [facility] Last Admin: 07/05/17 21:23 Dose: 0.1 mg Diltiazem HCl (Cardizem Cd) 120 mg PO DAILY [facility] Last Admin: 07/05/17 10:32 Dose: 120 mg Docusate Sodium (Colace 250mg Capsule) 250 - 500 mg PO DAILY [facility] Duloxetine HCl (Cymbalta) 60 mg PO DAILY [facility] Last Admin: 07/05/17 10:33 Dose: 60 mg Ferrous Sulfate (Feosol) 325 mg PO BIDWM [facility] Last Admin: 07/05/17 17:46 Dose: 325 mg Fluconazole (Diflucan) 100 mg PO DAILY [facility] Stop: 07/07/17 09:01 Last Admin: 07/05/17 10:33 Dose: 100 mg Gabapentin (Neurontin) 600 mg PO TID [facility] Last Admin: 07/06/17 06:33 Dose: 600 mg Hydromorphone HCl (Dilaudid) 2 mg PO Q6HR PRN PRN Reason: Severe Pain Last Admin: 07/06/17 04:04 Dose: 2 mg Acetaminophen (Ofirmev) 100 mls @ 400 mls/hr IV Q6HR PRN PRN Reason: PAIN Last Infusion: 07/06/17 04:04 Dose: Infused Cefepime HCl 2 gm/ Sodium (Chloride) 100 mls @ 200 mls/hr IV BID [facility] Last Infusion: 07/05/17 22:19 Dose: Infused Sodium Chloride (Normal Saline 0.9%) 500 mls @ 20 mls/hr IV .Q25H PRN PRN Reason: PICC Protocol Last Admin: 07/05/17 11:44 Dose: 20 mls/hr Vancomycin HCl 1.75 gm/ Sodium (Chloride) 500 mls @ 250 mls/hr IV Q8H [facility] Last Infusion: 07/06/17 02:12 Dose: Infused Ibuprofen (Motrin) 600 mg PO Q6HR PRN PRN Reason: Pain 1 to 4 Last Admin: 07/03/17 19:43 Dose: 600 mg Insulin Aspart (Novolog) 3 - 11 unit SUBQ 0800,1200,1700,2100 [facility] PRN Reason: Protocol Last Admin: 07/05/17 21:34 Dose: 7 unit Insulin Aspart (Novolog) 15 unit SUBQ TIDWM [facility] Last Admin: 07/05/17 17:50 Dose: 15 unit Insulin Glargine (Lantus Solostar) 35 unit SUBQ BID [facility] Ketorolac Tromethamine (Toradol Inj) 30 mg IVP Q6HR PRN PRN Reason: PAIN Stop: 07/09/17 06:30 Last Admin: 07/05/17 21:23 Dose: 30 mg Lidocaine (Xylocaine Ointment 5%) 1 applic TOP QID [facility] Last Admin: 07/05/17 21:39 Dose: 1 unit Magnesium Oxide (Mag Ox) 400 mg PO DAILYWM [facility] Last Admin: 07/05/17 10:30 Dose: 400 mg Metoprolol Succinate (Toprol Xl) 25 mg PO BID [facility] Last Admin: 07/05/17 21:24 Dose: 25 mg Miconazole (Monistat-7) 0.5 applic VG QPM [facility] Stop: 07/12/17 21:01 Last Admin: 07/05/17 21:39 Dose: 1 unit Multivitamins/Minerals (Theragran M) 1 tab PO DAILYWM [facility] Last Admin: 07/05/17 12:06 Dose: 1 tab Oxybutynin Chloride (Ditropan) 5 mg PO BID [facility] Last Admin: 07/05/17 21:24 Dose: 5 mg Pantoprazole Sodium (Protonix) 40 mg IVP BID [facility] Last Admin: 07/05/17 21:22 Dose: 40 mg Polyethylene Glycol (Miralax) 17 gm PO DAILY [facility] Potassium Chloride (K-Dur) 20 meq PO DAILYWM [facility] Last Admin: 07/05/17 10:30 Dose: 20 meq Prochlorperazine Edisylate (Compazine Inj) 10 mg IVP Q6HR PRN PRN Reason: Nausea / Vomiting Last Admin: 06/30/17 17:37 Dose: 10 mg Saccharomyces Boulardii (Florastor) 250 mg PO BIDWM [facility] Last Admin: 07/05/17 17:46 Dose: 250 mg Senna (Senokot) 8.6 - 17.2 mg PO DAILY [facility] Sodium Chloride (Normal Saline Flush 0.9%) 10 ml IVP 0100,0900,1700 [facility] Last Admin: 07/06/17 01:30 Dose: Not Given Sodium Chloride (Normal Saline Flush 0.9%) 10 ml IVP PRN PRN PRN Reason: NEEDED PER PROVIDER ORDERS Last Admin: 07/05/17 05:57 Dose: 10 ml Throat Lozenges (Cepacol) 1 lozenge MM Q2HR PRN PRN Reason: Throat pain Last Admin: 07/04/17 05:46 Dose: 1 lozenge clonazePAM [KlonoPIN] 0.5 mg PO BID PRN 06/30/17 Objective - Vital Signs/Intake & Output Reviewed Vital Signs: Yes Vital Signs: Vital Signs x48h Temp Pulse Resp BP Pulse Ox 07/06/17 04:14 36.6 C 87 20 138/95 H 96 07/06/17 00:17 36.3 C L 91 20 131/83 H 93 Intake & Output: Intake & Output 07/03/17 07/04/17 07/05/17 07/06/17 23:59 23:59 23:59 23:59 Intake Total 5282 4260 3160 720 Output Total 6670 9798 8063 8001 Balance 3481 1385 -4465 -1980 - Objective General Appearance: positive: No acute distress, Alert, Other (white female who looks stated age. sitting up in bed, to get to chair to eat breakfast) Eyes Bilateral: positive: PERRL ENT: positive: Other (patially edentulous) Neck: positive: No JVD Respiratory: positive: Chest non-tender. negative: Wheezes, Rales, Rhonchi Cardiovascular: positive: Regular rate & rhythm, Systolic murmur. negative: Gallop/S4, Friction rub Abdomen: positive: Non-tender, No organomegaly, Nml bowel sounds Rectal: positive: Hemorrhoid Back: negative: CVA tenderness (R), CVA tenderness (L) Skin: positive: Warm, Dry Extremities: positive: Full ROM, Other (both feet have timmy wraps over toes and no bleeding, no warmth evident from skin seen) - Lab Results Fish Bones: 07/06/17 07:10 07/06/17 07:10 Other Labs: Lab Results x24hrs 07/06/17 07/05/17 07/05/17 Range/Units 00:14 20:17 16:53 POC Whole Bld Glucose 216 H 226 H 282 H (70 - 100) mg/dL Last Dose Date Last Dose Time Vancomycin Trough (5.0-15.0) ug/mL 07/05/17 07/05/17 07/05/17 Range/Units 14:52 11:50 07:35 POC Whole Bld Glucose 263 H 321 H (70 - 100) mg/dL Last Dose Date 07/05/17 Last Dose Time 0800 Vancomycin Trough 18.5 H (5.0-15.0) ug/mL ABX Reporting Has patient been on IV antibiotics over the past 48 hours?: Yes Assessment/Plan - Problem List (1) History of kidney stones Impression: repeat UA. If has hematuria, check KUB for more stones. (2) Osteomyelitis Impression: Culture shows Staph aureus and a gram negative urszula Plan is for jail IV antibiotics. She is receptive about going to an LTAC or SNF. Will adjust pain meds and aim for less and less Cefepime started 07/02 Vancomycin started 07/02 Social Work updated. IV Vanco is appropriate for the Staph aureus that has grown from surgical site culture but will discuss with pharmacy about changing her to different drug since it's not MRSA (3) Occluded PICC line Qualifiers: Encounter type: subsequent encounter Qualified Code(s): T82.898D - Other specified complication of vascular prosthetic devices, implants and grafts, subsequent encounter Assessment/Plan: Resolved with TPA 3 days ago. Will plan to use this PICC line for 6 weeks of iv antibiotics. (4) PVD (peripheral vascular disease) Assessment/Plan: Continue her Pletal and ASA, statin meds and BP control. (5) IDDM (insulin dependent diabetes mellitus) Assessment/Plan: Continue monitoring POC glu, Insulin and diet adjustments per [employer]. She has responded in that she was low 300's yesterday am and today she is low 200's and even down to 143. (6) DKA (diabetic ketoacidoses) Qualifiers: Diabetes mellitus type: type 1 Diabetes mellitus complication detail: without coma Qualified Code(s): E10.10 - Type 1 diabetes mellitus with ketoacidosis without coma Assessment/Plan: Resolved. (7) Methamphetamine abuse Assessment/Plan: History of multiple drug abuse. (8) Vaginitis due to Ryann Assessment/Plan: Pt had pelvic exam and samples taken, done by Dr Kyle 07/05 Will follow his recommendations for treating her vaginitis.
[2017-07-06 07:53] LABS: BASOPHILS % (AUTO) 0.5 %; EOSINOPHILS # (AUTO) 0.1 10^3/uL (0.0-0.7); EOSINOPHILS % (AUTO) 1.1 %; HGB - HEMOGLOBIN 9.1 g/dL (12.0-16.0); LYMPHOCYTES # (AUTO) 2.2 10^3/uL (1.5-3.5); LYMPHOCYTES % (AUTO) 27.1 %; MEAN CORPUSCULAR HEMOGLOBIN 24.2 pg (27.0-31.0); MEAN CORPUSCULAR HGB CONC 32.2 g/dL (32.0-36.0); MEAN CORPUSCULAR VOLUME 75.2 fL (81.0-99.0); MEAN PLATELET VOLUME 7.8 fL (7.9-10.8); MONOCYTES # (AUTO) 0.6 10^3/uL (0.0-1.0); MONOCYTES % (AUTO) 7.7 %; NEUTROPHILS # (AUTO) 5.2 10^3/uL (1.5-6.6); NEUTROPHILS % (AUTO) 63.6 %; PLT - PLATELET COUNT 295 10^3/uL (130-450); RED BLOOD COUNT 3.77 10^6/uL (4.20-5.40); RED CELL DISTRIBUTION WIDTH 17.1 % (12.0-15.0); WHITE BLOOD COUNT 8.2 x10^3/uL (4.8-10.8)
[2017-07-06] MEDS: INSULIN ASPART 300 UNIT/3 ML PEN SUBQ SCH ×7 (08:03→21:58)
[2017-07-06 08:07] LABS: CALCIUM 8.2 mg/dL (8.5-10.3); CREATININE 0.3 mg/dL (0.4-1.0); MAGNESIUM 1.5 mg/dL (1.7-2.8)
[2017-07-06 08:16] LABS: PLATELET ESTIMATE, MANUAL NORMAL (130-450,000) (NORMAL); PLATELET MORPHOLOGY NORMAL APPEARANCE (NORMAL)
[2017-07-06] MEDS: KETOROLAC 30 MG/ML VIAL IVP PRN ×3 (09:14→21:47)
[2017-07-06] MEDS: PANTOPRAZOLE 40 MG VIAL IVP SCH ×2 (09:14→21:47)
[2017-07-06] MEDS: CEFEPIME 2 GM in SODIUM CHLORIDE 0.9% MINIBAG 100 ML IV SCH ×2 (09:21→21:48)
[2017-07-06] MEDS: INSULIN GLARGINE 300 UNIT/3 ML PEN SUBQ SCH ×2 (09:24→21:58)
[2017-07-06] MEDS: DOCUSATE SODIUM 250 MG CAPSULE PO SCH (09:29)
[2017-07-06] MEDS: POTASSIUM CHLORIDE 20 MEQ TABLET PO SCH (09:29)
[2017-07-06] MEDS: FERROUS SULFATE 325 MG TABLET PO SCH ×2 (09:30→16:17)
[2017-07-06] MEDS: OXYBUTYNIN 5MG TABLET PO SCH ×2 (09:30→21:46)
[2017-07-06] MEDS: CILOSTAZOL 100 MG TABLET PO SCH ×2 (09:30→21:46)
[2017-07-06] MEDS: diltiaZEM CD 120 MG CAPSULE PO SCH (09:31)
[2017-07-06] MEDS: FLUCONAZOLE 100 MG TABLET PO SCH (09:31)
[2017-07-06] MEDS: SACCHAROMYCES BOULARDII 250 MG CAPSULE PO SCH ×2 (09:31→16:17)
[2017-07-06] MEDS: METOPROLOL SUCCINATE 25 MG TABLET PO SCH ×2 (09:31→21:46)
[2017-07-06] MEDS: MAGNESIUM OXIDE 400 MG TABLET PO SCH (09:32)
[2017-07-06] MEDS: cloNIDine 0.1 MG TABLET PO SCH ×2 (09:32→21:46)
[2017-07-06] MEDS: MULTIVITAMIN W/MINERALS TABLET PO SCH (09:33)
[2017-07-06] MEDS: DULoxetine 20 MG CAPSULE PO SCH (09:33)
[2017-07-06] MEDS: POLYETHYLENE GLYCOL 3350 17 GM PACKET PO SCH (09:35)
[2017-07-06] MEDS: SENNA 8.6 MG TABLET PO SCH (09:41)
[2017-07-06] MEDS: LIDOCAINE OINTMENT 5% 35.44 GM TUBE TOP SCH ×4 (10:36→21:59)
[2017-07-06] MEDS: BENZOCAINE/MENTHOL LOZENGE MM PRN ×3 (11:54→21:57)
[2017-07-06 14:44] LABS: HEPATITIS A IGM NON-REACTIVE (NON-REACTIVE); HEPATITIS B CORE ANTIBODY IGM NON-REACTIVE (NON-REACTIVE); HEPATITIS B SURFACE ANTIGEN NON-REACTIVE (NON-REACTIVE); HEPATITIS C ANTIBODY NON-REACTIVE (NON-REACTIVE)
[2017-07-06] MEDS: AMITRIPTYLINE 25 MG TABLET PO SCH (21:46)
--- NOTE | 2017-07-06 21:47 | CONSULTATION NOTE ---
DATE OF SERVICE: 07/04/2017 Physician: Noe Burns MD REQUESTING PHYSICIAN: Jayshree Vides MD. INDICATIONS FOR CONSULTATION 1. Diabetic ulceration. 2. Infection of multiple toes. HISTORY OF PRESENT ILLNESS: Patient is a 36-year-old female well known to the hospitalist service because of repetitive medical admissions for insulin-dependent diabetes and other medical problems. The patient was again admitted to the hospital on 06/30/2017 with diabetes out of control. She was found at that time also to have necrotic wounds developing on multiple toes of her feet. The patient was admitted to the hospital for control of diabetic ketoacidosis and for further management of her general condition. The patient' s medical history, medications and laboratory tests are documented in her admitting record. HOSPITAL COURSE/PHYSICAL EXAMINATION: The patient was admitted and the physical exam of the patient reveals her to be somewhat drowsy and a very poor historian, not really able to focus on the encounter, but she is found to have partial necrosis of the tips of her right second and fourth toes and of her left fourth toe. These are black eschars sitting in the plantar aspect of the distal phalanx of each of these toes with mild surrounding cellulitis not extending into the foot. These toes did not on inspection have gross drainage, but workup had revealed that she was most likely chronically infected. An MRI revealed osteomyelitis of the tips of these toes and the distal phalanx. Upon evaluation of the patient, my feeling was that she had chronic osteomyelitis and ulceration of her toes. IMPRESSION 1. Diabetic ulceration of right second and fourth distal phalanx of toes with osteomyelitis. 2. Left fourth toe osteomyelitis and ulceration. PLAN: Recommendation was for partial amputation of right second and fourth toes at the PIP joint level, amputation of the left fourth toe at the DIP joint level. This surgery was scheduled for 07/04/2017. TD: 07/06/2017 16:20 BRYANNA
[2017-07-06] MEDS: MICONAZOLE VAGINAL CREAM 45 GM TUBE VG SCH (21:58)
[2017-07-07] MEDS: VANCOMYCIN INJ 1.75 GM in SODIUM CHLORIDE 0.9% 500 ML IV SCH ×3 (00:04→17:12)
[2017-07-07] MEDS: SODIUM CHLORIDE FLUSH 0.9% 10 ML SYRINGE IVP SCH ×3 (02:42→19:40)
[2017-07-07] MEDS: KETOROLAC 30 MG/ML VIAL IVP PRN ×4 (03:14→22:03)
[2017-07-07] MEDS: HYDROmorphone 2 MG TABLET PO PRN ×4 (05:57→18:28)
[2017-07-07] MEDS: ACETAMINOPHEN 1,000 MG/100 ML 100 ML IV PRN ×4 (05:58→19:31)
[2017-07-07] MEDS: GABAPENTIN 300 MG CAPSULE PO SCH ×3 (06:02→22:42)
--- NOTE | 2017-07-07 08:37 | PROVIDER PROGRESS NOTE ---
Subjective - Prog Note Date Prog Note Date: 07/05/17 Prog Note Time: 08:00 - Subjective Subjective: Felicitas Calero is a 36-year-old 3 para 3 woman who is admitted for treatment of DKA and necrosis of the toes which necessitated amputation over the weekend. On Wednesday, hospitalist requested evaluation of vulvovaginitis. On 2 prior occasions patient declined examination because of fatigue/lethargy or resultant post amputation foot pain. This morning she feels able to cooperate with pelvic exam. Patient complains of intense vulvar pruritus and associated rash which she finds typical of her frequent bouts a Ryann vulvovaginitis. Her rashes flowered post IV antibiotics. She reports a whitish discharge without any smell. She reports no vulvar lesions other than the rash. She reports abnormal Pap smears in the past but cannot recall any conization or colposcopy. It is been many years since her last Pap and pelvic. It is been 12 months since her last reported sexual contact. In the past she has had numerous partners and request STI screening. She has no breast complaints. She reports occasional urinary incontinence particularly when her blood glucose is high. She is currently on Ditropan. Her vaginal deliveries were uneventful and were not instrumental or involving extensive lacerations. We discussed pelvic exam and what is involved. She feels ready to cooperate but is anxious about her foot pain after recent amputation. Objective - Vital Signs/Intake & Output Vital Signs: Vital Signs x48h Temp Pulse Resp BP Pulse Ox 07/07/17 01:39 161/102 H 07/07/17 00:58 97.7 F 91 20 96 Intake & Output: Intake & Output 07/04/17 07/05/17 07/06/17 07/07/17 23:59 23:59 23:59 23:59 Intake Total 4260 3160 4330 1590 Output Total 3766 3020 9593 2553 Balance 1385 -4465 -2570 -960 - Lab Results Fish Bones: 07/06/17 07:10 07/06/17 07:10 Other Labs: Lab Results x24hrs 07/07/17 07/06/17 07/06/17 Range/Units 07:33 20:16 16:05 POC Whole Bld Glucose 96 198 H 198 H (70 - 100) mg/dL Hepatitis A IgM Ab (NON-REACTIVE) Hep Bs Antigen (NON-REACTIVE) Hep B Core IgM Ab (NON-REACTIVE) Hepatitis C Antibody (NON-REACTIVE) Hep C Ab Signal/Cutoff (<1.00) Ref Lab Test Result 07/06/17 07/05/17 07/05/17 Range/Units 11:49 08:46 08:46 POC Whole Bld Glucose 143 H (70 - 100) mg/dL Hepatitis A IgM Ab NON-REACTIVE (NON-REACTIVE) Hep Bs Antigen NON-REACTIVE (NON-REACTIVE) Hep B Core IgM Ab NON-REACTIVE (NON-REACTIVE) Hepatitis C Antibody NON-REACTIVE (NON-REACTIVE) Hep C Ab Signal/Cutoff 0.00 (<1.00) Ref Lab Test Result REPORT Exam - Exam Vital Signs: Vital Signs (72 hours) 07/04/17 07/04/17 07/04/17 09:33 11:43 20:51 Temperature 98.2 F 98.0 F Heart Rate [ Brachial] Heart Rate [ 112 H 104 H 103 H Monitoring electrodes] Respiratory 22 14 Rate Blood Pressure 138/87 H 129/88 H 137/102 H [Left Brachial artery] O2 Saturation 92 93 98 07/04/17 07/05/17 07/05/17 23:45 10:16 17:00 Temperature 98.7 F 97.5 F L 99.0 F Heart Rate [ Brachial] Heart Rate [ 91 91 Monitoring electrodes] Respiratory 20 21 20 Rate Blood Pressure 122/90 H 132/92 H 143/99 H [Left Brachial artery] O2 Saturation 97 98 07/05/17 07/06/17 07/06/17 21:00 00:17 04:14 Temperature 98.4 F 97.3 F L 97.9 F Heart Rate [ Brachial] Heart Rate [ 98 91 87 Monitoring electrodes] Respiratory 20 20 20 Rate Blood Pressure 142/92 H 131/83 H 138/95 H [Left Brachial artery] O2 Saturation 95 93 96 07/06/17 07/07/17 07/07/17 16:58 00:58 01:39 Temperature 97.3 F L 97.7 F Heart Rate [ 91 Brachial] Heart Rate [ 98 Monitoring electrodes] Respiratory 20 20 Rate Blood Pressure 122/85 H 161/102 H [Left Brachial artery] O2 Saturation 96 96 General: Alert, Oriented x3, Mild distress HEENT: Mucous membr. moist/pink, Other (No evident oral thrush) Abdomen: Normal bowel sounds, Soft, No tenderness, No hepatospenomegaly Extremities: Other (Multiple skin lesions similar to bug bites or self excoriation on lower external extremities) Psych/Mental Status: Other (Patient anxious and irritable) Physical Exam - Physical Exam Pelvic Exam: bimanual exam normal (Uterus is retroverted normal size and nongravid. There are 2 mobile nontender normal size ovaries; Pap smear taken with GC chlamydia testing on the specimen), no cerv. motion tender, no masses, active bleeding, discharge (White non-foul discharge without classic cottage cheese changes), other (Angry vulvitis with red plaque-like rash. No ulcers or HPV lesions) Assessment/Plan - Assessment/Plan Assessment: Patient's physical examination is consistent with florid Ryann vulvovaginitis secondary to hyperglycemia and IV antibiotic use. Uncertain if patient has chronic Ryann vulvovaginitis though there is a high likelihood given her persistent hyperglycemia and poor attention to diabetic self-care. She had multiple consort's and also at risk for STI's and therefore complete screening is indicated. Uncertain about prior IV drug use. Screening for syphilis, HIV, and hepatitis ordered. Due to her abnormal Pap history Pap smear was also given today. Plan: PLAN * Will treat her vulvovaginitis aggressively with Diflucan 100 mg every other day for 1 week followed by weekly doses 6-10 weeks. Additionally Monistat cream to be placed on external vulva. Patient symptoms may intensify initially but should subside within 3 days. 5% lidocaine cream to be applied 4-5 times daily to ease vulvar pain. * Await Pap smear results * Anticipate patient will need to return posthospitalization for continued care of her vulvovaginitis.
[2017-07-07] MEDS: PANTOPRAZOLE 40 MG VIAL IVP SCH ×2 (09:33→22:41)
[2017-07-07] MEDS: INSULIN ASPART 300 UNIT/3 ML PEN SUBQ SCH ×7 (09:36→22:54)
[2017-07-07] MEDS: INSULIN GLARGINE 300 UNIT/3 ML PEN SUBQ SCH ×2 (09:37→22:59)
[2017-07-07] MEDS: CEFEPIME 2 GM in SODIUM CHLORIDE 0.9% MINIBAG 100 ML IV SCH ×2 (09:44→22:41)
[2017-07-07] MEDS: SACCHAROMYCES BOULARDII 250 MG CAPSULE PO SCH ×2 (09:46→17:11)
[2017-07-07] MEDS: DOCUSATE SODIUM 250 MG CAPSULE PO SCH (09:46)
[2017-07-07] MEDS: diltiaZEM CD 120 MG CAPSULE PO SCH (09:47)
[2017-07-07] MEDS: POTASSIUM CHLORIDE 20 MEQ TABLET PO SCH (09:47)
[2017-07-07] MEDS: FERROUS SULFATE 325 MG TABLET PO SCH ×2 (09:47→17:11)
[2017-07-07] MEDS: MULTIVITAMIN W/MINERALS TABLET PO SCH (09:48)
[2017-07-07] MEDS: OXYBUTYNIN 5MG TABLET PO SCH ×2 (09:48→23:01)
[2017-07-07] MEDS: METOPROLOL SUCCINATE 25 MG TABLET PO SCH ×2 (09:49→22:44)
[2017-07-07] MEDS: cloNIDine 0.1 MG TABLET PO SCH ×2 (09:49→22:59)
[2017-07-07] MEDS: MAGNESIUM OXIDE 400 MG TABLET PO SCH (09:49)
[2017-07-07] MEDS: FLUCONAZOLE 100 MG TABLET PO SCH (09:49)
[2017-07-07] MEDS: CILOSTAZOL 100 MG TABLET PO SCH ×2 (09:50→22:43)
[2017-07-07] MEDS: DULoxetine 20 MG CAPSULE PO SCH (09:50)
[2017-07-07] MEDS: POLYETHYLENE GLYCOL 3350 17 GM PACKET PO SCH (09:51)
[2017-07-07] MEDS: SENNA 8.6 MG TABLET PO SCH (09:51)
[2017-07-07] MEDS: LIDOCAINE OINTMENT 5% 35.44 GM TUBE TOP SCH ×4 (09:51→22:43)
[2017-07-07] MEDS: clonazePAM 0.5 MG TABLET PO PRN (16:26)
--- NOTE | 2017-07-07 17:29 | PROVIDER PROGRESS NOTE ---
Subjective - General Admit Date: 06/30/17 Procedure Date: 07/04/17 Post Op Days: 3 Procedure Performed: toe amputations - Review of Systems Wound/Incisions: positive: Dressing dry and intact Musculoskeletal: positive: Joint pain - Other Other Information/Narrative: Patient immediately complains of pain when I enter room while she was eating dinner. c/o severe pain with recent dressing changes. Objective - Patient Data Vital Signs: Vital Signs x48h Temp Pulse Resp BP Pulse Ox 07/07/17 15:47 36.4 C L 94 20 123/84 H 94 Intake & Output: Intake and Output Totals x24h 07/05/17 07/06/17 07/07/17 23:59 23:59 23:59 Intake Total 3160 4330 3240 Output Total 7630 3330 3500 Balance -4465 -2570 -260 - Lab Results Lab Results: 07/06/17 07:10 07/06/17 07:10 Other Lab Results: Lab Results x24hrs 07/07/17 07/07/17 07/07/17 Range/Units 16:42 11:28 07:33 POC Whole Bld Glucose 108 H 239 H 96 (70 - 100) mg/dL 07/06/17 Range/Units 20:16 POC Whole Bld Glucose 198 H (70 - 100) mg/dL Micro MSSA (on Vanc Sens); Odd species (on cefepime Sens) - Current Medications Current Medications: Current Medications Generic Name Dose Route Start Last Admin Trade Name Freq PRN Reason Stop Dose Admin Amitriptyline HCl 50 mg 06/30/17 21:00 07/06/17 21:46 Elavil PO 50 mg QPM [facility] Administration Cilostazol 100 mg 06/30/17 21:00 07/07/17 09:50 Pletal PO 100 mg BID [facility] Administration Clonazepam 0.5 mg 06/30/17 15:26 07/07/17 16:26 Klonopin PO 0.5 mg BID PRN Administration Anxiety Clonidine HCl 0.1 mg 07/02/17 17:04 07/07/17 09:49 Catapres PO 0.1 mg BID [facility] Administration Diltiazem HCl 120 mg 07/02/17 17:05 07/07/17 09:47 Cardizem Cd PO 120 mg DAILY [facility] Administration Docusate Sodium 250 - 500 mg 07/06/17 09:00 07/07/17 09:46 Colace 250mg Capsule PO 250 mg DAILY [facility] Administration Duloxetine HCl 60 mg 07/01/17 09:00 07/07/17 09:50 Cymbalta PO 60 mg DAILY [facility] Administration Ferrous Sulfate 325 mg 07/05/17 11:00 07/07/17 17:11 Feosol PO 325 mg BIDWM [facility] Administration Gabapentin 900 mg 07/07/17 14:20 07/07/17 15:21 Neurontin PO 900 mg TID [facility] Administration Hydromorphone HCl 2 mg 07/05/17 10:33 07/07/17 12:25 Dilaudid PO 2 mg Q6HR PRN Administration Severe Pain Acetaminophen 100 mls @ 400 mls/hr 06/30/17 18:34 07/07/17 13:00 Ofirmev IV Infused Q6HR PRN Infusion PAIN Cefepime HCl 2 gm/ Sodium 100 mls @ 200 mls/hr 07/02/17 18:00 07/07/17 10:20 Chloride IV Infused BID [facility] Infusion Sodium Chloride 500 mls @ 20 mls/hr 07/03/17 17:37 07/06/17 15:44 Normal Saline 0.9% IV 20 mls/hr .Q25H PRN Infusion PICC Protocol Vancomycin HCl 1.75 gm/ Sodium 500 mls @ 250 mls/hr 07/05/17 16:00 07/07/17 17:12 Chloride IV 250 mls/hr Q8H [facility] Administration Ibuprofen 600 mg 06/30/17 15:06 07/03/17 19:43 Motrin PO 600 mg Q6HR PRN Administration Pain 1 to 4 Insulin Aspart 3 - 11 unit 07/05/17 08:00 07/07/17 17:12 Novolog SUBQ Not Given 0800,1200,1700,2100 [facility] Protocol Insulin Aspart 15 unit 07/05/17 10:41 07/07/17 17:16 Novolog SUBQ 15 unit TIDWM [facility] Administration Insulin Glargine 35 unit 07/06/17 09:00 07/07/17 09:37 Lantus Solostar SUBQ 35 unit BID [facility] Administration Ketorolac Tromethamine 30 mg 07/05/17 10:32 07/07/17 15:02 Toradol Inj IVP 07/09/17 06:30 30 mg Q6HR PRN Administration PAIN Lidocaine 1 applic 07/05/17 09:00 07/07/17 17:21 Xylocaine Ointment 5% TOP Not Given QID [facility] Magnesium Oxide 400 mg 07/04/17 08:00 07/07/17 09:49 Mag Ox PO 400 mg DAILYWM [facility] Administration Metoprolol Succinate 25 mg 07/02/17 17:07 07/07/17 09:49 Toprol Xl PO 25 mg BID [facility] Administration Miconazole 0.5 applic 07/05/17 09:30 07/06/17 21:58 Monistat-7 VG 07/12/17 21:01 1 unit QPM [facility] Administration Multivitamins/Minerals 1 tab 07/05/17 12:00 07/07/17 09:48 Theragran M PO 1 tab DAILYWM [facility] Administration Oxybutynin Chloride 5 mg 06/30/17 21:00 07/07/17 09:48 Ditropan PO 5 mg BID [facility] Administration Pantoprazole Sodium 40 mg 06/30/17 21:00 07/07/17 09:33 Protonix IVP 40 mg BID [facility] Administration Polyethylene Glycol 17 gm 07/06/17 09:00 07/07/17 09:51 Miralax PO Not Given DAILY [facility] Potassium Chloride 20 meq 07/04/17 08:00 07/07/17 09:47 K-Dur PO 20 meq DAILYWM [facility] Administration Prochlorperazine Edisylate 10 mg 06/30/17 15:06 06/30/17 17:37 Compazine Inj IVP 10 mg Q6HR PRN Administration Nausea / Vomiting Saccharomyces Boulardii 250 mg 07/05/17 11:00 07/07/17 17:11 Florastor PO 250 mg BIDWM [facility] Administration Senna 8.6 - 17.2 mg 07/06/17 09:00 07/07/17 09:51 Senokot PO Not Given DAILY [facility] Sodium Chloride 10 ml 06/30/17 17:00 07/07/17 09:33 Normal Saline Flush 0.9% IVP 10 ml 0100,0900,1700 [facility] Administration Sodium Chloride 10 ml 06/30/17 15:06 07/05/17 05:57 Normal Saline Flush 0.9% IVP 10 ml PRN PRN Administration NEEDED PER PROVIDER ORDERS Throat Lozenges 1 lozenge 07/01/17 21:41 07/06/17 21:57 Cepacol MM 1 lozenge Q2HR PRN Administration Throat pain - Physical Exam Wound/Incisions: positive: Healing well (Dressings not disturbed as recently changed), Dressing dry and intact, No drainage General Appearance: positive: No acute distress, Alert Eyes Bilateral: positive: Normal inspection, PERRL ENT: positive: ENT inspection nml, Pharynx nml Neck: positive: Nml inspection, No JVD Respiratory: positive: Chest non-tender, No respiratory distress, Breath sounds nml Cardiovascular: positive: Regular rate & rhythm Abdomen: positive: Non-tender, No organomegaly, Nml bowel sounds, No distention Back: positive: Nml inspection Skin: positive: Color nml, No rash, Warm, Dry Extremities: positive: Non-tender, Full ROM, Nml appearance Neurologic/Psychiatric: positive: Oriented x3, Mood/affect nml
--- NOTE | 2017-07-07 18:44 | PROVIDER PROGRESS NOTE ---
Subjective - Prog Note Date Prog Note Date: 07/07/17 Prog Note Time: 18:43 - Subjective Pt reports feeling: No change Subjective: RN and PT getting her up on feet. she's walking on heels. no more flank pain. eating well. denies cp, sob. Current Medications - Current Medications Current Medications: Active Medications Amitriptyline HCl (Elavil) 50 mg PO QPM [facility] Last Admin: 07/06/17 21:46 Dose: 50 mg Cilostazol (Pletal) 100 mg PO BID [facility] Last Admin: 07/07/17 09:50 Dose: 100 mg Clonazepam (Klonopin) 0.5 mg PO BID PRN PRN Reason: Anxiety Last Admin: 07/07/17 16:26 Dose: 0.5 mg Clonidine HCl (Catapres) 0.1 mg PO BID [facility] Last Admin: 07/07/17 09:49 Dose: 0.1 mg Diltiazem HCl (Cardizem Cd) 120 mg PO DAILY [facility] Last Admin: 07/07/17 09:47 Dose: 120 mg Docusate Sodium (Colace 250mg Capsule) 250 - 500 mg PO DAILY [facility] Last Admin: 07/07/17 09:46 Dose: 250 mg Duloxetine HCl (Cymbalta) 60 mg PO DAILY [facility] Last Admin: 07/07/17 09:50 Dose: 60 mg Ferrous Sulfate (Feosol) 325 mg PO BIDWM [facility] Last Admin: 07/07/17 17:11 Dose: 325 mg Gabapentin (Neurontin) 900 mg PO TID [facility] Last Admin: 07/07/17 15:21 Dose: 900 mg Hydromorphone HCl (Dilaudid) 2 mg PO Q6HR PRN PRN Reason: Severe Pain Last Admin: 07/07/17 18:28 Dose: 2 mg Acetaminophen (Ofirmev) 100 mls @ 400 mls/hr IV Q6HR PRN PRN Reason: PAIN Last Infusion: 07/07/17 13:00 Dose: Infused Cefepime HCl 2 gm/ Sodium (Chloride) 100 mls @ 200 mls/hr IV BID [facility] Last Infusion: 07/07/17 10:20 Dose: Infused Sodium Chloride (Normal Saline 0.9%) 500 mls @ 20 mls/hr IV .Q25H PRN PRN Reason: PICC Protocol Last Infusion: 07/06/17 15:44 Dose: 20 mls/hr Vancomycin HCl 1.75 gm/ Sodium (Chloride) 500 mls @ 250 mls/hr IV Q8H [facility] Last Admin: 07/07/17 17:12 Dose: 250 mls/hr Ibuprofen (Motrin) 600 mg PO Q6HR PRN PRN Reason: Pain 1 to 4 Last Admin: 07/03/17 19:43 Dose: 600 mg Insulin Aspart (Novolog) 3 - 11 unit SUBQ 0800,1200,1700,2100 [facility] PRN Reason: Protocol Last Admin: 07/07/17 17:12 Dose: Not Given Insulin Aspart (Novolog) 15 unit SUBQ TIDWM [facility] Last Admin: 07/07/17 17:16 Dose: 15 unit Insulin Glargine (Lantus Solostar) 35 unit SUBQ BID [facility] Last Admin: 07/07/17 09:37 Dose: 35 unit Ketorolac Tromethamine (Toradol Inj) 30 mg IVP Q6HR PRN PRN Reason: PAIN Stop: 07/09/17 06:30 Last Admin: 07/07/17 15:02 Dose: 30 mg Lidocaine (Xylocaine Ointment 5%) 1 applic TOP QID [facility] Last Admin: 07/07/17 17:21 Dose: Not Given Magnesium Oxide (Mag Ox) 400 mg PO DAILYWM [facility] Last Admin: 07/07/17 09:49 Dose: 400 mg Metoprolol Succinate (Toprol Xl) 25 mg PO BID [facility] Last Admin: 07/07/17 09:49 Dose: 25 mg Miconazole (Monistat-7) 0.5 applic VG QPM [facility] Stop: 07/12/17 21:01 Last Admin: 07/06/17 21:58 Dose: 1 unit Multivitamins/Minerals (Theragran M) 1 tab PO DAILYWM [facility] Last Admin: 07/07/17 09:48 Dose: 1 tab Oxybutynin Chloride (Ditropan) 5 mg PO BID [facility] Last Admin: 07/07/17 09:48 Dose: 5 mg Pantoprazole Sodium (Protonix) 40 mg IVP BID [facility] Last Admin: 07/07/17 09:33 Dose: 40 mg Polyethylene Glycol (Miralax) 17 gm PO DAILY [facility] Last Admin: 07/07/17 09:51 Dose: Not Given Potassium Chloride (K-Dur) 20 meq PO DAILYWM [facility] Last Admin: 07/07/17 09:47 Dose: 20 meq Prochlorperazine Edisylate (Compazine Inj) 10 mg IVP Q6HR PRN PRN Reason: Nausea / Vomiting Last Admin: 06/30/17 17:37 Dose: 10 mg Saccharomyces Boulardii (Florastor) 250 mg PO BIDWM [facility] Last Admin: 07/07/17 17:11 Dose: 250 mg Senna (Senokot) 8.6 - 17.2 mg PO DAILY [facility] Last Admin: 07/07/17 09:51 Dose: Not Given Sodium Chloride (Normal Saline Flush 0.9%) 10 ml IVP 0100,0900,1700 [facility] Last Admin: 07/07/17 09:33 Dose: 10 ml Sodium Chloride (Normal Saline Flush 0.9%) 10 ml IVP PRN PRN PRN Reason: NEEDED PER PROVIDER ORDERS Last Admin: 07/05/17 05:57 Dose: 10 ml Throat Lozenges (Cepacol) 1 lozenge MM Q2HR PRN PRN Reason: Throat pain Last Admin: 07/06/17 21:57 Dose: 1 lozenge clonazePAM [KlonoPIN] 0.5 mg PO BID PRN 06/30/17 Objective - Vital Signs/Intake & Output Reviewed Vital Signs: Yes Vital Signs: Vital Signs x48h Temp Pulse Resp BP Pulse Ox 07/07/17 15:47 36.4 C L 94 20 123/84 H 94 Intake & Output: Intake & Output 07/04/17 07/05/17 07/06/17 07/07/17 23:59 23:59 23:59 23:59 Intake Total 4260 3160 4330 4260 Output Total 8997 5075 1000 4150 Balance 2749 -0137 -2573 110 - Objective General Appearance: positive: No acute distress, Alert Eyes Bilateral: positive: PERRL Respiratory: positive: Chest non-tender. negative: Wheezes, Rales, Rhonchi Cardiovascular: positive: Regular rate & rhythm. negative: Gallop/S4, Friction rub Abdomen: positive: Non-tender, No organomegaly, Nml bowel sounds, No distention Extremities: positive: Full ROM, Other (toes covered. seen by Dr. Bellatti today ) Neurologic/Psychiatric: positive: Oriented x3, CN's nml (2-12), Motor nml - Lab Results Fish Bones: 07/06/17 07:10 07/06/17 07:10 Other Labs: Lab Results x24hrs 07/07/17 07/07/17 07/07/17 Range/Units 16:42 11:28 07:33 POC Whole Bld Glucose 108 H 239 H 96 (70 - 100) mg/dL 07/06/17 Range/Units 20:16 POC Whole Bld Glucose 198 H (70 - 100) mg/dL ABX Reporting Has patient been on IV antibiotics over the past 48 hours?: Yes Assessment/Plan - Problem List (1) Osteomyelitis Impression: Culture shows Staph aureus, Raoultella ornithonitolytica, and a gram negative urszula Plan is for [facility] IV antibiotics. She is receptive about going to an LTAC or SNF. Social work has updated me: LTAC not contracted with Medicaid. So far SNF that have been contracted have refused her. Will keep on looking. Will adjust pain meds and aim for less and less Cefepime started 07/02 Vancomycin started 07/02 IV Vanco is appropriate for the Staph aureus that has grown from surgical site culture but will discuss with pharmacy about changing her to different drug since it's not MRSA. So far same drugs (3) Occluded PICC line Qualifiers: Encounter type: subsequent encounter Qualified Code(s): T82.898D - Other specified complication of vascular prosthetic devices, implants and grafts, subsequent encounter Assessment/Plan: Resolved with TPA 4 days ago. Will plan to use this PICC line for 6 weeks of iv antibiotics. (4) PVD (peripheral vascular disease) Assessment/Plan: Continue her Pletal and ASA, statin meds and BP control. (5) IDDM (insulin dependent diabetes mellitus) Assessment/Plan: Continue monitoring POC glu, Insulin and diet adjustments per Welder Apprentice. She has responded in that she was low 300's 07/05 am and 07/04 she was low 200's and even down to 143. She is 102-239 today. NO change. (6) DKA (diabetic ketoacidoses) Qualifiers: Diabetes mellitus type: type 1 Diabetes mellitus complication detail: without coma Qualified Code(s): E10.10 - Type 1 diabetes mellitus with ketoacidosis without coma Assessment/Plan: Resolved. (7) Methamphetamine abuse Assessment/Plan: History of multiple drug abuse. (8) Vaginitis due to Ryann Assessment/Plan: Pt had pelvic exam and samples taken, done by Dr Kyle 07/05 Will follow his recommendations for treating her vaginitis. (9) History of kidney stones Impression: repeat UA. If has hematuria, check KUB for more stones. She has still not provided specimen. no flank pain today.
[2017-07-07] MEDS: SODIUM CHLORIDE 0.9% 500 ML IV PRN (19:30)
[2017-07-07] MEDS: AMITRIPTYLINE 25 MG TABLET PO SCH (22:42)
[2017-07-07] MEDS: MICONAZOLE VAGINAL CREAM 45 GM TUBE VG SCH (22:50)
[2017-07-08] MEDS: HYDROmorphone 2 MG TABLET PO PRN ×4 (00:32→18:38)
[2017-07-08] MEDS: VANCOMYCIN INJ 1.75 GM in SODIUM CHLORIDE 0.9% 500 ML IV SCH ×4 (00:44→23:56)
[2017-07-08] MEDS: ACETAMINOPHEN 1,000 MG/100 ML 100 ML IV PRN ×4 (01:58→17:03)
[2017-07-08] MEDS: SODIUM CHLORIDE FLUSH 0.9% 10 ML SYRINGE IVP SCH ×3 (01:59→16:19)
[2017-07-08] MEDS: KETOROLAC 30 MG/ML VIAL IVP PRN ×3 (04:21→16:19)
[2017-07-08] MEDS: SODIUM CHLORIDE FLUSH 0.9% 10 ML SYRINGE IVP PRN ×2 (04:22→16:19)
[2017-07-08 05:13] LABS: BILIRUBIN,URINE NEGATIVE (NEGATIVE); GLUCOSE, URINE (UA) >=1000 mg/dL (NEGATIVE); KETONES,URINE (UA) NEGATIVE (NEGATIVE); LEUKOCYTE ESTERASE, URINE NEGATIVE (NEGATIVE); NITRITE,URINE NEGATIVE (NEGATIVE); OCCULT BLOOD,URINE NEGATIVE (NEGATIVE); PROTEIN,URINE NEGATIVE (NEGATIVE); UROBILINOGEN,URINE 0.2 (NORMAL) E.U./dL (NORMAL)
[2017-07-08 05:18] LABS: CLARITY,URINE CLEAR (CLEAR)
[2017-07-08 05:22] LABS: BACTERIA,URINE None Seen /HPF (None Seen); RBC,URINE 0-5 /HPF (0-5); SQUAMOUS EPITHELIAL CELL,UR FEW Squamous (<= Few)
[2017-07-08] MEDS: GABAPENTIN 300 MG CAPSULE PO SCH ×3 (06:28→22:36)
--- NOTE | 2017-07-08 07:42 | PROVIDER PROGRESS NOTE ---
Subjective - Prog Note Date Prog Note Date: 07/08/17 Prog Note Time: 07:39 - Subjective Subjective: she threw PT out of the room yesterday. But is able to walk with RN at side. Current Medications - Current Medications Current Medications: Active Medications Amitriptyline HCl (Elavil) 50 mg PO QPM [facility] Last Admin: 07/07/17 22:42 Dose: 50 mg Cilostazol (Pletal) 100 mg PO BID [facility] Last Admin: 07/07/17 22:43 Dose: 100 mg Clonazepam (Klonopin) 0.5 mg PO BID PRN PRN Reason: Anxiety Last Admin: 07/07/17 16:26 Dose: 0.5 mg Clonidine HCl (Catapres) 0.1 mg PO BID [facility] Last Admin: 07/07/17 22:59 Dose: 0.1 mg Diltiazem HCl (Cardizem Cd) 120 mg PO DAILY [facility] Last Admin: 07/07/17 09:47 Dose: 120 mg Docusate Sodium (Colace 250mg Capsule) 250 - 500 mg PO DAILY [facility] Last Admin: 07/07/17 09:46 Dose: 250 mg Duloxetine HCl (Cymbalta) 60 mg PO DAILY [facility] Last Admin: 07/07/17 09:50 Dose: 60 mg Ferrous Sulfate (Feosol) 325 mg PO BIDWM [facility] Last Admin: 07/07/17 17:11 Dose: 325 mg Gabapentin (Neurontin) 900 mg PO TID [facility] Last Admin: 07/08/17 06:28 Dose: 900 mg Hydromorphone HCl (Dilaudid) 2 mg PO Q6HR PRN PRN Reason: Severe Pain Last Admin: 07/08/17 06:27 Dose: 2 mg Acetaminophen (Ofirmev) 100 mls @ 400 mls/hr IV Q6HR PRN PRN Reason: PAIN Last Infusion: 07/08/17 02:46 Dose: Infused Cefepime HCl 2 gm/ Sodium (Chloride) 100 mls @ 200 mls/hr IV BID [facility] Last Infusion: 07/07/17 23:15 Dose: Infused Sodium Chloride (Normal Saline 0.9%) 500 mls @ 20 mls/hr IV .Q25H PRN PRN Reason: PICC Protocol Last Admin: 07/07/17 19:30 Dose: 20 mls/hr Vancomycin HCl 1.75 gm/ Sodium (Chloride) 500 mls @ 250 mls/hr IV Q8H [facility] Last Infusion: 07/08/17 03:45 Dose: Infused Ibuprofen (Motrin) 600 mg PO Q6HR PRN PRN Reason: Pain 1 to 4 Last Admin: 07/03/17 19:43 Dose: 600 mg Insulin Aspart (Novolog) 3 - 11 unit SUBQ 0800,1200,1700,2100 [facility] PRN Reason: Protocol Last Admin: 07/07/17 22:54 Dose: Not Given Insulin Aspart (Novolog) 15 unit SUBQ TIDWM [facility] Last Admin: 07/07/17 17:16 Dose: 15 unit Insulin Glargine (Lantus Solostar) 35 unit SUBQ BID [facility] Last Admin: 07/07/17 22:59 Dose: 35 unit Ketorolac Tromethamine (Toradol Inj) 30 mg IVP Q6HR PRN PRN Reason: PAIN Stop: 07/09/17 06:30 Last Admin: 07/08/17 04:21 Dose: 30 mg Lidocaine (Xylocaine Ointment 5%) 1 applic TOP QID [facility] Last Admin: 07/07/17 22:43 Dose: 1 unit Magnesium Oxide (Mag Ox) 400 mg PO DAILYWM [facility] Last Admin: 07/07/17 09:49 Dose: 400 mg Metoprolol Succinate (Toprol Xl) 25 mg PO BID [facility] Last Admin: 07/07/17 22:44 Dose: 25 mg Miconazole (Monistat-7) 0.5 applic VG QPM [facility] Stop: 07/12/17 21:01 Last Admin: 07/07/17 22:50 Dose: 1 unit Multivitamins/Minerals (Theragran M) 1 tab PO DAILYWM [facility] Last Admin: 07/07/17 09:48 Dose: 1 tab Oxybutynin Chloride (Ditropan) 5 mg PO BID [facility] Last Admin: 07/07/17 23:01 Dose: 5 mg Pantoprazole Sodium (Protonix) 40 mg IVP BID [facility] Last Admin: 07/07/17 22:41 Dose: 40 mg Polyethylene Glycol (Miralax) 17 gm PO DAILY [facility] Last Admin: 07/07/17 09:51 Dose: Not Given Potassium Chloride (K-Dur) 20 meq PO DAILYWM [facility] Last Admin: 07/07/17 09:47 Dose: 20 meq Prochlorperazine Edisylate (Compazine Inj) 10 mg IVP Q6HR PRN PRN Reason: Nausea / Vomiting Last Admin: 06/30/17 17:37 Dose: 10 mg Saccharomyces Boulardii (Florastor) 250 mg PO BIDWM [facility] Last Admin: 07/07/17 17:11 Dose: 250 mg Senna (Senokot) 8.6 - 17.2 mg PO DAILY [facility] Last Admin: 07/07/17 09:51 Dose: Not Given Sodium Chloride (Normal Saline Flush 0.9%) 10 ml IVP 0100,0900,1700 [facility] Last Admin: 07/08/17 01:59 Dose: Not Given Sodium Chloride (Normal Saline Flush 0.9%) 10 ml IVP PRN PRN PRN Reason: NEEDED PER PROVIDER ORDERS Last Admin: 07/08/17 04:22 Dose: 10 ml Throat Lozenges (Cepacol) 1 lozenge MM Q2HR PRN PRN Reason: Throat pain Last Admin: 07/06/17 21:57 Dose: 1 lozenge clonazePAM [KlonoPIN] 0.5 mg PO BID PRN 06/30/17 Objective - Vital Signs/Intake & Output Reviewed Vital Signs: Yes Vital Signs: Vital Signs x48h Temp Pulse Resp BP 07/08/17 00:35 37.2 C 99 18 151/104 H Intake & Output: Intake & Output 07/05/17 07/06/17 07/07/17 07/08/17 23:59 23:59 23:59 23:59 Intake Total 3160 4330 6360 1320 Output Total 7685 6900 5450 2850 Balance -4416 -2570 910 -6050 - Objective General Appearance: positive: No acute distress, Alert Eyes Bilateral: positive: PERRL ENT: positive: Other (teeth poor, half gone) Neck: positive: No JVD. negative: Stiff neck, Carotid bruit Respiratory: positive: Chest non-tender, No respiratory distress. negative: Wheezes, Rales, Rhonchi Cardiovascular: positive: Regular rate & rhythm, Systolic murmur. negative: Gallop/S4, Friction rub Abdomen: positive: Non-tender, No organomegaly, Nml bowel sounds, No distention Skin: positive: Warm, Dry Extremities: positive: Non-tender, Full ROM, Other (feet wrapped and surrounding skin nml) Neurologic/Psychiatric: positive: Oriented x3, CN's nml (2-12), Motor nml - Lab Results Fish Bones: 07/09/17 06:18 07/09/17 06:18 Other Labs: Lab Results x24hrs 07/08/17 07/07/17 07/07/17 Range/Units 04:45 20:18 16:42 POC Whole Bld Glucose 134 H 108 H (70 - 100) mg/dL Urine Color YELLOW Urine Clarity CLEAR (CLEAR) Urine pH 6.0 (5.0-7.5) PH Ur Specific [place] 1.010 (1.002-1.030) Urine Protein NEGATIVE (NEGATIVE) mg/dL Urine Glucose (UA) >=1000 H (NEGATIVE) mg/dL Urine Ketones NEGATIVE (NEGATIVE) mg/dL Urine Occult Blood NEGATIVE (NEGATIVE) Urine Nitrite NEGATIVE (NEGATIVE) Urine Bilirubin NEGATIVE (NEGATIVE) Urine Urobilinogen 0.2 (NORMAL) (NORMAL) E.U./dL Ur Leukocyte Esterase NEGATIVE (NEGATIVE) Urine RBC 0-5 (0-5) /HPF Urine WBC 0-3 (0-5) /HPF Ur Squamous Epith Cells FEW Squamous (<= Few) Urine Bacteria None Seen (None Seen) /HPF Urine Culture Comments NOT INDICATED 07/07/17 Range/Units 11:28 POC Whole Bld Glucose 239 H (70 - 100) mg/dL Urine Color Urine Clarity (CLEAR) Urine pH (5.0-7.5) PH Ur Specific [place] (1.002-1.030) Urine Protein (NEGATIVE) mg/dL Urine Glucose (UA) (NEGATIVE) mg/dL Urine Ketones (NEGATIVE) mg/dL Urine Occult Blood (NEGATIVE) Urine Nitrite (NEGATIVE) Urine Bilirubin (NEGATIVE) Urine Urobilinogen (NORMAL) E.U./dL Ur Leukocyte Esterase (NEGATIVE) Urine RBC (0-5) /HPF Urine WBC (0-5) /HPF Ur Squamous Epith Cells (<= Few) Urine Bacteria (None Seen) /HPF Urine Culture Comments ABX Reporting Has patient been on IV antibiotics over the past 48 hours?: Yes Assessment/Plan - Problem List (1) Osteomyelitis Impression: Culture shows Staph aureus, Raoultella ornithonitolytica, and a gram negative urszula. Anaerobic cultures gram stain with gram positive cocci and GNR. POD #4 for toes amputations right foot Plan is for nursing home IV antibiotics. She is receptive about going to an LTAC or SNF. Social work has updated me: LTAC not contracted with Medicaid. So far SNF that have been contracted have refused her. Will keep on looking. Will adjust pain meds and aim for less and less Cefepime started 07/02 Vancomycin started / IV Vanco is appropriate for the Staph aureus that has grown from surgical site culture but will discuss with pharmacy about changing her to different drug since it's not MRSA. So far same drugs (3) Occluded PICC line Qualifiers: Encounter type: subsequent encounter Qualified Code(s): T82.898D - Other specified complication of vascular prosthetic devices, implants and grafts, subsequent encounter Assessment/Plan: Resolved with TPA 5 days ago. Will plan to use this PICC line for 6 weeks of iv antibiotics. Today is day #6. (4) PVD (peripheral vascular disease) Assessment/Plan: Continue her Pletal and ASA, statin meds and BP control. (5) IDDM (insulin dependent diabetes mellitus) Assessment/Plan: Continue monitoring POC glu, Insulin and diet adjustments per Dimensional Integration Engineer. She has responded in that she was low 300's 07/05 am and 07/04 she was low 200's and even down to 143. She was 102-239 today yesterday. Today: 283 (6) DKA (diabetic ketoacidoses) Qualifiers: Diabetes mellitus type: type 1 Diabetes mellitus complication detail: without coma Qualified Code(s): E10.10 - Type 1 diabetes mellitus with ketoacidosis without coma Assessment/Plan: Resolved. (7) Methamphetamine abuse Assessment/Plan: History of multiple drug abuse. (8) Vaginitis due to Ryann Assessment/Plan: Pt had pelvic exam and samples taken, done by Dr Kyle 07/05 Will follow his recommendations for treating her vaginitis. (9) History of kidney stones Impression: repeat UA. If has hematuria, check KUB for more stones. She had still not provided specimen as of yesterday's note and she wasn't having any more flank pain.UA done later in day was negative for hematures.
[2017-07-08] MEDS: cloNIDine 0.1 MG TABLET PO SCH ×2 (08:29→21:02)
[2017-07-08] MEDS: MULTIVITAMIN W/MINERALS TABLET PO SCH (08:30)
[2017-07-08] MEDS: CILOSTAZOL 100 MG TABLET PO SCH ×2 (08:30→21:02)
[2017-07-08] MEDS: DULoxetine 20 MG CAPSULE PO SCH (08:30)
[2017-07-08] MEDS: SENNA 8.6 MG TABLET PO SCH (08:30)
[2017-07-08] MEDS: DOCUSATE SODIUM 250 MG CAPSULE PO SCH (08:30)
[2017-07-08] MEDS: FERROUS SULFATE 325 MG TABLET PO SCH ×2 (08:31→18:44)
[2017-07-08] MEDS: diltiaZEM CD 120 MG CAPSULE PO SCH (08:31)
[2017-07-08] MEDS: MAGNESIUM OXIDE 400 MG TABLET PO SCH (08:31)
[2017-07-08] MEDS: CEFEPIME 2 GM in SODIUM CHLORIDE 0.9% MINIBAG 100 ML IV SCH ×2 (08:31→21:03)
[2017-07-08] MEDS: SACCHAROMYCES BOULARDII 250 MG CAPSULE PO SCH ×2 (08:31→18:44)
[2017-07-08] MEDS: METOPROLOL SUCCINATE 25 MG TABLET PO SCH ×2 (08:31→21:02)
[2017-07-08] MEDS: OXYBUTYNIN 5MG TABLET PO SCH ×2 (08:31→21:02)
[2017-07-08] MEDS: POTASSIUM CHLORIDE 20 MEQ TABLET PO SCH (08:31)
[2017-07-08] MEDS: POLYETHYLENE GLYCOL 3350 17 GM PACKET PO SCH (08:35)
[2017-07-08] MEDS: PANTOPRAZOLE 40 MG VIAL IVP SCH ×2 (08:35→21:09)
[2017-07-08] MEDS: LIDOCAINE OINTMENT 5% 35.44 GM TUBE TOP SCH ×4 (08:38→21:25)
[2017-07-08] MEDS: INSULIN ASPART 300 UNIT/3 ML PEN SUBQ SCH ×7 (08:39→21:19)
[2017-07-08] MEDS: INSULIN GLARGINE 300 UNIT/3 ML PEN SUBQ SCH ×2 (08:40→21:17)
[2017-07-08] MEDS ORDERED: KETOROLAC 30 MG/ML VIAL ONE (09:34)
[2017-07-08] MEDS ORDERED: SODIUM CHLORIDE FLUSH 0.9% 10 ML SYRINGE ONE (09:35)
[2017-07-08] MEDS: PROCHLORPERAZINE 10 MG/2 ML VIAL IVP PRN (20:56)
[2017-07-08] MEDS: AMITRIPTYLINE 25 MG TABLET PO SCH (21:02)
[2017-07-08] MEDS: MICONAZOLE VAGINAL CREAM 45 GM TUBE VG SCH (21:25)
[2017-07-09] MEDS: KETOROLAC 30 MG/ML VIAL IVP PRN
[2017-07-09] MEDS: HYDROmorphone 2 MG TABLET PO PRN ×4 (01:54→20:36)
[2017-07-09] MEDS: SODIUM CHLORIDE FLUSH 0.9% 10 ML SYRINGE IVP SCH ×3 (01:56→17:43)
[2017-07-09] MEDS: ACETAMINOPHEN 1,000 MG/100 ML 100 ML IV PRN ×3 (03:04→21:08)
[2017-07-09] MEDS: SODIUM CHLORIDE FLUSH 0.9% 10 ML SYRINGE IVP PRN (05:08)
[2017-07-09] MEDS: GABAPENTIN 300 MG CAPSULE PO SCH ×3 (05:09→21:32)
[2017-07-09] MEDS: IBUPROFEN 600 MG TABLET PO PRN ×3 (05:09→19:24)
[2017-07-09] MEDS: BENZOCAINE/MENTHOL LOZENGE MM PRN (05:19)
[2017-07-09 06:36] LABS: BASOPHILS % (AUTO) 0.3 %; EOSINOPHILS % (AUTO) 0.5 %; HGB - HEMOGLOBIN 8.8 g/dL (12.0-16.0); LYMPHOCYTES % (AUTO) 8.6 %; MEAN CORPUSCULAR HEMOGLOBIN 23.6 pg (27.0-31.0); MEAN CORPUSCULAR HGB CONC 31.2 g/dL (32.0-36.0); MEAN CORPUSCULAR VOLUME 75.7 fL (81.0-99.0); MEAN PLATELET VOLUME 6.6 fL (7.9-10.8); MONOCYTES % (AUTO) 6.4 %; NEUTROPHILS % (AUTO) 84.2 %; PLT - PLATELET COUNT 433 10^3/uL (130-450); RED BLOOD COUNT 3.74 10^6/uL (4.20-5.40); RED CELL DISTRIBUTION WIDTH 17.2 % (12.0-15.0); WHITE BLOOD COUNT 8.4 x10^3/uL (4.8-10.8)
[2017-07-09 06:42] LABS: ABNORMAL LYMPHS % (MANUAL) 0 %
[2017-07-09 06:48] LABS: CALCIUM 8.7 mg/dL (8.5-10.3); CREATININE 0.4 mg/dL (0.4-1.0); CRP - C-REACTIVE PROTEIN 1.6 mg/dL (0-1.0)
[2017-07-09 07:18] LABS: BAND NEUTROPHILS % (MANUAL) 6 %; DIFFERENTIAL COMMENT MANUAL DIFFERENTIAL; EOSINOPHILS # (MANUAL) 0.1 10^3/uL (0-0.7); LYMPHOCYTES # (MANUAL) 0.6 10^3/uL (1.5-3.5); LYMPHOCYTES % (MANUAL) 7 %; MONOCYTES # (MANUAL) 0.4 10^3/uL (0.0-1.0); MYELOCYTES % (MANUAL) 1 %; NEUTROPHILS # (MANUAL) 7.2 10^3/uL (1.5-6.6); NEUTROPHILS % (MANUAL) 80 %; PLATELET ESTIMATE, MANUAL NORMAL (130-450,000) (NORMAL); RBC MORPHOLOGY (MULTIPLE) NORMAL APPEARANCE (NORMAL)
--- NOTE | 2017-07-09 07:42 | PROVIDER PROGRESS NOTE ---
Subjective - Prog Note Date Prog Note Date: 07/09/17 Prog Note Time: 17:14 - Subjective Pt reports feeling: No change Subjective: She has a lot of bone pain or foot pain when you change her dressings. Her dressings were changed yesterday. Dr. Arriola did examine her today. Wound looks good. Felicitas's main complaint is the foot pain and neuropathy. She has phantom toe pain all the time. I increased her gabapentin from 600-900 mg yesterday. No chest pain, no palpitations, no shortness of breath. She refuses to work with physical therapy again. But she is walking in the room with her boot. On her heels. And uses a walker in the room. Unfortunately she cannot get a new walker to go home with because she was already given one this last few months. Medicaid does not give a walker more than once every 5 years. Current Medications - Current Medications Current Medications: Active Medications Amitriptyline HCl (Elavil) 50 mg PO QPM [facility] Last Admin: 07/08/17 21:02 Dose: 50 mg Cilostazol (Pletal) 100 mg PO BID [facility] Last Admin: 07/08/17 21:02 Dose: 100 mg Clonazepam (Klonopin) 0.5 mg PO BID PRN PRN Reason: Anxiety Last Admin: 07/07/17 16:26 Dose: 0.5 mg Clonidine HCl (Catapres) 0.1 mg PO BID [facility] Last Admin: 07/08/17 21:02 Dose: 0.1 mg Diltiazem HCl (Cardizem Cd) 120 mg PO DAILY [facility] Last Admin: 07/08/17 08:31 Dose: 120 mg Docusate Sodium (Colace 250mg Capsule) 250 - 500 mg PO DAILY [facility] Last Admin: 07/08/17 08:30 Dose: 250 mg Duloxetine HCl (Cymbalta) 60 mg PO DAILY [facility] Last Admin: 07/08/17 08:30 Dose: 60 mg Ferrous Sulfate (Feosol) 325 mg PO BIDWM [facility] Last Admin: 07/08/17 18:44 Dose: 325 mg Gabapentin (Neurontin) 900 mg PO TID [facility] Last Admin: 07/09/17 05:09 Dose: 900 mg Hydromorphone HCl (Dilaudid) 2 mg PO Q6HR PRN PRN Reason: Severe Pain Last Admin: 07/09/17 01:54 Dose: 2 mg Acetaminophen (Ofirmev) 100 mls @ 400 mls/hr IV Q6HR PRN PRN Reason: PAIN Last Infusion: 07/09/17 03:24 Dose: Infused Cefepime HCl 2 gm/ Sodium (Chloride) 100 mls @ 200 mls/hr IV BID [facility] Last Infusion: 07/08/17 22:27 Dose: Infused Sodium Chloride (Normal Saline 0.9%) 500 mls @ 20 mls/hr IV .Q25H PRN PRN Reason: PICC Protocol Last Admin: 07/07/17 19:30 Dose: 20 mls/hr Vancomycin HCl 1.75 gm/ Sodium (Chloride) 500 mls @ 250 mls/hr IV Q8H [facility] Last Infusion: 07/09/17 02:08 Dose: Infused Ibuprofen (Motrin) 600 mg PO Q6HR PRN PRN Reason: Pain 1 to 4 Last Admin: 07/09/17 05:09 Dose: 600 mg Insulin Aspart (Novolog) 3 - 11 unit SUBQ 0800,1200,1700,2100 [facility] PRN Reason: Protocol Last Admin: 07/08/17 21:19 Dose: 7 unit Insulin Aspart (Novolog) 15 unit SUBQ TIDWM [facility] Last Admin: 07/08/17 17:54 Dose: Not Given Insulin Glargine (Lantus Solostar) 35 unit SUBQ BID [facility] Last Admin: 07/08/17 21:17 Dose: 35 unit Lidocaine (Xylocaine Ointment 5%) 1 applic TOP QID [facility] Last Admin: 07/08/17 21:25 Dose: 1 applic Magnesium Oxide (Mag Ox) 400 mg PO DAILYWM [facility] Last Admin: 07/08/17 08:31 Dose: 400 mg Metoprolol Succinate (Toprol Xl) 25 mg PO BID [facility] Last Admin: 07/08/17 21:02 Dose: 25 mg Miconazole (Monistat-7) 0.5 applic VG QPM [facility] Stop: 07/12/17 21:01 Last Admin: 07/08/17 21:25 Dose: 1 unit Multivitamins/Minerals (Theragran M) 1 tab PO DAILYWM [facility] Last Admin: 07/08/17 08:30 Dose: 1 tab Oxybutynin Chloride (Ditropan) 5 mg PO BID [facility] Last Admin: 07/08/17 21:02 Dose: 5 mg Pantoprazole Sodium (Protonix) 40 mg IVP BID [facility] Last Admin: 07/08/17 21:09 Dose: 40 mg Polyethylene Glycol (Miralax) 17 gm PO DAILY [facility] Last Admin: 07/08/17 08:35 Dose: Not Given Potassium Chloride (K-Dur) 20 meq PO DAILYWM [facility] Last Admin: 07/08/17 08:31 Dose: 20 meq Prochlorperazine Edisylate (Compazine Inj) 10 mg IVP Q6HR PRN PRN Reason: Nausea / Vomiting Last Admin: 07/08/17 20:56 Dose: 10 mg Saccharomyces Boulardii (Florastor) 250 mg PO BIDWM [facility] Last Admin: 07/08/17 18:44 Dose: 250 mg Senna (Senokot) 8.6 - 17.2 mg PO DAILY [facility] Last Admin: 07/08/17 08:30 Dose: 8.6 mg Sodium Chloride (Normal Saline Flush 0.9%) 10 ml IVP 0100,0900,1700 [facility] Last Admin: 07/09/17 01:56 Dose: Not Given Sodium Chloride (Normal Saline Flush 0.9%) 10 ml IVP PRN PRN PRN Reason: NEEDED PER PROVIDER ORDERS Last Admin: 07/09/17 05:08 Dose: 30 ml Throat Lozenges (Cepacol) 1 lozenge MM Q2HR PRN PRN Reason: Throat pain Last Admin: 07/09/17 05:19 Dose: 1 lozenge clonazePAM [KlonoPIN] 0.5 mg PO BID PRN 06/30/17 Objective - Vital Signs/Intake & Output Reviewed Vital Signs: Yes Vital Signs: Vital Signs x48h Temp Pulse Resp BP Pulse Ox 07/09/17 03:05 37.4 C 07/09/17 00:30 37.9 C H 115 H 18 168/107 H 96 Intake & Output: Intake & Output 07/06/17 07/07/17 07/08/17 07/09/17 23:59 23:59 23:59 23:59 Intake Total 4330 6360 4660 1960 Output Total 6900 5450 6074 3300 Balance -2570 910 -1365 -1340 - Objective General Appearance: positive: No acute distress, Alert Eyes Bilateral: positive: PERRL ENT: positive: Other (half of teeth gone) Neck: positive: No JVD. negative: Stiff neck, Carotid bruit Respiratory: positive: Chest non-tender. negative: Wheezes, Rales, Rhonchi Cardiovascular: positive: Regular rate & rhythm, Systolic murmur. negative: Gallop/S4, Friction rub Abdomen: positive: Non-tender, No organomegaly, Nml bowel sounds, No distention Skin: positive: Warm, Dry Extremities: positive: Non-tender, Full ROM Neurologic/Psychiatric: positive: Oriented x3, CN's nml (2-12), Motor nml - Lab Results Fish Bones: 07/09/17 06:18 07/09/17 06:18 Other Labs: Lab Results x24hrs 07/09/17 07/09/1718 Range/Units 06:18 06:18 20:21 WBC 8.4 (4.8-10.8) x10^3/uL RBC 3.74 L (4.20-5.40) 10^6/uL Hgb 8.8 L (12.0-16.0) g/dL Hct 28.3 L (37.0-47.0) % MCV 75.7 L (81.0-99.0) fL MCH 23.6 L (27.0-31.0) pg MCHC 31.2 L (32.0-36.0) g/dL RDW 17.2 H (12.0-15.0) % Plt Count 433 (130-450) 10^3/uL MPV 6.6 L (7.9-10.8) fL Neut # Not Reportable Lymph # Not Reportable [place] # Not Reportable Eos # Not Reportable Baso # Not Reportable Absolute Nucleated RBC Not Reportable Total Counted 100 Band Neuts % (Manual) 6 (0 - 10) % Abnorm Lymph % (Manual) 0 % Myelocytes % 1 H ( - 0) % Nucleated RBC % Not Reportable Neutrophils # (Manual) 7.2 H (1.5-6.6) 10^3/uL Lymphocytes # (Manual) 0.6 L (1.5-3.5) 10^3/uL Monocytes # (Manual) 0.4 (0.0-1.0) 10^3/uL Eosinophils # (Manual) 0.1 (0-0.7) 10^3/uL Basophils # (Manual) 0.0 (0-0.1) 10^3/uL Differential Comment MANUAL DIFFERENTIAL Platelet Estimate NORMAL (130-450,000) (NORMAL) RBC Morph Micro Appear NORMAL APPEARANCE (NORMAL) Sodium 137 (135-145) mmol/L Potassium 3.5 (3.5-5.0) mmol/L Chloride 99 L (101-111) mmol/L Carbon Dioxide 28 (21-32) mmol/L Anion Gap 10.0 (6-13) BUN 19 (6-20) mg/dL Creatinine 0.4 (0.4-1.0) mg/dL Estimated GFR (MDRD) 182 (>89) Glucose 161 H (70-100) mg/dL POC Whole Bld Glucose 228 H (70 - 100) mg/dL Calcium 8.7 (8.5-10.3) mg/dL C-Reactive Protein 1.6 H (0-1.0) mg/dL 07/08/17 07/08/17 07/08/17 Range/Units 16:23 14:43 11:30 WBC (4.8-10.8) x10^3/uL RBC (4.20-5.40) 10^6/uL Hgb (12.0-16.0) g/dL Hct (37.0-47.0) % MCV (81.0-99.0) fL MCH (27.0-31.0) pg MCHC (32.0-36.0) g/dL RDW (12.0-15.0) % Plt Count (130-450) 10^3/uL MPV (7.9-10.8) fL Neut # Lymph # [place] # Eos # Baso # Absolute Nucleated RBC Total Counted Band Neuts % (Manual) (0 - 10) % Abnorm Lymph % (Manual) % Myelocytes % ( - 0) % Nucleated RBC % Neutrophils # (Manual) (1.5-6.6) 10^3/uL Lymphocytes # (Manual) (1.5-3.5) 10^3/uL Monocytes # (Manual) (0.0-1.0) 10^3/uL Eosinophils # (Manual) (0-0.7) 10^3/uL Basophils # (Manual) (0-0.1) 10^3/uL Differential Comment Platelet Estimate (NORMAL) RBC Morph Micro Appear (NORMAL) Sodium (135-145) mmol/L Potassium (3.5-5.0) mmol/L Chloride (101-111) mmol/L Carbon Dioxide (21-32) mmol/L Anion Gap (6-13) BUN (6-20) mg/dL Creatinine (0.4-1.0) mg/dL Estimated GFR (MDRD) (>89) Glucose (70-100) mg/dL POC Whole Bld Glucose 127 H 115 H 196 H (70 - 100) mg/dL Calcium (8.5-10.3) mg/dL C-Reactive Protein (0-1.0) mg/dL 07/08/17 Range/Units 07:47 WBC (4.8-10.8) x10^3/uL RBC (4.20-5.40) 10^6/uL Hgb (12.0-16.0) g/dL Hct (37.0-47.0) % MCV (81.0-99.0) fL MCH (27.0-31.0) pg MCHC (32.0-36.0) g/dL RDW (12.0-15.0) % Plt Count (130-450) 10^3/uL MPV (7.9-10.8) fL Neut # Lymph # [place] # Eos # Baso # Absolute Nucleated RBC Total Counted Band Neuts % (Manual) (0 - 10) % Abnorm Lymph % (Manual) % Myelocytes % ( - 0) % Nucleated RBC % Neutrophils # (Manual) (1.5-6.6) 10^3/uL Lymphocytes # (Manual) (1.5-3.5) 10^3/uL Monocytes # (Manual) (0.0-1.0) 10^3/uL Eosinophils # (Manual) (0-0.7) 10^3/uL Basophils # (Manual) (0-0.1) 10^3/uL Differential Comment Platelet Estimate (NORMAL) RBC Morph Micro Appear (NORMAL) Sodium (135-145) mmol/L Potassium (3.5-5.0) mmol/L Chloride (101-111) mmol/L Carbon Dioxide (21-32) mmol/L Anion Gap (6-13) BUN (6-20) mg/dL Creatinine (0.4-1.0) mg/dL Estimated GFR (MDRD) (>89) Glucose (70-100) mg/dL POC Whole Bld Glucose 283 H (70 - 100) mg/dL Calcium (8.5-10.3) mg/dL C-Reactive Protein (0-1.0) mg/dL ABX Reporting Has patient been on IV antibiotics over the past 48 hours?: Yes Assessment/Plan - Problem List (1) Osteomyelitis Impression: Culture shows Staph aureus, Raoultella ornithonitolytica, and Enterococcus faecium. All are sensitive to quinolones. Plan was for residential IV antibiotics and she is receptive about going to an LTAC or SNF. Social work continues to diligently find a SNF but So far SNF that have been contracted have refused her. Will keep on looking. Will adjust pain meds and aim for less and less. Dilaudid will be cut from 2 mg to 1 mg. She was having more phantom limb pain and neurontin increased from 600 mg to 900 mg tabs. Cefepime started 07/02 Vancomycin started 07/02 IV Vanco is appropriate for the Staph aureus that has grown from surgical site culture but will discuss with pharmacy about changing her to different drug since it's not MRSA. So far same drugs. I reached out to to ask about antibiotic choice and treatment duration. The fellow on-call states that diabetic foot infections are always at increased risk for ongoing infection. Even after surgery that has been successful. You really need to do a lot of wound debridement proximal to the infected site. And you also need to do culture of proximal bone, clear of infected bone, to prove that there is no further infection. That did not happen with Patti. Because of that she will need protracted antibiotic therapy for a total of 6 weeks is I have already stated. However, because all of her bugs are sensitive to quinolones, and quinolones have good bone and tissue penetration, she can be switched over to orals. He recommends getting a weekly CRP to make sure she is responding. Look at the wound every day to make sure there is no recurrence of redness, drainage, or swelling. Following pain syndrome is not a good way to assess for infection because there is always a neuropathy and phantom limb pain. As such I am stopping IV antibiotics and switching her over to Levaquin. 6 weeks of antibiotic therapy with and on August 15 check EKG now and weekly for prolonged QT bc of the levaquin. (3) Occluded PICC line Qualifiers: Encounter type: subsequent encounter Qualified Code(s): T82.898D - Other specified complication of vascular prosthetic devices, implants and grafts, subsequent encounter Assessment/Plan: Resolved with [facility]PA 6 days ago. Plan was to use this PICC line for 6 weeks of iv antibiotics but she will be switched to oral today. (4) PVD (peripheral vascular disease) Assessment/Plan: Continue her Pletal and ASA, statin meds and BP control. (5) IDDM (insulin dependent diabetes mellitus) Assessment/Plan: Continue monitoring POC glu, Insulin and diet adjustments per [employer]. She has responded in that she was low 300's 07/05 am and 07/04 she was low 200's and even down to 143. this morning she is 161. She will get low as 106 and high as 280's for the last 4 days. No more 300's. (6) DKA (diabetic ketoacidoses) Qualifiers: Diabetes mellitus type: type 1 Diabetes mellitus complication detail: without coma Qualified Code(s): E10.10 - Type 1 diabetes mellitus with ketoacidosis without coma Assessment/Plan: Resolved. (7) Methamphetamine abuse Assessment/Plan: History of multiple drug abuse. (8) Vaginitis due to Ryann Assessment/Plan: Pt had pelvic exam and samples taken, done by Dr Kyle 07/05 Will follow his recommendations for treating her vaginitis. (9) History of kidney stones Impression: repeat UA. If has hematuria, check KUB for more stones. UA was negative for hematuria.
[2017-07-09] MEDS: INSULIN ASPART 300 UNIT/3 ML PEN SUBQ SCH ×7 (08:22→21:20)
[2017-07-09] MEDS: INSULIN GLARGINE 300 UNIT/3 ML PEN SUBQ SCH ×2 (08:24→21:23)
[2017-07-09] MEDS: DOCUSATE SODIUM 250 MG CAPSULE PO SCH (08:40)
[2017-07-09] MEDS: CILOSTAZOL 100 MG TABLET PO SCH ×2 (08:40→21:09)
[2017-07-09] MEDS: SACCHAROMYCES BOULARDII 250 MG CAPSULE PO SCH ×2 (08:40→17:34)
[2017-07-09] MEDS: diltiaZEM CD 120 MG CAPSULE PO SCH (08:40)
[2017-07-09] MEDS: MAGNESIUM OXIDE 400 MG TABLET PO SCH (08:40)
[2017-07-09] MEDS: MULTIVITAMIN W/MINERALS TABLET PO SCH (08:43)
[2017-07-09] MEDS: DULoxetine 20 MG CAPSULE PO SCH (08:43)
[2017-07-09] MEDS: FERROUS SULFATE 325 MG TABLET PO SCH ×2 (08:44→17:34)
[2017-07-09] MEDS: cloNIDine 0.1 MG TABLET PO SCH ×2 (08:44→21:09)
[2017-07-09] MEDS: VANCOMYCIN INJ 1.75 GM in SODIUM CHLORIDE 0.9% 500 ML IV SCH ×2 (08:44→16:39)
[2017-07-09] MEDS: POTASSIUM CHLORIDE 20 MEQ TABLET PO SCH (08:44)
[2017-07-09] MEDS: SENNA 8.6 MG TABLET PO SCH (08:44)
[2017-07-09] MEDS: OXYBUTYNIN 5MG TABLET PO SCH ×2 (08:44→21:36)
[2017-07-09] MEDS: METOPROLOL SUCCINATE 25 MG TABLET PO SCH ×2 (08:44→21:09)
[2017-07-09] MEDS: PANTOPRAZOLE 40 MG VIAL IVP SCH ×2 (08:48→21:15)
[2017-07-09] MEDS: POLYETHYLENE GLYCOL 3350 17 GM PACKET PO SCH (08:54)
[2017-07-09] MEDS: LIDOCAINE OINTMENT 5% 35.44 GM TUBE TOP SCH ×4 (08:54→21:28)
[2017-07-09] MEDS: CEFEPIME 2 GM in SODIUM CHLORIDE 0.9% MINIBAG 100 ML IV SCH (11:31)
--- NOTE | 2017-07-09 16:09 | PROVIDER PROGRESS NOTE ---
Subjective - General Admit Date: 06/30/17 Procedure Date: 07/04/17 Post Op Days: 5 Procedure Performed: toe amputations - Review of Systems Wound/Incisions: positive: Healing well (Dressings not disturbed as recently changed), Dressing dry and intact, No drainage Musculoskeletal: positive: Foot pain (duriing dressing change blunted by dilaudid.), Joint pain Objective - Patient Data Vital Signs: Vital Signs x48h Temp Pulse Resp BP Pulse Ox 07/09/17 14:00 36.4 C L 99 20 145/90 H 98 Intake & Output: Intake and Output Totals x24h 07/07/17 07/08/17 07/09/17 23:59 23:59 23:59 Intake Total 6306 9600 3285 Output Total 8241 8838 8101 Balance 550 -5600 -5198 - Lab Results Lab Results: 07/09/17 06:18 07/09/17 06:18 Other Lab Results: Lab Results x24hrs 07/09/17 07/09/17 07/09/17 Range/Units 11:52 07:55 06:18 WBC (4.8-10.8) x10^3/uL RBC (4.20-5.40) 10^6/uL Hgb (12.0-16.0) g/dL Hct (37.0-47.0) % MCV (81.0-99.0) fL MCH (27.0-31.0) pg MCHC (32.0-36.0) g/dL RDW (12.0-15.0) % Plt Count (130-450) 10^3/uL MPV (7.9-10.8) fL Neut # Lymph # [place] # Eos # Baso # Absolute Nucleated RBC Total Counted Band Neuts % (Manual) (0 - 10) % Abnorm Lymph % (Manual) % Myelocytes % ( - 0) % Nucleated RBC % Neutrophils # (Manual) (1.5-6.6) 10^3/uL Lymphocytes # (Manual) (1.5-3.5) 10^3/uL Monocytes # (Manual) (0.0-1.0) 10^3/uL Eosinophils # (Manual) (0-0.7) 10^3/uL Basophils # (Manual) (0-0.1) 10^3/uL Differential Comment Platelet Estimate (NORMAL) RBC Morph Micro Appear (NORMAL) Sodium 137 (135-145) mmol/L Potassium 3.5 (3.5-5.0) mmol/L Chloride 99 L (101-111) mmol/L Carbon Dioxide 28 (21-32) mmol/L Anion Gap 10.0 (6-13) BUN 19 (6-20) mg/dL Creatinine 0.4 (0.4-1.0) mg/dL Estimated GFR (MDRD) 182 (>89) Glucose 161 H (70-100) mg/dL POC Whole Bld Glucose 147 H 187 H (70 - 100) mg/dL Calcium 8.7 (8.5-10.3) mg/dL C-Reactive Protein 1.6 H (0-1.0) mg/dL 07/09/17 07/08/17 07/08/17 Range/Units 06:18 20:21 16:23 WBC 8.4 (4.8-10.8) x10^3/uL RBC 3.74 L (4.20-5.40) 10^6/uL Hgb 8.8 L (12.0-16.0) g/dL Hct 28.3 L (37.0-47.0) % MCV 75.7 L (81.0-99.0) fL MCH 23.6 L (27.0-31.0) pg MCHC 31.2 L (32.0-36.0) g/dL RDW 17.2 H (12.0-15.0) % Plt Count 433 (130-450) 10^3/uL MPV 6.6 L (7.9-10.8) fL Neut # Not Reportable Lymph # Not Reportable [place] # Not Reportable Eos # Not Reportable Baso # Not Reportable Absolute Nucleated RBC Not Reportable Total Counted 100 Band Neuts % (Manual) 6 (0 - 10) % Abnorm Lymph % (Manual) 0 % Myelocytes % 1 H ( - 0) % Nucleated RBC % Not Reportable Neutrophils # (Manual) 7.2 H (1.5-6.6) 10^3/uL Lymphocytes # (Manual) 0.6 L (1.5-3.5) 10^3/uL Monocytes # (Manual) 0.4 (0.0-1.0) 10^3/uL Eosinophils # (Manual) 0.1 (0-0.7) 10^3/uL Basophils # (Manual) 0.0 (0-0.1) 10^3/uL Differential Comment MANUAL DIFFERENTIAL Platelet Estimate NORMAL (130-450,000) (NORMAL) RBC Morph Micro Appear NORMAL APPEARANCE (NORMAL) Sodium (135-145) mmol/L Potassium (3.5-5.0) mmol/L Chloride (101-111) mmol/L Carbon Dioxide (21-32) mmol/L Anion Gap (6-13) BUN (6-20) mg/dL Creatinine (0.4-1.0) mg/dL Estimated GFR (MDRD) (>89) Glucose (70-100) mg/dL POC Whole Bld Glucose 228 H 127 H (70 - 100) mg/dL Calcium (8.5-10.3) mg/dL C-Reactive Protein (0-1.0) mg/dL - Current Medications Current Medications: Current Medications Generic Name Dose Route Start Last Admin Trade Name Freq PRN Reason Stop Dose Admin Amitriptyline HCl 50 mg 06/30/17 21:00 07/08/17 21:02 Elavil PO 50 mg QPM SYLVIA Administration Cilostazol 100 mg 06/30/17 21:00 07/09/17 08:40 Pletal PO 100 mg BID SYLVIA Administration Clonazepam 0.5 mg 06/30/17 15:26 07/07/17 16:26 Klonopin PO 0.5 mg BID PRN Administration Anxiety Clonidine HCl 0.1 mg 07/02/17 17:04 07/09/17 08:44 Catapres PO 0.1 mg BID SYLVIA Administration Diltiazem HCl 120 mg 07/02/17 17:05 07/09/17 08:40 Cardizem Cd PO 120 mg DAILY SYLVIA Administration Docusate Sodium 250 - 500 mg 07/06/17 09:00 07/09/17 08:40 Colace 250mg Capsule PO 250 mg DAILY SYLVIA Administration Duloxetine HCl 60 mg 07/01/17 09:00 07/09/17 08:43 Cymbalta PO 60 mg DAILY SYLVIA Administration Ferrous Sulfate 325 mg 07/05/17 11:00 07/09/17 08:44 Feosol PO 325 mg BIDWM SYVLIA Administration Gabapentin 900 mg 07/07/17 14:20 07/09/17 14:28 Neurontin PO 900 mg TID SYLVIA Administration Hydromorphone HCl 1 mg 07/09/17 07:42 07/09/17 14:29 Dilaudid PO 1 mg Q6HR PRN Administration Severe Pain Acetaminophen 100 mls @ 400 mls/hr 06/30/17 18:34 07/09/17 14:59 Ofirmev IV Infused Q6HR PRN Infusion PAIN Cefepime HCl 2 gm/ Sodium 100 mls @ 200 mls/hr 07/02/17 18:00 07/09/17 14:59 Chloride IV Infused BID SYLVIA Infusion Sodium Chloride 500 mls @ 20 mls/hr 07/03/17 17:37 07/07/17 19:30 Normal Saline 0.9% IV 20 mls/hr .Q25H PRN Administration PICC Protocol Vancomycin HCl 1.75 gm/ Sodium 500 mls @ 250 mls/hr 07/05/17 16:00 07/09/17 11:45 Chloride IV Infused Q8H SYLVIA Infusion Ibuprofen 600 mg 06/30/17 15:06 07/09/17 12:15 Motrin PO 600 mg Q6HR PRN Administration Pain 1 to 4 Insulin Aspart 3 - 11 unit 07/05/17 08:00 07/09/17 12:09 Novolog SUBQ 3 unit 0800,1200,1700,2100 SYLVIA Administration Protocol Insulin Aspart 15 unit 07/05/17 10:41 07/09/17 12:09 Novolog SUBQ 15 unit TIDWM SYLVIA Administration Insulin Glargine 35 unit 07/06/17 09:00 07/09/17 08:24 Lantus Solostar SUBQ 35 unit BID SYLVIA Administration Lidocaine 1 applic 07/05/17 09:00 07/09/17 14:23 Xylocaine Ointment 5% TOP Not Given QID SYLVIA Magnesium Oxide 400 mg 07/04/17 08:00 07/09/17 08:40 Mag Ox PO 400 mg DAILYWM SYLVIA Administration Metoprolol Succinate 25 mg 07/02/17 17:07 07/09/17 08:44 Toprol Xl PO 25 mg BID SYLVIA Administration Miconazole 0.5 applic 07/05/17 09:30 07/08/17 21:25 Monistat-7 VG 07/12/17 21:01 1 unit QPM SYLVIA Administration Multivitamins/Minerals 1 tab 07/05/17 12:00 07/09/17 08:43 Theragran M PO 1 tab DAILYWM SYLVIA Administration Oxybutynin Chloride 5 mg 06/30/17 21:00 07/09/17 08:44 Ditropan PO 5 mg BID SYLVIA Administration Pantoprazole Sodium 40 mg 06/30/17 21:00 07/09/17 08:48 Protonix IVP 40 mg BID SYLVIA Administration Polyethylene Glycol 17 gm 07/06/17 09:00 07/09/17 08:54 Miralax PO 17 gm DAILY SYLVIA Administration Potassium Chloride 20 meq 07/04/17 08:00 07/09/17 08:44 K-Dur PO 20 meq DAILYWM SYLVIA Administration Prochlorperazine Edisylate 10 mg 06/30/17 15:06 07/08/17 20:56 Compazine Inj IVP 10 mg Q6HR PRN Administration Nausea / Vomiting Saccharomyces Boulardii 250 mg 07/05/17 11:00 07/09/17 08:40 Florastor PO 250 mg BIDWM SYLVIA Administration Senna 8.6 - 17.2 mg 07/06/17 09:00 07/09/17 08:44 Senokot PO 8.6 mg DAILY SYLVIA Administration Sodium Chloride 10 ml 06/30/17 17:00 07/09/17 08:55 Normal Saline Flush 0.9% IVP 10 ml 0100,0900,1700 SYLVIA Administration Sodium Chloride 10 ml 06/30/17 15:06 07/09/17 05:08 Normal Saline Flush 0.9% IVP 30 ml PRN PRN Administration NEEDED PER PROVIDER ORDERS Throat Lozenges 1 lozenge 07/01/17 21:41 07/09/17 05:19 Cepacol MM 1 lozenge Q2HR PRN Administration Throat pain - Physical Exam Extremities: positive: Other (Patient reports no blood in dressing (I was unable to attend dressing change.)) Impression/Plan - Problem List Problem List: By report toe amputation sites doing well. Dressing changes should not be very painful in future CRP improved to 1.6 Placement issues noted
--- NOTE | 2017-07-09 17:30 | XRAY Preliminary Report ---
Exam: XR FOOT 2 VIEW BILAT IMPRESSION: 1. 0.5 x 4 mm linear metallic density on or in the plantar soft tissue right third toe. Correlate cli nically to exclude an inadvertently retained metallic foreign body. 2. Otherwise, unremarkable postoperative exams. RADIA The above findings were discussed with Ms.connie Angelo RN, by Dr. Shari Dacosta at 17:28 hrs on . SITE ID: [id number]
--- NOTE | 2017-07-09 17:39 | XRAY Report ---
EXAMS: 1. Right Foot Radiography 2. Left Foot Radiography EXAM DATE: 07/09/2017 04:19 PM. CLINICAL HISTORY: Post-op amputations. COMPARISON: Bilateral MRIs 07/02/2017. Right foot 03/16/2017. Left foot 01/24/2017. TECHNIQUE: 2 views each foot. FINDINGS: Right: Bones: Interval amputation through the toes as follows: Entirety first distal phalanx, distal metaphy sis second middle phalanx, proximal metaphysis fourth middle phalanx. Joints: Normal. No subluxations. Soft Tissues: Postoperative edema. 0.5 x 4 mm linear metallic density on or in the plantar soft tissue third toe, at the level of the di stal metaphysis third proximal phalanx. Left: Bones: Interval amputation distal aspect fourth toe, at the level of the proximal metaphysis fourth d istal phalanx. Joints: Normal. No subluxations. Soft Tissues: Postoperative edema. No unexpected radiopaque foreign body. IMPRESSION: 1. 0.5 x 4 mm linear metallic density on or in the plantar soft tissue right third toe. Correlate cli nically to exclude an inadvertently retained metallic foreign body. 2. Otherwise, unremarkable postoperative exams. RADIA The above findings were discussed with Ms. Poly Stephens RN, by Dr. Shari Dacosta at 17:28 hrs on 0 07/09/2017. Referring Provider Line: [phone] SITE ID: [id number]
[2017-07-09] MEDS: levoFLOXacin 250 MG TABLET PO SCH (18:13)
[2017-07-09] MEDS: clonazePAM 0.5 MG TABLET PO PRN (19:24)
[2017-07-09] MEDS: ASCORBIC ACID CHEW 500 MG TABLET PO SCH (19:24)
[2017-07-09] MEDS: SODIUM CHLORIDE 0.9% 500 ML IV PRN (19:26)
[2017-07-09] MEDS: AMITRIPTYLINE 25 MG TABLET PO SCH (21:09)
[2017-07-09] MEDS: MICONAZOLE VAGINAL CREAM 45 GM TUBE VG SCH (21:28)
[2017-07-09] MEDS: FERROUS GLUCONATE 324 MG TABLET PO SCH (21:36)
[2017-07-10] MEDS: SODIUM CHLORIDE FLUSH 0.9% 10 ML SYRINGE IVP PRN ×3 (00:11→21:06)
[2017-07-10] MEDS: SODIUM CHLORIDE FLUSH 0.9% 10 ML SYRINGE IVP SCH ×3 (00:11→17:16)
[2017-07-10] MEDS: HYDROmorphone 2 MG TABLET PO PRN ×4 (03:22→21:33)
[2017-07-10] MEDS: ACETAMINOPHEN 1,000 MG/100 ML 100 ML IV PRN ×3 (05:03→19:17)
[2017-07-10] MEDS: GABAPENTIN 300 MG CAPSULE PO SCH ×3 (06:09→21:33)
[2017-07-10] MEDS: IBUPROFEN 600 MG TABLET PO PRN ×3 (08:49→21:14)
[2017-07-10] MEDS: FERROUS GLUCONATE 324 MG TABLET PO SCH (08:50)
[2017-07-10] MEDS: ASCORBIC ACID CHEW 500 MG TABLET PO SCH (08:50)
[2017-07-10] MEDS: OXYBUTYNIN 5MG TABLET PO SCH ×2 (08:50→21:14)
[2017-07-10] MEDS: diltiaZEM CD 120 MG CAPSULE PO SCH (08:50)
[2017-07-10] MEDS: cloNIDine 0.1 MG TABLET PO SCH ×2 (08:50→21:14)
[2017-07-10] MEDS: METOPROLOL SUCCINATE 25 MG TABLET PO SCH ×2 (08:50→21:15)
[2017-07-10] MEDS: levoFLOXacin 250 MG TABLET PO SCH (08:50)
[2017-07-10] MEDS: MAGNESIUM OXIDE 400 MG TABLET PO SCH (08:50)
[2017-07-10] MEDS: CILOSTAZOL 100 MG TABLET PO SCH ×2 (08:50→21:15)
[2017-07-10] MEDS: DULoxetine 20 MG CAPSULE PO SCH (08:50)
[2017-07-10] MEDS: FERROUS SULFATE 325 MG TABLET PO SCH ×2 (08:50→17:12)
[2017-07-10] MEDS: MULTIVITAMIN W/MINERALS TABLET PO SCH (08:51)
[2017-07-10] MEDS: POTASSIUM CHLORIDE 20 MEQ TABLET PO SCH (08:51)
[2017-07-10] MEDS: SACCHAROMYCES BOULARDII 250 MG CAPSULE PO SCH ×2 (08:51→17:16)
[2017-07-10] MEDS: INSULIN ASPART 300 UNIT/3 ML PEN SUBQ SCH ×7 (08:57→21:08)
[2017-07-10] MEDS: INSULIN GLARGINE 300 UNIT/3 ML PEN SUBQ SCH ×2 (08:57→21:07)
[2017-07-10] MEDS: LIDOCAINE OINTMENT 5% 35.44 GM TUBE TOP SCH ×4 (08:59→21:15)
[2017-07-10] MEDS: POLYETHYLENE GLYCOL 3350 17 GM PACKET PO SCH (08:59)
[2017-07-10] MEDS: PANTOPRAZOLE 40 MG VIAL IVP SCH ×2 (08:59→21:06)
[2017-07-10] MEDS: SENNA 8.6 MG TABLET PO SCH (08:59)
[2017-07-10] MEDS: DOCUSATE SODIUM 250 MG CAPSULE PO SCH (08:59)
[2017-07-10] MEDS ORDERED: KETOROLAC 30 MG/ML VIAL IVP SCH (15:02)
[2017-07-10] MEDS: traMADol 50 MG TABLET PO PRN ×2 (16:45→22:59)
--- NOTE | 2017-07-10 18:07 | Discharge Plan ---
Discharge Plan Disposition: Home, Self Care Condition: Good Prescriptions: traMADol [Ultram] 50 mg PO Q4HR PRN #42 tablet PRN Reason: Pain Blood Sugar Diagnostic [Glucometer Strips] 1 each MC TIDWM #90 strip Blood-Glucose Meter [Glucometer] 1 each MC DAILY #1 each Cilostazol [Pletal] 100 mg PO BID #30 tablet clonazePAM [KlonoPIN] 0.5 mg PO BID PRN #30 tablet PRN Reason: Anxiety cloNIDine [Catapres] 0.1 mg PO BID #60 tablet diltiaZEM CD [Cardizem Cd] 120 mg PO DAILY #30 capsule DULoxetine [Cymbalta] 60 mg PO DAILY #90 capsule Gabapentin [Neurontin] 900 mg PO TID #90 capsule Insulin Aspart [NovoLOG] 12 unit SUBQ TIDWM #3 pen Insulin Glargine [Lantus Solostar] 70 unit SUBQ DAILY #10 pen Lancets 1 each MC TIDWM #90 each levoFLOXacin [Levaquin] 750 mg PO DAILY #96 tablet Metoprolol Succinate [Toprol Xl] 25 mg PO BID #60 tablet Oxybutynin [Ditropan] 5 mg PO BID #60 tablet Syring-Needl,Disp,Insul,0.3 ml [Ultra Comfort] 1 each MC 5XD #90 disp.syrin Walker [Ultra-Light Rollator] 1 each MC DAILY #1 each Diet: Diabetic Activity Restrictions: Additional Comments (must walk with boot on heels to avoid pressure on balls of feet or toes) Assistance Devices: Walker Weight Bearing: Partial Weight Additional Instructions or Follow Up instructions: Your admitted to the hospital because of bone infection as a complication of diabetic foot ulcers and lack of blood supply to your toes. You have lack of blood supply to your toes from 2 reasons. One is hardening of the arteries from long-term diabetes, long-term use of med impediments and the second reason is frostbite from the times you were outside in the winter. Please clean your feet every day. Please examine your feet every day. Change the dressings on your feet as instructed by orthopedics. Please see Dr. Burns, orthopedics in follow-up at the date he requested. In order to complete treatment for osteomyelitis you must finish taking all of these antibiotics. You will complete treatment for your antibiotics on August 11, 2017. [place] the [place] have asked you to establish your self with a primary care provider. We are asking you to do so again. You have stated that you need all of your medications refilled. Klonopin and tramadol will be for a limited amount. Recognize the tramadol will interact with most of your sedatives, and seizure drugs. I would only recommend using tramadol for a very short time and a very small amount. No Smoking: If you smoke, Please STOP! Call for help. Follow-up with: Noe Burns MD [Provider Admit Priv/Credential] -
[2017-07-10] MEDS: BENZOCAINE/MENTHOL LOZENGE MM PRN (18:34)
[2017-07-10] MEDS: PROCHLORPERAZINE 10 MG/2 ML VIAL IVP PRN (21:06)
[2017-07-10] MEDS: MICONAZOLE VAGINAL CREAM 45 GM TUBE VG SCH (21:11)
[2017-07-10] MEDS: AMITRIPTYLINE 25 MG TABLET PO SCH (21:14)
[2017-07-10 23:49] VITALS: BP 104/61
[2017-07-11] MEDS: clonazePAM 0.5 MG TABLET PO PRN (00:09)
[2017-07-11] MEDS: SODIUM CHLORIDE FLUSH 0.9% 10 ML SYRINGE IVP SCH ×2 (00:09→09:36)
[2017-07-11] MEDS: traMADol 50 MG TABLET PO PRN ×2 (04:29→09:06)
[2017-07-11] MEDS: GABAPENTIN 300 MG CAPSULE PO SCH (05:52)
[2017-07-11] MEDS: HYDROmorphone 2 MG TABLET PO PRN (05:58)
[2017-07-11] MEDS: CILOSTAZOL 100 MG TABLET PO SCH (09:06)
[2017-07-11] MEDS: METOPROLOL SUCCINATE 25 MG TABLET PO SCH (09:06)
[2017-07-11] MEDS: OXYBUTYNIN 5MG TABLET PO SCH (09:06)
[2017-07-11] MEDS: ASCORBIC ACID CHEW 500 MG TABLET PO SCH (09:07)
[2017-07-11] MEDS: POTASSIUM CHLORIDE 20 MEQ TABLET PO SCH (09:07)
[2017-07-11] MEDS: levoFLOXacin 250 MG TABLET PO SCH (09:07)
[2017-07-11] MEDS: FERROUS GLUCONATE 324 MG TABLET PO SCH (09:08)
[2017-07-11] MEDS: DULoxetine 20 MG CAPSULE PO SCH (09:08)
[2017-07-11] MEDS: MAGNESIUM OXIDE 400 MG TABLET PO SCH (09:08)
[2017-07-11] MEDS: diltiaZEM CD 120 MG CAPSULE PO SCH (09:08)
[2017-07-11] MEDS: FERROUS SULFATE 325 MG TABLET PO SCH (09:10)
[2017-07-11] MEDS: cloNIDine 0.1 MG TABLET PO SCH (09:10)
[2017-07-11] MEDS: MULTIVITAMIN W/MINERALS TABLET PO SCH (09:10)
[2017-07-11] MEDS: INSULIN ASPART 300 UNIT/3 ML PEN SUBQ SCH ×2 (09:12→09:13)
[2017-07-11] MEDS: INSULIN GLARGINE 300 UNIT/3 ML PEN SUBQ SCH (09:14)
[2017-07-11] MEDS: POLYETHYLENE GLYCOL 3350 17 GM PACKET PO SCH (09:36)
[2017-07-11] MEDS: SACCHAROMYCES BOULARDII 250 MG CAPSULE PO SCH (09:36)
[2017-07-11] MEDS: SENNA 8.6 MG TABLET PO SCH (09:36)
[2017-07-11] MEDS: PANTOPRAZOLE 40 MG VIAL IVP SCH (09:36)
[2017-07-11] MEDS: DOCUSATE SODIUM 250 MG CAPSULE PO SCH (09:36)
[2017-07-11] MEDS: LIDOCAINE OINTMENT 5% 35.44 GM TUBE TOP SCH (09:36)
[2017-07-11] MEDS: IBUPROFEN 600 MG TABLET PO PRN (09:38)
--- NOTE | 2017-07-11 11:02 | PROVIDER PROGRESS NOTE ---
Subjective - General Admit Date: 06/30/17 Procedure Date: 07/04/17 Post Op Days: 7 Procedure Performed: toe amputations - Review of Systems Wound/Incisions: positive: Healing well (Dressings not disturbed as recently changed), Dressing dry and intact, No drainage Musculoskeletal: positive: Foot pain (duriing dressing change blunted by dilaudid.), Joint pain Objective - Patient Data Intake & Output: Intake and Output Totals x24h 07/09/17 07/10/17 07/11/17 23:59 23:59 23:59 Intake Total 5035 2410 470 Output Total 5819 4080 3800 Balance -571 -5449 -9900 - Lab Results Lab Results: 07/09/17 06:18 07/09/17 06:18 Other Lab Results: Lab Results x24hrs 07/11/17 07/11/17 07/10/17 Range/Units 08:15 07:48 20:00 POC Whole Bld Glucose 292 H 144 H (70 - 100) mg/dL C-Reactive Protein 2.1 H (0-1.0) mg/dL 07/10/17 07/10/17 Range/Units 16:48 11:24 POC Whole Bld Glucose 186 H 321 H (70 - 100) mg/dL C-Reactive Protein (0-1.0) mg/dL - Current Medications Current Medications: Current Medications Generic Name Dose Route Start Last Admin Trade Name Freq PRN Reason Stop Dose Admin Amitriptyline HCl 50 mg 06/30/17 21:00 07/10/17 21:14 Elavil PO 50 mg QPM SYLVIA Administration Ascorbic Acid 500 mg 07/09/17 19:00 07/11/17 09:07 Vitamin C PO 500 mg DAILY SYLVIA Administration Cilostazol 100 mg 06/30/17 21:00 07/11/17 09:06 Pletal PO 100 mg BID SYLVIA Administration Clonazepam 0.5 mg 06/30/17 15:26 07/11/17 00:09 Klonopin PO 0.5 mg BID PRN Administration Anxiety Clonidine HCl 0.1 mg 07/02/17 17:04 07/11/17 09:10 Catapres PO 0.1 mg BID SYLVIA Administration Diltiazem HCl 120 mg 07/02/17 17:05 07/11/17 09:08 Cardizem Cd PO 120 mg DAILY SYLVIA Administration Docusate Sodium 250 - 500 mg 07/06/17 09:00 07/11/17 09:36 Colace 250mg Capsule PO Not Given DAILY [facility] Duloxetine HCl 60 mg 07/01/17 09:00 07/11/17 09:08 Cymbalta PO 60 mg DAILY SYLVIA Administration Ferrous Gluconate 324 mg 07/09/17 19:00 07/11/17 09:08 Fergon PO 324 mg DAILYWM SYLVIA Administration Ferrous Sulfate 325 mg 07/05/17 11:00 07/11/17 09:10 Feosol PO 325 mg BIDWM SYLVIA Administration Gabapentin 900 mg 07/07/17 14:20 07/11/17 05:52 Neurontin PO 900 mg TID [facility] Administration Hydromorphone HCl 1 mg 07/09/17 07:42 07/11/17 05:58 Dilaudid PO 1 mg Q6HR PRN Administration Severe Pain Acetaminophen 100 mls @ 400 mls/hr 06/30/17 18:34 07/10/17 19:32 Ofirmev IV Infused Q6HR PRN Infusion PAIN Sodium Chloride 500 mls @ 20 mls/hr 07/03/17 17:37 07/09/17 19:26 Normal Saline 0.9% IV 20 mls/hr .Q25H PRN Administration PICC Protocol Ibuprofen 600 mg 06/30/17 15:06 07/11/17 09:38 Motrin PO 600 mg Q6HR PRN Administration Pain 1 to 4 Insulin Aspart 3 - 11 unit 07/05/17 08:00 07/11/17 09:13 Novolog SUBQ 9 unit 0800,1200,1700,2100 [facility] Administration Protocol Insulin Aspart 15 unit 07/05/17 10:41 07/11/17 09:12 Novolog SUBQ 15 unit TIDWM [facility] Administration Insulin Glargine 35 unit 07/06/17 09:00 07/11/17 09:14 Lantus Solostar SUBQ 35 unit BID [facility] Administration Levofloxacin 750 mg 07/09/17 18:00 07/11/17 09:07 Levaquin PO 750 mg DAILY [facility] Administration Lidocaine 1 applic 07/05/17 09:00 07/11/17 09:36 Xylocaine Ointment 5% TOP Not Given QID [facility] Magnesium Oxide 400 mg 07/04/17 08:00 07/11/17 09:08 Mag Ox PO 400 mg DAILYWM SYLVIA Administration Metoprolol Succinate 25 mg 07/02/17 17:07 07/11/17 09:06 Toprol Xl PO 25 mg BID SYLVIA Administration Miconazole 0.5 applic 07/05/17 09:30 07/10/17 21:11 Monistat-7 VG 07/12/17 21:01 1 unit QPM SYLVIA Administration Multivitamins/Minerals 1 tab 07/05/17 12:00 07/11/17 09:10 Theragran M PO 1 tab DAILYWM SYLVIA Administration Oxybutynin Chloride 5 mg 06/30/17 21:00 07/11/17 09:06 Ditropan PO 5 mg BID SYLVIA Administration Pantoprazole Sodium 40 mg 06/30/17 21:00 07/11/17 09:36 Protonix IVP Not Given BID [facility] Polyethylene Glycol 17 gm 07/06/17 09:00 07/11/17 09:36 Miralax PO Not Given DAILY [facility] Potassium Chloride 20 meq 07/04/17 08:00 07/11/17 09:07 K-Dur PO 20 meq DAILYWM SYLVIA Administration Prochlorperazine Edisylate 10 mg 06/30/17 15:06 07/10/17 21:06 Compazine Inj IVP 10 mg Q6HR PRN Administration Nausea / Vomiting Saccharomyces Boulardii 250 mg 07/05/17 11:00 07/11/17 09:36 Florastor PO Not Given BIDWM [facility] Senna 8.6 - 17.2 mg 07/06/17 09:00 07/11/17 09:36 Senokot PO Not Given DAILY [facility] Sodium Chloride 10 ml 06/30/17 17:00 07/11/17 09:36 Normal Saline Flush 0.9% IVP Not Given 0100,0900,1700 SYLVIA Sodium Chloride 10 ml 06/30/17 15:06 07/10/17 21:06 Normal Saline Flush 0.9% IVP 10 ml PRN PRN Administration NEEDED PER PROVIDER ORDERS Throat Lozenges 1 lozenge 07/01/17 21:41 07/10/17 18:34 Cepacol MM 1 lozenge Q2HR PRN Administration Throat pain Tramadol HCl 50 mg 07/10/17 15:59 07/11/17 09:06 Ultram PO 50 mg Q4HR PRN Administration PAIN - Physical Exam Wound/Incisions: positive: Dressing dry and intact (Both feet. Toe amputation wounds well closed, no erythema. NO DRAINAGE AT ALL. Patient cries out when I lift completely unstuck white gauze from wound area.) Impression/Plan - Problem List Problem List: LPatient ready for discharge. Factitious pain with dressing change. Told to follow-up with Dr Burns. for suture removal.
--- NOTE | 2017-07-12 12:21 | DISCHARGE SUMMARY ---
Physician: Jillian Sandhu MD DATE OF ADMISSION: 06/30/2017 DATE OF DISCHARGE: 07/11/2017 PLEASE REVIEW AT [facility] REMOVE THIS NOTE BEFORE SIGNING DISCHARGE DIAGNOSES 1. Type 1 diabetic ketoacidosis. 2. Type 1 diabetes mellitus, uncontrolled, with complications of peripheral vascular disease, chronic kidney disease. 3. Osteomyelitis of toes bilaterally. 4. Peripheral vascular disease of legs. 5. Ryann vaginitis. 6. Personality disorder. 7. Polysubstance abuse history. 8. Chronic sinus tachycardia. 9. Homeless status 10. History of kidney stones. DISCHARGE MEDICATIONS 1. Ultram 50 mg p.o. q.4 hours as an attempt to control pain even though multiple drug interactions. Patient is told that she will need to use this sparingly and only will be done for this week. 2. Motrin 600 mg p.o. q.6 hours. 3. Elavil 50 mg p.o. q.p.m. 4. Pletal 100 mg p.o. b.i.d. 5. Klonopin 0.5 mg p.o. b.i.d. 6. Clonidine 0.1 mg p.o. b.i.d. 7. Cardizem-CD 120 mg p.o. daily. 8. Cymbalta 60 mg p.o. daily. 9. Neurontin 900 mg p.o. t.i.d., increased from 600 mg p.o. t.i.d. 10. Lantus 70 units subcu daily. 11. NovoLog 12 units subcu t.i.d. with meals. 12. Levaquin 250 mg tablets; 3 tablets a day. To complete antibiotics on 08/11, and enough medications given to her until then. 13. Robaxin 500 mg p.o. b.i.d. 14. Toprol-XL 25 mg p.o. b.i.d. 15. Ditropan 5 mg p.o. b.i.d. 16. Durable medical goods were requested. I explained to her that while I am giving her the prescriptions, I do not know if her insurance plan will pay for them since all of these have been filled before in the outpatient setting at least once or twice. This includes a prescription for an UltraLight walker, insulin syringes, insulin needles, a glucometer, lancets. PRINCIPAL PROCEDURES 1. Chest x-ray with satisfactory PICC line placement, no acute infiltrates on lung exam. 2. Foot MRI. The left forefoot shows osteomyelitis of the distal phalanx, fourth toe. Strong suspicion for distal phalanx tuft great toe osteomyelitis. On the right foot, she has osteomyelitis of the distal phalanx of the second digit, and osteomyelitis of the distal phalanx of the fourth digit. 3. Blood cultures negative at 5 days. 4. PCR MRSA negative of nares. 5. Bone cultures on aerobic have grown out Staph aureus (not MRSA), Raoultella ornithinolytica and Enterococcus faecium. Anaerobic cultures grew out many gram negative bacilli, gram positive cocci, and final identification was not available on the day of discharge. All of these bacteria were sensitive to quinolones. 6. Partial amputation of the right second and fourth toes at the PIP joint, partial amputation of the left fourth toe at the DIP joint. HOSPITAL COURSE: The patient is a 36-year-old white female who has type 1 diabetes mellitus. At this point in the medical record, it really is difficult to say whether this person has type 1 or type 2, but she is treated as a type 1. She has multiple, multiple admissions for DKA because of noncompliance and polysubstance abuse including heroin, methamphetamines, and prescription medications. She is a homeless status. We have asked her to please establish herself with a primary care provider [place] with multiple lists given. So far, she has not been able to follow through. She has also been asked to meet with [employer] directors. They have their meetings on Fridays. [facility] directors then decide if the patient can live in a fci, [facility]. The patient has not been able to keep a Wednesday meeting with them yet, in spite of months or weeks of request on their part. In any case, the patient was found confused, sleeping in her tent, and when questioned she said she ran out of her medication several days ago and has been taking nothing. She was found again to be in DKA and placed in the ICU. Admission physical exam, besides the DKA, found her to have even worsening ulcers and peripheral vascular disease of the toes and vaginal drainage. Orthopedic consult was obtained with Dr. Burns. TILE [facility]ORTER consult was obtained with Dr. Kyle. The patient was treated as yeast vaginitis with Monistat, and Dr. Burns took the patient to the OR to do partial amputations. This was all done after her DKA had resolved. She also had a PICC line placed. PROBLEMS ADDRESSED DURING HER STAY INCLUDE: Control of her sugars. She was resumed on her usual Lantus and sliding scale as well as fixed dose scheduling of short-acting insulin before meals. She came in at 15 units and we decreased that to 12 units before meals, but she remained on the same Lantus dose. Osteomyelitis was treated with initial IV antibiotics. Once cultures came back and all were sensitive to quinolones, I spoke to [facility] on-call. They feel that oral Levaquin would be adequate treatment since it has such good tissue penetration. I did ask if she needed to complete 6 weeks and they said that if she had proximal bone biopsies of good bone, noninfected, and that was negative, then they could safely recommend that she did not have to have 6 weeks of antibiotic therapy. However, with the lack of confirmation that she had viable bone, they would recommend the full 6 weeks. She is sent home with dressings from the hospital and has been taught how to do her dressing changes. She needs to follow up with Dr. Burns in the next 1-2 weeks for followup. She continues to have peripheral vascular disease manifestations on exam, and I have explained to her that she is at high risk for a BKA and then an AKA if she continues with her substance abuse. A PICC line was placed during her stay. It was occluded and required tPA. At discharge, the PICC line was removed. She continues to manifest peripheral vascular disease in that feet are cool, no good foot pulses, pale, intermittently painful. She is not interested in being referred for vascular surgery off the [place]. She refuses to leave the [place]. She was again reminded to stop using methamphetamines and opioids. Vaginitis was treated with Monistat. At one point, the patient did complain of severe kidney stone pain. She does have a history of kidney stones. Urinalysis, however, showed no hematuria. Flank pain resolved spontaneously on its own without intervention or treatment. She continues to have a personality disorder that manifests itself as outburst of anger, foul language, especially when her request for opioid use is denied. Chronic sinus tachycardia remains treated with her multiple medications and at discharge, pulse was 99. The patient is discharged in stable condition. PHYSICAL EXAMINATION VITAL SIGNS: Temperature 35.9, pulse 99, blood pressure 104/61, respirations 20 , 93% on room air. GENERAL: She is an alert, white female who looks older than her stated age, partially edentulous. She has been showered several times in the hospital and is well groomed. HEAD AND NECK: Other than the edentulous status, is unremarkable. Neck supple with shotty adenopathy. LUNGS: Clear to auscultation and percussion. CARDIAC: PMI is normally placed with a regular rate and rhythm. She has a soft systolic ejection murmur. ABDOMEN: Benign. EXTREMITIES: The feet are wrapped in bandages and around the feet are walking boots. The patient is instructed to make sure she walks only on her heels with no pressure on the ball of her foot or toes. Dr. Dial has been seeing the patient daily. He saw her yesterday and he sees her on the day of discharge. Greater than 30 minutes was spent in coordinating discharge. All of her medications were refilled at her request. I did warn her that some durable medical goods are not filled automatically by Medicaid. For instance, her walker, glucometer may not be filled again depending on how much her insurance has already paid. I am hoping that she will keep an appointment with CARLITO Ley this coming Wednesday to then be in a [facility]. TD: 07/11/2017 10:49 BRYANNA
== END 2017-07-11 11:35 | disposition home or self-care (01) | DRG 617 ==
LOC: EDUNIT# → ED 10:30 → ICU 15:06 → MS3 07-04 17:42
PROVIDERS: ADMIT Internal Medicine; ATTEND Specialist
PROC: 02HV33Z Insertion of Infusion Device into Superior Vena Cava, Percutaneous Approach (ICD-10-PCS; 2017-06-30)
PROC: 0Y6V0Z1 Detachment at Right 4th Toe, High, Open Approach (ICD-10-PCS; 2017-07-04)
PROC: 0Y6W0Z3 Detachment at Left 4th Toe, Low, Open Approach (ICD-10-PCS; 2017-07-04)
PROC: 0Y6R0Z1 Detachment at Right 2nd Toe, High, Open Approach (ICD-10-PCS; principal; 2017-07-04 08:00)
DX: E10.10 Type 1 diabetes mellitus with ketoacidosis without coma (principal); E10.52 Type 1 diabetes mellitus with diabetic peripheral angiopathy with gangrene; M86.272 Subacute osteomyelitis, left ankle and foot; M86.271 Subacute osteomyelitis, right ankle and foot; I96 Gangrene, not elsewhere classified; T82.594A Other mechanical complication of infusion catheter, initial encounter; E10.621 Type 1 diabetes mellitus with foot ulcer; L97.521 Non-pressure chronic ulcer of other part of left foot limited to breakdown of skin; L97.511 Non-pressure chronic ulcer of other part of right foot limited to breakdown of skin; T38.3X6A Underdosing of insulin and oral hypoglycemic [antidiabetic] drugs, initial encounter; L03.032 Cellulitis of left toe; L03.031 Cellulitis of right toe; B95.61 Methicillin susceptible Staphylococcus aureus infection as the cause of diseases classified elsewhere; B95.2 Enterococcus as the cause of diseases classified elsewhere; B96.89 Other specified bacterial agents as the cause of diseases classified elsewhere; E87.6 Hypokalemia; E10.22 Type 1 diabetes mellitus with diabetic chronic kidney disease; N18.9 Chronic kidney disease, unspecified; E10.69 Type 1 diabetes mellitus with other specified complication; E10.42 Type 1 diabetes mellitus with diabetic polyneuropathy; B37.3 Candidiasis of vulva and vagina; F60.9 Personality disorder, unspecified; R00.0 Tachycardia, unspecified; I25.10 Atherosclerotic heart disease of native coronary artery without angina pectoris; I10 Essential (primary) hypertension; F32.9 Major depressive disorder, single episode, unspecified; F41.0 Panic disorder [episodic paroxysmal anxiety]; M79.7 Fibromyalgia; G54.6 Phantom limb syndrome with pain; G89.29 Other chronic pain; F15.10 Other stimulant abuse, uncomplicated; F11.10 Opioid abuse, uncomplicated; F17.200 Nicotine dependence, unspecified, uncomplicated; R10.9 Unspecified abdominal pain; T33.832S Superficial frostbite of left toe(s), sequela; T33.831S Superficial frostbite of right toe(s), sequela; I25.2 Old myocardial infarction; Z87.442 Personal history of urinary calculi; Z59.0 Homelessness; Z91.138 Patient's unintentional underdosing of medication regimen for other reason; Z89.429 Acquired absence of other toe(s), unspecified side; Z76.5 Malingerer [conscious simulation]; Z79.899 Other long term (current) drug therapy
CPT/HCPCS: 36415; 71045; 80048; 80053; 80074; 80306; 81001; 81003; 81599; 82009; 82310; 82330; 82803; 82947; 83036; 83690; 83735; 84132; 84484; 84703; 85025; 86140; 86317; 86803; 87040; 87070; 87077; 87086; 87150; 87205; 87340; 88305; 88311; 93005; 96360; 96361; 99283; 99284

== ENCOUNTER 2017-07-14 17:03 | Outpatient (CLI) | payer MEDICAID | END 2017-07-14 17:04 | disposition critical access hospital (66) | LOC: EMS 17:03 | PROVIDERS: ATTEND Surgery | DX: R53.81 Other malaise (principal); R11.2 Nausea with vomiting, unspecified; R73.09 Other abnormal glucose | CPT/HCPCS: A0425; A0429 ==

== ENCOUNTER 2017-07-14 17:25 | Emergency (ER) | payer MEDICAID ==
--- NOTE | 2017-07-14 18:26 | ED Physician Documentation ---
PD HPI NVD - Stated complaint Stated Complaint: DKA - Chief complaint Chief Complaint: General - History obtained from History obtained from: Patient, EMS - History of Present Illness Timing - onset: Today Timing - duration: Days (1) Timing - details: Gradual onset, Still present Associated symptoms: Other (feeling generally ill/malaise, with nausea and vomiting. Feeling similar to DKA in the past. Denies URI symptoms per se.). No : Fever, Abdominal pain Contributing factors: Recent antibiotics. No: Sick contact, Bad food Worsened by: Eating Similar symptoms before: Has not had sx before Recently seen: Surgery (had amputation of some toes about week and half ago with pain of them. No noted infection but has not changed dressings regularly.) Review of Systems Constitutional: reports: Myalgias, Fatigue. denies: Fever, Chills Nose: denies: Rhinorrhea / runny nose, Congestion Throat: denies: Sore throat Respiratory: denies: Cough GI: reports: Nausea, Vomiting. denies: Abdominal Pain, Diarrhea : denies: Dysuria, Frequency Skin: denies: Rash, Lesions Musculoskeletal: reports: Extremity pain (feet where toes were amputated.) Neurologic: reports: Generalized weakness. 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 HEENT: None Psych: Depression, Anxiety, Panic attacks Musculoskeletal: Fibromyalgia Derm: None - Past Surgical History Past Surgical History: Yes General: Cholecystectomy HEENT: Tonsil/Adenoidectomy - Present Medications Home Medications: Ambulatory Orders Medication Instructions Recorded Confirmed Ibuprofen [Motrin] 600 mg PO Q6HR PRN #60 tablet 05/11/17 06/30/17 Walker [Ultra-Light Rollator] 1 each MC DAILY #1 each 07/06/17 Cilostazol [Pletal] 100 mg PO BID #30 tablet 07/10/17 DULoxetine [Cymbalta] 60 mg PO DAILY #90 capsule 07/10/17 Gabapentin [Neurontin] 900 mg PO TID #90 capsule 07/10/17 Insulin Aspart [NovoLOG] 12 unit SUBQ TIDWM #3 pen 07/10/17 Insulin Glargine [Lantus Solostar] 70 unit SUBQ DAILY #10 pen 07/10/17 Metoprolol Succinate [Toprol Xl] 25 mg PO BID #60 tablet 07/10/17 Oxybutynin [Ditropan] 5 mg PO BID #60 tablet 07/10/17 Syring-Needl,Disp,Insul,0.3 ml 1 each MC 5XD #90 disp.syrin 07/10/17 [Ultra Comfort] cloNIDine [Catapres] 0.1 mg PO BID #60 tablet 07/10/17 diltiaZEM CD [Cardizem Cd] 120 mg PO DAILY #30 capsule 07/10/17 levoFLOXacin [Levaquin] 750 mg PO DAILY #96 tablet 07/10/17 Blood Sugar Diagnostic [Glucometer 1 each MC TIDWM #90 strip 07/11/17 Strips] Blood-Glucose Meter [Glucometer] 1 each MC DAILY #1 each 07/11/17 Lancets 1 each MC TIDWM #90 each 07/11/17 Amitriptyline [Elavil] 25 mg PO HS #20 tablet 07/15/17 Insulin Aspart [Novolog Flexpen] 25 unit SUBQ ACHS #5 each 07/15/17 Pen Needle, Diabetic [Pentips] 1 each MC DAILY #10 dis.needle 07/15/17 Tramadol HCl 50 mg PO Q6H PRN #20 tablet 07/15/17 - Allergies Allergies/Adverse Reactions: Allergies Allergy/AdvReac Type Severity Reaction Status Date / Time codeine Allergy Hives Verified 07/14/17 17:30 hydrocodone Allergy Hives Verified 07/14/17 17:30 morphine Allergy Itching Verified 07/14/17 20:43 milk AdvReac Cramps Verified 07/14/17 17:30 nitrofurantoin AdvReac Headache Verified 07/14/17 17:30 [From Macrobid] PAPER TAPE AdvReac Unknown Uncoded 07/14/17 17:30 - Social History Does the pt smoke?: Yes Smoking Status: Current every day smoker Does the pt drink ETOH?: No Does the pt have substance abuse?: Yes - Immunizations Immunizations are current?: Yes - POLST Patient has POLST: No POLST Status: Full Code PD ED PE NORMAL - Vitals Vital signs reviewed: Yes - General General: Alert and oriented X 3, Well developed/nourished, Other (in pain from feet, and feeling nauseated. ) - HEENT HEENT: Moist mucous membranes, Pharynx benign - Neck Neck: No adenopathy, No JVD - Cardiac Cardiac: RRR, No murmur - Respiratory Respiratory: Clear bilaterally - Abdomen Abdomen: Soft, Non tender - Derm Derm: Normal color, Warm and dry - Extremities Extremities: Other (bandaging on toes of feet. Tech removed dressing and no signs of infection at this time. Dressings changed. ) - Neuro Neuro: Alert and oriented X 3, No motor deficit, Normal speech Results - Vitals Vitals: Vital Signs - 24 hr 07/14/17 07/14/17 07/14/17 17:27 21:14 22:54 Temperature 36.5 C Heart Rate 91 120 H 114 H Respiratory 24 20 15 Rate Blood Pressure 89/71 L 119/92 H 118/62 O2 Saturation 100 97 98 07/15/17 07/15/17 07/15/17 00:20 02:10 04:00 Temperature 36.6 C Heart Rate 107 H 113 H 111 H Respiratory 20 21 18 Rate Blood Pressure 133/76 H 142/99 H 132/74 H O2 Saturation 95 96 97 07/15/17 06:01 Temperature 36.3 C L Heart Rate 71 Respiratory 18 Rate Blood Pressure 122/69 O2 Saturation 98 Oxygen O2 Source [Without Activity] Room air O2 Source Room air - Labs Labs: Laboratory Tests 07/14/17 07/14/17 07/14/17 18:55 18:55 18:55 WBC 6.5 RBC 4.51 Hgb 10.7 L Hct 35.2 L MCV 78.2 L MCH 23.9 L MCHC 30.5 L RDW 18.4 H Plt Count 644 H MPV 6.7 L Neut # 3.6 Lymph # 2.2 [place] # 0.6 Eos # 0.0 Baso # 0.1 Absolute Nucleated RBC 0.00 Nucleated RBC % 0.0 VBG pH 7.403 VBG pCO2 28.4 L VBG pO2 34.3 VBG HCO3 17.3 L VBG Total CO2 18.2 L VBG O2 Saturation 63.9 VBG Base Excess -6.3 L Sodium 130 L Potassium 4.2 Chloride 89 L Carbon Dioxide 18 L Anion Gap 23.0 H BUN 41 H Creatinine 1.4 H Estimated GFR (MDRD) 43 L Glucose 439 H POC Whole Bld Glucose Calcium 9.7 Magnesium 2.2 Total Bilirubin 1.5 H AST 17 ALT 41 Alkaline Phosphatase 137 H Total Protein 8.7 H Albumin 4.5 Globulin 4.2 Albumin/Globulin Ratio 1.1 Lipase 11 L Serum Ketones MODERATE H 07/14/17 07/14/17 07/14/17 19:25 21:13 22:40 WBC RBC Hgb Hct MCV MCH MCHC RDW Plt Count MPV Neut # Lymph # [place] # Eos # Baso # Absolute Nucleated RBC Nucleated RBC % VBG pH VBG pCO2 VBG pO2 VBG HCO3 VBG Total CO2 VBG O2 Saturation VBG Base Excess Sodium Potassium Chloride Carbon Dioxide Anion Gap BUN Creatinine Estimated GFR (MDRD) Glucose POC Whole Bld Glucose 402 H 357 H 389 H Calcium Magnesium Total Bilirubin AST ALT Alkaline Phosphatase Total Protein Albumin Globulin Albumin/Globulin Ratio Lipase Serum Ketones 07/14/17 07/15/17 07/15/17 23:20 00:18 01:29 WBC RBC Hgb Hct MCV MCH MCHC RDW Plt Count MPV Neut # Lymph # [place] # Eos # Baso # Absolute Nucleated RBC Nucleated RBC % VBG pH VBG pCO2 VBG pO2 VBG HCO3 VBG Total CO2 VBG O2 Saturation VBG Base Excess Sodium 131 L Potassium 3.5 Chloride 93 L Carbon Dioxide 22 Anion Gap 16.0 H BUN 43 H Creatinine 1.3 H Estimated GFR (MDRD) 47 L Glucose 351 H POC Whole Bld Glucose 359 H 357 H Calcium 9.0 Magnesium Total Bilirubin AST ALT Alkaline Phosphatase Total Protein Albumin Globulin Albumin/Globulin Ratio Lipase Serum Ketones MODERATE H 07/15/17 07/15/17 07/15/17 03:52 04:43 05:35 WBC RBC Hgb Hct MCV MCH MCHC RDW Plt Count MPV Neut # Lymph # [place] # Eos # Baso # Absolute Nucleated RBC Nucleated RBC % VBG pH VBG pCO2 VBG pO2 VBG HCO3 VBG Total CO2 VBG O2 Saturation VBG Base Excess Sodium Potassium Chloride Carbon Dioxide Anion Gap BUN Creatinine Estimated GFR (MDRD) Glucose POC Whole Bld Glucose 502 H* 452 H 409 H Calcium Magnesium Total Bilirubin AST ALT Alkaline Phosphatase Total Protein Albumin Globulin Albumin/Globulin Ratio Lipase Serum Ketones PD MEDICAL DECISION MAKING - ED course Complexity details: reviewed results, re-evaluated patient (improved symptoms. She has ketosis with normal pH. Likely can improve here with fluids and meds. Our hospital is full so not taking admissions/OBS. She does not seem ill enough for transfer. Will end up being prolonged ER stay but presume will improve over several hours. ) ED course: She is taking oral food and fluids, sugars coming down. Seems to be improving. Has obvious painful process with recent toes surgery, yet wanting to not give much meds with her drug abuse history. Tough balance. We talked about it and did give some pain meds here. She says she was discharged with Rx for Tramadol and Elavil on recent admission. I feel I can Rx those meds. Departure - Departure Disposition: Home, Self Care Clinical Impression: Acute hyperglycemia, Ketosis due to diabetes Acute postoperative pain of foot Qualifiers: Laterality: unspecified laterality Qualified Code(s): M79.673 - Pain in unspecified foot Nausea and vomiting Qualifiers: Vomiting type: unspecified Vomiting Intractability: non-intractable Qualified Code(s): R11.2 - Nausea with vomiting, unspecified Condition: Stable Record reviewed to determine appropriate education?: Yes Prescriptions: Amitriptyline [Elavil] 25 mg PO HS #20 tablet Insulin Aspart [Novolog Flexpen] 25 unit SUBQ ACHS #5 each Pen Needle, Diabetic [Pentips] 1 each MC DAILY #10 dis.needle Tramadol HCl 50 mg PO Q6H PRN #20 tablet PRN Reason: Pain Comments: Continue your current and usual medications. Adequate hydration. Recheck if not improved over the next 2-3 days. Discharge Date/Time: 07/15/17 06:41
[2017-07-14] MEDS ORDERED: HYDROmorphone 2 MG/ML VIAL IM STA (18:39)
[2017-07-14] MEDS ORDERED: KETOROLAC 30 MG/ML VIAL IM STA (18:39)
[2017-07-14] MEDS ORDERED: SODIUM CHLORIDE 0.9% 1,000 ML IV ONE ×3 (18:39→23:40)
[2017-07-14] MEDS ORDERED: PROMETHAZINE 25 MG/1 ML VIAL IM STA (18:39)
[2017-07-14 18:58] LABS: BASOPHILS # (AUTO) 0.1 10^3/uL (0.0-0.1); EOSINOPHILS % (AUTO) 0.3 %; HGB - HEMOGLOBIN 10.7 g/dL (12.0-16.0); LYMPHOCYTES # (AUTO) 2.2 10^3/uL (1.5-3.5); LYMPHOCYTES % (AUTO) 33.7 %; MEAN CORPUSCULAR HEMOGLOBIN 23.9 pg (27.0-31.0); MEAN CORPUSCULAR HGB CONC 30.5 g/dL (32.0-36.0); MEAN CORPUSCULAR VOLUME 78.2 fL (81.0-99.0); MEAN PLATELET VOLUME 6.7 fL (7.9-10.8); MONOCYTES # (AUTO) 0.6 10^3/uL (0.0-1.0); MONOCYTES % (AUTO) 8.9 %; NEUTROPHILS # (AUTO) 3.6 10^3/uL (1.5-6.6); NEUTROPHILS % (AUTO) 56.1 %; PLT - PLATELET COUNT 644 10^3/uL (130-450); RED BLOOD COUNT 4.51 10^6/uL (4.20-5.40); RED CELL DISTRIBUTION WIDTH 18.4 % (12.0-15.0); WHITE BLOOD COUNT 6.5 x10^3/uL (4.8-10.8)
[2017-07-14 18:59] LABS: VBG PH 7.403 (7.31-7.41)
[2017-07-14 19:00] LABS: VBG BASE EXCESS -6.3 mmol/L (-2 - +2); VBG PCO2 28.4 mmHg (41-51); VBG PO2 34.3 mmHg (25-47); VBG TOTAL CO2 18.2 mmol/L (24-29)
[2017-07-14] MEDS ORDERED: MAG HYDROX/AL HYDROX/SIMETH 30 ML UDC PO STA (19:03)
[2017-07-14] MEDS ORDERED: LIDOCAINE VISCOUS 2% 15 ML UDC MM STA (19:03)
[2017-07-14 19:05] LABS: KETONES, SERUM (ACETEST) MODERATE (NEGATIVE)
[2017-07-14 19:13] LABS: ALBUMIN 4.5 g/dL (3.2-5.5); ALBUMIN/GLOBULIN RATIO 1.1 (1.0-2.2); ALKALINE PHOSPHATASE 137 IU/L (42-121); ALT ALANINE AMINOTRANSFERASE 41 IU/L (10-60); AST ASPARTATE AMINOTRANSFERASE 17 IU/L (10-42); BILIRUBIN,TOTAL 1.5 mg/dL (0.2-1.0); BUN - BLOOD UREA NITROGEN 41 mg/dL (6-20); CALCIUM 9.7 mg/dL (8.5-10.3); CARBON DIOXIDE - CO2 18 mmol/L (21-32); CHLORIDE 89 mmol/L (101-111); CREATININE 1.4 mg/dL (0.4-1.0); GFR - MDRD 43 (>89); GLUCOSE 439 mg/dL (70-100); LIPASE 11 U/L (22-51); MAGNESIUM 2.2 mg/dL (1.7-2.8); SODIUM 130 mmol/L (135-145); TOTAL PROTEIN 8.7 g/dL (6.7-8.2)
[2017-07-14] MEDS ORDERED: MORPHINE 10 MG/ML VIAL IVP STA (20:12)
[2017-07-14] MEDS ORDERED: INSULIN REGULAR HUMAN 100 UNIT/1 ML 10 ML MDV IVP STA ×2 (20:12→22:34)
[2017-07-14] MEDS ORDERED: LORazepam 2 MG/ML VIAL IVP STA (20:12)
[2017-07-14] MEDS ORDERED: diphenhydrAMINE INJ 50 MG/ML VIAL ONE (21:13)
[2017-07-14] MEDS ORDERED: diphenhydrAMINE INJ 50 MG/ML VIAL IVP STA (21:50)
[2017-07-14] MEDS ORDERED: GABAPENTIN 100 MG CAPSULE PO STA (22:54)
[2017-07-14] MEDS ORDERED: METOCLOPRAMIDE 10 MG/2 ML VIAL IVP STA (22:54)
[2017-07-14 23:34] LABS: KETONES, SERUM (ACETEST) MODERATE (NEGATIVE)
[2017-07-14 23:36] LABS: BUN - BLOOD UREA NITROGEN 43 mg/dL (6-20); CARBON DIOXIDE - CO2 22 mmol/L (21-32); CHLORIDE 93 mmol/L (101-111); CREATININE 1.3 mg/dL (0.4-1.0); GFR - MDRD 47 (>89); GLUCOSE 351 mg/dL (70-100); SODIUM 131 mmol/L (135-145)
[2017-07-15] MEDS ORDERED: INSULIN REGULAR HUMAN 100 UNIT/1 ML 10 ML MDV IVP STA (00:38)
[2017-07-15] MEDS ORDERED: MORPHINE 10 MG/ML VIAL IVP STA (00:38)
[2017-07-15] MEDS ORDERED: SODIUM CHLORIDE 0.9% 1,000 ML IV ONE (00:38)
[2017-07-15] MEDS ORDERED: diphenhydrAMINE INJ 50 MG/ML VIAL IVP STA (00:50)
[2017-07-15] MEDS ORDERED: INSULIN GLARGINE 300 UNIT/3 ML PEN SUBQ STA (03:58)
[2017-07-15] MEDS ORDERED: INSULIN ASPART 100 UNIT/1 ML 10 ML MDV SUBQ STA (03:58)
[2017-07-15] MEDS ORDERED: traMADol 50 MG TABLET PO STA (05:46)
[2017-07-15 06:02] VITALS: BP 122/69
== END 2017-07-15 06:41 | disposition home or self-care (01) ==
LOC: EDUNIT# → ED 17:25
DX: E10.10 Type 1 diabetes mellitus with ketoacidosis without coma (principal); M79.673 Pain in unspecified foot; R11.2 Nausea with vomiting, unspecified; E78.00 Pure hypercholesterolemia, unspecified; I10 Essential (primary) hypertension; E10.51 Type 1 diabetes mellitus with diabetic peripheral angiopathy without gangrene; F17.200 Nicotine dependence, unspecified, uncomplicated; Z89.429 Acquired absence of other toe(s), unspecified side
CPT/HCPCS: 36415; 80048; 80053; 82009; 82803; 83690; 83735; 85025; 96361; 96372; 96374; 96375; 96376; 99285; A9270; J1170; J1200; J1815; J2060; J2765

== ENCOUNTER 2017-08-01 17:22 | Outpatient (CLI) | payer MEDICAID | END 2017-08-01 17:23 | disposition critical access hospital (66) | LOC: EMS 17:22 | PROVIDERS: ATTEND Surgery | DX: R40.20 Unspecified coma (principal) | CPT/HCPCS: A0425; A0427 ==

== ENCOUNTER 2017-08-01 17:42 | Inpatient (IN) | END 2017-08-05 14:00 | disposition home or self-care (01) | DRG 638 ==

== ENCOUNTER 2017-08-13 08:44 | Outpatient (CLI) | payer MEDICAID | END 2017-08-13 08:45 | disposition critical access hospital (66) | LOC: EMS 08:44 | PROVIDERS: ATTEND Surgery | DX: R53.1 Weakness (principal); R11.2 Nausea with vomiting, unspecified; R52 Pain, unspecified; R73.09 Other abnormal glucose | CPT/HCPCS: A0425; A0427 ==

== ENCOUNTER 2017-08-13 09:04 | Inpatient (IN) | payer MEDICAID ==
[2017-08-13] MEDS ORDERED: SODIUM CHLORIDE 0.9% 2,000 ML IV ONE (09:16)
--- NOTE | 2017-08-13 09:23 | ED Physician Documentation ---
History of Present Illness - Stated complaint Stated Complaint: WEAKNESS/VOMITING - Additonal information Additional information: hx from EMS and pt 36 f denies preg [facility] with freq severe DKA also suffered frostbite to her toes last winter as she was homeless and has had subsequent infections and amputations to ED today BIBA with high blood sugar after not taking meds for several days because she left her insulin at her camps[place] and was staying with friends states her body aches and her toes hurt NV and abd pain typical of her DKA states she fell and hit her head and has a YOUNG and does not know if she had LOC Review of Systems Constitutional: reports: Myalgias. denies: Fever, Chills Ears: denies: Drainage/discharge Nose: denies: Epistaxis Cardiac: denies: Chest pain / pressure Respiratory: denies: Dyspnea GI: reports: Abdominal Pain, Nausea, Vomiting. denies: Diarrhea : denies: Now EGA Skin: reports: Other (toes). denies: Rash Musculoskeletal: reports: Other (toes are all cold to touch though cap refill < 2 sec, several prior amputations, specifically her R 3rd toe today looks nectrotic) Neurologic: reports: Generalized weakness, Headache, Head injury. 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 08/05/17 08/13/17 Cilostazol [Pletal] 100 mg PO BID #60 tablet 08/05/17 08/13/17 DULoxetine [Cymbalta] 60 mg PO DAILY #30 capsule 08/05/17 08/13/17 Gabapentin [Neurontin] 900 mg PO TID #90 capsule 08/05/17 08/13/17 Ibuprofen [Motrin] 600 mg PO Q6HR PRN #60 tablet 08/05/17 08/13/17 Insulin Aspart [Novolog Flexpen] 25 unit SUBQ ACHS #5 each 08/05/17 08/13/17 Insulin Glargine [Lantus Solostar] 70 unit SUBQ DAILY #10 pen 08/05/17 08/13/17 LORazepam [Ativan] 1 mg PO QPM PRN #7 tablet 08/05/17 08/13/17 Metoprolol Succinate [Toprol Xl] 25 mg PO BID #60 tablet 08/05/17 08/13/17 Oxybutynin [Ditropan] 5 mg PO BID #60 tablet 08/05/17 08/13/17 cloNIDine [Catapres] 0.1 mg PO BID #60 tablet 08/05/17 08/13/17 diltiaZEM CD [Cardizem Cd] 120 mg PO DAILY #30 capsule 08/05/17 08/13/17 traMADol [Ultram] 50 mg PO Q6H PRN #10 tablet 08/05/17 08/13/17 - Allergies Allergies/Adverse Reactions: Allergies Allergy/AdvReac Type Severity Reaction Status Date / Time codeine Allergy Hives Verified 08/01/17 17:52 hydrocodone Allergy Hives Verified 08/01/17 17:52 morphine Allergy Itching Verified 08/01/17 17:52 milk AdvReac Cramps Verified 08/01/17 17:52 nitrofurantoin AdvReac Headache Verified 08/01/17 17:52 [From Macrobid] PAPER TAPE AdvReac Unknown Uncoded 08/01/17 17:52 - Social History Does the pt smoke?: Yes Smoking Status: Current every day smoker Does the pt drink ETOH?: No Does the pt have substance abuse?: Yes - Immunizations Immunizations are current?: Yes - POLST Patient has POLST: No POLST Status: Full Code PD ED PE NORMAL - Vitals Vital signs reviewed: Yes - General General: Alert and oriented X 3 - HEENT HEENT: Atraumatic, PERRL. No: Moist mucous membranes (dry) - Neck Neck: No bony TTP - Cardiac Cardiac: RRR (tachy) - Respiratory Respiratory: No respiratory distress, Clear bilaterally - Abdomen Abdomen: Other (diffuse mod TTP s focal peritoneal signs) - Back Back: No spinal TTP - Derm Derm: Other (numerous skins sores, hx meth use) - Extremities Extremities: Other (all toes cool but cap refill < 2 sec, numerous prior amputations, R 3rd toe appears necrotic) - Neuro Neuro: Alert and oriented X 3, No motor deficit Eye Opening: Spontaneous Motor: Obeys Commands Verbal: Oriented GCS Score: 15 Results - Vitals Vitals: Vital Signs - 24 hr 08/13/17 08/13/17 09:07 10:55 Temperature 36.0 C L Heart Rate 123 H 124 H Respiratory 20 22 Rate Blood Pressure 114/53 L 129/69 O2 Saturation 100 Oxygen O2 Source [Without Activity] Room air O2 Source Room air - Labs Labs: Laboratory Tests 08/13/17 08/13/17 08/13/17 10:45 10:45 10:45 WBC 20.4 H RBC 4.77 Hgb 12.0 Hct 45.3 MCV 95.0 MCH 25.1 L MCHC 26.5 L RDW 17.9 H Plt Count 673 H MPV 9.0 Neut # (Auto) Not Reportable Lymph # (Auto) Not Reportable [place] # (Auto) Not Reportable Eos # (Auto) Not Reportable Baso # (Auto) Not Reportable Absolute Nucleated RBC Not Reportable Total Counted 100 Band Neuts % (Manual) 4 Abnorm Lymph % (Manual) 0 Metamyelocytes % 1 H Nucleated RBC % Not Reportable Neutrophils # (Manual) 16.7 H Lymphocytes # (Manual) 2.4 Monocytes # (Manual) 1.0 Eosinophils # (Manual) 0.0 Basophils # (Manual) 0.0 Differential Comment MANUAL DIFFERENTIAL Manual Slide Review Indicated RBC Morph Micro Appear 1+ POLYCHROMASIA PT 10.6 INR 0.9 APTT 30.1 VBG pH VBG pCO2 VBG pO2 VBG HCO3 VBG Total CO2 VBG O2 Saturation VBG Base Excess Sodium 111 L* Potassium 6.3 H* Chloride 60 L* Carbon Dioxide < 6 L* Anion Gap 45.0 H BUN 53 H Creatinine 1.9 H Estimated GFR (MDRD) 30 L Glucose 1362 H* Lactic Acid Calcium 11.3 H Total Bilirubin 2.7 H AST 28 ALT 78 H Alkaline Phosphatase 247 H Total Protein 8.0 Albumin 4.0 Globulin 4.0 Albumin/Globulin Ratio 1.0 Lipase 40 Serum HCG, Qual Serum Ketones LARGE H 08/13/17 08/13/17 08/13/17 10:45 10:45 11:10 WBC RBC Hgb Hct MCV MCH MCHC RDW Plt Count MPV Neut # (Auto) Lymph # (Auto) [place] # (Auto) Eos # (Auto) Baso # (Auto) Absolute Nucleated RBC Total Counted Band Neuts % (Manual) Abnorm Lymph % (Manual) Metamyelocytes % Nucleated RBC % Neutrophils # (Manual) Lymphocytes # (Manual) Monocytes # (Manual) Eosinophils # (Manual) Basophils # (Manual) Differential Comment Manual Slide Review RBC Morph Micro Appear PT INR APTT VBG pH 7.038 L VBG pCO2 17.2 L VBG pO2 98.4 H VBG HCO3 4.5 L VBG Total CO2 5.1 L VBG O2 Saturation 94.0 H VBG Base Excess -24.4 L Sodium Potassium Chloride Carbon Dioxide Anion Gap BUN Creatinine Estimated GFR (MDRD) Glucose Lactic Acid 4.4 H* Calcium Total Bilirubin AST ALT Alkaline Phosphatase Total Protein Albumin Globulin Albumin/Globulin Ratio Lipase Serum HCG, Qual NEGATIVE Serum Ketones - Rads (name of study) CTH Radiology: See rad report (no acute) CTCS Radiology: See rad report (no acute) PD MEDICAL DECISION MAKING - ED course ED course: IV access as usual difficult I placed a 3 inch 16 gauge in her R femoral vein and jose eduardo blood at that time glucose 1300+ Na 111 (likely due to elev glucose, but will slow IVF/asked nurse to just give 1 of the 2 L NS I had ordered and monitor for developing cerebral edema) elev K will correct with IVF and insulin elev WBC and lactate (could be stress could be sepsis as she does have necrotic toe so gave zosyn vanco after blood cx) spoke to hospitalist Dr Mathews who will admit pt vanco zosyn not compatible with the insulin IV - so will tx the life threatening DKA and then address possible infection - d/w Dr Mathews - Critical Care Time(min): 45 Time Includes: Direct patient care, Review records, Reassess patient, Document care, Coordinate care, Medical consult Data interpretation: Labs - Sepsis Event Vital Signs: Vital Signs - 24 hr 08/13/17 08/13/17 09:07 10:55 Temperature 36.0 C L Heart Rate 123 H 124 H Respiratory 20 22 Rate Blood Pressure 114/53 L 129/69 O2 Saturation 100 Oxygen O2 Source [Without Activity] Room air O2 Source Room air Departure - Departure Disposition: [facility] DC/Xfer Clinical Impression: Hyponatremia, Hyperkalemia, Toe necrosis DKA (diabetic ketoacidoses) Qualifiers: Diabetes mellitus type: type 1 Diabetes mellitus complication detail: without coma Qualified Code(s): E10.10 - Type 1 diabetes mellitus with ketoacidosis without coma Leukocytosis Qualifiers: Leukocytosis type: unspecified Qualified Code(s): D72.829 - Elevated white blood cell count, unspecified Discharge Date/Time: 08/13/17 12:50
[2017-08-13] MEDS ORDERED: ACETAMINOPHEN 1,000 MG/100 ML 100 ML IV STA (09:27)
[2017-08-13] MEDS ORDERED: PROMETHAZINE INJ 25 MG in SODIUM CHLORIDE 0.9% 50 ML IV STA (09:28)
[2017-08-13] MEDS ORDERED: PROMETHAZINE 25 MG/1 ML VIAL IM STA (09:49)
[2017-08-13] MEDS ORDERED: HYDROmorphone 2 MG/ML VIAL IM STA (09:49)
[2017-08-13] MEDS ORDERED: INSULIN REGULAR HUMAN 100 UNIT in SODIUM CHLORIDE 0.9% 100ML 99 ML IV STA (10:50)
[2017-08-13] MEDS ORDERED: SODIUM CHLORIDE 0.9% 1,000 ML IV ONE (10:50)
[2017-08-13] MEDS ORDERED: INSULIN REGULAR HUMAN 100 UNIT/1 ML 10 ML MDV IVP STA (10:50)
[2017-08-13 11:04] LABS: BASOPHILS % (AUTO) 0.9 %; LYMPHOCYTES % (AUTO) 11.5 %; MEAN CORPUSCULAR HEMOGLOBIN 25.1 pg (27.0-31.0); MEAN CORPUSCULAR HGB CONC 26.5 g/dL (32.0-36.0); MONOCYTES % (AUTO) 6.1 %; NEUTROPHILS % (AUTO) 81.5 %; PLT - PLATELET COUNT 673 10^3/uL (130-450); RED BLOOD COUNT 4.77 10^6/uL (4.20-5.40); RED CELL DISTRIBUTION WIDTH 17.9 % (12.0-15.0); WHITE BLOOD COUNT 20.4 x10^3/uL (4.8-10.8)
[2017-08-13 11:07] LABS: INR 0.9 (0.8-1.2); PT - PROTHROMBIN TIME 10.6 secs (9.9-12.6)
[2017-08-13 11:09] LABS: KETONES, SERUM (ACETEST) LARGE (NEGATIVE)
[2017-08-13 11:16] LABS: VBG BASE EXCESS -24.4 mmol/L (-2 - +2); VBG PCO2 17.2 mmHg (41-51); VBG PH 7.038 (7.31-7.41); VBG PO2 98.4 mmHg (25-47); VBG TOTAL CO2 5.1 mmol/L (24-29)
[2017-08-13 11:19] LABS: ABNORMAL LYMPHS % (MANUAL) 0 %
[2017-08-13 11:20] LABS: HCG,QUALITATIVE BLOOD NEGATIVE
[2017-08-13 11:21] LABS: BAND NEUTROPHILS % (MANUAL) 4 %; LYMPHOCYTES # (MANUAL) 2.4 10^3/uL (1.5-3.5); LYMPHOCYTES % (MANUAL) 12 %; METAMYELOCYTES % (MANUAL) 1 %; NEUTROPHILS # (MANUAL) 16.7 10^3/uL (1.5-6.6); NEUTROPHILS % (MANUAL) 78 %
[2017-08-13 11:26] LABS: DIFFERENTIAL COMMENT MANUAL DIFFERENTIAL
[2017-08-13 11:28] LABS: ALKALINE PHOSPHATASE 247 IU/L (42-121); ALT ALANINE AMINOTRANSFERASE 78 IU/L (10-60); AST ASPARTATE AMINOTRANSFERASE 28 IU/L (10-42); BILIRUBIN,TOTAL 2.7 mg/dL (0.2-1.0); BUN - BLOOD UREA NITROGEN 53 mg/dL (6-20); CALCIUM 11.3 mg/dL (8.5-10.3); CREATININE 1.9 mg/dL (0.4-1.0); GFR - MDRD 30 (>89); LIPASE 40 U/L (22-51)
[2017-08-13 11:31] LABS: CARBON DIOXIDE - CO2 < 6 mmol/L (21-32); GLUCOSE 1362 mg/dL (70-100)
[2017-08-13] MEDS ORDERED: VANCOMYCIN INJ 1 GM in SODIUM CHLORIDE 0.9% 500 ML IV STA (11:31)
[2017-08-13] MEDS ORDERED: PIPERACILLIN/TAZOBACTAM 3.375 GM in SODIUM CHLORIDE 0.9% MINIBAG 100 ML IV STA (11:31)
[2017-08-13 11:32] LABS: SODIUM 111 mmol/L (135-145)
[2017-08-13] MEDS ORDERED: ONDANSETRON 4 MG/2 ML VIAL IVP PRN (11:32)
[2017-08-13] MEDS ORDERED: PROCHLORPERAZINE 10 MG/2 ML VIAL IVP PRN (11:32)
[2017-08-13] MEDS ORDERED: PROMETHAZINE 25 MG/1 ML VIAL IM PRN (11:32)
[2017-08-13] MEDS ORDERED: ALBUTEROL NEB 2.5 MG/3 ML INH PRN (11:32)
[2017-08-13 11:33] LABS: CHLORIDE 60 mmol/L (101-111)
[2017-08-13] MEDS ORDERED: VANCOMYCIN INJ 1 GM in SODIUM CHLORIDE 0.9% 250 ML IV STA (11:39)
[2017-08-13] MEDS ORDERED: VANCOMYCIN PER PHARMACY 1 GM in SODIUM CHLORIDE 0.9% 250 ML IV STA (11:47)
--- NOTE | 2017-08-13 12:11 | CT Report ---
Procedure Date: 08/13/2017 Accession Number: [id number] / [id number] Procedure: CT - Cervical Spine W/O CPT Code: FULL RESULT: EXAM: CT CERVICAL SPINE WITHOUT CONTRAST DATE: 08/13/2017 11:27 AM. HISTORY: Fell with head injury and altered mental status. COMPARISONS: None. TECHNIQUE: Thin-section axial images were acquired of the cervical spine without contrast. Post-processing: Coronal and sagittal reformats. Other: None. Mild patient motion artifact at C5 level. In accordance with CT protocol optimization, one or more of the following dose reduction techniques were utilized for this exam: automated exposure control, adjustment of mA and/or KV based on patient size, or use of iterative reconstructive technique. FINDINGS: Alignment: No scoliosis or spondylolisthesis. Bones: No fracture or bone lesion. Interspace Levels/Facets: C1-C2: Unremarkable. C2-C3: Unremarkable. C3-C4: Unremarkable. C4-C5: Unremarkable. C5-C6: Unremarkable. C6-C7: Unremarkable. C7-T1: Unremarkable. Musculature: Normal. No fatty atrophy. Other: The paravertebral and prevertebral soft tissues are unremarkable. The lung apices are clear. IMPRESSION: No fracture evident. RADIA
--- NOTE | 2017-08-13 12:12 | CT Report ---
Procedure Date: 08/13/2017 Accession Number: [id number] / [id number] Procedure: CT - Head W/O CPT Code: FULL RESULT: EXAM: CT HEAD EXAM DATE: 08/13/2017 11:27 AM. CLINICAL HISTORY: Fell hit head ? LOC + YOUNG. COMPARISON: None. TECHNIQUE: Multiaxial CT images were obtained from the foramen magnum to the vertex. Reformats: Coronal. IV contrast: None. In accordance with CT protocol optimization, one or more of the following dose reduction techniques were utilized for this exam: automated exposure control, adjustment of mA and/or KV based on patient size, or use of iterative reconstructive technique. FINDINGS: Parenchyma: No intraparenchymal hemorrhage. No evidence of mass, midline shift, or CT findings of infarction. Guidry-white differentiation is distinct. Extraaxial Spaces: Normal for age. No subdural or epidural collections identified. Ventricles: Normal in size and position. Sinuses and Orbits: Imaged paranasal sinuses, orbits, and mastoids show no significant abnormality. Bones: No evidence of fracture or calvarial defect. Other: None. IMPRESSION: Normal head CT. RADIA
[2017-08-13] MEDS ORDERED: VANCOMYCIN INJ 1 GM in SODIUM CHLORIDE 0.9% 250 ML IV SCH (13:00)
[2017-08-13 14:02] LABS: KETONES, SERUM (ACETEST) LARGE (NEGATIVE)
[2017-08-13] MEDS ORDERED: LORazepam 2 MG/ML VIAL IVP STA (14:03)
[2017-08-13 14:06] LABS: MUDS CUTOFF CONCENTRATIONS CUTOFF CONC BELOW:
[2017-08-13 14:13] LABS: BILIRUBIN,URINE NEGATIVE (NEGATIVE); GLUCOSE, URINE (UA) >=1000 mg/dL (NEGATIVE); KETONES,URINE (UA) >=80 mg/dL (NEGATIVE); LEUKOCYTE ESTERASE, URINE NEGATIVE (NEGATIVE); NITRITE,URINE NEGATIVE (NEGATIVE); OCCULT BLOOD,URINE LARGE (NEGATIVE); PH,URINE 5.5 PH (5.0-7.5); PROTEIN,URINE NEGATIVE (NEGATIVE); UROBILINOGEN,URINE 0.2 (NORMAL) E.U./dL (NORMAL)
[2017-08-13 14:14] LABS: CLARITY,URINE HAZY (CLEAR)
[2017-08-13 14:19] LABS: BACTERIA,URINE Few /HPF (None Seen); SQUAMOUS EPITHELIAL CELL,UR FEW Squamous (<= Few)
[2017-08-13 14:21] LABS: BUN - BLOOD UREA NITROGEN 50 mg/dL (6-20); CALCIUM 11.2 mg/dL (8.5-10.3); CREATININE 1.8 mg/dL (0.4-1.0); GFR - MDRD 32 (>89); MAGNESIUM 3.4 mg/dL (1.7-2.8)
[2017-08-13 14:22] LABS: CARBON DIOXIDE - CO2 7 mmol/L (21-32); SODIUM 116 mmol/L (135-145)
[2017-08-13 14:23] LABS: CHLORIDE 69 mmol/L (101-111); GLUCOSE 1067 mg/dL (70-100)
[2017-08-13 14:33] LABS: AMPHETAMINE SCREEN,URINE NEGATIVE (NEGATIVE); BENZODIAZEPINES SCREEN, URINE NEGATIVE (NEGATIVE); COCAINE SCREEN URINE NEGATIVE (NEGATIVE); METHADONE SCREEN, URINE NEGATIVE (NEGATIVE); METHAMPHETAMINES SCREEN, URINE NEGATIVE (NEGATIVE); OPIATE SCREEN, URINE NEGATIVE (NEGATIVE); OXYCODONE SCREEN, URINE NEGATIVE (NEGATIVE); PROPOXYPHENE SCREEN, URINE NEGATIVE (NEGATIVE); TRICYCLIC ANTIDEPRESSANT,URINE NEGATIVE (NEGATIVE)
--- NOTE | 2017-08-13 14:44 | HISTORY & PHYSICAL EXAMINATION ---
Chief Complaint - Chief Complaint Chief Complaint: Dizziness, weakness and vomiting. History of Present Illness - Admitted From Admitted From:: Emergency department - History Obtained From Records Reviewed: Yes History obtained from: Patient Exam Limitations: Patient is lethargic and at times hard to arouse - History of Present Illness HPI Comment/Other: Patient is a 36-year-old female with a past medical history of insulin- dependent diabetes mellitus type 1 with recurrent episodes of DKA secondary to noncompliance, methamphetamine abuse, personality disorder, bipolar, polysubstance abuse, ADHD, hypertension, sinus tachycardia, homelessness, fibromyalgia, chronic pain, osteomyelitis status post multiple toe amputations who presents to the emergency department with a chief complaint of dizziness, weakness and vomiting. The patient states that 3 days ago she went to go visit her children at her stepmother's home. She states that she stayed there for the last 3 days and was without her insulin. She states that she left her insulin in her tent and did not think to go back and get it. She states that she did not expect to be staying at her stepmother's house for so many days. She states that over the last day she has become nauseated and had episodes of vomiting. She states that she has become increasingly weak and dizzy. She states that today she felt very sluggish and had polydipsia and polyuria. She states that she could not check her blood sugar at home because she did not have a glucometer. She states that she does not remember who called an ambulance or how she got to the emergency department. She denies any recent fevers or chills. She denies any cough or dysuria. She denies any diarrhea or abdominal pain. She does state that she hurts all over. Patient denies any headache, blurred vision, runny nose, sore throat, nasal congestion, difficulty swallowing, chest pain, shortness of air, orthopnea, PND , increased lower extremity swelling, abdominal pain, diarrhea, constipation, joint swelling, neck stiffness, hair loss, skin rash, night sweats, changes in her appetite or any recent unintentional weight loss or focal neurologic deficits. On presentation to the emergency department the patient was afebrile she was tachycardic with a heart rate of 123, normotensive and slightly tachypneic but was not in any respiratory distress. The patient did appear very ill and was lethargic. She appeared very dry and smelled ketotic. The patient's initial lab work revealed a pH of 7.03 with a bicarb of 4.5. The patient's initial blood glucose was 1362 with an anion gap of 45 and positive serum ketones. The patient was also found to have a sodium of 111 with a potassium of 6.3 and a creatinine of 1.9. Patient's lactic acid was elevated at 4.4. In the emergency department there was a great deal of difficulty getting an IV placed but finally the emergency room physician was able to get an IV started and the patient was placed on an insulin drip and given several liters of IV fluids. The patient was admitted to the intensive care unit for diabetic ketoacidosis. The patient did state to the emergency room physician that she had fallen and hit her head therefore she did undergo a CT of her head which was negative she also underwent a CT of her cervical spine that was also negative. History - Past Medical History Cardiovascular: reports: Hypertension, High cholesterol, Peripheral Vascular Disease, NE Respiratory: reports: None Neuro: reports: Other Endocrine/Autoimmune: reports: Type 1 diabetes GI: reports: Pancreatitis MATERIALS MGMT TECH: reports: None : reports: None HEENT: reports: None Psych: reports: Depression, Anxiety, Panic attacks Musculoskeletal: reports: Fibromyalgia Derm: reports: None MRSA Hx?: Yes - Past Surgical History General: reports: Cholecystectomy HEENT: reports: Tonsil/Adenoidectomy - Family & Social History Family History: Father: , CAD, CVA/TIA, Hyperlipidemia, Hypertension, NE Social History Notes: The patient is homeless and lives in a tent. 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 The patient has 2 children who live with her stepmother as she has been unable to get her life together enough to be able to help raise them. She has been living on [facility] for the last 4 years prior to that she lived in [place]. She does smoke a few cigarettes a day denies any alcohol use. She does continue to use methamphetamine. - Substance History Use: Uses substance without health or social issues: NONE - POLST Patient has POLST: No POLST Status: Full Code Meds/Allgy - Home Medications Home Medications: Ambulatory Orders Medication Instructions Recorded Confirmed Insulin Aspart [NovoLOG] 12 unit SUBQ TIDWM #3 pen 07/10/17 08/13/17 Amitriptyline [Elavil] 25 mg PO HS #20 tablet 08/05/17 08/13/17 Aspirin [Aspirin EC] 81 mg PO DAILY #30 tablet. 08/05/17 08/13/17 Cilostazol [Pletal] 100 mg PO BID #60 tablet 08/05/17 08/13/17 DULoxetine [Cymbalta] 60 mg PO DAILY #30 capsule 08/05/17 08/13/17 Gabapentin [Neurontin] 900 mg PO TID #90 capsule 08/05/17 08/13/17 Ibuprofen [Motrin] 600 mg PO Q6HR PRN #60 tablet 08/05/17 08/13/17 Insulin Aspart [Novolog Flexpen] 25 unit SUBQ ACHS #5 each 08/05/17 08/13/17 Insulin Glargine [Lantus Solostar] 70 unit SUBQ DAILY #10 pen 08/05/17 08/13/17 LORazepam [Ativan] 1 mg PO QPM PRN #7 tablet 08/05/17 08/13/17 Metoprolol Succinate [Toprol Xl] 25 mg PO BID #60 tablet 08/05/17 08/13/17 Oxybutynin [Ditropan] 5 mg PO BID #60 tablet 08/05/17 08/13/17 cloNIDine [Catapres] 0.1 mg PO BID #60 tablet 08/05/17 08/13/17 diltiaZEM CD [Cardizem Cd] 120 mg PO DAILY #30 capsule 08/05/17 08/13/17 traMADol [Ultram] 50 mg PO Q6H PRN #10 tablet 08/05/17 08/13/17 - Allergies Allergies/Adverse Reactions: Allergies Allergy/AdvReac Type Severity Reaction Status Date / Time codeine Allergy Hives Verified 08/01/17 17:52 hydrocodone Allergy Hives Verified 08/01/17 17:52 morphine Allergy Itching Verified 08/01/17 17:52 milk AdvReac Cramps Verified 08/01/17 17:52 nitrofurantoin AdvReac Headache Verified 08/01/17 17:52 [From Macrobid] PAPER TAPE AdvReac Unknown Uncoded 08/01/17 17:52 Review of Systems - Other Findings Other Findings: A comprehensive review of systems was performed the pertinent positives and negatives are stated above in the HPI and the remainder of the review of systems is negative. Exam - Vital Signs Reviewed Vital Signs: Yes Vital Signs: Vital Signs x48h Pulse Resp BP Pulse Ox 08/13/17 12:36 131 H 18 140/89 H 100 08/13/17 11:51 129 H 18 140/90 H 100 - Physical Exam General Appearance: positive: Mild distress (Ill-appearing), Lethargic Eyes Bilateral: positive: Normal inspection, PERRL, EOMI, No lid inflammation, Conjunctivae nml, No scleral icterus ENT: positive: ENT inspection nml, Pharynx nml, Dry mucous membranes. negative : Purulent nasal drainage, Pharyngeal erythema, Oral lesions Neck: positive: Nml inspection, Thyroid nml, No JVD, Trachea midline. negative : Thyromegaly, Lymphadenopathy (R), Lymphadenopathy (L), Stiff neck, Carotid bruit, Tracheal deviation Respiratory: positive: Chest non-tender, No respiratory distress, Breath sounds nml. negative: Wheezes, Rales, Rhonchi Cardiovascular: positive: No murmur, No gallop, Tachycardia Peripheral Pulses: positive: 2+ Abdomen: positive: Non-tender, No organomegaly, Nml bowel sounds, No distention. negative: Guarding, Rebound, Hepatomegaly Back: positive: Nml inspection. negative: CVA tenderness (R), CVA tenderness (L ) Skin: positive: No rash, Warm, Other (Patients toes do not appear acutely infected). negative: Cyanosis, Diaphoresis, Pallor Extremities: positive: Non-tender, Full ROM, Nml appearance, No pedal edema. negative: Joint swelling Neurologic/Psychiatric: positive: Oriented x3, CN's nml (2-12), Motor nml, Sensation nml Conclusion/Plan - Problem List (1) DKA (diabetic ketoacidoses) Conclusion/Plan: Patient presented with severe DKA. On presentation patient was having weakness , dizziness and vomiting. She also complained of polyuria and polydipsia. Appears the patient is noncompliant with her insulin for the last 3 days. Patient had a pH of 7.0 with a bicarb of 4.5. She also had positive serum ketones and a blood glucose of over 1300. The patient's anion gap was 45. The patient appeared severely dehydrated and was lethargic on presentation. Plan: Admit patient to ICU Place on insulin drip DKA protocol Continue treatment until anion gap is closed and acidosis has resolved then placed on home dose of subcu insulin and sliding scale insulin N.p.o. Check hemoglobin A1c Counseled about compliance to medication Qualifiers: Diabetes mellitus type: type 1 Diabetes mellitus complication detail: without coma Qualified Code(s): E10.10 - Type 1 diabetes mellitus with ketoacidosis without coma (2) High anion gap metabolic acidosis Conclusion/Plan: The patient presents with a high anion gap metabolic acidosis which is severe with a pH of 7.0 and a bicarb of 4.5. Because of the patient's high anion gap metabolic acidosis is her diabetic ketoacidosis as well as a lactic acidosis. The patient appears to have lactic acidosis secondary to severe dehydration from vomiting and hyperglycemia. Plan: Treat DKA IV fluids Monitor acidosis Consider bicarb drip (3) Hyponatremia Conclusion/Plan: On presentation the patient has severe hyponatremia with a sodium of 111. Part of this appears to be a pseudohyponatremia as the patient's blood glucose is 1362 on presentation. The patient's corrected sodium is 131 when taking it to account the glucose. The patient appears to have hypovolemic hyponatremia. Given that the corrected sodium is 131 there is no need to do a slow correction and the patient can be given IV fluids without restriction. Plan: Give IV fluids Monitor sodium (4) HANSA (acute kidney injury) Conclusion/Plan: Patient appears to be dehydrated on presentation and creatinine is up to 1.9 from a baseline of 0.5. Patient has acute kidney injury likely prerenal secondary to dehydration from DKA, vomiting and poor oral intake. Plan: Patient will be given IV fluids Monitor creatinine Avoid nephrotoxic agents (5) Dehydration Conclusion/Plan: Patient is severely dehydrated on presentation as is evident by her elevated lactic acid of 4.4, hyponatremia, hypochloremia and physical exam. Patient is likely severely dehydrated secondary to her DKA and vomiting. Plan: Patient will be given aggressive IV hydration We will treat her DKA Once patient's DKA is resolved she will be allowed to eat and drink. (6) Hyperkalemia Conclusion/Plan: Patient's potassium is elevated on presentation at 6.3. This is likely secondary to her severe acidosis and diabetic ketoacidosis. We will not treat her hyperkalemia as it will likely resolve with treatment of DKA and insulin infusion. Monitor potassium and potassium will likely drop at which point we may need to replace potassium. (7) Methamphetamine abuse Conclusion/Plan: Patient continues to abuse methamphetamine although today her urine tox screen is negative. She was again counseled on need to quit using methamphetamine and get her life back together. (8) Tobacco abuse disorder Conclusion/Plan: Patient continues to smoke a few cigarettes a day. The patient was counseled on need to quit smoking and the adverse effects of smoking. (9) Leukocytosis, unspecified Conclusion/Plan: Patient appears to have a reactive leukocytosis with a WBC of 20.4 this is likely secondary to her severe dehydration and DKA. The patient does not have any fever and does not have any obvious source of infection. The patient's WBC should improve with hydration. If the patient does spike fever or does show some source of infection then we will consider starting antibiotics although antibiotics were ordered in the emergency department they will be discontinued. Qualifiers: Leukocytosis type: other Qualified Code(s): D72.828 - Other elevated white blood cell count - Lab Results Lab results reviewed: Yes Fish Bones: 08/13/17 10:45 08/13/17 14:50 Other Lab Results: Laboratory Results WBC 20.4 x10^3/uL (4.8-10.8) H 08/13/17 10:45 RBC 4.77 10^6/uL (4.20-5.40) 08/13/17 10:45 Hgb 12.0 g/dL (12.0-16.0) 08/13/17 10:45 Hct 45.3 % (37.0-47.0) 08/13/17 10:45 MCV 95.0 fL (81.0-99.0) 08/13/17 10:45 MCH 25.1 pg (27.0-31.0) L 08/13/17 10:45 MCHC 26.5 g/dL (32.0-36.0) L 08/13/17 10:45 RDW 17.9 % (12.0-15.0) H 08/13/17 10:45 Plt Count 673 10^3/uL (130-450) H 08/13/17 10:45 MPV 9.0 fL (7.9-10.8) 08/13/17 10:45 Neut # (Auto) Not Reportable 08/13/17 10:45 Lymph # (Auto) Not Reportable 08/13/17 10:45 [place] # (Auto) Not Reportable 08/13/17 10:45 Eos # (Auto) Not Reportable 08/13/17 10:45 Baso # (Auto) Not Reportable 08/13/17 10:45 Absolute Nucleated RBC Not Reportable 08/13/17 10:45 Total Counted 100 08/13/17 10:45 Band Neuts % (Manual) 4 % (0-10) 08/13/17 10:45 Abnorm Lymph % (Manual) 0 % 08/13/17 10:45 Metamyelocytes % 1 % (-0) H 08/13/17 10:45 Nucleated RBC % Not Reportable 08/13/17 10:45 Neutrophils # (Manual) 16.7 10^3/uL (1.5-6.6) H 08/13/17 10:45 Lymphocytes # (Manual) 2.4 10^3/uL (1.5-3.5) 08/13/17 10:45 Monocytes # (Manual) 1.0 10^3/uL (0.0-1.0) 08/13/17 10:45 Eosinophils # (Manual) 0.0 10^3/uL (0-0.7) 08/13/17 10:45 Basophils # (Manual) 0.0 10^3/uL (0-0.1) 08/13/17 10:45 Differential Comment MANUAL DIFFERENTIAL 08/13/17 10:45 Manual Slide Review Indicated 08/13/17 10:45 RBC Morph Micro Appear 1+ ANISOCYTOSIS (NORMAL) 1+ POLYCHROMASIA (NORMAL) 08/13/17 10:45 RBC Morph Micro Appear 1+ ANISOCYTOSIS (NORMAL) 1+ POLYCHROMASIA (NORMAL) 08/13/17 10:45 PT 10.6 secs (9.9-12.6) 08/13/17 10:45 INR 0.9 (0.8-1.2) 08/13/17 10:45 APTT 30.1 secs (24.9-33.3) 08/13/17 10:45 VBG pH 7.038 (7.31-7.41) L 08/13/17 11:10 VBG pCO2 17.2 mmHg (41-51) L 08/13/17 11:10 VBG pO2 98.4 mmHg (25-47) H 08/13/17 11:10 VBG HCO3 4.5 mmol/L (23-28) L 08/13/17 11:10 VBG Total CO2 5.1 mmol/L (24-29) L 08/13/17 11:10 VBG O2 Saturation 94.0 % (60-80) H 08/13/17 11:10 VBG Base Excess -24.4 mmol/L (-2 - +2) L 08/13/17 11:10 Sodium 122 mmol/L (135-145) L 08/13/17 14:50 Potassium 4.8 mmol/L (3.5-5.0) 08/13/17 14:50 Chloride 78 mmol/L (101-111) L* 08/13/17 14:50 Carbon Dioxide 7 mmol/L (21-32) L* 08/13/17 14:50 Anion Gap 37.0 (6-13) H 08/13/17 14:50 BUN 53 mg/dL (6-20) H 08/13/17 14:50 Creatinine 1.7 mg/dL (0.4-1.0) H 08/13/17 14:50 Estimated GFR (MDRD) 34 (>89) L 08/13/17 14:50 Glucose 882 mg/dL (70-100) H* 08/13/17 14:50 Lactic Acid 2.7 mmol/L (0.5-2.2) H 08/13/17 14:50 Calcium 11.1 mg/dL (8.5-10.3) H 08/13/17 14:50 Magnesium 2.9 mg/dL (1.7-2.8) H 08/13/17 14:50 Total Bilirubin 2.7 mg/dL (0.2-1.0) H 08/13/17 10:45 AST 28 IU/L (10-42) 08/13/17 10:45 ALT 78 IU/L (10-60) H 08/13/17 10:45 Alkaline Phosphatase 247 IU/L (42-121) H 08/13/17 10:45 Total Protein 8.0 g/dL (6.7-8.2) 08/13/17 10:45 Albumin 4.0 g/dL (3.2-5.5) 08/13/17 10:45 Globulin 4.0 g/dL (2.1-4.2) 08/13/17 10:45 Albumin/Globulin Ratio 1.0 (1.0-2.2) 08/13/17 10:45 Lipase 40 U/L (22-51) 08/13/17 10:45 Serum HCG, Qual NEGATIVE 08/13/17 10:45 Urine Color YELLOW 08/13/17 13:30 Urine Clarity HAZY (CLEAR) 08/13/17 13:30 Urine pH 5.5 PH (5.0-7.5) 08/13/17 13:30 Ur Specific [place] 1.015 (1.002-1.030) 08/13/17 13:30 Urine Protein NEGATIVE mg/dL (NEGATIVE) 08/13/17 13:30 Urine Glucose (UA) >=1000 mg/dL (NEGATIVE) H 08/13/17 13:30 Urine Ketones >=80 mg/dL (NEGATIVE) H 08/13/17 13:30 Urine Occult Blood LARGE (NEGATIVE) H 08/13/17 13:30 Urine Nitrite NEGATIVE (NEGATIVE) 08/13/17 13:30 Urine Bilirubin NEGATIVE (NEGATIVE) 08/13/17 13:30 Urine Urobilinogen 0.2 (NORMAL) E.U./dL (NORMAL) 08/13/17 13:30 Ur Leukocyte Esterase NEGATIVE (NEGATIVE) 08/13/17 13:30 Urine RBC 6-10 /HPF (0-5) H 08/13/17 13:30 Urine WBC 0-3 /HPF (0-5) 08/13/17 13:30 Ur Squamous Epith Cells FEW Squamous (<= Few) 08/13/17 13:30 Urine Bacteria Few /HPF (None Seen) 08/13/17 13:30 Ur Microscopic Review INDICATED 08/13/17 13:30 Urine Culture Comments NOT INDICATED 08/13/17 13:30 Urine Opiates Screen NEGATIVE (NEGATIVE) 08/13/17 13:30 Ur Oxycodone Screen NEGATIVE (NEGATIVE) 08/13/17 13:30 Urine Methadone Screen NEGATIVE (NEGATIVE) 08/13/17 13:30 Ur Propoxyphene Screen NEGATIVE (NEGATIVE) 08/13/17 13:30 Ur Barbiturates Screen NEGATIVE (NEGATIVE) 08/13/17 13:30 Ur Tricyclics Screen NEGATIVE (NEGATIVE) 08/13/17 13:30 Ur Phencyclidine Scrn NEGATIVE (NEGATIVE) 08/13/17 13:30 Ur Amphetamine Screen NEGATIVE (NEGATIVE) 08/13/17 13:30 U Methamphetamines Scrn NEGATIVE (NEGATIVE) 08/13/17 13:30 U Benzodiazepines Scrn NEGATIVE (NEGATIVE) 08/13/17 13:30 Urine Cocaine Screen NEGATIVE (NEGATIVE) 08/13/17 13:30 U Cannabinoids Screen NEGATIVE (NEGATIVE) 08/13/17 13:30 Serum Ketones LARGE (NEGATIVE) H 08/13/17 14:50 - Diagnostic Imaging Results Diagnostic Imaging Results: positive: Final report reviewed Diagnostic Imaging Results Comments: CT head Impression: Normal CT head Cervical spine CT Impression: No fracture evident Core Measures - Anticipated LOS I expect patient to be DC'd or transferred within 96 hours.: Yes - DVT/VTE - Prophylaxis VTE/DVT Prophylaxis med ordered at admit?: Yes
[2017-08-13 15:22] LABS: KETONES, SERUM (ACETEST) LARGE (NEGATIVE)
[2017-08-13 15:33] LABS: BUN - BLOOD UREA NITROGEN 53 mg/dL (6-20); CALCIUM 11.1 mg/dL (8.5-10.3); CREATININE 1.7 mg/dL (0.4-1.0); GFR - MDRD 34 (>89); SODIUM 122 mmol/L (135-145)
[2017-08-13 16:15] LABS: MAGNESIUM 2.9 mg/dL (1.7-2.8)
[2017-08-13 16:19] LABS: CARBON DIOXIDE - CO2 7 mmol/L (21-32); CHLORIDE 78 mmol/L (101-111); GLUCOSE 882 mg/dL (70-100)
[2017-08-13] MEDS ORDERED: SODIUM CHLORIDE 0.9% 1,000 ML IV SCH (18:00)
[2017-08-13 18:01] LABS: KETONES, SERUM (ACETEST) LARGE (NEGATIVE)
[2017-08-13 18:03] LABS: GLUCOSE 488 mg/dL (70-100)
[2017-08-13] MEDS: PANTOPRAZOLE 40 MG TABLET PO SCH (18:34)
[2017-08-13] MEDS: SODIUM CHLORIDE FLUSH 0.9% 10 ML SYRINGE IVP SCH ×2 (18:35→22:38)
[2017-08-13 18:49] LABS: ALBUMIN/GLOBULIN RATIO 1.1 (1.0-2.2); ALKALINE PHOSPHATASE 220 IU/L (42-121); ALT ALANINE AMINOTRANSFERASE 71 IU/L (10-60); AST ASPARTATE AMINOTRANSFERASE 30 IU/L (10-42); BUN - BLOOD UREA NITROGEN 52 mg/dL (6-20); CALCIUM 10.7 mg/dL (8.5-10.3); CARBON DIOXIDE - CO2 14 mmol/L (21-32); CHLORIDE 86 mmol/L (101-111); CREATININE 1.6 mg/dL (0.4-1.0); GFR - MDRD 37 (>89); GLUCOSE 444 mg/dL (70-100); SODIUM 129 mmol/L (135-145); TOTAL PROTEIN 7.6 g/dL (6.7-8.2)
[2017-08-13 20:08] LABS: MAGNESIUM 2.6 mg/dL (1.7-2.8); PHOSPHORUS 3.2 mg/dL (2.5-4.6)
[2017-08-13] MEDS: SODIUM CHLORIDE FLUSH 0.9% 10 ML SYRINGE IVP PRN (22:38)
[2017-08-13 23:18] LABS: ALBUMIN 3.5 g/dL (3.2-5.5); ALBUMIN/GLOBULIN RATIO 0.9 (1.0-2.2); ALKALINE PHOSPHATASE 187 IU/L (42-121); ALT ALANINE AMINOTRANSFERASE 66 IU/L (10-60); AST ASPARTATE AMINOTRANSFERASE 27 IU/L (10-42); BILIRUBIN,TOTAL 1.6 mg/dL (0.2-1.0); BUN - BLOOD UREA NITROGEN 52 mg/dL (6-20); CALCIUM 10.8 mg/dL (8.5-10.3); CARBON DIOXIDE - CO2 24 mmol/L (21-32); CHLORIDE 92 mmol/L (101-111); CREATININE 1.4 mg/dL (0.4-1.0); GFR - MDRD 43 (>89); GLUCOSE 178 mg/dL (70-100); SODIUM 132 mmol/L (135-145); TOTAL PROTEIN 7.4 g/dL (6.7-8.2)
[2017-08-14] MEDS: D5.45NS W/20 MEQ KCL 1,000 ML IV SCH ×2 (00:39→08:45)
[2017-08-14] MEDS: SODIUM CHLORIDE FLUSH 0.9% 10 ML SYRINGE IVP SCH ×3 (01:30→17:09)
[2017-08-14] MEDS: ZOLPIDEM 5 MG TABLET PO PRN (01:31)
[2017-08-14 01:55] LABS: ALBUMIN 3.7 g/dL (3.2-5.5); ALKALINE PHOSPHATASE 191 IU/L (42-121); ALT ALANINE AMINOTRANSFERASE 61 IU/L (10-60); AST ASPARTATE AMINOTRANSFERASE 25 IU/L (10-42); BILIRUBIN,TOTAL 0.8 mg/dL (0.2-1.0); BUN - BLOOD UREA NITROGEN 51 mg/dL (6-20); CALCIUM 10.7 mg/dL (8.5-10.3); CARBON DIOXIDE - CO2 28 mmol/L (21-32); CHLORIDE 95 mmol/L (101-111); CREATININE 1.1 mg/dL (0.4-1.0); GFR - MDRD 57 (>89); GLUCOSE 109 mg/dL (70-100); SODIUM 136 mmol/L (135-145); TOTAL PROTEIN 7.5 g/dL (6.7-8.2)
--- NOTE | 2017-08-14 02:07 | PROCEDURE REPORT ---
DATE OF SERVICE: 08/13/2017 Physician: Hector Lozada MD PREOPERATIVE DIAGNOSIS: Lack of intravenous access. POSTPROCEDURE DIAGNOSIS: Lack of intravenous access. PROCEDURE PERFORMED: Placement of left femoral central venous line. DESCRIPTION OF PROCEDURE: Informed consent was obtained from the patient, the patient was placed in the supine position. The patient's left groin was then prepped and draped in the usual sterile fashion. The skin overlying the femoral vein was then injected with local anesthesia. An 18-gauge needle was then inserted through the skin and into the femoral vein. There was return of dark nonpulsatile blood. A guidewire was placed through the needle and the needle was withdrawn. A dilator was placed over the guidewire and removed. A triple lumen catheter was then placed over the guidewire and the guidewire was removed. There was good aspiration of blood through the ports with the ports being flushed easily. The catheter was secured to the skin using 3-0 silk suture. Dry dressing was then applied. There were no immediate complications. TD: 08/13/2017 23:09
[2017-08-14] MEDS ORDERED: INSULIN REGULAR HUMAN 100 UNIT in SODIUM CHLORIDE 0.9% 100ML 99 ML IV SCH (03:00)
[2017-08-14 05:44] LABS: BASOPHILS % (AUTO) 0.1 %; EOSINOPHILS % (AUTO) 0.1 %; HGB - HEMOGLOBIN 11.3 g/dL (12.0-16.0); LYMPHOCYTES # (AUTO) 1.8 10^3/uL (1.5-3.5); LYMPHOCYTES % (AUTO) 13.6 %; MEAN CORPUSCULAR HEMOGLOBIN 25.1 pg (27.0-31.0); MEAN CORPUSCULAR HGB CONC 32.8 g/dL (32.0-36.0); MEAN CORPUSCULAR VOLUME 76.5 fL (81.0-99.0); MEAN PLATELET VOLUME 7.2 fL (7.9-10.8); MONOCYTES # (AUTO) 1.2 10^3/uL (0.0-1.0); MONOCYTES % (AUTO) 9.3 %; NEUTROPHILS # (AUTO) 10.3 10^3/uL (1.5-6.6); NEUTROPHILS % (AUTO) 76.9 %; PLT - PLATELET COUNT 487 10^3/uL (130-450); RED BLOOD COUNT 4.51 10^6/uL (4.20-5.40); RED CELL DISTRIBUTION WIDTH 18.3 % (12.0-15.0); WHITE BLOOD COUNT 13.4 x10^3/uL (4.8-10.8)
[2017-08-14 05:56] LABS: ALBUMIN 3.4 g/dL (3.2-5.5); ALBUMIN/GLOBULIN RATIO 1.1 (1.0-2.2); BILIRUBIN,TOTAL 1.1 mg/dL (0.2-1.0); CALCIUM 9.8 mg/dL (8.5-10.3); PHOSPHORUS 3.1 mg/dL (2.5-4.6); TOTAL PROTEIN 6.6 g/dL (6.7-8.2)
[2017-08-14] MEDS: PANTOPRAZOLE 40 MG TABLET PO SCH ×2 (06:16→15:40)
[2017-08-14 06:28] LABS: HB2 TOTAL 12.2 g/dL; HEMOGLOBIN A1C 1.44 g/dL; HEMOGLOBIN A1C % 12.9 % (4.6-6.2)
[2017-08-14] MEDS: ENOXAPARIN 40 MG/0.4 ML SYRINGE SUBQ SCH (09:22)
[2017-08-14] MEDS: ACETAMINOPHEN 325 MG TABLET PO PRN (11:33)
[2017-08-14 11:44] LABS: ALBUMIN 3.1 g/dL (3.2-5.5); ALKALINE PHOSPHATASE 141 IU/L (42-121); ALT ALANINE AMINOTRANSFERASE 49 IU/L (10-60); AST ASPARTATE AMINOTRANSFERASE 23 IU/L (10-42); BUN - BLOOD UREA NITROGEN 30 mg/dL (6-20); CALCIUM 8.7 mg/dL (8.5-10.3); CARBON DIOXIDE - CO2 24 mmol/L (21-32); CHLORIDE 93 mmol/L (101-111); CREATININE 0.7 mg/dL (0.4-1.0); GFR - MDRD 95 (>89); GLUCOSE 163 mg/dL (70-100); SODIUM 130 mmol/L (135-145); TOTAL PROTEIN 6.3 g/dL (6.7-8.2)
[2017-08-14] MEDS ORDERED: LORazepam 0.5 MG TABLET PO PRN (12:09)
[2017-08-14] MEDS: SODIUM CHLORIDE 0.9% 1,000 ML IV SCH ×2 (12:30→20:33)
[2017-08-14] MEDS: INSULIN GLARGINE 300 UNIT/3 ML PEN SUBQ SCH (12:57)
--- NOTE | 2017-08-14 15:27 | PROVIDER PROGRESS NOTE ---
Assessment/Plan - Problem List (1) DKA (diabetic ketoacidoses) Qualifiers: Diabetes mellitus type: type 1 Diabetes mellitus complication detail: without coma Qualified Code(s): E10.10 - Type 1 diabetes mellitus with ketoacidosis without coma Assessment/Plan: \ Anion gap closed this afternoon Stop insulin drip Start SubQ insulin 70 units Start Novolog with meals Diabetic diet Stop D5 NS Monitor BG ACHS HbA1 12.9 Patient counselled about non compliance Qualifiers: Diabetes mellitus type: type 1 Diabetes mellitus complication detail: without coma Qualified Code(s): E10.10 - Type 1 diabetes mellitus with ketoacidosis without coma (2) High anion gap metabolic acidosis Conclusion/Plan: Secondary to DKA Resolved (3) Hyponatremia Conclusion/Plan: On presentation the patient has severe hyponatremia with a sodium of 111. Part of this appears to be a pseudohyponatremia as the patient's blood glucose is 1362 on presentation. The patient's corrected sodium is 131 when taking it to account the glucose. The patient appears to have hypovolemic hyponatremia. Given that the corrected sodium is 131 there is no need to do a slow correction. 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 Patient is likely severely dehydrated secondary to her DKA and vomiting. Improving Lactic acid down to 1.8 and staffing associate improved to normal Continue IVFs (6) Hyperkalemia Conclusion/Plan: Patient's potassium is elevated on presentation at 6.3. This is likely secondary to her severe acidosis and diabetic ketoacidosis. Improved as K is down to 4.0 today (7) Methamphetamine abuse Conclusion/Plan: Patient continues to abuse methamphetamine although today her urine tox screen is negative. She was again counseled on need to quit using methamphetamine and get her life back together. (8) Tobacco abuse disorder Conclusion/Plan: Patient continues to smoke a few cigarettes a day. The patient was counseled on need to quit smoking and the adverse effects of smoking. (9) Leukocytosis, unspecified Conclusion/Plan: WBC improved from 20.4 to 13.4 with IVFs Patient has not spiked fever and does not have any obvious source of infection therefore no abx Will continue IVFs Monitor WBC Improving Qualifiers: Leukocytosis type: other Qualified Code(s): D72.828 - Other elevated white blood cell count - Current Meds Current Meds: Current Medications Generic Name Dose Route Start Last Admin Trade Name Freq PRN Reason Stop Dose Admin Acetaminophen 650 mg 08/13/17 11:32 08/14/17 11:33 Tylenol PO 650 mg Q4HR PRN Administration Pain 1 to 4 Enoxaparin Sodium 40 mg 08/14/17 09:00 08/14/17 09:22 Lovenox SUBQ 40 mg DAILY SYLVIA Administration Sodium Chloride 1,000 mls @ 125 mls/hr 08/14/17 13:00 08/14/17 14:00 Normal Saline 0.9% IV 125 mls/hr .Q8H SYLVIA Infusion Insulin Glargine 70 unit 08/14/17 13:00 08/14/17 12:57 Lantus Solostar SUBQ 70 unit DAILY SYLVIA Administration Ondansetron HCl 4 mg 08/13/17 11:32 08/14/17 11:20 Zofran Inj IVP 4 mg Q6HR PRN Administration Nausea / Vomiting Pantoprazole Sodium 40 mg 08/13/17 16:00 08/14/17 06:16 Protonix PO 40 mg BIDAC SYLVIA Administration Prochlorperazine Edisylate 10 mg 08/13/17 11:32 08/14/17 12:58 Compazine Inj IVP 10 mg Q6HR PRN Administration Nausea / Vomiting Sodium Chloride 10 ml 08/13/17 17:00 08/14/17 09:23 Normal Saline Flush 0.9% IVP 10 ml 0100,0900,1700 SYLVIA Administration Sodium Chloride 10 ml 08/13/17 11:32 08/13/17 22:38 Normal Saline Flush 0.9% IVP 20 ml PRN PRN Administration NEEDED PER PROVIDER ORDERS Zolpidem Tartrate 5 mg 08/13/17 11:32 08/14/17 01:31 Ambien PO 5 mg QPM PRN Administration Insomnia - Lab Result Lab results reviewed: Yes Fish Bone Diagrams: 08/14/17 05:20 08/14/17 11:15 - Additional Planning Condition/Complexity: Guarded My Orders: My Active Orders 08/13/17 22:56 Vital Signs [RC] Q4H 08/14/17 12:09 LORazepam [Ativan] 1 mg PO QPM PRN 08/14/17 12:14 Blood Glucose Checks - Eating [RC] 0800,1200,1700,2100 Initiate Hypoglycemia Protocol [RC] .protocol 08/14/17 13:00 Insulin Glargine [Lantus Solostar] 70 unit SUBQ DAILY Sodium Chloride 0.9% [Normal Saline 0.9%] 1,000 ml IV 125 mls/hr 08/14/17 14:00 Gabapentin [Neurontin] 900 mg PO TID 08/14/17 17:00 Insulin Aspart [NovoLOG] 1 - 9 unit SUBQ 0800,1200,1700,2100 Insulin Aspart [NovoLOG] 12 unit SUBQ TIDWM 08/14/17 21:00 Amitriptyline [Elavil] 25 mg PO HS Cilostazol [Pletal] 100 mg PO BID Metoprolol Succinate [Toprol Xl] 25 mg PO BID Oxybutynin [Ditropan] 5 mg PO BID cloNIDine [Catapres] 0.1 mg PO BID 08/14/17 Dinner DIET [Carb-controlled Diet] [DIET] 08/15/17 05:00 CBC - COMP BLD CT W/AUTO DIFF [HEME] DAILYLAB MAGNESIUM [CHEM] DAILYLAB PHOSPHORUS [CHEM] DAILYLAB 08/15/17 09:00 Aspirin EC [Ecotrin] 81 mg PO DAILY DULoxetine [Cymbalta] 60 mg PO DAILY diltiaZEM CD [Cardizem Cd] 120 mg PO DAILY 08/16/17 05:00 CBC - COMP BLD CT W/AUTO DIFF [HEME] DAILYLAB MAGNESIUM [CHEM] DAILYLAB PHOSPHORUS [CHEM] DAILYLAB 08/17/17 05:00 CBC - COMP BLD CT W/AUTO DIFF [HEME] DAILYLAB MAGNESIUM [CHEM] DAILYLAB PHOSPHORUS [CHEM] DAILYLAB 08/18/17 05:00 CBC - COMP BLD CT W/AUTO DIFF [HEME] DAILYLAB MAGNESIUM [CHEM] DAILYLAB PHOSPHORUS [CHEM] DAILYLAB 08/19/17 05:00 CBC - COMP BLD CT W/AUTO DIFF [HEME] DAILYLAB MAGNESIUM [CHEM] DAILYLAB PHOSPHORUS [CHEM] DAILYLAB Plan Discussed with:: Patient Time Spent: 31-60 minutes Subjective - Subjective Patient Reports: Other (Still drowsy. She does not have much to say and does not want to be disturbed. Would like to rest. She does not have any complaints except that she wants to eat and drink.) Nursing Reports: No Complaints Objective Vital Signs: Vital Signs - 24 hr 08/13/17 08/13/17 08/13/17 15:30 16:00 16:30 Temperature 36.6 C Heart Rate [ 129 H 134 H 133 H Monitoring electrodes] Respiratory 20 19 20 Rate Blood Pressure 125/84 H 122/77 118/64 [Right Brachial artery] O2 Saturation 100 100 99 08/13/17 08/13/17 08/13/17 17:00 17:30 18:00 Temperature Heart Rate [ 128 H 130 H 113 H Monitoring electrodes] Respiratory 22 20 18 Rate Blood Pressure 121/74 129/67 124/77 [Right Brachial artery] O2 Saturation 99 98 99 08/13/17 08/13/17 08/13/17 18:30 19:00 19:30 Temperature Heart Rate [ 140 H 133 H 138 H Monitoring electrodes] Respiratory 20 20 22 Rate Blood Pressure 126/75 115/70 126/76 [Right Brachial artery] O2 Saturation 100 100 100 08/13/17 08/13/17 08/13/17 20:10 20:30 21:00 Temperature Heart Rate [ 136 H 142 H 142 H Monitoring electrodes] Respiratory 23 25 H 25 H Rate Blood Pressure 143/85 H 145/84 H 115/73 [Right Brachial artery] O2 Saturation 99 98 97 08/13/17 08/13/17 08/14/17 21:30 23:00 00:00 Temperature Heart Rate [ 144 H 141 H 140 H Monitoring electrodes] Respiratory 26 H 24 25 H Rate Blood Pressure 153/80 H 149/83 H 141/86 H [Right Brachial artery] O2 Saturation 98 96 96 08/14/17 08/14/17 08/14/17 01:00 02:00 03:00 Temperature Heart Rate [ 137 H 129 H 138 H Monitoring electrodes] Respiratory 22 27 H 21 Rate Blood Pressure 134/83 H 157/108 H 157/86 H [Right Brachial artery] O2 Saturation 95 100 96 08/14/17 08/14/17 08/14/17 04:00 05:44 06:00 Temperature Heart Rate [ 130 H 129 H 133 H Monitoring electrodes] Respiratory 19 22 21 Rate Blood Pressure 136/93 H 159/109 H 157/106 H [Right Brachial artery] O2 Saturation 96 97 97 08/14/17 08/14/17 08/14/17 07:00 08:00 09:00 Temperature Heart Rate [ 133 H 123 H 117 H Monitoring electrodes] Respiratory 21 14 15 Rate Blood Pressure 154/102 H 151/111 H 153/97 H [Right Brachial artery] O2 Saturation 99 98 98 08/14/17 08/14/17 10:00 14:00 Temperature Heart Rate [ 125 H 116 H Monitoring electrodes] Respiratory 18 16 Rate Blood Pressure 152/98 H 154/98 H [Right Brachial artery] O2 Saturation 99 98 Oxygen O2 Source Room air I&O (Last 24 Hrs): Intake and Output Totals x24h 08/12/17 08/13/17 08/14/17 23:59 23:59 23:59 Intake Total 1250 3397.70 Output Total 650 1 Balance 600 3396.70 General: Oriented x3, Other (lethargic, very flushed appearing, appears older than stated age) HEENT: Atraumatic, PERRLA, EOMI, Other (Dry mucus membranes) Neck: Supple, No thyromegaly, +2 carotid pulse wo bruit, No LAD Lymphatic: no adenopathy Neuro: Non Focal, CN 2-12 Grossly Intact, Oriented Times 3 Cardiovascular: No murmurs, Other (Tachycardic) Respiratory: Chest non-tender, No respiratory distress, Breath sounds nml Abdomen: Normal bowel sounds, Soft, No tenderness, No hepatospenomegaly Extremities: No clubbing, No cyanosis, No edema, Normal pulses, Other ( Amputation sites on toes do not appear infected) Skin: No rashes, No breakdown Comments/Notes: Yeast infection - Results Results: Laboratory Results WBC 13.4 x10^3/uL (4.8-10.8) H 08/14/17 05:20 RBC 4.51 10^6/uL (4.20-5.40) 08/14/17 05:20 Hgb 11.3 g/dL (12.0-16.0) L 08/14/17 05:20 Hct 34.6 % (37.0-47.0) L 08/14/17 05:20 MCV 76.5 fL (81.0-99.0) L 08/14/17 05:20 MCH 25.1 pg (27.0-31.0) L 08/14/17 05:20 MCHC 32.8 g/dL (32.0-36.0) 08/14/17 05:20 RDW 18.3 % (12.0-15.0) H 08/14/17 05:20 Plt Count 487 10^3/uL (130-450) H 08/14/17 05:20 MPV 7.2 fL (7.9-10.8) L 08/14/17 05:20 Neut # (Auto) 10.3 10^3/uL (1.5-6.6) H 08/14/17 05:20 Lymph # (Auto) 1.8 10^3/uL (1.5-3.5) 08/14/17 05:20 [place] # (Auto) 1.2 10^3/uL (0.0-1.0) H 08/14/17 05:20 Eos # (Auto) 0.0 10^3/uL (0.0-0.7) 08/14/17 05:20 Baso # (Auto) 0.0 10^3/uL (0.0-0.1) 08/14/17 05:20 Absolute Nucleated RBC 0.00 x10^3/uL 08/14/17 05:20 Total Counted 100 08/13/17 10:45 Band Neuts % (Manual) 4 % (0-10) 08/13/17 10:45 Abnorm Lymph % (Manual) 0 % 08/13/17 10:45 Metamyelocytes % 1 % (-0) H 08/13/17 10:45 Nucleated RBC % 0.0 /100WBC 08/14/17 05:20 Neutrophils # (Manual) 16.7 10^3/uL (1.5-6.6) H 08/13/17 10:45 Lymphocytes # (Manual) 2.4 10^3/uL (1.5-3.5) 08/13/17 10:45 Monocytes # (Manual) 1.0 10^3/uL (0.0-1.0) 08/13/17 10:45 Eosinophils # (Manual) 0.0 10^3/uL (0-0.7) 08/13/17 10:45 Basophils # (Manual) 0.0 10^3/uL (0-0.1) 08/13/17 10:45 Differential Comment MANUAL DIFFERENTIAL 08/13/17 10:45 Manual Slide Review Indicated 08/13/17 10:45 RBC Morph Micro Appear 1+ ANISOCYTOSIS (NORMAL) 1+ POLYCHROMASIA (NORMAL) 08/13/17 10:45 RBC Morph Micro Appear 1+ ANISOCYTOSIS (NORMAL) 1+ POLYCHROMASIA (NORMAL) 08/13/17 10:45 PT 10.6 secs (9.9-12.6) 08/13/17 10:45 INR 0.9 (0.8-1.2) 08/13/17 10:45 APTT 30.1 secs (24.9-33.3) 08/13/17 10:45 VBG pH 7.038 (7.31-7.41) L 08/13/17 11:10 VBG pCO2 17.2 mmHg (41-51) L 08/13/17 11:10 VBG pO2 98.4 mmHg (25-47) H 08/13/17 11:10 VBG HCO3 4.5 mmol/L (23-28) L 08/13/17 11:10 VBG Total CO2 5.1 mmol/L (24-29) L 08/13/17 11:10 VBG O2 Saturation 94.0 % (60-80) H 08/13/17 11:10 VBG Base Excess -24.4 mmol/L (-2 - +2) L 08/13/17 11:10 Sodium 130 mmol/L (135-145) L 08/14/17 11:15 Potassium 4.0 mmol/L (3.5-5.0) 08/14/17 11:15 Chloride 93 mmol/L (101-111) L 08/14/17 11:15 Carbon Dioxide 24 mmol/L (21-32) 08/14/17 11:15 Anion Gap 13.0 (6-13) 08/14/17 11:15 BUN 30 mg/dL (6-20) H 08/14/17 11:15 Creatinine 0.7 mg/dL (0.4-1.0) 08/14/17 11:15 Estimated GFR (MDRD) 95 (>89) 08/14/17 11:15 Glucose 163 mg/dL (70-100) H 08/14/17 11:15 Glycated Hemoglobin 12.9 % (4.6-6.2) H 08/14/17 05:20 Estim Average Glucose 324 (70-100) H 08/14/17 05:20 Lactic Acid 1.8 mmol/L (0.5-2.2) 08/13/17 18:30 Calcium 8.7 mg/dL (8.5-10.3) 08/14/17 11:15 Ionized Calcium NO 08/14/17 11:15 Phosphorus 3.1 mg/dL (2.5-4.6) 08/14/17 05:20 Magnesium 2.0 mg/dL (1.7-2.8) 08/14/17 05:20 Total Bilirubin 1.0 mg/dL (0.2-1.0) 08/14/17 11:15 AST 23 IU/L (10-42) 08/14/17 11:15 ALT 49 IU/L (10-60) 08/14/17 11:15 Alkaline Phosphatase 141 IU/L (42-121) H 08/14/17 11:15 Troponin I < 0.04 ng/mL (<0.49) 08/13/17 22:44 Total Protein 6.3 g/dL (6.7-8.2) L 08/14/17 11:15 Albumin 3.1 g/dL (3.2-5.5) L 08/14/17 11:15 Globulin 3.2 g/dL (2.1-4.2) 08/14/17 11:15 Albumin/Globulin Ratio 1.0 (1.0-2.2) 08/14/17 11:15 Lipase 40 U/L (22-51) 08/13/17 10:45 Serum HCG, Qual NEGATIVE 08/13/17 10:45 Urine Color YELLOW 08/13/17 13:30 Urine Clarity HAZY (CLEAR) 08/13/17 13:30 Urine pH 5.5 PH (5.0-7.5) 08/13/17 13:30 Ur Specific [place] 1.015 (1.002-1.030) 08/13/17 13:30 Urine Protein NEGATIVE mg/dL (NEGATIVE) 08/13/17 13:30 Urine Glucose (UA) >=1000 mg/dL (NEGATIVE) H 08/13/17 13:30 Urine Ketones >=80 mg/dL (NEGATIVE) H 08/13/17 13:30 Urine Occult Blood LARGE (NEGATIVE) H 08/13/17 13:30 Urine Nitrite NEGATIVE (NEGATIVE) 08/13/17 13:30 Urine Bilirubin NEGATIVE (NEGATIVE) 08/13/17 13:30 Urine Urobilinogen 0.2 (NORMAL) E.U./dL (NORMAL) 08/13/17 13:30 Ur Leukocyte Esterase NEGATIVE (NEGATIVE) 08/13/17 13:30 Urine RBC 6-10 /HPF (0-5) H 08/13/17 13:30 Urine WBC 0-3 /HPF (0-5) 08/13/17 13:30 Ur Squamous Epith Cells FEW Squamous (<= Few) 08/13/17 13:30 Urine Bacteria Few /HPF (None Seen) 08/13/17 13:30 Ur Microscopic Review INDICATED 08/13/17 13:30 Urine Culture Comments NOT INDICATED 08/13/17 13:30 Urine Opiates Screen NEGATIVE (NEGATIVE) 08/13/17 13:30 Ur Oxycodone Screen NEGATIVE (NEGATIVE) 08/13/17 13:30 Urine Methadone Screen NEGATIVE (NEGATIVE) 08/13/17 13:30 Ur Propoxyphene Screen NEGATIVE (NEGATIVE) 08/13/17 13:30 Ur Barbiturates Screen NEGATIVE (NEGATIVE) 08/13/17 13:30 Ur Tricyclics Screen NEGATIVE (NEGATIVE) 08/13/17 13:30 Ur Phencyclidine Scrn NEGATIVE (NEGATIVE) 08/13/17 13:30 Ur Amphetamine Screen NEGATIVE (NEGATIVE) 08/13/17 13:30 U Methamphetamines Scrn NEGATIVE (NEGATIVE) 08/13/17 13:30 U Benzodiazepines Scrn NEGATIVE (NEGATIVE) 08/13/17 13:30 Urine Cocaine Screen NEGATIVE (NEGATIVE) 08/13/17 13:30 U Cannabinoids Screen NEGATIVE (NEGATIVE) 08/13/17 13:30 Serum Ketones LARGE (NEGATIVE) H 08/13/17 17:42 - Procedures Procedures: Procedures DETACHMENT AT LEFT 4TH TOE, LOW, OPEN APPROACH (06/30/17) DETACHMENT AT RIGHT 1ST TOE, LOW, OPEN APPROACH (03/14/17) DETACHMENT AT RIGHT 2ND TOE, HIGH, OPEN APPROACH (06/30/17) DETACHMENT AT RIGHT 4TH TOE, HIGH, OPEN APPROACH (06/30/17) INSERT INFUSION DEV IN R INT JUGULAR VEIN, PERC (04/21/16) INSERTION OF INFUSION DEV INTO R SUBCLAV VEIN, PERC APPROACH (03/14/17) INSERTION OF INFUSION DEV INTO SUP VENA CAVA, PERC APPROACH (06/30/17) INSERTION OF INFUSION DEVICE INTO R ATRIUM, PERC APPROACH (12/04/15) TRANSFUSE NONAUT RED BLOOD CELLS IN PERIPH VEIN, PERC (01/22/17) ULTRASONOGRAPHY OF RIGHT JUGULAR VEINS, GUIDANCE (04/21/16) ABX Reporting Has patient been on IV antibiotics over the past 48 hours?: No Current Medications - Current Medications Current Medications: Active Medications Acetaminophen (Tylenol) 650 mg PO Q4HR PRN PRN Reason: Pain 1 to 4 Last Admin: 08/14/17 11:33 Dose: 650 mg Albuterol () 2.5 mg INH Q4HR PRN PRN Reason: Wheezing Amitriptyline HCl (Elavil) 25 mg PO HS [facility] Aspirin (Ecotrin) 81 mg PO DAILY [facility] Cilostazol (Pletal) 100 mg PO BID SYLVIA Clonidine HCl (Catapres) 0.1 mg PO BID SYLVIA Diltiazem HCl (Cardizem Cd) 120 mg PO DAILY SYLVIA Duloxetine HCl (Cymbalta) 60 mg PO DAILY [facility] Enoxaparin Sodium (Lovenox) 40 mg SUBQ DAILY [facility] Last Admin: 08/14/17 09:22 Dose: 40 mg Gabapentin (Neurontin) 900 mg PO TID [facility] Sodium Chloride (Normal Saline 0.9%) 1,000 mls @ 125 mls/hr IV .Q8H [facility] Last Infusion: 08/14/17 14:00 Dose: 125 mls/hr Insulin Aspart (Novolog) 12 unit SUBQ TIDWM [facility] Insulin Aspart (Novolog) 1 - 9 unit SUBQ 0800,1200,1700,2100 SYLVIA PRN Reason: Protocol Insulin Glargine (Lantus Solostar) 70 unit SUBQ DAILY [facility] Last Admin: 08/14/17 12:57 Dose: 70 unit Lorazepam (Ativan) 1 mg PO QPM PRN PRN Reason: Insomnia Metoprolol Succinate (Toprol Xl) 25 mg PO BID [facility] Ondansetron HCl (Zofran Inj) 4 mg IVP Q6HR PRN PRN Reason: Nausea / Vomiting Last Admin: 08/14/17 11:20 Dose: 4 mg Oxybutynin Chloride (Ditropan) 5 mg PO BID SYLVIA Pantoprazole Sodium (Protonix) 40 mg PO BIDAC SYLVIA Last Admin: 08/14/17 06:16 Dose: 40 mg Prochlorperazine Edisylate (Compazine Inj) 10 mg IVP Q6HR PRN PRN Reason: Nausea / Vomiting Last Admin: 08/14/17 12:58 Dose: 10 mg Promethazine HCl (Phenergan Inj) 25 mg IM Q6HR PRN PRN Reason: Nausea / Vomiting Sodium Chloride (Normal Saline Flush 0.9%) 10 ml IVP 0100,0900,1700 SYLVIA Last Admin: 08/14/17 09:23 Dose: 10 ml Sodium Chloride (Normal Saline Flush 0.9%) 10 ml IVP PRN PRN PRN Reason: NEEDED PER PROVIDER ORDERS Last Admin: 08/13/17 22:38 Dose: 20 ml Zolpidem Tartrate (Ambien) 5 mg PO QPM PRN PRN Reason: Insomnia Last Admin: 08/14/17 01:31 Dose: 5 mg
[2017-08-14] MEDS: GABAPENTIN 300 MG CAPSULE PO SCH ×2 (15:40→23:36)
[2017-08-14] MEDS ORDERED: INSULIN ASPART 300 UNIT/3 ML PEN SUBQ SCH (17:00)
[2017-08-14] MEDS: INSULIN ASPART 300 UNIT/3 ML PEN SUBQ SCH (17:08)
[2017-08-14] MEDS: OXYBUTYNIN 5MG TABLET PO SCH (21:35)
[2017-08-14] MEDS: CILOSTAZOL 100 MG TABLET PO SCH (21:35)
[2017-08-14] MEDS: AMITRIPTYLINE 25 MG TABLET PO SCH (21:35)
[2017-08-14] MEDS: METOPROLOL SUCCINATE 25 MG TABLET PO SCH (21:35)
[2017-08-14] MEDS: cloNIDine 0.1 MG TABLET PO SCH (21:35)
[2017-08-15] MEDS: ZOLPIDEM 5 MG TABLET PO PRN (00:53)
[2017-08-15] MEDS: SODIUM CHLORIDE FLUSH 0.9% 10 ML SYRINGE IVP SCH ×3 (04:49→18:25)
[2017-08-15] MEDS: SODIUM CHLORIDE 0.9% 1,000 ML IV SCH ×3 (06:00→21:02)
[2017-08-15] MEDS: PANTOPRAZOLE 40 MG TABLET PO SCH ×2 (06:32→16:11)
[2017-08-15] MEDS: ACETAMINOPHEN 325 MG TABLET PO PRN ×4 (06:32→18:06)
[2017-08-15] MEDS: GABAPENTIN 300 MG CAPSULE PO SCH ×3 (06:32→21:26)
[2017-08-15] MEDS: SODIUM CHLORIDE FLUSH 0.9% 10 ML SYRINGE IVP PRN ×3 (07:11→20:10)
[2017-08-15 07:32] LABS: EOSINOPHILS % (AUTO) 0.3 %; MONOCYTES % (AUTO) 6.4 %
[2017-08-15] MEDS ORDERED: INSULIN ASPART 300 UNIT/3 ML PEN SUBQ ONE (07:49)
[2017-08-15 07:54] LABS: ALBUMIN 2.6 g/dL (3.2-5.5); ALBUMIN/GLOBULIN RATIO 0.9 (1.0-2.2); CALCIUM 7.7 mg/dL (8.5-10.3); CREATININE 0.7 mg/dL (0.4-1.0); MAGNESIUM 1.8 mg/dL (1.7-2.8); PHOSPHORUS 1.6 mg/dL (2.5-4.6); TOTAL PROTEIN 5.5 g/dL (6.7-8.2)
[2017-08-15] MEDS: INSULIN ASPART 300 UNIT/3 ML PEN SUBQ SCH ×7 (07:56→21:03)
[2017-08-15] MEDS: INSULIN GLARGINE 300 UNIT/3 ML PEN SUBQ SCH (08:14)
[2017-08-15] MEDS: ASPIRIN EC 81 MG TABLET PO SCH (08:14)
[2017-08-15] MEDS: DULoxetine 30 MG CAPSULE PO SCH (08:15)
[2017-08-15] MEDS: OXYBUTYNIN 5MG TABLET PO SCH ×2 (08:15→21:07)
[2017-08-15] MEDS: cloNIDine 0.1 MG TABLET PO SCH ×2 (08:15→21:02)
[2017-08-15] MEDS: diltiaZEM CD 120 MG CAPSULE PO SCH (08:15)
[2017-08-15] MEDS: CILOSTAZOL 100 MG TABLET PO SCH ×2 (08:15→21:02)
[2017-08-15] MEDS: ENOXAPARIN 40 MG/0.4 ML SYRINGE SUBQ SCH (08:15)
[2017-08-15] MEDS: METOPROLOL SUCCINATE 25 MG TABLET PO SCH ×2 (08:15→21:02)
[2017-08-15 08:27] LABS: BASOPHILS % (AUTO) 0.5 %; HGB - HEMOGLOBIN 9.4 g/dL (12.0-16.0); LYMPHOCYTES # (AUTO) 2.2 10^3/uL (1.5-3.5); LYMPHOCYTES % (AUTO) 25.4 %; MEAN CORPUSCULAR HEMOGLOBIN 25.3 pg (27.0-31.0); MEAN CORPUSCULAR HGB CONC 31.7 g/dL (32.0-36.0); MEAN CORPUSCULAR VOLUME 79.8 fL (81.0-99.0); MONOCYTES # (AUTO) 0.6 10^3/uL (0.0-1.0); NEUTROPHILS # (AUTO) 5.9 10^3/uL (1.5-6.6); NEUTROPHILS % (AUTO) 67.4 %; PLT - PLATELET COUNT 324 10^3/uL (130-450); RED CELL DISTRIBUTION WIDTH 19.3 % (12.0-15.0); WHITE BLOOD COUNT 8.8 x10^3/uL (4.8-10.8)
[2017-08-15] MEDS: NEUTRA-PHOS 250 MG TABLET PO SCH ×3 (09:22→17:07)
--- NOTE | 2017-08-15 11:23 | PROVIDER PROGRESS NOTE ---
Assessment/Plan - Problem List (1) DKA (diabetic ketoacidoses) Qualifiers: Diabetes mellitus type: type 1 Diabetes mellitus complication detail: without coma Qualified Code(s): E10.10 - Type 1 diabetes mellitus with ketoacidosis without coma Assessment/Plan: Anion gap closed Resolved Continued on home dose of 70 units lantus and novolog 12 U TID with meals along with SS insulin Patients BG 461 this but anion gap still closed DM diet Monitor BG ACHS HbA1 12.9 Patient counselled about non compliance Need better control of BG prior to discharge Will adjust lantus and novolog doses increase lantus to 75U and novolog to 15 U and increase sliding scale Qualifiers: Diabetes mellitus type: type 1 Diabetes mellitus complication detail: without coma Qualified Code(s): E10.10 - Type 1 diabetes mellitus with ketoacidosis without coma (2) High anion gap metabolic acidosis Conclusion/Plan: Secondary to DKA Resolved (3) Hyponatremia Conclusion/Plan: On presentation the patient has severe hyponatremia with a sodium of 111. Part of this appears to be a pseudohyponatremia as the patient's blood glucose is 1362 on presentation. The patient's corrected sodium is 131 when taking it to account the glucose. The patient appears to have hypovolemic hyponatremia. Given that the corrected sodium is 131 there is no need to do a slow correction. Na is 129 Improving with IVFs (4) HANSA (acute kidney injury) Conclusion/Plan: Resolved with IVFs Immunohematologist is 0.7 today (5) Dehydration Conclusion/Plan: Patient is severely dehydrated on presentation as is evident by her elevated lactic acid of 4.4, hyponatremia, hypochloremia and physical exam. Patient is likely severely dehydrated secondary to her DKA and vomiting. Resolved Lactic acid down to 1.8 and communications technologist improved to normal (6) Hyperkalemia Conclusion/Plan: Patient's potassium is elevated on presentation at 6.3. This is likely secondary to her severe acidosis and diabetic ketoacidosis. Resolved as K is down to 4.2 today (7) Methamphetamine abuse Conclusion/Plan: Patient continues to abuse methamphetamine although today her urine tox screen is negative. She was again counseled on need to quit using methamphetamine and get her life back together. (8) Tobacco abuse disorder Conclusion/Plan: Patient continues to smoke a few cigarettes a day. The patient was counseled on need to quit smoking and the adverse effects of smoking. (9) Leukocytosis, unspecified Conclusion/Plan: WBC improved from 20.4 to 8.8 with IVFs Patient has not spiked fever and does not have any obvious source of infection therefore no abx Will continue IVFs Monitor WBC Resolved Qualifiers: Leukocytosis type: other Qualified Code(s): D72.828 - Other elevated white blood cell count - Current Meds Current Meds: Current Medications Generic Name Dose Route Start Last Admin Trade Name Freq PRN Reason Stop Dose Admin Acetaminophen 650 mg 08/13/17 11:32 08/15/17 09:28 Tylenol PO 650 mg Q4HR PRN Administration Pain 1 to 4 Albuterol 2.5 mg 08/13/17 11:32 08/15/17 08:00 INH 2.5 mg Q4HR PRN Administration Wheezing Amitriptyline HCl 25 mg 08/14/17 21:00 08/14/17 21:35 Elavil PO 25 mg HS SYLVIA Administration Aspirin 81 mg 08/15/17 09:00 08/15/17 08:14 Ecotrin PO 81 mg DAILY SYLVIA Administration Cilostazol 100 mg 08/14/17 21:00 08/15/17 08:15 Pletal PO 100 mg BID SYLVIA Administration Clonidine HCl 0.1 mg 08/14/17 21:00 08/15/17 08:15 Catapres PO 0.1 mg BID SYLVIA Administration Diltiazem HCl 120 mg 08/15/17 09:00 08/15/17 08:15 Cardizem Cd PO 120 mg DAILY SYLVIA Administration Duloxetine HCl 60 mg 08/15/17 09:00 08/15/17 08:15 Cymbalta PO 60 mg DAILY SYLVIA Administration Enoxaparin Sodium 40 mg 08/14/17 09:00 08/15/17 08:15 Lovenox SUBQ 40 mg DAILY SYLVIA Administration Gabapentin 900 mg 08/14/17 14:00 08/15/17 06:32 Neurontin PO 900 mg TID SYLVIA Administration Sodium Chloride 1,000 mls @ 125 mls/hr 08/14/17 13:00 08/15/17 06:00 Normal Saline 0.9% IV 125 mls/hr .Q8H SYLVIA Administration Insulin Aspart 12 unit 08/14/17 17:00 08/15/17 08:14 Novolog SUBQ 12 unit TIDWM SYLVIA Administration Insulin Aspart 2 - 10 unit 08/15/17 08:00 08/15/17 07:56 Novolog SUBQ Not Given 0800,1200,1700,2100 [facility] Protocol Insulin Glargine 70 unit 08/14/17 13:00 08/15/17 08:14 Lantus Solostar SUBQ 70 unit DAILY SYLVIA Administration Metoprolol Succinate 25 mg 08/14/17 21:00 08/15/17 08:15 Toprol Xl PO 25 mg BID SYLVIA Administration Ondansetron HCl 4 mg 08/13/17 11:32 08/14/17 11:20 Zofran Inj IVP 4 mg Q6HR PRN Administration Nausea / Vomiting Oxybutynin Chloride 5 mg 08/14/17 21:00 08/15/17 08:15 Ditropan PO 5 mg BID SYLVIA Administration Pantoprazole Sodium 40 mg 08/13/17 16:00 08/15/17 06:32 Protonix PO 40 mg BIDAC SYLVIA Administration Prochlorperazine Edisylate 10 mg 08/13/17 11:32 08/14/17 12:58 Compazine Inj IVP 10 mg Q6HR PRN Administration Nausea / Vomiting Sodium Chloride 10 ml 08/13/17 17:00 08/15/17 07:11 Normal Saline Flush 0.9% IVP 10 ml 0100,0900,1700 SYLVIA Administration Sodium Chloride 10 ml 08/13/17 11:32 08/15/17 07:11 Normal Saline Flush 0.9% IVP 10 ml PRN PRN Administration NEEDED PER PROVIDER ORDERS Sodium Phosphate 250 mg 08/15/17 08:00 08/15/17 09:22 K-Phos Neutral PO 250 mg TIDWM SYLVIA Administration Zolpidem Tartrate 5 mg 08/13/17 11:32 08/15/17 00:53 Ambien PO 5 mg QPM PRN Administration Insomnia - Lab Result Lab results reviewed: Yes Fish Bone Diagrams: 08/15/17 08:30 08/15/17 07:28 - Additional Planning Condition/Complexity: Guarded My Orders: My Active Orders 08/14/17 12:09 LORazepam [Ativan] 1 mg PO QPM PRN 08/14/17 12:14 Blood Glucose Checks - Eating [RC] 0800,1200,1700,2100 Initiate Hypoglycemia Protocol [RC] .protocol 08/14/17 13:00 Insulin Glargine [Lantus Solostar] 70 unit SUBQ DAILY Sodium Chloride 0.9% [Normal Saline 0.9%] 1,000 ml IV 125 mls/hr 08/14/17 14:00 Gabapentin [Neurontin] 900 mg PO TID 08/14/17 17:00 Insulin Aspart [NovoLOG] 12 unit SUBQ TIDWM 08/14/17 21:00 Amitriptyline [Elavil] 25 mg PO HS Cilostazol [Pletal] 100 mg PO BID Metoprolol Succinate [Toprol Xl] 25 mg PO BID Oxybutynin [Ditropan] 5 mg PO BID cloNIDine [Catapres] 0.1 mg PO BID 08/14/17 Dinner DIET [Carb-controlled Diet] [DIET] 08/15/17 08:00 Insulin Aspart [NovoLOG] 2 - 10 unit SUBQ 0800,1200,1700,2100 Neutra-Phos [K-Phos Neutral] 250 mg PO TIDWM 08/15/17 09:00 Aspirin EC [Ecotrin] 81 mg PO DAILY DULoxetine [Cymbalta] 60 mg PO DAILY diltiaZEM CD [Cardizem Cd] 120 mg PO DAILY 08/16/17 05:00 CBC - COMP BLD CT W/AUTO DIFF [HEME] DAILYLAB MAGNESIUM [CHEM] DAILYLAB PHOSPHORUS [CHEM] DAILYLAB 08/17/17 05:00 CBC - COMP BLD CT W/AUTO DIFF [HEME] DAILYLAB MAGNESIUM [CHEM] DAILYLAB PHOSPHORUS [CHEM] DAILYLAB 08/18/17 05:00 CBC - COMP BLD CT W/AUTO DIFF [HEME] DAILYLAB MAGNESIUM [CHEM] DAILYLAB PHOSPHORUS [CHEM] DAILYLAB 08/19/17 05:00 CBC - COMP BLD CT W/AUTO DIFF [HEME] DAILYLAB MAGNESIUM [CHEM] DAILYLAB PHOSPHORUS [CHEM] DAILYLAB Plan Discussed with:: Patient Time Spent: 31-60 minutes Subjective - Subjective Patient Reports: Pain (Complaining of pain all over her body), Other (Denies any nausea or vomiting, still feels thirsty. She feels fatigued and weak and wants something more for pain.) Nursing Reports: Pain (all over) Objective Vital Signs: Vital Signs - 24 hr 08/14/17 08/14/17 08/14/17 14:00 18:00 21:47 Temperature 37 C Heart Rate Heart Rate [ 107 H Brachial] Heart Rate [ 116 H 120 H Monitoring electrodes] Respiratory 16 22 16 Rate Blood Pressure 154/98 H 154/97 H 148/49 H [Right Brachial artery] O2 Saturation 98 98 99 08/14/17 08/15/17 08/15/17 23:40 04:24 07:41 Temperature 37.0 C 37.0 C 36.6 C Heart Rate Heart Rate [ 98 99 88 Brachial] Heart Rate [ Monitoring electrodes] Respiratory 16 16 16 Rate Blood Pressure 135/72 H 127/73 131/86 H [Right Brachial artery] O2 Saturation 98 100 96 08/15/17 08:00 Temperature Heart Rate 90 Heart Rate [ Brachial] Heart Rate [ Monitoring electrodes] Respiratory 18 Rate Blood Pressure [Right Brachial artery] O2 Saturation Oxygen O2 Source Room air I&O (Last 24 Hrs): Intake and Output Totals x24h 08/13/17 08/14/17 08/15/17 23:59 23:59 23:59 Intake Total 1250 5331.00 2840 Output Total 650 1 Balance 600 5330.00 2840 General: Alert, Oriented x3, Cooperative, Other (Disheveled looking, flushed, appears older than stated age) HEENT: Atraumatic, PERRLA, EOMI, Other (dry mucus membranes) Neck: Supple, No JVD, No thyromegaly, +2 carotid pulse wo bruit, No LAD Lymphatic: no adenopathy Neuro: Alert, Non Focal, CN 2-12 Grossly Intact, Oriented Times 3 Cardiovascular: Regular rate, Normal S1, Normal S2 Respiratory: Chest non-tender, No respiratory distress, Breath sounds nml Abdomen: Normal bowel sounds, Soft, No tenderness, No hepatospenomegaly Extremities: No clubbing, No cyanosis, No edema, Normal pulses Skin: No rashes, No breakdown Comments/Notes: Amputated toes appear clean without signs of infection - Results Results: Laboratory Results WBC 8.8 x10^3/uL (4.8-10.8) 08/15/17 08:30 RBC 3.70 10^6/uL (4.20-5.40) L 08/15/17 08:30 Hgb 9.4 g/dL (12.0-16.0) L 08/15/17 08:30 Hct 29.5 % (37.0-47.0) L 08/15/17 08:30 MCV 79.8 fL (81.0-99.0) L 08/15/17 08:30 MCH 25.3 pg (27.0-31.0) L 08/15/17 08:30 MCHC 31.7 g/dL (32.0-36.0) L 08/15/17 08:30 RDW 19.3 % (12.0-15.0) H 08/15/17 08:30 Plt Count 324 10^3/uL (130-450) 08/15/17 08:30 MPV 7.0 fL (7.9-10.8) L 08/15/17 08:30 Neut # (Auto) 5.9 10^3/uL (1.5-6.6) 08/15/17 08:30 Lymph # (Auto) 2.2 10^3/uL (1.5-3.5) 08/15/17 08:30 [place] # (Auto) 0.6 10^3/uL (0.0-1.0) 08/15/17 08:30 Eos # (Auto) 0.0 10^3/uL (0.0-0.7) 08/15/17 08:30 Baso # (Auto) 0.0 10^3/uL (0.0-0.1) 08/15/17 08:30 Absolute Nucleated RBC 0.00 x10^3/uL 08/15/17 08:30 Total Counted 100 08/13/17 10:45 Band Neuts % (Manual) 4 % (0-10) 08/13/17 10:45 Abnorm Lymph % (Manual) 0 % 08/13/17 10:45 Metamyelocytes % 1 % (-0) H 08/13/17 10:45 Nucleated RBC % 0.0 /100WBC 08/15/17 08:30 Neutrophils # (Manual) 16.7 10^3/uL (1.5-6.6) H 08/13/17 10:45 Lymphocytes # (Manual) 2.4 10^3/uL (1.5-3.5) 08/13/17 10:45 Monocytes # (Manual) 1.0 10^3/uL (0.0-1.0) 08/13/17 10:45 Eosinophils # (Manual) 0.0 10^3/uL (0-0.7) 08/13/17 10:45 Basophils # (Manual) 0.0 10^3/uL (0-0.1) 08/13/17 10:45 Differential Comment MANUAL DIFFERENTIAL 08/13/17 10:45 Manual Slide Review Indicated 08/13/17 10:45 RBC Morph Micro Appear 1+ ANISOCYTOSIS (NORMAL) 1+ POLYCHROMASIA (NORMAL) 08/13/17 10:45 RBC Morph Micro Appear 1+ ANISOCYTOSIS (NORMAL) 1+ POLYCHROMASIA (NORMAL) 08/13/17 10:45 PT 10.6 secs (9.9-12.6) 08/13/17 10:45 INR 0.9 (0.8-1.2) 08/13/17 10:45 APTT 30.1 secs (24.9-33.3) 08/13/17 10:45 VBG pH 7.038 (7.31-7.41) L 08/13/17 11:10 VBG pCO2 17.2 mmHg (41-51) L 08/13/17 11:10 VBG pO2 98.4 mmHg (25-47) H 08/13/17 11:10 VBG HCO3 4.5 mmol/L (23-28) L 08/13/17 11:10 VBG Total CO2 5.1 mmol/L (24-29) L 08/13/17 11:10 VBG O2 Saturation 94.0 % (60-80) H 08/13/17 11:10 VBG Base Excess -24.4 mmol/L (-2 - +2) L 08/13/17 11:10 Sodium 129 mmol/L (135-145) L 08/15/17 07:28 Potassium 4.2 mmol/L (3.5-5.0) 08/15/17 07:28 Chloride 94 mmol/L (101-111) L 08/15/17 07:28 Carbon Dioxide 26 mmol/L (21-32) 08/15/17 07:28 Anion Gap 9.0 (6-13) 08/15/17 07:28 BUN 20 mg/dL (6-20) 08/15/17 07:28 Creatinine 0.7 mg/dL (0.4-1.0) 08/15/17 07:28 Estimated GFR (MDRD) 95 (>89) 08/15/17 07:28 Glucose 461 mg/dL (70-100) H 08/15/17 07:28 Glycated Hemoglobin 12.9 % (4.6-6.2) H 08/14/17 05:20 Estim Average Glucose 324 (70-100) H 08/14/17 05:20 Lactic Acid 1.8 mmol/L (0.5-2.2) 08/13/17 18:30 Calcium 7.7 mg/dL (8.5-10.3) L 08/15/17 07:28 Ionized Calcium NO 08/14/17 11:15 Phosphorus 1.6 mg/dL (2.5-4.6) L 08/15/17 07:28 Magnesium 1.8 mg/dL (1.7-2.8) 08/15/17 07:28 Total Bilirubin 1.0 mg/dL (0.2-1.0) 08/15/17 07:28 AST 17 IU/L (10-42) 08/15/17 07:28 ALT 35 IU/L (10-60) 08/15/17 07:28 Alkaline Phosphatase 135 IU/L (42-121) H 08/15/17 07:28 Troponin I < 0.04 ng/mL (<0.49) 08/13/17 22:44 Total Protein 5.5 g/dL (6.7-8.2) L 08/15/17 07:28 Albumin 2.6 g/dL (3.2-5.5) L 08/15/17 07:28 Globulin 2.9 g/dL (2.1-4.2) 08/15/17 07:28 Albumin/Globulin Ratio 0.9 (1.0-2.2) L 08/15/17 07:28 Lipase 40 U/L (22-51) 08/13/17 10:45 Serum HCG, Qual NEGATIVE 08/13/17 10:45 Urine Color YELLOW 08/13/17 13:30 Urine Clarity HAZY (CLEAR) 08/13/17 13:30 Urine pH 5.5 PH (5.0-7.5) 08/13/17 13:30 Ur Specific [place] 1.015 (1.002-1.030) 08/13/17 13:30 Urine Protein NEGATIVE mg/dL (NEGATIVE) 08/13/17 13:30 Urine Glucose (UA) >=1000 mg/dL (NEGATIVE) H 08/13/17 13:30 Urine Ketones >=80 mg/dL (NEGATIVE) H 08/13/17 13:30 Urine Occult Blood LARGE (NEGATIVE) H 08/13/17 13:30 Urine Nitrite NEGATIVE (NEGATIVE) 08/13/17 13:30 Urine Bilirubin NEGATIVE (NEGATIVE) 08/13/17 13:30 Urine Urobilinogen 0.2 (NORMAL) E.U./dL (NORMAL) 08/13/17 13:30 Ur Leukocyte Esterase NEGATIVE (NEGATIVE) 08/13/17 13:30 Urine RBC 6-10 /HPF (0-5) H 08/13/17 13:30 Urine WBC 0-3 /HPF (0-5) 08/13/17 13:30 Ur Squamous Epith Cells FEW Squamous (<= Few) 08/13/17 13:30 Urine Bacteria Few /HPF (None Seen) 08/13/17 13:30 Ur Microscopic Review INDICATED 08/13/17 13:30 Urine Culture Comments NOT INDICATED 08/13/17 13:30 Urine Opiates Screen NEGATIVE (NEGATIVE) 08/13/17 13:30 Ur Oxycodone Screen NEGATIVE (NEGATIVE) 08/13/17 13:30 Urine Methadone Screen NEGATIVE (NEGATIVE) 08/13/17 13:30 Ur Propoxyphene Screen NEGATIVE (NEGATIVE) 08/13/17 13:30 Ur Barbiturates Screen NEGATIVE (NEGATIVE) 08/13/17 13:30 Ur Tricyclics Screen NEGATIVE (NEGATIVE) 08/13/17 13:30 Ur Phencyclidine Scrn NEGATIVE (NEGATIVE) 08/13/17 13:30 Ur Amphetamine Screen NEGATIVE (NEGATIVE) 08/13/17 13:30 U Methamphetamines Scrn NEGATIVE (NEGATIVE) 08/13/17 13:30 U Benzodiazepines Scrn NEGATIVE (NEGATIVE) 08/13/17 13:30 Urine Cocaine Screen NEGATIVE (NEGATIVE) 08/13/17 13:30 U Cannabinoids Screen NEGATIVE (NEGATIVE) 08/13/17 13:30 Serum Ketones LARGE (NEGATIVE) H 08/13/17 17:42 - Procedures Procedures: Procedures DETACHMENT AT LEFT 4TH TOE, LOW, OPEN APPROACH (06/30/17) DETACHMENT AT RIGHT 1ST TOE, LOW, OPEN APPROACH (03/14/17) DETACHMENT AT RIGHT 2ND TOE, HIGH, OPEN APPROACH (06/30/17) DETACHMENT AT RIGHT 4TH TOE, HIGH, OPEN APPROACH (06/30/17) INSERT INFUSION DEV IN R INT JUGULAR VEIN, PERC (04/21/16) INSERTION OF INFUSION DEV INTO R SUBCLAV VEIN, PERC APPROACH (03/14/17) INSERTION OF INFUSION DEV INTO SUP VENA CAVA, PERC APPROACH (06/30/17) INSERTION OF INFUSION DEVICE INTO R ATRIUM, PERC APPROACH (12/04/15) TRANSFUSE NONAUT RED BLOOD CELLS IN PERIPH VEIN, PERC (01/22/17) ULTRASONOGRAPHY OF RIGHT JUGULAR VEINS, GUIDANCE (04/21/16) ABX Reporting Has patient been on IV antibiotics over the past 48 hours?: No Current Medications - Current Medications Current Medications: Laboratory Results WBC 8.8 x10^3/uL (4.8-10.8) 08/15/17 08:30 RBC 3.70 10^6/uL (4.20-5.40) L 08/15/17 08:30 Hgb 9.4 g/dL (12.0-16.0) L 08/15/17 08:30 Hct 29.5 % (37.0-47.0) L 08/15/17 08:30 MCV 79.8 fL (81.0-99.0) L 08/15/17 08:30 MCH 25.3 pg (27.0-31.0) L 08/15/17 08:30 MCHC 31.7 g/dL (32.0-36.0) L 08/15/17 08:30 RDW 19.3 % (12.0-15.0) H 08/15/17 08:30 Plt Count 324 10^3/uL (130-450) 08/15/17 08:30 MPV 7.0 fL (7.9-10.8) L 08/15/17 08:30 Neut # (Auto) 5.9 10^3/uL (1.5-6.6) 08/15/17 08:30 Lymph # (Auto) 2.2 10^3/uL (1.5-3.5) 08/15/17 08:30 [place] # (Auto) 0.6 10^3/uL (0.0-1.0) 08/15/17 08:30 Eos # (Auto) 0.0 10^3/uL (0.0-0.7) 08/15/17 08:30 Baso # (Auto) 0.0 10^3/uL (0.0-0.1) 08/15/17 08:30 Absolute Nucleated RBC 0.00 x10^3/uL 08/15/17 08:30 Total Counted 100 08/13/17 10:45 Band Neuts % (Manual) 4 % (0-10) 08/13/17 10:45 Abnorm Lymph % (Manual) 0 % 08/13/17 10:45 Metamyelocytes % 1 % (-0) H 08/13/17 10:45 Nucleated RBC % 0.0 /100WBC 08/15/17 08:30 Neutrophils # (Manual) 16.7 10^3/uL (1.5-6.6) H 08/13/17 10:45 Lymphocytes # (Manual) 2.4 10^3/uL (1.5-3.5) 08/13/17 10:45 Monocytes # (Manual) 1.0 10^3/uL (0.0-1.0) 08/13/17 10:45 Eosinophils # (Manual) 0.0 10^3/uL (0-0.7) 08/13/17 10:45 Basophils # (Manual) 0.0 10^3/uL (0-0.1) 08/13/17 10:45 Differential Comment MANUAL DIFFERENTIAL 08/13/17 10:45 Manual Slide Review Indicated 08/13/17 10:45 RBC Morph Micro Appear 1+ ANISOCYTOSIS (NORMAL) 1+ POLYCHROMASIA (NORMAL) 08/13/17 10:45 RBC Morph Micro Appear 1+ ANISOCYTOSIS (NORMAL) 1+ POLYCHROMASIA (NORMAL) 08/13/17 10:45 PT 10.6 secs (9.9-12.6) 08/13/17 10:45 INR 0.9 (0.8-1.2) 08/13/17 10:45 APTT 30.1 secs (24.9-33.3) 08/13/17 10:45 VBG pH 7.038 (7.31-7.41) L 08/13/17 11:10 VBG pCO2 17.2 mmHg (41-51) L 08/13/17 11:10 VBG pO2 98.4 mmHg (25-47) H 08/13/17 11:10 VBG HCO3 4.5 mmol/L (23-28) L 08/13/17 11:10 VBG Total CO2 5.1 mmol/L (24-29) L 08/13/17 11:10 VBG O2 Saturation 94.0 % (60-80) H 08/13/17 11:10 VBG Base Excess -24.4 mmol/L (-2 - +2) L 08/13/17 11:10 Sodium 129 mmol/L (135-145) L 08/15/17 07:28 Potassium 4.2 mmol/L (3.5-5.0) 08/15/17 07:28 Chloride 94 mmol/L (101-111) L 08/15/17 07:28 Carbon Dioxide 26 mmol/L (21-32) 08/15/17 07:28 Anion Gap 9.0 (6-13) 08/15/17 07:28 BUN 20 mg/dL (6-20) 08/15/17 07:28 Creatinine 0.7 mg/dL (0.4-1.0) 08/15/17 07:28 Estimated GFR (MDRD) 95 (>89) 08/15/17 07:28 Glucose 461 mg/dL (70-100) H 08/15/17 07:28 Glycated Hemoglobin 12.9 % (4.6-6.2) H 08/14/17 05:20 Estim Average Glucose 324 (70-100) H 08/14/17 05:20 Lactic Acid 1.8 mmol/L (0.5-2.2) 08/13/17 18:30 Calcium 7.7 mg/dL (8.5-10.3) L 08/15/17 07:28 Ionized Calcium NO 08/14/17 11:15 Phosphorus 1.6 mg/dL (2.5-4.6) L 08/15/17 07:28 Magnesium 1.8 mg/dL (1.7-2.8) 08/15/17 07:28 Total Bilirubin 1.0 mg/dL (0.2-1.0) 08/15/17 07:28 AST 17 IU/L (10-42) 08/15/17 07:28 ALT 35 IU/L (10-60) 08/15/17 07:28 Alkaline Phosphatase 135 IU/L (42-121) H 08/15/17 07:28 Troponin I < 0.04 ng/mL (<0.49) 08/13/17 22:44 Total Protein 5.5 g/dL (6.7-8.2) L 08/15/17 07:28 Albumin 2.6 g/dL (3.2-5.5) L 08/15/17 07:28 Globulin 2.9 g/dL (2.1-4.2) 08/15/17 07:28 Albumin/Globulin Ratio 0.9 (1.0-2.2) L 08/15/17 07:28 Lipase 40 U/L (22-51) 08/13/17 10:45 Serum HCG, Qual NEGATIVE 08/13/17 10:45 Urine Color YELLOW 08/13/17 13:30 Urine Clarity HAZY (CLEAR) 08/13/17 13:30 Urine pH 5.5 PH (5.0-7.5) 08/13/17 13:30 Ur Specific [place] 1.015 (1.002-1.030) 08/13/17 13:30 Urine Protein NEGATIVE mg/dL (NEGATIVE) 08/13/17 13:30 Urine Glucose (UA) >=1000 mg/dL (NEGATIVE) H 08/13/17 13:30 Urine Ketones >=80 mg/dL (NEGATIVE) H 08/13/17 13:30 Urine Occult Blood LARGE (NEGATIVE) H 08/13/17 13:30 Urine Nitrite NEGATIVE (NEGATIVE) 08/13/17 13:30 Urine Bilirubin NEGATIVE (NEGATIVE) 08/13/17 13:30 Urine Urobilinogen 0.2 (NORMAL) E.U./dL (NORMAL) 08/13/17 13:30 Ur Leukocyte Esterase NEGATIVE (NEGATIVE) 08/13/17 13:30 Urine RBC 6-10 /HPF (0-5) H 08/13/17 13:30 Urine WBC 0-3 /HPF (0-5) 08/13/17 13:30 Ur Squamous Epith Cells FEW Squamous (<= Few) 08/13/17 13:30 Urine Bacteria Few /HPF (None Seen) 08/13/17 13:30 Ur Microscopic Review INDICATED 08/13/17 13:30 Urine Culture Comments NOT INDICATED 08/13/17 13:30 Urine Opiates Screen NEGATIVE (NEGATIVE) 08/13/17 13:30 Ur Oxycodone Screen NEGATIVE (NEGATIVE) 08/13/17 13:30 Urine Methadone Screen NEGATIVE (NEGATIVE) 08/13/17 13:30 Ur Propoxyphene Screen NEGATIVE (NEGATIVE) 08/13/17 13:30 Ur Barbiturates Screen NEGATIVE (NEGATIVE) 08/13/17 13:30 Ur Tricyclics Screen NEGATIVE (NEGATIVE) 08/13/17 13:30 Ur Phencyclidine Scrn NEGATIVE (NEGATIVE) 08/13/17 13:30 Ur Amphetamine Screen NEGATIVE (NEGATIVE) 08/13/17 13:30 U Methamphetamines Scrn NEGATIVE (NEGATIVE) 08/13/17 13:30 U Benzodiazepines Scrn NEGATIVE (NEGATIVE) 08/13/17 13:30 Urine Cocaine Screen NEGATIVE (NEGATIVE) 08/13/17 13:30 U Cannabinoids Screen NEGATIVE (NEGATIVE) 08/13/17 13:30 Serum Ketones LARGE (NEGATIVE) H 08/13/17 17:42 Active Medications Generic Name Dose Route Start Last Admin Trade Name Freq PRN Reason Stop Dose Admin Acetaminophen 650 mg 08/13/17 11:32 08/15/17 09:28 Tylenol PO 650 mg Q4HR PRN Administration Pain 1 to 4 Albuterol 2.5 mg 08/13/17 11:32 08/15/17 08:00 INH 2.5 mg Q4HR PRN Administration Wheezing Amitriptyline HCl 25 mg 08/14/17 21:00 08/14/17 21:35 Elavil PO 25 mg HS SYLVIA Administration Aspirin 81 mg 08/15/17 09:00 08/15/17 08:14 Ecotrin PO 81 mg DAILY SYLVIA Administration Cilostazol 100 mg 08/14/17 21:00 08/15/17 08:15 Pletal PO 100 mg BID SYLVIA Administration Clonidine HCl 0.1 mg 08/14/17 21:00 08/15/17 08:15 Catapres PO 0.1 mg BID SYLVIA Administration Diltiazem HCl 120 mg 08/15/17 09:00 08/15/17 08:15 Cardizem Cd PO 120 mg DAILY SYLVIA Administration Duloxetine HCl 60 mg 08/15/17 09:00 08/15/17 08:15 Cymbalta PO 60 mg DAILY [facility] Administration Enoxaparin Sodium 40 mg 08/14/17 09:00 08/15/17 08:15 Lovenox SUBQ 40 mg DAILY SYLVIA Administration Gabapentin 900 mg 08/14/17 14:00 08/15/17 06:32 Neurontin PO 900 mg TID [facility] Administration Sodium Chloride 1,000 mls @ 125 mls/hr 08/14/17 13:00 08/15/17 06:00 Normal Saline 0.9% IV 125 mls/hr .Q8H [facility] Administration Insulin Aspart 2 - 10 unit 08/15/17 08:00 08/15/17 07:56 Novolog SUBQ Not Given 0800,1200,1700,2100 [facility] Protocol Insulin Aspart 15 unit 08/15/17 12:00 Novolog SUBQ TIDWM [facility] Insulin Glargine 75 unit 08/16/17 09:00 Lantus Solostar SUBQ DAILY [facility] Ketorolac Tromethamine 30 mg 08/15/17 11:25 Toradol Inj IVP 08/20/17 11:24 Q6HR PRN PAIN Lorazepam 1 mg 08/14/17 12:09 Ativan PO QPM PRN Insomnia Metoprolol Succinate 25 mg 08/14/17 21:00 08/15/17 08:15 Toprol Xl PO 25 mg BID [facility] Administration Ondansetron HCl 4 mg 08/13/17 11:32 08/14/17 11:20 Zofran Inj IVP 4 mg Q6HR PRN Administration Nausea / Vomiting Oxybutynin Chloride 5 mg 08/14/17 21:00 08/15/17 08:15 Ditropan PO 5 mg BID [facility] Administration Pantoprazole Sodium 40 mg 08/13/17 16:00 08/15/17 06:32 Protonix PO 40 mg BIDAC [facility] Administration Prochlorperazine Edisylate 10 mg 08/13/17 11:32 08/14/17 12:58 Compazine Inj IVP 10 mg Q6HR PRN Administration Nausea / Vomiting Promethazine HCl 25 mg 08/13/17 11:32 Phenergan Inj IM Q6HR PRN Nausea / Vomiting Sodium Chloride 10 ml 08/13/17 17:00 08/15/17 07:11 Normal Saline Flush 0.9% IVP 10 ml 0100,0900,1700 [facility] Administration Sodium Chloride 10 ml 08/13/17 11:32 08/15/17 07:11 Normal Saline Flush 0.9% IVP 10 ml PRN PRN Administration NEEDED PER PROVIDER ORDERS Sodium Phosphate 250 mg 08/15/17 08:00 08/15/17 09:22 K-Phos Neutral PO 250 mg TIDWM [facility] Administration Zolpidem Tartrate 5 mg 08/13/17 11:32 08/15/17 00:53 Ambien PO 5 mg QPM PRN Administration Insomnia
[2017-08-15] MEDS: KETOROLAC 30 MG/ML VIAL IVP PRN ×2 (11:55→20:10)
[2017-08-15] MEDS: SACCHAROMYCES BOULARDII 250 MG CAPSULE PO SCH ×2 (11:55→17:07)
[2017-08-15] MEDS: AMITRIPTYLINE 25 MG TABLET PO SCH (21:02)
[2017-08-16] MEDS: ZOLPIDEM 5 MG TABLET PO PRN (00:11)
[2017-08-16] MEDS: ACETAMINOPHEN 325 MG TABLET PO PRN (00:11)
[2017-08-16] MEDS: SODIUM CHLORIDE FLUSH 0.9% 10 ML SYRINGE IVP SCH ×2 (04:50→08:23)
[2017-08-16] MEDS: SODIUM CHLORIDE 0.9% 1,000 ML IV SCH (05:04)
[2017-08-16] MEDS: PANTOPRAZOLE 40 MG TABLET PO SCH (05:51)
[2017-08-16] MEDS: GABAPENTIN 300 MG CAPSULE PO SCH (05:51)
[2017-08-16] MEDS: SODIUM CHLORIDE FLUSH 0.9% 10 ML SYRINGE IVP PRN (05:52)
[2017-08-16 06:16] LABS: BASOPHILS % (AUTO) 0.6 %; HGB - HEMOGLOBIN 8.5 g/dL (12.0-16.0); LYMPHOCYTES # (AUTO) 2.2 10^3/uL (1.5-3.5); LYMPHOCYTES % (AUTO) 48.1 %; MEAN CORPUSCULAR HEMOGLOBIN 25.4 pg (27.0-31.0); MEAN CORPUSCULAR HGB CONC 31.8 g/dL (32.0-36.0); MEAN CORPUSCULAR VOLUME 79.7 fL (81.0-99.0); MONOCYTES # (AUTO) 0.3 10^3/uL (0.0-1.0); MONOCYTES % (AUTO) 5.9 %; NEUTROPHILS # (AUTO) 2.1 10^3/uL (1.5-6.6); NEUTROPHILS % (AUTO) 44.4 %; PLT - PLATELET COUNT 269 10^3/uL (130-450); RED BLOOD COUNT 3.34 10^6/uL (4.20-5.40); RED CELL DISTRIBUTION WIDTH 19.2 % (12.0-15.0); WHITE BLOOD COUNT 4.6 x10^3/uL (4.8-10.8)
[2017-08-16 06:29] LABS: ALBUMIN 2.6 g/dL (3.2-5.5); BILIRUBIN,TOTAL 0.2 mg/dL (0.2-1.0); CALCIUM 7.7 mg/dL (8.5-10.3); CREATININE 0.4 mg/dL (0.4-1.0); MAGNESIUM 1.9 mg/dL (1.7-2.8); PHOSPHORUS 2.4 mg/dL (2.5-4.6); TOTAL PROTEIN 5.3 g/dL (6.7-8.2)
[2017-08-16] MEDS ORDERED: POTASSIUM CHLORIDE 20 MEQ TABLET PO ONE (07:56)
[2017-08-16 07:59] VITALS: BP 134/93
[2017-08-16] MEDS: SACCHAROMYCES BOULARDII 250 MG CAPSULE PO SCH (08:21)
[2017-08-16] MEDS: OXYBUTYNIN 5MG TABLET PO SCH (08:21)
[2017-08-16] MEDS: ASPIRIN EC 81 MG TABLET PO SCH (08:21)
[2017-08-16] MEDS: CILOSTAZOL 100 MG TABLET PO SCH (08:21)
[2017-08-16] MEDS: diltiaZEM CD 120 MG CAPSULE PO SCH (08:21)
[2017-08-16] MEDS: cloNIDine 0.1 MG TABLET PO SCH (08:21)
[2017-08-16] MEDS: NEUTRA-PHOS 250 MG TABLET PO SCH ×2 (08:21→12:15)
[2017-08-16] MEDS: METOPROLOL SUCCINATE 25 MG TABLET PO SCH (08:21)
[2017-08-16] MEDS: ENOXAPARIN 40 MG/0.4 ML SYRINGE SUBQ SCH (08:22)
[2017-08-16] MEDS: DULoxetine 30 MG CAPSULE PO SCH (08:22)
[2017-08-16] MEDS: INSULIN ASPART 300 UNIT/3 ML PEN SUBQ SCH ×4 (08:29→12:15)
[2017-08-16] MEDS: KETOROLAC 30 MG/ML VIAL IVP PRN (08:47)
[2017-08-16] MEDS ORDERED: INSULIN GLARGINE 300 UNIT/3 ML PEN SUBQ SCH (09:00)
--- NOTE | 2017-08-16 09:09 | Discharge Plan ---
Discharge Plan Disposition: Home, Self Care Condition: Fair Prescriptions: Blood Sugar Diagnostic [Glucose Test Strip] 1 each ACHS #120 strip LORazepam [Ativan] 1 mg PO QPM PRN #7 tablet PRN Reason: Insomnia Diet: Diabetic Activity Restrictions: Activity as Tolerated Shower Restrictions: No Driving Restrictions: No Weight Bearing: Full Weight Additional Instructions or Follow Up instructions: You presented with DKA because you forgot your insulin at your tent. You have now improved and can be discharged home. You have been prescribed ativan and glucometer test strips. Please be complaint with your medications. Please continue to stay away from drugs and avoid smoking. No Smoking: If you smoke, Please STOP! Call for help.
--- NOTE | 2017-08-16 09:23 | DISCHARGE SUMMARY ---
Discharge Summary Admit Date: 08/13/17 Discharge Date: 08/16/17 Discharging Provider: Mason Mathews MD Primary Care Provider: None Code Status: Attempt Resuscitation Condition at Discharge: Fair Discharge Disposition: 01 Home, Self Care - DIAGNOSES Admission Diagnoses: 1. Diabetic ketoacidosis 2. High anion gap metabolic acidosis 3. Hyponatremia 4. Acute kidney injury 5. Dehydration 6. Hyperkalemia 7. Methamphetamine abuse 8. Tobacco abuse disorder 9. Leukocytosis, unspecified Discharge Diagnoses with Status of Each Condition: 1. Diabetic ketoacidosis: Resolved 2. High anion gap metabolic acidosis: Resolved 3. Hyponatremia: Stable 4. Acute kidney injury: Resolved 5. Dehydration: Resolved 6. Hyperkalemia: Resolved 7. Methamphetamine abuse: Stable 8. Tobacco abuse disorder: Stable 9. Leukocytosis, unspecified: Resolved - HPI History of Present Illness: Patient is a 36-year-old female with a past medical history of insulin- dependent diabetes mellitus type 1 with recurrent episodes of DKA secondary to noncompliance, methamphetamine abuse, personality disorder, bipolar, polysubstance abuse, ADHD, hypertension, sinus tachycardia, homelessness, fibromyalgia, chronic pain, osteomyelitis status post multiple toe amputations who presents to the emergency department with a chief complaint of dizziness, weakness and vomiting. The patient states that 3 days ago she went to go visit her children at her stepmother's home. She states that she stayed there for the last 3 days and was without her insulin. She states that she left her insulin in her tent and did not think to go back and get it. She states that she did not expect to be staying at her stepmother's house for so many days. She states that over the last day she has become nauseated and had episodes of vomiting. She states that she has become increasingly weak and dizzy. She states that today she felt very sluggish and had polydipsia and polyuria. She states that she could not check her blood sugar at home because she did not have a glucometer. She states that she does not remember who called an ambulance or how she got to the emergency department. She denies any recent fevers or chills. She denies any cough or dysuria. She denies any diarrhea or abdominal pain. She does state that she hurts all over. Patient denies any headache, blurred vision, runny nose, sore throat, nasal congestion, difficulty swallowing, chest pain, shortness of air, orthopnea, PND , increased lower extremity swelling, abdominal pain, diarrhea, constipation, joint swelling, neck stiffness, hair loss, skin rash, night sweats, changes in her appetite or any recent unintentional weight loss or focal neurologic deficits. On presentation to the emergency department the patient was afebrile she was tachycardic with a heart rate of 123, normotensive and slightly tachypneic but was not in any respiratory distress. The patient did appear very ill and was lethargic. She appeared very dry and smelled ketotic. The patient's initial lab work revealed a pH of 7.03 with a bicarb of 4.5. The patient's initial blood glucose was 1362 with an anion gap of 45 and positive serum ketones. The patient was also found to have a sodium of 111 with a potassium of 6.3 and a creatinine of 1.9. Patient's lactic acid was elevated at 4.4. In the emergency department there was a great deal of difficulty getting an IV placed but finally the emergency room physician was able to get an IV started and the patient was placed on an insulin drip and given several liters of IV fluids. The patient was admitted to the intensive care unit for diabetic ketoacidosis. The patient did state to the emergency room physician that she had fallen and hit her head therefore she did undergo a CT of her head which was negative she also underwent a CT of her cervical spine that was also negative. - HOSPITAL COURSE Hospital Course: Patient presented with severe DKA and was admitted to the intensive care unit on an insulin drip. The patient's anion gap closed over the course of 2 days and the insulin drip was discontinued. The patient was placed back on her home dose of subQ insulin. We monitor the patient's blood glucose of the next day as initially it was elevated. Patient's blood glucose was stable on the day of discharge. The patient was feeling much improved and was discharged home. The patient again was counseled on need to be compliant with medications. She was given a prescription for 7 tablets of Ativan and glucometer strips. The patient stated that she had all her insulin and her tent. The patient did speak to social work about possible placement in assisted living facility however the patient does not qualify for assisted living facility and does not have the money to afford private pay. The patient is at high risk for readmission due to her poor compliance with medication and social situations. - ALLERGIES Allergies/Adverse Reactions: Allergies Allergy/AdvReac Type Severity Reaction Status Date / Time codeine Allergy Hives Verified 08/01/17 17:52 hydrocodone Allergy Hives Verified 08/01/17 17:52 morphine Allergy Itching Verified 08/01/17 17:52 milk AdvReac Cramps Verified 08/01/17 17:52 nitrofurantoin AdvReac Headache Verified 08/01/17 17:52 [From Macrobid] PAPER TAPE AdvReac Unknown Uncoded 08/01/17 17:52 - MEDICATIONS Home Medications: Ambulatory Orders Medication Instructions Recorded Confirmed Insulin Aspart [NovoLOG] 12 unit SUBQ TIDWM #3 pen 07/10/17 08/13/17 Amitriptyline [Elavil] 25 mg PO HS #20 tablet 08/05/17 08/13/17 Aspirin [Aspirin EC] 81 mg PO DAILY #30 tablet. 08/05/17 08/13/17 Cilostazol [Pletal] 100 mg PO BID #60 tablet 08/05/17 08/13/17 DULoxetine [Cymbalta] 60 mg PO DAILY #30 capsule 08/05/17 08/13/17 Gabapentin [Neurontin] 900 mg PO TID #90 capsule 08/05/17 08/13/17 Ibuprofen [Motrin] 600 mg PO Q6HR PRN #60 tablet 08/05/17 08/13/17 Insulin Aspart [Novolog Flexpen] 25 unit SUBQ ACHS #5 each 08/05/17 08/13/17 Insulin Glargine [Lantus Solostar] 70 unit SUBQ DAILY #10 pen 08/05/17 08/13/17 Metoprolol Succinate [Toprol Xl] 25 mg PO BID #60 tablet 08/05/17 08/13/17 Oxybutynin [Ditropan] 5 mg PO BID #60 tablet 08/05/17 08/13/17 cloNIDine [Catapres] 0.1 mg PO BID #60 tablet 08/05/17 08/13/17 diltiaZEM CD [Cardizem Cd] 120 mg PO DAILY #30 capsule 08/05/17 08/13/17 traMADol [Ultram] 50 mg PO Q6H PRN #10 tablet 08/05/17 08/13/17 Blood Sugar Diagnostic [Glucose 1 each [facility] #120 strip 08/16/17 Test Strip] LORazepam [Ativan] 1 mg PO QPM PRN #7 tablet 08/16/17 - PHYSICAL EXAM AT DISCHARGE General Appearance: positive: No acute distress, Alert Eyes Bilateral: positive: Normal inspection, PERRL, EOMI, No lid inflammation, Conjunctivae nml, No scleral icterus ENT: positive: ENT inspection nml, Pharynx nml, No signs of dehydration. negative: Purulent nasal drainage, Pharyngeal erythema, Oral lesions Neck: positive: Nml inspection, Thyroid nml, No JVD, Trachea midline. negative : Thyromegaly, Lymphadenopathy (R), Lymphadenopathy (L), Carotid bruit, Tracheal deviation Respiratory: positive: Chest non-tender, No respiratory distress, Breath sounds nml. negative: Wheezes, Rales, Rhonchi Cardiovascular: positive: Regular rate & rhythm, No murmur, No gallop Abdomen: positive: Non-tender, No organomegaly, Nml bowel sounds. negative: Guarding, Rebound, Hepatomegaly Back: positive: Nml inspection. negative: CVA tenderness (R), CVA tenderness (L ) Skin: positive: Color nml, No rash, Warm, Other (Amputated toes appear dry, clean and do not appear infected) Extremities: positive: Non-tender, Full ROM, Nml appearance, No pedal edema Neurologic/Psychiatric: positive: Oriented x3, CN's nml (2-12), Motor nml, Sensation nml, Mood/affect nml - LABS Result Diagrams: 08/16/17 05:49 08/16/17 05:49 Other Lab Results: Laboratory Results WBC 4.6 x10^3/uL (4.8-10.8) L 08/16/17 05:49 RBC 3.34 10^6/uL (4.20-5.40) L 08/16/17 05:49 Hgb 8.5 g/dL (12.0-16.0) L 08/16/17 05:49 Hct 26.6 % (37.0-47.0) L 08/16/17 05:49 MCV 79.7 fL (81.0-99.0) L 08/16/17 05:49 MCH 25.4 pg (27.0-31.0) L 08/16/17 05:49 MCHC 31.8 g/dL (32.0-36.0) L 08/16/17 05:49 RDW 19.2 % (12.0-15.0) H 08/16/17 05:49 Plt Count 269 10^3/uL (130-450) 08/16/17 05:49 MPV 7.0 fL (7.9-10.8) L 08/16/17 05:49 Neut # (Auto) 2.1 10^3/uL (1.5-6.6) 08/16/17 05:49 Lymph # (Auto) 2.2 10^3/uL (1.5-3.5) 08/16/17 05:49 [place] # (Auto) 0.3 10^3/uL (0.0-1.0) 08/16/17 05:49 Eos # (Auto) 0.0 10^3/uL (0.0-0.7) 08/16/17 05:49 Baso # (Auto) 0.0 10^3/uL (0.0-0.1) 08/16/17 05:49 Absolute Nucleated RBC 0.00 x10^3/uL 08/16/17 05:49 Total Counted 100 08/13/17 10:45 Band Neuts % (Manual) 4 % (0-10) 08/13/17 10:45 Abnorm Lymph % (Manual) 0 % 08/13/17 10:45 Metamyelocytes % 1 % (-0) H 08/13/17 10:45 Nucleated RBC % 0.0 /100WBC 08/16/17 05:49 Neutrophils # (Manual) 16.7 10^3/uL (1.5-6.6) H 08/13/17 10:45 Lymphocytes # (Manual) 2.4 10^3/uL (1.5-3.5) 08/13/17 10:45 Monocytes # (Manual) 1.0 10^3/uL (0.0-1.0) 08/13/17 10:45 Eosinophils # (Manual) 0.0 10^3/uL (0-0.7) 08/13/17 10:45 Basophils # (Manual) 0.0 10^3/uL (0-0.1) 08/13/17 10:45 Differential Comment MANUAL DIFFERENTIAL 08/13/17 10:45 Manual Slide Review Indicated 08/13/17 10:45 RBC Morph Micro Appear 1+ ANISOCYTOSIS (NORMAL) 1+ POLYCHROMASIA (NORMAL) 08/13/17 10:45 RBC Morph Micro Appear 1+ ANISOCYTOSIS (NORMAL) 1+ POLYCHROMASIA (NORMAL) 08/13/17 10:45 PT 10.6 secs (9.9-12.6) 08/13/17 10:45 INR 0.9 (0.8-1.2) 08/13/17 10:45 APTT 30.1 secs (24.9-33.3) 08/13/17 10:45 VBG pH 7.038 (7.31-7.41) L 08/13/17 11:10 VBG pCO2 17.2 mmHg (41-51) L 08/13/17 11:10 VBG pO2 98.4 mmHg (25-47) H 08/13/17 11:10 VBG HCO3 4.5 mmol/L (23-28) L 08/13/17 11:10 VBG Total CO2 5.1 mmol/L (24-29) L 08/13/17 11:10 VBG O2 Saturation 94.0 % (60-80) H 08/13/17 11:10 VBG Base Excess -24.4 mmol/L (-2 - +2) L 08/13/17 11:10 Sodium 138 mmol/L (135-145) 08/16/17 05:49 Potassium 3.0 mmol/L (3.5-5.0) L 08/16/17 05:49 Chloride 106 mmol/L (101-111) 08/16/17 05:49 Carbon Dioxide 27 mmol/L (21-32) 08/16/17 05:49 Anion Gap 5.0 (6-13) L 08/16/17 05:49 BUN 20 mg/dL (6-20) 08/16/17 05:49 Creatinine 0.4 mg/dL (0.4-1.0) 08/16/17 05:49 Estimated GFR (MDRD) 182 (>89) 08/16/17 05:49 Glucose 135 mg/dL (70-100) H 08/16/17 05:49 Glycated Hemoglobin 12.9 % (4.6-6.2) H 08/14/17 05:20 Estim Average Glucose 324 (70-100) H 08/14/17 05:20 Lactic Acid 1.8 mmol/L (0.5-2.2) 08/13/17 18:30 Calcium 7.7 mg/dL (8.5-10.3) L 08/16/17 05:49 Ionized Calcium NO 08/14/17 11:15 Phosphorus 2.4 mg/dL (2.5-4.6) L 08/16/17 05:49 Magnesium 1.9 mg/dL (1.7-2.8) 08/16/17 05:49 Total Bilirubin 0.2 mg/dL (0.2-1.0) 08/16/17 05:49 AST 17 IU/L (10-42) 08/16/17 05:49 ALT 26 IU/L (10-60) 08/16/17 05:49 Alkaline Phosphatase 109 IU/L (42-121) 08/16/17 05:49 Troponin I < 0.04 ng/mL (<0.49) 08/13/17 22:44 Total Protein 5.3 g/dL (6.7-8.2) L 08/16/17 05:49 Albumin 2.6 g/dL (3.2-5.5) L 08/16/17 05:49 Globulin 2.7 g/dL (2.1-4.2) 08/16/17 05:49 Albumin/Globulin Ratio 1.0 (1.0-2.2) 08/16/17 05:49 Lipase 40 U/L (22-51) 08/13/17 10:45 Serum HCG, Qual NEGATIVE 08/13/17 10:45 Urine Color YELLOW 08/13/17 13:30 Urine Clarity HAZY (CLEAR) 08/13/17 13:30 Urine pH 5.5 PH (5.0-7.5) 08/13/17 13:30 Ur Specific [place] 1.015 (1.002-1.030) 08/13/17 13:30 Urine Protein NEGATIVE mg/dL (NEGATIVE) 08/13/17 13:30 Urine Glucose (UA) >=1000 mg/dL (NEGATIVE) H 08/13/17 13:30 Urine Ketones >=80 mg/dL (NEGATIVE) H 08/13/17 13:30 Urine Occult Blood LARGE (NEGATIVE) H 08/13/17 13:30 Urine Nitrite NEGATIVE (NEGATIVE) 08/13/17 13:30 Urine Bilirubin NEGATIVE (NEGATIVE) 08/13/17 13:30 Urine Urobilinogen 0.2 (NORMAL) E.U./dL (NORMAL) 08/13/17 13:30 Ur Leukocyte Esterase NEGATIVE (NEGATIVE) 08/13/17 13:30 Urine RBC 6-10 /HPF (0-5) H 08/13/17 13:30 Urine WBC 0-3 /HPF (0-5) 08/13/17 13:30 Ur Squamous Epith Cells FEW Squamous (<= Few) 08/13/17 13:30 Urine Bacteria Few /HPF (None Seen) 08/13/17 13:30 Ur Microscopic Review INDICATED 08/13/17 13:30 Urine Culture Comments NOT INDICATED 08/13/17 13:30 Urine Opiates Screen NEGATIVE (NEGATIVE) 08/13/17 13:30 Ur Oxycodone Screen NEGATIVE (NEGATIVE) 08/13/17 13:30 Urine Methadone Screen NEGATIVE (NEGATIVE) 08/13/17 13:30 Ur Propoxyphene Screen NEGATIVE (NEGATIVE) 08/13/17 13:30 Ur Barbiturates Screen NEGATIVE (NEGATIVE) 08/13/17 13:30 Ur Tricyclics Screen NEGATIVE (NEGATIVE) 08/13/17 13:30 Ur Phencyclidine Scrn NEGATIVE (NEGATIVE) 08/13/17 13:30 Ur Amphetamine Screen NEGATIVE (NEGATIVE) 08/13/17 13:30 U Methamphetamines Scrn NEGATIVE (NEGATIVE) 08/13/17 13:30 U Benzodiazepines Scrn NEGATIVE (NEGATIVE) 08/13/17 13:30 Urine Cocaine Screen NEGATIVE (NEGATIVE) 08/13/17 13:30 U Cannabinoids Screen NEGATIVE (NEGATIVE) 08/13/17 13:30 Serum Ketones LARGE (NEGATIVE) H 08/13/17 17:42 - DIAGNOSTIC IMAGING Diagnostic Imaging Results: Final report reviewed Diagnostic Imaging Results Comments: CT head Impression: Normal CT head Cervical spine CT Impression: No fracture evident - FOLLOW UP Follow Up: Patient discharged home we will continue her home dose of insulin. She was counseled on need to be compliant with medications. Attempt was made to find her a primary care physician and [place] She will need to set up appointments to see primary care on her own. - TIME SPENT Time Spent in Discharge (Minutes): 40
== END 2017-08-16 13:58 | disposition home or self-care (01) | DRG 638 ==
LOC: EDUNIT# → ED 09:04 → ICU 11:33 → MS2 08-14 18:38
PROVIDERS: ADMIT Internal Medicine; ATTEND Internal Medicine
PROC: 06HY33Z Insertion of Infusion Device into Lower Vein, Percutaneous Approach (ICD-10-PCS; principal; 2017-08-13)
DX: E10.10 Type 1 diabetes mellitus with ketoacidosis without coma (principal); E87.1 Hypo-osmolality and hyponatremia; I96 Gangrene, not elsewhere classified; N17.9 Acute kidney failure, unspecified; E10.52 Type 1 diabetes mellitus with diabetic peripheral angiopathy with gangrene; E87.5 Hyperkalemia; E86.1 Hypovolemia; E86.0 Dehydration; E87.8 Other disorders of electrolyte and fluid balance, not elsewhere classified; T38.3X6A Underdosing of insulin and oral hypoglycemic [antidiabetic] drugs, initial encounter; Z91.138 Patient's unintentional underdosing of medication regimen for other reason; D72.829 Elevated white blood cell count, unspecified; F15.10 Other stimulant abuse, uncomplicated; F19.10 Other psychoactive substance abuse, uncomplicated; F17.210 Nicotine dependence, cigarettes, uncomplicated; F60.9 Personality disorder, unspecified; F31.9 Bipolar disorder, unspecified; F90.9 Attention-deficit hyperactivity disorder, unspecified type; F41.0 Panic disorder [episodic paroxysmal anxiety]; I10 Essential (primary) hypertension; M79.7 Fibromyalgia; G89.29 Other chronic pain; Y92.009 Unspecified place in unspecified non-institutional (private) residence as the place of occurrence of the external cause; R51 Headache; E78.00 Pure hypercholesterolemia, unspecified; I25.2 Old myocardial infarction; Z91.81 History of falling; Z86.14 Personal history of Methicillin resistant Staphylococcus aureus infection; Z59.0 Homelessness; Z89.411 Acquired absence of right great toe; Z89.422 Acquired absence of other left toe(s); Z89.421 Acquired absence of other right toe(s)
CPT/HCPCS: 36415; 70450; 72125; 80048; 80053; 80306; 81001; 81003; 82009; 82803; 82947; 83036; 83605; 83690; 83735; 84100; 84484; 84703; 85025; 85610; 85730; 87040; 87086; 87150; 94640; 99283; 99284; 99291

== ENCOUNTER 2017-08-22 12:54 | Outpatient (CLI) | payer MEDICAID | END 2017-08-22 12:55 | disposition critical access hospital (66) | LOC: EMS 12:54 | PROVIDERS: ATTEND Surgery | DX: R73.09 Other abnormal glucose (principal); R46.4 Slowness and poor responsiveness | CPT/HCPCS: A0425; A0429 ==

== ENCOUNTER 2017-08-22 13:17 | Inpatient (IN) | payer MEDICAID ==
[2017-08-22] MEDS ORDERED: SODIUM CHLORIDE 0.9% 1,000 ML IV ONE (13:37)
[2017-08-22] MEDS ORDERED: KETOROLAC 60 MG/2 ML VIAL IVP STA (13:50)
[2017-08-22] MEDS ORDERED: ONDANSETRON 4 MG/2 ML VIAL IVP STA (13:50)
[2017-08-22 13:55] LABS: BASOPHILS # (AUTO) 0.2 10^3/uL (0.0-0.1); BASOPHILS % (AUTO) 1.4 %; EOSINOPHILS % (AUTO) 0.1 %; HGB - HEMOGLOBIN 13.4 g/dL (12.0-16.0); LYMPHOCYTES # (AUTO) 2.9 10^3/uL (1.5-3.5); LYMPHOCYTES % (AUTO) 25.7 %; MEAN CORPUSCULAR HEMOGLOBIN 25.4 pg (27.0-31.0); MEAN CORPUSCULAR HGB CONC 32.2 g/dL (32.0-36.0); MEAN CORPUSCULAR VOLUME 78.8 fL (81.0-99.0); MEAN PLATELET VOLUME 7.3 fL (7.9-10.8); MONOCYTES # (AUTO) 0.6 10^3/uL (0.0-1.0); MONOCYTES % (AUTO) 5.7 %; NEUTROPHILS # (AUTO) 7.5 10^3/uL (1.5-6.6); NEUTROPHILS % (AUTO) 67.1 %; PLT - PLATELET COUNT 693 10^3/uL (130-450); RED BLOOD COUNT 5.28 10^6/uL (4.20-5.40); RED CELL DISTRIBUTION WIDTH 19.5 % (12.0-15.0); VBG BASE EXCESS 2.6 mmol/L (-2 - +2); VBG PCO2 30.9 mmHg (41-51); VBG PH 7.522 (7.31-7.41); VBG PO2 22.3 mmHg (25-47); VBG TOTAL CO2 25.7 mmol/L (24-29); WHITE BLOOD COUNT 11.2 x10^3/uL (4.8-10.8)
--- NOTE | 2017-08-22 13:58 | ED Physician Documentation ---
PD HPI NVD - Stated complaint Stated Complaint: DIABETIC ISSUSE - Chief complaint Chief Complaint: Abd Pain - History obtained from History obtained from: Patient, EMS - History of Present Illness Timing - onset: How many days ago (For the last 3 days she has been feeling like she is going DKA with a lot of vomiting and cannot keep anything down, said decreased bowel movements and high blood sugars despite taking her insulin. She feels short of breath.) Review of Systems Ten Systems: 10 systems reviewed and negative Constitutional: reports: Fatigue. denies: Fever, Chills Nose: denies: Rhinorrhea / runny nose, Congestion Cardiac: denies: Chest pain / pressure, Palpitations Respiratory: reports: Dyspnea. 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 08/05/17 08/13/17 Cilostazol [Pletal] 100 mg PO BID #60 tablet 08/05/17 08/13/17 DULoxetine [Cymbalta] 60 mg PO DAILY #30 capsule 08/05/17 08/13/17 Gabapentin [Neurontin] 900 mg PO TID #90 capsule 08/05/17 08/13/17 Ibuprofen [Motrin] 600 mg PO Q6HR PRN #60 tablet 08/05/17 08/13/17 Insulin Aspart [Novolog Flexpen] 25 unit SUBQ ACHS #5 each 08/05/17 08/13/17 Insulin Glargine [Lantus Solostar] 70 unit SUBQ DAILY #10 pen 08/05/17 08/13/17 Metoprolol Succinate [Toprol Xl] 25 mg PO BID #60 tablet 08/05/17 08/13/17 Oxybutynin [Ditropan] 5 mg PO BID #60 tablet 08/05/17 08/13/17 cloNIDine [Catapres] 0.1 mg PO BID #60 tablet 08/05/17 08/13/17 diltiaZEM CD [Cardizem Cd] 120 mg PO DAILY #30 capsule 08/05/17 08/13/17 traMADol [Ultram] 50 mg PO Q6H PRN #10 tablet 08/05/17 08/13/17 Blood Sugar Diagnostic [Glucose 1 each [facility] #120 strip 08/16/17 Test Strip] LORazepam [Ativan] 1 mg PO QPM PRN #7 tablet 08/16/17 Lidocaine HCl [Lidocaine HCl 15 ml MM TIDWM #1 solution 08/16/17 Viscous] [place], Disposable [Easy Touch 1 each [facility] #120 dis.needle 08/16/17 Hypodermic Needle] Nystatin Cream [Mycostatin Cream] 15 gm TOP BID #1 tube 08/16/17 Syringe, Disposable, 60 ml 1 each [facility] #120 disp.syrin 08/16/17 [Syringe] - Allergies Allergies/Adverse Reactions: Allergies Allergy/AdvReac Type Severity Reaction Status Date / Time codeine Allergy Hives Verified 08/22/17 13:28 hydrocodone Allergy Hives Verified 08/22/17 13:28 morphine Allergy Itching Verified 08/22/17 13:28 milk AdvReac Cramps Verified 08/22/17 13:28 nitrofurantoin AdvReac Headache Verified 08/22/17 13:28 [From Macrobid] PAPER TAPE AdvReac Unknown Uncoded 08/01/17 17:52 - Social History Does the pt smoke?: Yes Smoking Status: Current every day smoker Does the pt drink ETOH?: No Does the pt have substance abuse?: Yes - Family History Family history: reports: Non contributory - Immunizations Immunizations are current?: Yes - POLST Patient has POLST: No POLST Status: Full Code PD ED PE NORMAL - Vitals Vital signs reviewed: Yes - General General: Alert and oriented X 3, No acute distress - HEENT HEENT: PERRL, EOMI - Neck Neck: Supple, no meningeal sign, No bony TTP - Cardiac Cardiac: RRR, No murmur - Respiratory Respiratory: No respiratory distress, Clear bilaterally - Abdomen Abdomen: Soft, Non tender - Back Back: No CVA TTP, No spinal TTP - Derm Derm: Normal color, Warm and dry - Extremities Extremities: Other (She recently had a few toes removed from the right foot and the foot looks fine without evidence of infection.) - Neuro Neuro: Alert and oriented X 3, Normal speech Results - Vitals Vitals: Vital Signs - 24 hr 08/22/17 13:21 Temperature 36.6 C Heart Rate 68 Respiratory 18 Rate Blood Pressure 140/96 H O2 Saturation 100 Oxygen O2 Source [Without Activity] Room air O2 Source Room air - Labs Labs: Laboratory Tests 08/22/17 08/22/17 08/22/17 13:39 13:39 13:39 WBC 11.2 H RBC 5.28 Hgb 13.4 Hct 41.6 MCV 78.8 L MCH 25.4 L MCHC 32.2 RDW 19.5 H Plt Count 693 H MPV 7.3 L Neut # (Auto) 7.5 H Lymph # (Auto) 2.9 [place] # (Auto) 0.6 Eos # (Auto) 0.0 Baso # (Auto) 0.2 H Absolute Nucleated RBC 0.00 Nucleated RBC % 0.0 VBG pH 7.522 H VBG pCO2 30.9 L VBG pO2 22.3 L VBG HCO3 24.8 VBG Total CO2 25.7 VBG O2 Saturation 44.1 L VBG Base Excess 2.6 H Sodium 126 L Potassium 4.1 Chloride 81 L Carbon Dioxide 24 Anion Gap 21.0 H BUN 35 H Creatinine 1.3 H Estimated GFR (MDRD) 47 L Glucose 385 H Calcium 10.0 Magnesium 2.3 Total Bilirubin 1.2 H AST 21 ALT 40 Alkaline Phosphatase 161 H Total Protein 9.7 H Albumin 5.1 Globulin 4.6 H Albumin/Globulin Ratio 1.1 Lipase 31 Serum HCG, Qual NEGATIVE Ethyl Alcohol < 5.0 Serum Ketones SMALL H Procedures - General procedure General procedure: She is notoriously difficult for IV access, I tried to the external jugulars but really could even get a flash. I personally placed a long 22-gauge IV using real time U/S guideance in the right deep brachial vein after ChloraPrep which flushed and jose eduardo well. PD MEDICAL DECISION MAKING - ED course ED course: This is a 36-year-old homeless woman with poorly controlled type 1 diabetes presents with mild DKA. She started on an insulin drip and a call was placed to the hospitalist for admission at 2:23 PM. - Sepsis Event Vital Signs: Vital Signs - 24 hr 08/22/17 13:21 Temperature 36.6 C Heart Rate 68 Respiratory 18 Rate Blood Pressure 140/96 H O2 Saturation 100 Oxygen O2 Source [Without Activity] Room air O2 Source Room air Departure - Departure Disposition: ED Place in Observation Clinical Impression: DKA, type 1 Qualifiers: Diabetes mellitus complication detail: without coma Qualified Code(s): E10.10 - Type 1 diabetes mellitus with ketoacidosis without coma Condition: Serious
[2017-08-22 13:59] LABS: KETONES, SERUM (ACETEST) SMALL (NEGATIVE)
[2017-08-22 14:11] LABS: ALBUMIN 5.1 g/dL (3.2-5.5); ALBUMIN/GLOBULIN RATIO 1.1 (1.0-2.2); ALKALINE PHOSPHATASE 161 IU/L (42-121); ALT ALANINE AMINOTRANSFERASE 40 IU/L (10-60); AST ASPARTATE AMINOTRANSFERASE 21 IU/L (10-42); BILIRUBIN,TOTAL 1.2 mg/dL (0.2-1.0); BUN - BLOOD UREA NITROGEN 35 mg/dL (6-20); CARBON DIOXIDE - CO2 24 mmol/L (21-32); CHLORIDE 81 mmol/L (101-111); CREATININE 1.3 mg/dL (0.4-1.0); GFR - MDRD 47 (>89); GLUCOSE 385 mg/dL (70-100); LIPASE 31 U/L (22-51); MAGNESIUM 2.3 mg/dL (1.7-2.8); SODIUM 126 mmol/L (135-145); TOTAL PROTEIN 9.7 g/dL (6.7-8.2)
[2017-08-22 14:13] LABS: HCG,QUALITATIVE BLOOD NEGATIVE
[2017-08-22] MEDS ORDERED: INSULIN REGULAR HUMAN 100 UNIT in SODIUM CHLORIDE 0.9% 100ML 99 ML IV STA (14:19)
[2017-08-22] MEDS ORDERED: ACETAMINOPHEN 1,000 MG/100 ML 100 ML IV STA (14:23)
[2017-08-22] MEDS ORDERED: METOCLOPRAMIDE 10 MG/2 ML VIAL IVP STA (14:23)
[2017-08-22] MEDS: ELECTROLYTE-A SOLUTION 1,000 ML IV SCH ×3 (14:52→19:35)
[2017-08-22 16:16] LABS: MUDS CUTOFF CONCENTRATIONS CUTOFF CONC BELOW:
[2017-08-22 16:19] LABS: GLUCOSE, URINE (UA) >=1000 mg/dL (NEGATIVE); KETONES,URINE (UA) 40 mg/dL (NEGATIVE); LEUKOCYTE ESTERASE, URINE NEGATIVE (NEGATIVE); NITRITE,URINE NEGATIVE (NEGATIVE); OCCULT BLOOD,URINE NEGATIVE (NEGATIVE); PH,URINE 5.5 PH (5.0-7.5); PROTEIN,URINE NEGATIVE (NEGATIVE); UROBILINOGEN,URINE 0.2 (NORMAL) E.U./dL (NORMAL)
[2017-08-22 16:32] LABS: AMPHETAMINE SCREEN,URINE NEGATIVE (NEGATIVE); BENZODIAZEPINES SCREEN, URINE NEGATIVE (NEGATIVE); BILIRUBIN,URINE NEGATIVE (NEGATIVE); CLARITY,URINE CLEAR (CLEAR); COCAINE SCREEN URINE NEGATIVE (NEGATIVE); ICTOTEST,URINE NEGATIVE; METHADONE SCREEN, URINE NEGATIVE (NEGATIVE); METHAMPHETAMINES SCREEN, URINE NEGATIVE (NEGATIVE); OPIATE SCREEN, URINE NEGATIVE (NEGATIVE); OXYCODONE SCREEN, URINE NEGATIVE (NEGATIVE); PROPOXYPHENE SCREEN, URINE NEGATIVE (NEGATIVE); TRICYCLIC ANTIDEPRESSANT,URINE NEGATIVE (NEGATIVE)
[2017-08-22] MEDS ORDERED: SODIUM CHLORIDE FLUSH 0.9% 10 ML SYRINGE IVP PRN (16:40)
--- NOTE | 2017-08-22 16:50 | Discharge Plan ---
Discharge Plan Disposition: 07 Against Medical Advice Condition: Poor No Smoking: If you smoke, Please STOP! Call for help.
[2017-08-22] MEDS ORDERED: SODIUM CHLORIDE 0.9% 1,000 ML IV SCH (17:00)
[2017-08-22] MEDS: SODIUM CHLORIDE FLUSH 0.9% 10 ML SYRINGE IVP SCH (17:30)
[2017-08-22] MEDS ORDERED: INSULIN REGULAR HUMAN 100 UNIT in SODIUM CHLORIDE 0.9% 100ML 99 ML IV SCH ×2 (18:32→21:16)
[2017-08-22] MEDS ORDERED: DEXTROSE 5%-0.9% NACL 1,000 ML IV SCH (19:00)
[2017-08-22 19:02] LABS: VBG PCO2 26.1 mmHg (41-51); VBG PH 7.588 (7.31-7.41); VBG PO2 107.9 mmHg (25-47); VBG TOTAL CO2 25.2 mmol/L (24-29)
[2017-08-22 19:03] LABS: VBG BASE EXCESS 3.4 mmol/L (-2 - +2)
[2017-08-22] MEDS: ONDANSETRON 4 MG/2 ML VIAL IVP PRN (19:03)
[2017-08-22 19:09] LABS: CALCIUM 8.7 mg/dL (8.5-10.3); MAGNESIUM 2.1 mg/dL (1.7-2.8)
[2017-08-22] MEDS: traMADol 50 MG TABLET PO PRN (19:45)
[2017-08-22] MEDS: cloNIDine 0.1 MG TABLET PO SCH (20:13)
[2017-08-22] MEDS: AMITRIPTYLINE 25 MG TABLET PO SCH (20:13)
[2017-08-22] MEDS: OXYBUTYNIN 5MG TABLET PO SCH (20:13)
[2017-08-22] MEDS: METOPROLOL SUCCINATE 25 MG TABLET PO SCH (20:13)
[2017-08-22 20:55] LABS: BUN - BLOOD UREA NITROGEN 33 mg/dL (6-20); CALCIUM 8.3 mg/dL (8.5-10.3); CARBON DIOXIDE - CO2 26 mmol/L (21-32); CHLORIDE 93 mmol/L (101-111); CREATININE 0.9 mg/dL (0.4-1.0); GFR - MDRD 71 (>89); GLUCOSE 129 mg/dL (70-100); SODIUM 129 mmol/L (135-145)
[2017-08-22 21:04] LABS: KETONES, SERUM (ACETEST) SMALL (NEGATIVE)
[2017-08-22] MEDS: CILOSTAZOL 100 MG TABLET PO SCH (21:05)
[2017-08-22] MEDS: LORazepam 0.5 MG TABLET PO PRN (21:05)
[2017-08-22] MEDS: GABAPENTIN 300 MG CAPSULE PO SCH (21:06)
[2017-08-22] MEDS ORDERED: D5.45NS W/20 MEQ KCL 1,000 ML IV SCH (22:00)
[2017-08-22] MEDS: INSULIN GLARGINE 300 UNIT/3 ML PEN SUBQ SCH (22:45)
[2017-08-22] MEDS ORDERED: INSULIN GLARGINE 300 UNIT/3 ML PEN SUBQ ONE (22:47)
[2017-08-22 22:50] LABS: KETONES, SERUM (ACETEST) SMALL (NEGATIVE)
[2017-08-22 22:51] LABS: BUN - BLOOD UREA NITROGEN 31 mg/dL (6-20); CALCIUM 7.7 mg/dL (8.5-10.3); CARBON DIOXIDE - CO2 27 mmol/L (21-32); CHLORIDE 93 mmol/L (101-111); CREATININE 0.9 mg/dL (0.4-1.0); GFR - MDRD 71 (>89); GLUCOSE 115 mg/dL (70-100); SODIUM 128 mmol/L (135-145)
[2017-08-22] MEDS ORDERED: POTASSIUM CHLORIDE 20 MEQ TABLET PO ONE (23:56)
[2017-08-23] MEDS: POTASSIUM CHLORIDE 20 MEQ/15 ML UDC PO SCH ×2 (00:27→05:42)
[2017-08-23] MEDS: SODIUM CHLORIDE FLUSH 0.9% 10 ML SYRINGE IVP SCH ×3 (00:27→19:04)
[2017-08-23] MEDS ORDERED: D5.45NS W/20 MEQ KCL 1,000 ML IV SCH (01:20)
--- NOTE | 2017-08-23 01:33 | HISTORY & PHYSICAL EXAMINATION ---
DATE OF SERVICE: 08/22/2017 Physician: Jayshree Vides MD HISTORY OF PRESENT ILLNESS: This is a 36-year-old white female with a history of methamphetamine abuse, personality disorder, type 1 diabetes with frequent DKA admissions, CAD, PVD, osteomyelitis requiring several separate amputations of different toes , the most recent about 2 months ago. The patient presents with 2-3 days of nausea and vomiting and unable to keep anything down. She is not lethargic as she normally is with DKA. She was found to have positive anion gap and positive serum ketones and is being admitted for DKA exacerbation once again. MEDICATIONS AT HOME Probably none; she is scheduled to be on: 1. Motrin 600 mg q. 6 hours p.r.n. 2. NovoLog insulin 12 units t.i.d. 3. NovoLog insulin 25 a.c. and at bedtime. 4. Glargine insulin 70 units every a.m. 5. Nystatin cream. 6. Amitriptyline 25 mg daily. 7. Baby aspirin daily. 8. Pletal 100 mg daily. 9. Clonidine 0.1 mg b.i.d. 10. Diltiazem CD 120 mg daily. 11. Cymbalta 60 mg daily. 12. Gabapentin 900 mg t.i.d. 13. Lorazepam 1 mg q.p.m. 14. Toprol-XL 25 mg b.i.d. 15. Oxybutynin 5 mg b.i.d. 16. Tramadol 50 mg q.6 h. p.r.n. pain. ALLERGIES 1. CODEINE. 2. HYDROCODONE. 3. MORPHINE. 4. MILK. 5. NITROFURANTOIN. 6. PAPER TAPE. SOCIAL HISTORY: The patient is homeless. She smokes cigarettes, rarely drinks alcohol, is an admitted methamphetamine abuser and in the past had other drug abuse. PAST MEDICAL HISTORY 1. DKA. 2. Osteomyelitis. 3. CAD. 4. PVD. 5. Medicine noncompliance. 6. Personality disorder. 7. Drug abuse history. REVIEW OF SYSTEMS: A comprehensive review of systems was performed, and the pertinent positives are in the HPI, the rest are negative. PHYSICAL EXAMINATION GENERAL: She is awake. VITAL SIGNS: Blood pressure 133/74, pulse of 118 in sinus rhythm, afebrile, room air saturation 97%. HEENT: Reveals dry oral mucosa. Edentulous. NECK: Without JVD in a supine position. No carotid bruits. LUNGS: Clear. HEART: Sounds normal, tachycardic. ABDOMEN: Soft, decreased bowel sounds, nontender to light palpation. No organomegaly. EXTREMITIES: No clubbing, cyanosis or edema. She has several toes amputated bilaterally. NEUROLOGIC: Intact. LABORATORY/DATA: Serum ketones are small and on repeat are moderate. Sodium 126, potassium 4.1, BUN 35, creatinine 1.3, magnesium 2.3, bilirubin 1.2 , alkaline phosphatase 161, normal AST and ALT. Normal lipase and LFTs. White blood count 11.2, hemoglobin 13.4, platelet count 693. Toxicology today was negative. Urinalysis : High ketones and glucose but no evidence of urinary tract infection. ELECTROCARDIOGRAM: Sinus tachycardia, right axis deviation, right atrial and left atrial enlargement, possible LVH. IMPRESSION/DIAGNOSES 1. Diabetic ketoacidosis. 2. Methamphetamine abuse. 3. Coronary artery disease. 4. Peripheral vascular disease. 5. Noncompliance with medications. PLAN 1. Place the patient in the ICU with DKA protocol. 2. Start a diet with clear liquids and advance as tolerated as the nausea and vomiting are improved with her DKA treatment. 3. Consider Reglan, as she may have diabetic gastroparesis with frequent bouts of this. 4. IV fluids. CODE STATUS: FULL CODE. DEEP VENOUS THROMBOSIS PROPHYLAXIS: SCDs. ATTESTATION: This patient is expected to be discharged or transferred to another facility within 96 hours: Yes. TD: 08/22/2017 20:03 BRYANNA
[2017-08-23 05:29] LABS: BASOPHILS % (AUTO) 0.3 %; EOSINOPHILS # (AUTO) 0.1 10^3/uL (0.0-0.7); EOSINOPHILS % (AUTO) 1.1 %; HGB - HEMOGLOBIN 9.5 g/dL (12.0-16.0); LYMPHOCYTES # (AUTO) 2.5 10^3/uL (1.5-3.5); MEAN CORPUSCULAR HEMOGLOBIN 25.3 pg (27.0-31.0); MEAN CORPUSCULAR HGB CONC 31.7 g/dL (32.0-36.0); MEAN CORPUSCULAR VOLUME 79.9 fL (81.0-99.0); MEAN PLATELET VOLUME 6.5 fL (7.9-10.8); MONOCYTES # (AUTO) 0.6 10^3/uL (0.0-1.0); MONOCYTES % (AUTO) 9.8 %; NEUTROPHILS # (AUTO) 2.7 10^3/uL (1.5-6.6); NEUTROPHILS % (AUTO) 45.8 %; PLT - PLATELET COUNT 440 10^3/uL (130-450); RED BLOOD COUNT 3.76 10^6/uL (4.20-5.40); RED CELL DISTRIBUTION WIDTH 19.5 % (12.0-15.0); WHITE BLOOD COUNT 5.9 x10^3/uL (4.8-10.8)
[2017-08-23 05:33] LABS: KETONES, SERUM (ACETEST) SMALL (NEGATIVE)
[2017-08-23 05:37] LABS: BUN - BLOOD UREA NITROGEN 25 mg/dL (6-20); CALCIUM 7.7 mg/dL (8.5-10.3); CARBON DIOXIDE - CO2 28 mmol/L (21-32); CHLORIDE 101 mmol/L (101-111); CREATININE 0.7 mg/dL (0.4-1.0); GFR - MDRD 95 (>89); GLUCOSE 114 mg/dL (70-100); SODIUM 135 mmol/L (135-145)
[2017-08-23] MEDS: GABAPENTIN 300 MG CAPSULE PO SCH ×3 (05:42→20:54)
[2017-08-23] MEDS: traMADol 50 MG TABLET PO PRN ×2 (05:42→14:22)
[2017-08-23 05:44] LABS: VBG PH 7.404 (7.31-7.41)
[2017-08-23] MEDS: D5.45NS W/20 MEQ KCL 1,000 ML IV SCH ×2 (09:37→21:49)
[2017-08-23] MEDS: ASPIRIN EC 81 MG TABLET PO SCH (09:38)
[2017-08-23] MEDS: OXYBUTYNIN 5MG TABLET PO SCH ×2 (09:38→20:54)
[2017-08-23] MEDS: CALCIUM CITRATE 250 MG TABLET PO SCH ×4 (09:38→20:52)
[2017-08-23] MEDS: METOPROLOL SUCCINATE 25 MG TABLET PO SCH ×2 (09:38→20:53)
[2017-08-23] MEDS: DULoxetine 30 MG CAPSULE PO SCH (09:38)
[2017-08-23] MEDS: diltiaZEM CD 120 MG CAPSULE PO SCH (09:38)
[2017-08-23] MEDS: cloNIDine 0.1 MG TABLET PO SCH ×2 (09:39→20:53)
[2017-08-23] MEDS: FAMOTIDINE 20 MG TABLET PO SCH (09:39)
[2017-08-23] MEDS: INSULIN GLARGINE 300 UNIT/3 ML PEN SUBQ SCH (09:40)
[2017-08-23] MEDS: NEUTRA-PHOS 250 MG TABLET PO SCH ×3 (11:05→19:03)
[2017-08-23] MEDS: IBUPROFEN 600 MG TABLET PO PRN (11:06)
[2017-08-23] MEDS: CILOSTAZOL 100 MG TABLET PO SCH ×2 (11:06→20:54)
[2017-08-23] MEDS ORDERED: LOPERAMIDE 2 MG CAPSULE PO PRN (14:00)
[2017-08-23] MEDS: ACETAMINOPHEN 325 MG TABLET PO PRN (15:06)
--- NOTE | 2017-08-23 17:50 | PROVIDER PROGRESS NOTE ---
Assessment/Plan - Problem List (1) DKA (diabetic ketoacidoses) Assessment/Plan: Resolved, off Insulin drip. Will use Lantus and ss Insulin. (2) Diarrhea Assessment/Plan: Will continue liquid diet, not advance to solids. Will check stool for C diff, O & P, cultures and give Imodium. - Current Meds Current Meds: Current Medications Generic Name Dose Route Start Last Admin Trade Name Freq PRN Reason Stop Dose Admin Acetaminophen 650 mg 08/22/17 16:40 08/23/17 15:06 Tylenol PO 650 mg Q4HR PRN Administration Pain 1 to 4 Amitriptyline HCl 25 mg 08/22/17 21:00 08/22/17 20:13 Elavil PO 25 mg HS SYLVIA Administration Aspirin 81 mg 08/23/17 09:00 08/23/17 09:38 Ecotrin PO 81 mg DAILY SYLVIA Administration Calcium Citrate 500 mg 08/23/17 09:00 08/23/17 14:22 PO 08/23/17 21:01 500 mg QID SYLVIA Administration Protocol Cilostazol 100 mg 08/22/17 21:00 08/23/17 11:06 Pletal PO 100 mg BID SYLVIA Administration Clonidine HCl 0.1 mg 08/22/17 21:00 08/23/17 09:39 Catapres PO 0.1 mg BID SYLVIA Administration Diltiazem HCl 120 mg 08/23/17 09:00 08/23/17 09:38 Cardizem Cd PO 120 mg DAILY SYLVIA Administration Duloxetine HCl 60 mg 08/23/17 09:00 08/23/17 09:38 Cymbalta PO 60 mg DAILY SYLVIA Administration Famotidine 20 mg 08/23/17 09:00 08/23/17 09:39 Pepcid PO 20 mg DAILY SYLVIA Administration Gabapentin 900 mg 08/22/17 22:00 08/23/17 14:22 Neurontin PO 900 mg TID SYLVIA Administration Potassium Chloride/Dextrose/Sod Cl 1,000 mls @ 80 mls/hr 08/23/17 08:55 08/23 09:37 D5.45ns W/20 Meq Kcl IV 80 mls/hr .[id number] SYLVIA Administration Ibuprofen 600 mg 08/22/17 16:40 08/23/17 11:06 Motrin PO 600 mg Q6HR PRN Administration Pain 1 to 4 Insulin Glargine 70 unit 08/22/17 22:20 08/23/17 09:40 Lantus Solostar SUBQ 70 unit DAILY SYLVIA Administration Lorazepam 1 mg 08/22/17 16:45 08/22/17 21:05 Ativan PO 1 mg QPM PRN Administration Insomnia Metoprolol Succinate 25 mg 08/22/17 21:00 08/23/17 09:38 Toprol Xl PO 25 mg BID SYLVIA Administration Ondansetron HCl 4 mg 08/22/17 16:40 08/22/17 19:03 Zofran Inj IVP 4 mg Q6HR PRN Administration Nausea / Vomiting Oxybutynin Chloride 5 mg 08/22/17 21:00 08/23/17 09:38 Ditropan PO 5 mg BID SYLVIA Administration Sodium Chloride 10 ml 08/22/17 17:00 08/23/17 09:39 Normal Saline Flush 0.9% IVP 10 ml 0100,0900,1700 SYLVIA Administration Sodium Phosphate 250 mg 08/23/17 11:00 08/23/17 14:21 K-Phos Neutral PO 08/24/17 19:00 250 mg TIDWM SYLVIA Administration Tramadol HCl 50 mg 08/22/17 16:45 08/23/17 14:22 Ultram PO 50 mg Q6H PRN Administration MOD PAIN 5-7 - Lab Result Fish Bone Diagrams: 08/23/17 05:04 08/23/17 05:04 - Additional Planning My Orders: My Active Orders 08/22/17 16:50 Discharge [RC] .ONCE Initiate Discharge Checklist [RC] .ONCE 08/22/17 17:00 Sodium Chloride Flush 0.9% [Normal Saline Flush 0.9%] 10 ml IVP 0100,0900, 1700 08/22/17 18:32 Blood Glucose POC [RC] 0800,1200,1700,2100 Initiate Hypoglycemia Protocol [RC] .protocol 08/22/17 21:00 Amitriptyline [Elavil] 25 mg PO HS Cilostazol [Pletal] 100 mg PO BID Metoprolol Succinate [Toprol Xl] 25 mg PO BID Oxybutynin [Ditropan] 5 mg PO BID cloNIDine [Catapres] 0.1 mg PO BID 08/22/17 22:00 Gabapentin [Neurontin] 900 mg PO TID 08/23/17 C. DIFF BY PCR [RAPID] Urgent CUL, STOOL [CULTURE, STOOL] [RM] Urgent 08/23/17 08:55 D5.45ns W/20 Meq KCl 1,000 ml IV 80 mls/hr 08/23/17 09:00 Aspirin EC [Ecotrin] 81 mg PO DAILY Calcium Citrate 500 mg PO QID DULoxetine [Cymbalta] 60 mg PO DAILY Famotidine [Pepcid] 20 mg PO DAILY diltiaZEM CD [Cardizem Cd] 120 mg PO DAILY 08/23/17 11:00 Neutra-Phos [K-Phos Neutral] 250 mg PO TIDWM 08/23/17 14:00 Loperamide [Imodium] 2 mg PO QID PRN 08/23/17 16:30 OVA AND PARASITE [REFLAB] Urgent 08/24/17 05:00 BMP, RFLX TO IONIZED CA IF [CHEM] DAILYLAB BMP, RFLX TO IONIZED CA IF [CHEM] DAILYLAB PHOSPHORUS [CHEM] DAILYLAB 08/25/17 05:00 PHOSPHORUS [CHEM] DAILYLAB 08/26/17 05:00 PHOSPHORUS [CHEM] DAILYLAB Subjective - Subjective Patient Reports: Other (Had diarrhea) Nursing Reports: Other (Liquidy yellow diarrhea) Objective Vital Signs: Vital Signs - 24 hr 08/22/17 08/22/17 08/22/17 18:00 19:00 19:31 Temperature 37.3 C Heart Rate [ 124 H 118 H 125 H Monitoring electrodes] Respiratory 18 16 20 Rate Blood Pressure 149/92 H 133/74 H [Right Brachial artery] O2 Saturation 97 08/22/17 08/22/17 08/22/17 20:00 20:04 21:00 Temperature Heart Rate [ 125 H 107 H Monitoring electrodes] Respiratory 18 18 Rate Blood Pressure 133/89 H 139/94 H 137/96 H [Right Brachial artery] O2 Saturation 98 96 08/22/17 08/22/17 08/23/17 22:00 23:00 00:00 Temperature 36.6 C Heart Rate [ 108 H 108 H 104 H Monitoring electrodes] Respiratory 16 20 20 Rate Blood Pressure 132/82 H 113/64 105/66 [Right Brachial artery] O2 Saturation 97 96 97 08/23/17 08/23/17 08/23/17 01:00 02:00 03:00 Temperature Heart Rate [ 99 95 91 Monitoring electrodes] Respiratory 15 17 17 Rate Blood Pressure 113/75 112/85 H 108/80 [Right Brachial artery] O2 Saturation 96 98 98 08/23/17 08/23/17 08/23/17 04:00 05:00 06:00 Temperature 36.2 C L Heart Rate [ 94 88 99 Monitoring electrodes] Respiratory 19 16 17 Rate Blood Pressure 103/78 88/61 L 108/78 [Right Brachial artery] O2 Saturation 98 99 99 08/23/17 08/23/17 08/23/17 06:58 08:00 09:00 Temperature 36.8 C Heart Rate [ 100 92 104 H Monitoring electrodes] Respiratory 20 22 22 Rate Blood Pressure 112/80 110/79 90/52 L [Right Brachial artery] O2 Saturation 99 98 99 08/23/17 08/23/17 08/23/17 10:00 11:00 12:00 Temperature 36.7 C Heart Rate [ 103 H 102 H 110 H Monitoring electrodes] Respiratory 24 22 23 Rate Blood Pressure 112/92 H 130/91 H [Right Brachial artery] O2 Saturation 98 99 99 08/23/17 08/23/17 08/23/17 13:00 14:00 15:00 Temperature Heart Rate [ 105 H 83 94 Monitoring electrodes] Respiratory 22 22 21 Rate Blood Pressure 112/74 103/71 121/81 H [Right Brachial artery] O2 Saturation 99 99 98 08/23/17 08/23/17 16:00 17:00 Temperature 36.6 C Heart Rate [ 93 90 Monitoring electrodes] Respiratory 22 19 Rate Blood Pressure 125/90 H 111/77 [Right Brachial artery] O2 Saturation 97 98 Oxygen O2 Source Room air I&O (Last 24 Hrs): Intake and Output Totals x24h 08/21/17 08/22/17 08/23/17 23:59 23:59 23:59 Intake Total 3680.833 4960 Output Total 500 1750 Balance 3180.833 3210 General: Alert HEENT: Mucous membr. moist/pink Neck: Supple Cardiovascular: Regular rate Respiratory: No respiratory distress Abdomen: Soft Extremities: Other (Several toes amputated.) - Results Results: Laboratory Results WBC 5.9 x10^3/uL (4.8-10.8) 08/23/17 05:04 RBC 3.76 10^6/uL (4.20-5.40) L 08/23/17 05:04 Hgb 9.5 g/dL (12.0-16.0) L 08/23/17 05:04 Hct 30.0 % (37.0-47.0) L 08/23/17 05:04 MCV 79.9 fL (81.0-99.0) L 08/23/17 05:04 MCH 25.3 pg (27.0-31.0) L 08/23/17 05:04 MCHC 31.7 g/dL (32.0-36.0) L 08/23/17 05:04 RDW 19.5 % (12.0-15.0) H 08/23/17 05:04 Plt Count 440 10^3/uL (130-450) 08/23/17 05:04 MPV 6.5 fL (7.9-10.8) L 08/23/17 05:04 Neut # (Auto) 2.7 10^3/uL (1.5-6.6) 08/23/17 05:04 Lymph # (Auto) 2.5 10^3/uL (1.5-3.5) 08/23/17 05:04 Bureau # (Auto) 0.6 10^3/uL (0.0-1.0) 08/23/17 05:04 Eos # (Auto) 0.1 10^3/uL (0.0-0.7) 08/23/17 05:04 Baso # (Auto) 0.0 10^3/uL (0.0-0.1) 08/23/17 05:04 Absolute Nucleated RBC 0.00 x10^3/uL 08/23/17 05:04 Nucleated RBC % 0.1 /100WBC 08/23/17 05:04 VBG pH 7.404 (7.31-7.41) 08/23/17 05:04 VBG pCO2 26.1 mmHg (41-51) L 08/22/17 18:55 VBG pO2 107.9 mmHg (25-47) H 08/22/17 18:55 VBG HCO3 24.4 mmol/L (23-28) 08/22/17 18:55 VBG Total CO2 25.2 mmol/L (24-29) 08/22/17 18:55 VBG O2 Saturation 97.1 % (60-80) H 08/22/17 18:55 VBG Base Excess 3.4 mmol/L (-2 - +2) H 08/22/17 18:55 Ionized Calcium 1.05 mmol/L (1.15-1.33) L 08/23/17 05:04 Sodium 135 mmol/L (135-145) 08/23/17 05:04 Potassium 3.4 mmol/L (3.5-5.0) L 08/23/17 05:04 Chloride 101 mmol/L (101-111) 08/23/17 05:04 Carbon Dioxide 28 mmol/L (21-32) 08/23/17 05:04 Anion Gap 6.0 (6-13) 08/23/17 05:04 BUN 25 mg/dL (6-20) H 08/23/17 05:04 Creatinine 0.7 mg/dL (0.4-1.0) 08/23/17 05:04 Estimated GFR (MDRD) 95 (>89) 08/23/17 05:04 Glucose 114 mg/dL (70-100) H 08/23/17 05:04 Calcium 7.7 mg/dL (8.5-10.3) L 08/23/17 05:04 Ionized Calcium YES 08/23/17 05:04 Phosphorus 2.0 mg/dL (2.5-4.6) L 08/23/17 05:04 Magnesium 2.1 mg/dL (1.7-2.8) 08/23/17 05:04 Total Bilirubin 1.2 mg/dL (0.2-1.0) H 08/22/17 13:39 AST 21 IU/L (10-42) 08/22/17 13:39 ALT 40 IU/L (10-60) 08/22/17 13:39 Alkaline Phosphatase 161 IU/L (42-121) H 08/22/17 13:39 Total Protein 9.7 g/dL (6.7-8.2) H 08/22/17 13:39 Albumin 5.1 g/dL (3.2-5.5) 08/22/17 13:39 Globulin 4.6 g/dL (2.1-4.2) H 08/22/17 13:39 Albumin/Globulin Ratio 1.1 (1.0-2.2) 08/22/17 13:39 Lipase 31 U/L (22-51) 08/22/17 13:39 Serum HCG, Qual NEGATIVE 08/22/17 13:39 Urine Color YELLOW 08/22/17 16:10 Urine Clarity CLEAR (CLEAR) 08/22/17 16:10 Urine pH 5.5 PH (5.0-7.5) 08/22/17 16:10 Ur Specific [place] 1.020 (1.002-1.030) 08/22/17 16:10 Urine Protein NEGATIVE mg/dL (NEGATIVE) 08/22/17 16:10 Urine Glucose (UA) >=1000 mg/dL (NEGATIVE) H 08/22/17 16:10 Urine Ketones 40 mg/dL (NEGATIVE) H 08/22/17 16:10 Urine Occult Blood NEGATIVE (NEGATIVE) 08/22/17 16:10 Urine Nitrite NEGATIVE (NEGATIVE) 08/22/17 16:10 Urine Bilirubin NEGATIVE (NEGATIVE) 08/22/17 16:10 Urine Urobilinogen 0.2 (NORMAL) E.U./dL (NORMAL) 08/22/17 16:10 Ur Leukocyte Esterase NEGATIVE (NEGATIVE) 08/22/17 16:10 Ur Microscopic Review NOT INDICATED 08/22/17 16:10 Urine Culture Comments NOT INDICATED 08/22/17 16:10 Urine Opiates Screen NEGATIVE (NEGATIVE) 08/22/17 16:10 Ur Oxycodone Screen NEGATIVE (NEGATIVE) 08/22/17 16:10 Urine Methadone Screen NEGATIVE (NEGATIVE) 08/22/17 16:10 Ur Propoxyphene Screen NEGATIVE (NEGATIVE) 08/22/17 16:10 Ur Barbiturates Screen NEGATIVE (NEGATIVE) 08/22/17 16:10 Ur Tricyclics Screen NEGATIVE (NEGATIVE) 08/22/17 16:10 Ur Phencyclidine Scrn NEGATIVE (NEGATIVE) 08/22/17 16:10 Ur Amphetamine Screen NEGATIVE (NEGATIVE) 08/22/17 16:10 U Methamphetamines Scrn NEGATIVE (NEGATIVE) 08/22/17 16:10 U Benzodiazepines Scrn NEGATIVE (NEGATIVE) 08/22/17 16:10 Urine Cocaine Screen NEGATIVE (NEGATIVE) 08/22/17 16:10 U Cannabinoids Screen NEGATIVE (NEGATIVE) 08/22/17 16:10 Ethyl Alcohol < 5.0 mg/dL 08/22/17 13:39 Serum Ketones SMALL (NEGATIVE) H 08/23/17 05:04 - Procedures Procedures: Procedures DETACHMENT AT LEFT 4TH TOE, LOW, OPEN APPROACH (06/30/17) DETACHMENT AT RIGHT 1ST TOE, LOW, OPEN APPROACH (03/14/17) DETACHMENT AT RIGHT 2ND TOE, HIGH, OPEN APPROACH (06/30/17) DETACHMENT AT RIGHT 4TH TOE, HIGH, OPEN APPROACH (06/30/17) INSERT INFUSION DEV IN R INT JUGULAR VEIN, PERC (04/21/16) INSERTION OF INFUSION DEV INTO R SUBCLAV VEIN, PERC APPROACH (03/14/17) INSERTION OF INFUSION DEV INTO SUP VENA CAVA, PERC APPROACH (06/30/17) INSERTION OF INFUSION DEVICE INTO LOWER VEIN, PERC APPROACH (08/13/17) INSERTION OF INFUSION DEVICE INTO R ATRIUM, PERC APPROACH (12/04/15) TRANSFUSE NONAUT RED BLOOD CELLS IN PERIPH VEIN, PERC (01/22/17) ULTRASONOGRAPHY OF RIGHT JUGULAR VEINS, GUIDANCE (04/21/16)
[2017-08-23] MEDS: ONDANSETRON 4 MG/2 ML VIAL IVP PRN (19:53)
[2017-08-23] MEDS: LORazepam 0.5 MG TABLET PO PRN (20:53)
[2017-08-23] MEDS: AMITRIPTYLINE 25 MG TABLET PO SCH (20:54)
[2017-08-24] MEDS: NICOTINE 21 MG PATCH TOP SCH ×2 (02:23→08:21)
[2017-08-24] MEDS: SODIUM CHLORIDE FLUSH 0.9% 10 ML SYRINGE IVP SCH ×4 (05:32→20:01)
[2017-08-24] MEDS: GABAPENTIN 300 MG CAPSULE PO SCH ×3 (05:54→20:46)
[2017-08-24] MEDS: traMADol 50 MG TABLET PO PRN ×4 (05:54→23:40)
[2017-08-24 06:19] LABS: BUN - BLOOD UREA NITROGEN 26 mg/dL (6-20); CALCIUM 8.7 mg/dL (8.5-10.3); CARBON DIOXIDE - CO2 29 mmol/L (21-32); CHLORIDE 102 mmol/L (101-111); CREATININE 0.5 mg/dL (0.4-1.0); GFR - MDRD 140 (>89); GLUCOSE 164 mg/dL (70-100); SODIUM 136 mmol/L (135-145)
[2017-08-24] MEDS: NEUTRA-PHOS 250 MG TABLET PO SCH ×3 (08:15→17:47)
[2017-08-24] MEDS: ACETAMINOPHEN 325 MG TABLET PO PRN ×3 (08:15→17:48)
[2017-08-24] MEDS: METOPROLOL SUCCINATE 25 MG TABLET PO SCH ×2 (08:16→20:46)
[2017-08-24] MEDS: diltiaZEM CD 120 MG CAPSULE PO SCH (08:16)
[2017-08-24] MEDS: OXYBUTYNIN 5MG TABLET PO SCH ×2 (08:16→20:47)
[2017-08-24] MEDS: cloNIDine 0.1 MG TABLET PO SCH ×2 (08:16→20:45)
[2017-08-24] MEDS: FAMOTIDINE 20 MG TABLET PO SCH (08:17)
[2017-08-24] MEDS: ASPIRIN EC 81 MG TABLET PO SCH (08:17)
[2017-08-24] MEDS: IBUPROFEN 600 MG TABLET PO PRN ×2 (08:17→19:38)
[2017-08-24] MEDS: DULoxetine 30 MG CAPSULE PO SCH (08:18)
[2017-08-24] MEDS: INSULIN GLARGINE 300 UNIT/3 ML PEN SUBQ SCH (08:24)
[2017-08-24] MEDS: CILOSTAZOL 100 MG TABLET PO SCH ×2 (08:47→20:46)
[2017-08-24] MEDS: D5.45NS W/20 MEQ KCL 1,000 ML IV SCH ×2 (09:12→16:00)
[2017-08-24 11:43] LABS: HEMOGLOBIN A1C 1.22 g/dL; HEMOGLOBIN A1C % 13.3 % (4.6-6.2)
[2017-08-24] MEDS ORDERED: INSULIN ASPART 300 UNIT/3 ML PEN SUBQ SCH ×2 (12:00→17:00)
[2017-08-24] MEDS: INSULIN ASPART 300 UNIT/3 ML PEN SUBQ SCH ×3 (12:10→21:45)
[2017-08-24] MEDS ORDERED: MORPHINE 2 MG/ML SYRINGE IVP PRN (12:53)
[2017-08-24] MEDS ORDERED: HYDROcod/ACETAM 5/325 MG TABLET PO PRN (13:22)
--- NOTE | 2017-08-24 14:20 | PROVIDER PROGRESS NOTE ---
Subjective - Prog Note Date Prog Note Date: 08/24/17 Prog Note Time: 13:40 - Subjective Pt reports feeling: Improved (Generally speaking the patient feels better. She is more comfortable, and feels stronger. She is complaining of pain to her feet however which she rates as severe. She denies any fevers or chills, shortness of breath or chest pain.) Current Medications - Current Medications Current Medications: Active Medications Generic Name Dose Route Start Last Admin Trade Name Freq PRN Reason Stop Dose Admin Acetaminophen 650 mg 08/22/17 16:40 08/24/17 12:11 Tylenol PO 650 mg Q4HR PRN Administration Pain 1 to 4 Hydrocodone Bitart/Acetaminophen 1 tab 08/24/17 13:22 [place] 5/325 PO Q4HR PRN PAIN Amitriptyline HCl 25 mg 08/22/17 21:00 08/23/17 20:54 Elavil PO 25 mg HS SYLVIA Administration Aspirin 81 mg 08/23/17 09:00 08/24/17 08:17 Ecotrin PO 81 mg DAILY SYLVIA Administration Cilostazol 100 mg 08/22/17 21:00 08/24/17 08:47 Pletal PO 100 mg BID SYLVIA Administration Clonidine HCl 0.1 mg 08/22/17 21:00 08/24/17 08:16 Catapres PO 0.1 mg BID SYLVIA Administration Diltiazem HCl 120 mg 08/23/17 09:00 08/24/17 08:16 Cardizem Cd PO 120 mg DAILY SYLVIA Administration Duloxetine HCl 60 mg 08/23/17 09:00 08/24/17 08:18 Cymbalta PO 60 mg DAILY SYLVIA Administration Famotidine 20 mg 08/23/17 09:00 08/24/17 08:17 Pepcid PO 20 mg DAILY SYLVIA Administration Gabapentin 900 mg 08/22/17 22:00 08/24/17 13:33 Neurontin PO 900 mg TID SYLVIA Administration Hydromorphone HCl 2 mg 08/24/17 14:06 Dilaudid PO Q6HR PRN Severe Pain Potassium Chloride/Dextrose/Sod Cl 1,000 mls @ 150 mls/hr 08/24/17 08:37 05/09 09:12 D5.45ns W/20 Meq Kcl IV 150 mls/hr .Q6H40M SYLVIA Administration Ibuprofen 600 mg 08/22/17 16:40 08/24/17 08:17 Motrin PO 600 mg Q6HR PRN Administration Pain 1 to 4 Insulin Aspart 5 unit 08/25/17 08:00 [facility] Protocol Insulin Aspart 5 unit 08/24/17 12:00 08/24/17 12:10 Novolog SUBQ 5 unit QDLUNCH SYLVIA Administration Protocol Insulin Aspart 5 unit 08/24/17 17:00 [facility]olog SUBQ [facility] Protocol Insulin Aspart 2 - 10 unit 08/24/17 12:00 08/24/17 12:10 Novolog SUBQ 2 unit 0800,1200,1700,2100 SYLVIA Administration Protocol Insulin Glargine 70 unit 08/22/17 22:20 08/24/17 08:24 Lantus Solostar SUBQ 70 unit DAILY SYLVIA Administration Loperamide HCl 2 mg 08/23/17 14:00 Imodium PO QID PRN Diarrhea Lorazepam 1 mg 08/22/17 16:45 08/23/17 20:53 Ativan PO 1 mg QPM PRN Administration Insomnia Metoprolol Succinate 25 mg 08/22/17 21:00 08/24/17 08:16 Toprol Xl PO 25 mg BID SYLVIA Administration Nicotine 1 patch 08/23/17 22:00 08/24/17 08:21 Nicoderm TOP 1 patch DAILY SYLVIA Administration Ondansetron HCl 4 mg 08/22/17 16:40 08/23/17 19:53 Zofran Inj IVP 4 mg Q6HR PRN Administration Nausea / Vomiting Oxybutynin Chloride 5 mg 08/22/17 21:00 08/24/17 08:16 Ditropan PO 5 mg BID SYLVIA Administration Sodium Chloride 10 ml 08/22/17 17:00 08/24/17 10:57 Normal Saline Flush 0.9% IVP Not Given 0100,0900,1700 SYLVIA Sodium Chloride 10 ml 08/22/17 16:40 Normal Saline Flush 0.9% IVP PRN PRN NEEDED PER PROVIDER ORDERS Sodium Phosphate 250 mg 08/23/17 11:00 08/24/17 12:19 K-Phos Neutral PO 08/24/17 19:00 250 mg TIDWM SYLVIA Administration Tramadol HCl 50 mg 08/22/17 16:45 08/24/17 11:28 Ultram PO 50 mg Q6H PRN Administration MOD PAIN 5-7 Objective - Vital Signs/Intake & Output Reviewed Vital Signs: Yes Intake & Output: Intake & Output 08/21/17 08/22/17 08/23/17 08/24/17 23:59 23:59 23:59 23:59 Intake Total 3680.833 7096.000 3853.333 Output Total 500 2450 2200 Balance 3180.833 4646.000 1653.333 - Objective General Appearance: positive: No acute distress, Other (hypersomnolent) Eyes Bilateral: positive: Normal inspection, PERRL, EOMI, No lid inflammation, Conjunctivae nml, No scleral icterus ENT: positive: ENT inspection nml, Pharynx nml, No signs of dehydration Neck: positive: Nml inspection, Thyroid nml, No JVD, Trachea midline. negative : Thyromegaly Respiratory: positive: Chest non-tender, No respiratory distress, Breath sounds nml. negative: Wheezes, Rales, Rhonchi Cardiovascular: positive: Regular rate & rhythm, No murmur, No gallop Abdomen: positive: Non-tender, No organomegaly, Nml bowel sounds, No distention. negative: Guarding, Rebound Back: positive: Nml inspection. negative: CVA tenderness (R), CVA tenderness (L ) Skin: positive: Color nml, No rash, Warm, Dry. negative: Cyanosis Extremities: positive: Non-tender, Full ROM, Nml appearance, No pedal edema Neurologic/Psychiatric: positive: Oriented x3, CN's nml (2-12), Motor nml, Sensation nml, Mood/affect nml - Lab Results Fish Bones: 08/23/17 05:04 08/24/17 05:55 Other Labs: Lab Results x24hrs 08/24/17 08/24/17 08/24/17 Range/Units 11:31 07:32 05:55 Sodium (135-145) mmol/L Potassium (3.5-5.0) mmol/L Chloride (101-111) mmol/L Carbon Dioxide (21-32) mmol/L Anion Gap (6-13) BUN (6-20) mg/dL Creatinine (0.4-1.0) mg/dL Estimated GFR (MDRD) (>89) Glucose (70-100) mg/dL POC Whole Bld Glucose 158 H 150 H (70 - 100) mg/dL Glycated Hemoglobin 13.3 H (4.6-6.2) % Estim Average Glucose 335 H (70-100) Calcium (8.5-10.3) mg/dL Ionized Calcium Phosphorus (2.5-4.6) mg/dL Serum Ketones (NEGATIVE) 08/24/17 08/24/17 08/23/17 Range/Units 05:55 05:55 20:27 Sodium 136 (135-145) mmol/L Potassium 4.1 (3.5-5.0) mmol/L Chloride 102 (101-111) mmol/L Carbon Dioxide 29 (21-32) mmol/L Anion Gap 5.0 L (6-13) BUN 26 H (6-20) mg/dL Creatinine 0.5 (0.4-1.0) mg/dL Estimated GFR (MDRD) 140 (>89) Glucose 164 H (70-100) mg/dL POC Whole Bld Glucose 173 H (70 - 100) mg/dL Glycated Hemoglobin (4.6-6.2) % Estim Average Glucose (70-100) Calcium 8.7 (8.5-10.3) mg/dL Ionized Calcium NO Phosphorus 3.0 (2.5-4.6) mg/dL Serum Ketones NEGATIVE (NEGATIVE) 08/23/17 08/23/17 08/23/17 Range/Units 16:28 11:54 08:11 Sodium (135-145) mmol/L Potassium (3.5-5.0) mmol/L Chloride (101-111) mmol/L Carbon Dioxide (21-32) mmol/L Anion Gap (6-13) BUN (6-20) mg/dL Creatinine (0.4-1.0) mg/dL Estimated GFR (MDRD) (>89) Glucose (70-100) mg/dL POC Whole Bld Glucose 180 H 178 H 109 H (70 - 100) mg/dL Glycated Hemoglobin (4.6-6.2) % Estim Average Glucose (70-100) Calcium (8.5-10.3) mg/dL Ionized Calcium Phosphorus (2.5-4.6) mg/dL Serum Ketones (NEGATIVE) 08/22/17 08/22/17 08/22/17 Range/Units 22:42 22:18 22:02 Sodium (135-145) mmol/L Potassium (3.5-5.0) mmol/L Chloride (101-111) mmol/L Carbon Dioxide (21-32) mmol/L Anion Gap (6-13) BUN (6-20) mg/dL Creatinine (0.4-1.0) mg/dL Estimated GFR (MDRD) (>89) Glucose (70-100) mg/dL POC Whole Bld Glucose 150 H 85 73 (70 - 100) mg/dL Glycated Hemoglobin (4.6-6.2) % Estim Average Glucose (70-100) Calcium (8.5-10.3) mg/dL Ionized Calcium Phosphorus (2.5-4.6) mg/dL Serum Ketones (NEGATIVE) 08/22/17 08/22/17 08/22/17 Range/Units 21:08 19:59 18:25 Sodium (135-145) mmol/L Potassium (3.5-5.0) mmol/L Chloride (101-111) mmol/L Carbon Dioxide (21-32) mmol/L Anion Gap (6-13) BUN (6-20) mg/dL Creatinine (0.4-1.0) mg/dL Estimated GFR (MDRD) (>89) Glucose (70-100) mg/dL POC Whole Bld Glucose 105 H 202 H 185 H (70 - 100) mg/dL Glycated Hemoglobin (4.6-6.2) % Estim Average Glucose (70-100) Calcium (8.5-10.3) mg/dL Ionized Calcium Phosphorus (2.5-4.6) mg/dL Serum Ketones (NEGATIVE) 08/22/17 08/22/17 Range/Units 17:19 15:38 Sodium (135-145) mmol/L Potassium (3.5-5.0) mmol/L Chloride (101-111) mmol/L Carbon Dioxide (21-32) mmol/L Anion Gap (6-13) BUN (6-20) mg/dL Creatinine (0.4-1.0) mg/dL Estimated GFR (MDRD) (>89) Glucose (70-100) mg/dL POC Whole Bld Glucose 112 H 220 H (70 - 100) mg/dL Glycated Hemoglobin (4.6-6.2) % Estim Average Glucose (70-100) Calcium (8.5-10.3) mg/dL Ionized Calcium Phosphorus (2.5-4.6) mg/dL Serum Ketones (NEGATIVE) Assessment/Plan - Problem List (1) DKA (diabetic ketoacidoses) Impression: Resolved. The patient no longer is producing ketones, is off of the insulin drip and is on Lantus with sliding scale coverage. We will transfer her to the medical surgical floor at this time. (2) Diarrhea Impression: The patient has as needed Imodium ordered and has been taking this once or twice a day. This appears to be improving/resolving. (3) Anxiety Impression: The patient has an extensive mental health history including anxiety. Will restart her on as needed Lorazepam. (4) Bipolar 1 disorder with moderate antelmo Impression: The patient is a homeless methamphetamine addict who comes to the hospital 2 or 3 times a month for several days each time. We have tried to enter her into the mental health system here on [facility] many, many times but thus far has not been successful. We will continue her on her home medications for bipolar disorder. (5) IDDM (insulin dependent diabetes mellitus) Impression: The patient is off of the insulin drip and is now on Lantus with insulin at meals and sliding scale coverage. Continue present care. (6) Methamphetamine abuse, episodic Impression: Patient has a long history of episodic methamphetamine abuse. We will once again try to get her mental health help.
[2017-08-24] MEDS: HYDROmorphone 2 MG TABLET PO PRN (14:25)
[2017-08-24] MEDS ORDERED: KETOROLAC 15 MG/ML VIAL IVP PRN (19:59)
[2017-08-24] MEDS: LORazepam 0.5 MG TABLET PO PRN (20:04)
[2017-08-24] MEDS: AMITRIPTYLINE 25 MG TABLET PO SCH (20:46)
[2017-08-25] MEDS: HYDROmorphone 2 MG TABLET PO PRN ×2 (04:11→10:30)
[2017-08-25] MEDS: GABAPENTIN 300 MG CAPSULE PO SCH (05:59)
[2017-08-25 07:54] LABS: HGB - HEMOGLOBIN 9.5 g/dL (12.0-16.0); MEAN CORPUSCULAR HEMOGLOBIN 25.8 pg (27.0-31.0); MEAN CORPUSCULAR HGB CONC 31.5 g/dL (32.0-36.0); MEAN PLATELET VOLUME 7.7 fL (7.9-10.8); RED BLOOD COUNT 3.69 10^6/uL (4.20-5.40); RED CELL DISTRIBUTION WIDTH 19.7 % (12.0-15.0); WHITE BLOOD COUNT 4.6 x10^3/uL (4.8-10.8)
[2017-08-25 07:58] LABS: CALCIUM 8.6 mg/dL (8.5-10.3); CREATININE 0.5 mg/dL (0.4-1.0)
[2017-08-25] MEDS ORDERED: INSULIN ASPART 300 UNIT/3 ML PEN SUBQ SCH (08:00)
[2017-08-25] MEDS: traMADol 50 MG TABLET PO PRN (08:44)
[2017-08-25] MEDS: IBUPROFEN 600 MG TABLET PO PRN (08:44)
[2017-08-25] MEDS: ACETAMINOPHEN 325 MG TABLET PO PRN (08:45)
[2017-08-25] MEDS: INSULIN ASPART 300 UNIT/3 ML PEN SUBQ SCH (08:56)
[2017-08-25] MEDS: cloNIDine 0.1 MG TABLET PO SCH (09:17)
[2017-08-25] MEDS: diltiaZEM CD 120 MG CAPSULE PO SCH (09:17)
[2017-08-25] MEDS: DULoxetine 30 MG CAPSULE PO SCH (09:17)
[2017-08-25] MEDS: METOPROLOL SUCCINATE 25 MG TABLET PO SCH (09:17)
[2017-08-25] MEDS: FAMOTIDINE 20 MG TABLET PO SCH (09:17)
[2017-08-25] MEDS: NICOTINE 21 MG PATCH TOP SCH (09:18)
[2017-08-25] MEDS: ASPIRIN EC 81 MG TABLET PO SCH (09:18)
[2017-08-25] MEDS: CILOSTAZOL 100 MG TABLET PO SCH (09:18)
[2017-08-25] MEDS: OXYBUTYNIN 5MG TABLET PO SCH (09:18)
[2017-08-25] MEDS: INSULIN GLARGINE 300 UNIT/3 ML PEN SUBQ SCH (09:25)
[2017-08-25] MEDS: SODIUM CHLORIDE FLUSH 0.9% 10 ML SYRINGE IVP SCH (09:28)
--- NOTE | 2017-08-25 11:39 | Discharge Plan ---
Discharge Plan Disposition: 01 Home, Self Care Condition: Stable Diet: Diabetic Activity Restrictions: Activity as Tolerated Shower Restrictions: No Driving Restrictions: No Instruction Topics: Chronic Pain, Chronic Pain Manage Meds, Chronic Pain Therapies Mind Body Additional Instructions or Follow Up instructions: Follow-up with your new primary care physician this week. No Smoking: If you smoke, Please STOP! Call for help.
--- NOTE | 2017-08-25 11:42 | DISCHARGE SUMMARY ---
Discharge Summary Admit Date: 08/22/17 Discharge Date: 08/25/17 Discharging Provider: Marilyn Nugent DO Primary Care Provider: Pt has new PCP, forgets the name Code Status: Attempt Resuscitation Condition at Discharge: Stable Discharge Disposition: 01 Home, Self Care - DIAGNOSES Admission Diagnoses: 1. Diabetic ketoacidosis 2. Methamphetamine abuse 3. Coronary artery disease 4. Peripheral vascular disease 5. Noncompliance with medications Discharge Diagnoses with Status of Each Condition: 1. Diabetic ketoacidosis- Corrected/resolved. The patient comes to [facility] typically between 2 and 3 times a month in diabetic ketoacidosis. None of our interventions have been successful in helping her prevent this as she is a methamphetamine addict and tends to completely ignore her health until she can no longer do so. She will be sent home with her usual medication regimen and any as needed prescriptions. 2. Methamphetamine abuse- The patient continues to use methamphetamine on an episodic basis. She has once again been counseled to stop this behavior and has been offered resources to help her stop. 3. Coronary artery disease- The patient will be discharged home on her home dosing of diltiazem and baby aspirin. There have not been any complaints of chest pain during this hospitalization. 4. Peripheral vascular disease- The patient complains of some pain in her feet but this may be more related to diabetic peripheral neuropathy then ischemia. We will discharge her home on pletal. 5. Noncompliance with medications- The patient has been once again counseled to be more compliant with her medications, especially her diabetic medications but it seems unlikely that she will change her ways at this point in time. - HPI History of Present Illness: From Dr Vides's H&P: This is a 36-year-old white female with a history of methamphetamine abuse, personality disorder, type 1 diabetes with frequent DKA admissions, coronary artery disease, peripheral vascular disease, osteomyelitis requiring several separate amputations of different toes, the most recent about 2 months ago. The patient presents with 2-3 days of nausea and vomiting and unable to keep anything down. She is not lethargic as she normally is with DKA. She was found to have positive anion gap and positive serum ketones and is being admitted for DKA exacerbation once again. - HOSPITAL COURSE Hospital Course: The patient was admitted to the intensive care unit on an insulin drip and her sugars were quickly corrected. Patient also had several electrolyte abnormalities which were corrected. She was taken off of the insulin drip when she stopped producing ketones and today is comfortable and back to her baseline. - ALLERGIES Allergies/Adverse Reactions: Allergies Allergy/AdvReac Type Severity Reaction Status Date / Time codeine Allergy Hives Verified 08/22/17 13:28 hydrocodone Allergy Hives Verified 08/22/17 13:28 morphine Allergy Itching Verified 08/22/17 13:28 milk AdvReac Cramps Verified 08/22/17 13:28 nitrofurantoin AdvReac Headache Verified 08/22/17 13:28 [From Macrobid] PAPER TAPE AdvReac Unknown Uncoded 08/01/17 17:52 - MEDICATIONS Home Medications: Ambulatory Orders Medication Instructions Recorded Confirmed Insulin Aspart [NovoLOG] 12 unit SUBQ TIDWM #3 pen 07/10/17 08/13/17 Amitriptyline [Elavil] 25 mg PO HS #20 tablet 08/05/17 08/13/17 Aspirin [Aspirin EC] 81 mg PO DAILY #30 tablet. 08/05/17 08/13/17 Cilostazol [Pletal] 100 mg PO BID #60 tablet 08/05/17 08/13/17 DULoxetine [Cymbalta] 60 mg PO DAILY #30 capsule 08/05/17 08/13/17 Gabapentin [Neurontin] 900 mg PO TID #90 capsule 08/05/17 08/13/17 Ibuprofen [Motrin] 600 mg PO Q6HR PRN #60 tablet 08/05/17 08/13/17 Insulin Aspart [Novolog Flexpen] 25 unit SUBQ ACHS #5 each 08/05/17 08/13/17 Insulin Glargine [Lantus Solostar] 70 unit SUBQ DAILY #10 pen 08/05/17 08/13/17 Metoprolol Succinate [Toprol Xl] 25 mg PO BID #60 tablet 08/05/17 08/13/17 Oxybutynin [Ditropan] 5 mg PO BID #60 tablet 08/05/17 08/13/17 cloNIDine [Catapres] 0.1 mg PO BID #60 tablet 08/05/17 08/13/17 diltiaZEM CD [Cardizem Cd] 120 mg PO DAILY #30 capsule 08/05/17 08/13/17 traMADol [Ultram] 50 mg PO Q6H PRN #10 tablet 08/05/17 08/13/17 Blood Sugar Diagnostic [Glucose 1 each [facility] #120 strip 08/16/17 Test Strip] LORazepam [Ativan] 1 mg PO QPM PRN #7 tablet 08/16/17 Lidocaine HCl [Lidocaine HCl 15 ml MM TIDWM #1 solution 08/16/17 Viscous] [place], Disposable [Easy Touch 1 each [facility] #120 dis.needle 08/16/17 Hypodermic Needle] Nystatin Cream [Mycostatin Cream] 15 gm TOP BID #1 tube 08/16/17 Syringe, Disposable, 60 ml 1 each [facility] #120 disp.syrin 08/16/17 [Syringe] - PHYSICAL EXAM AT DISCHARGE General Appearance: positive: No acute distress, Alert Eyes Bilateral: positive: Normal inspection, PERRL, EOMI, No lid inflammation, Conjunctivae nml, No scleral icterus ENT: positive: ENT inspection nml, Pharynx nml, No signs of dehydration Neck: positive: Nml inspection, Thyroid nml, No JVD, Trachea midline. negative : Thyromegaly Respiratory: positive: Chest non-tender, No respiratory distress, Breath sounds nml. negative: Wheezes, Rales, Rhonchi Cardiovascular: positive: Regular rate & rhythm, No murmur, No gallop Peripheral Pulses: positive: 1+ Abdomen: positive: Non-tender, No organomegaly, Nml bowel sounds, No distention. negative: Guarding, Rebound Back: positive: Nml inspection. negative: CVA tenderness (R), CVA tenderness (L ) Skin: positive: Color nml, No rash, Warm, Dry. negative: Cyanosis Extremities: positive: Non-tender, Full ROM, Nml appearance Neurologic/Psychiatric: positive: Oriented x3, CN's nml (2-12), Motor nml, Sensation nml, Mood/affect nml - LABS Result Diagrams: 08/25/17 04:50 08/25/17 04:50 - FOLLOW UP Follow Up: With your new primary care physician in 1 week - TIME SPENT Time Spent in Discharge (Minutes): 35
[2017-08-25 12:15] VITALS: BP 120/92
== END 2017-08-25 12:35 | disposition home or self-care (01) | DRG 638 ==
LOC: EDUNIT# → ED 13:17 → ICU 15:31
PROVIDERS: ADMIT Internal Medicine; ATTEND Hospitalist
DX: E10.10 Type 1 diabetes mellitus with ketoacidosis without coma (principal); F15.20 Other stimulant dependence, uncomplicated; T38.3X6A Underdosing of insulin and oral hypoglycemic [antidiabetic] drugs, initial encounter; E10.51 Type 1 diabetes mellitus with diabetic peripheral angiopathy without gangrene; E10.42 Type 1 diabetes mellitus with diabetic polyneuropathy; F60.9 Personality disorder, unspecified; I25.10 Atherosclerotic heart disease of native coronary artery without angina pectoris; R19.7 Diarrhea, unspecified; F17.210 Nicotine dependence, cigarettes, uncomplicated; F31.9 Bipolar disorder, unspecified; F41.0 Panic disorder [episodic paroxysmal anxiety]; I10 Essential (primary) hypertension; I25.2 Old myocardial infarction; Z59.0 Homelessness; Z91.14 Patient's other noncompliance with medication regimen; Z89.421 Acquired absence of other right toe(s)
CPT/HCPCS: 36410; 36415; 80048; 80053; 80306; 80320; 81001; 81003; 82009; 82330; 82803; 82947; 83036; 83690; 83735; 84100; 84703; 85025; 85027; 87086; 87150; 87177; 87209; 93005; 96361; 96365; 96375; 99284; 99285

== ENCOUNTER 2017-08-29 16:54 | Outpatient (CLI) | payer MEDICAID | END 2017-08-29 16:55 | disposition critical access hospital (66) | LOC: EMS 16:54 | PROVIDERS: ATTEND Surgery | DX: R73.09 Other abnormal glucose (principal); R11.2 Nausea with vomiting, unspecified; R52 Pain, unspecified | CPT/HCPCS: A0425; A0429; A0999 ==

== ENCOUNTER 2017-08-29 17:13 | Inpatient (IN) | payer MEDICAID ==
[2017-08-29] MEDS ORDERED: ONDANSETRON 4 MG/2 ML VIAL IVP STA (17:15)
[2017-08-29] MEDS ORDERED: SODIUM CHLORIDE 0.9% 1,000 ML IV ONE ×2 (17:15)
[2017-08-29] MEDS ORDERED: INSULIN REGULAR HUMAN 100 UNIT in SODIUM CHLORIDE 0.9% 100ML 99 ML IV STA (17:19)
--- NOTE | 2017-08-29 17:21 | ED Physician Documentation ---
History of Present Illness - Stated complaint Stated Complaint: N/V - History obtained from History obtained from: Patient, EMS - History of Present Illness Timing: Today Pain level max: 8 Pain level now: 8 Quality: "pain" Improved by: nothing Worsened by: nothing - Additonal information Additional information: Patient is a well known diabetic female with vomiting and blood sugar reading "high today". States the she took 90 units of regular insulin earlier. States vomiting today. diffuse abd pain. Review of Systems Ten Systems: 10 systems reviewed and negative Constitutional: denies: Fever, Chills Ears: denies: Ear pain Nose: denies: Rhinorrhea / runny nose, Congestion Throat: denies: Sore throat Cardiac: denies: Chest pain / pressure Respiratory: denies: Cough, Wheezing GI: reports: Vomiting. 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 08/05/17 08/13/17 Cilostazol [Pletal] 100 mg PO BID #60 tablet 08/05/17 08/13/17 DULoxetine [Cymbalta] 60 mg PO DAILY #30 capsule 08/05/17 08/13/17 Gabapentin [Neurontin] 900 mg PO TID #90 capsule 08/05/17 08/13/17 Ibuprofen [Motrin] 600 mg PO Q6HR PRN #60 tablet 08/05/17 08/13/17 Insulin Aspart [Novolog Flexpen] 25 unit SUBQ ACHS #5 each 08/05/17 08/13/17 Insulin Glargine [Lantus Solostar] 70 unit SUBQ DAILY #10 pen 08/05/17 08/13/17 Metoprolol Succinate [Toprol Xl] 25 mg PO BID #60 tablet 08/05/17 08/13/17 Oxybutynin [Ditropan] 5 mg PO BID #60 tablet 08/05/17 08/13/17 cloNIDine [Catapres] 0.1 mg PO BID #60 tablet 08/05/17 08/13/17 diltiaZEM CD [Cardizem Cd] 120 mg PO DAILY #30 capsule 08/05/17 08/13/17 traMADol [Ultram] 50 mg PO Q6H PRN #10 tablet 08/05/17 08/13/17 Blood Sugar Diagnostic [Glucose 1 each [facility] #120 strip 08/16/17 Test Strip] LORazepam [Ativan] 1 mg PO QPM PRN #7 tablet 08/16/17 Lidocaine HCl [Lidocaine HCl 15 ml MM TIDWM #1 solution 08/16/17 Viscous] [place], Disposable [Easy Touch 1 each [facility] #120 dis.needle 08/16/17 Hypodermic Needle] Nystatin Cream [Mycostatin Cream] 15 gm TOP BID #1 tube 08/16/17 Syringe, Disposable, 60 ml 1 each [facility] #120 disp.syrin 08/16/17 [Syringe] - Allergies Allergies/Adverse Reactions: Allergies Allergy/AdvReac Type Severity Reaction Status Date / Time codeine Allergy Hives Verified 08/22/17 13:28 hydrocodone Allergy Hives Verified 08/22/17 13:28 morphine Allergy Itching Verified 08/22/17 13:28 milk AdvReac Cramps Verified 08/22/17 13:28 nitrofurantoin AdvReac Headache Verified 08/22/17 13:28 [From Macrobid] PAPER TAPE AdvReac Unknown Uncoded 08/01/17 17:52 - Social History Does the pt smoke?: Yes Smoking Status: Current every day smoker Does the pt drink ETOH?: No Does the pt have substance abuse?: Yes - Immunizations Immunizations are current?: Yes - POLST Patient has POLST: No POLST Status: Full Code PD ED PE NORMAL - Vitals Vital signs reviewed: Yes - General General: Alert and oriented X 3, No acute distress - HEENT HEENT: Other (dry lips and mouth) - Neck Neck: Supple, no meningeal sign - Cardiac Cardiac: RRR - Respiratory Respiratory: No respiratory distress, Clear bilaterally - Abdomen Abdomen: Soft, Other (Mild diffuse tender palpation without peritoneal signs) - Back Back: No CVA TTP - Derm Derm: Warm and dry, No rash - Extremities Extremities: No edema, Other (L 4th toe - erythematous, swollen, warm. tender to palpation. ) - Neuro Neuro: Alert and oriented X 3 Results - Vitals Vitals: Vital Signs - 24 hr 08/29/17 17:19 Temperature 36.9 C Heart Rate 108 H Respiratory 18 Rate Blood Pressure 187/144 H O2 Saturation 97 Oxygen O2 Source [Without Activity] Room air O2 Source Room air - Labs Labs: Laboratory Tests 08/29/17 08/29/17 08/29/17 17:20 17:20 17:20 WBC 4.1 L RBC 4.29 Hgb 10.9 L Hct 37.0 MCV 86.2 MCH 25.5 L MCHC 29.6 L RDW 19.0 H Plt Count 344 MPV 8.4 Neut # (Auto) 2.5 Lymph # (Auto) 1.2 L [place] # (Auto) 0.3 Eos # (Auto) 0.0 Baso # (Auto) 0.1 Absolute Nucleated RBC 0.00 Nucleated RBC % 0.0 VBG pH 7.408 VBG pCO2 40.0 L VBG pO2 52.3 H VBG HCO3 24.7 VBG Total CO2 25.9 VBG O2 Saturation 84.9 H VBG Base Excess 0.1 Sodium 122 L Potassium 5.2 H Chloride 85 L Carbon Dioxide 24 Anion Gap 12.0 BUN 22 H Creatinine 0.7 Estimated GFR (MDRD) 95 Glucose 951 H* Calcium 8.9 Total Bilirubin 1.3 H AST 60 H ALT 56 Alkaline Phosphatase 184 H Total Protein 7.6 Albumin 3.9 Globulin 3.7 Albumin/Globulin Ratio 1.1 Lipase 50 Urine Color Urine Clarity Urine pH Ur Specific [place] Urine Protein Urine Glucose (UA) Urine Ketones Urine Occult Blood Urine Nitrite Urine Bilirubin Urine Urobilinogen Ur Leukocyte Esterase Ur Microscopic Review Urine Culture Comments Urine HCG, Qual Urine Opiates Screen Ur Oxycodone Screen Urine Methadone Screen Ur Propoxyphene Screen Ur Barbiturates Screen Ur Tricyclics Screen Ur Phencyclidine Scrn Ur Amphetamine Screen U Methamphetamines Scrn U Benzodiazepines Scrn Urine Cocaine Screen U Cannabinoids Screen Serum Ketones SMALL H 08/29/17 08/29/17 17:35 17:37 WBC RBC Hgb Hct MCV MCH MCHC RDW Plt Count MPV Neut # (Auto) Lymph # (Auto) [place] # (Auto) Eos # (Auto) Baso # (Auto) Absolute Nucleated RBC Nucleated RBC % VBG pH VBG pCO2 VBG pO2 VBG HCO3 VBG Total CO2 VBG O2 Saturation VBG Base Excess Sodium Potassium Chloride Carbon Dioxide Anion Gap BUN Creatinine Estimated GFR (MDRD) Glucose Calcium Total Bilirubin AST ALT Alkaline Phosphatase Total Protein Albumin Globulin Albumin/Globulin Ratio Lipase Urine Color COLORLESS Urine Clarity CLEAR Urine pH 7.0 Ur Specific [place] <=1.005 Urine Protein NEGATIVE Urine Glucose (UA) >=1000 H Urine Ketones NEGATIVE Urine Occult Blood NEGATIVE Urine Nitrite NEGATIVE Urine Bilirubin NEGATIVE Urine Urobilinogen 0.2 (NORMAL) Ur Leukocyte Esterase NEGATIVE Ur Microscopic Review NOT INDICATED Urine Culture Comments NOT INDICATED Urine HCG, Qual NEGATIVE Urine Opiates Screen NEGATIVE Ur Oxycodone Screen NEGATIVE Urine Methadone Screen NEGATIVE Ur Propoxyphene Screen NEGATIVE Ur Barbiturates Screen NEGATIVE Ur Tricyclics Screen NEGATIVE Ur Phencyclidine Scrn NEGATIVE Ur Amphetamine Screen NEGATIVE U Methamphetamines Scrn NEGATIVE U Benzodiazepines Scrn NEGATIVE Urine Cocaine Screen NEGATIVE U Cannabinoids Screen NEGATIVE Serum Ketones PD MEDICAL DECISION MAKING - ED course Complexity details: reviewed old records, reviewed results, re-evaluated patient , considered differential, d/w patient, d/w energy consultant ED course: Patient is a 36-year-old poorly controlled diabetic his blood sugar is almost 1000 today. She took 90 units of insulin prior to arrival. Does have small ketones. Given IV fluids and started on an insulin drip. She also has cellulitis and possible osteomyelitis to the left fourth toe. Will have this followed up by the hospitalist while she is inpatient. Afebrile. Discussed the case with Dr. Nugent, hospitalist who accepts. This document was made in part using voice recognition software. While efforts are made to proofread this document, sound alike and grammatical errors may occur. - Sepsis Event Vital Signs: Vital Signs - 24 hr 08/29/17 17:19 Temperature 36.9 C Heart Rate 108 H Respiratory 18 Rate Blood Pressure 187/144 H O2 Saturation 97 Oxygen O2 Source [Without Activity] Room air O2 Source Room air Departure - Departure Disposition: 66 [facility] DC/Xfer Clinical Impression: Cellulitis of toe of left foot DKA (diabetic ketoacidoses) Qualifiers: Diabetes mellitus type: type 1 Diabetes mellitus complication detail: without coma Qualified Code(s): E10.10 - Type 1 diabetes mellitus with ketoacidosis without coma Condition: Stable Discharge Date/Time: 08/29/17 19:37
[2017-08-29 17:32] LABS: VBG PH 7.408 (7.31-7.41); VBG PO2 52.3 mmHg (25-47)
[2017-08-29 17:33] LABS: VBG BASE EXCESS 0.1 mmol/L (-2 - +2); VBG TOTAL CO2 25.9 mmol/L (24-29)
[2017-08-29 17:34] LABS: BASOPHILS # (AUTO) 0.1 10^3/uL (0.0-0.1); BASOPHILS % (AUTO) 1.3 %; EOSINOPHILS % (AUTO) 0.7 %; HGB - HEMOGLOBIN 10.9 g/dL (12.0-16.0); LYMPHOCYTES # (AUTO) 1.2 10^3/uL (1.5-3.5); LYMPHOCYTES % (AUTO) 29.7 %; MEAN CORPUSCULAR HEMOGLOBIN 25.5 pg (27.0-31.0); MEAN CORPUSCULAR HGB CONC 29.6 g/dL (32.0-36.0); MEAN CORPUSCULAR VOLUME 86.2 fL (81.0-99.0); MEAN PLATELET VOLUME 8.4 fL (7.9-10.8); MONOCYTES # (AUTO) 0.3 10^3/uL (0.0-1.0); MONOCYTES % (AUTO) 8.2 %; NEUTROPHILS # (AUTO) 2.5 10^3/uL (1.5-6.6); NEUTROPHILS % (AUTO) 60.1 %; PLT - PLATELET COUNT 344 10^3/uL (130-450); RED BLOOD COUNT 4.29 10^6/uL (4.20-5.40); WHITE BLOOD COUNT 4.1 x10^3/uL (4.8-10.8)
[2017-08-29 17:41] LABS: BILIRUBIN,URINE NEGATIVE (NEGATIVE); GLUCOSE, URINE (UA) >=1000 mg/dL (NEGATIVE); KETONES,URINE (UA) NEGATIVE (NEGATIVE); LEUKOCYTE ESTERASE, URINE NEGATIVE (NEGATIVE); NITRITE,URINE NEGATIVE (NEGATIVE); OCCULT BLOOD,URINE NEGATIVE (NEGATIVE); PROTEIN,URINE NEGATIVE (NEGATIVE); UROBILINOGEN,URINE 0.2 (NORMAL) E.U./dL (NORMAL)
[2017-08-29 17:44] LABS: KETONES, SERUM (ACETEST) SMALL (NEGATIVE)
[2017-08-29 17:45] LABS: CLARITY,URINE CLEAR (CLEAR); HCG UR QUAL NEGATIVE
[2017-08-29] MEDS ORDERED: LIDOCAINE 1% 2 ML VIAL SUBQ ONE (17:46)
[2017-08-29] MEDS ORDERED: cefTRIAXone 1 GM VIAL IM STA (17:46)
[2017-08-29 17:52] LABS: ALBUMIN 3.9 g/dL (3.2-5.5); ALBUMIN/GLOBULIN RATIO 1.1 (1.0-2.2); ALKALINE PHOSPHATASE 184 IU/L (42-121); ALT ALANINE AMINOTRANSFERASE 56 IU/L (10-60); AST ASPARTATE AMINOTRANSFERASE 60 IU/L (10-42); BILIRUBIN,TOTAL 1.3 mg/dL (0.2-1.0); BUN - BLOOD UREA NITROGEN 22 mg/dL (6-20); CALCIUM 8.9 mg/dL (8.5-10.3); CARBON DIOXIDE - CO2 24 mmol/L (21-32); CHLORIDE 85 mmol/L (101-111); CREATININE 0.7 mg/dL (0.4-1.0); GFR - MDRD 95 (>89); LIPASE 50 U/L (22-51); SODIUM 122 mmol/L (135-145); TOTAL PROTEIN 7.6 g/dL (6.7-8.2)
[2017-08-29 17:54] LABS: GLUCOSE 951 mg/dL (70-100)
[2017-08-29 17:55] LABS: AMPHETAMINE SCREEN,URINE NEGATIVE (NEGATIVE); BENZODIAZEPINES SCREEN, URINE NEGATIVE (NEGATIVE); COCAINE SCREEN URINE NEGATIVE (NEGATIVE); METHADONE SCREEN, URINE NEGATIVE (NEGATIVE); METHAMPHETAMINES SCREEN, URINE NEGATIVE (NEGATIVE); MUDS CUTOFF CONCENTRATIONS CUTOFF CONC BELOW:; OPIATE SCREEN, URINE NEGATIVE (NEGATIVE); OXYCODONE SCREEN, URINE NEGATIVE (NEGATIVE); PROPOXYPHENE SCREEN, URINE NEGATIVE (NEGATIVE); TRICYCLIC ANTIDEPRESSANT,URINE NEGATIVE (NEGATIVE)
[2017-08-29] MEDS ORDERED: HYDROcod/ACETAM 5/325 MG TABLET PO PRN (18:16)
[2017-08-29] MEDS ORDERED: PROCHLORPERAZINE 10 MG/2 ML VIAL IVP PRN (18:16)
[2017-08-29] MEDS ORDERED: SODIUM CHLORIDE FLUSH 0.9% 10 ML SYRINGE IVP PRN (18:16)
[2017-08-29] MEDS ORDERED: INSULIN REGULAR HUMAN 100 UNIT in SODIUM CHLORIDE 0.9% 100ML 99 ML IV SCH (18:23)
[2017-08-29] MEDS ORDERED: SODIUM CHLORIDE 0.9% 100ML 100 ML IV ONE (19:01)
[2017-08-29] MEDS ORDERED: INSULIN REGULAR HUMAN 100 UNIT/1 ML 10 ML MDV ONE (19:17)
[2017-08-29] MEDS: LORazepam 0.5 MG TABLET PO PRN (19:54)
[2017-08-29] MEDS ORDERED: HYDROmorphone 2 MG/ML VIAL IVP PRN (20:06)
[2017-08-29] MEDS ORDERED: LORazepam 0.5 MG TABLET PO PRN (20:15)
[2017-08-29] MEDS ORDERED: traMADol 50 MG TABLET PO PRN (20:15)
[2017-08-29 20:23] LABS: KETONES, SERUM (ACETEST) SMALL (NEGATIVE)
[2017-08-29 20:27] LABS: BUN - BLOOD UREA NITROGEN 20 mg/dL (6-20); CALCIUM 8.9 mg/dL (8.5-10.3); CARBON DIOXIDE - CO2 26 mmol/L (21-32); CHLORIDE 91 mmol/L (101-111); CREATININE 0.7 mg/dL (0.4-1.0); GFR - MDRD 95 (>89); SODIUM 129 mmol/L (135-145)
[2017-08-29 20:29] LABS: GLUCOSE 627 mg/dL (70-100)
[2017-08-29] MEDS ORDERED: METOCLOPRAMIDE 10 MG/2 ML VIAL IVP ONE (20:57)
[2017-08-29] MEDS ORDERED: AMITRIPTYLINE 25 MG TABLET PO SCH ×2 (21:00)
[2017-08-29] MEDS: CILOSTAZOL 100 MG TABLET PO SCH (21:05)
[2017-08-29] MEDS: NS W/20 MEQ KCL 1,000 ML IV SCH (21:05)
[2017-08-29] MEDS: METOPROLOL SUCCINATE 25 MG TABLET PO SCH (21:06)
[2017-08-29] MEDS: GABAPENTIN 300 MG CAPSULE PO SCH (21:06)
[2017-08-29] MEDS: cloNIDine 0.1 MG TABLET PO SCH (21:06)
[2017-08-29] MEDS: IBUPROFEN 600 MG TABLET PO PRN (22:26)
[2017-08-29] MEDS: INSULIN GLARGINE 300 UNIT/3 ML PEN SUBQ SCH (23:23)
[2017-08-30 00:58] LABS: CALCIUM 8.2 mg/dL (8.5-10.3); CREATININE 0.4 mg/dL (0.4-1.0)
--- NOTE | 2017-08-30 02:37 | HISTORY & PHYSICAL EXAMINATION ---
DATE OF SERVICE: 08/29/2017 Physician: Jayshree Vides MD HISTORY OF PRESENT ILLNESS: This is a 36-year-old white female with frequent recurrence of DKA and admissions here. She has a history of type 1 diabetes, peripheral vascular disease and coronary artery disease with prior [place], history of hypertension, personality disorder, she is homeless, there has been a history of osteomyelitis in the last 9 months several times requiring several toe amputations, and she has a history of noncompliance to medication use and has no PCP, since everyone refuses to accept her as a patient. The patient is admitted with complaints of nausea and vomiting, mild generalized abdominal pain, and was found to have an elevated glucose in the 900s and small serum ketones but a normal pH on venous blood gas. She is being admitted for management of nausea, vomiting, and hyperglycemia. PAST MEDICAL HISTORY 1. Diabetes type 1. 2. Frequent DKA. 3. CAD. 4. PVD. 5. Osteomyelitis with toe amputations. 6. Hypertension. 7. Personality disorder. 8. Noncompliance. 9. Homeless person. REVIEW OF SYSTEMS: Comprehensive review of systems was performed, and all pertinent positives are in the HPI. SOCIAL HISTORY: She is homeless. She smokes cigarettes and uses methamphetamine, previously other drugs as well. She drinks no alcohol. MEDICATIONS 1. Motrin 600 mg q.6 h. p.r.n. pain. 2. NovoLog insulin 12 units subcutaneously t.i.d. with meals. 3. Lantus insulin 70 units subcutaneously daily. 4. Oxybutynin 5 mg b.i.d. p.r.n. 5. Amitriptyline 50 mg at bedtime. 6. Baby aspirin daily. 7. Pletal 100 mg b.i.d. 8. Clonidine 0.1 mg b.i.d. 9. Diltiazem CD 120 mg daily. 10. Cymbalta 20 mg at bedtime. 11. Gabapentin 300 mg, unknown frequency. 12. Toprol-XL 25 mg daily. 13. Tramadol 50 mg, unknown frequency. ALLERGIES 1. CODEINE. 2. HYDROCODONE. 3. MORPHINE; HOWEVER, SHE IS ABLE TO GET MORPHINE AND TYLENOL WITH CODEINE. 4. SHE IS ALSO ALLERGIC TO NITROFURANTOIN. 5. PAPER TAPE. FAMILY HISTORY: No inherited diseases. PHYSICAL EXAMINATION GENERAL: Thin white female. She is in no distress. She is edentulous. VITAL SIGNS: Blood pressure 163/106, heart rate 105 in sinus rhythm, now has improved to 89 in sinus rhythm, afebrile, room air saturation 95%. HEENT: Moist oral mucosa, and she is edentulous. NECK: Without JVD in a supine position. No carotid bruits. CHEST: Clear. HEART: Sounds are normal. No murmur. ABDOMEN: Soft, decreased bowel sounds, nontender. EXTREMITIES: No clubbing, cyanosis, or edema. She has 3 toes that are amputated in total bilaterally. NEUROLOGIC: Grossly intact but currently sleeping. LABORATORY DATA: Serum ketones are small. Her drug screen was entirely negative. Sodium 122, potassium 5.2, BUN 22, creatinine 0.7, glucose 951, magnesium 2.0. Bilirubin 1.3, AST 60, ALT 56. Lipase normal. White blood count 4.1, hemoglobin 10.9, platelet count 344. Venous blood gas pH 7.408. IMPRESSION 1. Gastroparesis diabeticorum, this is the likely cause of her frequent nausea and vomiting. 2. Hyperglycemia, without diabetic ketoacidosis or coma currently. 3. Drug abuse history. 4. Peripheral vascular disease. 5. CAD 6. History of osteomyelitis with toe amputations. 7. Chronic pain. 8. Hypertension. 9. Personality disorder. 10. Homeless single person. PLAN 1. Admit the patient to the ICU and start insulin drip for control of the serum ketones and hyperglycemia. 2. Follow the DKA protocol, but the patient can start eating, and when glucoses are near 200, stop the insulin drip. 3. Once she has cleared her serum ketones, she can also be started back on Lantus but would recommend splitting the dose to 35 units subcutaneously b.i.d. 4. Continue to monitor [id number] glucoses. 5. Continue with her medications for chronic pain, hypertension, PVD. CODE STATUS: FULL CODE. DEEP VENOUS THROMBOSIS PROPHYLAXIS: SCDs. ATTESTATION: The patient is expected to be discharged or transferred to another facility within 96 hours: Yes. TD: 08/29/2017 23:29 BRYANNA
[2017-08-30] MEDS: SODIUM CHLORIDE FLUSH 0.9% 10 ML SYRINGE IVP SCH ×2 (03:05→09:41)
[2017-08-30] MEDS: HYDROmorphone 2 MG/ML VIAL IVP PRN ×2 (03:20→11:09)
[2017-08-30] MEDS: NS W/20 MEQ KCL 1,000 ML IV SCH ×2 (03:51→11:08)
[2017-08-30] MEDS: INSULIN ASPART 300 UNIT/3 ML PEN SUBQ SCH ×3 (04:45→12:21)
[2017-08-30] MEDS: IBUPROFEN 600 MG TABLET PO PRN (06:27)
[2017-08-30] MEDS: METOCLOPRAMIDE 10 MG TABLET PO SCH ×2 (06:27→11:41)
[2017-08-30] MEDS: GABAPENTIN 300 MG CAPSULE PO SCH (06:27)
[2017-08-30 06:47] LABS: BASOPHILS % (AUTO) 1.3 %; EOSINOPHILS # (AUTO) 0.1 10^3/uL (0.0-0.7); EOSINOPHILS % (AUTO) 2.1 %; LYMPHOCYTES # (AUTO) 1.8 10^3/uL (1.5-3.5); LYMPHOCYTES % (AUTO) 49.5 %; MEAN CORPUSCULAR HEMOGLOBIN 25.1 pg (27.0-31.0); MEAN CORPUSCULAR VOLUME 80.9 fL (81.0-99.0); MEAN PLATELET VOLUME 7.5 fL (7.9-10.8); MONOCYTES # (AUTO) 0.4 10^3/uL (0.0-1.0); MONOCYTES % (AUTO) 10.7 %; NEUTROPHILS # (AUTO) 1.3 10^3/uL (1.5-6.6); NEUTROPHILS % (AUTO) 36.4 %; PLT - PLATELET COUNT 273 10^3/uL (130-450); RED BLOOD COUNT 3.59 10^6/uL (4.20-5.40); RED CELL DISTRIBUTION WIDTH 18.8 % (12.0-15.0); WHITE BLOOD COUNT 3.6 x10^3/uL (4.8-10.8)
[2017-08-30 06:48] LABS: CALCIUM 7.8 mg/dL (8.5-10.3); CREATININE 0.4 mg/dL (0.4-1.0); PHOSPHORUS 2.9 mg/dL (2.5-4.6)
[2017-08-30] MEDS ORDERED: NICOTINE 21 MG PATCH TOP SCH (08:00)
[2017-08-30] MEDS: INSULIN GLARGINE 300 UNIT/3 ML PEN SUBQ SCH (08:31)
[2017-08-30] MEDS: LORazepam 0.5 MG TABLET PO PRN (08:35)
[2017-08-30] MEDS ORDERED: diltiaZEM CD 120 MG CAPSULE PO SCH (09:00)
[2017-08-30] MEDS ORDERED: ASPIRIN EC 81 MG TABLET PO SCH (09:00)
[2017-08-30] MEDS ORDERED: FAMOTIDINE 20 MG TABLET PO SCH (09:00)
[2017-08-30] MEDS ORDERED: DULoxetine 30 MG CAPSULE PO SCH (09:00)
[2017-08-30] MEDS: cloNIDine 0.1 MG TABLET PO SCH (09:41)
[2017-08-30] MEDS: METOPROLOL SUCCINATE 25 MG TABLET PO SCH (09:41)
[2017-08-30] MEDS: CILOSTAZOL 100 MG TABLET PO SCH (09:41)
[2017-08-30] MEDS ORDERED: MUPIROCIN 2% OINT 1 GM NAS SCH (10:00)
--- NOTE | 2017-08-30 11:49 | Discharge Plan ---
Discharge Plan Disposition: 01 Home, Self Care Condition: Stable Prescriptions: Amitriptyline [Elavil] 25 mg PO HS #20 tablet Aspirin [Aspirin EC] 81 mg PO DAILY #30 tablet. Cilostazol [Pletal] 100 mg PO BID #60 tablet Clindamycin HCl [Clindamycin 300MG CAP] 300 mg PO Q6H #40 capsule cloNIDine [Catapres] 0.1 mg PO BID #60 tablet diltiaZEM CD [Cardizem Cd] 120 mg PO DAILY #30 capsule DULoxetine [Cymbalta] 60 mg PO DAILY #30 capsule Gabapentin [Neurontin] 900 mg PO TID #90 capsule Insulin Aspart [NovoLOG] 12 unit SUBQ TIDWM #3 pen Insulin Aspart [Novolog Flexpen] 25 unit SUBQ [facility]CH[facility] #5 each Insulin Glargine [Lantus Solostar] 70 unit SUBQ DAILY #10 pen Metoclopramide [Reglan] 10 mg PO ACHS #60 tablet Metoprolol Succinate [Toprol Xl] 25 mg PO BID #60 tablet [place], Disposable [Easy Touch Hypodermic Needle] 1 each [facility] #120 dis.needle Oxybutynin [Ditropan] 5 mg PO BID #60 tablet Syringe, Disposable, 60 ml [Syringe] 1 each [facility] #120 disp.syrin traMADol [Ultram] 50 mg PO Q6H PRN #10 tablet PRN Reason: MOD PAIN 5-7 Diet: Diabetic Activity Restrictions: Activity as Tolerated Shower Restrictions: No Driving Restrictions: No No Smoking: If you smoke, Please STOP! Call for help.
[2017-08-30 12:02] VITALS: BP 134/83
--- NOTE | 2017-08-30 14:45 | DISCHARGE SUMMARY ---
Discharge Summary Admit Date: 08/29/17 Discharge Date: 08/30/17 Discharging Provider: Marilyn Nugent DO Primary Care Provider: NO PCP Code Status: Attempt Resuscitation Condition at Discharge: Stable Discharge Disposition: 01 Home, Self Care - DIAGNOSES Admission Diagnoses: 1. Gastroparesis diabeticorum 2. Hyperglycemia without acidosis but with ketones 3. Drug abuse history 4. Peripheral vascular disease 5. Coronary artery disease 6. History of osteomyelitis with toe amputations 7. Chronic pain 8. Hypertension 9. Personality disorder 10. Homeless single person Discharge Diagnoses with Status of Each Condition: 1. Gastroparesis diabeticorum- The patient has been started on and discharged home with a prescription for Reglan, 10 mg QID. 2. Hyperglycemia without acidosis but with ketones- The patient's hyperglycemia has been corrected, she has been taken off of the insulin drip, and her ketones have stopped. She may be safely discharged at this time. 3. Drug abuse history- The patient has a history of polysubstance abuse. She is homeless and lives in a tent. She also has a significant personality disorder. She has been offered many drug treatment programs but has refused them all. 4. Peripheral vascular disease- No evidence of exacerbation of peripheral vascular disease at this time. 5. Coronary artery disease- No complaints of chest pain, heart palpitations, or any other issues related to her coronary artery disease during this hospitalization. 6. History of osteomyelitis with toe amputations- Patient has a history of frostbite and recent toe amputations a couple of months ago. She says she is expressing discharge from 1 of the operative sites. Exam found no evidence of active cellulitis but we will send her home on clindamycin for 10 days for presumed infection. The wound has been cultured. 7. Chronic pain- Patient has a history of opiate abuse and drug-seeking. She also has a history of chronic pain; we will treat her with strong non-opiate pain relievers at home. 8. Hypertension- The patient has a history of hypertension but was normotensive/hypotensive during this admission. Resume home care. 9. 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 She refuses to get help, and refuses to take help when it is offered to her. 10. Homeless single person- The patient is presumably going back to her [facility]. She has left [facility] without her discharge instructions. She did request that we send all new prescriptions up to the [facility] in [place] as this is near where she is staying. As she was leaving the hospital she told the nurse that she had no intention of filling her prescriptions and that she would be back in a few days. The patient has a pattern where she comes to the hospital, her health needs and DKA are addressed, and then she leaves AMA, goes home to her tent and abuses drugs until she feels too sick to continue. She is typically admitted every 7-14 days. While she is inpatient she eats as much as she can and is generally abusive to the staff. - HPI History of Present Illness: From Dr Vides's H&P: This is a 36-year-old white female with frequent recurrence of DKA and admissions here. She has a history of type 1 diabetes, peripheral vascular disease, and coronary artery disease with prior MT, history of hypertension, personality disorder, she is homeless, there have been a history of osteomyelitis in the last 9 months several times requiring several toe amputations, and she has a history of noncompliance to medicine use and no PCP since everyone refuses to accept her as a patient. The patient is admitted with complaints of nausea and vomiting, mild generalized abdominal pain, and was found to have an elevated glucose in the 900s with small serum ketones but a normal pH on venous blood gas. She is being admitted for management of nausea , vomiting, and hyperglycemia. - HOSPITAL COURSE Hospital Course: The patient was admitted to the hospital, given IV fluids and placed on an insulin drip. After several hours she no longer showed ketones and by the next morning she was able to come off of the insulin drip. As she had no other acute complaints she was discharged. - ALLERGIES Allergies/Adverse Reactions: Allergies Allergy/AdvReac Type Severity Reaction Status Date / Time codeine Allergy Hives Verified 08/22/17 13:28 hydrocodone Allergy Hives Verified 08/22/17 13:28 morphine Allergy Itching Verified 08/22/17 13:28 milk AdvReac Cramps Verified 08/22/17 13:28 nitrofurantoin AdvReac Headache Verified 08/22/17 13:28 [From Macrobid] PAPER TAPE AdvReac Unknown Uncoded 08/01/17 17:52 - MEDICATIONS Home Medications: Ambulatory Orders Medication Instructions Recorded Confirmed Ibuprofen [Motrin] 600 mg PO Q6HR PRN #60 tablet 08/05/17 08/30/17 Blood Sugar Diagnostic [Glucose 1 each [facility] #120 strip 08/16/17 08/30/17 Test Strip] Lidocaine HCl [Lidocaine HCl 15 ml MM TIDWM #1 solution 08/16/17 08/30/17 Viscous] Nystatin Cream [Mycostatin Cream] 15 gm TOP BID #1 tube 08/16/17 08/30/17 Amitriptyline [Elavil] 25 mg PO HS #20 tablet 08/30/17 Aspirin [Aspirin EC] 81 mg PO DAILY #30 tablet.dr 08/30/17 Cilostazol [Pletal] 100 mg PO BID #60 tablet 08/30/17 Clindamycin HCl [Clindamycin 300MG 300 mg PO Q6H #40 capsule 08/30/17 CAP] DULoxetine [Cymbalta] 60 mg PO DAILY #30 capsule 08/30/17 Gabapentin [Neurontin] 900 mg PO TID #90 capsule 08/30/17 Insulin Aspart [NovoLOG] 12 unit SUBQ TIDWM #3 pen 08/30/17 Insulin Aspart [Novolog Flexpen] 25 unit SUBQ ACHS #5 each 08/30/17 Insulin Glargine [Lantus Solostar] 70 unit SUBQ DAILY #10 pen 08/30/17 Metoclopramide [Reglan] 10 mg PO ACHS #60 tablet 08/30/17 Metoprolol Succinate [Toprol Xl] 25 mg PO BID #60 tablet 08/30/17 [place], Disposable [Easy Touch 1 each [facility] #120 dis.needle 08/30/17 Hypodermic Needle] Oxybutynin [Ditropan] 5 mg PO BID #60 tablet 08/30/17 Syringe, Disposable, 60 ml 1 each [facility] #120 disp.syrin 08/30/17 [Syringe] cloNIDine [Catapres] 0.1 mg PO BID #60 tablet 08/30/17 diltiaZEM CD [Cardizem Cd] 120 mg PO DAILY #30 capsule 08/30/17 traMADol [Ultram] 50 mg PO Q6H PRN #10 tablet 08/30/17 - PHYSICAL EXAM AT DISCHARGE General Appearance: positive: No acute distress, Alert Eyes Bilateral: positive: Normal inspection, PERRL, EOMI, No lid inflammation, Conjunctivae nml, No scleral icterus ENT: positive: ENT inspection nml, Pharynx nml, No signs of dehydration Neck: positive: Nml inspection, Thyroid nml, No JVD, Trachea midline. negative : Thyromegaly Respiratory: positive: Chest non-tender, No respiratory distress, Breath sounds nml. negative: Wheezes, Rales, Rhonchi Cardiovascular: positive: Regular rate & rhythm, No murmur, No gallop Peripheral Pulses: positive: 1+ Abdomen: positive: Non-tender, No organomegaly, Nml bowel sounds, No distention. negative: Guarding, Rebound Back: positive: Nml inspection. negative: CVA tenderness (R), CVA tenderness (L ) Skin: positive: Color nml, No rash, Warm, Dry. negative: Cyanosis Extremities: positive: Non-tender, Full ROM, Nml appearance, No pedal edema, Other (Patient is status post several full and partial toe amputations) Neurologic/Psychiatric: positive: Oriented x3, CN's nml (2-12), Motor nml, Sensation nml. negative: Mood/affect nml (Patient is agitated) - LABS Result Diagrams: 08/30/17 06:29 08/30/17 06:29 - FOLLOW UP Follow Up: Follow-up with a primary care physician in 1 week. - TIME SPENT Time Spent in Discharge (Minutes): 35
== END 2017-08-30 13:00 | disposition home or self-care (01) | DRG 74 ==
LOC: EDBD → EDUNIT# → ED 17:13 → ICU 18:16
PROVIDERS: ADMIT Hospitalist; ATTEND Hospitalist
DX: E10.43 Type 1 diabetes mellitus with diabetic autonomic (poly)neuropathy (principal); K31.84 Gastroparesis; E10.51 Type 1 diabetes mellitus with diabetic peripheral angiopathy without gangrene; E10.65 Type 1 diabetes mellitus with hyperglycemia; I25.10 Atherosclerotic heart disease of native coronary artery without angina pectoris; G89.29 Other chronic pain; F11.11 Opioid abuse, in remission; I10 Essential (primary) hypertension; F60.9 Personality disorder, unspecified; F17.210 Nicotine dependence, cigarettes, uncomplicated; Z79.4 Long term (current) use of insulin; Z91.14 Patient's other noncompliance with medication regimen; Z59.0 Homelessness; Z76.5 Malingerer [conscious simulation]; I25.2 Old myocardial infarction; Z86.19 Personal history of other infectious and parasitic diseases; Z89.429 Acquired absence of other toe(s), unspecified side; Z72.89 Other problems related to lifestyle
CPT/HCPCS: 36415; 80048; 80053; 80306; 81001; 81003; 81025; 82009; 82040; 82803; 82947; 83036; 83690; 83735; 84100; 84484; 85025; 87086; 87150; 96361; 96374; 99284; 99285

== ENCOUNTER 2017-09-10 15:48 | Outpatient (CLI) | payer MEDICAID | END 2017-09-10 15:49 | disposition critical access hospital (66) | LOC: EMS 15:48 | PROVIDERS: ATTEND Surgery | DX: R42 Dizziness and giddiness (principal); R00.2 Palpitations | CPT/HCPCS: A0425; A0429; A0999 ==

== ENCOUNTER 2017-09-10 16:15 | Emergency (ER) | payer MEDICAID ==
[2017-09-10] MEDS ORDERED: SODIUM CHLORIDE 0.9% 1,000 ML IV ONE (16:21)
[2017-09-10 16:40] LABS: BASOPHILS # (AUTO) 0.1 10^3/uL (0.0-0.1); BASOPHILS % (AUTO) 1.1 %; EOSINOPHILS # (AUTO) 0.1 10^3/uL (0.0-0.7); EOSINOPHILS % (AUTO) 0.9 %; HGB - HEMOGLOBIN 12.5 g/dL (12.0-16.0); LYMPHOCYTES # (AUTO) 3.7 10^3/uL (1.5-3.5); LYMPHOCYTES % (AUTO) 44.4 %; MEAN CORPUSCULAR HEMOGLOBIN 25.2 pg (27.0-31.0); MEAN CORPUSCULAR HGB CONC 31.4 g/dL (32.0-36.0); MEAN CORPUSCULAR VOLUME 80.2 fL (81.0-99.0); MONOCYTES # (AUTO) 0.5 10^3/uL (0.0-1.0); MONOCYTES % (AUTO) 5.7 %; NEUTROPHILS % (AUTO) 47.9 %; PLT - PLATELET COUNT 384 10^3/uL (130-450); RED BLOOD COUNT 4.96 10^6/uL (4.20-5.40); RED CELL DISTRIBUTION WIDTH 18.4 % (12.0-15.0); WHITE BLOOD COUNT 8.3 x10^3/uL (4.8-10.8)
[2017-09-10 16:41] LABS: VBG BASE EXCESS 0.2 mmol/L (-2 - +2); VBG PCO2 47.1 mmHg (41-51); VBG PH 7.36 (7.31-7.41); VBG PO2 31.7 mmHg (25-47); VBG TOTAL CO2 27.5 mmol/L (24-29)
[2017-09-10 16:50] LABS: KETONES, SERUM (ACETEST) NEGATIVE (NEGATIVE)
[2017-09-10 16:55] LABS: ALBUMIN 4.1 g/dL (3.2-5.5); ALBUMIN/GLOBULIN RATIO 1.2 (1.0-2.2); ALKALINE PHOSPHATASE 141 IU/L (42-121); ALT ALANINE AMINOTRANSFERASE 47 IU/L (10-60); AST ASPARTATE AMINOTRANSFERASE 26 IU/L (10-42); BILIRUBIN,TOTAL 0.6 mg/dL (0.2-1.0); BUN - BLOOD UREA NITROGEN 27 mg/dL (6-20); CALCIUM 10.1 mg/dL (8.5-10.3); CARBON DIOXIDE - CO2 25 mmol/L (21-32); CHLORIDE 99 mmol/L (101-111); CK- CREATINE KINASE 30 IU/L (22-269); CREATININE 0.8 mg/dL (0.4-1.0); GFR - MDRD 82 (>89); GLUCOSE 184 mg/dL (70-100); LIPASE 55 U/L (22-51); MAGNESIUM 1.9 mg/dL (1.7-2.8); SODIUM 136 mmol/L (135-145); TOTAL PROTEIN 7.5 g/dL (6.7-8.2)
[2017-09-10] MEDS ORDERED: diphenhydrAMINE INJ 50 MG/ML VIAL IVP STA (17:37)
[2017-09-10] MEDS ORDERED: ONDANSETRON 4 MG/2 ML VIAL IVP STA (17:37)
[2017-09-10] MEDS ORDERED: oxyCOD/ACETAMIN 5 MG/325 MG TABLET PO STA (17:39)
[2017-09-10 19:55] VITALS: BP 95/54
--- NOTE | 2017-09-10 20:31 | ED Physician Documentation ---
History of Present Illness - Stated complaint Stated Complaint: DIZZY/WEAK - Chief complaint Chief Complaint: General - History obtained from History obtained from: Patient - Additonal information Additional information: 36-year-old female presents the emergency department for evaluation of dizziness and weakness. The patient is a type I diabetic who is poorly controlled and has a history of significant drug use. The patient reports taking her medication and denies being in DKA. The patient reports feeling generally weak and dizzy. The patient's denying chest pain, shortness of breath or abdominal pain. Symptoms are described as moderate. No other associated symptoms. No relieving factors. Review of Systems Constitutional: reports: Fatigue. denies: Fever Eyes: denies: Discharge Ears: denies: Ear pain Nose: denies: Congestion Cardiac: denies: Chest pain / pressure Respiratory: denies: Dyspnea GI: denies: Abdominal Pain : denies: Dysuria Skin: denies: Rash Musculoskeletal: denies: Neck pain Neurologic: reports: Generalized weakness. denies: Focal weakness, Altered mental status PD PAST MEDICAL HISTORY - Past Medical History Past Medical History: Yes Cardiovascular: Hypertension, High cholesterol, Peripheral Vascular Disease, [place] Respiratory: None Neuro: Other Endocrine/Autoimmune: Type 1 diabetes GI: Pancreatitis A AUXILIARY: None : None HEENT: None Psych: Depression, Anxiety, Panic attacks Musculoskeletal: Fibromyalgia Derm: None - Past Surgical History Past Surgical History: Yes General: Cholecystectomy HEENT: Tonsil/Adenoidectomy - Present Medications Home Medications: Ambulatory Orders Medication Instructions Recorded Confirmed Ibuprofen [Motrin] 600 mg PO Q6HR PRN #60 tablet 08/05/17 08/30/17 Blood Sugar Diagnostic [Glucose 1 each [facility] #120 strip 08/16/17 08/30/17 Test Strip] Lidocaine HCl [Lidocaine HCl 15 ml MM TIDWM #1 solution 08/16/17 08/30/17 Viscous] Nystatin Cream [Mycostatin Cream] 15 gm TOP BID #1 tube 08/16/17 08/30/17 Amitriptyline [Elavil] 25 mg PO HS #20 tablet 08/30/17 Aspirin [Aspirin EC] 81 mg PO DAILY #30 tablet. 08/30/17 Cilostazol [Pletal] 100 mg PO BID #60 tablet 08/30/17 Clindamycin HCl [Clindamycin 300MG 300 mg PO Q6H #40 capsule 08/30/17 CAP] DULoxetine [Cymbalta] 60 mg PO DAILY #30 capsule 08/30/17 Gabapentin [Neurontin] 900 mg PO TID #90 capsule 08/30/17 Insulin Aspart [NovoLOG] 12 unit SUBQ TIDWM #3 pen 08/30/17 Insulin Aspart [Novolog Flexpen] 25 unit SUBQ ACHS #5 each 08/30/17 Insulin Glargine [Lantus Solostar] 70 unit SUBQ DAILY #10 pen 08/30/17 Metoclopramide [Reglan] 10 mg PO ACHS #60 tablet 08/30/17 Metoprolol Succinate [Toprol Xl] 25 mg PO BID #60 tablet 08/30/17 [place], Disposable [Easy Touch 1 each [facility] #120 dis.needle 08/30/17 Hypodermic Needle] Oxybutynin [Ditropan] 5 mg PO BID #60 tablet 08/30/17 Syringe, Disposable, 60 ml 1 each [facility] #120 disp.syrin 08/30/17 [Syringe] cloNIDine [Catapres] 0.1 mg PO BID #60 tablet 08/30/17 diltiaZEM CD [Cardizem Cd] 120 mg PO DAILY #30 capsule 08/30/17 traMADol [Ultram] 50 mg PO Q6H PRN #10 tablet 08/30/17 - Allergies Allergies/Adverse Reactions: Allergies Allergy/AdvReac Type Severity Reaction Status Date / Time codeine Allergy Hives Verified 09/10/17 16:28 hydrocodone Allergy Hives Verified 09/10/17 16:28 morphine Allergy Itching Verified 09/10/17 16:28 milk AdvReac Cramps Verified 09/10/17 16:28 nitrofurantoin AdvReac Headache Verified 09/10/17 16:28 [From Macrobid] PAPER TAPE AdvReac Unknown Uncoded 09/10/17 16:28 - Social History Does the pt smoke?: Yes Smoking Status: Current every day smoker Does the pt drink ETOH?: No Does the pt have substance abuse?: Yes - Immunizations Immunizations are current?: Yes - POLST Patient has POLST: No POLST Status: Full Code PD ED PE NORMAL - General General: Alert and oriented X 3, No acute distress - HEENT HEENT: Atraumatic, PERRL, EOMI, Ears normal - Neck Neck: Supple, no meningeal sign - Respiratory Respiratory: No respiratory distress, Clear bilaterally - Abdomen Abdomen: Normal bowel sounds, Soft, Non tender - Derm Derm: Normal color - Extremities Extremities: No deformity - Neuro Neuro: Alert and oriented X 3, No motor deficit, Normal speech - Psych Psych: Normal mood PD ED PE EXPANDED - Cardiac Cardiac: Tachy, Regular Rhythm Results - Vitals Vitals: Vital Signs - 24 hr 09/10/17 09/10/17 09/10/17 16:42 18:17 19:53 Temperature 98.6 C H Heart Rate 114 H 114 H 118 H Respiratory 25 H 16 16 Rate Blood Pressure 104/70 114/84 H 95/54 L O2 Saturation 99 96 100 Oxygen O2 Source [Without Activity] Room air O2 Source Room air - EKG (time done) 16:42 Rate: Rate (enter#) Rhythm: Sinus tachycardia Intervals: Normal [place], QRS normal Ischemia: Non specific changes Other comments: Other comments (Sinus tachycardia, no acute ischemic changes) - Labs Labs: Laboratory Tests 09/10/17 09/10/17 09/10/17 16:30 16:30 16:30 WBC 8.3 RBC 4.96 Hgb 12.5 Hct 39.7 MCV 80.2 L MCH 25.2 L MCHC 31.4 L RDW 18.4 H Plt Count 384 MPV 8.0 Neut # (Auto) 4.0 Lymph # (Auto) 3.7 H [place] # (Auto) 0.5 Eos # (Auto) 0.1 Baso # (Auto) 0.1 Absolute Nucleated RBC 0.00 Nucleated RBC % 0.0 VBG pH 7.360 VBG pCO2 47.1 VBG pO2 31.7 VBG HCO3 26.0 VBG Total CO2 27.5 VBG O2 Saturation 58.5 L VBG Base Excess 0.2 Sodium 136 Potassium 4.3 Chloride 99 L Carbon Dioxide 25 Anion Gap 12.0 BUN 27 H Creatinine 0.8 Estimated GFR (MDRD) 82 L Glucose 184 H Calcium 10.1 Magnesium 1.9 Total Bilirubin 0.6 AST 26 ALT 47 Alkaline Phosphatase 141 H Total Creatine Kinase 30 Troponin I Total Protein 7.5 Albumin 4.1 Globulin 3.4 Albumin/Globulin Ratio 1.2 Lipase 55 H Serum Ketones NEGATIVE 09/10/17 16:30 WBC RBC Hgb Hct MCV MCH MCHC RDW Plt Count MPV Neut # (Auto) Lymph # (Auto) [place] # (Auto) Eos # (Auto) Baso # (Auto) Absolute Nucleated RBC Nucleated RBC % VBG pH VBG pCO2 VBG pO2 VBG HCO3 VBG Total CO2 VBG O2 Saturation VBG Base Excess Sodium Potassium Chloride Carbon Dioxide Anion Gap BUN Creatinine Estimated GFR (MDRD) Glucose Calcium Magnesium Total Bilirubin AST ALT Alkaline Phosphatase Total Creatine Kinase Troponin I < 0.04 Total Protein Albumin Globulin Albumin/Globulin Ratio Lipase Serum Ketones PD MEDICAL DECISION MAKING - ED course ED course: On reevaluation the patient was not in her room. The patient left a note stating that she had to leave to catch a bus. I was unable to give any follow- up instructions since the patient absconded from the emergency department. - Sepsis Event Vital Signs: Vital Signs - 24 hr 09/10/17 09/10/17 09/10/17 16:42 18:17 19:53 Temperature 98.6 C H Heart Rate 114 H 114 H 118 H Respiratory 25 H 16 16 Rate Blood Pressure 104/70 114/84 H 95/54 L O2 Saturation 99 96 100 Oxygen O2 Source [Without Activity] Room air O2 Source Room air Departure - Departure Disposition: ED [place] Clinical Impression: Dizzy, Weakness Condition: Good Instructions: ED Dizziness UKO
== END 2017-09-10 20:35 | disposition left against medical advice (07) ==
LOC: EDUNIT# → ED 16:15
DX: R42 Dizziness and giddiness (principal); R53.1 Weakness; I10 Essential (primary) hypertension; E10.9 Type 1 diabetes mellitus without complications; Z79.4 Long term (current) use of insulin; F17.200 Nicotine dependence, unspecified, uncomplicated; R00.0 Tachycardia, unspecified
CPT/HCPCS: 36415; 80053; 82009; 82550; 82803; 83690; 83735; 84484; 85025; 93005; 96361; 96374; 99283; 99284; A9270; J1200

== ENCOUNTER 2017-09-27 10:53 | Outpatient (CLI) | payer MEDICAID | END 2017-09-27 10:54 | disposition critical access hospital (66) | LOC: EMS 10:53 | PROVIDERS: ATTEND Surgery | DX: R73.09 Other abnormal glucose (principal); R11.2 Nausea with vomiting, unspecified; R52 Pain, unspecified | CPT/HCPCS: A0425; A0429; A0999 ==

== ENCOUNTER 2017-09-27 11:11 | Inpatient (IN) | payer MEDICAID ==
[2017-09-27 11:49] LABS: BASOPHILS # (AUTO) 0.1 10^3/uL (0.0-0.1); BASOPHILS % (AUTO) 0.7 %; EOSINOPHILS % (AUTO) 0.1 %; HGB - HEMOGLOBIN 12.9 g/dL (12.0-16.0); LYMPHOCYTES # (AUTO) 2.1 10^3/uL (1.5-3.5); LYMPHOCYTES % (AUTO) 20.9 %; MEAN CORPUSCULAR HEMOGLOBIN 25.6 pg (27.0-31.0); MEAN CORPUSCULAR HGB CONC 30.2 g/dL (32.0-36.0); MEAN CORPUSCULAR VOLUME 84.6 fL (81.0-99.0); MONOCYTES # (AUTO) 0.3 10^3/uL (0.0-1.0); MONOCYTES % (AUTO) 3.1 %; NEUTROPHILS # (AUTO) 7.7 10^3/uL (1.5-6.6); NEUTROPHILS % (AUTO) 75.2 %; PLT - PLATELET COUNT 394 10^3/uL (130-450); RED BLOOD COUNT 5.07 10^6/uL (4.20-5.40); RED CELL DISTRIBUTION WIDTH 18.3 % (12.0-15.0); WHITE BLOOD COUNT 10.2 x10^3/uL (4.8-10.8)
[2017-09-27 12:16] LABS: ALBUMIN 4.4 g/dL (3.2-5.5); ALBUMIN/GLOBULIN RATIO 1.1 (1.0-2.2); BILIRUBIN,TOTAL 2.5 mg/dL (0.2-1.0); CREATININE 0.9 mg/dL (0.4-1.0); TOTAL PROTEIN 8.4 g/dL (6.7-8.2)
--- NOTE | 2017-09-27 12:51 | ED Physician Documentation ---
PD HPI ABD PAIN - Stated complaint Stated Complaint: BODY ACHES WEAKNESS - Chief complaint Chief Complaint: Abd Pain - History obtained from History obtained from: Patient - History of Present Illness Timing - onset: Today (37-year-old woman with long-standing long-standing history of diabetes presents by ambulance with concern for DKA. 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 : None HEENT: None Psych: Depression, Anxiety, Panic attacks Musculoskeletal: Fibromyalgia Derm: None - Past Surgical History Past Surgical History: Yes General: Cholecystectomy HEENT: Tonsil/Adenoidectomy - Present Medications Home Medications: Ambulatory Orders Medication Instructions Recorded Confirmed Ibuprofen [Motrin] 600 mg PO Q6HR PRN #60 tablet 08/05/17 08/30/17 Blood Sugar Diagnostic [Glucose 1 each [facility] #120 strip 08/16/17 08/30/17 Test Strip] Lidocaine HCl [Lidocaine HCl 15 ml MM TIDWM #1 solution 08/16/17 08/30/17 Viscous] Nystatin Cream [Mycostatin Cream] 15 gm TOP BID #1 tube 08/16/17 08/30/17 Amitriptyline [Elavil] 25 mg PO HS #20 tablet 08/30/17 Aspirin [Aspirin EC] 81 mg PO DAILY #30 tablet. 08/30/17 Cilostazol [Pletal] 100 mg PO BID #60 tablet 08/30/17 Clindamycin HCl [Clindamycin 300MG 300 mg PO Q6H #40 capsule 08/30/17 CAP] DULoxetine [Cymbalta] 60 mg PO DAILY #30 capsule 08/30/17 Gabapentin [Neurontin] 900 mg PO TID #90 capsule 08/30/17 Insulin Aspart [NovoLOG] 12 unit SUBQ TIDWM #3 pen 08/30/17 Insulin Aspart [Novolog Flexpen] 25 unit SUBQ ACHS #5 each 08/30/17 Insulin Glargine [Lantus Solostar] 70 unit SUBQ DAILY #10 pen 08/30/17 Metoclopramide [Reglan] 10 mg PO ACHS #60 tablet 08/30/17 Metoprolol Succinate [Toprol Xl] 25 mg PO BID #60 tablet 08/30/17 Max, Disposable [Easy Touch 1 each [facility] #120 dis.needle 08/30/17 Hypodermic Needle] Oxybutynin [Ditropan] 5 mg PO BID #60 tablet 08/30/17 Syringe, Disposable, 60 ml 1 each [facility] #120 disp.syrin 08/30/17 [Syringe] cloNIDine [Catapres] 0.1 mg PO BID #60 tablet 08/30/17 diltiaZEM CD [Cardizem Cd] 120 mg PO DAILY #30 capsule 08/30/17 traMADol [Ultram] 50 mg PO Q6H PRN #10 tablet 08/30/17 - Allergies Allergies/Adverse Reactions: Allergies Allergy/AdvReac Type Severity Reaction Status Date / Time codeine Allergy Hives Verified 09/27/17 11:17 hydrocodone Allergy Hives Verified 09/27/17 11:17 morphine Allergy Itching Verified 09/27/17 11:17 milk AdvReac Cramps Verified 09/27/17 11:17 nitrofurantoin AdvReac Headache Verified 09/27/17 11:17 [From Macrobid] PAPER TAPE AdvReac Unknown Uncoded 09/10/17 16:28 - Social History Does the pt smoke?: Yes Smoking Status: Current every day smoker Does the pt drink ETOH?: No Does the pt have substance abuse?: Yes - Immunizations Immunizations are current?: Yes - POLST Patient has POLST: No POLST Status: Full Code PD ED PE NORMAL - Vitals Vital signs reviewed: Yes - General General: Other (She is lethargic and slow to arouse, she is breathing quickly. She is tachycardic.) - HEENT HEENT: PERRL, EOMI - Neck Neck: Supple, no meningeal sign, No bony TTP - Cardiac Cardiac: Other (tachy, reg, no mmr) - Respiratory Respiratory: No respiratory distress, Clear bilaterally - Abdomen Abdomen: Normal bowel sounds, Soft, Non tender - Back Back: No CVA TTP, No spinal TTP - Derm Derm: Normal color, Warm and dry - Extremities Extremities: No edema, No calf tenderness / cord - Neuro Eye Opening: To Voice Motor: Obeys Commands Verbal: Confused GCS Score: 13 - Psych Psych: Normal mood, Normal affect Results - Vitals Vitals: Vital Signs - 24 hr 09/27/17 09/27/17 11:14 12:59 Temperature 36.4 C L Heart Rate 119 H 119 H Respiratory 20 20 Rate Blood Pressure 132/79 H 135/86 H O2 Saturation 100 99 Oxygen O2 Source [Without Activity] Room air O2 Source Room air - Labs Labs: Laboratory Tests 09/27/17 09/27/17 09/27/17 11:45 11:45 11:45 WBC 10.2 RBC 5.07 Hgb 12.9 Hct 42.8 MCV 84.6 MCH 25.6 L MCHC 30.2 L RDW 18.3 H Plt Count 394 MPV 8.0 Neut # (Auto) 7.7 H Lymph # (Auto) 2.1 [place] # (Auto) 0.3 Eos # (Auto) 0.0 Baso # (Auto) 0.1 Absolute Nucleated RBC 0.00 Nucleated RBC % 0.0 VBG pH VBG pCO2 VBG pO2 VBG HCO3 VBG Total CO2 VBG O2 Saturation VBG Base Excess Sodium 127 L Potassium 4.8 Chloride 93 L Carbon Dioxide 12 L* Anion Gap 22.0 H BUN 28 H Creatinine 0.9 Estimated GFR (MDRD) 71 L Glucose 584 H* Calcium 9.0 Total Bilirubin 2.5 H AST 35 ALT 47 Alkaline Phosphatase 165 H Total Protein 8.4 H Albumin 4.4 Globulin 4.0 Albumin/Globulin Ratio 1.1 Lipase 26 Urine Acetest LARGE H 09/27/17 13:15 WBC RBC Hgb Hct MCV MCH MCHC RDW Plt Count MPV Neut # (Auto) Lymph # (Auto) [place] # (Auto) Eos # (Auto) Baso # (Auto) Absolute Nucleated RBC Nucleated RBC % VBG pH 7.079 L VBG pCO2 24.0 L VBG pO2 71.8 H VBG HCO3 6.9 L VBG Total CO2 7.7 L VBG O2 Saturation 87.8 H VBG Base Excess -21.5 L Sodium Potassium Chloride Carbon Dioxide Anion Gap BUN Creatinine Estimated GFR (MDRD) Glucose Calcium Total Bilirubin AST ALT Alkaline Phosphatase Total Protein Albumin Globulin Albumin/Globulin Ratio Lipase Urine Acetest Procedures - Central Line Central Line Preparation: Unable to obtain consent, Ultrasound used, Sterile prep and drape Central line location: Right IJ Central line type: Triple lumen Central line aftercare: Chlorhexidine disc placed, Secured, Placement confirmed , No pneumothorax, No complications, Bundle checklist complete, Pt tolerated well PD MEDICAL DECISION MAKING - ED course ED course: 37-year-old woman with frequent DKA, poor IV access, I was unable to place a peripheral line and place a central line without consent given her obtunded status. The central line was pulled back 2cm after the cxr by the RN. Given IVF bolus, 1L plasmalyte and twice maintenance and started insulin drip at 6 units/hr. - Critical Care Time(min): 45 Time Includes: Direct patient care, Review records, Reassess patient, Document care, Coordinate care, Medical consult Data interpretation: Labs, Pulse ox Procedures included in critical care time: Peripheral IV Procedures excluded from critical care time: Central IV - Sepsis Event Vital Signs: Vital Signs - 24 hr 09/27/17 09/27/17 11:14 12:59 Temperature 36.4 C L Heart Rate 119 H 119 H Respiratory 20 20 Rate Blood Pressure 132/79 H 135/86 H O2 Saturation 100 99 Oxygen O2 Source [Without Activity] Room air O2 Source Room air Departure - Departure Disposition: 66 [facility] DC/Xfer Clinical Impression: DKA, type 1 Qualifiers: Diabetes mellitus complication detail: without coma Qualified Code(s): E10.10 - Type 1 diabetes mellitus with ketoacidosis without coma Condition: Critical
[2017-09-27] MEDS ORDERED: ELECTROLYTE-A SOLUTION 1,000 ML IV ONE (13:25)
[2017-09-27] MEDS ORDERED: INSULIN REGULAR HUMAN 100 UNIT in SODIUM CHLORIDE 0.9% 100ML 99 ML IV STA (13:25)
[2017-09-27 13:29] LABS: VBG BASE EXCESS -21.5 mmol/L (-2 - +2); VBG PH 7.079 (7.31-7.41); VBG PO2 71.8 mmHg (25-47); VBG TOTAL CO2 7.7 mmol/L (24-29)
[2017-09-27] MEDS ORDERED: ELECTROLYTE-A SOLUTION 1,000 ML IV SCH (14:00)
--- NOTE | 2017-09-27 14:16 | XRAY Report ---
Procedure Date: 09/27/2017 Accession Number: [id number] / [id number] Procedure: XR - Chest for Line Placement CPT Code: FULL RESULT: EXAM: CHEST RADIOGRAPHY EXAM DATE: 09/27/2017 01:46 PM. CLINICAL HISTORY: RIJ line. COMPARISON: CHEST 1 VIEW 07/03/2017 11:10 AM. TECHNIQUE: 1 view. FINDINGS: Lungs/Pleura: No focal opacities evident. No pleural effusion. No pneumothorax. Mediastinum: Within exam limitations, the cardiomediastinal contour is normal. Other: Right internal jugular central venous catheter tip is in the right atrium, approximately 3 cm below the superior cavoatrial junction. IMPRESSION: Right internal jugular central venous catheter tip is in the right atrium, approximately 3 cm below the superior cavoatrial junction. RADIA
[2017-09-27] MEDS ORDERED: HYDROcod/ACETAM 5/325 MG TABLET PO PRN (14:34)
[2017-09-27 14:57] LABS: BASOPHILS # (AUTO) 0.1 10^3/uL (0.0-0.1); HGB - HEMOGLOBIN 12.2 g/dL (12.0-16.0); LYMPHOCYTES # (AUTO) 1.4 10^3/uL (1.5-3.5); LYMPHOCYTES % (AUTO) 14.5 %; MEAN CORPUSCULAR HEMOGLOBIN 25.7 pg (27.0-31.0); MEAN CORPUSCULAR HGB CONC 30.8 g/dL (32.0-36.0); MEAN CORPUSCULAR VOLUME 83.4 fL (81.0-99.0); MEAN PLATELET VOLUME 7.4 fL (7.9-10.8); MONOCYTES # (AUTO) 0.3 10^3/uL (0.0-1.0); MONOCYTES % (AUTO) 2.8 %; NEUTROPHILS # (AUTO) 7.8 10^3/uL (1.5-6.6); NEUTROPHILS % (AUTO) 81.7 %; PLT - PLATELET COUNT 423 10^3/uL (130-450); RED BLOOD COUNT 4.74 10^6/uL (4.20-5.40); RED CELL DISTRIBUTION WIDTH 18.2 % (12.0-15.0); WHITE BLOOD COUNT 9.6 x10^3/uL (4.8-10.8)
[2017-09-27 15:00] LABS: VBG BASE EXCESS -21.3 mmol/L (-2 - +2); VBG PCO2 21.3 mmHg (41-51); VBG PH 7.105 (7.31-7.41); VBG PO2 77.8 mmHg (25-47); VBG TOTAL CO2 7.2 mmol/L (24-29)
[2017-09-27] MEDS ORDERED: INSULIN REGULAR HUMAN 100 UNIT in SODIUM CHLORIDE 0.9% 100ML 99 ML IV SCH (15:00)
[2017-09-27] MEDS ORDERED: ONDANSETRON 4 MG/2 ML VIAL IVP STA (15:01)
[2017-09-27 15:10] LABS: KETONES, SERUM (ACETEST) LARGE (NEGATIVE)
[2017-09-27 15:12] LABS: GLUCOSE 463 mg/dL (70-100); MAGNESIUM 2.5 mg/dL (1.7-2.8); PHOSPHORUS 5.1 mg/dL (2.5-4.6)
[2017-09-27 15:13] LABS: CALCIUM 8.7 mg/dL (8.5-10.3); CREATININE 1.1 mg/dL (0.4-1.0); MAGNESIUM 2.5 mg/dL (1.7-2.8)
[2017-09-27 15:14] LABS: MUDS CUTOFF CONCENTRATIONS CUTOFF CONC BELOW:
[2017-09-27 15:28] LABS: AMPHETAMINE SCREEN,URINE POSITIVE (NEGATIVE); BENZODIAZEPINES SCREEN, URINE NEGATIVE (NEGATIVE); COCAINE SCREEN URINE NEGATIVE (NEGATIVE); METHADONE SCREEN, URINE NEGATIVE (NEGATIVE); METHAMPHETAMINES SCREEN, URINE POSITIVE (NEGATIVE); OPIATE SCREEN, URINE NEGATIVE (NEGATIVE); OXYCODONE SCREEN, URINE NEGATIVE (NEGATIVE); PROPOXYPHENE SCREEN, URINE NEGATIVE (NEGATIVE); TRICYCLIC ANTIDEPRESSANT,URINE NEGATIVE (NEGATIVE)
[2017-09-27 15:31] LABS: BILIRUBIN,URINE NEGATIVE (NEGATIVE); GLUCOSE, URINE (UA) 500 mg/dL (NEGATIVE); KETONES,URINE (UA) >=80 mg/dL (NEGATIVE); LEUKOCYTE ESTERASE, URINE NEGATIVE (NEGATIVE); NITRITE,URINE NEGATIVE (NEGATIVE); OCCULT BLOOD,URINE NEGATIVE (NEGATIVE); PH,URINE 5.5 PH (5.0-7.5); PROTEIN,URINE NEGATIVE (NEGATIVE); UROBILINOGEN,URINE 0.2 (NORMAL) E.U./dL (NORMAL)
[2017-09-27 15:40] LABS: CLARITY,URINE CLEAR (CLEAR)
[2017-09-27 15:55] LABS: HEMOGLOBIN A1C 1.39 g/dL; HEMOGLOBIN A1C % 11.9 % (4.6-6.2)
[2017-09-27] MEDS ORDERED: NS W/20 MEQ KCL 1,000 ML IV SCH (16:00)
[2017-09-27 16:38] LABS: KETONES, SERUM (ACETEST) LARGE (NEGATIVE)
[2017-09-27 16:40] LABS: BUN - BLOOD UREA NITROGEN 29 mg/dL (6-20); CALCIUM 8.1 mg/dL (8.5-10.3); CARBON DIOXIDE - CO2 13 mmol/L (21-32); CHLORIDE 103 mmol/L (101-111); CREATININE 0.9 mg/dL (0.4-1.0); GFR - MDRD 71 (>89); GLUCOSE 267 mg/dL (70-100); MAGNESIUM 2.2 mg/dL (1.7-2.8); SODIUM 132 mmol/L (135-145)
[2017-09-27] MEDS: SODIUM CHLORIDE FLUSH 0.9% 10 ML SYRINGE IVP SCH ×2 (17:25→20:32)
[2017-09-27] MEDS: traMADol 50 MG TABLET PO PRN (18:09)
[2017-09-27] MEDS: D5.45NS W/20 MEQ KCL 1,000 ML IV SCH (18:09)
[2017-09-27 19:02] LABS: BUN - BLOOD UREA NITROGEN 22 mg/dL (6-20); CALCIUM 8.2 mg/dL (8.5-10.3); CARBON DIOXIDE - CO2 14 mmol/L (21-32); CHLORIDE 104 mmol/L (101-111); CREATININE 0.7 mg/dL (0.4-1.0); GFR - MDRD 95 (>89); GLUCOSE 157 mg/dL (70-100); MAGNESIUM 2.1 mg/dL (1.7-2.8); SODIUM 131 mmol/L (135-145)
[2017-09-27 19:04] LABS: KETONES, SERUM (ACETEST) LARGE (NEGATIVE)
[2017-09-27] MEDS: cloNIDine 0.1 MG TABLET PO SCH (20:18)
[2017-09-27] MEDS: METOCLOPRAMIDE 10 MG TABLET PO SCH (20:19)
[2017-09-27] MEDS: METOPROLOL SUCCINATE 25 MG TABLET PO SCH (20:19)
[2017-09-27] MEDS: CILOSTAZOL 100 MG TABLET PO SCH (20:19)
[2017-09-27] MEDS: SODIUM CHLORIDE FLUSH 0.9% 10 ML SYRINGE IVP PRN (20:32)
[2017-09-28] MEDS: SODIUM CHLORIDE FLUSH 0.9% 10 ML SYRINGE IVP SCH ×3 (00:21→12:07)
[2017-09-28 00:34] LABS: GLUCOSE 104 mg/dL (70-100)
[2017-09-28 00:49] LABS: KETONES, SERUM (ACETEST) SMALL (NEGATIVE)
[2017-09-28] MEDS: D5.45NS W/20 MEQ KCL 1,000 ML IV SCH ×2 (01:02→07:52)
[2017-09-28] MEDS: SODIUM CHLORIDE FLUSH 0.9% 10 ML SYRINGE IVP PRN ×4 (01:20→06:08)
[2017-09-28] MEDS ORDERED: DEXTROSE 50% ABBOJECT 25 GM/50 ML SYRINGE ONE (02:44)
[2017-09-28 04:43] LABS: EOSINOPHILS # (AUTO) 0.1 10^3/uL (0.0-0.7); MEAN PLATELET VOLUME 7.3 fL (7.9-10.8)
[2017-09-28 04:46] LABS: BASOPHILS % (AUTO) 0.4 %; EOSINOPHILS % (AUTO) 0.9 %; HGB - HEMOGLOBIN 10.7 g/dL (12.0-16.0); LYMPHOCYTES # (AUTO) 3.2 10^3/uL (1.5-3.5); LYMPHOCYTES % (AUTO) 34.4 %; MEAN CORPUSCULAR HEMOGLOBIN 25.4 pg (27.0-31.0); MEAN CORPUSCULAR HGB CONC 32.2 g/dL (32.0-36.0); MEAN CORPUSCULAR VOLUME 78.9 fL (81.0-99.0); MONOCYTES # (AUTO) 0.7 10^3/uL (0.0-1.0); MONOCYTES % (AUTO) 7.4 %; NEUTROPHILS # (AUTO) 5.3 10^3/uL (1.5-6.6); NEUTROPHILS % (AUTO) 56.9 %; PLT - PLATELET COUNT 378 10^3/uL (130-450); RED BLOOD COUNT 4.22 10^6/uL (4.20-5.40); RED CELL DISTRIBUTION WIDTH 18.1 % (12.0-15.0); WHITE BLOOD COUNT 9.3 x10^3/uL (4.8-10.8)
[2017-09-28 04:59] LABS: ALBUMIN 3.5 g/dL (3.2-5.5); ALBUMIN/GLOBULIN RATIO 1.3 (1.0-2.2); ALKALINE PHOSPHATASE 112 IU/L (42-121); ALT ALANINE AMINOTRANSFERASE 28 IU/L (10-60); AST ASPARTATE AMINOTRANSFERASE 18 IU/L (10-42); BUN - BLOOD UREA NITROGEN 14 mg/dL (6-20); CARBON DIOXIDE - CO2 22 mmol/L (21-32); CHLORIDE 105 mmol/L (101-111); CREATININE 0.6 mg/dL (0.4-1.0); GFR - MDRD 113 (>89); GLUCOSE 177 mg/dL (70-100); MAGNESIUM 1.9 mg/dL (1.7-2.8); SODIUM 134 mmol/L (135-145); TOTAL PROTEIN 6.3 g/dL (6.7-8.2)
[2017-09-28] MEDS ORDERED: INSULIN REGULAR HUMAN 100 UNIT in SODIUM CHLORIDE 0.9% 100ML 99 ML IV SCH (05:00)
[2017-09-28 05:31] LABS: KETONES, SERUM (ACETEST) SMALL (NEGATIVE)
[2017-09-28] MEDS ORDERED: POTASSIUM PHOSPHATE 15 MMOL in SODIUM CHLORIDE 0.9% 250 ML IV ONE ×2 (05:54→08:00)
[2017-09-28] MEDS: METOCLOPRAMIDE 10 MG TABLET PO SCH ×4 (06:08→20:43)
[2017-09-28] MEDS: GABAPENTIN 300 MG CAPSULE PO SCH ×3 (06:08→20:44)
[2017-09-28 06:39] LABS: VBG PH 7.328 (7.31-7.41)
[2017-09-28 06:43] LABS: PT - PROTHROMBIN TIME 11.7 secs (9.9-12.6)
--- NOTE | 2017-09-28 06:50 | HISTORY & PHYSICAL EXAMINATION ---
Chief Complaint - Chief Complaint Chief Complaint: Weakness and confusion History of Present Illness - Admitted From Admitted From:: The patient is homeless and lives in the community - History Obtained From History obtained from: Emergency department physician - History of Present Illness HPI Comment/Other: Ms. Patti Calero is a very unfortunate homeless drug addicted 37 year old white female who is very well known to our service because of her extremely frequent admissions (usually at least twice monthly) for diabetic ketoacidosis. She has a history which includes but is not limited to type one diabetes mellitus which is extremely poorly controlled by her, noncompliance with her medications, coronary artery disease status post mycardial infarction, peripheral arterial disease, frostbite with 3 partial toe amputations, bipolar disorder and mental illness. Today she presented with abdominal pain, aches, and feeling as if she is in DKA. She was confused and obtunded. A central line was placed in the ED as the pt has very poor peripheral access. She was found to have a BS of 584, a pH of 7.079, and large ketones. She was hyponatremic at 127. She will be admitted for DKA. History - Past Medical History Cardiovascular: reports: Hypertension, High cholesterol, Peripheral Vascular Disease, ID Respiratory: reports: None Neuro: reports: Other Endocrine/Autoimmune: reports: Type 1 diabetes GI: reports: Pancreatitis ELECTRONIC ENGRAVER: reports: None : reports: None HEENT: reports: None Psych: reports: Depression, Anxiety, Panic attacks Musculoskeletal: reports: Fibromyalgia Derm: reports: None MRSA Hx?: Yes - Past Surgical History General: reports: Cholecystectomy HEENT: reports: Tonsil/Adenoidectomy - Family & Social History Family History: Father: , CAD, CVA/TIA, Hyperlipidemia, Hypertension, ID Living arrangement: Homeless Living Situation: With friend(s) Social History Notes: The patient is homeless and lives in a tent. 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 The patient has 2 children who live with her stepmother as she has been unable to get her life together enough to be able to help raise them. She has been living on [facility] for the last 4 years prior to that she lived in [place]. She does smoke a few cigarettes a day denies any alcohol use. She does continue to use methamphetamine. - Substance History Use: Uses substance without health or social issues: NONE Abuse: Recurrent use of substance despite neg consequences: Amphetamine - POLST Patient has POLST: No POLST Status: Full Code Meds/Allgy - Home Medications Home Medications: Ambulatory Orders Medication Instructions Recorded Confirmed Ibuprofen [Motrin] 600 mg PO Q6HR PRN #60 tablet 08/05/17 08/30/17 Blood Sugar Diagnostic [Glucose 1 each [facility] #120 strip 08/16/17 08/30/17 Test Strip] Lidocaine HCl [Lidocaine HCl 15 ml MM TIDWM #1 solution 08/16/17 08/30/17 Viscous] Nystatin Cream [Mycostatin Cream] 15 gm TOP BID #1 tube 08/16/17 08/30/17 Amitriptyline [Elavil] 25 mg PO HS #20 tablet 08/30/17 Aspirin [Aspirin EC] 81 mg PO DAILY #30 tablet.dr 08/30/17 Cilostazol [Pletal] 100 mg PO BID #60 tablet 08/30/17 Clindamycin HCl [Clindamycin 300MG 300 mg PO Q6H #40 capsule 08/30/17 CAP] DULoxetine [Cymbalta] 60 mg PO DAILY #30 capsule 08/30/17 Gabapentin [Neurontin] 900 mg PO TID #90 capsule 08/30/17 Insulin Aspart [NovoLOG] 12 unit SUBQ TIDWM #3 pen 08/30/17 Insulin Aspart [Novolog Flexpen] 25 unit SUBQ ACHS #5 each 08/30/17 Insulin Glargine [Lantus Solostar] 70 unit SUBQ DAILY #10 pen 08/30/17 Metoclopramide [Reglan] 10 mg PO ACHS #60 tablet 08/30/17 Metoprolol Succinate [Toprol Xl] 25 mg PO BID #60 tablet 08/30/17 [place], Disposable [Easy Touch 1 each [facility] #120 dis.needle 08/30/17 Hypodermic Needle] Oxybutynin [Ditropan] 5 mg PO BID #60 tablet 08/30/17 Syringe, Disposable, 60 ml 1 each [facility] #120 disp.syrin 08/30/17 [Syringe] cloNIDine [Catapres] 0.1 mg PO BID #60 tablet 08/30/17 diltiaZEM CD [Cardizem Cd] 120 mg PO DAILY #30 capsule 08/30/17 traMADol [Ultram] 50 mg PO Q6H PRN #10 tablet 08/30/17 - Allergies Allergies/Adverse Reactions: Allergies Allergy/AdvReac Type Severity Reaction Status Date / Time codeine Allergy Hives Verified 09/27/17 11:17 hydrocodone Allergy Hives Verified 09/27/17 11:17 morphine Allergy Itching Verified 09/27/17 11:17 milk AdvReac Cramps Verified 09/27/17 11:17 nitrofurantoin AdvReac Headache Verified 09/27/17 11:17 [From Macrobid] PAPER TAPE AdvReac Unknown Uncoded 09/10/17 16:28 Review of Systems - Constitutional Constitutional: reports: Fatigue, Malaise, Weakness, Weight loss. denies: Fever , Chills - Eyes Eyes: reports: Blurred vision. denies: Pain, Irritation, Amaurosis, Vision loss , Dipolpia - Ears, Nose & Throat Ears, Nose & Throat: denies: Ear pain, Hearing loss, Hearing aids, Tinnitus, Vertigo, Nasal pain, Nasal discharge, Nosebleeds - Cardiovascular Cariovascular: denies: Irregular heart rate, Palpitations, Chest pain, Edema, Syncope, Exertional dyspnea - Respiratory Respiratory: denies: Cough, Sputum production, Wheezing, Hemoptysis, Orthopnea, SOB at rest - Gastrointestinal Gastrointestinal: reports: Abdominal pain. denies: Abdominal distention, Constipation, Diarrhea, Rectal bleeding, Nausea, Vomiting - Genitourinary Genitourinary: denies: Dysuria, Frequency, Urgency, Hematuria - Musculoskeletal Musculoskeletal: reports: Back pain, Muscle aches. denies: Muscle pain, Limited range of motion, Gout, Joint swelling - Integumentary Integumentary: denies: Rash, Pruritis, Lesions - Neurological Neurological: reports: General weakness, Headache. denies: Focal weakness, Dizziness, Numbness, Seizures - Psychiatric Psychiatric: reports: Anxiety. denies: Suicidal, Hallucinations, Homicidal - Endocrine Endocrine: denies: Polyuria, Polydypsia, Polyphagia - Hematologic/Lymphatic Hematologic/Lymphatic: denies: Anemia, Bruising, Petechiae, Lymphadenopathy - All Other Systems All Other Systems: reports: Reviewed and negative Exam - Vital Signs Reviewed Vital Signs: Yes Vital Signs: Vital Signs x48h Temp Pulse Resp BP BP Pulse Ox 09/28/17 06:00 37.2 C 108 H 18 139/87 H 98 09/28/17 05:00 111 H 22 163/91 H 99 09/28/17 04:00 109 H 19 135/86 H 98 09/28/17 03:00 108 H 19 135/86 H 97 09/28/17 02:00 106 H 24 130/90 H 98 09/28/17 01:00 111 H 18 144/90 H 99 09/28/17 00:20 112 H 19 134/86 H 98 09/27/17 23:00 110 H 13 151/102 H 97 - Physical Exam General Appearance: positive: Mild distress, Lethargic Eyes Bilateral: positive: Normal inspection, PERRL, EOMI, No lid inflammation, Conjunctivae nml, No scleral icterus ENT: positive: ENT inspection nml, Pharynx nml, No signs of dehydration. negative: Purulent nasal drainage Neck: positive: Nml inspection, Thyroid nml, No JVD, Trachea midline. negative : Thyromegaly Respiratory: positive: Chest non-tender, No respiratory distress, Breath sounds nml. negative: Wheezes, Rales, Rhonchi Cardiovascular: positive: Regular rate & rhythm, No murmur, No gallop Peripheral Pulses: positive: 1+ Abdomen: positive: Non-tender, No organomegaly, Nml bowel sounds, No distention. negative: Guarding, Rebound Back: positive: Nml inspection. negative: CVA tenderness (R), CVA tenderness (L ) Skin: positive: Color nml, No rash, Warm, Dry. negative: Cyanosis, Decubitus, Embolic lesions Extremities: positive: Full ROM, Nml appearance, No pedal edema, Other ( tenderness to the partially amputated toes- no signs of infection, no open lesions). negative: Calf tenderness Neurologic/Psychiatric: positive: Motor nml, Sensation nml, Disoriented to time , Weakness, Depressed mood/affect Conclusion/Plan - Problem List (1) DKA (diabetic ketoacidoses) Conclusion/Plan: We will admit the patient to the intensive care unit on an insulin drip, check her ketones and ABGs serially untill corrected, rehydrate her aggressively, correct her electrolyte abnormalities, and address her multiple comorbidities. Qualifiers: Diabetes mellitus type: type 1 Diabetes mellitus complication detail: without coma Qualified Code(s): E10.10 - Type 1 diabetes mellitus with ketoacidosis without coma (2) IDDM (insulin dependent diabetes mellitus) Conclusion/Plan: The patient has a long history of noncompliance with her medications due to her mental illness and her drug addiction. Unfortunately, this pattern does not seem to be able to change despite our multiple team approaches and attempts. I have called in her medications and sent prescriptions to pharmacies multiple times and they have never been picked up by the patient. At this point there seems to be little hope of her changing, however we will continue to try to educate her and help her. (3) Methamphetamine abuse, episodic Conclusion/Plan: The Patient denies having used methamphetamines recently however her toxicology came back positive for methamphetamine and amphetamine metabolites. There is no need to worry about withdrawal from methamphetamine and she will just sleep. (4) PVD (peripheral vascular disease) Conclusion/Plan: The patient's partially amputated toes are tender, but they are warm with good capillary refill. No signs of ischemia noted. (5) Coronary artery disease with history of myocardial infarction without history of CABG Conclusion/Plan: The patient EKG on admission showed sinus tachycardia and did not showing signs of ischemia. She has no complaints of chest pain. We will place the patient on telemetry in intensive care unit. (6) Personal history of noncompliance with medical treatment Conclusion/Plan: The patient is a 37 your old homeless female with a history of bipolar disorder and mental illness who is addicted to methamphetamine. There seems to be a little hope of compliance with her medical treatment in her current situation and unless this changes this unfortunate woman will likely from her multiple disease processes much earlier than she should have. - Lab Results Lab results reviewed: Yes Omar Bones: 09/28/17 04:25 09/28/17 04:25 - EKG Results EKG Interpreted Independently: Yes EKG Comparison: Unchanged from prior EKG EKG Findings: sinus tachycardia rate 111, no signs of ischemia Core Measures - Anticipated LOS I expect patient to be DC'd or transferred within 96 hours.: Yes - DVT/VTE - Prophylaxis VTE/DVT Device ordered at admit?: Yes
[2017-09-28] MEDS ORDERED: CALCIUM GLUCONATE 1,000 MG in SODIUM CHLORIDE 0.9% 50 ML IV ONE (06:53)
[2017-09-28] MEDS: cloNIDine 0.1 MG TABLET PO SCH ×2 (08:03→20:43)
[2017-09-28] MEDS: METOPROLOL SUCCINATE 25 MG TABLET PO SCH ×2 (08:03→20:43)
[2017-09-28] MEDS: CILOSTAZOL 100 MG TABLET PO SCH ×2 (08:03→20:43)
[2017-09-28] MEDS: diltiaZEM CD 120 MG CAPSULE PO SCH (08:05)
[2017-09-28] MEDS: traMADol 50 MG TABLET PO PRN ×3 (09:07→20:44)
[2017-09-28 09:55] LABS: HCG UR QUAL NEGATIVE
[2017-09-28] MEDS: INSULIN GLARGINE 300 UNIT/3 ML PEN SUBQ SCH (11:15)
[2017-09-28] MEDS ORDERED: ACETAMINOPHEN 325 MG TABLET PO PRN (11:57)
[2017-09-28] MEDS: INSULIN ASPART 300 UNIT/3 ML PEN SUBQ SCH ×3 (11:57→20:42)
--- NOTE | 2017-09-28 19:48 | PROVIDER PROGRESS NOTE ---
Assessment/Plan - Problem List (1) DKA (diabetic ketoacidoses) Qualifiers: Diabetes mellitus type: type 1 Diabetes mellitus complication detail: without coma Qualified Code(s): E10.10 - Type 1 diabetes mellitus with ketoacidosis without coma Assessment/Plan: Anion gap is closed this am and BG is improved Will discontinue insulin drip and place on SS insulin and lantus Monitor BG ACHS Qualifiers: Diabetes mellitus type: type 1 Diabetes mellitus complication detail: without coma Qualified Code(s): E10.10 - Type 1 diabetes mellitus with ketoacidosis without coma (2) IDDM (insulin dependent diabetes mellitus) Conclusion/Plan: The patient has a long history of noncompliance with her medications due to her mental illness and her drug addiction. Unfortunately, this pattern does not seem to be able to change despite our multiple team approaches and attempts. We have called in her medications and sent prescriptions to pharmacies multiple times and they have never been picked up by the patient. At this point there seems to be little hope of her changing, however we will continue to try to educate her and help her. (3) Methamphetamine abuse, episodic Conclusion/Plan: The Patient denied having used methamphetamines recently however today she did admit to using last week and her toxicology came back positive for methamphetamine and amphetamine metabolites. There is no need to worry about withdrawal from methamphetamine and she will just sleep. (4) PVD (peripheral vascular disease) Conclusion/Plan: The patient's partially amputated toes are tender, but they are warm with good capillary refill. No signs of ischemia noted. (5) Personal history of noncompliance with medical treatment Conclusion/Plan: The patient is a 37 year old homeless female with a history of bipolar disorder and mental illness who is addicted to methamphetamine. There seems to be a little hope of compliance with her medical treatment in her current situation and unless this changes this unfortunate woman will likely from her multiple disease processes much earlier than she should have. - Current Meds Current Meds: Current Medications Generic Name Dose Route Start Last Admin Trade Name Freq PRN Reason Stop Dose Admin Acetaminophen 650 mg 09/28/17 11:57 09/28/17 12:27 Tylenol PO 650 mg Q4HR PRN Administration Pain or Fever > 38C (100.4F) Cilostazol 100 mg 09/27/17 21:00 09/28/17 08:03 Pletal PO 100 mg BID SYLVIA Administration Clonidine HCl 0.1 mg 09/27/17 21:00 09/28/17 08:03 Catapres PO 0.1 mg BID SYLVIA Administration Diltiazem HCl 120 mg 09/28/17 09:00 09/28/17 08:05 Cardizem Cd PO 120 mg DAILY SYLVIA Administration Gabapentin 900 mg 09/28/17 06:00 09/28/17 14:32 Neurontin PO 900 mg TID SYLVIA Administration Insulin Aspart 1 - 9 unit 09/28/17 12:00 09/28/17 17:15 Novolog SUBQ 1 unit 0800,1200,1700,2100 SYLVIA Administration Protocol Insulin Glargine 70 unit 09/28/17 11:00 09/28/17 11:15 Lantus Solostar SUBQ 70 unit DAILY SYLVIA Administration Metoclopramide HCl 10 mg 09/27/17 21:00 09/28/17 16:43 Reglan PO Not Given ACHS SYLVIA Metoprolol Succinate 25 mg 09/27/17 21:00 09/28/17 08:03 Toprol Xl PO 25 mg BID SYLVIA Administration Sodium Chloride 10 ml 09/27/17 17:00 09/28/17 12:07 Normal Saline Flush 0.9% IVP 30 ml 0100,0900,1700 SYLVIA Administration Sodium Chloride 10 ml 09/27/17 14:34 09/28/17 06:08 Normal Saline Flush 0.9% IVP 20 ml PRN PRN Administration NEEDED PER PROVIDER ORDERS Tramadol HCl 50 mg 09/27/17 17:34 09/28/17 17:15 Ultram PO 50 mg Q6H PRN Administration MOD PAIN 5-7 - Lab Result Lab results reviewed: Yes Fish Bone Diagrams: 09/29/17 05:05 09/29/17 05:05 - Diagnostic Imaging Results Diagnostic Imaging Results: Final report reviewed - Additional Planning Condition/Complexity: Improved My Orders: My Active Orders 09/28/17 10:37 Blood Glucose Checks - Eating [RC] 0800,1200,1700,2100 Initiate Hypoglycemia Protocol [RC] .protocol 09/28/17 11:00 Insulin Glargine [Lantus Solostar] 70 unit SUBQ DAILY 09/28/17 11:57 Acetaminophen [Tylenol] 650 mg PO Q4HR PRN 09/28/17 12:00 Insulin Aspart [NovoLOG] 1 - 9 unit SUBQ 0800,1200,1700,2100 09/28/17 Lunch Carb-controlled Diet [DIET] 09/29/17 05:00 A1C [CHEM] DAILYLAB Plan Discussed with:: Patient Time Spent: 31-60 minutes Subjective - Subjective Patient Reports: Other (Complaining of aching all over and feels anxious.) Nursing Reports: No Complaints Objective Vital Signs: Vital Signs - 24 hr 09/27/17 09/27/17 09/27/17 20:00 21:00 22:00 Temperature 36.2 C L Heart Rate [ 126 H 114 H 120 H Monitoring electrodes] Respiratory 20 19 25 H Rate Blood Pressure 140/93 H [Left Brachial artery] Blood Pressure 170/103 H 152/108 H [Right Brachial artery] O2 Saturation 99 98 100 09/27/17 09/28/17 09/28/17 23:00 00:20 01:00 Temperature Heart Rate [ 110 H 112 H 111 H Monitoring electrodes] Respiratory 13 19 18 Rate Blood Pressure [Left Brachial artery] Blood Pressure 151/102 H 134/86 H 144/90 H [Right Brachial artery] O2 Saturation 97 98 99 09/28/17 09/28/17 09/28/17 02:00 03:00 04:00 Temperature Heart Rate [ 106 H 108 H 109 H Monitoring electrodes] Respiratory 24 19 19 Rate Blood Pressure 130/90 H 135/86 H 135/86 H [Left Brachial artery] Blood Pressure [Right Brachial artery] O2 Saturation 98 97 98 09/28/17 09/28/17 09/28/17 05:00 06:00 07:00 Temperature 37.2 C Heart Rate [ 111 H 108 H Monitoring electrodes] Respiratory 22 18 16 Rate Blood Pressure 163/91 H [Left Brachial artery] Blood Pressure 139/87 H 146/92 H [Right Brachial artery] O2 Saturation 99 98 98 09/28/17 09/28/17 09/28/17 08:00 09:00 09:58 Temperature 37.5 C Heart Rate [ 112 H 105 H 98 Monitoring electrodes] Respiratory 17 20 16 Rate Blood Pressure [Left Brachial artery] Blood Pressure 160/93 H 119/84 H [Right Brachial artery] O2 Saturation 98 98 99 09/28/17 09/28/17 09/28/17 09:59 11:00 11:57 Temperature 37.1 C Heart Rate [ 100 105 H Monitoring electrodes] Respiratory 18 20 Rate Blood Pressure [Left Brachial artery] Blood Pressure 112/75 122/89 H 108/86 H [Right Brachial artery] O2 Saturation 99 98 09/28/17 09/28/17 09/28/17 13:00 14:00 15:00 Temperature Heart Rate [ 101 H 107 H 97 Monitoring electrodes] Respiratory 19 22 20 Rate Blood Pressure [Left Brachial artery] Blood Pressure 123/85 H 126/91 H 115/74 [Right Brachial artery] O2 Saturation 98 98 97 09/28/17 09/28/17 09/28/17 16:00 17:00 18:00 Temperature 37.4 C Heart Rate [ 101 H 100 110 H Monitoring electrodes] Respiratory 20 18 19 Rate Blood Pressure [Left Brachial artery] Blood Pressure 141/94 H 127/84 H 173/105 H [Right Brachial artery] O2 Saturation 99 99 98 09/28/17 18:58 Temperature Heart Rate [ 104 H Monitoring electrodes] Respiratory 20 Rate Blood Pressure [Left Brachial artery] Blood Pressure 160/96 H [Right Brachial artery] O2 Saturation 97 Oxygen O2 Source Room air I&O (Last 24 Hrs): Intake and Output Totals x24h 09/26/17 09/27/17 09/28/17 23:59 23:59 23:59 Intake Total 2689.8 5714.151 Output Total 1050 4700 Balance 1639.8 1014.151 General: Alert, Oriented x3, Mild distress (Anxious, and complaining of pain) HEENT: Atraumatic, PERRLA, EOMI, Other (dry mucus membranes) Neck: Supple, No JVD, No thyromegaly, +2 carotid pulse wo bruit, No LAD Lymphatic: no adenopathy Neuro: Alert, Non Focal, CN 2-12 Grossly Intact, Oriented Times 3 Cardiovascular: Regular rate, Normal S1, Normal S2, No murmurs Respiratory: Chest non-tender, No respiratory distress, Breath sounds nml Abdomen: Normal bowel sounds, Soft, No tenderness, No hepatospenomegaly Extremities: No clubbing, No cyanosis, No edema, Normal pulses Skin: No rashes, No breakdown Comments/Notes: toe amputations appear to be healing with no signs of infection. She has multiple needle white over body. - Results Results: Laboratory Results WBC 9.3 x10^3/uL (4.8-10.8) 09/28/17 04:25 RBC 4.22 10^6/uL (4.20-5.40) 09/28/17 04:25 Hgb 10.7 g/dL (12.0-16.0) L 09/28/17 04:25 Hct 33.3 % (37.0-47.0) L 09/28/17 04:25 MCV 78.9 fL (81.0-99.0) L 09/28/17 04:25 MCH 25.4 pg (27.0-31.0) L 09/28/17 04:25 MCHC 32.2 g/dL (32.0-36.0) 09/28/17 04:25 RDW 18.1 % (12.0-15.0) H 09/28/17 04:25 Plt Count 378 10^3/uL (130-450) 09/28/17 04:25 MPV 7.3 fL (7.9-10.8) L 09/28/17 04:25 Neut # (Auto) 5.3 10^3/uL (1.5-6.6) 09/28/17 04:25 Lymph # (Auto) 3.2 10^3/uL (1.5-3.5) 09/28/17 04:25 [place] # (Auto) 0.7 10^3/uL (0.0-1.0) 09/28/17 04:25 Eos # (Auto) 0.1 10^3/uL (0.0-0.7) 09/28/17 04:25 Baso # (Auto) 0.0 10^3/uL (0.0-0.1) 09/28/17 04:25 Absolute Nucleated RBC 0.00 x10^3/uL 09/28/17 04:25 Nucleated RBC % 0.0 /100WBC 09/28/17 04:25 PT 11.7 secs (9.9-12.6) 09/28/17 06:12 INR 1.0 (0.8-1.2) 09/28/17 06:12 VBG pH 7.328 (7.31-7.41) 09/28/17 06:12 VBG pCO2 21.3 mmHg (41-51) L 09/27/17 14:50 VBG pO2 77.8 mmHg (25-47) H 09/27/17 14:50 VBG HCO3 6.5 mmol/L (23-28) L 09/27/17 14:50 VBG Total CO2 7.2 mmol/L (24-29) L 09/27/17 14:50 VBG O2 Saturation 91.5 % (60-80) H 09/27/17 14:50 VBG Base Excess -21.3 mmol/L (-2 - +2) L 09/27/17 14:50 Ionized Calcium 1.09 mmol/L (1.15-1.33) L 09/28/17 06:12 Sodium 134 mmol/L (135-145) L 09/28/17 04:25 Potassium 3.9 mmol/L (3.5-5.0) 09/28/17 04:25 Chloride 105 mmol/L (101-111) 09/28/17 04:25 Carbon Dioxide 22 mmol/L (21-32) 09/28/17 04:25 Anion Gap 7.0 (6-13) 09/28/17 04:25 BUN 14 mg/dL (6-20) 09/28/17 04:25 Creatinine 0.6 mg/dL (0.4-1.0) 09/28/17 04:25 Estimated GFR (MDRD) 113 (>89) 09/28/17 04:25 Glucose 177 mg/dL (70-100) H 09/28/17 04:25 Glycated Hemoglobin 11.9 % (4.6-6.2) H 09/27/17 14:50 Estim Average Glucose 295 (70-100) H 09/27/17 14:50 Calcium 8.0 mg/dL (8.5-10.3) L 09/28/17 04:25 Phosphorus 2.0 mg/dL (2.5-4.6) L 09/28/17 04:25 Magnesium 1.9 mg/dL (1.7-2.8) 09/28/17 04:25 Total Bilirubin 1.0 mg/dL (0.2-1.0) 09/28/17 04:25 AST 18 IU/L (10-42) 09/28/17 04:25 ALT 28 IU/L (10-60) 09/28/17 04:25 Alkaline Phosphatase 112 IU/L (42-121) 09/28/17 04:25 Troponin I < 0.04 ng/mL (<0.49) 09/28/17 08:26 Total Protein 6.3 g/dL (6.7-8.2) L 09/28/17 04:25 Albumin 3.5 g/dL (3.2-5.5) 09/28/17 04:25 Globulin 2.8 g/dL (2.1-4.2) 09/28/17 04:25 Albumin/Globulin Ratio 1.3 (1.0-2.2) 09/28/17 04:25 Lipase 26 U/L (22-51) 09/27/17 11:45 Urine Color YELLOW 09/27/17 11:45 Urine Clarity CLEAR (CLEAR) 09/27/17 11:45 Urine pH 5.5 PH (5.0-7.5) 09/27/17 11:45 Ur Specific [place] 1.020 (1.002-1.030) 09/27/17 11:45 Urine Protein NEGATIVE mg/dL (NEGATIVE) 09/27/17 11:45 Urine Glucose (UA) 500 mg/dL (NEGATIVE) H 09/27/17 11:45 Urine Ketones >=80 mg/dL (NEGATIVE) H 09/27/17 11:45 Urine Occult Blood NEGATIVE (NEGATIVE) 09/27/17 11:45 Urine Nitrite NEGATIVE (NEGATIVE) 09/27/17 11:45 Urine Bilirubin NEGATIVE (NEGATIVE) 09/27/17 11:45 Urine Acetest LARGE (NEGATIVE) H 09/27/17 11:45 Urine Urobilinogen 0.2 (NORMAL) E.U./dL (NORMAL) 09/27/17 11:45 Ur Leukocyte Esterase NEGATIVE (NEGATIVE) 09/27/17 11:45 Ur Microscopic Review NOT INDICATED 09/27/17 11:45 Urine Culture Comments NOT INDICATED 09/27/17 11:45 Urine HCG, Qual NEGATIVE 09/27/17 11:45 Urine Opiates Screen NEGATIVE (NEGATIVE) 09/27/17 11:45 Ur Oxycodone Screen NEGATIVE (NEGATIVE) 09/27/17 11:45 Urine Methadone Screen NEGATIVE (NEGATIVE) 09/27/17 11:45 Ur Propoxyphene Screen NEGATIVE (NEGATIVE) 09/27/17 11:45 Ur Barbiturates Screen NEGATIVE (NEGATIVE) 09/27/17 11:45 Ur Tricyclics Screen NEGATIVE (NEGATIVE) 09/27/17 11:45 Ur Phencyclidine Scrn NEGATIVE (NEGATIVE) 09/27/17 11:45 Ur Amphetamine Screen POSITIVE (NEGATIVE) H 09/27/17 11:45 U Methamphetamines Scrn POSITIVE (NEGATIVE) H 09/27/17 11:45 U Benzodiazepines Scrn NEGATIVE (NEGATIVE) 09/27/17 11:45 Urine Cocaine Screen NEGATIVE (NEGATIVE) 09/27/17 11:45 U Cannabinoids Screen NEGATIVE (NEGATIVE) 09/27/17 11:45 Serum Ketones SMALL (NEGATIVE) H 09/28/17 08:26 - Procedures Procedures: Procedures DETACHMENT AT LEFT 4TH TOE, LOW, OPEN APPROACH (06/30/17) DETACHMENT AT RIGHT 1ST TOE, LOW, OPEN APPROACH (03/14/17) DETACHMENT AT RIGHT 2ND TOE, HIGH, OPEN APPROACH (06/30/17) DETACHMENT AT RIGHT 4TH TOE, HIGH, OPEN APPROACH (06/30/17) INSERT INFUSION DEV IN R INT JUGULAR VEIN, PERC (04/21/16) INSERTION OF INFUSION DEV INTO R SUBCLAV VEIN, PERC APPROACH (03/14/17) INSERTION OF INFUSION DEV INTO SUP VENA CAVA, PERC APPROACH (06/30/17) INSERTION OF INFUSION DEVICE INTO LOWER VEIN, PERC APPROACH (08/13/17) INSERTION OF INFUSION DEVICE INTO R ATRIUM, PERC APPROACH (12/04/15) TRANSFUSE NONAUT RED BLOOD CELLS IN PERIPH VEIN, PERC (01/22/17) ULTRASONOGRAPHY OF RIGHT JUGULAR VEINS, GUIDANCE (04/21/16) ABX Reporting Has patient been on IV antibiotics over the past 48 hours?: No Current Medications - Current Medications Current Medications: Active Medications Generic Name Dose Route Start Last Admin Trade Name Freq PRN Reason Stop Dose Admin Acetaminophen 650 mg 09/28/17 11:57 09/28/17 12:27 Tylenol PO 650 mg Q4HR PRN Administration Pain or Fever > 38C (100.4F) Amitriptyline HCl 25 mg 09/28/17 21:00 09/28/17 20:43 Elavil PO 25 mg HS SYLVIA Administration Cilostazol 100 mg 09/27/17 21:00 09/29/17 08:12 Pletal PO 100 mg BID SYLVIA Administration Clonidine HCl 0.1 mg 09/27/17 21:00 09/29/17 08:12 Catapres PO 0.1 mg BID SYLVIA Administration Diltiazem HCl 120 mg 09/28/17 09:00 09/29/17 08:12 Cardizem Cd PO 120 mg DAILY SYLVIA Administration Duloxetine HCl 60 mg 09/29/17 09:00 09/29/17 08:08 Cymbalta PO 60 mg DAILY SYLVIA Administration Gabapentin 900 mg 09/28/17 06:00 09/29/17 06:11 Neurontin PO 900 mg TID SYLVIA Administration Heparin Sodium (Beef Lung) 30 - 50 unit 09/29/17 04:35 09/29/17 05:10 IVP 50 unit PRN PRN Administration Central Line Protocol (<24 hr) Insulin Aspart 1 - 9 unit 09/28/17 12:00 09/29/17 08:09 Novolog SUBQ 3 unit 0800,1200,1700,2100 SYLVIA Administration Protocol Insulin Glargine 70 unit 09/28/17 11:00 09/29/17 08:10 Lantus Solostar SUBQ 70 unit DAILY SYLVIA Administration Magnesium Oxide 400 mg 09/29/17 07:00 09/29/17 08:10 Mag Ox PO 09/29/17 13:01 400 mg Q6H SYLVIA Administration Protocol Metoclopramide HCl 10 mg 09/27/17 21:00 09/29/17 06:11 Reglan PO 10 mg ACHS SYLVIA Administration Metoprolol Succinate 25 mg 09/27/17 21:00 09/29/17 08:12 Toprol Xl PO 25 mg BID SYLVIA Administration Sodium Chloride 10 ml 09/27/17 17:00 09/29/17 08:13 Normal Saline Flush 0.9% IVP Not Given 0100,0900,1700 [facility] Sodium Chloride 10 ml 09/27/17 14:34 09/29/17 05:09 Normal Saline Flush 0.9% IVP 20 ml PRN PRN Administration NEEDED PER PROVIDER ORDERS Tramadol HCl 50 mg 09/27/17 17:34 09/28/17 20:44 Ultram PO 50 mg Q6H PRN Administration MOD PAIN 5-7
[2017-09-28] MEDS ORDERED: AMITRIPTYLINE 25 MG TABLET PO SCH (21:00)
[2017-09-29] MEDS: SODIUM CHLORIDE FLUSH 0.9% 10 ML SYRINGE IVP SCH ×2 (05:09→08:13)
[2017-09-29] MEDS: SODIUM CHLORIDE FLUSH 0.9% 10 ML SYRINGE IVP PRN (05:09)
[2017-09-29 05:34] LABS: BASOPHILS # (AUTO) 0.1 10^3/uL (0.0-0.1); BASOPHILS % (AUTO) 0.9 %; EOSINOPHILS # (AUTO) 0.1 10^3/uL (0.0-0.7); EOSINOPHILS % (AUTO) 1.6 %; HGB - HEMOGLOBIN 10.3 g/dL (12.0-16.0); LYMPHOCYTES # (AUTO) 3.5 10^3/uL (1.5-3.5); LYMPHOCYTES % (AUTO) 56.2 %; MEAN CORPUSCULAR HEMOGLOBIN 25.8 pg (27.0-31.0); MEAN CORPUSCULAR HGB CONC 32.4 g/dL (32.0-36.0); MEAN CORPUSCULAR VOLUME 79.8 fL (81.0-99.0); MEAN PLATELET VOLUME 7.2 fL (7.9-10.8); MONOCYTES # (AUTO) 0.3 10^3/uL (0.0-1.0); MONOCYTES % (AUTO) 5.5 %; NEUTROPHILS # (AUTO) 2.2 10^3/uL (1.5-6.6); NEUTROPHILS % (AUTO) 35.8 %; PLT - PLATELET COUNT 324 10^3/uL (130-450); RED BLOOD COUNT 3.98 10^6/uL (4.20-5.40); RED CELL DISTRIBUTION WIDTH 17.8 % (12.0-15.0); WHITE BLOOD COUNT 6.2 x10^3/uL (4.8-10.8)
[2017-09-29 05:43] LABS: ALBUMIN 3.2 g/dL (3.2-5.5); ALBUMIN/GLOBULIN RATIO 1.1 (1.0-2.2); BILIRUBIN,TOTAL 0.3 mg/dL (0.2-1.0); CALCIUM 8.8 mg/dL (8.5-10.3); CREATININE 0.4 mg/dL (0.4-1.0); TOTAL PROTEIN 6.1 g/dL (6.7-8.2)
[2017-09-29] MEDS: METOCLOPRAMIDE 10 MG TABLET PO SCH ×2 (06:11→11:28)
[2017-09-29] MEDS: GABAPENTIN 300 MG CAPSULE PO SCH (06:11)
[2017-09-29] MEDS ORDERED: POTASSIUM CHLORIDE 20 MEQ TABLET PO SCH (06:19)
[2017-09-29 06:35] LABS: MAGNESIUM 1.6 mg/dL (1.7-2.8); PHOSPHORUS 2.9 mg/dL (2.5-4.6)
[2017-09-29] MEDS ORDERED: MAGNESIUM OXIDE 400 MG TABLET PO SCH (07:00)
[2017-09-29 07:46] LABS: HB2 TOTAL 10.3 g/dL; HEMOGLOBIN A1C 1.1 g/dL; HEMOGLOBIN A1C % 11.9 % (4.6-6.2)
[2017-09-29] MEDS: INSULIN ASPART 300 UNIT/3 ML PEN SUBQ SCH ×2 (08:09→12:13)
[2017-09-29] MEDS: INSULIN GLARGINE 300 UNIT/3 ML PEN SUBQ SCH (08:10)
[2017-09-29] MEDS: CILOSTAZOL 100 MG TABLET PO SCH (08:12)
[2017-09-29] MEDS: METOPROLOL SUCCINATE 25 MG TABLET PO SCH (08:12)
[2017-09-29] MEDS: cloNIDine 0.1 MG TABLET PO SCH (08:12)
[2017-09-29] MEDS: diltiaZEM CD 120 MG CAPSULE PO SCH (08:12)
[2017-09-29] MEDS ORDERED: DULoxetine 20 MG CAPSULE PO SCH (09:00)
[2017-09-29 10:53] VITALS: BP 116/91
--- NOTE | 2017-09-29 10:54 | Discharge Plan ---
Discharge Plan Disposition: Home, Self Care Condition: Good Prescriptions: Blood Sugar Diagnostic [Glucose Test Strip] 1 each [facility] #120 strip Blood-Glucose Meter [Glucometer] 1 each [facility] #1 each Insulin Aspart [NovoLOG] 12 unit SUBQ TIDWM #3 pen Insulin Glargine [Lantus Solostar] 70 unit SUBQ DAILY #10 pen [place], Disposable [Easy Touch Hypodermic Needle] 1 each [facility] #120 dis.needle Diet: Diabetic Activity Restrictions: Activity as Tolerated Shower Restrictions: No Driving Restrictions: No Assistance Devices: Walker Weight Bearing: Full Weight Additional Instructions or Follow Up instructions: You presented with diabetic ketoacidosis and were treated in our intensive care unit on an insulin drip. Your diabetic ketoacidosis has now resolved and you are well enough to be discharged home. I have prescribed you insulin and a glucometer which she can garbage pick up man at your pharmacy. Again we advised that you be compliant with your medications and stop using methamphetamine. No Smoking: If you smoke, Please STOP! Call for help.
--- NOTE | 2017-09-29 11:14 | DISCHARGE SUMMARY ---
Discharge Summary Admit Date: 09/27/17 Discharge Date: 09/29/17 Discharging Provider: Mason Mathews MD Code Status: Attempt Resuscitation Condition at Discharge: Good Discharge Disposition: 01 Home, Self Care - DIAGNOSES Admission Diagnoses: 1. Diabetic ketoacidosis 2. Insulin-dependent diabetes mellitus 3. Methamphetamine abuse 4. Peripheral vascular disease 5. Coronary artery disease with history of myocardial infarction without history of CABG 6. Personal history of noncompliance with medical treatment Discharge Diagnoses with Status of Each Condition: 1. Diabetic ketoacidosis: Resolved 2. Insulin-dependent diabetes mellitus: Stable 3. Methamphetamine abuse: Guarded 4. Peripheral vascular disease: Stable 5. Personal history of noncompliance with medical treatment: Guarded - HPI History of Present Illness: Ms. Patti Calero is a very unfortunate homeless drug addicted 37 year old white female who is very well known to our service because of her extremely frequent admissions (usually at least twice monthly) for diabetic ketoacidosis. She has a history which includes but is not limited to type one diabetes mellitus which is extremely poorly controlled by her, noncompliance with her medications, coronary artery disease status post mycardial infarction, peripheral arterial disease, frostbite with 3 partial toe amputations, bipolar disorder and mental illness. Today she presented with abdominal pain, aches, and feeling as if she is in DKA. She was confused and obtunded. A central line was placed in the ED as the pt has very poor peripheral access. She was found to have a BS of 584, a pH of 7.079, and large ketones. She was hyponatremic at 127. She will be admitted for DKA. - HOSPITAL COURSE Hospital Course: The patient was admitted to the intensive care unit and placed on an insulin drip. The patient had resolution of her diabetic ketoacidosis with closing of her anion gap and improvement of her acidosis. The insulin drip was discontinued and the patient was placed on her home dose of Lantus and a sliding scale insulin with a diabetic diet. She remained stable over the course of the hospitalization with blood sugars ranging in the 1-200 range. The patient's hemoglobin A1c was found to be 11.9. She continues to suffer from noncompliance and drug abuse along with multiple psychiatric issues. She is a very challenging case and unfortunately it appears that she will continue to have recurrent hospitalizations in the future despite attempts by social work and our whole medical team to provide her with help and resources. She was counseled again on need for compliance with medication as well as need to quit methamphetamine use. - ALLERGIES Allergies/Adverse Reactions: Allergies Allergy/AdvReac Type Severity Reaction Status Date / Time codeine Allergy Hives Verified 09/27/17 11:17 hydrocodone Allergy Hives Verified 09/27/17 11:17 morphine Allergy Itching Verified 09/27/17 11:17 milk AdvReac Cramps Verified 09/27/17 11:17 nitrofurantoin AdvReac Headache Verified 09/27/17 11:17 [From Macrobid] PAPER TAPE AdvReac Unknown Uncoded 09/10/17 16:28 - MEDICATIONS Home Medications: Ambulatory Orders Medication Instructions Recorded Confirmed Ibuprofen [Motrin] 600 mg PO Q6HR PRN #60 tablet 08/05/17 09/28/17 Lidocaine HCl [Lidocaine HCl 15 ml MM TIDWM #1 solution 08/16/17 09/28/17 Viscous] Nystatin Cream [Mycostatin Cream] 15 gm TOP BID #1 tube 08/16/17 09/28/17 Amitriptyline [Elavil] 25 mg PO HS #20 tablet 08/30/17 09/28/17 Aspirin [Aspirin EC] 81 mg PO DAILY #30 tablet. 08/30/17 09/28/17 Cilostazol [Pletal] 100 mg PO BID #60 tablet 08/30/17 09/28/17 DULoxetine [Cymbalta] 60 mg PO DAILY #30 capsule 08/30/17 09/28/17 Gabapentin [Neurontin] 900 mg PO TID #90 capsule 08/30/17 09/28/17 Metoclopramide [Reglan] 10 mg PO ACHS #60 tablet 08/30/17 09/28/17 Metoprolol Succinate [Toprol Xl] 25 mg PO BID #60 tablet 08/30/17 09/28/17 Oxybutynin [Ditropan] 5 mg PO BID #60 tablet 08/30/17 09/28/17 cloNIDine [Catapres] 0.1 mg PO BID #60 tablet 08/30/17 09/28/17 diltiaZEM CD [Cardizem Cd] 120 mg PO DAILY #30 capsule 08/30/17 09/28/17 traMADol [Ultram] 50 mg PO Q6H PRN #10 tablet 08/30/17 09/28/17 Blood Sugar Diagnostic [Glucose [address] [facility] #120 strip 09/29/17 Test Strip] Blood-Glucose Meter [Glucometer] [address] [facility] #1 each 09/29/17 Insulin Aspart [NovoLOG] 12 unit SUBQ TIDWM #3 pen 09/29/17 Insulin Glargine [Lantus Solostar] 70 unit SUBQ DAILY #10 pen 09/29/17 [place], Disposable [Easy Touch [address] [facility] #120 dis.needle 09/29/17 Hypodermic Needle] - PHYSICAL EXAM AT DISCHARGE General Appearance: positive: No acute distress, Alert Eyes Bilateral: positive: Normal inspection, PERRL, EOMI, No lid inflammation, Conjunctivae nml, No scleral icterus ENT: positive: ENT inspection nml, Pharynx nml, No signs of dehydration. negative: Purulent nasal drainage, Pharyngeal erythema, Oral lesions Neck: positive: Nml inspection, Thyroid nml, No JVD, Trachea midline. negative : Thyromegaly, Lymphadenopathy (R), Lymphadenopathy (L) Respiratory: positive: Chest non-tender, No respiratory distress, Breath sounds nml. negative: Wheezes, Rales, Rhonchi Cardiovascular: positive: No murmur, No gallop, Tachycardia Peripheral Pulses: positive: 2+ Abdomen: positive: Non-tender, No organomegaly, Nml bowel sounds, No distention. negative: Guarding, Rebound, Hepatomegaly Back: positive: Nml inspection. negative: CVA tenderness (R), CVA tenderness (L ) Skin: positive: Color nml, No rash, Warm, Other (Amputated toes appear well, no infected). negative: Cyanosis, Diaphoresis, Pallor Extremities: positive: Non-tender, Full ROM, Nml appearance, No pedal edema Neurologic/Psychiatric: positive: Oriented x3, CN's nml (2-12), Motor nml, Sensation nml, Mood/affect nml - LABS Result Diagrams: 09/29/17 05:05 09/29/17 05:05 Other Lab Results: Laboratory Results WBC 6.2 x10^3/uL (4.8-10.8) 09/29/17 05:05 RBC 3.98 10^6/uL (4.20-5.40) L 09/29/17 05:05 Hgb 10.3 g/dL (12.0-16.0) L 09/29/17 05:05 Hct 31.8 % (37.0-47.0) L 09/29/17 05:05 MCV 79.8 fL (81.0-99.0) L 09/29/17 05:05 MCH 25.8 pg (27.0-31.0) L 09/29/17 05:05 MCHC 32.4 g/dL (32.0-36.0) 09/29/17 05:05 RDW 17.8 % (12.0-15.0) H 09/29/17 05:05 Plt Count 324 10^3/uL (130-450) 09/29/17 05:05 MPV 7.2 fL (7.9-10.8) L 09/29/17 05:05 Neut # (Auto) 2.2 10^3/uL (1.5-6.6) 09/29/17 05:05 Lymph # (Auto) 3.5 10^3/uL (1.5-3.5) 09/29/17 05:05 [place] # (Auto) 0.3 10^3/uL (0.0-1.0) 09/29/17 05:05 Eos # (Auto) 0.1 10^3/uL (0.0-0.7) 09/29/17 05:05 Baso # (Auto) 0.1 10^3/uL (0.0-0.1) 09/29/17 05:05 Absolute Nucleated RBC 0.00 x10^3/uL 09/29/17 05:05 Nucleated RBC % 0.0 /100WBC 09/29/17 05:05 PT 11.7 secs (9.9-12.6) 09/28/17 06:12 INR 1.0 (0.8-1.2) 09/28/17 06:12 VBG pH 7.328 (7.31-7.41) 09/28/17 06:12 VBG pCO2 21.3 mmHg (41-51) L 09/27/17 14:50 VBG pO2 77.8 mmHg (25-47) H 09/27/17 14:50 VBG HCO3 6.5 mmol/L (23-28) L 09/27/17 14:50 VBG Total CO2 7.2 mmol/L (24-29) L 09/27/17 14:50 VBG O2 Saturation 91.5 % (60-80) H 09/27/17 14:50 VBG Base Excess -21.3 mmol/L (-2 - +2) L 09/27/17 14:50 Ionized Calcium 1.09 mmol/L (1.15-1.33) L 09/28/17 06:12 Sodium 137 mmol/L (135-145) 09/29/17 05:05 Potassium 3.3 mmol/L (3.5-5.0) L 09/29/17 05:05 Chloride 100 mmol/L (101-111) L 09/29/17 05:05 Carbon Dioxide 30 mmol/L (21-32) 09/29/17 05:05 Anion Gap 7.0 (6-13) 09/29/17 05:05 BUN 14 mg/dL (6-20) 09/29/17 05:05 Creatinine 0.4 mg/dL (0.4-1.0) 09/29/17 05:05 Estimated GFR (MDRD) 181 (>89) 09/29/17 05:05 Glucose 118 mg/dL (70-100) H 09/29/17 05:05 Glycated Hemoglobin 11.9 % (4.6-6.2) H 09/29/17 05:05 Estim Average Glucose 295 (70-100) H 09/29/17 05:05 Calcium 8.8 mg/dL (8.5-10.3) 09/29/17 05:05 Phosphorus 2.9 mg/dL (2.5-4.6) 09/29/17 05:05 Magnesium 1.6 mg/dL (1.7-2.8) L 09/29/17 05:05 Total Bilirubin 0.3 mg/dL (0.2-1.0) 09/29/17 05:05 AST 18 IU/L (10-42) 09/29/17 05:05 ALT 23 IU/L (10-60) 09/29/17 05:05 Alkaline Phosphatase 109 IU/L (42-121) 09/29/17 05:05 Troponin I < 0.04 ng/mL (<0.49) 09/28/17 08:26 Total Protein 6.1 g/dL (6.7-8.2) L 09/29/17 05:05 Albumin 3.2 g/dL (3.2-5.5) 09/29/17 05:05 Globulin 2.9 g/dL (2.1-4.2) 09/29/17 05:05 Albumin/Globulin Ratio 1.1 (1.0-2.2) 09/29/17 05:05 Lipase 26 U/L (22-51) 09/27/17 11:45 Urine Color YELLOW 09/27/17 11:45 Urine Clarity CLEAR (CLEAR) 09/27/17 11:45 Urine pH 5.5 PH (5.0-7.5) 09/27/17 11:45 Ur Specific [place] 1.020 (1.002-1.030) 09/27/17 11:45 Urine Protein NEGATIVE mg/dL (NEGATIVE) 09/27/17 11:45 Urine Glucose (UA) 500 mg/dL (NEGATIVE) H 09/27/17 11:45 Urine Ketones >=80 mg/dL (NEGATIVE) H 09/27/17 11:45 Urine Occult Blood NEGATIVE (NEGATIVE) 09/27/17 11:45 Urine Nitrite NEGATIVE (NEGATIVE) 09/27/17 11:45 Urine Bilirubin NEGATIVE (NEGATIVE) 09/27/17 11:45 Urine Acetest LARGE (NEGATIVE) H 09/27/17 11:45 Urine Urobilinogen 0.2 (NORMAL) E.U./dL (NORMAL) 09/27/17 11:45 Ur Leukocyte Esterase NEGATIVE (NEGATIVE) 09/27/17 11:45 Ur Microscopic Review NOT INDICATED 09/27/17 11:45 Urine Culture Comments NOT INDICATED 09/27/17 11:45 Urine HCG, Qual NEGATIVE 09/27/17 11:45 Urine Opiates Screen NEGATIVE (NEGATIVE) 09/27/17 11:45 Ur Oxycodone Screen NEGATIVE (NEGATIVE) 09/27/17 11:45 Urine Methadone Screen NEGATIVE (NEGATIVE) 09/27/17 11:45 Ur Propoxyphene Screen NEGATIVE (NEGATIVE) 09/27/17 11:45 Ur Barbiturates Screen NEGATIVE (NEGATIVE) 09/27/17 11:45 Ur Tricyclics Screen NEGATIVE (NEGATIVE) 09/27/17 11:45 Ur Phencyclidine Scrn NEGATIVE (NEGATIVE) 09/27/17 11:45 Ur Amphetamine Screen POSITIVE (NEGATIVE) H 09/27/17 11:45 U Methamphetamines Scrn POSITIVE (NEGATIVE) H 09/27/17 11:45 U Benzodiazepines Scrn NEGATIVE (NEGATIVE) 09/27/17 11:45 Urine Cocaine Screen NEGATIVE (NEGATIVE) 09/27/17 11:45 U Cannabinoids Screen NEGATIVE (NEGATIVE) 09/27/17 11:45 Serum Ketones SMALL (NEGATIVE) H 09/28/17 08:26 - DIAGNOSTIC IMAGING Diagnostic Imaging Results: Final report reviewed Diagnostic Imaging Results Comments: Chest x-ray Impression: Right internal jugular central venous catheter tip is in the right atrium, approximately 3 cm below the superior cavoatrial junction. - FOLLOW UP Follow Up: Patient was given prescriptions for her insulin and a glucometer as well as glucometer strips and needles. The patient needs to reestablish care with a primary care physician but due to her noncompliance in the past she does not currently have a PCP. - TIME SPENT Time Spent in Discharge (Minutes): 45
== END 2017-09-29 13:40 | disposition home or self-care (01) | DRG 638 ==
LOC: ED 11:11 → ICU 14:34
PROVIDERS: ADMIT Hospitalist; ATTEND Internal Medicine
PROC: 02H633Z Insertion of Infusion Device into Right Atrium, Percutaneous Approach (ICD-10-PCS; principal; 2017-09-27)
DX: E10.10 Type 1 diabetes mellitus with ketoacidosis without coma (principal); E87.1 Hypo-osmolality and hyponatremia; F15.20 Other stimulant dependence, uncomplicated; Z59.0 Homelessness; Z91.14 Patient's other noncompliance with medication regimen; I25.2 Old myocardial infarction; F31.9 Bipolar disorder, unspecified; I25.10 Atherosclerotic heart disease of native coronary artery without angina pectoris; Z72.0 Tobacco use; F15.10 Other stimulant abuse, uncomplicated; I73.9 Peripheral vascular disease, unspecified; R00.0 Tachycardia, unspecified; Z89.422 Acquired absence of other left toe(s); Z89.421 Acquired absence of other right toe(s)
CPT/HCPCS: 36415; 36556; 71045; 80048; 80053; 80306; 81001; 81002; 81003; 81025; 82009; 82330; 82803; 82947; 83036; 83690; 83735; 84100; 84484; 85025; 85610; 87086; 87150; 96365; 96375; 99283; 99291

== ENCOUNTER 2017-10-08 08:28 | Emergency (ER) | payer MEDICAID ==
[2017-10-08 09:00] LABS: BILIRUBIN,URINE NEGATIVE (NEGATIVE); CLARITY,URINE CLEAR (CLEAR); GLUCOSE, URINE (UA) >=1000 mg/dL (NEGATIVE); KETONES,URINE (UA) NEGATIVE (NEGATIVE); LEUKOCYTE ESTERASE, URINE NEGATIVE (NEGATIVE); NITRITE,URINE NEGATIVE (NEGATIVE); OCCULT BLOOD,URINE NEGATIVE (NEGATIVE); PROTEIN,URINE NEGATIVE (NEGATIVE); UROBILINOGEN,URINE 0.2 (NORMAL) E.U./dL (NORMAL)
[2017-10-08] MEDS ORDERED: LORazepam 0.5 MG TABLET PO STA (09:17)
[2017-10-08] MEDS ORDERED: ONDANSETRON ODT 4 MG TABLET TL STA (09:17)
[2017-10-08] MEDS ORDERED: HYDROmorphone 1 MG/ML CARPUJECT IM STA (09:17)
--- NOTE | 2017-10-08 09:20 | ED Physician Documentation ---
History of Present Illness - Stated complaint Stated Complaint: HIGH BLOOD SUGAR - Chief complaint Chief Complaint: General - History obtained from History obtained from: Patient - History of Present Illness Timing: Last night - Additonal information Additional information: 37-year-old type I diabetic female well known to the emergency department has developed acute right periorbital swelling and pain in the right second toe and sugars running high. She comes to the emergency department and hysterical pain from the right eye swelling. She states that it started out yesterday as a simple stye and as the day progressed the swelling worsened she did place warm compress on it last night seem to help a little bit this morning she is woken up with the eye markedly swollen and she is in hysterical pain. She has been having some trouble with her right second toe she has had multiple prior amputations and this second toe she has had a sore that has an ulcer. It is hurting quite a bit. Her sugars are now running high and she states that her sugars been running fairly high recently but she feels that she is more hydrated than she usually is when she comes in. She is recently won the [employer] eating contest at the [employer] for the third year in a row. Review of Systems Constitutional: denies: Fever Eyes: reports: Other (swelling to the right eyelid). denies: Decreased vision Ears: denies: Ear pain Nose: denies: Rhinorrhea / runny nose, Congestion Throat: denies: Oral lesions / sores, Sore throat Cardiac: denies: Chest pain / pressure, Palpitations Respiratory: reports: Cough. denies: Dyspnea GI: reports: Nausea, Vomiting. denies: Abdominal Pain : reports: Frequency. denies: Dysuria Skin: denies: Rash Musculoskeletal: reports: Extremity pain, Other (pain to the right 2nd toe with an ulceration to the). denies: Neck pain, Back pain Neurologic: reports: Generalized weakness. denies: Focal weakness, Numbness Psychiatric: denies: Depressed PD PAST MEDICAL HISTORY - Past Medical History Cardiovascular: Hypertension, High cholesterol, Peripheral Vascular Disease, [place] Respiratory: None Neuro: Other Endocrine/Autoimmune: Type 1 diabetes GI: Pancreatitis [employer]: None : None HEENT: None Psych: Depression, Anxiety, Panic attacks Musculoskeletal: Fibromyalgia Derm: None - Past Surgical History Past Surgical History: Yes General: Cholecystectomy HEENT: Tonsil/Adenoidectomy - Present Medications Home Medications: Ambulatory Orders Medication Instructions Recorded Confirmed Ibuprofen [Motrin] 600 mg PO Q6HR PRN #60 tablet 08/05/17 09/28/17 Lidocaine HCl [Lidocaine HCl 15 ml MM TIDWM #1 solution 08/16/17 09/28/17 Viscous] Nystatin Cream [Mycostatin Cream] 15 gm TOP BID #1 tube 08/16/17 09/28/17 Amitriptyline [Elavil] 25 mg PO HS #20 tablet 08/30/17 09/28/17 Aspirin [Aspirin EC] 81 mg PO DAILY #30 tablet.dr 08/30/17 09/28/17 Cilostazol [Pletal] 100 mg PO BID #60 tablet 08/30/17 09/28/17 DULoxetine [Cymbalta] 60 mg PO DAILY #30 capsule 08/30/17 09/28/17 Gabapentin [Neurontin] 900 mg PO TID #90 capsule 08/30/17 09/28/17 Metoclopramide [Reglan] 10 mg PO ACHS #60 tablet 08/30/17 09/28/17 Metoprolol Succinate [Toprol Xl] 25 mg PO BID #60 tablet 08/30/17 09/28/17 Oxybutynin [Ditropan] 5 mg PO BID #60 tablet 08/30/17 09/28/17 cloNIDine [Catapres] 0.1 mg PO BID #60 tablet 08/30/17 09/28/17 diltiaZEM CD [Cardizem Cd] 120 mg PO DAILY #30 capsule 08/30/17 09/28/17 traMADol [Ultram] 50 mg PO Q6H PRN #10 tablet 08/30/17 09/28/17 Blood Sugar Diagnostic [Glucose 1 each [facility] #120 strip 09/29/17 Test Strip] Blood-Glucose Meter [Glucometer] 1 each [facility] #1 each 09/29/17 Insulin Aspart [NovoLOG] 12 unit SUBQ TIDWM #3 pen 09/29/17 Insulin Glargine [Lantus Solostar] 70 unit SUBQ DAILY #10 pen 09/29/17 [place], Disposable [Easy Touch 1 each [facility] #120 dis.needle 09/29/17 Hypodermic Needle] Hydromorphone HCl [Dilaudid] 4 - 8 mg PO Q4HR PRN #20 tablet 10/08/17 Sulfamethoxazole/Trimethoprim 1 each PO BID #14 tablet 10/08/17 [Sulfamethoxazole-Tmp Ds Tablet] - Allergies Allergies/Adverse Reactions: Allergies Allergy/AdvReac Type Severity Reaction Status Date / Time codeine Allergy Hives Verified 09/27/17 11:17 hydrocodone Allergy Hives Verified 09/27/17 11:17 morphine Allergy Itching Verified 09/27/17 11:17 milk AdvReac Cramps Verified 09/27/17 11:17 nitrofurantoin AdvReac Headache Verified 09/27/17 11:17 [From Macrobid] PAPER TAPE AdvReac Unknown Uncoded 09/10/17 16:28 - Social History Does the pt smoke?: Yes Smoking Status: Current every day smoker Does the pt drink ETOH?: No Does the pt have substance abuse?: Yes - Immunizations Immunizations are current?: Yes - POLST Patient has POLST: No POLST Status: Full Code PD ED PE NORMAL - Vitals Vital signs reviewed: Yes (tachy and hypertensive ) - General General: Alert and oriented X 3, Well developed/nourished, Other (37 y/o diabetic female with an obvious swelling to the right periorbital tissues in the inferior margin who is crying in pain) - HEENT HEENT: Atraumatic, PERRL, EOMI - Neck Neck: Supple, no meningeal sign, No bony TTP - Cardiac Cardiac: No murmur, Other (tachy with loud S2) - Abdomen Abdomen: Soft, Non tender - Back Back: No CVA TTP, No spinal TTP - Derm Derm: Normal color, Warm and dry, No rash - Extremities Extremities: No edema, Other (The tips of multiple toes are missing with the exception of the middle toe on the right and this has a small ulcer and does not appear inflamed. ) - Neuro Neuro: Alert and oriented X 3, circular saw edge fuser 2-12 intact, No motor deficit, No sensory deficit, Normal speech Eye Opening: Spontaneous Motor: Obeys Commands Verbal: Oriented GCS Score: 15 - Psych Psych: Other (mood is painful and the affect is with good range. ) Results - Vitals Vitals: Vital Signs - 24 hr 10/08/17 10/08/17 10/08/17 08:38 09:49 11:05 Temperature 36.5 C 96.1 C H Heart Rate 117 H 114 H 116 H Respiratory 22 18 20 Rate Blood Pressure 155/110 H 162/107 H 172/108 H O2 Saturation 100 98 97 10/08/17 10/08/17 10/08/17 13:02 14:00 15:57 Temperature Heart Rate 116 H 109 H 75 Respiratory 16 18 18 Rate Blood Pressure 125/90 H 164/70 H 164/105 H O2 Saturation 95 95 96 Oxygen O2 Source [Without Activity] Room air O2 Source Room air - Labs Labs: Laboratory Tests 10/08/17 10/08/17 10/08/17 08:50 10:04 10:04 WBC 6.6 RBC 4.46 Hgb 11.5 L Hct 36.9 L MCV 82.8 MCH 25.7 L MCHC 31.1 L RDW 17.2 H Plt Count 359 MPV 7.9 Neut # (Auto) 4.4 Lymph # (Auto) 1.6 [place] # (Auto) 0.4 Eos # (Auto) 0.1 Baso # (Auto) 0.1 Absolute Nucleated RBC 0.00 Nucleated RBC % 0.0 VBG pH VBG pCO2 VBG pO2 VBG HCO3 VBG Total CO2 VBG O2 Saturation VBG Base Excess Sodium 124 L Potassium 4.5 Chloride 88 L Carbon Dioxide 25 Anion Gap 11.0 BUN 16 Creatinine 0.7 Estimated GFR (MDRD) 95 Glucose 804 H* POC Whole Bld Glucose Lactic Acid Calcium 9.0 Total Bilirubin 0.6 AST 60 H ALT 63 H Alkaline Phosphatase 191 H Troponin I Total Protein 7.4 Albumin 3.8 Globulin 3.6 Albumin/Globulin Ratio 1.1 Lipase 43 Urine Color YELLOW Urine Clarity CLEAR Urine pH 6.0 Ur Specific [place] <=1.005 Urine Protein NEGATIVE Urine Glucose (UA) >=1000 H Urine Ketones NEGATIVE Urine Occult Blood NEGATIVE Urine Nitrite NEGATIVE Urine Bilirubin NEGATIVE Urine Urobilinogen 0.2 (NORMAL) Ur Leukocyte Esterase NEGATIVE Ur Microscopic Review NOT INDICATED Urine Culture Comments NOT INDICATED Serum Ketones 10/08/17 10/08/17 10/08/17 10:04 10:51 10:51 WBC RBC Hgb Hct MCV MCH MCHC RDW Plt Count MPV Neut # (Auto) Lymph # (Auto) [place] # (Auto) Eos # (Auto) Baso # (Auto) Absolute Nucleated RBC Nucleated RBC % VBG pH VBG pCO2 VBG pO2 VBG HCO3 VBG Total CO2 VBG O2 Saturation VBG Base Excess Sodium Potassium Chloride Carbon Dioxide Anion Gap BUN Creatinine Estimated GFR (MDRD) Glucose POC Whole Bld Glucose Lactic Acid 1.8 Calcium Total Bilirubin AST ALT Alkaline Phosphatase Troponin I < 0.04 Total Protein Albumin Globulin Albumin/Globulin Ratio Lipase Urine Color Urine Clarity Urine pH Ur Specific [place] Urine Protein Urine Glucose (UA) Urine Ketones Urine Occult Blood Urine Nitrite Urine Bilirubin Urine Urobilinogen Ur Leukocyte Esterase Ur Microscopic Review Urine Culture Comments Serum Ketones NEGATIVE 10/08/17 10/08/17 10/08/17 10:51 11:35 13:01 WBC RBC Hgb Hct MCV MCH MCHC RDW Plt Count MPV Neut # (Auto) Lymph # (Auto) [place] # (Auto) Eos # (Auto) Baso # (Auto) Absolute Nucleated RBC Nucleated RBC % VBG pH 7.400 VBG pCO2 44.5 VBG pO2 58.2 H VBG HCO3 27.0 VBG Total CO2 28.4 VBG O2 Saturation 90.0 H VBG Base Excess 1.9 Sodium Potassium Chloride Carbon Dioxide Anion Gap BUN Creatinine Estimated GFR (MDRD) Glucose POC Whole Bld Glucose 499 H 355 H Lactic Acid Calcium Total Bilirubin AST ALT Alkaline Phosphatase Troponin I Total Protein Albumin Globulin Albumin/Globulin Ratio Lipase Urine Color Urine Clarity Urine pH Ur Specific [place] Urine Protein Urine Glucose (UA) Urine Ketones Urine Occult Blood Urine Nitrite Urine Bilirubin Urine Urobilinogen Ur Leukocyte Esterase Ur Microscopic Review Urine Culture Comments Serum Ketones 10/08/17 14:01 WBC RBC Hgb Hct MCV MCH MCHC RDW Plt Count MPV Neut # (Auto) Lymph # (Auto) [place] # (Auto) Eos # (Auto) Baso # (Auto) Absolute Nucleated RBC Nucleated RBC % VBG pH VBG pCO2 VBG pO2 VBG HCO3 VBG Total CO2 VBG O2 Saturation VBG Base Excess Sodium Potassium Chloride Carbon Dioxide Anion Gap BUN Creatinine Estimated GFR (MDRD) Glucose POC Whole Bld Glucose 236 H Lactic Acid Calcium Total Bilirubin AST ALT Alkaline Phosphatase Troponin I Total Protein Albumin Globulin Albumin/Globulin Ratio Lipase Urine Color Urine Clarity Urine pH Ur Specific [place] Urine Protein Urine Glucose (UA) Urine Ketones Urine Occult Blood Urine Nitrite Urine Bilirubin Urine Urobilinogen Ur Leukocyte Esterase Ur Microscopic Review Urine Culture Comments Serum Ketones Procedures - Abscess I&D (location) right cheek Preparation: Confirmed with ultrasound, Chlorhexadine, Lidocaine 1% (with bicarb ) Incision: Incised with scalpel, Purulent drainage, Irrigated, Culture obtained Other: Dressing applied, Antibiotic prescribed, Other (tolerated with versed sedative) - Procedural sedation Sedation prep: Informed consent, Time out completed, Last meal (noon), PE performed, AHA 3 - severe disease Sedation medications: versed (4mg) Patient status during sedation: Drowsy, Responds to verbal, Responds to tactile , Vitals remained stable, Maintained airway. No: Needed resp assistance Sedation recovery: Recovered uneventfully, Back to baseline PD MEDICAL DECISION MAKING - ED course Complexity details: reviewed old records, reviewed results, re-evaluated patient , considered differential, d/w patient, d/w family ED course: 37-year-old brittle diabetic female comes into the emergency department with swelling to the right eye and complaints of elevated blood sugar. She is found to have sugars in the 800s and she is not in DKA. She is hydrated with 2 L of saline and placed onto a insulin drip which runs for hours. She is able to get a blood sugar down under 300 and she continues to have pain in the right under the right eye. There is some swelling and there is an abscess present which is pointing and seems quite small for the amount of pain that she is experiencing. I did place the ultrasound over this to confirm that there was a small pocket of pus and with this we attended to incision and drainage. This was obtained by the use of Versed for sedation and a small amount of pus was relieved from the area. A culture was obtained. She has already been given Rocephin prior to the culture being obtained. We will place her on some Septra. We will provide a small amount of pain medication for the patient as well. - Sepsis Event Vital Signs: Vital Signs - 24 hr 10/08/17 10/08/17 10/08/17 08:38 09:49 11:05 Temperature 36.5 C 96.1 C H Heart Rate 117 H 114 H 116 H Respiratory 22 18 20 Rate Blood Pressure 155/110 H 162/107 H 172/108 H O2 Saturation 100 98 97 10/08/17 10/08/17 10/08/17 13:02 14:00 15:57 Temperature Heart Rate 116 H 109 H 75 Respiratory 16 18 18 Rate Blood Pressure 125/90 H 164/70 H 164/105 H O2 Saturation 95 95 96 Oxygen O2 Source [Without Activity] Room air O2 Source Room air Departure - Departure Disposition: 01 Home, Self Care Clinical Impression: Abscess Diabetes mellitus with hyperglycemia Qualifiers: Diabetes mellitus type: type 1 Qualified Code(s): E10.65 - Type 1 diabetes mellitus with hyperglycemia Diabetic ulcer of toe associated with type 1 diabetes mellitus Qualifiers: Laterality: right Non-pressure ulcer stage: limited to breakdown of skin Qualified Code(s): E10.621 - Type 1 diabetes mellitus with foot ulcer; L97.511 - Non-pressure chronic ulcer of other part of right foot limited to breakdown of skin; L97.511 - Non-pressure chronic ulcer of other part of right foot limited to breakdown of skin; L97.511 - Non-pressure chronic ulcer of other part of right foot limited to breakdown of skin; L97.511 - Non-pressure chronic ulcer of other part of right foot limited to breakdown of skin Condition: Stable Instructions: ED Abscess IandD, ED Hyperglycemia Diabetic Follow-Up: [facility] [Provider Group] Prescriptions: Hydromorphone HCl [Dilaudid] 4 - 8 mg PO Q4HR PRN #20 tablet PRN Reason: Pain Sulfamethoxazole/Trimethoprim [Sulfamethoxazole-Tmp Ds Tablet] 1 each PO BID # 14 tablet
[2017-10-08 10:10] LABS: BASOPHILS # (AUTO) 0.1 10^3/uL (0.0-0.1); BASOPHILS % (AUTO) 0.8 %; EOSINOPHILS # (AUTO) 0.1 10^3/uL (0.0-0.7); EOSINOPHILS % (AUTO) 0.9 %; HGB - HEMOGLOBIN 11.5 g/dL (12.0-16.0); LYMPHOCYTES # (AUTO) 1.6 10^3/uL (1.5-3.5); LYMPHOCYTES % (AUTO) 24.9 %; MEAN CORPUSCULAR HEMOGLOBIN 25.7 pg (27.0-31.0); MEAN CORPUSCULAR HGB CONC 31.1 g/dL (32.0-36.0); MEAN CORPUSCULAR VOLUME 82.8 fL (81.0-99.0); MEAN PLATELET VOLUME 7.9 fL (7.9-10.8); MONOCYTES # (AUTO) 0.4 10^3/uL (0.0-1.0); MONOCYTES % (AUTO) 6.6 %; NEUTROPHILS # (AUTO) 4.4 10^3/uL (1.5-6.6); NEUTROPHILS % (AUTO) 66.8 %; PLT - PLATELET COUNT 359 10^3/uL (130-450); RED BLOOD COUNT 4.46 10^6/uL (4.20-5.40); RED CELL DISTRIBUTION WIDTH 17.2 % (12.0-15.0); WHITE BLOOD COUNT 6.6 x10^3/uL (4.8-10.8)
[2017-10-08] MEDS ORDERED: INSULIN REGULAR HUMAN 100 UNIT in SODIUM CHLORIDE 0.9% 100ML 99 ML IV STA (10:27)
[2017-10-08] MEDS ORDERED: SODIUM CHLORIDE 0.9% 1,000 ML IV ONE ×2 (10:27→15:14)
[2017-10-08 10:29] LABS: ALBUMIN 3.8 g/dL (3.2-5.5); ALBUMIN/GLOBULIN RATIO 1.1 (1.0-2.2); BILIRUBIN,TOTAL 0.6 mg/dL (0.2-1.0); CREATININE 0.7 mg/dL (0.4-1.0); TOTAL PROTEIN 7.4 g/dL (6.7-8.2)
[2017-10-08 11:15] LABS: VBG BASE EXCESS 1.9 mmol/L (-2 - +2); VBG PCO2 44.5 mmHg (41-51); VBG PH 7.4 (7.31-7.41); VBG PO2 58.2 mmHg (25-47); VBG TOTAL CO2 28.4 mmol/L (24-29)
[2017-10-08] MEDS ORDERED: HYDROmorphone 1 MG/ML CARPUJECT IVP STA ×2 (11:36→16:12)
[2017-10-08] MEDS ORDERED: cefTRIAXone 1 GM in SODIUM CHLORIDE 0.9% MINIBAG 100 ML IV STA (11:45)
[2017-10-08] MEDS ORDERED: MIDAZOLAM 2 MG/2 ML VIAL IVP STA (16:14)
[2017-10-08] MEDS ORDERED: BUFFERED LIDOCAINE 10 ML SYRINGE SUBQ STA (16:42)
[2017-10-08] MEDS ORDERED: MIDAZOLAM 2 MG/2 ML VIAL ONE (16:54)
[2017-10-08 17:09] VITALS: BP 176/117
[2017-10-08] MEDS ORDERED: BACITRACIN OINT TOP ONE (17:25)
== END 2017-10-08 17:34 | disposition home or self-care (01) ==
LOC: ED 08:28
DX: L02.01 Cutaneous abscess of face (principal); E10.621 Type 1 diabetes mellitus with foot ulcer; L97.511 Non-pressure chronic ulcer of other part of right foot limited to breakdown of skin; E10.65 Type 1 diabetes mellitus with hyperglycemia; I10 Essential (primary) hypertension; I73.9 Peripheral vascular disease, unspecified; F17.200 Nicotine dependence, unspecified, uncomplicated
CPT/HCPCS: 10060; 36415; 80053; 81003; 82009; 82803; 83605; 83690; 84484; 85025; 87070; 87181; 87205; 96361; 96365; 96372; 96375; 96376; 99284; A9270; J1170; J1815; Q0162; 81001; 87086

== ENCOUNTER 2017-10-26 07:05 | Outpatient (CLI) | payer MEDICAID | END 2017-10-26 07:06 | disposition critical access hospital (66) | LOC: EMS 07:05 | PROVIDERS: ATTEND Surgery | DX: R11.2 Nausea with vomiting, unspecified (principal); E11.9 Type 2 diabetes mellitus without complications ==

== ENCOUNTER 2017-10-26 07:23 | Inpatient (IN) | payer MEDICAID ==
--- NOTE | 2017-10-26 07:59 | ED Physician Documentation ---
PD HPI ALTERED MENTAL STATUS - Stated complaint Stated Complaint: DKA - Chief complaint Chief Complaint: General - History obtained from History obtained from: Patient - History of Present Illness Timing - onset: How many days ago (2-3 days of nausea, poor intake, and had not taken insulin/meds.) Timing - duration: Days Timing - details: Gradual onset, Still present Quality / character: Agitated Associated symptoms: NVD, General weakness. No: Fever, Headache, Cough Contributing factors: Diabetic, Substance abuse, Other (did not take meds for couple of days). 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 denies: Fever, Chills Nose: denies: Rhinorrhea / runny nose, Congestion Throat: denies: Sore throat Cardiac: denies: Chest pain / pressure, Palpitations Respiratory: denies: Dyspnea, Cough GI: reports: Abdominal Pain (diffuse), Nausea, Vomiting. denies: Diarrhea, Hematemesis, Bloody / black stool : reports: Frequency. denies: Dysuria Skin: reports: Lesions (multiple skin sores, mostly face but some arms and legs. ). denies: Rash Musculoskeletal: reports: Back pain Neurologic: reports: Generalized weakness. denies: Focal weakness, Numbness, Near syncope Endocrine: reports: Weight loss Immunocompromised: denies: Immunocompromised PD PAST MEDICAL HISTORY - Past Medical History Cardiovascular: Hypertension, High cholesterol, Peripheral Vascular Disease, [place] Respiratory: None Neuro: Other Endocrine/Autoimmune: Type 1 diabetes GI: Pancreatitis ANIMAL NUTRITIONIST: None : None HEENT: None Psych: Depression, Anxiety, Panic attacks Musculoskeletal: Fibromyalgia Derm: None - Past Surgical History Past Surgical History: Yes General: Cholecystectomy HEENT: Tonsil/Adenoidectomy - Present Medications Home Medications: Ambulatory Orders Medication Instructions Recorded Confirmed Ibuprofen [Motrin] 600 mg PO Q6HR PRN #60 tablet 08/05/17 10/26/17 Lidocaine HCl [Lidocaine HCl 15 ml MM TIDWM #1 solution 08/16/17 10/26/17 Viscous] Nystatin Cream [Mycostatin Cream] 15 gm TOP BID #1 tube 08/16/17 10/26/17 Amitriptyline [Elavil] 25 mg PO HS #20 tablet 08/30/17 10/26/17 Aspirin [Aspirin EC] 81 mg PO DAILY #30 tablet. 08/30/17 10/26/17 Cilostazol [Pletal] 100 mg PO BID #60 tablet 08/30/17 10/26/17 DULoxetine [Cymbalta] 60 mg PO DAILY #30 capsule 08/30/17 10/26/17 Gabapentin [Neurontin] 900 mg PO TID #90 capsule 08/30/17 10/26/17 Metoclopramide [Reglan] 10 mg PO ACHS #60 tablet 08/30/17 10/26/17 Metoprolol Succinate [Toprol Xl] 25 mg PO BID #60 tablet 08/30/17 10/26/17 Oxybutynin [Ditropan] 5 mg PO BID #60 tablet 08/30/17 10/26/17 cloNIDine [Catapres] 0.1 mg PO BID #60 tablet 08/30/17 10/26/17 diltiaZEM CD [Cardizem Cd] 120 mg PO DAILY #30 capsule 08/30/17 10/26/17 traMADol [Ultram] 50 mg PO Q6H PRN #10 tablet 08/30/17 10/26/17 Blood Sugar Diagnostic [Glucose [address] [facility] #120 strip 09/29/17 10/26/17 Test Strip] Blood-Glucose Meter [Glucometer] [address] [facility] #1 each 09/29/17 10/26/17 Insulin Aspart [NovoLOG] 12 unit SUBQ TIDWM #3 pen 09/29/17 10/26/17 Insulin Glargine [Lantus Solostar] 70 unit SUBQ DAILY #10 pen 09/29/17 10/26/17 [place], Disposable [Easy Touch [address] [facility] #120 dis.needle 09/29/17 10/26/17 Hypodermic Needle] Hydromorphone HCl [Dilaudid] 4 - 8 mg PO Q4HR PRN #20 tablet 10/08/17 10/26/17 Sulfamethoxazole/Trimethoprim 1 each PO BID #14 tablet 10/08/17 10/26/17 [Sulfamethoxazole-Tmp Ds Tablet] - Allergies Allergies/Adverse Reactions: Allergies Allergy/AdvReac Type Severity Reaction Status Date / Time codeine Allergy Hives Verified 09/27/17 11:17 hydrocodone Allergy Hives Verified 09/27/17 11:17 morphine Allergy Itching Verified 09/27/17 11:17 milk AdvReac Cramps Verified 09/27/17 11:17 nitrofurantoin AdvReac Headache Verified 09/27/17 11:17 [From Macrobid] PAPER TAPE AdvReac Unknown Uncoded 09/10/17 16:28 - Social History Does the pt smoke?: Yes Smoking Status: Current every day smoker Does the pt drink ETOH?: No Does the pt have substance abuse?: Yes - Family History Family history: reports: Non contributory - Immunizations Immunizations are current?: Yes - POLST Patient has POLST: No POLST Status: Full Code PD ED PE NORMAL - Vitals Vital signs reviewed: Yes - General General: Alert and oriented X 3, Well developed/nourished, Other (seems uncomfortable, says she is in diffuse pain, particularly abdomen) - HEENT HEENT: Ears normal, Pharynx benign. No: Moist mucous membranes - Neck Neck: Supple, no meningeal sign, No adenopathy, Thyroid normal - Cardiac Cardiac: RRR (but tachy), No murmur - Respiratory Respiratory: No respiratory distress, Clear bilaterally - Abdomen Abdomen: Soft, Non distended, Other (diffusely tender). No: Normal bowel sounds (decreased) - Female Female : Deferred - Rectal Rectal: Deferred - Back Back: No CVA TTP - Derm Derm: Normal color, Warm and dry, Other (face with several sores that have red base, and some crusty yellow coating. No purulence per se. ) - Extremities Extremities: Normal ROM s pain, No edema, No calf tenderness / cord - Neuro Neuro: Alert and oriented X 3, No motor deficit, Normal speech Eye Opening: Spontaneous Motor: Obeys Commands Verbal: Oriented GCS Score: 15 Results - Vitals Vitals: Vital Signs - 24 hr 10/26/17 10/26/17 10/26/17 07:26 08:29 09:47 Temperature 34.5 C L 35.7 C L Heart Rate 115 H 117 H 118 H Respiratory 18 20 25 H Rate Blood Pressure 152/84 H 150/82 H 157/80 H O2 Saturation 99 98 97 Oxygen O2 Source [Without Activity] Room air O2 Source Room air - Labs Labs: Laboratory Tests 10/26/17 10/26/17 10/26/17 08:35 08:35 09:25 WBC 17.7 H RBC 5.09 Hgb 12.8 Hct 43.8 MCV 86.0 MCH 25.1 L MCHC 29.2 L RDW 16.4 H Plt Count 479 H MPV 8.4 Neut # (Auto) 15.9 H Lymph # (Auto) 1.2 L Chambers # (Auto) 0.4 Eos # (Auto) 0.0 Baso # (Auto) 0.2 H Absolute Nucleated RBC 0.00 Nucleated RBC % 0.0 VBG pH VBG pCO2 VBG pO2 VBG HCO3 VBG Total CO2 VBG O2 Saturation VBG Base Excess Sodium Potassium Chloride Carbon Dioxide Anion Gap BUN Creatinine Estimated GFR (MDRD) Glucose Calcium Magnesium Total Bilirubin AST ALT Alkaline Phosphatase Total Protein Albumin Globulin Albumin/Globulin Ratio Lipase Urine Color YELLOW Urine Clarity SL. CLOUDY Urine pH 5.5 Ur Specific [place] >=1.030 H Urine Protein TRACE Urine Glucose (UA) 500 H Urine Ketones >=80 H Urine Occult Blood SMALL H Urine Nitrite NEGATIVE Urine Bilirubin NEGATIVE Urine Urobilinogen 0.2 (NORMAL) Ur Leukocyte Esterase NEGATIVE Urine RBC 0-5 Urine WBC 0-3 Ur Squamous Epith Cells MANY Squamous H Urine Bacteria Moderate H Ur Microscopic Review INDICATED Urine Culture Comments NOT INDICATED Urine Opiates Screen NEGATIVE Ur Oxycodone Screen NEGATIVE Urine Methadone Screen NEGATIVE Ur Propoxyphene Screen NEGATIVE Ur Barbiturates Screen NEGATIVE Ur Tricyclics Screen NEGATIVE Ur Phencyclidine Scrn NEGATIVE Ur Amphetamine Screen NEGATIVE U Methamphetamines Scrn POSITIVE H U Benzodiazepines Scrn NEGATIVE Urine Cocaine Screen NEGATIVE U Cannabinoids Screen NEGATIVE Serum Ketones 10/26/17 10/26/17 09:25 09:25 WBC RBC Hgb Hct MCV MCH MCHC RDW Plt Count MPV Neut # (Auto) Lymph # (Auto) Chambers # (Auto) Eos # (Auto) Baso # (Auto) Absolute Nucleated RBC Nucleated RBC % VBG pH 6.926 L VBG pCO2 15.9 L VBG pO2 78.2 H VBG HCO3 3.2 L VBG Total CO2 3.7 L VBG O2 Saturation 89.3 H VBG Base Excess -27.9 L Sodium 127 L Potassium 5.5 H Chloride 95 L Carbon Dioxide < 6 L* Anion Gap 28.0 H BUN 38 H Creatinine 1.2 H Estimated GFR (MDRD) 51 L Glucose 554 H* Calcium 8.6 Magnesium 2.6 Total Bilirubin 2.0 H AST 24 ALT 37 Alkaline Phosphatase 242 H Total Protein 8.5 H Albumin 4.3 Globulin 4.2 Albumin/Globulin Ratio 1.0 Lipase 21 L Urine Color Urine Clarity Urine pH Ur Specific [place] Urine Protein Urine Glucose (UA) Urine Ketones Urine Occult Blood Urine Nitrite Urine Bilirubin Urine Urobilinogen Ur Leukocyte Esterase Urine RBC Urine WBC Ur Squamous Epith Cells Urine Bacteria Ur Microscopic Review Urine Culture Comments Urine Opiates Screen Ur Oxycodone Screen Urine Methadone Screen Ur Propoxyphene Screen Ur Barbiturates Screen Ur Tricyclics Screen Ur Phencyclidine Scrn Ur Amphetamine Screen U Methamphetamines Scrn U Benzodiazepines Scrn Urine Cocaine Screen U Cannabinoids Screen Serum Ketones MODERATE H PD MEDICAL DECISION MAKING - ED course Complexity details: reviewed old records, reviewed results, considered differential, d/w patient, d/w business information consultant - Sepsis Event Vital Signs: Vital Signs - 24 hr 10/26/17 10/26/17 10/26/17 07:26 08:29 09:47 Temperature 34.5 C L 35.7 C L Heart Rate 115 H 117 H 118 H Respiratory 18 20 25 H Rate Blood Pressure 152/84 H 150/82 H 157/80 H O2 Saturation 99 98 97 Oxygen O2 Source [Without Activity] Room air O2 Source Room air Departure - Departure Disposition: [facility] DC/Xfer Clinical Impression: Skin sore, Dehydration, Electrolyte imbalance DKA, type 1 Qualifiers: Diabetes mellitus complication detail: without coma Qualified Code(s): E10.10 - Type 1 diabetes mellitus with ketoacidosis without coma Condition: Stable Discharge Date/Time: 10/26/17 11:00
[2017-10-26] MEDS ORDERED: SODIUM CHLORIDE 0.9% 1,000 ML IV ONE ×2 (08:07→09:00)
[2017-10-26] MEDS ORDERED: ONDANSETRON 4 MG/2 ML VIAL IVP STA (08:07)
[2017-10-26] MEDS ORDERED: PROMETHAZINE 25 MG/1 ML VIAL IM STA (08:08)
[2017-10-26] MEDS ORDERED: KETOROLAC 15 MG/ML VIAL IM STA (08:08)
[2017-10-26] MEDS ORDERED: INSULIN REGULAR HUMAN 100 UNIT/1 ML 10 ML MDV IVP STA (08:59)
--- NOTE | 2017-10-26 09:11 | ANESTHESIA PROCEDURE NOTE ---
Anesth Central Line Template - Central Line Central Line Preparation: Consent Obtained, Time out completed, Ultrasound used , Sterile prep and drape Central line location: Right IJ Central line type: Triple lumen Central line aftercare: Chlorhexidine disc placed, Secured, Placement confirmed , No pneumothorax, No complications, Bundle checklist complete, Pt tolerated well Other Info/Details: lot number [id number] exp 2018-08-21
[2017-10-26 09:13] LABS: MUDS CUTOFF CONCENTRATIONS CUTOFF CONC BELOW:
[2017-10-26 09:15] LABS: BILIRUBIN,URINE NEGATIVE (NEGATIVE); GLUCOSE, URINE (UA) 500 mg/dL (NEGATIVE); KETONES,URINE (UA) >=80 mg/dL (NEGATIVE); LEUKOCYTE ESTERASE, URINE NEGATIVE (NEGATIVE); NITRITE,URINE NEGATIVE (NEGATIVE); OCCULT BLOOD,URINE SMALL (NEGATIVE); PH,URINE 5.5 PH (5.0-7.5); PROTEIN,URINE TRACE mg/dL (NEGATIVE); UROBILINOGEN,URINE 0.2 (NORMAL) E.U./dL (NORMAL)
[2017-10-26 09:18] LABS: CLARITY,URINE SL. CLOUDY (CLEAR)
[2017-10-26 09:28] LABS: BACTERIA,URINE Moderate /HPF (None Seen); METHAMPHETAMINES SCREEN, URINE POSITIVE (NEGATIVE); RBC,URINE 0-5 /HPF (0-5); SQUAMOUS EPITHELIAL CELL,UR MANY Squamous (<= Few)
[2017-10-26 09:29] LABS: AMPHETAMINE SCREEN,URINE NEGATIVE (NEGATIVE); BENZODIAZEPINES SCREEN, URINE NEGATIVE (NEGATIVE); COCAINE SCREEN URINE NEGATIVE (NEGATIVE); METHADONE SCREEN, URINE NEGATIVE (NEGATIVE); OPIATE SCREEN, URINE NEGATIVE (NEGATIVE); OXYCODONE SCREEN, URINE NEGATIVE (NEGATIVE); PROPOXYPHENE SCREEN, URINE NEGATIVE (NEGATIVE); TRICYCLIC ANTIDEPRESSANT,URINE NEGATIVE (NEGATIVE)
--- NOTE | 2017-10-26 09:32 | XRAY Report ---
Reason: Line placement Procedure Date: 10/26/2017 Accession Number: [id number] / [id number] Procedure: XR - Chest for Line Placement CPT Code: FULL RESULT: EXAM: CHEST RADIOGRAPHY EXAM DATE: 10/26/2017 09:21 AM. CLINICAL HISTORY: Line placement. COMPARISON: CHEST FOR LINE PLACEMENT 09/27/2017. TECHNIQUE: 1 view. FINDINGS: Lungs/Pleura: No focal opacities evident. No pleural effusion or pneumothorax demonstrated on this presumed supine view. Mediastinum: Within exam limitations, the cardiomediastinal contour is normal. Other: Right internal jugular central venous catheter tip is 2 cm below the cavoatrial junction, in the lower SVC. IMPRESSION: Right IJ central venous catheter tip is in the lower SVC. RADIA
[2017-10-26 09:40] LABS: VBG PCO2 15.9 mmHg (41-51); VBG PH 6.926 (7.31-7.41); VBG PO2 78.2 mmHg (25-47)
[2017-10-26 09:41] LABS: VBG BASE EXCESS -27.9 mmol/L (-2 - +2); VBG TOTAL CO2 3.7 mmol/L (24-29)
[2017-10-26 09:42] LABS: BASOPHILS # (AUTO) 0.2 10^3/uL (0.0-0.1); BASOPHILS % (AUTO) 1.4 %; HGB - HEMOGLOBIN 12.8 g/dL (12.0-16.0); LYMPHOCYTES # (AUTO) 1.2 10^3/uL (1.5-3.5); LYMPHOCYTES % (AUTO) 6.6 %; MEAN CORPUSCULAR HEMOGLOBIN 25.1 pg (27.0-31.0); MEAN CORPUSCULAR HGB CONC 29.2 g/dL (32.0-36.0); MEAN PLATELET VOLUME 8.4 fL (7.9-10.8); MONOCYTES # (AUTO) 0.4 10^3/uL (0.0-1.0); NEUTROPHILS # (AUTO) 15.9 10^3/uL (1.5-6.6); PLT - PLATELET COUNT 479 10^3/uL (130-450); RED BLOOD COUNT 5.09 10^6/uL (4.20-5.40); RED CELL DISTRIBUTION WIDTH 16.4 % (12.0-15.0); WHITE BLOOD COUNT 17.7 x10^3/uL (4.8-10.8)
[2017-10-26] MEDS ORDERED: INSULIN REGULAR HUMAN 100 UNIT in SODIUM CHLORIDE 0.9% 100ML 99 ML IV STA (09:45)
[2017-10-26 09:58] LABS: KETONES, SERUM (ACETEST) MODERATE (NEGATIVE)
[2017-10-26 10:02] LABS: ALBUMIN 4.3 g/dL (3.2-5.5); ALKALINE PHOSPHATASE 242 IU/L (42-121); ALT ALANINE AMINOTRANSFERASE 37 IU/L (10-60); AST ASPARTATE AMINOTRANSFERASE 24 IU/L (10-42); BUN - BLOOD UREA NITROGEN 38 mg/dL (6-20); CALCIUM 8.6 mg/dL (8.5-10.3); CHLORIDE 95 mmol/L (101-111); CREATININE 1.2 mg/dL (0.4-1.0); GFR - MDRD 51 (>89); GLUCOSE 554 mg/dL (70-100); LIPASE 21 U/L (22-51); MAGNESIUM 2.6 mg/dL (1.7-2.8); SODIUM 127 mmol/L (135-145); TOTAL PROTEIN 8.5 g/dL (6.7-8.2)
[2017-10-26 10:03] LABS: CARBON DIOXIDE - CO2 < 6 mmol/L (21-32)
[2017-10-26] MEDS ORDERED: ONDANSETRON ODT 4 MG TABLET TL PRN (10:18)
[2017-10-26] MEDS ORDERED: DOXYCYCLINE 100 MG TABLET PO STA (10:18)
[2017-10-26] MEDS ORDERED: INSULIN REGULAR HUMAN 100 UNIT in SODIUM CHLORIDE 0.9% 100ML 99 ML IV SCH ×4 (10:26→14:00)
[2017-10-26 10:54] LABS: VBG PCO2 15.2 mmHg (41-51); VBG PH 6.895 (7.31-7.41); VBG TOTAL CO2 3.3 mmol/L (24-29)
[2017-10-26 10:55] LABS: VBG BASE EXCESS -28.8 mmol/L (-2 - +2)
[2017-10-26 11:00] LABS: GLUCOSE 408 mg/dL (70-100); MAGNESIUM 2.3 mg/dL (1.7-2.8)
[2017-10-26 11:05] LABS: HB2 TOTAL 12.8 g/dL; HEMOGLOBIN A1C 1.28 g/dL; HEMOGLOBIN A1C % 11.3 % (4.6-6.2)
[2017-10-26] MEDS ORDERED: SODIUM CHLORIDE 0.9% 500 ML IV PRN (11:12)
[2017-10-26 11:16] LABS: KETONES, SERUM (ACETEST) MODERATE (NEGATIVE)
[2017-10-26] MEDS ORDERED: INSULIN REGULAR HUMAN 100 UNIT in SODIUM CHLORIDE 0.9% 100ML 99 ML IV ONE (11:28)
[2017-10-26] MEDS: SODIUM CHLORIDE FLUSH 0.9% 10 ML SYRINGE IVP PRN ×4 (11:45→16:44)
[2017-10-26] MEDS: ACETAMINOPHEN 325 MG TABLET PO PRN (12:40)
[2017-10-26 13:03] LABS: KETONES, SERUM (ACETEST) MODERATE (NEGATIVE)
[2017-10-26] MEDS: traMADol 50 MG TABLET PO PRN (13:07)
[2017-10-26 13:24] LABS: BUN - BLOOD UREA NITROGEN 35 mg/dL (6-20); CHLORIDE 104 mmol/L (101-111); CREATININE 1.1 mg/dL (0.4-1.0); GFR - MDRD 56 (>89); GLUCOSE 341 mg/dL (70-100); MAGNESIUM 2.3 mg/dL (1.7-2.8); SODIUM 132 mmol/L (135-145)
[2017-10-26 13:25] LABS: CARBON DIOXIDE - CO2 < 6 mmol/L (21-32)
[2017-10-26] MEDS: PROCHLORPERAZINE 10 MG/2 ML VIAL IVP PRN (14:21)
[2017-10-26 14:54] LABS: BUN - BLOOD UREA NITROGEN 34 mg/dL (6-20); CALCIUM 8.1 mg/dL (8.5-10.3); CHLORIDE 106 mmol/L (101-111); GFR - MDRD 63 (>89); GLUCOSE 259 mg/dL (70-100); MAGNESIUM 2.2 mg/dL (1.7-2.8); SODIUM 133 mmol/L (135-145)
[2017-10-26 14:55] LABS: CARBON DIOXIDE - CO2 < 6 mmol/L (21-32)
[2017-10-26 15:11] LABS: KETONES, SERUM (ACETEST) MODERATE (NEGATIVE)
[2017-10-26] MEDS ORDERED: NS W/20 MEQ KCL 1,000 ML IV STA (15:20)
[2017-10-26 15:22] LABS: ALBUMIN 3.9 g/dL (3.2-5.5); PHOSPHORUS 4.3 mg/dL (2.5-4.6)
[2017-10-26] MEDS: GABAPENTIN 300 MG CAPSULE PO SCH ×2 (16:04→21:24)
[2017-10-26] MEDS: METOCLOPRAMIDE 10 MG TABLET PO SCH ×2 (16:04→21:24)
[2017-10-26] MEDS: ONDANSETRON 4 MG/2 ML VIAL IVP PRN (16:44)
[2017-10-26] MEDS: SODIUM CHLORIDE FLUSH 0.9% 10 ML SYRINGE IVP SCH (17:47)
[2017-10-26] MEDS ORDERED: METOPROLOL 5 MG/5 ML VIAL IVP PRN (17:52)
[2017-10-26] MEDS ORDERED: cloNIDine 0.2 MG PATCH TOP SCH (18:00)
[2017-10-26] MEDS: ENALAPRILAT 1.25 MG/ML VIAL IVP SCH (18:17)
[2017-10-26] MEDS ORDERED: D5NS W/20 MEQ KCL 1,000 ML IV STA (19:55)
[2017-10-26] MEDS ORDERED: cloNIDine 0.1 MG TABLET PO SCH (21:00)
[2017-10-26] MEDS ORDERED: METOPROLOL SUCCINATE 25 MG TABLET PO SCH (21:00)
[2017-10-26] MEDS: AMITRIPTYLINE 25 MG TABLET PO SCH (21:23)
[2017-10-26] MEDS: CILOSTAZOL 100 MG TABLET PO SCH (21:24)
[2017-10-26] MEDS: OXYBUTYNIN 5MG TABLET PO SCH (21:24)
[2017-10-26] MEDS: NYSTATIN CREAM 15 GM TUBE TOP SCH (21:31)
[2017-10-27] MEDS: ENALAPRILAT 1.25 MG/ML VIAL IVP SCH ×5 (00:04→23:51)
[2017-10-27] MEDS: SODIUM CHLORIDE FLUSH 0.9% 10 ML SYRINGE IVP SCH ×4 (00:42→20:37)
[2017-10-27 01:10] LABS: ALBUMIN 3.4 g/dL (3.2-5.5); ALKALINE PHOSPHATASE 156 IU/L (42-121); ALT ALANINE AMINOTRANSFERASE 24 IU/L (10-60); AST ASPARTATE AMINOTRANSFERASE 16 IU/L (10-42); BILIRUBIN,TOTAL 0.7 mg/dL (0.2-1.0); BUN - BLOOD UREA NITROGEN 22 mg/dL (6-20); CALCIUM 8.4 mg/dL (8.5-10.3); CARBON DIOXIDE - CO2 14 mmol/L (21-32); CHLORIDE 113 mmol/L (101-111); CREATININE 0.7 mg/dL (0.4-1.0); GFR - MDRD 95 (>89); GLUCOSE 151 mg/dL (70-100); SODIUM 132 mmol/L (135-145); TOTAL PROTEIN 6.7 g/dL (6.7-8.2)
--- NOTE | 2017-10-27 02:51 | HISTORY & PHYSICAL EXAMINATION ---
DATE OF SERVICE: 10/26/2017 Physician: Jillian Sandhu MD PRIMARY CARE PROVIDER: None. Patient is homeless. ADMITTING PROVIDER: Jillian Sandhu MD CHIEF COMPLAINT: Homeless individual who comes in with DKA. HISTORY OF PRESENT ILLNESS: Patient is a very unfortunate individual. She has been homeless since approximately February 2016. She used to live in [place], and had multiple arrests and multiple issues for substance abuse. She lost custody of her daughters. Her daughters live in [place] with their step- grandmother. Patient came to live here to be closer to her kids and to establish a relationship with them. She originally lived with her father. It was a very tumultuous existence. Police were constantly called to the house because of patient's behavior. She has had multiple court appearances, and at times warrants for her arrest have been placed. Her father, unfortunately, . That left his , patient's stepmother, as the casino porter of the daughters, and with power of mesh man over the kids. She asked patient to leave, and patient has been essentially homeless since that time. Patient usually lives in the field behind [facility]. She has had multiple, multiple, multiple admissions to our service for DKA, polysubstance abuse, hypothermia in association with a heroin overdose, but mainly it has been for her DKA. Her last 2 admissions were September 27 through September 29 and, prior to that, was August 29 through August 30. With this admission, she presented to our emergency room with 2-3 days of poor intake, nausea, vomiting and generalized abdominal pain. She has not taken any insulin for an unknown length of time. There is no other antecedent history. She is lethargic, and only short sentences in response. Not able to stay awake long enough. She was evaluated by Dr. Leonardo Garrison. She arrived by EMS. She was quite hypothermic at 34.5. Heart rate was 115, blood pressure 152/84, respirations at 18, and 99% on room air. She is disheveled, parts of her body covered in dirt. She has impetigo-like lesions on her lower face along her jawline, some on her arms and some on her legs. Again, she is minimally responsive. Her labs show her to have a carbon dioxide of less than 6. BUN 35, creatinine 1.1. Random glucose started out at 554. Venous blood gas shows a pH of 6.926. Base excess is -27.9. She is positive for methamphetamines on her drug screen , and has moderate serum ketones. PAST MEDICAL HISTORY 1. Type 1 diabetes mellitus. 2. History of mild chronic pancreatitis with abnormal CT of the pancreas. 3. Hypertension. 4. Hyperlipidemia. 5. Peripheral vascular disease with constantly gangrenous toes. She has had partial amputations of some toes, but continues to have ischemia and blackness of other toes. 6. Depression with anxiety and panic attacks. 7. Fibromyalgia. 8. History of cholecystectomy. 9. History of tonsillectomy and adenoidectomy. 10. At one point, she has claimed up to 23 pregnancies with 21 abortions and only 2 live births. 11. She has claimed that she has had an ME in the past. Since she has been with us, she has not had a myocardial infarction, and her records from [place] have not been able to be obtained. ALLERGIES 1. CODEINE, WHICH CAUSES HIVES. 2. HYDROCODONE, WHICH CAUSES HIVES. 3. MORPHINE CAUSES ITCHING. 4. MILK CAUSES CRAMPS. 5. NITROFURANTOIN CAUSES A HEADACHE. 6. PAPER TAPE CAUSES A RASH. MEDICATIONS Her medication list is supposed to be: 1. Tylenol. 2. Elavil. 3. Aspirin. 4. Pletal. 5. Catapres. 6. Cardizem CD. 7. Cymbalta. 8. Neurontin. 9. Ibuprofen. 10. Dilaudid 4-8 mg p.o. q.4 hours as needed, as prescribed by ER doctors. 11. NovoLog insulin. 12. Lantus insulin. 13. Reglan p.o. 14. Toprol-XL p.o. 15. Nystatin cream. 16. Ditropan. 17. Tramadol. It is unclear if the patient is getting any of these drugs. SOCIAL HISTORY: Methamphetamine abuse, cannabis abuse, at times heroin abuse. Some IV drugs, some orally ingested. SUBSTANCE ABUSE: Intermittent, but ongoing. She has no history of alcohol abuse. She is currently homeless. FAMILY HISTORY: Dad has of complications of stroke and TIA. Also had a history of coronary artery disease and ME, hyperlipidemia, hypertension. mom is unknown at this time. She says that her mom is an inveterate liar and you can never trust what she says. No siblings. Two children who live with their step-grandmother. The patient has been unable to be able to be physically and mentally supportive of them, and has lost custody. As far as she knows, her children are healthy. REVIEW OF SYSTEMS: Unable to be obtained at this time and is a partially unresponsive patient. PHYSICAL EXAMINATION VITAL SIGNS: Temperature was 36.4 in the ED, 121 pulse, blood pressure has been hypertensive. In the emergency room, she started at 171/106. With us, she has gone as high as 194/122. Respirations 25 and unlabored with fast panting breath as she laid sleeping. She is 95% on room air. GENERAL: She is a malodorous, young, white female who has dirty, matted hair, dirt on her arms, feet covered in dirt. Patient, while homeless, sometimes maintains a decent level of hygiene. With this admission, she is much worse than usual. HEAD AND NECK: Most of her teeth are gone. Pupils are reactive, but slowly so. Her sclerae are muddy. Deeply, deeply tanned face from being out in the elements. Slack feces. No facial asymmetries. The lesions of some type of scabs or abrasions on the right side of her nasolabial fold and crusting along her jaw line bilaterally. NECK: Supple with shotty adenopathy. No goiter or bruits. LUNGS: Fast, panting, shallow breaths and there are no crackles, rhonchi or wheezing. HEART: PMI is normally placed with a tachycardic regular rate and rhythm, and a soft systolic murmur at the left lower sternal border and apex. ABDOMEN: Normal bowel sounds, and she does not grimace with pain on deep palpation. There are no masses. EXTREMITIES: Again, are covered in dirt. Partial amputations of some of her toes with blackness of the left fourth toe. Ankle, knee, elbows, shoulders and wrists have no effusions or heat. Nail beds of her fingers are pale, but not cyanotic and without clubbing. There is no edema. NEUROLOGIC: She is responsive to sternal rub, sometimes voice. Mumbles when she does respond. There appears to be no cranial nerve deficit with facial expressions. I cannot do extraocular movements. When she does speak, speech is low, hoarse, and not understandable. She withdraws hands to noxious stimuli. Withdraws her feet to noxious stimuli. Movement is symmetrical bilaterally. There are no tremors. There do not appear to be focal strength deficits. LABORATORY DATA: Labs were already discussed. She is hyponatremic, severely acidotic, with acute renal insufficiency and a creatinine of 1.1, where her baseline is usually normal. Random glucose started out at 554. Magnesium is normal. Troponins are normal. White cell count is 17.7. Patient usually had a normal white cell count the last 2 admissions. Hemoglobin is 12.8, hematocrit 43.8, platelets of 479. In the emergency room, her urine tox screen was positive for methamphetamines. She continues to have moderate ketones from the ER on transfer to [facility], with an insulin drip. Urinalysis has bacteria, squamous cells, red cells, white cells, negative leukocyte esterase, small occult blood, ketonuria, glucosuria, and a specific gravity of greater than 1.030. A central line was placed by Jane Sinclair. Chest x-ray does not show infiltrate. A right IJ central venous catheter is in the lower SVC. No effusion or pneumothorax. ASSESSMENT/PLAN 1. Diabetic ketoacidosis, Type 1 with a subsequent metabolic derangement of severe acidosis, hyponatremia, dehydration, and acute kidney insufficiency. Plan: a. Admit to ICU for DKA protocol with insulin drip, aggressive IV fluid hydration, and management of electrolytes. b. Attestation: The patient will be admitted less than 96 hours. c. IV insulin will be continued until ketones resolve, and patient able to take p.o. and be started on her regular Lantus and NovoLog. 2. Dehydration as manifested by elevated creatinine and elevated platelets from her hemoconcentration. Again, IV fluids will be aggressively given. Creatinine and hemoconcentration will be monitored with daily BMP and CBCs. 3. Peripheral vascular disease. A known diagnosis and problem for her. When able to take p.o., she will be resumed on her Pletal. 4. Methamphetamine abuse. Urine tox screen positive. We will observe the patient and monitor carefully for signs of withdrawal and continued toxicity. 5. Severe hypertension. No evidence of congestive heart failure, myocardial infarction, and unable to assess her symptoms such as headache. She does not have any focal deficits. I had hoped to resume her oral medications and go from there, but she is having emesis now. We will give IV metoprolol and IV Vasotec. We will also give clonidine patch. 6. Deep venous thrombosis prophylaxis with OZZIE monteiro. 7. FULL CODE status. TD: 10/26/2017 18:05 MTDAnnabelle
[2017-10-27] MEDS: D5NS W/20 MEQ KCL 1,000 ML IV SCH ×2 (04:27→12:33)
[2017-10-27] MEDS: INSULIN GLARGINE 300 UNIT/3 ML PEN SUBQ SCH (05:02)
[2017-10-27] MEDS: SODIUM CHLORIDE FLUSH 0.9% 10 ML SYRINGE IVP PRN ×4 (05:03→20:37)
[2017-10-27 05:23] LABS: BASOPHILS % (AUTO) 0.2 %; EOSINOPHILS % (AUTO) 0.1 %; HGB - HEMOGLOBIN 10.8 g/dL (12.0-16.0); LYMPHOCYTES # (AUTO) 1.8 10^3/uL (1.5-3.5); LYMPHOCYTES % (AUTO) 15.3 %; MEAN CORPUSCULAR HGB CONC 32.1 g/dL (32.0-36.0); MEAN CORPUSCULAR VOLUME 77.7 fL (81.0-99.0); MEAN PLATELET VOLUME 7.6 fL (7.9-10.8); MONOCYTES # (AUTO) 0.9 10^3/uL (0.0-1.0); NEUTROPHILS # (AUTO) 8.8 10^3/uL (1.5-6.6); NEUTROPHILS % (AUTO) 76.4 %; PLT - PLATELET COUNT 374 10^3/uL (130-450); RED BLOOD COUNT 4.32 10^6/uL (4.20-5.40); RED CELL DISTRIBUTION WIDTH 16.3 % (12.0-15.0); WHITE BLOOD COUNT 11.5 x10^3/uL (4.8-10.8)
[2017-10-27 05:25] LABS: KETONES, SERUM (ACETEST) SMALL (NEGATIVE)
[2017-10-27 05:31] LABS: ALBUMIN 3.1 g/dL (3.2-5.5); ALBUMIN/GLOBULIN RATIO 0.9 (1.0-2.2); ALKALINE PHOSPHATASE 138 IU/L (42-121); ALT ALANINE AMINOTRANSFERASE 22 IU/L (10-60); AST ASPARTATE AMINOTRANSFERASE 14 IU/L (10-42); BILIRUBIN,TOTAL 0.5 mg/dL (0.2-1.0); BUN - BLOOD UREA NITROGEN 20 mg/dL (6-20); CALCIUM 7.7 mg/dL (8.5-10.3); CARBON DIOXIDE - CO2 16 mmol/L (21-32); CHLORIDE 111 mmol/L (101-111); CREATININE 0.5 mg/dL (0.4-1.0); GFR - MDRD 140 (>89); GLUCOSE 147 mg/dL (70-100); MAGNESIUM 1.9 mg/dL (1.7-2.8); PHOSPHORUS 1.2 mg/dL (2.5-4.6); SODIUM 135 mmol/L (135-145); TOTAL PROTEIN 6.4 g/dL (6.7-8.2)
[2017-10-27 05:32] LABS: HEMOGLOBIN A1C 1.13 g/dL; HEMOGLOBIN A1C % 11.5 % (4.6-6.2)
[2017-10-27] MEDS ORDERED: POTASSIUM CHLORIDE 20 MEQ TABLET PO ONE (05:51)
[2017-10-27] MEDS: GABAPENTIN 300 MG CAPSULE PO SCH ×3 (06:08→20:44)
[2017-10-27] MEDS: METOCLOPRAMIDE 10 MG TABLET PO SCH ×4 (06:32→20:43)
[2017-10-27 06:42] LABS: VBG PH 7.308 (7.31-7.41)
[2017-10-27] MEDS ORDERED: POTASSIUM PHOSPHATE 21 MMOL in SODIUM CHLORIDE 0.9% 250 ML IV ONE (07:00)
[2017-10-27] MEDS ORDERED: CALCIUM CITRATE 250 MG TABLET PO SCH (07:00)
[2017-10-27] MEDS ORDERED: ASPIRIN CHEW 81 MG TABLET ONE (07:54)
[2017-10-27] MEDS: INSULIN ASPART 300 UNIT/3 ML PEN SUBQ SCH ×5 (08:09→20:53)
[2017-10-27] MEDS: ONDANSETRON 4 MG/2 ML VIAL IVP PRN (08:19)
[2017-10-27] MEDS: CALCIUM CITRATE 250 MG TABLET PO SCH ×4 (08:54→20:45)
[2017-10-27] MEDS ORDERED: diltiaZEM CD 120 MG CAPSULE PO SCH (09:00)
[2017-10-27] MEDS: DULoxetine 20 MG CAPSULE PO SCH (09:09)
[2017-10-27] MEDS: CILOSTAZOL 100 MG TABLET PO SCH ×2 (09:09→20:43)
[2017-10-27] MEDS: OXYBUTYNIN 5MG TABLET PO SCH ×2 (09:10→20:43)
[2017-10-27] MEDS: ASPIRIN EC 81 MG TABLET PO SCH (09:10)
[2017-10-27] MEDS: NYSTATIN CREAM 15 GM TUBE TOP SCH ×2 (09:10→20:45)
[2017-10-27] MEDS: traMADol 50 MG TABLET PO PRN ×2 (09:57→20:43)
[2017-10-27] MEDS: PROCHLORPERAZINE 10 MG/2 ML VIAL IVP PRN (11:26)
[2017-10-27] MEDS ORDERED: INSULIN ASPART 300 UNIT/3 ML PEN SUBQ ONE ×2 (12:08→18:31)
--- NOTE | 2017-10-27 18:20 | PROVIDER PROGRESS NOTE ---
Subjective - Prog Note Date Prog Note Date: 10/27/17 Prog Note Time: 18:17 - Subjective Subjective: She is spending most of the day sleeping. Does wake up enough to ask for her cafeteria trays. Felicitas can usually be quite active, demanding, watching TV, calling the nutrition services on the phone all the time. The last 2 days are more muted for her. Current Medications - Current Medications Current Medications: Active Medications Acetaminophen (Tylenol) 650 mg PO Q4HR PRN PRN Reason: Pain 1 to 4 Last Admin: 10/26/17 12:40 Dose: 650 mg Amitriptyline HCl (Elavil) 25 mg PO HS [facility] Last Admin: 10/26/17 21:23 Dose: 25 mg Aspirin (Ecotrin) 81 mg PO DAILY [facility] Last Admin: 10/27/17 09:10 Dose: Not Given Calcium Citrate () 500 mg PO QID [facility] PRN Reason: Protocol Stop: 10/27/17 21:01 Last Admin: 10/27/17 17:33 Dose: 500 mg Cilostazol (Pletal) 100 mg PO BID [facility] Last Admin: 10/27/17 09:09 Dose: 100 mg Clonidine HCl (Qithzrja-Wfv-9) 1 patch TOP Q7D [facility] Last Admin: 10/26/17 18:17 Dose: 1 patch Duloxetine HCl (Cymbalta) 60 mg PO DAILY [facility] Last Admin: 10/27/17 09:09 Dose: 60 mg Enalaprilat (Vasotec Inj) 1.25 mg IVP Q6HR [facility] Last Admin: 10/27/17 12:29 Dose: 1.25 mg Gabapentin (Neurontin) 900 mg PO TID [facility] Last Admin: 10/27/17 14:30 Dose: 900 mg Heparin Sodium (Beef Lung) () 30 - 50 unit IVP PRN PRN PRN Reason: Central Line Protocol (<24 hr) Potassium Chloride/Dextrose/Sod Cl () 1,000 mls @ 125 mls/hr IV .Q8H [facility] Last Admin: 10/27/17 12:33 Dose: 125 mls/hr Ibuprofen (Motrin) 600 mg PO Q6HR PRN PRN Reason: Pain 1 to 4 Insulin Aspart (Novolog) 1 - 9 unit SUBQ 0800,1200,1700,2100 [facility] PRN Reason: Protocol Last Admin: 10/27/17 16:58 Dose: 26 unit Insulin Glargine (Lantus Solostar) 70 unit SUBQ DAILY [facility] Last Admin: 10/27/17 05:02 Dose: 70 unit Metoclopramide HCl (Reglan) 10 mg PO ACHS [facility] Last Admin: 10/27/17 16:27 Dose: 10 mg Metoprolol Tartrate (Lopressor Inj) 5 mg IVP Q6H PRN PRN Reason: Hypertensive Emergency Nystatin (Mycostatin Cream) 15 applic TOP BID [facility] Last Admin: 10/27/17 09:10 Dose: Not Given Ondansetron HCl (Zofran Inj) 4 mg IVP Q6HR PRN PRN Reason: Nausea / Vomiting Last Admin: 10/27/17 08:19 Dose: 4 mg Ondansetron HCl (Zofran Odt) 4 mg TL Q6HR PRN PRN Reason: Nausea / Vomiting Oxybutynin Chloride (Ditropan) 5 mg PO BID [facility] Last Admin: 10/27/17 09:10 Dose: 5 mg Oxycodone HCl (Roxicodone) 5 mg PO Q4HR PRN PRN Reason: Pain 5 to 7 Prochlorperazine Edisylate (Compazine Inj) 10 mg IVP Q6HR PRN PRN Reason: Nausea / Vomiting Last Admin: 10/27/17 11:26 Dose: 10 mg Sodium Chloride (Normal Saline Flush 0.9%) 10 ml IVP 0100,0900,1700 [facility] Last Admin: 10/27/17 10:00 Dose: 10 ml Sodium Chloride (Normal Saline Flush 0.9%) 10 ml IVP PRN PRN PRN Reason: NEEDED PER PROVIDER ORDERS Last Admin: 10/27/17 06:31 Dose: 10 ml Tramadol HCl (Ultram) 50 mg PO Q6H PRN PRN Reason: MOD PAIN 5-7 Last Admin: 10/27/17 09:57 Dose: 50 mg Objective - Vital Signs/Intake & Output Reviewed Vital Signs: Yes Vital Signs: Vital Signs Pulse Resp BP Pulse Ox 10/27/17 17:00 136 H 18 141/87 H 97 10/27/17 16:00 137 H 19 154/83 H 97 10/27/17 15:00 135 H 20 117/63 95 Intake & Output: Intake & Output 10/24/17 10/25/17 10/26/17 10/27/17 23:59 23:59 23:59 23:59 Intake Total 4186.984 5277.333 Output Total 1200 5480 Balance 2986.984 -202.667 - Objective General Appearance: positive: No acute distress, Lethargic Eyes Bilateral: positive: PERRL ENT: positive: Other (still dry lips but better than yesterday. still with scabs along jaw line. no redness or swelling or drainange.) Neck: positive: No JVD. negative: Stiff neck, Carotid bruit Respiratory: positive: Chest non-tender. negative: Wheezes, Rales, Rhonchi Cardiovascular: positive: Regular rate & rhythm, Tachycardia, Systolic murmur, Other (BP has been high this admit. 180's-190's systolic.). negative: Gallop/S4 , Friction rub Abdomen: positive: No organomegaly, Nml bowel sounds, No distention, Tenderness (diffuse) Skin: positive: Warm, Dry, Other (scabs on face, some on arms. some on legs. same crusty, edge of toes black) Extremities: positive: Full ROM (passively, she wants to sleep) Neurologic/Psychiatric: positive: CN's nml (2-12), Motor nml, Disoriented to place (at times), Disoriented to time (at times), Slurred/abnml speech (at times when you wake her), Other (She is spending a lot of time sleeping. Felicitas is usually quite verbal, demanding, and alert. She has intermittently been sedated depending on which substance she was using prior to admission. But she is more sedated than usual.). negative: Weakness - Lab Results Fish Bones: 10/27/17 04:50 10/27/17 04:50 Other Labs: Lab Results x24hrs 10/27/17 10/27/17 10/27/17 Range/Units 15:57 12:10 08:25 WBC (4.8-10.8) x10^3/uL RBC (4.20-5.40) 10^6/uL Hgb (12.0-16.0) g/dL Hct (37.0-47.0) % MCV (81.0-99.0) fL MCH (27.0-31.0) pg MCHC (32.0-36.0) g/dL RDW (12.0-15.0) % Plt Count (130-450) 10^3/uL MPV (7.9-10.8) fL Neut # (Auto) (1.5-6.6) 10^3/uL Lymph # (Auto) (1.5-3.5) 10^3/uL [place] # (Auto) (0.0-1.0) 10^3/uL Eos # (Auto) (0.0-0.7) 10^3/uL Baso # (Auto) (0.0-0.1) 10^3/uL Absolute Nucleated RBC x10^3/uL Nucleated RBC % /100WBC VBG pH (7.31-7.41) Sodium (135-145) mmol/L Potassium (3.5-5.0) mmol/L Chloride (101-111) mmol/L Carbon Dioxide (21-32) mmol/L Anion Gap (6-13) BUN (6-20) mg/dL Creatinine (0.4-1.0) mg/dL Estimated GFR (MDRD) (>89) Glucose (70-100) mg/dL Glycated Hemoglobin (4.6-6.2) % Estim Average Glucose (70-100) Calcium (8.5-10.3) mg/dL Ionized Calcium Phosphorus (2.5-4.6) mg/dL Magnesium (1.7-2.8) mg/dL Total Bilirubin (0.2-1.0) mg/dL AST (10-42) IU/L ALT (10-60) IU/L Alkaline Phosphatase (42-121) IU/L Troponin I (<0.49) ng/mL Total Protein (6.7-8.2) g/dL Albumin (3.2-5.5) g/dL Globulin (2.1-4.2) g/dL Albumin/Globulin Ratio (1.0-2.2) Serum Ketones SMALL H SMALL H SMALL H (NEGATIVE) 10/27/17 10/27/17 10/27/17 Range/Units 06:30 06:30 04:50 WBC (4.8-10.8) x10^3/uL RBC (4.20-5.40) 10^6/uL Hgb (12.0-16.0) g/dL Hct (37.0-47.0) % MCV (81.0-99.0) fL MCH (27.0-31.0) pg MCHC (32.0-36.0) g/dL RDW (12.0-15.0) % Plt Count (130-450) 10^3/uL MPV (7.9-10.8) fL Neut # (Auto) (1.5-6.6) 10^3/uL Lymph # (Auto) (1.5-3.5) 10^3/uL [place] # (Auto) (0.0-1.0) 10^3/uL Eos # (Auto) (0.0-0.7) 10^3/uL Baso # (Auto) (0.0-0.1) 10^3/uL Absolute Nucleated RBC x10^3/uL Nucleated RBC % /100WBC VBG pH 7.308 L (7.31-7.41) Sodium (135-145) mmol/L Potassium (3.5-5.0) mmol/L Chloride (101-111) mmol/L Carbon Dioxide (21-32) mmol/L Anion Gap (6-13) BUN (6-20) mg/dL Creatinine (0.4-1.0) mg/dL Estimated GFR (MDRD) (>89) Glucose (70-100) mg/dL Glycated Hemoglobin 11.5 H (4.6-6.2) % Estim Average Glucose 283 H (70-100) Calcium (8.5-10.3) mg/dL Ionized Calcium 1.10 L Phosphorus (2.5-4.6) mg/dL Magnesium (1.7-2.8) mg/dL Total Bilirubin (0.2-1.0) mg/dL AST (10-42) IU/L ALT (10-60) IU/L Alkaline Phosphatase (42-121) IU/L Troponin I (<0.49) ng/mL Total Protein (6.7-8.2) g/dL Albumin (3.2-5.5) g/dL Globulin (2.1-4.2) g/dL Albumin/Globulin Ratio (1.0-2.2) Serum Ketones SMALL H (NEGATIVE) 10/27/17 10/27/17 10/27/17 Range/Units 04:50 04:50 04:50 WBC 11.5 H (4.8-10.8) x10^3/uL RBC 4.32 (4.20-5.40) 10^6/uL Hgb 10.8 L (12.0-16.0) g/dL Hct 33.6 L (37.0-47.0) % MCV 77.7 L (81.0-99.0) fL MCH 25.0 L (27.0-31.0) pg MCHC 32.1 (32.0-36.0) g/dL RDW 16.3 H (12.0-15.0) % Plt Count 374 (130-450) 10^3/uL MPV 7.6 L (7.9-10.8) fL Neut # (Auto) 8.8 H (1.5-6.6) 10^3/uL Lymph # (Auto) 1.8 (1.5-3.5) 10^3/uL [place] # (Auto) 0.9 (0.0-1.0) 10^3/uL Eos # (Auto) 0.0 (0.0-0.7) 10^3/uL Baso # (Auto) 0.0 (0.0-0.1) 10^3/uL Absolute Nucleated RBC 0.00 x10^3/uL Nucleated RBC % 0.0 /100WBC VBG pH (7.31-7.41) Sodium 135 (135-145) mmol/L Potassium 3.3 L (3.5-5.0) mmol/L Chloride 111 (101-111) mmol/L Carbon Dioxide 16 L (21-32) mmol/L Anion Gap 8.0 (6-13) BUN 20 (6-20) mg/dL Creatinine 0.5 (0.4-1.0) mg/dL Estimated GFR (MDRD) 140 (>89) Glucose 147 H (70-100) mg/dL Glycated Hemoglobin (4.6-6.2) % Estim Average Glucose (70-100) Calcium 7.7 L (8.5-10.3) mg/dL Ionized Calcium Phosphorus 1.2 L (2.5-4.6) mg/dL Magnesium 1.9 (1.7-2.8) mg/dL Total Bilirubin 0.5 (0.2-1.0) mg/dL AST 14 (10-42) IU/L ALT 22 (10-60) IU/L Alkaline Phosphatase 138 H (42-121) IU/L Troponin I < 0.04 (<0.49) ng/mL Total Protein 6.4 L (6.7-8.2) g/dL Albumin 3.1 L (3.2-5.5) g/dL Globulin 3.3 (2.1-4.2) g/dL Albumin/Globulin Ratio 0.9 L (1.0-2.2) Serum Ketones SMALL H (NEGATIVE) 10/27/17 10/27/17 10/27/17 Range/Units 02:45 00:40 00:40 WBC (4.8-10.8) x10^3/uL RBC (4.20-5.40) 10^6/uL Hgb (12.0-16.0) g/dL Hct (37.0-47.0) % MCV (81.0-99.0) fL MCH (27.0-31.0) pg MCHC (32.0-36.0) g/dL RDW (12.0-15.0) % Plt Count (130-450) 10^3/uL MPV (7.9-10.8) fL Neut # (Auto) (1.5-6.6) 10^3/uL Lymph # (Auto) (1.5-3.5) 10^3/uL [place] # (Auto) (0.0-1.0) 10^3/uL Eos # (Auto) (0.0-0.7) 10^3/uL Baso # (Auto) (0.0-0.1) 10^3/uL Absolute Nucleated RBC x10^3/uL Nucleated RBC % /100WBC VBG pH (7.31-7.41) Sodium 132 L (135-145) mmol/L Potassium 3.7 (3.5-5.0) mmol/L Chloride 113 H (101-111) mmol/L Carbon Dioxide 14 L (21-32) mmol/L Anion Gap 5.0 L (6-13) BUN 22 H (6-20) mg/dL Creatinine 0.7 (0.4-1.0) mg/dL Estimated GFR (MDRD) 95 (>89) Glucose 151 H (70-100) mg/dL Glycated Hemoglobin (4.6-6.2) % Estim Average Glucose (70-100) Calcium 8.4 L (8.5-10.3) mg/dL Ionized Calcium NO Phosphorus (2.5-4.6) mg/dL Magnesium (1.7-2.8) mg/dL Total Bilirubin 0.7 (0.2-1.0) mg/dL AST 16 (10-42) IU/L ALT 24 (10-60) IU/L Alkaline Phosphatase 156 H (42-121) IU/L Troponin I (<0.49) ng/mL Total Protein 6.7 (6.7-8.2) g/dL Albumin 3.4 (3.2-5.5) g/dL Globulin 3.3 (2.1-4.2) g/dL Albumin/Globulin Ratio 1.0 (1.0-2.2) Serum Ketones SMALL H MODERATE H (NEGATIVE) 10/26/17 10/26/17 Range/Units 22:40 22:40 WBC (4.8-10.8) x10^3/uL RBC (4.20-5.40) 10^6/uL Hgb (12.0-16.0) g/dL Hct (37.0-47.0) % MCV (81.0-99.0) fL MCH (27.0-31.0) pg MCHC (32.0-36.0) g/dL RDW (12.0-15.0) % Plt Count (130-450) 10^3/uL MPV (7.9-10.8) fL Neut # (Auto) (1.5-6.6) 10^3/uL Lymph # (Auto) (1.5-3.5) 10^3/uL [place] # (Auto) (0.0-1.0) 10^3/uL Eos # (Auto) (0.0-0.7) 10^3/uL Baso # (Auto) (0.0-0.1) 10^3/uL Absolute Nucleated RBC x10^3/uL Nucleated RBC % /100WBC VBG pH (7.31-7.41) Sodium (135-145) mmol/L Potassium (3.5-5.0) mmol/L Chloride (101-111) mmol/L Carbon Dioxide (21-32) mmol/L Anion Gap (6-13) BUN (6-20) mg/dL Creatinine (0.4-1.0) mg/dL Estimated GFR (MDRD) (>89) Glucose (70-100) mg/dL Glycated Hemoglobin (4.6-6.2) % Estim Average Glucose (70-100) Calcium (8.5-10.3) mg/dL Ionized Calcium Phosphorus (2.5-4.6) mg/dL Magnesium (1.7-2.8) mg/dL Total Bilirubin (0.2-1.0) mg/dL AST (10-42) IU/L ALT (10-60) IU/L Alkaline Phosphatase (42-121) IU/L Troponin I < 0.04 (<0.49) ng/mL Total Protein (6.7-8.2) g/dL Albumin (3.2-5.5) g/dL Globulin (2.1-4.2) g/dL Albumin/Globulin Ratio (1.0-2.2) Serum Ketones MODERATE H (NEGATIVE) Assessment/Plan - Problem List (1) DKA, type 1 Impression: Her anion gap started on a 28 yesterday morning. Over the course of yesterday' s insulin drip, IV fluids, electrolyte supplementation, anion gap is now 8 this morning. She is transitioned off the insulin drip has been given 70 units of Lantus. This afternoon at lunchtime she required 28 units for glucose over 400. I have now ordered 26 units for glucose of 361. A1c is 11.5%. Will increase fixed dose insulin coverage before meals and continue sliding scale with Lantus 70 units.She still has small ketones in her urine so ketosis is not completely resolved Qualifiers: Diabetes mellitus complication detail: without coma Qualified Code(s): E10.10 - Type 1 diabetes mellitus with ketoacidosis without coma (2) Electrolyte imbalance Impression: Hypokalemia, hypocalcemia, with magnesium normal and phosphorus low. She is on the electrolyte replacement protocol in the ICU with appropriate supplementation. That will continue to be monitored and continue to be supplemented. (3) Dehydration Impression: She had quite dry oral mucosa on physical exam, BUN and creatinine were 22 and 0.7. Today she is 20 and 0.5. Although she is improved, her tachycardia continued mild to dry oral mucosa show that she is still behind in her fluid status. Will change from D5 to normal saline. (4) HANSA (acute kidney injury) Impression: Resolved with normalization of BUN and creatinine after aggressive IV hydration. (5) PVD (peripheral vascular disease) Impression: She has had a few amputations of her toes, continues to have black crusted toe. L. No evidence of infection at this time with redness, heat, purulent drainage not visible. (6) Methamphetamine abuse Impression: Urine tox screen positive on admission. Some of her symptoms of lethargy and tachycardia could be from withdrawal. Continue to monitor and treat symptomatically. (7) Hypertension Impression: I have changed her medicines from IV to p.o. since she is having emesis. We continue Lopressor as needed for tachycardia. At times her systolic continues to be elevated. Today the highest systolic she has been is 178. The highest diastolic is 100. This evening she is 135/78. No change in medications at this time. Qualifiers: Hypertension type: essential hypertension Qualified Code(s): I10 - Essential (primary) hypertension (8) Tachycardia Impression: Felicitas says that she has had tachycardia since the time she lived in [place]. She is always use beta-blockers as needed. We will continue here.
[2017-10-27] MEDS: NS W/20 MEQ KCL 1,000 ML IV SCH (19:06)
[2017-10-27] MEDS: METOPROLOL 5 MG/5 ML VIAL IVP PRN (20:38)
[2017-10-27] MEDS: AMITRIPTYLINE 25 MG TABLET PO SCH (20:43)
[2017-10-28] MEDS: oxyCODONE 5 MG TABLET PO PRN ×2 (02:05→12:47)
[2017-10-28] MEDS: ACETAMINOPHEN 325 MG TABLET PO PRN (02:05)
[2017-10-28] MEDS: METOPROLOL 5 MG/5 ML VIAL IVP PRN ×3 (02:11→18:06)
[2017-10-28] MEDS: NS W/20 MEQ KCL 1,000 ML IV SCH ×3 (03:07→19:50)
[2017-10-28] MEDS: traMADol 50 MG TABLET PO PRN (05:58)
[2017-10-28] MEDS: GABAPENTIN 300 MG CAPSULE PO SCH ×3 (05:58→23:17)
[2017-10-28] MEDS: SODIUM CHLORIDE FLUSH 0.9% 10 ML SYRINGE IVP PRN (05:59)
[2017-10-28] MEDS: ENALAPRILAT 1.25 MG/ML VIAL IVP SCH ×3 (05:59→18:18)
[2017-10-28] MEDS: METOCLOPRAMIDE 10 MG TABLET PO SCH ×4 (06:00→20:37)
[2017-10-28 06:08] LABS: BASOPHILS % (AUTO) 0.5 %; EOSINOPHILS % (AUTO) 0.5 %; HGB - HEMOGLOBIN 9.8 g/dL (12.0-16.0); LYMPHOCYTES % (AUTO) 24.3 %; MEAN CORPUSCULAR HEMOGLOBIN 25.3 pg (27.0-31.0); MEAN CORPUSCULAR HGB CONC 32.5 g/dL (32.0-36.0); MEAN CORPUSCULAR VOLUME 77.8 fL (81.0-99.0); MEAN PLATELET VOLUME 7.2 fL (7.9-10.8); MONOCYTES # (AUTO) 0.6 10^3/uL (0.0-1.0); MONOCYTES % (AUTO) 7.9 %; NEUTROPHILS # (AUTO) 5.4 10^3/uL (1.5-6.6); NEUTROPHILS % (AUTO) 66.8 %; PLT - PLATELET COUNT 301 10^3/uL (130-450); RED BLOOD COUNT 3.89 10^6/uL (4.20-5.40); RED CELL DISTRIBUTION WIDTH 16.7 % (12.0-15.0); WHITE BLOOD COUNT 8.1 x10^3/uL (4.8-10.8)
[2017-10-28 06:27] LABS: BILIRUBIN,TOTAL 1.1 mg/dL (0.2-1.0); CALCIUM 8.3 mg/dL (8.5-10.3); CREATININE 0.6 mg/dL (0.4-1.0); MAGNESIUM 1.7 mg/dL (1.7-2.8); PHOSPHORUS 1.4 mg/dL (2.5-4.6); TOTAL PROTEIN 5.9 g/dL (6.7-8.2)
[2017-10-28] MEDS ORDERED: POTASSIUM PHOSPHATE 21 MMOL in SODIUM CHLORIDE 0.9% 250 ML IV ONE (07:00)
[2017-10-28] MEDS: INSULIN ASPART 300 UNIT/3 ML PEN SUBQ SCH ×7 (08:05→22:11)
[2017-10-28] MEDS: INSULIN GLARGINE 300 UNIT/3 ML PEN SUBQ SCH (08:07)
[2017-10-28] MEDS: CILOSTAZOL 100 MG TABLET PO SCH ×2 (08:29→20:37)
[2017-10-28] MEDS: DULoxetine 20 MG CAPSULE PO SCH (08:29)
[2017-10-28] MEDS: OXYBUTYNIN 5MG TABLET PO SCH ×2 (08:29→20:37)
[2017-10-28] MEDS: MAGNESIUM OXIDE 400 MG TABLET PO SCH ×2 (08:30→14:11)
[2017-10-28] MEDS: ASPIRIN EC 81 MG TABLET PO SCH (08:30)
[2017-10-28] MEDS: POLYETHYLENE GLYCOL 3350 17 GM PACKET PO SCH (08:33)
[2017-10-28] MEDS: NYSTATIN CREAM 15 GM TUBE TOP SCH ×2 (08:34→20:37)
[2017-10-28] MEDS ORDERED: INSULIN ASPART 300 UNIT/3 ML PEN SUBQ ONE (11:46)
[2017-10-28] MEDS: SODIUM CHLORIDE FLUSH 0.9% 10 ML SYRINGE IVP SCH ×2 (11:57→18:46)
[2017-10-28] MEDS: ONDANSETRON 4 MG/2 ML VIAL IVP PRN ×2 (12:31→18:04)
--- NOTE | 2017-10-28 15:35 | CT Report ---
Reason: abd pain, emesis, dka Procedure Date: 10/28/2017 Accession Number: [id number] / [id number] Procedure: CT - Abdomen/Pelvis W/O CPT Code: FULL RESULT: EXAM: CT ABDOMEN AND PELVIS EXAM DATE: 10/28/2017 03:16 PM. CLINICAL HISTORY: Abd pain, emesis, dka. COMPARISONS: 01/05/2017. TECHNIQUE: Routine helical CT imaging was performed through the abdomen and pelvis. IV contrast: None. Enteric contrast: No. Reconstructions: Coronal and sagittal. In accordance with CT protocol optimization, one or more of the following dose reduction techniques were utilized for this exam: automated exposure control, adjustment of mA and/or KV based on patient size, or use of iterative reconstructive technique. FINDINGS: There is mild motion artifact. Lung Bases: Unremarkable. Liver: Unremarkable. Gallbladder/Bile Ducts: Cholecystectomy. Spleen: Lobular contour. Pancreas: Atrophic. Adrenal Glands: Normal. Kidneys: Mild bilateral hydronephrosis. No stone or perinephric inflammation. Peritoneal Cavity/Bowel: There is mild hazy edema/inflammation within the upper abdominal mesentery adjacent to a cluster of small bowel loops, which could be mildly thickened. No free fluid, free air or definite lymphadenopathy. The appendix is within normal limits. Pelvic Organs: The urinary bladder is significantly distended. No wall thickening. Vasculature: Unremarkable. Bones: No significant abnormality. Other: None. IMPRESSION: 1. Mild hazy edema/inflammation in the upper abdominal mesentery adjacent to a cluster of small bowel loops is nonspecific and could be related to congestion or enteritis. No bowel obstruction. 2. Distended urinary bladder. Mild bilateral hydronephrosis. [facility]
--- NOTE | 2017-10-28 15:49 | PROVIDER PROGRESS NOTE ---
Subjective - Prog Note Date Prog Note Date: 10/28/17 Prog Note Time: 15:46 - Subjective Pt reports feeling: No change Subjective: She continues to spend most of her day sleeping. Both nursing and I feel that she is not her usual self. This lady has a personality disorder. She has multiple admissions for DKA. When her sugars are down and her ketones are down , she bounces back and starts eating everything in sight. She is very argumentative, demanding, and will throw things at people and curse at them with a loud voice. That is not happening. She remains sleepy, and just feels like "something is not right". She keeps on lamenting that something is wrong and that she does not feel well. She has generalized abdominal pain. But she always has general abdominal pain. She has been diagnosed as mild chronic pancreatitis in the past. There have been no fevers, no coughing. No body rashes. Her hypertension was quite uncontrolled and now is much better today but on the low side. She is requiring 28-30 units of NovoLog insulin at least twice a day to cover her sugars in addition to the Lantus of 70 units. Current Medications - Current Medications Current Medications: Active Medications Acetaminophen (Tylenol) 650 mg PO Q4HR PRN PRN Reason: Pain 1 to 4 Last Admin: 10/28/17 02:05 Dose: 650 mg Amitriptyline HCl (Elavil) 25 mg PO HS [facility] Last Admin: 10/27/17 20:43 Dose: 25 mg Aspirin (Ecotrin) 81 mg PO DAILY [facility] Last Admin: 10/28/17 08:30 Dose: 81 mg Calcium Carbonate/Glycine (Tums) 500 mg PO BID [facility] Cilostazol (Pletal) 100 mg PO BID [facility] Last Admin: 10/28/17 08:29 Dose: 100 mg Clonidine HCl ([id number]-3) 1 patch TOP Q7D [facility] Last Admin: 10/26/17 18:17 Dose: 1 patch Duloxetine HCl (Cymbalta) 60 mg PO DAILY [facility] Last Admin: 10/28/17 08:29 Dose: 60 mg Enalaprilat (Vasotec Inj) 1.25 mg IVP Q6HR [facility] Last Admin: 10/28/17 11:44 Dose: 1.25 mg Gabapentin (Neurontin) 900 mg PO TID [facility] Last Admin: 10/28/17 14:10 Dose: Not Given Heparin Sodium (Beef Lung) () 30 - 50 unit IVP PRN PRN PRN Reason: Central Line Protocol (<24 hr) Last Admin: 10/28/17 05:59 Dose: 30 unit Hydromorphone HCl (Dilaudid Inj Syringe) 0.5 mg IVP Q2H PRN PRN Reason: PAIN Potassium Chloride/Sodium Chloride (Normal Saline 0.9% W/20 Meq Kcl) 1,000 mls @ 125 mls/hr IV .Q8H [facility] Last Admin: 10/28/17 11:13 Dose: 125 mls/hr Ibuprofen (Motrin) 600 mg PO Q6HR PRN PRN Reason: Pain 1 to 4 Insulin Aspart (Novolog) 1 - 9 unit SUBQ 0800,1200,1700,2100 [facility] PRN Reason: Protocol Last Admin: 10/28/17 11:53 Dose: Not Given Insulin Aspart (Novolog) 10 unit SUBQ TIDWM [facility] Last Admin: 10/28/17 11:52 Dose: Not Given Insulin Glargine (Lantus Solostar) 70 unit SUBQ DAILY [facility] Last Admin: 10/28/17 08:07 Dose: 70 unit Metoclopramide HCl (Reglan) 10 mg PO ACHS [facility] Last Admin: 10/28/17 11:09 Dose: 10 mg Metoprolol Tartrate (Lopressor Inj) 5 mg IVP Q6H PRN PRN Reason: Hypertensive Emergency Last Admin: 10/28/17 10:20 Dose: 5 mg Nystatin (Mycostatin Cream) 15 applic TOP BID [facility] Last Admin: 10/28/17 08:34 Dose: Not Given Ondansetron HCl (Zofran Inj) 4 mg IVP Q6HR PRN PRN Reason: Nausea / Vomiting Last Admin: 10/28/17 12:31 Dose: 4 mg Ondansetron HCl (Zofran Odt) 4 mg TL Q6HR PRN PRN Reason: Nausea / Vomiting Oxybutynin Chloride (Ditropan) 5 mg PO BID [facility] Last Admin: 10/28/17 08:29 Dose: 5 mg Oxycodone HCl (Roxicodone) 5 mg PO Q4HR PRN PRN Reason: Pain 5 to 7 Last Admin: 10/28/17 12:47 Dose: 5 mg Pantoprazole Sodium (Protonix) 40 mg PO QDAC [facility] Polyethylene Glycol (Miralax) 17 gm PO DAILY [facility] Last Admin: 10/28/17 08:33 Dose: Not Given Prochlorperazine Edisylate (Compazine Inj) 10 mg IVP Q6HR PRN PRN Reason: Nausea / Vomiting Last Admin: 10/27/17 11:26 Dose: 10 mg Sodium Chloride (Normal Saline Flush 0.9%) 10 ml IVP 0100,0900,1700 [facility] Last Admin: 10/28/17 11:57 Dose: 10 ml Sodium Chloride (Normal Saline Flush 0.9%) 10 ml IVP PRN PRN PRN Reason: NEEDED PER PROVIDER ORDERS Last Admin: 10/28/17 05:59 Dose: 10 ml Tramadol HCl (Ultram) 50 mg PO Q6H PRN PRN Reason: MOD PAIN 5-7 Last Admin: 10/28/17 05:58 Dose: 50 mg Objective - Vital Signs/Intake & Output Reviewed Vital Signs: Yes Vital Signs: Vital Signs Pulse Resp BP Pulse Ox 10/28/17 15:00 126 H 21 97/47 L 97 10/28/17 14:00 129 H 18 95/38 L 96 10/28/17 13:00 129 H 24 121/67 96 10/28/17 12:00 124 H 16 136/81 H 99 Intake & Output: Intake & Output 10/25/17 10/26/17 10/27/17 10/28/17 23:59 23:59 23:59 23:59 Intake Total 4186.984 6570.833 3599.500 Output Total 1200 6980 3650 Balance 2986.984 -409.167 -50.500 - Objective General Appearance: positive: Mild distress, Lethargic, Other (Deeply tanned middle-aged female who looks older than stated age, still with scabs on the jawline that are slowly healing and resolving) Eyes Bilateral: positive: PERRL, EOMI ENT: positive: Pharynx nml, Other (Multiple teeth gone, and the rest that are there have poor dentition and gingivitis) Neck: positive: No JVD. negative: Lymphadenopathy (R), Lymphadenopathy (L), Stiff neck, Carotid bruit Respiratory: positive: Chest non-tender. negative: Wheezes, Rales, Rhonchi Cardiovascular: positive: Regular rate & rhythm, Tachycardia. negative: Gallop/ S4, Friction rub Abdomen: positive: No organomegaly, Nml bowel sounds, No distention, Tenderness (Generalized tenderness), Other (She is eating somewhat. Again she is only eating about 25%. This is in contradistinction to her usual pattern of eating 2 -3 meals at one sitting.). negative: Guarding, Rebound Skin: positive: Warm, Dry Extremities: positive: Non-tender (Except for the toe that is still necrotic), No pedal edema Neurologic/Psychiatric: positive: Oriented x3, CN's nml (2-12), Motor nml, Weakness - Lab Results Fish Bones: 10/28/17 05:50 10/28/17 05:50 Other Labs: Lab Results x24hrs 10/28/17 10/28/17 10/27/17 Range/Units 05:50 05:50 20:30 WBC 8.1 (4.8-10.8) x10^3/uL RBC 3.89 L (4.20-5.40) 10^6/uL Hgb 9.8 L (12.0-16.0) g/dL Hct 30.3 L (37.0-47.0) % MCV 77.8 L (81.0-99.0) fL MCH 25.3 L (27.0-31.0) pg MCHC 32.5 (32.0-36.0) g/dL RDW 16.7 H (12.0-15.0) % Plt Count 301 (130-450) 10^3/uL MPV 7.2 L (7.9-10.8) fL Neut # (Auto) 5.4 (1.5-6.6) 10^3/uL Lymph # (Auto) 2.0 (1.5-3.5) 10^3/uL Bulloch # (Auto) 0.6 (0.0-1.0) 10^3/uL Eos # (Auto) 0.0 (0.0-0.7) 10^3/uL Baso # (Auto) 0.0 (0.0-0.1) 10^3/uL Absolute Nucleated RBC 0.00 x10^3/uL Nucleated RBC % 0.0 /100WBC Sodium 133 L (135-145) mmol/L Potassium 4.0 (3.5-5.0) mmol/L Chloride 100 L (101-111) mmol/L Carbon Dioxide 23 (21-32) mmol/L Anion Gap 10.0 (6-13) BUN 13 (6-20) mg/dL Creatinine 0.6 (0.4-1.0) mg/dL Estimated GFR (MDRD) 113 (>89) Glucose 318 H (70-100) mg/dL Calcium 8.3 L (8.5-10.3) mg/dL Phosphorus 1.4 L (2.5-4.6) mg/dL Magnesium 1.7 (1.7-2.8) mg/dL Total Bilirubin 1.1 H (0.2-1.0) mg/dL AST 12 (10-42) IU/L ALT 19 (10-60) IU/L Alkaline Phosphatase 129 H (42-121) IU/L Total Protein 5.9 L (6.7-8.2) g/dL Albumin 3.0 L (3.2-5.5) g/dL Globulin 2.9 (2.1-4.2) g/dL Albumin/Globulin Ratio 1.0 (1.0-2.2) Serum Ketones SMALL H (NEGATIVE) 10/27/17 Range/Units 15:57 WBC (4.8-10.8) x10^3/uL RBC (4.20-5.40) 10^6/uL Hgb (12.0-16.0) g/dL Hct (37.0-47.0) % MCV (81.0-99.0) fL MCH (27.0-31.0) pg MCHC (32.0-36.0) g/dL RDW (12.0-15.0) % Plt Count (130-450) 10^3/uL MPV (7.9-10.8) fL Neut # (Auto) (1.5-6.6) 10^3/uL Lymph # (Auto) (1.5-3.5) 10^3/uL Bulloch # (Auto) (0.0-1.0) 10^3/uL Eos # (Auto) (0.0-0.7) 10^3/uL Baso # (Auto) (0.0-0.1) 10^3/uL Absolute Nucleated RBC x10^3/uL Nucleated RBC % /100WBC Sodium (135-145) mmol/L Potassium (3.5-5.0) mmol/L Chloride (101-111) mmol/L Carbon Dioxide (21-32) mmol/L Anion Gap (6-13) BUN (6-20) mg/dL Creatinine (0.4-1.0) mg/dL Estimated GFR (MDRD) (>89) Glucose (70-100) mg/dL Calcium (8.5-10.3) mg/dL Phosphorus (2.5-4.6) mg/dL Magnesium (1.7-2.8) mg/dL Total Bilirubin (0.2-1.0) mg/dL AST (10-42) IU/L ALT (10-60) IU/L Alkaline Phosphatase (42-121) IU/L Total Protein (6.7-8.2) g/dL Albumin (3.2-5.5) g/dL Globulin (2.1-4.2) g/dL Albumin/Globulin Ratio (1.0-2.2) Serum Ketones SMALL H (NEGATIVE) Assessment/Plan - Problem List (1) DKA, type 1 Impression: Her anion gap started on a 28 10/26 am, Over the course of 10/26 insulin drip, IV fluids, electrolyte supplementation, anion gap was 8 yesterday morning. She was transitioned off the insulin drip and started on 70 units of Lantus. A1c is 11.5%. I increased fixed dose insulin coverage before meals to 10 units on 10/27 and she needs sometimes a total of 26-30 units before meals and continue sliding scale with Lantus 70 units.She still has small ketones in her urine so ketosis is not completely resolved. Since this is not the norm for her, I suspect she may have another underlying process. Troponin neg so no MT. She does not have a fever and a WBC that was 17K is now nml without abx. No lung finding of pneumonia. No UTI. Foot not infected. She continues to complain of abd pain and food intake is low for her. Will investigate that with CT of abd. Qualifiers: Diabetes mellitus complication detail: without coma Qualified Code(s): E10.10 - Type 1 diabetes mellitus with ketoacidosis without coma (2) Electrolyte imbalance Impression: She had hypokalemia, hypocalcemia, with magnesium normal and phosphorus low on admission. All of this is now nml. She is on the electrolyte replacement protocol in the ICU with appropriate supplementation. That will continue to be monitored and continue to be supplemented. (3) Dehydration Impression: She had quite dry oral mucosa on physical exam, BUN and creatinine were 22 and 0.7. Yesterday she is 20 and 0.5. and today 13/0.6. Although she had improved , her tachycardia continued with mild to dry oral mucosa yesterday and I felt that it showed that she is still behind in her fluid status. Changed from D5 to normal saline. That continues. (4) HANSA (acute kidney injury) Impression: Resolved with normalization of BUN and creatinine after aggressive IV hydration. (5) PVD (peripheral vascular disease) Impression: She has had a few amputations of her toes, continues to have black crusted toe. L. No evidence of infection at this time with redness, heat, purulent drainage not visible. (6) Methamphetamine abuse Impression: Urine tox screen positive on admission. Some of her symptoms of lethargy and tachycardia could be from withdrawal. Continue to monitor and treat symptomatically. (7) Hypertension Impression: I have changed her medicines from po to IV since she is having emesis. We continue Lopressor as needed for tachycardia. At times her systolic continues to be elevated. Today the highest systolic she has been is 158 but she has dropped into the 90's at time. Is this bc of agressive tx with BP meds or impending abd disease? Parameters for holding meds already done. Continue to monitor. Qualifiers: Hypertension type: essential hypertension Qualified Code(s): I10 - Essential (primary) hypertension (8) Tachycardia Impression: Felicitas says that she has had tachycardia since the time she lived in [place]. She is always use beta-blockers as needed. We will continue here. (9) Chronic anemia. Felicitas rarely has a normal hemoglobin. Maybe once a year she will have a hemoglobin of 12 or 13. For the most part her hemoglobin ranges between 9 g up to 11 g. With this admission she has drifted down from 12 g. I taken to consideration that she was hemoconcentrated when she came in with severe dehydration. I expect her hemoglobin to start drifting down. But in view of her abdominal pain will want to make sure we watch that carefully for such things as ulcers or gastritis. She is complaining of dyspepsia and I will give her Protonix and Tums. Again, CT of abd ordered.
[2017-10-28] MEDS: PANTOPRAZOLE 40 MG TABLET PO SCH (15:57)
[2017-10-28] MEDS: CALCIUM CARBONATE CHEW 500 MG TABLET PO SCH ×2 (15:57→20:37)
[2017-10-28] MEDS: HYDROmorphone 0.5 MG/0.5 ML SYRINGE IVP PRN ×2 (18:07→21:12)
[2017-10-28 18:42] LABS: BILIRUBIN,URINE NEGATIVE (NEGATIVE); GLUCOSE, URINE (UA) >=1000 mg/dL (NEGATIVE); KETONES,URINE (UA) >=80 mg/dL (NEGATIVE); LEUKOCYTE ESTERASE, URINE NEGATIVE (NEGATIVE); NITRITE,URINE NEGATIVE (NEGATIVE); OCCULT BLOOD,URINE NEGATIVE (NEGATIVE); PH,URINE 5.5 PH (5.0-7.5); PROTEIN,URINE NEGATIVE (NEGATIVE); UROBILINOGEN,URINE 0.2 (NORMAL) E.U./dL (NORMAL)
[2017-10-28 18:44] LABS: CLARITY,URINE CLEAR (CLEAR)
[2017-10-28 18:45] LABS: HCG UR QUAL NEGATIVE
[2017-10-28] MEDS ORDERED: INSULIN REGULAR HUMAN 100 UNIT in SODIUM CHLORIDE 0.9% 100ML 99 ML IV SCH (19:00)
[2017-10-28] MEDS: AMITRIPTYLINE 25 MG TABLET PO SCH (20:37)
[2017-10-29] MEDS: ENALAPRILAT 1.25 MG/ML VIAL IVP SCH ×4 (00:06→18:59)
[2017-10-29] MEDS: NS W/20 MEQ KCL 1,000 ML IV SCH (03:56)
[2017-10-29] MEDS ORDERED: INSULIN REGULAR HUMAN 100 UNIT in SODIUM CHLORIDE 0.9% 100ML 99 ML IV SCH ×2 (04:15→13:56)
[2017-10-29] MEDS: SODIUM CHLORIDE FLUSH 0.9% 10 ML SYRINGE IVP SCH ×3 (04:28→18:48)
[2017-10-29] MEDS ORDERED: D5.45NS W/20 MEQ KCL 1,000 ML IV SCH (05:00)
[2017-10-29] MEDS: HYDROmorphone 0.5 MG/0.5 ML SYRINGE IVP PRN ×4 (05:05→20:48)
[2017-10-29 06:58] LABS: ALBUMIN 2.7 g/dL (3.2-5.5); BILIRUBIN,TOTAL 1.2 mg/dL (0.2-1.0); CALCIUM 7.7 mg/dL (8.5-10.3); CREATININE 0.6 mg/dL (0.4-1.0); MAGNESIUM 1.7 mg/dL (1.7-2.8); PHOSPHORUS 2.6 mg/dL (2.5-4.6); TOTAL PROTEIN 5.5 g/dL (6.7-8.2)
[2017-10-29] MEDS: GABAPENTIN 300 MG CAPSULE PO SCH ×3 (08:39→22:30)
[2017-10-29] MEDS: IBUPROFEN 600 MG TABLET PO PRN (08:40)
[2017-10-29] MEDS: ACETAMINOPHEN 325 MG TABLET PO PRN ×2 (08:40→16:44)
[2017-10-29] MEDS: METOCLOPRAMIDE 10 MG TABLET PO SCH ×4 (08:41→20:40)
[2017-10-29] MEDS ORDERED: NS W/20 MEQ KCL 1,000 ML IV STA (08:54)
[2017-10-29] MEDS: INSULIN ASPART 300 UNIT/3 ML PEN SUBQ SCH ×6 (09:01→18:58)
[2017-10-29] MEDS: PANTOPRAZOLE 40 MG TABLET PO SCH (09:01)
[2017-10-29] MEDS: POLYETHYLENE GLYCOL 3350 17 GM PACKET PO SCH (09:56)
[2017-10-29] MEDS: ASPIRIN EC 81 MG TABLET PO SCH (09:57)
[2017-10-29] MEDS: DULoxetine 20 MG CAPSULE PO SCH (09:57)
[2017-10-29] MEDS: CILOSTAZOL 100 MG TABLET PO SCH ×2 (09:58→20:40)
[2017-10-29] MEDS: CALCIUM CARBONATE CHEW 500 MG TABLET PO SCH ×2 (09:59→20:41)
[2017-10-29] MEDS: OXYBUTYNIN 5MG TABLET PO SCH ×2 (09:59→20:40)
[2017-10-29] MEDS: cefTRIAXone 2 GM in SODIUM CHLORIDE 0.9% MINIBAG 100 ML IV SCH (10:16)
[2017-10-29] MEDS: NYSTATIN CREAM 15 GM TUBE TOP SCH ×2 (11:36→22:16)
[2017-10-29] MEDS: NICOTINE 7 MG PATCH TOP SCH (11:37)
[2017-10-29] MEDS ORDERED: SODIUM CHLORIDE 0.9% 500 ML IV PRN (11:44)
[2017-10-29] MEDS: DOCUSATE SODIUM 250 MG CAPSULE PO SCH (12:26)
[2017-10-29] MEDS: SENNA 8.6 MG TABLET PO SCH (12:27)
[2017-10-29] MEDS: SODIUM CHLORIDE FLUSH 0.9% 10 ML SYRINGE IVP PRN ×2 (13:42→15:13)
[2017-10-29] MEDS: DIGOXIN 500 MCG/2 ML AMP IVP SCH ×2 (14:41→20:39)
--- NOTE | 2017-10-29 18:21 | PROVIDER PROGRESS NOTE ---
Subjective - Prog Note Date Prog Note Date: 10/29/17 Prog Note Time: 18:18 - Subjective Pt reports feeling: Improved Subjective: Yesterday, she was so miserable. Not rebounding like she usually does. And definitely not eating like she usually does. I felt that we were missing a diagnosis as the cause of her continually rising glucose. By yesterday evening she had gone up to over 500 in spite of Lantus 70 subcu and up to 28 units subcu NovoLog 3 times daily before meals. She was also only eating 25% of her meals. CT the abdomen showed mild bilateral hydronephrosis. Mild hazy edema/ inflammation within the upper abdominal mesentery adjacent to a cluster of small bowel loops, mildly thickened. No free air, no free fluid, no lymphadenopathy. The urinary bladder was significantly distended no wall thickening. I ordered a Zamarripa to be placed since she had a distended bladder, was unable to urinate good amounts, and had hydronephrosis. Her urinalysis yesterday continue to have glucosuria and ketonuria but no infection. I resumed her insulin drip. Have been adjusting her IV fluids from D5 2.9. She is on 1-2 units an hour and is bringing her glucose down to the 300 range by this afternoon. This morning I also added Rocephin. The only source of infection I could find with the scabs on her face, on her anterior and lateral thighs, and she even had one on the top of her scalp that was quite tender. By this evening she has woken up enough that she is eaten almost 100% of her dinner. She still feels a little groggy, still hurts a little bit all over but much improved from this morning. Current Medications - Current Medications Current Medications: Active Medications Generic Name Dose Route Start Last Admin Trade Name Freq PRN Reason Stop Dose Admin Acetaminophen 650 mg 10/26/17 10:18 10/29/17 16:44 Tylenol PO 650 mg Q4HR PRN Administration Pain 1 to 4 Amitriptyline HCl 25 mg 10/26/17 21:00 10/28/17 20:37 Elavil PO 25 mg HS SYLVIA Administration Aspirin 81 mg 10/27/17 09:00 10/29/17 09:57 Ecotrin PO 81 mg DAILY SYLVIA Administration Calcium Carbonate/Glycine 500 mg 10/28/17 16:00 09/07/18 09:59 Tums PO 500 mg BID SYLVIA Administration Cilostazol 100 mg 10/26/17 21:00 10/29/17 09:58 Pletal PO 100 mg BID SYLVIA Administration Clonidine HCl 1 patch 10/26/17 18:00 10/26/17 18:17 [id number]-[id number] TOP 1 patch Q7D SYLVIA Administration Digoxin 250 mcg 10/29/17 14:00 10/29/17 14:41 Lanoxin Inj IVP 10/29/17 21:01 250 mcg BID SYLVIA Administration Docusate Sodium 250 - 500 mg 10/29/17 12:00 10/29/17 12:26 Colace 250mg Capsule PO 250 mg DAILY SYLVIA Administration Duloxetine HCl 60 mg 10/27/17 09:00 10/29/17 09:57 Cymbalta PO 60 mg DAILY SYLVIA Administration Enalaprilat 1.25 mg 10/26/17 18:00 10/29/17 12:32 Vasotec Inj IVP 1.25 mg Q6HR SYLVIA Administration Gabapentin 900 mg 10/26/17 14:00 10/29/17 14:18 Neurontin PO 900 mg TID SYLVIA Administration Heparin Sodium (Beef Lung) 30 - 50 unit 10/26/17 11:12 10/28/17 05:59 IVP 30 unit PRN PRN Administration Central Line Protocol (<24 hr) Hydromorphone HCl 0.5 mg 10/28/17 13:56 10/29/17 13:42 Dilaudid Inj Syringe IVP 0.5 mg Q2H PRN Administration PAIN Ceftriaxone Sodium 2 gm/ 100 mls @ 200 mls/hr 10/29/17 09:00 10/29/17 10:56 Sodium Chloride IV Infused DAILY SYLVIA Infusion Sodium Chloride 500 mls @ 20 mls/hr 10/29/17 11:44 10/29/17 16:00 Normal Saline 0.9% IV 20 mls/hr Q24H PRN Infusion TKO RATE Insulin Human Regular 100 unit 100 mls @ 2 mls/hr 10/29/17 13:56 10/29/17 16: 00 / Sodium Chloride IV 2 unit/hr .Q50H SYLVIA 2 mls/hr Protocol Titration 2 UNIT/HR Ibuprofen 600 mg 10/26/17 12:15 10/29/17 08:40 Motrin PO 600 mg Q6HR PRN Administration Pain 1 to 4 Insulin Aspart 1 - 9 unit 10/27/17 08:00 10/29/17 12:27 Novolog SUBQ Not Given 0800,1200,1700,2100 [facility] Protocol Insulin Aspart 10 unit 10/27/17 20:00 10/29/17 12:27 Novolog SUBQ Not Given TIDWM [facility] Metoclopramide HCl 10 mg 10/26/17 16:00 10/29/17 16:44 Reglan PO 10 mg ACHS SYLVIA Administration Metoprolol Tartrate 5 mg 10/27/17 15:12 10/28/17 18:06 Lopressor Inj IVP 5 mg Q6H PRN Administration Hypertensive Emergency Nicotine 1 patch 10/29/17 11:00 10/29/17 11:37 Nicoderm TOP 1 patch DAILY SYLVIA Administration Nystatin 15 applic 10/26/17 21:00 10/29/17 11:36 Mycostatin Cream TOP Not Given BID [facility] Ondansetron HCl 4 mg 10/26/17 10:18 10/28/17 18:04 Zofran Inj IVP 4 mg Q6HR PRN Administration Nausea / Vomiting Ondansetron HCl 4 mg 10/26/17 10:18 Zofran Odt TL Q6HR PRN Nausea / Vomiting Oxybutynin Chloride 5 mg 10/26/17 21:00 10/29/17 09:59 Ditropan PO 5 mg BID SYLVIA Administration Oxycodone HCl 5 mg 10/26/17 10:18 10/28/17 12:47 Roxicodone PO 5 mg Q4HR PRN Administration Pain 5 to 7 Pantoprazole Sodium 40 mg 10/28/17 16:00 10/29/17 09:01 Protonix PO 40 mg QDAC SYLVIA Administration Polyethylene Glycol 17 gm 10/28/17 09:00 10/29/17 09:56 Miralax PO 17 gm DAILY [facility] Administration Prochlorperazine Edisylate 10 mg 10/26/17 10:18 10/27/17 11:26 Compazine Inj IVP 10 mg Q6HR PRN Administration Nausea / Vomiting Senna 8.6 - 17.2 mg 10/29/17 12:00 10/29/17 12:27 Senokot PO 17.2 mg DAILY SYLVIA Administration Sodium Chloride 10 ml 10/26/17 17:00 10/29/17 10:01 Normal Saline Flush 0.9% IVP Not Given 0100,0900,1700 SYLVIA Sodium Chloride 10 ml 10/26/17 10:18 10/29/17 15:13 Normal Saline Flush 0.9% IVP 30 ml PRN PRN Administration NEEDED PER PROVIDER ORDERS Tramadol HCl 50 mg 10/26/17 12:15 10/28/17 05:58 Ultram PO 50 mg Q6H PRN Administration MOD PAIN 5-7 Objective - Vital Signs/Intake & Output Reviewed Vital Signs: Yes Vital Signs: Vital Signs Temp Pulse Pulse Resp BP Pulse Ox 10/29/17 18:00 127 H 14 117/74 97 10/29/17 16:00 36.9 C 123 H 14 109/51 L 94 10/29/17 15:00 124 H 14 103/53 L 93 10/29/17 14:41 137 H 137 H 102/61 10/29/17 14:30 126 H 85/48 L Intake & Output: Intake & Output 10/26/17 10/27/17 10/28/17 10/29/17 23:59 23:59 23:59 23:59 Intake Total 4186.984 6570.833 6021.333 3887.334 Output Total 1200 6980 5450 3150 Balance 2986.984 -409.167 571.333 737.334 - Objective General Appearance: positive: Alert (And slow to respond but still appropriate. She is awake when I walk in the room for the fourth time today. Sitting up watching TV and having eaten her dinner and now asking for a second dinner. She complains that the food is too hard and needs something soft for her teeth) , Lethargic Eyes Bilateral: positive: PERRL ENT: positive: Other (More than half of her teeth are gone and those that are remaining are quite loose, with gingivitis and dental caries.) Neck: positive: No JVD. negative: Stiff neck, Carotid bruit Respiratory: positive: Chest non-tender. negative: Wheezes, Rales, Rhonchi Cardiovascular: positive: Regular rate & rhythm, Tachycardia. negative: Gallop/ S4, Friction rub Abdomen: positive: No organomegaly, Nml bowel sounds, No distention, Tenderness (Mild and diffuse). negative: Guarding, Rebound Skin: positive: Warm, Dry, Other (She has small dried scabs. They range from the size of a dime to a size of a quarter. There are a few on the top of her scalp, several along her jawline bilaterally, a few scattered on the right lateral thigh and one on the right anterior thigh. A couple in the left lateral calf. The right third toe is brown and scabbed over but no ischemia. Most of the rest of her amputated toes have closed wounds, all healed. No redness or heat.) Neurologic/Psychiatric: positive: Oriented x3, CN's nml (2-12), Motor nml - Lab Results Fish Bones: 10/28/17 05:50 10/29/17 06:25 Other Labs: Lab Results x24hrs 10/29/17 10/29/17 10/29/17 Range/Units 15:15 09:35 06:25 Sodium 130 L (135-145) mmol/L Potassium 4.4 (3.5-5.0) mmol/L Chloride 99 L (101-111) mmol/L Carbon Dioxide 22 (21-32) mmol/L Anion Gap 9.0 (6-13) BUN 15 (6-20) mg/dL Creatinine 0.6 (0.4-1.0) mg/dL Estimated GFR (MDRD) 113 (>89) Glucose 311 H (70-100) mg/dL Calcium 7.7 L (8.5-10.3) mg/dL Phosphorus 2.6 (2.5-4.6) mg/dL Magnesium 1.7 (1.7-2.8) mg/dL Total Bilirubin 1.2 H (0.2-1.0) mg/dL AST 11 (10-42) IU/L ALT 17 (10-60) IU/L Alkaline Phosphatase 115 (42-121) IU/L Total Protein 5.5 L (6.7-8.2) g/dL Albumin 2.7 L (3.2-5.5) g/dL Globulin 2.8 (2.1-4.2) g/dL Albumin/Globulin Ratio 1.0 (1.0-2.2) Urine Color Urine Clarity (CLEAR) Urine pH (5.0-7.5) PH Ur Specific Lyons (1.002-1.030) Urine Protein (NEGATIVE) mg/dL Urine Glucose (UA) (NEGATIVE) mg/dL Urine Ketones (NEGATIVE) mg/dL Urine Occult Blood (NEGATIVE) Urine Nitrite (NEGATIVE) Urine Bilirubin (NEGATIVE) Urine Urobilinogen (NORMAL) E.U./dL Ur Leukocyte Esterase (NEGATIVE) Ur Microscopic Review Urine Culture Comments Urine HCG, Qual Serum Ketones SMALL H SMALL H (NEGATIVE) 10/28/17 10/28/17 Range/Units 17:00 17:00 Sodium (135-145) mmol/L Potassium (3.5-5.0) mmol/L Chloride (101-111) mmol/L Carbon Dioxide (21-32) mmol/L Anion Gap (6-13) BUN (6-20) mg/dL Creatinine (0.4-1.0) mg/dL Estimated GFR (MDRD) (>89) Glucose (70-100) mg/dL Calcium (8.5-10.3) mg/dL Phosphorus (2.5-4.6) mg/dL Magnesium (1.7-2.8) mg/dL Total Bilirubin (0.2-1.0) mg/dL AST (10-42) IU/L ALT (10-60) IU/L Alkaline Phosphatase (42-121) IU/L Total Protein (6.7-8.2) g/dL Albumin (3.2-5.5) g/dL Globulin (2.1-4.2) g/dL Albumin/Globulin Ratio (1.0-2.2) Urine Color YELLOW Urine Clarity CLEAR (CLEAR) Urine pH 5.5 (5.0-7.5) PH Ur Specific Lyons 1.020 1.020 (1.002-1.030) Urine Protein NEGATIVE (NEGATIVE) mg/dL Urine Glucose (UA) >=1000 H (NEGATIVE) mg/dL Urine Ketones >=80 H (NEGATIVE) mg/dL Urine Occult Blood NEGATIVE (NEGATIVE) Urine Nitrite NEGATIVE (NEGATIVE) Urine Bilirubin NEGATIVE (NEGATIVE) Urine Urobilinogen 0.2 (NORMAL) (NORMAL) E.U./dL Ur Leukocyte Esterase NEGATIVE (NEGATIVE) Ur Microscopic Review NOT INDICATED Urine Culture Comments NOT INDICATED Urine HCG, Qual NEGATIVE Serum Ketones (NEGATIVE) Assessment/Plan - Problem List (1) DKA, type 1 Impression: Her anion gap started on a 28 9/4 am, Over the course of 10/26 insulin drip, IV fluids, electrolyte supplementation, anion gap was 8 yesterday morning. She was transitioned off the insulin drip and started on 70 units of Lantus. A1c is 11.5%. I increased fixed dose insulin coverage before meals to 10 units on 10/27 and she needs sometimes a total of 26-30 units before meals and continue sliding scale with Lantus 70 units.She still has small ketones in her urine so ketosis is not completely resolved. She continued this pattern into 10/28. Since this is not the norm for her, I suspected she may have another underlying process. Troponin neg so no WA. She does not have a fever and a WBC that was 17K is now nml without abx. No lung finding of pneumonia. No UTI. Foot not infected. She continues to complain of abd pain and food intake is low for her. CT of abd. Results's show the same hazy inflammation that she has had in previous CTs. She is felt to have mild chronic pancreatitis. She has been seen by specialist and nothing to do for that. The only thing I can find today is her horrible dentition, and the scabs. As such have added Rocephin this morning and she is improved over the course of the day. The Rocephin is a complete guess on my part with regards to dental treatment as well as skin treatment. Plan is to continue her IV insulin drip for tonight into tomorrow. I am using the drip more as a continuous insulin pump. She needs to have moderate sliding scale added to that because her glucose is still 300 and something this evening.Even today she continues to have a small amount of ketones in her serum. Qualifiers: Diabetes mellitus complication detail: without coma Qualified Code(s): E10.10 - Type 1 diabetes mellitus with ketoacidosis without coma (2) Electrolyte imbalance Impression: She had hypokalemia, hypocalcemia, with magnesium normal and phosphorus low on admission. All of this is now nml. She is on the electrolyte replacement protocol in the ICU with appropriate supplementation. That will continue to be monitored and continue to be supplemented. (3) Dehydration Impression: She had quite dry oral mucosa on physical exam, BUN and creatinine were 22 and 0.7. 10/27 she is 20 and 0.5. and 10/28 she was 13/0.6. Continues to be nml today. Although she had improved, her tachycardia continued with mild to dry oral mucosa 10/27 and I felt that it showed that she is still behind in her fluid status. Changed from D5 to normal saline. That continues. (4) HANSA (acute kidney injury) Impression: Resolved with normalization of BUN and creatinine after aggressive IV hydration. (5) PVD (peripheral vascular disease) Impression: She has had a few amputations of her toes, continues to have black to brown crusted toe on the 3rd left. No evidence of infection at this time with redness , heat, purulent drainage not visible. (6) Methamphetamine abuse Impression: Urine tox screen positive on admission. Some of her symptoms of lethargy and tachycardia could be from withdrawal. Continue to monitor and treat symptomatically. (7) Hypertension Impression: I have changed her medicines from po to IV since she is having emesis. We continue Lopressor as needed for tachycardia. At times her systolic continues to be elevated. Today the highest systolic she has been is 141 but she has dropped into the 103 at time. Parameters for holding meds already done. Continue to monitor. Qualifiers: Hypertension type: essential hypertension Qualified Code(s): I10 - Essential (primary) hypertension (8) Tachycardia Impression: Felicitas says that she has had tachycardia since the time she lived in [place]. She is always use beta-blockers as needed. We will continue here. (9) Chronic anemia. Felicitas rarely has a normal hemoglobin. Maybe once a year she will have a hemoglobin of 12 or 13. For the most part her hemoglobin ranges between 9 g up to 11 g. With this admission she has drifted down from 12 g. I taken to consideration that she was hemoconcentrated when she came in with severe dehydration. I expect her hemoglobin to start drifting down. But in view of her abdominal pain will want to make sure we watch that carefully for such things as ulcers or gastritis. She is complaining of dyspepsia and I will give her Protonix and Tums. Again, CT of abd ordered and as above.
[2017-10-29] MEDS: AMITRIPTYLINE 25 MG TABLET PO SCH (20:40)
[2017-10-29] MEDS ORDERED: INSULIN ASPART 300 UNIT/3 ML PEN SUBQ SCH (21:00)
[2017-10-29] MEDS: INSULIN GLARGINE 300 UNIT/3 ML PEN SUBQ SCH (21:17)
[2017-10-30] MEDS: ENALAPRILAT 1.25 MG/ML VIAL IVP SCH ×5 (00:42→18:15)
[2017-10-30] MEDS: SODIUM CHLORIDE FLUSH 0.9% 10 ML SYRINGE IVP SCH ×3 (01:00→18:15)
[2017-10-30] MEDS: HYDROmorphone 0.5 MG/0.5 ML SYRINGE IVP PRN ×2 (03:01→12:03)
[2017-10-30] MEDS: GABAPENTIN 300 MG CAPSULE PO SCH ×3 (06:46→21:34)
[2017-10-30] MEDS: METOCLOPRAMIDE 10 MG TABLET PO SCH ×4 (06:54→21:24)
[2017-10-30] MEDS: PANTOPRAZOLE 40 MG TABLET PO SCH (06:54)
[2017-10-30] MEDS: ACETAMINOPHEN 325 MG TABLET PO PRN ×3 (07:57→20:30)
[2017-10-30] MEDS: oxyCODONE 5 MG TABLET PO PRN ×3 (07:57→20:59)
[2017-10-30] MEDS ORDERED: INSULIN ASPART 300 UNIT/3 ML PEN SUBQ SCH ×6 (09:00→17:00)
[2017-10-30] MEDS: INSULIN ASPART 300 UNIT/3 ML PEN SUBQ SCH ×4 (09:21→21:23)
[2017-10-30] MEDS: cefTRIAXone 2 GM in SODIUM CHLORIDE 0.9% MINIBAG 100 ML IV SCH (10:04)
[2017-10-30] MEDS: CALCIUM CARBONATE CHEW 500 MG TABLET PO SCH ×2 (10:04→21:24)
[2017-10-30] MEDS: ASPIRIN EC 81 MG TABLET PO SCH (10:04)
[2017-10-30] MEDS: CILOSTAZOL 100 MG TABLET PO SCH ×2 (10:11→21:24)
[2017-10-30] MEDS: OXYBUTYNIN 5MG TABLET PO SCH ×2 (10:11→21:24)
[2017-10-30] MEDS: DULoxetine 20 MG CAPSULE PO SCH (10:11)
[2017-10-30] MEDS: NICOTINE 7 MG PATCH TOP SCH (10:12)
[2017-10-30] MEDS: POLYETHYLENE GLYCOL 3350 17 GM PACKET PO SCH (10:12)
[2017-10-30] MEDS: DOCUSATE SODIUM 250 MG CAPSULE PO SCH (10:12)
[2017-10-30] MEDS: NYSTATIN CREAM 15 GM TUBE TOP SCH ×2 (10:13→21:29)
[2017-10-30] MEDS: SENNA 8.6 MG TABLET PO SCH (10:13)
[2017-10-30 10:45] LABS: BASOPHILS % (AUTO) 0.6 %; EOSINOPHILS % (AUTO) 0.9 %; HGB - HEMOGLOBIN 9.2 g/dL (12.0-16.0); LYMPHOCYTES # (AUTO) 1.6 10^3/uL (1.5-3.5); LYMPHOCYTES % (AUTO) 30.3 %; MEAN CORPUSCULAR HEMOGLOBIN 25.2 pg (27.0-31.0); MEAN CORPUSCULAR HGB CONC 32.1 g/dL (32.0-36.0); MEAN CORPUSCULAR VOLUME 78.5 fL (81.0-99.0); MEAN PLATELET VOLUME 7.5 fL (7.9-10.8); MONOCYTES # (AUTO) 0.3 10^3/uL (0.0-1.0); MONOCYTES % (AUTO) 5.3 %; NEUTROPHILS # (AUTO) 3.3 10^3/uL (1.5-6.6); NEUTROPHILS % (AUTO) 62.9 %; PLT - PLATELET COUNT 240 10^3/uL (130-450); RED BLOOD COUNT 3.64 10^6/uL (4.20-5.40); RED CELL DISTRIBUTION WIDTH 16.4 % (12.0-15.0); WHITE BLOOD COUNT 5.3 x10^3/uL (4.8-10.8)
[2017-10-30 10:51] LABS: CREATININE 0.7 mg/dL (0.4-1.0)
[2017-10-30] MEDS: SODIUM CHLORIDE FLUSH 0.9% 10 ML SYRINGE IVP PRN ×2 (12:04→12:42)
[2017-10-30] MEDS ORDERED: POTASSIUM CHLORIDE 20 MEQ TABLET PO ONE (12:31)
[2017-10-30 12:50] LABS: ALBUMIN 2.7 g/dL (3.2-5.5); MAGNESIUM 1.7 mg/dL (1.7-2.8); PHOSPHORUS 2.2 mg/dL (2.5-4.6)
[2017-10-30] MEDS: NEUTRA-PHOS 250 MG TABLET PO SCH ×2 (14:34→16:37)
--- NOTE | 2017-10-30 15:16 | PROVIDER PROGRESS NOTE ---
Subjective - Prog Note Date Prog Note Date: 10/30/17 Prog Note Time: 15:14 - Subjective Pt reports feeling: No change Subjective: She started eating more food yesterday. More toward the end of the day. She still tells us that she just feels miserable. She really cannot put her finger on it. Is not chest pain or abdominal pain. Her toes do not hurt anymore than usual. Her main complaint of discomfort is the boil-like lesions that are on her scalp, and on her body here and there. The ones that she presented with on admission are drying up and going away. She continues to get new ones. On review of her vitals her temperature is still 36-37. Heart rate remains above 100 consistently. She is either 110-137. This is partly because she cannot get her Lopressor on a regular basis. For holding parameters she does not get her Lopressor when the blood pressure is low. She had low blood pressure yesterday to 103/53. This afternoon she is 105/56 it is low as 94/41. She was taken off the insulin drip on October 27. Resumed on her Lantus and short-acting insulin but glucose continued to climb so I resumed her drip October 28. I was using it more as a base of insulin drip then for treatment of DKA. Covering hospitalist that evening change her back to Lantus and she has been on Lantus and short-acting insulin since the customer service and sales consultant hours of October 29. I added short acting insulin of 10 units before each meal this morning. Since glucose is still in the 300s-350 range I am increasing the short acting insulin to 15 units before meals 3 times daily and continuing the Lantus 70 units. Current Medications - Current Medications Current Medications: Active Medications Acetaminophen (Tylenol) 650 mg PO Q4HR PRN PRN Reason: Pain 1 to 4 Last Admin: 10/30/17 15:07 Dose: 650 mg Amitriptyline HCl (Elavil) 25 mg PO HS [facility] Last Admin: 10/29/17 20:40 Dose: 25 mg Aspirin (Ecotrin) 81 mg PO DAILY [facility] Last Admin: 10/30/17 10:04 Dose: 81 mg Calcium Carbonate/Glycine (Tums) 500 mg PO BID [facility] Last Admin: 10/30/17 10:04 Dose: 500 mg Cilostazol (Pletal) 100 mg PO BID [facility] Last Admin: 10/30/17 10:11 Dose: 100 mg Clonidine HCl (Wlduijou-Zay-4) 1 patch TOP Q7D [facility] Last Admin: 10/26/17 18:17 Dose: 1 patch Docusate Sodium (Colace 250mg Capsule) 250 - 500 mg PO DAILY [facility] Last Admin: 10/30/17 10:12 Dose: Not Given Duloxetine HCl (Cymbalta) 60 mg PO DAILY [facility] Last Admin: 10/30/17 10:11 Dose: 60 mg Enalaprilat (Vasotec Inj) 1.25 mg IVP Q6HR [facility] Last Admin: 10/30/17 12:42 Dose: 1.25 mg Gabapentin (Neurontin) 900 mg PO TID [facility] Last Admin: 10/30/17 14:33 Dose: 900 mg Heparin Sodium (Beef Lung) () 30 - 50 unit IVP PRN PRN PRN Reason: Central Line Protocol (<24 hr) Last Admin: 10/28/17 05:59 Dose: 30 unit Hydromorphone HCl (Dilaudid Inj Syringe) 0.5 mg IVP Q2H PRN PRN Reason: PAIN Last Admin: 10/30/17 12:03 Dose: 0.5 mg Ceftriaxone Sodium 2 gm/ (Sodium Chloride) 100 mls @ 200 mls/hr IV DAILY [facility] Last Infusion: 10/30/17 10:35 Dose: Infused Sodium Chloride (Normal Saline 0.9%) 500 mls @ 20 mls/hr IV Q24H PRN PRN Reason: TKO RATE Last Infusion: 10/30/17 10:04 Dose: Infused Ibuprofen (Motrin) 600 mg PO Q6HR PRN PRN Reason: Pain 1 to 4 Last Admin: 10/29/17 08:40 Dose: 600 mg Insulin Aspart (Novolog) 3 - 11 unit SUBQ 0800,1200,1700,2100 [facility] PRN Reason: Protocol Last Admin: 10/30/17 12:20 Dose: 9 unit Insulin Aspart (Novolog) 15 unit SUBQ QDBREAKFAST [facility] PRN Reason: Protocol Insulin Aspart (Novolog) 15 unit SUBQ QDDINNER [facility] PRN Reason: Protocol Insulin Aspart (Novolog) 15 unit SUBQ QDLUNCH [facility] PRN Reason: Protocol Insulin Glargine (Lantus Solostar) 70 unit SUBQ QPM [facility] Last Admin: 10/29/17 21:17 Dose: 70 unit Metoclopramide HCl (Reglan) 10 mg PO ACHS [facility] Last Admin: 10/30/17 12:02 Dose: 10 mg Metoprolol Tartrate (Lopressor Inj) 5 mg IVP Q6H PRN PRN Reason: Hypertensive Emergency Last Admin: 10/28/17 18:06 Dose: 5 mg Nicotine (Nicoderm) 1 patch TOP DAILY [facility] Last Admin: 10/30/17 10:12 Dose: 1 patch Nystatin (Mycostatin Cream) 15 applic TOP BID [facility] Last Admin: 10/30/17 10:13 Dose: Not Given Ondansetron HCl (Zofran Inj) 4 mg IVP Q6HR PRN PRN Reason: Nausea / Vomiting Last Admin: 10/28/17 18:04 Dose: 4 mg Ondansetron HCl (Zofran Odt) 4 mg TL Q6HR PRN PRN Reason: Nausea / Vomiting Oxybutynin Chloride (Ditropan) 5 mg PO BID [facility] Last Admin: 10/30/17 10:11 Dose: 5 mg Oxycodone HCl (Roxicodone) 5 mg PO Q4HR PRN PRN Reason: Pain 5 to 7 Last Admin: 10/30/17 15:08 Dose: 5 mg Pantoprazole Sodium (Protonix) 40 mg PO QDAC [facility] Last Admin: 10/30/17 06:54 Dose: 40 mg Polyethylene Glycol (Miralax) 17 gm PO DAILY [facility] Last Admin: 10/30/17 10:12 Dose: 17 gm Prochlorperazine Edisylate (Compazine Inj) 10 mg IVP Q6HR PRN PRN Reason: Nausea / Vomiting Last Admin: 10/27/17 11:26 Dose: 10 mg Senna (Senokot) 8.6 - 17.2 mg PO DAILY [facility] Last Admin: 10/30/17 10:13 Dose: Not Given Sodium Chloride (Normal Saline Flush 0.9%) 10 ml IVP 0100,0900,1700 [facility] Last Admin: 10/30/17 10:20 Dose: 50 ml Sodium Chloride (Normal Saline Flush 0.9%) 10 ml IVP PRN PRN PRN Reason: NEEDED PER PROVIDER ORDERS Last Admin: 10/30/17 12:42 Dose: 10 ml Sodium Phosphate (K-Phos Neutral) 250 mg PO Q2H [facility] PRN Reason: Protocol Stop: 10/30/17 16:01 Last Admin: 10/30/17 14:34 Dose: 250 mg Tramadol HCl (Ultram) 50 mg PO Q6H PRN PRN Reason: MOD PAIN 5-7 Last Admin: 10/28/17 05:58 Dose: 50 mg Objective - Vital Signs/Intake & Output Reviewed Vital Signs: Yes Vital Signs: Vital Signs Temp Pulse Resp BP Pulse Ox 10/30/17 15:00 116 H 14 103/57 L 93 10/30/17 14:00 123 H 16 94/41 L 92 10/30/17 13:00 136 H 16 105/56 L 92 10/30/17 12:40 134 H 140/85 H 10/30/17 12:09 36.7 C 140 H 15 108/77 93 Intake & Output: Intake & Output 10/27/17 10/28/17 10/29/17 10/30/17 23:59 23:59 23:59 23:59 Intake Total 6570.833 6021.333 5263.834 2444.333 Output Total 6980 5450 4315 4505 Balance -409.167 571.333 948.834 -2060.667 - Objective General Appearance: positive: Alert (But continues to sleep most of the day. When I walk in her room she will wake up and answer questions appropriately. But goes right back to sleep.), Mild distress, Other (Middle-aged female who looks older than stated age. Sometimes lethargic alternating with alertness) Eyes Bilateral: positive: PERRL ENT: positive: Other (Most of her teeth gone, the few that remain have dental caries and gingivitis) Neck: positive: No JVD. negative: Stiff neck, Carotid bruit Respiratory: positive: Chest non-tender. negative: Wheezes, Rales, Rhonchi Cardiovascular: positive: Tachycardia - Lab Results Fish Bones: 10/30/17 10:25 10/30/17 10:25 Other Labs: Lab Results x24hrs 10/30/17 10/30/17 10/30/17 Range/Units 10:25 10:25 10:25 WBC 5.3 (4.8-10.8) x10^3/uL RBC 3.64 L (4.20-5.40) 10^6/uL Hgb 9.2 L (12.0-16.0) g/dL Hct 28.5 L (37.0-47.0) % MCV 78.5 L (81.0-99.0) fL MCH 25.2 L (27.0-31.0) pg MCHC 32.1 (32.0-36.0) g/dL RDW 16.4 H (12.0-15.0) % Plt Count 240 (130-450) 10^3/uL MPV 7.5 L (7.9-10.8) fL Neut # (Auto) 3.3 (1.5-6.6) 10^3/uL Lymph # (Auto) 1.6 (1.5-3.5) 10^3/uL Bent # (Auto) 0.3 (0.0-1.0) 10^3/uL Eos # (Auto) 0.0 (0.0-0.7) 10^3/uL Baso # (Auto) 0.0 (0.0-0.1) 10^3/uL Absolute Nucleated RBC 0.00 x10^3/uL Nucleated RBC % 0.0 /100WBC Sodium 132 L (135-145) mmol/L Potassium 3.4 L (3.5-5.0) mmol/L Chloride 94 L (101-111) mmol/L Carbon Dioxide 24 (21-32) mmol/L Anion Gap 14.0 H (6-13) BUN 16 (6-20) mg/dL Creatinine 0.7 (0.4-1.0) mg/dL Estimated GFR (MDRD) 95 (>89) Glucose 422 H (70-100) mg/dL Calcium 8.0 L (8.5-10.3) mg/dL Phosphorus 2.2 L (2.5-4.6) mg/dL Magnesium 1.7 (1.7-2.8) mg/dL Albumin 2.7 L (3.2-5.5) g/dL Serum Ketones (NEGATIVE) 10/29/17 10/29/17 Range/Units 21:25 15:15 WBC (4.8-10.8) x10^3/uL RBC (4.20-5.40) 10^6/uL Hgb (12.0-16.0) g/dL Hct (37.0-47.0) % MCV (81.0-99.0) fL MCH (27.0-31.0) pg MCHC (32.0-36.0) g/dL RDW (12.0-15.0) % Plt Count (130-450) 10^3/uL MPV (7.9-10.8) fL Neut # (Auto) (1.5-6.6) 10^3/uL Lymph # (Auto) (1.5-3.5) 10^3/uL Bent # (Auto) (0.0-1.0) 10^3/uL Eos # (Auto) (0.0-0.7) 10^3/uL Baso # (Auto) (0.0-0.1) 10^3/uL Absolute Nucleated RBC x10^3/uL Nucleated RBC % /100WBC Sodium (135-145) mmol/L Potassium (3.5-5.0) mmol/L Chloride (101-111) mmol/L Carbon Dioxide (21-32) mmol/L Anion Gap (6-13) BUN (6-20) mg/dL Creatinine (0.4-1.0) mg/dL Estimated GFR (MDRD) (>89) Glucose (70-100) mg/dL Calcium (8.5-10.3) mg/dL Phosphorus (2.5-4.6) mg/dL Magnesium (1.7-2.8) mg/dL Albumin (3.2-5.5) g/dL Serum Ketones SMALL H SMALL H (NEGATIVE) Assessment/Plan - Problem List (1) DKA, type 1 Impression: Her anion gap started on a 28 10/26 am, Over the course of 10/26 insulin drip, IV fluids, electrolyte supplementation, anion gap was 8 by 10/27 morning. She was transitioned off the insulin drip and started on 70 units of Lantus. A1c is 11.5%. I increased fixed dose insulin coverage before meals to 10 units on 10/27 and she needs sometimes a total of 26-30 units before meals and continue sliding scale with Lantus 70 units.She still has small ketones in her urine so ketosis is not completely resolved. She continued this pattern into 10/28. Since this is not the norm for her, I suspected she may have another underlying process. Troponin neg so no VT. She does not have a fever and a WBC that was 17K is now nml without abx. No lung finding of pneumonia. No UTI. Foot not infected. She continues to complain of abd pain and food intake is low for her. CT of abd. Results's show the same hazy inflammation that she has had in previous CTs. She is felt to have mild chronic pancreatitis. She has been seen by specialist and nothing to do for that. The only thing I can find is her horrible dentition, and the scabs. As such have added Rocephin 10/29 and she is improved over the course of the day. The Rocephin is a complete guess on my part with regards to dental treatment as well as skin treatment. So I am empirically covering for cellulitis. The drip was stopped yesterday By covering hospitalist. . She has been transitioned to Lantus and short acting NovoLog. I initially started 10 units of correction insulin plus sliding scale before meals. I am not increasing it to 15 units plus sliding scale. Current anion gap is widening again. His 14 this morning. We continue to monitor electrolytes and replace calcium magnesium phosphorus and potassium. Day #2 rocephin Qualifiers: Diabetes mellitus complication detail: without coma Qualified Code(s): E10.10 - Type 1 diabetes mellitus with ketoacidosis without coma (2) Electrolyte imbalance Impression: She had hypokalemia, hypocalcemia, with magnesium normal and phosphorus low on admission. All of this is was nml. Today low Phos and Low K. She is on the electrolyte replacement protocol in the ICU with appropriate supplementation. That will continue to be monitored and continue to be supplemented. (3) Dehydration Impression: She had quite dry oral mucosa on physical exam, BUN and creatinine were 22 and 0.7. 10/27 she is 20 and 0.5. and 10/28 she was 13/0.6. Continues to be nml today. Although she had improved, her tachycardia continued with mild to dry oral mucosa 10/27 and I felt that it showed that she is still behind in her fluid status. Changed from D5 to normal saline. That continues. (4) HANSA (acute kidney injury) Impression: Resolved with normalization of BUN and creatinine after aggressive IV hydration. (5) PVD (peripheral vascular disease) Impression: She has had a few amputations of her toes, continues to have black to brown crusted toe on the 3rd left. No evidence of infection at this time with redness , heat, purulent drainage not visible. (6) Methamphetamine abuse Impression: Urine tox screen positive on admission. Some of her symptoms of lethargy and tachycardia could be from withdrawal. Continue to monitor and treat symptomatically. (7) Hypertension Impression: I have changed her medicines from po to partial IV since she is having emesis. We continue Lopressor as needed for tachycardia. At times her systolic continues to be elevated. I added clonidine patch as well. Today systolic 108- 138. For the last 3 hours she has been low. Parameters for holding meds already done. Continue to monitor. stop clonidine for now. Qualifiers: Hypertension type: essential hypertension Qualified Code(s): I10 - Essential (primary) hypertension (8) Tachycardia Impression: Felicitas says that she has had tachycardia since the time she lived in [place]. She is always use beta-blockers as needed. We will continue here. (9) Chronic anemia. Felicitas rarely has a normal hemoglobin. Maybe once a year she will have a hemoglobin of 12 or 13. For the most part her hemoglobin ranges between 9 g up to 11 g. With this admission she has drifted down from 12 g. I taken to consideration that she was hemoconcentrated when she came in with severe dehydration. I expect her hemoglobin to start drifting down. But in view of her abdominal pain will want to make sure we watch that carefully for such things as ulcers or gastritis. She is complaining of dyspepsia and I will give her Protonix and Tums. Again, CT of abd ordered and as above.
[2017-10-30] MEDS: IBUPROFEN 600 MG TABLET PO PRN (16:50)
[2017-10-30] MEDS: AMITRIPTYLINE 25 MG TABLET PO SCH (21:24)
[2017-10-30] MEDS: INSULIN GLARGINE 300 UNIT/3 ML PEN SUBQ SCH (21:24)
[2017-10-31] MEDS: ENALAPRILAT 1.25 MG/ML VIAL IVP SCH ×3 (00:34→11:56)
[2017-10-31] MEDS: SODIUM CHLORIDE FLUSH 0.9% 10 ML SYRINGE IVP SCH ×2 (00:35→08:30)
[2017-10-31] MEDS: SODIUM CHLORIDE FLUSH 0.9% 10 ML SYRINGE IVP PRN ×2 (00:43→05:14)
[2017-10-31] MEDS: oxyCODONE 5 MG TABLET PO PRN ×2 (00:50→05:14)
[2017-10-31 06:12] LABS: CALCIUM 8.2 mg/dL (8.5-10.3); CREATININE 0.4 mg/dL (0.4-1.0)
[2017-10-31] MEDS: GABAPENTIN 300 MG CAPSULE PO SCH ×2 (06:28→13:55)
[2017-10-31] MEDS: METOCLOPRAMIDE 10 MG TABLET PO SCH ×2 (06:28→11:55)
[2017-10-31] MEDS: PANTOPRAZOLE 40 MG TABLET PO SCH (06:28)
[2017-10-31] MEDS: INSULIN ASPART 300 UNIT/3 ML PEN SUBQ SCH ×2 (08:25→12:05)
[2017-10-31] MEDS: ASPIRIN EC 81 MG TABLET PO SCH (08:29)
[2017-10-31] MEDS: CILOSTAZOL 100 MG TABLET PO SCH (08:29)
[2017-10-31] MEDS: CALCIUM CARBONATE CHEW 500 MG TABLET PO SCH (08:29)
[2017-10-31] MEDS: OXYBUTYNIN 5MG TABLET PO SCH (08:29)
[2017-10-31] MEDS: SENNA 8.6 MG TABLET PO SCH (08:29)
[2017-10-31] MEDS: DULoxetine 20 MG CAPSULE PO SCH (08:29)
[2017-10-31] MEDS: NICOTINE 7 MG PATCH TOP SCH (08:30)
[2017-10-31] MEDS: POLYETHYLENE GLYCOL 3350 17 GM PACKET PO SCH (08:30)
[2017-10-31] MEDS: DOCUSATE SODIUM 250 MG CAPSULE PO SCH (08:30)
[2017-10-31] MEDS: cefTRIAXone 2 GM in SODIUM CHLORIDE 0.9% MINIBAG 100 ML IV SCH (08:36)
[2017-10-31] MEDS: NYSTATIN CREAM 15 GM TUBE TOP SCH (08:36)
[2017-10-31] MEDS: ACETAMINOPHEN 325 MG TABLET PO PRN (08:59)
[2017-10-31] MEDS: IBUPROFEN 600 MG TABLET PO PRN (08:59)
--- NOTE | 2017-10-31 13:11 | Discharge Plan ---
Discharge Plan Disposition: 01 Home, Self Care Condition: Stable Prescriptions: Ibuprofen [Motrin] 600 mg PO Q6HR PRN #60 tablet PRN Reason: Pain 1 to 4 Amitriptyline [Elavil] 25 mg PO HS #20 tablet Blood Sugar Diagnostic [Glucose Test Strip] 1 each [facility] #120 strip Cilostazol [Pletal] 100 mg PO BID #60 tablet cloNIDine [Catapres] 0.1 mg PO BID #60 tablet diltiaZEM CD [Cardizem Cd] 120 mg PO DAILY #30 capsule DULoxetine [Cymbalta] 60 mg PO DAILY #30 capsule Gabapentin [Neurontin] 900 mg PO TID #90 capsule Insulin Aspart [NovoLOG] 15 unit SUBQ TIDWM #3 pen Insulin Aspart [NovoLOG] 3 - 11 unit SUBQ 0800,1200,1700,2100 #3 pen Insulin Glargine [Lantus Solostar] 70 unit SUBQ QPM #3 pen Metoclopramide [Reglan] 10 mg PO ACHS #60 tablet Metoprolol Succinate [Toprol Xl] 25 mg PO BID #60 tablet Gunlock, Disposable [Easy Touch Hypodermic Needle] 1 each ACHS #120 dis.needle Nystatin Cream [Mycostatin Cream] 15 gm TOP BID #1 tube Sulfamethoxazole/Trimethoprim [Sulfamethoxazole-Tmp Ds Tablet] 1 each PO BID # 14 tablet traMADol [Ultram] 50 mg PO Q6H PRN #10 tablet PRN Reason: MOD PAIN 5-7 Diet: Diabetic Activity Restrictions: Activity as Tolerated Shower Restrictions: No Driving Restrictions: No Additional Instructions or Follow Up instructions: You were admitted to the hospital because of diabetic ketoacidosis. You were placed in the intensive care unit and given aggressive hydration with salt water in your veins. You also were treated with an insulin drip. You were then transitioned to usual Lantus and short-acting insulin before meals. During the stay you had evidence of skin infection and was treated with an IV antibiotic for skin and soft tissue infection. You are being sent home on Bactrim to complete that therapy. You have asked for refills of all of your medications. Those been provided to you. Please try to establish yourself with a primary care provider so that you receive continuity of care and prescriptions while you are homeless. No Smoking: If you smoke, Please STOP! Call for help.
[2017-10-31] MEDS ORDERED: PETROLATUM WHITE 5 GM PACKET TOP PRN (15:43)
[2017-10-31 16:10] VITALS: BP 126/77
--- NOTE | 2017-11-01 04:37 | DISCHARGE SUMMARY ---
Physician: Jillian Sandhu MD DATE OF ADMISSION: 10/26/2017 DATE OF DISCHARGE: 10/31/2017 PRIMARY CARE PROVIDER: None DISCHARGE DIAGNOSES 1. Diabetic ketoacidosis type 1. 2. Uncontrolled type 1 diabetes mellitus with hyperglycemia, with long-term current use of insulin. 3. Impetigo, unspecified. 4. Electrolyte imbalance. 5. Dehydration. 6. Essential primary hypertension. 7. Methamphetamine abuse. 8. Noncompliance with medical regimen and diabetes treatment. DISCHARGE MEDICATIONS 1. Ibuprofen 600 mg p.o. q.6 hours p.r.n. pain. 2. Elavil 25 mg p.o. at bedtime. 3. Aspirin 81 mg p.o. daily. 4. Glucometer strips. 5. Pletal 100 mg p.o. b.i.d. 6. Clonidine 0.1 mg p.o. b.i.d. 7. Cardizem CD 120 mg p.o. daily. 8. Cymbalta 60 mg p.o. daily. 9. Gabapentin 900 mg p.o. t.i.d. 10. Reglan 10 mg p.o. before meals and at bedtime. 11. Toprol-XL 25 mg p.o. b.i.d. 12. Nystatin cream topically b.i.d. 13. Bactrim double strength p.o. b.i.d., #14. 14. Tramadol 50 mg p.o. q.6 hours p.r.n. pain. 15. Lantus 70 units subcutaneous q.p.m. 16. Sliding scale NovoLog pen a.c. t.i.d. with meals. PRINCIPAL PROCEDURES 1. Chest x-ray, showing no infiltrates. 2. Central line placement, right IJ. 3. Abdomen and pelvis CT, showing mild bilateral hydronephrosis. Heavy edema, inflammation within t he upper abdominal mesentery adjacent to small bowel. Distended urinary bladder. HOSPITAL COURSE: Patient is well known to our service. She is homeless individual who presents with multiple episodes of DKA over the course of the close to 4 years she has lived on [facility]. S he was thrown out of her father's house somewhere around February 2015 and has been homeless since the n. Her admissions for 2018 alone have been 03/14/2017, 03/30/2017, 05/21/2017, 08/13/2017, 09/27/2017. With each episode of care, the patient is discharged with her medications for diabetes, depression, a nd blood pressure. She has chronic tachycardia, and gets diltiazem and a beta tianna for that. Wit h each visit, she is asked to please refrain from substance abuse. Her main substance she abuses is amphetamines. Social Service has spent quite a bit of time trying to find a primary care provider for this patient. We have also had attempts at placing her in a skilled nursing. The skilled nursing states that she has behavioral issues that make it difficult for her to live there. [facility] herself [facility] too high. Patient has managed to win the pie-eating contest at the [facility] in [place] 2-3 years in a row no w. She had a great time at the most recent [employer], where she won the pie-eating contest again. She states that she ran out of her medications 3 days ago. Now presents with altered mental status, confusion, moaning in pain. She is in DKA again. A central line was started and she was placed in the ICU, where an insulin drip began. With this stay, it was unusual in that she took quite a while to bounce back. Usually, seble ent gets put on a drip and, within a matter of hours, is able to be awake and alert enough to be eati ng and transitioned to sliding scale insulin, fixed nutritional dose insulin, and Lantus. With this episode, for 3 days, she was miserable, quiet, not eating, stating that she just felt horrible all ov er. She complained bitterly of the impetigo-like lesions that were on her scalp, face, jawline, arm, legs. They were all tender but there was no fever, no chills. In an effort to make sure that we were not missing a diagnosis, a CT of the abdomen was done and was negative, other than for the hazy edematous changes near the small bowel at the head of the pancreas. This is a chronic finding for her. She is felt to have mild chronic inflammatory changes of her pa ncreas there. Urine tox screen was positive for methamphetamines. On the day before discharge, when she was transitioned from the ICU to the med/surg unit, 2 syringes were found in her bed filled with orange, clear liquid. She states that that is her insulin that she gives herself. I did remind her that insulin is clear. She states that she is not injecting herself with anything. The only thing we can think of, because she has had no visitors, is that she may be taking her orange oxycodone tabl ets for pain, crushing them, using tap water and then injecting herself. She has been known to do th at in the past with previous admissions. I asked her to please not do that anymore. I explained to her that injecting herself with dirty tap water, much less the oxycodone, can result in immediate sed ation, possible respiratory sedation to , but more than anything infection. She could get sever e endocarditis. She stoutly maintained that is not what she was doing. She had been placed on empiric Ancef therapy. We could not figure out what else could be causing her sedation, possible infection and delay in recovery from DKA. She responded to that over 48 hours. As such, we will be empirically sending her home with Bactrim, treating the impetigo-like lesions ricky t she has on her scalp and body that we do not know the source of. PHYSICAL EXAMINATION VITAL SIGNS: On discharge, temperature is 37.2, pulse is 100, blood pressure 126/77, respirations 19 and unlabored, 96% on room air. She has now eaten all of her food 100% for the last 24 hours. Prio r to that, she was eating maybe 25% or 40%. She is alert, oriented. Very angry at having to be conf ronted about the syringes in her bed. NECK: Supple, without goiter. LUNGS: Clear to auscultation and percussion. PMI is normally placed with a tachycardic regular rate and rhythm. ABDOMEN: Mild, generalized tenderness with normal bowel sounds. No rebound or guarding. ASSESSMENT AND PLAN: The impetigo-like lesions of her scalp, jawline, arms and face have almost comp letely faded. There are still a few on her scalp that are still a little bit tender. I strongly enc ouraged her to finish her Bactrim. All of her medicines were refilled. Greater than 30 minutes was spent in coordinating discharge. She does not have a primary care provider. Training And Development Coordinator has again given her a list of providers i [facility] that are taking new patients. TD: 10/31/2017 16:57
== END 2017-10-31 17:05 | disposition home or self-care (01) | DRG 638 ==
LOC: EDUNIT# → ED 07:23 → ICU 10:19 → MS3 10-30 21:59
PROVIDERS: ADMIT Specialist; ATTEND Specialist
PROC: 02HV33Z Insertion of Infusion Device into Superior Vena Cava, Percutaneous Approach (ICD-10-PCS; principal; 2017-10-26)
DX: E10.10 Type 1 diabetes mellitus with ketoacidosis without coma (principal); E10.52 Type 1 diabetes mellitus with diabetic peripheral angiopathy with gangrene; I96 Gangrene, not elsewhere classified; E87.1 Hypo-osmolality and hyponatremia; N17.9 Acute kidney failure, unspecified; N13.30 Unspecified hydronephrosis; K86.1 Other chronic pancreatitis; T38.3X6A Underdosing of insulin and oral hypoglycemic [antidiabetic] drugs, initial encounter; T68.XXXA Hypothermia, initial encounter; E86.0 Dehydration; E87.6 Hypokalemia; E83.51 Hypocalcemia; L01.00 Impetigo, unspecified; R10.84 Generalized abdominal pain; D64.9 Anemia, unspecified; N32.89 Other specified disorders of bladder; K05.10 Chronic gingivitis, plaque induced; K02.9 Dental caries, unspecified; R00.0 Tachycardia, unspecified; I10 Essential (primary) hypertension; F15.10 Other stimulant abuse, uncomplicated; F41.0 Panic disorder [episodic paroxysmal anxiety]; F60.9 Personality disorder, unspecified; F32.9 Major depressive disorder, single episode, unspecified; M79.7 Fibromyalgia; F17.200 Nicotine dependence, unspecified, uncomplicated; E78.5 Hyperlipidemia, unspecified; K08.409 Partial loss of teeth, unspecified cause, unspecified class; I25.2 Old myocardial infarction; Z90.49 Acquired absence of other specified parts of digestive tract; Z59.0 Homelessness; Z87.19 Personal history of other diseases of the digestive system; Z89.429 Acquired absence of other toe(s), unspecified side
CPT/HCPCS: 36415; 36556; 71045; 74176; 80048; 80053; 80306; 81001; 81003; 81025; 82009; 82040; 82330; 82803; 82947; 83036; 83690; 83735; 84100; 84484; 85025; 87086; 87150; 96361; 96372; 96374; 99284; 99285

== ENCOUNTER 2017-11-10 10:09 | Outpatient (CLI) | payer MEDICAID | END 2017-11-10 10:10 | disposition critical access hospital (66) | LOC: EMS 10:09 | PROVIDERS: ATTEND Surgery | DX: M25.562 Pain in left knee (principal); V18.4XXA Pedal cycle driver injured in noncollision transport accident in traffic accident, initial encounter; Y93.55 Activity, bike riding; Y92.414 Local residential or business street as the place of occurrence of the external cause | CPT/HCPCS: A0425; A0429; A0999 ==

== ENCOUNTER 2017-11-10 10:29 | Observation (INO) | payer MEDICAID ==
[2017-11-10] MEDS ORDERED: SODIUM CHLORIDE 0.9% 2,000 ML IV ONE (12:33)
[2017-11-10] MEDS ORDERED: INSULIN REGULAR HUMAN 100 UNIT/1 ML 10 ML MDV IVP STA (12:33)
[2017-11-10] MEDS ORDERED: INSULIN REGULAR HUMAN 100 UNIT/1 ML 10 ML MDV SUBQ STA ×2 (12:40→13:49)
[2017-11-10] MEDS ORDERED: ACETAMINOPHEN 500 MG TABLET PO STA (14:24)
[2017-11-10 14:28] LABS: ALBUMIN 4.2 g/dL (3.2-5.5); ALBUMIN/GLOBULIN RATIO 1.2 (1.0-2.2); ALKALINE PHOSPHATASE 130 IU/L (42-121); ALT ALANINE AMINOTRANSFERASE 32 IU/L (10-60); AST ASPARTATE AMINOTRANSFERASE 31 IU/L (10-42); BILIRUBIN,TOTAL 1.7 mg/dL (0.2-1.0); BUN - BLOOD UREA NITROGEN 19 mg/dL (6-20); CALCIUM 8.6 mg/dL (8.5-10.3); CHLORIDE 96 mmol/L (101-111); CREATININE 0.7 mg/dL (0.4-1.0); GFR - MDRD 95 (>89); LIPASE 16 U/L (22-51); SODIUM 132 mmol/L (135-145); TOTAL PROTEIN 7.7 g/dL (6.7-8.2)
[2017-11-10 14:29] LABS: CARBON DIOXIDE - CO2 11 mmol/L (21-32)
[2017-11-10 14:30] LABS: GLUCOSE 505 mg/dL (70-100)
[2017-11-10 14:34] LABS: KETONES, SERUM (ACETEST) MODERATE (NEGATIVE)
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
[2017-11-10] MEDS ORDERED: BUFFERED LIDOCAINE 10 ML SYRINGE ONE (15:06)
[2017-11-10 16:15] LABS: BASOPHILS # (AUTO) 0.1 10^3/uL (0.0-0.1); BASOPHILS % (AUTO) 1.3 %; EOSINOPHILS % (AUTO) 0.3 %; LYMPHOCYTES # (AUTO) 1.7 10^3/uL (1.5-3.5); LYMPHOCYTES % (AUTO) 14.8 %; MEAN CORPUSCULAR HGB CONC 30.9 g/dL (32.0-36.0); MONOCYTES # (AUTO) 0.2 10^3/uL (0.0-1.0); MONOCYTES % (AUTO) 2.1 %; NEUTROPHILS # (AUTO) 9.6 10^3/uL (1.5-6.6); NEUTROPHILS % (AUTO) 81.5 %; RED CELL DISTRIBUTION WIDTH 16.4 % (12.0-15.0); WHITE BLOOD COUNT 11.7 x10^3/uL (4.8-10.8)
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
--- NOTE | 2017-11-10 16:41 | XRAY Report ---
Reason: fall Procedure Date: 11/10/2017 Accession Number: [id number] / [id number] Procedure: XR - Chest 2 View X-Ray CPT Code: 35105 FULL RESULT: EXAM: CHEST RADIOGRAPHY EXAM DATE: 11/10/2017 04:20 PM. CLINICAL HISTORY: Fall. Pain. COMPARISON: CHEST FOR LINE PLACEMENT 10/26/2017 9:11 AM CHEST 1 VIEW 07/03/2017 11:10 AM. TECHNIQUE: 2 views. FINDINGS: Lungs/Pleura: No focal opacities evident. No pleural effusion. No pneumothorax. Normal volumes. Mediastinum: Heart and mediastinal contours are unremarkable. Other: Interval removal of the right jugular line. Stable mild separation right AC joint. IMPRESSION: Normal 2-view chest radiography. RADIA
[2017-11-10] MEDS ORDERED: INSULIN REGULAR HUMAN 100 UNIT in SODIUM CHLORIDE 0.9% 100ML 99 ML IV STA (16:44)
--- NOTE | 2017-11-10 17:20 | ANESTHESIA PROCEDURE NOTE ---
Anesth Central Line Template - Central Line Central Line Preparation: Time out completed, Ultrasound used, Sterile prep and drape Central line location: Right IJ Central line type: Triple lumen Central line aftercare: Secured, Placement confirmed, No pneumothorax, No complications, Bundle checklist complete (Called to ED after difficulty with femoral line placement. Pt with extensive history of difficult IV and CVL placements.), Pt tolerated well
--- NOTE | 2017-11-10 18:19 | XRAY Report ---
Reason: s/p central line Procedure Date: 11/10/2017 Accession Number: [id number] / [id number] Procedure: XR - Chest 1 View X-Ray CPT Code: 33901 FULL RESULT: EXAM: CHEST RADIOGRAPHY EXAM DATE: 11/10/2017 05:58 PM. CLINICAL HISTORY: S/p central line. COMPARISON: CHEST 2 VIEW 11/10/2017 3:52 PM. TECHNIQUE: 1 view. FINDINGS: Lungs/Pleura: No focal opacities evident. No pleural effusion. No pneumothorax. Mediastinum: Within exam limitations, the cardiomediastinal contour is normal. Other: None. IMPRESSION: 1. Right IJ line tip projects over the cavoatrial junction. 2. No acute intrathoracic plain film abnormality. RADIA
[2017-11-10] MEDS: SODIUM CHLORIDE 0.9% 1,000 ML IV SCH ×2 (18:29→21:52)
[2017-11-10] MEDS ORDERED: ACETAMINOPHEN 325 MG TABLET PO PRN (19:30)
[2017-11-10] MEDS ORDERED: PROCHLORPERAZINE 10 MG/2 ML VIAL IVP PRN (19:30)
[2017-11-10] MEDS ORDERED: ONDANSETRON 4 MG/2 ML VIAL IVP PRN (19:30)
[2017-11-10] MEDS ORDERED: ONDANSETRON ODT 4 MG TABLET TL PRN (19:30)
[2017-11-10] MEDS ORDERED: SODIUM CHLORIDE FLUSH 0.9% 10 ML SYRINGE IVP PRN (19:30)
[2017-11-10] MEDS ORDERED: D5.45NS W/20 MEQ KCL 1,000 ML IV STA (19:58)
[2017-11-10] MEDS ORDERED: INSULIN REGULAR HUMAN 100 UNIT in SODIUM CHLORIDE 0.9% 100ML 99 ML IV SCH (20:00)
[2017-11-10] MEDS ORDERED: NS W/20 MEQ KCL 1,000 ML IV SCH (20:00)
[2017-11-10] MEDS: SODIUM CHLORIDE FLUSH 0.9% 10 ML SYRINGE IVP SCH (20:31)
[2017-11-10 20:41] LABS: KETONES, SERUM (ACETEST) SMALL (NEGATIVE)
[2017-11-10 20:42] LABS: VBG BASE EXCESS -3.3 mmol/L (-2 - +2); VBG PCO2 36.8 mmHg (41-51); VBG PH 7.381 (7.31-7.41); VBG PO2 82.7 mmHg (25-47); VBG TOTAL CO2 22.5 mmol/L (24-29)
[2017-11-10 20:44] LABS: BUN - BLOOD UREA NITROGEN 19 mg/dL (6-20); CALCIUM 8.1 mg/dL (8.5-10.3); CARBON DIOXIDE - CO2 21 mmol/L (21-32); CHLORIDE 99 mmol/L (101-111); CREATININE 0.6 mg/dL (0.4-1.0); GFR - MDRD 113 (>89); GLUCOSE 165 mg/dL (70-100); MAGNESIUM 1.7 mg/dL (1.7-2.8); SODIUM 132 mmol/L (135-145)
[2017-11-10] MEDS: INSULIN ASPART 300 UNIT/3 ML PEN SUBQ SCH ×2 (20:49→20:50)
[2017-11-10] MEDS: traMADol 50 MG TABLET PO PRN (20:52)
[2017-11-10] MEDS: CILOSTAZOL 100 MG TABLET PO SCH (20:53)
[2017-11-10] MEDS: METOPROLOL SUCCINATE 25 MG TABLET PO SCH (20:53)
[2017-11-10] MEDS: cloNIDine 0.1 MG TABLET PO SCH (20:53)
[2017-11-10 21:00] LABS: HB2 TOTAL 10.2 g/dL; HEMOGLOBIN A1C 1.1 g/dL
[2017-11-10] MEDS ORDERED: INSULIN GLARGINE 300 UNIT/3 ML PEN SUBQ SCH (21:00)
[2017-11-10] MEDS ORDERED: AMITRIPTYLINE 25 MG TABLET PO SCH (21:00)
[2017-11-10] MEDS: IBUPROFEN 600 MG TABLET PO PRN (21:31)
[2017-11-10] MEDS: GABAPENTIN 300 MG CAPSULE PO SCH (21:32)
[2017-11-10] MEDS ORDERED: NS W/20 MEQ KCL 1,000 ML IV STA (22:53)
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
[2017-11-11] MEDS: IBUPROFEN 600 MG TABLET PO PRN (04:53)
[2017-11-11 05:28] LABS: BASOPHILS % (AUTO) 0.5 %; EOSINOPHILS # (AUTO) 0.2 10^3/uL (0.0-0.7); EOSINOPHILS % (AUTO) 2.1 %; HGB - HEMOGLOBIN 9.4 g/dL (12.0-16.0); LYMPHOCYTES % (AUTO) 41.7 %; MEAN CORPUSCULAR HEMOGLOBIN 24.4 pg (27.0-31.0); MEAN CORPUSCULAR HGB CONC 31.3 g/dL (32.0-36.0); MEAN CORPUSCULAR VOLUME 78.1 fL (81.0-99.0); MEAN PLATELET VOLUME 7.3 fL (7.9-10.8); MONOCYTES # (AUTO) 0.4 10^3/uL (0.0-1.0); MONOCYTES % (AUTO) 5.9 %; NEUTROPHILS # (AUTO) 3.6 10^3/uL (1.5-6.6); NEUTROPHILS % (AUTO) 49.8 %; PLT - PLATELET COUNT 502 10^3/uL (130-450); RED BLOOD COUNT 3.83 10^6/uL (4.20-5.40); RED CELL DISTRIBUTION WIDTH 16.1 % (12.0-15.0); WHITE BLOOD COUNT 7.2 x10^3/uL (4.8-10.8)
[2017-11-11] MEDS: GABAPENTIN 300 MG CAPSULE PO SCH ×2 (05:54→14:09)
[2017-11-11 06:15] LABS: ALBUMIN 3.1 g/dL (3.2-5.5); ALBUMIN/GLOBULIN RATIO 1.1 (1.0-2.2); BILIRUBIN,TOTAL 0.4 mg/dL (0.2-1.0); CALCIUM 7.8 mg/dL (8.5-10.3); CREATININE 0.4 mg/dL (0.4-1.0)
[2017-11-11] MEDS: SODIUM CHLORIDE FLUSH 0.9% 10 ML SYRINGE IVP SCH ×2 (06:23→09:03)
[2017-11-11] MEDS ORDERED: POTASSIUM CHLORIDE 20 MEQ TABLET PO ONE ×2 (06:40→08:38)
[2017-11-11 07:13] LABS: MUDS CUTOFF CONCENTRATIONS CUTOFF CONC BELOW:
[2017-11-11 07:16] LABS: GLUCOSE, URINE (UA) 500 mg/dL (NEGATIVE); KETONES,URINE (UA) 40 mg/dL (NEGATIVE); LEUKOCYTE ESTERASE, URINE NEGATIVE (NEGATIVE); NITRITE,URINE NEGATIVE (NEGATIVE); OCCULT BLOOD,URINE NEGATIVE (NEGATIVE); PROTEIN,URINE NEGATIVE (NEGATIVE); UROBILINOGEN,URINE 0.2 (NORMAL) E.U./dL (NORMAL)
[2017-11-11 07:29] LABS: CLARITY,URINE CLEAR (CLEAR)
[2017-11-11 07:30] LABS: BILIRUBIN,URINE NEGATIVE (NEGATIVE); ICTOTEST,URINE NEGATIVE
[2017-11-11 07:38] LABS: AMPHETAMINE SCREEN,URINE POSITIVE (NEGATIVE); BENZODIAZEPINES SCREEN, URINE NEGATIVE (NEGATIVE); COCAINE SCREEN URINE NEGATIVE (NEGATIVE); METHADONE SCREEN, URINE NEGATIVE (NEGATIVE); METHAMPHETAMINES SCREEN, URINE POSITIVE (NEGATIVE); OPIATE SCREEN, URINE POSITIVE (NEGATIVE); OXYCODONE SCREEN, URINE NEGATIVE (NEGATIVE); PROPOXYPHENE SCREEN, URINE NEGATIVE (NEGATIVE); TRICYCLIC ANTIDEPRESSANT,URINE POSITIVE (NEGATIVE)
[2017-11-11 07:55] VITALS: BP 147/91
[2017-11-11] MEDS ORDERED: INSULIN GLARGINE 300 UNIT/3 ML PEN SUBQ SCH (08:00)
[2017-11-11] MEDS: CILOSTAZOL 100 MG TABLET PO SCH (08:33)
[2017-11-11] MEDS: METOPROLOL SUCCINATE 25 MG TABLET PO SCH (08:34)
[2017-11-11] MEDS: cloNIDine 0.1 MG TABLET PO SCH (08:34)
[2017-11-11] MEDS: INSULIN ASPART 300 UNIT/3 ML PEN SUBQ SCH ×4 (08:43→12:18)
[2017-11-11] MEDS ORDERED: DULoxetine 20 MG CAPSULE PO SCH (09:00)
[2017-11-11] MEDS ORDERED: POLYETHYLENE GLYCOL 3350 17 GM PACKET PO SCH (09:00)
[2017-11-11] MEDS ORDERED: diltiaZEM CD 120 MG CAPSULE PO SCH (09:00)
[2017-11-11] MEDS: traMADol 50 MG TABLET PO PRN (11:11)
--- NOTE | 2017-11-11 11:35 | Discharge Plan ---
Discharge Plan Disposition: Home, Self Care Condition: Poor Prescriptions: Cephalexin [Keflex] 500 mg PO BID #14 capsule Gabapentin [Neurontin] 900 mg PO TID #90 capsule Insulin Glargine [Lantus Solostar] 70 unit SUBQ QPM #3 pen Planada, Disposable [Easy Touch Hypodermic Needle] 1 each [facility] #120 dis.needle Diet: Diabetic Activity Restrictions: Activity as Tolerated Shower Restrictions: No (fall precaution) Instruction Topics: Diabetic Ketoacidosis Additional Instructions or Follow Up instructions: you may follow up your PCP in one week. Should your symptoms return or worsen, you may present ER or call 911 for help. No Smoking: If you smoke, Please STOP! Call for help.
--- NOTE | 2017-11-11 12:14 | DISCHARGE SUMMARY ---
Discharge Summary Discharge Date: 11/11/17 Discharging Provider: DIGGS Condition at Discharge: Poor Discharge Disposition: 01 Home, Self Care Discharge Facility Name: home - DIAGNOSES Admission Diagnoses: Diabetic ketoacidosis medical non-compliant HTN Methamphetamine abuse Discharge Diagnoses with Status of Each Condition: 1, Diabetic ketoacidosis pt's glucose is 85, anion gap is normal, pt ate all her breakfast meat, refill of pt's Lantus, and Gabapentin 2, medical non-compliant advise pt medical compliant 3, HTN stable, follow up home regimen 4, Methamphetamine abuse advise pt quit illicit drug 5, small right toe cellulitis small cellulitis at third toe of right lower extremity, prescribe Keflex for pt - HPI History of Present Illness: pt was admitted for fell. All images study reveals no acute injury. Lab test show pt has over 500 glucose and moderate ketones. After given insulin and IVF of NS, pt feel much better. Her anion gap became normal, she eat all breakfast, her glucose is 85. pt feel great. - ALLERGIES Allergies/Adverse Reactions: Allergies Allergy/AdvReac Type Severity Reaction Status Date / Time codeine Allergy Hives Verified 11/10/17 10:40 hydrocodone Allergy Hives Verified 11/10/17 10:40 morphine Allergy Itching Verified 11/10/17 10:40 milk AdvReac Cramps Verified 11/10/17 10:40 nitrofurantoin AdvReac Headache Verified 11/10/17 10:40 [From Macrobid] PAPER TAPE AdvReac Unknown Uncoded 11/10/17 10:40 - MEDICATIONS Home Medications: Ambulatory Orders Medication Instructions Recorded Confirmed Aspirin [Aspirin EC] 81 mg PO DAILY #30 tablet. 08/30/17 11/10/17 Oxybutynin [Ditropan] 5 mg PO BID #60 tablet 08/30/17 11/10/17 Blood-Glucose Meter [Glucometer] 1 each ACHS #1 each 09/29/17 11/10/17 Amitriptyline [Elavil] 25 mg PO HS #20 tablet 10/31/17 11/10/17 Blood Sugar Diagnostic [Glucose 1 each [facility] #120 strip 10/31/17 11/10/17 Test Strip] Cilostazol [Pletal] 100 mg PO BID #60 tablet 10/31/17 11/10/17 DULoxetine [Cymbalta] 60 mg PO DAILY #30 capsule 10/31/17 11/10/17 Ibuprofen [Motrin] 600 mg PO Q6HR PRN #60 tablet 10/31/17 11/10/17 Insulin Aspart [NovoLOG] 3 - 11 unit SUBQ 10/31/17 11/10/17 0800,1200,1700,2100 #3 pen Insulin Aspart [NovoLOG] 15 unit SUBQ TIDWM #3 pen 10/31/17 11/10/17 Metoclopramide [Reglan] 10 mg PO ACHS #60 tablet 10/31/17 11/10/17 Metoprolol Succinate [Toprol Xl] 25 mg PO BID #60 tablet 10/31/17 11/10/17 Nystatin Cream [Mycostatin Cream] 15 gm TOP BID #1 tube 10/31/17 11/10/17 cloNIDine [Catapres] 0.1 mg PO BID #60 tablet 10/31/17 11/10/17 diltiaZEM CD [Cardizem Cd] 120 mg PO DAILY #30 capsule 10/31/17 11/10/17 traMADol [Ultram] 50 mg PO Q6H PRN #10 tablet 10/31/17 11/10/17 Cephalexin [Keflex] 500 mg PO BID #14 capsule 11/11/17 Gabapentin [Neurontin] 900 mg PO TID #90 capsule 11/11/17 Insulin Glargine [Lantus Solostar] 70 unit SUBQ QPM #3 pen 11/11/17 [place], Disposable [Easy Touch 1 each [facility] #120 dis.needle 11/11/17 Hypodermic Needle] - PHYSICAL EXAM AT DISCHARGE General Appearance: positive: No acute distress, Alert. negative: Lethargic Eyes Bilateral: positive: Normal inspection, PERRL, No lid inflammation, Conjunctivae nml ENT: positive: ENT inspection nml, Pharynx nml, No signs of dehydration. negative: Purulent nasal drainage, Pharyngeal erythema, Oral lesions Neck: positive: Nml inspection, Thyroid nml, No JVD, Trachea midline. negative: Thyromegaly, Lymphadenopathy (R), Lymphadenopathy (L), Stiff neck, Swelling/bruising, Tracheal deviation Respiratory: positive: Chest non-tender, No respiratory distress, Breath sounds nml. negative: Wheezes, Rales, Rhonchi Cardiovascular: positive: Regular rate & rhythm, No murmur, No gallop, Tachycardia. negative: Irregularly irregular, Extrasystoles, Bradycardia, JVD present, Systolic murmur, Diastolic murmur Peripheral Pulses: positive: 2+ Abdomen: positive: Non-tender, No organomegaly, Nml bowel sounds, No distention. negative: Tenderness, Guarding, Rebound Back: positive: Nml inspection. negative: CVA tenderness (R), CVA tenderness (L) Skin: positive: Color nml, No rash, Warm, Dry. negative: Cyanosis, Diaphoresis, Pallor Extremities: positive: Non-tender, Full ROM, Nml appearance. negative: Calf tenderness, Joint swelling, Ru's sign/cords Neurologic/Psychiatric: positive: Oriented x3, Motor nml, Sensation nml. negative: Weakness, Sensory loss, Facial droop, Slurred/abnml speech - LABS Result Diagrams: 11/11/17 04:33 11/11/17 04:33 - FOLLOW UP Follow Up: you may follow up your PCP in one week. Should your symptoms return or worsen, you may present ER or call 911 for help. - TIME SPENT Time Spent in Discharge (Minutes): 45
== END 2017-11-11 14:15 | disposition home or self-care (01) ==
LOC: EDUNIT# → ED 10:29 → ICU 19:30 → INTOOBSV 19:30
PROVIDERS: ADMIT Specialist; ATTEND Nurse Practitioner Gerontology
DX: E10.10 Type 1 diabetes mellitus with ketoacidosis without coma (principal); Z79.4 Long term (current) use of insulin; T38.3X6A Underdosing of insulin and oral hypoglycemic [antidiabetic] drugs, initial encounter; I10 Essential (primary) hypertension; F15.10 Other stimulant abuse, uncomplicated; L03.031 Cellulitis of right toe; E10.42 Type 1 diabetes mellitus with diabetic polyneuropathy; S80.212A Abrasion, left knee, initial encounter; V19.9XXA Pedal cyclist (driver) (passenger) injured in unspecified traffic accident, initial encounter; M25.512 Pain in left shoulder; E78.5 Hyperlipidemia, unspecified; Z89.422 Acquired absence of other left toe(s); Z89.421 Acquired absence of other right toe(s); F41.0 Panic disorder [episodic paroxysmal anxiety]; F41.8 Other specified anxiety disorders; M79.7 Fibromyalgia; F11.10 Opioid abuse, uncomplicated; T68.XXXA Hypothermia, initial encounter; R00.0 Tachycardia, unspecified
CPT/HCPCS: 36415; 36556; 51701; 71045; 71046; 73030; 73562; 80048; 80053; 80306; 80320; 81003; 82009; 82803; 83036; 83690; 83735; 85025; 87150; 96360; 96361; 99284; A9270; G0378; J1815; 81001; 82947; 87086

== ENCOUNTER 2017-11-17 08:02 | Outpatient (CLI) | payer MEDICAID | END 2017-11-17 08:03 | disposition critical access hospital (66) | LOC: EMS 08:02 | PROVIDERS: ATTEND Surgery | DX: R46.4 Slowness and poor responsiveness (principal); R73.09 Other abnormal glucose | CPT/HCPCS: A0425; A0429; A0999 ==

== ENCOUNTER 2017-11-17 08:21 | Inpatient (IN) | payer MEDICAID ==
[2017-11-17] MEDS ORDERED: INSULIN REGULAR HUMAN 100 UNIT/1 ML 10 ML MDV IVP STA (08:41)
[2017-11-17] MEDS ORDERED: LORazepam 2 MG/ML VIAL IVP STA (08:41)
[2017-11-17] MEDS ORDERED: SODIUM CHLORIDE 0.9% 1,000 ML IV ONE ×2 (08:41→16:18)
[2017-11-17] MEDS ORDERED: INSULIN REGULAR HUMAN 100 UNIT in SODIUM CHLORIDE 0.9% 100ML 99 ML IV STA (08:41)
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
[2017-11-17 08:58] LABS: BASOPHILS # (AUTO) 0.1 10^3/uL (0.0-0.1); BASOPHILS % (AUTO) 0.7 %; HGB - HEMOGLOBIN 11.4 g/dL (12.0-16.0); LYMPHOCYTES # (AUTO) 2.4 10^3/uL (1.5-3.5); LYMPHOCYTES % (AUTO) 15.9 %; MEAN CORPUSCULAR HEMOGLOBIN 24.4 pg (27.0-31.0); MEAN CORPUSCULAR HGB CONC 25.6 g/dL (32.0-36.0); MEAN CORPUSCULAR VOLUME 95.5 fL (81.0-99.0); MONOCYTES # (AUTO) 0.9 10^3/uL (0.0-1.0); MONOCYTES % (AUTO) 5.9 %; NEUTROPHILS # (AUTO) 11.5 10^3/uL (1.5-6.6); NEUTROPHILS % (AUTO) 77.5 %; PLT - PLATELET COUNT 559 10^3/uL (130-450); RED BLOOD COUNT 4.65 10^6/uL (4.20-5.40); RED CELL DISTRIBUTION WIDTH 16.6 % (12.0-15.0)
[2017-11-17 09:12] LABS: MUDS CUTOFF CONCENTRATIONS CUTOFF CONC BELOW:
[2017-11-17 09:20] LABS: WHITE BLOOD COUNT 14.8 x10^3/uL (4.8-10.8)
--- NOTE | 2017-11-17 09:21 | XRAY Report ---
Reason: found down ams tachy Procedure Date: 11/17/2017 Accession Number: [id number] / [id number] Procedure: XR - Chest 1 View X-Ray CPT Code: 94348 FULL RESULT: EXAM: CHEST RADIOGRAPHY EXAM DATE: 11/17/2017 09:06 AM. CLINICAL HISTORY: Found down. Altered mental status, tachycardic. COMPARISON: Chest 1 view 11/10/2017 5:45 PM. TECHNIQUE: 1 view. FINDINGS: Portions of the patient are obscured by ECG leads. The exam is limited by AP portable technique. Within these limitations: Lungs/Pleura: No focal opacities evident. No pleural effusion. No pneumothorax. Mediastinum: Within exam limitations, the cardiomediastinal contour is normal. Other: None. IMPRESSION: No acute cardiopulmonary abnormality. RADIA
[2017-11-17 09:33] LABS: ALBUMIN 4.2 g/dL (3.2-5.5); ALBUMIN/GLOBULIN RATIO 1.1 (1.0-2.2); ALKALINE PHOSPHATASE 316 IU/L (42-121); ALT ALANINE AMINOTRANSFERASE 95 IU/L (10-60); AST ASPARTATE AMINOTRANSFERASE 38 IU/L (10-42); BILIRUBIN,TOTAL 2.4 mg/dL (0.2-1.0); BUN - BLOOD UREA NITROGEN 57 mg/dL (6-20); CALCIUM 9.1 mg/dL (8.5-10.3); CHLORIDE 81 mmol/L (101-111); CREATININE 2.3 mg/dL (0.4-1.0); GFR - MDRD 24 (>89); LIPASE 64 U/L (22-51)
[2017-11-17 09:35] LABS: BILIRUBIN,URINE NEGATIVE (NEGATIVE); GLUCOSE, URINE (UA) >=1000 mg/dL (NEGATIVE); KETONES,URINE (UA) 40 mg/dL (NEGATIVE); LEUKOCYTE ESTERASE, URINE NEGATIVE (NEGATIVE); NITRITE,URINE NEGATIVE (NEGATIVE); OCCULT BLOOD,URINE TRACE-INTA (NEGATIVE); PROTEIN,URINE NEGATIVE (NEGATIVE); UROBILINOGEN,URINE 0.2 (NORMAL) E.U./dL (NORMAL)
[2017-11-17 09:37] LABS: GLUCOSE 1406 mg/dL (70-100)
[2017-11-17 09:40] LABS: CLARITY,URINE CLEAR (CLEAR)
[2017-11-17 09:49] LABS: AMPHETAMINE SCREEN,URINE POSITIVE (NEGATIVE); BENZODIAZEPINES SCREEN, URINE NEGATIVE (NEGATIVE); COCAINE SCREEN URINE NEGATIVE (NEGATIVE); METHADONE SCREEN, URINE NEGATIVE (NEGATIVE); METHAMPHETAMINES SCREEN, URINE POSITIVE (NEGATIVE); OPIATE SCREEN, URINE NEGATIVE (NEGATIVE); OXYCODONE SCREEN, URINE NEGATIVE (NEGATIVE); PROPOXYPHENE SCREEN, URINE NEGATIVE (NEGATIVE); TRICYCLIC ANTIDEPRESSANT,URINE NEGATIVE (NEGATIVE)
--- NOTE | 2017-11-17 09:50 | CT Report ---
Reason: found down ams Procedure Date: 11/17/2017 Accession Number: [id number] / [id number] Procedure: CT - Cervical Spine W/O CPT Code: FULL RESULT: EXAM: CT CERVICAL SPINE WITHOUT CONTRAST DATE: 11/17/2017 09:17 AM. HISTORY: Found down ams. Altered mental status. COMPARISONS: CERVICAL SPINE W/O 08/13/2017 11:20 AM CERVICAL SPINE W/O 11/17/2017 9:19 AM. TECHNIQUE: Thin-section axial images were acquired of the cervical spine without contrast. Post-processing: Coronal and sagittal reformats. Other: None. In accordance with CT protocol optimization, one or more of the following dose reduction techniques were utilized for this exam: automated exposure control, adjustment of mA and/or KV based on patient size, or use of iterative reconstructive technique. FINDINGS: Alignment: Convex left rotatory scoliosis. Bones: No fracture or significant bone lesion. Probable posterior T3 vertebral body bone island, near left pedicle. Interspace Levels/Facets: C1-C2: Unremarkable. C2-C3: Unremarkable. C3-C4: Unremarkable. C4-C5: Unremarkable. C5-C6: Unremarkable. C6-C7: Unremarkable. C7-T1: Unremarkable. Musculature: Normal. No fatty atrophy. Other: The paravertebral and prevertebral soft tissues are unremarkable. The lung apices are clear. IMPRESSION: 1. Convex left cervical rotatory scoliosis. 2. No acute fracture evident. RADIA
[2017-11-17 09:55] LABS: HCG UR QUAL NEGATIVE
--- NOTE | 2017-11-17 09:58 | CT Report ---
Reason: found down ams Procedure Date: 11/17/2017 Accession Number: [id number] / [id number] Procedure: CT - Head W/O CPT Code: FULL RESULT: EXAM: CT HEAD EXAM DATE: 11/17/2017 09:37 AM. CLINICAL HISTORY: Found down ams. COMPARISON: CERVICAL SPINE W/O 11/17/2017 9:17 AM. TECHNIQUE: Multiaxial CT images were obtained from the foramen magnum to the vertex. Reformats: Sagittal and coronal. IV contrast: None. In accordance with CT protocol optimization, one or more of the following dose reduction techniques were utilized for this exam: automated exposure control, adjustment of mA and/or KV based on patient size, or use of iterative reconstructive technique. FINDINGS: Parenchyma: No intraparenchymal hemorrhage. No evidence of mass, midline shift, or CT findings of infarction. Guidry-white differentiation is distinct. Extraaxial Spaces: Normal for age. No subdural or epidural collections identified. Ventricles: Normal in size and position. Sinuses and Orbits: Imaged paranasal sinuses, orbits, and mastoids show no significant abnormality. Bones: No evidence of fracture or calvarial defect. Other: Left mandibular condyle is subluxed anteriorly by 5-6 mm. IMPRESSION: 1. No evidence for intracranial hemorrhage or depressed calvarial fracture. RADIA
[2017-11-17 10:08] LABS: ABG BASE EXCESS -28.7 mmol/L (-2.0-3.0); ABG HCO3 2.8 mmol/L (22.0-26.0); ABG OXYGEN SATURATION 99 % (94-98)
[2017-11-17 10:11] LABS: ABG PCO2 15 mmHg (34-45); ABG PO2 209 mmHg (80-100); ABG TCO2 3.3 MMOL/L (21.0-29.0)
[2017-11-17] MEDS ORDERED: PROCHLORPERAZINE 10 MG/2 ML VIAL IVP PRN (10:19)
[2017-11-17] MEDS ORDERED: PROMETHAZINE 25 MG/1 ML VIAL IM PRN (10:19)
[2017-11-17] MEDS ORDERED: ONDANSETRON 4 MG/2 ML VIAL IVP PRN (10:19)
[2017-11-17 10:21] LABS: SODIUM 128 mmol/L (135-145)
[2017-11-17 10:22] LABS: CARBON DIOXIDE - CO2 < 6 mmol/L (21-32)
[2017-11-17 10:36] LABS: ACETAMINOPHEN < 10 ug/mL (10-30)
[2017-11-17 10:38] LABS: SALICYLATE < 6.0 mg/dL
[2017-11-17] MEDS ORDERED: INSULIN REGULAR HUMAN 100 UNIT in SODIUM CHLORIDE 0.9% 100ML 99 ML IV SCH ×2 (11:00→23:51)
[2017-11-17] MEDS ORDERED: ALBUTEROL NEB 2.5 MG/3 ML INH PRN (11:00)
--- NOTE | 2017-11-17 11:00 | HISTORY & PHYSICAL EXAMINATION ---
Chief Complaint - Chief Complaint Chief Complaint: Unresponsive History of Present Illness - Admitted From Admitted From:: Emergency Department - History Obtained From Records Reviewed: Yes History obtained from: Medical Records Exam Limitations: Pt unable to provide history secondary to decreased level of consciousness - History of Present Illness HPI Comment/Other: Patient is a very unfortunate 37-year-old female with a past medical history significant for insulin-dependent diabetes mellitus type 1 with recurrent ep isodes of diabetic ketoacidosis secondary to noncompliance with medication, methamphetamine abuse, personality disorder, bipolar, polysubstance abuse, ADHD, hypertension, sinus tachycardia, homelessness, fibromyalgia, chronic pain, osteomyelitis status post multiple toe amputations who presented to the emergency department after she was found unresponsive in the [facility] and EMS was called to the scene. The patient is unable to provide any history as she is very minimally responsive. The patient does appear to be protecting her airway and breathing on her own. She is responsive to light touch and does grimace. She mumbles but is incoherent and therefore unable to provide any further histor y. The patient has a long history of hospitalizations for diabetic ketoacidosis and has previously been found in this kind of state before. On presentation to the emergency department the patient was extremely hypothermic with a core temperature of 30.0 C otherwise vital signs were stable on presentation. The patient underwent routine blood work which revealed several severe abnormalities. The patient was found to have a pH of 6.9 with a bicarb of 2.8. The patient's blood glucose was found to be elevated at 1406. The patient had a creatinine of 2.3 and a total bilirubin of 2.4 with a lactic acid of 4.6. The patient was positive for urine ketones. Her urine tox screen was positive for methamphetamines and amphetamines. In the emergency department the patient was placed on a Nanda hugger to help with warming her core body temperature. She was given several IV fluid boluses and placed on a insulin drip and given IV insulin. The patient was admitted to the intensive care unit for diabetic ketoacidosis and hypothermia. 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 The patient has 2 children who live with her stepmother as she has been unable to get her life together enough to be able to help raise them. She has been living on [facility] for the last 4 years prior to that she lived in [place]. She does smoke a few cigarettes a day denies any alcohol use. She does continue to use methamphetamine. - Substance History Use: Uses substance without health or social issues: NONE - POLST Patient has POLST: No POLST Status: Full Code Meds/Allgy - Home Medications Home Medications: Ambulatory Orders Medication Instructions Recorded Confirmed Aspirin [Aspirin EC] 81 mg PO DAILY #30 tablet. 08/30/17 11/10/17 Oxybutynin [Ditropan] 5 mg PO BID #60 tablet 08/30/17 11/10/17 Blood-Glucose Meter [Glucometer] 1 each [facility] #1 each 09/29/17 11/10/17 Amitriptyline [Elavil] 25 mg PO HS #20 tablet 10/31/17 11/10/17 Blood Sugar Diagnostic [Glucose 1 each [facility] #120 strip 10/31/17 11/10/17 Test Strip] Cilostazol [Pletal] 100 mg PO BID #60 tablet 10/31/17 11/10/17 DULoxetine [Cymbalta] 60 mg PO DAILY #30 capsule 10/31/17 11/10/17 Ibuprofen [Motrin] 600 mg PO Q6HR PRN #60 tablet 10/31/17 11/10/17 Insulin Aspart [NovoLOG] 3 - 11 unit SUBQ 10/31/17 11/10/17 0800,1200,1700,2100 #3 pen Insulin Aspart [NovoLOG] 15 unit SUBQ TIDWM #3 pen 10/31/17 11/10/17 Metoclopramide [Reglan] 10 mg PO ACHS #60 tablet 10/31/17 11/10/17 Metoprolol Succinate [Toprol Xl] 25 mg PO BID #60 tablet 10/31/17 11/10/17 Nystatin Cream [Mycostatin Cream] 15 gm TOP BID #1 tube 10/31/17 11/10/17 cloNIDine [Catapres] 0.1 mg PO BID #60 tablet 10/31/17 11/10/17 diltiaZEM CD [Cardizem Cd] 120 mg PO DAILY #30 capsule 10/31/17 11/10/17 traMADol [Ultram] 50 mg PO Q6H PRN #10 tablet 10/31/17 11/10/17 Cephalexin [Keflex] 500 mg PO BID #14 capsule 11/11/17 Gabapentin [Neurontin] 900 mg PO TID #90 capsule 11/11/17 Insulin Glargine [Lantus Solostar] 70 unit SUBQ QPM #3 pen 11/11/17 [place], Disposable [Easy Touch 1 each ACHS #120 dis.needle 11/11/17 Hypodermic Needle] - Allergies Allergies/Adverse Reactions: Allergies Allergy/AdvReac Type Severity Reaction Status Date / Time codeine Allergy Hives Verified 11/10/17 10:40 hydrocodone Allergy Hives Verified 11/10/17 10:40 morphine Allergy Itching Verified 11/10/17 10:40 milk AdvReac Cramps Verified 11/10/17 10:40 nitrofurantoin AdvReac Headache Verified 11/10/17 10:40 [From Macrobid] PAPER TAPE AdvReac Unknown Uncoded 11/10/17 10:40 Review of Systems - Other Findings Other Findings: We were unable to get a review of systems from the patient due to her unresponsiveness and current state. The patient did not have any friends or family with her that could provide any further information. Exam - Vital Signs Reviewed Vital Signs: Yes Vital Signs: Vital Signs x48h Temp Pulse Resp BP Pulse Ox 11/17/17 09:49 94 22 95/44 L 100 11/17/17 08:50 94 26 H 105/59 L 100 11/17/17 08:23 30.0 C L 86 20 113/61 94 - Physical Exam General Appearance: positive: Other (The patient appears to be wasting away and she has lost significant weight over the last year. She is responsive to light touch but only grimaces and moans. She has unintelligible mumbling. She is tachypneic but otherwise she is resting peacefully.) Eyes Bilateral: positive: Normal inspection, PERRL, EOMI, No lid inflammation, Conjunctivae nml, No scleral icterus ENT: positive: ENT inspection nml, Pharynx nml, Dry mucous membranes. negative: Purulent nasal drainage, Pharyngeal erythema, Oral lesions Neck: positive: Nml inspection, Thyroid nml, No JVD, Trachea midline. negative: Thyromegaly, Lymphadenopathy (R), Lymphadenopathy (L), Stiff neck, Carotid bruit, Tracheal deviation Respiratory: positive: Chest non-tender, No respiratory distress, Breath sounds nml, Other (Tachypnic). negative: Wheezes, Rales, Rhonchi Cardiovascular: positive: No murmur, No gallop, Tachycardia Peripheral Pulses: positive: 2+ Abdomen: positive: Non-tender, No organomegaly, Nml bowel sounds, No distention. negative: Guarding, Rebound, Hepatomegaly Back: positive: Nml inspection. negative: CVA tenderness (R), CVA tenderness (L) Skin: positive: Color nml, No rash, Warm, Dry, Other (Patient has many scarpes on hands, arms, legs, she also has track white. Her right 3rd toe appears to have a wound with mild drainage but does not appear to have surrounding erythema to suggest infection). negative: Cyanosis, Diaphoresis, Pallor Extremities: positive: Non-tender, Full ROM, No pedal edema Neurologic/Psychiatric: positive: Other (Patient minimally resposive, does not open eyes but grimaces to light touch and mutters but is incoherent. She is not responsive enough to participate in a full neuro exam but appears to be moving all her extremities.) Conclusion/Plan - Problem List (1) DKA (diabetic ketoacidoses) Conclusion/Plan: Patient presented unresponsive in coma from diabetic ketoacidosis. Patient's blood glucose was 1406 on presentation with a pH of 6.9 and bicarb of 3.3. The patient's anion gap cannot be calculated by the computer. She had positive serum ketones. The patient was admitted to the intensive care unit with diabetic ketoacidosis and placed on an insulin drip. The patient has a long history of noncompliance and previous hospitalizations for diabetic ketoacidosis. Admit to ICU NPO Place on insulin drip at 1unit/kg/hr Give IVFs Check BMP q 2 hours Monitor anion gap Once gap closed will give subQ lantus, place on SS nutritional insulin, start diabetic diet and stop insulin drip 1 hour later Nutrition consult Qualifiers: Diabetes mellitus type: type 1 Diabetes mellitus complication detail: with coma Qualified Code(s): E10.11 - Type 1 diabetes mellitus with ketoacidosis with coma (2) Decreased level of consciousness Conclusion/Plan: Patient presented with a decreased level of consciousness in a comatose state due to diabetic ketoacidosis. Patient has had some mild improvement and now is grimacing and responsive to light touch. She still has not open her eyes she has not spoke incoherently and is not yet following commands. The patient did undergo a CT of her head as well as her cervical spine which were negative for any acute changes. The patient's decreased level of consciousness appears to be secondary to diabetic ketoacidosis. We will continue to treat her DKA and monitor her mental status. The patient does not appear to have infection at this time. (3) Hypothermia Conclusion/Plan: On presentation the patient's core body temperature was 30.0 C. The patient was very cold to touch. Likely she is hypothermic from being outside in the cold for an extended period of time. It is unclear as to how long she was lying outside in the bushes. The patient's body temperature seems to be improving with a bear hugger. We will continue to warm the patient that she is responding well. She will likely also improve with treatment of her DKA. Qualifiers: Encounter type: initial encounter Qualified Code(s): T68.XXXA - Hypothermia, initial encounter (4) HANSA (acute kidney injury) Conclusion/Plan: The patient has acute kidney injury with a creatinine elevated up to 2.3. Patient's acute kidney injury is likely secondary to her severe dehydration from DKA. The patient will be given IV fluid boluses and maintenance fluid and be treated for her DKA. The patient's creatinine will be monitored and we will avoid any nephrotoxic agents. (5) Elevated LFTs Conclusion/Plan: The patient does have elevated LFTs. The patient's bilirubin is elevated to 2.4 and AST is mildly elevated at 95 alk phos is 316. The patient has had elevated LFTs in the past when she has had DKA. Patient likely has some organ failure secondary to the severity of her DKA and that is why she has decreased level of consciousness, elevated lactic acid of 4.6, elevated creatinine of 2.3 and elevated LFTs. The patient has had a CT of her abdomen earlier this month therefore we do not see a need to repeat any imaging. We will continue to monitor her LFTs and they will likely improve with treatment of her DKA. (6) High anion gap metabolic acidosis Conclusion/Plan: The patient has a high anion gap metabolic acidosis. The patient's anion gap cannot be calculated by the computer at this time. The patient has a lactic acidosis of 4.6. The patient's metabolic acidosis is likely secondary to her diabetic ketoacidosis. The patient's DKA will be treated and we believe her metabolic acidosis will improve. Patient is being given IV fluids and insulin infusion. (7) Hyperkalemia Conclusion/Plan: On presentation the patient is hyperkalemic with a potassium of 5.4 this is likely secondary to her DKA and will improve with getting insulin. In fact were concerned that she may become hypokalemic and will likely need to add potassium to her IV fluid. We will continue to monitor the patient's potassium while she is hospitalized. (8) Hyponatremia Conclusion/Plan: The patient presents with a sodium of 128 which is low however her adjusted sodium for her hyperglycemia is within the normal range. The patient has pseudohyponatremia which will likely improve with treatment of her diabetic ketoacidosis. (9) Leukocytosis, unspecified Conclusion/Plan: The patient's white blood cell count is elevated at 15.8. This appears to be reactive given she is presenting with severe hypothermia and diabetic ketoacidosis. The patient does not appear to have any acute infection at this time which could be causing her leukocytosis or her DKA. The patient's chest x- ray was negative and her urine analysis is negative for infection. The patient does have a wound on her right third toe however this does not appear infected. At this point it does not appear as though we need to start her on antibiotics we will continue to monitor her WBC as we treat her DKA. Qualifiers: Leukocytosis type: other Qualified Code(s): D72.828 - Other elevated white blood cell count (10) Methamphetamine abuse Conclusion/Plan: The patient appears to be continuing to abuse methamphetamines as she is positive again for methamphetamines on urine tox. Once patient is more alert and awake we will intellectual property counsel her on the need to quit methamphetamine use. She has been counseled many times in the past and does not appear as though she is going to be changing her behavior anytime soon. - Lab Results Lab results reviewed: Yes Fish Bones: 11/17/17 08:30 11/17/17 08:30 Other Lab Results: Laboratory Results WBC 14.8 x10^3/uL (4.8-10.8) H 11/17/17 08:30 RBC 4.65 10^6/uL (4.20-5.40) 11/17/17 08:30 Hgb 11.4 g/dL (12.0-16.0) L 11/17/17 08:30 Hct 44.4 % (37.0-47.0) 11/17/17 08:30 MCV 95.5 fL (81.0-99.0) 11/17/17 08:30 MCH 24.4 pg (27.0-31.0) L 11/17/17 08:30 MCHC 25.6 g/dL (32.0-36.0) L 11/17/17 08:30 RDW 16.6 % (12.0-15.0) H 11/17/17 08:30 Plt Count 559 10^3/uL (130-450) H 11/17/17 08:30 MPV 9.0 fL (7.9-10.8) 11/17/17 08:30 Neut # (Auto) 11.5 10^3/uL (1.5-6.6) H 11/17/17 08:30 Lymph # (Auto) 2.4 10^3/uL (1.5-3.5) 11/17/17 08:30 [place] # (Auto) 0.9 10^3/uL (0.0-1.0) 11/17/17 08:30 Eos # (Auto) 0.0 10^3/uL (0.0-0.7) 11/17/17 08:30 Baso # (Auto) 0.1 10^3/uL (0.0-0.1) 11/17/17 08:30 Absolute Nucleated RBC 0.01 x10^3/uL 11/17/17 08:30 Nucleated RBC % 0.1 /100WBC 11/17/17 08:30 Bld Gas Analysis Time 09:05 11/17/17 09:05 ABG pH 6.90 (7.35-7.45) L* 11/17/17 09:05 ABG pCO2 15 mmHg (34-45) L* 11/17/17 09:05 ABG pO2 209 mmHg (80-100) H* 11/17/17 09:05 ABG HCO3 2.8 mmol/L (22.0-26.0) L 11/17/17 09:05 ABG Total CO2 3.3 MMOL/L (21.0-29.0) L* 11/17/17 09:05 ABG O2 Saturation 99 % (94-98) H 11/17/17 09:05 ABG Base Excess -28.7 mmol/L (-2.0-3.0) L 11/17/17 09:05 Ilia Test UNKNOWN 11/17/17 09:05 Sodium 128 mmol/L (135-145) L 11/17/17 08:30 Potassium 5.4 mmol/L (3.5-5.0) H 11/17/17 08:30 Chloride 81 mmol/L (101-111) L 11/17/17 08:30 Carbon Dioxide < 6 mmol/L (21-32) L* 11/17/17 08:30 Anion Gap SIGN FABRICATOR 11/17/17 08:30 BUN 57 mg/dL (6-20) H 11/17/17 08:30 Creatinine 2.3 mg/dL (0.4-1.0) H 11/17/17 08:30 Estimated GFR (MDRD) 24 (>89) L 11/17/17 08:30 Glucose 1406 mg/dL (70-100) H* 11/17/17 08:30 Lactic Acid 4.6 mmol/L (0.5-2.2) H* 11/17/17 09:05 Calcium 9.1 mg/dL (8.5-10.3) 11/17/17 08:30 Total Bilirubin 2.4 mg/dL (0.2-1.0) H 11/17/17 08:30 AST 38 IU/L (10-42) 09/26/18 08:30 ALT 95 IU/L (10-60) H 11/17/17 08:30 Alkaline Phosphatase 316 IU/L (42-121) H 11/17/17 08:30 Troponin I < 0.04 ng/mL (<0.49) 11/17/17 08:30 Total Protein 8.0 g/dL (6.7-8.2) 11/17/17 08:30 Albumin 4.2 g/dL (3.2-5.5) 11/17/17 08:30 Globulin 3.8 g/dL (2.1-4.2) 11/17/17 08:30 Albumin/Globulin Ratio 1.1 (1.0-2.2) 11/17/17 08:30 Lipase 64 U/L (22-51) H 11/17/17 08:30 Urine Color YELLOW 11/17/17 09:08 Urine Clarity CLEAR (CLEAR) 11/17/17 09:08 Urine pH 5.0 PH (5.0-7.5) 11/17/17 09:08 Ur Specific [place] 1.020 (1.002-1.030) 11/17/17 09:08 Urine Protein NEGATIVE mg/dL (NEGATIVE) 11/17/17 09:08 Urine Glucose (UA) >=1000 mg/dL (NEGATIVE) H 11/17/17 09:08 Urine Ketones 40 mg/dL (NEGATIVE) H 11/17/17 09:08 Urine Occult Blood TRACE-INTA (NEGATIVE) 11/17/17 09:08 Urine Nitrite NEGATIVE (NEGATIVE) 11/17/17 09:08 Urine Bilirubin NEGATIVE (NEGATIVE) 11/17/17 09:08 Urine Urobilinogen 0.2 (NORMAL) E.U./dL (NORMAL) 11/17/17 09:08 Ur Leukocyte Esterase NEGATIVE (NEGATIVE) 11/17/17 09:08 Ur Microscopic Review NOT INDICATED 11/17/17 09:08 Urine Culture Comments NOT INDICATED 11/17/17 09:08 Urine HCG, Qual NEGATIVE 11/17/17 09:08 Salicylates < 6.0 mg/dL 11/17/17 08:30 Urine Opiates Screen NEGATIVE (NEGATIVE) 11/17/17 09:08 Ur Oxycodone Screen NEGATIVE (NEGATIVE) 11/17/17 09:08 Urine Methadone Screen NEGATIVE (NEGATIVE) 11/17/17 09:08 Ur Propoxyphene Screen NEGATIVE (NEGATIVE) 11/17/17 09:08 Acetaminophen < 10 ug/mL (10-30) L 11/17/17 08:30 Ur Barbiturates Screen NEGATIVE (NEGATIVE) 11/17/17 09:08 Ur Tricyclics Screen NEGATIVE (NEGATIVE) 11/17/17 09:08 Ur Phencyclidine Scrn NEGATIVE (NEGATIVE) 11/17/17 09:08 Ur Amphetamine Screen POSITIVE (NEGATIVE) H 11/17/17 09:08 U Methamphetamines Scrn POSITIVE (NEGATIVE) H 11/17/17 09:08 U Benzodiazepines Scrn NEGATIVE (NEGATIVE) 11/17/17 09:08 Urine Cocaine Screen NEGATIVE (NEGATIVE) 11/17/17 09:08 U Cannabinoids Screen NEGATIVE (NEGATIVE) 11/17/17 09:08 Ethyl Alcohol < 5.0 mg/dL 11/17/17 08:30 - Diagnostic Imaging Results Diagnostic Imaging Results: positive: Final report reviewed Diagnostic Imaging Results Comments: Cervical C-spine x-ray Impression: 1. Convex left cervical rotatory scoliosis 2. No acute fracture evident. CT head Impression: 1. No evidence for intracranial hemorrhage or depressed calvarial fracture. Chest x-ray Impression: No acute cardiopulmonary abnormality. - EKG Results EKG Interpreted Independently: Yes EKG Findings: Non specific changes. No STEMI. Core Measures - Anticipated LOS I expect patient to be DC'd or transferred within 96 hours.: Yes - DVT/VTE - Prophylaxis VTE/DVT Prophylaxis med ordered at admit?: Yes
[2017-11-17] MEDS: SODIUM CHLORIDE 0.9% 1,000 ML IV ONE ×6 (11:01→16:33)
--- NOTE | 2017-11-17 11:15 | ANESTHESIA PROCEDURE NOTE ---
Anesth Central Line Template - Central Line Central Line Preparation: Unable to obtain consent, Time out completed, Ultra sound used, Sterile prep and drape Central line location: Right IJ Central line type: Triple lumen Central line aftercare: Chlorhexidine disc placed, Secured, Placement confirmed, No pneumothorax, No complications, Bundle checklist complete, Pt tolerated well Other Info/Details: Called for central line placement on a critically ill ER patient for DKA. Unable to obtain consent as patient is obtunded and no family was available. Due to critical nature, it was felt to be in best interests to proceed with line placement. After timeout, skin was prepped with chloroprep and allowed to dry. Full drape, gown, mask and sterile gloves were used. The Right IJ was identified under ultrasound and access with 18G needle and wire advanced with ease. Vein was dilated and a triple lumen catheter was advanced with ease. All ports aspirated blood and were flushed with ease. Line was sutured in place and sterile dressing with biopatch applied. Patient tolerated procedure well. Chest xray pending.
--- NOTE | 2017-11-17 11:52 | XRAY Report ---
Reason: line placement Procedure Date: 11/17/2017 Accession Number: [id number] / [id number] Procedure: XR - Chest 1 View X-Ray CPT Code: 87747 FULL RESULT: EXAM: CHEST RADIOGRAPHY EXAM DATE: 11/17/2017 11:17 AM. CLINICAL HISTORY: Line placement. COMPARISON: CHEST 1 VIEW 11/17/2017 8:52 AM. TECHNIQUE: 1 view. FINDINGS: Lungs/Pleura: No focal opacities evident. No pleural effusion. No pneumothorax. Mediastinum: Within exam limitations, the cardiomediastinal contour is normal. Other: Right IJ central line extends to right atrium, 2 cm from cavoatrial junction. IMPRESSION: 1. Right IJ central line extends to right atrium, 2 cm from cavoatrial junction. RADIA ADDENDUM: 11/17/17 12:00 Exam discussed with anesthesia nurse Roque on day of study at 12:01 PM.
[2017-11-17 12:35] LABS: VBG PCO2 17.9 mmHg (41-51); VBG PH 6.993 (7.31-7.41)
[2017-11-17 12:36] LABS: VBG PO2 77.4 mmHg (25-47)
[2017-11-17 12:38] LABS: VBG BASE EXCESS -25.5 mmol/L (-2 - +2); VBG TOTAL CO2 4.8 mmol/L (24-29)
[2017-11-17] MEDS: SODIUM CHLORIDE FLUSH 0.9% 10 ML SYRINGE IVP PRN ×7 (12:38→18:45)
[2017-11-17 12:50] LABS: BUN - BLOOD UREA NITROGEN 56 mg/dL (6-20); CALCIUM 7.8 mg/dL (8.5-10.3); CHLORIDE 94 mmol/L (101-111); CREATININE 2.3 mg/dL (0.4-1.0); GFR - MDRD 24 (>89); SODIUM 134 mmol/L (135-145)
[2017-11-17 12:51] LABS: CARBON DIOXIDE - CO2 < 6 mmol/L (21-32)
[2017-11-17 12:53] LABS: GLUCOSE 1044 mg/dL (70-100)
[2017-11-17 13:01] LABS: KETONES, SERUM (ACETEST) MODERATE (NEGATIVE)
[2017-11-17 14:52] LABS: KETONES, SERUM (ACETEST) MODERATE (NEGATIVE)
[2017-11-17 15:00] LABS: BUN - BLOOD UREA NITROGEN 53 mg/dL (6-20); CALCIUM 7.8 mg/dL (8.5-10.3); CHLORIDE 102 mmol/L (101-111); GFR - MDRD 28 (>89); MAGNESIUM 2.8 mg/dL (1.7-2.8); SODIUM 140 mmol/L (135-145)
[2017-11-17 15:01] LABS: CARBON DIOXIDE - CO2 6 mmol/L (21-32); GLUCOSE 743 mg/dL (70-100)
[2017-11-17 16:31] LABS: HEMOGLOBIN A1C 1.24 g/dL; HEMOGLOBIN A1C % 11.6 % (4.6-6.2)
[2017-11-17 17:16] LABS: KETONES, SERUM (ACETEST) MODERATE (NEGATIVE)
[2017-11-17 17:24] LABS: BUN - BLOOD UREA NITROGEN 48 mg/dL (6-20); CALCIUM 7.4 mg/dL (8.5-10.3); CHLORIDE 108 mmol/L (101-111); CREATININE 1.7 mg/dL (0.4-1.0); GFR - MDRD 34 (>89); GLUCOSE 482 mg/dL (70-100); SODIUM 142 mmol/L (135-145)
[2017-11-17 17:25] LABS: CARBON DIOXIDE - CO2 9 mmol/L (21-32)
[2017-11-17] MEDS: SODIUM CHLORIDE FLUSH 0.9% 10 ML SYRINGE IVP SCH (17:56)
[2017-11-17] MEDS: NS W/20 MEQ KCL 1,000 ML IV SCH (17:56)
[2017-11-17 18:56] LABS: GLUCOSE 362 mg/dL (70-100)
[2017-11-17 19:17] LABS: KETONES, SERUM (ACETEST) MODERATE (NEGATIVE)
[2017-11-17 21:01] LABS: BUN - BLOOD UREA NITROGEN 45 mg/dL (6-20); CALCIUM 7.8 mg/dL (8.5-10.3); CARBON DIOXIDE - CO2 16 mmol/L (21-32); CHLORIDE 115 mmol/L (101-111); CREATININE 1.3 mg/dL (0.4-1.0); GFR - MDRD 46 (>89); GLUCOSE 277 mg/dL (70-100); SODIUM 147 mmol/L (135-145)
[2017-11-17 21:02] LABS: KETONES, SERUM (ACETEST) SMALL (NEGATIVE)
[2017-11-17] MEDS: AMITRIPTYLINE 25 MG TABLET PO SCH (21:09)
[2017-11-17] MEDS: FAMOTIDINE 20 MG/50 ML 50 ML IV SCH (21:14)
[2017-11-18] MEDS ORDERED: D5.45NS W/20 MEQ KCL 1,000 ML IV ONE (00:34)
[2017-11-18] MEDS: NYSTATIN CREAM 15 GM TUBE TOP SCH ×3 (00:43→22:01)
[2017-11-18] MEDS: METOPROLOL 5 MG/5 ML VIAL IVP SCH ×4 (00:47→18:16)
[2017-11-18 00:51] LABS: BUN - BLOOD UREA NITROGEN 42 mg/dL (6-20); CALCIUM 7.9 mg/dL (8.5-10.3); CARBON DIOXIDE - CO2 20 mmol/L (21-32); CHLORIDE 116 mmol/L (101-111); CREATININE 1.1 mg/dL (0.4-1.0); GFR - MDRD 56 (>89); GLUCOSE 178 mg/dL (70-100); SODIUM 149 mmol/L (135-145)
[2017-11-18 00:53] LABS: KETONES, SERUM (ACETEST) SMALL (NEGATIVE)
[2017-11-18] MEDS ORDERED: D5.45NS W/20 MEQ KCL 1,000 ML IV SCH (01:00)
[2017-11-18] MEDS: INSULIN GLARGINE 300 UNIT/3 ML PEN SUBQ SCH ×3 (01:20→21:40)
[2017-11-18] MEDS ORDERED: POLYETHYLENE GLYCOL 3350 17 GM PACKET PO PRN (01:48)
[2017-11-18] MEDS: INSULIN REGULAR HUMAN 100 UNIT/1 ML 10 ML MDV SUBQ SCH ×2 (02:21→06:51)
[2017-11-18] MEDS: SODIUM CHLORIDE FLUSH 0.9% 10 ML SYRINGE IVP SCH ×5 (02:27→20:58)
[2017-11-18] MEDS: SODIUM CHLORIDE FLUSH 0.9% 10 ML SYRINGE IVP PRN ×8 (04:35→23:57)
[2017-11-18 04:48] LABS: BASOPHILS % (AUTO) 0.1 %; LYMPHOCYTES % (AUTO) 8.8 %; MEAN CORPUSCULAR HEMOGLOBIN 24.6 pg (27.0-31.0); MEAN CORPUSCULAR HGB CONC 32.5 g/dL (32.0-36.0); MEAN CORPUSCULAR VOLUME 75.7 fL (81.0-99.0); MEAN PLATELET VOLUME 7.3 fL (7.9-10.8); MONOCYTES # (AUTO) 0.9 10^3/uL (0.0-1.0); NEUTROPHILS # (AUTO) 9.1 10^3/uL (1.5-6.6); NEUTROPHILS % (AUTO) 83.1 %; PLT - PLATELET COUNT 299 10^3/uL (130-450); RED BLOOD COUNT 3.66 10^6/uL (4.20-5.40); RED CELL DISTRIBUTION WIDTH 15.8 % (12.0-15.0); WHITE BLOOD COUNT 10.9 x10^3/uL (4.8-10.8)
[2017-11-18 04:55] LABS: KETONES, SERUM (ACETEST) SMALL (NEGATIVE)
[2017-11-18 04:57] LABS: PT - PROTHROMBIN TIME 11.2 secs (9.9-12.6)
[2017-11-18 05:04] LABS: ALBUMIN 3.1 g/dL (3.2-5.5); ALBUMIN/GLOBULIN RATIO 1.1 (1.0-2.2); ALKALINE PHOSPHATASE 184 IU/L (42-121); ALT ALANINE AMINOTRANSFERASE 58 IU/L (10-60); AST ASPARTATE AMINOTRANSFERASE 30 IU/L (10-42); BILIRUBIN,TOTAL 1.1 mg/dL (0.2-1.0); BUN - BLOOD UREA NITROGEN 38 mg/dL (6-20); CALCIUM 7.8 mg/dL (8.5-10.3); CARBON DIOXIDE - CO2 17 mmol/L (21-32); CHLORIDE 114 mmol/L (101-111); CREATININE 0.9 mg/dL (0.4-1.0); GFR - MDRD 71 (>89); GLUCOSE 301 mg/dL (70-100); MAGNESIUM 2.5 mg/dL (1.7-2.8); SODIUM 147 mmol/L (135-145); TOTAL PROTEIN 5.8 g/dL (6.7-8.2)
[2017-11-18] MEDS ORDERED: INSULIN REGULAR HUMAN 100 UNIT/1 ML 10 ML MDV ONE ×2 (06:25→13:50)
[2017-11-18] MEDS ORDERED: INSULIN ASPART 300 UNIT/3 ML PEN SUBQ ONE ×2 (06:37→06:40)
[2017-11-18] MEDS: FAMOTIDINE 20 MG/50 ML 50 ML IV SCH ×2 (08:50→20:57)
[2017-11-18] MEDS: ASPIRIN EC 81 MG TABLET PO SCH (08:56)
[2017-11-18] MEDS: ENOXAPARIN 40 MG/0.4 ML SYRINGE SUBQ SCH (08:56)
[2017-11-18] MEDS ORDERED: SODIUM CHLORIDE 0.45% 1,000 ML IV SCH (09:00)
[2017-11-18] MEDS ORDERED: INSULIN ASPART 300 UNIT/3 ML PEN SUBQ SCH (12:00)
[2017-11-18] MEDS: INSULIN ASPART 300 UNIT/3 ML PEN SUBQ SCH ×2 (12:08→18:01)
[2017-11-18 12:25] LABS: CALCIUM 8.3 mg/dL (8.5-10.3); CREATININE 1.1 mg/dL (0.4-1.0)
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
[2017-11-18] MEDS: MULTIVITAMIN W/MINERALS TABLET PO SCH (13:55)
[2017-11-18] MEDS ORDERED: INSULIN REGULAR HUMAN 100 UNIT/1 ML 10 ML MDV IVP SCH (14:45)
[2017-11-18 15:27] LABS: CALCIUM 8.2 mg/dL (8.5-10.3); CREATININE 1.2 mg/dL (0.4-1.0)
--- NOTE | 2017-11-18 15:49 | PROVIDER PROGRESS NOTE ---
Hospitalist Cross-cover Note - Cross-Cover Note Cross-Cover Note: Patient placed back on insulin drip as she is back in DKA with anion gap of 19 and CO2 of 12 with BG of 480.
[2017-11-18] MEDS ORDERED: INSULIN REGULAR HUMAN 100 UNIT in SODIUM CHLORIDE 0.9% 100ML 99 ML IV SCH ×2 (16:00→21:15)
[2017-11-18] MEDS: SODIUM BICARBONATE 100 MEQ in DEXTROSE 5% 1,000 ML IV SCH (16:30)
[2017-11-18 16:34] LABS: VBG BASE EXCESS -9.5 mmol/L (-2 - +2); VBG PCO2 24.6 mmHg (41-51); VBG PH 7.382 (7.31-7.41); VBG PO2 46.6 mmHg (25-47)
[2017-11-18 17:17] LABS: CALCIUM 8.3 mg/dL (8.5-10.3)
[2017-11-18 18:36] LABS: GLUCOSE 326 mg/dL (70-100)
[2017-11-18 18:41] LABS: KETONES, SERUM (ACETEST) SMALL (NEGATIVE)
[2017-11-18] MEDS ORDERED: LORazepam 2 MG/ML VIAL IVP SCH ×2 (18:42→19:18)
[2017-11-18] MEDS ORDERED: LORazepam 2 MG/ML VIAL ONE ×2 (18:51→19:03)
[2017-11-18] MEDS ORDERED: HALOPERIDOL 5 MG/ML VIAL ONE (19:18)
[2017-11-18] MEDS ORDERED: HALOPERIDOL 5 MG/ML VIAL IVP SCH (19:18)
[2017-11-18 20:28] LABS: KETONES, SERUM (ACETEST) SMALL (NEGATIVE)
[2017-11-18 20:32] LABS: CALCIUM 8.3 mg/dL (8.5-10.3); CREATININE 0.7 mg/dL (0.4-1.0)
[2017-11-18 20:36] LABS: MAGNESIUM 2.1 mg/dL (1.7-2.8)
[2017-11-18] MEDS: NS W/20 MEQ KCL 1,000 ML IV SCH (21:08)
[2017-11-18] MEDS: AMITRIPTYLINE 25 MG TABLET PO SCH (21:19)
[2017-11-18 22:02] LABS: CALCIUM 8.3 mg/dL (8.5-10.3); CREATININE 0.6 mg/dL (0.4-1.0)
[2017-11-18] MEDS: LORazepam 2 MG/ML VIAL IVP PRN (22:51)
[2017-11-18] MEDS: POTASSIUM CHLOR 20 MEQ/100 ML 20 MEQ/100 ML BAG IV SCH (23:52)
[2017-11-19] MEDS ORDERED: INSULIN REGULAR HUMAN 100 UNIT/1 ML 10 ML MDV SUBQ SCH
[2017-11-19] MEDS: METOPROLOL 5 MG/5 ML VIAL IVP SCH ×5 (00:02→23:22)
[2017-11-19] MEDS: SODIUM CHLORIDE FLUSH 0.9% 10 ML SYRINGE IVP PRN ×7 (00:03→23:23)
[2017-11-19] MEDS: INSULIN REGULAR HUMAN 100 UNIT/1 ML 10 ML MDV SUBQ SCH ×4 (00:14→16:46)
[2017-11-19 00:21] LABS: CALCIUM 8.2 mg/dL (8.5-10.3); CREATININE 0.6 mg/dL (0.4-1.0)
[2017-11-19] MEDS: POTASSIUM CHLOR 20 MEQ/100 ML 20 MEQ/100 ML BAG IV SCH ×3 (01:00→07:59)
[2017-11-19 02:21] LABS: KETONES, SERUM (ACETEST) SMALL (NEGATIVE)
[2017-11-19 02:24] LABS: GLUCOSE 94 mg/dL (70-100)
[2017-11-19] MEDS ORDERED: SODIUM BICARBONATE 8.4% 50 MEQ/50 ML VIAL ONE (02:38)
[2017-11-19] MEDS ORDERED: DEXTROSE 5% 1,000 ML IV ONE (02:44)
[2017-11-19] MEDS: SODIUM BICARBONATE 100 MEQ in DEXTROSE 5% 1,000 ML IV SCH (02:58)
[2017-11-19 05:18] LABS: BASOPHILS % (AUTO) 0.3 %; EOSINOPHILS % (AUTO) 0.3 %; HGB - HEMOGLOBIN 7.9 g/dL (12.0-16.0); LYMPHOCYTES # (AUTO) 2.2 10^3/uL (1.5-3.5); LYMPHOCYTES % (AUTO) 33.3 %; MEAN CORPUSCULAR HEMOGLOBIN 24.1 pg (27.0-31.0); MEAN CORPUSCULAR HGB CONC 32.5 g/dL (32.0-36.0); MEAN CORPUSCULAR VOLUME 74.1 fL (81.0-99.0); MEAN PLATELET VOLUME 7.1 fL (7.9-10.8); MONOCYTES # (AUTO) 0.4 10^3/uL (0.0-1.0); MONOCYTES % (AUTO) 5.7 %; NEUTROPHILS # (AUTO) 3.9 10^3/uL (1.5-6.6); NEUTROPHILS % (AUTO) 60.4 %; PLT - PLATELET COUNT 209 10^3/uL (130-450); RED BLOOD COUNT 3.29 10^6/uL (4.20-5.40); RED CELL DISTRIBUTION WIDTH 15.8 % (12.0-15.0); WHITE BLOOD COUNT 6.5 x10^3/uL (4.8-10.8)
[2017-11-19] MEDS: LORazepam 2 MG/ML VIAL IVP PRN ×4 (05:19→19:40)
[2017-11-19 05:30] LABS: VBG PH 7.46 (7.31-7.41)
[2017-11-19 05:35] LABS: ALBUMIN 2.8 g/dL (3.2-5.5); BILIRUBIN,TOTAL 0.8 mg/dL (0.2-1.0); CALCIUM 8.4 mg/dL (8.5-10.3); CREATININE 0.5 mg/dL (0.4-1.0); PHOSPHORUS 1.2 mg/dL (2.5-4.6); TOTAL PROTEIN 5.5 g/dL (6.7-8.2)
[2017-11-19] MEDS ORDERED: POTASSIUM PHOSPHATE 21 MMOL in SODIUM CHLORIDE 0.9% 250 ML IV ONE (06:00)
[2017-11-19 06:12] LABS: HB2 TOTAL 8.4 g/dL; HEMOGLOBIN A1C 0.92 g/dL; HEMOGLOBIN A1C % 12.2 % (4.6-6.2)
[2017-11-19] MEDS: DEXTROSE 50% ABBOJECT 25 GM/50 ML SYRINGE IVP ONE ×2 (06:17→10:30)
[2017-11-19] MEDS ORDERED: SODIUM CHLORIDE FLUSH 0.9% 10 ML SYRINGE ONE (07:44)
[2017-11-19] MEDS: ENOXAPARIN 40 MG/0.4 ML SYRINGE SUBQ SCH (09:00)
[2017-11-19] MEDS: SODIUM CHLORIDE FLUSH 0.9% 10 ML SYRINGE IVP SCH ×3 (09:00→20:51)
[2017-11-19] MEDS: FAMOTIDINE 20 MG/50 ML 50 ML IV SCH ×2 (09:10→20:51)
[2017-11-19] MEDS: DEXTROSE 5% 1,000 ML IV SCH ×2 (09:30→19:41)
[2017-11-19] MEDS: MULTIVITAMIN W/MINERALS TABLET PO SCH (10:26)
[2017-11-19] MEDS: ASPIRIN EC 81 MG TABLET PO SCH (10:26)
[2017-11-19] MEDS ORDERED: DEXTROSE 50% ABBOJECT 25 GM/50 ML SYRINGE ONE (10:38)
[2017-11-19] MEDS: NYSTATIN CREAM 15 GM TUBE TOP SCH ×2 (11:44→20:57)
--- NOTE | 2017-11-19 15:18 | PROVIDER PROGRESS NOTE ---
Assessment/Plan - Problem List (1) DKA (diabetic ketoacidoses) Qualifiers: Diabetes mellitus type: type 1 Diabetes mellitus complication detail: with coma Qualified Code(s): E10.11 - Type 1 diabetes mellitus with ketoacidosis with coma Assessment/Plan: Patient presented unresponsive in coma from diabetic ketoacidosis. Patient's blood glucose was 1406 on presentation with a pH of 6.9 and bicarb of 3.3. The patient's anion gap cannot be calculated by the computer. She had positive serum ketones. The patient was admitted to the intensive care unit with diabetic ketoacidosis and placed on an insulin drip. The patient has a long history of noncompliance and previous hospitalizations for diabetic ketoacidosis. Admitted to ICU Placed on insulin drip at 1unit/kg/hr Given IVFs Anion gap closed therefore patient placed on lantus 70 units and d5 with saline Yesterday patient went back into DKA therefore placed back on insulin drip This morning DKA has resolved but patient is still having confusion and delirium Continue home insulin dose 70 units lantus and 15 units novolog TID with SS insulin DM diet BG check QID (2) Decreased level of consciousness Conclusion/Plan: Patient presented with a decreased level of consciousness in a comatose state due to diabetic ketoacidosis. Despite resolution in DKA patient still very drowsy this am Patient had delirium last night and was given ativan and haldol which likely is causing her drowsiness this morning (3) Hypothermia Conclusion/Plan: On presentation the patient's core body temperature was 30.0 C. The patient was very cold to touch. Likely she is hypothermic from being outside in the cold for an extended period of time. Resolved Qualifiers: Encounter type: initial encounter Qualified Code(s): T68.XXXA - H ypothermia, initial encounter (4) HANSA (acute kidney injury) Conclusion/Plan: The patient has acute kidney injury with a creatinine elevated up to 2.3. Walker hogan's acute kidney injury is likely secondary to her severe dehydration from DKA. Resolved with IVFs (5) Elevated LFTs Conclusion/Plan: The patient does have elevated LFTs. The patient's bilirubin is elevated to 2.4 and AST is mildly elevated at 95 alk phos is 316. The patient has had elevated LFTs in the past when she has had DKA. Patient likely has some organ failure secondary to the severity of her DKA and that is why she has decreased level of consciousness, elevated lactic acid of 4.6, elevated creatinine of 2.3 and elevated LFTs. The patient has had a CT of her abdomen earlier this month therefore we do not see a need to repeat any imaging. LFTs improving (6) High anion gap metabolic acidosis Conclusion/Plan: The patient has a high anion gap metabolic acidosis. The patient's anion gap cannot be calculated by the computer at this time. The patient has a lactic acidosis of 4.6. The patient's metabolic acidosis is likely secondary to her diabetic ketoacidosis. Improving (7) Hypokalemia Conclusion/Plan: K is 3.0 this am Will replace K per electrolyte protocol (8) Hypernatremia Conclusion/Plan: Na elevated to 149 likely secondary to NS and patient being unable to drink water Resolved this am (9) Leukocytosis, unspecified Conclusion/Plan: The patient's white blood cell count is elevated at 15.8. This appears to be reactive given she is presenting with severe hypothermia and diabetic ketoacidosis. The patient does not appear to have any acute infection at this time which could be causing her leukocytosis or her DKA. The patient's chest x- ray was negative and her urine analysis is negative for infection. The patient does have a wound on her right third toe however this does not appear infected. Resolved with hydration Qualifiers: Leukocytosis type: other Qualified Code(s): D72.828 - Other elevated white blood cell count (10) Methamphetamine abuse Conclusion/Plan: The patient appears to be continuing to abuse methamphetamines as she is positiv e again for methamphetamines on urine tox. Counselled on need to quit. Will likely need 1-2 days more of hospitalization - Current Meds Current Meds: Current Medications Generic Name Dose Route Start Last Admin Trade Name Freq PRN Reason Stop Dose Admin Amitriptyline HCl 25 mg 11/17/17 21:00 11/18/17 21:19 Elavil PO Not Given HS SYLVIA Aspirin 81 mg 11/18/17 09:00 11/19/17 10:26 Ecotrin PO 81 mg DAILY SYLVIA Administration Enoxaparin Sodium 40 mg 11/18/17 09:00 11/19/17 09:00 Lovenox SUBQ 40 mg DAILY SYLVIA Administration Famotidine 50 mls @ 100 mls/hr 11/17/17 21:00 11/19/17 09:40 Pepcid 20 Mg/50 Ml IV Infused BID SYLVIA Infusion Dextrose 1,000 mls @ 100 mls/hr 11/19/17 07:00 11/19/17 09:30 D5w IV 100 mls/hr .Q10H SYLVIA Administration Insulin Glargine 70 unit 11/19/17 21:00 11/18/17 21:40 Lantus Solostar SUBQ 70 unit QPM SYLVIA Administration Insulin Human Regular 3 - 11 unit 11/19/17 00:00 11/19/17 06:00 Novolin R SUBQ Not Given Q6HR [facility] Protocol Lorazepam 2 mg 11/18/17 19:19 11/19/17 09:25 Ativan Inj (Vial) IVP 2 mg Q2H PRN Administration Anxiety Metoprolol Tartrate 5 mg 11/18/17 00:00 11/19/17 12:20 Lopressor Inj IVP 5 mg Q6HR SYLVIA Administration Multivitamins/Minerals 1 tab 11/18/17 13:00 11/19/17 10:26 Theragran M PO 1 tab DAILYWM SYLVIA Administration Nystatin 15 applic 11/17/17 21:00 11/19/17 11:44 Mycostatin Cream TOP Not Given BID SYLVIA Sodium Chloride 10 ml 11/17/17 17:00 11/19/17 09:00 Normal Saline Flush 0.9% IVP 10 ml 0100,0900,1700 SYLVIA Administration Sodium Chloride 10 ml 11/17/17 10:19 11/19/17 06:57 Normal Saline Flush 0.9% IVP 10 ml PRN PRN Administration NEEDED PER PROVIDER ORDERS - Lab Result Lab results reviewed: Yes Fish Bone Diagrams: 11/19/17 05:00 11/19/17 05:00 - Diagnostic Imaging Results Diagnostic Imaging Results: Final report reviewed - Additional Planning Condition/Complexity: Guarded My Orders: My Active Orders 11/18/17 15:44 Initiate Hypoglycemia Protocol [RC] .protocol Notify Provider - Specific Ins [RC] PRN 11/18/17 19:19 LORazepam INJ [Ativan Inj (Vial)] 2 mg IVP Q2H PRN 11/19/17 07:00 Dextrose 5% [D5w] 1,000 ml IV 100 mls/hr 11/19/17 12:00 Insulin Aspart [NovoLOG] 15 unit SUBQ TIDWM 11/19/17 Lunch Carb-controlled Diet [DIET] 11/20/17 05:00 CBC - COMP BLD CT W/AUTO DIFF [HEME] DAILYLAB COMPREHENSIVE METABOLIC PANEL [CHEM] DAILYLAB MAGNESIUM [CHEM] DAILYLAB PHOSPHORUS [CHEM] DAILYLAB 11/21/17 05:00 CBC - COMP BLD CT W/AUTO DIFF [HEME] DAILYLAB COMPREHENSIVE METABOLIC PANEL [CHEM] DAILYLAB MAGNESIUM [CHEM] DAILYLAB PHOSPHORUS [CHEM] DAILYLAB 11/22/17 05:00 CBC - COMP BLD CT W/AUTO DIFF [HEME] DAILYLAB COMPREHENSIVE METABOLIC PANEL [CHEM] DAILYLAB MAGNESIUM [CHEM] DAILYLAB PHOSPHORUS [CHEM] DAILYLAB 11/23/17 05:00 CBC - COMP BLD CT W/AUTO DIFF [HEME] DAILYLAB COMPREHENSIVE METABOLIC PANEL [CHEM] DAILYLAB MAGNESIUM [CHEM] DAILYLAB PHOSPHORUS [CHEM] DAILYLAB Plan Discussed with:: Patient Time Spent: 31-60 minutes Subjective - Subjective Patient Reports: Other (Very drowsy, agitated, not making sense, follows commands intermittently. Appears sedated.) Nursing Reports: Confused Objective Vital Signs: Vital Signs - 24 hr 11/18/17 11/18/17 11/18/17 16:00 17:00 18:00 Temperature 37.2 C Heart Rate Heart Rate [ 121 H 119 H 105 H Monitoring electrodes] Respiratory 22 21 20 Rate Blood Pressure Blood Pressure 167/92 H 173/100 H 155/97 H [Left Brachial artery] O2 Saturation 100 119 H 100 11/18/17 11/18/17 11/18/17 18:16 19:42 20:00 Temperature 37.1 C Heart Rate Heart Rate [ 111 H 106 H Monitoring electrodes] Respiratory 18 22 Rate Blood Pressure 155/97 H Blood Pressure 140/91 H 113/70 [Left Brachial artery] O2 Saturation 100 97 11/18/17 11/18/17 11/18/17 21:00 22:00 23:00 Temperature Heart Rate Heart Rate [ 104 H 104 H 108 H Monitoring electrodes] Respiratory 22 23 24 Rate Blood Pressure Blood Pressure 120/76 141/92 H 169/108 H [Left Brachial artery] O2 Saturation 97 99 98 11/19/17 11/19/17 11/19/17 00:00 00:02 01:00 Temperature 36.3 C L Heart Rate Heart Rate [ 104 H 94 Monitoring electrodes] Respiratory 25 H 24 Rate Blood Pressure 158/105 H Blood Pressure 158/105 H 143/96 H [Left Brachial artery] O2 Saturation 100 97 11/19/17 11/19/17 11/19/17 02:00 03:00 04:00 Temperature Heart Rate Heart Rate [ 94 92 95 Monitoring electrodes] Respiratory 21 21 23 Rate Blood Pressure Blood Pressure 141/97 H 140/99 H 152/98 H [Left Brachial artery] O2 Saturation 98 99 100 11/19/17 11/19/17 11/19/17 05:00 06:00 06:56 Temperature Heart Rate Heart Rate [ 96 93 Monitoring electrodes] Respiratory 17 20 Rate Blood Pressure 148/99 H Blood Pressure 158/100 H 153/102 H [Left Brachial artery] O2 Saturation 100 98 11/19/17 11/19/17 11/19/17 07:00 08:00 09:00 Temperature 36.2 C L Heart Rate Heart Rate [ 77 96 89 Monitoring electrodes] Respiratory 20 24 25 H Rate Blood Pressure Blood Pressure 143/89 H 131/97 H 123/83 H [Left Brachial artery] O2 Saturation 98 99 11/19/17 11/19/17 11/19/17 10:00 11:00 12:00 Temperature 36.8 C Heart Rate Heart Rate [ 91 91 91 Monitoring electrodes] Respiratory 21 23 27 H Rate Blood Pressure Blood Pressure 146/86 H 123/85 H 139/99 H [Left Brachial artery] O2 Saturation 98 99 11/19/17 11/19/17 11/19/17 12:20 13:00 13:17 Temperature Heart Rate 95 Heart Rate [ 90 Monitoring electrodes] Respiratory 22 24 Rate Blood Pressure 139/99 H Blood Pressure 138/74 H [Left Brachial artery] O2 Saturation 19 L 11/19/17 14:00 Temperature Heart Rate Heart Rate [ 98 Monitoring electrodes] Respiratory 21 Rate Blood Pressure Blood Pressure 114/79 [Left Brachial artery] O2 Saturation Oxygen O2 Source [Without Activity] Room air O2 Source Room air I&O (Last 24 Hrs): Intake and Output Totals x24h 11/17/17 11/18/17 11/19/17 23:59 23:59 23:59 Intake Total 6312.280 3959.270 2106.667 Output Total 2155 3995 3300 Balance 4157.280 -35.730 -1193.333 General: Mild distress, Other (Drowsy, confused.) HEENT: Atraumatic, PERRLA, EOMI, Other (Dry mucus membranes) Neck: Supple, No JVD, No thyromegaly, +2 carotid pulse wo bruit, No LAD Lymphatic: no adenopathy Neuro: Disoriented, Non Focal, CN 2-12 Grossly Intact, Other (Drowsy) Cardiovascular: Normal S1, Normal S2, Other (tachycardic) Respiratory: Chest non-tender, No respiratory distress, Breath sounds nml Abdomen: Normal bowel sounds, Soft, No tenderness, No hepatospenomegaly Extremities: No clubbing, No cyanosis, No edema, Normal pulses Skin: No rashes Comments/Notes: Abrasions on arms and legs, track white on skin - Results Results: Laboratory Results WBC 6.5 x10^3/uL (4.8-10.8) 11/19/17 05:00 RBC 3.29 10^6/uL (4.20-5.40) L 11/19/17 05:00 Hgb 7.9 g/dL (12.0-16.0) L 11/19/17 05:00 Hct 24.4 % (37.0-47.0) L 11/19/17 05:00 MCV 74.1 fL (81.0-99.0) L 11/19/17 05:00 MCH 24.1 pg (27.0-31.0) L 11/19/17 05:00 MCHC 32.5 g/dL (32.0-36.0) 11/19/17 05:00 RDW 15.8 % (12.0-15.0) H 11/19/17 05:00 Plt Count 209 10^3/uL (130-450) 11/19/17 05:00 MPV 7.1 fL (7.9-10.8) L 11/19/17 05:00 Neut # (Auto) 3.9 10^3/uL (1.5-6.6) 11/19/17 05:00 Lymph # (Auto) 2.2 10^3/uL (1.5-3.5) 11/19/17 05:00 Baker # (Auto) 0.4 10^3/uL (0.0-1.0) 11/19/17 05:00 Eos # (Auto) 0.0 10^3/uL (0.0-0.7) 11/19/17 05:00 Baso # (Auto) 0.0 10^3/uL (0.0-0.1) 11/19/17 05:00 Absolute Nucleated RBC 0.00 x10^3/uL 11/19/17 05:00 Nucleated RBC % 0.0 /100WBC 11/19/17 05:00 PT 11.2 secs (9.9-12.6) 11/18/17 04:35 INR 1.0 (0.8-1.2) 11/18/17 04:35 Bld Gas Analysis Time 09:05 11/17/17 09:05 ABG pH 6.90 (7.35-7.45) L* 11/17/17 09:05 ABG pCO2 15 mmHg (34-45) L* 11/17/17 09:05 ABG pO2 209 mmHg (80-100) H* 11/17/17 09:05 ABG HCO3 2.8 mmol/L (22.0-26.0) L 11/17/17 09:05 ABG Total CO2 3.3 MMOL/L (21.0-29.0) L* 11/17/17 09:05 ABG O2 Saturation 99 % (94-98) H 11/17/17 09:05 ABG Base Excess -28.7 mmol/L (-2.0-3.0) L 11/17/17 09:05 Ilia Test UNKNOWN 11/17/17 09:05 VBG pH 7.460 (7.31-7.41) H 11/19/17 05:00 VBG pCO2 24.6 mmHg (41-51) L 11/18/17 16:25 VBG pO2 46.6 mmHg (25-47) 11/18/17 16:25 VBG HCO3 14.3 mmol/L (23-28) L 11/18/17 16:25 VBG Total CO2 15.0 mmol/L (24-29) L 11/18/17 16:25 VBG O2 Saturation 82.8 % (60-80) H 11/18/17 16:25 VBG Base Excess -9.5 mmol/L (-2 - +2) L 11/18/17 16:25 Ionized Calcium 1.12 mmol/L (1.15-1.33) L 11/19/17 05:00 Sodium 139 mmol/L (135-145) 11/19/17 05:00 Potassium 3.0 mmol/L (3.5-5.0) L 11/19/17 05:00 Chloride 102 mmol/L (101-111) 11/19/17 05:00 Carbon Dioxide 34 mmol/L (21-32) H 11/19/17 05:00 Anion Gap 3.0 (6-13) L 11/19/17 05:00 BUN 13 mg/dL (6-20) 11/19/17 05:00 Creatinine 0.5 mg/dL (0.4-1.0) 11/19/17 05:00 Estimated GFR (MDRD) 140 (>89) 11/19/17 05:00 Glucose 63 mg/dL (70-100) L 11/19/17 05:00 Glycated Hemoglobin 12.2 % (4.6-6.2) H 11/19/17 05:00 Estim Average Glucose 303 (70-100) H 11/19/17 05:00 Lactic Acid 1.4 mmol/L (0.5-2.2) 11/17/17 15:35 Calcium 8.4 mg/dL (8.5-10.3) L 11/19/17 05:00 Phosphorus 1.2 mg/dL (2.5-4.6) L 11/19/17 05:00 Magnesium 2.0 mg/dL (1.7-2.8) 11/19/17 05:00 Total Bilirubin 0.8 mg/dL (0.2-1.0) 11/19/17 05:00 AST 24 IU/L (10-42) 11/19/17 05:00 ALT 43 IU/L (10-60) 11/19/17 05:00 Alkaline Phosphatase 144 IU/L (42-121) H 11/19/17 05:00 Troponin I < 0.04 ng/mL (<0.49) 11/18/17 04:35 Total Protein 5.5 g/dL (6.7-8.2) L 11/19/17 05:00 Albumin 2.8 g/dL (3.2-5.5) L 11/19/17 05:00 Globulin 2.7 g/dL (2.1-4.2) 11/19/17 05:00 Albumin/Globulin Ratio 1.0 (1.0-2.2) 11/19/17 05:00 Lipase 64 U/L (22-51) H 11/17/17 08:30 Urine Color YELLOW 11/17/17 09:08 Urine Clarity CLEAR (CLEAR) 11/17/17 09:08 Urine pH 5.0 PH (5.0-7.5) 11/17/17 09:08 Ur Specific [place] 1.020 (1.002-1.030) 11/17/17 09:08 Urine Protein NEGATIVE mg/dL (NEGATIVE) 11/17/17 09:08 Urine Glucose (UA) >=1000 mg/dL (NEGATIVE) H 11/17/17 09:08 Urine Ketones 40 mg/dL (NEGATIVE) H 11/17/17 09:08 Urine Occult Blood TRACE-INTA (NEGATIVE) 11/17/17 09:08 Urine Nitrite NEGATIVE (NEGATIVE) 11/17/17 09:08 Urine Bilirubin NEGATIVE (NEGATIVE) 11/17/17 09:08 Urine Urobilinogen 0.2 (NORMAL) E.U./dL (NORMAL) 11/17/17 09:08 Ur Leukocyte Esterase NEGATIVE (NEGATIVE) 11/17/17 09:08 Ur Microscopic Review NOT INDICATED 11/17/17 09:08 Urine Culture Comments NOT INDICATED 11/17/17 09:08 Urine HCG, Qual NEGATIVE 11/17/17 09:08 Salicylates < 6.0 mg/dL 11/17/17 08:30 Urine Opiates Screen NEGATIVE (NEGATIVE) 11/17/17 09:08 Ur Oxycodone Screen NEGATIVE (NEGATIVE) 11/17/17 09:08 Urine Methadone Screen NEGATIVE (NEGATIVE) 11/17/17 09:08 Ur Propoxyphene Screen NEGATIVE (NEGATIVE) 11/17/17 09:08 Acetaminophen < 10 ug/mL (10-30) L 11/17/17 08:30 Ur Barbiturates Screen NEGATIVE (NEGATIVE) 11/17/17 09:08 Ur Tricyclics Screen NEGATIVE (NEGATIVE) 11/17/17 09:08 Ur Phencyclidine Scrn NEGATIVE (NEGATIVE) 11/17/17 09:08 Ur Amphetamine Screen POSITIVE (NEGATIVE) H 11/17/17 09:08 U Methamphetamines Scrn POSITIVE (NEGATIVE) H 11/17/17 09:08 U Benzodiazepines Scrn NEGATIVE (NEGATIVE) 11/17/17 09:08 Urine Cocaine Screen NEGATIVE (NEGATIVE) 11/17/17 09:08 U Cannabinoids Screen NEGATIVE (NEGATIVE) 11/17/17 09:08 Ethyl Alcohol < 5.0 mg/dL 11/17/17 08:30 Serum Ketones SMALL (NEGATIVE) H 11/19/17 09:55 - Procedures Procedures: Procedures DETACHMENT AT LEFT 4TH TOE, LOW, OPEN APPROACH (06/30/17) DETACHMENT AT RIGHT 1ST TOE, LOW, OPEN APPROACH (03/14/17) DETACHMENT AT RIGHT 2ND TOE, HIGH, OPEN APPROACH (06/30/17) DETACHMENT AT RIGHT 4TH TOE, HIGH, OPEN APPROACH (06/30/17) INSERT INFUSION DEV IN R INT JUGULAR VEIN, PERC (04/21/16) INSERTION OF INFUSION DEV INTO R SUBCLAV VEIN, PERC APPROACH (03/14/17) INSERTION OF INFUSION DEV INTO SUP VENA CAVA, PERC APPROACH (10/26/17) INSERTION OF INFUSION DEVICE INTO LOWER VEIN, PERC APPROACH (08/13/17) INSERTION OF INFUSION DEVICE INTO R ATRIUM, PERC APPROACH (09/27/17) TRANSFUSE NONAUT RED BLOOD CELLS IN PERIPH VEIN, PERC (01/22/17) ULTRASONOGRAPHY OF RIGHT JUGULAR VEINS, GUIDANCE (04/21/16) ABX Reporting Has patient been on IV antibiotics over the past 48 hours?: No Current Medications - Current Medications Current Medications: Active Medications Generic Name Dose Route Start Last Admin Trade Name Freq PRN Reason Stop Dose Admin Acetaminophen 650 mg 11/17/17 10:19 Tylenol PO Q4HR PRN Pain 1 to 4 Albuterol 2.5 mg 11/17/17 11:00 INH RTQ4H PRN Wheezing Amitriptyline HCl 25 mg 11/17/17 21:00 11/18/17 21:19 Elavil PO Not Given HS SYLVIA Aspirin 81 mg 11/18/17 09:00 11/19/17 10:26 Ecotrin PO 81 mg DAILY SYLVIA Administration Enoxaparin Sodium 40 mg 11/18/17 09:00 11/19/17 09:00 Lovenox SUBQ 40 mg DAILY SYLVIA Administration Famotidine 50 mls @ 100 mls/hr 11/17/17 21:00 11/19/17 09:40 Pepcid 20 Mg/50 Ml IV Infused BID [facility] Infusion Dextrose 1,000 mls @ 100 mls/hr 11/19/17 07:00 11/19/17 09:30 D5w IV 100 mls/hr .Q10H SYLVIA Administration Insulin Aspart 15 unit 11/19/17 12:00 Novolog SUBQ TIDWM SYLVIA Insulin Glargine 70 unit 11/19/17 21:00 11/18/17 21:40 Lantus Solostar SUBQ 70 unit QPM SYLVIA Administration Insulin Human Regular 3 - 11 unit 11/19/17 00:00 11/19/17 06:00 Novolin R SUBQ Not Given Q6HR [facility] Protocol Lorazepam 2 mg 11/18/17 19:19 11/19/17 09:25 Ativan Inj (Vial) IVP 2 mg Q2H PRN Administration Anxiety Metoprolol Tartrate 5 mg 11/18/17 00:00 11/19/17 12:20 Lopressor Inj IVP 5 mg Q6HR SYLVIA Administration Multivitamins/Minerals 1 tab 11/18/17 13:00 11/19/17 10:26 Theragran M PO 1 tab DAILYWM SYLVIA Administration Nystatin 15 applic 11/17/17 21:00 11/19/17 11:44 Mycostatin Cream TOP Not Given BID [facility] Ondansetron HCl 4 mg 11/17/17 10:19 Zofran Inj IVP Q6HR PRN Nausea / Vomiting Polyethylene Glycol 17 gm 11/18/17 01:48 Miralax PO DAILY PRN Bowel Protocol Prochlorperazine Edisylate 10 mg 11/17/17 10:19 Compazine Inj IVP Q6HR PRN Nausea / Vomiting Promethazine HCl 25 mg 11/17/17 10:19 Phenergan Inj IM Q6HR PRN Nausea / Vomiting Sodium Chloride 10 ml 11/17/17 17:00 11/19/17 09:00 Normal Saline Flush 0.9% IVP 10 ml 0100,0900,1700 SYLVIA Administration Sodium Chloride 10 ml 11/17/17 10:19 11/19/17 06:57 Normal Saline Flush 0.9% IVP 10 ml PRN PRN Administration NEEDED PER PROVIDER ORDERS
[2017-11-19] MEDS: INSULIN ASPART 300 UNIT/3 ML PEN SUBQ SCH ×3 (16:42→20:58)
[2017-11-19] MEDS ORDERED: HALOPERIDOL 5 MG/ML VIAL IM ONE (19:02)
[2017-11-19] MEDS ORDERED: HALOPERIDOL 5 MG/ML VIAL IVP PRN (20:24)
[2017-11-19] MEDS: INSULIN GLARGINE 300 UNIT/3 ML PEN SUBQ SCH (20:57)
[2017-11-19] MEDS: AMITRIPTYLINE 25 MG TABLET PO SCH (21:01)
[2017-11-20] MEDS: METOPROLOL 5 MG/5 ML VIAL IVP SCH ×3 (05:26→18:27)
[2017-11-20] MEDS: DEXTROSE 5% 1,000 ML IV SCH ×3 (05:26→23:05)
[2017-11-20] MEDS: SODIUM CHLORIDE FLUSH 0.9% 10 ML SYRINGE IVP PRN ×3 (05:37→10:18)
[2017-11-20 06:36] LABS: BASOPHILS % (AUTO) 0.4 %; EOSINOPHILS % (AUTO) 0.8 %; HGB - HEMOGLOBIN 8.6 g/dL (12.0-16.0); LYMPHOCYTES # (AUTO) 1.8 10^3/uL (1.5-3.5); LYMPHOCYTES % (AUTO) 50.3 %; MEAN CORPUSCULAR HEMOGLOBIN 24.1 pg (27.0-31.0); MEAN CORPUSCULAR HGB CONC 31.9 g/dL (32.0-36.0); MEAN CORPUSCULAR VOLUME 75.7 fL (81.0-99.0); MEAN PLATELET VOLUME 7.1 fL (7.9-10.8); MONOCYTES # (AUTO) 0.3 10^3/uL (0.0-1.0); NEUTROPHILS # (AUTO) 1.5 10^3/uL (1.5-6.6); NEUTROPHILS % (AUTO) 40.5 %; PLT - PLATELET COUNT 154 10^3/uL (130-450); RED BLOOD COUNT 3.54 10^6/uL (4.20-5.40); RED CELL DISTRIBUTION WIDTH 15.8 % (12.0-15.0); WHITE BLOOD COUNT 3.6 x10^3/uL (4.8-10.8)
[2017-11-20 06:40] LABS: VBG PH 7.393 (7.31-7.41)
[2017-11-20 06:53] LABS: ALBUMIN/GLOBULIN RATIO 1.1 (1.0-2.2); BILIRUBIN,TOTAL 0.5 mg/dL (0.2-1.0); CALCIUM 8.5 mg/dL (8.5-10.3); CREATININE 0.4 mg/dL (0.4-1.0); PHOSPHORUS 2.7 mg/dL (2.5-4.6); TOTAL PROTEIN 5.7 g/dL (6.7-8.2)
[2017-11-20] MEDS ORDERED: DEXTROSE 50% ABBOJECT 25 GM/50 ML SYRINGE ONE (08:18)
[2017-11-20] MEDS: INSULIN ASPART 300 UNIT/3 ML PEN SUBQ SCH ×7 (08:29→21:00)
[2017-11-20] MEDS: SODIUM CHLORIDE FLUSH 0.9% 10 ML SYRINGE IVP SCH ×2 (08:33→18:05)
[2017-11-20] MEDS: POTASSIUM CHLOR 20 MEQ/100 ML 20 MEQ/100 ML BAG IV SCH ×2 (09:04→10:17)
[2017-11-20] MEDS: ENOXAPARIN 40 MG/0.4 ML SYRINGE SUBQ SCH (09:11)
[2017-11-20] MEDS: FAMOTIDINE 20 MG/50 ML 50 ML IV SCH ×2 (09:37→21:06)
[2017-11-20] MEDS: ASPIRIN EC 81 MG TABLET PO SCH (09:37)
[2017-11-20] MEDS: MULTIVITAMIN W/MINERALS TABLET PO SCH (09:37)
[2017-11-20] MEDS: NYSTATIN CREAM 15 GM TUBE TOP SCH ×2 (11:05→21:05)
--- NOTE | 2017-11-20 14:25 | PROVIDER PROGRESS NOTE ---
Assessment/Plan - Problem List (1) DKA (diabetic ketoacidoses) Qualifiers: Diabetes mellitus type: type 1 Diabetes mellitus complication detail: with coma Qualified Code(s): E10.11 - Type 1 diabetes mellitus with ketoacidosis with coma Assessment/Plan: Patient presented unresponsive in coma from diabetic ketoacidosis. Patient's blood glucose was 1406 on presentation with a pH of 6.9 and bicarb of 3.3. The patient's anion gap cannot be calculated by the computer. She had positive serum ketones. The patient was admitted to the intensive care unit with diabetic ketoacidosis and placed on an insulin drip. The patient has a long history of noncompliance and previous hospitalizations for diabetic ketoacidosis. Admitted to ICU Placed on insulin drip at 1unit/kg/hr Given IVFs Anion gap closed therefore patient placed on lantus 70 units and d5 with saline on 11/18/17 patient went back into DKA therefore was placed back on insulin drip On morning of 11/20/17 DKA resolved but patient still having confusion and delirium patient requiring ativan and haldol Continued home insulin dose 70 units lantus and 15 units novolog TID with SS insulin DM diet BG check QID This morning patient hypoglycemic and too lethargic to eat much given D50 will monitor her closely (2) Metabolic Encephalopathy Conclusion/Plan: Patient presented with a decreased level of consciousness in a comatose state due to diabetic ketoacidosis. Despite resolution in DKA patient having delirium and confusion and this morning is very sedated likely from haldol and ativan she has received If patients delirium and confusion persists once the sedation has worn off then need to consider possible infection although no fevers and normal WBC. Also need to consider possibility of brain damage from severe hyperglycemia and repeated drug use and repeat DKA. Also need to consider possible stroke given history of poorly controlled DM. If not improving patient will need CT/MRI and infectious work up. Patient in soft restraints due to aggressive and unsafe behavior (3) Hypothermia Conclusion/Plan: On presentation the patient's core body temperature was 30.0 C. The patient was very cold to touch. Likely she is hypothermic from being outside in the cold for an extended period of time. Resolved Qualifiers: Encounter type: initial encounter Qualified Code(s): T68.XXXA - Hypothermia, initial encounter (4) HANSA (acute kidney injury) Conclusion/Plan: The patient has acute kidney injury with a creatinine elevated up to 2.3. Patient's acute kidney injury is likely secondary to her severe dehydration from DKA. Resolved with IVFs (5) Elevated LFTs Conclusion/Plan: The patient does have elevated LFTs. The patient's bilirubin is elevated to 2.4 and AST is mildly elevated at 95 alk phos is 316. The patient has had elevated LFTs in the past when she has had DKA. Patient likely has some organ failure secondary to the severity of her DKA and that is why she has decreased level of consciousness, elevated lactic acid of 4.6, elevated creatinine of 2.3 and elevated LFTs. The patient has had a CT of her abdomen earlier this month therefore we do not see a need to repeat any imaging. Resolved (6) High anion gap metabolic acidosis Conclusion/Plan: The patient has a high anion gap metabolic acidosis. The patient's anion gap cannot be calculated by the computer at this time. The patient has a lactic acidosis of 4.6. The patient's metabolic acidosis is likely secondary to her diabetic ketoacidosis. Resolved (7) Hypokalemia Conclusion/Plan: K is 3.0 this am Will replace K per electrolyte protocol (8) Hypernatremia Conclusion/Plan: Resolved (9) Leukocytosis, unspecified Conclusion/Plan: The patient's white blood cell count is elevated at 15.8. This appears to be reactive given she is presenting with severe hypothermia and diabetic ketoacidosis. The patient does not appear to have any acute infection at this time which could be causing her leukocytosis or her DKA. The patient's chest x- ray was negative and her urine analysis is negative for infection. The patient does have a wound on her right third toe however this does not appear infected. Resolved with hydration Qualifiers: Leukocytosis type: other Qualified Code(s): D72.828 - Other elevated white blood cell count (10) Methamphetamine abuse Conclusion/Plan: The patient appears to be continuing to abuse methamphetamines as she is positive again for methamphetamines on urine tox. Counselled on need to quit. (11) Anemia Conclusion/Plan: Patients Hb dropped from 11.4 to 7.9 now improved to 8.6 Negative stool occult blood Likely from dilution Monitor PATIENT WILL LIKELY NEED TO BE HOSPITALIZED FOR 2-3 MORE DAYS - Current Meds Current Meds: Current Medications Generic Name Dose Route Start Last Admin Trade Name Freq PRN Reason Stop Dose Admin Amitriptyline HCl 25 mg 11/17/17 21:00 11/19/17 21:01 Elavil PO 25 mg HS SYLVIA Administration Aspirin 81 mg 11/18/17 09:00 11/20/17 09:37 Ecotrin PO Not Given DAILY SYLVIA Enoxaparin Sodium 40 mg 11/18/17 09:00 11/20/17 09:11 Lovenox SUBQ 40 mg DAILY SYLVIA Administration Dextrose 1,000 mls @ 100 mls/hr 11/19/17 07:00 11/20/17 05:26 D5w IV 100 mls/hr .Q10H SYLVIA Administration Insulin Aspart 15 unit 11/19/17 12:00 11/20/17 12:04 Novolog SUBQ Not Given TIDWM SYLVIA Insulin Aspart 3 - 11 unit 11/19/17 21:00 11/20/17 12:05 Novolog SUBQ 3 unit 0800,1200,1700,2100 SYLVIA Administration Protocol Insulin Glargine 70 unit 11/19/17 21:00 11/19/17 20:57 Lantus Solostar SUBQ 70 unit QPM SYLVIA Administration Lorazepam 2 mg 11/18/17 19:19 11/19/17 19:40 Ativan Inj (Vial) IVP 2 mg Q2H PRN Administration Anxiety Metoprolol Tartrate 5 mg 11/18/17 00:00 11/20/17 13:00 Lopressor Inj IVP 5 mg Q6HR SYLVIA Administration Multivitamins/Minerals 1 tab 11/18/17 13:00 11/20/17 09:37 Theragran M PO Not Given DAILYWM SYLVIA Nystatin 15 applic 11/17/17 21:00 11/20/17 11:05 Mycostatin Cream TOP 1 applic BID SYLVIA Administration Sodium Chloride 10 ml 11/17/17 17:00 11/20/17 08:33 Normal Saline Flush 0.9% IVP 10 ml 0100,0900,1700 SYLVIA Administration Sodium Chloride 10 ml 11/17/17 10:19 11/20/17 10:18 Normal Saline Flush 0.9% IVP 10 ml PRN PRN Administration NEEDED PER PROVIDER ORDERS - Lab Result Lab results reviewed: Yes Fish Bone Diagrams: 11/20/17 05:40 11/20/17 05:40 - Diagnostic Imaging Results Diagnostic Imaging Results: Final report reviewed - Additional Planning Condition/Complexity: Critical My Orders: My Active Orders 11/20/17 12:12 Famotidine 20 mg/50 ml [Pepcid 20 mg/50 ml] 50 ml IV BID 11/21/17 05:00 CBC - COMP BLD CT W/AUTO DIFF [HEME] DAILYLAB COMPREHENSIVE METABOLIC PANEL [CHEM] DAILYLAB MAGNESIUM [CHEM] DAILYLAB PHOSPHORUS [CHEM] DAILYLAB 11/22/17 05:00 CBC - COMP BLD CT W/AUTO DIFF [HEME] DAILYLAB COMPREHENSIVE METABOLIC PANEL [CHEM] DAILYLAB MAGNESIUM [CHEM] DAILYLAB PHOSPHORUS [CHEM] DAILYLAB 11/23/17 05:00 CBC - COMP BLD CT W/AUTO DIFF [HEME] DAILYLAB COMPREHENSIVE METABOLIC PANEL [CHEM] DAILYLAB MAGNESIUM [CHEM] DAILYLAB PHOSPHORUS [CHEM] DAILYLAB Plan Discussed with:: Patient Time Spent: 31-60 minutes Subjective - Subjective Patient Reports: Other (Lethargic and confused. Asking me to cut off her restraints. No fevers or chills.) Nursing Reports: Confused Objective Vital Signs: Vital Signs - 24 hr 11/19/17 11/19/17 11/19/17 15:00 16:00 17:00 Temperature 36.9 C Heart Rate Heart Rate [ 96 102 H 109 H Monitoring electrodes] Respiratory 12 18 18 Rate Blood Pressure Blood Pressure 128/79 143/100 H 166/112 H [Left Brachial artery] O2 Saturation 11/19/17 11/19/17 11/19/17 18:00 18:10 19:00 Temperature Heart Rate Heart Rate [ 91 109 H Monitoring electrodes] Respiratory 20 22 Rate Blood Pressure 146/91 H Blood Pressure 146/91 H 166/109 H [Left Brachial artery] O2 Saturation 11/19/17 11/19/17 11/19/17 20:22 20:26 21:00 Temperature 36.2 C L Heart Rate 96 Heart Rate [ 96 92 Monitoring electrodes] Respiratory 20 20 19 Rate Blood Pressure Blood Pressure 155/86 H 117/83 H [Left Brachial artery] O2 Saturation 94 97 11/19/17 11/19/17 11/19/17 22:00 23:00 23:22 Temperature Heart Rate Heart Rate [ 94 94 Monitoring electrodes] Respiratory 24 21 Rate Blood Pressure 136/95 H Blood Pressure 137/92 H 138/69 H [Left Brachial artery] O2 Saturation 99 97 11/20/17 11/20/17 11/20/17 00:00 01:00 02:00 Temperature 36.2 C L Heart Rate Heart Rate [ 84 84 91 Monitoring electrodes] Respiratory 22 23 20 Rate Blood Pressure Blood Pressure 129/86 H 125/93 H 125/88 H [Left Brachial artery] O2 Saturation 98 98 98 11/20/17 11/20/17 11/20/17 03:00 04:00 05:00 Temperature 36.1 C L Heart Rate Heart Rate [ 88 87 96 Monitoring electrodes] Respiratory 22 20 19 Rate Blood Pressure Blood Pressure 125/94 H 123/94 H 120/88 H [Left Brachial artery] O2 Saturation 100 98 99 11/20/17 11/20/17 11/20/17 05:26 06:00 07:00 Temperature Heart Rate Heart Rate [ 82 86 Monitoring electrodes] Respiratory 12 20 Rate Blood Pressure 120/88 H Blood Pressure 123/87 H 120/86 H [Left Brachial artery] O2 Saturation 98 96 11/20/17 11/20/17 11/20/17 08:00 09:21 09:22 Temperature 36.7 C Heart Rate Heart Rate [ 87 98 92 Monitoring electrodes] Respiratory 17 15 19 Rate Blood Pressure Blood Pressure 120/98 H 89/57 L 93/69 [Left Brachial artery] O2 Saturation 98 100 99 11/20/17 11/20/17 11/20/17 09:42 10:00 11:00 Temperature Heart Rate Heart Rate [ 94 100 97 Monitoring electrodes] Respiratory 25 H 17 11 L Rate Blood Pressure Blood Pressure 98/77 97/82 H 111/73 [Left Brachial artery] O2 Saturation 100 100 100 11/20/17 13:00 Temperature Heart Rate Heart Rate [ Monitoring electrodes] Respiratory Rate Blood Pressure 114/74 Blood Pressure [Left Brachial artery] O2 Saturation Oxygen O2 Source [Without Activity] Room air O2 Source Room air I&O (Last 24 Hrs): Intake and Output Totals x24h 11/18/17 11/19/17 11/20/17 23:59 23:59 23:59 Intake Total 3959.270 4255.334 2595.85 Output Total 3995 5325 2215 Balance -35.730 -1069.666 380.85 General: Other (Very drowsy, confused. Moving all extremities but slurring words and not making sense. No where near her baseline.) HEENT: Atraumatic, PERRLA, EOMI, Mucous membr. moist/pink Neck: Supple, No JVD, No thyromegaly, +2 carotid pulse wo bruit, No LAD Lymphatic: no adenopathy Neuro: Disoriented, Non Focal, CN 2-12 Grossly Intact, Other (Sedated and confused) Cardiovascular: Normal S1, Normal S2, No murmurs, Other (tachycardic) Respiratory: Chest non-tender, No respiratory distress, Breath sounds nml Abdomen: Normal bowel sounds, Soft, No tenderness, No hepatospenomegaly, No masses Extremities: No clubbing, No cyanosis, No edema, Normal pulses Skin: No rashes, No breakdown - Results Results: Laboratory Results WBC 3.6 x10^3/uL (4.8-10.8) L 11/20/17 05:40 RBC 3.54 10^6/uL (4.20-5.40) L 11/20/17 05:40 Hgb 8.6 g/dL (12.0-16.0) L 11/20/17 05:40 Hct 26.8 % (37.0-47.0) L 11/20/17 05:40 MCV 75.7 fL (81.0-99.0) L 11/20/17 05:40 MCH 24.1 pg (27.0-31.0) L 11/20/17 05:40 MCHC 31.9 g/dL (32.0-36.0) L 11/20/17 05:40 RDW 15.8 % (12.0-15.0) H 11/20/17 05:40 Plt Count 154 10^3/uL (130-450) 11/20/17 05:40 MPV 7.1 fL (7.9-10.8) L 11/20/17 05:40 Neut # (Auto) 1.5 10^3/uL (1.5-6.6) 11/20/17 05:40 Lymph # (Auto) 1.8 10^3/uL (1.5-3.5) 11/20/17 05:40 [place] # (Auto) 0.3 10^3/uL (0.0-1.0) 11/20/17 05:40 Eos # (Auto) 0.0 10^3/uL (0.0-0.7) 11/20/17 05:40 Baso # (Auto) 0.0 10^3/uL (0.0-0.1) 11/20/17 05:40 Absolute Nucleated RBC 0.01 x10^3/uL 11/20/17 05:40 Nucleated RBC % 0.2 /100WBC 11/20/17 05:40 PT 11.2 secs (9.9-12.6) 11/18/17 04:35 INR 1.0 (0.8-1.2) 11/18/17 04:35 Bld Gas Analysis Time 09:05 11/17/17 09:05 ABG pH 6.90 (7.35-7.45) L* 11/17/17 09:05 ABG pCO2 15 mmHg (34-45) L* 11/17/17 09:05 ABG pO2 209 mmHg (80-100) H* 11/17/17 09:05 ABG HCO3 2.8 mmol/L (22.0-26.0) L 11/17/17 09:05 ABG Total CO2 3.3 MMOL/L (21.0-29.0) L* 11/17/17 09:05 ABG O2 Saturation 99 % (94-98) H 11/17/17 09:05 ABG Base Excess -28.7 mmol/L (-2.0-3.0) L 11/17/17 09:05 Ilia Test UNKNOWN 11/17/17 09:05 VBG pH 7.393 (7.31-7.41) 11/20/17 05:40 VBG pCO2 24.6 mmHg (41-51) L 11/18/17 16:25 VBG pO2 46.6 mmHg (25-47) 11/18/17 16:25 VBG HCO3 14.3 mmol/L (23-28) L 11/18/17 16:25 VBG Total CO2 15.0 mmol/L (24-29) L 11/18/17 16:25 VBG O2 Saturation 82.8 % (60-80) H 11/18/17 16:25 VBG Base Excess -9.5 mmol/L (-2 - +2) L 11/18/17 16:25 Ionized Calcium 1.15 mmol/L (1.15-1.33) 11/20/17 05:40 Sodium 142 mmol/L (135-145) 11/20/17 05:40 Potassium 3.0 mmol/L (3.5-5.0) L 11/20/17 05:40 Chloride 102 mmol/L (101-111) 11/20/17 05:40 Carbon Dioxide 32 mmol/L (21-32) 11/20/17 05:40 Anion Gap 8.0 (6-13) 11/20/17 05:40 BUN 8 mg/dL (6-20) 11/20/17 05:40 Creatinine 0.4 mg/dL (0.4-1.0) 11/20/17 05:40 Estimated GFR (MDRD) 181 (>89) 11/20/17 05:40 Glucose 70 mg/dL (70-100) 11/20/17 05:40 POC Whole Bld Glucose 155 mg/dL (70 - 100) H 11/20/17 11:15 Glycated Hemoglobin 12.2 % (4.6-6.2) H 11/19/17 05:00 Estim Average Glucose 303 (70-100) H 11/19/17 05:00 Lactic Acid 1.4 mmol/L (0.5-2.2) 11/17/17 15:35 Calcium 8.5 mg/dL (8.5-10.3) 11/20/17 05:40 Phosphorus 2.7 mg/dL (2.5-4.6) 11/20/17 05:40 Magnesium 2.0 mg/dL (1.7-2.8) 11/20/17 05:40 Total Bilirubin 0.5 mg/dL (0.2-1.0) 11/20/17 05:40 AST 30 IU/L (10-42) 11/20/17 05:40 ALT 37 IU/L (10-60) 11/20/17 05:40 Alkaline Phosphatase 135 IU/L (42-121) H 11/20/17 05:40 Troponin I < 0.04 ng/mL (<0.49) 11/18/17 04:35 Total Protein 5.7 g/dL (6.7-8.2) L 11/20/17 05:40 Albumin 3.0 g/dL (3.2-5.5) L 11/20/17 05:40 Globulin 2.7 g/dL (2.1-4.2) 11/20/17 05:40 Albumin/Globulin Ratio 1.1 (1.0-2.2) 11/20/17 05:40 Lipase 64 U/L (22-51) H 11/17/17 08:30 Urine Color YELLOW 11/17/17 09:08 Urine Clarity CLEAR (CLEAR) 11/17/17 09:08 Urine pH 5.0 PH (5.0-7.5) 11/17/17 09:08 Ur Specific [place] 1.020 (1.002-1.030) 11/17/17 09:08 Urine Protein NEGATIVE mg/dL (NEGATIVE) 11/17/17 09:08 Urine Glucose (UA) >=1000 mg/dL (NEGATIVE) H 11/17/17 09:08 Urine Ketones 40 mg/dL (NEGATIVE) H 11/17/17 09:08 Urine Occult Blood TRACE-INTA (NEGATIVE) 11/17/17 09:08 Urine Nitrite NEGATIVE (NEGATIVE) 11/17/17 09:08 Urine Bilirubin NEGATIVE (NEGATIVE) 11/17/17 09:08 Urine Urobilinogen 0.2 (NORMAL) E.U./dL (NORMAL) 11/17/17 09:08 Ur Leukocyte Esterase NEGATIVE (NEGATIVE) 11/17/17 09:08 Ur Microscopic Review NOT INDICATED 11/17/17 09:08 Urine Culture Comments NOT INDICATED 11/17/17 09:08 Urine HCG, Qual NEGATIVE 11/17/17 09:08 Salicylates < 6.0 mg/dL 11/17/17 08:30 Urine Opiates Screen NEGATIVE (NEGATIVE) 11/17/17 09:08 Ur Oxycodone Screen NEGATIVE (NEGATIVE) 11/17/17 09:08 Urine Methadone Screen NEGATIVE (NEGATIVE) 11/17/17 09:08 Ur Propoxyphene Screen NEGATIVE (NEGATIVE) 11/17/17 09:08 Acetaminophen < 10 ug/mL (10-30) L 11/17/17 08:30 Ur Barbiturates Screen NEGATIVE (NEGATIVE) 11/17/17 09:08 Ur Tricyclics Screen NEGATIVE (NEGATIVE) 11/17/17 09:08 Ur Phencyclidine Scrn NEGATIVE (NEGATIVE) 11/17/17 09:08 Ur Amphetamine Screen POSITIVE (NEGATIVE) H 11/17/17 09:08 U Methamphetamines Scrn POSITIVE (NEGATIVE) H 11/17/17 09:08 U Benzodiazepines Scrn NEGATIVE (NEGATIVE) 11/17/17 09:08 Urine Cocaine Screen NEGATIVE (NEGATIVE) 11/17/17 09:08 U Cannabinoids Screen NEGATIVE (NEGATIVE) 11/17/17 09:08 Ethyl Alcohol < 5.0 mg/dL 11/17/17 08:30 Serum Ketones SMALL (NEGATIVE) H 11/19/17 09:55 - Procedures Procedures: Procedures DETACHMENT AT LEFT 4TH TOE, LOW, OPEN APPROACH (06/30/17) DETACHMENT AT RIGHT 1ST TOE, LOW, OPEN APPROACH (03/14/17) DETACHMENT AT RIGHT 2ND TOE, HIGH, OPEN APPROACH (06/30/17) DETACHMENT AT RIGHT 4TH TOE, HIGH, OPEN APPROACH (06/30/17) INSERT INFUSION DEV IN R INT JUGULAR VEIN, PERC (04/21/16) INSERTION OF INFUSION DEV INTO R SUBCLAV VEIN, PERC APPROACH (03/14/17) INSERTION OF INFUSION DEV INTO SUP VENA CAVA, PERC APPROACH (10/26/17) INSERTION OF INFUSION DEVICE INTO LOWER VEIN, PERC APPROACH (08/13/17) INSERTION OF INFUSION DEVICE INTO R ATRIUM, PERC APPROACH (09/27/17) TRANSFUSE NONAUT RED BLOOD CELLS IN PERIPH VEIN, PERC (01/22/17) ULTRASONOGRAPHY OF RIGHT JUGULAR VEINS, GUIDANCE (04/21/16) ABX Reporting Has patient been on IV antibiotics over the past 48 hours?: No Current Medications - Current Medications Current Medications: Active Medications Generic Name Dose Route Start Last Admin Trade Name Freq PRN Reason Stop Dose Admin Acetaminophen 650 mg 11/17/17 10:19 Tylenol PO Q4HR PRN Pain 1 to 4 Albuterol 2.5 mg 11/17/17 11:00 INH RTQ4H PRN Wheezing Amitriptyline HCl 25 mg 11/17/17 21:00 11/19/17 21:01 Elavil PO 25 mg HS SYLVIA Administration Aspirin 81 mg 11/18/17 09:00 11/20/17 09:37 Ecotrin PO Not Given DAILY SYLVIA Enoxaparin Sodium 40 mg 11/18/17 09:00 11/20/17 09:11 Lovenox SUBQ 40 mg DAILY SYLVIA Administration Dextrose 1,000 mls @ 100 mls/hr 11/19/17 07:00 11/20/17 05:26 D5w IV 100 mls/hr .Q10H SYLVIA Administration Famotidine 50 mls @ 100 mls/hr 11/20/17 12:12 Pepcid 20 Mg/50 Ml IV BID SYLVIA Insulin Aspart 15 unit 11/19/17 12:00 11/20/17 12:04 Novolog SUBQ Not Given TIDWM SYLVIA Insulin Aspart 3 - 11 unit 11/19/17 21:00 11/20/17 12:05 Novolog SUBQ 3 unit 0800,1200,1700,2100 SYLVIA Administration Protocol Insulin Glargine 70 unit 11/19/17 21:00 11/19/17 20:57 Lantus Solostar SUBQ 70 unit QPM SYLVIA Administration Lorazepam 2 mg 11/18/17 19:19 11/19/17 19:40 Ativan Inj (Vial) IVP 2 mg Q2H PRN Administration Anxiety Metoprolol Tartrate 5 mg 11/18/17 00:00 11/20/17 13:00 Lopressor Inj IVP 5 mg Q6HR SYLVIA Administration Multivitamins/Minerals 1 tab 11/18/17 13:00 11/20/17 09:37 Theragran M PO Not Given DAILYWM SYLVIA Nystatin 15 applic 11/17/17 21:00 11/20/17 11:05 Mycostatin Cream TOP 1 applic BID SYLVIA Administration Ondansetron HCl 4 mg 11/17/17 10:19 Zofran Inj IVP Q6HR PRN Nausea / Vomiting Polyethylene Glycol 17 gm 11/18/17 01:48 Miralax PO DAILY PRN Bowel Protocol Prochlorperazine Edisylate 10 mg 11/17/17 10:19 Compazine Inj IVP Q6HR PRN Nausea / Vomiting Promethazine HCl 25 mg 11/17/17 10:19 Phenergan Inj IM Q6HR PRN Nausea / Vomiting Sodium Chloride 10 ml 11/17/17 17:00 11/20/17 08:33 Normal Saline Flush 0.9% IVP 10 ml 0100,0900,1700 SYLVIA Administration Sodium Chloride 10 ml 11/17/17 10:19 11/20/17 10:18 Normal Saline Flush 0.9% IVP 10 ml PRN PRN Administration NEEDED PER PROVIDER ORDERS
[2017-11-20] MEDS ORDERED: traMADol 50 MG TABLET PO PRN (20:06)
[2017-11-20] MEDS: INSULIN GLARGINE 300 UNIT/3 ML PEN SUBQ SCH (20:59)
[2017-11-20] MEDS: cloNIDine 0.1 MG TABLET PO SCH (21:05)
[2017-11-20] MEDS: OXYBUTYNIN 5MG TABLET PO SCH (21:05)
[2017-11-20] MEDS: GABAPENTIN 300 MG CAPSULE PO SCH (21:05)
[2017-11-20] MEDS: AMITRIPTYLINE 25 MG TABLET PO SCH (21:05)
[2017-11-20] MEDS: METOPROLOL SUCCINATE 25 MG TABLET PO SCH (21:05)
[2017-11-20] MEDS: CILOSTAZOL 100 MG TABLET PO SCH (21:05)
[2017-11-21] MEDS: SODIUM CHLORIDE FLUSH 0.9% 10 ML SYRINGE IVP SCH ×3 (02:24→16:26)
[2017-11-21] MEDS: GABAPENTIN 300 MG CAPSULE PO SCH ×3 (05:05→21:40)
[2017-11-21 05:36] LABS: BASOPHILS % (AUTO) 0.3 %; EOSINOPHILS # (AUTO) 0.1 10^3/uL (0.0-0.7); EOSINOPHILS % (AUTO) 2.4 %; HGB - HEMOGLOBIN 9.5 g/dL (12.0-16.0); LYMPHOCYTES # (AUTO) 2.1 10^3/uL (1.5-3.5); LYMPHOCYTES % (AUTO) 53.8 %; MEAN CORPUSCULAR HEMOGLOBIN 24.4 pg (27.0-31.0); MEAN CORPUSCULAR HGB CONC 32.2 g/dL (32.0-36.0); MEAN CORPUSCULAR VOLUME 75.7 fL (81.0-99.0); MEAN PLATELET VOLUME 7.5 fL (7.9-10.8); MONOCYTES # (AUTO) 0.3 10^3/uL (0.0-1.0); MONOCYTES % (AUTO) 7.1 %; NEUTROPHILS # (AUTO) 1.4 10^3/uL (1.5-6.6); NEUTROPHILS % (AUTO) 36.4 %; PLT - PLATELET COUNT 146 10^3/uL (130-450); RED BLOOD COUNT 3.88 10^6/uL (4.20-5.40); RED CELL DISTRIBUTION WIDTH 15.9 % (12.0-15.0); WHITE BLOOD COUNT 3.9 x10^3/uL (4.8-10.8)
[2017-11-21 05:50] LABS: ALBUMIN 3.1 g/dL (3.2-5.5); ALBUMIN/GLOBULIN RATIO 1.1 (1.0-2.2); BILIRUBIN,TOTAL 0.6 mg/dL (0.2-1.0); CALCIUM 9.2 mg/dL (8.5-10.3); CREATININE 0.4 mg/dL (0.4-1.0); MAGNESIUM 2.1 mg/dL (1.7-2.8); PHOSPHORUS 4.7 mg/dL (2.5-4.6)
[2017-11-21] MEDS: INSULIN ASPART 300 UNIT/3 ML PEN SUBQ SCH ×7 (08:21→20:31)
[2017-11-21] MEDS: ASPIRIN EC 81 MG TABLET PO SCH (08:22)
[2017-11-21] MEDS: MULTIVITAMIN W/MINERALS TABLET PO SCH (08:24)
[2017-11-21] MEDS: CILOSTAZOL 100 MG TABLET PO SCH ×2 (08:38→20:30)
[2017-11-21] MEDS: cloNIDine 0.1 MG TABLET PO SCH ×2 (08:38→20:30)
[2017-11-21] MEDS: DEXTROSE 5% 1,000 ML IV SCH ×2 (08:39→15:33)
[2017-11-21] MEDS: diltiaZEM CD 120 MG CAPSULE PO SCH (08:40)
[2017-11-21] MEDS: METOPROLOL SUCCINATE 25 MG TABLET PO SCH ×2 (08:40→20:29)
[2017-11-21] MEDS: OXYBUTYNIN 5MG TABLET PO SCH ×2 (08:40→20:30)
[2017-11-21] MEDS: FAMOTIDINE 20 MG/50 ML 50 ML IV SCH (08:42)
[2017-11-21] MEDS: ENOXAPARIN 40 MG/0.4 ML SYRINGE SUBQ SCH (08:42)
[2017-11-21] MEDS: DULoxetine 20 MG CAPSULE PO SCH (10:06)
[2017-11-21] MEDS: NYSTATIN CREAM 15 GM TUBE TOP SCH ×2 (10:12→20:32)
[2017-11-21] MEDS ORDERED: POTASSIUM CHLORIDE 20 MEQ TABLET PO SCH (14:50)
[2017-11-21] MEDS: ACETAMINOPHEN 325 MG TABLET PO PRN (15:59)
--- NOTE | 2017-11-21 16:09 | PROVIDER PROGRESS NOTE ---
Assessment/Plan - Problem List (1) Altered mental status Qualifiers: Altered mental status type: unspecified Qualified Code(s): R41.82 - Altered mental status, unspecified Assessment/Plan: The patient has been intermittently awake for meals then goes back to being soundly asleep. This is her usual picture recovering from Meth abuse. Alternatively, her severe acidosis this time may have caused a new worsening of mental status and alertness. Monitor mental status and support with providing cues, etc. (2) Tachycardia Assessment/Plan: Pt pulled out her central iv line, therefore iv fluids stopped. Since Pt eating, will try hydration with oral fluids. Since she has exophthalmous, will check TSH for hyperthyroidism as cause of tachycardia. Will stop Albuterol, which may also add to tachy. Will start Xoponex prn. (3) Homeless single person Assessment/Plan: [employer] is trying to get her accepted for detox from Meth and drug abuse. (4) Anemia Assessment/Plan: Probably anemia of chronic disease, Will check B12, Folate and Iron panel and replace if needed. (5) Methamphetamine abuse Assessment/Plan: As in #1 and #3 (6) Borderline personality disorder Assessment/Plan: The patient usually is agitated and obstinate and acts out, when she is awake and alert. This has made for difficulty with nursing care, acceptance to LTACs and SNFs in the past. (7) DKA (diabetic ketoacidoses) Qualifiers: Diabetes mellitus type: type 1 Diabetes mellitus complication detail: with coma Qualified Code(s): E10.11 - Type 1 diabetes mellitus with ketoacidosis with coma Assessment/Plan: Resolved (8) PVD (peripheral vascular disease) Assessment/Plan: No current new ischemic digits. - Current Meds Current Meds: Current Medications Generic Name Dose Route Start Last Admin Trade Name Freq PRN Reason Stop Dose Admin Acetaminophen 650 mg 11/17/17 10:19 11/21/17 15:59 Tylenol PO 650 mg Q4HR PRN Administration Pain 1 to 4 Amitriptyline HCl 25 mg 11/17/17 21:00 11/20/17 21:05 Elavil PO 25 mg HS SYLVIA Administration Aspirin 81 mg 11/18/17 09:00 11/21/17 08:22 Ecotrin PO 81 mg DAILY SYLVIA Administration Cilostazol 100 mg 11/20/17 21:00 11/21/17 08:38 Pletal PO 100 mg BID SYLVIA Administration Clonidine HCl 0.1 mg 11/20/17 21:00 11/21/17 08:38 Catapres PO 0.1 mg BID SYLVIA Administration Diltiazem HCl 120 mg 11/21/17 09:00 11/21/17 08:40 Cardizem Cd PO 120 mg DAILY SYLVIA Administration Duloxetine HCl 60 mg 11/21/17 09:00 11/21/17 10:06 Cymbalta PO 60 mg DAILY SYLVIA Administration Enoxaparin Sodium 40 mg 11/18/17 09:00 11/21/17 08:42 Lovenox SUBQ Not Given DAILY SYLVIA Gabapentin 900 mg 11/20/17 22:00 11/21/17 14:22 Neurontin PO 900 mg TID SYLVIA Administration Dextrose 1,000 mls @ 100 mls/hr 11/19/17 07:00 11/21/17 15:33 D5w IV Not Given .Q10H SYLVIA Famotidine 50 mls @ 100 mls/hr 11/20/17 12:12 11/21/17 08:42 Pepcid 20 Mg/50 Ml IV Not Given BID SYLVIA Insulin Aspart 15 unit 11/19/17 12:00 11/21/17 11:51 Novolog SUBQ 15 unit TIDWM SYLVIA Administration Insulin Aspart 3 - 11 unit 11/19/17 21:00 11/21/17 11:52 Novolog SUBQ 5 unit 0800,1200,1700,2100 SYLVIA Administration Protocol Insulin Glargine 70 unit 11/19/17 21:00 11/20/17 20:59 Lantus Solostar SUBQ 70 unit QPM SYLVIA Administration Lorazepam 2 mg 11/18/17 19:19 11/19/17 19:40 Ativan Inj (Vial) IVP 2 mg Q2H PRN Administration Anxiety Metoprolol Succinate 25 mg 11/20/17 21:00 11/21/17 08:40 Toprol Xl PO 25 mg BID SYLVIA Administration Multivitamins/Minerals 1 tab 11/18/17 13:00 11/21/17 08:24 Theragran M PO 1 tab DAILYWM SYLVIA Administration Nystatin 15 applic 11/17/17 21:00 11/21/17 10:12 Mycostatin Cream TOP Not Given BID SYLVIA Oxybutynin Chloride 5 mg 11/20/17 21:00 11/21/17 08:40 Ditropan PO 5 mg BID SYLVIA Administration Sodium Chloride 10 ml 11/17/17 17:00 11/21/17 08:43 Normal Saline Flush 0.9% IVP Not Given 0100,0900,1700 SYLVIA Sodium Chloride 10 ml 11/17/17 10:19 11/20/17 10:18 Normal Saline Flush 0.9% IVP 10 ml PRN PRN Administration NEEDED PER PROVIDER ORDERS - Lab Result Fish Bone Diagrams: 11/22/17 05:12 11/22/17 05:12 Subjective - Subjective Patient Reports: Other (Somnolent) Nursing Reports: Other (States she is hungry, eats then falls asleep.) Objective Vital Signs: Vital Signs - 24 hr 11/20/17 11/20/17 11/20/17 16:23 17:00 18:00 Temperature Heart Rate Heart Rate [ 103 H 99 105 H Monitoring electrodes] Heart Rate [ Sitting (After 1 Minute)] Heart Rate [ Standing (After 1 Minute)] Heart Rate [ Supine] Respiratory 12 22 12 Rate Blood Pressure 124/75 139/98 H 145/88 H [Left Brachial artery] Blood Pressure [Right Brachial artery] Blood Pressure [Sitting (After 1 Minute)] Blood Pressure [Standing ( After 1 Minute) ] Blood Pressure [Supine] O2 Saturation 100 98 11/20/17 11/20/17 11/20/17 19:00 20:00 20:05 Temperature 36.2 C L Heart Rate 119 H Heart Rate [ 105 H 118 H Monitoring electrodes] Heart Rate [ Sitting (After 1 Minute)] Heart Rate [ Standing (After 1 Minute)] Heart Rate [ Supine] Respiratory 22 19 13 Rate Blood Pressure 138/95 H 136/92 H [Left Brachial artery] Blood Pressure [Right Brachial artery] Blood Pressure [Sitting (After 1 Minute)] Blood Pressure [Standing ( After 1 Minute) ] Blood Pressure [Supine] O2 Saturation 100 11/20/17 11/20/17 11/20/17 21:00 22:00 23:00 Temperature Heart Rate Heart Rate [ 107 H 120 H 121 H Monitoring electrodes] Heart Rate [ Sitting (After 1 Minute)] Heart Rate [ Standing (After 1 Minute)] Heart Rate [ Supine] Respiratory 18 21 22 Rate Blood Pressure 134/94 H 133/79 H 102/66 [Left Brachial artery] Blood Pressure [Right Brachial artery] Blood Pressure [Sitting (After 1 Minute)] Blood Pressure [Standing ( After 1 Minute) ] Blood Pressure [Supine] O2 Saturation 97 11/21/17 11/21/17 11/21/17 00:00 01:00 02:00 Temperature Heart Rate Heart Rate [ 119 H 114 H 112 H Monitoring electrodes] Heart Rate [ Sitting (After 1 Minute)] Heart Rate [ Standing (After 1 Minute)] Heart Rate [ Supine] Respiratory 9 L 21 17 Rate Blood Pressure 97/70 100/71 92/64 [Left Brachial artery] Blood Pressure [Right Brachial artery] Blood Pressure [Sitting (After 1 Minute)] Blood Pressure [Standing ( After 1 Minute) ] Blood Pressure [Supine] O2 Saturation 11/21/17 11/21/17 11/21/17 03:00 04:00 05:00 Temperature 36.2 C L 36.4 C L Heart Rate Heart Rate [ 108 H 107 H 106 H Monitoring electrodes] Heart Rate [ Sitting (After 1 Minute)] Heart Rate [ Standing (After 1 Minute)] Heart Rate [ Supine] Respiratory 20 21 20 Rate Blood Pressure 98/68 91/63 95/72 [Left Brachial artery] Blood Pressure [Right Brachial artery] Blood Pressure [Sitting (After 1 Minute)] Blood Pressure [Standing ( After 1 Minute) ] Blood Pressure [Supine] O2 Saturation 96 11/21/17 11/21/17 11/21/17 06:00 07:00 08:00 Temperature 36.7 C Heart Rate Heart Rate [ 110 H 95 94 Monitoring electrodes] Heart Rate [ Sitting (After 1 Minute)] Heart Rate [ Standing (After 1 Minute)] Heart Rate [ Supine] Respiratory 18 16 20 Rate Blood Pressure 97/73 102/73 93/70 [Left Brachial artery] Blood Pressure [Right Brachial artery] Blood Pressure [Sitting (After 1 Minute)] Blood Pressure [Standing ( After 1 Minute) ] Blood Pressure [Supine] O2 Saturation 95 96 11/21/17 11/21/17 11/21/17 09:00 10:00 10:21 Temperature Heart Rate Heart Rate [ 97 99 Monitoring electrodes] Heart Rate [ Sitting (After 1 Minute)] Heart Rate [ Standing (After 1 Minute)] Heart Rate [ 100 Supine] Respiratory 18 17 Rate Blood Pressure 95/81 H 98/69 [Left Brachial artery] Blood Pressure [Right Brachial artery] Blood Pressure [Sitting (After 1 Minute)] Blood Pressure [Standing ( After 1 Minute) ] Blood Pressure 109/73 [Supine] O2 Saturation 96 96 11/21/17 11/21/17 11/21/17 10:22 10:23 11:00 Temperature Heart Rate Heart Rate [ 102 H Monitoring electrodes] Heart Rate [ 111 H Sitting (After 1 Minute)] Heart Rate [ 108 H Standing (After 1 Minute)] Heart Rate [ Supine] Respiratory 17 Rate Blood Pressure 100/65 [Left Brachial artery] Blood Pressure [Right Brachial artery] Blood Pressure 89/64 L [Sitting (After 1 Minute)] Blood Pressure 100/70 [Standing ( After 1 Minute) ] Blood Pressure [Supine] O2 Saturation 96 11/21/17 11/21/17 11/21/17 12:00 13:00 14:00 Temperature 36.7 C Heart Rate Heart Rate [ 120 H 120 H 132 H Monitoring electrodes] Heart Rate [ Sitting (After 1 Minute)] Heart Rate [ Standing (After 1 Minute)] Heart Rate [ Supine] Respiratory 25 H 21 23 Rate Blood Pressure 139/81 H 108/73 95/67 [Left Brachial artery] Blood Pressure [Right Brachial artery] Blood Pressure [Sitting (After 1 Minute)] Blood Pressure [Standing ( After 1 Minute) ] Blood Pressure [Supine] O2 Saturation 96 96 96 11/21/17 11/21/17 11/21/17 14:46 15:01 16:00 Temperature 36.7 C 37.4 C Heart Rate 123 H Heart Rate [ 123 H 123 H Monitoring electrodes] Heart Rate [ Sitting (After 1 Minute)] Heart Rate [ Standing (After 1 Minute)] Heart Rate [ Supine] Respiratory 18 18 16 Rate Blood Pressure 93/59 L [Left Brachial artery] Blood Pressure 108/68 [Right Brachial artery] Blood Pressure [Sitting (After 1 Minute)] Blood Pressure [Standing ( After 1 Minute) ] Blood Pressure [Supine] O2 Saturation 96 96 97 Oxygen O2 Source [Without Activity] Room air O2 Source Room air I&O (Last 24 Hrs): Intake and Output Totals x24h 11/19/17 11/20/17 11/21/17 23:59 23:59 23:59 Intake Total 4255.334 6846.183 1320 Output Total 5325 3016 Balance -6493.819 2072.183 1320 General: Other (Somnolent) HEENT: Other (Pale, moist mucosa, (+) exophthalmous.) Neck: Supple Neuro: Other (Obtunded) Cardiovascular: Other (Tachy) Respiratory: No respiratory distress Abdomen: Soft Extremities: No edema, Other (Old toe amputations bilaterally) - Results Results: Laboratory Results WBC 3.9 x10^3/uL (4.8-10.8) L 11/21/17 05:02 RBC 3.88 10^6/uL (4.20-5.40) L 11/21/17 05:02 Hgb 9.5 g/dL (12.0-16.0) L 11/21/17 05:02 Hct 29.4 % (37.0-47.0) L 11/21/17 05:02 MCV 75.7 fL (81.0-99.0) L 11/21/17 05:02 MCH 24.4 pg (27.0-31.0) L 11/21/17 05:02 MCHC 32.2 g/dL (32.0-36.0) 11/21/17 05:02 RDW 15.9 % (12.0-15.0) H 11/21/17 05:02 Plt Count 146 10^3/uL (130-450) 11/21/17 05:02 MPV 7.5 fL (7.9-10.8) L 11/21/17 05:02 Neut # (Auto) 1.4 10^3/uL (1.5-6.6) L 11/21/17 05:02 Lymph # (Auto) 2.1 10^3/uL (1.5-3.5) 11/21/17 05:02 [place] # (Auto) 0.3 10^3/uL (0.0-1.0) 11/21/17 05:02 Eos # (Auto) 0.1 10^3/uL (0.0-0.7) 11/21/17 05:02 Baso # (Auto) 0.0 10^3/uL (0.0-0.1) 11/21/17 05:02 Absolute Nucleated RBC 0.01 x10^3/uL 11/21/17 05:02 Nucleated RBC % 0.2 /100WBC 11/21/17 05:02 PT 11.2 secs (9.9-12.6) 11/18/17 04:35 INR 1.0 (0.8-1.2) 11/18/17 04:35 Bld Gas Analysis Time 09:05 11/17/17 09:05 ABG pH 6.90 (7.35-7.45) L* 11/17/17 09:05 ABG pCO2 15 mmHg (34-45) L* 11/17/17 09:05 ABG pO2 209 mmHg (80-100) H* 11/17/17 09:05 ABG HCO3 2.8 mmol/L (22.0-26.0) L 11/17/17 09:05 ABG Total CO2 3.3 MMOL/L (21.0-29.0) L* 11/17/17 09:05 ABG O2 Saturation 99 % (94-98) H 11/17/17 09:05 ABG Base Excess -28.7 mmol/L (-2.0-3.0) L 11/17/17 09:05 Ilia Test UNKNOWN 11/17/17 09:05 VBG pH 7.393 (7.31-7.41) 11/20/17 05:40 VBG pCO2 24.6 mmHg (41-51) L 11/18/17 16:25 VBG pO2 46.6 mmHg (25-47) 11/18/17 16:25 VBG HCO3 14.3 mmol/L (23-28) L 11/18/17 16:25 VBG Total CO2 15.0 mmol/L (24-29) L 11/18/17 16:25 VBG O2 Saturation 82.8 % (60-80) H 11/18/17 16:25 VBG Base Excess -9.5 mmol/L (-2 - +2) L 11/18/17 16:25 Ionized Calcium 1.15 mmol/L (1.15-1.33) 11/20/17 05:40 Sodium 142 mmol/L (135-145) 11/21/17 05:02 Potassium 3.5 mmol/L (3.5-5.0) 11/21/17 05:02 Chloride 103 mmol/L (101-111) 11/21/17 05:02 Carbon Dioxide 29 mmol/L (21-32) 11/21/17 05:02 Anion Gap 10.0 (6-13) 11/21/17 05:02 BUN 15 mg/dL (6-20) 11/21/17 05:02 Creatinine 0.4 mg/dL (0.4-1.0) 11/21/17 05:02 Estimated GFR (MDRD) 181 (>89) 11/21/17 05:02 Glucose 64 mg/dL (70-100) L 11/21/17 05:02 POC Whole Bld Glucose 205 mg/dL (70 - 100) H 11/21/17 11:43 Glycated Hemoglobin 12.2 % (4.6-6.2) H 11/19/17 05:00 Estim Average Glucose 303 (70-100) H 11/19/17 05:00 Lactic Acid 1.4 mmol/L (0.5-2.2) 11/17/17 15:35 Calcium 9.2 mg/dL (8.5-10.3) 11/21/17 05:02 Phosphorus 4.7 mg/dL (2.5-4.6) H 11/21/17 05:02 Magnesium 2.1 mg/dL (1.7-2.8) 11/21/17 05:02 Total Bilirubin 0.6 mg/dL (0.2-1.0) 11/21/17 05:02 AST 53 IU/L (10-42) H 11/21/17 05:02 ALT 40 IU/L (10-60) 11/21/17 05:02 Alkaline Phosphatase 148 IU/L (42-121) H 11/21/17 05:02 Troponin I < 0.04 ng/mL (<0.49) 11/18/17 04:35 Total Protein 6.0 g/dL (6.7-8.2) L 11/21/17 05:02 Albumin 3.1 g/dL (3.2-5.5) L 11/21/17 05:02 Globulin 2.9 g/dL (2.1-4.2) 11/21/17 05:02 Albumin/Globulin Ratio 1.1 (1.0-2.2) 11/21/17 05:02 Lipase 64 U/L (22-51) H 11/17/17 08:30 Urine Color YELLOW 11/17/17 09:08 Urine Clarity CLEAR (CLEAR) 11/17/17 09:08 Urine pH 5.0 PH (5.0-7.5) 11/17/17 09:08 Ur Specific [place] 1.020 (1.002-1.030) 11/17/17 09:08 Urine Protein NEGATIVE mg/dL (NEGATIVE) 11/17/17 09:08 Urine Glucose (UA) >=1000 mg/dL (NEGATIVE) H 11/17/17 09:08 Urine Ketones 40 mg/dL (NEGATIVE) H 11/17/17 09:08 Urine Occult Blood TRACE-INTA (NEGATIVE) 11/17/17 09:08 Urine Nitrite NEGATIVE (NEGATIVE) 11/17/17 09:08 Urine Bilirubin NEGATIVE (NEGATIVE) 11/17/17 09:08 Urine Urobilinogen 0.2 (NORMAL) E.U./dL (NORMAL) 11/17/17 09:08 Ur Leukocyte Esterase NEGATIVE (NEGATIVE) 11/17/17 09:08 Ur Microscopic Review NOT INDICATED 11/17/17 09:08 Urine Culture Comments NOT INDICATED 11/17/17 09:08 Urine HCG, Qual NEGATIVE 11/17/17 09:08 Salicylates < 6.0 mg/dL 11/17/17 08:30 Urine Opiates Screen NEGATIVE (NEGATIVE) 11/17/17 09:08 Ur Oxycodone Screen NEGATIVE (NEGATIVE) 11/17/17 09:08 Urine Methadone Screen NEGATIVE (NEGATIVE) 11/17/17 09:08 Ur Propoxyphene Screen NEGATIVE (NEGATIVE) 11/17/17 09:08 Acetaminophen < 10 ug/mL (10-30) L 11/17/17 08:30 Ur Barbiturates Screen NEGATIVE (NEGATIVE) 11/17/17 09:08 Ur Tricyclics Screen NEGATIVE (NEGATIVE) 11/17/17 09:08 Ur Phencyclidine Scrn NEGATIVE (NEGATIVE) 11/17/17 09:08 Ur Amphetamine Screen POSITIVE (NEGATIVE) H 11/17/17 09:08 U Methamphetamines Scrn POSITIVE (NEGATIVE) H 11/17/17 09:08 U Benzodiazepines Scrn NEGATIVE (NEGATIVE) 11/17/17 09:08 Urine Cocaine Screen NEGATIVE (NEGATIVE) 11/17/17 09:08 U Cannabinoids Screen NEGATIVE (NEGATIVE) 11/17/17 09:08 Ethyl Alcohol < 5.0 mg/dL 11/17/17 08:30 Serum Ketones SMALL (NEGATIVE) H 11/19/17 09:55 - Procedures Procedures: Procedures DETACHMENT AT LEFT 4TH TOE, LOW, OPEN APPROACH (06/30/17) DETACHMENT AT RIGHT 1ST TOE, LOW, OPEN APPROACH (03/14/17) DETACHMENT AT RIGHT 2ND TOE, HIGH, OPEN APPROACH (06/30/17) DETACHMENT AT RIGHT 4TH TOE, HIGH, OPEN APPROACH (06/30/17) INSERT INFUSION DEV IN R INT JUGULAR VEIN, PERC (04/21/16) INSERTION OF INFUSION DEV INTO R SUBCLAV VEIN, PERC APPROACH (03/14/17) INSERTION OF INFUSION DEV INTO SUP VENA CAVA, PERC APPROACH (10/26/17) INSERTION OF INFUSION DEVICE INTO LOWER VEIN, PERC APPROACH (08/13/17) INSERTION OF INFUSION DEVICE INTO R ATRIUM, PERC APPROACH (09/27/17) TRANSFUSE NONAUT RED BLOOD CELLS IN PERIPH VEIN, PERC (01/22/17) ULTRASONOGRAPHY OF RIGHT JUGULAR VEINS, GUIDANCE (04/21/16)
[2017-11-21] MEDS: AMITRIPTYLINE 25 MG TABLET PO SCH (20:30)
[2017-11-21] MEDS: INSULIN GLARGINE 300 UNIT/3 ML PEN SUBQ SCH (20:42)
[2017-11-21] MEDS ORDERED: INSULIN GLARGINE 300 UNIT/3 ML PEN SUBQ SCH (21:00)
[2017-11-21] MEDS: FAMOTIDINE 20 MG TABLET PO SCH (21:40)
[2017-11-21] MEDS: ONDANSETRON ODT 4 MG TABLET TL PRN (21:41)
[2017-11-21] MEDS: LORazepam 1 MG TABLET PO PRN (23:20)
[2017-11-22] MEDS: SODIUM CHLORIDE FLUSH 0.9% 10 ML SYRINGE IVP SCH ×3 (02:00→15:50)
[2017-11-22 05:54] LABS: BASOPHILS % (AUTO) 0.5 %; EOSINOPHILS # (AUTO) 0.1 10^3/uL (0.0-0.7); EOSINOPHILS % (AUTO) 2.6 %; HGB - HEMOGLOBIN 8.7 g/dL (12.0-16.0); LYMPHOCYTES % (AUTO) 54.9 %; MEAN CORPUSCULAR HEMOGLOBIN 24.6 pg (27.0-31.0); MEAN CORPUSCULAR HGB CONC 32.5 g/dL (32.0-36.0); MEAN CORPUSCULAR VOLUME 75.6 fL (81.0-99.0); MEAN PLATELET VOLUME 8.1 fL (7.9-10.8); MONOCYTES # (AUTO) 0.4 10^3/uL (0.0-1.0); NEUTROPHILS # (AUTO) 1.9 10^3/uL (1.5-6.6); PLT - PLATELET COUNT 160 10^3/uL (130-450); RED BLOOD COUNT 3.55 10^6/uL (4.20-5.40); WHITE BLOOD COUNT 5.4 x10^3/uL (4.8-10.8)
[2017-11-22 06:11] LABS: BILIRUBIN,TOTAL 0.4 mg/dL (0.2-1.0); CREATININE 0.6 mg/dL (0.4-1.0); MAGNESIUM 1.9 mg/dL (1.7-2.8); PHOSPHORUS 4.6 mg/dL (2.5-4.6); TOTAL PROTEIN 5.9 g/dL (6.7-8.2)
[2017-11-22] MEDS: GABAPENTIN 300 MG CAPSULE PO SCH ×3 (06:58→22:00)
[2017-11-22] MEDS: INSULIN ASPART 300 UNIT/3 ML PEN SUBQ SCH ×7 (08:28→22:01)
[2017-11-22] MEDS: cloNIDine 0.1 MG TABLET PO SCH (08:42)
[2017-11-22] MEDS ORDERED: LEVALBUTEROL 1.25 MG/3 ML NEB INH PRN (08:49)
[2017-11-22] MEDS: ENOXAPARIN 40 MG/0.4 ML SYRINGE SUBQ SCH ×2 (08:52→08:56)
[2017-11-22] MEDS: ASPIRIN EC 81 MG TABLET PO SCH (08:52)
[2017-11-22] MEDS: DULoxetine 20 MG CAPSULE PO SCH (08:53)
[2017-11-22] MEDS: FAMOTIDINE 20 MG TABLET PO SCH ×2 (08:53→22:00)
[2017-11-22] MEDS: MULTIVITAMIN W/MINERALS TABLET PO SCH (08:53)
[2017-11-22] MEDS: OXYBUTYNIN 5MG TABLET PO SCH ×2 (08:53→22:00)
[2017-11-22 09:51] LABS: % IRON SATURATION 7 % (20-50); IRON 25 ug/dL (28-170); TOTAL IRON BINDING CAPACITY 367 ug/dL (250-450); TRANSFERRIN 262 mg/dL (192-382)
[2017-11-22 10:02] LABS: FOLATE 6.51 ng/mL (5.90 - >24.8)
[2017-11-22] MEDS: METOPROLOL SUCCINATE 25 MG TABLET PO SCH ×2 (10:27→22:00)
[2017-11-22] MEDS: diltiaZEM CD 120 MG CAPSULE PO SCH (10:27)
[2017-11-22] MEDS: CILOSTAZOL 100 MG TABLET PO SCH ×2 (10:36→22:00)
[2017-11-22] MEDS: NYSTATIN CREAM 15 GM TUBE TOP SCH ×2 (10:37→22:01)
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
[2017-11-22] MEDS ORDERED: traMADol 50 MG TABLET PO PRN (13:26)
[2017-11-22] MEDS: AMITRIPTYLINE 25 MG TABLET PO SCH (22:00)
[2017-11-22] MEDS: traMADol 50 MG TABLET PO PRN (22:01)
[2017-11-22] MEDS: INSULIN GLARGINE 300 UNIT/3 ML PEN SUBQ SCH (22:02)
[2017-11-22] MEDS: ONDANSETRON ODT 4 MG TABLET TL PRN (22:06)
[2017-11-22] MEDS: LORazepam 1 MG TABLET PO PRN (22:47)
[2017-11-23] MEDS: ACETAMINOPHEN 325 MG TABLET PO PRN ×3 (00:51→23:44)
[2017-11-23] MEDS ORDERED: KETOROLAC 30 MG/ML VIAL IVP STA (01:13)
[2017-11-23] MEDS: IBUPROFEN 800 MG TABLET PO PRN ×2 (01:50→17:16)
[2017-11-23] MEDS: traMADol 50 MG TABLET PO PRN ×3 (04:04→22:50)
[2017-11-23] MEDS: GABAPENTIN 300 MG CAPSULE PO SCH ×3 (05:14→21:37)
[2017-11-23 06:46] LABS: BASOPHILS # (AUTO) 0.1 10^3/uL (0.0-0.1); BASOPHILS % (AUTO) 1.2 %; EOSINOPHILS # (AUTO) 0.2 10^3/uL (0.0-0.7); EOSINOPHILS % (AUTO) 2.9 %; HGB - HEMOGLOBIN 9.1 g/dL (12.0-16.0); LYMPHOCYTES # (AUTO) 3.2 10^3/uL (1.5-3.5); LYMPHOCYTES % (AUTO) 45.4 %; MEAN CORPUSCULAR HEMOGLOBIN 24.7 pg (27.0-31.0); MEAN CORPUSCULAR HGB CONC 32.2 g/dL (32.0-36.0); MEAN CORPUSCULAR VOLUME 76.7 fL (81.0-99.0); MEAN PLATELET VOLUME 8.1 fL (7.9-10.8); MONOCYTES # (AUTO) 0.4 10^3/uL (0.0-1.0); MONOCYTES % (AUTO) 5.7 %; NEUTROPHILS # (AUTO) 3.1 10^3/uL (1.5-6.6); NEUTROPHILS % (AUTO) 44.8 %; PLT - PLATELET COUNT 223 10^3/uL (130-450); RED BLOOD COUNT 3.67 10^6/uL (4.20-5.40); RED CELL DISTRIBUTION WIDTH 15.6 % (12.0-15.0)
[2017-11-23 07:14] LABS: ALBUMIN 3.2 g/dL (3.2-5.5); ALKALINE PHOSPHATASE 124 IU/L (42-121); ALT ALANINE AMINOTRANSFERASE 40 IU/L (10-60); AST ASPARTATE AMINOTRANSFERASE 32 IU/L (10-42); BILIRUBIN,TOTAL 0.3 mg/dL (0.2-1.0); BUN - BLOOD UREA NITROGEN 31 mg/dL (6-20); CALCIUM 9.3 mg/dL (8.5-10.3); CARBON DIOXIDE - CO2 28 mmol/L (21-32); CHLORIDE 99 mmol/L (101-111); GLUCOSE 136 mg/dL (70-100); MAGNESIUM 1.9 mg/dL (1.7-2.8); PHOSPHORUS 5.3 mg/dL (2.5-4.6); SODIUM 137 mmol/L (135-145); TOTAL PROTEIN 6.3 g/dL (6.7-8.2)
[2017-11-23 07:15] LABS: CREATININE < 0.3 mg/dL (0.4-1.0); GFR - MDRD 252 (>89)
[2017-11-23] MEDS: SODIUM CHLORIDE FLUSH 0.9% 10 ML SYRINGE IVP SCH ×3 (07:47→16:52)
[2017-11-23] MEDS: ENOXAPARIN 40 MG/0.4 ML SYRINGE SUBQ SCH (08:04)
[2017-11-23] MEDS: INSULIN ASPART 300 UNIT/3 ML PEN SUBQ SCH ×7 (08:04→20:23)
[2017-11-23] MEDS: CILOSTAZOL 100 MG TABLET PO SCH ×2 (08:05→20:15)
[2017-11-23] MEDS: ASPIRIN EC 81 MG TABLET PO SCH (08:05)
[2017-11-23] MEDS: METOPROLOL SUCCINATE 25 MG TABLET PO SCH ×2 (08:06→20:23)
[2017-11-23] MEDS: OXYBUTYNIN 5MG TABLET PO SCH ×2 (08:06→20:25)
[2017-11-23] MEDS: DULoxetine 20 MG CAPSULE PO SCH (08:06)
[2017-11-23] MEDS: MULTIVITAMIN W/MINERALS TABLET PO SCH (08:06)
[2017-11-23] MEDS: diltiaZEM CD 120 MG CAPSULE PO SCH (08:06)
[2017-11-23] MEDS: FAMOTIDINE 20 MG TABLET PO SCH ×2 (08:07→20:23)
[2017-11-23] MEDS: NYSTATIN CREAM 15 GM TUBE TOP SCH ×2 (08:07→20:25)
[2017-11-23] MEDS: LORazepam 1 MG TABLET PO PRN ×2 (12:51→20:15)
--- NOTE | 2017-11-23 18:08 | Discharge Plan ---
Discharge Plan Disposition: [facility]/Unit DC/Xfer Condition: Good Diet: Diabetic Activity Restrictions: Activity as Tolerated Shower Restrictions: No Driving Restrictions: No Weight Bearing: Full Weight No Smoking: If you smoke, Please STOP! Call for help.
[2017-11-23] MEDS: AMITRIPTYLINE 25 MG TABLET PO SCH (20:17)
[2017-11-23] MEDS: INSULIN GLARGINE 300 UNIT/3 ML PEN SUBQ SCH (20:22)
[2017-11-23] MEDS ORDERED: KETOROLAC 30 MG/ML VIAL IM SCH (20:58)
[2017-11-23] MEDS ORDERED: KETOROLAC 30 MG/ML VIAL ONE (21:33)
[2017-11-23] MEDS: PREGABALIN 25 MG CAPSULE PO SCH (21:37)
[2017-11-23] MEDS ORDERED: BACITRACIN OINT TOP PRN (22:45)
[2017-11-24 00:36] VITALS: BP 110/66
[2017-11-24] MEDS: SODIUM CHLORIDE FLUSH 0.9% 10 ML SYRINGE IVP SCH ×2 (03:25→08:43)
[2017-11-24] MEDS: PREGABALIN 25 MG CAPSULE PO SCH (06:48)
[2017-11-24] MEDS: GABAPENTIN 300 MG CAPSULE PO SCH (06:48)
[2017-11-24] MEDS: traMADol 50 MG TABLET PO PRN (06:49)
--- NOTE | 2017-11-24 08:06 | PROVIDER PROGRESS NOTE ---
Subjective - Prog Note Date Prog Note Date: 11/23/17 Prog Note Time: 18:00 - Subjective Subjective: She is ambulating in her room and hallways. Eating all of her meals. She is back to her baseline temperament. She has been evaluated by [facility]. She is a candidate for treatment, inpatient, on the basis of her psychiatric history, danger to herself with regards to compliance with her diabetes, drug abuse. We are now in the process of getting her ready to be transferred. Felicitas is not happy about that. Objective - Vital Signs/Intake & Output Reviewed Vital Signs: Yes Intake & Output: Intake & Output 11/21/17 11/22/17 11/23/17 11/24/17 23:59 23:59 23:59 23:59 Intake Total 3200 900 2155 240 Balance 3200 900 2155 240 - Objective General Appearance: positive: No acute distress, Alert, Other (Agitated, white female, who over the last couple of years is lost quite a bit of weight but is s till not cachectic. Still well-nourished well-developed in spite I have her tenuous living situation) Eyes Bilateral: positive: PERRL, EOMI ENT: positive: Other (Many teeth gone, poor dentition) Neck: positive: No JVD. negative: Lymphadenopathy (R), Lymphadenopathy (L), Stiff neck, Carotid bruit Respiratory: positive: Chest non-tender. negative: Wheezes, Rales, Rhonchi Cardiovascular: positive: Regular rate & rhythm, Systolic murmur (Chronic not new). negative: Gallop/S4, Friction rub Abdomen: positive: Non-tender, No organomegaly, Nml bowel sounds, No distention Skin: positive: Warm, Dry Extremities: positive: Full ROM, No pedal edema, Other ( very she has partial amputations of both toes on both feet. The right fourth stump has dried scaling eschar with occasional serous fluid that comes out. Does not need any dressing changes. There is no redness, no heat, no infection.) Neurologic/Psychiatric: positive: Oriented x3, CN's nml (2-12), Motor nml - Lab Results Fish Bones: 11/23/17 05:55 11/23/17 05:55 Other Labs: Lab Results x24hrs 11/24/17 11/23/17 11/23/17 Range/Units 07:31 23:53 22:14 POC Whole Bld Glucose 145 H 248 H 298 H (70 - 100) mg/dL 11/23/17 11/23/17 11/23/17 Range/Units 20:06 16:46 11:10 POC Whole Bld Glucose 302 H 105 H 104 H (70 - 100) mg/dL Assessment/Plan - Problem List (1) Cognitive and neurobehavioral dysfunction following brain injury Impression: This is an unfortunate white female who is in a methamphetamine abuser, and also other recreational substances. Through the years she has had multiple overdoses, multiple episodes of admission for DKA, 2-3 episodes of hypothermia. Many of these admissions have been associated with near coma if not flat out,. I am sure all of these resulted in cognitive dysfunction secondary to hypoglycemia and anoxia. She has now been evaluated for inpatient treatment program. A bed has been obtained in [place]. She cannot be transferred till tomorrow morning. Her other medical problems of DKA, metabolic encephalopathy, dehydration have all resolved with this admission.
[2017-11-24] MEDS: diltiaZEM CD 120 MG CAPSULE PO SCH (08:41)
[2017-11-24] MEDS: CILOSTAZOL 100 MG TABLET PO SCH (08:41)
[2017-11-24] MEDS: ASPIRIN EC 81 MG TABLET PO SCH (08:41)
[2017-11-24] MEDS: ENOXAPARIN 40 MG/0.4 ML SYRINGE SUBQ SCH (08:42)
[2017-11-24] MEDS: FAMOTIDINE 20 MG TABLET PO SCH (08:42)
[2017-11-24] MEDS: DULoxetine 20 MG CAPSULE PO SCH (08:42)
[2017-11-24] MEDS: OXYBUTYNIN 5MG TABLET PO SCH (08:42)
[2017-11-24] MEDS: METOPROLOL SUCCINATE 25 MG TABLET PO SCH (08:42)
[2017-11-24] MEDS: MULTIVITAMIN W/MINERALS TABLET PO SCH (08:42)
[2017-11-24] MEDS: INSULIN ASPART 300 UNIT/3 ML PEN SUBQ SCH ×2 (08:43→08:44)
[2017-11-24] MEDS: NYSTATIN CREAM 15 GM TUBE TOP SCH (08:44)
[2017-11-24] MEDS: LORazepam 1 MG TABLET PO PRN (09:26)
[2017-11-24] MEDS: ONDANSETRON ODT 4 MG TABLET TL PRN (09:29)
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
== END 2017-11-24 09:30 | DRG 637 ==
LOC: EDUNIT# → ED 08:21 → ICU 10:20 → MS2 11-22 10:45
PROVIDERS: ADMIT Internal Medicine; ATTEND Specialist
PROC: 02H633Z Insertion of Infusion Device into Right Atrium, Percutaneous Approach (ICD-10-PCS; principal; 2017-11-17)
DX: E10.11 Type 1 diabetes mellitus with ketoacidosis with coma (principal); G93.41 Metabolic encephalopathy; N17.9 Acute kidney failure, unspecified; E87.1 Hypo-osmolality and hyponatremia; E87.0 Hyperosmolality and hypernatremia; G93.1 Anoxic brain damage, not elsewhere classified; T68.XXXA Hypothermia, initial encounter; X31.XXXA Exposure to excessive natural cold, initial encounter; E86.0 Dehydration; E87.5 Hyperkalemia; S91.104A Unspecified open wound of right lesser toe(s) without damage to nail, initial encounter; S40.812A Abrasion of left upper arm, initial encounter; S40.811A Abrasion of right upper arm, initial encounter; S80.812A Abrasion, left lower leg, initial encounter; S80.811A Abrasion, right lower leg, initial encounter; X58.XXXA Exposure to other specified factors, initial encounter; E87.6 Hypokalemia; E10.649 Type 1 diabetes mellitus with hypoglycemia without coma; D64.9 Anemia, unspecified; R00.0 Tachycardia, unspecified; F15.10 Other stimulant abuse, uncomplicated; F60.3 Borderline personality disorder; F31.9 Bipolar disorder, unspecified; F41.0 Panic disorder [episodic paroxysmal anxiety]; F90.9 Attention-deficit hyperactivity disorder, unspecified type; E10.51 Type 1 diabetes mellitus with diabetic peripheral angiopathy without gangrene; E10.42 Type 1 diabetes mellitus with diabetic polyneuropathy; I10 Essential (primary) hypertension; M79.7 Fibromyalgia; G89.29 Other chronic pain; E78.00 Pure hypercholesterolemia, unspecified; F17.210 Nicotine dependence, cigarettes, uncomplicated; R63.4 Abnormal weight loss; H05.20 Unspecified exophthalmos; Z78.1 Physical restraint status; I25.2 Old myocardial infarction; Z68.22 Body mass index [BMI] 22.0-22.9, adult; Z89.421 Acquired absence of other right toe(s); Z59.0 Homelessness; Z79.4 Long term (current) use of insulin; Z86.14 Personal history of Methicillin resistant Staphylococcus aureus infection; Z89.411 Acquired absence of right great toe; Z89.422 Acquired absence of other left toe(s); Z79.899 Other long term (current) drug therapy
CPT/HCPCS: 36415; 70450; 71045; 72125; 80048; 80053; 80306; 80307; 80320; 80329; 81001; 81003; 81025; 82009; 82270; 82330; 82607; 82746; 82803; 82947; 83036; 83540; 83605; 83690; 83735; 84100; 84443; 84466; 84484; 85025; 85610; 87040; 87086; 87150; 93005; 96361; 96374; 99284; 99285; 99291

== ENCOUNTER 2017-12-01 18:04 | Outpatient (CLI) | payer MEDICAID | END 2017-12-01 18:05 | disposition critical access hospital (66) | LOC: EMS 18:04 | PROVIDERS: ATTEND Surgery | DX: R46.89 Other symptoms and signs involving appearance and behavior (principal) | CPT/HCPCS: A0425; A0429; A0999 ==

== ENCOUNTER 2017-12-01 18:22 | Inpatient (IN) | payer MEDICAID ==
[2017-12-01] MEDS ORDERED: SODIUM CHLORIDE 0.9% 1,000 ML IV ONE (18:29)
[2017-12-01] MEDS ORDERED: INSULIN REGULAR HUMAN 100 UNIT in SODIUM CHLORIDE 0.9% 100ML 99 ML IV STA (18:29)
--- NOTE | 2017-12-01 18:51 | ED Physician Documentation ---
PD HPI ABD PAIN - Stated complaint Stated Complaint: AMS - Chief complaint Chief Complaint: Abd Pain - History obtained from History obtained from: Patient, EMS - History of Present Illness Timing - onset: Today (Brought in by EMS, found laying outside pretty much obtunded.) Review of Systems Unable to obtain: AMS, Confused PD PAST MEDICAL HISTORY - Past Medical History Cardiovascular: Hypertension, High cholesterol, Peripheral Vascular Disease, IA Respiratory: None Neuro: Peripheral neuropathy, Other Endocrine/Autoimmune: Type 1 diabetes GI: Pancreatitis CAN REPAIRER: None : None HEENT: None Psych: Depression, Anxiety, Panic attacks Musculoskeletal: Fibromyalgia Derm: None - Past Surgical History Past Surgical History: Yes General: Cholecystectomy HEENT: Tonsil/Adenoidectomy - Present Medications Home Medications: Ambulatory Orders Medication Instructions Recorded Confirmed Aspirin [Aspirin EC] 81 mg PO DAILY #30 tablet. 08/30/17 11/17/17 Oxybutynin [Ditropan] 5 mg PO BID #60 tablet 08/30/17 11/17/17 Amitriptyline [Elavil] 25 mg PO HS #20 tablet 10/31/17 11/17/17 Cilostazol [Pletal] 100 mg PO BID #60 tablet 10/31/17 11/17/17 DULoxetine [Cymbalta] 60 mg PO DAILY #30 capsule 10/31/17 11/17/17 Ibuprofen [Motrin] 600 mg PO Q6HR PRN #60 tablet 10/31/17 11/17/17 Insulin Aspart [NovoLOG] 3 - 11 unit SUBQ 10/31/17 11/17/17 0800,1200,1700,2100 #3 pen Insulin Aspart [NovoLOG] 15 unit SUBQ TIDWM #3 pen 10/31/17 11/17/17 Metoclopramide [Reglan] 10 mg PO ACHS #60 tablet 10/31/17 11/17/17 Metoprolol Succinate [Toprol Xl] 25 mg PO BID #60 tablet 10/31/17 11/17/17 Nystatin Cream [Mycostatin Cream] 15 gm TOP BID #1 tube 10/31/17 11/17/17 cloNIDine [Catapres] 0.1 mg PO BID #60 tablet 10/31/17 11/17/17 diltiaZEM CD [Cardizem Cd] 120 mg PO DAILY #30 capsule 10/31/17 11/17/17 traMADol [Ultram] 50 mg PO Q6H PRN #10 tablet 10/31/17 11/17/17 Gabapentin [Neurontin] 900 mg PO TID #90 capsule 11/11/17 11/17/17 Insulin Glargine [Lantus Solostar] 40 unit SUBQ QPM #3 pen 11/23/17 11/17/17 - Allergies Allergies/Adverse Reactions: Allergies Allergy/AdvReac Type Severity Reaction Status Date / Time codeine Allergy Hives Verified 12/01/17 18:33 hydrocodone Allergy Hives Verified 12/01/17 18:33 morphine Allergy Itching Verified 12/01/17 18:33 milk AdvReac Cramps Verified 12/01/17 18:33 nitrofurantoin AdvReac Headache Verified 12/01/17 18:33 [From Macrobid] PAPER TAPE AdvReac Unknown Uncoded 11/10/17 10:40 - Social History Does the pt smoke?: Yes Smoking Status: Current every day smoker Does the pt drink ETOH?: No Does the pt have substance abuse?: Yes - Immunizations Immunizations are current?: Yes - POLST Patient has POLST: No POLST Status: Full Code PD ED PE NORMAL - Vitals Vital signs reviewed: Yes - General General: Other (On initial arrival she is pretty much obtunded, she does become more verbal later and demanding pain medication and feeling very cold. She says she used insulin today.) - HEENT HEENT: PERRL, EOMI - Neck Neck: Supple, no meningeal sign, No bony TTP - Cardiac Cardiac: RRR, No murmur - Respiratory Respiratory: Other (Tachypneic with cues also respirations) - Abdomen Abdomen: Soft, Non tender - Extremities Extremities: No edema, No calf tenderness / cord - Neuro Neuro: Alert and oriented X 3 - Psych Psych: Normal mood, Normal affect Results - Vitals Vitals: Vital Signs - 24 hr 12/01/17 18:26 Temperature 36.3 C L Heart Rate 51 L Respiratory 24 Rate Blood Pressure 139/100 H O2 Saturation 90 L Oxygen O2 Source [Without Activity] Room air O2 Source Room air Procedures - Central Line Central Line Preparation: Consent Obtained, Time out completed Central line location: Left IJ Central line type: Triple lumen Central line aftercare: Chlorhexidine disc placed, Secured, Placement confirmed, No pneumothorax, No complications, Bundle checklist complete PD MEDICAL DECISION MAKING - ED course ED course: 37-year-old woman with poorly controlled diabetes and a history of drug abuse presents obtunded with evidence of DKA. She did become more coherent and complaining of a lot of body pain here. Initially tried to place an external jugular line on arrival which failed and followed expeditiously by a right IJ line, labs as shown. Given IV fluids and insulin drip. - Critical Care Time(min): 45 Time Includes: Direct patient care, Review records, Reassess patient, Document care, Coordinate care, Medical consult, Family consult for tx dec Data interpretation: Labs, Pulse ox Procedures excluded from critical care time: Central IV - Sepsis Event Vital Signs: Vital Signs - 24 hr 12/01/17 18:26 Temperature 36.3 C L Heart Rate 51 L Respiratory 24 Rate Blood Pressure 139/100 H O2 Saturation 90 L Oxygen O2 Source [Without Activity] Room air O2 Source Room air Departure - Departure Disposition: [facility] DC/Xfer Clinical Impression: PVD (peripheral vascular disease), Decreased level of consciousness Diabetic acidosis without coma Qualifiers: Diabetes mellitus type: type 1 Qualified Code(s): E10.10 - Type 1 diabetes mellitus with ketoacidosis without coma Condition: Critical
[2017-12-01] MEDS ORDERED: ELECTROLYTE-A SOLUTION 1,000 ML IV SCH (19:00)
[2017-12-01 19:03] LABS: BASOPHILS # (AUTO) 0.1 10^3/uL (0.0-0.1); BASOPHILS % (AUTO) 0.4 %; HGB - HEMOGLOBIN 10.3 g/dL (12.0-16.0); LYMPHOCYTES # (AUTO) 1.3 10^3/uL (1.5-3.5); LYMPHOCYTES % (AUTO) 7.8 %; MEAN CORPUSCULAR HEMOGLOBIN 24.1 pg (27.0-31.0); MEAN CORPUSCULAR HGB CONC 29.1 g/dL (32.0-36.0); MEAN CORPUSCULAR VOLUME 82.8 fL (81.0-99.0); MEAN PLATELET VOLUME 7.2 fL (7.9-10.8); MONOCYTES # (AUTO) 0.2 10^3/uL (0.0-1.0); MONOCYTES % (AUTO) 1.2 %; NEUTROPHILS # (AUTO) 14.7 10^3/uL (1.5-6.6); NEUTROPHILS % (AUTO) 90.6 %; PLT - PLATELET COUNT 750 10^3/uL (130-450); RED BLOOD COUNT 4.26 10^6/uL (4.20-5.40); RED CELL DISTRIBUTION WIDTH 17.5 % (12.0-15.0); WHITE BLOOD COUNT 16.2 x10^3/uL (4.8-10.8)
[2017-12-01 19:12] LABS: KETONES, SERUM (ACETEST) MODERATE (NEGATIVE); VBG BASE EXCESS -21.5 mmol/L (-2 - +2); VBG PCO2 22.6 mmHg (41-51); VBG PH 7.089 (7.31-7.41); VBG PO2 92.8 mmHg (25-47); VBG TOTAL CO2 7.4 mmol/L (24-29)
--- NOTE | 2017-12-01 19:21 | XRAY Report ---
Reason: line Procedure Date: 12/01/2017 Accession Number: [id number] / [id number] Procedure: XR - Chest 1 View X-Ray CPT Code: 04572 FULL RESULT: EXAM: CHEST RADIOGRAPHY EXAM DATE: 12/01/2017 07:09 PM. CLINICAL HISTORY: Line. COMPARISON: CHEST 1 VIEW 11/17/2017 11:01 AM. TECHNIQUE: 1 view. FINDINGS: Left internal jugular vein central venous catheter terminates at the superior cavoatrial junction. The patient is rotated to the right. Heart size is normal. No consolidation, pleural effusion, or pneumothorax. IMPRESSION: Left internal jugular vein central venous catheter terminating at the superior cavoatrial junction. RADIA
[2017-12-01] MEDS ORDERED: HYDROmorphone 1 MG/ML CARPUJECT IVP STA (19:28)
[2017-12-01] MEDS ORDERED: KETOROLAC 60 MG/2 ML VIAL IVP STA (19:28)
[2017-12-01 19:30] LABS: ALBUMIN 4.5 g/dL (3.2-5.5); ALBUMIN/GLOBULIN RATIO 1.2 (1.0-2.2); ALKALINE PHOSPHATASE 217 IU/L (42-121); ALT ALANINE AMINOTRANSFERASE 80 IU/L (10-60); AST ASPARTATE AMINOTRANSFERASE 40 IU/L (10-42); BILIRUBIN,TOTAL 1.2 mg/dL (0.2-1.0); BUN - BLOOD UREA NITROGEN 23 mg/dL (6-20); CALCIUM 9.3 mg/dL (8.5-10.3); CHLORIDE 94 mmol/L (101-111); CREATININE 1.1 mg/dL (0.4-1.0); GFR - MDRD 56 (>89); LIPASE 26 U/L (22-51); MAGNESIUM 2.6 mg/dL (1.7-2.8); PHOSPHORUS 7.2 mg/dL (2.5-4.6); SALICYLATE < 6.0 mg/dL; SODIUM 134 mmol/L (135-145); TOTAL PROTEIN 8.2 g/dL (6.7-8.2)
[2017-12-01 19:31] LABS: ACETAMINOPHEN < 10 ug/mL (10-30); CARBON DIOXIDE - CO2 6 mmol/L (21-32); GLUCOSE 712 mg/dL (70-100)
[2017-12-01] MEDS ORDERED: ONDANSETRON 4 MG/2 ML VIAL IVP STA (19:53)
[2017-12-01 19:56] LABS: HCG,QUALITATIVE BLOOD NEGATIVE
[2017-12-01] MEDS ORDERED: INSULIN REGULAR HUMAN 100 UNIT in SODIUM CHLORIDE 0.9% 100ML 99 ML IV SCH ×2 (20:00→21:00)
[2017-12-01] MEDS ORDERED: PROMETHAZINE 25 MG/1 ML VIAL IM PRN (20:18)
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
[2017-12-01] MEDS ORDERED: SODIUM CHLORIDE 0.9% 1,000 ML IV SCH (21:00)
[2017-12-01] MEDS ORDERED: HALOPERIDOL 5 MG/ML VIAL IVP ONE (21:12)
[2017-12-01] MEDS: SODIUM CHLORIDE FLUSH 0.9% 10 ML SYRINGE IVP PRN ×3 (21:14→23:14)
[2017-12-01] MEDS ORDERED: LORazepam 2 MG/ML VIAL IVP SCH (22:00)
[2017-12-01 22:06] LABS: MUDS CUTOFF CONCENTRATIONS CUTOFF CONC BELOW:
[2017-12-01] MEDS: NYSTATIN CREAM 15 GM TUBE TOP SCH (22:12)
[2017-12-01 22:13] LABS: BILIRUBIN,URINE NEGATIVE (NEGATIVE); GLUCOSE, URINE (UA) >=1000 mg/dL (NEGATIVE); KETONES,URINE (UA) >=80 mg/dL (NEGATIVE); LEUKOCYTE ESTERASE, URINE NEGATIVE (NEGATIVE); NITRITE,URINE NEGATIVE (NEGATIVE); OCCULT BLOOD,URINE TRACE-INTA (NEGATIVE); PH,URINE 5.5 PH (5.0-7.5); PROTEIN,URINE NEGATIVE (NEGATIVE); UROBILINOGEN,URINE 0.2 (NORMAL) E.U./dL (NORMAL)
[2017-12-01 22:16] LABS: CLARITY,URINE CLEAR (CLEAR); HCG UR QUAL NEGATIVE
[2017-12-01] MEDS: ACETAMINOPHEN 325 MG TABLET PO PRN (22:17)
[2017-12-01 22:29] LABS: AMPHETAMINE SCREEN,URINE NEGATIVE (NEGATIVE); BENZODIAZEPINES SCREEN, URINE NEGATIVE (NEGATIVE); COCAINE SCREEN URINE NEGATIVE (NEGATIVE); METHADONE SCREEN, URINE NEGATIVE (NEGATIVE); METHAMPHETAMINES SCREEN, URINE POSITIVE (NEGATIVE); OPIATE SCREEN, URINE POSITIVE (NEGATIVE); OXYCODONE SCREEN, URINE NEGATIVE (NEGATIVE); PROPOXYPHENE SCREEN, URINE NEGATIVE (NEGATIVE); TRICYCLIC ANTIDEPRESSANT,URINE NEGATIVE (NEGATIVE)
[2017-12-01 23:12] LABS: CALCIUM 8.6 mg/dL (8.5-10.3); CREATININE 1.1 mg/dL (0.4-1.0); MAGNESIUM 2.7 mg/dL (1.7-2.8)
[2017-12-02] MEDS ORDERED: D5.45NS W/20 MEQ KCL 1,000 ML IV SCH
[2017-12-02] MEDS: SODIUM CHLORIDE FLUSH 0.9% 10 ML SYRINGE IVP PRN ×2 (00:26→16:41)
[2017-12-02 00:51] LABS: CALCIUM 8.3 mg/dL (8.5-10.3); MAGNESIUM 2.3 mg/dL (1.7-2.8)
[2017-12-02] MEDS: SODIUM CHLORIDE FLUSH 0.9% 10 ML SYRINGE IVP SCH ×4 (02:07→22:40)
[2017-12-02 02:19] LABS: KETONES, SERUM (ACETEST) MODERATE (NEGATIVE)
[2017-12-02 02:26] LABS: BUN - BLOOD UREA NITROGEN 26 mg/dL (6-20); CALCIUM 8.3 mg/dL (8.5-10.3); CHLORIDE 106 mmol/L (101-111); CREATININE 1.1 mg/dL (0.4-1.0); GFR - MDRD 56 (>89); GLUCOSE 175 mg/dL (70-100); SODIUM 139 mmol/L (135-145)
[2017-12-02] MEDS ORDERED: SODIUM CHLORIDE 0.9% 1,000 ML IV ONE (03:37)
[2017-12-02] MEDS: D5.45NS W/20 MEQ KCL 1,000 ML IV SCH ×2 (03:59→09:46)
[2017-12-02 05:28] LABS: BASOPHILS % (AUTO) 0.2 %; HGB - HEMOGLOBIN 8.2 g/dL (12.0-16.0); LYMPHOCYTES # (AUTO) 2.8 10^3/uL (1.5-3.5); LYMPHOCYTES % (AUTO) 21.5 %; MEAN CORPUSCULAR HEMOGLOBIN 23.6 pg (27.0-31.0); MEAN PLATELET VOLUME 6.7 fL (7.9-10.8); MONOCYTES # (AUTO) 0.7 10^3/uL (0.0-1.0); MONOCYTES % (AUTO) 5.2 %; NEUTROPHILS # (AUTO) 9.4 10^3/uL (1.5-6.6); NEUTROPHILS % (AUTO) 73.1 %; PLT - PLATELET COUNT 647 10^3/uL (130-450); RED BLOOD COUNT 3.46 10^6/uL (4.20-5.40); RED CELL DISTRIBUTION WIDTH 16.6 % (12.0-15.0); WHITE BLOOD COUNT 12.9 x10^3/uL (4.8-10.8)
[2017-12-02 05:37] LABS: ALBUMIN 3.4 g/dL (3.2-5.5); ALBUMIN/GLOBULIN RATIO 1.2 (1.0-2.2); BILIRUBIN,TOTAL 0.5 mg/dL (0.2-1.0); CALCIUM 7.7 mg/dL (8.5-10.3); CREATININE 0.9 mg/dL (0.4-1.0); MAGNESIUM 2.2 mg/dL (1.7-2.8); PHOSPHORUS 2.3 mg/dL (2.5-4.6); TOTAL PROTEIN 6.2 g/dL (6.7-8.2)
[2017-12-02] MEDS: INSULIN GLARGINE 300 UNIT/3 ML PEN SUBQ SCH ×2 (05:55→21:24)
[2017-12-02 06:08] LABS: VBG PH 7.359 (7.31-7.41)
[2017-12-02 06:13] LABS: HB2 TOTAL 8.5 g/dL; HEMOGLOBIN A1C 0.85 g/dL; HEMOGLOBIN A1C % 11.3 % (4.6-6.2)
[2017-12-02 06:52] LABS: CARBON DIOXIDE - CO2 11 mmol/L (21-32)
[2017-12-02] MEDS: PANTOPRAZOLE 40 MG VIAL IVP SCH (06:56)
[2017-12-02] MEDS ORDERED: CALCIUM GLUCONATE 1,000 MG in SODIUM CHLORIDE 0.9% 50 ML IV ONE (07:04)
[2017-12-02] MEDS: INSULIN ASPART 300 UNIT/3 ML PEN SUBQ SCH ×5 (08:22→21:26)
[2017-12-02] MEDS: diltiaZEM CD 120 MG CAPSULE PO SCH (09:00)
[2017-12-02] MEDS: ENOXAPARIN 40 MG/0.4 ML SYRINGE SUBQ SCH ×2 (09:00→09:04)
[2017-12-02] MEDS: NEUTRA-PHOS 250 MG TABLET PO SCH ×2 (09:00→12:00)
[2017-12-02] MEDS ORDERED: METOPROLOL TARTRATE 25 MG TABLET PO SCH (09:00)
[2017-12-02] MEDS: METOPROLOL SUCCINATE 25 MG TABLET PO SCH ×2 (09:00→21:24)
[2017-12-02] MEDS: cloNIDine 0.1 MG TABLET PO SCH ×2 (09:00→21:24)
[2017-12-02] MEDS: NICOTINE 21 MG PATCH TOP SCH (09:01)
[2017-12-02] MEDS: NYSTATIN CREAM 15 GM TUBE TOP SCH ×2 (09:53→21:27)
[2017-12-02] MEDS: KETOROLAC 30 MG/ML VIAL IVP PRN ×2 (11:40→18:04)
[2017-12-02] MEDS: ACETAMINOPHEN 325 MG TABLET PO PRN ×2 (14:11→20:13)
--- NOTE | 2017-12-02 18:53 | PROVIDER PROGRESS NOTE ---
Assessment/Plan - Problem List (1) DKA (diabetic ketoacidoses) Qualifiers: Diabetes mellitus type: type 1 Assessment/Plan: Persistent serum ketomes present, therefore will continue iv hydration. Carb-controlled diet. DKA protocol (2) Methamphetamine abuse Assessment/Plan: The patient is "sleeping off" the last Meth use. (3) Psychiatric disorder Assessment/Plan: She was not kept at the [facility] for very long. The details are unknown. - Current Meds Current Meds: Current Medications Generic Name Dose Route Start Last Admin Trade Name Freq PRN Reason Stop Dose Admin Acetaminophen 650 mg 12/01/17 20:18 12/02/17 14:11 Tylenol PO 650 mg Q4HR PRN Administration Pain 1 to 4 Clonidine HCl 0.1 mg 12/02/17 09:00 12/02/17 09:00 Catapres PO 0.1 mg BID SYLVIA Administration Diltiazem HCl 120 mg 12/02/17 09:00 12/02/17 09:00 Cardizem Cd PO 120 mg DAILY SYLVIA Administration Enoxaparin Sodium 40 mg 12/02/17 09:00 12/02/17 09:04 Lovenox SUBQ Not Given DAILY SYLVIA Potassium Chloride/Dextrose/Sod Cl 1,000 mls @ 80 mls/hr 12/02/17 03:36 12/02/17 18:00 D5.45ns W/20 Meq Kcl IV 80 mls/hr .[id number] SYLVIA Infusion Insulin Aspart 3 - 11 unit 12/02/17 17:00 12/02/17 17:36 Novolog SUBQ 11 unit 0800,1200,1700,2100 SYLVIA Administration Protocol Insulin Glargine 40 unit 12/02/17 05:39 12/02/17 05:55 Lantus Solostar SUBQ 40 unit BID SYLVIA Administration Ketorolac Tromethamine 30 mg 12/01/17 21:11 12/02/17 18:04 Toradol Inj (30mg) IVP 12/06/17 21:10 30 mg Q6HR PRN Administration PAIN Metoprolol Succinate 25 mg 12/02/17 09:00 12/02/17 09:00 Toprol Xl PO 25 mg BID SYLVIA Administration Nicotine 1 patch 12/02/17 09:00 12/02/17 09:01 Nicoderm TOP 1 patch DAILY SYLVIA Administration Nystatin 15 applic 12/01/17 21:00 12/02/17 09:53 Mycostatin Cream TOP Not Given BID SYLVIA Pantoprazole Sodium 40 mg 12/02/17 07:00 12/02/17 06:56 Protonix IVP 40 mg QDAC SYLVIA Administration Sodium Chloride 10 ml 12/02/17 01:00 12/02/17 16:41 Normal Saline Flush 0.9% IVP 10 ml 0100,0900,1700 SYLVIA Administration Sodium Chloride 10 ml 12/01/17 20:18 12/02/17 16:41 Normal Saline Flush 0.9% IVP 10 ml PRN PRN Administration NEEDED PER PROVIDER ORDERS - Lab Result Fish Bone Diagrams: 12/02/17 05:00 12/02/17 05:00 - Additional Planning My Orders: My Active Orders 12/02/17 09:00 Metoprolol Succinate [Toprol Xl] 25 mg PO BID 12/02/17 17:00 Insulin Aspart [NovoLOG] 3 - 11 unit SUBQ 0800,1200,1700,2100 Subjective - Subjective Patient Reports: Resting Comfortably Objective Vital Signs: Vital Signs - 24 hr 12/01/17 12/01/17 12/01/17 19:22 20:35 21:00 Temperature 36.7 C Heart Rate 124 H 127 H Heart Rate [ 121 H Monitoring electrodes] Respiratory 19 18 31 H Rate Blood Pressure 136/79 H 139/83 H Blood Pressure 117/81 H [Left Brachial artery] O2 Saturation 96 95 98 12/01/17 12/01/17 12/02/17 22:00 23:00 00:00 Temperature 36.7 C Heart Rate Heart Rate [ 126 H 131 H 124 H Monitoring electrodes] Respiratory 17 20 27 H Rate Blood Pressure Blood Pressure 114/74 110/70 106/64 [Left Brachial artery] O2 Saturation 100 98 98 12/02/17 12/02/17 12/02/17 01:00 02:00 03:00 Temperature Heart Rate Heart Rate [ 133 H 125 H 130 H Monitoring electrodes] Respiratory 25 H 30 H 23 Rate Blood Pressure Blood Pressure 100/59 L 110/65 116/70 [Left Brachial artery] O2 Saturation 99 98 98 12/02/17 12/02/17 12/02/17 04:00 05:00 06:00 Temperature 36.6 C Heart Rate Heart Rate [ 128 H 123 H 126 H Monitoring electrodes] Respiratory 25 H 22 21 Rate Blood Pressure Blood Pressure 112/73 127/75 [Left Brachial artery] O2 Saturation 99 99 95 12/02/17 12/02/17 12/02/17 06:57 08:00 09:00 Temperature 37.3 C Heart Rate Heart Rate [ 124 H 121 H 125 H Monitoring electrodes] Respiratory 22 17 16 Rate Blood Pressure Blood Pressure 125/72 107/68 132/82 H [Left Brachial artery] O2 Saturation 96 97 97 12/02/17 12/02/17 12/02/17 10:00 11:00 12:00 Temperature 37.3 C Heart Rate Heart Rate [ 110 H 113 H 107 H Monitoring electrodes] Respiratory 14 23 14 Rate Blood Pressure Blood Pressure 131/87 H 113/68 110/77 [Left Brachial artery] O2 Saturation 98 96 97 12/02/17 12/02/17 12/02/17 13:00 14:00 15:00 Temperature 37.7 C H Heart Rate Heart Rate [ 111 H 109 H 107 H Monitoring electrodes] Respiratory 16 17 16 Rate Blood Pressure Blood Pressure 110/78 122/71 101/61 [Left Brachial artery] O2 Saturation 96 96 96 12/02/17 12/02/17 16:00 18:00 Temperature 37.8 C H Heart Rate Heart Rate [ 106 H 107 H Monitoring electrodes] Respiratory 26 H 16 Rate Blood Pressure Blood Pressure 121/79 147/106 H [Left Brachial artery] O2 Saturation 98 96 Oxygen O2 Source [Without Activity] Room air O2 Source Room air I&O (Last 24 Hrs): Intake and Output Totals x24h 11/30/17 12/01/17 12/02/17 23:59 23:59 23:59 Intake Total 1180.4 5811.933 Output Total 950 2970 Balance 230.4 2841.933 General: Other (Somnolent) HEENT: Mucous membr. moist/pink Neck: Supple Neuro: Other (Somnolent) Cardiovascular: Regular rate Respiratory: No respiratory distress Abdomen: Soft Extremities: Other (Several toes amputated) - Results Results: Laboratory Results WBC 12.9 x10^3/uL (4.8-10.8) H 12/02/17 05:00 RBC 3.46 10^6/uL (4.20-5.40) L 12/02/17 05:00 Hgb 8.2 g/dL (12.0-16.0) L 12/02/17 05:00 Hct 26.3 % (37.0-47.0) L 12/02/17 05:00 MCV 76.0 fL (81.0-99.0) L 12/02/17 05:00 MCH 23.6 pg (27.0-31.0) L 12/02/17 05:00 MCHC 31.0 g/dL (32.0-36.0) L 12/02/17 05:00 RDW 16.6 % (12.0-15.0) H 12/02/17 05:00 Plt Count 647 10^3/uL (130-450) H 12/02/17 05:00 MPV 6.7 fL (7.9-10.8) L 12/02/17 05:00 Neut # (Auto) 9.4 10^3/uL (1.5-6.6) H 12/02/17 05:00 Lymph # (Auto) 2.8 10^3/uL (1.5-3.5) 12/02/17 05:00 [place] # (Auto) 0.7 10^3/uL (0.0-1.0) 12/02/17 05:00 Eos # (Auto) 0.0 10^3/uL (0.0-0.7) 12/02/17 05:00 Baso # (Auto) 0.0 10^3/uL (0.0-0.1) 12/02/17 05:00 Absolute Nucleated RBC 0.01 x10^3/uL 12/02/17 05:00 Nucleated RBC % 0.1 /100WBC 12/02/17 05:00 VBG pH 7.359 (7.31-7.41) 12/02/17 05:55 VBG pCO2 22.6 mmHg (41-51) L 12/01/17 18:50 VBG pO2 92.8 mmHg (25-47) H 12/01/17 18:50 VBG HCO3 6.7 mmol/L (23-28) L 12/01/17 18:50 VBG Total CO2 7.4 mmol/L (24-29) L 12/01/17 18:50 VBG O2 Saturation 93.8 % (60-80) H 12/01/17 18:50 VBG Base Excess -21.5 mmol/L (-2 - +2) L 12/01/17 18:50 Ionized Calcium 1.08 mmol/L (1.15-1.33) L 12/02/17 05:55 Sodium 141 mmol/L (135-145) 12/02/17 05:00 Potassium 4.0 mmol/L (3.5-5.0) 12/02/17 05:00 Chloride 111 mmol/L (101-111) 12/02/17 05:00 Carbon Dioxide 18 mmol/L (21-32) L 12/02/17 05:00 Anion Gap 12.0 (6-13) 12/02/17 05:00 BUN 25 mg/dL (6-20) H 12/02/17 05:00 Creatinine 0.9 mg/dL (0.4-1.0) 12/02/17 05:00 Estimated GFR (MDRD) 71 (>89) L 12/02/17 05:00 Glucose 82 mg/dL (70-100) 12/02/17 05:00 Glycated Hemoglobin 11.3 % (4.6-6.2) H 12/02/17 05:00 Estim Average Glucose 278 (70-100) H 12/02/17 05:00 Lactic Acid 1.7 mmol/L (0.5-2.2) 12/01/17 18:50 Calcium 7.7 mg/dL (8.5-10.3) L 12/02/17 05:00 Phosphorus 2.3 mg/dL (2.5-4.6) L 12/02/17 05:00 Magnesium 2.2 mg/dL (1.7-2.8) 12/02/17 05:00 Total Bilirubin 0.5 mg/dL (0.2-1.0) 12/02/17 05:00 AST 26 IU/L (10-42) 12/02/17 05:00 ALT 55 IU/L (10-60) 12/02/17 05:00 Alkaline Phosphatase 146 IU/L (42-121) H 12/02/17 05:00 Troponin I < 0.04 ng/mL (<0.49) 12/02/17 08:22 Total Protein 6.2 g/dL (6.7-8.2) L 12/02/17 05:00 Albumin 3.4 g/dL (3.2-5.5) 12/02/17 05:00 Globulin 2.8 g/dL (2.1-4.2) 12/02/17 05:00 Albumin/Globulin Ratio 1.2 (1.0-2.2) 12/02/17 05:00 Lipase 26 U/L (22-51) 12/01/17 18:50 Serum HCG, Qual NEGATIVE 12/01/17 18:50 Urine Color LIGHT YELLOW 12/01/17 21:45 Urine Clarity CLEAR (CLEAR) 12/01/17 21:45 Urine pH 5.5 PH (5.0-7.5) 12/01/17 21:45 Ur Specific [place] 1.025 (1.002-1.030) 12/01/17 21:45 Urine Protein NEGATIVE mg/dL (NEGATIVE) 12/01/17 21:45 Urine Glucose (UA) >=1000 mg/dL (NEGATIVE) H 12/01/17 21:45 Urine Ketones >=80 mg/dL (NEGATIVE) H 12/01/17 21:45 Urine Occult Blood TRACE-INTA (NEGATIVE) 12/01/17 21:45 Urine Nitrite NEGATIVE (NEGATIVE) 12/01/17 21:45 Urine Bilirubin NEGATIVE (NEGATIVE) 12/01/17 21:45 Urine Urobilinogen 0.2 (NORMAL) E.U./dL (NORMAL) 12/01/17 21:45 Ur Leukocyte Esterase NEGATIVE (NEGATIVE) 12/01/17 21:45 Ur Microscopic Review NOT INDICATED 12/01/17 21:45 Urine Culture Comments NOT INDICATED 12/01/17 21:45 Urine HCG, Qual NEGATIVE 12/01/17 21:45 Salicylates < 6.0 mg/dL 12/01/17 18:50 Urine Opiates Screen POSITIVE (NEGATIVE) H 12/01/17 21:45 Ur Oxycodone Screen NEGATIVE (NEGATIVE) 12/01/17 21:45 Urine Methadone Screen NEGATIVE (NEGATIVE) 12/01/17 21:45 Ur Propoxyphene Screen NEGATIVE (NEGATIVE) 12/01/17 21:45 Acetaminophen < 10 ug/mL (10-30) L 12/01/17 18:50 Ur Barbiturates Screen NEGATIVE (NEGATIVE) 10/10/18 21:45 Ur Tricyclics Screen NEGATIVE (NEGATIVE) 12/01/17 21:45 Ur Phencyclidine Scrn NEGATIVE (NEGATIVE) 12/01/17 21:45 Ur Amphetamine Screen NEGATIVE (NEGATIVE) 12/01/17 21:45 U Methamphetamines Scrn POSITIVE (NEGATIVE) H 12/01/17 21:45 U Benzodiazepines Scrn NEGATIVE (NEGATIVE) 12/01/17 21:45 Urine Cocaine Screen NEGATIVE (NEGATIVE) 12/01/17 21:45 U Cannabinoids Screen NEGATIVE (NEGATIVE) 12/01/17 21:45 Ethyl Alcohol < 5.0 mg/dL 12/01/17 18:50 Serum Ketones MODERATE (NEGATIVE) H 12/02/17 16:30 - Procedures Procedures: Procedures DETACHMENT AT LEFT 4TH TOE, LOW, OPEN APPROACH (06/30/17) DETACHMENT AT RIGHT 1ST TOE, LOW, OPEN APPROACH (03/14/17) DETACHMENT AT RIGHT 2ND TOE, HIGH, OPEN APPROACH (06/30/17) DETACHMENT AT RIGHT 4TH TOE, HIGH, OPEN APPROACH (06/30/17) INSERT INFUSION DEV IN R INT JUGULAR VEIN, PERC (04/21/16) INSERTION OF INFUSION DEV INTO R SUBCLAV VEIN, PERC APPROACH (03/14/17) INSERTION OF INFUSION DEV INTO SUP VENA CAVA, PERC APPROACH (10/26/17) INSERTION OF INFUSION DEVICE INTO LOWER VEIN, PERC APPROACH (08/13/17) INSERTION OF INFUSION DEVICE INTO R ATRIUM, PERC APPROACH (09/27/17) TRANSFUSE NONAUT RED BLOOD CELLS IN PERIPH VEIN, PERC (01/22/17) ULTRASONOGRAPHY OF RIGHT JUGULAR VEINS, GUIDANCE (04/21/16)
[2017-12-02] MEDS: SODIUM CHLORIDE 0.9% 1,000 ML IV SCH (20:13)
[2017-12-02] MEDS: AMITRIPTYLINE 25 MG TABLET PO SCH (21:24)
[2017-12-02] MEDS: CILOSTAZOL 100 MG TABLET PO SCH (21:24)
[2017-12-02] MEDS: GABAPENTIN 300 MG CAPSULE PO SCH (21:24)
[2017-12-02] MEDS: ONDANSETRON 4 MG/2 ML VIAL IVP PRN (21:30)
[2017-12-02] MEDS ORDERED: HALOPERIDOL 5 MG/ML VIAL IVP ONE (22:27)
[2017-12-03] MEDS: SODIUM CHLORIDE 0.9% 1,000 ML IV SCH ×2 (04:03→12:10)
[2017-12-03 04:21] LABS: BASOPHILS % (AUTO) 0.6 %; EOSINOPHILS # (AUTO) 0.1 10^3/uL (0.0-0.7); EOSINOPHILS % (AUTO) 0.7 %; HGB - HEMOGLOBIN 7.4 g/dL (12.0-16.0); LYMPHOCYTES # (AUTO) 2.4 10^3/uL (1.5-3.5); LYMPHOCYTES % (AUTO) 29.5 %; MEAN CORPUSCULAR HEMOGLOBIN 24.2 pg (27.0-31.0); MEAN CORPUSCULAR HGB CONC 30.8 g/dL (32.0-36.0); MEAN CORPUSCULAR VOLUME 78.4 fL (81.0-99.0); MEAN PLATELET VOLUME 6.8 fL (7.9-10.8); MONOCYTES # (AUTO) 0.3 10^3/uL (0.0-1.0); MONOCYTES % (AUTO) 3.8 %; NEUTROPHILS # (AUTO) 5.3 10^3/uL (1.5-6.6); NEUTROPHILS % (AUTO) 65.4 %; PLT - PLATELET COUNT 517 10^3/uL (130-450); RED BLOOD COUNT 3.06 10^6/uL (4.20-5.40); RED CELL DISTRIBUTION WIDTH 17.6 % (12.0-15.0); WHITE BLOOD COUNT 8.1 x10^3/uL (4.8-10.8)
[2017-12-03 05:23] LABS: ALBUMIN 2.8 g/dL (3.2-5.5); ALBUMIN/GLOBULIN RATIO 1.1 (1.0-2.2); BILIRUBIN,TOTAL 0.3 mg/dL (0.2-1.0); CALCIUM 7.8 mg/dL (8.5-10.3); CREATININE 0.8 mg/dL (0.4-1.0); MAGNESIUM 2.1 mg/dL (1.7-2.8); PHOSPHORUS 2.4 mg/dL (2.5-4.6); TOTAL PROTEIN 5.3 g/dL (6.7-8.2)
[2017-12-03] MEDS ORDERED: INSULIN REGULAR HUMAN 100 UNIT/1 ML 10 ML MDV IVP STA (05:32)
[2017-12-03] MEDS: GABAPENTIN 300 MG CAPSULE PO SCH ×3 (05:47→20:45)
[2017-12-03] MEDS: NEUTRA-PHOS 250 MG TABLET PO SCH ×2 (05:47→08:31)
[2017-12-03] MEDS: PANTOPRAZOLE 40 MG VIAL IVP SCH (06:33)
[2017-12-03] MEDS: INSULIN GLARGINE 300 UNIT/3 ML PEN SUBQ SCH ×2 (08:21→20:36)
[2017-12-03] MEDS: INSULIN ASPART 300 UNIT/3 ML PEN SUBQ SCH ×5 (08:21→20:35)
[2017-12-03] MEDS: ENOXAPARIN 40 MG/0.4 ML SYRINGE SUBQ SCH (08:23)
[2017-12-03] MEDS: ASPIRIN EC 81 MG TABLET PO SCH (08:31)
[2017-12-03] MEDS: CILOSTAZOL 100 MG TABLET PO SCH ×2 (08:32→20:45)
[2017-12-03] MEDS: DULoxetine 20 MG CAPSULE PO SCH (08:33)
[2017-12-03] MEDS: POLYETHYLENE GLYCOL 3350 17 GM PACKET PO SCH (08:34)
[2017-12-03] MEDS: NICOTINE 21 MG PATCH TOP SCH (08:36)
[2017-12-03] MEDS: SODIUM CHLORIDE FLUSH 0.9% 10 ML SYRINGE IVP SCH ×3 (08:59→20:46)
[2017-12-03 09:27] LABS: CALCIUM 7.6 mg/dL (8.5-10.3); CREATININE 0.9 mg/dL (0.4-1.0)
[2017-12-03] MEDS: cloNIDine 0.1 MG TABLET PO SCH ×2 (09:27→20:45)
[2017-12-03] MEDS: diltiaZEM CD 120 MG CAPSULE PO SCH (09:27)
[2017-12-03] MEDS: METOPROLOL SUCCINATE 25 MG TABLET PO SCH ×2 (09:27→20:45)
[2017-12-03] MEDS ORDERED: POTASSIUM CHLORIDE 20 MEQ TABLET PO ONE (10:00)
[2017-12-03] MEDS: NYSTATIN CREAM 15 GM TUBE TOP SCH ×2 (10:23→17:24)
[2017-12-03] MEDS: KETOROLAC 30 MG/ML VIAL IVP PRN ×3 (10:30→22:04)
[2017-12-03] MEDS: ACETAMINOPHEN 325 MG TABLET PO PRN ×2 (14:24→19:30)
[2017-12-03] MEDS: ONDANSETRON 4 MG/2 ML VIAL IVP PRN (17:29)
--- NOTE | 2017-12-03 17:41 | PROVIDER PROGRESS NOTE ---
Assessment/Plan - Problem List (1) Diabetes type 1, uncontrolled Assessment/Plan: Poor control with low and very high glu yet. Will adjust Insulin doses (2) Methamphetamine abuse Assessment/Plan: Sleeping off the abuse (3) Psychiatric disorder Assessment/Plan: Her psych meds are ordered (4) PVD (peripheral vascular disease) Assessment/Plan: Stable (5) DKA (diabetic ketoacidoses) Qualifiers: Diabetes mellitus type: type 1 Assessment/Plan: Resolved - Current Meds Current Meds: Current Medications Generic Name Dose Route Start Last Admin Trade Name Freq PRN Reason Stop Dose Admin Acetaminophen 650 mg 12/01/17 20:18 12/03/17 14:24 Tylenol PO 650 mg Q4HR PRN Administration Pain 1 to 4 Amitriptyline HCl 25 mg 12/02/17 21:00 12/02/17 21:24 Elavil PO 25 mg HS SYLVIA Administration Aspirin 81 mg 12/03/17 09:00 12/03/17 08:31 Ecotrin PO 81 mg DAILY SYLVIA Administration Cilostazol 100 mg 12/02/17 21:00 12/03/17 08:32 Pletal PO 100 mg BID SYLVIA Administration Clonidine HCl 0.1 mg 12/02/17 09:00 12/03/17 09:27 Catapres PO Not Given BID SYLVIA Diltiazem HCl 120 mg 12/02/17 09:00 12/03/17 09:27 Cardizem Cd PO Not Given DAILY SYLVIA Duloxetine HCl 60 mg 12/03/17 09:00 12/03/17 08:33 Cymbalta PO 60 mg DAILY SYLVIA Administration Enoxaparin Sodium 40 mg 12/02/17 09:00 12/03/17 08:23 Lovenox SUBQ 40 mg DAILY SYLVIA Administration Gabapentin 900 mg 12/02/17 22:00 12/03/17 14:05 Neurontin PO 900 mg TID SYLVIA Administration Insulin Aspart 3 - 11 unit 12/02/17 17:00 12/03/17 16:56 Novolog SUBQ 9 unit 0800,1200,1700,2100 SYLVIA Administration Protocol Insulin Aspart 7 unit 12/03/17 17:00 12/03/17 16:56 Novolog SUBQ 7 unit TIDWM SYLVIA Administration Insulin Glargine 40 unit 12/02/17 05:39 12/03/17 08:21 Lantus Solostar SUBQ 40 unit BID SYLVIA Administration Ketorolac Tromethamine 30 mg 12/01/17 21:11 12/03/17 16:23 Toradol Inj (30mg) IVP 12/06/17 21:10 30 mg Q6HR PRN Administration PAIN Metoprolol Succinate 25 mg 12/02/17 09:00 12/03/17 09:27 Toprol Xl PO Not Given BID SYLVIA Nicotine 1 patch 12/02/17 09:00 12/03/17 08:36 Nicoderm TOP 1 patch DAILY SYLVIA Administration Nystatin 15 applic 12/01/17 21:00 12/03/17 17:24 Mycostatin Cream TOP 1 applic BID SYLVIA Administration Ondansetron HCl 4 mg 12/01/17 20:18 12/03/17 17:29 Zofran Inj IVP 4 mg Q6HR PRN Administration Nausea / Vomiting Pantoprazole Sodium 40 mg 12/02/17 07:00 12/03/17 06:33 Protonix IVP 40 mg QDAC SYLVIA Administration Polyethylene Glycol 17 gm 12/03/17 09:00 12/03/17 08:34 Miralax PO 17 gm DAILY SYLVIA Administration Sodium Chloride 10 ml 12/02/17 01:00 12/03/17 17:24 Normal Saline Flush 0.9% IVP 20 ml 0100,0900,1700 SYLVIA Administration Sodium Chloride 10 ml 12/01/17 20:18 12/02/17 16:41 Normal Saline Flush 0.9% IVP 10 ml PRN PRN Administration NEEDED PER PROVIDER ORDERS - Lab Result Fish Bone Diagrams: 12/03/17 04:07 12/03/17 09:11 - Additional Planning My Orders: My Active Orders 12/02/17 17:00 Insulin Aspart [NovoLOG] 3 - 11 unit SUBQ 0800,1200,1700,2100 12/03/17 17:00 Insulin Aspart [NovoLOG] 7 unit SUBQ TIDWM Subjective - Subjective Patient Reports: Feeling Better, Other (Told her RN she doesnt feel right yet) Nursing Reports: Other (BP low (100-110) and some meds had to be held) Objective Vital Signs: Vital Signs - 24 hr 12/02/17 12/02/17 12/02/17 18:00 19:00 20:00 Temperature 37.4 C Heart Rate [ 107 H 103 H 99 Monitoring electrodes] Respiratory 16 18 16 Rate Blood Pressure 147/106 H 134/86 H 131/82 H [Left Brachial artery] Blood Pressure [Right Brachial artery] O2 Saturation 96 97 98 12/02/17 12/02/17 12/02/17 21:00 22:00 23:00 Temperature Heart Rate [ 108 H 110 H 105 H Monitoring electrodes] Respiratory 15 14 22 Rate Blood Pressure 117/70 130/88 H 125/85 H [Left Brachial artery] Blood Pressure [Right Brachial artery] O2 Saturation 97 12/03/17 12/03/17 12/03/17 00:00 01:00 02:00 Temperature 37.0 C Heart Rate [ 103 H 98 94 Monitoring electrodes] Respiratory 20 20 22 Rate Blood Pressure 105/61 110/65 107/71 [Left Brachial artery] Blood Pressure [Right Brachial artery] O2 Saturation 97 95 12/03/17 12/03/17 12/03/17 03:00 04:00 05:00 Temperature 36.5 C Heart Rate [ 91 96 99 Monitoring electrodes] Respiratory 22 11 L 22 Rate Blood Pressure 99/64 120/87 H 113/67 [Left Brachial artery] Blood Pressure [Right Brachial artery] O2 Saturation 96 12/03/17 12/03/17 12/03/17 06:00 07:00 08:00 Temperature 37.1 C Heart Rate [ 95 93 102 H Monitoring electrodes] Respiratory 20 11 L 21 Rate Blood Pressure 124/75 113/71 [Left Brachial artery] Blood Pressure 96/61 [Right Brachial artery] O2 Saturation 96 96 12/03/17 12/03/17 12/03/17 08:38 08:49 09:00 Temperature Heart Rate [ 100 102 H Monitoring electrodes] Respiratory 21 Rate Blood Pressure [Left Brachial artery] Blood Pressure 96/57 L 90/48 L [Right Brachial artery] O2 Saturation 93 12/03/17 12/03/17 12/03/17 10:00 11:00 12:00 Temperature Heart Rate [ 106 H 114 H 124 H Monitoring electrodes] Respiratory 24 20 20 Rate Blood Pressure [Left Brachial artery] Blood Pressure 110/67 112/65 122/73 [Right Brachial artery] O2 Saturation 98 12/03/17 12/03/17 12/03/17 13:00 14:00 14:09 Temperature 36.7 C Heart Rate [ 116 H 125 H Monitoring electrodes] Respiratory 16 21 23 Rate Blood Pressure [Left Brachial artery] Blood Pressure 124/68 129/78 [Right Brachial artery] O2 Saturation 97 12/03/17 12/03/17 15:00 16:00 Temperature Heart Rate [ 115 H 116 H Monitoring electrodes] Respiratory 21 22 Rate Blood Pressure [Left Brachial artery] Blood Pressure 119/63 124/79 [Right Brachial artery] O2 Saturation Oxygen O2 Source [Without Activity] Room air O2 Source Room air I&O (Last 24 Hrs): Intake and Output Totals x24h 12/01/17 12/02/17 12/03/17 23:59 23:59 23:59 Intake Total 1180.4 7223.266 5818.334 Output Total 950 4820 4870 Balance 230.4 2403.266 948.334 General: Alert HEENT: Mucous membr. moist/pink, Other (edentulous) Neck: Supple Neuro: Non Focal Cardiovascular: No murmurs Respiratory: No respiratory distress Abdomen: Soft Extremities: Other (Multiple amputated toes) - Results Results: Laboratory Results WBC 8.1 x10^3/uL (4.8-10.8) 12/03/17 04:07 RBC 3.06 10^6/uL (4.20-5.40) L 12/03/17 04:07 Hgb 7.4 g/dL (12.0-16.0) L 12/03/17 04:07 Hct 24.0 % (37.0-47.0) L 12/03/17 04:07 MCV 78.4 fL (81.0-99.0) L 12/03/17 04:07 MCH 24.2 pg (27.0-31.0) L 12/03/17 04:07 MCHC 30.8 g/dL (32.0-36.0) L 12/03/17 04:07 RDW 17.6 % (12.0-15.0) H 12/03/17 04:07 Plt Count 517 10^3/uL (130-450) H 12/03/17 04:07 MPV 6.8 fL (7.9-10.8) L 12/03/17 04:07 Neut # (Auto) 5.3 10^3/uL (1.5-6.6) 12/03/17 04:07 Lymph # (Auto) 2.4 10^3/uL (1.5-3.5) 12/03/17 04:07 [place] # (Auto) 0.3 10^3/uL (0.0-1.0) 12/03/17 04:07 Eos # (Auto) 0.1 10^3/uL (0.0-0.7) 12/03/17 04:07 Baso # (Auto) 0.0 10^3/uL (0.0-0.1) 12/03/17 04:07 Absolute Nucleated RBC 0.00 x10^3/uL 12/03/17 04:07 Nucleated RBC % 0.0 /100WBC 12/03/17 04:07 VBG pH 7.359 (7.31-7.41) 12/02/17 05:55 VBG pCO2 22.6 mmHg (41-51) L 12/01/17 18:50 VBG pO2 92.8 mmHg (25-47) H 12/01/17 18:50 VBG HCO3 6.7 mmol/L (23-28) L 12/01/17 18:50 VBG Total CO2 7.4 mmol/L (24-29) L 12/01/17 18:50 VBG O2 Saturation 93.8 % (60-80) H 12/01/17 18:50 VBG Base Excess -21.5 mmol/L (-2 - +2) L 12/01/17 18:50 Ionized Calcium 1.08 mmol/L (1.15-1.33) L 12/02/17 05:55 Sodium 133 mmol/L (135-145) L 12/03/17 09:11 Potassium 3.4 mmol/L (3.5-5.0) L 12/03/17 09:11 Chloride 104 mmol/L (101-111) 12/03/17 09:11 Carbon Dioxide 14 mmol/L (21-32) L 12/03/17 09:11 Anion Gap 15.0 (6-13) H 12/03/17 09:11 BUN 24 mg/dL (6-20) H 12/03/17 09:11 Creatinine 0.9 mg/dL (0.4-1.0) 12/03/17 09:11 Estimated GFR (MDRD) 71 (>89) L 12/03/17 09:11 Glucose 416 mg/dL (70-100) H 12/03/17 09:11 POC Whole Bld Glucose 310 mg/dL (70 - 100) H 12/03/17 16:51 Glycated Hemoglobin 11.3 % (4.6-6.2) H 12/02/17 05:00 Estim Average Glucose 278 (70-100) H 12/02/17 05:00 Lactic Acid 1.7 mmol/L (0.5-2.2) 12/01/17 18:50 Calcium 7.6 mg/dL (8.5-10.3) L 12/03/17 09:11 Phosphorus 2.4 mg/dL (2.5-4.6) L 12/03/17 04:07 Magnesium 2.1 mg/dL (1.7-2.8) 12/03/17 04:07 Total Bilirubin 0.3 mg/dL (0.2-1.0) 12/03/17 04:07 AST 28 IU/L (10-42) 12/03/17 04:07 ALT 44 IU/L (10-60) 12/03/17 04:07 Alkaline Phosphatase 147 IU/L (42-121) H 12/03/17 04:07 Troponin I < 0.04 ng/mL (<0.49) 12/02/17 08:22 Total Protein 5.3 g/dL (6.7-8.2) L 12/03/17 04:07 Albumin 2.8 g/dL (3.2-5.5) L 12/03/17 04:07 Globulin 2.5 g/dL (2.1-4.2) 12/03/17 04:07 Albumin/Globulin Ratio 1.1 (1.0-2.2) 12/03/17 04:07 Lipase 26 U/L (22-51) 12/01/17 18:50 Serum HCG, Qual NEGATIVE 12/01/17 18:50 Urine Color LIGHT YELLOW 12/01/17 21:45 Urine Clarity CLEAR (CLEAR) 12/01/17 21:45 Urine pH 5.5 PH (5.0-7.5) 12/01/17 21:45 Ur Specific [place] 1.025 (1.002-1.030) 12/01/17 21:45 Urine Protein NEGATIVE mg/dL (NEGATIVE) 12/01/17 21:45 Urine Glucose (UA) >=1000 mg/dL (NEGATIVE) H 12/01/17 21:45 Urine Ketones >=80 mg/dL (NEGATIVE) H 12/01/17 21:45 Urine Occult Blood TRACE-INTA (NEGATIVE) 12/01/17 21:45 Urine Nitrite NEGATIVE (NEGATIVE) 12/01/17 21:45 Urine Bilirubin NEGATIVE (NEGATIVE) 12/01/17 21:45 Urine Urobilinogen 0.2 (NORMAL) E.U./dL (NORMAL) 12/01/17 21:45 Ur Leukocyte Esterase NEGATIVE (NEGATIVE) 12/01/17 21:45 Ur Microscopic Review NOT INDICATED 12/01/17 21:45 Urine Culture Comments NOT INDICATED 12/01/17 21:45 Urine HCG, Qual NEGATIVE 12/01/17 21:45 Salicylates < 6.0 mg/dL 12/01/17 18:50 Urine Opiates Screen POSITIVE (NEGATIVE) H 12/01/17 21:45 Ur Oxycodone Screen NEGATIVE (NEGATIVE) 12/01/17 21:45 Urine Methadone Screen NEGATIVE (NEGATIVE) 12/01/17 21:45 Ur Propoxyphene Screen NEGATIVE (NEGATIVE) 12/01/17 21:45 Acetaminophen < 10 ug/mL (10-30) L 12/01/17 18:50 Ur Barbiturates Screen NEGATIVE (NEGATIVE) 12/01/17 21:45 Ur Tricyclics Screen NEGATIVE (NEGATIVE) 12/01/17 21:45 Ur Phencyclidine Scrn NEGATIVE (NEGATIVE) 12/01/17 21:45 Ur Amphetamine Screen NEGATIVE (NEGATIVE) 12/01/17 21:45 U Methamphetamines Scrn POSITIVE (NEGATIVE) H 12/01/17 21:45 U Benzodiazepines Scrn NEGATIVE (NEGATIVE) 12/01/17 21:45 Urine Cocaine Screen NEGATIVE (NEGATIVE) 12/01/17 21:45 U Cannabinoids Screen NEGATIVE (NEGATIVE) 12/01/17 21:45 Ethyl Alcohol < 5.0 mg/dL 12/01/17 18:50 Serum Ketones MODERATE (NEGATIVE) H 12/02/17 16:30 - Procedures Procedures: Procedures DETACHMENT AT LEFT 4TH TOE, LOW, OPEN APPROACH (06/30/17) DETACHMENT AT RIGHT 1ST TOE, LOW, OPEN APPROACH (03/14/17) DETACHMENT AT RIGHT 2ND TOE, HIGH, OPEN APPROACH (06/30/17) DETACHMENT AT RIGHT 4TH TOE, HIGH, OPEN APPROACH (06/30/17) INSERT INFUSION DEV IN R INT JUGULAR VEIN, PERC (04/21/16) INSERTION OF INFUSION DEV INTO R SUBCLAV VEIN, PERC APPROACH (03/14/17) INSERTION OF INFUSION DEV INTO SUP VENA CAVA, PERC APPROACH (10/26/17) INSERTION OF INFUSION DEVICE INTO LOWER VEIN, PERC APPROACH (08/13/17) INSERTION OF INFUSION DEVICE INTO R ATRIUM, PERC APPROACH (09/27/17) TRANSFUSE NONAUT RED BLOOD CELLS IN PERIPH VEIN, PERC (01/22/17) ULTRASONOGRAPHY OF RIGHT JUGULAR VEINS, GUIDANCE (04/21/16)
[2017-12-03] MEDS: SODIUM CHLORIDE FLUSH 0.9% 10 ML SYRINGE IVP PRN ×2 (18:35→22:04)
[2017-12-03] MEDS: AMITRIPTYLINE 25 MG TABLET PO SCH (20:45)
[2017-12-04] MEDS: KETOROLAC 30 MG/ML VIAL IVP PRN ×3 (04:02→17:08)
[2017-12-04] MEDS: SODIUM CHLORIDE FLUSH 0.9% 10 ML SYRINGE IVP PRN ×5 (04:02→21:11)
[2017-12-04 06:05] LABS: BASOPHILS % (AUTO) 0.5 %; EOSINOPHILS # (AUTO) 0.1 10^3/uL (0.0-0.7); EOSINOPHILS % (AUTO) 1.3 %; LYMPHOCYTES # (AUTO) 1.6 10^3/uL (1.5-3.5); LYMPHOCYTES % (AUTO) 27.3 %; MEAN CORPUSCULAR HEMOGLOBIN 23.7 pg (27.0-31.0); MEAN CORPUSCULAR HGB CONC 31.1 g/dL (32.0-36.0); MEAN CORPUSCULAR VOLUME 76.4 fL (81.0-99.0); MEAN PLATELET VOLUME 6.5 fL (7.9-10.8); MONOCYTES # (AUTO) 0.3 10^3/uL (0.0-1.0); MONOCYTES % (AUTO) 4.6 %; NEUTROPHILS # (AUTO) 3.8 10^3/uL (1.5-6.6); NEUTROPHILS % (AUTO) 66.3 %; PLT - PLATELET COUNT 450 10^3/uL (130-450); RED BLOOD COUNT 2.93 10^6/uL (4.20-5.40); RED CELL DISTRIBUTION WIDTH 17.2 % (12.0-15.0); WHITE BLOOD COUNT 5.7 x10^3/uL (4.8-10.8)
[2017-12-04 06:10] LABS: CREATININE 0.4 mg/dL (0.4-1.0); MAGNESIUM 1.7 mg/dL (1.7-2.8); PHOSPHORUS 2.9 mg/dL (2.5-4.6)
[2017-12-04] MEDS: PANTOPRAZOLE 40 MG VIAL IVP SCH (06:17)
[2017-12-04] MEDS: GABAPENTIN 300 MG CAPSULE PO SCH ×3 (06:17→20:37)
[2017-12-04] MEDS: INSULIN ASPART 300 UNIT/3 ML PEN SUBQ SCH ×7 (07:54→20:38)
[2017-12-04] MEDS: CILOSTAZOL 100 MG TABLET PO SCH ×2 (08:28→20:37)
[2017-12-04] MEDS: METOPROLOL SUCCINATE 25 MG TABLET PO SCH ×2 (08:28→20:37)
[2017-12-04] MEDS: NICOTINE 21 MG PATCH TOP SCH (08:28)
[2017-12-04] MEDS: DULoxetine 20 MG CAPSULE PO SCH (08:28)
[2017-12-04] MEDS: diltiaZEM CD 120 MG CAPSULE PO SCH (08:29)
[2017-12-04] MEDS: ASPIRIN EC 81 MG TABLET PO SCH (08:29)
[2017-12-04] MEDS: cloNIDine 0.1 MG TABLET PO SCH ×2 (08:29→20:37)
[2017-12-04] MEDS: ENOXAPARIN 40 MG/0.4 ML SYRINGE SUBQ SCH (08:29)
[2017-12-04] MEDS: NYSTATIN CREAM 15 GM TUBE TOP SCH ×2 (08:30→20:38)
[2017-12-04] MEDS: INSULIN GLARGINE 300 UNIT/3 ML PEN SUBQ SCH ×2 (08:30→20:44)
[2017-12-04] MEDS: SODIUM CHLORIDE FLUSH 0.9% 10 ML SYRINGE IVP SCH ×2 (08:31→17:14)
[2017-12-04] MEDS: POLYETHYLENE GLYCOL 3350 17 GM PACKET PO SCH (08:31)
[2017-12-04] MEDS ORDERED: SODIUM CHLORIDE 0.9% MINIBAG 100 ML IV ONE (08:35)
--- NOTE | 2017-12-04 08:46 | PROVIDER PROGRESS NOTE ---
Assessment/Plan - Problem List (1) Diarrhea Assessment/Plan: Will check C. diff, since she has needed antibiotics in the past few weeks. She also needs topical cream for hemorrhoid treatment. (2) Microcytic hypochromic anemia Assessment/Plan: A rather quick drop in H/H was noted today. This may be the cause of her low BP yesterday, and some BP/cardiac meds were not given yesterday. Pt has been ordered to get 2 U PRBCs transfused this am. Will follow H/H in 12 hours. Obtain Iron panel and guaic her stool. If stool is heme positive, she may need an EGD. Continue GI treatment for a possible peptic ulcer. (3) Diabetes type 1, uncontrolled Assessment/Plan: Glu now running 200's. Cont carb-controlled diet, long acting and meal-time Insulin plus ss Insulin coverage for fingerstick glu checks. (4) Methamphetamine abuse Assessment/Plan: Pt has awoken from her post-Meth abuse lethargy (5) Psychiatric disorder Assessment/Plan: Continue her psych meds while here. (6) PVD (peripheral vascular disease) Assessment/Plan: Continue ASA (unless has heme pos stool) and Pletal po while here. (7) DKA (diabetic ketoacidoses) Qualifiers: Diabetes mellitus type: type 1 Assessment/Plan: Resolved - Current Meds Current Meds: Current Medications Generic Name Dose Route Start Last Admin Trade Name Freq PRN Reason Stop Dose Admin Acetaminophen 650 mg 12/01/17 20:18 12/03/17 19:30 Tylenol PO 650 mg Q4HR PRN Administration Pain 1 to 4 Amitriptyline HCl 25 mg 12/02/17 21:00 12/03/17 20:45 Elavil PO 25 mg HS SYLVIA Administration Aspirin 81 mg 12/03/17 09:00 12/04/17 08:29 Ecotrin PO 81 mg DAILY SYLVIA Administration Cilostazol 100 mg 12/02/17 21:00 12/04/17 08:28 Pletal PO 100 mg BID SYLVIA Administration Clonidine HCl 0.1 mg 12/02/17 09:00 12/04/17 08:29 Catapres PO 0.1 mg BID SYLVIA Administration Diltiazem HCl 120 mg 12/02/17 09:00 12/04/17 08:29 Cardizem Cd PO 120 mg DAILY SYLVIA Administration Duloxetine HCl 60 mg 12/03/17 09:00 12/04/17 08:28 Cymbalta PO 60 mg DAILY SYLVIA Administration Enoxaparin Sodium 40 mg 12/02/17 09:00 12/04/17 08:29 Lovenox SUBQ Not Given DAILY SYLVIA Gabapentin 900 mg 12/02/17 22:00 12/04/17 06:17 Neurontin PO 900 mg TID SYLVIA Administration Insulin Aspart 3 - 11 unit 12/02/17 17:00 12/04/17 07:54 Novolog SUBQ 5 unit 0800,1200,1700,2100 SYLVIA Administration Protocol Insulin Aspart 7 unit 12/03/17 17:00 12/04/17 07:54 Novolog SUBQ 7 unit TIDWM SYLVIA Administration Insulin Glargine 40 unit 12/02/17 05:39 12/04/17 08:30 Lantus Solostar SUBQ 40 unit BID SYLVIA Administration Ketorolac Tromethamine 30 mg 12/01/17 21:11 12/04/17 04:02 Toradol Inj (30mg) IVP 12/06/17 21:10 30 mg Q6HR PRN Administration PAIN Metoprolol Succinate 25 mg 12/02/17 09:00 12/04/17 08:28 Toprol Xl PO 25 mg BID SYLVIA Administration Nicotine 1 patch 12/02/17 09:00 12/04/17 08:28 Nicoderm TOP 1 patch DAILY SYLVIA Administration Nystatin 15 applic 12/01/17 21:00 12/04/17 08:30 Mycostatin Cream TOP 15 applic BID SYLVIA Administration Ondansetron HCl 4 mg 12/01/17 20:18 12/03/17 17:29 Zofran Inj IVP 4 mg Q6HR PRN Administration Nausea / Vomiting Pantoprazole Sodium 40 mg 12/02/17 07:00 12/04/17 06:17 Protonix IVP 40 mg QDAC SYLVIA Administration Polyethylene Glycol 17 gm 12/03/17 09:00 12/04/17 08:31 Miralax PO Not Given DAILY SYLVIA Sodium Chloride 10 ml 12/02/17 01:00 12/04/17 08:31 Normal Saline Flush 0.9% IVP 10 ml 0100,0900,1700 SYLVIA Administration Sodium Chloride 10 ml 12/01/17 20:18 12/04/17 06:17 Normal Saline Flush 0.9% IVP 20 ml PRN PRN Administration NEEDED PER PROVIDER ORDERS - Lab Result Fish Bone Diagrams: 12/04/17 05:40 12/04/17 05:40 - Additional Planning My Orders: My Active Orders 12/03/17 17:00 Insulin Aspart [NovoLOG] 7 unit SUBQ TIDWM 12/04/17 Guiaic [OCCULT BLOOD IN PAT. SINGLE] [RAPID] Urgent IRON TIBC PANEL [CHEM] Routine 12/04/17 17:00 HEMOGLOBIN AND HEMATOCRIT [HEME] Timed 12/05/17 05:00 BMP - BASIC METABOLIC PANEL [CHEM] DAILYLAB Subjective - Subjective Patient Reports: Feeling Better, Other (Having "explosive, semi-formed BMs". Has hemorrhoid pain.) Nursing Reports: Other Objective Vital Signs: Vital Signs - 24 hr 12/03/17 12/03/17 12/03/17 08:49 09:00 10:00 Temperature Heart Rate [ 102 H 106 H Monitoring electrodes] Respiratory 21 24 Rate Blood Pressure 90/48 L 110/67 [Right Brachial artery] O2 Saturation 93 98 12/03/17 12/03/17 12/03/17 11:00 12:00 13:00 Temperature Heart Rate [ 114 H 124 H 116 H Monitoring electrodes] Respiratory 20 20 16 Rate Blood Pressure 112/65 122/73 124/68 [Right Brachial artery] O2 Saturation 12/03/17 12/03/17 12/03/17 14:00 14:09 15:00 Temperature 36.7 C Heart Rate [ 125 H 115 H Monitoring electrodes] Respiratory 21 23 21 Rate Blood Pressure 129/78 119/63 [Right Brachial artery] O2 Saturation 97 12/03/17 12/03/17 12/03/17 16:00 18:00 20:00 Temperature 36.2 C L Heart Rate [ 116 H 115 H 114 H Monitoring electrodes] Respiratory 22 21 18 Rate Blood Pressure 124/79 122/72 130/87 H [Right Brachial artery] O2 Saturation 96 97 12/04/17 12/04/17 12/04/17 00:02 04:14 07:32 Temperature 36.3 C L 36.3 C L 36.6 C Heart Rate [ 109 H 94 96 Monitoring electrodes] Respiratory 21 20 18 Rate Blood Pressure 140/93 H 117/86 H 132/92 H [Right Brachial artery] O2 Saturation 97 100 96 Oxygen O2 Source [Without Activity] Room air O2 Source Room air I&O (Last 24 Hrs): Intake and Output Totals x24h 12/02/17 12/03/17 12/04/17 23:59 23:59 23:59 Intake Total 7223.266 8179.167 460 Output Total 4899 4870 Balance 2403.266 3309.167 460 - Results Results: Laboratory Results WBC 5.7 x10^3/uL (4.8-10.8) 12/04/17 05:40 RBC 2.93 10^6/uL (4.20-5.40) L 12/04/17 05:40 Hgb 7.0 g/dL (12.0-16.0) L* 12/04/17 05:40 Hct 22.4 % (37.0-47.0) L 12/04/17 05:40 MCV 76.4 fL (81.0-99.0) L 12/04/17 05:40 MCH 23.7 pg (27.0-31.0) L 12/04/17 05:40 MCHC 31.1 g/dL (32.0-36.0) L 12/04/17 05:40 RDW 17.2 % (12.0-15.0) H 12/04/17 05:40 Plt Count 450 10^3/uL (130-450) 12/04/17 05:40 MPV 6.5 fL (7.9-10.8) L 12/04/17 05:40 Neut # (Auto) 3.8 10^3/uL (1.5-6.6) 12/04/17 05:40 Lymph # (Auto) 1.6 10^3/uL (1.5-3.5) 12/04/17 05:40 [place] # (Auto) 0.3 10^3/uL (0.0-1.0) 12/04/17 05:40 Eos # (Auto) 0.1 10^3/uL (0.0-0.7) 12/04/17 05:40 Baso # (Auto) 0.0 10^3/uL (0.0-0.1) 12/04/17 05:40 Absolute Nucleated RBC 0.00 x10^3/uL 12/04/17 05:40 Nucleated RBC % 0.0 /100WBC 12/04/17 05:40 VBG pH 7.359 (7.31-7.41) 12/02/17 05:55 VBG pCO2 22.6 mmHg (41-51) L 12/01/17 18:50 VBG pO2 92.8 mmHg (25-47) H 12/01/17 18:50 VBG HCO3 6.7 mmol/L (23-28) L 12/01/17 18:50 VBG Total CO2 7.4 mmol/L (24-29) L 12/01/17 18:50 VBG O2 Saturation 93.8 % (60-80) H 12/01/17 18:50 VBG Base Excess -21.5 mmol/L (-2 - +2) L 12/01/17 18:50 Ionized Calcium 1.08 mmol/L (1.15-1.33) L 12/02/17 05:55 Sodium 140 mmol/L (135-145) 12/04/17 05:40 Potassium 3.3 mmol/L (3.5-5.0) L 12/04/17 05:40 Chloride 107 mmol/L (101-111) 12/04/17 05:40 Carbon Dioxide 26 mmol/L (21-32) 12/04/17 05:40 Anion Gap 7.0 (6-13) 12/04/17 05:40 BUN 23 mg/dL (6-20) H 12/04/17 05:40 Creatinine 0.4 mg/dL (0.4-1.0) 12/04/17 05:40 Estimated GFR (MDRD) 181 (>89) 12/04/17 05:40 Glucose 186 mg/dL (70-100) H 12/04/17 05:40 POC Whole Bld Glucose 197 mg/dL (70 - 100) H 12/04/17 07:30 Glycated Hemoglobin 11.3 % (4.6-6.2) H 12/02/17 05:00 Estim Average Glucose 278 (70-100) H 12/02/17 05:00 Lactic Acid 1.7 mmol/L (0.5-2.2) 12/01/17 18:50 Calcium 8.0 mg/dL (8.5-10.3) L 12/04/17 05:40 Phosphorus 2.9 mg/dL (2.5-4.6) 12/04/17 05:40 Magnesium 1.7 mg/dL (1.7-2.8) 12/04/17 05:40 Total Bilirubin 0.3 mg/dL (0.2-1.0) 12/03/17 04:07 AST 28 IU/L (10-42) 12/03/17 04:07 ALT 44 IU/L (10-60) 12/03/17 04:07 Alkaline Phosphatase 147 IU/L (42-121) H 12/03/17 04:07 Troponin I < 0.04 ng/mL (<0.49) 12/02/17 08:22 Total Protein 5.3 g/dL (6.7-8.2) L 12/03/17 04:07 Albumin 2.8 g/dL (3.2-5.5) L 12/03/17 04:07 Globulin 2.5 g/dL (2.1-4.2) 12/03/17 04:07 Albumin/Globulin Ratio 1.1 (1.0-2.2) 12/03/17 04:07 Lipase 26 U/L (22-51) 12/01/17 18:50 Serum HCG, Qual NEGATIVE 12/01/17 18:50 Urine Color LIGHT YELLOW 12/01/17 21:45 Urine Clarity CLEAR (CLEAR) 12/01/17 21:45 Urine pH 5.5 PH (5.0-7.5) 12/01/17 21:45 Ur Specific [place] 1.025 (1.002-1.030) 12/01/17 21:45 Urine Protein NEGATIVE mg/dL (NEGATIVE) 12/01/17 21:45 Urine Glucose (UA) >=1000 mg/dL (NEGATIVE) H 12/01/17 21:45 Urine Ketones >=80 mg/dL (NEGATIVE) H 12/01/17 21:45 Urine Occult Blood TRACE-INTA (NEGATIVE) 12/01/17 21:45 Urine Nitrite NEGATIVE (NEGATIVE) 12/01/17 21:45 Urine Bilirubin NEGATIVE (NEGATIVE) 12/01/17 21:45 Urine Urobilinogen 0.2 (NORMAL) E.U./dL (NORMAL) 12/01/17 21:45 Ur Leukocyte Esterase NEGATIVE (NEGATIVE) 12/01/17 21:45 Ur Microscopic Review NOT INDICATED 12/01/17 21:45 Urine Culture Comments NOT INDICATED 12/01/17 21:45 Urine HCG, Qual NEGATIVE 12/01/17 21:45 Salicylates < 6.0 mg/dL 12/01/17 18:50 Urine Opiates Screen POSITIVE (NEGATIVE) H 12/01/17 21:45 Ur Oxycodone Screen NEGATIVE (NEGATIVE) 12/01/17 21:45 Urine Methadone Screen NEGATIVE (NEGATIVE) 12/01/17 21:45 Ur Propoxyphene Screen NEGATIVE (NEGATIVE) 12/01/17 21:45 Acetaminophen < 10 ug/mL (10-30) L 12/01/17 18:50 Ur Barbiturates Screen NEGATIVE (NEGATIVE) 12/01/17 21:45 Ur Tricyclics Screen NEGATIVE (NEGATIVE) 12/01/17 21:45 Ur Phencyclidine Scrn NEGATIVE (NEGATIVE) 12/01/17 21:45 Ur Amphetamine Screen NEGATIVE (NEGATIVE) 12/01/17 21:45 U Methamphetamines Scrn POSITIVE (NEGATIVE) H 12/01/17 21:45 U Benzodiazepines Scrn NEGATIVE (NEGATIVE) 12/01/17 21:45 Urine Cocaine Screen NEGATIVE (NEGATIVE) 12/01/17 21:45 U Cannabinoids Screen NEGATIVE (NEGATIVE) 12/01/17 21:45 Ethyl Alcohol < 5.0 mg/dL 12/01/17 18:50 Serum Ketones SMALL (NEGATIVE) H 12/03/17 18:40 Blood Type O POSITIVE 12/04/17 06:26 Antibody Screen NEGATIVE 12/04/17 06:26 Crossmatch IS Only See Detail 12/04/17 06:26 - Procedures Procedures: Procedures DETACHMENT AT LEFT 4TH TOE, LOW, OPEN APPROACH (06/30/17) DETACHMENT AT RIGHT 1ST TOE, LOW, OPEN APPROACH (03/14/17) DETACHMENT AT RIGHT 2ND TOE, HIGH, OPEN APPROACH (06/30/17) DETACHMENT AT RIGHT 4TH TOE, HIGH, OPEN APPROACH (06/30/17) INSERT INFUSION DEV IN R INT JUGULAR VEIN, PERC (04/21/16) INSERTION OF INFUSION DEV INTO R SUBCLAV VEIN, PERC APPROACH (03/14/17) INSERTION OF INFUSION DEV INTO SUP VENA CAVA, PERC APPROACH (10/26/17) INSERTION OF INFUSION DEVICE INTO LOWER VEIN, PERC APPROACH (08/13/17) INSERTION OF INFUSION DEVICE INTO R ATRIUM, PERC APPROACH (09/27/17) TRANSFUSE NONAUT RED BLOOD CELLS IN PERIPH VEIN, PERC (01/22/17) ULTRASONOGRAPHY OF RIGHT JUGULAR VEINS, GUIDANCE (04/21/16) ABX Reporting Has patient been on IV antibiotics over the past 48 hours?: No
[2017-12-04] MEDS: ONDANSETRON 4 MG/2 ML VIAL IVP PRN ×2 (09:02→20:38)
[2017-12-04] MEDS: ACETAMINOPHEN 325 MG TABLET PO PRN ×2 (09:02→14:44)
[2017-12-04] MEDS ORDERED: POTASSIUM CHLORIDE 20 MEQ TABLET PO SCH (10:28)
[2017-12-04] MEDS: FAMOTIDINE 20 MG TABLET PO SCH ×2 (11:02→20:37)
[2017-12-04 12:22] LABS: % IRON SATURATION 5 % (20-50); IRON 15 ug/dL (28-170); TOTAL IRON BINDING CAPACITY 323 ug/dL (250-450); TRANSFERRIN 231 mg/dL (192-382)
[2017-12-04] MEDS: PROCHLORPERAZINE 10 MG/2 ML VIAL IVP PRN ×2 (13:57→21:11)
[2017-12-04] MEDS ORDERED: HYDROCORTISONE 1% CREAM 28 GM TUBE TOP PRN (15:39)
[2017-12-04] MEDS ORDERED: WITCH HAZEL/GLYCERIN 1 EACH MED..PAD TOP PRN (16:49)
[2017-12-04 17:16] LABS: HGB - HEMOGLOBIN 9.4 g/dL (12.0-16.0)
[2017-12-04] MEDS: metroNIDAZOLE 250 MG TABLET PO SCH (20:36)
[2017-12-04] MEDS: AMITRIPTYLINE 25 MG TABLET PO SCH (20:37)
[2017-12-04] MEDS ORDERED: HYDROCORTISONE/PRAMOXINE 10 GM PR SCH (21:00)
[2017-12-05] MEDS: SODIUM CHLORIDE FLUSH 0.9% 10 ML SYRINGE IVP SCH ×3 (02:44→17:30)
[2017-12-05] MEDS: KETOROLAC 30 MG/ML VIAL IVP PRN ×3 (02:47→17:31)
[2017-12-05] MEDS: ONDANSETRON 4 MG/2 ML VIAL IVP PRN ×3 (05:05→17:31)
[2017-12-05] MEDS: SODIUM CHLORIDE FLUSH 0.9% 10 ML SYRINGE IVP PRN ×5 (05:05→19:42)
[2017-12-05] MEDS: PROCHLORPERAZINE 10 MG/2 ML VIAL IVP PRN ×3 (05:25→19:41)
[2017-12-05 06:06] LABS: BASOPHILS % (AUTO) 0.8 %; EOSINOPHILS # (AUTO) 0.1 10^3/uL (0.0-0.7); EOSINOPHILS % (AUTO) 1.6 %; HGB - HEMOGLOBIN 9.4 g/dL (12.0-16.0); LYMPHOCYTES % (AUTO) 42.7 %; MEAN CORPUSCULAR HEMOGLOBIN 25.3 pg (27.0-31.0); MEAN CORPUSCULAR HGB CONC 32.9 g/dL (32.0-36.0); MEAN CORPUSCULAR VOLUME 76.9 fL (81.0-99.0); MEAN PLATELET VOLUME 6.9 fL (7.9-10.8); MONOCYTES # (AUTO) 0.3 10^3/uL (0.0-1.0); MONOCYTES % (AUTO) 5.4 %; NEUTROPHILS # (AUTO) 2.4 10^3/uL (1.5-6.6); NEUTROPHILS % (AUTO) 49.5 %; PLT - PLATELET COUNT 347 10^3/uL (130-450); RED CELL DISTRIBUTION WIDTH 16.7 % (12.0-15.0); WHITE BLOOD COUNT 4.7 x10^3/uL (4.8-10.8)
[2017-12-05 06:12] LABS: CALCIUM 7.7 mg/dL (8.5-10.3); CREATININE 0.3 mg/dL (0.4-1.0)
[2017-12-05] MEDS: GABAPENTIN 300 MG CAPSULE PO SCH ×3 (06:22→20:54)
[2017-12-05] MEDS: metroNIDAZOLE 250 MG TABLET PO SCH ×3 (06:22→20:00)
[2017-12-05] MEDS: POLYETHYLENE GLYCOL 3350 17 GM PACKET PO SCH (08:14)
[2017-12-05] MEDS: INSULIN ASPART 300 UNIT/3 ML PEN SUBQ SCH ×7 (10:19→20:56)
[2017-12-05] MEDS: INSULIN GLARGINE 300 UNIT/3 ML PEN SUBQ SCH ×2 (10:19→21:12)
[2017-12-05] MEDS: FAMOTIDINE 20 MG TABLET PO SCH ×2 (10:20→20:55)
[2017-12-05] MEDS: cloNIDine 0.1 MG TABLET PO SCH ×2 (10:20→20:54)
[2017-12-05] MEDS: diltiaZEM CD 120 MG CAPSULE PO SCH (10:20)
[2017-12-05] MEDS: ENOXAPARIN 40 MG/0.4 ML SYRINGE SUBQ SCH ×2 (10:20→10:28)
[2017-12-05] MEDS: ASPIRIN EC 81 MG TABLET PO SCH (10:20)
[2017-12-05] MEDS: DULoxetine 20 MG CAPSULE PO SCH (10:20)
[2017-12-05] MEDS: CILOSTAZOL 100 MG TABLET PO SCH ×2 (10:20→20:54)
[2017-12-05] MEDS: METOPROLOL SUCCINATE 25 MG TABLET PO SCH ×2 (10:20→20:55)
[2017-12-05] MEDS: NICOTINE 21 MG PATCH TOP SCH (10:21)
[2017-12-05] MEDS: NYSTATIN CREAM 15 GM TUBE TOP SCH ×2 (10:21→20:56)
--- NOTE | 2017-12-05 11:06 | PROVIDER PROGRESS NOTE ---
Assessment/Plan - Problem List (1) C. difficile diarrhea Assessment/Plan: Pt still has alot of stool voluime. She has been started on po Flagyl. Not ready for Dch since she may develop dehydration, then poss DKA. (2) Microcytic hypochromic anemia Assessment/Plan: No evidence of GI blood loss anemia. After the 2 U PRBC transfusions, H/H are stable. Monitor CBC daily. (3) Diabetes type 1, uncontrolled Assessment/Plan: Continue carb-controlled diet, fingerstick chescks, and Insulin (4) Psychiatric disorder Assessment/Plan: Stable mood. Continue meds. (5) PVD (peripheral vascular disease) Assessment/Plan: No claudication or new gangrene. Continue ASA, Pletal. (6) Methamphetamine abuse Assessment/Plan: She is now awake and over the somnolence from withdrawal (7) DKA (diabetic ketoacidoses) Qualifiers: Diabetes mellitus type: type 1 Assessment/Plan: Resolved - Current Meds Current Meds: Current Medications Generic Name Dose Route Start Last Admin Trade Name Freq PRN Reason Stop Dose Admin Acetaminophen 650 mg 12/01/17 20:18 12/04/17 14:44 Tylenol PO 650 mg Q4HR PRN Administration Pain 1 to 4 Amitriptyline HCl 25 mg 12/02/17 21:00 12/04/17 20:37 Elavil PO 25 mg HS SYLVIA Administration Aspirin 81 mg 12/03/17 09:00 12/05/17 10:20 Ecotrin PO 81 mg DAILY SYLVIA Administration Cilostazol 100 mg 12/02/17 21:00 12/05/17 10:20 Pletal PO 100 mg BID SYLVIA Administration Clonidine HCl 0.1 mg 12/02/17 09:00 12/05/17 10:20 Catapres PO 0.1 mg BID SYLVIA Administration Diltiazem HCl 120 mg 12/02/17 09:00 12/05/17 10:20 Cardizem Cd PO 120 mg DAILY SYLVIA Administration Duloxetine HCl 60 mg 12/03/17 09:00 12/05/17 10:20 Cymbalta PO 60 mg DAILY SYLVIA Administration Enoxaparin Sodium 40 mg 12/02/17 09:00 12/05/17 10:28 Lovenox SUBQ Not Given DAILY SYLVIA Famotidine 20 mg 12/04/17 09:00 12/05/17 10:20 Pepcid PO 20 mg BID SYLVIA Administration Gabapentin 900 mg 12/02/17 22:00 12/05/17 06:22 Neurontin PO 900 mg TID SYLVIA Administration Hydrocortisone 1 applic 12/04/17 15:39 12/04/17 23:15 Hydrocortisone TOP 1 applic TID PRN Administration Hemorrhoids Insulin Aspart 3 - 11 unit 12/02/17 17:00 12/05/17 10:19 Novolog SUBQ Not Given 0800,1200,1700,2100 [facility] Protocol Insulin Aspart 7 unit 12/03/17 17:00 12/05/17 10:19 Novolog SUBQ 7 unit TIDWM SYLVIA Administration Insulin Glargine 40 unit 12/02/17 05:39 12/05/17 10:19 Lantus Solostar SUBQ 40 unit BID SYLVIA Administration Ketorolac Tromethamine 30 mg 12/01/17 21:11 12/05/17 10:21 Toradol Inj (30mg) IVP 12/06/17 21:10 30 mg Q6HR PRN Administration PAIN Metoprolol Succinate 25 mg 12/02/17 09:00 12/05/17 10:20 Toprol Xl PO 25 mg BID SYLVIA Administration Metronidazole 500 mg 12/04/17 20:00 12/05/17 06:22 Flagyl PO 500 mg Q8H SYLVIA Administration Nicotine 1 patch 12/02/17 09:00 12/05/17 10:21 Nicoderm TOP 1 patch DAILY SYLVIA Administration Nystatin 15 applic 12/01/17 21:00 12/05/17 10:21 Mycostatin Cream TOP Not Given BID [facility] Ondansetron HCl 4 mg 12/01/17 20:18 12/05/17 10:22 Zofran Inj IVP 4 mg Q6HR PRN Administration Nausea / Vomiting Polyethylene Glycol 17 gm 12/03/17 09:00 12/05/17 08:14 Miralax PO Not Given DAILY [facility] Prochlorperazine Edisylate 10 mg 12/01/17 20:18 12/05/17 05:25 Compazine Inj IVP 10 mg Q6HR PRN Administration Nausea / Vomiting Sodium Chloride 10 ml 12/02/17 01:00 12/05/17 10:21 Normal Saline Flush 0.9% IVP 10 ml 0100,0900,1700 SYLVIA Administration Sodium Chloride 10 ml 10/10/18 20:18 12/05/17 05:25 Normal Saline Flush 0.9% IVP 10 ml PRN PRN Administration NEEDED PER PROVIDER ORDERS [place]/Glycerin 1 each 12/04/17 16:49 12/04/17 23:15 Tucks TOP 1 each PRN PRN Administration ITCHING - Lab Result Fish Bone Diagrams: 12/05/17 05:15 12/05/17 05:15 - Additional Planning My Orders: My Active Orders 12/04/17 15:39 Hydrocortisone 1% Cream [Hydrocortisone] 1 applic TOP TID PRN 12/04/17 16:49 Witch Shantel/Glycerin [Tucks] 1 each TOP PRN PRN Subjective - Subjective Patient Reports: Diarrhea, Other (Explosive BMs, leaked on her way to the bathroom) Objective Vital Signs: Vital Signs - 24 hr 12/04/17 12/04/17 12/04/17 11:39 12:03 12:18 Temperature 36.8 C 37.0 C 36.8 C Heart Rate 100 99 99 Heart Rate [ Monitoring electrodes] Heart Rate [ Radial] Respiratory 24 23 20 Rate Blood Pressure 135/91 H 142/96 H 132/86 H Blood Pressure [Right Brachial artery] O2 Saturation 12/04/17 12/04/17 12/05/17 14:46 16:32 06:00 Temperature 36.8 C 36.2 C L 36.5 C Heart Rate 95 Heart Rate [ 94 95 Monitoring electrodes] Heart Rate [ Radial] Respiratory 20 20 20 Rate Blood Pressure 122/83 H Blood Pressure 135/95 H 129/83 H [Right Brachial artery] O2 Saturation 96 97 12/05/17 07:40 Temperature 36.3 C L Heart Rate Heart Rate [ Monitoring electrodes] Heart Rate [ 82 Radial] Respiratory 20 Rate Blood Pressure Blood Pressure [Right Brachial artery] O2 Saturation 96 Oxygen O2 Source [Without Activity] Room air O2 Source Room air I&O (Last 24 Hrs): Intake and Output Totals x24h 12/03/17 12/04/17 12/05/17 23:59 23:59 23:59 Intake Total 8179.167 6721.332 3969 Output Total 4870 Balance 3309.167 3384.367 8614 General: Alert, Oriented x3 Neck: Supple Neuro: Non Focal Cardiovascular: Regular rate Respiratory: No respiratory distress Extremities: Other (S/P amputated toes) - Results Results: Laboratory Results WBC 4.7 x10^3/uL (4.8-10.8) L 12/05/17 05:15 RBC 3.70 10^6/uL (4.20-5.40) L 12/05/17 05:15 Hgb 9.4 g/dL (12.0-16.0) L 12/05/17 05:15 Hct 28.4 % (37.0-47.0) L 12/05/17 05:15 MCV 76.9 fL (81.0-99.0) L 12/05/17 05:15 MCH 25.3 pg (27.0-31.0) L 12/05/17 05:15 MCHC 32.9 g/dL (32.0-36.0) 12/05/17 05:15 RDW 16.7 % (12.0-15.0) H 12/05/17 05:15 Plt Count 347 10^3/uL (130-450) 12/05/17 05:15 MPV 6.9 fL (7.9-10.8) L 12/05/17 05:15 Neut # (Auto) 2.4 10^3/uL (1.5-6.6) 12/05/17 05:15 Lymph # (Auto) 2.0 10^3/uL (1.5-3.5) 12/05/17 05:15 [place] # (Auto) 0.3 10^3/uL (0.0-1.0) 12/05/17 05:15 Eos # (Auto) 0.1 10^3/uL (0.0-0.7) 12/05/17 05:15 Baso # (Auto) 0.0 10^3/uL (0.0-0.1) 12/05/17 05:15 Absolute Nucleated RBC 0.00 x10^3/uL 12/05/17 05:15 Nucleated RBC % 0.0 /100WBC 12/05/17 05:15 VBG pH 7.359 (7.31-7.41) 12/02/17 05:55 VBG pCO2 22.6 mmHg (41-51) L 12/01/17 18:50 VBG pO2 92.8 mmHg (25-47) H 12/01/17 18:50 VBG HCO3 6.7 mmol/L (23-28) L 12/01/17 18:50 VBG Total CO2 7.4 mmol/L (24-29) L 12/01/17 18:50 VBG O2 Saturation 93.8 % (60-80) H 12/01/17 18:50 VBG Base Excess -21.5 mmol/L (-2 - +2) L 12/01/17 18:50 Ionized Calcium 1.08 mmol/L (1.15-1.33) L 12/02/17 05:55 Sodium 138 mmol/L (135-145) 12/05/17 05:15 Potassium 3.8 mmol/L (3.5-5.0) 12/05/17 05:15 Chloride 106 mmol/L (101-111) 12/05/17 05:15 Carbon Dioxide 27 mmol/L (21-32) 12/05/17 05:15 Anion Gap 5.0 (6-13) L 12/05/17 05:15 BUN 22 mg/dL (6-20) H 12/05/17 05:15 Creatinine 0.3 mg/dL (0.4-1.0) L 12/05/17 05:15 Estimated GFR (MDRD) 252 (>89) 12/05/17 05:15 Glucose 68 mg/dL (70-100) L 12/05/17 05:15 POC Whole Bld Glucose 149 mg/dL (70 - 100) H 12/05/17 07:37 Glycated Hemoglobin 11.3 % (4.6-6.2) H 12/02/17 05:00 Estim Average Glucose 278 (70-100) H 12/02/17 05:00 Lactic Acid 1.7 mmol/L (0.5-2.2) 12/01/17 18:50 Calcium 7.7 mg/dL (8.5-10.3) L 12/05/17 05:15 Phosphorus 2.9 mg/dL (2.5-4.6) 12/04/17 05:40 Magnesium 1.7 mg/dL (1.7-2.8) 12/04/17 05:40 Iron 15 ug/dL (28-170) L 12/04/17 12:00 TIBC 323 ug/dL (250-450) 12/04/17 12:00 % Saturation 5 % (20-50) L 12/04/17 12:00 Transferrin 231 mg/dL (192-382) 12/04/17 12:00 Total Bilirubin 0.3 mg/dL (0.2-1.0) 12/03/17 04:07 AST 28 IU/L (10-42) 12/03/17 04:07 ALT 44 IU/L (10-60) 12/03/17 04:07 Alkaline Phosphatase 147 IU/L (42-121) H 12/03/17 04:07 Troponin I < 0.04 ng/mL (<0.49) 12/02/17 08:22 Total Protein 5.3 g/dL (6.7-8.2) L 12/03/17 04:07 Albumin 2.8 g/dL (3.2-5.5) L 12/03/17 04:07 Globulin 2.5 g/dL (2.1-4.2) 12/03/17 04:07 Albumin/Globulin Ratio 1.1 (1.0-2.2) 12/03/17 04:07 Lipase 26 U/L (22-51) 12/01/17 18:50 Serum HCG, Qual NEGATIVE 12/01/17 18:50 Urine Color LIGHT YELLOW 12/01/17 21:45 Urine Clarity CLEAR (CLEAR) 12/01/17 21:45 Urine pH 5.5 PH (5.0-7.5) 12/01/17 21:45 Ur Specific [place] 1.025 (1.002-1.030) 12/01/17 21:45 Urine Protein NEGATIVE mg/dL (NEGATIVE) 12/01/17 21:45 Urine Glucose (UA) >=1000 mg/dL (NEGATIVE) H 12/01/17 21:45 Urine Ketones >=80 mg/dL (NEGATIVE) H 12/01/17 21:45 Urine Occult Blood TRACE-INTA (NEGATIVE) 12/01/17 21:45 Urine Nitrite NEGATIVE (NEGATIVE) 12/01/17 21:45 Urine Bilirubin NEGATIVE (NEGATIVE) 12/01/17 21:45 Urine Urobilinogen 0.2 (NORMAL) E.U./dL (NORMAL) 12/01/17 21:45 Ur Leukocyte Esterase NEGATIVE (NEGATIVE) 12/01/17 21:45 Ur Microscopic Review NOT INDICATED 12/01/17 21:45 Urine Culture Comments NOT INDICATED 12/01/17 21:45 Urine HCG, Qual NEGATIVE 12/01/17 21:45 Salicylates < 6.0 mg/dL 12/01/17 18:50 Urine Opiates Screen POSITIVE (NEGATIVE) H 12/01/17 21:45 Ur Oxycodone Screen NEGATIVE (NEGATIVE) 12/01/17 21:45 Urine Methadone Screen NEGATIVE (NEGATIVE) 12/01/17 21:45 Ur Propoxyphene Screen NEGATIVE (NEGATIVE) 12/01/17 21:45 Acetaminophen < 10 ug/mL (10-30) L 12/01/17 18:50 Ur Barbiturates Screen NEGATIVE (NEGATIVE) 12/01/17 21:45 Ur Tricyclics Screen NEGATIVE (NEGATIVE) 12/01/17 21:45 Ur Phencyclidine Scrn NEGATIVE (NEGATIVE) 12/01/17 21:45 Ur Amphetamine Screen NEGATIVE (NEGATIVE) 12/01/17 21:45 U Methamphetamines Scrn POSITIVE (NEGATIVE) H 12/01/17 21:45 U Benzodiazepines Scrn NEGATIVE (NEGATIVE) 12/01/17 21:45 Urine Cocaine Screen NEGATIVE (NEGATIVE) 12/01/17 21:45 U Cannabinoids Screen NEGATIVE (NEGATIVE) 12/01/17 21:45 Ethyl Alcohol < 5.0 mg/dL 12/01/17 18:50 Serum Ketones SMALL (NEGATIVE) H 12/03/17 18:40 Blood Type O POSITIVE 12/04/17 06:26 Antibody Screen NEGATIVE 12/04/17 06:26 Crossmatch IS Only See Detail 12/04/17 06:26 - Procedures Procedures: Procedures DETACHMENT AT LEFT 4TH TOE, LOW, OPEN APPROACH (06/30/17) DETACHMENT AT RIGHT 1ST TOE, LOW, OPEN APPROACH (03/14/17) DETACHMENT AT RIGHT 2ND TOE, HIGH, OPEN APPROACH (06/30/17) DETACHMENT AT RIGHT 4TH TOE, HIGH, OPEN APPROACH (06/30/17) INSERT INFUSION DEV IN R INT JUGULAR VEIN, PERC (04/21/16) INSERTION OF INFUSION DEV INTO R SUBCLAV VEIN, PERC APPROACH (03/14/17) INSERTION OF INFUSION DEV INTO SUP VENA CAVA, PERC APPROACH (10/26/17) INSERTION OF INFUSION DEVICE INTO LOWER VEIN, PERC APPROACH (08/13/17) INSERTION OF INFUSION DEVICE INTO R ATRIUM, PERC APPROACH (09/27/17) TRANSFUSE NONAUT RED BLOOD CELLS IN PERIPH VEIN, PERC (01/22/17) ULTRASONOGRAPHY OF RIGHT JUGULAR VEINS, GUIDANCE (04/21/16)
[2017-12-05] MEDS ORDERED: METOCLOPRAMIDE 10 MG/2 ML VIAL IVP PRN (17:19)
[2017-12-05] MEDS: AMITRIPTYLINE 25 MG TABLET PO SCH (21:22)
[2017-12-06] MEDS: SODIUM CHLORIDE FLUSH 0.9% 10 ML SYRINGE IVP SCH ×4 (01:20→21:06)
[2017-12-06] MEDS: KETOROLAC 30 MG/ML VIAL IVP PRN ×2 (01:20→09:04)
[2017-12-06] MEDS: SODIUM CHLORIDE FLUSH 0.9% 10 ML SYRINGE IVP PRN ×4 (01:20→19:24)
[2017-12-06] MEDS: metroNIDAZOLE 250 MG TABLET PO SCH ×3 (05:49→21:05)
[2017-12-06] MEDS: GABAPENTIN 300 MG CAPSULE PO SCH ×3 (05:50→21:05)
[2017-12-06] MEDS: ACETAMINOPHEN 325 MG TABLET PO PRN ×3 (06:08→18:25)
[2017-12-06 06:14] LABS: BASOPHILS % (AUTO) 0.9 %; EOSINOPHILS # (AUTO) 0.1 10^3/uL (0.0-0.7); EOSINOPHILS % (AUTO) 1.6 %; HGB - HEMOGLOBIN 9.9 g/dL (12.0-16.0); LYMPHOCYTES % (AUTO) 37.3 %; MEAN CORPUSCULAR HGB CONC 32.2 g/dL (32.0-36.0); MEAN CORPUSCULAR VOLUME 77.6 fL (81.0-99.0); MEAN PLATELET VOLUME 6.9 fL (7.9-10.8); MONOCYTES # (AUTO) 0.3 10^3/uL (0.0-1.0); MONOCYTES % (AUTO) 6.1 %; NEUTROPHILS # (AUTO) 2.9 10^3/uL (1.5-6.6); NEUTROPHILS % (AUTO) 54.1 %; PLT - PLATELET COUNT 358 10^3/uL (130-450); RED BLOOD COUNT 3.94 10^6/uL (4.20-5.40); RED CELL DISTRIBUTION WIDTH 17.1 % (12.0-15.0); WHITE BLOOD COUNT 5.4 x10^3/uL (4.8-10.8)
[2017-12-06 06:34] LABS: ALBUMIN 2.6 g/dL (3.2-5.5); BILIRUBIN,TOTAL 0.3 mg/dL (0.2-1.0); CALCIUM 8.4 mg/dL (8.5-10.3); CREATININE 0.4 mg/dL (0.4-1.0); TOTAL PROTEIN 5.1 g/dL (6.7-8.2)
[2017-12-06] MEDS: INSULIN ASPART 300 UNIT/3 ML PEN SUBQ SCH ×7 (07:46→21:10)
[2017-12-06] MEDS: CILOSTAZOL 100 MG TABLET PO SCH ×2 (08:50→21:05)
[2017-12-06] MEDS: METOPROLOL SUCCINATE 25 MG TABLET PO SCH ×2 (08:50→21:05)
[2017-12-06] MEDS: DULoxetine 20 MG CAPSULE PO SCH (08:50)
[2017-12-06] MEDS: FAMOTIDINE 20 MG TABLET PO SCH ×2 (08:50→21:05)
[2017-12-06] MEDS: ASPIRIN EC 81 MG TABLET PO SCH (08:50)
[2017-12-06] MEDS: ENOXAPARIN 40 MG/0.4 ML SYRINGE SUBQ SCH (08:51)
[2017-12-06] MEDS: NICOTINE 21 MG PATCH TOP SCH (08:51)
[2017-12-06] MEDS: POLYETHYLENE GLYCOL 3350 17 GM PACKET PO SCH (08:52)
[2017-12-06] MEDS: INSULIN GLARGINE 300 UNIT/3 ML PEN SUBQ SCH ×2 (08:55→21:10)
[2017-12-06] MEDS: NYSTATIN CREAM 15 GM TUBE TOP SCH ×2 (08:56→21:11)
[2017-12-06] MEDS: diltiaZEM CD 120 MG CAPSULE PO SCH (09:04)
[2017-12-06] MEDS: ONDANSETRON 4 MG/2 ML VIAL IVP PRN ×2 (10:52→18:25)
[2017-12-06] MEDS ORDERED: LOPERAMIDE 2 MG CAPSULE PO PRN (12:42)
[2017-12-06] MEDS: PROCHLORPERAZINE 10 MG/2 ML VIAL IVP PRN ×2 (12:43→21:05)
--- NOTE | 2017-12-06 12:46 | PROVIDER PROGRESS NOTE ---
Assessment/Plan - Problem List (1) C. difficile diarrhea Assessment/Plan: Diarrhea and a large volume of loose stools persist. Will start Imodium. Perhaps the new po Flagyl was giving her N/V. Possible DCh tomorrow. (2) Diabetes type 1, uncontrolled Assessment/Plan: The pt was very hypoglycemic this am, and was symptomatic this am. The glu may also have been low due to vomiting up her food. Insulin doses will be decreased. Continue carb-controlled diet, fingerstick checks and scheduled plus ss Insulin. Continue Elavil and Neurontin. Possible DCh tomorrow. (3) Psychiatric disorder Assessment/Plan: Pt's mood today is very good, perhaps after the post-Meth somnolence has resolved and with her Elavil and other meds kicking in. She requests NSAIDs for hip pain and apologized for how belligerent she gets when she usually is first admitted recurrently. She stated that she wanted to get inpatient Psych treatment, but did not tell me the details of why she was released early. (4) PVD (peripheral vascular disease) Assessment/Plan: No symptoms except a red toe tip which appears clean and is dry. Continue ASA, Pletal and statin, also Elavil and Neurontin for pain/neuropathy. (5) Microcytic hypochromic anemia Assessment/Plan: H/H are low but stable after blood transfusion 2 days ago. Stool was heme neg, even with reported Hx of hemorrhoids. Will continue Iron supplement. (6) Methamphetamine abuse Assessment/Plan: Resolved altered mental status. (7) DKA (diabetic ketoacidoses) Qualifiers: Diabetes mellitus type: type 1 Assessment/Plan: Resolved. - Current Meds Current Meds: Current Medications Generic Name Dose Route Start Last Admin Trade Name Freq PRN Reason Stop Dose Admin Acetaminophen 650 mg 12/01/17 20:18 12/06/17 06:08 Tylenol PO 650 mg Q4HR PRN Administration Pain 1 to 4 Amitriptyline HCl 25 mg 12/02/17 21:00 12/05/17 21:22 Elavil PO 25 mg HS SYLVIA Administration Aspirin 81 mg 12/03/17 09:00 12/06/17 08:50 Ecotrin PO 81 mg DAILY SYLVIA Administration Cilostazol 100 mg 12/02/17 21:00 12/06/17 08:50 Pletal PO 100 mg BID SYLVIA Administration Clonidine HCl 0.1 mg 12/02/17 09:00 12/05/17 20:54 Catapres PO 0.1 mg BID SYLVIA Administration Diltiazem HCl 120 mg 12/02/17 09:00 12/06/17 09:04 Cardizem Cd PO 120 mg DAILY SYLVIA Administration Duloxetine HCl 60 mg 12/03/17 09:00 12/06/17 08:50 Cymbalta PO 60 mg DAILY SYLVIA Administration Enoxaparin Sodium 40 mg 12/02/17 09:00 12/06/17 08:51 Lovenox SUBQ Not Given DAILY SYLVIA Famotidine 20 mg 12/04/17 09:00 12/06/17 08:50 Pepcid PO 20 mg BID SYLVIA Administration Gabapentin 900 mg 12/02/17 22:00 12/06/17 05:50 Neurontin PO 900 mg TID SYLVIA Administration Hydrocortisone 1 applic 12/04/17 15:39 12/04/17 23:15 Hydrocortisone TOP 1 applic TID PRN Administration Hemorrhoids Insulin Aspart 3 - 11 unit 12/02/17 17:00 12/06/17 11:21 Novolog SUBQ Not Given 0800,1200,1700,2100 [facility] Protocol Insulin Aspart 7 unit 12/03/17 17:00 12/06/17 08:53 Novolog SUBQ Not Given TIDWM [facility] Insulin Glargine 30 unit 12/06/17 09:00 12/06/17 08:55 Lantus Solostar SUBQ 30 unit BID [facility] Administration Ketorolac Tromethamine 30 mg 12/01/17 21:11 12/06/17 09:04 Toradol Inj (30mg) IVP 12/06/17 21:10 30 mg Q6HR PRN Administration PAIN Metoclopramide HCl 5 mg 12/05/17 17:19 12/05/17 19:00 Reglan Inj IVP 5 mg Q6HR PRN Administration Nausea / Vomiting Metoprolol Succinate 25 mg 12/02/17 09:00 12/06/17 08:50 Toprol Xl PO 25 mg BID SYLVIA Administration Metronidazole 500 mg 12/04/17 20:00 12/06/17 05:49 Flagyl PO 500 mg Q8H SYLVIA Administration Nicotine 1 patch 12/02/17 09:00 12/06/17 08:51 Nicoderm TOP 1 patch DAILY SYLVIA Administration Nystatin 15 applic 12/01/17 21:00 12/06/17 08:56 Mycostatin Cream TOP Not Given BID SYLVIA Ondansetron HCl 4 mg 12/01/17 20:18 12/06/17 10:52 Zofran Inj IVP 4 mg Q6HR PRN Administration Nausea / Vomiting Polyethylene Glycol 17 gm 12/03/17 09:00 12/06/17 08:52 Miralax PO Not Given DAILY SYLVIA Prochlorperazine Edisylate 10 mg 12/01/17 20:18 12/05/17 19:41 Compazine Inj IVP 10 mg Q6HR PRN Administration Nausea / Vomiting Sodium Chloride 10 ml 12/02/17 01:00 12/06/17 08:52 Normal Saline Flush 0.9% IVP 10 ml 0100,0900,1700 SYLVIA Administration Sodium Chloride 10 ml 12/01/17 20:18 12/06/17 05:51 Normal Saline Flush 0.9% IVP 10 ml PRN PRN Administration NEEDED PER PROVIDER ORDERS Witch Shantel/Glycerin 1 each 12/04/17 16:49 12/04/17 23:15 Tucks TOP 1 each PRN PRN Administration ITCHING - Lab Result Fish Bone Diagrams: 12/06/17 06:12 12/06/17 06:12 - Additional Planning My Orders: My Active Orders 12/05/17 17:19 Metoclopramide Inj [Reglan Inj] 5 mg IVP Q6HR PRN 12/06/17 12:42 Loperamide [Imodium] 2 mg PO QID PRN 12/06/17 14:00 Ibuprofen [Motrin] 600 mg PO Q8HR 12/07/17 05:00 CMP [COMPREHENSIVE METABOLIC PANEL] [CHEM] DAILYLAB Subjective - Subjective Patient Reports: Other (Vomited yesterday, belches after po Flagyl, still has "explosive bowel movements", felt shaky this am and asked for glu fingerstick check and it was 38) Objective Vital Signs: Vital Signs - 24 hr 12/05/17 12/05/17 12/06/17 13:16 16:03 01:29 Temperature 36.4 C L 36.6 C Heart Rate [ 97 103 H Brachial] Heart Rate [ 102 H Monitoring electrodes] Respiratory 20 16 Rate Blood Pressure 159/98 H 143/93 H 142/93 H [Right Brachial artery] O2 Saturation 95 96 12/06/17 07:37 Temperature 36.7 C Heart Rate [ 93 Brachial] Heart Rate [ Monitoring electrodes] Respiratory 18 Rate Blood Pressure 116/71 [Right Brachial artery] O2 Saturation 96 Oxygen O2 Source [Without Activity] Room air O2 Source Room air I&O (Last 24 Hrs): Intake and Output Totals x24h 12/04/17 12/05/17 12/06/17 23:59 23:59 23:59 Intake Total 9478.187 7504 1140 Balance 2990.708 1767 1140 General: Alert, Oriented x3 HEENT: Mucous membr. moist/pink Neck: Supple, No JVD Neuro: Non Focal Cardiovascular: Regular rate Respiratory: No respiratory distress Abdomen: Normal bowel sounds, Soft, No tenderness Extremities: No edema, Other (Toes amputated. small dry red wound on tip of R 3rd toe) - Results Results: Laboratory Results WBC 5.4 x10^3/uL (4.8-10.8) 12/06/17 06:12 RBC 3.94 10^6/uL (4.20-5.40) L 12/06/17 06:12 Hgb 9.9 g/dL (12.0-16.0) L 12/06/17 06:12 Hct 30.6 % (37.0-47.0) L 12/06/17 06:12 MCV 77.6 fL (81.0-99.0) L 12/06/17 06:12 MCH 25.0 pg (27.0-31.0) L 12/06/17 06:12 MCHC 32.2 g/dL (32.0-36.0) 12/06/17 06:12 RDW 17.1 % (12.0-15.0) H 12/06/17 06:12 Plt Count 358 10^3/uL (130-450) 12/06/17 06:12 MPV 6.9 fL (7.9-10.8) L 12/06/17 06:12 Neut # (Auto) 2.9 10^3/uL (1.5-6.6) 12/06/17 06:12 Lymph # (Auto) 2.0 10^3/uL (1.5-3.5) 12/06/17 06:12 [place] # (Auto) 0.3 10^3/uL (0.0-1.0) 12/06/17 06:12 Eos # (Auto) 0.1 10^3/uL (0.0-0.7) 12/06/17 06:12 Baso # (Auto) 0.0 10^3/uL (0.0-0.1) 12/06/17 06:12 Absolute Nucleated RBC 0.01 x10^3/uL 12/06/17 06:12 Nucleated RBC % 0.1 /100WBC 12/06/17 06:12 VBG pH 7.359 (7.31-7.41) 12/02/17 05:55 VBG pCO2 22.6 mmHg (41-51) L 12/01/17 18:50 VBG pO2 92.8 mmHg (25-47) H 12/01/17 18:50 VBG HCO3 6.7 mmol/L (23-28) L 12/01/17 18:50 VBG Total CO2 7.4 mmol/L (24-29) L 12/01/17 18:50 VBG O2 Saturation 93.8 % (60-80) H 12/01/17 18:50 VBG Base Excess -21.5 mmol/L (-2 - +2) L 12/01/17 18:50 Ionized Calcium 1.08 mmol/L (1.15-1.33) L 12/02/17 05:55 Sodium 140 mmol/L (135-145) 12/06/17 06:12 Potassium 3.9 mmol/L (3.5-5.0) 12/06/17 06:12 Chloride 102 mmol/L (101-111) 12/06/17 06:12 Carbon Dioxide 32 mmol/L (21-32) 12/06/17 06:12 Anion Gap 6.0 (6-13) 12/06/17 06:12 BUN 20 mg/dL (6-20) 12/06/17 06:12 Creatinine 0.4 mg/dL (0.4-1.0) 12/06/17 06:12 Estimated GFR (MDRD) 181 (>89) 12/06/17 06:12 Glucose 56 mg/dL (70-100) L* 12/06/17 06:12 POC Whole Bld Glucose 136 mg/dL (70 - 100) H 12/06/17 11:20 Glycated Hemoglobin 11.3 % (4.6-6.2) H 12/02/17 05:00 Estim Average Glucose 278 (70-100) H 12/02/17 05:00 Lactic Acid 1.7 mmol/L (0.5-2.2) 12/01/17 18:50 Calcium 8.4 mg/dL (8.5-10.3) L 12/06/17 06:12 Phosphorus 2.9 mg/dL (2.5-4.6) 12/04/17 05:40 Magnesium 1.7 mg/dL (1.7-2.8) 12/04/17 05:40 Iron 15 ug/dL (28-170) L 12/04/17 12:00 TIBC 323 ug/dL (250-450) 12/04/17 12:00 % Saturation 5 % (20-50) L 12/04/17 12:00 Transferrin 231 mg/dL (192-382) 12/04/17 12:00 Total Bilirubin 0.3 mg/dL (0.2-1.0) 12/06/17 06:12 AST 23 IU/L (10-42) 12/06/17 06:12 ALT 27 IU/L (10-60) 12/06/17 06:12 Alkaline Phosphatase 102 IU/L (42-121) 12/06/17 06:12 Troponin I < 0.04 ng/mL (<0.49) 12/02/17 08:22 Total Protein 5.1 g/dL (6.7-8.2) L 12/06/17 06:12 Albumin 2.6 g/dL (3.2-5.5) L 12/06/17 06:12 Globulin 2.5 g/dL (2.1-4.2) 12/06/17 06:12 Albumin/Globulin Ratio 1.0 (1.0-2.2) 12/06/17 06:12 Lipase 26 U/L (22-51) 12/01/17 18:50 Serum HCG, Qual NEGATIVE 12/01/17 18:50 Urine Color LIGHT YELLOW 12/01/17 21:45 Urine Clarity CLEAR (CLEAR) 12/01/17 21:45 Urine pH 5.5 PH (5.0-7.5) 12/01/17 21:45 Ur Specific [place] 1.025 (1.002-1.030) 12/01/17 21:45 Urine Protein NEGATIVE mg/dL (NEGATIVE) 12/01/17 21:45 Urine Glucose (UA) >=1000 mg/dL (NEGATIVE) H 12/01/17 21:45 Urine Ketones >=80 mg/dL (NEGATIVE) H 12/01/17 21:45 Urine Occult Blood TRACE-INTA (NEGATIVE) 12/01/17 21:45 Urine Nitrite NEGATIVE (NEGATIVE) 12/01/17 21:45 Urine Bilirubin NEGATIVE (NEGATIVE) 12/01/17 21:45 Urine Urobilinogen 0.2 (NORMAL) E.U./dL (NORMAL) 12/01/17 21:45 Ur Leukocyte Esterase NEGATIVE (NEGATIVE) 12/01/17 21:45 Ur Microscopic Review NOT INDICATED 12/01/17 21:45 Urine Culture Comments NOT INDICATED 12/01/17 21:45 Urine HCG, Qual NEGATIVE 12/01/17 21:45 Salicylates < 6.0 mg/dL 12/01/17 18:50 Urine Opiates Screen POSITIVE (NEGATIVE) H 12/01/17 21:45 Ur Oxycodone Screen NEGATIVE (NEGATIVE) 12/01/17 21:45 Urine Methadone Screen NEGATIVE (NEGATIVE) 12/01/17 21:45 Ur Propoxyphene Screen NEGATIVE (NEGATIVE) 12/01/17 21:45 Acetaminophen < 10 ug/mL (10-30) L 12/01/17 18:50 Ur Barbiturates Screen NEGATIVE (NEGATIVE) 12/01/17 21:45 Ur Tricyclics Screen NEGATIVE (NEGATIVE) 12/01/17 21:45 Ur Phencyclidine Scrn NEGATIVE (NEGATIVE) 12/01/17 21:45 Ur Amphetamine Screen NEGATIVE (NEGATIVE) 12/01/17 21:45 U Methamphetamines Scrn POSITIVE (NEGATIVE) H 12/01/17 21:45 U Benzodiazepines Scrn NEGATIVE (NEGATIVE) 12/01/17 21:45 Urine Cocaine Screen NEGATIVE (NEGATIVE) 12/01/17 21:45 U Cannabinoids Screen NEGATIVE (NEGATIVE) 12/01/17 21:45 Ethyl Alcohol < 5.0 mg/dL 12/01/17 18:50 Serum Ketones SMALL (NEGATIVE) H 12/03/17 18:40 Blood Type O POSITIVE 12/04/17 06:26 Antibody Screen NEGATIVE 12/04/17 06:26 Crossmatch IS Only See Detail 12/04/17 06:26 - Procedures Procedures: Procedures DETACHMENT AT LEFT 4TH TOE, LOW, OPEN APPROACH (06/30/17) DETACHMENT AT RIGHT 1ST TOE, LOW, OPEN APPROACH (03/14/17) DETACHMENT AT RIGHT 2ND TOE, HIGH, OPEN APPROACH (06/30/17) DETACHMENT AT RIGHT 4TH TOE, HIGH, OPEN APPROACH (06/30/17) INSERT INFUSION DEV IN R INT JUGULAR VEIN, PERC (04/21/16) INSERTION OF INFUSION DEV INTO R SUBCLAV VEIN, PERC APPROACH (03/14/17) INSERTION OF INFUSION DEV INTO SUP VENA CAVA, PERC APPROACH (10/26/17) INSERTION OF INFUSION DEVICE INTO LOWER VEIN, PERC APPROACH (08/13/17) INSERTION OF INFUSION DEVICE INTO R ATRIUM, PERC APPROACH (09/27/17) TRANSFUSE NONAUT RED BLOOD CELLS IN PERIPH VEIN, PERC (01/22/17) ULTRASONOGRAPHY OF RIGHT JUGULAR VEINS, GUIDANCE (04/21/16)
[2017-12-06] MEDS: IBUPROFEN 600 MG TABLET PO SCH ×2 (14:08→16:08)
[2017-12-06] MEDS: KETOROLAC 15 MG/ML VIAL IVP PRN (19:24)
[2017-12-06] MEDS: AMITRIPTYLINE 25 MG TABLET PO SCH (21:05)
[2017-12-06] MEDS: cloNIDine 0.1 MG TABLET PO SCH (21:05)
[2017-12-07] MEDS: ACETAMINOPHEN 325 MG TABLET PO PRN (01:20)
[2017-12-07] MEDS: SODIUM CHLORIDE FLUSH 0.9% 10 ML SYRINGE IVP SCH ×2 (04:37→08:46)
[2017-12-07] MEDS: SODIUM CHLORIDE FLUSH 0.9% 10 ML SYRINGE IVP PRN ×2 (04:38→04:39)
[2017-12-07] MEDS: KETOROLAC 15 MG/ML VIAL IVP PRN ×2 (04:38→11:07)
[2017-12-07] MEDS: metroNIDAZOLE 250 MG TABLET PO SCH (04:47)
[2017-12-07 05:23] LABS: ALBUMIN 2.5 g/dL (3.2-5.5); ALKALINE PHOSPHATASE 94 IU/L (42-121); ALT ALANINE AMINOTRANSFERASE 26 IU/L (10-60); AST ASPARTATE AMINOTRANSFERASE 32 IU/L (10-42); BILIRUBIN,TOTAL < 0.2 mg/dL (0.2-1.0); BUN - BLOOD UREA NITROGEN 22 mg/dL (6-20); CALCIUM 8.5 mg/dL (8.5-10.3); CARBON DIOXIDE - CO2 35 mmol/L (21-32); CHLORIDE 98 mmol/L (101-111); CREATININE 0.5 mg/dL (0.4-1.0); GFR - MDRD 140 (>89); GLUCOSE 124 mg/dL (70-100); SODIUM 140 mmol/L (135-145); TOTAL PROTEIN 5.1 g/dL (6.7-8.2)
[2017-12-07] MEDS: GABAPENTIN 300 MG CAPSULE PO SCH (05:32)
[2017-12-07 07:33] VITALS: BP 119/75
[2017-12-07] MEDS: ASPIRIN EC 81 MG TABLET PO SCH (08:46)
[2017-12-07] MEDS: CILOSTAZOL 100 MG TABLET PO SCH (08:46)
[2017-12-07] MEDS: DULoxetine 20 MG CAPSULE PO SCH (08:46)
[2017-12-07] MEDS: POLYETHYLENE GLYCOL 3350 17 GM PACKET PO SCH (08:46)
[2017-12-07] MEDS: cloNIDine 0.1 MG TABLET PO SCH (08:46)
[2017-12-07] MEDS: diltiaZEM CD 120 MG CAPSULE PO SCH (08:46)
[2017-12-07] MEDS: FAMOTIDINE 20 MG TABLET PO SCH (08:46)
[2017-12-07] MEDS: METOPROLOL SUCCINATE 25 MG TABLET PO SCH (08:46)
[2017-12-07] MEDS: IBUPROFEN 600 MG TABLET PO SCH (08:46)
[2017-12-07] MEDS: NYSTATIN CREAM 15 GM TUBE TOP SCH (08:46)
[2017-12-07] MEDS: NICOTINE 21 MG PATCH TOP SCH (08:47)
[2017-12-07] MEDS: ENOXAPARIN 40 MG/0.4 ML SYRINGE SUBQ SCH (08:47)
[2017-12-07] MEDS: INSULIN ASPART 300 UNIT/3 ML PEN SUBQ SCH ×4 (08:47→11:07)
[2017-12-07] MEDS: INSULIN GLARGINE 300 UNIT/3 ML PEN SUBQ SCH (08:53)
--- NOTE | 2017-12-07 10:39 | Discharge Plan ---
Discharge Plan Disposition: 01 Home, Self Care Condition: Fair Prescriptions: Metronidazole [Flagyl] 500 mg PO TID #42 tablet Diet: Diabetic Activity Restrictions: Activity as Tolerated Shower Restrictions: No Driving Restrictions: No Additional Instructions or Follow Up instructions: You presented to the emergency room with another episode of altered mental status. You were confused, disoriented. You have frequent episodes of diabetic ketoacidosis. Not only were you in diabetic ketoacidosis, you also had Clostridium difficile diarrhea while here. You are being discharged to your regular living situation. You are homeless. Please make an effort to establish yourself with a primary care provider. With every single admission we give you a list of doctors to go to, and, so far, in 4 years, you have not made an appointment. It would help if you could do that you can get medications on a regular basis. We are also asking you to take Flagyl, 3 times a day, and take that for the next 2 weeks. This will treat the Clostridium difficile diarrhea. No Smoking: If you smoke, Please STOP! Call for help.
--- NOTE | 2017-12-09 22:00 | DISCHARGE SUMMARY ---
Physician: Jillian Sandhu MD DATE OF ADMISSION: 12/01/2017 DATE OF DISCHARGE: 12/07/2017 DISCHARGE DIAGNOSES 1. Diabetic ketoacidosis type 1. 2. Severe dehydration. 3. Clostridium difficile diarrhea. 4. Peripheral vascular disease. 5. Psychiatric disorder. 6. Microcytic hyperchromic anemia. 7. Methamphetamine abuse, ongoing. 8. Gastroparesis. DISCHARGE MEDICATIONS 1. Motrin 600 mg p.o. q. 6 hours p.r.n. pain. 2. Elavil 25 mg p.o. at bedtime. 3. Aspirin 81 mg daily. 4. Pletal 100 mg p.o. b.i.d. 5. Catapres 0.1 mg p.o. b.i.d. 6. Cardizem-CD 120 mg p.o. daily. 7. Cymbalta 60 mg p.o. daily. 8. Gabapentin 900 mg p.o. t.i.d. 9. NovoLog short-acting insulin 15 units subcutaneous t.i.d. with meals. 10. NovoLog 3-11 units sliding scale t.i.d. with meals. 11. Lantus 40 units subcutaneous daily. 12. Reglan 10 mg p.o. at bedtime. 13. Metoprolol XL 25 mg p.o. b.i.d. 14. Flagyl 500 mg p.o. t.i.d., 42 tablets. 15. Nystatin cream topically b.i.d. 16. Ditropan 5 mg p.o. b.i.d. 17. Tramadol 50 mg p.o. every 6 hours, last prescribed 10/31/2017, no refills. PRINCIPAL PROCEDURES 1. IV insulin drip in ICU. 2. Central line placement. HOSPITAL COURSE: Felicitas is well known to our hospital and the service. She had multiple admissions for DKA. She has also been admitted for hypothermia, ischemia of her feet with partial amputations b ecause of osteomyelitis, complicated by methamphetamine use, and occasional opiate abuse. With her last hospitalization, she was transferred to an inpatient psychiatric unit in [place]. Per Felicitas, they were unable to keep her because of her complex medical needs and her outburst and unable to treat her psychiatric disorder, so they gave her a bus ticket to come back to [facility]. [place] was found in the bushes this time. Crying out, agitated. Felicitas has no recollection of what primo rosasd that brought her here. She was agitated, combative. Brought into the hospital when the emergency room found her to get again have another episode of DKA and positive methamphetamines. With this admission, she was placed in the ICU, dehydration, electrolyte imbalance, all treated with IV insulin drip. When her sugars come down, she was transitioned to her usual insulin as well as phil d. She has a chronic microcytic anemia. Psychiatric disorder is undiagnosed or unlabeled per us. Rufino arango was objectively apologetic saying that when she comes off of her drugs, she cannot believe how bad and how mean she is, and she apologized to the nurses. Gastroparesis is manifested as nausea and vomiting on one day, but gradually resolved. Clostridium difficile diarrhea was treated with oral a ntibiotics and gradually the diarrhea resolved. We have asked her yet one more time to please establish herself with a primary care provider, so that she can get her medications on a regular basis. She has yet for another glucometer and more test st rips. I have explained to her that with the multiple admissions she has, she has had probably 12-15 prescriptions for glucometer and test strips. To be honest, I explained to her that I think she may be selling it on the street. She did not deny. She is discharged in stable condition, yet to her normal status. PHYSICAL EXAMINATION: VITAL SIGNS: Temperature is 36.4, pulse is 91, blood pressure is 119/75, respirations 20, 95% on chiqui m air. GENERAL: She is a well-nourished, middle-aged, white female with terrible dentition. Over the cours e of the last 4 years, Felicitas has lost quite a bit of weight. NECK: Supple. shotty adenopathy. LUNGS: Are clear. HEART: Regular rate and rhythm. No murmurs. ABDOMEN: Generalized achiness and she grimaces with pain, but no rebound or guarding. Hypoactive guicho wel sounds present. EXTREMITIES: Have partial amputations of her toes. The right fourth toe amputation has a little bit of dryness and eschar there, but there is no redness, no heat, no oozing. She is ambulating without assistance. Greater than 30 minutes was spent coordinating discharge. TD: 12/09/2017 19:30
== END 2017-12-07 12:35 | disposition home or self-care (01) | DRG 637 ==
LOC: EDUNIT# → ED 18:22 → ICU 20:18 → MS2 12-04 15:47
PROVIDERS: ADMIT Internal Medicine; ATTEND Specialist
PROC: 30243N1 Transfusion of Nonautologous Red Blood Cells into Central Vein, Percutaneous Approach (ICD-10-PCS; principal; 2017-12-04)
DX: E10.10 Type 1 diabetes mellitus with ketoacidosis without coma (principal); G92 Toxic encephalopathy; A04.72 Enterocolitis due to Clostridium difficile, not specified as recurrent; N17.9 Acute kidney failure, unspecified; E87.1 Hypo-osmolality and hyponatremia; F15.23 Other stimulant dependence with withdrawal; T38.3X6A Underdosing of insulin and oral hypoglycemic [antidiabetic] drugs, initial encounter; E86.0 Dehydration; D50.9 Iron deficiency anemia, unspecified; I95.9 Hypotension, unspecified; T43.621A Poisoning by amphetamines, accidental (unintentional), initial encounter; Y92.89 Other specified places as the place of occurrence of the external cause; E10.51 Type 1 diabetes mellitus with diabetic peripheral angiopathy without gangrene; E10.43 Type 1 diabetes mellitus with diabetic autonomic (poly)neuropathy; K31.84 Gastroparesis; E10.649 Type 1 diabetes mellitus with hypoglycemia without coma; E10.42 Type 1 diabetes mellitus with diabetic polyneuropathy; F60.9 Personality disorder, unspecified; F31.9 Bipolar disorder, unspecified; F90.9 Attention-deficit hyperactivity disorder, unspecified type; F91.9 Conduct disorder, unspecified; F41.0 Panic disorder [episodic paroxysmal anxiety]; F17.210 Nicotine dependence, cigarettes, uncomplicated; I10 Essential (primary) hypertension; R00.0 Tachycardia, unspecified; M79.7 Fibromyalgia; G89.29 Other chronic pain; E78.00 Pure hypercholesterolemia, unspecified; K64.9 Unspecified hemorrhoids; I25.2 Old myocardial infarction; Z59.0 Homelessness; Z79.899 Other long term (current) drug therapy; Z91.11 Patient's noncompliance with dietary regimen; Z91.14 Patient's other noncompliance with medication regimen; Z89.421 Acquired absence of other right toe(s); Z86.14 Personal history of Methicillin resistant Staphylococcus aureus infection
CPT/HCPCS: 36415; 36556; 71045; 80048; 80053; 80306; 80307; 80320; 80329; 81001; 81003; 81025; 82009; 82272; 82330; 82803; 82947; 83036; 83540; 83605; 83690; 83735; 84100; 84466; 84484; 84703; 85014; 85018; 85025; 86850; 86900; 86901; 86920; 87086; 87150; 87493; 96361; 96374; 96375; 99284; 99291

== ENCOUNTER 2017-12-10 07:09 | Outpatient (CLI) | payer MEDICAID | END 2017-12-10 07:10 | disposition critical access hospital (66) | LOC: EMS 07:09 | PROVIDERS: ATTEND Surgery | DX: R52 Pain, unspecified (principal); R73.09 Other abnormal glucose | CPT/HCPCS: A0425; A0429; A0999 ==

== ENCOUNTER 2017-12-10 07:26 | Emergency (ER) | payer MEDICAID ==
[2017-12-10] MEDS ORDERED: SODIUM CHLORIDE 0.9% 1,000 ML IV ONE ×2 (07:50→09:43)
[2017-12-10] MEDS ORDERED: INSULIN REGULAR HUMAN 100 UNIT in SODIUM CHLORIDE 0.9% 100ML 99 ML IV STA (08:11)
--- NOTE | 2017-12-10 08:38 | ED Physician Documentation ---
History of Present Illness - Stated complaint Stated Complaint: HIGH BLOOD SUGAR - Chief complaint Chief Complaint: General - History obtained from History obtained from: Patient - Additonal information Additional information: The patient is a 37-year-old insulin-dependent diabetic homeless female with history of recent hospitalization for DKA, as well as history of C. difficile diarrhea, gastroparesis, peripheral vascular disease, status post partial amputations of 3 toes on the right foot, microcytic anemia, and ongoing methamphetamine abuse. She was discharged from the hospital 3 days ago after treatment for DKA. She presents now via ambulance stating, "I'm pretty sure I have gone into DKA again." Current blood sugar is elevated at 545. Patient also complains of severe pain in her right middle toe, stating it is worse than it has ever been before. She complains of nausea, but denies fever, abdominal pain, or vomiting. She has had cough without dyspnea. Review of Systems Constitutional: denies: Fever Eyes: denies: Decreased vision Nose: denies: Congestion Throat: denies: Sore throat Cardiac: denies: Chest pain / pressure Respiratory: reports: Cough. denies: Dyspnea GI: denies: Abdominal Pain, Nausea, Vomiting : denies: Dysuria Skin: denies: Rash Musculoskeletal: reports: Extremity pain (right middle toe) Neurologic: reports: Headache. denies: Focal weakness PD PAST MEDICAL HISTORY - Past Medical History Cardiovascular: Hypertension, High cholesterol, Peripheral Vascular Disease, [place] Respiratory: None Neuro: Peripheral neuropathy, Other Endocrine/Autoimmune: Type 1 diabetes GI: Pancreatitis TAILER IN: None : None HEENT: None Psych: Depression, Anxiety, Panic attacks Musculoskeletal: Fibromyalgia Derm: None - Past Surgical History Past Surgical History: Yes General: Cholecystectomy HEENT: Tonsil/Adenoidectomy - Present Medications Home Medications: Ambulatory Orders Medication Instructions Recorded Confirmed Aspirin [Aspirin EC] 81 mg PO DAILY #30 tablet. 08/30/17 12/10/17 Oxybutynin [Ditropan] 5 mg PO BID #60 tablet 08/30/17 12/10/17 Amitriptyline [Elavil] 25 mg PO HS #20 tablet 10/31/17 12/10/17 Cilostazol [Pletal] 100 mg PO BID #60 tablet 10/31/17 12/10/17 DULoxetine [Cymbalta] 60 mg PO DAILY #30 capsule 10/31/17 12/10/17 Ibuprofen [Motrin] 600 mg PO Q6HR PRN #60 tablet 10/31/17 12/10/17 Insulin Aspart [NovoLOG] 3 - 11 unit SUBQ 10/31/17 12/10/17 0800,1200,1700,2100 #3 pen Insulin Aspart [NovoLOG] 15 unit SUBQ TIDWM #3 pen 10/31/17 12/10/17 Metoclopramide [Reglan] 10 mg PO ACHS #60 tablet 10/31/17 12/10/17 Metoprolol Succinate [Toprol Xl] 25 mg PO BID #60 tablet 10/31/17 12/10/17 Nystatin Cream [Mycostatin Cream] 15 gm TOP BID #1 tube 10/31/17 12/10/17 cloNIDine [Catapres] 0.1 mg PO BID #60 tablet 10/31/17 12/10/17 diltiaZEM CD [Cardizem Cd] 120 mg PO DAILY #30 capsule 10/31/17 12/10/17 traMADol [Ultram] 50 mg PO Q6H PRN #10 tablet 10/31/17 12/10/17 Gabapentin [Neurontin] 900 mg PO TID #90 capsule 11/11/17 12/10/17 Insulin Glargine [Lantus Solostar] 40 unit SUBQ QPM #3 pen 11/23/17 12/10/17 Metronidazole [Flagyl] 500 mg PO TID #42 tablet 12/07/17 12/10/17 - Allergies Allergies/Adverse Reactions: Allergies Allergy/AdvReac Type Severity Reaction Status Date / Time codeine Allergy Hives Verified 12/10/17 07:36 hydrocodone Allergy Hives Verified 12/10/17 07:36 morphine Allergy Itching Verified 12/10/17 07:36 milk AdvReac Cramps Verified 12/10/17 07:36 nitrofurantoin AdvReac Headache Verified 12/10/17 07:36 [From Macrobid] PAPER TAPE AdvReac Unknown Uncoded 11/10/17 10:40 - Social History Does the pt smoke?: Yes Smoking Status: Current every day smoker Does the pt drink ETOH?: No Does the pt have substance abuse?: Yes - Immunizations Immunizations are current?: Yes - POLST Patient has POLST: No POLST Status: Full Code PD ED PE NORMAL - Vitals Vital signs reviewed: Yes (hypertensive and tachycardic) - General General: Alert and oriented X 3, Well developed/nourished, Other (Disheveled.) - HEENT HEENT: Atraumatic, Pharynx benign, Other (Dry mucous membranes. Poor dentition, with multiple teeth extracted.) - Neck Neck: Supple, no meningeal sign, No adenopathy, No JVD, Other (Scars on right side of neck from previous central lines.) - Cardiac Cardiac: No murmur, Other (rapid rate, regular rhythm.) - Respiratory Respiratory: No respiratory distress - Abdomen Abdomen: Soft, Non tender - Back Back: No CVA TTP - Derm Derm: No rash - Extremities Extremities: No calf tenderness / cord, Other (Erythematous, tender right middle toe, with eschar at the distal aspect.) - Neuro Neuro: Alert and oriented X 3, No motor deficit, Normal speech Results - Vitals Vitals: Vital Signs - 24 hr 12/10/17 12/10/17 12/10/17 07:28 10:07 12:35 Temperature 36.4 C L 36.5 C 37 C Heart Rate 116 H 119 H 116 H Respiratory 22 22 22 Rate Blood Pressure 170/116 H 138/100 H 157/112 H O2 Saturation 97 96 96 Oxygen O2 Source [Without Activity] Room air O2 Source Room air - Labs Labs: Laboratory Tests 12/10/17 12/10/17 12/10/17 08:55 08:55 08:55 WBC 7.4 RBC 4.39 Hgb 10.8 L Hct 34.6 L MCV 78.7 L MCH 24.5 L MCHC 31.1 L RDW 17.7 H Plt Count 438 MPV 6.9 L Neut # (Auto) 4.7 Lymph # (Auto) 2.0 [place] # (Auto) 0.6 Eos # (Auto) 0.1 Baso # (Auto) 0.1 Absolute Nucleated RBC 0.00 Nucleated RBC % 0.0 VBG pH VBG pCO2 VBG pO2 VBG HCO3 VBG Total CO2 VBG O2 Saturation VBG Base Excess Sodium 130 L Potassium 4.6 Chloride 92 L Carbon Dioxide 15 L Anion Gap 23.0 H BUN 18 Creatinine 0.7 Estimated GFR (MDRD) 95 Glucose 505 H* Lactic Acid 1.2 Calcium 9.1 Total Bilirubin 1.9 H AST 47 H ALT 58 Alkaline Phosphatase 144 H Total Protein 7.7 Albumin 4.3 Globulin 3.4 Albumin/Globulin Ratio 1.3 Lipase 31 Urine Color Urine Clarity Urine pH Ur Specific [place] Urine Protein Urine Glucose (UA) Urine Ketones Urine Occult Blood Urine Nitrite Urine Bilirubin Urine Urobilinogen Ur Leukocyte Esterase Ur Microscopic Review Urine Culture Comments Urine HCG, Qual Urine Opiates Screen Ur Oxycodone Screen Urine Methadone Screen Ur Propoxyphene Screen Ur Barbiturates Screen Ur Tricyclics Screen Ur Phencyclidine Scrn Ur Amphetamine Screen U Methamphetamines Scrn U Benzodiazepines Scrn Urine Cocaine Screen U Cannabinoids Screen Serum Ketones 12/10/17 12/10/17 12/10/17 08:55 10:10 10:10 WBC RBC Hgb Hct MCV MCH MCHC RDW Plt Count MPV Neut # (Auto) Lymph # (Auto) [place] # (Auto) Eos # (Auto) Baso # (Auto) Absolute Nucleated RBC Nucleated RBC % VBG pH VBG pCO2 VBG pO2 VBG HCO3 VBG Total CO2 VBG O2 Saturation VBG Base Excess Sodium Potassium Chloride Carbon Dioxide Anion Gap BUN Creatinine Estimated GFR (MDRD) Glucose Lactic Acid Calcium Total Bilirubin AST ALT Alkaline Phosphatase Total Protein Albumin Globulin Albumin/Globulin Ratio Lipase Urine Color STRAW Urine Clarity CLEAR Urine pH 5.5 Ur Specific [place] 1.020 1.020 Urine Protein NEGATIVE Urine Glucose (UA) >=1000 H Urine Ketones >=80 H Urine Occult Blood NEGATIVE Urine Nitrite NEGATIVE Urine Bilirubin NEGATIVE Urine Urobilinogen 0.2 (NORMAL) Ur Leukocyte Esterase NEGATIVE Ur Microscopic Review NOT INDICATED Urine Culture Comments NOT INDICATED Urine HCG, Qual NEGATIVE Urine Opiates Screen POSITIVE H Ur Oxycodone Screen NEGATIVE Urine Methadone Screen NEGATIVE Ur Propoxyphene Screen NEGATIVE Ur Barbiturates Screen NEGATIVE Ur Tricyclics Screen NEGATIVE Ur Phencyclidine Scrn NEGATIVE Ur Amphetamine Screen POSITIVE H U Methamphetamines Scrn POSITIVE H U Benzodiazepines Scrn NEGATIVE Urine Cocaine Screen NEGATIVE U Cannabinoids Screen NEGATIVE Serum Ketones SMALL H 12/10/17 12/10/17 12/10/17 11:04 15:13 15:28 WBC RBC Hgb Hct MCV MCH MCHC RDW Plt Count MPV Neut # (Auto) Lymph # (Auto) [place] # (Auto) Eos # (Auto) Baso # (Auto) Absolute Nucleated RBC Nucleated RBC % VBG pH 7.407 VBG pCO2 33.5 L VBG pO2 68.3 H VBG HCO3 20.6 L VBG Total CO2 21.6 L VBG O2 Saturation 91.5 H VBG Base Excess -3.4 L Sodium 132 L Potassium 3.7 Chloride 101 Carbon Dioxide 23 Anion Gap 8.0 BUN 16 Creatinine 0.4 Estimated GFR (MDRD) 181 Glucose 181 H Lactic Acid Calcium 8.0 L Total Bilirubin AST ALT Alkaline Phosphatase Total Protein Albumin Globulin Albumin/Globulin Ratio Lipase Urine Color Urine Clarity Urine pH Ur Specific [place] Urine Protein Urine Glucose (UA) Urine Ketones Urine Occult Blood Urine Nitrite Urine Bilirubin Urine Urobilinogen Ur Leukocyte Esterase Ur Microscopic Review Urine Culture Comments Urine HCG, Qual Urine Opiates Screen Ur Oxycodone Screen Urine Methadone Screen Ur Propoxyphene Screen Ur Barbiturates Screen Ur Tricyclics Screen Ur Phencyclidine Scrn Ur Amphetamine Screen U Methamphetamines Scrn U Benzodiazepines Scrn Urine Cocaine Screen U Cannabinoids Screen Serum Ketones SMALL H PD MEDICAL DECISION MAKING - ED course Complexity details: reviewed old records, reviewed results, re-evaluated patient, considered differential, d/w patient, d/w energy sales consultant ED course: The patient presented with multiple problems, including diabetes [id number] with an initial blood sugar of 545, and compensated acidosis with a serum bicarbonate 15, anion gap of 23, but a venous blood gas showing a pH of 7.40. In addition the diabetic ulceration on her right middle toe is causing significant pain. Treatment in the emergency department included administration of 2 L normal saline after anesthesia was consulted to place IV access. An insulin drip was instituted and titrated up to 6 units per hour. Phenergan 12.5 mg is administered IV, fentanyl 50 g IV 2, ketorolac 30 mg IV, oxycodone 5 mg o rally, and Zofran 4 mg IV. Repeat blood sugars showed progressive improvement, with a fingerstick blood sugars of 505, 380, and 304 over the next four hours. I discussed her condition with the hospitalist who initially accepted for further treatment. However on repeat lab draws the patient's bicarbonate had improved to normal at 23 with anion gap of 8.0, and her blood sugar had improved to 181. By that time she was able to eat a sandwich without recurrent vomiting. Despite her desire to be hospitalized, there is no clinical indication for hospitalization following the above treatment in the emergency department with subsequent improvement in her medical condition. Although the patient was given instructions for appropriate outpatient care, it is most likely that she will continue to use illicit drugs and not adequately treat her diabetes, with high likelihood that she will return to the emergency department with recurrent hyperglycemia and dehydration, if not outright DKA. Departure - Departure Disposition: 01 Home, Self Care Clinical Impression: Dehydration Diabetes type 1, uncontrolled Qualifiers: Glycemic state: with hyperglycemia Qualified Code(s): E10.65 - Type 1 diabetes mellitus with hyperglycemia Toe ulcer due to DM Qualifiers: Diabetes mellitus type: type 1 Laterality: right Non-pressure ulcer stage: unspecified non-pressure ulcer stage Qualified Code(s): E10.621 - Type 1 diabetes mellitus with foot ulcer Condition: Stable Comments: Take your insulin as previously prescribed. He continues Reglan as needed for nausea. Refrain from methamphetamine and other nonprescription drugs. Follow-up with primary physician within one to 2 weeks. Call to schedule an appointment. Return to the emergency department if you develop persistent vomiting, recurrent dehydration, increasing pain or swelling of her toe, or otherwise worsening symptoms. Discharge Date/Time: 12/10/17 16:27
[2017-12-10 08:58] LABS: BASOPHILS # (AUTO) 0.1 10^3/uL (0.0-0.1); BASOPHILS % (AUTO) 1.1 %; EOSINOPHILS # (AUTO) 0.1 10^3/uL (0.0-0.7); EOSINOPHILS % (AUTO) 0.7 %; HGB - HEMOGLOBIN 10.8 g/dL (12.0-16.0); LYMPHOCYTES % (AUTO) 26.7 %; MEAN CORPUSCULAR HEMOGLOBIN 24.5 pg (27.0-31.0); MEAN CORPUSCULAR HGB CONC 31.1 g/dL (32.0-36.0); MEAN CORPUSCULAR VOLUME 78.7 fL (81.0-99.0); MEAN PLATELET VOLUME 6.9 fL (7.9-10.8); MONOCYTES # (AUTO) 0.6 10^3/uL (0.0-1.0); MONOCYTES % (AUTO) 8.4 %; NEUTROPHILS # (AUTO) 4.7 10^3/uL (1.5-6.6); NEUTROPHILS % (AUTO) 63.1 %; PLT - PLATELET COUNT 438 10^3/uL (130-450); RED BLOOD COUNT 4.39 10^6/uL (4.20-5.40); RED CELL DISTRIBUTION WIDTH 17.7 % (12.0-15.0); WHITE BLOOD COUNT 7.4 x10^3/uL (4.8-10.8)
[2017-12-10 09:15] LABS: ALBUMIN 4.3 g/dL (3.2-5.5); ALBUMIN/GLOBULIN RATIO 1.3 (1.0-2.2); BILIRUBIN,TOTAL 1.9 mg/dL (0.2-1.0); CALCIUM 9.1 mg/dL (8.5-10.3); CREATININE 0.7 mg/dL (0.4-1.0); TOTAL PROTEIN 7.7 g/dL (6.7-8.2)
[2017-12-10] MEDS ORDERED: fentaNYL 100 MCG/2 ML VIAL IVP STA ×2 (09:43→10:41)
[2017-12-10] MEDS ORDERED: SODIUM CHLORIDE 0.9% 100ML 100 ML IV ONE (09:50)
[2017-12-10 10:18] LABS: MUDS CUTOFF CONCENTRATIONS CUTOFF CONC BELOW:
[2017-12-10 10:24] LABS: BILIRUBIN,URINE NEGATIVE (NEGATIVE); GLUCOSE, URINE (UA) >=1000 mg/dL (NEGATIVE); KETONES,URINE (UA) >=80 mg/dL (NEGATIVE); LEUKOCYTE ESTERASE, URINE NEGATIVE (NEGATIVE); NITRITE,URINE NEGATIVE (NEGATIVE); OCCULT BLOOD,URINE NEGATIVE (NEGATIVE); PH,URINE 5.5 PH (5.0-7.5); PROTEIN,URINE NEGATIVE (NEGATIVE); UROBILINOGEN,URINE 0.2 (NORMAL) E.U./dL (NORMAL)
[2017-12-10 10:34] LABS: CLARITY,URINE CLEAR (CLEAR)
[2017-12-10 10:35] LABS: HCG UR QUAL NEGATIVE
[2017-12-10 10:37] LABS: AMPHETAMINE SCREEN,URINE POSITIVE (NEGATIVE); BENZODIAZEPINES SCREEN, URINE NEGATIVE (NEGATIVE); COCAINE SCREEN URINE NEGATIVE (NEGATIVE); METHADONE SCREEN, URINE NEGATIVE (NEGATIVE); METHAMPHETAMINES SCREEN, URINE POSITIVE (NEGATIVE); OPIATE SCREEN, URINE POSITIVE (NEGATIVE); OXYCODONE SCREEN, URINE NEGATIVE (NEGATIVE); PROPOXYPHENE SCREEN, URINE NEGATIVE (NEGATIVE); TRICYCLIC ANTIDEPRESSANT,URINE NEGATIVE (NEGATIVE)
[2017-12-10] MEDS ORDERED: PROMETHAZINE INJ 12.5 MG in SODIUM CHLORIDE 0.9% 50 ML IV STA (10:41)
[2017-12-10 11:09] LABS: VBG PCO2 33.5 mmHg (41-51); VBG PH 7.407 (7.31-7.41)
[2017-12-10 11:10] LABS: VBG BASE EXCESS -3.4 mmol/L (-2 - +2); VBG PO2 68.3 mmHg (25-47); VBG TOTAL CO2 21.6 mmol/L (24-29)
[2017-12-10 12:36] VITALS: BP 157/112
[2017-12-10] MEDS ORDERED: KETOROLAC 30 MG/ML VIAL IVP STA (12:45)
[2017-12-10] MEDS ORDERED: ONDANSETRON 4 MG/2 ML VIAL IVP STA (13:55)
[2017-12-10] MEDS ORDERED: SODIUM CHLORIDE FLUSH 0.9% 10 ML SYRINGE IVP PRN (15:07)
[2017-12-10] MEDS ORDERED: PROCHLORPERAZINE 10 MG/2 ML VIAL IVP PRN (15:07)
[2017-12-10] MEDS ORDERED: IBUPROFEN 600 MG TABLET PO PRN (15:15)
[2017-12-10] MEDS ORDERED: traMADol 50 MG TABLET PO PRN (15:15)
[2017-12-10 15:42] LABS: CREATININE 0.4 mg/dL (0.4-1.0)
[2017-12-10] MEDS ORDERED: SODIUM CHLORIDE 0.9% 1,000 ML IV SCH (16:00)
[2017-12-10] MEDS ORDERED: METOCLOPRAMIDE 10 MG TABLET PO SCH (16:00)
[2017-12-10] MEDS ORDERED: oxyCODONE 5 MG TABLET ONE (16:12)
[2017-12-10] MEDS ORDERED: oxyCODONE 5 MG TABLET PO SCH (17:00)
[2017-12-10] MEDS ORDERED: SODIUM CHLORIDE FLUSH 0.9% 10 ML SYRINGE IVP SCH (17:00)
[2017-12-10] MEDS ORDERED: INSULIN ASPART 300 UNIT/3 ML PEN SUBQ SCH (17:00)
[2017-12-10] MEDS ORDERED: NYSTATIN CREAM 15 GM TUBE TOP SCH (21:00)
[2017-12-10] MEDS ORDERED: METOPROLOL SUCCINATE 25 MG TABLET PO SCH (21:00)
[2017-12-10] MEDS ORDERED: cloNIDine 0.1 MG TABLET PO SCH ×2 (21:00)
[2017-12-10] MEDS ORDERED: INSULIN GLARGINE 300 UNIT/3 ML PEN SUBQ SCH (21:00)
[2017-12-10] MEDS ORDERED: OXYBUTYNIN 5MG TABLET PO SCH (21:00)
[2017-12-10] MEDS ORDERED: CILOSTAZOL 100 MG TABLET PO SCH (21:00)
[2017-12-10] MEDS ORDERED: AMITRIPTYLINE 25 MG TABLET PO SCH (21:00)
[2017-12-10] MEDS ORDERED: metroNIDAZOLE 250 MG TABLET PO SCH (22:00)
[2017-12-10] MEDS ORDERED: GABAPENTIN 300 MG CAPSULE PO SCH (22:00)
[2017-12-11] MEDS ORDERED: ASPIRIN EC 81 MG TABLET PO SCH (09:00)
[2017-12-11] MEDS ORDERED: diltiaZEM CD 120 MG CAPSULE PO SCH (09:00)
[2017-12-11] MEDS ORDERED: DULoxetine 30 MG CAPSULE PO SCH (09:00)
== END 2017-12-10 16:27 | disposition home or self-care (01) ==
LOC: EDUNIT# → ED 07:26 → ICU 15:07 → UNDOADMOB 15:07 → ED 16:27
DX: E86.0 Dehydration (principal); E10.65 Type 1 diabetes mellitus with hyperglycemia; E10.621 Type 1 diabetes mellitus with foot ulcer; L97.519 Non-pressure chronic ulcer of other part of right foot with unspecified severity; E10.42 Type 1 diabetes mellitus with diabetic polyneuropathy; T38.3X6A Underdosing of insulin and oral hypoglycemic [antidiabetic] drugs, initial encounter; Z91.128 Patient's intentional underdosing of medication regimen for other reason; I10 Essential (primary) hypertension; F17.200 Nicotine dependence, unspecified, uncomplicated; Z59.0 Homelessness; Z79.82 Long term (current) use of aspirin
CPT/HCPCS: 36415; 80048; 80053; 80306; 81003; 81025; 82009; 82803; 83605; 83690; 85025; 96361; 96365; 96375; 96376; 99284; A9270; J1815; J7040; 81001; 82947; 83735; 87086

== ENCOUNTER 2017-12-11 01:58 | Outpatient (CLI) | payer MEDICAID | END 2017-12-11 01:59 | disposition short-term general hospital (02) | LOC: EMS 01:58 | PROVIDERS: ATTEND Surgery | DX: R73.09 Other abnormal glucose (principal); M79.673 Pain in unspecified foot | CPT/HCPCS: A0425; A0429 ==

== ENCOUNTER 2017-12-19 18:22 | Outpatient (CLI) | payer MEDICAID | END 2017-12-19 18:23 | disposition short-term general hospital (02) | LOC: EMS 18:22 | PROVIDERS: ATTEND Surgery | DX: R10.9 Unspecified abdominal pain (principal); R11.2 Nausea with vomiting, unspecified | CPT/HCPCS: A0425; A0429; A0999 ==

== ENCOUNTER 2017-12-30 10:00 | Outpatient (CLI) | payer MEDICAID | END 2017-12-30 10:01 | disposition critical access hospital (66) | LOC: EMS 10:00 | PROVIDERS: ATTEND Surgery | DX: R53.1 Weakness (principal); R11.10 Vomiting, unspecified; R46.4 Slowness and poor responsiveness | CPT/HCPCS: A0425; A0429; A0999 ==

== ENCOUNTER 2017-12-30 10:15 | Inpatient (IN) | payer MEDICAID ==
[2017-12-30] MEDS ORDERED: SODIUM CHLORIDE 0.9% 1,000 ML IV ONE (10:25)
[2017-12-30] MEDS ORDERED: FAMOTIDINE 20 MG/50 ML 50 ML IV ONE (10:26)
--- NOTE | 2017-12-30 10:29 | ED Physician Documentation ---
History of Present Illness - Stated complaint Stated Complaint: FALL - Additonal information Additional information: hx from EMS pt and EMR 37 f well known to our ER non compliant brittle diabetic meth user with recurrent DKA and toe infections to ED today for multiple complaints found lying minimally dressed on sidewalk by post office she has a cough she is vomiting blood/gastroccult + black emesis she states no BM no no melena she had surgery recently at [facility] for bilateral axillary abscess - all she remembers is that they prescribed her dilaudiid - it does not seem she has had any follow up and she says she has pain and the dressings stink per EMS no fall per EMS FSBS 100s obtained records from [facility] - several recent admits, most recent dc was 12/21 pt had surgery for axillary abscesses 12/14 and cx grew MRSA sens to bactrim and resist to clinda (no comment on vanco) toe cx grew MRSA and strep agalactia Review of Systems Constitutional: reports: Chills. denies: Fever Cardiac: denies: Chest pain / pressure Respiratory: reports: Cough GI: reports: Vomiting, Hematemesis. denies: Abdominal Pain Skin: reports: Other (sincere axiallry abscess) Neurologic: reports: Generalized weakness Endocrine: denies: Easy bruising / bleeding Immunocompromised: denies: Immunocompromised PD PAST MEDICAL HISTORY - Past Medical History Cardiovascular: Hypertension, High cholesterol, Peripheral Vascular Disease, [place] Respiratory: None Neuro: Peripheral neuropathy, Other Endocrine/Autoimmune: Type 1 diabetes GI: Pancreatitis MANGANESE WHEELER: None : None HEENT: None Psych: Depression, Anxiety, Panic attacks Musculoskeletal: Fibromyalgia Derm: None - Past Surgical History Past Surgical History: Yes General: Cholecystectomy HEENT: Tonsil/Adenoidectomy - Present Medications Home Medications: Ambulatory Orders Medication Instructions Recorded Confirmed Aspirin [Aspirin EC] 81 mg PO DAILY #30 tablet. 08/30/17 12/30/17 Oxybutynin [Ditropan] 5 mg PO BID #60 tablet 08/30/17 12/30/17 Amitriptyline [Elavil] 25 mg PO HS #20 tablet 10/31/17 12/30/17 Cilostazol [Pletal] 100 mg PO BID #60 tablet 10/31/17 12/30/17 DULoxetine [Cymbalta] 60 mg PO DAILY #30 capsule 10/31/17 12/30/17 Ibuprofen [Motrin] 600 mg PO Q6HR PRN #60 tablet 10/31/17 12/30/17 Insulin Aspart [NovoLOG] 3 - 11 unit SUBQ 10/31/17 12/30/17 0800,1200,1700,2100 #3 pen Insulin Aspart [NovoLOG] 15 unit SUBQ TIDWM #3 pen 10/31/17 12/30/17 Metoclopramide [Reglan] 10 mg PO ACHS #60 tablet 10/31/17 12/30/17 Metoprolol Succinate [Toprol Xl] 25 mg PO BID #60 tablet 10/31/17 12/30/17 Nystatin Cream [Mycostatin Cream] 15 gm TOP BID #1 tube 10/31/17 12/30/17 cloNIDine [Catapres] 0.1 mg PO BID #60 tablet 10/31/17 12/30/17 diltiaZEM CD [Cardizem Cd] 120 mg PO DAILY #30 capsule 10/31/17 12/30/17 traMADol [Ultram] 50 mg PO Q6H PRN #10 tablet 10/31/17 12/30/17 Gabapentin [Neurontin] 900 mg PO TID #90 capsule 11/11/17 12/30/17 Insulin Glargine [Lantus Solostar] 40 unit SUBQ QPM #3 pen 11/23/17 12/30/17 - Allergies Allergies/Adverse Reactions: Allergies Allergy/AdvReac Type Severity Reaction Status Date / Time codeine Allergy Hives Verified 12/10/17 07:36 hydrocodone Allergy Hives Verified 12/10/17 07:36 morphine Allergy Itching Verified 12/10/17 07:36 milk AdvReac Cramps Verified 12/10/17 07:36 nitrofurantoin AdvReac Headache Verified 12/10/17 07:36 [From Macrobid] PAPER TAPE AdvReac Unknown Uncoded 11/10/17 10:40 - Social History Does the pt smoke?: Yes Smoking Status: Current every day smoker Does the pt drink ETOH?: No Does the pt have substance abuse?: Yes - Immunizations Immunizations are current?: Yes - POLST Patient has POLST: No POLST Status: Full Code PD ED PE NORMAL - Vitals Vital signs reviewed: Yes - General General: Alert and oriented X 3, Other (ketotic breath) - HEENT HEENT: PERRL - Neck Neck: Supple, no meningeal sign - Cardiac Cardiac: RRR - Respiratory Respiratory: No respiratory distress - Abdomen Abdomen: Soft, Non tender - Derm Derm: Other (pale mottled legs) - Extremities Extremities: Other (L toes waxy and white c/w early frostbite, R 3rd toe with acute on chronic ulceration no sig erythema right now) - Neuro Neuro: Alert and oriented X 3, Other (more alert than normal for her) Results - Vitals Vitals: Vital Signs - 24 hr 12/30/17 12/30/17 12/30/17 10:17 11:05 11:25 Temperature 36.4 C L Heart Rate 129 H 73 132 H Respiratory 30 H 30 H 26 H Rate Blood Pressure 138/105 H 149/109 H 164/120 H O2 Saturation 100 99 100 12/30/17 12/30/17 12/30/17 12:11 13:00 15:15 Temperature 36.5 C Heart Rate 132 H 128 H 122 H Respiratory 24 16 24 Rate Blood Pressure 144/105 H 144/105 H 154/107 H O2 Saturation 100 100 100 Oxygen O2 Source [Without Activity] Room air O2 Source Room air - Tele (time rhythm occurred) 1130 Telemetry / rhythm strip: Sinus tachycardia - Labs Labs: Laboratory Tests 12/30/17 12/30/17 12/30/17 10:25 11:55 11:55 WBC 23.5 H RBC 5.17 Hgb 12.4 Hct 39.3 MCV 76.0 L MCH 24.0 L MCHC 31.5 L RDW 18.3 H Plt Count 447 MPV 7.8 L Neut # (Auto) 21.0 H Lymph # (Auto) 1.1 L [place] # (Auto) 1.5 H Eos # (Auto) 0.0 Baso # (Auto) 0.0 Absolute Nucleated RBC 0.00 Nucleated RBC % 0.0 Manual Slide Review Indicated Platelet Estimate NORMAL (130-450,000) Platelet Morphology NORMAL APPEARANCE RBC Morph Micro Appear NORMAL APPEARANCE VBG pH 7.227 L VBG pCO2 15.8 L VBG pO2 77.4 H VBG HCO3 6.4 L VBG Total CO2 6.9 L VBG O2 Saturation 93.1 H VBG Base Excess -18.7 L Sodium 126 L Potassium 4.5 Chloride 91 L Carbon Dioxide 7 L* Anion Gap 28.0 H BUN 51 H Creatinine 1.3 H Estimated GFR (MDRD) 46 L Glucose 364 H Lactic Acid Calcium 8.5 Serum HCG, Qual NEGATIVE Urine Color Urine Clarity Urine pH Ur Specific [place] Urine Protein Urine Glucose (UA) Urine Ketones Urine Occult Blood Urine Nitrite Urine Bilirubin Urine Urobilinogen Ur Leukocyte Esterase Urine RBC Urine WBC Ur Squamous Epith Cells Urine Bacteria Ur Microscopic Review Urine Culture Comments Urine Opiates Screen Ur Oxycodone Screen Urine Methadone Screen Ur Propoxyphene Screen Ur Barbiturates Screen Ur Tricyclics Screen Ur Phencyclidine Scrn Ur Amphetamine Screen U Methamphetamines Scrn U Benzodiazepines Scrn Urine Cocaine Screen U Cannabinoids Screen Serum Ketones MODERATE H Blood Type Antibody Screen 12/30/17 12/30/17 12/30/17 11:55 11:55 13:30 WBC RBC Hgb Hct MCV MCH MCHC RDW Plt Count MPV Neut # (Auto) Lymph # (Auto) [place] # (Auto) Eos # (Auto) Baso # (Auto) Absolute Nucleated RBC Nucleated RBC % Manual Slide Review Platelet Estimate Platelet Morphology RBC Morph Micro Appear VBG pH VBG pCO2 VBG pO2 VBG HCO3 VBG Total CO2 VBG O2 Saturation VBG Base Excess Sodium Potassium Chloride Carbon Dioxide Anion Gap BUN Creatinine Estimated GFR (MDRD) Glucose Lactic Acid 1.1 Calcium Serum HCG, Qual Urine Color YELLOW Urine Clarity SL. CLOUDY Urine pH 5.5 Ur Specific [place] >=1.030 H Urine Protein 30 H Urine Glucose (UA) 250 H Urine Ketones >=80 H Urine Occult Blood LARGE H Urine Nitrite NEGATIVE Urine Bilirubin NEGATIVE Urine Urobilinogen 0.2 (NORMAL) Ur Leukocyte Esterase TRACE H Urine RBC 11-25 H Urine WBC 6-10 H Ur Squamous Epith Cells MOD Squamous H Urine Bacteria Few Ur Microscopic Review INDICATED Urine Culture Comments NOT INDICATED Urine Opiates Screen POSITIVE H Ur Oxycodone Screen NEGATIVE Urine Methadone Screen NEGATIVE Ur Propoxyphene Screen NEGATIVE Ur Barbiturates Screen NEGATIVE Ur Tricyclics Screen NEGATIVE Ur Phencyclidine Scrn NEGATIVE Ur Amphetamine Screen NEGATIVE U Methamphetamines Scrn NEGATIVE U Benzodiazepines Scrn NEGATIVE Urine Cocaine Screen NEGATIVE U Cannabinoids Screen NEGATIVE Serum Ketones Blood Type O POSITIVE Antibody Screen NEGATIVE - Rads (name of study) CXR Radiology: See rad report (RLL consolidation) PD MEDICAL DECISION MAKING - ED course ED course: upper GIB RLL pna sincere axillary abscesses s/p surgical I&D tachy and tachypneic but not febrile or hypotensive - meets sepsis criteria since numerous known infections chronically ulcerated R 3rd toe smells ketotic but FSBS not that high - serum glucose is nearly 400 tjhough - started insulin gtt I changed the packing and dressing to sincere axillae anesthesia placed a central line cultures etc drawn given IVF 30cc/kg gave vanco zosyn which should cover both skin and pulm infections in pt with known MRSA and pepcid d/w hospitalist at approx 1 PM Departure - Departure Disposition: [facility] DC/Xfer Clinical Impression: Upper GI bleed, Axillary abscess DKA (diabetic ketoacidoses) Qualifiers: Diabetes mellitus type: type 1 Diabetes mellitus complication detail: without coma Qualified Code(s): E10.10 - Type 1 diabetes mellitus with ketoacidosis without coma Pneumonia Qualifiers: Pneumonia type: due to unspecified organism Laterality: right Lung location: lower lobe of lung Qualified Code(s): J18.1 - Lobar pneumonia, unspecified organism Frostbite Qualifiers: Encounter type: initial encounter Qualified Code(s): T33.90XA - Superficial frostbite of unspecified sites, initial encounter Toe ulcer Qualifiers: Laterality: right Non-pressure ulcer stage: unspecified non-pressure ulcer stage Qualified Code(s): L97.519 - Non-pressure chronic ulcer of other part of right foot with unspecified severity Condition: Poor Discharge Date/Time: 12/30/17 16:17
--- NOTE | 2017-12-30 10:49 | XRAY Report ---
Reason: cough Procedure Date: 12/30/2017 Accession Number: [id number] / [id number] Procedure: XR - Chest 1 View X-Ray CPT Code: 36906 FULL RESULT: EXAM: CHEST RADIOGRAPHY EXAM DATE: 12/30/2017 10:38 AM. CLINICAL HISTORY: Cough. COMPARISON: 12/01/2017 TECHNIQUE: 1 view. FINDINGS: Lungs/Pleura: Patchy right lower lung airspace disease. Lungs otherwise clear. No pleural effusion or pneumothorax. Mediastinum: Within exam limitations, the cardiomediastinal contour is normal. Other: None. IMPRESSION: Patchy right lower lung airspace disease, consider infection. Follow-up to complete radiographic clearing suggested. RADIA
[2017-12-30] MEDS ORDERED: HYDROmorphone 1 MG/ML CARPUJECT IM STA (11:15)
[2017-12-30] MEDS ORDERED: HYDROmorphone 1 MG/ML CARPUJECT ONE (11:20)
[2017-12-30] MEDS ORDERED: PIPERACILLIN/TAZOBACTAM 3.375 GM in SODIUM CHLORIDE 0.9% MINIBAG 100 ML IV STA (11:41)
[2017-12-30] MEDS ORDERED: SODIUM CHLORIDE 0.9% 500 ML IV ONE ×2 (11:45→16:09)
[2017-12-30] MEDS ORDERED: SODIUM CHLORIDE 0.9% IV SCH (12:00)
[2017-12-30] MEDS ORDERED: VANCOMYCIN IV SCH (12:00)
[2017-12-30 12:09] LABS: VBG PH 7.227 (7.31-7.41)
[2017-12-30 12:10] LABS: VBG BASE EXCESS -18.7 mmol/L (-2 - +2); VBG PCO2 15.8 mmHg (41-51); VBG PO2 77.4 mmHg (25-47); VBG TOTAL CO2 6.9 mmol/L (24-29)
[2017-12-30 12:10] LABS: BASOPHILS % (AUTO) 0.2 %; HGB - HEMOGLOBIN 12.4 g/dL (12.0-16.0); LYMPHOCYTES # (AUTO) 1.1 10^3/uL (1.5-3.5); LYMPHOCYTES % (AUTO) 4.5 %; MEAN CORPUSCULAR HGB CONC 31.5 g/dL (32.0-36.0); MEAN PLATELET VOLUME 7.8 fL (7.9-10.8); MONOCYTES # (AUTO) 1.5 10^3/uL (0.0-1.0); MONOCYTES % (AUTO) 6.3 %; PLT - PLATELET COUNT 447 10^3/uL (130-450); RED BLOOD COUNT 5.17 10^6/uL (4.20-5.40); RED CELL DISTRIBUTION WIDTH 18.3 % (12.0-15.0); WHITE BLOOD COUNT 23.5 x10^3/uL (4.8-10.8)
--- NOTE | 2017-12-30 12:10 | XRAY Report ---
Reason: line placement Procedure Date: 12/30/2017 Accession Number: [id number] / [id number] Procedure: XR - Chest 1 View X-Ray CPT Code: 77832 FULL RESULT: EXAM: CHEST RADIOGRAPHY EXAM DATE: 12/30/2017 12:02 PM. CLINICAL HISTORY: Line placement. COMPARISON: CHEST 1 VIEW 12/30/2017 10:26 AM. TECHNIQUE: 1 view. FINDINGS: Lungs/Pleura: No focal opacities evident. No pleural effusion. No pneumothorax. Mediastinum: Within exam limitations, the cardiomediastinal contour is normal. Other: Right IJ approach central venous catheter is seen projecting over the superior right atrium. IMPRESSION: Right IJ approach central venous catheter could be retracted approximately 2 cm for optimal placement. No PICC is seen. RADIA
[2017-12-30] MEDS ORDERED: HYDROmorphone 1 MG/ML CARPUJECT IVP STA (12:12)
--- NOTE | 2017-12-30 12:20 | ANESTHESIA PROCEDURE NOTE ---
Anesth Central Line Template - Central Line Central Line Preparation: Consent Obtained Central line location: Right IJ Central line type: Triple lumen Central line aftercare: Chlorhexidine disc placed, Secured (sutured), No complications, Bundle checklist complete, Pt tolerated well (line checked at bedside CXR with Dr. Coleman R IJ a bit deep, pulled back 2cm and redressed. No repeat CXR done. OK to use.)
[2017-12-30 12:24] LABS: KETONES, SERUM (ACETEST) MODERATE (NEGATIVE)
[2017-12-30 12:27] LABS: PLATELET ESTIMATE, MANUAL NORMAL (130-450,000) (NORMAL); PLATELET MORPHOLOGY NORMAL APPEARANCE (NORMAL)
[2017-12-30 12:28] LABS: RBC MORPHOLOGY (MULTIPLE) NORMAL APPEARANCE (NORMAL)
[2017-12-30 12:41] LABS: HCG,QUALITATIVE BLOOD NEGATIVE
[2017-12-30 12:44] LABS: BUN - BLOOD UREA NITROGEN 51 mg/dL (6-20); CALCIUM 8.5 mg/dL (8.5-10.3); CHLORIDE 91 mmol/L (101-111); CREATININE 1.3 mg/dL (0.4-1.0); GFR - MDRD 46 (>89); GLUCOSE 364 mg/dL (70-100); SODIUM 126 mmol/L (135-145)
[2017-12-30 12:45] LABS: CARBON DIOXIDE - CO2 7 mmol/L (21-32)
[2017-12-30] MEDS ORDERED: KETOROLAC 60 MG/2 ML VIAL IVP STA (13:04)
[2017-12-30] MEDS ORDERED: INSULIN REGULAR HUMAN 100 UNIT in SODIUM CHLORIDE 0.9% 100ML 99 ML IV STA (13:09)
[2017-12-30] MEDS ORDERED: VANCOMYCIN IV STA (13:10)
[2017-12-30] MEDS ORDERED: SODIUM CHLORIDE 0.9% IV STA (13:10)
[2017-12-30 13:46] LABS: MUDS CUTOFF CONCENTRATIONS CUTOFF CONC BELOW:
[2017-12-30 13:51] LABS: GLUCOSE, URINE (UA) 250 mg/dL (NEGATIVE); KETONES,URINE (UA) >=80 mg/dL (NEGATIVE); LEUKOCYTE ESTERASE, URINE TRACE (NEGATIVE); NITRITE,URINE NEGATIVE (NEGATIVE); OCCULT BLOOD,URINE LARGE (NEGATIVE); PH,URINE 5.5 PH (5.0-7.5); PROTEIN,URINE 30 mg/dL (NEGATIVE); UROBILINOGEN,URINE 0.2 (NORMAL) E.U./dL (NORMAL)
[2017-12-30 13:56] LABS: CLARITY,URINE SL. CLOUDY (CLEAR)
[2017-12-30 13:57] LABS: BILIRUBIN,URINE NEGATIVE (NEGATIVE); ICTOTEST,URINE NEGATIVE
[2017-12-30 14:08] LABS: AMPHETAMINE SCREEN,URINE NEGATIVE (NEGATIVE); BACTERIA,URINE Few /HPF (None Seen); BENZODIAZEPINES SCREEN, URINE NEGATIVE (NEGATIVE); COCAINE SCREEN URINE NEGATIVE (NEGATIVE); METHADONE SCREEN, URINE NEGATIVE (NEGATIVE); METHAMPHETAMINES SCREEN, URINE NEGATIVE (NEGATIVE); OPIATE SCREEN, URINE POSITIVE (NEGATIVE); OXYCODONE SCREEN, URINE NEGATIVE (NEGATIVE); PROPOXYPHENE SCREEN, URINE NEGATIVE (NEGATIVE); SQUAMOUS EPITHELIAL CELL,UR MOD Squamous (<= Few); TRICYCLIC ANTIDEPRESSANT,URINE NEGATIVE (NEGATIVE)
[2017-12-30] MEDS ORDERED: ACETAMINOPHEN 1,000 MG/100 ML 100 ML IV STA (14:43)
[2017-12-30] MEDS ORDERED: PROCHLORPERAZINE 10 MG/2 ML VIAL IVP PRN ×2 (15:17→16:23)
[2017-12-30] MEDS ORDERED: SODIUM CHLORIDE FLUSH 0.9% 10 ML SYRINGE IVP PRN (15:17)
[2017-12-30] MEDS ORDERED: ACETAMINOPHEN 325 MG TABLET PO PRN (15:17)
[2017-12-30] MEDS ORDERED: SODIUM BICARBONATE ABBOJECT 4.2% 5 MEQ/10 ML SYRINGE IVP SCH (15:36)
[2017-12-30] MEDS ORDERED: SODIUM BICARBONATE ABBOJECT 4.2% 5 MEQ/10 ML SYRINGE IVP STA (15:36)
[2017-12-30] MEDS ORDERED: INSULIN REGULAR HUMAN 100 UNIT in SODIUM CHLORIDE 0.9% 100ML 99 ML IV SCH ×2 (16:00→17:00)
[2017-12-30] MEDS ORDERED: NS W/20 MEQ KCL 1,000 ML IV SCH (16:00)
[2017-12-30] MEDS ORDERED: VANCOMYCIN PER PHARMACY 100 GM in SODIUM CHLORIDE 0.9% 250 ML IV SCH ×2 (16:00→17:00)
[2017-12-30] MEDS ORDERED: METOCLOPRAMIDE 10 MG/2 ML VIAL IVP SCH (16:00)
[2017-12-30] MEDS ORDERED: SODIUM CHLORIDE FLUSH 0.9% 10 ML SYRINGE ONE (16:04)
[2017-12-30 16:13] LABS: VBG PCO2 27.3 mmHg (41-51); VBG PH 7.312 (7.31-7.41)
[2017-12-30 16:14] LABS: VBG BASE EXCESS -11.3 mmol/L (-2 - +2); VBG TOTAL CO2 14.3 mmol/L (24-29)
[2017-12-30 16:19] LABS: CALCIUM 7.5 mg/dL (8.5-10.3); MAGNESIUM 1.6 mg/dL (1.7-2.8)
[2017-12-30] MEDS: NS W/20 MEQ KCL 1,000 ML IV SCH (17:00)
[2017-12-30] MEDS ORDERED: SODIUM CHLORIDE FLUSH 0.9% 10 ML SYRINGE IVP SCH (17:00)
[2017-12-30] MEDS: SODIUM CHLORIDE FLUSH 0.9% 10 ML SYRINGE IVP SCH ×2 (17:04→22:30)
[2017-12-30 17:56] LABS: KETONES, SERUM (ACETEST) SMALL (NEGATIVE)
[2017-12-30 18:23] LABS: BUN - BLOOD UREA NITROGEN 38 mg/dL (6-20); CALCIUM 7.3 mg/dL (8.5-10.3); CARBON DIOXIDE - CO2 15 mmol/L (21-32); CHLORIDE 100 mmol/L (101-111); CREATININE 0.8 mg/dL (0.4-1.0); GFR - MDRD 81 (>89); GLUCOSE 166 mg/dL (70-100); SODIUM 128 mmol/L (135-145)
[2017-12-30 18:59] LABS: GLUCOSE 137 mg/dL (70-100)
[2017-12-30 19:04] LABS: KETONES, SERUM (ACETEST) SMALL (NEGATIVE)
[2017-12-30] MEDS: PIPERACILLIN/TAZOBACTAM 3.375 GM in SODIUM CHLORIDE 0.9% MINIBAG 100 ML IV SCH (19:30)
[2017-12-30 19:48] LABS: KETONES, SERUM (ACETEST) SMALL (NEGATIVE)
[2017-12-30 19:51] LABS: MAGNESIUM 1.7 mg/dL (1.7-2.8)
--- NOTE | 2017-12-30 20:21 | HISTORY & PHYSICAL EXAMINATION ---
DATE OF SERVICE: 12/30/2017 Physician: Jayshree Vides MD HISTORY OF PRESENT ILLNESS: This is a 37-year-old white female with history of type 1 diabetes, multiple episodes of DKA with ICU admissions here, history of peripheral vascular disease and osteomyelitis resulting in several toe amputations, history of coronary artery disease, hypertension, psychiatric disorder presumably borderline personality, she is also homeless, and noncompliant with medications. The patient also has a history of methamphetamine abuse, is edentulous, goes back to her drug habit as soon as she leaves the hospital. Her last admission here was for DKA exacerbation and she developed C. difficile colitis from antibiotics that were given for a UTI that caused her DKA. Then she was hospitalized at [facility], apparently twice and required I and D of bilateral axillary abscesses. She was discharged on antibiotics. It is unclear if she was able to get antibiotics or take any of her insulin. Today, she [place] half[place] she goes to use the bathroom since she is homeless). She was brought in by ambulance and found to be again in DKA. She was also witnessed to have hematemesis and felt to have frostbite, complaining of cold toes. Workup also shows a right lower lobe infiltrate. She is being admitted to the ICU for an insulin drip on a DKA protocol and for treatment of her DKA, HCAP, axillary abscesses, and upper GI bleed. ALLERGIES: 1. CODEINE. 2. HYDROCODONE. 3. MORPHINE. 4. MILK. 5. NITROFURANTOIN. 6. PAPER TAPE. MEDICATIONS: 1. Insulin. 2. Motrin. 3. Gabapentin. 4. Cymbalta. 5. Pletal. 6. Baby aspirin. 7. Elavil. 8. Ultram. 9. Cardizem-CD. 10. Catapres. 11. Ditropan. 12. Mycostatin cream. 13. Toprol-XL. 14. Reglan. 15. Possibly some other newer antibiotics for her axillary abscesses. REVIEW OF SYSTEMS: A comprehensive review of systems was performed and the pertinent positives are in the HPI, the rest are negative. FAMILY HISTORY: Nothing contributory. SOCIAL HISTORY: She smokes cigarettes, uses methamphetamine, rarely drinks alcohol. PHYSICAL EXAMINATION: GENERAL: Thin, white female. She awakens to her name, but is somnolent. She moans occasionally, especially when her limbs are moved. VITAL SIGNS: Blood pressure 140/105, heart rate 128 in sinus rhythm, afebrile, room air saturation 100%, respiratory rate 20. HEENT: Reveals edentulous and dry oral mucosa. NECK: Without JVD. LUNGS: Has distant breath sounds. HEART: Sounds are distant. ABDOMEN: Soft, nontender. EXTREMITIES: Show small abrasions of her forearms and her shins. Her third right toe has a blackened dry eschar on the very tip, as well as intertriginous between the third and fourth toe. She has amputations of several toes bilaterally. She has no edema. NEUROLOGIC: Lethargic, but grossly intact and nonfocal. LABORATORY DATA: Sodium 126, potassium 4.5, bicarbonate 7, anion gap 28, BUN 51, creatinine 1.3. Lactic acid 1.1. HCG negative. Blood gas showed pH of 7.22. White blood count is 23.5 with a hemoglobin of 12.4, MCV of 76, platelet count 447. Toxicology showed positive opiates and moderate ketones. Urinalysis had squamous cells and large blood, ketones, protein, glucose, and high specific gravity. DIAGNOSTIC STUDIES: Chest x-ray shows a right base infiltrate. She had a CVP line placed and the repeat chest x-ray showed no pneumothorax. IMPRESSION/DIAGNOSES: 1. Diabetic ketoacidosis. 2. Healthcare associated pneumonia. 3. Upper gastrointestinal bleed. 4. Frostbite. 5. Axillary abscesses. 6. Peripheral vascular disease. 7. Coronary artery disease. 8. Homeless. 9. Methamphetamine abuse. PLAN: Admit the patient to the ICU with a DKA protocol including an insulin drip, IV saline with potassium and frequent monitoring of her ketones, glucose and anion gap. Start with ice chips for diet and then eventually, this would be advanced. Obtain blood culture x2, urine culture and wound culture, as well as any respiratory culture if she makes sputum. Start empiric antibiotics to cover HCAP and the abscesses of the axillary areas. Therefore, we will use IV Zosyn and IV vancomycin. Obtain a wound consult. Follow her CMP and CBC daily. Restart her blood pressure and psychiatric medications when she is more awake. CODE STATUS: FULL CODE. DEEP VENOUS THROMBOSIS PROPHYLAXIS: SCDs. ATTESTATION: The patient is expected to be discharged and transferred to another facility within 96 hours: Yes. TD: 12/30/2017 18:50 BRYANNA
[2017-12-30] MEDS: ACETAMINOPHEN 325 MG TABLET PO PRN (20:26)
[2017-12-30] MEDS: FAMOTIDINE 20 MG/50 ML 50 ML IV SCH (20:37)
[2017-12-30] MEDS ORDERED: FAMOTIDINE 20 MG/50 ML 50 ML IV SCH (21:00)
[2017-12-30 21:44] LABS: CALCIUM 7.4 mg/dL (8.5-10.3); CREATININE 0.9 mg/dL (0.4-1.0); MAGNESIUM 1.7 mg/dL (1.7-2.8)
[2017-12-30 22:17] LABS: VBG BASE EXCESS -9.3 mmol/L (-2 - +2); VBG PCO2 24.8 mmHg (41-51); VBG PH 7.368 (7.31-7.41); VBG PO2 65.4 mmHg (25-47); VBG TOTAL CO2 14.7 mmol/L (24-29)
[2017-12-30] MEDS: METOCLOPRAMIDE 10 MG/2 ML VIAL IVP SCH (22:25)
[2017-12-30] MEDS: VANCOMYCIN INJ 1 GM in SODIUM CHLORIDE 0.9% 250 ML IV SCH (22:25)
[2017-12-30] MEDS: SODIUM CHLORIDE FLUSH 0.9% 10 ML SYRINGE IVP PRN (22:31)
[2017-12-31] MEDS: NS W/20 MEQ KCL 1,000 ML IV SCH ×5 (00:42→23:26)
[2017-12-31] MEDS: PIPERACILLIN/TAZOBACTAM 3.375 GM in SODIUM CHLORIDE 0.9% MINIBAG 100 ML IV SCH ×4 (00:50→18:16)
[2017-12-31 01:17] LABS: CALCIUM 7.5 mg/dL (8.5-10.3); CREATININE 0.7 mg/dL (0.4-1.0); MAGNESIUM 1.9 mg/dL (1.7-2.8)
[2017-12-31] MEDS: ACETAMINOPHEN 325 MG TABLET PO PRN ×7 (01:50→20:36)
[2017-12-31] MEDS: LORazepam 2 MG/ML VIAL IVP PRN ×8 (02:50→20:38)
[2017-12-31] MEDS: SODIUM CHLORIDE FLUSH 0.9% 10 ML SYRINGE IVP PRN ×10 (02:50→20:38)
[2017-12-31 05:31] LABS: VBG PH 7.352 (7.31-7.41)
[2017-12-31 05:35] LABS: ALBUMIN 2.8 g/dL (3.2-5.5)
[2017-12-31] MEDS: METOCLOPRAMIDE 10 MG/2 ML VIAL IVP SCH (05:53)
[2017-12-31] MEDS: VANCOMYCIN INJ 1 GM in SODIUM CHLORIDE 0.9% 250 ML IV SCH ×3 (05:54→22:01)
[2017-12-31 06:36] LABS: BASOPHILS # (AUTO) 0.1 10^3/uL (0.0-0.1); BASOPHILS % (AUTO) 0.8 %; EOSINOPHILS % (AUTO) 0.1 %; HGB - HEMOGLOBIN 8.8 g/dL (12.0-16.0); LYMPHOCYTES # (AUTO) 1.6 10^3/uL (1.5-3.5); LYMPHOCYTES % (AUTO) 11.5 %; MEAN CORPUSCULAR HEMOGLOBIN 23.5 pg (27.0-31.0); MEAN CORPUSCULAR HGB CONC 31.9 g/dL (32.0-36.0); MEAN CORPUSCULAR VOLUME 73.8 fL (81.0-99.0); MEAN PLATELET VOLUME 7.7 fL (7.9-10.8); MONOCYTES # (AUTO) 1.2 10^3/uL (0.0-1.0); MONOCYTES % (AUTO) 8.8 %; NEUTROPHILS # (AUTO) 10.7 10^3/uL (1.5-6.6); NEUTROPHILS % (AUTO) 78.8 %; PLT - PLATELET COUNT 280 10^3/uL (130-450); RED BLOOD COUNT 3.73 10^6/uL (4.20-5.40); RED CELL DISTRIBUTION WIDTH 18.5 % (12.0-15.0); WHITE BLOOD COUNT 13.6 x10^3/uL (4.8-10.8)
[2017-12-31 06:38] LABS: PLATELET ESTIMATE, MANUAL NORMAL (130-450,000) (NORMAL); PLATELET MORPHOLOGY PLATELET CLUMPING (NORMAL)
[2017-12-31] MEDS: POTASSIUM CHLOR 20 MEQ/100 ML 20 MEQ/100 ML BAG IV SCH ×2 (08:29→09:38)
[2017-12-31] MEDS: FAMOTIDINE 20 MG/50 ML 50 ML IV SCH ×2 (08:37→20:36)
[2017-12-31] MEDS: GABAPENTIN 300 MG CAPSULE PO SCH ×3 (09:00→22:01)
[2017-12-31] MEDS: ASPIRIN EC 81 MG TABLET PO SCH (09:00)
[2017-12-31] MEDS: DULoxetine 30 MG CAPSULE PO SCH (09:01)
[2017-12-31] MEDS: diltiaZEM CD 120 MG CAPSULE PO SCH (09:02)
[2017-12-31] MEDS: METOPROLOL SUCCINATE 25 MG TABLET PO SCH ×2 (09:03→20:36)
[2017-12-31] MEDS: IBUPROFEN 600 MG TABLET PO PRN ×4 (09:03→16:20)
[2017-12-31] MEDS: CILOSTAZOL 100 MG TABLET PO SCH ×2 (09:04→20:36)
[2017-12-31] MEDS: cloNIDine 0.1 MG TABLET PO SCH ×2 (09:04→20:36)
[2017-12-31] MEDS: SODIUM CHLORIDE FLUSH 0.9% 10 ML SYRINGE IVP SCH ×3 (10:21→22:03)
[2017-12-31] MEDS: METOCLOPRAMIDE 10 MG TABLET PO SCH ×3 (10:38→20:36)
[2017-12-31] MEDS ORDERED: PIPERACILLIN/TAZOBACTAM 3.375 GM in SODIUM CHLORIDE 0.9% MINIBAG 100 ML IV SCH (12:00)
[2017-12-31] MEDS: INSULIN ASPART 300 UNIT/3 ML PEN SUBQ SCH ×5 (12:51→21:19)
[2017-12-31] MEDS: NEUTRA-PHOS 250 MG TABLET PO SCH ×2 (13:13→17:12)
[2017-12-31] MEDS: MULTIVITAMIN W/MINERALS TABLET PO SCH (13:13)
[2017-12-31] MEDS: FERROUS SULFATE 325 MG TABLET PO SCH (13:13)
[2017-12-31] MEDS: NYSTATIN CREAM 15 GM TUBE TOP SCH ×2 (15:07→20:42)
--- NOTE | 2017-12-31 15:39 | PROVIDER PROGRESS NOTE ---
Assessment/Plan - Problem List (1) DKA (diabetic ketoacidoses) Qualifiers: Diabetes mellitus type: type 1 Diabetes mellitus complication detail: without coma Qualified Code(s): E10.10 - Type 1 diabetes mellitus with ketoacidosis without coma Assessment/Plan: Ketones and anion gap are clearing. Pt given food in early am hours. Will change Insulin drip to long actinga dn meal doses and ss Insulin coverage and advance her diet. (2) Gram-positive bacteremia Assessment/Plan: Source appears to be the skin organoisms from the axillae Continue iv Vanco Await BETHEL sensitivities (3) HCAP (healthcare-associated pneumonia) Assessment/Plan: Continue empiric iv Zosyn antibiotic coverage. A sputum sample will be cultured if she makes sputum. (4) Axillary abscess Assessment/Plan: Wound culture growing Staph and Strep Continue Vanco iv (5) HANSA (acute kidney injury) Assessment/Plan: Improving with hydration Continue fluids Monitor BMP daily (6) Upper GI bleed Assessment/Plan: No further hematemesis Continue H2 tianna (7) Anemia Assessment/Plan: Continue Iron replacement Follow CBC, as she may need a transfusion if Hgb drops below 7 - Current Meds Current Meds: Current Medications Generic Name Dose Route Start Last Admin Trade Name Freq PRN Reason Stop Dose Admin Acetaminophen 650 mg 12/30/17 16:23 12/31/17 15:10 Tylenol PO 650 mg Q4HR PRN Administration Pain or Fever > 38C (100.4F) Aspirin 81 mg 12/31/17 09:00 12/31/17 09:00 Ecotrin PO 81 mg DAILY SYLVIA Administration Cilostazol 100 mg 12/31/17 09:00 12/31/17 09:04 Pletal PO 100 mg BID SYLVIA Administration Clonidine HCl 0.1 mg 12/31/17 09:00 12/31/17 09:04 Catapres PO 0.1 mg BID SYLVIA Administration Diltiazem HCl 120 mg 12/31/17 09:00 12/31/17 09:02 Cardizem Cd PO 120 mg DAILY SYLVIA Administration Duloxetine HCl 60 mg 12/31/17 09:00 12/31/17 09:01 Cymbalta PO 60 mg DAILY SYLVIA Administration Ferrous Sulfate 325 mg 12/31/17 11:00 12/31/17 13:13 Feosol PO 325 mg DAILYWM SYVLIA Administration Gabapentin 900 mg 12/31/17 09:00 12/31/17 15:11 Neurontin PO 900 mg TID SYLVIA Administration Heparin Sodium (Beef Lung) 30 - 50 unit 12/31/17 02:52 12/31/17 10:41 IVP 50 unit PRN PRN Administration Central Line Protocol (<24 hr) Potassium Chloride/Sodium Chloride 1,000 mls @ 150 mls/hr 12/30/17 17:00 12/31/17 14:01 Normal Saline 0.9% W/20 Meq Kcl IV 150 mls/hr .Q6H40M SYLVIA Infusion Famotidine 50 mls @ 100 mls/hr 12/30/17 21:00 12/31/17 09:10 Pepcid 20 Mg/50 Ml IV Infused BID SYLVIA Infusion Piperacillin Sod/Tazobactam 100 mls @ 200 mls/hr 12/30/17 19:00 12/31/17 13:41 Sod 3.375 gm/ Sodium Chloride IV Infused Q6H SYLVIA Infusion Vancomycin HCl 1 gm/ Sodium 250 mls @ 167 mls/hr 12/30/17 22:00 12/31/17 13:59 Chloride IV 167 mls/hr Q8H SYLVIA Administration Ibuprofen 600 mg 12/31/17 08:17 12/31/17 15:10 Motrin PO 600 mg Q6HR PRN Administration Pain 1 to 4 Insulin Aspart 15 unit 12/31/17 12:00 12/31/17 12:51 Novolog SUBQ 15 unit TIDWM SYLVIA Administration Insulin Aspart 1 - 5 unit 12/31/17 12:00 12/31/17 13:09 Novolog SUBQ 5 unit 0800,1200,1700,2100 SYLVIA Administration Protocol Lorazepam 0.5 mg 12/31/17 01:54 12/31/17 14:59 Ativan Inj (Vial) IVP 0.5 mg Q2H PRN Administration Anxiety Metoclopramide HCl 10 mg 12/31/17 11:00 12/31/17 10:38 Reglan PO 10 mg ACHS SYLVIA Administration Metoprolol Succinate 25 mg 12/31/17 09:00 12/31/17 09:03 Toprol Xl PO 25 mg BID SYLVIA Administration Multivitamins/Minerals 1 tab 12/31/17 11:00 12/31/17 13:13 Theragran M PO 1 tab DAILYWM SYLVIA Administration Nystatin 1 applic 12/31/17 13:30 12/31/17 15:07 Mycostatin Cream TOP 1 applic BID SYLVIA Administration Sodium Chloride 10 ml 12/30/17 17:00 12/31/17 10:21 Normal Saline Flush 0.9% IVP Not Given 0100,0900,1700 SYLVIA Sodium Chloride 10 ml 12/30/17 16:23 12/31/17 15:01 Normal Saline Flush 0.9% IVP 10 ml PRN PRN Administration NEEDED PER PROVIDER ORDERS Sodium Chloride 20 ml 12/31/17 02:52 12/31/17 06:19 Normal Saline Flush 0.9% IVP 20 ml PRN PRN Administration After Blood Draw Sodium Phosphate 250 mg 12/31/17 12:00 12/31/17 13:13 K-Phos Neutral PO 01/02/18 06:00 250 mg TIDWM SYLVIA Administration - Lab Result Fish Bone Diagrams: 12/31/17 06:12 12/31/17 05:00 - Additional Planning My Orders: My Active Orders 12/30/17 15:17 Activity Orders [RC] Routine Daily Weight [RC] 0600 IO [RC] Q1HR Initiate Bowel Care Protocol [RC] QSHIFT Initiate ICU Electrolyte Prot. [RC] .protocol Initiate Line Care Protocol [RC] .protocol Initiate Personal Care Protoco [RC] .protocol Vital Signs [RC] Q1HR Code Status [OTHERS] Routine Condition of Patient [OTHERS] Routine DVT Prophylaxis [OTHERS] Routine 12/30/17 15:21 Telemetry- [RC] Routine 12/30/17 15:22 Oral Care - Nursing [RC] Routine Oxygen Therapy [RC] .PRN SCDs [RC] QSHIFT 12/30/17 15:28 Initiate Hypoglycemia Protocol [RC] .protocol Notify Provider - Specific Ins [RC] PRN 12/30/17 15:29 Central Line Care [RC] Q4H 12/30/17 16:05 CULTURE, BLOOD (NOTE DRAW #) [] Routine 12/30/17 16:23 Acetaminophen [Tylenol] 650 mg PO Q4HR PRN Prochlorperazine Inj [Compazine Inj] 10 mg IVP Q6HR PRN Sodium Chloride Flush 0.9% [Normal Saline Flush 0.9%] 10 ml IVP PRN PRN 12/30/17 17:00 Ns W/20 Meq KCl [Normal Saline 0.9% W/20 Meq KCl] 1,000 ml IV 150 mls/hr Sodium Chloride Flush 0.9% [Normal Saline Flush 0.9%] 10 ml IVP 0100,0900,1700 12/30/17 18:46 CUL,WOUND (AEROBIC) [RM] Routine CUL,WOUND (AEROBIC) [RM] Routine 12/30/17 19:00 Piperacillin/Tazobactam [Zosyn] 3.375 gm Sodium Chloride 0.9% Minibag [Normal Saline 0.9% Minibag] 100 ml IV Q6H 12/30/17 21:00 Famotidine 20 mg/50 ml [Pepcid 20 mg/50 ml] 50 ml IV BID 12/30/17 22:00 Vancomycin Inj [Vancomycin] 1 gm Sodium Chloride 0.9% [Normal Saline 0.9%] 250 ml IV Q8H 12/31/17 Wound Consult MAC [MAC] Routine 12/31/17 02:52 Heparin Flush 30 - 50 unit IVP PRN PRN Sodium Chloride Flush 0.9% [Normal Saline Flush 0.9%] 20 ml IVP PRN PRN 12/31/17 08:17 Ibuprofen [Motrin] 600 mg PO Q6HR PRN 12/31/17 08:28 Blood Glucose Checks - Eating [RC] 0800,1200,1700,2100 12/31/17 09:00 Aspirin EC [Ecotrin] 81 mg PO DAILY Cilostazol [Pletal] 100 mg PO BID DULoxetine [Cymbalta] 60 mg PO DAILY Gabapentin [Neurontin] 900 mg PO TID Metoprolol Succinate [Toprol Xl] 25 mg PO BID cloNIDine [Catapres] 0.1 mg PO BID diltiaZEM CD [Cardizem Cd] 120 mg PO DAILY 12/31/17 11:00 Ferrous Sulfate [Feosol] 325 mg PO DAILYWM Metoclopramide [Reglan] 10 mg PO ACHS Multivitamin W/Minerals [Theragran M] 1 tab PO DAILYWM 12/31/17 12:00 Insulin Aspart [NovoLOG] 1 - 5 unit SUBQ 0800,1200,1700,2100 Insulin Aspart [NovoLOG] 15 unit SUBQ TIDWM Neutra-Phos [K-Phos Neutral] 250 mg PO TIDWM 12/31/17 13:30 Nystatin Cream [Mycostatin Cream] 1 applic TOP BID 12/31/17 17:00 Saccharomyces Boulardii [Florastor] 250 mg PO BIDWM 12/31/17 21:00 Amitriptyline [Elavil] 25 mg PO HS Insulin Glargine [Lantus Solostar] 40 unit SUBQ QPM 12/31/17 21:30 VANCOMYCIN TROUGH [CHEM] Timed 01/01/18 00:01 Message to Nursing [RC] DAILY 01/01/18 05:00 BMP - BASIC METABOLIC PANEL [CHEM] DAILYLAB CBC - COMP BLD CT W/AUTO DIFF [HEME] DAILYLAB 01/02/18 05:00 BMP - BASIC METABOLIC PANEL [CHEM] DAILYLAB CBC - COMP BLD CT W/AUTO DIFF [HEME] DAILYLAB 01/03/18 05:00 BMP - BASIC METABOLIC PANEL [CHEM] DAILYLAB CBC - COMP BLD CT W/AUTO DIFF [HEME] DAILYLAB Subjective - Subjective Patient Reports: Feeling Better Nursing Reports: Other (Starting to cough, no sputum) Objective Vital Signs: Vital Signs - 24 hr 12/30/17 12/30/17 12/30/17 16:30 17:00 19:00 Temperature 36.6 C Heart Rate [ 120 H 124 H 131 H Monitoring electrodes] Respiratory 18 18 10 L Rate Blood Pressure 137/80 H [Left Brachial artery] Blood Pressure 137/80 H 149/94 H 159/89 H [Right Brachial artery] O2 Saturation 100 99 97 12/30/17 12/30/17 12/30/17 20:00 21:00 22:00 Temperature 36.7 C Heart Rate [ 133 H 131 H 128 H Monitoring electrodes] Respiratory 25 H 23 24 Rate Blood Pressure [Left Brachial artery] Blood Pressure 149/78 H 142/87 H 141/89 H [Right Brachial artery] O2 Saturation 97 97 97 12/30/17 12/31/17 12/31/17 23:00 00:00 01:00 Temperature 36.8 C Heart Rate [ 126 H 128 H 124 H Monitoring electrodes] Respiratory 18 12 22 Rate Blood Pressure [Left Brachial artery] Blood Pressure 146/99 H 154/97 H 139/106 H [Right Brachial artery] O2 Saturation 98 98 98 1112/31/17 12/31/17 02:00 03:00 04:00 Temperature Heart Rate [ 122 H 116 H 112 H Monitoring electrodes] Respiratory 21 25 H 20 Rate Blood Pressure [Left Brachial artery] Blood Pressure 116/94 H 137/93 H 149/98 H [Right Brachial artery] O2 Saturation 99 97 98 12/31/17 12/31/17 12/31/17 05:00 06:00 07:00 Temperature Heart Rate [ 111 H 113 H 110 H Monitoring electrodes] Respiratory 19 18 24 Rate Blood Pressure [Left Brachial artery] Blood Pressure 156/102 H 125/82 H 133/93 H [Right Brachial artery] O2 Saturation 99 99 99 12/31/17 12/31/17 12/31/17 08:00 09:00 10:00 Temperature 36.8 C Heart Rate [ 100 115 H 108 H Monitoring electrodes] Respiratory 22 19 14 Rate Blood Pressure [Left Brachial artery] Blood Pressure 128/81 H 149/103 H 148/85 H [Right Brachial artery] O2 Saturation 96 96 100 12/31/17 12/31/17 12/31/17 11:00 12:00 13:00 Temperature 36.4 C L Heart Rate [ 107 H 116 H 98 Monitoring electrodes] Respiratory 96 H 18 21 Rate Blood Pressure [Left Brachial artery] Blood Pressure 132/96 H 121/78 128/91 H [Right Brachial artery] O2 Saturation 24 L 97 96 12/31/17 14:00 Temperature Heart Rate [ 111 H Monitoring electrodes] Respiratory 18 Rate Blood Pressure [Left Brachial artery] Blood Pressure 115/68 [Right Brachial artery] O2 Saturation 99 Oxygen O2 Source [Without Activity] Room air O2 Source Room air I&O (Last 24 Hrs): Intake and Output Totals x24h 12/29/17 12/30/17 12/31/17 23:59 23:59 23:59 Intake Total 3018.667 5105 Balance 3018.667 5105 General: Alert, Oriented x3 HEENT: Mucous membr. moist/pink, Other (edentulous) Neck: Supple Neuro: Non Focal Cardiovascular: Regular rate, No murmurs Respiratory: No respiratory distress Abdomen: Soft Extremities: No edema, Other (several toes amputeated B, Land R axillae have clean post-op wound incisions) - Results Results: Laboratory Results WBC 13.6 x10^3/uL (4.8-10.8) H 12/31/17 06:12 RBC 3.73 10^6/uL (4.20-5.40) L 12/31/17 06:12 Hgb 8.8 g/dL (12.0-16.0) L 12/31/17 06:12 Hct 27.6 % (37.0-47.0) L 12/31/17 06:12 MCV 73.8 fL (81.0-99.0) L 12/31/17 06:12 MCH 23.5 pg (27.0-31.0) L 12/31/17 06:12 MCHC 31.9 g/dL (32.0-36.0) L 12/31/17 06:12 RDW 18.5 % (12.0-15.0) H 12/31/17 06:12 Plt Count 280 10^3/uL (130-450) 12/31/17 06:12 MPV 7.7 fL (7.9-10.8) L 12/31/17 06:12 Neut # (Auto) 10.7 10^3/uL (1.5-6.6) H 12/31/17 06:12 Lymph # (Auto) 1.6 10^3/uL (1.5-3.5) 12/31/17 06:12 [place] # (Auto) 1.2 10^3/uL (0.0-1.0) H 12/31/17 06:12 Eos # (Auto) 0.0 10^3/uL (0.0-0.7) 12/31/17 06:12 Baso # (Auto) 0.1 10^3/uL (0.0-0.1) 12/31/17 06:12 Absolute Nucleated RBC 0.01 x10^3/uL 12/31/17 06:12 Nucleated RBC % 0.1 /100WBC 12/31/17 06:12 Manual Slide Review Indicated 12/30/17 11:55 Platelet Estimate NORMAL (130-450,000) (NORMAL) 12/31/17 06:12 Platelet Morphology PLATELET CLUMPING (NORMAL) 12/31/17 06:12 RBC Morph Micro Appear NORMAL APPEARANCE (NORMAL) 12/30/17 11:55 VBG pH 7.352 (7.31-7.41) 12/31/17 05:00 VBG pCO2 24.8 mmHg (41-51) L 12/30/17 21:31 VBG pO2 65.4 mmHg (25-47) H 12/30/17 21:31 VBG HCO3 14.0 mmol/L (23-28) L 12/30/17 21: VBG Total CO2 14.7 mmol/L (24-29) L 12/30/17 21: VBG O2 Saturation 97.2 % (60-80) H 12/30/17 21:31 VBG Base Excess -9.3 mmol/L (-2 - +2) L 12/30/17 21:31 Ionized Calcium 1.08 mmol/L (1.15-1.33) L 12/31/17 05:00 Sodium 134 mmol/L (135-145) L 12/31/17 01:00 Potassium 3.5 mmol/L (3.5-5.0) 12/31/17 01:00 Chloride 106 mmol/L (101-111) 12/31/17 01:00 Carbon Dioxide 17 mmol/L (21-32) L 12/31/17 01:00 Anion Gap 11.0 (6-13) 12/31/17 01:00 BUN 25 mg/dL (6-20) H 12/31/17 01:00 Creatinine 0.7 mg/dL (0.4-1.0) 12/31/17 01:00 Estimated GFR (MDRD) 95 (>89) 12/31/17 01:00 Glucose 141 mg/dL (70-100) H 12/31/17 05:00 POC Whole Bld Glucose 121 mg/dL (70 - 100) H 12/31/17 07:58 Lactic Acid 1.1 mmol/L (0.5-2.2) 12/30/17 11:55 Calcium 7.5 mg/dL (8.5-10.3) L 12/31/17 01:00 Phosphorus 1.5 mg/dL (2.5-4.6) L 12/31/17 05:00 Magnesium 1.9 mg/dL (1.7-2.8) 12/31/17 01:00 Albumin 2.8 g/dL (3.2-5.5) L 12/31/17 05:00 Serum HCG, Qual NEGATIVE 12/30/17 11:55 Urine Color YELLOW 12/30/17 13:30 Urine Clarity SL. CLOUDY (CLEAR) 12/30/17 13:30 Urine pH 5.5 PH (5.0-7.5) 12/30/17 13:30 Ur Specific Quail >=1.030 (1.002-1.030) H 12/30/17 13:30 Urine Protein 30 mg/dL (NEGATIVE) H 12/30/17 13:30 Urine Glucose (UA) 250 mg/dL (NEGATIVE) H 12/30/17 13:30 Urine Ketones >=80 mg/dL (NEGATIVE) H 12/30/17 13:30 Urine Occult Blood LARGE (NEGATIVE) H 12/30/17 13:30 Urine Nitrite NEGATIVE (NEGATIVE) 12/30/17 13:30 Urine Bilirubin NEGATIVE (NEGATIVE) 12/30/17 13:30 Urine Urobilinogen 0.2 (NORMAL) E.U./dL (NORMAL) 12/30/17 13:30 Ur Leukocyte Esterase TRACE (NEGATIVE) H 12/30/17 13:30 Urine RBC 11-25 /HPF (0-5) H 12/30/17 13:30 Urine WBC 6-10 /HPF (0-5) H 12/30/17 13:30 Ur Squamous Epith Cells MOD Squamous (<= Few) H 12/30/17 13:30 Urine Bacteria Few /HPF (None Seen) 12/30/17 13:30 Ur Microscopic Review INDICATED 12/30/17 13:30 Urine Culture Comments NOT INDICATED 12/30/17 13:30 Urine Opiates Screen POSITIVE (NEGATIVE) H 12/30/17 13:30 Ur Oxycodone Screen NEGATIVE (NEGATIVE) 12/30/17 13:30 Urine Methadone Screen NEGATIVE (NEGATIVE) 12/30/17 13:30 Ur Propoxyphene Screen NEGATIVE (NEGATIVE) 12/30/17 13:30 Ur Barbiturates Screen NEGATIVE (NEGATIVE) 12/30/17 13:30 Ur Tricyclics Screen NEGATIVE (NEGATIVE) 12/30/17 13:30 Ur Phencyclidine Scrn NEGATIVE (NEGATIVE) 12/30/17 13:30 Ur Amphetamine Screen NEGATIVE (NEGATIVE) 12/30/17 13:30 U Methamphetamines Scrn NEGATIVE (NEGATIVE) 12/30/17 13:30 U Benzodiazepines Scrn NEGATIVE (NEGATIVE) 12/30/17 13:30 Urine Cocaine Screen NEGATIVE (NEGATIVE) 12/30/17 13:30 U Cannabinoids Screen NEGATIVE (NEGATIVE) 12/30/17 13:30 Serum Ketones SMALL (NEGATIVE) H 12/31/17 05:00 Blood Type O POSITIVE 12/30/17 11:55 Antibody Screen NEGATIVE 12/30/17 11:55 - Procedures Procedures: Procedures DETACHMENT AT LEFT 4TH TOE, LOW, OPEN APPROACH (06/30/17) DETACHMENT AT RIGHT 1ST TOE, LOW, OPEN APPROACH (03/14/17) DETACHMENT AT RIGHT 2ND TOE, HIGH, OPEN APPROACH (06/30/17) DETACHMENT AT RIGHT 4TH TOE, HIGH, OPEN APPROACH (06/30/17) INSERT INFUSION DEV IN R INT JUGULAR VEIN, PERC (04/21/16) INSERTION OF INFUSION DEV INTO R SUBCLAV VEIN, PERC APPROACH (03/14/17) INSERTION OF INFUSION DEV INTO SUP VENA CAVA, PERC APPROACH (10/26/17) INSERTION OF INFUSION DEVICE INTO LOWER VEIN, PERC APPROACH (08/13/17) INSERTION OF INFUSION DEVICE INTO R ATRIUM, PERC APPROACH (11/17/17) TRANSFUSE NONAUT RED BLOOD CELLS IN CENTRAL VEIN, PERC (12/01/17) TRANSFUSE NONAUT RED BLOOD CELLS IN PERIPH VEIN, PERC (01/22/17) ULTRASONOGRAPHY OF RIGHT JUGULAR VEINS, GUIDANCE (04/21/16) ABX Reporting Has patient been on IV antibiotics over the past 48 hours?: Yes
[2017-12-31] MEDS: SACCHAROMYCES BOULARDII 250 MG CAPSULE PO SCH (18:05)
[2017-12-31] MEDS: AMITRIPTYLINE 25 MG TABLET PO SCH (20:36)
[2017-12-31] MEDS ORDERED: INSULIN ASPART 300 UNIT/3 ML PEN SUBQ SCH ×2 (21:08→22:50)
[2017-12-31 21:22] LABS: VANCOMYCIN,TROUGH 11.6 ug/mL (10.0-20.0)
[2017-12-31] MEDS: INSULIN GLARGINE 300 UNIT/3 ML PEN SUBQ SCH (21:24)
[2018-01-01] MEDS: PIPERACILLIN/TAZOBACTAM 3.375 GM in SODIUM CHLORIDE 0.9% MINIBAG 100 ML IV SCH ×4 (00:48→18:13)
[2018-01-01 05:29] LABS: VBG PH 7.372 (7.31-7.41)
[2018-01-01 05:30] LABS: BASOPHILS % (AUTO) 0.2 %; EOSINOPHILS # (AUTO) 0.1 10^3/uL (0.0-0.7); EOSINOPHILS % (AUTO) 0.9 %; HGB - HEMOGLOBIN 7.4 g/dL (12.0-16.0); LYMPHOCYTES # (AUTO) 1.6 10^3/uL (1.5-3.5); LYMPHOCYTES % (AUTO) 19.3 %; MEAN CORPUSCULAR HEMOGLOBIN 24.4 pg (27.0-31.0); MEAN CORPUSCULAR HGB CONC 32.8 g/dL (32.0-36.0); MEAN CORPUSCULAR VOLUME 74.3 fL (81.0-99.0); MEAN PLATELET VOLUME 7.1 fL (7.9-10.8); MONOCYTES # (AUTO) 0.6 10^3/uL (0.0-1.0); MONOCYTES % (AUTO) 7.5 %; NEUTROPHILS # (AUTO) 5.8 10^3/uL (1.5-6.6); NEUTROPHILS % (AUTO) 72.1 %; PLT - PLATELET COUNT 229 10^3/uL (130-450); RED BLOOD COUNT 3.02 10^6/uL (4.20-5.40); RED CELL DISTRIBUTION WIDTH 18.3 % (12.0-15.0)
[2018-01-01] MEDS: GABAPENTIN 300 MG CAPSULE PO SCH ×3 (05:31→21:34)
[2018-01-01] MEDS: VANCOMYCIN INJ 1 GM in SODIUM CHLORIDE 0.9% 250 ML IV SCH ×3 (05:31→21:35)
[2018-01-01 05:34] LABS: CALCIUM 7.5 mg/dL (8.5-10.3); CREATININE 0.3 mg/dL (0.4-1.0)
[2018-01-01 05:48] LABS: ALBUMIN 2.3 g/dL (3.2-5.5); MAGNESIUM 2.1 mg/dL (1.7-2.8); PHOSPHORUS 1.3 mg/dL (2.5-4.6)
[2018-01-01] MEDS ORDERED: POTASSIUM PHOSPHATE 21 MMOL in SODIUM CHLORIDE 0.9% 250 ML IV ONE ×2 (05:54→08:00)
[2018-01-01] MEDS ORDERED: POTASSIUM CHLORIDE 20 MEQ TABLET PO ONE (06:00)
[2018-01-01] MEDS ORDERED: SODIUM CHLORIDE 0.9% 250 ML IV ONE (06:18)
[2018-01-01] MEDS: METOCLOPRAMIDE 10 MG TABLET PO SCH ×4 (06:25→20:41)
[2018-01-01] MEDS: NS W/20 MEQ KCL 1,000 ML IV SCH ×3 (06:26→21:42)
[2018-01-01] MEDS: INSULIN ASPART 300 UNIT/3 ML PEN SUBQ SCH ×7 (08:09→20:44)
[2018-01-01] MEDS: NYSTATIN CREAM 15 GM TUBE TOP SCH ×2 (08:11→20:44)
[2018-01-01] MEDS: cloNIDine 0.1 MG TABLET PO SCH (08:20)
[2018-01-01] MEDS: NEUTRA-PHOS 250 MG TABLET PO SCH ×3 (08:20→17:02)
[2018-01-01] MEDS: CILOSTAZOL 100 MG TABLET PO SCH ×2 (08:20→20:41)
[2018-01-01] MEDS: METOPROLOL SUCCINATE 25 MG TABLET PO SCH ×2 (08:20→20:41)
[2018-01-01] MEDS: DULoxetine 30 MG CAPSULE PO SCH (08:20)
[2018-01-01] MEDS: MULTIVITAMIN W/MINERALS TABLET PO SCH (08:20)
[2018-01-01] MEDS: ASPIRIN EC 81 MG TABLET PO SCH (08:20)
[2018-01-01] MEDS: SACCHAROMYCES BOULARDII 250 MG CAPSULE PO SCH ×2 (08:20→17:02)
[2018-01-01] MEDS: diltiaZEM CD 120 MG CAPSULE PO SCH (08:20)
[2018-01-01] MEDS: FERROUS SULFATE 325 MG TABLET PO SCH (08:20)
[2018-01-01] MEDS: SODIUM CHLORIDE FLUSH 0.9% 10 ML SYRINGE IVP SCH ×2 (08:21→17:02)
[2018-01-01] MEDS: FAMOTIDINE 20 MG/50 ML 50 ML IV SCH ×2 (08:21→20:40)
[2018-01-01] MEDS: IBUPROFEN 600 MG TABLET PO PRN (13:05)
--- NOTE | 2018-01-01 15:05 | PROVIDER PROGRESS NOTE ---
Assessment/Plan - Problem List (1) Bacteremia due to group B Streptococcus Assessment/Plan: Continue iv Vanco. Obtain Echo to R/O endocarditis. Plan will be for a 14 day course of antibiotics, unless she has endocarditis, then a 6 week iv antibiotic course. (2) Diabetes type 1, uncontrolled Qualifiers: Glycemic state: with hyperglycemia Qualified Code(s): E10.65 - Type 1 diabetes mellitus with hyperglycemia Assessment/Plan: Continue Lantus, ss Insulin and meal Insulin coverage for fingerstick glu check s, and carb-controlled diet. (3) HCAP (healthcare-associated pneumonia) Assessment/Plan: Continue empiric iv Zosyn for HCAP. (4) Axillary abscess Assessment/Plan: Wound consult by MANAGER EMERGENCY done and dressing orders being followed by nurses. Also continue iv Vanco for MRSA and Streptoccocus which grew from wound cultures.. (5) Upper GI bleed Assessment/Plan: No further hematemesis. No EGD can be done here, the general surgeon available does not do EGDs (Dr Schrader). Continue empiric H2 blockers. (6) Anemia Assessment/Plan: Continue iron rplacement. Monitor daily H/H for any transfusion need. (7) Diarrhea due to drug Assessment/Plan: She had C diff on admission here 2 weeks ago. She will therefore have (+) findings if her stool is tested. Will start treatment for C diff with oral Vanco, plusImodium and Florastor was already started. (8) Electrolyte imbalance Assessment/Plan: Replace K and PO4. Monitor BMP daily. (9) DKA (diabetic ketoacidoses) Qualifiers: Diabetes mellitus type: type 1 Diabetes mellitus complication detail: without coma Qualified Code(s): E10.10 - Type 1 diabetes mellitus with ketoacidosis without coma Assessment/Plan: Resolved (10) HANSA (acute kidney injury) Assessment/Plan: Resolved. - Current Meds Current Meds: Current Medications Generic Name Dose Route Start Last Admin Trade Name Freq PRN Reason Stop Dose Admin Acetaminophen 650 mg 12/30/17 16:23 12/31/17 20:36 Tylenol PO 650 mg Q4HR PRN Administration Pain or Fever > 38C (100.4F) Amitriptyline HCl 25 mg 12/31/17 21:00 12/31/17 20:36 Elavil PO 25 mg HS SYLVIA Administration Aspirin 81 mg 12/31/17 09:00 01/01/18 08:20 Ecotrin PO 81 mg DAILY SYLVIA Administration Cilostazol 100 mg 12/31/17 09:00 01/01/18 08:20 Pletal PO 100 mg BID SYLVIA Administration Diltiazem HCl 120 mg 12/31/17 09:00 01/01/18 08:20 Cardizem Cd PO 120 mg DAILY SYLVIA Administration Duloxetine HCl 60 mg 12/31/17 09:00 01/01/18 08:20 Cymbalta PO 60 mg DAILY SYLVIA Administration Ferrous Sulfate 325 mg 12/31/17 11:00 01/01/18 08:20 Feosol PO 325 mg DAILYWM SYLVIA Administration Gabapentin 900 mg 12/31/17 09:00 01/01/18 13:05 Neurontin PO 900 mg TID SYLVIA Administration Heparin Sodium (Beef Lung) 30 - 50 unit 12/31/17 02:52 12/31/17 10:41 IVP 50 unit PRN PRN Administration Central Line Protocol (<24 hr) Potassium Chloride/Sodium Chloride 1,000 mls @ 150 mls/hr 12/30/17 17:00 01/01/18 14:57 Normal Saline 0.9% W/20 Meq Kcl IV 150 mls/hr .Q6H40M SYLVIA Administration Famotidine 50 mls @ 100 mls/hr 12/30/17 21:00 01/01/18 09:04 Pepcid 20 Mg/50 Ml IV Infused BID SYLVIA Infusion Piperacillin Sod/Tazobactam 100 mls @ 200 mls/hr 12/30/17 19:00 01/01/18 12:58 Sod 3.375 gm/ Sodium Chloride IV Infused Q6H SYLVIA Infusion Vancomycin HCl 1 gm/ Sodium 250 mls @ 167 mls/hr 12/30/17 22:00 01/01/18 14:52 Chloride IV 167 mls/hr Q8H SYLVIA Administration Ibuprofen 600 mg 12/31/17 08:17 01/01/18 13:05 Motrin PO 600 mg Q6HR PRN Administration Pain 1 to 4 Insulin Aspart 15 unit 12/31/17 12:00 01/01/18 11:57 Novolog SUBQ 15 unit TIDWM SYLVIA Administration Insulin Aspart 1 - 9 unit 01/01/18 08:00 01/01/18 11:52 Novolog SUBQ Not Given 0800,1200,1700,2100 [facility] Protocol Insulin Glargine 40 unit 12/31/17 21:00 12/31/17 21:24 Lantus Solostar SUBQ 40 unit QPM SYLVIA Administration Lorazepam 0.5 mg 12/31/17 01:54 12/31/17 20:38 Ativan Inj (Vial) IVP 0.5 mg Q2H PRN Administration Anxiety Metoclopramide HCl 10 mg 12/31/17 11:00 01/01/18 11:08 Reglan PO 10 mg ACHS SYLVIA Administration Metoprolol Succinate 25 mg 12/31/17 09:00 01/01/18 08:20 Toprol Xl PO 25 mg BID SYLVIA Administration Multivitamins/Minerals 1 tab 12/31/17 11:00 01/01/18 08:20 Theragran M PO 1 tab DAILYWM SYLVIA Administration Nystatin 1 applic 12/31/17 13:30 01/01/18 08:11 Mycostatin Cream TOP 1 applic BID SYLVIA Administration Saccharomyces Boulardii 250 mg 12/31/17 17:00 01/01/18 08:20 Florastor PO 250 mg BIDWM SYLVIA Administration Sodium Chloride 10 ml 12/30/17 17:00 01/01/18 08:21 Normal Saline Flush 0.9% IVP 10 ml 0100,0900,1700 SYLVIA Administration Sodium Chloride 10 ml 12/30/17 16:23 12/31/17 20:38 Normal Saline Flush 0.9% IVP 10 ml PRN PRN Administration NEEDED PER PROVIDER ORDERS Sodium Chloride 20 ml 12/31/17 02:52 12/31/17 06:19 Normal Saline Flush 0.9% IVP 20 ml PRN PRN Administration After Blood Draw Sodium Phosphate 250 mg 12/31/17 12:00 01/01/18 12:09 K-Phos Neutral PO 01/02/18 06:00 250 mg TIDWM SYLVIA Administration - Lab Result Fish Bone Diagrams: 01/01/18 05:16 01/01/18 05:16 - Additional Planning My Orders: My Active Orders 12/31/17 17:00 Saccharomyces Boulardii [Florastor] 250 mg PO BIDWM 12/31/17 21:00 Amitriptyline [Elavil] 25 mg PO HS Insulin Glargine [Lantus Solostar] 40 unit SUBQ QPM 01/01/18 00:01 Message to Nursing [RC] DAILY 01/01/18 08:00 Insulin Aspart [NovoLOG] 1 - 9 unit SUBQ 0800,1200,1700,2100 01/01/18 09:04 Echo Transthoracic Complete [ECHO] Routine 01/02/18 05:00 BMP - BASIC METABOLIC PANEL [CHEM] DAILYLAB CBC - COMP BLD CT W/AUTO DIFF [HEME] DAILYLAB 01/03/18 05:00 BMP - BASIC METABOLIC PANEL [CHEM] DAILYLAB CBC - COMP BLD CT W/AUTO DIFF [HEME] DAILYLAB Subjective - Subjective Patient Reports: Resting Comfortably Nursing Reports: Other (3 loose BMs this afternoon) Objective Vital Signs: Vital Signs - 24 hr 12/31/17 12/31/17 12/31/17 16:00 17:00 18:00 Temperature 37 C Heart Rate [ 105 H 106 H 102 H Monitoring electrodes] Respiratory 14 16 14 Rate Blood Pressure 113/77 123/84 H 125/80 [Right Brachial artery] O2 Saturation 97 100 99 12/31/17 12/31/17 12/31/17 19:00 20:00 21:00 Temperature 36.8 C Heart Rate [ 103 H 101 H 100 Monitoring electrodes] Respiratory 14 22 18 Rate Blood Pressure 121/78 115/81 H 109/68 [Right Brachial artery] O2 Saturation 100 96 97 12/31/17 12/31/17 01/01/18 22:00 23:00 00:00 Temperature 36.8 C Heart Rate [ 90 97 98 Monitoring electrodes] Respiratory 22 23 18 Rate Blood Pressure 98/58 L 117/75 112/81 H [Right Brachial artery] O2 Saturation 100 99 96 01/01/18 01/01/18 01/01/18 01:00 02:00 03:00 Temperature Heart Rate [ 96 92 91 Monitoring electrodes] Respiratory 22 18 20 Rate Blood Pressure 96/63 86/54 L 97/68 [Right Brachial artery] O2 Saturation 96 93 96 01/01/18 01/01/18 01/01/18 04:00 05:00 06:00 Temperature 36.8 C Heart Rate [ 85 92 93 Monitoring electrodes] Respiratory 22 20 19 Rate Blood Pressure 106/69 100/63 93/59 L [Right Brachial artery] O2 Saturation 98 96 94 01/01/18 01/01/18 01/01/18 07:00 08:00 09:00 Temperature Heart Rate [ 98 99 95 Monitoring electrodes] Respiratory 22 16 18 Rate Blood Pressure 99/66 104/65 105/70 [Right Brachial artery] O2 Saturation 96 97 100 01/01/18 01/01/18 01/01/18 10:00 11:00 12:00 Temperature 36.7 C Heart Rate [ 97 97 115 H Monitoring electrodes] Respiratory 18 16 20 Rate Blood Pressure 99/65 101/69 111/72 [Right Brachial artery] O2 Saturation 96 95 01/01/18 01/01/18 13:00 14:00 Temperature Heart Rate [ 118 H 116 H Monitoring electrodes] Respiratory 16 16 Rate Blood Pressure 102/75 98/65 [Right Brachial artery] O2 Saturation 97 Oxygen O2 Source [Without Activity] Room air O2 Source Room air I&O (Last 24 Hrs): Intake and Output Totals x24h 12/30/17 12/31/17 01/01/18 23:59 23:59 23:59 Intake Total 3018.667 9245 5817 Output Total 201 600 Balance 3018.667 9044 5217 General: Other (Lethargic) HEENT: Mucous membr. moist/pink Neck: Supple, No JVD Neuro: Non Focal Cardiovascular: Regular rate, No murmurs Respiratory: No respiratory distress Abdomen: Soft Extremities: Other (Toes amputated) - Results Results: Laboratory Results WBC 8.0 x10^3/uL (4.8-10.8) 01/01/18 05:16 RBC 3.02 10^6/uL (4.20-5.40) L 01/01/18 05:16 Hgb 7.4 g/dL (12.0-16.0) L 01/01/18 05:16 Hct 22.5 % (37.0-47.0) L 01/01/18 05:16 MCV 74.3 fL (81.0-99.0) L 01/01/18 05:16 MCH 24.4 pg (27.0-31.0) L 01/01/18 05:16 MCHC 32.8 g/dL (32.0-36.0) 01/01/18 05:16 RDW 18.3 % (12.0-15.0) H 01/01/18 05:16 Plt Count 229 10^3/uL (130-450) 01/01/18 05:16 MPV 7.1 fL (7.9-10.8) L 01/01/18 05:16 Neut # (Auto) 5.8 10^3/uL (1.5-6.6) 01/01/18 05:16 Lymph # (Auto) 1.6 10^3/uL (1.5-3.5) 01/01/18 05:16 [place] # (Auto) 0.6 10^3/uL (0.0-1.0) 01/01/18 05:16 Eos # (Auto) 0.1 10^3/uL (0.0-0.7) 01/01/18 05:16 Baso # (Auto) 0.0 10^3/uL (0.0-0.1) 01/01/18 05:16 Absolute Nucleated RBC 0.00 x10^3/uL 01/01/18 05:16 Nucleated RBC % 0.0 /100WBC 01/01/18 05:16 Manual Slide Review Indicated 12/30/17 11:55 Platelet Estimate NORMAL (130-450,000) (NORMAL) 12/31/17 06:12 Platelet Morphology PLATELET CLUMPING (NORMAL) 12/31/17 06:12 RBC Morph Micro Appear NORMAL APPEARANCE (NORMAL) 12/30/17 11:55 VBG pH 7.372 (7.31-7.41) 01/01/18 05:16 VBG pCO2 24.8 mmHg (41-51) L 12/30/17 21:31 VBG pO2 65.4 mmHg (25-47) H 12/30/17 21:31 VBG HCO3 14.0 mmol/L (23-28) L 12/30/17 21:31 VBG Total CO2 14.7 mmol/L (24-29) L 12/30/17 21:31 VBG O2 Saturation 97.2 % (60-80) H 12/30/17 21:31 VBG Base Excess -9.3 mmol/L (-2 - +2) L 12/30/17 21:31 Ionized Calcium 1.12 mmol/L (1.15-1.33) L 01/01/18 05:16 Sodium 136 mmol/L (135-145) 01/01/18 05:16 Potassium 3.3 mmol/L (3.5-5.0) L 01/01/18 05:16 Chloride 105 mmol/L (101-111) 01/01/18 05:16 Carbon Dioxide 23 mmol/L (21-32) 01/01/18 05:16 Anion Gap 8.0 (6-13) 01/01/18 05:16 BUN 12 mg/dL (6-20) 01/01/18 05:16 Creatinine 0.3 mg/dL (0.4-1.0) L 01/01/18 05:16 Estimated GFR (MDRD) 252 (>89) 01/01/18 05:16 Glucose 167 mg/dL (70-100) H 01/01/18 05:16 POC Whole Bld Glucose 266 mg/dL (70 - 100) H 01/01/18 00:44 Lactic Acid 1.1 mmol/L (0.5-2.2) 12/30/17 11:55 Calcium 7.5 mg/dL (8.5-10.3) L 01/01/18 05:16 Phosphorus 1.3 mg/dL (2.5-4.6) L 01/01/18 05:16 Magnesium 2.1 mg/dL (1.7-2.8) 01/01/18 05:16 Albumin 2.3 g/dL (3.2-5.5) L 01/01/18 05:16 Serum HCG, Qual NEGATIVE 12/30/17 11:55 Urine Color YELLOW 12/30/17 13:30 Urine Clarity SL. CLOUDY (CLEAR) 12/30/17 13:30 Urine pH 5.5 PH (5.0-7.5) 12/30/17 13:30 Ur Specific [place] >=1.030 (1.002-1.030) H 12/30/17 13:30 Urine Protein 30 mg/dL (NEGATIVE) H 12/30/17 13:30 Urine Glucose (UA) 250 mg/dL (NEGATIVE) H 12/30/17 13:30 Urine Ketones >=80 mg/dL (NEGATIVE) H 12/30/17 13:30 Urine Occult Blood LARGE (NEGATIVE) H 12/30/17 13:30 Urine Nitrite NEGATIVE (NEGATIVE) 12/30/17 13:30 Urine Bilirubin NEGATIVE (NEGATIVE) 12/30/17 13:30 Urine Urobilinogen 0.2 (NORMAL) E.U./dL (NORMAL) 12/30/17 13:30 Ur Leukocyte Esterase TRACE (NEGATIVE) H 12/30/17 13:30 Urine RBC 11-25 /HPF (0-5) H 12/30/17 13:30 Urine WBC 6-10 /HPF (0-5) H 12/30/17 13:30 Ur Squamous Epith Cells MOD Squamous (<= Few) H 12/30/17 13:30 Urine Bacteria Few /HPF (None Seen) 12/30/17 13:30 Ur Microscopic Review INDICATED 12/30/17 13:30 Urine Culture Comments NOT INDICATED 12/30/17 13:30 Last Dose Date 12/31/17 12/31/17 21:09 Last Dose Time 1600 12/31/17 21:09 Vancomycin Trough 11.6 ug/mL (10.0-20.0) 12/31/17 21:09 Urine Opiates Screen POSITIVE (NEGATIVE) H 12/30/17 13:30 Ur Oxycodone Screen NEGATIVE (NEGATIVE) 12/30/17 13:30 Urine Methadone Screen NEGATIVE (NEGATIVE) 12/30/17 13:30 Ur Propoxyphene Screen NEGATIVE (NEGATIVE) 12/30/17 13:30 Ur Barbiturates Screen NEGATIVE (NEGATIVE) 12/30/17 13:30 Ur Tricyclics Screen NEGATIVE (NEGATIVE) 12/30/17 13:30 Ur Phencyclidine Scrn NEGATIVE (NEGATIVE) 12/30/17 13:30 Ur Amphetamine Screen NEGATIVE (NEGATIVE) 12/30/17 13:30 U Methamphetamines Scrn NEGATIVE (NEGATIVE) 12/30/17 13:30 U Benzodiazepines Scrn NEGATIVE (NEGATIVE) 12/30/17 13:30 Urine Cocaine Screen NEGATIVE (NEGATIVE) 12/30/17 13:30 U Cannabinoids Screen NEGATIVE (NEGATIVE) 12/30/17 13:30 Serum Ketones SMALL (NEGATIVE) H 12/31/17 05:00 Blood Type O POSITIVE 12/30/17 11:55 Antibody Screen NEGATIVE 12/30/17 11:55 - Procedures Procedures: Procedures DETACHMENT AT LEFT 4TH TOE, LOW, OPEN APPROACH (06/30/17) DETACHMENT AT RIGHT 1ST TOE, LOW, OPEN APPROACH (03/14/17) DETACHMENT AT RIGHT 2ND TOE, HIGH, OPEN APPROACH (06/30/17) DETACHMENT AT RIGHT 4TH TOE, HIGH, OPEN APPROACH (06/30/17) INSERT INFUSION DEV IN R INT JUGULAR VEIN, PERC (04/21/16) INSERTION OF INFUSION DEV INTO R SUBCLAV VEIN, PERC APPROACH (03/14/17) INSERTION OF INFUSION DEV INTO SUP VENA CAVA, PERC APPROACH (10/26/17) INSERTION OF INFUSION DEVICE INTO LOWER VEIN, PERC APPROACH (08/13/17) INSERTION OF INFUSION DEVICE INTO R ATRIUM, PERC APPROACH (11/17/17) TRANSFUSE NONAUT RED BLOOD CELLS IN CENTRAL VEIN, PERC (12/01/17) TRANSFUSE NONAUT RED BLOOD CELLS IN PERIPH VEIN, PERC (01/22/17) ULTRASONOGRAPHY OF RIGHT JUGULAR VEINS, GUIDANCE (04/21/16)
[2018-01-01] MEDS: guaiFENesin 600 MG TABLET PO SCH (18:13)
[2018-01-01] MEDS ORDERED: LOPERAMIDE 2 MG CAPSULE PO PRN (19:21)
[2018-01-01] MEDS: AMITRIPTYLINE 25 MG TABLET PO SCH (20:40)
[2018-01-01] MEDS: VANCOMYCIN 125 MG CAPSULE PO SCH (20:40)
[2018-01-01] MEDS: INSULIN GLARGINE 300 UNIT/3 ML PEN SUBQ SCH (20:43)
[2018-01-01] MEDS: guaiFENesin/CODEINE 5 ML UDC PO PRN (20:51)
[2018-01-01] MEDS: ACETAMINOPHEN 325 MG TABLET PO PRN (20:57)
[2018-01-02] MEDS: PIPERACILLIN/TAZOBACTAM 3.375 GM in SODIUM CHLORIDE 0.9% MINIBAG 100 ML IV SCH ×4 (00:45→18:47)
[2018-01-02] MEDS: NS W/20 MEQ KCL 1,000 ML IV SCH ×3 (00:49→17:33)
[2018-01-02] MEDS: BENZOCAINE/MENTHOL LOZENGE MM PRN ×5 (03:19→22:04)
[2018-01-02] MEDS: ACETAMINOPHEN 325 MG TABLET PO PRN ×4 (04:45→19:07)
[2018-01-02] MEDS: IBUPROFEN 600 MG TABLET PO PRN ×3 (04:45→17:41)
[2018-01-02] MEDS: SODIUM CHLORIDE FLUSH 0.9% 10 ML SYRINGE IVP SCH ×4 (04:52→23:59)
[2018-01-02] MEDS: SODIUM CHLORIDE FLUSH 0.9% 10 ML SYRINGE IVP PRN ×2 (04:52→13:02)
[2018-01-02 05:09] LABS: BASOPHILS % (AUTO) 0.3 %; EOSINOPHILS # (AUTO) 0.1 10^3/uL (0.0-0.7); EOSINOPHILS % (AUTO) 0.7 %; HGB - HEMOGLOBIN 7.5 g/dL (12.0-16.0); LYMPHOCYTES # (AUTO) 1.5 10^3/uL (1.5-3.5); LYMPHOCYTES % (AUTO) 17.5 %; MEAN CORPUSCULAR HEMOGLOBIN 23.7 pg (27.0-31.0); MEAN CORPUSCULAR HGB CONC 31.6 g/dL (32.0-36.0); MEAN CORPUSCULAR VOLUME 74.9 fL (81.0-99.0); MEAN PLATELET VOLUME 7.3 fL (7.9-10.8); MONOCYTES # (AUTO) 0.5 10^3/uL (0.0-1.0); MONOCYTES % (AUTO) 6.1 %; NEUTROPHILS # (AUTO) 6.5 10^3/uL (1.5-6.6); NEUTROPHILS % (AUTO) 75.4 %; PLT - PLATELET COUNT 242 10^3/uL (130-450); RED BLOOD COUNT 3.16 10^6/uL (4.20-5.40); RED CELL DISTRIBUTION WIDTH 19.1 % (12.0-15.0); VBG PH 7.417 (7.31-7.41); WHITE BLOOD COUNT 8.6 x10^3/uL (4.8-10.8)
[2018-01-02 05:23] LABS: CALCIUM 7.5 mg/dL (8.5-10.3); CREATININE 0.3 mg/dL (0.4-1.0); PHOSPHORUS 2.4 mg/dL (2.5-4.6)
[2018-01-02] MEDS: GABAPENTIN 300 MG CAPSULE PO SCH ×3 (05:43→21:31)
[2018-01-02] MEDS: VANCOMYCIN INJ 1 GM in SODIUM CHLORIDE 0.9% 250 ML IV SCH ×3 (05:43→21:29)
[2018-01-02] MEDS: METOCLOPRAMIDE 10 MG TABLET PO SCH ×4 (06:52→20:30)
[2018-01-02] MEDS: VANCOMYCIN 125 MG CAPSULE PO SCH ×4 (08:10→20:30)
[2018-01-02] MEDS: MULTIVITAMIN W/MINERALS TABLET PO SCH (08:10)
[2018-01-02] MEDS: DULoxetine 30 MG CAPSULE PO SCH (08:10)
[2018-01-02] MEDS: diltiaZEM CD 120 MG CAPSULE PO SCH (08:11)
[2018-01-02] MEDS: CILOSTAZOL 100 MG TABLET PO SCH ×2 (08:11→20:30)
[2018-01-02] MEDS: SACCHAROMYCES BOULARDII 250 MG CAPSULE PO SCH ×2 (08:11→16:54)
[2018-01-02] MEDS: METOPROLOL SUCCINATE 25 MG TABLET PO SCH ×2 (08:11→20:30)
[2018-01-02] MEDS: guaiFENesin 600 MG TABLET PO SCH ×2 (08:11→20:30)
[2018-01-02] MEDS: FAMOTIDINE 20 MG/50 ML 50 ML IV SCH ×2 (08:11→20:31)
[2018-01-02] MEDS: NEUTRA-PHOS 250 MG TABLET PO SCH ×2 (08:11→09:34)
[2018-01-02] MEDS: FERROUS SULFATE 325 MG TABLET PO SCH (08:11)
[2018-01-02] MEDS: ASPIRIN EC 81 MG TABLET PO SCH (08:11)
[2018-01-02] MEDS: INSULIN ASPART 300 UNIT/3 ML PEN SUBQ SCH ×7 (08:12→21:30)
[2018-01-02] MEDS: NYSTATIN CREAM 15 GM TUBE TOP SCH ×2 (08:12→21:30)
[2018-01-02] MEDS: guaiFENesin/CODEINE 5 ML UDC PO PRN (14:44)
--- NOTE | 2018-01-02 16:15 | PROVIDER PROGRESS NOTE ---
Assessment/Plan - Problem List (1) Mass of left upper extremity Assessment/Plan: Possibly a boil or abcsess. Will request I & D by general surgery. (2) Bacteremia due to group B Streptococcus Assessment/Plan: No evidence of endocarditis by Echo done yesterday. Continue iv antibiotics for a 14 day course. (3) Diabetes type 1, uncontrolled Qualifiers: Glycemic state: with hyperglycemia Qualified Code(s): E10.65 - Type 1 diabetes mellitus with hyperglycemia Assessment/Plan: Continue management with DM diet and Insulin. (4) HCAP (healthcare-associated pneumonia) Assessment/Plan: Continue management with iv antibiotc, Mucinex scheduled and prn Robitussin (5) Axillary abscess Assessment/Plan: Continue wound care as recommended and iv Vanco (6) Upper GI bleed Assessment/Plan: No hematemesis and H/H stable Continue empiric H2 tianna (7) Anemia Assessment/Plan: Continue Iron replacement. Foloow daily CBC (9) Electrolyte imbalance Assessment/Plan: Improving. Monitor BMP, Mg and PO4 daily (10) DKA (diabetic ketoacidoses) Qualifiers: Diabetes mellitus type: type 1 Diabetes mellitus complication detail: without coma Qualified Code(s): E10.10 - Type 1 diabetes mellitus with ketoacidosis without coma Assessment/Plan: Resolved (11) HANSA (acute kidney injury) Assessment/Plan: Resolved with iv hydration - Current Meds Current Meds: Current Medications Generic Name Dose Route Start Last Admin Trade Name Freq PRN Reason Stop Dose Admin Acetaminophen 650 mg 12/30/17 16:23 01/02/18 13:12 Tylenol PO 650 mg Q4HR PRN Administration Pain or Fever > 38C (100.4F) Amitriptyline HCl 25 mg 12/31/17 21:00 01/01/18 20:40 Elavil PO 25 mg HS SYLVIA Administration Aspirin 81 mg 12/31/17 09:00 01/02/18 08:11 Ecotrin PO 81 mg DAILY SYLVIA Administration Cilostazol 100 mg 12/31/17 09:00 01/02/18 08:11 Pletal PO 100 mg BID SYLVIA Administration Diltiazem HCl 120 mg 12/31/17 09:00 01/02/18 08:11 Cardizem Cd PO 120 mg DAILY SYLVIA Administration Duloxetine HCl 60 mg 12/31/17 09:00 01/02/18 08:10 Cymbalta PO 60 mg DAILY SYLVIA Administration Ferrous Sulfate 325 mg 12/31/17 11:00 01/02/18 08:11 Feosol PO 325 mg DAILYWM SYLVIA Administration Gabapentin 900 mg 12/31/17 09:00 01/02/18 13:01 Neurontin PO 900 mg TID SYLVIA Administration Guaifenesin 600 mg 01/01/18 17:14 01/02/18 08:11 Mucinex PO 600 mg BID SYLVIA Administration Guaifenesin/Codeine Phosphate 5 ml 01/01/18 17:15 01/02/18 14:44 Robitussin Ac PO 5 ml Q6HR PRN Administration Cough Heparin Sodium (Beef Lung) 30 - 50 unit 12/31/17 02:52 12/31/17 10:41 IVP 50 unit PRN PRN Administration Central Line Protocol (<24 hr) Potassium Chloride/Sodium Chloride 1,000 mls @ 150 mls/hr 12/30/17 17:00 01/02/18 10:08 Normal Saline 0.9% W/20 Meq Kcl IV 150 mls/hr .Q6H40M SYLVIA Administration Famotidine 50 mls @ 100 mls/hr 12/30/17 21:00 01/02/18 10:26 Pepcid 20 Mg/50 Ml IV Infused BID SYLVIA Infusion Piperacillin Sod/Tazobactam 100 mls @ 200 mls/hr 12/30/17 19:00 01/02/18 13:55 Sod 3.375 gm/ Sodium Chloride IV Infused Q6H SYLVIA Infusion Vancomycin HCl 1 gm/ Sodium 250 mls @ 167 mls/hr 12/30/17 22:00 01/02/18 14:35 Chloride IV Infused Q8H SYLVIA Infusion Ibuprofen 600 mg 12/31/17 08:17 01/02/18 09:18 Motrin PO 600 mg Q6HR PRN Administration Pain 1 to 4 Insulin Aspart 15 unit 12/31/17 12:00 01/02/18 11:56 Novolog SUBQ 15 unit TIDWM SYLVIA Administration Insulin Aspart 1 - 9 unit 01/01/18 08:00 01/02/18 11:57 Novolog SUBQ 3 unit 0800,1200,1700,2100 SYLVIA Administration Protocol Insulin Glargine 40 unit 12/31/17 21:00 01/01/18 20:43 Lantus Solostar SUBQ 40 unit QPM SYLVIA Administration Loperamide HCl 2 mg 01/01/18 19:21 01/01/18 20:40 Imodium PO 2 mg QID PRN Administration Diarrhea Lorazepam 0.5 mg 12/31/17 01:54 12/31/17 20:38 Ativan Inj (Vial) IVP 0.5 mg Q2H PRN Administration Anxiety Metoclopramide HCl 10 mg 12/31/17 11:00 01/02/18 16:11 Reglan PO 10 mg ACHS SYLVIA Administration Metoprolol Succinate 25 mg 12/31/17 09:00 01/02/18 08:11 Toprol Xl PO 25 mg BID SYLVIA Administration Multivitamins/Minerals 1 tab 12/31/17 11:00 01/02/18 08:10 Theragran M PO 1 tab DAILYWM SYLVIA Administration Nystatin 1 applic 12/31/17 13:30 01/02/18 08:12 Mycostatin Cream TOP 1 applic BID SYLVIA Administration Saccharomyces Boulardii 250 mg 12/31/17 17:00 01/02/18 08:11 Florastor PO 250 mg BIDWM SYLVIA Administration Sodium Chloride 10 ml 12/30/17 17:00 01/02/18 16:12 Normal Saline Flush 0.9% IVP 10 ml 0100,0900,1700 SYLVIA Administration Sodium Chloride 10 ml 12/30/17 16:23 01/02/18 13:02 Normal Saline Flush 0.9% IVP 10 ml PRN PRN Administration NEEDED PER PROVIDER ORDERS Sodium Chloride 20 ml 12/31/17 02:52 01/02/18 04:52 Normal Saline Flush 0.9% IVP 20 ml PRN PRN Administration After Blood Draw Throat Lozenges 1 lozenge 01/02/18 02:59 01/02/18 14:44 Cepacol MM 1 lozenge Q2HR PRN Administration Throat pain Vancomycin HCl 125 mg 01/01/18 21:00 01/02/18 13:01 Vancocin PO 125 mg QID SYLVIA Administration - Lab Result Fish Bone Diagrams: 01/03/18 04:30 01/03/18 04:30 - Additional Planning My Orders: My Active Orders 01/01/18 17:14 guaiFENesin [Mucinex] 600 mg PO BID 01/01/18 17:15 guaiFENesin/CODEINE [Robitussin AC] 5 ml PO Q6HR PRN 01/01/18 19:21 Loperamide [Imodium] 2 mg PO QID PRN 01/01/18 21:00 Vancomycin [Vancocin] 125 mg PO QID 01/02/18 Consult [General Surgery Consult] [CONS] Routine 01/02/18 02:59 Benzocaine/Menthol [Cepacol] 1 lozenge MM Q2HR PRN 01/03/18 05:00 BMP - BASIC METABOLIC PANEL [CHEM] DAILYLAB CBC - COMP BLD CT W/AUTO DIFF [HEME] DAILYLAB Subjective - Subjective Patient Reports: Resting Comfortably, No Complaints Nursing Reports: Other (Left inner forearm raised area (like a boil or abcsess)) Objective Vital Signs: Vital Signs - 24 hr 01/01/18 01/01/18 01/01/18 17:00 18:00 19:00 Temperature Heart Rate [ 115 H 116 H 117 H Monitoring electrodes] Respiratory 18 20 22 Rate Blood Pressure 98/53 L 108/67 116/67 [Right Brachial artery] O2 Saturation 92 94 92 01/01/18 01/01/18 01/01/18 20:00 21:00 22:00 Temperature 37.0 C Heart Rate [ 114 H 111 H 115 H Monitoring electrodes] Respiratory 22 18 24 Rate Blood Pressure 117/69 123/79 114/75 [Right Brachial artery] O2 Saturation 92 92 90 L 01/01/18 01/02/18 01/02/18 23:00 00:00 01:00 Temperature 37.0 C Heart Rate [ 110 H 114 H 109 H Monitoring electrodes] Respiratory 23 28 H 25 H Rate Blood Pressure 96/60 107/65 117/80 [Right Brachial artery] O2 Saturation 92 94 94 01/02/18 01/02/18 01/02/18 02:00 03:00 04:00 Temperature 36.8 C Heart Rate [ 106 H 106 H 109 H Monitoring electrodes] Respiratory 27 H 24 28 H Rate Blood Pressure 121/85 H 107/71 138/93 H [Right Brachial artery] O2 Saturation 96 95 96 01/02/18 01/02/18 01/02/18 05:00 06:00 07:00 Temperature Heart Rate [ 114 H 115 H 106 H Monitoring electrodes] Respiratory 27 H 27 H 28 H Rate Blood Pressure 126/91 H 137/79 H 124/82 H [Right Brachial artery] O2 Saturation 96 96 94 01/02/18 01/02/18 01/02/18 08:00 09:00 10:00 Temperature 36.4 C L Heart Rate [ 110 H 100 100 Monitoring electrodes] Respiratory 18 16 18 Rate Blood Pressure 125/89 H 113/78 99/76 [Right Brachial artery] O2 Saturation 95 95 95 01/02/18 01/02/18 01/02/18 11:00 12:00 13:00 Temperature 36.4 C L Heart Rate [ 98 104 H 100 Monitoring electrodes] Respiratory 16 20 14 Rate Blood Pressure 112/91 H 107/69 99/59 L [Right Brachial artery] O2 Saturation 95 95 94 01/02/18 01/02/18 14:00 15:00 Temperature Heart Rate [ 101 H 100 Monitoring electrodes] Respiratory 18 16 Rate Blood Pressure 105/71 110/76 [Right Brachial artery] O2 Saturation 93 95 Oxygen O2 Source [Without Activity] Room air O2 Source Room air I&O (Last 24 Hrs): Intake and Output Totals x24h 12/31/17 01/01/18 01/02/18 23:59 23:59 23:59 Intake Total 9245 7927 6310 Output Total 970 406 4798 Balance 9044 7326 5210 General: Alert HEENT: Mucous membr. moist/pink Neck: Supple, No JVD Neuro: Non Focal Cardiovascular: Regular rate Respiratory: No respiratory distress Abdomen: Soft Extremities: Other (toes amputated B, new 2 -3cm round protrusion, L inner arm, below antecubial area, not warm or red, has an overlying scar.) - Results Results: Laboratory Results WBC 8.6 x10^3/uL (4.8-10.8) 01/02/18 04:51 RBC 3.16 10^6/uL (4.20-5.40) L 01/02/18 04:51 Hgb 7.5 g/dL (12.0-16.0) L 01/02/18 04:51 Hct 23.6 % (37.0-47.0) L 01/02/18 04:51 MCV 74.9 fL (81.0-99.0) L 01/02/18 04:51 MCH 23.7 pg (27.0-31.0) L 01/02/18 04:51 MCHC 31.6 g/dL (32.0-36.0) L 01/02/18 04:51 RDW 19.1 % (12.0-15.0) H 01/02/18 04:51 Plt Count 242 10^3/uL (130-450) 01/02/18 04:51 MPV 7.3 fL (7.9-10.8) L 01/02/18 04:51 Neut # (Auto) 6.5 10^3/uL (1.5-6.6) 01/02/18 04:51 Lymph # (Auto) 1.5 10^3/uL (1.5-3.5) 01/02/18 04:51 [place] # (Auto) 0.5 10^3/uL (0.0-1.0) 01/02/18 04:51 Eos # (Auto) 0.1 10^3/uL (0.0-0.7) 01/02/18 04:51 Baso # (Auto) 0.0 10^3/uL (0.0-0.1) 01/02/18 04:51 Absolute Nucleated RBC 0.00 x10^3/uL 01/02/18 04:51 Nucleated RBC % 0.0 /100WBC 01/02/18 04:51 Manual Slide Review Indicated 12/30/17 11:55 Platelet Estimate NORMAL (130-450,000) (NORMAL) 12/31/17 06:12 Platelet Morphology PLATELET CLUMPING (NORMAL) 12/31/17 06:12 RBC Morph Micro Appear NORMAL APPEARANCE (NORMAL) 12/30/17 11:55 VBG pH 7.417 (7.31-7.41) H 01/02/18 04:51 VBG pCO2 24.8 mmHg (41-51) L 12/30/17 21:31 VBG pO2 65.4 mmHg (25-47) H 12/30/17 21:31 VBG HCO3 14.0 mmol/L (23-28) L 12/30/17 21:31 VBG Total CO2 14.7 mmol/L (24-29) L 12/30/17 21:31 VBG O2 Saturation 97.2 % (60-80) H 12/30/17 21:31 VBG Base Excess -9.3 mmol/L (-2 - +2) L 12/30/17 21:31 Ionized Calcium 1.06 mmol/L (1.15-1.33) L 01/02/18 04:51 Sodium 137 mmol/L (135-145) 01/02/18 04:51 Potassium 3.5 mmol/L (3.5-5.0) 01/02/18 04:51 Chloride 105 mmol/L (101-111) 01/02/18 04:51 Carbon Dioxide 26 mmol/L (21-32) 01/02/18 04:51 Anion Gap 6.0 (6-13) 01/02/18 04:51 BUN 7 mg/dL (6-20) 01/02/18 04:51 Creatinine 0.3 mg/dL (0.4-1.0) L 01/02/18 04:51 Estimated GFR (MDRD) 252 (>89) 01/02/18 04:51 Glucose 221 mg/dL (70-100) H 01/02/18 04:51 POC Whole Bld Glucose 212 mg/dL (70 - 100) H 01/02/18 11:55 Lactic Acid 1.1 mmol/L (0.5-2.2) 12/30/17 11:55 Calcium 7.5 mg/dL (8.5-10.3) L 01/02/18 04:51 Phosphorus 2.4 mg/dL (2.5-4.6) L 01/02/18 04:51 Magnesium 2.1 mg/dL (1.7-2.8) 01/01/18 05:16 Albumin 2.1 g/dL (3.2-5.5) L 01/02/18 04:51 Serum HCG, Qual NEGATIVE 12/30/17 11:55 Urine Color YELLOW 12/30/17 13:30 Urine Clarity SL. CLOUDY (CLEAR) 12/30/17 13:30 Urine pH 5.5 PH (5.0-7.5) 12/30/17 13:30 Ur Specific [place] >=1.030 (1.002-1.030) H 12/30/17 13:30 Urine Protein 30 mg/dL (NEGATIVE) H 12/30/17 13:30 Urine Glucose (UA) 250 mg/dL (NEGATIVE) H 12/30/17 13:30 Urine Ketones >=80 mg/dL (NEGATIVE) H 12/30/17 13:30 Urine Occult Blood LARGE (NEGATIVE) H 12/30/17 13:30 Urine Nitrite NEGATIVE (NEGATIVE) 12/30/17 13:30 Urine Bilirubin NEGATIVE (NEGATIVE) 12/30/17 13:30 Urine Urobilinogen 0.2 (NORMAL) E.U./dL (NORMAL) 12/30/17 13:30 Ur Leukocyte Esterase TRACE (NEGATIVE) H 12/30/17 13:30 Urine RBC 11-25 /HPF (0-5) H 12/30/17 13:30 Urine WBC 6-10 /HPF (0-5) H 12/30/17 13:30 Ur Squamous Epith Cells MOD Squamous (<= Few) H 12/30/17 13:30 Urine Bacteria Few /HPF (None Seen) 12/30/17 13:30 Ur Microscopic Review INDICATED 12/30/17 13:30 Urine Culture Comments NOT INDICATED 12/30/17 13:30 Last Dose Date 12/31/17 12/31/17 21:09 Last Dose Time 1600 12/31/17 21:09 Vancomycin Trough 11.6 ug/mL (10.0-20.0) 12/31/17 21:09 Urine Opiates Screen POSITIVE (NEGATIVE) H 12/30/17 13:30 Ur Oxycodone Screen NEGATIVE (NEGATIVE) 12/30/17 13:30 Urine Methadone Screen NEGATIVE (NEGATIVE) 12/30/17 13:30 Ur Propoxyphene Screen NEGATIVE (NEGATIVE) 12/30/17 13:30 Ur Barbiturates Screen NEGATIVE (NEGATIVE) 12/30/17 13:30 Ur Tricyclics Screen NEGATIVE (NEGATIVE) 12/30/17 13:30 Ur Phencyclidine Scrn NEGATIVE (NEGATIVE) 12/30/17 13:30 Ur Amphetamine Screen NEGATIVE (NEGATIVE) 12/30/17 13:30 U Methamphetamines Scrn NEGATIVE (NEGATIVE) 12/30/17 13:30 U Benzodiazepines Scrn NEGATIVE (NEGATIVE) 12/30/17 13:30 Urine Cocaine Screen NEGATIVE (NEGATIVE) 12/30/17 13:30 U Cannabinoids Screen NEGATIVE (NEGATIVE) 12/30/17 13:30 Serum Ketones SMALL (NEGATIVE) H 12/31/17 05:00 Blood Type O POSITIVE 12/30/17 11:55 Antibody Screen NEGATIVE 11/08/18 11:55 - Procedures Procedures: Procedures DETACHMENT AT LEFT 4TH TOE, LOW, OPEN APPROACH (06/30/17) DETACHMENT AT RIGHT 1ST TOE, LOW, OPEN APPROACH (03/14/17) DETACHMENT AT RIGHT 2ND TOE, HIGH, OPEN APPROACH (06/30/17) DETACHMENT AT RIGHT 4TH TOE, HIGH, OPEN APPROACH (06/30/17) INSERT INFUSION DEV IN R INT JUGULAR VEIN, PERC (04/21/16) INSERTION OF INFUSION DEV INTO R SUBCLAV VEIN, PERC APPROACH (03/14/17) INSERTION OF INFUSION DEV INTO SUP VENA CAVA, PERC APPROACH (10/26/17) INSERTION OF INFUSION DEVICE INTO LOWER VEIN, PERC APPROACH (08/13/17) INSERTION OF INFUSION DEVICE INTO R ATRIUM, PERC APPROACH (11/17/17) TRANSFUSE NONAUT RED BLOOD CELLS IN CENTRAL VEIN, PERC (12/01/17) TRANSFUSE NONAUT RED BLOOD CELLS IN PERIPH VEIN, PERC (01/22/17) ULTRASONOGRAPHY OF RIGHT JUGULAR VEINS, GUIDANCE (04/21/16) ABX Reporting Has patient been on IV antibiotics over the past 48 hours?: Yes
--- NOTE | 2018-01-02 17:33 | CONSULTATION NOTE ---
Referring Provider Consult Date: 01/02/18 Chief Complaint - Chief Complaint Chief Complaint: abscess History of Present Illness - History of Present Illness HPI Comment/Other: 37 yo woman admitted with bacteremia and diabetic crisis. Surgery consulted for abscess drainage. She had bilateral axillary abscesses drained at an outside facility recently, but now has a new abscess in the right axilla and left ante cubital fossa. History - Past Medical History Cardiovascular: reports: Hypertension, High cholesterol, Peripheral Vascular Disease, [place] Respiratory: reports: None Neuro: reports: Peripheral neuropathy, Other Endocrine/Autoimmune: reports: Type 1 diabetes GI: reports: Pancreatitis [place] HOOPER: reports: None : reports: None HEENT: reports: None Psych: reports: Depression, Anxiety, Panic attacks Musculoskeletal: reports: Fibromyalgia Derm: reports: None MRSA Hx?: Yes - Past Surgical History General: reports: Cholecystectomy HEENT: reports: Tonsil/Adenoidectomy - Family & Social History Family History: Father: , CAD, CVA/TIA, Hyperlipidemia, Hypertension, MT Social History Notes: The patient is homeless and lives in a tent. 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 The patient has 2 children who live with her stepmother as she has been unable to get her life together enough to be able to help raise them. She has been living on [facility] for the last 4 years prior to that she lived in [place]. She does smoke a few cigarettes a day denies any alcohol use. She does continue to use methamphetamine. - Substance History Use: Uses substance without health or social issues: NONE - POLST Patient has POLST: No POLST Status: Full Code Meds/Allgy - Home Medications Home Medications: Ambulatory Orders Medication Instructions Recorded Confirmed Aspirin [Aspirin EC] 81 mg PO DAILY #30 tablet. 08/30/17 12/30/17 Oxybutynin [Ditropan] 5 mg PO BID #60 tablet 08/30/17 12/30/17 Amitriptyline [Elavil] 25 mg PO HS #20 tablet 10/31/17 12/30/17 Cilostazol [Pletal] 100 mg PO BID #60 tablet 10/31/17 12/30/17 DULoxetine [Cymbalta] 60 mg PO DAILY #30 capsule 10/31/17 12/30/17 Ibuprofen [Motrin] 600 mg PO Q6HR PRN #60 tablet 10/31/17 12/30/17 Insulin Aspart [NovoLOG] 3 - 11 unit SUBQ 10/31/17 12/30/17 0800,1200,1700,2100 #3 pen Insulin Aspart [NovoLOG] 15 unit SUBQ TIDWM #3 pen 10/31/17 12/30/17 Metoclopramide [Reglan] 10 mg PO ACHS #60 tablet 10/31/17 12/30/17 Metoprolol Succinate [Toprol Xl] 25 mg PO BID #60 tablet 10/31/17 12/30/17 Nystatin Cream [Mycostatin Cream] 15 gm TOP BID #1 tube 10/31/17 12/30/17 cloNIDine [Catapres] 0.1 mg PO BID #60 tablet 10/31/17 12/30/17 diltiaZEM CD [Cardizem Cd] 120 mg PO DAILY #30 capsule 10/31/17 12/30/17 traMADol [Ultram] 50 mg PO Q6H PRN #10 tablet 10/31/17 12/30/17 Gabapentin [Neurontin] 900 mg PO TID #90 capsule 11/11/17 12/30/17 Insulin Glargine [Lantus Solostar] 40 unit SUBQ QPM #3 pen 11/23/17 12/30/17 - Allergies Allergies/Adverse Reactions: Allergies Allergy/AdvReac Type Severity Reaction Status Date / Time codeine Allergy Hives Verified 12/10/17 07:36 hydrocodone Allergy Hives Verified 12/10/17 07:36 morphine Allergy Itching Verified 12/10/17 07:36 milk AdvReac Cramps Verified 12/10/17 07:36 nitrofurantoin AdvReac Headache Verified 12/10/17 07:36 [From Macrobid] PAPER TAPE AdvReac Unknown Uncoded 11/10/17 10:40 Exam - Vital Signs Vital Signs: Vital Signs x48h Temp Pulse Resp BP Pulse Ox 01/02/18 16:00 100 20 109/88 H 95 01/02/18 15:00 100 16 110/76 95 01/02/18 14:00 101 H 18 105/71 93 01/02/18 13:00 100 14 99/59 L 94 01/02/18 12:00 36.4 C L 104 H 20 107/69 95 01/02/18 11:00 98 16 112/91 H 95 01/02/18 10:00 100 18 99/76 95 - Physical Exam General Appearance: positive: No acute distress Eyes Bilateral: positive: Normal inspection ENT: positive: ENT inspection nml Neck: positive: Nml inspection Respiratory: positive: Chest non-tender Abdomen: positive: Non-tender Back: positive: Nml inspection Skin: positive: Color nml Extremities: positive: Non-tender Neurologic/Psychiatric: positive: Oriented x3 Conclusion/Plan - Diagnosis Diagnosis: Abscess * 2 - Plan Plan: She has two very small abscesses, approx. 1-2 cm. These will need to be drained. Unfortunately, the pt's body is covered in dirt and food residue and is overall not in the best condition for a procedure. As she has no signs of toxicity from these very small lesions, we will let her clean herself exte nsively overnight and drain them in the morning. - Lab Results Fish Bones: 01/02/18 04:51 01/02/18 04:51
[2018-01-02] MEDS: LORazepam 2 MG/ML VIAL IVP PRN ×2 (20:26→23:57)
[2018-01-02] MEDS: AMITRIPTYLINE 25 MG TABLET PO SCH (20:31)
[2018-01-02] MEDS: INSULIN GLARGINE 300 UNIT/3 ML PEN SUBQ SCH (21:31)
[2018-01-02] MEDS: KETOROLAC 30 MG/ML VIAL IVP PRN (21:43)
[2018-01-02] MEDS: LIDOCAINE OINTMENT 5% 35.44 GM TUBE TOP SCH (21:45)
[2018-01-02] MEDS: HALOPERIDOL 5 MG/ML VIAL IVP PRN (22:58)
[2018-01-03] MEDS: PIPERACILLIN/TAZOBACTAM 3.375 GM in SODIUM CHLORIDE 0.9% MINIBAG 100 ML IV SCH ×3 (00:51→13:49)
[2018-01-03] MEDS: NS W/20 MEQ KCL 1,000 ML IV SCH ×2 (01:49→10:00)
[2018-01-03] MEDS: guaiFENesin/CODEINE 5 ML UDC PO PRN ×2 (02:25→21:53)
[2018-01-03] MEDS: BENZOCAINE/MENTHOL LOZENGE MM PRN ×4 (02:25→20:30)
[2018-01-03] MEDS: IBUPROFEN 600 MG TABLET PO PRN ×3 (02:40→16:42)
[2018-01-03] MEDS: LORazepam 2 MG/ML VIAL IVP PRN ×4 (03:43→16:43)
[2018-01-03] MEDS: HALOPERIDOL 5 MG/ML VIAL IVP PRN ×2 (04:25→20:58)
[2018-01-03] MEDS: SODIUM CHLORIDE FLUSH 0.9% 10 ML SYRINGE IVP PRN ×2 (04:26)
[2018-01-03 05:23] LABS: BASOPHILS % (AUTO) 0.6 %; EOSINOPHILS # (AUTO) 0.2 10^3/uL (0.0-0.7); EOSINOPHILS % (AUTO) 2.6 %; HGB - HEMOGLOBIN 7.2 g/dL (12.0-16.0); LYMPHOCYTES % (AUTO) 28.6 %; MEAN CORPUSCULAR HEMOGLOBIN 23.9 pg (27.0-31.0); MEAN CORPUSCULAR HGB CONC 31.6 g/dL (32.0-36.0); MEAN CORPUSCULAR VOLUME 75.7 fL (81.0-99.0); MEAN PLATELET VOLUME 7.4 fL (7.9-10.8); MONOCYTES # (AUTO) 0.5 10^3/uL (0.0-1.0); MONOCYTES % (AUTO) 7.5 %; NEUTROPHILS # (AUTO) 4.2 10^3/uL (1.5-6.6); NEUTROPHILS % (AUTO) 60.7 %; PLT - PLATELET COUNT 297 10^3/uL (130-450); RED BLOOD COUNT 3.01 10^6/uL (4.20-5.40); RED CELL DISTRIBUTION WIDTH 18.6 % (12.0-15.0); WHITE BLOOD COUNT 6.9 x10^3/uL (4.8-10.8)
[2018-01-03 05:30] LABS: CALCIUM 7.5 mg/dL (8.5-10.3); CREATININE 0.5 mg/dL (0.4-1.0)
[2018-01-03] MEDS: VANCOMYCIN INJ 1 GM in SODIUM CHLORIDE 0.9% 250 ML IV SCH ×3 (05:31→21:53)
[2018-01-03] MEDS: GABAPENTIN 300 MG CAPSULE PO SCH ×3 (05:50→21:53)
[2018-01-03 05:59] LABS: MAGNESIUM 1.6 mg/dL (1.7-2.8)
[2018-01-03] MEDS: METOCLOPRAMIDE 10 MG TABLET PO SCH ×4 (06:32→20:30)
[2018-01-03] MEDS: KETOROLAC 30 MG/ML VIAL IVP PRN ×3 (06:37→19:23)
[2018-01-03] MEDS: ACETAMINOPHEN 325 MG TABLET PO PRN (07:24)
[2018-01-03] MEDS: MULTIVITAMIN W/MINERALS TABLET PO SCH (08:26)
[2018-01-03] MEDS: SACCHAROMYCES BOULARDII 250 MG CAPSULE PO SCH ×2 (08:26→17:28)
[2018-01-03] MEDS: FERROUS SULFATE 325 MG TABLET PO SCH (08:27)
[2018-01-03] MEDS: INSULIN ASPART 300 UNIT/3 ML PEN SUBQ SCH ×7 (08:32→20:37)
[2018-01-03] MEDS: SODIUM CHLORIDE FLUSH 0.9% 10 ML SYRINGE IVP SCH ×4 (09:00→20:59)
[2018-01-03] MEDS: ASPIRIN EC 81 MG TABLET PO SCH (09:00)
[2018-01-03] MEDS: FAMOTIDINE 20 MG/50 ML 50 ML IV SCH ×2 (09:00→20:31)
[2018-01-03] MEDS: DULoxetine 30 MG CAPSULE PO SCH (09:00)
[2018-01-03] MEDS ORDERED: SODIUM CHLORIDE 0.9% 500 ML IV ONE (09:05)
[2018-01-03] MEDS: guaiFENesin 600 MG TABLET PO SCH ×2 (09:15→20:30)
[2018-01-03] MEDS: diltiaZEM CD 120 MG CAPSULE PO SCH (09:15)
[2018-01-03] MEDS: CILOSTAZOL 100 MG TABLET PO SCH ×2 (09:15→20:30)
[2018-01-03] MEDS: METOPROLOL SUCCINATE 25 MG TABLET PO SCH ×2 (09:15→20:30)
[2018-01-03] MEDS: MAGNESIUM OXIDE 400 MG TABLET PO SCH ×2 (09:16→15:25)
[2018-01-03] MEDS: SODIUM CHLORIDE 0.9% 500 ML IV PRN ×2 (09:33→10:23)
[2018-01-03] MEDS: VANCOMYCIN 125 MG CAPSULE PO SCH ×4 (10:31→20:30)
[2018-01-03] MEDS: LIDOCAINE OINTMENT 5% 35.44 GM TUBE TOP SCH ×4 (11:00→20:37)
[2018-01-03] MEDS ORDERED: LIDOCAINE-MPF 1% 5 ML VIAL ONE ×2 (11:18→11:27)
[2018-01-03] MEDS ORDERED: LIDOCAINE 2% ABBOJECT 100 MG/5 ML SYRINGE ONE (11:26)
[2018-01-03] MEDS ORDERED: MORPHINE 2 MG/ML CARPUJECT ONE (11:36)
[2018-01-03] MEDS ORDERED: MORPHINE 10 MG/ML VIAL IVP ONE (12:01)
[2018-01-03] MEDS ORDERED: LIDOCAINE 1% 2 ML VIAL SUBQ ONE (12:02)
--- NOTE | 2018-01-03 12:06 | PROCEDURE REPORT ---
Hospitalist Procedure Note - Procedure Note Procedure Note: Dx - right axillary and left elbow abscesses. Procedure - drainage of abscesses. Detail - Timeout was performed after obtaining consent and prepping both sites. 10 ml of lidocaine was infused into the subcutaneous space around both abscesses. They were opened sharply over the area of fluctuance for 1 cm. 5-10 ml of purulent fluid was obtained from both. They were irrigated, packed, and dressed. Complications - none. EBL - 5 ml. Plan - remove dressings and packing in 2 days. Replace packing as indicated and resume local wound care.
[2018-01-03] MEDS: NYSTATIN CREAM 15 GM TUBE TOP SCH ×2 (12:15→20:36)
[2018-01-03] MEDS ORDERED: WITCH HAZEL/GLYCERIN 1 EACH MED..PAD TOP PRN (13:21)
--- NOTE | 2018-01-03 13:52 | PROVIDER PROGRESS NOTE ---
Assessment/Plan - Problem List (1) Mass of left upper extremity Assessment/Plan: This is another abcsess, per general surgeon, [facility] I&D's it today. New fluid was NOT sent for culture, by surgeon Continue management with iv antibiotics. (2) Bacteremia due to group B Streptococcus Assessment/Plan: Continue iv antibiotics. Will plan a 14 day total course. If she can be transferred to a SNF, iv antibiotics and wound care will be the plan, this was discussed with [facility] [employer] today at Care Conference. (3) Diabetes type 1, uncontrolled Qualifiers: Glycemic state: with hyperglycemia Qualified Code(s): E10.65 - Type 1 diabetes mellitus with hyperglycemia Assessment/Plan: Continue carb-controlled diet, fingerstick glu checks and Lantus plus ss Aspart Insulin coverage. (4) HCAP (healthcare-associated pneumonia) Assessment/Plan: Pt still has a cough. Continue Mucinex. Continue iv antibiotics. Will broaden the coverage from Zosyn, change to Cefipime and Levaquin for HCAP. Continue iv Vanco as well. (5) Axillary abscess Assessment/Plan: Continue wound dressings and iv Vanco. (6) Upper GI bleed Assessment/Plan: No further hematemesis, since she was found obtunded on scene. Empiric treatment with H@ blockers continue. (7) Anemia Assessment/Plan: Continue Iron replacement. Monitor CBC daily. (8) Diarrhea due to drug Assessment/Plan: Improved with empiric po Vanco and Imodium. (10) DKA (diabetic ketoacidoses) Qualifiers: Diabetes mellitus type: type 1 Diabetes mellitus complication detail: without coma Qualified Code(s): E10.10 - Type 1 diabetes mellitus with ketoacidosis without coma Assessment/Plan: Resolved (11) HANSA (acute kidney injury) Assessment/Plan: Resolved - Current Meds Current Meds: Current Medications Generic Name Dose Route Start Last Admin Trade Name Freq PRN Reason Stop Dose Admin Acetaminophen 650 mg 12/30/17 16:23 01/03/18 07:24 Tylenol PO 650 mg Q4HR PRN Administration Pain or Fever > 38C (100.4F) Amitriptyline HCl 25 mg 12/31/17 21:00 01/02/18 20:31 Elavil PO 25 mg HS SYLVIA Administration Aspirin 81 mg 12/31/17 09:00 01/03/18 09:00 Ecotrin PO 81 mg DAILY SYLVIA Administration Cilostazol 100 mg 12/31/17 09:00 01/03/18 09:15 Pletal PO 100 mg BID SYLVIA Administration Diltiazem HCl 120 mg 12/31/17 09:00 01/03/18 09:15 Cardizem Cd PO 120 mg DAILY SYLVIA Administration Duloxetine HCl 60 mg 12/31/17 09:00 01/03/18 09:00 Cymbalta PO 60 mg DAILY SYLVIA Administration Ferrous Sulfate 325 mg 12/31/17 11:00 01/03/18 08:27 Feosol PO 325 mg DAILYWM SYVLIA Administration Gabapentin 900 mg 12/31/17 09:00 01/03/18 13:47 Neurontin PO 900 mg TID SYLVIA Administration Guaifenesin 600 mg 01/01/18 17:14 01/03/18 09:15 Mucinex PO 600 mg BID SYLVIA Administration Guaifenesin/Codeine Phosphate 5 ml 01/01/18 17:15 01/03/18 02:25 Robitussin Ac PO 5 ml Q6HR PRN Administration Cough Haloperidol 1 mg 01/02/18 22:14 01/03/18 04:25 Haldol Inj IVP 1 mg Q6H PRN Administration Agitation Heparin Sodium (Beef Lung) 30 - 50 unit 12/31/17 02:52 01/03/18 09:27 IVP 30 unit PRN PRN Administration Central Line Protocol (<24 hr) Potassium Chloride/Sodium Chloride 1,000 mls @ 150 mls/hr 12/30/17 17:00 01/03/18 10:00 Normal Saline 0.9% W/20 Meq Kcl IV 150 mls/hr .Q6H40M SYLVIA Administration Famotidine 50 mls @ 100 mls/hr 12/30/17 21:00 01/03/18 09:00 Pepcid 20 Mg/50 Ml IV 100 mls/hr BID SYLVIA Administration Piperacillin Sod/Tazobactam 100 mls @ 200 mls/hr 12/30/17 19:00 01/03/18 13:49 Sod 3.375 gm/ Sodium Chloride IV 200 mls/hr Q6H SYLVIA Administration Vancomycin HCl 1 gm/ Sodium 250 mls @ 167 mls/hr 12/30/17 22:00 01/03/18 07:15 Chloride IV Infused Q8H SYLVIA Infusion Sodium Chloride 500 mls @ 20 mls/hr 01/03/18 08:01 01/03/18 10:23 Normal Saline 0.9% IV 20 mls/hr Q24H PRN Administration TKO RATE Ibuprofen 600 mg 12/31/17 08:17 01/03/18 10:31 Motrin PO 600 mg Q6HR PRN Administration Pain 1 to 4 Insulin Aspart 15 unit 12/31/17 12:00 01/03/18 12:07 Novolog SUBQ 15 unit TIDWM SYLVIA Administration Insulin Aspart 1 - 9 unit 01/01/18 08:00 01/03/18 12:08 Novolog SUBQ 9 unit 0800,1200,1700,2100 SYLVIA Administration Protocol Insulin Glargine 40 unit 12/31/17 21:00 01/02/18 21:31 Lantus Solostar SUBQ 40 unit QPM SYLVIA Administration Ketorolac Tromethamine 30 mg 01/02/18 21:03 01/03/18 11:24 Toradol Inj (30mg) IVP 01/07/18 21:02 30 mg Q6HR PRN Administration PAIN Lidocaine 1 applic 01/02/18 22:00 01/03/18 11:00 Xylocaine Ointment 5% TOP 1 applic QID SYLVIA Administration Loperamide HCl 2 mg 01/01/18 19:21 01/01/18 20:40 Imodium PO 2 mg QID PRN Administration Diarrhea Lorazepam 0.5 mg 12/31/17 01:54 01/03/18 09:19 Ativan Inj (Vial) IVP 0.5 mg Q2H PRN Administration Anxiety Magnesium Oxide 400 mg 01/03/18 09:00 01/03/18 09:16 Mag Ox PO 01/03/18 15:01 400 mg Q6H SYLVIA Administration Protocol Metoclopramide HCl 10 mg 12/31/17 11:00 01/03/18 12:00 Reglan PO 10 mg ACHS SYLVIA Administration Metoprolol Succinate 25 mg 12/31/17 09:00 01/03/18 09:15 Toprol Xl PO 25 mg BID SYLVIA Administration Multivitamins/Minerals 1 tab 12/31/17 11:00 01/03/18 08:26 Theragran M PO 1 tab DAILYWM SYLVIA Administration Nystatin 1 applic 12/31/17 13:30 01/03/18 12:15 Mycostatin Cream TOP Not Given BID SYLVIA Saccharomyces Boulardii 250 mg 12/31/17 17:00 01/03/18 08:26 Florastor PO 250 mg BIDWM SYLVIA Administration Sodium Chloride 10 ml 12/30/17 17:00 01/03/18 09:00 Normal Saline Flush 0.9% IVP 10 ml 0100,0900,1700 SYLVIA Administration Sodium Chloride 10 ml 12/30/17 16:23 01/03/18 00:00 Normal Saline Flush 0.9% IVP 10 ml PRN PRN Administration NEEDED PER PROVIDER ORDERS Sodium Chloride 20 ml 12/31/17 02:52 01/03/18 04:26 Normal Saline Flush 0.9% IVP 20 ml PRN PRN Administration After Blood Draw Throat Lozenges 1 lozenge 01/02/18 02:59 01/03/18 04:26 Cepacol MM 1 lozenge Q2HR PRN Administration Throat pain Vancomycin HCl 125 mg 01/01/18 21:00 01/03/18 13:47 Vancocin PO 125 mg QID SYLVIA Administration - Lab Result Fish Bone Diagrams: 01/03/18 04:30 01/03/18 04:30 - Additional Planning My Orders: My Active Orders 01/03/18 08:01 Sodium Chloride 0.9% [Normal Saline 0.9%] 500 ml IV Q24H 01/03/18 08:05 Heparin Flush 30 - 50 unit IVP PRN PRN 01/03/18 09:00 Magnesium Oxide [Mag Ox] 400 mg PO Q6H 01/03/18 13:21 Witch Shantel/Glycerin [Tucks] 1 each TOP PRN PRN 01/04/18 05:00 MAGNESIUM [CHEM] DAILYLAB PHOSPHORUS [CHEM] DAILYLAB 01/05/18 05:00 MAGNESIUM [CHEM] DAILYLAB PHOSPHORUS [CHEM] DAILYLAB 01/06/18 05:00 MAGNESIUM [CHEM] DAILYLAB PHOSPHORUS [CHEM] DAILYLAB Subjective - Subjective Patient Reports: No Complaints Objective Vital Signs: Vital Signs - 24 hr 01/02/18 01/02/18 01/02/18 14:00 15:00 16:00 Temperature Heart Rate [ 101 H 100 100 Monitoring electrodes] Respiratory 18 16 20 Rate Blood Pressure 105/71 110/76 109/88 H [Right Brachial artery] O2 Saturation 93 95 95 01/02/18 01/02/18 01/02/18 17:00 18:00 19:00 Temperature Heart Rate [ 105 H 105 H 113 H Monitoring electrodes] Respiratory 22 18 22 Rate Blood Pressure 126/90 H 133/85 H 139/86 H [Right Brachial artery] O2 Saturation 95 94 93 01/02/18 01/02/18 01/02/18 20:00 21:00 22:00 Temperature 36.9 C Heart Rate [ 101 H 103 H 101 H Monitoring electrodes] Respiratory 16 17 Rate Blood Pressure 130/89 H 147/98 H 148/95 H [Right Brachial artery] O2 Saturation 98 95 01/02/18 01/03/18 01/03/18 23:00 00:00 01:00 Temperature 37.2 C Heart Rate [ 102 H 104 H 98 Monitoring electrodes] Respiratory 20 20 24 Rate Blood Pressure 135/95 H 137/91 H 122/83 H [Right Brachial artery] O2 Saturation 94 01/03/18 01/03/18 01/03/18 02:00 03:00 04:00 Temperature 37.3 C Heart Rate [ 99 97 98 Monitoring electrodes] Respiratory 19 21 11 L Rate Blood Pressure 132/93 H 120/79 124/88 H [Right Brachial artery] O2 Saturation 01/03/18 01/03/18 01/03/18 05:00 06:00 07:00 Temperature Heart Rate [ 99 91 91 Monitoring electrodes] Respiratory 20 20 Rate Blood Pressure 141/94 H 134/98 H 131/91 H [Right Brachial artery] O2 Saturation 01/03/18 01/03/18 01/03/18 08:00 09:00 11:00 Temperature 98.0 C H Heart Rate [ 98 99 Monitoring electrodes] Respiratory 22 18 Rate Blood Pressure 137/93 H 126/113 H 127/89 H [Right Brachial artery] O2 Saturation 95 01/03/18 01/03/18 12:00 13:00 Temperature 37.4 C Heart Rate [ 109 H 103 H Monitoring electrodes] Respiratory 22 24 Rate Blood Pressure 136/99 H 141/92 H [Right Brachial artery] O2 Saturation Oxygen O2 Source [Without Activity] Room air O2 Source Room air I&O (Last 24 Hrs): Intake and Output Totals x24h 01/01/18 01/02/18 01/03/18 23:59 23:59 23:59 Intake Total 7973 6609 2727.667 Output Total 601 2000 Balance 5035 6177 7987.665 General: Alert HEENT: Mucous membr. moist/pink Neck: Supple Neuro: Non Focal Cardiovascular: Regular rate Respiratory: No respiratory distress Abdomen: Soft Extremities: Other (R axilla more swollen (per surgeon's eval), L forearm had I&D, several toes amputated) - Results Results: Laboratory Results WBC 6.9 x10^3/uL (4.8-10.8) 01/03/18 04:30 RBC 3.01 10^6/uL (4.20-5.40) L 01/03/18 04:30 Hgb 7.2 g/dL (12.0-16.0) L 01/03/18 04:30 Hct 22.8 % (37.0-47.0) L 01/03/18 04:30 MCV 75.7 fL (81.0-99.0) L 01/03/18 04:30 MCH 23.9 pg (27.0-31.0) L 01/03/18 04:30 MCHC 31.6 g/dL (32.0-36.0) L 01/03/18 04:30 RDW 18.6 % (12.0-15.0) H 01/03/18 04:30 Plt Count 297 10^3/uL (130-450) 01/03/18 04:30 MPV 7.4 fL (7.9-10.8) L 01/03/18 04:30 Neut # (Auto) 4.2 10^3/uL (1.5-6.6) 01/03/18 04:30 Lymph # (Auto) 2.0 10^3/uL (1.5-3.5) 01/03/18 04:30 Becker # (Auto) 0.5 10^3/uL (0.0-1.0) 01/03/18 04:30 Eos # (Auto) 0.2 10^3/uL (0.0-0.7) 01/03/18 04:30 Baso # (Auto) 0.0 10^3/uL (0.0-0.1) 01/03/18 04:30 Absolute Nucleated RBC 0.00 x10^3/uL 01/03/18 04:30 Nucleated RBC % 0.0 /100WBC 01/03/18 04:30 Manual Slide Review Indicated 12/30/17 11:55 Platelet Estimate NORMAL (130-450,000) (NORMAL) 12/31/17 06:12 Platelet Morphology PLATELET CLUMPING (NORMAL) 12/31/17 06:12 RBC Morph Micro Appear NORMAL APPEARANCE (NORMAL) 12/30/17 11:55 VBG pH 7.417 (7.31-7.41) H 01/02/18 04:51 VBG pCO2 24.8 mmHg (41-51) L 12/30/17 21:31 VBG pO2 65.4 mmHg (25-47) H 12/30/17 21:31 VBG HCO3 14.0 mmol/L (23-28) L 12/30/17 21:31 VBG Total CO2 14.7 mmol/L (24-29) L 12/30/17 21:31 VBG O2 Saturation 97.2 % (60-80) H 12/30/17 21:31 VBG Base Excess -9.3 mmol/L (-2 - +2) L 12/30/17 21:31 Ionized Calcium 1.06 mmol/L (1.15-1.33) L 01/02/18 04:51 Sodium 138 mmol/L (135-145) 01/03/18 04:30 Potassium 3.7 mmol/L (3.5-5.0) 01/03/18 04:30 Chloride 103 mmol/L (101-111) 01/03/18 04:30 Carbon Dioxide 28 mmol/L (21-32) 01/03/18 04:30 Anion Gap 7.0 (6-13) 01/03/18 04:30 BUN 9 mg/dL (6-20) 01/03/18 04:30 Creatinine 0.5 mg/dL (0.4-1.0) 01/03/18 04:30 Estimated GFR (MDRD) 140 (>89) 01/03/18 04:30 Glucose 282 mg/dL (70-100) H 01/03/18 04:30 POC Whole Bld Glucose 221 mg/dL (70 - 100) H 01/03/18 08:22 Lactic Acid 1.1 mmol/L (0.5-2.2) 12/30/17 11:55 Calcium 7.5 mg/dL (8.5-10.3) L 01/03/18 04:30 Phosphorus 4.0 mg/dL (2.5-4.6) 01/03/18 04:30 Magnesium 1.6 mg/dL (1.7-2.8) L 01/03/18 04:30 Albumin 2.0 g/dL (3.2-5.5) L 01/03/18 04:30 Serum HCG, Qual NEGATIVE 12/30/17 11:55 Urine Color YELLOW 12/30/17 13:30 Urine Clarity SL. CLOUDY (CLEAR) 12/30/17 13:30 Urine pH 5.5 PH (5.0-7.5) 12/30/17 13:30 Ur Specific [place] >=1.030 (1.002-1.030) H 12/30/17 13:30 Urine Protein 30 mg/dL (NEGATIVE) H 12/30/17 13:30 Urine Glucose (UA) 250 mg/dL (NEGATIVE) H 12/30/17 13:30 Urine Ketones >=80 mg/dL (NEGATIVE) H 12/30/17 13:30 Urine Occult Blood LARGE (NEGATIVE) H 12/30/17 13:30 Urine Nitrite NEGATIVE (NEGATIVE) 12/30/17 13:30 Urine Bilirubin NEGATIVE (NEGATIVE) 12/30/17 13:30 Urine Urobilinogen 0.2 (NORMAL) E.U./dL (NORMAL) 12/30/17 13:30 Ur Leukocyte Esterase TRACE (NEGATIVE) H 12/30/17 13:30 Urine RBC 11-25 /HPF (0-5) H 12/30/17 13:30 Urine WBC 6-10 /HPF (0-5) H 12/30/17 13:30 Ur Squamous Epith Cells MOD Squamous (<= Few) H 12/30/17 13:30 Urine Bacteria Few /HPF (None Seen) 12/30/17 13:30 Ur Microscopic Review INDICATED 12/30/17 13:30 Urine Culture Comments NOT INDICATED 12/30/17 13:30 Last Dose Date 12/31/17 12/31/17 21:09 Last Dose Time 1600 12/31/17 21:09 Vancomycin Trough 11.6 ug/mL (10.0-20.0) 12/31/17 21:09 Urine Opiates Screen POSITIVE (NEGATIVE) H 12/30/17 13:30 Ur Oxycodone Screen NEGATIVE (NEGATIVE) 12/30/17 13:30 Urine Methadone Screen NEGATIVE (NEGATIVE) 12/30/17 13:30 Ur Propoxyphene Screen NEGATIVE (NEGATIVE) 12/30/17 13:30 Ur Barbiturates Screen NEGATIVE (NEGATIVE) 12/30/17 13:30 Ur Tricyclics Screen NEGATIVE (NEGATIVE) 12/30/17 13:30 Ur Phencyclidine Scrn NEGATIVE (NEGATIVE) 12/30/17 13:30 Ur Amphetamine Screen NEGATIVE (NEGATIVE) 12/30/17 13:30 U Methamphetamines Scrn NEGATIVE (NEGATIVE) 12/30/17 13:30 U Benzodiazepines Scrn NEGATIVE (NEGATIVE) 12/30/17 13:30 Urine Cocaine Screen NEGATIVE (NEGATIVE) 12/30/17 13:30 U Cannabinoids Screen NEGATIVE (NEGATIVE) 12/30/17 13:30 Serum Ketones SMALL (NEGATIVE) H 12/31/17 05:00 Blood Type O POSITIVE 12/30/17 11:55 Antibody Screen NEGATIVE 12/30/17 11:55 - Procedures Procedures: Procedures DETACHMENT AT LEFT 4TH TOE, LOW, OPEN APPROACH (06/30/17) DETACHMENT AT RIGHT 1ST TOE, LOW, OPEN APPROACH (03/14/17) DETACHMENT AT RIGHT 2ND TOE, HIGH, OPEN APPROACH (06/30/17) DETACHMENT AT RIGHT 4TH TOE, HIGH, OPEN APPROACH (06/30/17) INSERT INFUSION DEV IN R INT JUGULAR VEIN, PERC (04/21/16) INSERTION OF INFUSION DEV INTO R SUBCLAV VEIN, PERC APPROACH (03/14/17) INSERTION OF INFUSION DEV INTO SUP VENA CAVA, PERC APPROACH (10/26/17) INSERTION OF INFUSION DEVICE INTO LOWER VEIN, PERC APPROACH (08/13/17) INSERTION OF INFUSION DEVICE INTO R ATRIUM, PERC APPROACH (11/17/17) TRANSFUSE NONAUT RED BLOOD CELLS IN CENTRAL VEIN, PERC (12/01/17) TRANSFUSE NONAUT RED BLOOD CELLS IN PERIPH VEIN, PERC (01/22/17) ULTRASONOGRAPHY OF RIGHT JUGULAR VEINS, GUIDANCE (04/21/16)
[2018-01-03] MEDS ORDERED: INSULIN ASPART 300 UNIT/3 ML PEN SUBQ SCH (17:00)
[2018-01-03] MEDS: levoFLOXacin 500 MG/100 ML 500 MG/100 ML BAG IV SCH (17:00)
[2018-01-03] MEDS ORDERED: traMADol 50 MG TABLET PO PRN (17:21)
[2018-01-03] MEDS ORDERED: HYDROCORTISONE 25 MG SUPPOSITORY PR PRN (18:13)
[2018-01-03] MEDS: AMITRIPTYLINE 25 MG TABLET PO SCH (20:30)
[2018-01-03] MEDS: INSULIN GLARGINE 300 UNIT/3 ML PEN SUBQ SCH (20:37)
[2018-01-03] MEDS ORDERED: CEFEPIME 2 GM in SODIUM CHLORIDE 0.9% MINIBAG 100 ML IV SCH (21:00)
[2018-01-04] MEDS: ACETAMINOPHEN 325 MG TABLET PO PRN (00:06)
[2018-01-04] MEDS: BENZOCAINE/MENTHOL LOZENGE MM PRN ×5 (00:06→19:00)
[2018-01-04] MEDS: IBUPROFEN 600 MG TABLET PO PRN ×3 (00:06→17:13)
[2018-01-04] MEDS: SODIUM CHLORIDE FLUSH 0.9% 10 ML SYRINGE IVP PRN ×4 (04:38→20:31)
[2018-01-04 05:17] LABS: MAGNESIUM 1.7 mg/dL (1.7-2.8); PHOSPHORUS 5.2 mg/dL (2.5-4.6)
[2018-01-04] MEDS: guaiFENesin/CODEINE 5 ML UDC PO PRN ×3 (06:04→23:07)
[2018-01-04] MEDS: GABAPENTIN 300 MG CAPSULE PO SCH ×3 (06:04→20:41)
[2018-01-04] MEDS: VANCOMYCIN INJ 1 GM in SODIUM CHLORIDE 0.9% 250 ML IV SCH ×2 (06:05→14:36)
[2018-01-04] MEDS: METOCLOPRAMIDE 10 MG TABLET PO SCH ×4 (06:11→20:30)
[2018-01-04] MEDS: FERROUS SULFATE 325 MG TABLET PO SCH (08:00)
[2018-01-04] MEDS: MULTIVITAMIN W/MINERALS TABLET PO SCH (08:05)
[2018-01-04] MEDS: SACCHAROMYCES BOULARDII 250 MG CAPSULE PO SCH ×2 (08:05→17:14)
[2018-01-04] MEDS: FAMOTIDINE 20 MG/50 ML 50 ML IV SCH ×2 (08:32→20:30)
[2018-01-04] MEDS: guaiFENesin 600 MG TABLET PO SCH ×2 (08:36→20:30)
[2018-01-04] MEDS: DULoxetine 30 MG CAPSULE PO SCH (08:37)
[2018-01-04] MEDS: VANCOMYCIN 125 MG CAPSULE PO SCH ×4 (08:37→20:30)
[2018-01-04] MEDS: METOPROLOL SUCCINATE 25 MG TABLET PO SCH ×2 (08:38→20:30)
[2018-01-04] MEDS: CILOSTAZOL 100 MG TABLET PO SCH ×2 (08:38→20:30)
[2018-01-04] MEDS: diltiaZEM CD 120 MG CAPSULE PO SCH (08:38)
[2018-01-04] MEDS: ASPIRIN EC 81 MG TABLET PO SCH (08:38)
[2018-01-04] MEDS: ASCORBIC ACID CHEW 500 MG TABLET PO SCH (08:46)
[2018-01-04] MEDS: INSULIN ASPART 300 UNIT/3 ML PEN SUBQ SCH ×7 (08:49→20:38)
[2018-01-04] MEDS ORDERED: INSULIN GLARGINE 300 UNIT/3 ML PEN SUBQ SCH (09:00)
[2018-01-04] MEDS: LIDOCAINE OINTMENT 5% 35.44 GM TUBE TOP SCH ×4 (09:09→20:39)
[2018-01-04] MEDS: SODIUM CHLORIDE FLUSH 0.9% 10 ML SYRINGE IVP SCH ×3 (09:10→20:41)
[2018-01-04] MEDS: NYSTATIN CREAM 15 GM TUBE TOP SCH ×2 (09:10→20:39)
[2018-01-04] MEDS: LORazepam 2 MG/ML VIAL IVP PRN ×2 (10:16→20:31)
[2018-01-04] MEDS: NICOTINE 14 MG PATCH TOP SCH (10:41)
[2018-01-04] MEDS: SODIUM CHLORIDE 0.9% 500 ML IV SCH (13:00)
[2018-01-04] MEDS ORDERED: SODIUM CHLORIDE 0.9% 500 ML IV ONE (13:09)
[2018-01-04] MEDS: KETOROLAC 30 MG/ML VIAL IVP PRN (13:25)
--- NOTE | 2018-01-04 16:07 | PROVIDER PROGRESS NOTE ---
Assessment/Plan - Problem List (1) Bacteremia Assessment/Plan: Patient has bacteremia with 2 organisms group B streptococcus and methicillin- resistant staph aureus. Both organisms are susceptible to vancomycin IV. Both organisms are also susceptible to p.o. Levaquin and p.o. Bactrim. The patient has been on IV vancomycin for 5 days and appears to be improving. The source of the patient's bacteremia appears to be an bilateral abscesses in her axilla. The patient's wound culture from her right and left axilla is also growing group B strep and MRSA. The patient's white blood cell count has improved from 23.5 down to 6.9. She is currently afebrile. She otherwise appears to be stable. Plan: Initially plan was to treat patient with IV antibiotics for 14 days but given that her blood cultures are growing group B strep and MRSA which are both susceptible to Bactrim and Levaquin p.o. the patient will receive 1 more day of IV antibiotics in the hospital and then we will switch her over to oral antibiotics and continue treatment for a total of 14 days of antibiotics. It appears that the patient's source has now been drained therefore she should respond well to continue treatment with oral antibiotics. (2) Axillary abscess Assessment/Plan: The patient had bilateral axillary abscesses. These were drained by surgery. These were the source of the patient's bacteremia. The culture from the axillary abscesses grew out group B strep and MRSA. These are being treated with IV vancomycin. Both appear to be susceptible to oral Levaquin and Bactrim. If patient continues to be stable without fever and white blood cell count continues to be normal patient will be able to be switched to oral antibiotics and discharged home. Patient has dressing at site of drainage of abscesses and dressing appears to be clean. (3) HCAP (healthcare-associated pneumonia) Assessment/Plan: The patient was found to have healthcare associated pneumonia on presentation. She continues to have decreased sounds at her bases. She is not requiring oxygen but O2 sats do drop to the low 90s on room air. The patient is afebrile. Patient has been treated with vancomycin, cefepime and Levaquin. Today we will stop by the patient's cefepime and continue vancomycin and Levaquin. Once the patient is ready for discharge we will change her to oral antibiotics. (4) GI bleed Assessment/Plan: On presentation the patient appeared to have hematemesis. She has had no further episodes. The patient's hemoglobin did drop from 12.4-7.2. This however appears to have been dilutional. The patient stools do not appear to be black or bloody. We will continue to monitor the patient's hemoglobin if it drops below 7 we will transfuse. At this point patient will be continued on Protonix. If we see evidence of active bleeding we will consider getting EGD/colonoscopy. (5) DKA (diabetic ketoacidoses) Qualifiers: Diabetes mellitus type: type 1 Diabetes mellitus complication detail: without coma Qualified Code(s): E10.10 - Type 1 diabetes mellitus with ketoacidosis without coma Assessment/Plan: Resolved patient is back on home dose of Lantus, sliding scale insulin and mealtime insulin. Patient's blood glucose today is on the low side. We will adjust the patient's Lantus and NovoLog doses. - Current Meds Current Meds: Current Medications Generic Name Dose Route Start Last Admin Trade Name Freq PRN Reason Stop Dose Admin Acetaminophen 650 mg 12/30/17 16:23 01/04/18 00:06 Tylenol PO 650 mg Q4HR PRN Administration Pain or Fever > 38C (100.4F) Amitriptyline HCl 25 mg 12/31/17 21:00 01/03/18 20:30 Elavil PO 25 mg HS SYLVIA Administration Ascorbic Acid 500 mg 01/04/18 09:00 01/04/18 08:46 Vitamin C PO 500 mg DAILY SYLVIA Administration Aspirin 81 mg 12/31/17 09:00 01/04/18 08:38 Ecotrin PO 81 mg DAILY SYLVIA Administration Cilostazol 100 mg 12/31/17 09:00 01/04/18 08:38 Pletal PO 100 mg BID SYLVIA Administration Diltiazem HCl 120 mg 12/31/17 09:00 01/04/18 08:38 Cardizem Cd PO 120 mg DAILY SYLVIA Administration Duloxetine HCl 60 mg 12/31/17 09:00 01/04/18 08:37 Cymbalta PO 60 mg DAILY SYLVIA Administration Ferrous Sulfate 325 mg 12/31/17 11:00 01/04/18 08:00 Feosol PO 325 mg DAILYWM SYLVIA Administration Gabapentin 900 mg 12/31/17 09:00 01/04/18 14:41 Neurontin PO 900 mg TID SYLVIA Administration Guaifenesin 600 mg 01/01/18 17:14 01/04/18 08:36 Mucinex PO 600 mg BID SYLVIA Administration Guaifenesin/Codeine Phosphate 5 ml 01/01/18 17:15 01/04/18 14:53 Robitussin Ac PO 5 ml Q6HR PRN Administration Cough Haloperidol 1 mg 01/02/18 22:14 01/03/18 20:58 Haldol Inj IVP 1 mg Q6H PRN Administration Agitation Heparin Sodium (Beef Lung) 30 - 50 unit 12/31/17 02:52 01/04/18 08:15 IVP 30 unit PRN PRN Administration Central Line Protocol (<24 hr) Famotidine 50 mls @ 100 mls/hr 12/30/17 21:00 01/04/18 09:05 Pepcid 20 Mg/50 Ml IV Infused BID SYLVIA Infusion Vancomycin HCl 1 gm/ Sodium 250 mls @ 167 mls/hr 12/30/17 22:00 01/04/18 14:36 Chloride IV 167 mls/hr Q8H SYLVIA Administration Levofloxacin 500 mg in 100 mls @ 100 mls/hr 01/03/18 17:00 01/03/18 18:00 Levaquin 500 Mg/100 Ml IV Infused Q24H SYLVIA Infusion Ibuprofen 600 mg 12/31/17 08:17 01/04/18 08:31 Motrin PO 600 mg Q6HR PRN Administration Pain 1 to 4 Insulin Aspart 2 - 10 unit 01/04/18 12:30 01/04/18 13:04 Novolog SUBQ Not Given 0800,1200,1700,2100 [facility] Protocol Insulin Glargine 40 unit 12/31/17 21:00 01/03/18 20:37 Lantus Solostar SUBQ 40 unit QPM SYLVIA Administration Ketorolac Tromethamine 30 mg 01/02/18 21:03 01/04/18 13:25 Toradol Inj (30mg) IVP 01/07/18 21:02 30 mg Q6HR PRN Administration PAIN Lidocaine 1 applic 01/02/18 22:00 01/04/18 13:32 Xylocaine Ointment 5% TOP Not Given QID SYLVIA Loperamide HCl 2 mg 01/01/18 19:21 01/01/18 20:40 Imodium PO 2 mg QID PRN Administration Diarrhea Lorazepam 0.5 mg 12/31/17 01:54 01/04/18 10:16 Ativan Inj (Vial) IVP 0.5 mg Q2H PRN Administration Anxiety Metoclopramide HCl 10 mg 12/31/17 11:00 01/04/18 11:13 Reglan PO 10 mg ACHS SYLVIA Administration Metoprolol Succinate 25 mg 12/31/17 09:00 01/04/18 08:38 Toprol Xl PO 25 mg BID SYLVIA Administration Multivitamins/Minerals 1 tab 12/31/17 11:00 01/04/18 08:05 Theragran M PO 1 tab DAILYWM SYLVIA Administration Nicotine 1 patch 01/04/18 10:30 01/04/18 10:41 Nicoderm TOP 1 patch DAILY SYLVIA Administration Nystatin 1 applic 12/31/17 13:30 01/04/18 09:10 Mycostatin Cream TOP Not Given BID SYLVIA Saccharomyces Boulardii 250 mg 12/31/17 17:00 01/04/18 08:05 Florastor PO 250 mg BIDWM SYLVIA Administration Sodium Chloride 10 ml 12/30/17 17:00 01/04/18 09:10 Normal Saline Flush 0.9% IVP Not Given 0100,0900,1700 SYLVIA Sodium Chloride 10 ml 12/30/17 16:23 01/04/18 08:16 Normal Saline Flush 0.9% IVP 10 ml PRN PRN Administration NEEDED PER PROVIDER ORDERS Sodium Chloride 20 ml 12/31/17 02:52 01/04/18 04:38 Normal Saline Flush 0.9% IVP 20 ml PRN PRN Administration After Blood Draw Throat Lozenges 1 lozenge 01/02/18 02:59 01/04/18 12:06 Cepacol MM 1 lozenge Q2HR PRN Administration Throat pain Tramadol HCl 50 mg 01/03/18 17:21 01/04/18 06:12 Ultram PO 50 mg Q6H PRN Administration MOD PAIN 5-7 Vancomycin HCl 125 mg 01/01/18 21:00 01/04/18 13:24 Vancocin PO 125 mg QID SYLVIA Administration - Lab Result Fish Bone Diagrams: 01/03/18 04:30 01/03/18 04:30 - Diagnostic Imaging Results Diagnostic Imaging Results: Final report reviewed - Additional Planning Condition/Complexity: Guarded My Orders: My Active Orders 01/04/18 12:23 Blood Glucose Checks - Eating [RC] 0800,1200,1700,209901/04/18 12:30 Insulin Aspart [NovoLOG] 2 - 10 unit SUBQ 0800,1200,1700,2100 01/04/18 13:00 Sodium Chloride 0.9% [Normal Saline 0.9%] 500 ml IV MAINTENANCE.IV 01/04/18 14:02 Oxygen Therapy [RC] .PRN 01/04/18 14:03 Chest 1 View X-Ray [XR] Routine 01/04/18 17:00 Insulin Aspart [NovoLOG] 15 unit SUBQ TIDWM 01/05/18 05:00 CBC - COMP BLD CT W/AUTO DIFF [HEME] DAILYLAB CMP, RFLX TO IONIZED CA IF [CHEM] DAILYLAB 01/06/18 05:00 CBC - COMP BLD CT W/AUTO DIFF [HEME] DAILYLAB CMP, RFLX TO IONIZED CA IF [CHEM] DAILYLAB 01/07/18 05:00 CBC - COMP BLD CT W/AUTO DIFF [HEME] DAILYLAB CMP, RFLX TO IONIZED CA IF [CHEM] DAILYLAB 01/08/18 05:00 CBC - COMP BLD CT W/AUTO DIFF [HEME] DAILYLAB CMP, RFLX TO IONIZED CA IF [CHEM] DAILYLAB 01/09/18 05:00 CBC - COMP BLD CT W/AUTO DIFF [HEME] DAILYLAB CMP, RFLX TO IONIZED CA IF [CHEM] DAILYLAB 01/10/18 05:00 CBC - COMP BLD CT W/AUTO DIFF [HEME] DAILYLAB CMP, RFLX TO IONIZED CA IF [CHEM] DAILYLAB 01/11/18 05:00 CBC - COMP BLD CT W/AUTO DIFF [HEME] DAILYLAB CMP, RFLX TO IONIZED CA IF [CHEM] DAILYLAB 01/12/18 05:00 CBC - COMP BLD CT W/AUTO DIFF [HEME] DAILYLAB CMP, RFLX TO IONIZED CA IF [CHEM] DAILYLAB 01/13/18 05:00 CBC - COMP BLD CT W/AUTO DIFF [HEME] DAILYLAB CMP, RFLX TO IONIZED CA IF [CHEM] DAILYLAB 01/14/18 05:00 CBC - COMP BLD CT W/AUTO DIFF [HEME] DAILYLAB CMP, RFLX TO IONIZED CA IF [CHEM] DAILYLAB Plan Discussed with:: Patient Time Spent: 31-60 minutes Subjective - Subjective Patient Reports: Pain (Chest and axilla bilateral. Wants something more for pain.), Other (No fevers or chills.) Nursing Reports: No Complaints Objective Vital Signs: Vital Signs - 24 hr 01/03/18 01/03/18 01/04/18 17:00 21:20 04:25 Temperature 37.4 C 36.5 C Heart Rate [ 108 H 111 H 99 Monitoring electrodes] Respiratory 21 27 H 28 H Rate Blood Pressure 164/102 H 142/94 H 125/90 H [Right Brachial artery] O2 Saturation 95 95 01/04/18 01/04/18 08:00 12:00 Temperature 37.3 C 37.5 C Heart Rate [ 105 H 125 H Monitoring electrodes] Respiratory 22 22 Rate Blood Pressure 142/98 H 142/79 H [Right Brachial artery] O2 Saturation 93 94 Oxygen O2 Source [Without Activity] Room air O2 Source Room air I&O (Last 24 Hrs): Intake and Output Totals x24h 01/02/18 01/03/18 01/04/18 23:59 23:59 23:59 Intake Total 9050 7906.667 1999 Output Total 1999 1 Balance 7050 7906.667 1998 General: Alert, Oriented x3, No acute distress HEENT: Atraumatic, PERRLA, EOMI, Mucous membr. moist/pink Neck: Supple, No JVD, No thyromegaly, +2 carotid pulse wo bruit, No LAD Lymphatic: other (Bilateral axilla with dressing appears normal.) Neuro: Alert, Non Focal, CN 2-12 Grossly Intact, Oriented Times 3 Cardiovascular: Normal S1, Normal S2, No murmurs, Other (Tachycardic) Respiratory: Chest non-tender, No respiratory distress, Rhonchi (Bilateral lower lungs) Abdomen: Normal bowel sounds, Soft, No tenderness, No hepatospenomegaly Extremities: No clubbing, No cyanosis, No edema, Normal pulses Skin: No rashes - Results Results: Laboratory Results WBC 6.9 x10^3/uL (4.8-10.8) 01/03/18 04:30 RBC 3.01 10^6/uL (4.20-5.40) L 01/03/18 04:30 Hgb 7.2 g/dL (12.0-16.0) L 01/03/18 04:30 Hct 22.8 % (37.0-47.0) L 01/03/18 04:30 MCV 75.7 fL (81.0-99.0) L 01/03/18 04:30 MCH 23.9 pg (27.0-31.0) L 01/03/18 04:30 MCHC 31.6 g/dL (32.0-36.0) L 01/03/18 04:30 RDW 18.6 % (12.0-15.0) H 01/03/18 04:30 Plt Count 297 10^3/uL (130-450) 01/03/18 04:30 MPV 7.4 fL (7.9-10.8) L 01/03/18 04:30 Neut # (Auto) 4.2 10^3/uL (1.5-6.6) 01/03/18 04:30 Lymph # (Auto) 2.0 10^3/uL (1.5-3.5) 01/03/18 04:30 [place] # (Auto) 0.5 10^3/uL (0.0-1.0) 01/03/18 04:30 Eos # (Auto) 0.2 10^3/uL (0.0-0.7) 01/03/18 04:30 Baso # (Auto) 0.0 10^3/uL (0.0-0.1) 01/03/18 04:30 Absolute Nucleated RBC 0.00 x10^3/uL 01/03/18 04:30 Nucleated RBC % 0.0 /100WBC 01/03/18 04:30 Manual Slide Review Indicated 12/30/17 11:55 Platelet Estimate NORMAL (130-450,000) (NORMAL) 12/31/17 06:12 Platelet Morphology PLATELET CLUMPING (NORMAL) 12/31/17 06:12 RBC Morph Micro Appear NORMAL APPEARANCE (NORMAL) 12/30/17 11:55 VBG pH 7.417 (7.31-7.41) H 01/02/18 04:51 VBG pCO2 24.8 mmHg (41-51) L 12/30/17 21:31 VBG pO2 65.4 mmHg (25-47) H 12/30/17 21:31 VBG HCO3 14.0 mmol/L (23-28) L 12/30/17 21:31 VBG Total CO2 14.7 mmol/L (24-29) L 12/30/17 21:31 VBG O2 Saturation 97.2 % (60-80) H 12/30/17 21:31 VBG Base Excess -9.3 mmol/L (-2 - +2) L 12/30/17 21:31 Ionized Calcium 1.06 mmol/L (1.15-1.33) L 01/02/18 04:51 Sodium 138 mmol/L (135-145) 01/03/18 04:30 Potassium 3.7 mmol/L (3.5-5.0) 01/03/18 04:30 Chloride 103 mmol/L (101-111) 01/03/18 04:30 Carbon Dioxide 28 mmol/L (21-32) 01/03/18 04:30 Anion Gap 7.0 (6-13) 01/03/18 04:30 BUN 9 mg/dL (6-20) 01/03/18 04:30 Creatinine 0.5 mg/dL (0.4-1.0) 01/03/18 04:30 Estimated GFR (MDRD) 140 (>89) 01/03/18 04:30 Glucose 282 mg/dL (70-100) H 01/03/18 04:30 POC Whole Bld Glucose 155 mg/dL (70 - 100) H 01/04/18 14:33 Lactic Acid 1.1 mmol/L (0.5-2.2) 12/30/17 11:55 Calcium 7.5 mg/dL (8.5-10.3) L 01/03/18 04:30 Phosphorus 5.2 mg/dL (2.5-4.6) H 01/04/18 04:44 Magnesium 1.7 mg/dL (1.7-2.8) 01/04/18 04:44 Albumin 2.0 g/dL (3.2-5.5) L 01/03/18 04:30 Serum HCG, Qual NEGATIVE 12/30/17 11:55 Urine Color YELLOW 12/30/17 13:30 Urine Clarity SL. CLOUDY (CLEAR) 12/30/17 13:30 Urine pH 5.5 PH (5.0-7.5) 12/30/17 13:30 Ur Specific [place] >=1.030 (1.002-1.030) H 12/30/17 13:30 Urine Protein 30 mg/dL (NEGATIVE) H 12/30/17 13:30 Urine Glucose (UA) 250 mg/dL (NEGATIVE) H 12/30/17 13:30 Urine Ketones >=80 mg/dL (NEGATIVE) H 12/30/17 13:30 Urine Occult Blood LARGE (NEGATIVE) H 12/30/17 13:30 Urine Nitrite NEGATIVE (NEGATIVE) 12/30/17 13:30 Urine Bilirubin NEGATIVE (NEGATIVE) 12/30/17 13:30 Urine Urobilinogen 0.2 (NORMAL) E.U./dL (NORMAL) 12/30/17 13:30 Ur Leukocyte Esterase TRACE (NEGATIVE) H 12/30/17 13:30 Urine RBC 11-25 /HPF (0-5) H 12/30/17 13:30 Urine WBC 6-10 /HPF (0-5) H 12/30/17 13:30 Ur Squamous Epith Cells MOD Squamous (<= Few) H 12/30/17 13:30 Urine Bacteria Few /HPF (None Seen) 12/30/17 13:30 Ur Microscopic Review INDICATED 12/30/17 13:30 Urine Culture Comments NOT INDICATED 12/30/17 13:30 Last Dose Date 12/31/17 12/31/17 21:09 Last Dose Time 1600 12/31/17 21:09 Vancomycin Trough 11.6 ug/mL (10.0-20.0) 12/31/17 21:09 Urine Opiates Screen POSITIVE (NEGATIVE) H 12/30/17 13:30 Ur Oxycodone Screen NEGATIVE (NEGATIVE) 12/30/17 13:30 Urine Methadone Screen NEGATIVE (NEGATIVE) 12/30/17 13:30 Ur Propoxyphene Screen NEGATIVE (NEGATIVE) 12/30/17 13:30 Ur Barbiturates Screen NEGATIVE (NEGATIVE) 12/30/17 13:30 Ur Tricyclics Screen NEGATIVE (NEGATIVE) 12/30/17 13:30 Ur Phencyclidine Scrn NEGATIVE (NEGATIVE) 12/30/17 13:30 Ur Amphetamine Screen NEGATIVE (NEGATIVE) 12/30/17 13:30 U Methamphetamines Scrn NEGATIVE (NEGATIVE) 12/30/17 13:30 U Benzodiazepines Scrn NEGATIVE (NEGATIVE) 12/30/17 13:30 Urine Cocaine Screen NEGATIVE (NEGATIVE) 12/30/17 13:30 U Cannabinoids Screen NEGATIVE (NEGATIVE) 12/30/17 13:30 Serum Ketones SMALL (NEGATIVE) H 12/31/17 05:00 Blood Type O POSITIVE 12/30/17 11:55 Antibody Screen NEGATIVE 12/30/17 11:55 - Procedures Procedures: Procedures DETACHMENT AT LEFT 4TH TOE, LOW, OPEN APPROACH (06/30/17) DETACHMENT AT RIGHT 1ST TOE, LOW, OPEN APPROACH (03/14/17) DETACHMENT AT RIGHT 2ND TOE, HIGH, OPEN APPROACH (06/30/17) DETACHMENT AT RIGHT 4TH TOE, HIGH, OPEN APPROACH (06/30/17) INSERT INFUSION DEV IN R INT JUGULAR VEIN, PERC (04/21/16) INSERTION OF INFUSION DEV INTO R SUBCLAV VEIN, PERC APPROACH (03/14/17) INSERTION OF INFUSION DEV INTO SUP VENA CAVA, PERC APPROACH (10/26/17) INSERTION OF INFUSION DEVICE INTO LOWER VEIN, PERC APPROACH (08/13/17) INSERTION OF INFUSION DEVICE INTO R ATRIUM, PERC APPROACH (11/17/17) TRANSFUSE NONAUT RED BLOOD CELLS IN CENTRAL VEIN, PERC (12/01/17) TRANSFUSE NONAUT RED BLOOD CELLS IN PERIPH VEIN, PERC (01/22/17) ULTRASONOGRAPHY OF RIGHT JUGULAR VEINS, GUIDANCE (04/21/16) ABX Reporting Has patient been on IV antibiotics over the past 48 hours?: Yes Current Medications - Current Medications Current Medications: Active Medications Generic Name Dose Route Start Last Admin Trade Name Freq PRN Reason Stop Dose Admin Acetaminophen 650 mg 12/30/17 16:23 01/04/18 00:06 Tylenol PO 650 mg Q4HR PRN Administration Pain or Fever > 38C (100.4F) Amitriptyline HCl 25 mg 12/31/17 21:00 01/03/18 20:30 Elavil PO 25 mg HS SYLVIA Administration Ascorbic Acid 500 mg 01/04/18 09:00 01/04/18 08:46 Vitamin C PO 500 mg DAILY SYLVIA Administration Aspirin 81 mg 12/31/17 09:00 01/04/18 08:38 Ecotrin PO 81 mg DAILY SYLVIA Administration Cilostazol 100 mg 12/31/17 09:00 01/04/18 08:38 Pletal PO 100 mg BID SYLVIA Administration Diltiazem HCl 120 mg 12/31/17 09:00 01/04/18 08:38 Cardizem Cd PO 120 mg DAILY SYLVIA Administration Duloxetine HCl 60 mg 12/31/17 09:00 01/04/18 08:37 Cymbalta PO 60 mg DAILY SYLVIA Administration Ferrous Sulfate 325 mg 12/31/17 11:00 01/04/18 08:00 Feosol PO 325 mg DAILYWM SYLVIA Administration Gabapentin 900 mg 12/31/17 09:00 01/04/18 14:41 Neurontin PO 900 mg TID SYLVIA Administration Guaifenesin 600 mg 01/01/18 17:14 01/04/18 08:36 Mucinex PO 600 mg BID SYLVIA Administration Guaifenesin/Codeine Phosphate 5 ml 01/01/18 17:15 01/04/18 14:53 Robitussin Ac PO 5 ml Q6HR PRN Administration Cough Haloperidol 1 mg 01/02/18 22:14 01/03/18 20:58 Haldol Inj IVP 1 mg Q6H PRN Administration Agitation Heparin Sodium (Beef Lung) 30 - 50 unit 12/31/17 02:52 01/04/18 08:15 IVP 30 unit PRN PRN Administration Central Line Protocol (<24 hr) Heparin Sodium (Beef Lung) 30 - 50 unit 01/03/18 08:05 IVP PRN PRN Central Line Protocol (<24 hr) Hydrocortisone 25 mg 01/03/18 18:13 Anusol-Hc [place] BID PRN Hemorrhoids Famotidine 50 mls @ 100 mls/hr 12/30/17 21:00 01/04/18 09:05 Pepcid 20 Mg/50 Ml IV Infused BID SYLVIA Infusion Vancomycin HCl 1 gm/ Sodium 250 mls @ 167 mls/hr 12/30/17 22:00 01/04/18 14:36 Chloride IV 167 mls/hr Q8H SYLVIA Administration Levofloxacin 500 mg in 100 mls @ 100 mls/hr 01/03/18 17:00 01/03/18 18:00 Levaquin 500 Mg/100 Ml IV Infused Q24H SYLVIA Infusion Sodium Chloride 500 mls @ 20 mls/hr 01/04/18 13:00 01/04/18 13:00 Normal Saline 0.9% IV 20 mls/hr MAINTENANCE.IV SYLVIA Administration Ibuprofen 600 mg 12/31/17 08:17 01/04/18 08:31 Motrin PO 600 mg Q6HR PRN Administration Pain 1 to 4 Insulin Aspart 2 - 10 unit 01/04/18 12:30 01/04/18 13:04 Novolog SUBQ Not Given 0800,1200,1700,2100 [facility] Protocol Insulin Aspart 15 unit 01/04/18 17:00 Novolog SUBQ TIDWM [facility] Protocol Insulin Glargine 40 unit 12/31/17 21:00 01/03/18 20:37 Lantus Solostar SUBQ 40 unit QPM SYLVIA Administration Ketorolac Tromethamine 30 mg 01/02/18 21:03 01/04/18 13:25 Toradol Inj (30mg) IVP 01/07/18 21:02 30 mg Q6HR PRN Administration PAIN Lidocaine 1 applic 01/02/18 22:00 01/04/18 13:32 Xylocaine Ointment 5% TOP Not Given QID [facility] Loperamide HCl 2 mg 01/01/18 19:21 01/01/18 20:40 Imodium PO 2 mg QID PRN Administration Diarrhea Lorazepam 0.5 mg 12/31/17 01:54 01/04/18 10:16 Ativan Inj (Vial) IVP 0.5 mg Q2H PRN Administration Anxiety Metoclopramide HCl 10 mg 12/31/17 11:00 01/04/18 16:11 Reglan PO 10 mg ACHS SYLVIA Administration Metoprolol Succinate 25 mg 12/31/17 09:00 01/04/18 08:38 Toprol Xl PO 25 mg BID SYLVIA Administration Multivitamins/Minerals 1 tab 12/31/17 11:00 01/04/18 08:05 Theragran M PO 1 tab DAILYWM SYLVIA Administration Nicotine 1 patch 01/04/18 10:30 01/04/18 10:41 Nicoderm TOP 1 patch DAILY SYLVIA Administration Nystatin 1 applic 12/31/17 13:30 01/04/18 09:10 Mycostatin Cream TOP Not Given BID [facility] Prochlorperazine Edisylate 10 mg 12/30/17 16:23 Compazine Inj IVP Q6HR PRN Nausea / Vomiting Saccharomyces Boulardii 250 mg 12/31/17 17:00 01/04/18 08:05 Florastor PO 250 mg BIDWM SYLVIA Administration Sodium Chloride 10 ml 12/30/17 17:00 01/04/18 09:10 Normal Saline Flush 0.9% IVP Not Given 0100,0900,1700 SYLVIA Sodium Chloride 10 ml 12/30/17 16:23 01/04/18 08:16 Normal Saline Flush 0.9% IVP 10 ml PRN PRN Administration NEEDED PER PROVIDER ORDERS Sodium Chloride 20 ml 12/31/17 02:52 01/04/18 04:38 Normal Saline Flush 0.9% IVP 20 ml PRN PRN Administration After Blood Draw Throat Lozenges 1 lozenge 01/02/18 02:59 01/04/18 12:06 Cepacol MM 1 lozenge Q2HR PRN Administration Throat pain Tramadol HCl 50 mg 01/03/18 17:21 01/04/18 06:12 Ultram PO 50 mg Q6H PRN Administration MOD PAIN 5-7 Vancomycin HCl 125 mg 01/01/18 21:00 01/04/18 13:24 Vancocin PO 125 mg QID SYLVIA Administration Witch Shantel/Glycerin 1 each 01/03/18 13:21 Tucks TOP PRN PRN ITCHING
--- NOTE | 2018-01-04 16:12 | XRAY Report ---
Reason: Hypoxia Procedure Date: 01/04/2018 Accession Number: [id number] / [id number] Procedure: XR - Chest 1 View X-Ray CPT Code: 60055 FULL RESULT: EXAM: CHEST RADIOGRAPHY EXAM DATE: 01/04/2018 02:22 PM. CLINICAL HISTORY: Hypoxia. COMPARISON: CHEST 1 VIEW 12/30/2017 11:52 AM. TECHNIQUE: 1 view. FINDINGS: Lungs/Pleura: There is worsened airspace disease and associated confluent opacity with convex margins in the right lower lung. Lungs are hypoexpanded and there is at least trace effusion on the right. Left lung is clear. No extraventilatory air. Mediastinum: Within exam limitations, the cardiomediastinal contour is normal. Other: Right IJ approach central venous catheter tip distal third SVC. IMPRESSION: Worsened airspace opacity in the right lower lobe as described. At least trace right effusion; possible intrafissural component. RADIA
[2018-01-04] MEDS: levoFLOXacin 500 MG/100 ML 500 MG/100 ML BAG IV SCH (17:25)
[2018-01-04] MEDS: AMITRIPTYLINE 25 MG TABLET PO SCH (20:30)
--- NOTE | 2018-01-04 20:32 | CT Report ---
Reason: Hypoxia, SOB, abnormal CXR Procedure Date: 01/04/2018 Accession Number: [id number] / [id number] Procedure: CT - Chest W/O CPT Code: FULL RESULT: EXAM: CT CHEST EXAM DATE: 01/04/2018 07:35 PM. CLINICAL HISTORY: Hypoxia, shortness of breath, abnormal chest x-ray. COMPARISONS: Chest CTA 05/11/2017. Chest x-ray earlier today at 1410. TECHNIQUE: Routine helical CT imaging was performed through the chest. IV contrast: None. Reconstructions: Coronal and sagittal. In accordance with CT protocol optimization, one or more of the following dose reduction techniques were utilized for this exam: automated exposure control, adjustment of mA and/or KV based on patient size, or use of iterative reconstructive technique. FINDINGS: Lungs/Pleura: New small bilateral water density pleural effusions. No pneumothorax. New dense opacity involving entirety of the lateral segment right middle lobe with a 2 cm rim of less dense opacity in the adjacent medial segment, without bronchial obstruction. Platelike atelectasis right upper lobe. Left lung is clear. Mediastinum: Heart is of normal caliber without significant pericardial fluid. New right jugular line in place with the tip inferior third SVC. Stable extensive shotty mediastinal and bilateral hilar adenopathy. Bones: New healing fracture anteriormost aspect right fourth rib. Visualized Abdomen: Cholecystectomy. Other: New mild anasarca. IMPRESSION: 1. Small bilateral pleural effusions. 2. Non-cavitating opacification lateral segment right middle lobe with small rim of much lesser infiltrate in the adjacent medial segment. Appearance favors an inflammatory process, and/or complication following lung contusion rather than mass lesion. Follow-up chest x-rays and/or follow-up chest CT recommended to confirm complete clearing. 3. Stable extensive shotty mediastinal and bilateral axillary adenopathy. 4. Mild anasarca. 5. Healing fracture anterior aspect right fourth rib. RADIA
[2018-01-04] MEDS: INSULIN GLARGINE 300 UNIT/3 ML PEN SUBQ SCH (20:38)
[2018-01-05] MEDS: VANCOMYCIN INJ 1 GM in SODIUM CHLORIDE 0.9% 250 ML IV SCH ×3 (00:40→17:04)
[2018-01-05] MEDS: BENZOCAINE/MENTHOL LOZENGE MM PRN ×4 (02:41→20:16)
[2018-01-05] MEDS: SODIUM CHLORIDE FLUSH 0.9% 10 ML SYRINGE IVP PRN ×5 (04:43→21:21)
[2018-01-05] MEDS: IBUPROFEN 600 MG TABLET PO PRN ×3 (04:54→20:16)
[2018-01-05] MEDS: ACETAMINOPHEN 325 MG TABLET PO PRN ×3 (04:55→20:16)
[2018-01-05 05:38] LABS: ALBUMIN 2.3 g/dL (3.2-5.5); ALBUMIN/GLOBULIN RATIO 0.6 (1.0-2.2); ALKALINE PHOSPHATASE 112 IU/L (42-121); ALT ALANINE AMINOTRANSFERASE 12 IU/L (10-60); AST ASPARTATE AMINOTRANSFERASE 15 IU/L (10-42); BILIRUBIN,TOTAL 0.4 mg/dL (0.2-1.0); BUN - BLOOD UREA NITROGEN 9 mg/dL (6-20); CALCIUM 8.3 mg/dL (8.5-10.3); CARBON DIOXIDE - CO2 32 mmol/L (21-32); CHLORIDE 95 mmol/L (101-111); CREATININE 0.4 mg/dL (0.4-1.0); GFR - MDRD 181 (>89); GLUCOSE 179 mg/dL (70-100); SODIUM 134 mmol/L (135-145); TOTAL PROTEIN 6.4 g/dL (6.7-8.2)
[2018-01-05 05:40] LABS: VBG PH 7.457 (7.31-7.41)
[2018-01-05 05:44] LABS: BASOPHILS % (AUTO) 0.6 %; EOSINOPHILS % (AUTO) 1.6 %; HGB - HEMOGLOBIN 7.8 g/dL (12.0-16.0); LYMPHOCYTES % (AUTO) 18.9 %; MEAN CORPUSCULAR HEMOGLOBIN 23.7 pg (27.0-31.0); MEAN CORPUSCULAR HGB CONC 31.1 g/dL (32.0-36.0); MEAN PLATELET VOLUME 6.9 fL (7.9-10.8); MONOCYTES % (AUTO) 10.2 %; NEUTROPHILS % (AUTO) 68.7 %; PLT - PLATELET COUNT 497 10^3/uL (130-450); RED BLOOD COUNT 3.29 10^6/uL (4.20-5.40); WHITE BLOOD COUNT 9.7 x10^3/uL (4.8-10.8)
[2018-01-05 05:48] LABS: ABNORMAL LYMPHS % (MANUAL) 0 %
[2018-01-05 05:49] LABS: MAGNESIUM 1.6 mg/dL (1.7-2.8); PHOSPHORUS 4.5 mg/dL (2.5-4.6)
[2018-01-05] MEDS: GABAPENTIN 300 MG CAPSULE PO SCH ×3 (06:30→21:21)
[2018-01-05] MEDS: METOCLOPRAMIDE 10 MG TABLET PO SCH ×4 (06:30→20:16)
[2018-01-05 06:36] LABS: BAND NEUTROPHILS % (MANUAL) 7 %; EOSINOPHILS # (MANUAL) 0.6 10^3/uL (0-0.7); LYMPHOCYTES # (MANUAL) 2.4 10^3/uL (1.5-3.5); LYMPHOCYTES % (MANUAL) 25 %; METAMYELOCYTES % (MANUAL) 2 %; MONOCYTES # (MANUAL) 0.9 10^3/uL (0.0-1.0); MYELOCYTES % (MANUAL) 2 %; NEUTROPHILS # (MANUAL) 5.4 10^3/uL (1.5-6.6); NEUTROPHILS % (MANUAL) 49 %
[2018-01-05 06:37] LABS: DIFFERENTIAL COMMENT MANUAL DIFFERENTIAL; PLATELET ESTIMATE, MANUAL INCREASED (>450,000) (NORMAL)
[2018-01-05] MEDS: METOPROLOL SUCCINATE 25 MG TABLET PO SCH ×2 (08:10→20:16)
[2018-01-05] MEDS: SACCHAROMYCES BOULARDII 250 MG CAPSULE PO SCH ×2 (08:10→17:03)
[2018-01-05] MEDS: FAMOTIDINE 20 MG/50 ML 50 ML IV SCH ×2 (08:10→20:16)
[2018-01-05] MEDS: VANCOMYCIN 125 MG CAPSULE PO SCH ×4 (08:10→21:21)
[2018-01-05] MEDS: ASPIRIN EC 81 MG TABLET PO SCH (08:10)
[2018-01-05] MEDS: guaiFENesin 600 MG TABLET PO SCH ×2 (08:10→20:16)
[2018-01-05] MEDS: CILOSTAZOL 100 MG TABLET PO SCH ×2 (08:10→20:16)
[2018-01-05] MEDS: MULTIVITAMIN W/MINERALS TABLET PO SCH (08:10)
[2018-01-05] MEDS: DULoxetine 30 MG CAPSULE PO SCH (08:10)
[2018-01-05] MEDS: FERROUS SULFATE 325 MG TABLET PO SCH (08:10)
[2018-01-05] MEDS: diltiaZEM CD 120 MG CAPSULE PO SCH (08:10)
[2018-01-05] MEDS: ASCORBIC ACID CHEW 500 MG TABLET PO SCH (08:10)
[2018-01-05] MEDS: INSULIN ASPART 300 UNIT/3 ML PEN SUBQ SCH ×7 (08:11→20:25)
[2018-01-05] MEDS: NICOTINE 14 MG PATCH TOP SCH (08:11)
[2018-01-05] MEDS: SODIUM CHLORIDE FLUSH 0.9% 10 ML SYRINGE IVP SCH ×3 (08:11→20:20)
[2018-01-05] MEDS: NYSTATIN CREAM 15 GM TUBE TOP SCH ×2 (08:11→20:27)
[2018-01-05] MEDS: LIDOCAINE OINTMENT 5% 35.44 GM TUBE TOP SCH ×4 (08:11→20:27)
[2018-01-05] MEDS: guaiFENesin/CODEINE 5 ML UDC PO PRN (09:29)
--- NOTE | 2018-01-05 11:00 | PROVIDER PROGRESS NOTE ---
Assessment/Plan - Problem List (1) Bacteremia Assessment/Plan: Patient has bacteremia with 2 organisms group B streptococcus and methicillin- resistant staph aureus. Both organisms are susceptible to vancomycin IV. Both organisms are also susceptible to p.o. Levaquin and p.o. Bactrim. The patient has been on IV vancomycin for 5 days and appears to be improving. The source of the patient's bacteremia appears to be an bilateral abscesses in her axilla. The patient's wound culture from her right and left axilla is also growing group B strep and MRSA. The patient's white blood cell count has improved from 23.5 down to 9.7. She continues to be afebrile. Plan: Initially plan was to treat patient with IV antibiotics for 14 days but given that her blood cultures are growing group B strep and MRSA which are both susceptible to Bactrim and Levaquin p.o. the patient will receive 1 more day of IV antibiotics as she is still tachycardic and tachypnic while in the hospital and then we will switch her over to oral antibiotics and continue treatment for a total of 14 days of antibiotics. It appears that the patient's source has now been drained therefore she should respond well to continue treatment with oral antibiotics. (2) Axillary abscess Assessment/Plan: The patient had bilateral axillary abscesses. These were drained by surgery. These were the source of the patient's bacteremia. The culture from the axillary abscesses grew out group B strep and MRSA. These are being treated with IV vancomycin. Both appear to be susceptible to oral Levaquin and Bactrim. If patient continues to be stable without fever and white blood cell count continues to be normal patient will be able to be switched to oral antibiotics and discharged home. Patient has dressing at site of drainage of abscesses and dressing appears to be clean. (3) HCAP (healthcare-associated pneumonia) Assessment/Plan: The patient was found to have healthcare associated pneumonia on presentation. She was having decreased sounds at her bases and dropping her sats on RA. Therefore CXR was done yesterday and it showed worsening airspace opacity in the right lower lobe with convex margins in the right lower lung. CT was done which showed non-cavitating opacification lateral segment right middle lobe with small rim of much less infiltrate in the adjacent medial segment. The patient is afebrile. The patient continues to have chest pain this am and is tachypnic and tachycardic. Patient is currently on levaquin and vancomycin We will continue IV abx for one more day and monitor patient if she is improving then we can switch to PO levaquin and continue treatment as an outpatient Patient should continue both PO levaquin and Bactrim for a total of 14 days to complete treatment for bacteremia and HCAP. (4) GI bleed Assessment/Plan: On presentation the patient appeared to have hematemesis. She has had no further episodes. The patient's hemoglobin did drop from 12.4-7.2. This howev er appears to have been dilutional. Hb now stable at 7.8. The patient stools do not appear to be black or bloody. We will continue to monitor the patient's hemoglobin if it drops below 7 we will transfuse. At this point patient will be continued on Protonix. If we see evidence of active bleeding we will consider getting EGD/colonoscopy. (5) DKA (diabetic ketoacidoses) Qualifiers: Diabetes mellitus type: type 1 Diabetes mellitus complication detail: without coma Qualified Code(s): E10.10 - Type 1 diabetes mellitus with ketoacidosis without coma Assessment/Plan: Resolved patient is back on home dose of Lantus, sliding scale insulin and mealtime insulin. Patient's blood glucose today is is less than 200. Will continue to titrate insulin. - Current Meds Current Meds: Current Medications Generic Name Dose Route Start Last Admin Trade Name Freq PRN Reason Stop Dose Admin Acetaminophen 650 mg 12/30/17 16:23 01/05/18 04:55 Tylenol PO 650 mg Q4HR PRN Administration Pain or Fever > 38C (100.4F) Amitriptyline HCl 25 mg 12/31/17 21:00 01/04/18 20:30 Elavil PO 25 mg HS SYLVIA Administration Ascorbic Acid 500 mg 01/04/18 09:00 01/05/18 08:10 Vitamin C PO 500 mg DAILY SYLVIA Administration Aspirin 81 mg 12/31/17 09:00 01/05/18 08:10 Ecotrin PO 81 mg DAILY SYLVIA Administration Cilostazol 100 mg 12/31/17 09:00 01/05/18 08:10 Pletal PO 100 mg BID SYLVIA Administration Diltiazem HCl 120 mg 12/31/17 09:00 01/05/18 08:10 Cardizem Cd PO 120 mg DAILY SYLVIA Administration Duloxetine HCl 60 mg 12/31/17 09:00 01/05/18 08:10 Cymbalta PO 60 mg DAILY SYLVIA Administration Ferrous Sulfate 325 mg 12/31/17 11:00 01/05/18 08:10 Feosol PO 325 mg DAILYWM SYLVIA Administration Gabapentin 900 mg 12/31/17 09:00 01/05/18 06:30 Neurontin PO 900 mg TID SYLVIA Administration Guaifenesin 600 mg 01/01/18 17:14 01/05/18 08:10 Mucinex PO 600 mg BID SYLVIA Administration Guaifenesin/Codeine Phosphate 5 ml 01/01/18 17:15 01/05/18 09:29 Robitussin Ac PO 5 ml Q6HR PRN Administration Cough Haloperidol 1 mg 01/02/18 22:14 01/03/18 20:58 Haldol Inj IVP 1 mg Q6H PRN Administration Agitation Heparin Sodium (Beef Lung) 30 - 50 unit 12/31/17 02:52 01/05/18 04:43 IVP 30 unit PRN PRN Administration Central Line Protocol (<24 hr) Famotidine 50 mls @ 100 mls/hr 12/30/17 21:00 01/05/18 08:54 Pepcid 20 Mg/50 Ml IV Infused BID SYLVIA Infusion Levofloxacin 500 mg in 100 mls @ 100 mls/hr 01/03/18 17:00 01/04/18 18:25 Levaquin 500 Mg/100 Ml IV Infused Q24H SYLVIA Infusion Sodium Chloride 500 mls @ 20 mls/hr 01/04/18 13:00 01/04/18 13:00 Normal Saline 0.9% IV 20 mls/hr MAINTENANCE.IV SYLVIA Administration Vancomycin HCl 1 gm/ Sodium 250 mls @ 167 mls/hr 01/05/18 01:00 01/05/18 09:27 Chloride IV 167 mls/hr Q8H SYLVIA Administration Ibuprofen 600 mg 12/31/17 08:17 01/05/18 04:54 Motrin PO 600 mg Q6HR PRN Administration Pain 1 to 4 Insulin Aspart 2 - 10 unit 01/04/18 12:30 01/05/18 08:11 Novolog SUBQ 4 unit 0800,1200,1700,2100 SYLVIA Administration Protocol Insulin Aspart 15 unit 01/04/18 17:00 11/14/18 08:12 Novolog SUBQ 15 unit TIDWM SYLVIA Administration Protocol Insulin Glargine 40 unit 12/31/17 21:00 01/04/18 20:38 Lantus Solostar SUBQ 40 unit QPM SYLVIA Administration Ketorolac Tromethamine 30 mg 01/02/18 21:03 01/04/18 13:25 Toradol Inj (30mg) IVP 01/07/18 21:02 30 mg Q6HR PRN Administration PAIN Lidocaine 1 applic 01/02/18 22:00 01/05/18 08:11 Xylocaine Ointment 5% TOP 1 applic QID SYLVIA Administration Loperamide HCl 2 mg 01/01/18 19:21 01/01/18 20:40 Imodium PO 2 mg QID PRN Administration Diarrhea Lorazepam 0.5 mg 12/31/17 01:54 01/04/18 20:31 Ativan Inj (Vial) IVP 0.5 mg Q2H PRN Administration Anxiety Metoclopramide HCl 10 mg 12/31/17 11:00 01/05/18 06:30 Reglan PO 10 mg ACHS SYLVIA Administration Metoprolol Succinate 25 mg 12/31/17 09:00 01/05/18 08:10 Toprol Xl PO 25 mg BID SYLVIA Administration Multivitamins/Minerals 1 tab 12/31/17 11:00 01/05/18 08:10 Theragran M PO 1 tab DAILYWM SYLVIA Administration Nicotine 1 patch 01/04/18 10:30 01/05/18 08:11 Nicoderm TOP 1 patch DAILY SYLVIA Administration Nystatin 1 applic 12/31/17 13:30 01/05/18 08:11 Mycostatin Cream TOP 1 applic BID SYLVIA Administration Saccharomyces Boulardii 250 mg 12/31/17 17:00 01/05/18 08:10 Florastor PO 250 mg BIDWM SYLVIA Administration Sodium Chloride 10 ml 12/30/17 17:00 01/05/18 08:11 Normal Saline Flush 0.9% IVP 10 ml 0100,0900,1700 SYLVIA Administration Sodium Chloride 10 ml 12/30/17 16:23 01/05/18 04:43 Normal Saline Flush 0.9% IVP 10 ml PRN PRN Administration NEEDED PER PROVIDER ORDERS Sodium Chloride 20 ml 12/31/17 02:52 01/05/18 04:43 Normal Saline Flush 0.9% IVP 20 ml PRN PRN Administration After Blood Draw Throat Lozenges 1 lozenge 01/02/18 02:59 01/05/18 09:30 Cepacol MM 1 lozenge Q2HR PRN Administration Throat pain Tramadol HCl 50 mg 01/03/18 17:21 01/04/18 06:12 Ultram PO 50 mg Q6H PRN Administration MOD PAIN 5-7 Vancomycin HCl 125 mg 01/01/18 21:00 01/05/18 08:10 Vancocin PO 125 mg QID SYLVIA Administration - Lab Result Lab results reviewed: Yes Fish Bone Diagrams: 01/05/18 04:44 01/05/18 04:44 - Diagnostic Imaging Results Diagnostic Imaging Results: Final report reviewed - Additional Planning Condition/Complexity: Guarded My Orders: My Active Orders 01/04/18 12:23 Blood Glucose Checks - Eating [RC] 0800,1200,1700,2100 01/04/18 12:30 Insulin Aspart [NovoLOG] 2 - 10 unit SUBQ 0800,1200,1700,2100 01/04/18 13:00 Sodium Chloride 0.9% [Normal Saline 0.9%] 500 ml IV MAINTENANCE.IV 01/04/18 14:02 Oxygen Therapy [RC] .PRN 01/04/18 17:00 Insulin Aspart [NovoLOG] 15 unit SUBQ TIDWM 01/06/18 05:00 CBC - COMP BLD CT W/AUTO DIFF [HEME] DAILYLAB CMP, RFLX TO IONIZED CA IF [CHEM] DAILYLAB 01/07/18 05:00 CBC - COMP BLD CT W/AUTO DIFF [HEME] DAILYLAB CMP, RFLX TO IONIZED CA IF [CHEM] DAILYLAB 01/08/18 05:00 CBC - COMP BLD CT W/AUTO DIFF [HEME] DAILYLAB CMP, RFLX TO IONIZED CA IF [CHEM] DAILYLAB 01/09/18 05:00 CBC - COMP BLD CT W/AUTO DIFF [HEME] DAILYLAB CMP, RFLX TO IONIZED CA IF [CHEM] DAILYLAB 01/10/18 05:00 CBC - COMP BLD CT W/AUTO DIFF [HEME] DAILYLAB CMP, RFLX TO IONIZED CA IF [CHEM] DAILYLAB 01/11/18 05:00 CBC - COMP BLD CT W/AUTO DIFF [HEME] DAILYLAB CMP, RFLX TO IONIZED CA IF [CHEM] DAILYLAB 01/12/18 05:00 CBC - COMP BLD CT W/AUTO DIFF [HEME] DAILYLAB CMP, RFLX TO IONIZED CA IF [CHEM] DAILYLAB 01/13/18 05:00 CBC - COMP BLD CT W/AUTO DIFF [HEME] DAILYLAB CMP, RFLX TO IONIZED CA IF [CHEM] DAILYLAB 01/14/18 05:00 CBC - COMP BLD CT W/AUTO DIFF [HEME] DAILYLAB CMP, RFLX TO IONIZED CA IF [CHEM] DAILYLAB Plan Discussed with:: Patient Time Spent: 31-60 minutes Subjective - Subjective Patient Reports: Cough (MIld), Chest Pain (Right side of her chest), Pain (Axilla bilateral at site of abscess drainage), Shortness of Breath (Mild) Nursing Reports: No Complaints Objective Vital Signs: Vital Signs - 24 hr 01/04/18 01/04/18 01/04/18 12:00 16:00 20:00 Temperature 37.5 C 37.5 C 36.6 C Heart Rate [ 125 H 110 H 113 H Monitoring electrodes] Respiratory 22 20 27 H Rate Blood Pressure 142/79 H 142/98 H 147/94 H [Right Brachial artery] O2 Saturation 94 93 95 01/05/18 01/05/18 05:03 08:18 Temperature 36.5 C Heart Rate [ 111 H 105 H Monitoring electrodes] Respiratory 27 H 18 Rate Blood Pressure 144/96 H 130/92 H [Right Brachial artery] O2 Saturation 92 94 Oxygen O2 Source [Without Activity] Room air O2 Source Room air I&O (Last 24 Hrs): Intake and Output Totals x24h 01/03/18 01/04/18 01/05/18 23:59 23:59 23:59 Intake Total 7906.667 2970 1759.66 Output Total 2 Balance 7906.667 2968 1759.66 General: Alert, Oriented x3, Cooperative, Mild distress (Tachypnic and in pain) HEENT: Atraumatic, PERRLA, EOMI, Mucous membr. moist/pink Neck: Supple, No JVD, No thyromegaly, +2 carotid pulse wo bruit, No LAD Lymphatic: no adenopathy Neuro: Alert, Non Focal, CN 2-12 Grossly Intact, Oriented Times 3 Cardiovascular: Other (Tachycardic) Respiratory: Chest non-tender, Rhonchi (Bilateral but worse on the right) Abdomen: Normal bowel sounds, Soft, No tenderness, No hepatospenomegaly Extremities: No clubbing, No cyanosis, No edema, Normal pulses Skin: No rashes, No breakdown - Results Results: Laboratory Results WBC 9.7 x10^3/uL (4.8-10.8) 01/05/18 04:44 RBC 3.29 10^6/uL (4.20-5.40) L 01/05/18 04:44 Hgb 7.8 g/dL (12.0-16.0) L 01/05/18 04:44 Hct 25.0 % (37.0-47.0) L 01/05/18 04:44 MCV 76.0 fL (81.0-99.0) L 01/05/18 04:44 MCH 23.7 pg (27.0-31.0) L 01/05/18 04:44 MCHC 31.1 g/dL (32.0-36.0) L 01/05/18 04:44 RDW 19.0 % (12.0-15.0) H 01/05/18 04:44 Plt Count 497 10^3/uL (130-450) H 01/05/18 04:44 MPV 6.9 fL (7.9-10.8) L 01/05/18 04:44 Neut # (Auto) Not Reportable 01/05/18 04:44 Lymph # (Auto) Not Reportable 01/05/18 04:44 Crosby # (Auto) Not Reportable 01/05/18 04:44 Eos # (Auto) Not Reportable 01/05/18 04:44 Baso # (Auto) Not Reportable 01/05/18 04:44 Absolute Nucleated RBC Not Reportable 01/05/18 04:44 Total Counted 100 01/05/18 04:44 Band Neuts % (Manual) 7 % (0-10) 01/05/18 04:44 Abnorm Lymph % (Manual) 0 % 01/05/18 04:44 Metamyelocytes % 2 % (-0) H 01/05/18 04:44 Myelocytes % 2 % (-0) H 01/05/18 04:44 Nucleated RBC % Not Reportable 01/05/18 04:44 Neutrophils # (Manual) 5.4 10^3/uL (1.5-6.6) 01/05/18 04:44 Lymphocytes # (Manual) 2.4 10^3/uL (1.5-3.5) 01/05/18 04:44 Monocytes # (Manual) 0.9 10^3/uL (0.0-1.0) 01/05/18 04:44 Eosinophils # (Manual) 0.6 10^3/uL (0-0.7) 01/05/18 04:44 Basophils # (Manual) 0.0 10^3/uL (0-0.1) 01/05/18 04:44 Differential Comment MANUAL DIFFERENTIAL 01/05/18 04:44 Manual Slide Review Indicated 12/30/17 11:55 Platelet Estimate INCREASED (>450,000) (NORMAL) 01/05/18 04:44 Platelet Morphology PLATELET CLUMPING (NORMAL) 12/31/17 06:12 RBC Morph Micro Appear 1+ ANISOCYTOSIS (NORMAL) 1+ HYPOCHROMASIA (NORMAL) 1+ POLYCHROMASIA (NORMAL) 01/05/18 04:44 RBC Morph Micro Appear 1+ ANISOCYTOSIS (NORMAL) 1+ HYPOCHROMASIA (NORMAL) 1+ POLYCHROMASIA (NORMAL) 01/05/18 04:44 RBC Morph Micro Appear 1+ ANISOCYTOSIS (NORMAL) 1+ HYPOCHROMASIA (NORMAL) 1+ POLYCHROMASIA (NORMAL) 01/05/18 04:44 VBG pH 7.457 (7.31-7.41) H 01/05/18 04:44 VBG pCO2 24.8 mmHg (41-51) L 12/30/17 21:31 VBG pO2 65.4 mmHg (25-47) H 12/30/17 21:31 VBG HCO3 14.0 mmol/L (23-28) L 12/30/17 21:31 VBG Total CO2 14.7 mmol/L (24-29) L 12/30/17 21:31 VBG O2 Saturation 97.2 % (60-80) H 12/30/17 21:31 VBG Base Excess -9.3 mmol/L (-2 - +2) L 12/30/17 21:31 Ionized Calcium 1.09 mmol/L (1.15-1.33) L 01/05/18 04:44 Sodium 134 mmol/L (135-145) L 01/05/18 04:44 Potassium 3.9 mmol/L (3.5-5.0) 01/05/18 04:44 Chloride 95 mmol/L (101-111) L 01/05/18 04:44 Carbon Dioxide 32 mmol/L (21-32) 01/05/18 04:44 Anion Gap 7.0 (6-13) 01/05/18 04:44 BUN 9 mg/dL (6-20) 01/05/18 04:44 Creatinine 0.4 mg/dL (0.4-1.0) 01/05/18 04:44 Estimated GFR (MDRD) 181 (>89) 01/05/18 04:44 Glucose 179 mg/dL (70-100) H 01/05/18 04:44 POC Whole Bld Glucose 193 mg/dL (70 - 100) H 01/05/18 07:51 Lactic Acid 1.1 mmol/L (0.5-2.2) 12/30/17 11:55 Calcium 8.3 mg/dL (8.5-10.3) L 01/05/18 04:44 Ionized Calcium YES 01/05/18 04:44 Phosphorus 4.5 mg/dL (2.5-4.6) 01/05/18 04:44 Magnesium 1.6 mg/dL (1.7-2.8) L 01/05/18 04:44 Total Bilirubin 0.4 mg/dL (0.2-1.0) 01/05/18 04:44 AST 15 IU/L (10-42) 01/05/18 04:44 ALT 12 IU/L (10-60) 01/05/18 04:44 Alkaline Phosphatase 112 IU/L (42-121) 01/05/18 04:44 Total Protein 6.4 g/dL (6.7-8.2) L 01/05/18 04:44 Albumin 2.3 g/dL (3.2-5.5) L 01/05/18 04:44 Globulin 4.1 g/dL (2.1-4.2) 01/05/18 04:44 Albumin/Globulin Ratio 0.6 (1.0-2.2) L 01/05/18 04:44 Serum HCG, Qual NEGATIVE 12/30/17 11:55 Urine Color YELLOW 12/30/17 13:30 Urine Clarity SL. CLOUDY (CLEAR) 12/30/17 13:30 Urine pH 5.5 PH (5.0-7.5) 12/30/17 13:30 Ur Specific [place] >=1.030 (1.002-1.030) H 12/30/17 13:30 Urine Protein 30 mg/dL (NEGATIVE) H 12/30/17 13:30 Urine Glucose (UA) 250 mg/dL (NEGATIVE) H 12/30/17 13:30 Urine Ketones >=80 mg/dL (NEGATIVE) H 12/30/17 13:30 Urine Occult Blood LARGE (NEGATIVE) H 12/30/17 13:30 Urine Nitrite NEGATIVE (NEGATIVE) 12/30/17 13:30 Urine Bilirubin NEGATIVE (NEGATIVE) 12/30/17 13:30 Urine Urobilinogen 0.2 (NORMAL) E.U./dL (NORMAL) 12/30/17 13:30 Ur Leukocyte Esterase TRACE (NEGATIVE) H 12/30/17 13:30 Urine RBC 11-25 /HPF (0-5) H 12/30/17 13:30 Urine WBC 6-10 /HPF (0-5) H 12/30/17 13:30 Ur Squamous Epith Cells MOD Squamous (<= Few) H 12/30/17 13:30 Urine Bacteria Few /HPF (None Seen) 12/30/17 13:30 Ur Microscopic Review INDICATED 12/30/17 13:30 Urine Culture Comments NOT INDICATED 12/30/17 13:30 Last Dose Date 12/31/17 12/31/17 21:09 Last Dose Time 1600 12/31/17 21:09 Vancomycin Trough 11.6 ug/mL (10.0-20.0) 12/31/17 21:09 Urine Opiates Screen POSITIVE (NEGATIVE) H 12/30/17 13:30 Ur Oxycodone Screen NEGATIVE (NEGATIVE) 12/30/17 13:30 Urine Methadone Screen NEGATIVE (NEGATIVE) 12/30/17 13:30 Ur Propoxyphene Screen NEGATIVE (NEGATIVE) 12/30/17 13:30 Ur Barbiturates Screen NEGATIVE (NEGATIVE) 12/30/17 13:30 Ur Tricyclics Screen NEGATIVE (NEGATIVE) 12/30/17 13:30 Ur Phencyclidine Scrn NEGATIVE (NEGATIVE) 12/30/17 13:30 Ur Amphetamine Screen NEGATIVE (NEGATIVE) 12/30/17 13:30 U Methamphetamines Scrn NEGATIVE (NEGATIVE) 12/30/17 13:30 U Benzodiazepines Scrn NEGATIVE (NEGATIVE) 12/30/17 13:30 Urine Cocaine Screen NEGATIVE (NEGATIVE) 12/30/17 13:30 U Cannabinoids Screen NEGATIVE (NEGATIVE) 12/30/17 13:30 Serum Ketones SMALL (NEGATIVE) H 12/31/17 05:00 Blood Type O POSITIVE 12/30/17 11:55 Antibody Screen NEGATIVE 12/30/17 11:55 - Procedures Procedures: Procedures DETACHMENT AT LEFT 4TH TOE, LOW, OPEN APPROACH (06/30/17) DETACHMENT AT RIGHT 1ST TOE, LOW, OPEN APPROACH (03/14/17) DETACHMENT AT RIGHT 2ND TOE, HIGH, OPEN APPROACH (06/30/17) DETACHMENT AT RIGHT 4TH TOE, HIGH, OPEN APPROACH (06/30/17) INSERT INFUSION DEV IN R INT JUGULAR VEIN, PERC (04/21/16) INSERTION OF INFUSION DEV INTO R SUBCLAV VEIN, PERC APPROACH (03/14/17) INSERTION OF INFUSION DEV INTO SUP VENA CAVA, PERC APPROACH (10/26/17) INSERTION OF INFUSION DEVICE INTO LOWER VEIN, PERC APPROACH (08/13/17) INSERTION OF INFUSION DEVICE INTO R ATRIUM, PERC APPROACH (11/17/17) TRANSFUSE NONAUT RED BLOOD CELLS IN CENTRAL VEIN, PERC (12/01/17) TRANSFUSE NONAUT RED BLOOD CELLS IN PERIPH VEIN, PERC (01/22/17) ULTRASONOGRAPHY OF RIGHT JUGULAR VEINS, GUIDANCE (04/21/16) ABX Reporting Has patient been on IV antibiotics over the past 48 hours?: Yes Current Medications - Current Medications Current Medications: Active Medications Generic Name Dose Route Start Last Admin Trade Name Freq PRN Reason Stop Dose Admin Acetaminophen 650 mg 12/30/17 16:23 01/05/18 04:55 Tylenol PO 650 mg Q4HR PRN Administration Pain or Fever > 38C (100.4F) Amitriptyline HCl 25 mg 12/31/17 21:00 01/04/18 20:30 Elavil PO 25 mg HS SYLVIA Administration Ascorbic Acid 500 mg 01/04/18 09:00 01/05/18 08:10 Vitamin C PO 500 mg DAILY SYLVIA Administration Aspirin 81 mg 12/31/17 09:00 01/05/18 08:10 Ecotrin PO 81 mg DAILY SYLVIA Administration Cilostazol 100 mg 12/31/17 09:00 01/05/18 08:10 Pletal PO 100 mg BID SYLVIA Administration Diltiazem HCl 120 mg 12/31/17 09:00 01/05/18 08:10 Cardizem Cd PO 120 mg DAILY SYLVIA Administration Duloxetine HCl 60 mg 12/31/17 09:00 01/05/18 08:10 Cymbalta PO 60 mg DAILY SYLVIA Administration Ferrous Sulfate 325 mg 12/31/17 11:00 01/05/18 08:10 Feosol PO 325 mg DAILYWM SYLVIA Administration Gabapentin 900 mg 12/31/17 09:00 01/05/18 06:30 Neurontin PO 900 mg TID SYLVIA Administration Guaifenesin 600 mg 01/01/18 17:14 01/05/18 08:10 Mucinex PO 600 mg BID SYLVIA Administration Guaifenesin/Codeine Phosphate 5 ml 01/01/18 17:15 01/05/18 09:29 Robitussin Ac PO 5 ml Q6HR PRN Administration Cough Haloperidol 1 mg 01/02/18 22:14 01/03/18 20:58 Haldol Inj IVP 1 mg Q6H PRN Administration Agitation Heparin Sodium (Beef Lung) 30 - 50 unit 12/31/17 02:52 01/05/18 04:43 IVP 30 unit PRN PRN Administration Central Line Protocol (<24 hr) Heparin Sodium (Beef Lung) 30 - 50 unit 01/03/18 08:05 IVP PRN PRN Central Line Protocol (<24 hr) Hydrocortisone 25 mg 01/03/18 18:13 Anusol-Hc [place] BID PRN Hemorrhoids Famotidine 50 mls @ 100 mls/hr 12/30/17 21:00 01/05/18 08:54 Pepcid 20 Mg/50 Ml IV Infused BID SYLVIA Infusion Levofloxacin 500 mg in 100 mls @ 100 mls/hr 01/03/18 17:00 01/04/18 18:25 Levaquin 500 Mg/100 Ml IV Infused Q24H SYLVIA Infusion Sodium Chloride 500 mls @ 20 mls/hr 01/04/18 13:00 01/04/18 13:00 Normal Saline 0.9% IV 20 mls/hr MAINTENANCE.IV SYLVIA Administration Vancomycin HCl 1 gm/ Sodium 250 mls @ 167 mls/hr 01/05/18 01:00 01/05/18 09:27 Chloride IV 167 mls/hr Q8H SYLVIA Administration Ibuprofen 600 mg 12/31/17 08:17 01/05/18 04:54 Motrin PO 600 mg Q6HR PRN Administration Pain 1 to 4 Insulin Aspart 2 - 10 unit 01/04/18 12:30 01/05/18 08:11 Novolog SUBQ 4 unit 0800,1200,1700,2100 SYLVIA Administration Protocol Insulin Aspart 15 unit 01/04/18 17:00 01/05/18 08:12 Novolog SUBQ 15 unit TIDWM SYLVIA Administration Protocol Insulin Glargine 40 unit 12/31/17 21:00 01/04/18 20:38 Lantus Solostar SUBQ 40 unit QPM SYLVIA Administration Ketorolac Tromethamine 30 mg 01/02/18 21:03 01/04/18 13:25 Toradol Inj (30mg) IVP 01/07/18 21:02 30 mg Q6HR PRN Administration PAIN Lidocaine 1 applic 01/02/18 22:00 01/05/18 08:11 Xylocaine Ointment 5% TOP 1 applic QID SYLVIA Administration Loperamide HCl 2 mg 01/01/18 19:21 01/01/18 20:40 Imodium PO 2 mg QID PRN Administration Diarrhea Lorazepam 0.5 mg 12/31/17 01:54 01/04/18 20:31 Ativan Inj (Vial) IVP 0.5 mg Q2H PRN Administration Anxiety Metoclopramide HCl 10 mg 12/31/17 11:00 01/05/18 06:30 Reglan PO 10 mg ACHS SYLVIA Administration Metoprolol Succinate 25 mg 12/31/17 09:00 01/05/18 08:10 Toprol Xl PO 25 mg BID SYLVIA Administration Multivitamins/Minerals 1 tab 12/31/17 11:00 01/05/18 08:10 Theragran M PO 1 tab DAILYWM SYLVIA Administration Nicotine 1 patch 01/04/18 10:30 01/05/18 08:11 Nicoderm TOP 1 patch DAILY SYLVIA Administration Nystatin 1 applic 12/31/17 13:30 01/05/18 08:11 Mycostatin Cream TOP 1 applic BID SYLVIA Administration Prochlorperazine Edisylate 10 mg 12/30/17 16:23 Compazine Inj IVP Q6HR PRN Nausea / Vomiting Saccharomyces Boulardii 250 mg 12/31/17 17:00 01/05/18 08:10 Florastor PO 250 mg BIDWM SYLVIA Administration Sodium Chloride 10 ml 12/30/17 17:00 01/05/18 08:11 Normal Saline Flush 0.9% IVP 10 ml 0100,0900,1700 SYLVIA Administration Sodium Chloride 10 ml 12/30/17 16:23 01/05/18 04:43 Normal Saline Flush 0.9% IVP 10 ml PRN PRN Administration NEEDED PER PROVIDER ORDERS Sodium Chloride 20 ml 12/31/17 02:52 01/05/18 04:43 Normal Saline Flush 0.9% IVP 20 ml PRN PRN Administration After Blood Draw Throat Lozenges 1 lozenge 01/02/18 02:59 01/05/18 09:30 Cepacol MM 1 lozenge Q2HR PRN Administration Throat pain Tramadol HCl 50 mg 01/03/18 17:21 01/04/18 06:12 Ultram PO 50 mg Q6H PRN Administration MOD PAIN 5-7 Vancomycin HCl 125 mg 01/01/18 21:00 01/05/18 08:10 Vancocin PO 125 mg QID SYLVIA Administration Witch Shantel/Glycerin 1 each 01/03/18 13:21 Tucks TOP PRN PRN ITCHING
[2018-01-05] MEDS: KETOROLAC 30 MG/ML VIAL IVP PRN (11:50)
[2018-01-05] MEDS: LORazepam 2 MG/ML VIAL IVP PRN ×2 (14:01→21:21)
[2018-01-05] MEDS: SODIUM CHLORIDE 0.9% 500 ML IV SCH (17:03)
[2018-01-05] MEDS: levoFLOXacin 500 MG/100 ML 500 MG/100 ML BAG IV SCH (17:09)
[2018-01-05] MEDS: AMITRIPTYLINE 25 MG TABLET PO SCH (20:16)
[2018-01-05] MEDS: HALOPERIDOL 5 MG/ML VIAL IVP PRN (20:20)
[2018-01-05] MEDS: INSULIN GLARGINE 300 UNIT/3 ML PEN SUBQ SCH (20:26)
[2018-01-06] MEDS: VANCOMYCIN INJ 1 GM in SODIUM CHLORIDE 0.9% 250 ML IV SCH ×2 (02:29→08:46)
[2018-01-06] MEDS: ACETAMINOPHEN 325 MG TABLET PO PRN (04:34)
[2018-01-06] MEDS: IBUPROFEN 600 MG TABLET PO PRN (04:34)
[2018-01-06] MEDS: BENZOCAINE/MENTHOL LOZENGE MM PRN (04:35)
[2018-01-06] MEDS: SODIUM CHLORIDE FLUSH 0.9% 10 ML SYRINGE IVP PRN (04:39)
[2018-01-06] MEDS: SODIUM CHLORIDE FLUSH 0.9% 10 ML SYRINGE IVP SCH ×2 (04:39→08:46)
[2018-01-06 05:00] LABS: BASOPHILS % (AUTO) 0.5 %; EOSINOPHILS % (AUTO) 2.7 %; HGB - HEMOGLOBIN 7.8 g/dL (12.0-16.0); LYMPHOCYTES % (AUTO) 32.3 %; MEAN CORPUSCULAR HEMOGLOBIN 23.6 pg (27.0-31.0); MEAN CORPUSCULAR VOLUME 76.2 fL (81.0-99.0); MEAN PLATELET VOLUME 6.3 fL (7.9-10.8); MONOCYTES % (AUTO) 11.7 %; NEUTROPHILS % (AUTO) 52.8 %; PLT - PLATELET COUNT 559 10^3/uL (130-450); RED BLOOD COUNT 3.31 10^6/uL (4.20-5.40); WHITE BLOOD COUNT 6.7 x10^3/uL (4.8-10.8)
[2018-01-06 05:29] LABS: ALBUMIN 2.2 g/dL (3.2-5.5); ALBUMIN/GLOBULIN RATIO 0.6 (1.0-2.2); ALKALINE PHOSPHATASE 106 IU/L (42-121); ALT ALANINE AMINOTRANSFERASE 11 IU/L (10-60); AST ASPARTATE AMINOTRANSFERASE 13 IU/L (10-42); BILIRUBIN,TOTAL 0.4 mg/dL (0.2-1.0); BUN - BLOOD UREA NITROGEN 12 mg/dL (6-20); CALCIUM 8.6 mg/dL (8.5-10.3); CARBON DIOXIDE - CO2 32 mmol/L (21-32); CHLORIDE 101 mmol/L (101-111); CREATININE 0.3 mg/dL (0.4-1.0); GFR - MDRD 252 (>89); GLUCOSE 66 mg/dL (70-100); SODIUM 139 mmol/L (135-145); TOTAL PROTEIN 6.2 g/dL (6.7-8.2)
[2018-01-06 05:30] LABS: ABNORMAL LYMPHS % (MANUAL) 0 %; MAGNESIUM 1.9 mg/dL (1.7-2.8); PHOSPHORUS 4.6 mg/dL (2.5-4.6)
[2018-01-06 05:58] LABS: BAND NEUTROPHILS % (MANUAL) 5 %; EOSINOPHILS # (MANUAL) 0.2 10^3/uL (0-0.7); LYMPHOCYTES # (MANUAL) 1.7 10^3/uL (1.5-3.5); LYMPHOCYTES % (MANUAL) 25 %; MONOCYTES # (MANUAL) 0.4 10^3/uL (0.0-1.0); NEUTROPHILS # (MANUAL) 4.4 10^3/uL (1.5-6.6); NEUTROPHILS % (MANUAL) 61 %
[2018-01-06 05:59] LABS: DIFFERENTIAL COMMENT MANUAL DIFFERENTIAL; PLATELET ESTIMATE, MANUAL INCREASED (>450,000) (NORMAL)
[2018-01-06] MEDS: METOCLOPRAMIDE 10 MG TABLET PO SCH ×2 (06:27→10:28)
[2018-01-06] MEDS: GABAPENTIN 300 MG CAPSULE PO SCH ×2 (06:27→14:11)
[2018-01-06] MEDS: FERROUS SULFATE 325 MG TABLET PO SCH (08:06)
[2018-01-06] MEDS: INSULIN ASPART 300 UNIT/3 ML PEN SUBQ SCH ×4 (08:07→11:56)
[2018-01-06] MEDS: FAMOTIDINE 20 MG/50 ML 50 ML IV SCH (08:10)
[2018-01-06] MEDS: MULTIVITAMIN W/MINERALS TABLET PO SCH (08:11)
[2018-01-06] MEDS: SACCHAROMYCES BOULARDII 250 MG CAPSULE PO SCH (08:12)
[2018-01-06] MEDS: diltiaZEM CD 120 MG CAPSULE PO SCH (08:35)
[2018-01-06] MEDS: guaiFENesin 600 MG TABLET PO SCH (08:35)
[2018-01-06] MEDS: ASPIRIN EC 81 MG TABLET PO SCH (08:35)
[2018-01-06] MEDS: DULoxetine 30 MG CAPSULE PO SCH (08:35)
[2018-01-06] MEDS: CILOSTAZOL 100 MG TABLET PO SCH (08:35)
[2018-01-06] MEDS: ASCORBIC ACID CHEW 500 MG TABLET PO SCH (08:35)
[2018-01-06] MEDS: VANCOMYCIN 125 MG CAPSULE PO SCH (08:36)
[2018-01-06] MEDS: LIDOCAINE OINTMENT 5% 35.44 GM TUBE TOP SCH ×2 (08:41→13:08)
[2018-01-06] MEDS: NYSTATIN CREAM 15 GM TUBE TOP SCH (08:41)
[2018-01-06] MEDS: NICOTINE 14 MG PATCH TOP SCH (09:40)
[2018-01-06] MEDS: METOPROLOL SUCCINATE 25 MG TABLET PO SCH (09:41)
[2018-01-06] MEDS ORDERED: SODIUM CHLORIDE INHALATION 3 ML NEB ONE (11:11)
[2018-01-06] MEDS: LORazepam 2 MG/ML VIAL IVP PRN (11:44)
[2018-01-06] MEDS ORDERED: SULFAMETH/TRIMETH DS 800/160 MG TABLET PO SCH (12:00)
[2018-01-06] MEDS ORDERED: levoFLOXacin 250 MG TABLET PO SCH (13:00)
--- NOTE | 2018-01-06 13:48 | Discharge Plan ---
Discharge Plan Disposition: 01 Home, Self Care Condition: Stable Prescriptions: Ibuprofen [Motrin] 600 mg PO Q6HR PRN #60 tablet PRN Reason: Pain 1 to 4 Amitriptyline [Elavil] 25 mg PO HS #20 tablet Aspirin [Aspirin EC] 81 mg PO DAILY #30 tablet. Blood Sugar Diagnostic [Glucometer Strips] 1 each ACHS #100 strip Blood-Glucose Meter [Glucometer] 1 each [facility] #1 each Cilostazol [Pletal] 100 mg PO BID #60 tablet cloNIDine [Catapres] 0.1 mg PO BID #60 tablet diltiaZEM CD [Cardizem Cd] 120 mg PO DAILY #30 capsule DULoxetine [Cymbalta] 60 mg PO DAILY #30 capsule HYDROmorphone [Dilaudid] 2 mg PO DAILY PRN #4 tablet PRN Reason: Severe Pain Insulin Aspart [NovoLOG] 15 unit SUBQ TIDWM #1 pen Insulin Glargine [Lantus Solostar] 40 unit SUBQ QPM #3 pen levoFLOXacin [Levaquin] 500 mg PO DAILY@1000 #14 tablet Metoclopramide [Reglan] 10 mg PO ACHS #60 tablet Metoprolol Succinate [Toprol Xl] 25 mg PO BID #60 tablet Sulfamethox/Trimeth 800/160 [Bactrim Ds] 2 tab PO BID #28 tablet traMADol [Ultram] 50 mg PO Q6H PRN #10 tablet PRN Reason: MOD PAIN 5-7 Witch Shantel/Glycerin [Tucks] 1 each TOP PRN PRN #10 med..pad PRN Reason: Itching Diet: Diabetic Activity Restrictions: Activity as Tolerated Shower Restrictions: No Additional Instructions or Follow Up instructions: Resume your pre-hospital medications. Take the new antibiotic pills for 1 week. Do dressing changes daily, as per the wound care instructions. Follow-Up Care: [facility] (Please start coming to the Clinic here for managing your diabetes.) No Smoking: If you smoke, Please STOP! Call for help.
[2018-01-06 15:41] VITALS: BP 120/82
--- NOTE | 2018-01-08 18:53 | DISCHARGE SUMMARY ---
Physician: Jayshree Vides MD DATE OF ADMISSION: 12/30/2017 DATE OF DISCHARGE: 01/06/2018 HISTORY OF PRESENT ILLNESS: This is a 37-year-old white female who has a history of homelessness, methamphetamine abuse, type 1 diabetes with multiple admissions for DKA because of noncompliance, history of peripheral vascular disease with toe amputations, osteomyelitis requiring toe amputations, history of CAD, hypertension, psychiatric disorder (presumably borderline personality). She presented again with obtundation and a DKA exacerbation and was placed in the ICU. DISCHARGE DIAGNOSES: 1. Diabetic ketoacidosis. She was put on DKA protocol using an insulin drip, IV saline, potassium replacement and transition to Lantus and regular insulin at meal times along with a sliding scale insulin coverage with fingerstick glucose checks when she was able to awaken and take a carb-controlled diet. On this admission, her HbA1c was not repeated, but in the past they had run 13-14. 2. Bacteremia due to group B strep. The patient's etiology for DKA was presumed to be from an infection as she had recent axillary abscesses incised and drained at [facility] and the areas were draining purulent material. She was fully cultured and blood cultures grew group B strep. Her antibiotics were adjusted accordingly. She was discharged to [facility] to finish a 10-day total course with p.o. Bactrim DS and Levaquin. 3. Axillary abscesses bilaterally and of the left arm. Wound cultures grew MRSA and Strep. Her IV antibiotics were adjusted accordingly. While here she had a new abscess develop on the left arm, which was drained by the surgeon. The bacteria were sensitive to the Bactrim-DS and Levaquin, on which she was discharged. 4. Health Care Associated Pneumonia. At admission,her chest x-ray showed an infiltrate and she was treated empirically for hospital-acquired pneumonia. As she awoke, she had a wet cough, required Mucinex and Robitussin for management. The Bactrim-DS and Levaquin were also appropriate for completing a course of treatment for HCAP. 5. Gastrointestinal bleed. The ambulance reported that she had hematemesis prior to bringing her to the ER. There were no further episodes of hematemesis or any melena. She was kept on medications for gastric ulcer prophylaxis. Her admission hemoglobin was 12.4, which dropped to 7.2 because of her required hydration. She received 1 unit of blood to achieve a hemoglobin of 8.8 and Hgb was 7.8 at the time of discharge. Iron replacement was also prescribed at discharge. 6. Methamphetamine abuse. She has a history of abuse. Her admission toxicology screen showed positive opiates, but no methamphetamine on this admission. 7. Homeless person. 8. Coronary artery disease history. The patient had no complaints of angina or heart failure while here. 9. Peripheral vascular disease. The patient was kept on her Pletal and aspirin while here. 10. History of toe amputations. The previous amputation sites appeared clean and dry. There was one new area of black eschar at the tip of one toe which was slightly tender, it did not change during this admission. CODE STATUS: FULL CODE. LABORATORY AND IMAGING: Reviewed and summarized above. ALLERGIES: CODEINE, HYDROCODONE, NITROFURANTOIN, PAPER TAPE. DISCHARGE MEDICATIONS: 1. At the time of discharge Motrin 600 mg p.r.n. 2. Elavil 25 mg at bedtime. 3. Baby aspirin daily. 4. Pletal 100 mg b.i.d. 5. Clonidine 0.1 mg b.i.d. 6. Diltiazem CD 120 mg daily. 7. Cymbalta 60 mg daily. 8. Gabapentin 900 mg t.i.d. 9. Dilaudid 2 mg p.r.n., 4 tablets were given 10. Lantus insulin 40 units q.p.m. and aspart insulin 15 units subcutaneous t.i.d. with meals and a sliding scale with glucose checks. 11. Levaquin 500 mg b.i.d. for 1 week. 12. Bactrim-DS 2 tablets b.i.d. for 1 week 13. Reglan 10 mg p.o. before meals and at bedtime. 14. Toprol-XL 25 mg b.i.d. 15. Mycostatin cream topically 16. Ditropan 5 mg b.i.d. 17. Ultram 50 mg q.6 hours p.r.n. pain. 18. Tucks pads p.r.n. CONDITION AT DISCHARGE: Stable. PHYSICAL EXAMINATION: VITAL SIGNS: Stable. Blood pressure 120/82, heart rate 88 in sinus rhythm, afebrile, room air saturation 93%. HEENT: Showed edentulous, Moist oral mucosa. NECK: Without JVD or carotid bruits. CHEST: Clear. HEART: Sounds normal. ABDOMEN: Soft. EXTREMITIES: No edema. Several toes are amputated. NEUROLOGIC: Intact. FOLLOWUP: The patient has been advised all of her admissions to establish with a new PCP and she has been noncompliant. Time required to complete this entire discharge, chart review, prescription orders: 60 minutes. TD: 01/08/2018 17:56 [facility]US[facility]abelle
== END 2018-01-06 15:00 | disposition home or self-care (01) | DRG 987 ==
LOC: EDUNIT# → ED 10:15 → ICU 15:17 → ED 16:17
PROVIDERS: ADMIT Internal Medicine; ATTEND Internal Medicine
PROC: 0X940ZZ Drainage of Right Axilla, Open Approach (ICD-10-PCS; principal; 2018-01-03)
PROC: 0J9H0ZZ Drainage of Left Lower Arm Subcutaneous Tissue and Fascia, Open Approach (ICD-10-PCS; 2018-01-03)
DX: E10.10 Type 1 diabetes mellitus with ketoacidosis without coma (principal); J18.1 Lobar pneumonia, unspecified organism; T33.832A Superficial frostbite of left toe(s), initial encounter; L02.412 Cutaneous abscess of left axilla; L02.411 Cutaneous abscess of right axilla; L02.414 Cutaneous abscess of left upper limb; R78.81 Bacteremia; K92.0 Hematemesis; N17.9 Acute kidney failure, unspecified; A04.72 Enterocolitis due to Clostridium difficile, not specified as recurrent; B95.62 Methicillin resistant Staphylococcus aureus infection as the cause of diseases classified elsewhere; B95.1 Streptococcus, group B, as the cause of diseases classified elsewhere; I25.10 Atherosclerotic heart disease of native coronary artery without angina pectoris; E10.51 Type 1 diabetes mellitus with diabetic peripheral angiopathy without gangrene; T38.3X6A Underdosing of insulin and oral hypoglycemic [antidiabetic] drugs, initial encounter; I10 Essential (primary) hypertension; F15.10 Other stimulant abuse, uncomplicated; Y95 Nosocomial condition; F60.3 Borderline personality disorder; F32.9 Major depressive disorder, single episode, unspecified; F41.0 Panic disorder [episodic paroxysmal anxiety]; E10.42 Type 1 diabetes mellitus with diabetic polyneuropathy; D64.9 Anemia, unspecified; X31.XXXA Exposure to excessive natural cold, initial encounter; Y92.480 Sidewalk as the place of occurrence of the external cause; E10.621 Type 1 diabetes mellitus with foot ulcer; L97.519 Non-pressure chronic ulcer of other part of right foot with unspecified severity; F17.210 Nicotine dependence, cigarettes, uncomplicated; E87.8 Other disorders of electrolyte and fluid balance, not elsewhere classified; Z16.29 Resistance to other single specified antibiotic; I25.2 Old myocardial infarction; Z59.0 Homelessness; Z79.82 Long term (current) use of aspirin; Z79.899 Other long term (current) drug therapy; Z91.19 Patient's noncompliance with other medical treatment and regimen; Z89.411 Acquired absence of right great toe; Z89.422 Acquired absence of other left toe(s); Z89.421 Acquired absence of other right toe(s)
CPT/HCPCS: 36415; 36556; 71045; 71250; 80048; 80053; 80202; 80306; 81001; 81003; 82009; 82040; 82330; 82803; 82947; 83605; 83735; 84100; 84484; 84703; 85025; 86850; 86900; 86901; 87040; 87070; 87086; 87150; 87181; 87205; 93306; 96361; 96365; 96367; 96372; 96375; 99284

== ENCOUNTER 2018-01-10 14:05 | Outpatient (CLI) | payer MEDICAID | END 2018-01-10 14:06 | disposition short-term general hospital (02) | LOC: EMS 14:05 | PROVIDERS: ATTEND Surgery | DX: M79.671 Pain in right foot (principal); M79.622 Pain in left upper arm; M79.621 Pain in right upper arm; R73.09 Other abnormal glucose | CPT/HCPCS: A0425; A0429; A0999 ==

== ENCOUNTER 2018-01-13 10:03 | Outpatient (CLI) | payer MEDICAID | END 2018-01-13 10:04 | disposition critical access hospital (66) | LOC: EMS 10:03 | PROVIDERS: ATTEND Surgery | DX: T69.9XXA Effect of reduced temperature, unspecified, initial encounter (principal); R11.2 Nausea with vomiting, unspecified; X31.XXXA Exposure to excessive natural cold, initial encounter | CPT/HCPCS: A0425; A0427; A0999 ==

== ENCOUNTER 2018-01-13 10:19 | Inpatient (IN) | payer MEDICAID ==
[2018-01-13] MEDS ORDERED: SODIUM CHLORIDE 0.9% 1,000 ML IV ONE (10:27)
--- NOTE | 2018-01-13 10:30 | ED Physician Documentation ---
History of Present Illness - Stated complaint Stated Complaint: VOMITING - Chief complaint Chief Complaint: Abd Pain - Additonal information Additional information: hx from EMS pt and EMR 37 f well known to our ER and [facility] poorly controlled IDDM also meth user numerous admits for DKA recent axillary and sincere abscesses as well, drained and cx grew out several diff bacteria was admitted here 12/30-01/08 for DKA sepsis axillary asbcess pna GIB, then admitted to [facility] 01/10-01/12, was dced yesterday [place] vomiting pt denies any injury denies pain except right 3rd toe req ice chips Review of Systems Constitutional: denies: Fever Cardiac: denies: Chest pain / pressure Respiratory: denies: Dyspnea, Cough GI: reports: Vomiting. 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 01/06/18 01/13/18 Cilostazol [Pletal] 100 mg PO BID #60 tablet 01/06/18 01/13/18 DULoxetine [Cymbalta] 60 mg PO DAILY #30 capsule 01/06/18 01/13/18 HYDROmorphone [Dilaudid] 2 mg PO DAILY PRN #4 tablet 01/06/18 01/13/18 Ibuprofen [Motrin] 600 mg PO Q6HR PRN #60 tablet 01/06/18 01/13/18 Insulin Aspart [NovoLOG] 15 unit SUBQ TIDWM #1 pen 01/06/18 01/13/18 Insulin Glargine [Lantus Solostar] 40 unit SUBQ QPM #3 pen 01/06/18 01/13/18 Metoclopramide [Reglan] 10 mg PO ACHS #60 tablet 01/06/18 01/13/18 Metoprolol Succinate [Toprol Xl] 25 mg PO BID #60 tablet 01/06/18 01/13/18 Sulfamethox/Trimeth 800/160 2 tab PO BID #28 tablet 01/06/18 01/13/18 [Bactrim Ds] cloNIDine [Catapres] 0.1 mg PO BID #60 tablet 01/06/18 01/13/18 diltiaZEM CD [Cardizem Cd] 120 mg PO DAILY #30 capsule 01/06/18 01/13/18 levoFLOXacin [Levaquin] 500 mg PO DAILY@1000 #14 tablet 01/06/18 01/13/18 traMADol [Ultram] 50 mg PO Q6H PRN #10 tablet 01/06/18 01/13/18 - Allergies Allergies/Adverse Reactions: Allergies Allergy/AdvReac Type Severity Reaction Status Date / Time codeine Allergy Hives Verified 01/13/18 10:25 hydrocodone Allergy Hives Verified 01/13/18 10:25 morphine Allergy Itching Verified 01/13/18 10:25 milk AdvReac Cramps Verified 01/13/18 10:25 nitrofurantoin AdvReac Headache Verified 01/13/18 10:25 [From Macrobid] PAPER TAPE AdvReac Unknown Uncoded 01/13/18 10:25 - Social History Does the pt smoke?: Yes Smoking Status: Current every day smoker Does the pt drink ETOH?: No Does the pt have substance abuse?: Yes - Immunizations Immunizations are current?: Yes - POLST Patient has POLST: No POLST Status: Full Code PD ED PE NORMAL - Vitals Vital signs reviewed: Yes (tachy hypothermic) - General General: Alert and oriented X 3 - HEENT HEENT: PERRL - Neck Neck: Supple, no meningeal sign - Cardiac Cardiac: RRR (tachy) - Respiratory Respiratory: Clear bilaterally - Abdomen Abdomen: Soft, Non tender - Derm Derm: Normal color, Other (axillary abscesses much improved) - Extremities Extremities: Other (both feet are cold to touch but with cap refill, R third toe with healed ulcer) - Neuro Neuro: Alert and oriented X 3 Results - Vitals Vitals: Vital Signs - 24 hr 11/22/18 10:20 Temperature 36.4 C L Heart Rate 120 H Respiratory 16 Rate Blood Pressure 114/69 O2 Saturation 98 Oxygen O2 Source [Without Activity] Room air O2 Source Room air - EKG (time done) 1314 Rate: Rate (enter#) (122) Rhythm: Sinus tachycardia Intervals: Prolonged QT (borderline) Ischemia: Non specific changes - Labs Labs: Laboratory Tests 01/13/18 01/13/18 01/13/18 10:47 10:47 11:35 VBG pH 7.132 L VBG pCO2 29.0 L VBG pO2 39.3 VBG HCO3 9.5 L VBG Total CO2 10.4 L VBG O2 Saturation 60.2 VBG Base Excess -18.3 L Sodium 125 L Potassium 5.1 H Chloride 91 L Carbon Dioxide 8 L* Anion Gap 26.0 H BUN 37 H Creatinine 1.0 Estimated GFR (MDRD) 63 L Glucose 722 H* Calcium 9.2 Serum HCG, Qual NEGATIVE Urine Color YELLOW Urine Clarity CLEAR Urine pH 5.0 Ur Specific [place] 1.020 Urine Protein NEGATIVE Urine Glucose (UA) >=1000 H Urine Ketones >=80 H Urine Occult Blood NEGATIVE Urine Nitrite NEGATIVE Urine Bilirubin NEGATIVE Urine Urobilinogen 0.2 (NORMAL) Ur Leukocyte Esterase NEGATIVE Ur Microscopic Review NOT INDICATED Urine Culture Comments NOT INDICATED Serum Ketones SMALL H PD MEDICAL DECISION MAKING - ED course ED course: EMS had obtained IV access so no central line needed for ER purposes pt on tele and no prolonged QT - so gave zofran for NV after 2nd dose of zofran did get EKG as well to measure - borderline QT/ will hold further zofran, no ischemia gave ofirmev for pain in DKA again 1 L NS and insulin bolus gtt spoke to Dr Mathews who will admit her to the ICU Departure - Departure Disposition: 66 [facility] DC/Xfer Clinical Impression: DKA (diabetic ketoacidoses) Qualifiers: Diabetes mellitus type: type 1 Diabetes mellitus complication detail: without coma Qualified Code(s): E10.10 - Type 1 diabetes mellitus with ketoacidosis without coma Condition: Fair Discharge Date/Time: 01/13/18 13:20
[2018-01-13] MEDS ORDERED: ONDANSETRON 4 MG/2 ML VIAL IVP STA ×2 (10:40→12:09)
[2018-01-13] MEDS ORDERED: ONDANSETRON 4 MG/2 ML VIAL ONE (10:42)
[2018-01-13 10:52] LABS: VBG BASE EXCESS -18.3 mmol/L (-2 - +2); VBG PH 7.132 (7.31-7.41); VBG PO2 39.3 mmHg (25-47); VBG TOTAL CO2 10.4 mmol/L (24-29)
[2018-01-13 11:02] LABS: KETONES, SERUM (ACETEST) SMALL (NEGATIVE)
[2018-01-13] MEDS ORDERED: INSULIN REGULAR HUMAN 100 UNIT in SODIUM CHLORIDE 0.9% 100ML 99 ML IV STA (11:06)
[2018-01-13] MEDS ORDERED: INSULIN REGULAR HUMAN 100 UNIT/1 ML 10 ML MDV IVP STA (11:06)
[2018-01-13 11:19] LABS: HCG,QUALITATIVE BLOOD NEGATIVE
[2018-01-13 11:23] LABS: BUN - BLOOD UREA NITROGEN 37 mg/dL (6-20); CALCIUM 9.2 mg/dL (8.5-10.3); CHLORIDE 91 mmol/L (101-111); GFR - MDRD 63 (>89); SODIUM 125 mmol/L (135-145)
[2018-01-13 11:24] LABS: CARBON DIOXIDE - CO2 8 mmol/L (21-32); GLUCOSE 722 mg/dL (70-100)
[2018-01-13] MEDS ORDERED: IBUPROFEN 600 MG TABLET PO PRN (11:53)
[2018-01-13] MEDS ORDERED: PROCHLORPERAZINE 10 MG/2 ML VIAL IVP PRN (11:59)
[2018-01-13] MEDS ORDERED: ACETAMINOPHEN 325 MG TABLET PO PRN (11:59)
[2018-01-13] MEDS ORDERED: ONDANSETRON 4 MG/2 ML VIAL IVP PRN (11:59)
[2018-01-13] MEDS ORDERED: ALBUTEROL NEB 2.5 MG/3 ML INH PRN (11:59)
[2018-01-13] MEDS ORDERED: PROMETHAZINE 25 MG/1 ML VIAL IM PRN (11:59)
[2018-01-13 12:06] LABS: BILIRUBIN,URINE NEGATIVE (NEGATIVE); CLARITY,URINE CLEAR (CLEAR); GLUCOSE, URINE (UA) >=1000 mg/dL (NEGATIVE); KETONES,URINE (UA) >=80 mg/dL (NEGATIVE); LEUKOCYTE ESTERASE, URINE NEGATIVE (NEGATIVE); NITRITE,URINE NEGATIVE (NEGATIVE); OCCULT BLOOD,URINE NEGATIVE (NEGATIVE); PROTEIN,URINE NEGATIVE (NEGATIVE); UROBILINOGEN,URINE 0.2 (NORMAL) E.U./dL (NORMAL)
[2018-01-13] MEDS ORDERED: ACETAMINOPHEN 1,000 MG/100 ML 100 ML IV STA (12:09)
--- NOTE | 2018-01-13 12:38 | HISTORY & PHYSICAL EXAMINATION ---
Chief Complaint - Chief Complaint Chief Complaint: Nausea and vomiting History of Present Illness - Admitted From Admitted From:: Emergency Department - History Obtained From Records Reviewed: Yes History obtained from: Patient Exam Limitations: None - History of Present Illness HPI Comment/Other: Patient is a very unfortunate 37-year-old female with a past medical history significant for insulin-dependent diabetes mellitus type 1 with recurrent episodes of diabetic ketoacidosis secondary to noncompliance with medication, methamphetamine abuse, personality disorder, bipolar, polysubstance abuse, ADHD, hypertension, sinus tachycardia, homelessness, fibromyalgia, chronic pain, osteomyelitis status post multiple toe amputations with 16 admissions so far in 2018 at [facility] along with multiple admissions at [facility] for diabetic ketoacidosis who presented to the emergency department with chief complaint of nausea vomiting and generalized weakness. The patient was most recently hospitalized at [facility] from 12/30/2017 until 01/08/2018 at which time the patient presented with diabetic ketoacidosis secondary to bacteremia and bilateral axillary abscesses. At that time the patient was treated with IV antibiotics underwent I&D of bilateral axilla and treated with insulin drip for her diabetic ketoacidosis. At discharge the patient was discharged home with oral antibiotics for an additional 10 days. The patient states that once she left the hospital she became ill over the next few days and had to go to [facility] where she was admitted for pneumonia and diabetic ketoacidosis. The patient was treated and discharged from [facility] yesterday. The patient states upon returning back to her tent she proceeded to use methamphetamine and cannot remember if she took her insulin or not. She states that she ate a salad and some beef jerky. She states that this morning she did not feel well. She felt nauseated and began to vomit. She states that she was having a hard time standing due to generalized weakness. She states that she felt extremely cold as she was sleeping outside and wrapped in a blanket. Patient was found near her tent where she was nauseated, vomiting and hunched over. The patient was brought by EMS to the emergency department. The patient states that she hurts all over and she feels extremely thirsty. The patient denies any headaches, blurred vision, runny nose, sore throat, nasal congestion, difficulty swallowing, chest pain, shortness of air, orthopnea, PND, increased lower extremity swelling, joint swelling, neck stiffness, changes in her appetite, night sweats or any focal neurologic deficits. On presentation to the emergency department the patient was afebrile, tachycardic with a heart rate of 120 normotensive and not in any respiratory distress. The patient however did appear quite drowsy and looked to be disheveled and in significant distress. The patient underwent routine lab work which revealed a hyponatremia of 125, mild hyper kalemia of 5.1 with a anion gap of 26 and blood glucose of 722. The patient's pH was 7.13 with a bicarb of 9.5. The patient had positive serum ketones and appeared to be in diabetic ketoacidosis. In the emergency department the patient was given IV fluids and placed on an insulin drip. The patient was admitted to the intensive care unit for diabetic ketoacidosis. The patient did undergo placement of a central line. History - Past Medical History Cardiovascular: reports: Hypertension, High cholesterol, Peripheral Vascular Disease, [place] Respiratory: reports: None Neuro: reports: Peripheral neuropathy, Other Endocrine/Autoimmune: reports: Type 1 diabetes GI: reports: Pancreatitis SUCTION OPERATOR: reports: None : reports: None HEENT: reports: None Psych: reports: Depression, Anxiety, Panic attacks Musculoskeletal: reports: Fibromyalgia Derm: reports: None MRSA Hx?: Yes - Past Surgical History General: reports: Cholecystectomy HEENT: reports: Tonsil/Adenoidectomy - Family & Social History Family History: Father: , CAD, CVA/TIA, Hyperlipidemia, Hypertension, [place] Social History Notes: The patient is homeless and lives in a tent. 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 The patient has 2 children who live with her stepmother as she has been unable to get her life together enough to be able to help raise them. She has been living on [facility] for the last 4 years prior to that she lived in [place]. She does smoke a few cigarettes a day denies any alcohol use. She does continue to use methamphetamine. - Substance History Use: Uses substance without health or social issues: NONE - POLST Patient has POLST: No POLST Status: Full Code Meds/Allgy - Home Medications Home Medications: Ambulatory Orders Medication Instructions Recorded Confirmed Amitriptyline [Elavil] 25 mg PO HS #20 tablet 01/06/18 01/13/18 Aspirin [Aspirin EC] 81 mg PO DAILY #30 tablet. 01/06/18 01/13/18 Cilostazol [Pletal] 100 mg PO BID #60 tablet 01/06/18 01/13/18 DULoxetine [Cymbalta] 60 mg PO DAILY #30 capsule 01/06/18 01/13/18 HYDROmorphone [Dilaudid] 2 mg PO DAILY PRN #4 tablet 01/06/18 01/13/18 Ibuprofen [Motrin] 600 mg PO Q6HR PRN #60 tablet 01/06/18 01/13/18 Insulin Aspart [NovoLOG] 15 unit SUBQ TIDWM #1 pen 01/06/18 01/13/18 Insulin Glargine [Lantus Solostar] 40 unit SUBQ QPM #3 pen 01/06/18 01/13/18 Metoclopramide [Reglan] 10 mg PO ACHS #60 tablet 01/06/18 01/13/18 Metoprolol Succinate [Toprol Xl] 25 mg PO BID #60 tablet 01/06/18 01/13/18 Sulfamethox/Trimeth 800/160 2 tab PO BID #28 tablet 01/06/18 01/13/18 [Bactrim Ds] cloNIDine [Catapres] 0.1 mg PO BID #60 tablet 01/06/18 01/13/18 diltiaZEM CD [Cardizem Cd] 120 mg PO DAILY #30 capsule 01/06/18 01/13/18 levoFLOXacin [Levaquin] 500 mg PO DAILY@1000 #14 tablet 01/06/18 01/13/18 traMADol [Ultram] 50 mg PO Q6H PRN #10 tablet 01/06/18 01/13/18 - Allergies Allergies/Adverse Reactions: Allergies Allergy/AdvReac Type Severity Reaction Status Date / Time codeine Allergy Hives Verified 01/13/18 10:25 hydrocodone Allergy Hives Verified 01/13/18 10:25 morphine Allergy Itching Verified 01/13/18 10:25 milk AdvReac Cramps Verified 01/13/18 10:25 nitrofurantoin AdvReac Headache Verified 01/13/18 10:25 [From Macrobid] PAPER TAPE AdvReac Unknown Uncoded 01/13/18 10:25 Review of Systems - Other Findings Other Findings: A comprehensive review of systems was performed the pertinent positives and negatives are stated above in the HPI and the remainder of the review of systems is negative. Prior Level of Functionality: Patient is homeless and although she does perform all her activities of daily living independently she has very poor support and makes very poor decisions. She continues to use methamphetamines and participates in other high risk behaviors. Exam - Vital Signs Reviewed Vital Signs: Yes Vital Signs: Vital Signs x48h Temp Pulse Resp BP Pulse Ox 01/13/18 10:20 36.4 C L 120 H 16 114/69 98 - Physical Exam General Appearance: positive: Mild distress (Pain), Lethargic, Other (Appears cachetic and desheveled) Eyes Bilateral: positive: Normal inspection, PERRL, EOMI, No lid inflammation, Conjunctivae nml, No scleral icterus ENT: positive: ENT inspection nml, Pharynx nml, Dry mucous membranes. negative: Purulent nasal drainage, Pharyngeal erythema, Oral lesions Neck: positive: Nml inspection, Thyroid nml, No JVD, Trachea midline. negative: Thyromegaly, Lymphadenopathy (R), Lymphadenopathy (L), Stiff neck, Carotid bruit, Tracheal deviation Respiratory: positive: Chest non-tender, No respiratory distress, Wheezes (Scattered), Rhonchi (Right mid lung) Cardiovascular: positive: No murmur, No gallop, Tachycardia Peripheral Pulses: positive: 2+ Abdomen: positive: Non-tender, No organomegaly, Nml bowel sounds, No distention. negative: Tenderness, Guarding, Rebound, Hepatomegaly Back: positive: Nml inspection. negative: CVA tenderness (R), CVA tenderness (L) Skin: positive: No rash, Warm, Dry, Other (Scars in bilateral axilla from I&Ds which appear to be healing well.). negative: Cyanosis, Pallor Extremities: positive: Non-tender, Full ROM, Nml appearance, No pedal edema, Other (Bilateral Toe amputations which do not appear infected) Neurologic/Psychiatric: positive: Oriented x3, CN's nml (2-12), Motor nml, Sensation nml, Mood/affect nml Conclusion/Plan - Problem List (1) DKA (diabetic ketoacidoses) Conclusion/Plan: Patient presented with diabetic ketoacidosis secondary to noncompliance with medication. On presentation the patient's pH is 7.13, she has positive serum ketones and serum bicarb is 9.5 with an anion gap of 26 and blood glucose of 722. Plan: Admit to intensive care unit N.p.o. Placed on insulin drip at 1 unit/kg/h Give IV fluids Check BMP every 2 hours Monitor anion gap Once anion gap is closed we will give subcutaneous Lantus, place on sliding scale nutritional insulin and start diabetic diet and stop insulin drip 1 hour later. Qualifiers: Diabetes mellitus type: type 1 Diabetes mellitus complication detail: without coma Qualified Code(s): E10.10 - Type 1 diabetes mellitus with ketoacidosis without coma (2) HANSA (acute kidney injury) Conclusion/Plan: The patient's creatinine is elevated on presentation up to 1.1 her baseline is 0.3. The patient has acute kidney injury secondary to prerenal azotemia from DKA and dehydration. The patient will be given IV fluids and we will continue to monitor her creatinine. Patient will not receive any nephrotoxic agents. (3) Bacteremia Conclusion/Plan: The patient had bacteremia on her previous hospitalization with MRSA and beta hemolytic strep group B. The patient's source of bacteremia was bilateral axillary abscesses. The abscesses were I&D and blood cultures revealed that the bacteria were susceptible to oral Bactrim and Levaquin. The patient was discharged on p.o. Bactrim and Levaquin for 10 days on 01/08/2018 currently this is day 5 of 10. Plan: Continue Levaquin and Bactrim for 5 more days to complete treatment for bacteremia. (4) HCAP (healthcare-associated pneumonia) Conclusion/Plan: The patient was recently hospitalized at [facility] for healthcare associated pneumonia. The patient was just discharged yesterday. The patient's chest x-ray continues to show a masslike consolidation in the right middle lobe of the lung. This was also seen on her most recent hospitalization and she underwent a CT of her chest which revealed a non-cavitating opacification in the lateral segment of the right middle lobe with a small rim of much lesser infiltrate in the adjacent medial segment. The appearance favored an inflammatory process, and/or complication following a lung contusion rather than mass lesion. The x-ray today shows this is improving. The patient was also hospitalized at [facility] and treated for pneumonia. Plan: We will continue treatment with oral Levaquin and Bactrim which should also cover treatment for healthcare associated pneumonia which patient was just discharged from [facility] for. She is going to be treated for another 5 days which should cover treatment duration. (5) High anion gap metabolic acidosis Conclusion/Plan: Patient has high anion gap metabolic acidosis secondary to DKA. Patient will be treated for DKA and we believe this will resolve with treatment. (6) Hypertension Qualifiers: Hypertension type: essential hypertension Qualified Code(s): I10 - Essential (primary) hypertension (7) Hyponatremia Conclusion/Plan: The patient resents with hyponatremia with sodium of 125. This is partly pseudohyponatremia secondary to hyperglycemia but patient also has some component of hypovolemic hyponatremia secondary to dehydration. Patient will be given IV fluids and treated for her DKA with an insulin drip. We will continue to monitor her sodium. (8) Methamphetamine abuse Conclusion/Plan: The patient has a history of methamphetamine abuse. She admits to using me thamphetamine yesterday. We will check a urine tox screen. The patient will likely go through withdrawal while she is hospitalized. For withdrawal the patient will be given clonidine as needed and Ativan as needed. Patient will be counseled on adverse effects of methamphetamine abuse. (9) Tobacco abuse disorder Conclusion/Plan: The patient continues to smoke cigarettes and will have nicotine patch placed while she is hospitalized. The patient was counseled on need to quit. 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 The patient is treated with amitriptyline and Cymbalta we will continue these medications while the patient is hospitalized and give her Ativan as needed. - Lab Results Lab results reviewed: Yes Fish Bones: 01/13/18 15:59 Other Lab Results: Laboratory Tests 01/13/18 01/13/18 01/13/18 10:47 10:47 11:35 VBG pH 7.132 L VBG pCO2 29.0 L VBG pO2 39.3 VBG HCO3 9.5 L VBG Total CO2 10.4 L VBG O2 Saturation 60.2 VBG Base Excess -18.3 L Sodium 125 L Potassium 5.1 H Chloride 91 L Carbon Dioxide 8 L* Anion Gap 26.0 H BUN 37 H Creatinine 1.0 Estimated GFR (MDRD) 63 L Glucose 722 H* Calcium 9.2 Serum HCG, Qual NEGATIVE Urine Color YELLOW Urine Clarity CLEAR Urine pH 5.0 Ur Specific [place] 1.020 Urine Protein NEGATIVE Urine Glucose (UA) >=1000 H Urine Ketones >=80 H Urine Occult Blood NEGATIVE Urine Nitrite NEGATIVE Urine Bilirubin NEGATIVE Urine Urobilinogen 0.2 (NORMAL) Ur Leukocyte Esterase NEGATIVE Ur Microscopic Review NOT INDICATED Urine Culture Comments NOT INDICATED Serum Ketones SMALL H - Diagnostic Imaging Results Diagnostic Imaging Results: positive: Final report reviewed Diagnostic Imaging Results Comments: Chest x-ray Impression: 1. Interval slightly decreased masslike consolidation in the peripheral right middle lobe. 2. Persistent small right pleural effusion. 3. New left IJ CVC terminating in the right atrium approximately 1.5 cm beyond the cavoatrial junction. - EKG Results EKG Interpreted Independently: Yes Core Measures - Anticipated LOS I expect patient to be DC'd or transferred within 96 hours.: Yes - DVT/VTE - Prophylaxis VTE/DVT Prophylaxis med ordered at admit?: Yes
[2018-01-13 12:45] LABS: GLUCOSE 683 mg/dL (70-100); MAGNESIUM 2.6 mg/dL (1.7-2.8)
[2018-01-13 12:46] LABS: KETONES, SERUM (ACETEST) MODERATE (NEGATIVE)
[2018-01-13] MEDS ORDERED: HALOPERIDOL 5 MG/ML VIAL IVP SCH (13:29)
[2018-01-13] MEDS: INSULIN REGULAR HUMAN 100 UNIT in SODIUM CHLORIDE 0.9% 100ML 99 ML IV SCH ×2 (13:41→19:45)
--- NOTE | 2018-01-13 15:21 | XRAY Report ---
Reason: CVC Placement Procedure Date: 01/13/2018 Accession Number: [id number] / [id number] Procedure: XR - Chest for Line Placement CPT Code: FULL RESULT: EXAM: CHEST RADIOGRAPHY EXAM DATE: 01/13/2018 03:08 PM. CLINICAL HISTORY: Central venous catheter placement. COMPARISON: CHEST 1 VIEW 01/04/2018 2:10 PM CHEST W/O 01/04/2018 7:35 PM. TECHNIQUE: 1 view. FINDINGS: Lungs/Pleura: Interval slightly decreased masslike consolidation in the peripheral right middle lobe. Persistent small right pleural effusion. No pneumothorax. Mediastinum: Normal cardiomediastinal contour. Other: Interval removal of right internal jugular central venous catheter and placement of a left internal jugular central venous catheter which terminates in the right atrium approximately 1.5 cm beyond the cavoatrial junction. IMPRESSION: 1. Interval slightly decreased masslike consolidation in the peripheral right middle lobe. 2. Persistent small right pleural effusion. 3. New left IJ CVC terminating in the right atrium approximately 1.5 cm beyond the cavoatrial junction. RADIA The above findings were discussed with David Dumas RN by Dr. Noemi Lizama at 15:20 hrs on 01/13/18.
--- NOTE | 2018-01-13 15:43 | ANESTHESIA PROCEDURE NOTE ---
Anesth Central Line Template - Central Line Central Line Preparation: Consent Obtained Central line location: Left IJ Central line type: Triple lumen Central line aftercare: Chlorhexidine disc placed, Secured, Placement confirmed, No pneumothorax, No complications, Bundle checklist complete, Pt tolerated well
[2018-01-13] MEDS: SODIUM CHLORIDE FLUSH 0.9% 10 ML SYRINGE IVP PRN ×3 (16:14→21:52)
[2018-01-13 16:21] LABS: KETONES, SERUM (ACETEST) MODERATE (NEGATIVE)
[2018-01-13] MEDS: SODIUM CHLORIDE FLUSH 0.9% 10 ML SYRINGE IVP SCH (16:22)
[2018-01-13 16:24] LABS: BUN - BLOOD UREA NITROGEN 41 mg/dL (6-20); CALCIUM 8.9 mg/dL (8.5-10.3); CHLORIDE 99 mmol/L (101-111); CREATININE 1.1 mg/dL (0.4-1.0); GFR - MDRD 56 (>89); GLUCOSE 390 mg/dL (70-100); MAGNESIUM 2.6 mg/dL (1.7-2.8); SODIUM 132 mmol/L (135-145)
[2018-01-13 16:25] LABS: CARBON DIOXIDE - CO2 11 mmol/L (21-32)
[2018-01-13] MEDS: GABAPENTIN 300 MG CAPSULE PO SCH ×2 (16:25→21:25)
[2018-01-13] MEDS: METOCLOPRAMIDE 10 MG TABLET PO SCH ×2 (16:27→21:25)
[2018-01-13] MEDS: NS W/20 MEQ KCL 1,000 ML IV SCH (17:29)
[2018-01-13] MEDS ORDERED: LORazepam 2 MG/ML VIAL IVP PRN (17:44)
[2018-01-13] MEDS ORDERED: PIPERACILLIN/TAZOBACTAM 3.375 GM in SODIUM CHLORIDE 0.9% MINIBAG 100 ML IV SCH (18:00)
[2018-01-13] MEDS ORDERED: VANCOMYCIN PER PHARMACY 1 GM in SODIUM CHLORIDE 0.9% 250 ML IV SCH (18:00)
[2018-01-13 18:16] LABS: GLUCOSE 257 mg/dL (70-100)
[2018-01-13 18:23] LABS: KETONES, SERUM (ACETEST) SMALL (NEGATIVE)
[2018-01-13] MEDS ORDERED: D5.45NS W/20 MEQ KCL 1,000 ML IV SCH (21:00)
[2018-01-13] MEDS ORDERED: SULFAMETH/TRIMETH DS 800/160 MG TABLET PO SCH ×2 (21:00)
[2018-01-13] MEDS: FAMOTIDINE 20 MG/50 ML 50 ML IV SCH (21:15)
[2018-01-13] MEDS: cloNIDine 0.1 MG TABLET PO SCH (21:24)
[2018-01-13] MEDS: CILOSTAZOL 100 MG TABLET PO SCH (21:25)
[2018-01-13] MEDS: OXYBUTYNIN 5MG TABLET PO SCH (21:25)
[2018-01-13] MEDS: METOPROLOL SUCCINATE 25 MG TABLET PO SCH (21:26)
[2018-01-13] MEDS: AMITRIPTYLINE 25 MG TABLET PO SCH (21:26)
[2018-01-13] MEDS: NYSTATIN CREAM 15 GM TUBE TOP SCH (21:50)
[2018-01-13 22:04] LABS: MUDS CUTOFF CONCENTRATIONS CUTOFF CONC BELOW:
[2018-01-13 22:07] LABS: GLUCOSE, URINE (UA) 500 mg/dL (NEGATIVE); KETONES,URINE (UA) 40 mg/dL (NEGATIVE); LEUKOCYTE ESTERASE, URINE NEGATIVE (NEGATIVE); NITRITE,URINE NEGATIVE (NEGATIVE); OCCULT BLOOD,URINE NEGATIVE (NEGATIVE); PH,URINE 5.5 PH (5.0-7.5); PROTEIN,URINE NEGATIVE (NEGATIVE); UROBILINOGEN,URINE 0.2 (NORMAL) E.U./dL (NORMAL)
[2018-01-13 22:16] LABS: CLARITY,URINE CLEAR (CLEAR)
[2018-01-13 22:17] LABS: AMPHETAMINE SCREEN,URINE POSITIVE (NEGATIVE); BILIRUBIN,URINE NEGATIVE (NEGATIVE); COCAINE SCREEN URINE NEGATIVE (NEGATIVE); ICTOTEST,URINE NEGATIVE; METHAMPHETAMINES SCREEN, URINE POSITIVE (NEGATIVE); OPIATE SCREEN, URINE POSITIVE (NEGATIVE)
[2018-01-13 22:18] LABS: BENZODIAZEPINES SCREEN, URINE NEGATIVE (NEGATIVE); METHADONE SCREEN, URINE NEGATIVE (NEGATIVE); OXYCODONE SCREEN, URINE NEGATIVE (NEGATIVE); PROPOXYPHENE SCREEN, URINE NEGATIVE (NEGATIVE); TRICYCLIC ANTIDEPRESSANT,URINE NEGATIVE (NEGATIVE)
[2018-01-14 00:30] LABS: CALCIUM 8.7 mg/dL (8.5-10.3); CREATININE 0.7 mg/dL (0.4-1.0)
[2018-01-14] MEDS: SODIUM CHLORIDE FLUSH 0.9% 10 ML SYRINGE IVP SCH ×5 (00:59→19:50)
[2018-01-14] MEDS: INSULIN GLARGINE 300 UNIT/3 ML PEN SUBQ SCH ×2 (00:59→20:28)
[2018-01-14] MEDS: SODIUM CHLORIDE FLUSH 0.9% 10 ML SYRINGE IVP PRN ×3 (01:43→20:32)
[2018-01-14] MEDS: NS W/20 MEQ KCL 1,000 ML IV SCH (02:34)
[2018-01-14] MEDS: GABAPENTIN 300 MG CAPSULE PO SCH ×3 (05:38→21:38)
[2018-01-14] MEDS: METOCLOPRAMIDE 10 MG TABLET PO SCH ×4 (05:41→20:32)
[2018-01-14 05:48] LABS: BASOPHILS # (AUTO) 0.1 10^3/uL (0.0-0.1); BASOPHILS % (AUTO) 0.7 %; EOSINOPHILS % (AUTO) 0.5 %; LYMPHOCYTES # (AUTO) 2.9 10^3/uL (1.5-3.5); MEAN CORPUSCULAR HEMOGLOBIN 25.1 pg (27.0-31.0); MEAN CORPUSCULAR HGB CONC 33.7 g/dL (32.0-36.0); MEAN CORPUSCULAR VOLUME 74.4 fL (81.0-99.0); MEAN PLATELET VOLUME 6.9 fL (7.9-10.8); MONOCYTES # (AUTO) 0.5 10^3/uL (0.0-1.0); MONOCYTES % (AUTO) 5.5 %; NEUTROPHILS % (AUTO) 63.3 %; PLT - PLATELET COUNT 582 10^3/uL (130-450); RED BLOOD COUNT 3.59 10^6/uL (4.20-5.40); RED CELL DISTRIBUTION WIDTH 18.1 % (12.0-15.0); WHITE BLOOD COUNT 9.5 x10^3/uL (4.8-10.8)
[2018-01-14 06:03] LABS: ALBUMIN 3.4 g/dL (3.2-5.5); ALBUMIN/GLOBULIN RATIO 0.7 (1.0-2.2); BILIRUBIN,TOTAL 0.7 mg/dL (0.2-1.0); CALCIUM 8.6 mg/dL (8.5-10.3); CREATININE 0.7 mg/dL (0.4-1.0); MAGNESIUM 2.3 mg/dL (1.7-2.8); PHOSPHORUS 2.7 mg/dL (2.5-4.6)
[2018-01-14 06:17] LABS: HB2 TOTAL 9.3 g/dL; HEMOGLOBIN A1C 0.82 g/dL; HEMOGLOBIN A1C % 10.2 % (4.6-6.2)
[2018-01-14 06:49] LABS: INR 1.1 (0.8-1.2); PT - PROTHROMBIN TIME 12.6 secs (9.9-12.6)
[2018-01-14] MEDS: INSULIN ASPART 300 UNIT/3 ML PEN SUBQ SCH ×5 (07:55→20:29)
[2018-01-14] MEDS: DULoxetine 20 MG CAPSULE PO SCH (08:32)
[2018-01-14] MEDS: diltiaZEM CD 120 MG CAPSULE PO SCH (08:32)
[2018-01-14] MEDS: levoFLOXacin 250 MG TABLET PO SCH (08:33)
[2018-01-14] MEDS: OXYBUTYNIN 5MG TABLET PO SCH ×2 (08:33→20:32)
[2018-01-14] MEDS: SULFAMETH/TRIMETH DS 800/160 MG TABLET PO SCH ×2 (08:33→21:42)
[2018-01-14] MEDS: cloNIDine 0.1 MG TABLET PO SCH ×2 (08:33→20:32)
[2018-01-14] MEDS: ASPIRIN EC 81 MG TABLET PO SCH (08:33)
[2018-01-14] MEDS: ENOXAPARIN 40 MG/0.4 ML SYRINGE SUBQ SCH (08:34)
[2018-01-14] MEDS: CILOSTAZOL 100 MG TABLET PO SCH ×2 (08:34→20:32)
[2018-01-14] MEDS: FAMOTIDINE 20 MG/50 ML 50 ML IV SCH ×2 (08:34→20:34)
[2018-01-14] MEDS: METOPROLOL SUCCINATE 25 MG TABLET PO SCH ×2 (08:34→20:32)
[2018-01-14] MEDS: NYSTATIN CREAM 15 GM TUBE TOP SCH ×2 (08:34→20:31)
[2018-01-14] MEDS ORDERED: levoFLOXacin 250 MG TABLET PO SCH (09:00)
--- NOTE | 2018-01-14 15:21 | PROVIDER PROGRESS NOTE ---
Assessment/Plan - Problem List (1) DKA (diabetic ketoacidoses) Qualifiers: Diabetes mellitus type: type 1 Diabetes mellitus complication detail: without coma Qualified Code(s): E10.10 - Type 1 diabetes mellitus with ketoacidosis without coma Assessment/Plan: Improving, still has small Ketones but anion gap is closed. Transition to Lantus and ss Insulin coverage. (2) Axillary abscess Assessment/Plan: Healing. Plan is to finish the course of antibiotics which she was sent out on 1 week ago. Four more days planned. (3) HCAP (healthcare-associated pneumonia) Assessment/Plan: Continue oral antibiotics for finishing treatment. Four more days planned. (4) Anemia Assessment/Plan: Stable. Monitor CBC daily. Iron po replacement. (5) Methamphetamine abuse, episodic Assessment/Plan: On this admission, her tox screen was pos for methamphetamines. Pt is still sleepy today, which is her usual status after 1 day of admission. (6) Hypertension Qualifiers: Hypertension type: essential hypertension Qualified Code(s): I10 - Essential (primary) hypertension Assessment/Plan: Continue B-tianna, Cardizem and, if needed Clonidine. (7) Coronary artery disease with history of myocardial infarction without history of CABG Assessment/Plan: Stable. Continue B-tianna and ASA. (8) PVD (peripheral vascular disease) Assessment/Plan: Stable. Continue ASA abd Pletal. 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 - Current Meds Current Meds: Current Medications Generic Name Dose Route Start Last Admin Trade Name Chasidy PRN Reason Stop Dose Admin Amitriptyline HCl 25 mg 01/13/18 21:00 01/13/18 21:26 Elavil PO 25 mg HS SYLVIA Administration Aspirin 81 mg 01/14/18 09:00 01/14/18 08:33 Ecotrin PO 81 mg DAILY SYLVIA Administration Cilostazol 100 mg 01/13/18 21:00 01/14/18 08:34 Pletal PO 100 mg BID SYLVIA Administration Clonidine HCl 0.1 mg 01/13/18 21:00 01/14/18 08:33 Catapres PO 0.1 mg BID SYLVIA Administration Diltiazem HCl 120 mg 01/14/18 09:00 01/14/18 08:32 Cardizem Cd PO 120 mg DAILY SYLVIA Administration Duloxetine HCl 60 mg 01/14/18 09:00 01/14/18 08:32 Cymbalta PO 60 mg DAILY SYLVIA Administration Enoxaparin Sodium 40 mg 01/14/18 09:00 01/14/18 08:34 Lovenox SUBQ 40 mg DAILY SYLVIA Administration Gabapentin 900 mg 01/13/18 14:00 01/14/18 13:54 Neurontin PO 900 mg TID SYLVIA Administration Heparin Sodium (Beef Lung) 30 - 50 unit 01/14/18 00:52 01/14/18 05:28 IVP 30 unit PRN PRN Administration Central Line Protocol (<24 hr) Famotidine 50 mls @ 100 mls/hr 01/13/18 21:00 01/14/18 09:10 Pepcid 20 Mg/50 Ml IV Infused BID SYLVIA Infusion Ibuprofen 600 mg 01/13/18 11:53 01/14/18 11:18 Motrin PO 600 mg Q6HR PRN Administration Pain 1 to 4 Insulin Aspart 1 - 9 unit 01/14/18 08:00 01/14/18 12:04 Novolog SUBQ 9 unit 0800,1200,1700,2100 SYLVIA Administration Protocol Insulin Glargine 40 unit 01/14/18 00:44 01/14/18 00:59 Lantus Solostar SUBQ 40 unit QPM SYLVIA Administration Levofloxacin 750 mg 01/14/18 09:00 01/14/18 08:33 Levaquin PO 750 mg DAILY SYLVIA Administration Metoclopramide HCl 10 mg 01/13/18 16:00 01/14/18 11:23 Reglan PO 10 mg ACHS SYLVIA Administration Metoprolol Succinate 25 mg 01/13/18 21:00 01/14/18 08:34 Toprol Xl PO 25 mg BID SYLVIA Administration Nystatin 15 applic 01/13/18 21:00 01/14/18 08:34 Mycostatin Cream TOP 1 applic BID SYLVIA Administration Oxybutynin Chloride 5 mg 01/13/18 21:00 01/14/18 08:33 Ditropan PO 5 mg BID SYLVIA Administration Sodium Chloride 10 ml 01/13/18 17:00 01/14/18 08:34 Normal Saline Flush 0.9% IVP 10 ml 0100,0900,1700 SYLVIA Administration Sodium Chloride 10 ml 01/13/18 11:59 01/14/18 01:43 Normal Saline Flush 0.9% IVP 10 ml PRN PRN Administration NEEDED PER PROVIDER ORDERS Sodium Chloride 20 ml 01/13/18 16:09 01/14/18 05:29 Normal Saline Flush 0.9% IVP 20 ml PRN PRN Administration After Blood Draw Trimethoprim/Sulfamethoxazole 2 tab 01/14/18 09:00 01/14/18 08:33 Bactrim Ds 800/160 PO 2 tab BID SYLVIA Administration - Lab Result Fish Bone Diagrams: 01/14/18 05:30 01/14/18 05:30 Subjective - Subjective Patient Reports: Resting Comfortably Nursing Reports: Other (Cooperative, eating well.) Objective Vital Signs: Vital Signs - 24 hr 01/13/18 01/13/18 01/13/18 16:00 17:00 17:08 Temperature 37.1 C Heart Rate 138 H Heart Rate [ 138 H 134 H Monitoring electrodes] Respiratory 22 21 24 Rate Blood Pressure 138/78 H 135/75 H [Right Brachial artery] O2 Saturation 98 97 98 01/13/18 01/13/18 01/13/18 18:00 19:00 19:58 Temperature 37.2 C 36.6 C Heart Rate Heart Rate [ 139 H 134 H Monitoring electrodes] Respiratory 20 21 Rate Blood Pressure 135/79 H 121/70 [Right Brachial artery] O2 Saturation 96 93 01/13/18 01/13/18 01/13/18 20:00 21:00 22:00 Temperature Heart Rate Heart Rate [ 133 H 131 H 128 H Monitoring electrodes] Respiratory 20 18 22 Rate Blood Pressure 130/94 H 132/80 H 153/93 H [Right Brachial artery] O2 Saturation 94 95 95 01/13/18 01/14/18 01/14/18 23:24 00:00 01:00 Temperature 36.3 C L Heart Rate Heart Rate [ 118 H 110 H 112 H Monitoring electrodes] Respiratory 16 17 15 Rate Blood Pressure 105/71 114/75 114/68 [Right Brachial artery] O2 Saturation 95 96 95 01/14/18 01/14/18 01/14/18 02:00 03:00 04:00 Temperature Heart Rate Heart Rate [ 111 H 108 H 111 H Monitoring electrodes] Respiratory 16 16 16 Rate Blood Pressure 117/76 117/78 116/80 [Right Brachial artery] O2 Saturation 95 94 01/14/18 01/14/18 01/14/18 05:00 06:00 07:00 Temperature Heart Rate Heart Rate [ 104 H 97 100 Monitoring electrodes] Respiratory 15 15 16 Rate Blood Pressure 123/86 H 133/92 H 123/82 H [Right Brachial artery] O2 Saturation 94 95 93 01/14/18 01/14/18 01/14/18 08:00 09:00 10:00 Temperature Heart Rate Heart Rate [ 95 104 H 110 H Monitoring electrodes] Respiratory 17 18 19 Rate Blood Pressure 121/86 H 124/83 H 119/79 [Right Brachial artery] O2 Saturation 98 97 97 01/14/18 14:00 Temperature 36.6 C Heart Rate Heart Rate [ 99 Monitoring electrodes] Respiratory 20 Rate Blood Pressure 102/59 L [Right Brachial artery] O2 Saturation 94 Oxygen O2 Source [Without Activity] Room air O2 Source Room air I&O (Last 24 Hrs): Intake and Output Totals x24h 01/12/18 01/13/18 01/14/18 23:59 23:59 23:59 Intake Total 2047.310 3341.85 Output Total 850 2500 Balance 1197.310 841.85 General: Other (Sleepy) HEENT: Atraumatic, Mucous membr. moist/pink Neck: Supple, No JVD Neuro: Non Focal Cardiovascular: Regular rate, No murmurs Respiratory: No respiratory distress Abdomen: Soft Extremities: No edema, Other (Several toes amputated. Axillae and L arm abscresses are clean and healing.) - Results Results: Laboratory Results WBC 9.5 x10^3/uL (4.8-10.8) 01/14/18 05:30 RBC 3.59 10^6/uL (4.20-5.40) L 01/14/18 05:30 Hgb 9.0 g/dL (12.0-16.0) L 01/14/18 05:30 Hct 26.7 % (37.0-47.0) L 01/14/18 05:30 MCV 74.4 fL (81.0-99.0) L 01/14/18 05:30 MCH 25.1 pg (27.0-31.0) L 01/14/18 05:30 MCHC 33.7 g/dL (32.0-36.0) 01/14/18 05:30 RDW 18.1 % (12.0-15.0) H 01/14/18 05:30 Plt Count 582 10^3/uL (130-450) H 01/14/18 05:30 MPV 6.9 fL (7.9-10.8) L 01/14/18 05:30 Neut # (Auto) 6.0 10^3/uL (1.5-6.6) 01/14/18 05:30 Lymph # (Auto) 2.9 10^3/uL (1.5-3.5) 01/14/18 05:30 [place] # (Auto) 0.5 10^3/uL (0.0-1.0) 01/14/18 05:30 Eos # (Auto) 0.0 10^3/uL (0.0-0.7) 01/14/18 05:30 Baso # (Auto) 0.1 10^3/uL (0.0-0.1) 01/14/18 05:30 Absolute Nucleated RBC 0.00 x10^3/uL 01/14/18 05:30 Nucleated RBC % 0.0 /100WBC 01/14/18 05:30 PT 12.6 secs (9.9-12.6) 01/14/18 06:30 INR 1.1 (0.8-1.2) 01/14/18 06:30 VBG pH 7.132 (7.31-7.41) L 01/13/18 10:47 VBG pCO2 29.0 mmHg (41-51) L 01/13/18 10:47 VBG pO2 39.3 mmHg (25-47) 01/13/18 10:47 VBG HCO3 9.5 mmol/L (23-28) L 01/13/18 10:47 VBG Total CO2 10.4 mmol/L (24-29) L 01/13/18 10:47 VBG O2 Saturation 60.2 % (60-80) 01/13/18 10:47 VBG Base Excess -18.3 mmol/L (-2 - +2) L 01/13/18 10:47 Sodium 135 mmol/L (135-145) 01/14/18 05:30 Potassium 3.6 mmol/L (3.5-5.0) 01/14/18 05:30 Chloride 103 mmol/L (101-111) 01/14/18 05:30 Carbon Dioxide 25 mmol/L (21-32) 01/14/18 05:30 Anion Gap 7.0 (6-13) 01/14/18 05:30 BUN 34 mg/dL (6-20) H 01/14/18 05:30 Creatinine 0.7 mg/dL (0.4-1.0) 01/14/18 05:30 Estimated GFR (MDRD) 95 (>89) 01/14/18 05:30 Glucose 115 mg/dL (70-100) H 01/14/18 05:30 POC Whole Bld Glucose 328 mg/dL (70 - 100) H 01/14/18 11:52 Glycated Hemoglobin 10.2 % (4.6-6.2) H 01/14/18 05:30 Estim Average Glucose 246 (70-100) H 01/14/18 05:30 Calcium 8.6 mg/dL (8.5-10.3) 01/14/18 05:30 Phosphorus 2.7 mg/dL (2.5-4.6) 01/14/18 05:30 Magnesium 2.3 mg/dL (1.7-2.8) 01/14/18 05:30 Total Bilirubin 0.7 mg/dL (0.2-1.0) 01/14/18 05:30 AST 12 IU/L (10-42) 01/14/18 05:30 ALT 15 IU/L (10-60) 01/14/18 05:30 Alkaline Phosphatase 109 IU/L (42-121) 01/14/18 05:30 Troponin I < 0.04 ng/mL (<0.49) 01/14/18 05:30 Total Protein 8.0 g/dL (6.7-8.2) 01/14/18 05:30 Albumin 3.4 g/dL (3.2-5.5) 01/14/18 05:30 Globulin 4.6 g/dL (2.1-4.2) H 01/14/18 05:30 Albumin/Globulin Ratio 0.7 (1.0-2.2) L 01/14/18 05:30 Serum HCG, Qual NEGATIVE 01/13/18 10:47 Urine Color YELLOW 01/13/18 21:45 Urine Clarity CLEAR (CLEAR) 01/13/18 21:45 Urine pH 5.5 PH (5.0-7.5) 01/13/18 21:45 Ur Specific [place] 1.025 (1.002-1.030) 01/13/18 21:45 Urine Protein NEGATIVE mg/dL (NEGATIVE) 01/13/18 21:45 Urine Glucose (UA) 500 mg/dL (NEGATIVE) H 01/13/18 21:45 Urine Ketones 40 mg/dL (NEGATIVE) H 01/13/18 21:45 Urine Occult Blood NEGATIVE (NEGATIVE) 01/13/18 21:45 Urine Nitrite NEGATIVE (NEGATIVE) 01/13/18 21:45 Urine Bilirubin NEGATIVE (NEGATIVE) 01/13/18 21:45 Urine Urobilinogen 0.2 (NORMAL) E.U./dL (NORMAL) 01/13/18 21:45 Ur Leukocyte Esterase NEGATIVE (NEGATIVE) 01/13/18 21:45 Ur Microscopic Review NOT INDICATED 01/13/18 21:45 Urine Culture Comments NOT INDICATED 01/13/18 21:45 Urine Opiates Screen POSITIVE (NEGATIVE) H 01/13/18 21:45 Ur Oxycodone Screen NEGATIVE (NEGATIVE) 01/13/18 21:45 Urine Methadone Screen NEGATIVE (NEGATIVE) 01/13/18 21:45 Ur Propoxyphene Screen NEGATIVE (NEGATIVE) 01/13/18 21:45 Ur Barbiturates Screen NEGATIVE (NEGATIVE) 01/13/18 21:45 Ur Tricyclics Screen NEGATIVE (NEGATIVE) 01/13/18 21:45 Ur Phencyclidine Scrn NEGATIVE (NEGATIVE) 01/13/18 21:45 Ur Amphetamine Screen POSITIVE (NEGATIVE) H 01/13/18 21:45 U Methamphetamines Scrn POSITIVE (NEGATIVE) H 01/13/18 21:45 U Benzodiazepines Scrn NEGATIVE (NEGATIVE) 01/13/18 21:45 Urine Cocaine Screen NEGATIVE (NEGATIVE) 01/13/18 21:45 U Cannabinoids Screen NEGATIVE (NEGATIVE) 01/13/18 21:45 Serum Ketones SMALL (NEGATIVE) H 01/13/18 21:57 - Procedures Procedures: Procedures DETACHMENT AT LEFT 4TH TOE, LOW, OPEN APPROACH (06/30/17) DETACHMENT AT RIGHT 1ST TOE, LOW, OPEN APPROACH (03/14/17) DETACHMENT AT RIGHT 2ND TOE, HIGH, OPEN APPROACH (06/30/17) DETACHMENT AT RIGHT 4TH TOE, HIGH, OPEN APPROACH (06/30/17) INSERT INFUSION DEV IN R INT JUGULAR VEIN, PERC (04/21/16) INSERTION OF INFUSION DEV INTO R SUBCLAV VEIN, PERC APPROACH (03/14/17) INSERTION OF INFUSION DEV INTO SUP VENA CAVA, PERC APPROACH (10/26/17) INSERTION OF INFUSION DEVICE INTO LOWER VEIN, PERC APPROACH (08/13/17) INSERTION OF INFUSION DEVICE INTO R ATRIUM, PERC APPROACH (11/17/17) TRANSFUSE NONAUT RED BLOOD CELLS IN CENTRAL VEIN, PERC (12/01/17) TRANSFUSE NONAUT RED BLOOD CELLS IN PERIPH VEIN, PERC (01/22/17) ULTRASONOGRAPHY OF RIGHT JUGULAR VEINS, GUIDANCE (04/21/16) ABX Reporting Has patient been on IV antibiotics over the past 48 hours?: No
[2018-01-14] MEDS: KETOROLAC 30 MG/ML VIAL IVP PRN (19:49)
[2018-01-14] MEDS: AMITRIPTYLINE 25 MG TABLET PO SCH (20:32)
[2018-01-15] MEDS: KETOROLAC 30 MG/ML VIAL IVP PRN ×2 (04:59→08:21)
[2018-01-15] MEDS: SODIUM CHLORIDE FLUSH 0.9% 10 ML SYRINGE IVP PRN ×3 (04:59→05:00)
[2018-01-15 05:52] LABS: BASOPHILS % (AUTO) 0.7 %; EOSINOPHILS # (AUTO) 0.1 10^3/uL (0.0-0.7); EOSINOPHILS % (AUTO) 1.6 %; HGB - HEMOGLOBIN 7.4 g/dL (12.0-16.0); LYMPHOCYTES # (AUTO) 2.6 10^3/uL (1.5-3.5); LYMPHOCYTES % (AUTO) 46.9 %; MEAN CORPUSCULAR HEMOGLOBIN 23.2 pg (27.0-31.0); MEAN CORPUSCULAR HGB CONC 30.8 g/dL (32.0-36.0); MEAN CORPUSCULAR VOLUME 75.4 fL (81.0-99.0); MEAN PLATELET VOLUME 6.9 fL (7.9-10.8); MONOCYTES # (AUTO) 0.4 10^3/uL (0.0-1.0); MONOCYTES % (AUTO) 6.6 %; NEUTROPHILS # (AUTO) 2.5 10^3/uL (1.5-6.6); NEUTROPHILS % (AUTO) 44.2 %; PLT - PLATELET COUNT 503 10^3/uL (130-450); RED BLOOD COUNT 3.17 10^6/uL (4.20-5.40); RED CELL DISTRIBUTION WIDTH 17.9 % (12.0-15.0); WHITE BLOOD COUNT 5.6 x10^3/uL (4.8-10.8)
[2018-01-15 06:15] LABS: ALBUMIN 2.8 g/dL (3.2-5.5); ALBUMIN/GLOBULIN RATIO 0.7 (1.0-2.2); BILIRUBIN,TOTAL 0.3 mg/dL (0.2-1.0); CALCIUM 8.6 mg/dL (8.5-10.3); CREATININE 0.6 mg/dL (0.4-1.0); MAGNESIUM 2.1 mg/dL (1.7-2.8); PHOSPHORUS 3.4 mg/dL (2.5-4.6); TOTAL PROTEIN 6.6 g/dL (6.7-8.2)
[2018-01-15] MEDS: METOCLOPRAMIDE 10 MG TABLET PO SCH (06:44)
[2018-01-15] MEDS: GABAPENTIN 300 MG CAPSULE PO SCH (06:44)
[2018-01-15 08:01] VITALS: BP 102/63
[2018-01-15] MEDS: INSULIN ASPART 300 UNIT/3 ML PEN SUBQ SCH ×2 (08:08→08:09)
[2018-01-15] MEDS: DULoxetine 20 MG CAPSULE PO SCH (08:09)
[2018-01-15] MEDS: ASPIRIN EC 81 MG TABLET PO SCH (08:09)
[2018-01-15] MEDS: METOPROLOL SUCCINATE 25 MG TABLET PO SCH (08:10)
[2018-01-15] MEDS: FAMOTIDINE 20 MG/50 ML 50 ML IV SCH (08:10)
[2018-01-15] MEDS: levoFLOXacin 250 MG TABLET PO SCH (08:10)
[2018-01-15] MEDS: diltiaZEM CD 120 MG CAPSULE PO SCH (08:10)
[2018-01-15] MEDS: CILOSTAZOL 100 MG TABLET PO SCH (08:10)
[2018-01-15] MEDS: ENOXAPARIN 40 MG/0.4 ML SYRINGE SUBQ SCH (08:10)
[2018-01-15] MEDS: SULFAMETH/TRIMETH DS 800/160 MG TABLET PO SCH (08:10)
[2018-01-15] MEDS: OXYBUTYNIN 5MG TABLET PO SCH (08:10)
[2018-01-15] MEDS: SODIUM CHLORIDE FLUSH 0.9% 10 ML SYRINGE IVP SCH (08:11)
[2018-01-15] MEDS: NYSTATIN CREAM 15 GM TUBE TOP SCH (08:11)
--- NOTE | 2018-01-15 08:34 | Discharge Plan ---
Discharge Plan Disposition: 01 Home, Self Care Condition: Fair Diet: Diabetic Activity Restrictions: Activity as Tolerated Additional Instructions or Follow Up instructions: Finish the 2 antibiotics: Bactrim and Levaquin (3 more days of treatment), using the prescription that was ordered last week. Resume all your other pre-hospital medications except stop the Clonidine. No Smoking: If you smoke, Please STOP! Call for help.
--- NOTE | 2018-01-18 17:43 | DISCHARGE SUMMARY ---
Physician: Jayshree Vides MD DATE OF ADMISSION: 01/13/2018 DATE OF DISCHARGE: 01/15/2018 HISTORY OF PRESENT ILLNESS: This is a 37-year-old white female with a history of type 1 diabetes, frequent admissions for DKA, noncompliance, methamphetamine abuse, homeless, CAD, PVD, psychiatric disorder, who was just here less than a week ago for admission with bacteremia and had abscesses of her axillae and a pneumonia. After that discharge, she was shortly thereafter admitted to [facility] and had management of diabetes, pneumonia and her abscesses again. She went home to her tent, started using methamphetamine again and cannot remember if she took her insulin and was found by bystanders to be semi-comatose and brought to the emergency room by ambulance and found to be in DKA again. HOSPITAL COURSE AND DISCHARGE DIAGNOSES 1. Diabetic ketoacidosis. Her serum glucose was 683 with anion gap of 22 and serum ketones were moderate. She was managed with a standard DKA protocol, which corrected the condition and she was able to resume her usual insulin doses and diabetic diet and was discharged. 2. Axillary abscesses. The patient was kept on her course of antibiotics, which had yet been not completed from the last admission. At the time of discharge, she had approximately 2 more days of antibiotics to take. 3. Healthcare-associated pneumonia. She was also on oral antibiotics to finish a course of treatment for this, approximately 2 more days of treatment were planned at discharge. 4. Anemia. She was onoral iron replacement for this. 5. Methamphetamine abuse. On this admission, her tox screen was positive for methamphetamines, she was sleepy in the early part of the hospitalization, consistent with her recovery from meth abuse, but was alert and oriented at discharge. 6. Hypertension. The patient was kept on her beta tianna, Cardizem and blood pressure control was adequate. 7. Coronary artery disease with history of myocardial infarction. The patient was on her beta tianna and aspirin while here. 8. Peripheral vascular disease. No symptoms were reported on this admission and she was continued on her aspirin and Pletal. 9. Personality and behavior disorder. The patient was kept on her Cymbalta and Amitriptyline and also needed Ativan p.r.n. The patient has had narcotic drug- seeking behavior in the past, on this admission she had no significant requests. ALLERGIES: CODEINE, HYDROCODONE, MORPHINE, MILK, NITROFURANTOIN. DISCHARGE MEDICATIONS: At the time of discharge: 1. Motrin 600 mg p.r.n. 2. Elavil 25 mg at bedtime. 3. Baby aspirin daily. 4. Pletal 100 mg b.i.d. 5. Cardizem CD 120 mg daily. 6. Cymbalta 60 mg daily. 7. Dilaudid 2 mg, 4 tablets were prescribed which she takes with axillae dressing changes. 8. NovoLog insulin 15 units subcutaneous t.i.d. with meals. 9. Lantus SoloSTAR insulin 40 units subcutaneous every p.m. 10. Levaquin 750 mg p.o. daily. 11. Reglan 10 mg before meals and at bedtime p.r.n. 12. Toprol-XL 25 mg b.i.d. 13. Bactrim DS 2 tablets b.i.d. 14. Tramadol 50 mg every 6 hours p.r.n. pain. LABORATORY AND IMAGING: Reviewed and summarized above. PHYSICAL EXAMINATION: At discharge: VITAL SIGNS: Blood pressure 102/63, pulse of 78, afebrile, room air saturation 97%. HEENT: Edentulous mouth. NECK: No JVD. CHEST: Clear. HEART: Heart sounds normal. ABDOMEN: Soft. EXTREMITIES: Several toes amputated. NEUROLOGIC: Grossly intact. FOLLOWUP: She was advised to find a PCP, but has never done this and is noncompliant with this recommendation. CODE STATUS: FULL CODE. Time required to complete this discharge, chart review, dictation, prescription orders: Thirty minutes. TD: 01/18/2018 16:52 [facility]
== END 2018-01-15 11:15 | disposition home or self-care (01) | DRG 637 ==
LOC: EDUNIT# → ED 10:19 → ICU 11:59
PROVIDERS: ADMIT Internal Medicine; ATTEND Internal Medicine
PROC: 02H633Z Insertion of Infusion Device into Right Atrium, Percutaneous Approach (ICD-10-PCS; principal; 2018-01-13)
DX: E10.11 Type 1 diabetes mellitus with ketoacidosis with coma (principal); J18.1 Lobar pneumonia, unspecified organism; L02.412 Cutaneous abscess of left axilla; L02.411 Cutaneous abscess of right axilla; E87.1 Hypo-osmolality and hyponatremia; R78.81 Bacteremia; L02.414 Cutaneous abscess of left upper limb; E10.51 Type 1 diabetes mellitus with diabetic peripheral angiopathy without gangrene; E10.42 Type 1 diabetes mellitus with diabetic polyneuropathy; T68.XXXA Hypothermia, initial encounter; X31.XXXA Exposure to excessive natural cold, initial encounter; T38.3X6A Underdosing of insulin and oral hypoglycemic [antidiabetic] drugs, initial encounter; Z91.138 Patient's unintentional underdosing of medication regimen for other reason; Y92.89 Other specified places as the place of occurrence of the external cause; B95.62 Methicillin resistant Staphylococcus aureus infection as the cause of diseases classified elsewhere; B95.1 Streptococcus, group B, as the cause of diseases classified elsewhere; M79.674 Pain in right toe(s); D64.9 Anemia, unspecified; I10 Essential (primary) hypertension; E87.5 Hyperkalemia; E86.0 Dehydration; E86.1 Hypovolemia; E78.00 Pure hypercholesterolemia, unspecified; I25.10 Atherosclerotic heart disease of native coronary artery without angina pectoris; F31.9 Bipolar disorder, unspecified; F41.0 Panic disorder [episodic paroxysmal anxiety]; F17.210 Nicotine dependence, cigarettes, uncomplicated; F90.9 Attention-deficit hyperactivity disorder, unspecified type; F15.10 Other stimulant abuse, uncomplicated; F60.9 Personality disorder, unspecified; M79.7 Fibromyalgia; G89.29 Other chronic pain; I25.2 Old myocardial infarction; Y95 Nosocomial condition; Z59.0 Homelessness; Z79.899 Other long term (current) drug therapy; Z79.82 Long term (current) use of aspirin; Z76.5 Malingerer [conscious simulation]; Z89.411 Acquired absence of right great toe; Z89.422 Acquired absence of other left toe(s); Z89.421 Acquired absence of other right toe(s)
CPT/HCPCS: 36415; 71045; 80048; 80053; 80306; 81001; 81003; 82009; 82803; 82947; 83036; 83735; 84100; 84484; 84703; 85025; 85610; 87086; 87150; 93005; 96361; 96365; 96375; 96376; 99284

== ENCOUNTER 2018-01-24 09:45 | Inpatient (IN) | payer MEDICAID ==
[2018-01-24] MEDS ORDERED: SODIUM CHLORIDE 0.9% 2,000 ML IV ONE (09:56)
[2018-01-24 10:39] LABS: BILIRUBIN,URINE NEGATIVE (NEGATIVE); GLUCOSE, URINE (UA) >=1000 mg/dL (NEGATIVE); KETONES,URINE (UA) >=80 mg/dL (NEGATIVE); LEUKOCYTE ESTERASE, URINE NEGATIVE (NEGATIVE); NITRITE,URINE NEGATIVE (NEGATIVE); OCCULT BLOOD,URINE NEGATIVE (NEGATIVE); PH,URINE 5.5 PH (5.0-7.5); PROTEIN,URINE NEGATIVE (NEGATIVE); UROBILINOGEN,URINE 0.2 (NORMAL) E.U./dL (NORMAL)
[2018-01-24 10:40] LABS: VBG BASE EXCESS -15.3 mmol/L (-2 - +2); VBG PCO2 27.7 mmHg (41-51); VBG PH 7.216 (7.31-7.41); VBG PO2 57.1 mmHg (25-47); VBG TOTAL CO2 11.8 mmol/L (24-29)
[2018-01-24 10:44] LABS: MUDS CUTOFF CONCENTRATIONS CUTOFF CONC BELOW:
[2018-01-24 10:47] LABS: CLARITY,URINE CLEAR (CLEAR); HCG UR QUAL NEGATIVE
[2018-01-24 10:47] LABS: BASOPHILS % (AUTO) 0.6 %; EOSINOPHILS % (AUTO) 0.3 %; LYMPHOCYTES # (AUTO) 1.8 10^3/uL (1.5-3.5); LYMPHOCYTES % (AUTO) 22.7 %; MEAN CORPUSCULAR HEMOGLOBIN 22.7 pg (27.0-31.0); MEAN CORPUSCULAR HGB CONC 29.2 g/dL (32.0-36.0); MEAN CORPUSCULAR VOLUME 77.6 fL (81.0-99.0); MEAN PLATELET VOLUME 7.4 fL (7.9-10.8); MONOCYTES # (AUTO) 0.1 10^3/uL (0.0-1.0); MONOCYTES % (AUTO) 1.8 %; NEUTROPHILS # (AUTO) 5.8 10^3/uL (1.5-6.6); NEUTROPHILS % (AUTO) 74.6 %; PLT - PLATELET COUNT 643 10^3/uL (130-450); RED BLOOD COUNT 4.87 10^6/uL (4.20-5.40); RED CELL DISTRIBUTION WIDTH 18.6 % (12.0-15.0); WHITE BLOOD COUNT 7.7 x10^3/uL (4.8-10.8)
[2018-01-24 10:52] LABS: KETONES, SERUM (ACETEST) LARGE (NEGATIVE)
[2018-01-24 11:02] LABS: AMPHETAMINE SCREEN,URINE POSITIVE (NEGATIVE); COCAINE SCREEN URINE NEGATIVE (NEGATIVE); METHAMPHETAMINES SCREEN, URINE POSITIVE (NEGATIVE); OPIATE SCREEN, URINE NEGATIVE (NEGATIVE)
[2018-01-24 11:03] LABS: BENZODIAZEPINES SCREEN, URINE NEGATIVE (NEGATIVE); METHADONE SCREEN, URINE NEGATIVE (NEGATIVE); OXYCODONE SCREEN, URINE NEGATIVE (NEGATIVE); PROPOXYPHENE SCREEN, URINE NEGATIVE (NEGATIVE); TRICYCLIC ANTIDEPRESSANT,URINE NEGATIVE (NEGATIVE)
[2018-01-24] MEDS ORDERED: LORazepam 2 MG/ML VIAL IVP STA (11:06)
[2018-01-24] MEDS ORDERED: fentaNYL 100 MCG/2 ML VIAL IVP STA (11:06)
[2018-01-24] MEDS ORDERED: diphenhydrAMINE INJ 50 MG/ML VIAL IVP STA (11:06)
[2018-01-24 11:11] LABS: ALBUMIN 4.2 g/dL (3.2-5.5); ALBUMIN/GLOBULIN RATIO 0.9 (1.0-2.2); ALKALINE PHOSPHATASE 391 IU/L (42-121); ALT ALANINE AMINOTRANSFERASE 59 IU/L (10-60); AST ASPARTATE AMINOTRANSFERASE 37 IU/L (10-42); BILIRUBIN,TOTAL 2.3 mg/dL (0.2-1.0); BUN - BLOOD UREA NITROGEN 23 mg/dL (6-20); CHLORIDE 93 mmol/L (101-111); GFR - MDRD 63 (>89); LIPASE 20 U/L (22-51); SODIUM 129 mmol/L (135-145); TOTAL PROTEIN 8.9 g/dL (6.7-8.2)
[2018-01-24] MEDS ORDERED: INSULIN REGULAR HUMAN 100 UNIT/1 ML 10 ML MDV IVP STA (11:11)
[2018-01-24] MEDS ORDERED: INSULIN REGULAR HUMAN 100 UNIT in SODIUM CHLORIDE 0.9% 100ML 99 ML IV STA (11:11)
[2018-01-24 11:14] LABS: CARBON DIOXIDE - CO2 11 mmol/L (21-32); GLUCOSE 596 mg/dL (70-100)
[2018-01-24] MEDS ORDERED: LACTATED RINGERS 1,000 ML IV ONE (11:14)
--- NOTE | 2018-01-24 11:15 | ED Physician Documentation ---
History of Present Illness - Stated complaint Stated Complaint: DKA - Chief complaint Chief Complaint: General - Additonal information Additional information: 37-year-old female who is well-known to our emergency department who is a insulin-dependent diabetic.The patient is noncompliant with her treatment and continues to use illicit drugs. The patient has not used any of her medications in the past 3 days and presents the emergency department with reports of being in diabetic ketoacidosis. The patient reports feeling generally fatigued and nauseous. The history is limited secondary to the patient's state. Symptoms are described as severe. No other associated symptoms Review of Systems Constitutional: reports: Chills. denies: Fever, Fatigue Eyes: denies: Discharge Ears: denies: Ear pain Nose: denies: Congestion Throat: denies: Sore throat Cardiac: denies: Chest pain / pressure Respiratory: denies: Dyspnea GI: reports: Nausea. denies: Abdominal Pain : denies: Dysuria Musculoskeletal: reports: Other (Generalized pain) Neurologic: denies: Generalized weakness, Difficulty speaking PD PAST MEDICAL HISTORY - Past Medical History Past Medical History: Yes Cardiovascular: Hypertension, High cholesterol, Peripheral Vascular Disease, [place] Respiratory: None Neuro: Peripheral neuropathy, Other Endocrine/Autoimmune: Type 1 diabetes GI: Pancreatitis PURCHASING INTERN: None : None HEENT: None Psych: Depression, Anxiety, Panic attacks Musculoskeletal: Fibromyalgia Derm: None - Past Surgical History Past Surgical History: Yes General: Cholecystectomy HEENT: Tonsil/Adenoidectomy - Present Medications Home Medications: Ambulatory Orders Medication Instructions Recorded Confirmed Amitriptyline [Elavil] 25 mg PO HS #20 tablet 01/06/18 01/13/18 Aspirin [Aspirin EC] 81 mg PO DAILY #30 tablet. 01/06/18 01/13/18 Cilostazol [Pletal] 100 mg PO BID #60 tablet 01/06/18 01/13/18 DULoxetine [Cymbalta] 60 mg PO DAILY #30 capsule 01/06/18 01/13/18 HYDROmorphone [Dilaudid] 2 mg PO DAILY PRN #4 tablet 01/06/18 01/13/18 Ibuprofen [Motrin] 600 mg PO Q6HR PRN #60 tablet 01/06/18 01/13/18 Insulin Aspart [NovoLOG] 15 unit SUBQ TIDWM #1 pen 01/06/18 01/13/18 Insulin Glargine [Lantus Solostar] 40 unit SUBQ QPM #3 pen 01/06/18 01/13/18 Metoclopramide [Reglan] 10 mg PO ACHS #60 tablet 01/06/18 01/13/18 Metoprolol Succinate [Toprol Xl] 25 mg PO BID #60 tablet 01/06/18 01/13/18 Sulfamethox/Trimeth 800/160 2 tab PO BID #28 tablet 01/06/18 01/13/18 [Bactrim Ds] diltiaZEM CD [Cardizem Cd] 120 mg PO DAILY #30 capsule 01/06/18 01/13/18 levoFLOXacin [Levaquin] 500 mg PO DAILY@1000 #14 tablet 01/06/18 01/13/18 traMADol [Ultram] 50 mg PO Q6H PRN #10 tablet 01/06/18 01/13/18 Sulfamethox/Trimeth 800/160 2 tab PO BID tablet 01/15/18 [Bactrim Ds] levoFLOXacin [Levaquin] 750 mg PO DAILY tablet 01/15/18 - Allergies Allergies/Adverse Reactions: Allergies Allergy/AdvReac Type Severity Reaction Status Date / Time codeine Allergy Hives Verified 01/13/18 10:25 hydrocodone Allergy Hives Verified 01/13/18 10:25 morphine Allergy Itching Verified 01/13/18 10:25 milk AdvReac Cramps Verified 01/13/18 10:25 nitrofurantoin AdvReac Headache Verified 01/13/18 10:25 [From Macrobid] PAPER TAPE AdvReac Unknown Uncoded 01/13/18 10:25 - Social History Does the pt smoke?: Yes Smoking Status: Current every day smoker Does the pt drink ETOH?: No Does the pt have substance abuse?: Yes - Immunizations Immunizations are current?: Yes - POLST Patient has POLST: No POLST Status: Full Code PD ED PE NORMAL - General General: Alert and oriented X 3. No: No acute distress (The patient is acutely ill-appearing and appears to be in distress) - HEENT HEENT: Atraumatic, PERRL, EOMI - Neck Neck: Supple, no meningeal sign - Cardiac Cardiac: RRR (Regular tachycardia), Strong equal pulses - Respiratory Respiratory: No respiratory distress, Clear bilaterally - Abdomen Abdomen: Soft, Non tender, Non distended - Derm Derm: Normal color - Extremities Extremities: No deformity - Neuro Neuro: Alert and oriented X 3, No motor deficit, Normal speech - Psych Psych: Normal affect Results - Vitals Vitals: Vital Signs - 24 hr 01/24/18 09:47 Temperature 37 C Heart Rate 120 H Respiratory 20 Rate Blood Pressure 143/85 H O2 Saturation 99 Oxygen O2 Source [Without Activity] Room air O2 Source Room air - Labs Labs: Laboratory Tests 01/24/18 01/24/18 01/24/18 10:05 10:05 10:30 WBC 7.7 RBC 4.87 Hgb 11.0 L Hct 37.8 MCV 77.6 L MCH 22.7 L MCHC 29.2 L RDW 18.6 H Plt Count 643 H MPV 7.4 L Neut # (Auto) 5.8 Lymph # (Auto) 1.8 [place] # (Auto) 0.1 Eos # (Auto) 0.0 Baso # (Auto) 0.0 Absolute Nucleated RBC 0.00 Nucleated RBC % 0.0 VBG pH VBG pCO2 VBG pO2 VBG HCO3 VBG Total CO2 VBG O2 Saturation VBG Base Excess Sodium Potassium Chloride Carbon Dioxide Anion Gap BUN Creatinine Estimated GFR (MDRD) Glucose Calcium Total Bilirubin AST ALT Alkaline Phosphatase Total Protein Albumin Globulin Albumin/Globulin Ratio Lipase Urine Color YELLOW Urine Clarity CLEAR Urine pH 5.5 Ur Specific [place] 1.025 Urine Protein NEGATIVE Urine Glucose (UA) >=1000 H Urine Ketones >=80 H Urine Occult Blood NEGATIVE Urine Nitrite NEGATIVE Urine Bilirubin NEGATIVE Urine Urobilinogen 0.2 (NORMAL) Ur Leukocyte Esterase NEGATIVE Ur Microscopic Review NOT INDICATED Urine Culture Comments NOT INDICATED Urine HCG, Qual NEGATIVE Urine Opiates Screen NEGATIVE Ur Oxycodone Screen NEGATIVE Urine Methadone Screen NEGATIVE Ur Propoxyphene Screen NEGATIVE Ur Barbiturates Screen NEGATIVE Ur Tricyclics Screen NEGATIVE Ur Phencyclidine Scrn NEGATIVE Ur Amphetamine Screen POSITIVE H U Methamphetamines Scrn POSITIVE H U Benzodiazepines Scrn NEGATIVE Urine Cocaine Screen NEGATIVE U Cannabinoids Screen NEGATIVE Serum Ketones 01/24/18 01/24/18 10:30 10:30 WBC RBC Hgb Hct MCV MCH MCHC RDW Plt Count MPV Neut # (Auto) Lymph # (Auto) [place] # (Auto) Eos # (Auto) Baso # (Auto) Absolute Nucleated RBC Nucleated RBC % VBG pH 7.216 L VBG pCO2 27.7 L VBG pO2 57.1 H VBG HCO3 11.0 L VBG Total CO2 11.8 L VBG O2 Saturation 83.6 H VBG Base Excess -15.3 L Sodium 129 L Potassium 4.3 Chloride 93 L Carbon Dioxide 11 L* Anion Gap 25.0 H BUN 23 H Creatinine 1.0 Estimated GFR (MDRD) 63 L Glucose 596 H* Calcium 9.0 Total Bilirubin 2.3 H AST 37 ALT 59 Alkaline Phosphatase 391 H Total Protein 8.9 H Albumin 4.2 Globulin 4.7 H Albumin/Globulin Ratio 0.9 L Lipase 20 L Urine Color Urine Clarity Urine pH Ur Specific [place] Urine Protein Urine Glucose (UA) Urine Ketones Urine Occult Blood Urine Nitrite Urine Bilirubin Urine Urobilinogen Ur Leukocyte Esterase Ur Microscopic Review Urine Culture Comments Urine HCG, Qual Urine Opiates Screen Ur Oxycodone Screen Urine Methadone Screen Ur Propoxyphene Screen Ur Barbiturates Screen Ur Tricyclics Screen Ur Phencyclidine Scrn Ur Amphetamine Screen U Methamphetamines Scrn U Benzodiazepines Scrn Urine Cocaine Screen U Cannabinoids Screen Serum Ketones LARGE H PD MEDICAL DECISION MAKING - ED course ED course: The patient is in DKA and will require admission to the hospital for ongoing management of her symptoms. The case was discussed with the hospitalist Dr. Sandhu Who accepts the patient onto her service. Anesthesia was consulted to place a central line since the patient has had numerous central lines in the past her vasculature is quite complicated. The findings and plan were discussed with the patient who understands and agrees to the plan. Departure - Departure Disposition: 66 [facility] DC/Xfer Clinical Impression: Noncompliance, Drug abuse DKA (diabetic ketoacidoses) Qualifiers: Diabetes mellitus type: other specified (including [place]) Diabetes mellitus complication detail: without coma Qualified Code(s): E13.10 - Other specified diabetes mellitus with ketoacidosis without coma
[2018-01-24] MEDS ORDERED: KETOROLAC 15 MG/ML VIAL IVP STA (11:17)
[2018-01-24] MEDS ORDERED: ONDANSETRON 4 MG/2 ML VIAL IVP STA (11:19)
[2018-01-24] MEDS ORDERED: ACETAMINOPHEN 325 MG TABLET PO PRN (12:43)
[2018-01-24] MEDS ORDERED: ONDANSETRON 4 MG/2 ML VIAL IVP PRN (12:43)
[2018-01-24] MEDS ORDERED: INSULIN REGULAR HUMAN 100 UNIT in SODIUM CHLORIDE 0.9% 100ML 99 ML IV SCH (13:00)
--- NOTE | 2018-01-24 14:56 | XRAY Report ---
Reason: line placement Procedure Date: 01/24/2018 Accession Number: [id number] / [id number] Procedure: XR - Chest for Line Placement CPT Code: FULL RESULT: EXAM: CHEST RADIOGRAPHY EXAM DATE: 01/24/2018 02:35 PM. CLINICAL HISTORY: Line placement. COMPARISON: CHEST FOR LINE PLACEMENT 01/13/2018 2:57 PM. TECHNIQUE: 1 view. FINDINGS: Lungs/Pleura: Right basilar opacities are more prominent compared to prior. No pleural effusion. Interval increase in prominence of a deep right costophrenic sulcus may be in part due to rotation. Mediastinum: Within exam limitations, the cardiomediastinal contour is normal. Other: Interval removal of a left IJ approach central venous line and new placement of a right IJ approach central venous line terminating in the region of the superior cavoatrial junction. IMPRESSION: Appropriately positioned right IJ central venous catheter. Increase in prominence of right basilar opacities. If there is clinical concern for pneumothorax on the right, recommend formal repeat radiograph without diagonal positioning of the patient and without rotation, preferably PA and lateral or inspiration and expiration if the examination must be performed portably. RADIA
[2018-01-24 15:03] LABS: VBG BASE EXCESS -19.4 mmol/L (-2 - +2); VBG PCO2 23.7 mmHg (41-51); VBG PH 7.143 (7.31-7.41); VBG PO2 111.3 mmHg (25-47); VBG TOTAL CO2 8.7 mmol/L (24-29)
--- NOTE | 2018-01-24 15:14 | ANESTHESIA PROCEDURE NOTE ---
Anesth Central Line Template - Central Line Central Line Preparation: Consent Obtained Central line location: Right IJ Central line type: Triple lumen Central line aftercare: Chlorhexidine disc placed, Secured (sutured), Placement confirmed, No complications, Bundle checklist complete, Pt tolerated well
[2018-01-24 15:19] LABS: KETONES, SERUM (ACETEST) LARGE (NEGATIVE)
[2018-01-24 15:33] LABS: BUN - BLOOD UREA NITROGEN 22 mg/dL (6-20); CARBON DIOXIDE - CO2 11 mmol/L (21-32); CHLORIDE 102 mmol/L (101-111); GFR - MDRD 63 (>89); GLUCOSE 465 mg/dL (70-100); MAGNESIUM 2.1 mg/dL (1.7-2.8); SODIUM 133 mmol/L (135-145)
[2018-01-24] MEDS ORDERED: NS W/20 MEQ KCL 1,000 ML IV STA (15:43)
[2018-01-24 17:02] LABS: CALCIUM 7.9 mg/dL (8.5-10.3); CREATININE 1.1 mg/dL (0.4-1.0)
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
[2018-01-24] MEDS ORDERED: PROMETHAZINE INJ 25 MG in SODIUM CHLORIDE 0.9% 50 ML IV PRN (18:51)
[2018-01-24 19:54] LABS: GLUCOSE 126 mg/dL (70-100)
[2018-01-24 20:01] LABS: KETONES, SERUM (ACETEST) SMALL (NEGATIVE)
[2018-01-24] MEDS: ONDANSETRON ODT 4 MG TABLET TL PRN (20:26)
[2018-01-24] MEDS ORDERED: HALOPERIDOL 5 MG/ML VIAL IVP PRN ×2 (20:27→22:13)
[2018-01-24 20:47] LABS: HEMOGLOBIN A1C 1.1 g/dL; HEMOGLOBIN A1C % 10.5 % (4.6-6.2)
[2018-01-24] MEDS: KETOROLAC 15 MG/ML VIAL IVP PRN (20:47)
[2018-01-24] MEDS: NS W/20 MEQ KCL 1,000 ML IV SCH (20:50)
[2018-01-24] MEDS: INSULIN ASPART 300 UNIT/3 ML PEN SUBQ SCH (20:57)
[2018-01-24] MEDS: INSULIN GLARGINE 300 UNIT/3 ML PEN SUBQ SCH (20:58)
[2018-01-24] MEDS ORDERED: HALOPERIDOL 5 MG/ML VIAL ONE (22:59)
[2018-01-24] MEDS: SODIUM CHLORIDE FLUSH 0.9% 10 ML SYRINGE IVP PRN (23:05)
[2018-01-24 23:24] LABS: CALCIUM 7.4 mg/dL (8.5-10.3); CREATININE 0.8 mg/dL (0.4-1.0)
[2018-01-25] MEDS: SODIUM CHLORIDE FLUSH 0.9% 10 ML SYRINGE IVP SCH ×4 (00:13→17:19)
[2018-01-25] MEDS: NS W/20 MEQ KCL 1,000 ML IV SCH ×7 (00:13→22:35)
[2018-01-25] MEDS: INSULIN GLARGINE 300 UNIT/3 ML PEN SUBQ SCH ×2 (08:26→21:10)
[2018-01-25] MEDS: INSULIN ASPART 300 UNIT/3 ML PEN SUBQ SCH ×6 (08:26→21:13)
[2018-01-25] MEDS: POLYETHYLENE GLYCOL 3350 17 GM PACKET PO SCH (09:39)
[2018-01-25] MEDS: ENOXAPARIN 40 MG/0.4 ML SYRINGE SUBQ SCH (09:39)
--- NOTE | 2018-01-25 11:13 | PROVIDER PROGRESS NOTE ---
Assessment/Plan - Problem List (1) DKA (diabetic ketoacidoses) Qualifiers: Diabetes mellitus type: other specified (including BRAYDEN) Diabetes mellitus complication detail: without coma Qualified Code(s): E13.10 - Other specified diabetes mellitus with ketoacidosis without coma Assessment/Plan: Anion gap resolved but still has moderate serum ketones. She ate solids for breakfast than is vomiting thus afternoin 3 times. Will adjust diet to full liquids and start scheduled Reglan. Will continue to monitor serum ketones and BMP, as she may need to return to an Insulin drip. (2) Methamphetamine abuse Assessment/Plan: She is sleeping most of today, consistent with the recovery from Meth use. (3) Labial erosion Assessment/Plan: Patient told nurse she has something on labia, RN noted a white patch. Will request a HOSPITALIST NOCTURNIST PHYSICIAN consult (Dr Gates was called). (4) Anemia Assessment/Plan: Will resume her vitamins and Iron supplements, when she is not vomiting and is taking po meds. (5) PVD (peripheral vascular disease) Assessment/Plan: Will restart her ASA and Pletal when she is not vomiting and is able to take po meds. (6) Coronary artery disease with history of myocardial infarction without history of CABG Assessment/Plan: Will use iv Lopressor while she is N/V and restart po B-tianna, ASA when she can tolerate po meds and diet. (7) Hypertension Qualifiers: Hypertension type: essential hypertension Qualified Code(s): I10 - Essential (primary) hypertension Assessment/Plan: Will use iv Lopressor and iv Cardizem boluses while she is vomiting. (8) Depression Assessment/Plan: Will restart her psych meds when she is able to tolerate po meds. - Current Meds Current Meds: Current Medications Generic Name Dose Route Start Last Admin Trade Name Freq PRN Reason Stop Dose Admin Enoxaparin Sodium 40 mg 01/25/18 09:00 01/25/18 09:39 Lovenox SUBQ 40 mg DAILY SYLVIA Administration Potassium Chloride/Sodium Chloride 1,000 mls @ 250 mls/hr 01/24/18 21:00 1 03/28/17 08:48 Normal Saline 0.9% W/20 Meq Kcl IV 01/26/18 20:59 250 mls/hr .Q4H SYLVIA Administration Insulin Aspart 5 unit 01/25/18 08:00 01/25/18 08:26 Novolog SUBQ 5 unit TIDWM SYLVIA Administration Protocol Insulin Glargine 40 unit 01/24/18 21:00 01/25/18 08:26 Lantus Solostar SUBQ 300 unit BID SYLVIA Administration Ketorolac Tromethamine 15 mg 01/24/18 18:50 01/24/18 20:47 Toradol Inj (15mg) IVP 15 mg Q6HR PRN Administration PAIN Ondansetron HCl 4 mg 01/24/18 12:43 01/24/18 20:26 Zofran Odt TL 4 mg Q6HR PRN Administration Nausea / Vomiting Polyethylene Glycol 17 gm 01/25/18 09:00 01/25/18 09:39 Miralax PO 17 gm DAILY SYLVIA Administration Sodium Chloride 10 ml 01/24/18 12:43 01/24/18 23:05 Normal Saline Flush 0.9% IVP 30 ml PRN PRN Administration NEEDED PER PROVIDER ORDERS Sodium Chloride 10 ml 01/24/18 17:00 01/25/18 09:39 Normal Saline Flush 0.9% IVP 10 ml 0100,0900,1700 SYLVIA Administration - Lab Result Fish Bone Diagrams: 01/25/18 10:49 01/25/18 10:49 - Additional Planning My Orders: My Active Orders 01/25/18 BMP - BASIC METABOLIC PANEL [CHEM] Routine CBC - COMP BLD CT W/AUTO DIFF [HEME] Routine 01/25/18 12:00 Insulin Aspart [NovoLOG] 2 - 10 unit SUBQ 0800,1200,1700,2100 Subjective - Subjective Patient Reports: Other (Somnolent. Voiting this afternoon.) Nursing Reports: Other (She woke up to eat breakfast, ate only part of it, and fell back asleep) Objective Vital Signs: Vital Signs - 24 hr 01/24/18 01/24/18 01/24/18 12:54 13:04 13:15 Temperature Heart Rate 125 H Heart Rate [ 120 H 120 H Monitoring electrodes] Respiratory 16 18 20 Rate Blood Pressure 140/82 H Blood Pressure 135/86 H 144/90 H [Right Brachial artery] O2 Saturation 99 100 100 01/24/18 01/24/18 01/24/18 13:32 13:45 14:00 Temperature 36.6 C Heart Rate Heart Rate [ 125 H 126 H Monitoring electrodes] Respiratory 20 20 20 Rate Blood Pressure Blood Pressure 126/85 H 135/85 H 135/86 H [Right Brachial artery] O2 Saturation 100 100 100 01/24/18 01/24/18 01/24/18 15:00 16:00 17:00 Temperature 37.0 C Heart Rate Heart Rate [ 128 H 132 H 129 H Monitoring electrodes] Respiratory 18 19 17 Rate Blood Pressure Blood Pressure 129/78 141/88 H 130/77 [Right Brachial artery] O2 Saturation 100 100 100 01/24/18 01/24/18 01/25/18 18:00 19:00 00:00 Temperature 98.6 C H 36.7 C Heart Rate Heart Rate [ 118 H 117 H 125 H Monitoring electrodes] Respiratory 19 19 21 Rate Blood Pressure Blood Pressure 134/89 H 125/83 H 121/75 [Right Brachial artery] O2 Saturation 100 100 99 01/25/18 08:00 Temperature 37.1 C Heart Rate Heart Rate [ 118 H Monitoring electrodes] Respiratory 14 Rate Blood Pressure Blood Pressure 158/100 H [Right Brachial artery] O2 Saturation 100 Oxygen O2 Source [Without Activity] Room air O2 Source Room air I&O (Last 24 Hrs): Intake and Output Totals x24h 01/23/18 01/24/18 01/25/18 23:59 23:59 23:59 Intake Total 3066.833 4005.000 Output Total 400 1000 Balance 2666.833 3005.000 General: Alert, Mild distress HEENT: Mucous membr. moist/pink Neck: Supple Neuro: Non Focal Cardiovascular: Regular rate Respiratory: No respiratory distress Abdomen: Other (Vomiting currently.) Extremities: Other (Several ttoes amputated) - Results Results: Laboratory Results WBC 7.7 x10^3/uL (4.8-10.8) 01/24/18 10:30 RBC 4.87 10^6/uL (4.20-5.40) 01/24/18 10:30 Hgb 11.0 g/dL (12.0-16.0) L 01/24/18 10:30 Hct 37.8 % (37.0-47.0) 01/24/18 10:30 MCV 77.6 fL (81.0-99.0) L 01/24/18 10:30 MCH 22.7 pg (27.0-31.0) L 01/24/18 10:30 MCHC 29.2 g/dL (32.0-36.0) L 01/24/18 10:30 RDW 18.6 % (12.0-15.0) H 01/24/18 10:30 Plt Count 643 10^3/uL (130-450) H 01/24/18 10:30 MPV 7.4 fL (7.9-10.8) L 01/24/18 10:30 Neut # (Auto) 5.8 10^3/uL (1.5-6.6) 01/24/18 10:30 Lymph # (Auto) 1.8 10^3/uL (1.5-3.5) 01/24/18 10:30 Alfalfa # (Auto) 0.1 10^3/uL (0.0-1.0) 01/24/18 10:30 Eos # (Auto) 0.0 10^3/uL (0.0-0.7) 01/24/18 10:30 Baso # (Auto) 0.0 10^3/uL (0.0-0.1) 01/24/18 10:30 Absolute Nucleated RBC 0.00 x10^3/uL 01/24/18 10:30 Nucleated RBC % 0.0 /100WBC 01/24/18 10:30 VBG pH 7.143 (7.31-7.41) L 01/24/18 14:40 VBG pCO2 23.7 mmHg (41-51) L 01/24/18 14:40 VBG pO2 111.3 mmHg (25-47) H 01/24/18 14:40 VBG HCO3 7.9 mmol/L (23-28) L 01/24/18 14:40 VBG Total CO2 8.7 mmol/L (24-29) L 01/24/18 14:40 VBG O2 Saturation 96.7 % (60-80) H 01/24/18 14:40 VBG Base Excess -19.4 mmol/L (-2 - +2) L 01/24/18 14:40 Sodium 134 mmol/L (135-145) L 01/24/18 23:05 Potassium 4.2 mmol/L (3.5-5.0) 01/24/18 23:05 Chloride 108 mmol/L (101-111) 01/24/18 23:05 Carbon Dioxide 15 mmol/L (21-32) L 01/24/18 23:05 Anion Gap 11.0 (6-13) 01/24/18 23:05 BUN 17 mg/dL (6-20) 01/24/18 23:05 Creatinine 0.8 mg/dL (0.4-1.0) 01/24/18 23:05 Estimated GFR (MDRD) 81 (>89) L 01/24/18 23:05 Glucose 226 mg/dL (70-100) H 01/24/18 23:05 Glycated Hemoglobin 10.5 % (4.6-6.2) H 01/24/18 10:30 Estim Average Glucose 255 (70-100) H 01/24/18 10:30 Calcium 7.4 mg/dL (8.5-10.3) L 01/24/18 23:05 Magnesium 2.0 mg/dL (1.7-2.8) 01/24/18 16:30 Total Bilirubin 2.3 mg/dL (0.2-1.0) H 01/24/18 10:30 AST 37 IU/L (10-42) 01/24/18 10:30 ALT 59 IU/L (10-60) 01/24/18 10:30 Alkaline Phosphatase 391 IU/L (42-121) H 01/24/18 10:30 Troponin I < 0.04 ng/mL (<0.49) 01/25/18 06:49 Total Protein 8.9 g/dL (6.7-8.2) H 01/24/18 10:30 Albumin 4.2 g/dL (3.2-5.5) 01/24/18 10:30 Globulin 4.7 g/dL (2.1-4.2) H 01/24/18 10:30 Albumin/Globulin Ratio 0.9 (1.0-2.2) L 01/24/18 10:30 Lipase 20 U/L (22-51) L 01/24/18 10:30 Urine Color YELLOW 01/24/18 10:05 Urine Clarity CLEAR (CLEAR) 01/24/18 10:05 Urine pH 5.5 PH (5.0-7.5) 01/24/18 10:05 Ur Specific [place] 1.025 (1.002-1.030) 01/24/18 10:05 Urine Protein NEGATIVE mg/dL (NEGATIVE) 01/24/18 10:05 Urine Glucose (UA) >=1000 mg/dL (NEGATIVE) H 01/24/18 10:05 Urine Ketones >=80 mg/dL (NEGATIVE) H 01/24/18 10:05 Urine Occult Blood NEGATIVE (NEGATIVE) 01/24/18 10:05 Urine Nitrite NEGATIVE (NEGATIVE) 01/24/18 10:05 Urine Bilirubin NEGATIVE (NEGATIVE) 01/24/18 10:05 Urine Urobilinogen 0.2 (NORMAL) E.U./dL (NORMAL) 01/24/18 10:05 Ur Leukocyte Esterase NEGATIVE (NEGATIVE) 01/24/18 10:05 Ur Microscopic Review NOT INDICATED 01/24/18 10:05 Urine Culture Comments NOT INDICATED 01/24/18 10:05 Urine HCG, Qual NEGATIVE 01/24/18 10:05 Urine Opiates Screen NEGATIVE (NEGATIVE) 01/24/18 10:05 Ur Oxycodone Screen NEGATIVE (NEGATIVE) 01/24/18 10:05 Urine Methadone Screen NEGATIVE (NEGATIVE) 01/24/18 10:05 Ur Propoxyphene Screen NEGATIVE (NEGATIVE) 01/24/18 10:05 Ur Barbiturates Screen NEGATIVE (NEGATIVE) 01/24/18 10:05 Ur Tricyclics Screen NEGATIVE (NEGATIVE) 01/24/18 10:05 Ur Phencyclidine Scrn NEGATIVE (NEGATIVE) 01/24/18 10:05 Ur Amphetamine Screen POSITIVE (NEGATIVE) H 01/24/18 10:05 U Methamphetamines Scrn POSITIVE (NEGATIVE) H 01/24/18 10:05 U Benzodiazepines Scrn NEGATIVE (NEGATIVE) 01/24/18 10:05 Urine Cocaine Screen NEGATIVE (NEGATIVE) 01/24/18 10:05 U Cannabinoids Screen NEGATIVE (NEGATIVE) 01/24/18 10:05 Serum Ketones MODERATE (NEGATIVE) H 01/25/18 06:49 - Procedures Procedures: Procedures DETACHMENT AT LEFT 4TH TOE, LOW, OPEN APPROACH (06/30/17) DETACHMENT AT RIGHT 1ST TOE, LOW, OPEN APPROACH (03/14/17) DETACHMENT AT RIGHT 2ND TOE, HIGH, OPEN APPROACH (06/30/17) DETACHMENT AT RIGHT 4TH TOE, HIGH, OPEN APPROACH (06/30/17) DRAINAGE OF L LOW ARM SUBCU/FASCIA, OPEN APPROACH (12/30/17) DRAINAGE OF RIGHT AXILLA, OPEN APPROACH (12/30/17) INSERT INFUSION DEV IN R INT JUGULAR VEIN, PERC (04/21/16) INSERTION OF INFUSION DEV INTO R SUBCLAV VEIN, PERC APPROACH (03/14/17) INSERTION OF INFUSION DEV INTO SUP VENA CAVA, PERC APPROACH (10/26/17) INSERTION OF INFUSION DEVICE INTO LOWER VEIN, PERC APPROACH (08/13/17) INSERTION OF INFUSION DEVICE INTO R ATRIUM, PERC APPROACH (01/13/18) TRANSFUSE NONAUT RED BLOOD CELLS IN CENTRAL VEIN, PERC (12/01/17) TRANSFUSE NONAUT RED BLOOD CELLS IN PERIPH VEIN, PERC (01/22/17) ULTRASONOGRAPHY OF RIGHT JUGULAR VEINS, GUIDANCE (04/21/16)
[2018-01-25 11:25] LABS: BASOPHILS % (AUTO) 0.6 %; EOSINOPHILS % (AUTO) 0.5 %; HGB - HEMOGLOBIN 8.1 g/dL (12.0-16.0); LYMPHOCYTES # (AUTO) 2.2 10^3/uL (1.5-3.5); LYMPHOCYTES % (AUTO) 28.8 %; MEAN CORPUSCULAR HEMOGLOBIN 23.1 pg (27.0-31.0); MEAN CORPUSCULAR HGB CONC 31.5 g/dL (32.0-36.0); MEAN CORPUSCULAR VOLUME 73.2 fL (81.0-99.0); MEAN PLATELET VOLUME 6.7 fL (7.9-10.8); MONOCYTES # (AUTO) 0.4 10^3/uL (0.0-1.0); MONOCYTES % (AUTO) 5.2 %; NEUTROPHILS # (AUTO) 4.9 10^3/uL (1.5-6.6); NEUTROPHILS % (AUTO) 64.9 %; PLT - PLATELET COUNT 495 10^3/uL (130-450); RED BLOOD COUNT 3.53 10^6/uL (4.20-5.40); RED CELL DISTRIBUTION WIDTH 18.4 % (12.0-15.0); WHITE BLOOD COUNT 7.5 x10^3/uL (4.8-10.8)
[2018-01-25 11:35] LABS: CALCIUM 7.7 mg/dL (8.5-10.3); CREATININE 0.6 mg/dL (0.4-1.0)
[2018-01-25] MEDS ORDERED: INSULIN ASPART 300 UNIT/3 ML PEN SUBQ SCH (12:00)
[2018-01-25] MEDS: KETOROLAC 15 MG/ML VIAL IVP PRN (12:23)
[2018-01-25] MEDS: ONDANSETRON ODT 4 MG TABLET TL PRN (12:45)
[2018-01-25] MEDS: PROCHLORPERAZINE 10 MG/2 ML VIAL IVP PRN ×2 (14:58→23:26)
--- NOTE | 2018-01-25 16:30 | CONSULTATION NOTE ---
Referring Provider Name of Referring Provider:: Jayshree Vides MD Consult Date: 01/25/18 History of Present Illness - History of Present Illness HPI Comment/Other: I was asked to consult Ms. Calero for a white lesion seen by the RN during cleaning. The RN saw a white circular lesion, about 1.5 cm in diameter, on right labia major externally. The patient stated that she did not want to be examined. She said, "I just have an ingrown hair on my twat." This was witnessed by the RN and WASHING MACHINE STRIPER. Dr. Vides informed. History - Past Medical History Cardiovascular: reports: Hypertension, High cholesterol, Peripheral Vascular Disease, SD Respiratory: reports: None Neuro: reports: Peripheral neuropathy, Other Endocrine/Autoimmune: reports: Type 1 diabetes GI: reports: Pancreatitis JOB RECRUITER: reports: None : reports: None HEENT: reports: None Psych: reports: Depression, Anxiety, Panic attacks Musculoskeletal: reports: Fibromyalgia Derm: reports: None MRSA Hx?: Yes - Past Surgical History General: reports: Cholecystectomy HEENT: reports: Tonsil/Adenoidectomy - Family & Social History Family History: Father: , CAD, CVA/TIA, Hyperlipidemia, Hypertension, SD Social History Notes: The patient is homeless and lives in a tent. 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 The patient has 2 children who live with her stepmother as she has been unable to get her life together enough to be able to help raise them. She has been living on [facility] for the last 4 years prior to that she lived in [place]. She does smoke a few cigarettes a day denies any alcohol use. She does continue to use methamphetamine. - Substance History Use: Uses substance without health or social issues: NONE - POLST Patient has POLST: No POLST Status: Full Code Meds/Allgy - Home Medications Home Medications: Ambulatory Orders Medication Instructions Recorded Confirmed Amitriptyline [Elavil] 25 mg PO HS #20 tablet 01/06/18 01/25/18 Aspirin [Aspirin EC] 81 mg PO DAILY #30 tablet. 01/06/18 01/25/18 Cilostazol [Pletal] 100 mg PO BID #60 tablet 01/06/18 01/25/18 DULoxetine [Cymbalta] 60 mg PO DAILY #30 capsule 01/06/18 01/25/18 HYDROmorphone [Dilaudid] 2 mg PO DAILY PRN #4 tablet 01/06/18 01/25/18 Ibuprofen [Motrin] 600 mg PO Q6HR PRN #60 tablet 01/06/18 01/25/18 Insulin Aspart [NovoLOG] 15 unit SUBQ TIDWM #1 pen 01/06/18 01/25/18 Insulin Glargine [Lantus Solostar] 40 unit SUBQ QPM #3 pen 01/06/18 01/25/18 Metoclopramide [Reglan] 10 mg PO ACHS #60 tablet 01/06/18 01/25/18 Metoprolol Succinate [Toprol Xl] 25 mg PO BID #60 tablet 01/06/18 01/25/18 diltiaZEM CD [Cardizem Cd] 120 mg PO DAILY #30 capsule 01/06/18 01/25/18 traMADol [Ultram] 50 mg PO Q6H PRN #10 tablet 01/06/18 01/25/18 - Allergies Allergies/Adverse Reactions: Allergies Allergy/AdvReac Type Severity Reaction Status Date / Time codeine Allergy Hives Verified 01/13/18 10:25 hydrocodone Allergy Hives Verified 01/13/18 10:25 morphine Allergy Itching Verified 01/13/18 10:25 milk AdvReac Cramps Verified 01/13/18 10:25 nitrofurantoin AdvReac Headache Verified 01/13/18 10:25 [From Macrobid] PAPER TAPE AdvReac Unknown Uncoded 01/13/18 10:25 Exam - Vital Signs Vital Signs: Vital Signs x48h Temp Pulse Resp BP Pulse Ox 01/25/18 15:51 98.8 F 112 H 22 155/96 H 100 01/25/18 12:00 97.9 F 120 H 20 145/89 H 100 - Physical Exam General Appearance: positive: Other (Very thin caucasin woman who appears to be older than her stated age. Somulent.) Conclusion/Plan - Diagnosis Diagnosis: Vulvar lesion - Plan Plan: Patient has declined consultation. Recommend patient see JOB RECRUITER on an outpatient basis. - Lab Results Fish Bones: 01/25/18 10:49 01/25/18 10:49
[2018-01-25] MEDS: METOCLOPRAMIDE 10 MG/2 ML VIAL IVP SCH ×2 (17:07→21:10)
[2018-01-25] MEDS: METOPROLOL 5 MG/5 ML VIAL IVP SCH (17:58)
[2018-01-25] MEDS ORDERED: INSULIN ASPART 300 UNIT/3 ML PEN SUBQ ONE (21:15)
[2018-01-25] MEDS ORDERED: SODIUM CHLORIDE 0.9% 50 ML IV ONE (21:38)
[2018-01-25] MEDS: diltiaZEM INJ 5 MG/ML VIAL IVP SCH (22:34)
[2018-01-26] MEDS: PROCHLORPERAZINE 10 MG/2 ML VIAL IVP PRN
[2018-01-26] MEDS ORDERED: CYCLOBENZAPRINE 10 MG TABLET PO PRN (00:31)
[2018-01-26] MEDS ORDERED: GABAPENTIN 300 MG CAPSULE ONE (01:01)
[2018-01-26] MEDS ORDERED: CYCLOBENZAPRINE 10 MG TABLET PO ONE (01:02)
[2018-01-26] MEDS: SODIUM CHLORIDE FLUSH 0.9% 10 ML SYRINGE IVP SCH ×3 (01:03→16:38)
[2018-01-26] MEDS: METOPROLOL 5 MG/5 ML VIAL IVP SCH ×5 (01:08→23:50)
[2018-01-26] MEDS ORDERED: AMITRIPTYLINE 25 MG TABLET PO PRN (01:35)
[2018-01-26] MEDS ORDERED: diazePAM 5 MG TABLET PO PRN (01:36)
[2018-01-26] MEDS: NS W/20 MEQ KCL 1,000 ML IV SCH ×4 (06:40→23:10)
[2018-01-26] MEDS: diltiaZEM INJ 5 MG/ML VIAL IVP SCH ×3 (06:54→22:01)
[2018-01-26] MEDS: METOCLOPRAMIDE 10 MG/2 ML VIAL IVP SCH ×4 (06:55→21:00)
[2018-01-26] MEDS: INSULIN ASPART 300 UNIT/3 ML PEN SUBQ SCH ×7 (08:27→21:01)
[2018-01-26] MEDS: POLYETHYLENE GLYCOL 3350 17 GM PACKET PO SCH (08:36)
[2018-01-26] MEDS: INSULIN GLARGINE 300 UNIT/3 ML PEN SUBQ SCH ×2 (08:49→21:01)
[2018-01-26] MEDS: ENOXAPARIN 40 MG/0.4 ML SYRINGE SUBQ SCH (08:50)
--- NOTE | 2018-01-26 12:07 | PROVIDER PROGRESS NOTE ---
Assessment/Plan - Problem List (1) DKA (diabetic ketoacidoses) Qualifiers: Diabetes mellitus type: other specified (including BRAYDEN) Diabetes mellitus complication detail: without coma Qualified Code(s): E13.10 - Other specified diabetes mellitus with ketoacidosis without coma Assessment/Plan: Pt still has abd pain and nausea. Her am labs show an increase of serum ketones. Will continue iv hydration. Will try to advance diet today plus use the scheduled Reglan. (2) Muscle spasm Assessment/Plan: Overnight she had a new problem with spasms of R arm/shoulder. She needed muscle relaxants. These may be adding to her lethargy today. Will decrease sedatives. (3) Methamphetamine abuse Assessment/Plan: She is still groggy today, as seen during recovery from Meth use. (5) PVD (peripheral vascular disease) Assessment/Plan: Still on iv meds due to nausea, therefore her meds for PVD and CAD will be started when she is able to tolerate food in the stomach. (6) Coronary artery disease with history of myocardial infarction without history of CABG Assessment/Plan: Still on iv meds due to nausea, therefore her meds for PVD and CAD will be started when she is able to tolerate food in the stomach. (7) Hypertension Qualifiers: Hypertension type: essential hypertension Qualified Code(s): I10 - Essential (primary) hypertension Assessment/Plan: BP controlled on iv meds. Will transition to po when able. (8) Depression Assessment/Plan: Still on iv meds due to nausea, therefore her po meds will be started when she is able to tolerate food in the stomach. - Current Meds Current Meds: Current Medications Generic Name Dose Route Start Last Admin Trade Name Freq PRN Reason Stop Dose Admin Diltiazem HCl 5 mg 01/25/18 22:00 01/26/18 06:54 Cardizem Inj IVP 5 mg TID SYLVIA Administration Enoxaparin Sodium 40 mg 01/25/18 09:00 01/26/18 08:50 Lovenox SUBQ 40 mg DAILY SYLVIA Administration Haloperidol 2 mg 01/24/18 22:13 01/25/18 22:34 Haldol Inj IVP 2 mg QPM PRN Administration Agitation Promethazine HCl 25 mg/ Sodium 51 mls @ 100 mls/hr 01/24/18 18:51 01/25/18 22:30 Chloride IV Infused Q6H PRN Infusion Nausea / Vomiting Potassium Chloride/Sodium Chloride 1,000 mls @ 125 mls/hr 01/25/18 22:12 01/26/18 11:00 Normal Saline 0.9% W/20 Meq Kcl IV 01/27/18 22:11 125 mls/hr .Q8H SLYVIA Infusion Insulin Aspart 5 unit 01/25/18 08:00 01/26/18 11:55 Novolog SUBQ 5 unit TIDWM SYLVIA Administration Protocol Insulin Aspart 3 - 11 unit 01/25/18 17:00 01/26/18 11:55 Novolog SUBQ 7 unit 0800,1200,1700,2100 SYLVIA Administration Protocol Insulin Glargine 40 unit 01/24/18 21:00 01/26/18 08:49 Lantus Solostar SUBQ 40 unit BID SYLVIA Administration Ketorolac Tromethamine 15 mg 01/24/18 18:50 01/25/18 12:23 Toradol Inj (15mg) IVP 15 mg Q6HR PRN Administration PAIN Metoclopramide HCl 5 mg 01/25/18 17:00 01/26/18 11:19 Reglan Inj IVP 5 mg ACHS SYLVIA Administration Metoprolol Tartrate 5 mg 01/25/18 18:00 01/26/18 06:53 Lopressor Inj IVP 5 mg Q6HR SYLVIA Administration Ondansetron HCl 4 mg 01/24/18 12:43 01/25/18 12:45 Zofran Odt TL 4 mg Q6HR PRN Administration Nausea / Vomiting Polyethylene Glycol 17 gm 01/25/18 09:00 01/26/18 08:36 Miralax PO Not Given DAILY [facility] Prochlorperazine Edisylate 10 mg 01/24/18 12:43 01/26/18 00:00 Compazine Inj IVP 10 mg Q6HR PRN Administration Nausea / Vomiting Sodium Chloride 10 ml 01/24/18 12:43 01/24/18 23:05 Normal Saline Flush 0.9% IVP 30 ml PRN PRN Administration NEEDED PER PROVIDER ORDERS Sodium Chloride 10 ml 01/24/18 17:00 01/26/18 08:50 Normal Saline Flush 0.9% IVP 10 ml 0100,0900,1700 SYLVIA Administration - Lab Result Fish Bone Diagrams: 01/25/18 10:49 01/25/18 10:49 - Additional Planning My Orders: My Active Orders 01/25/18 17:00 Insulin Aspart [NovoLOG] 3 - 11 unit SUBQ 0800,1200,1700,2100 Metoclopramide Inj [Reglan Inj] 5 mg IVP ACHS 01/25/18 18:00 Metoprolol Inj [Lopressor Inj] 5 mg IVP Q6HR 01/25/18 22:00 diltiaZEM INJ [Cardizem Inj] 5 mg IVP TID 01/26/18 Lunch Carb-controlled Diet [DIET] Subjective - Subjective Patient Reports: Abdominal Pain, Nausea Objective Vital Signs: Vital Signs - 24 hr 01/25/18 01/25/18 01/25/18 15:51 17:58 18:03 Temperature 37.1 C Heart Rate [ 112 H 98 Monitoring electrodes] Respiratory 22 20 Rate Blood Pressure 179/111 H Blood Pressure 155/96 H 158/101 H [Right Brachial artery] O2 Saturation 100 01/25/18 01/25/18 01/25/18 18:08 18:23 18:38 Temperature Heart Rate [ 101 H 105 H 101 H Monitoring electrodes] Respiratory Rate Blood Pressure Blood Pressure 152/98 H 157/97 H 137/87 H [Right Brachial artery] O2 Saturation 01/25/18 01/25/18 01/25/18 18:53 20:09 20:14 Temperature 36.6 C 36.6 C Heart Rate [ 107 H 102 H 101 H Monitoring electrodes] Respiratory 21 21 Rate Blood Pressure Blood Pressure 140/90 H 160/99 H 160/99 H [Right Brachial artery] O2 Saturation 98 98 01/25/18 01/25/18 01/25/18 20:30 21:00 21:30 Temperature Heart Rate [ 107 H 100 106 H Monitoring electrodes] Respiratory 16 17 17 Rate Blood Pressure Blood Pressure 161/89 H [Right Brachial artery] O2 Saturation 98 01/25/18 01/26/18 01/26/18 22:36 00:00 01:08 Temperature 36.7 C Heart Rate [ 127 H 99 Monitoring electrodes] Respiratory 20 16 Rate Blood Pressure 157/82 H Blood Pressure 142/89 H 157/82 H [Right Brachial artery] O2 Saturation 98 98 01/26/18 01/26/18 01/26/18 06:50 06:53 06:54 Temperature Heart Rate [ 90 Monitoring electrodes] Respiratory Rate Blood Pressure 148/95 H 148/95 H Blood Pressure 148/95 H [Right Brachial artery] O2 Saturation 01/26/18 01/26/18 01/26/18 06:55 06:59 08:00 Temperature Heart Rate [ 90 86 89 Monitoring electrodes] Respiratory 18 Rate Blood Pressure Blood Pressure 142/78 H 130/85 H 132/74 H [Right Brachial artery] O2 Saturation 98 01/26/18 11:47 Temperature Heart Rate [ 85 Monitoring electrodes] Respiratory 20 Rate Blood Pressure Blood Pressure 132/85 H [Right Brachial artery] O2 Saturation 98 Oxygen O2 Source [Without Activity] Room air O2 Source Room air I&O (Last 24 Hrs): Intake and Output Totals x24h 01/24/18 01/25/18 01/26/18 23:59 23:59 23:59 Intake Total 3066.833 8375.583 2259.584 Output Total 400 3350 400 Balance 2666.833 5025.583 1859.584 General: Mild distress, Other (Appears fatigued) HEENT: Other (Temporal wasting, mouth edentiulous, mucossa moist) Neck: Supple, No JVD Neuro: Alert Cardiovascular: Regular rate, No murmurs Respiratory: No respiratory distress, Breath sounds nml Extremities: Other (No edema or redness, several toes amputated.) - Results Results: Laboratory Results WBC 7.5 x10^3/uL (4.8-10.8) 01/25/18 10:49 RBC 3.53 10^6/uL (4.20-5.40) L 01/25/18 10:49 Hgb 8.1 g/dL (12.0-16.0) L 01/25/18 10:49 Hct 25.9 % (37.0-47.0) L 01/25/18 10:49 MCV 73.2 fL (81.0-99.0) L 01/25/18 10:49 MCH 23.1 pg (27.0-31.0) L 01/25/18 10:49 MCHC 31.5 g/dL (32.0-36.0) L 01/25/18 10:49 RDW 18.4 % (12.0-15.0) H 01/25/18 10:49 Plt Count 495 10^3/uL (130-450) H 01/25/18 10:49 MPV 6.7 fL (7.9-10.8) L 01/25/18 10:49 Neut # (Auto) 4.9 10^3/uL (1.5-6.6) 01/25/18 10:49 Lymph # (Auto) 2.2 10^3/uL (1.5-3.5) 01/25/18 10:49 [place] # (Auto) 0.4 10^3/uL (0.0-1.0) 01/25/18 10:49 Eos # (Auto) 0.0 10^3/uL (0.0-0.7) 01/25/18 10:49 Baso # (Auto) 0.0 10^3/uL (0.0-0.1) 01/25/18 10:49 Absolute Nucleated RBC 0.00 x10^3/uL 01/25/18 10:49 Nucleated RBC % 0.0 /100WBC 01/25/18 10:49 VBG pH 7.143 (7.31-7.41) L 01/24/18 14:40 VBG pCO2 23.7 mmHg (41-51) L 01/24/18 14:40 VBG pO2 111.3 mmHg (25-47) H 01/24/18 14:40 VBG HCO3 7.9 mmol/L (23-28) L 01/24/18 14:40 VBG Total CO2 8.7 mmol/L (24-29) L 01/24/18 14:40 VBG O2 Saturation 96.7 % (60-80) H 01/24/18 14:40 VBG Base Excess -19.4 mmol/L (-2 - +2) L 01/24/18 14:40 Sodium 134 mmol/L (135-145) L 01/25/18 10:49 Potassium 4.0 mmol/L (3.5-5.0) 01/25/18 10:49 Chloride 105 mmol/L (101-111) 01/25/18 10:49 Carbon Dioxide 19 mmol/L (21-32) L 01/25/18 10:49 Anion Gap 10.0 (6-13) 01/25/18 10:49 BUN 8 mg/dL (6-20) 01/25/18 10:49 Creatinine 0.6 mg/dL (0.4-1.0) 01/25/18 10:49 Estimated GFR (MDRD) 113 (>89) 01/25/18 10:49 Glucose 197 mg/dL (70-100) H 01/25/18 10:49 Glycated Hemoglobin 10.5 % (4.6-6.2) H 01/24/18 10:30 Estim Average Glucose 255 (70-100) H 01/24/18 10:30 Calcium 7.7 mg/dL (8.5-10.3) L 01/25/18 10:49 Magnesium 2.0 mg/dL (1.7-2.8) 01/24/18 16:30 Total Bilirubin 2.3 mg/dL (0.2-1.0) H 01/24/18 10:30 AST 37 IU/L (10-42) 01/24/18 10:30 ALT 59 IU/L (10-60) 01/24/18 10:30 Alkaline Phosphatase 391 IU/L (42-121) H 01/24/18 10:30 Troponin I < 0.04 ng/mL (<0.49) 01/25/18 06:49 Total Protein 8.9 g/dL (6.7-8.2) H 01/24/18 10:30 Albumin 4.2 g/dL (3.2-5.5) 01/24/18 10:30 Globulin 4.7 g/dL (2.1-4.2) H 01/24/18 10:30 Albumin/Globulin Ratio 0.9 (1.0-2.2) L 01/24/18 10:30 Lipase 20 U/L (22-51) L 01/24/18 10:30 Urine Color YELLOW 01/24/18 10:05 Urine Clarity CLEAR (CLEAR) 01/24/18 10:05 Urine pH 5.5 PH (5.0-7.5) 01/24/18 10:05 Ur Specific [place] 1.025 (1.002-1.030) 01/24/18 10:05 Urine Protein NEGATIVE mg/dL (NEGATIVE) 01/24/18 10:05 Urine Glucose (UA) >=1000 mg/dL (NEGATIVE) H 01/24/18 10:05 Urine Ketones >=80 mg/dL (NEGATIVE) H 01/24/18 10:05 Urine Occult Blood NEGATIVE (NEGATIVE) 01/24/18 10:05 Urine Nitrite NEGATIVE (NEGATIVE) 01/24/18 10:05 Urine Bilirubin NEGATIVE (NEGATIVE) 01/24/18 10:05 Urine Urobilinogen 0.2 (NORMAL) E.U./dL (NORMAL) 01/24/18 10:05 Ur Leukocyte Esterase NEGATIVE (NEGATIVE) 01/24/18 10:05 Ur Microscopic Review NOT INDICATED 01/24/18 10:05 Urine Culture Comments NOT INDICATED 01/24/18 10:05 Urine HCG, Qual NEGATIVE 01/24/18 10:05 Urine Opiates Screen NEGATIVE (NEGATIVE) 01/24/18 10:05 Ur Oxycodone Screen NEGATIVE (NEGATIVE) 01/24/18 10:05 Urine Methadone Screen NEGATIVE (NEGATIVE) 01/24/18 10:05 Ur Propoxyphene Screen NEGATIVE (NEGATIVE) 01/24/18 10:05 Ur Barbiturates Screen NEGATIVE (NEGATIVE) 01/24/18 10:05 Ur Tricyclics Screen NEGATIVE (NEGATIVE) 01/24/18 10:05 Ur Phencyclidine Scrn NEGATIVE (NEGATIVE) 01/24/18 10:05 Ur Amphetamine Screen POSITIVE (NEGATIVE) H 01/24/18 10:05 U Methamphetamines Scrn POSITIVE (NEGATIVE) H 01/24/18 10:05 U Benzodiazepines Scrn NEGATIVE (NEGATIVE) 01/24/18 10:05 Urine Cocaine Screen NEGATIVE (NEGATIVE) 01/24/18 10:05 U Cannabinoids Screen NEGATIVE (NEGATIVE) 01/24/18 10:05 Serum Ketones MODERATE (NEGATIVE) H 01/26/18 08:17 - Procedures Procedures: Procedures DETACHMENT AT LEFT 4TH TOE, LOW, OPEN APPROACH (06/30/17) DETACHMENT AT RIGHT 1ST TOE, LOW, OPEN APPROACH (03/14/17) DETACHMENT AT RIGHT 2ND TOE, HIGH, OPEN APPROACH (06/30/17) DETACHMENT AT RIGHT 4TH TOE, HIGH, OPEN APPROACH (06/30/17) DRAINAGE OF L LOW ARM SUBCU/FASCIA, OPEN APPROACH (12/30/17) DRAINAGE OF RIGHT AXILLA, OPEN APPROACH (12/30/17) INSERT INFUSION DEV IN R INT JUGULAR VEIN, PERC (04/21/16) INSERTION OF INFUSION DEV INTO R SUBCLAV VEIN, PERC APPROACH (03/14/17) INSERTION OF INFUSION DEV INTO SUP VENA CAVA, PERC APPROACH (10/26/17) INSERTION OF INFUSION DEVICE INTO LOWER VEIN, PERC APPROACH (08/13/17) INSERTION OF INFUSION DEVICE INTO R ATRIUM, PERC APPROACH (01/13/18) TRANSFUSE NONAUT RED BLOOD CELLS IN CENTRAL VEIN, PERC (12/01/17) TRANSFUSE NONAUT RED BLOOD CELLS IN PERIPH VEIN, PERC (01/22/17) ULTRASONOGRAPHY OF RIGHT JUGULAR VEINS, GUIDANCE (04/21/16)
[2018-01-26] MEDS: KETOROLAC 15 MG/ML VIAL IVP PRN (16:09)
[2018-01-26] MEDS: SODIUM CHLORIDE FLUSH 0.9% 10 ML SYRINGE IVP PRN (18:12)
[2018-01-26] MEDS ORDERED: GABAPENTIN 300 MG CAPSULE PO SCH (21:00)
[2018-01-27] MEDS: SODIUM CHLORIDE FLUSH 0.9% 10 ML SYRINGE IVP SCH ×2 (01:42→09:11)
[2018-01-27 04:53] LABS: KETONES, SERUM (ACETEST) SMALL (NEGATIVE)
[2018-01-27 04:56] LABS: BUN - BLOOD UREA NITROGEN 9 mg/dL (6-20); CALCIUM 7.5 mg/dL (8.5-10.3); CARBON DIOXIDE - CO2 27 mmol/L (21-32); CHLORIDE 106 mmol/L (101-111); CREATININE 0.4 mg/dL (0.4-1.0); GFR - MDRD 181 (>89); GLUCOSE 90 mg/dL (70-100); SODIUM 138 mmol/L (135-145)
[2018-01-27 04:59] LABS: BASOPHILS % (AUTO) 0.5 %; EOSINOPHILS # (AUTO) 0.1 10^3/uL (0.0-0.7); EOSINOPHILS % (AUTO) 2.5 %; HGB - HEMOGLOBIN 8.1 g/dL (12.0-16.0); LYMPHOCYTES # (AUTO) 2.3 10^3/uL (1.5-3.5); LYMPHOCYTES % (AUTO) 51.1 %; MEAN CORPUSCULAR HEMOGLOBIN 22.4 pg (27.0-31.0); MEAN CORPUSCULAR HGB CONC 30.1 g/dL (32.0-36.0); MEAN CORPUSCULAR VOLUME 74.4 fL (81.0-99.0); MEAN PLATELET VOLUME 6.7 fL (7.9-10.8); MONOCYTES # (AUTO) 0.3 10^3/uL (0.0-1.0); MONOCYTES % (AUTO) 6.8 %; NEUTROPHILS # (AUTO) 1.8 10^3/uL (1.5-6.6); NEUTROPHILS % (AUTO) 39.1 %; PLT - PLATELET COUNT 365 10^3/uL (130-450); RED BLOOD COUNT 3.63 10^6/uL (4.20-5.40); RED CELL DISTRIBUTION WIDTH 18.1 % (12.0-15.0); WHITE BLOOD COUNT 4.5 x10^3/uL (4.8-10.8)
[2018-01-27] MEDS: diltiaZEM INJ 5 MG/ML VIAL IVP SCH ×2 (05:52→14:18)
[2018-01-27] MEDS: POTASSIUM CHLOR 10 MEQ/100 ML 10 MEQ/100 ML BAG IV SCH ×2 (05:52→06:50)
[2018-01-27] MEDS: METOPROLOL 5 MG/5 ML VIAL IVP SCH ×2 (06:05→12:10)
[2018-01-27] MEDS: METOCLOPRAMIDE 10 MG/2 ML VIAL IVP SCH ×2 (06:52→11:05)
[2018-01-27] MEDS ORDERED: POTASSIUM CHLOR 20 MEQ/100 ML 20 MEQ/100 ML BAG IV ONE (07:11)
[2018-01-27] MEDS: NS W/20 MEQ KCL 1,000 ML IV SCH (07:21)
[2018-01-27] MEDS: INSULIN ASPART 300 UNIT/3 ML PEN SUBQ SCH ×4 (08:28→11:51)
[2018-01-27] MEDS: CALCIUM CITRATE 250 MG TABLET PO SCH ×2 (09:03→12:15)
[2018-01-27] MEDS: INSULIN GLARGINE 300 UNIT/3 ML PEN SUBQ SCH (09:08)
[2018-01-27] MEDS: POLYETHYLENE GLYCOL 3350 17 GM PACKET PO SCH (09:09)
[2018-01-27] MEDS: ENOXAPARIN 40 MG/0.4 ML SYRINGE SUBQ SCH (09:09)
[2018-01-27 12:03] LABS: ALBUMIN 2.6 g/dL (3.2-5.5); ALBUMIN/GLOBULIN RATIO 0.9 (1.0-2.2); BILIRUBIN,TOTAL 0.4 mg/dL (0.2-1.0); CALCIUM 7.7 mg/dL (8.5-10.3); CREATININE 0.5 mg/dL (0.4-1.0); TOTAL PROTEIN 5.5 g/dL (6.7-8.2)
[2018-01-27 12:12] VITALS: BP 162/103
[2018-01-27] MEDS: KETOROLAC 15 MG/ML VIAL IVP PRN (12:12)
--- NOTE | 2018-01-27 13:23 | Discharge Plan ---
Discharge Plan Disposition: 01 Home, Self Care Condition: Stable Diet: Diabetic Activity Restrictions: Activity as Tolerated No Smoking: If you smoke, Please STOP! Call for help.
--- NOTE | 2018-01-29 20:42 | DISCHARGE SUMMARY ---
Physician: Jayshree Vides MD DATE OF ADMISSION: 01/24/2018 DATE OF DISCHARGE: 01/27/2018 HISTORY OF PRESENT ILLNESS: This is a 37-year-old white female with a history of type 1 diabetes, frequent admissions for DKA due to noncompliance, meth abuse, homelessness, CAD, PVD, osteomyelitis with prior toe amputations, personality disorder, recent arm and axillae abscesses which have now healed. The patient presented with meth abuse and was found semiconscious and vomiting and admitted for another episode of DKA. HOSPITAL COURSE AND DISCHARGE DIAGNOSES 1. Diabetic ketoacidosis. The patient was managed with standard DKA protocol. When her nausea and abdominal pain resolved, her diet was advanced from bowel rest to clear liquids and then solids and she was discharged with the same insulin orders. 2. Amphetamine abuse. This is a recurrent problem and she was positive on her toxicology screen for meth. 3. Hypertension. The patient was put back on her p.o. medications when able to take a diet. 4. Coronary artery disease. She had no complaints of angina while here and her aspirin and other medications were resumed. 5. Peripheral vascular disease. The patient had no complaints of leg or toe pain and her Pletal and other medications were continued when possible. 6. Homeless. This has been a concern and social work has tried multiple times to assist her, but she has been noncompliant and released from various centers, friend's homes and was even sent to an inpatient psych center earlier this year, was discharged and is still homeless. 7. Noncompliance. This goes in parallel with her drug habit and overall poor health and psychiatric problems. LABORATORY AND IMAGING: Reviewed and summarized above. ALLERGIES: Many. DISCHARGE MEDICATIONS 1. Ibuprofen p.r.n. 2. Amitriptyline 25 mg at bedtime. 3. Baby aspirin daily. 4. Pletal 100 mg b.i.d. 5. Cardizem CD 120 mg daily. 6. Cymbalta 60 mg daily. 7. Dilaudid 2 mg 2 tablets. 8. NovoLog insulin. 9. Lantus insulin. 10. Reglan 10 mg before meals and at bedtime. 11. Toprol-XL 25 mg b.i.d. 12. Ultram 50 mg q.i.d. p.r.n. CONDITION AT DISCHARGE: Stable. PHYSICAL EXAMINATION VITAL SIGNS: Blood pressure 160/100, heart rate 81 in sinus rhythm, afebrile, room air saturation 95%. HEENT: Edentulous female and she is poorly kempt. NECK: Without JVD. CHEST: Clear. HEART: Sounds normal. ABDOMEN: Soft. EXTREMITIES: Have no edema. Several toes are amputated. NEUROLOGIC: Intact. FOLLOWUP: She has been advised to be compliant with clinic appointments. CODE STATUS: FULL CODE. Time required to complete the entire discharge: 30 minutes. TD: 01/29/2018 19:48 [email or web address]
== END 2018-01-27 14:55 | disposition home or self-care (01) | DRG 638 ==
LOC: EDUNIT# → ED 09:45 → UNDOADMIN 12:43 → ICU 12:43
PROVIDERS: ADMIT Specialist; ATTEND Internal Medicine
PROC: 02HV33Z Insertion of Infusion Device into Superior Vena Cava, Percutaneous Approach (ICD-10-PCS; principal; 2018-01-24)
DX: E10.10 Type 1 diabetes mellitus with ketoacidosis without coma (principal); E87.1 Hypo-osmolality and hyponatremia; R64 Cachexia; F15.10 Other stimulant abuse, uncomplicated; E10.51 Type 1 diabetes mellitus with diabetic peripheral angiopathy without gangrene; E10.42 Type 1 diabetes mellitus with diabetic polyneuropathy; I10 Essential (primary) hypertension; M79.7 Fibromyalgia; Z59.0 Homelessness; Z91.19 Patient's noncompliance with other medical treatment and regimen; T38.3X6A Underdosing of insulin and oral hypoglycemic [antidiabetic] drugs, initial encounter; F32.9 Major depressive disorder, single episode, unspecified; N90.89 Other specified noninflammatory disorders of vulva and perineum; F41.0 Panic disorder [episodic paroxysmal anxiety]; F17.210 Nicotine dependence, cigarettes, uncomplicated; D64.9 Anemia, unspecified; M62.838 Other muscle spasm; I25.10 Atherosclerotic heart disease of native coronary artery without angina pectoris; E78.00 Pure hypercholesterolemia, unspecified; Z68.20 Body mass index [BMI] 20.0-20.9, adult; Z89.429 Acquired absence of other toe(s), unspecified side; Z79.82 Long term (current) use of aspirin; Z79.891 Long term (current) use of opiate analgesic; I25.2 Old myocardial infarction; Z87.19 Personal history of other diseases of the digestive system
CPT/HCPCS: 36415; 71045; 80048; 80053; 80306; 81001; 81003; 81025; 82009; 82803; 82947; 83036; 83690; 83735; 84484; 85025; 87086; 87150; 87640; 93005; 96361; 96374; 96375; 99283; 99284

== ENCOUNTER 2018-02-06 13:37 | Outpatient (CLI) | payer MEDICAID | END 2018-02-06 13:38 | disposition critical access hospital (66) | LOC: EMS 13:37 | PROVIDERS: ATTEND Surgery | DX: R73.09 Other abnormal glucose (principal); T69.9XXA Effect of reduced temperature, unspecified, initial encounter; X31.XXXA Exposure to excessive natural cold, initial encounter | CPT/HCPCS: A0425; A0429; A0999 ==

== ENCOUNTER 2018-02-06 13:55 | Inpatient (IN) | payer MEDICAID ==
--- NOTE | 2018-02-06 14:42 | ED Physician Documentation ---
History of Present Illness - Stated complaint Stated Complaint: COLD - Chief complaint Chief Complaint: General - History obtained from History obtained from: Patient - History of Present Illness Timing: Today (This is a 37-year-old woman with brittle diabetes and medical noncompliance and homelessness as well as drug abuse who presents by ambulance because she feels cold because she was outside today. Her blood sugar in route was only 188 but she feels like she might be in DKA. Her only other complaint is total body pain without focality or injury.) Review of Systems Constitutional: reports: Chills, Fatigue. denies: Fever Throat: denies: Sore throat Cardiac: denies: Chest pain / pressure, Palpitations Respiratory: denies: Dyspnea PD PAST MEDICAL HISTORY - Past Medical History Cardiovascular: Hypertension, High cholesterol, Peripheral Vascular Disease, [place] Respiratory: None Neuro: Peripheral neuropathy, Other Endocrine/Autoimmune: Type 1 diabetes GI: Pancreatitis TURBINE INSPECTOR: None : None HEENT: None Psych: Depression, Anxiety, Panic attacks Musculoskeletal: Fibromyalgia Derm: None - Past Surgical History Past Surgical History: Yes General: Cholecystectomy HEENT: Tonsil/Adenoidectomy - Present Medications Home Medications: Ambulatory Orders Medication Instructions Recorded Confirmed Amitriptyline [Elavil] 25 mg PO HS #20 tablet 01/06/18 01/25/18 Aspirin [Aspirin EC] 81 mg PO DAILY #30 tablet. 01/06/18 01/25/18 Cilostazol [Pletal] 100 mg PO BID #60 tablet 01/06/18 01/25/18 DULoxetine [Cymbalta] 60 mg PO DAILY #30 capsule 01/06/18 01/25/18 HYDROmorphone [Dilaudid] 2 mg PO DAILY PRN #4 tablet 01/06/18 01/25/18 Ibuprofen [Motrin] 600 mg PO Q6HR PRN #60 tablet 01/06/18 01/25/18 Insulin Aspart [NovoLOG] 15 unit SUBQ TIDWM #1 pen 01/06/18 01/25/18 Insulin Glargine [Lantus Solostar] 40 unit SUBQ QPM #3 pen 01/06/18 01/25/18 Metoclopramide [Reglan] 10 mg PO ACHS #60 tablet 01/06/18 01/25/18 Metoprolol Succinate [Toprol Xl] 25 mg PO BID #60 tablet 01/06/18 01/25/18 diltiaZEM CD [Cardizem Cd] 120 mg PO DAILY #30 capsule 01/06/18 01/25/18 traMADol [Ultram] 50 mg PO Q6H PRN #10 tablet 01/06/18 01/25/18 - Allergies Allergies/Adverse Reactions: Allergies Allergy/AdvReac Type Severity Reaction Status Date / Time codeine Allergy Hives Verified 01/13/18 10:25 hydrocodone Allergy Hives Verified 01/13/18 10:25 morphine Allergy Itching Verified 01/13/18 10:25 milk AdvReac Cramps Verified 01/13/18 10:25 nitrofurantoin AdvReac Headache Verified 01/13/18 10:25 [From Macrobid] PAPER TAPE AdvReac Unknown Uncoded 01/13/18 10:25 - Social History Does the pt smoke?: Yes Smoking Status: Current every day smoker Does the pt drink ETOH?: No Does the pt have substance abuse?: Yes - Immunizations Immunizations are current?: Yes - POLST Patient has POLST: No POLST Status: Full Code PD ED PE NORMAL - Vitals Vital signs reviewed: Yes - General General: Other (She is somnolent but easily arousable. She appears in no distress.) - HEENT HEENT: PERRL, EOMI - Neck Neck: Supple, no meningeal sign, No bony TTP - Cardiac Cardiac: Other (Tachycardic but regular without murmur) - Respiratory Respiratory: No respiratory distress, Clear bilaterally - Abdomen Abdomen: Soft, Non tender - Back Back: No CVA TTP, No spinal TTP - Derm Derm: Normal color, Warm and dry - Extremities Extremities: No edema, No calf tenderness / cord - Neuro Neuro: Alert and oriented X 3, Normal speech Results - Vitals Vitals: Vital Signs - 24 hr 02/06/18 02/06/18 02/06/18 14:05 17:05 19:03 Temperature 35.9 C L Heart Rate 124 H 121 H 118 H Respiratory 22 16 18 Rate Blood Pressure 166/106 H 192/106 H 186/121 H O2 Saturation 100 99 97 Oxygen O2 Source [Without Activity] Room air O2 Source Room air - Labs Labs: Laboratory Tests 02/06/18 02/06/18 02/06/18 14:37 14:37 14:37 WBC 13.8 H RBC 5.34 Hgb 12.1 Hct 40.3 MCV 75.4 L MCH 22.7 L MCHC 30.1 L RDW 17.8 H Plt Count 299 MPV 7.7 L Neut # (Auto) 11.3 H Lymph # (Auto) 1.9 [place] # (Auto) 0.5 Eos # (Auto) 0.0 Baso # (Auto) 0.1 Absolute Nucleated RBC 0.01 Nucleated RBC % 0.0 VBG pH 7.378 VBG pCO2 20.7 L VBG pO2 66.2 H VBG HCO3 11.9 L VBG Total CO2 12.6 L VBG O2 Saturation 92.1 H VBG Base Excess -10.9 L Sodium 128 L Potassium 5.6 H Chloride 92 L Carbon Dioxide 12 L* Anion Gap 24.0 H BUN 38 H Creatinine 1.2 H Estimated GFR (MDRD) 51 L Glucose 233 H Calcium 8.5 Total Bilirubin 1.7 H AST 33 ALT 42 Alkaline Phosphatase 239 H Total Protein 8.0 Albumin 3.7 Globulin 4.3 H Albumin/Globulin Ratio 0.9 L Lipase 14 L Urine Color Urine Clarity Urine pH Ur Specific [place] Urine Protein Urine Glucose (UA) Urine Ketones Urine Occult Blood Urine Nitrite Urine Bilirubin Urine Urobilinogen Ur Leukocyte Esterase Ur Microscopic Review Urine Culture Comments Urine Opiates Screen Ur Oxycodone Screen Urine Methadone Screen Ur Propoxyphene Screen Ur Barbiturates Screen Ur Tricyclics Screen Ur Phencyclidine Scrn Ur Amphetamine Screen U Methamphetamines Scrn U Benzodiazepines Scrn Urine Cocaine Screen U Cannabinoids Screen Serum Ketones 02/06/18 02/06/18 02/06/18 18:40 18:40 19:10 WBC RBC Hgb Hct MCV MCH MCHC RDW Plt Count MPV Neut # (Auto) Lymph # (Auto) [place] # (Auto) Eos # (Auto) Baso # (Auto) Absolute Nucleated RBC Nucleated RBC % VBG pH VBG pCO2 VBG pO2 VBG HCO3 VBG Total CO2 VBG O2 Saturation VBG Base Excess Sodium 129 L Potassium 4.4 Chloride 93 L Carbon Dioxide 9 L* Anion Gap 27.0 H BUN 41 H Creatinine 1.3 H Estimated GFR (MDRD) 46 L Glucose 478 H Calcium 7.5 L Total Bilirubin AST ALT Alkaline Phosphatase Total Protein Albumin Globulin Albumin/Globulin Ratio Lipase Urine Color YELLOW Urine Clarity CLEAR Urine pH 5.0 Ur Specific [place] 1.025 Urine Protein NEGATIVE Urine Glucose (UA) 500 H Urine Ketones >=80 H Urine Occult Blood TRACE-INTA Urine Nitrite NEGATIVE Urine Bilirubin NEGATIVE Urine Urobilinogen 0.2 (NORMAL) Ur Leukocyte Esterase NEGATIVE Ur Microscopic Review NOT INDICATED Urine Culture Comments NOT INDICATED Urine Opiates Screen NEGATIVE Ur Oxycodone Screen NEGATIVE Urine Methadone Screen NEGATIVE Ur Propoxyphene Screen NEGATIVE Ur Barbiturates Screen NEGATIVE Ur Tricyclics Screen NEGATIVE Ur Phencyclidine Scrn NEGATIVE Ur Amphetamine Screen POSITIVE H U Methamphetamines Scrn POSITIVE H U Benzodiazepines Scrn NEGATIVE Urine Cocaine Screen NEGATIVE U Cannabinoids Screen NEGATIVE Serum Ketones LARGE H Procedures - General procedure General procedure: Procedural note, physician IV access. She is notoriously difficult for IV access, I was unable to place a external jugular IV on either side, with some difficulty I placed placed a long 22-gauge IV in the right deep brachial vein using real-time ultrasound guidance. It did seem like a tenuous IV but it flushed and jose eduardo well. - Central Line Central Line Preparation: Consent Obtained, Time out completed, Ultrasound used, Sterile prep and drape Central line location: Right IJ Central line type: Triple lumen Central line aftercare: Chlorhexidine disc placed, Secured, Placement confirmed, No pneumothorax, No complications, Bundle checklist complete, Pt tolerated well PD MEDICAL DECISION MAKING - ED course ED course: This is a 37-year-old woman with history of brittle diabetes, with concomitant drug use and social issues who presents because she feels cold and has pain all over. She does not appear to be in DKA and her labs do not show evidence of DKA although she is dehydrated with high BUN and mildly high creatinine and potassium. An IV was placed and she was given IV fluids. After 2 L of crystalloid her electrolytes were rechecked and unfortunately everything kind of went in the wrong direction, her creatinine is slightly higher, her gap is higher, her glucose is higher, as such I spoke with Dr. Simmons for admission at 7:30 PM. She asked me to place central line d/t tenuous IV access. - Critical Care Time(min): 45 Time Includes: Direct patient care, Review records, Reassess patient, Document care, Coordinate care, Medical consult, Family consult for tx dec Data interpretation: Labs, Pulse ox, ABG, CXR Procedures excluded from critical care time: Central IV, EKG Departure - Departure Disposition: 66 [facility] DC/Xfer Clinical Impression: Electrolyte imbalance, Microcytic hypochromic anemia, DKA, type 1, not at goal, HANSA (acute kidney injury) Diabetic acidosis without coma Qualifiers: Diabetes mellitus type: type 1 Qualified Code(s): E10.10 - Type 1 diabetes mellitus with ketoacidosis without coma Condition: Serious
[2018-02-06 14:44] LABS: BASOPHILS # (AUTO) 0.1 10^3/uL (0.0-0.1); BASOPHILS % (AUTO) 0.5 %; HGB - HEMOGLOBIN 12.1 g/dL (12.0-16.0); LYMPHOCYTES # (AUTO) 1.9 10^3/uL (1.5-3.5); LYMPHOCYTES % (AUTO) 13.9 %; MEAN CORPUSCULAR HEMOGLOBIN 22.7 pg (27.0-31.0); MEAN CORPUSCULAR HGB CONC 30.1 g/dL (32.0-36.0); MEAN CORPUSCULAR VOLUME 75.4 fL (81.0-99.0); MEAN PLATELET VOLUME 7.7 fL (7.9-10.8); MONOCYTES # (AUTO) 0.5 10^3/uL (0.0-1.0); MONOCYTES % (AUTO) 3.4 %; NEUTROPHILS # (AUTO) 11.3 10^3/uL (1.5-6.6); NEUTROPHILS % (AUTO) 82.2 %; PLT - PLATELET COUNT 299 10^3/uL (130-450); RED BLOOD COUNT 5.34 10^6/uL (4.20-5.40); RED CELL DISTRIBUTION WIDTH 17.8 % (12.0-15.0); WHITE BLOOD COUNT 13.8 x10^3/uL (4.8-10.8)
[2018-02-06 14:46] LABS: VBG PCO2 20.7 mmHg (41-51); VBG PH 7.378 (7.31-7.41); VBG PO2 66.2 mmHg (25-47)
[2018-02-06 14:47] LABS: VBG BASE EXCESS -10.9 mmol/L (-2 - +2); VBG TOTAL CO2 12.6 mmol/L (24-29)
[2018-02-06 15:02] LABS: ALBUMIN 3.7 g/dL (3.2-5.5); ALBUMIN/GLOBULIN RATIO 0.9 (1.0-2.2); BILIRUBIN,TOTAL 1.7 mg/dL (0.2-1.0); CALCIUM 8.5 mg/dL (8.5-10.3); CREATININE 1.2 mg/dL (0.4-1.0)
[2018-02-06] MEDS ORDERED: SODIUM CHLORIDE 0.9% 1,000 ML IV ONE ×2 (15:10→20:25)
[2018-02-06] MEDS ORDERED: ELECTROLYTE-A SOLUTION 1,000 ML IV ONE (15:10)
[2018-02-06] MEDS ORDERED: ONDANSETRON ODT 4 MG TABLET TL STA (16:18)
[2018-02-06] MEDS ORDERED: ONDANSETRON 4 MG/2 ML VIAL IVP STA ×2 (16:28→17:22)
[2018-02-06] MEDS ORDERED: ONDANSETRON 4 MG/2 ML VIAL IM STA (16:49)
[2018-02-06 19:08] LABS: CALCIUM 7.5 mg/dL (8.5-10.3); CREATININE 1.3 mg/dL (0.4-1.0)
[2018-02-06 19:53] LABS: MUDS CUTOFF CONCENTRATIONS CUTOFF CONC BELOW:
[2018-02-06] MEDS ORDERED: ELECTROLYTE-A SOLUTION 1,000 ML IV SCH (20:00)
[2018-02-06 20:01] LABS: BILIRUBIN,URINE NEGATIVE (NEGATIVE); CLARITY,URINE CLEAR (CLEAR); GLUCOSE, URINE (UA) 500 mg/dL (NEGATIVE); KETONES,URINE (UA) >=80 mg/dL (NEGATIVE); LEUKOCYTE ESTERASE, URINE NEGATIVE (NEGATIVE); NITRITE,URINE NEGATIVE (NEGATIVE); OCCULT BLOOD,URINE TRACE-INTA (NEGATIVE); PROTEIN,URINE NEGATIVE (NEGATIVE); UROBILINOGEN,URINE 0.2 (NORMAL) E.U./dL (NORMAL)
[2018-02-06 20:08] LABS: AMPHETAMINE SCREEN,URINE POSITIVE (NEGATIVE); BENZODIAZEPINES SCREEN, URINE NEGATIVE (NEGATIVE); COCAINE SCREEN URINE NEGATIVE (NEGATIVE); METHADONE SCREEN, URINE NEGATIVE (NEGATIVE); METHAMPHETAMINES SCREEN, URINE POSITIVE (NEGATIVE); OPIATE SCREEN, URINE NEGATIVE (NEGATIVE); OXYCODONE SCREEN, URINE NEGATIVE (NEGATIVE); PROPOXYPHENE SCREEN, URINE NEGATIVE (NEGATIVE); TRICYCLIC ANTIDEPRESSANT,URINE NEGATIVE (NEGATIVE)
[2018-02-06] MEDS ORDERED: HYDROmorphone 1 MG/ML CARPUJECT IVP STA ×2 (20:15→20:36)
[2018-02-06] MEDS ORDERED: ONDANSETRON 4 MG/2 ML VIAL IVP PRN (20:26)
[2018-02-06] MEDS ORDERED: TEMAZEPAM 15 MG CAPSULE PO PRN (20:26)
[2018-02-06] MEDS ORDERED: PROCHLORPERAZINE 10 MG/2 ML VIAL IVP PRN (20:26)
[2018-02-06] MEDS ORDERED: KETOROLAC 15 MG/ML VIAL IVP STA (20:29)
[2018-02-06] MEDS ORDERED: INSULIN REGULAR HUMAN 100 UNIT in SODIUM CHLORIDE 0.9% 100ML 99 ML IV SCH (21:00)
[2018-02-06] MEDS ORDERED: SODIUM CHLORIDE 0.9% 1,000 ML IV SCH (21:00)
[2018-02-06] MEDS: INSULIN REGULAR HUMAN 100 UNIT in SODIUM CHLORIDE 0.9% 100ML 99 ML IV SCH ×2 (21:17→22:00)
[2018-02-06 21:48] LABS: CALCIUM 7.4 mg/dL (8.5-10.3); CREATININE 1.3 mg/dL (0.4-1.0); MAGNESIUM 2.1 mg/dL (1.7-2.8)
--- NOTE | 2018-02-06 22:08 | XRAY Report ---
Reason: Post RIJ line Procedure Date: 02/06/2018 Accession Number: [id number] / [id number] Procedure: XR - Chest for Line Placement CPT Code: FULL RESULT: EXAM: CHEST RADIOGRAPHY. EXAM DATE: 02/06/2018 09:32 PM. CLINICAL HISTORY: Status post right IJ central line placement. COMPARISON: Chest for line placement 01/24/2018 2:18 PM. TECHNIQUE: 1 view. FINDINGS: Lungs/Pleura: Subsegmental opacities within the right midlung field as well as right lung base region are noted similar to the prior study. No new airspace disease. No effusion or pneumothorax. Mediastinum: Normal heart size when accounting for lung volumes and technique. Other: Right central venous catheter tip projects over the upper aspect of the right atrium. IMPRESSION: 1. Right IJ central venous catheter tip projects over the upper right atrium. No evidence of a pneumothorax. 2. Right midlung field as well as right basilar subsegmental airspace disease is stable, may be from atelectasis and/or scarring. RADIA
[2018-02-06] MEDS: SODIUM CHLORIDE FLUSH 0.9% 10 ML SYRINGE IVP PRN (22:17)
[2018-02-06] MEDS ORDERED: HYDROmorphone 2 MG TABLET PO PRN (22:18)
[2018-02-06] MEDS: FAMOTIDINE 20 MG/50 ML 50 ML IV SCH (22:32)
[2018-02-06 22:35] LABS: CALCIUM 7.6 mg/dL (8.5-10.3); CREATININE 1.2 mg/dL (0.4-1.0)
[2018-02-06] MEDS: HEPARIN 5,000 UNIT/ML VIAL SUBQ SCH (22:36)
[2018-02-06] MEDS ORDERED: LABETALOL 20 MG/4 ML SYRINGE IVP ONE (23:11)
--- NOTE | 2018-02-06 23:24 | HISTORY & PHYSICAL EXAMINATION ---
DATE OF SERVICE: 02/06/2018 Physician: Sandra Simmons MD SOURCE OF HISTORY: History was obtained mainly reviewing medical records and receiving sign-out from the ER. Patient on admission was not very motivated to answer questions. She kept repeating that she wanted to get water and she felt unwell. HISTORY OF PRESENT ILLNESS: Patient is a 37-year-old Type I diabetic, unfortunate white female who is well known to the service due to frequent hospital admissions. This patient gets admitted to the hospital almost every week, either gets admitted to [facility] or other times to [facility]. She is homeless, has a challenging psychosocial background. She lives in a tent. She also has history of polysubstance abuse and noncompliance. Most recently, she was admitted to [facility] in January. Prior to that, she was admitted to [facility] once in December and twice to [facility] in December. In particular, she had hospital stay in [facility] between December 30 and January 06, at which time she was treated for diabetic ketoacidosis and for infectious issues. She had healthcare-acquired pneumonia. She also had axillary abscesses. Wound culture from the abscesses grew MRSA and streptococcus group B. She was also found with streptococcus B bacteremia. During that hospital stay, she had a short episode of GI bleed, which self- resolved. Following the hospital stay, she was discharged to a facility to complete antibiotic course. Subsequently, she was admitted to [facility], and then shortly after, between January 13 and , she was admitted to our hospital with diabetic ketoacidosis. Regarding the circumstances of current presentation, not much information is available. Patient tells me that she does not remember anything. She feels unwell, and she wanted to drink water. Other than that, she was not willing to meaningfully converse. She was most interested in logistic issues such as when would she go to the medical floor, and what way she would be taken care of whenever her bed is available, and what kind of medications she would receive. Reviewing the ER record, it is documented that patient flagged down a motorist to call 911 because she was cold, wet, and had a diabetic problem. Subsequently, she was brought in by EMS. She was found lethargic. Regarding the ER workup, toxicology screen was positive for amphetamine and methamphetamine. She had mildly elevated white blood cell count of 13.8. When she presented, her chemistry panel was borderline for diabetic ketoacidosis. She received 2 L of IV hydration, no insulin. Subsequently, chemistry panel was repeated 4 hours later, and it showed obvious DKA. At that time, serum ketones were added which returned reading large. Urinalysis showed protein and glucose, otherwise was unremarkable. Regarding her chemistry panel, sodium was 129, potassium 4.4, CO2 of 9, anion gap 27, creatinine 1.3, BUN 41. Blood glucose was 478. Notably, this was a second chemistry panel, which obviously shows DKA. On physical exam, in the axillary region there were healed scars, but there was no new collection or notable skin rash or abscess. Regarding the vital signs, temperature was 35.9, heart rate was 124, blood pressure 166/100, respiratory rate was 22, oxygen saturation 100% on room air. PAST MEDICAL HISTORY 1. Homelessness. 2. Polysubstance abuse, including amphetamine and methamphetamine. 3. History of debility and cognitive impairment, which were felt to be secondary to drug abuse versus hypothermia versus DKA and anoxic brain injury in the setting of acute illness. 4. Hypertension. 5. Dyslipidemia. 6. Diabetic foot/history of toe wounds/history of osteomyelitis and amputation of multiple toes. 7. Peripheral vascular disease/ischemic foot. 8. Fibromyalgia/chronic pain. 9. Mental health disorder/personality disorder. 10. Chronic pancreatitis. 11. Chronic abdominal pain. 12. Status post cholecystectomy. 13. Noncompliance. 14. Was described having coronary artery disease and history of myocardial infarction. However, no medical records regarding this problem were available. 15. Echocardiogram from December 2015 showed valvular heart disease and moderate pulmonary hypertension. OUTPATIENT MEDICATIONS: Not yet confirmed. Patient is known to be noncompliant, and she likely does not take her medications. SOCIAL HISTORY: Patient has been living in [place] since 2014. She is homeless, and she lives in a tent. Regarding her functional ability, she does have cognitive impairment. She, however, is ambulatory, and how she performs ADLs likely depends on her on-and-off substance abuse. She is not really a functional person as far as she is unable to stay out of the hospital for more than a week. FAMILY HISTORY: Father had coronary artery disease, cardiomyopathy, and cerebrovascular accident. PRIMARY CARE PHYSICIAN: Last time, Dr. Mercedes was listed as primary care physician. Patient is noncompliant and usually does not follow up with primary care physicians. CODE STATUS: FULL CODE. EMERGENCY ROOM WORKUP: Reviewed per electronic medical record. PHYSICAL EXAMINATION VITAL SIGNS: Please see listed above at history of present illness. GENERAL: Patient is a well-developed, chronically ill-appearing female. She appeared disheveled but not in acute distress. MUSCULOSKELETAL: Skin folds indicating significant weight loss, decreased muscle mass. No obvious wound, joint swelling, or muscle tenderness. LYMPHATIC: No lymphedema. CARDIOVASCULAR: S1, S2, regular tachycardia. I could not hear murmur, rub or gallop. RESPIRATORY: No increased work of breathing. Good air entry throughout. ABDOMEN: Nontender, benign. Bowel tones present. SKIN: With pallor. No jaundice. Oral mucosa dry, with some wounds on the tongue. No oral thrush. NEUROLOGIC: Alert, oriented, neurologically nonfocal. PSYCHIATRIC: Cooperative. REVIEW OF SYSTEMS: Please see pertinent positives listed above at history of present illness. Patient on admission was a poor historian. She stated that she felt unwell, and she did not remember much. Other than feeling ill in general, she offered no complaints. I attempted 12-system review, which was essentially negative. All other systems were negative. ASSESSMENT/ACTIVE ISSUES/DIAGNOSES 1. Hypothermia, being outside in winter in cold temperature/homelessness. 2. Tachycardia and hypertension on admission, likely situational plus related to noncompliance with outpatient medications. 3. Diabetic ketoacidosis requiring insulin drip and ICU care. 4. Leukocytosis, with recent infectious issues including streptococcus bacteremia, axillary abscesses, and healthcare-acquired pneumonia. All of these conditions were already treated and antibiotic courses were completed. Today, patient does not appear with focal infectious complaint or source. At the same time, she does have risk for ongoing infectious issues such as pneumonia and bacteremia. 5. Polysubstance abuse. 6. Homelessness/noncompliance/mental health problems. 7. Dehydration in the setting of diabetic ketoacidosis. 8. Electrolyte abnormalities in the setting of diabetic ketoacidosis. PLAN AND ORDERS 1. Patient is getting admitted to the ICU and is treated according to DKA. I placed order set. 2. Regarding bacteremia, we will check chest x-ray and monitor the clinical course, send blood cultures. If patient would spike temperature, we will have low threshold to order antibiotic. 3. Awaiting medication reconciliation and will restart previous medications as appropriate. 4. Regarding pain control, we will use Toradol and will try to avoid IV opiates. 5. DVT prophylaxis. 6. FULL CODE. 7. Supportive care, social work for discharge planning. Time spent in the care of this patient was 60 minutes of critical care time. ATTESTATION: I certify that the reasonable expectation for this patient is to remain hospitalized for at least 48 hours; however, to discharge or transfer to another facility within 96 hours. TD: 02/06/2018 22:16 BRYANNA
[2018-02-06] MEDS: AMITRIPTYLINE 25 MG TABLET PO SCH (23:27)
[2018-02-06] MEDS: METOPROLOL SUCCINATE 25 MG TABLET PO SCH (23:27)
[2018-02-06] MEDS: CILOSTAZOL 100 MG TABLET PO SCH (23:47)
[2018-02-07] MEDS ORDERED: KETOROLAC 15 MG/ML VIAL IVP PRN
[2018-02-07] MEDS: SODIUM CHLORIDE FLUSH 0.9% 10 ML SYRINGE IVP PRN ×7 (00:08→20:34)
[2018-02-07 00:19] LABS: HCG UR QUAL NEGATIVE
[2018-02-07 00:24] LABS: CALCIUM 7.1 mg/dL (8.5-10.3); CREATININE 1.1 mg/dL (0.4-1.0); MAGNESIUM 1.9 mg/dL (1.7-2.8)
[2018-02-07] MEDS: DEXTROSE 5%-0.9% NACL 1,000 ML IV SCH ×2 (00:26→13:34)
[2018-02-07] MEDS: SODIUM CHLORIDE FLUSH 0.9% 10 ML SYRINGE IVP SCH ×3 (02:05→17:10)
[2018-02-07 05:13] LABS: KETONES, SERUM (ACETEST) MODERATE (NEGATIVE)
[2018-02-07 05:16] LABS: BASOPHILS % (AUTO) 0.3 %; EOSINOPHILS % (AUTO) 0.1 %; LYMPHOCYTES # (AUTO) 3.1 10^3/uL (1.5-3.5); LYMPHOCYTES % (AUTO) 22.5 %; MEAN CORPUSCULAR HEMOGLOBIN 22.3 pg (27.0-31.0); MEAN CORPUSCULAR HGB CONC 30.6 g/dL (32.0-36.0); MEAN CORPUSCULAR VOLUME 72.9 fL (81.0-99.0); MEAN PLATELET VOLUME 6.9 fL (7.9-10.8); MONOCYTES # (AUTO) 0.7 10^3/uL (0.0-1.0); MONOCYTES % (AUTO) 4.9 %; NEUTROPHILS # (AUTO) 9.9 10^3/uL (1.5-6.6); NEUTROPHILS % (AUTO) 72.2 %; PLT - PLATELET COUNT 432 10^3/uL (130-450); RED BLOOD COUNT 4.02 10^6/uL (4.20-5.40); RED CELL DISTRIBUTION WIDTH 18.3 % (12.0-15.0); WHITE BLOOD COUNT 13.7 x10^3/uL (4.8-10.8)
[2018-02-07 05:21] LABS: BUN - BLOOD UREA NITROGEN 33 mg/dL (6-20); CALCIUM 7.4 mg/dL (8.5-10.3); CARBON DIOXIDE - CO2 19 mmol/L (21-32); CHLORIDE 102 mmol/L (101-111); CREATININE 0.9 mg/dL (0.4-1.0); GFR - MDRD 71 (>89); GLUCOSE 129 mg/dL (70-100); SODIUM 134 mmol/L (135-145)
[2018-02-07] MEDS: POTASSIUM CHLOR 20 MEQ/100 ML 20 MEQ/100 ML BAG IV SCH ×5 (07:06→17:44)
[2018-02-07] MEDS: traMADol 50 MG TABLET PO PRN ×2 (07:06→16:04)
[2018-02-07] MEDS: FAMOTIDINE 20 MG/50 ML 50 ML IV SCH ×2 (08:38→20:49)
[2018-02-07] MEDS ORDERED: ASPIRIN EC 81 MG TABLET PO SCH (09:00)
[2018-02-07] MEDS: CILOSTAZOL 100 MG TABLET PO SCH ×2 (09:00→21:16)
[2018-02-07] MEDS ORDERED: diltiaZEM CD 120 MG CAPSULE PO SCH (09:00)
[2018-02-07] MEDS ORDERED: POLYETHYLENE GLYCOL 3350 17 GM PACKET PO SCH (09:00)
[2018-02-07] MEDS ORDERED: DULoxetine 30 MG CAPSULE PO SCH (09:00)
[2018-02-07] MEDS: METOPROLOL SUCCINATE 25 MG TABLET PO SCH ×2 (09:01→21:16)
[2018-02-07] MEDS: HEPARIN 5,000 UNIT/ML VIAL SUBQ SCH ×2 (09:04→20:51)
[2018-02-07] MEDS: METOCLOPRAMIDE 10 MG TABLET PO SCH ×3 (10:29→21:16)
--- NOTE | 2018-02-07 11:11 | PROVIDER PROGRESS NOTE ---
Subjective - Prog Note Date Prog Note Date: 02/07/18 Prog Note Time: 11:09 - Subjective Subjective: She is sleepy, complains of being cold still. She not eating very much because she still feels sleepy. She is still on half a unit of insulin drip. Sometimes goes up to 1 unit an hour. Nursing reports the third toe on the right foot has black spots and would like me to look at it. Felicitas herself complains of her usual diffuse myalgias and arthralgias. No abdominal pain. No nausea and vomiting. No diarrhea. No fever so far. Current Medications - Current Medications Current Medications: Active Medications Amitriptyline HCl (Elavil) 25 mg PO HS [facility] Last Admin: 02/06/18 23:27 Dose: 25 mg Aspirin (Ecotrin) 81 mg PO DAILY [facility] Last Admin: 02/07/18 09:01 Dose: 81 mg Cilostazol (Pletal) 100 mg PO BID [facility] Last Admin: 02/07/18 09:00 Dose: 100 mg Diltiazem HCl (Cardizem Cd) 120 mg PO DAILY [facility] Last Admin: 02/07/18 09:01 Dose: 120 mg Duloxetine HCl (Cymbalta) 60 mg PO DAILY [facility] Last Admin: 02/07/18 09:00 Dose: 60 mg Heparin Sodium (Porcine) () 5,000 unit SUBQ BID [facility] Last Admin: 02/07/18 09:04 Dose: 5,000 unit Hydromorphone HCl (Dilaudid) 2 mg PO DAILY PRN PRN Reason: Severe Pain Last Admin: 02/07/18 00:25 Dose: 2 mg Insulin Human Regular 100 unit (/ Sodium Chloride) 100 mls @ 4.9 mls/hr IV .[id number] [facility]; Protocol Last Titration: 02/07/18 10:34 Dose: 3.5 unit/hr, 3.5 mls/hr Famotidine (Pepcid 20 Mg/50 Ml) 50 mls @ 100 mls/hr IV BID [facility] Last Infusion: 02/07/18 09:35 Dose: Infused Dextrose/Sodium Chloride (D5ns) 1,000 mls @ 83.333 mls/hr IV .Q12H [facility] Last Infusion: 02/07/18 07:00 Dose: 83.3 mls/hr Potassium Chloride (Potassium Chloride) 20 meq in 100 mls @ 100 mls/hr IV Q1H [facility] Last Admin: 02/07/18 09:11 Dose: Not Given Ketorolac Tromethamine (Toradol Inj (15mg)) 15 mg IVP Q6HR PRN PRN Reason: PAIN Stop: 02/12/18 00:00 Last Admin: 02/07/18 10:53 Dose: 15 mg Metoclopramide HCl (Reglan) 10 mg PO ACHS [facility] Last Admin: 02/07/18 10:29 Dose: 10 mg Metoprolol Succinate (Toprol Xl) 25 mg PO BID [facility] Last Admin: 02/07/18 09:01 Dose: 25 mg Ondansetron HCl (Zofran Inj) 4 mg IVP Q6HR PRN PRN Reason: Nausea / Vomiting Polyethylene Glycol (Miralax) 17 gm PO DAILY [facility] Last Admin: 02/07/18 09:00 Dose: 17 gm Prochlorperazine Edisylate (Compazine Inj) 10 mg IVP Q6HR PRN PRN Reason: Nausea / Vomiting Sodium Chloride (Normal Saline Flush 0.9%) 10 ml IVP PRN PRN PRN Reason: NEEDED PER PROVIDER ORDERS Sodium Chloride (Normal Saline Flush 0.9%) 10 ml IVP 0100,0900,1700 [facility] Last Admin: 02/07/18 10:30 Dose: 10 ml Sodium Chloride (Normal Saline Flush 0.9%) 20 ml IVP PRN PRN PRN Reason: After Blood Draw Last Admin: 02/07/18 10:30 Dose: 20 ml Temazepam (Restoril) 15 mg PO QPM PRN PRN Reason: Insomnia Last Admin: 02/07/18 00:25 Dose: 15 mg Tramadol HCl (Ultram) 50 mg PO Q6H PRN PRN Reason: MOD PAIN 5-7 Last Admin: 02/07/18 07:06 Dose: 50 mg Objective - Vital Signs/Intake & Output Reviewed Vital Signs: Yes Vital Signs: Vital Signs x48h Temp Pulse Resp BP Pulse Ox 02/07/18 10:00 101 H 12 159/104 H 96 02/07/18 09:00 124 H 18 148/92 H 100 02/07/18 08:00 38.4 C H 122 H 22 166/110 H 98 12/17/18 07:00 121 H 22 155/96 H 99 02/07/18 06:00 119 H 16 137/86 H 96 02/07/18 05:00 122 H 18 131/76 H 97 02/07/18 04:00 37 C 118 H 18 128/77 98 Intake & Output: Intake & Output 02/04/18 02/05/18 02/06/18 02/07/18 23:59 23:59 23:59 23:59 Intake Total 3526.932 867.538 Balance 3526.932 867.538 - Objective General Appearance: positive: Lethargic, Other (She is getting thinner and thinner with each subsequent admission. From 2 weeks ago to now she is noticeably more gaunt. She is cachectic, looks much older than stated age, disheveled, withdrawn) Eyes Bilateral: positive: PERRL, EOMI ENT: positive: Other (Mainly edentulous,) Neck: positive: No JVD. negative: Stiff neck, Carotid bruit Respiratory: positive: Chest non-tender. negative: Wheezes, Rales, Rhonchi Cardiovascular: positive: Regular rate & rhythm, Tachycardia, Systolic murmur. negative: Gallop/S4, Friction rub Peripheral Pulses: 0 Popliteal (R), 0 Popliteal (L), 0 Dorsalis pedis (R), 0 Dorsalis pedis (L), 0 Posterior tibialis (R), 0 Posterior tibialis (L), 1+ Radial (R), 1+ Radial (L), 1+ Femoral (R), 1+ Femoral (L) Abdomen: positive: Non-tender, No organomegaly, Nml bowel sounds, No distention Skin: positive: Dry, Pallor Extremities: positive: Full ROM, Other (Right third toe at the very tip on the bulbous and has a dark area where it looks like it may have early diabetic foot ulcer. The edge of the nail bed is dried, crusted in black, cannot tell if this is eschar. The foot and toe are not red or hot. She has known peripheral vascular disease and already has partial amputations of the right great toe and second toe. Same on the left side.) Neurologic/Psychiatric: positive: Oriented x3, CN's nml (2-12), Motor nml - Lab Results Fish Bones: 02/07/18 04:25 02/07/18 04:25 Other Labs: Lab Results x24hrs 02/07/18 02/07/18 02/07/18 Range/Units 10:34 08:58 07:47 WBC (4.8-10.8) x10^3/uL RBC (4.20-5.40) 10^6/uL Hgb (12.0-16.0) g/dL Hct (37.0-47.0) % MCV (81.0-99.0) fL MCH (27.0-31.0) pg MCHC (32.0-36.0) g/dL RDW (12.0-15.0) % Plt Count (130-450) 10^3/uL MPV (7.9-10.8) fL Neut # (Auto) (1.5-6.6) 10^3/uL Lymph # (Auto) (1.5-3.5) 10^3/uL Carlton # (Auto) (0.0-1.0) 10^3/uL Eos # (Auto) (0.0-0.7) 10^3/uL Baso # (Auto) (0.0-0.1) 10^3/uL Absolute Nucleated RBC x10^3/uL Nucleated RBC % /100WBC VBG pH (7.31-7.41) VBG pCO2 (41-51) mmHg VBG pO2 (25-47) mmHg VBG HCO3 (23-28) mmol/L VBG Total CO2 (24-29) mmol/L VBG O2 Saturation (60-80) % VBG Base Excess (-2 - +2) mmol/L Sodium (135-145) mmol/L Potassium (3.5-5.0) mmol/L Chloride (101-111) mmol/L Carbon Dioxide (21-32) mmol/L Anion Gap (6-13) BUN (6-20) mg/dL Creatinine (0.4-1.0) mg/dL Estimated GFR (MDRD) (>89) Glucose (70-100) mg/dL POC Whole Bld Glucose 179 H 200 H 154 H (70 - 100) mg/dL Calcium (8.5-10.3) mg/dL Phosphorus (2.5-4.6) mg/dL Magnesium (1.7-2.8) mg/dL Total Bilirubin (0.2-1.0) mg/dL AST (10-42) IU/L ALT (10-60) IU/L Alkaline Phosphatase (42-121) IU/L Total Protein (6.7-8.2) g/dL Albumin (3.2-5.5) g/dL Globulin (2.1-4.2) g/dL Albumin/Globulin Ratio (1.0-2.2) Lipase (22-51) U/L Urine Color Urine Clarity (CLEAR) Urine pH (5.0-7.5) PH Ur Specific Yancey (1.002-1.030) Urine Protein (NEGATIVE) mg/dL Urine Glucose (UA) (NEGATIVE) mg/dL Urine Ketones (NEGATIVE) mg/dL Urine Occult Blood (NEGATIVE) Urine Nitrite (NEGATIVE) Urine Bilirubin (NEGATIVE) Urine Urobilinogen (NORMAL) E.U./dL Ur Leukocyte Esterase (NEGATIVE) Ur Microscopic Review Urine Culture Comments Urine HCG, Qual Urine Opiates Screen (NEGATIVE) Ur Oxycodone Screen (NEGATIVE) Urine Methadone Screen (NEGATIVE) Ur Propoxyphene Screen (NEGATIVE) Ur Barbiturates Screen (NEGATIVE) Ur Tricyclics Screen (NEGATIVE) Ur Phencyclidine Scrn (NEGATIVE) Ur Amphetamine Screen (NEGATIVE) U Methamphetamines Scrn (NEGATIVE) U Benzodiazepines Scrn (NEGATIVE) Urine Cocaine Screen (NEGATIVE) U Cannabinoids Screen (NEGATIVE) Serum Ketones (NEGATIVE) 02/07/18 02/07/18 02/07/18 Range/Units 06:32 05:46 04:47 WBC (4.8-10.8) x10^3/uL RBC (4.20-5.40) 10^6/uL Hgb (12.0-16.0) g/dL Hct (37.0-47.0) % MCV (81.0-99.0) fL MCH (27.0-31.0) pg MCHC (32.0-36.0) g/dL RDW (12.0-15.0) % Plt Count (130-450) 10^3/uL MPV (7.9-10.8) fL Neut # (Auto) (1.5-6.6) 10^3/uL Lymph # (Auto) (1.5-3.5) 10^3/uL Carlton # (Auto) (0.0-1.0) 10^3/uL Eos # (Auto) (0.0-0.7) 10^3/uL Baso # (Auto) (0.0-0.1) 10^3/uL Absolute Nucleated RBC x10^3/uL Nucleated RBC % /100WBC VBG pH (7.31-7.41) VBG pCO2 (41-51) mmHg VBG pO2 (25-47) mmHg VBG HCO3 (23-28) mmol/L VBG Total CO2 (24-29) mmol/L VBG O2 Saturation (60-80) % VBG Base Excess (-2 - +2) mmol/L Sodium (135-145) mmol/L Potassium (3.5-5.0) mmol/L Chloride (101-111) mmol/L Carbon Dioxide (21-32) mmol/L Anion Gap (6-13) BUN (6-20) mg/dL Creatinine (0.4-1.0) mg/dL Estimated GFR (MDRD) (>89) Glucose (70-100) mg/dL POC Whole Bld Glucose 118 H 96 122 H (70 - 100) mg/dL Calcium (8.5-10.3) mg/dL Phosphorus (2.5-4.6) mg/dL Magnesium (1.7-2.8) mg/dL Total Bilirubin (0.2-1.0) mg/dL AST (10-42) IU/L ALT (10-60) IU/L Alkaline Phosphatase (42-121) IU/L Total Protein (6.7-8.2) g/dL Albumin (3.2-5.5) g/dL Globulin (2.1-4.2) g/dL Albumin/Globulin Ratio (1.0-2.2) Lipase (22-51) U/L Urine Color Urine Clarity (CLEAR) Urine pH (5.0-7.5) PH Ur Specific Yancey (1.002-1.030) Urine Protein (NEGATIVE) mg/dL Urine Glucose (UA) (NEGATIVE) mg/dL Urine Ketones (NEGATIVE) mg/dL Urine Occult Blood (NEGATIVE) Urine Nitrite (NEGATIVE) Urine Bilirubin (NEGATIVE) Urine Urobilinogen (NORMAL) E.U./dL Ur Leukocyte Esterase (NEGATIVE) Ur Microscopic Review Urine Culture Comments Urine HCG, Qual Urine Opiates Screen (NEGATIVE) Ur Oxycodone Screen (NEGATIVE) Urine Methadone Screen (NEGATIVE) Ur Propoxyphene Screen (NEGATIVE) Ur Barbiturates Screen (NEGATIVE) Ur Tricyclics Screen (NEGATIVE) Ur Phencyclidine Scrn (NEGATIVE) Ur Amphetamine Screen (NEGATIVE) U Methamphetamines Scrn (NEGATIVE) U Benzodiazepines Scrn (NEGATIVE) Urine Cocaine Screen (NEGATIVE) U Cannabinoids Screen (NEGATIVE) Serum Ketones (NEGATIVE) 02/07/18 02/07/18 02/07/18 Range/Units 04:25 04:25 03:44 WBC 13.7 H (4.8-10.8) x10^3/uL RBC 4.02 L (4.20-5.40) 10^6/uL Hgb 9.0 L (12.0-16.0) g/dL Hct 29.3 L (37.0-47.0) % MCV 72.9 L (81.0-99.0) fL MCH 22.3 L (27.0-31.0) pg MCHC 30.6 L (32.0-36.0) g/dL RDW 18.3 H (12.0-15.0) % Plt Count 432 (130-450) 10^3/uL MPV 6.9 L (7.9-10.8) fL Neut # (Auto) 9.9 H (1.5-6.6) 10^3/uL Lymph # (Auto) 3.1 (1.5-3.5) 10^3/uL Carlton # (Auto) 0.7 (0.0-1.0) 10^3/uL Eos # (Auto) 0.0 (0.0-0.7) 10^3/uL Baso # (Auto) 0.0 (0.0-0.1) 10^3/uL Absolute Nucleated RBC 0.00 x10^3/uL Nucleated RBC % 0.0 /100WBC VBG pH (7.31-7.41) VBG pCO2 (41-51) mmHg VBG pO2 (25-47) mmHg VBG HCO3 (23-28) mmol/L VBG Total CO2 (24-29) mmol/L VBG O2 Saturation (60-80) % VBG Base Excess (-2 - +2) mmol/L Sodium 134 L (135-145) mmol/L Potassium 3.7 (3.5-5.0) mmol/L Chloride 102 (101-111) mmol/L Carbon Dioxide 19 L (21-32) mmol/L Anion Gap 13.0 (6-13) BUN 33 H (6-20) mg/dL Creatinine 0.9 (0.4-1.0) mg/dL Estimated GFR (MDRD) 71 L (>89) Glucose 129 H (70-100) mg/dL POC Whole Bld Glucose 148 H (70 - 100) mg/dL Calcium 7.4 L (8.5-10.3) mg/dL Phosphorus (2.5-4.6) mg/dL Magnesium (1.7-2.8) mg/dL Total Bilirubin (0.2-1.0) mg/dL AST (10-42) IU/L ALT (10-60) IU/L Alkaline Phosphatase (42-121) IU/L Total Protein (6.7-8.2) g/dL Albumin (3.2-5.5) g/dL Globulin (2.1-4.2) g/dL Albumin/Globulin Ratio (1.0-2.2) Lipase (22-51) U/L Urine Color Urine Clarity (CLEAR) Urine pH (5.0-7.5) PH Ur Specific Yancey (1.002-1.030) Urine Protein (NEGATIVE) mg/dL Urine Glucose (UA) (NEGATIVE) mg/dL Urine Ketones (NEGATIVE) mg/dL Urine Occult Blood (NEGATIVE) Urine Nitrite (NEGATIVE) Urine Bilirubin (NEGATIVE) Urine Urobilinogen (NORMAL) E.U./dL Ur Leukocyte Esterase (NEGATIVE) Ur Microscopic Review Urine Culture Comments Urine HCG, Qual Urine Opiates Screen (NEGATIVE) Ur Oxycodone Screen (NEGATIVE) Urine Methadone Screen (NEGATIVE) Ur Propoxyphene Screen (NEGATIVE) Ur Barbiturates Screen (NEGATIVE) Ur Tricyclics Screen (NEGATIVE) Ur Phencyclidine Scrn (NEGATIVE) Ur Amphetamine Screen (NEGATIVE) U Methamphetamines Scrn (NEGATIVE) U Benzodiazepines Scrn (NEGATIVE) Urine Cocaine Screen (NEGATIVE) U Cannabinoids Screen (NEGATIVE) Serum Ketones MODERATE H (NEGATIVE) 02/07/18 02/07/18 02/07/18 Range/Units 02:44 01:18 00:06 WBC (4.8-10.8) x10^3/uL RBC (4.20-5.40) 10^6/uL Hgb (12.0-16.0) g/dL Hct (37.0-47.0) % MCV (81.0-99.0) fL MCH (27.0-31.0) pg MCHC (32.0-36.0) g/dL RDW (12.0-15.0) % Plt Count (130-450) 10^3/uL MPV (7.9-10.8) fL Neut # (Auto) (1.5-6.6) 10^3/uL Lymph # (Auto) (1.5-3.5) 10^3/uL Carlton # (Auto) (0.0-1.0) 10^3/uL Eos # (Auto) (0.0-0.7) 10^3/uL Baso # (Auto) (0.0-0.1) 10^3/uL Absolute Nucleated RBC x10^3/uL Nucleated RBC % /100WBC VBG pH (7.31-7.41) VBG pCO2 (41-51) mmHg VBG pO2 (25-47) mmHg VBG HCO3 (23-28) mmol/L VBG Total CO2 (24-29) mmol/L VBG O2 Saturation (60-80) % VBG Base Excess (-2 - +2) mmol/L Sodium (135-145) mmol/L Potassium (3.5-5.0) mmol/L Chloride (101-111) mmol/L Carbon Dioxide (21-32) mmol/L Anion Gap (6-13) BUN (6-20) mg/dL Creatinine (0.4-1.0) mg/dL Estimated GFR (MDRD) (>89) Glucose (70-100) mg/dL POC Whole Bld Glucose 190 H 177 H 156 H (70 - 100) mg/dL Calcium (8.5-10.3) mg/dL Phosphorus (2.5-4.6) mg/dL Magnesium (1.7-2.8) mg/dL Total Bilirubin (0.2-1.0) mg/dL AST (10-42) IU/L ALT (10-60) IU/L Alkaline Phosphatase (42-121) IU/L Total Protein (6.7-8.2) g/dL Albumin (3.2-5.5) g/dL Globulin (2.1-4.2) g/dL Albumin/Globulin Ratio (1.0-2.2) Lipase (22-51) U/L Urine Color Urine Clarity (CLEAR) Urine pH (5.0-7.5) PH Ur Specific Yancey (1.002-1.030) Urine Protein (NEGATIVE) mg/dL Urine Glucose (UA) (NEGATIVE) mg/dL Urine Ketones (NEGATIVE) mg/dL Urine Occult Blood (NEGATIVE) Urine Nitrite (NEGATIVE) Urine Bilirubin (NEGATIVE) Urine Urobilinogen (NORMAL) E.U./dL Ur Leukocyte Esterase (NEGATIVE) Ur Microscopic Review Urine Culture Comments Urine HCG, Qual Urine Opiates Screen (NEGATIVE) Ur Oxycodone Screen (NEGATIVE) Urine Methadone Screen (NEGATIVE) Ur Propoxyphene Screen (NEGATIVE) Ur Barbiturates Screen (NEGATIVE) Ur Tricyclics Screen (NEGATIVE) Ur Phencyclidine Scrn (NEGATIVE) Ur Amphetamine Screen (NEGATIVE) U Methamphetamines Scrn (NEGATIVE) U Benzodiazepines Scrn (NEGATIVE) Urine Cocaine Screen (NEGATIVE) U Cannabinoids Screen (NEGATIVE) Serum Ketones (NEGATIVE) 02/07/18 02/06/18 02/06/18 Range/Units 00:05 23:37 22:17 WBC (4.8-10.8) x10^3/uL RBC (4.20-5.40) 10^6/uL Hgb (12.0-16.0) g/dL Hct (37.0-47.0) % MCV (81.0-99.0) fL MCH (27.0-31.0) pg MCHC (32.0-36.0) g/dL RDW (12.0-15.0) % Plt Count (130-450) 10^3/uL MPV (7.9-10.8) fL Neut # (Auto) (1.5-6.6) 10^3/uL Lymph # (Auto) (1.5-3.5) 10^3/uL Carlton # (Auto) (0.0-1.0) 10^3/uL Eos # (Auto) (0.0-0.7) 10^3/uL Baso # (Auto) (0.0-0.1) 10^3/uL Absolute Nucleated RBC x10^3/uL Nucleated RBC % /100WBC VBG pH (7.31-7.41) VBG pCO2 (41-51) mmHg VBG pO2 (25-47) mmHg VBG HCO3 (23-28) mmol/L VBG Total CO2 (24-29) mmol/L VBG O2 Saturation (60-80) % VBG Base Excess (-2 - +2) mmol/L Sodium 131 L 129 L (135-145) mmol/L Potassium 4.1 4.0 (3.5-5.0) mmol/L Chloride 102 96 L (101-111) mmol/L Carbon Dioxide 13 L 9 L* (21-32) mmol/L Anion Gap 16.0 H 24.0 H (6-13) BUN 34 H 36 H (6-20) mg/dL Creatinine 1.1 H 1.2 H (0.4-1.0) mg/dL Estimated GFR (MDRD) 56 L 51 L (>89) Glucose 160 H 389 H (70-100) mg/dL POC Whole Bld Glucose 205 H (70 - 100) mg/dL Calcium 7.1 L 7.6 L (8.5-10.3) mg/dL Phosphorus (2.5-4.6) mg/dL Magnesium 1.9 2.0 (1.7-2.8) mg/dL Total Bilirubin (0.2-1.0) mg/dL AST (10-42) IU/L ALT (10-60) IU/L Alkaline Phosphatase (42-121) IU/L Total Protein (6.7-8.2) g/dL Albumin (3.2-5.5) g/dL Globulin (2.1-4.2) g/dL Albumin/Globulin Ratio (1.0-2.2) Lipase (22-51) U/L Urine Color Urine Clarity (CLEAR) Urine pH (5.0-7.5) PH Ur Specific Yancey (1.002-1.030) Urine Protein (NEGATIVE) mg/dL Urine Glucose (UA) (NEGATIVE) mg/dL Urine Ketones (NEGATIVE) mg/dL Urine Occult Blood (NEGATIVE) Urine Nitrite (NEGATIVE) Urine Bilirubin (NEGATIVE) Urine Urobilinogen (NORMAL) E.U./dL Ur Leukocyte Esterase (NEGATIVE) Ur Microscopic Review Urine Culture Comments Urine HCG, Qual Urine Opiates Screen (NEGATIVE) Ur Oxycodone Screen (NEGATIVE) Urine Methadone Screen (NEGATIVE) Ur Propoxyphene Screen (NEGATIVE) Ur Barbiturates Screen (NEGATIVE) Ur Tricyclics Screen (NEGATIVE) Ur Phencyclidine Scrn (NEGATIVE) Ur Amphetamine Screen (NEGATIVE) U Methamphetamines Scrn (NEGATIVE) U Benzodiazepines Scrn (NEGATIVE) Urine Cocaine Screen (NEGATIVE) U Cannabinoids Screen (NEGATIVE) Serum Ketones (NEGATIVE) 02/06/18 02/06/18 02/06/18 Range/Units 21:00 21:00 19:10 WBC (4.8-10.8) x10^3/uL RBC (4.20-5.40) 10^6/uL Hgb (12.0-16.0) g/dL Hct (37.0-47.0) % MCV (81.0-99.0) fL MCH (27.0-31.0) pg MCHC (32.0-36.0) g/dL RDW (12.0-15.0) % Plt Count (130-450) 10^3/uL MPV (7.9-10.8) fL Neut # (Auto) (1.5-6.6) 10^3/uL Lymph # (Auto) (1.5-3.5) 10^3/uL Carlton # (Auto) (0.0-1.0) 10^3/uL Eos # (Auto) (0.0-0.7) 10^3/uL Baso # (Auto) (0.0-0.1) 10^3/uL Absolute Nucleated RBC x10^3/uL Nucleated RBC % /100WBC VBG pH (7.31-7.41) VBG pCO2 (41-51) mmHg VBG pO2 (25-47) mmHg VBG HCO3 (23-28) mmol/L VBG Total CO2 (24-29) mmol/L VBG O2 Saturation (60-80) % VBG Base Excess (-2 - +2) mmol/L Sodium 126 L (135-145) mmol/L Potassium 4.5 (3.5-5.0) mmol/L Chloride 92 L (101-111) mmol/L Carbon Dioxide 7 L* (21-32) mmol/L Anion Gap 27.0 H (6-13) BUN 38 H (6-20) mg/dL Creatinine 1.3 H (0.4-1.0) mg/dL Estimated GFR (MDRD) 46 L (>89) Glucose 539 H* (70-100) mg/dL POC Whole Bld Glucose (70 - 100) mg/dL Calcium 7.4 L (8.5-10.3) mg/dL Phosphorus 4.0 (2.5-4.6) mg/dL Magnesium 2.1 (1.7-2.8) mg/dL Total Bilirubin (0.2-1.0) mg/dL AST (10-42) IU/L ALT (10-60) IU/L Alkaline Phosphatase (42-121) IU/L Total Protein (6.7-8.2) g/dL Albumin (3.2-5.5) g/dL Globulin (2.1-4.2) g/dL Albumin/Globulin Ratio (1.0-2.2) Lipase (22-51) U/L Urine Color YELLOW Urine Clarity CLEAR (CLEAR) Urine pH 5.0 (5.0-7.5) PH Ur Specific Yancey 1.025 (1.002-1.030) Urine Protein NEGATIVE (NEGATIVE) mg/dL Urine Glucose (UA) 500 H (NEGATIVE) mg/dL Urine Ketones >=80 H (NEGATIVE) mg/dL Urine Occult Blood TRACE-INTA (NEGATIVE) Urine Nitrite NEGATIVE (NEGATIVE) Urine Bilirubin NEGATIVE (NEGATIVE) Urine Urobilinogen 0.2 (NORMAL) (NORMAL) E.U./dL Ur Leukocyte Esterase NEGATIVE (NEGATIVE) Ur Microscopic Review NOT INDICATED Urine Culture Comments NOT INDICATED Urine HCG, Qual Urine Opiates Screen NEGATIVE (NEGATIVE) Ur Oxycodone Screen NEGATIVE (NEGATIVE) Urine Methadone Screen NEGATIVE (NEGATIVE) Ur Propoxyphene Screen NEGATIVE (NEGATIVE) Ur Barbiturates Screen NEGATIVE (NEGATIVE) Ur Tricyclics Screen NEGATIVE (NEGATIVE) Ur Phencyclidine Scrn NEGATIVE (NEGATIVE) Ur Amphetamine Screen POSITIVE H (NEGATIVE) U Methamphetamines Scrn POSITIVE H (NEGATIVE) U Benzodiazepines Scrn NEGATIVE (NEGATIVE) Urine Cocaine Screen NEGATIVE (NEGATIVE) U Cannabinoids Screen NEGATIVE (NEGATIVE) Serum Ketones (NEGATIVE) 02/06/18 02/06/18 02/06/18 Range/Units 18:40 18:40 14:37 WBC (4.8-10.8) x10^3/uL RBC (4.20-5.40) 10^6/uL Hgb (12.0-16.0) g/dL Hct (37.0-47.0) % MCV (81.0-99.0) fL MCH (27.0-31.0) pg MCHC (32.0-36.0) g/dL RDW (12.0-15.0) % Plt Count (130-450) 10^3/uL MPV (7.9-10.8) fL Neut # (Auto) (1.5-6.6) 10^3/uL Lymph # (Auto) (1.5-3.5) 10^3/uL Carlton # (Auto) (0.0-1.0) 10^3/uL Eos # (Auto) (0.0-0.7) 10^3/uL Baso # (Auto) (0.0-0.1) 10^3/uL Absolute Nucleated RBC x10^3/uL Nucleated RBC % /100WBC VBG pH 7.378 (7.31-7.41) VBG pCO2 20.7 L (41-51) mmHg VBG pO2 66.2 H (25-47) mmHg VBG HCO3 11.9 L (23-28) mmol/L VBG Total CO2 12.6 L (24-29) mmol/L VBG O2 Saturation 92.1 H (60-80) % VBG Base Excess -10.9 L (-2 - +2) mmol/L Sodium 129 L (135-145) mmol/L Potassium 4.4 (3.5-5.0) mmol/L Chloride 93 L (101-111) mmol/L Carbon Dioxide 9 L* (21-32) mmol/L Anion Gap 27.0 H (6-13) BUN 41 H (6-20) mg/dL Creatinine 1.3 H (0.4-1.0) mg/dL Estimated GFR (MDRD) 46 L (>89) Glucose 478 H (70-100) mg/dL POC Whole Bld Glucose (70 - 100) mg/dL Calcium 7.5 L (8.5-10.3) mg/dL Phosphorus (2.5-4.6) mg/dL Magnesium (1.7-2.8) mg/dL Total Bilirubin (0.2-1.0) mg/dL AST (10-42) IU/L ALT (10-60) IU/L Alkaline Phosphatase (42-121) IU/L Total Protein (6.7-8.2) g/dL Albumin (3.2-5.5) g/dL Globulin (2.1-4.2) g/dL Albumin/Globulin Ratio (1.0-2.2) Lipase (22-51) U/L Urine Color Urine Clarity (CLEAR) Urine pH (5.0-7.5) PH Ur Specific [place]y (1.002-1.030) Urine Protein (NEGATIVE) mg/dL Urine Glucose (UA) (NEGATIVE) mg/dL Urine Ketones (NEGATIVE) mg/dL Urine Occult Blood (NEGATIVE) Urine Nitrite (NEGATIVE) Urine Bilirubin (NEGATIVE) Urine Urobilinogen (NORMAL) E.U./dL Ur Leukocyte Esterase (NEGATIVE) Ur Microscopic Review Urine Culture Comments Urine HCG, Qual Urine Opiates Screen (NEGATIVE) Ur Oxycodone Screen (NEGATIVE) Urine Methadone Screen (NEGATIVE) Ur Propoxyphene Screen (NEGATIVE) Ur Barbiturates Screen (NEGATIVE) Ur Tricyclics Screen (NEGATIVE) Ur Phencyclidine Scrn (NEGATIVE) Ur Amphetamine Screen (NEGATIVE) U Methamphetamines Scrn (NEGATIVE) U Benzodiazepines Scrn (NEGATIVE) Urine Cocaine Screen (NEGATIVE) U Cannabinoids Screen (NEGATIVE) Serum Ketones LARGE H (NEGATIVE) 02/06/18 02/06/18 02/06/18 Range/Units 14:37 14:37 00:15 WBC 13.8 H (4.8-10.8) x10^3/uL RBC 5.34 (4.20-5.40) 10^6/uL Hgb 12.1 (12.0-16.0) g/dL Hct 40.3 (37.0-47.0) % MCV 75.4 L (81.0-99.0) fL MCH 22.7 L (27.0-31.0) pg MCHC 30.1 L (32.0-36.0) g/dL RDW 17.8 H (12.0-15.0) % Plt Count 299 (130-450) 10^3/uL MPV 7.7 L (7.9-10.8) fL Neut # (Auto) 11.3 H (1.5-6.6) 10^3/uL Lymph # (Auto) 1.9 (1.5-3.5) 10^3/uL Carlton # (Auto) 0.5 (0.0-1.0) 10^3/uL Eos # (Auto) 0.0 (0.0-0.7) 10^3/uL Baso # (Auto) 0.1 (0.0-0.1) 10^3/uL Absolute Nucleated RBC 0.01 x10^3/uL Nucleated RBC % 0.0 /100WBC VBG pH (7.31-7.41) VBG pCO2 (41-51) mmHg VBG pO2 (25-47) mmHg VBG HCO3 (23-28) mmol/L VBG Total CO2 (24-29) mmol/L VBG O2 Saturation (60-80) % VBG Base Excess (-2 - +2) mmol/L Sodium 128 L (135-145) mmol/L Potassium 5.6 H (3.5-5.0) mmol/L Chloride 92 L (101-111) mmol/L Carbon Dioxide 12 L* (21-32) mmol/L Anion Gap 24.0 H (6-13) BUN 38 H (6-20) mg/dL Creatinine 1.2 H (0.4-1.0) mg/dL Estimated GFR (MDRD) 51 L (>89) Glucose 233 H (70-100) mg/dL POC Whole Bld Glucose (70 - 100) mg/dL Calcium 8.5 (8.5-10.3) mg/dL Phosphorus (2.5-4.6) mg/dL Magnesium (1.7-2.8) mg/dL Total Bilirubin 1.7 H (0.2-1.0) mg/dL AST 33 (10-42) IU/L ALT 42 (10-60) IU/L Alkaline Phosphatase 239 H (42-121) IU/L Total Protein 8.0 (6.7-8.2) g/dL Albumin 3.7 (3.2-5.5) g/dL Globulin 4.3 H (2.1-4.2) g/dL Albumin/Globulin Ratio 0.9 L (1.0-2.2) Lipase 14 L (22-51) U/L Urine Color Urine Clarity (CLEAR) Urine pH (5.0-7.5) PH Ur Specific [place]y 1.025 (1.002-1.030) Urine Protein (NEGATIVE) mg/dL Urine Glucose (UA) (NEGATIVE) mg/dL Urine Ketones (NEGATIVE) mg/dL Urine Occult Blood (NEGATIVE) Urine Nitrite (NEGATIVE) Urine Bilirubin (NEGATIVE) Urine Urobilinogen (NORMAL) E.U./dL Ur Leukocyte Esterase (NEGATIVE) Ur Microscopic Review Urine Culture Comments Urine HCG, Qual NEGATIVE Urine Opiates Screen (NEGATIVE) Ur Oxycodone Screen (NEGATIVE) Urine Methadone Screen (NEGATIVE) Ur Propoxyphene Screen (NEGATIVE) Ur Barbiturates Screen (NEGATIVE) Ur Tricyclics Screen (NEGATIVE) Ur Phencyclidine Scrn (NEGATIVE) Ur Amphetamine Screen (NEGATIVE) U Methamphetamines Scrn (NEGATIVE) U Benzodiazepines Scrn (NEGATIVE) Urine Cocaine Screen (NEGATIVE) U Cannabinoids Screen (NEGATIVE) Serum Ketones (NEGATIVE) ABX Reporting Has patient been on IV antibiotics over the past 48 hours?: No Assessment/Plan - Problem List (1) DKA, type 1, not at goal Impression: She was admitted from the emergency room after receiving 2 L of normal saline. Insulin drip was started when she got to the floor. Her insulin drip has resulted in good control and she has dropped down to below 200. I am opting to keep her on the insulin drip at 0.5-1 units/h. We will use it as a baseline insulin pump. Resume Lantus 40 units subcu Start sliding scale insulin before meals before meals Stop insulin pump in 12 hours Calculate how much fixed dose insulin she will need before meals Stop hourly potassium supplementation Check BMP and ketones in the next hour Keep checking glucose every 2 hours (2) Toe ulcer due to DM Impression: Right third toe. At the very tip of the bulbous fleshy part of the toe. But also at the end of her distal toenail she appears to have a black eschar. There is no active infection and that the ulcers not open, weeping, red, or draining. The surrounding skin is dry. No evidence of redness heat, i.e. cellulitis. Other than continuing her antiplatelet therapy. No other intervention In the past she was not felt to be candidate for bypass surgery because of her continued substance abuse, homeless status, and noncompliance Qualifiers: Diabetes mellitus type: type 1 Laterality: right Non-pressure ulcer stage: unspecified non-pressure ulcer stage Qualified Code(s): E10.621 - Type 1 diabetes mellitus with foot ulcer; L97.519 - Non-pressure chronic ulcer of other part of right foot with unspecified severity (3) Leukocytosis, unspecified Impression: Her hypothermia is resolved and she is now febrile to 38 with this leukocytosis. Yesterday there is no objective findings of infection in that chest x-ray was normal. She has stable right midlung and right bibasilar segmental airspace disease that is unchanged over several x-rays. Urinalysis had ketonuria and glucosuria but no infection. This unfortunate female is always at risk for endocarditis from IV drug abuse.Source would be staph infections which she has had before, skin abscess which she has had before, cellulitis which she has had before, necrotizing fasciitis, botulism, tetanus, septic thrombophlebitis, bacterial endocarditis, hepatitis C or HIV. She also has a history of ischemic toes and diabetic foot ulcers. On today's exam I am not finding any active skin lesions, and while she does have a distal right third toe beginning ulcer, is not infected. I am not finding necrotizing fasciitis, sepsis, and we will treat empirically for endocarditis. Chatterjee antibiotic guide recommends not starting antibiotic therapy until 3 blood cultures are negative after 24-48 hours. If there is still negative, obtain 2-3 more blood cultures before starting empiric therapy. Plan: Treat the fever Check blood cultures x 2 now, and one in 1 hour. 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 Once again social work will do their best. (6) Methamphetamine abuse, episodic Impression: social work (7) Dehydration Impression: Definitely seen by dry oral mucosa, intravascular depletion on her labs. Her creatinine started 1.3 and is 0.9 today. Hemoglobin was 12 and is now 9 today. I do not think she is having a GI bleed but rather hemoconcentration now diluted with aggressive IV fluids.
[2018-02-07] MEDS ORDERED: INSULIN REGULAR HUMAN 100 UNIT in SODIUM CHLORIDE 0.9% 100ML 99 ML IV SCH (12:18)
[2018-02-07] MEDS ORDERED: INSULIN GLARGINE 300 UNIT/3 ML PEN SUBQ SCH (13:00)
[2018-02-07 13:37] LABS: CALCIUM 7.4 mg/dL (8.5-10.3); CREATININE 0.5 mg/dL (0.4-1.0)
[2018-02-07] MEDS: INSULIN ASPART 300 UNIT/3 ML PEN SUBQ SCH ×3 (13:41→21:17)
[2018-02-07] MEDS ORDERED: FERROUS GLUCONATE 324 MG TABLET PO SCH (14:00)
[2018-02-07] MEDS ORDERED: SODIUM CHLORIDE 0.9% 500 ML IV PRN (15:10)
[2018-02-07] MEDS ORDERED: SODIUM CHLORIDE 0.9% 250 ML IV PRN ×2 (15:17→15:22)
[2018-02-07] MEDS: AMITRIPTYLINE 25 MG TABLET PO SCH (21:16)
--- NOTE | 2018-02-07 21:59 | Discharge Plan ---
Discharge Plan Disposition: 02 Transfer Acute Care Hosp Condition: Serious No Smoking: If you smoke, Please STOP! Call for help.
[2018-02-07 22:07] VITALS: BP 140/91
--- NOTE | 2018-02-08 00:24 | DISCHARGE SUMMARY ---
Physician: Sandra Simmons MD DATE OF ADMISSION: 02/06/2018 DATE OF DISCHARGE: 02/07/2018 TRANSFER SUMMARY Please note that the patient is discharging/transferring to [facility] in [place]. She requires higher level of care and specialty consultations. DISCHARGE DIAGNOSES 1. Probable endocarditis with valve vegetation seen on echocardiogram. 2. Diabetic ketoacidosis secondary to noncompliance possibly secondary to sepsis/endocarditis. 3. Sepsis with tachycardia, fever and leukocytosis, source being bacteremia. 4. Recent infectious issues include streptococcus group B bacteremia, for which patient was treated in December 2017. At that time, she had cellulitis and abscesses in the axillary area. Drainage of the abscesses was sent for culture and grew both group B streptococcus and methicillin-resistant Staphylococcus aureus. In addition, patient was treated for pneumonia in the past, and she did have ischemic foot with chronic ulcers. In the past, she also was treated for osteomyelitis. 5. Noncompliance. 6. Polysubstance abuse, amphetamine and methamphetamine. 7. Dehydration/acute kidney injury secondary to diabetic ketoacidosis. 8. Fibromyalgia/chronic pain. 9. Homelessness. 10. Electrolyte abnormalities in the setting of diabetic ketoacidosis, including hyponatremia. 11. Tachycardia and hypertension on admission, likely situational plus secondary to noncompliance, patient not taking outpatient medications/rebound tachycardia, not taking beta tianna. DISCHARGE MEDICATIONS: Patient is discharging to acute care facility. We are discharging her without continuing medications and will defer new medication orders to the receiving facility. MEDICATIONS DURING HOSPITAL STAY 1. Amitriptyline. 2. Aspirin. 3. Cilostazol. 4. Diltiazem. 5. Cymbalta. 6. Famotidine. 7. Ferrous gluconate. 8. DVT prophylactic dose heparin. 9. Insulin. She received insulin glargine 40 units subcutaneously on February 07. 10. Toradol. 11. Reglan. 12. Metoprolol. 13. Zofran. 14. MiraLax. 15. Compazine. 16. IV fluids with normal saline. 17. Temazepam. 18. Tramadol. DISCHARGE CONDITION: Patient was alert, oriented, hemodynamically stable. Vital signs: with fever, temperature maximum was 38.4. Heart rate between 100 and 115, blood pressure 128/77, respiratory rate 18, oxygen saturation 98% on room air. Patient was neurologically nonfocal, verbalized understanding of discharge plan. BRIEF PRESENTATION AND HOSPITAL COURSE: Patient is a 37-year-old, chronically ill white female with past medical history of type 1 diabetes. She does have history of multiple infectious issues. She is frequently admitted to our hospital, plus she also gets admitted to [facility]. She does not usually stay out of the hospital for more than a week. She was admitted on February 06 with diabetic ketoacidosis and dehydration. She was found with elevated white blood cell count and fever. Blood cultures were sent; however, empiric antibiotic therapy was not started. She underwent echocardiogram, which showed probable vegetation. Therefore, patient needing higher level of care with cardiology consultation and transesophageal echocardiogram, she is being transferred to [facility] in [place]. Her transfer was coordinated by the daytime hospitalist, Dr. Jillian Sandhu, and subsequently I finished coordinating the patient's transfer. Notably, patient was accepted to the [facility] system with the expectation of receiving workup, specialty consultations and necessary diagnostic tests. However, subsequently the expectation is that she would come back to our hospital to complete antibiotic treatment for endocarditis. Time spent with coordinating this patient's discharge was 1 hour. TD: 02/07/2018 22:21 BRYANNA
== END 2018-02-07 22:35 | disposition short-term general hospital (02) | DRG 637 ==
LOC: ED 13:55 → ICU 20:26
PROVIDERS: ADMIT Internal Medicine; ATTEND Internal Medicine
PROC: 05HM33Z Insertion of Infusion Device into Right Internal Jugular Vein, Percutaneous Approach (ICD-10-PCS; principal; 2018-02-06)
PROC: B543ZZA Ultrasonography of Right Jugular Veins, Guidance (ICD-10-PCS; 2018-02-06)
DX: E10.10 Type 1 diabetes mellitus with ketoacidosis without coma (principal); A41.9 Sepsis, unspecified organism; F15.20 Other stimulant dependence, uncomplicated; R64 Cachexia; Z68.1 Body mass index [BMI] 19.9 or less, adult; E87.1 Hypo-osmolality and hyponatremia; N17.9 Acute kidney failure, unspecified; K86.1 Other chronic pancreatitis; I38 Endocarditis, valve unspecified; E10.621 Type 1 diabetes mellitus with foot ulcer; L97.519 Non-pressure chronic ulcer of other part of right foot with unspecified severity; Z91.14 Patient's other noncompliance with medication regimen; Z59.0 Homelessness; I10 Essential (primary) hypertension; E78.00 Pure hypercholesterolemia, unspecified; E10.51 Type 1 diabetes mellitus with diabetic peripheral angiopathy without gangrene; M79.7 Fibromyalgia; G89.29 Other chronic pain; F17.200 Nicotine dependence, unspecified, uncomplicated; E86.0 Dehydration; G31.84 Mild cognitive impairment of uncertain or unknown etiology; Z89.429 Acquired absence of other toe(s), unspecified side; F60.9 Personality disorder, unspecified; T68.XXXA Hypothermia, initial encounter; X31.XXXA Exposure to excessive natural cold, initial encounter
CPT/HCPCS: 36415; 36556; 71045; 80048; 80053; 80306; 81001; 81003; 81025; 82009; 82803; 82947; 83690; 83735; 84100; 85025; 87040; 87086; 87150; 93306; 96365; 96366; 96375; 96376; 99284; 99291

== ENCOUNTER 2018-02-07 22:36 | Outpatient (CLI) | payer MEDICAID | END 2018-02-07 22:37 | disposition short-term general hospital (02) | LOC: EMS 22:36 | PROVIDERS: ATTEND Surgery | DX: I38 Endocarditis, valve unspecified (principal); E10.8 Type 1 diabetes mellitus with unspecified complications | CPT/HCPCS: A0170; A0425; A0428 ==

== ENCOUNTER 2018-02-09 11:48 | Inpatient (IN) | payer MEDICAID ==
[2018-02-09] MEDS ORDERED: PROCHLORPERAZINE 10 MG/2 ML VIAL IVP PRN (12:50)
[2018-02-09] MEDS ORDERED: ONDANSETRON 4 MG/2 ML VIAL IVP PRN (12:50)
[2018-02-09] MEDS: ACETAMINOPHEN 325 MG TABLET PO PRN (18:40)
[2018-02-09] MEDS: SODIUM CHLORIDE FLUSH 0.9% 10 ML SYRINGE IVP SCH (18:41)
[2018-02-09] MEDS: SODIUM CHLORIDE 0.9% 1,000 ML IV SCH ×2 (18:41→21:43)
[2018-02-09] MEDS: INSULIN ASPART 300 UNIT/3 ML PEN SUBQ SCH ×2 (18:46→21:06)
--- NOTE | 2018-02-09 18:57 | HISTORY & PHYSICAL EXAMINATION ---
Chief Complaint - Chief Complaint Chief Complaint: Swelling, Pain and redness of the right third toe History of Present Illness - Admitted From Admitted From:: [facility] - History Obtained From Records Reviewed: Yes History obtained from: Patient in medical record Exam Limitations: None - History of Present Illness HPI Comment/Other: Patient is a 37-year-old female with a past medical history significant for insulin-dependent diabetes mellitus type 1 with recurrent episodes of diabetic ketoacidosis secondary to noncompliance with medication, methamphetamine abuse, personality disorder, bipolar, polysubstance abuse, ADHD, hypertension, sinus tachycardia, homelessness, fibromyalgia, chronic pain, osteomyelitis status post multiple toe amputations with 18 admissions so far in [address] [facility] along with multiple admissions at [facility] for diabetic ketoacidosis who was recently hospitalized here at [facility] on 02/06/2018 for diabetic ketoacidosis. She was treated for DKA which resolved while she was hospitalized and then was found to be febrile. Patient underwent an echocardiogram which showed a possible vegetation. For the vegetation she was transferred to [facility] for a transesophageal echocardiogram. At [facility] the patient underwent a transesophageal echocardiogram for possible mitral vegetation but the workup was negative and patient had negative blood cultures. She had no further fevers while she was hospitalized at [facility]. Cardiology was consulted and KEEGAN was done which revealed no sign of endocarditis. Other possible sources of fever were considered in her right third toe appeared to have a chronic ulcer. The patient's right third toe was erythematous and appeared swollen and tender. The patient underwent an MRI which revealed an enhancing signal in the right third toe consistent with osteomyelitis. The patient reported that she had had multiple surgeries at [facility] and the patient was sent back to [facility] for possible further amputation. The patient was not started on antibiotics at [facility]. The patient was being treated at [facility] for diabetes mellitus type 1 for which she was receiving 40 units of Lantus nightly with pre-meal coverage and her sugars were well controlled. She also had per potassium and magnesium replaced while she was at [place]. The patient's diabetic neuropathy was treated with gabapentin and one-time dose of ketorolac. On presentation to [facility] the patient continued to complain of pain in her right third toe. She denied any fevers or chills. She was asking for pain medication. She stated that Toradol does not work for her and neither does Tylenol. She stated that she does not care when she gets but she wants something to help with the pain. She denied any changes in her appetite, nausea or vomiting. She denies any chest pain or shortness of breath. Patient denies any urinary urgency frequency or dysuria. Patient denies any abdominal pain. Patient denies any polyuria or polydipsia. She denies any headaches or focal neurologic deficits. History - Past Medical History Cardiovascular: reports: Hypertension, High cholesterol, Peripheral Vascular Disease, [place] Respiratory: reports: None Neuro: reports: Peripheral neuropathy, Other Endocrine/Autoimmune: reports: Type 1 diabetes GI: reports: Pancreatitis OFFICE ELECTRICIAN: reports: None : reports: Incontinence HEENT: reports: None Psych: reports: Depression, Anxiety, Panic attacks Musculoskeletal: reports: Fibromyalgia Derm: reports: None MRSA Hx?: Yes - Past Surgical History General: reports: Cholecystectomy HEENT: reports: Tonsil/Adenoidectomy - Family & Social History Family History: Father: , CAD, CVA/TIA, Hyperlipidemia, Hypertension, MA Living arrangement: Homeless Living Situation: Alone Social History Notes: The patient is homeless and lives in a tent. 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 The patient has 2 children who live with her stepmother as she has been unable to get her life together enough to be able to help raise them. She has been living on [address] [facility] for the last 4 years prior to that she lived in [place]. She does smoke a few cigarettes a day denies any alcohol use. She does continue to use methamphetamine. - Substance History Use: Uses substance without health or social issues: NONE - POLST Patient has POLST: No POLST Status: Full Code Meds/Allgy - Home Medications Home Medications: Ambulatory Orders Medication Instructions Recorded Confirmed Amitriptyline [Elavil] 25 mg PO HS #20 tablet 01/06/18 02/07/18 Aspirin [Aspirin EC] 81 mg PO DAILY #30 tablet. 01/06/18 02/07/18 Cilostazol [Pletal] 100 mg PO BID #60 tablet 01/06/18 02/07/18 HYDROmorphone [Dilaudid] 2 mg PO DAILY PRN #4 tablet 01/06/18 02/07/18 Ibuprofen [Motrin] 600 mg PO Q6HR PRN #60 tablet 01/06/18 02/07/18 Insulin Aspart [NovoLOG] 15 unit SUBQ TIDWM #1 pen 01/06/18 02/07/18 Insulin Glargine [Lantus Solostar] 40 unit SUBQ QPM #3 pen 01/06/18 02/07/18 Metoclopramide [Reglan] 10 mg PO ACHS #60 tablet 01/06/18 02/07/18 Metoprolol Succinate [Toprol Xl] 25 mg PO BID #60 tablet 01/06/18 02/07/18 diltiaZEM CD [Cardizem Cd] 120 mg PO DAILY #30 capsule 01/06/18 02/07/18 traMADol [Ultram] 50 mg PO Q6H PRN #10 tablet 01/06/18 02/07/18 DULoxetine [Cymbalta] 20 mg PO DAILY 02/09/18 cloNIDine HCl [Clonidine HCl] 0.1 mg PO BID 02/09/18 02/09/18 - Allergies Allergies/Adverse Reactions: Allergies Allergy/AdvReac Type Severity Reaction Status Date / Time morphine Allergy Unknown Itching Verified 02/06/18 22:07 codeine Allergy Hives Verified 01/13/18 10:25 hydrocodone Allergy Hives Verified 01/13/18 10:25 adhesive tape AdvReac Unknown Verified 02/06/18 21:56 milk AdvReac Cramps Verified 01/13/18 10:25 nitrofurantoin AdvReac Headache Verified 01/13/18 10:25 [From Macrobid] Review of Systems - Other Findings Other Findings: A comprehensive review of systems was performed the pertinent positives and negatives are stated above in the HPI and the remainder of the review of systems is negative. Prior Level of Functionality: Homeless, noncompliant with medical treatment. Lives in a tent. Chooses not to care for herself but physically capable. Exam - Vital Signs Reviewed Vital Signs: Yes Vital Signs: Vital Signs x48h Temp Pulse Resp BP Pulse Ox 02/09/18 18:26 36.7 C 105 H 18 138/101 H 98 - Physical Exam General Appearance: positive: No acute distress, Alert, Other (Disheveled looking) Eyes Bilateral: positive: Normal inspection, PERRL, No lid inflammation, Conjunctivae nml, No scleral icterus ENT: positive: ENT inspection nml, Pharynx nml, No signs of dehydration. negative: Purulent nasal drainage, Pharyngeal erythema, Oral lesions Neck: positive: Nml inspection, Thyroid nml, No JVD, Trachea midline. negative: Lymphadenopathy (R), Lymphadenopathy (L) Respiratory: positive: Chest non-tender, No respiratory distress, Breath sounds nml. negative: Wheezes, Rales, Rhonchi Cardiovascular: positive: Regular rate & rhythm, No murmur, No gallop Peripheral Pulses: positive: 2+ Abdomen: positive: Non-tender, No organomegaly, Nml bowel sounds, No distention. negative: Guarding, Rebound, Hepatomegaly Back: positive: Nml inspection. negative: CVA tenderness (R), CVA tenderness (L) Skin: positive: Other (Third toe on right foot with swelling, erythema) Extremities: positive: Non-tender, Full ROM, Nml appearance, No pedal edema, Ot her (Multiple toe amputations) Neurologic/Psychiatric: positive: Oriented x3, Mood/affect nml Conclusion/Plan - Problem List (1) Osteomyelitis Conclusion/Plan: Patient had fever while she was hospitalized at [facility] on 02/07/2018. She was transferred to [facility] for possible endocarditis. There KEEGAN revealed no endocarditis. She was worked up further and found to have a right third toe ulcer that was swollen and erythematous and tender. MRI was done of the toe which showed evidence for osteomyelitis. Patient was transferred back to [facility] for orthopedic consult and possible amputation. Plan: IV antibiotics with vancomycin and Zosyn Daily CBC, CRP ESR Orthopedic consult for possible amputation. Qualifiers: Osteomyelitis type: subacute Osteomyelitis location: foot Laterality: right Qualified Code(s): M86.271 - Subacute osteomyelitis, right ankle and foot (2) Type 1 diabetes mellitus Conclusion/Plan: Patient will be continued on her home regimen of 40 units of Lantus mealtime insulin and sliding scale insulin. Patient replaced on diabetic diet. We will continue to monitor the patient's blood glucose before meals at bedtime. Qualifiers: Diabetes mellitus complication status: with hyperglycemia Qualified C ode(s): E10.65 - Type 1 diabetes mellitus with hyperglycemia (3) Patient's noncompliance with other medical treatment and regimen Conclusion/Plan: Patient has a history of noncompliance with her medical regimen. She was counseled once again on the need for compliance. Social work will be consulted. (4) Polysubstance abuse Conclusion/Plan: Patient has a history of polysubstance abuse including methamphetamines and opioid abuse. The patient will not be given opioids while she is hospitalized. She will be seen by social work. (5) Chronic pain Conclusion/Plan: Patient has history of chronic pain but due to her opioid abuse and polysubstance abuse we will avoid opioids while she is hospitalized. Patient will be treated with Tylenol, Toradol and gabapentin for her pain. Qualifiers: Chronic pain type: other chronic pain Qualified Code(s): G89.29 - Other chronic pain - Lab Results Lab results reviewed: Yes - Diagnostic Imaging Results Diagnostic Imaging Results: positive: Final report reviewed Diagnostic Imaging Results Comments: MRI right foot Impression: Enhancing signal in the right third toe consistent with osteomyelitis Core Measures - Anticipated LOS I expect patient to be DC'd or transferred within 96 hours.: Yes - DVT/VTE - Prophylaxis VTE/DVT Prophylaxis med ordered at admit?: Yes
[2018-02-09] MEDS ORDERED: VANCOMYCIN INJ 1.5 GM in SODIUM CHLORIDE 0.9% 500 ML IV SCH (19:00)
[2018-02-09] MEDS ORDERED: PIPERACILLIN/TAZOBACTAM 3.375 GM in SODIUM CHLORIDE 0.9% MINIBAG 100 ML IV SCH ×2 (19:00→21:00)
[2018-02-09] MEDS: GABAPENTIN 400 MG CAPSULE PO SCH ×2 (19:11→21:42)
[2018-02-09] MEDS: KETOROLAC 30 MG/ML VIAL IVP PRN (19:11)
[2018-02-09] MEDS ORDERED: VANCOMYCIN PER PHARMACY 0.1 GM in SODIUM CHLORIDE 0.9% 250 ML IV SCH (21:00)
[2018-02-09] MEDS ORDERED: INSULIN GLARGINE 300 UNIT/3 ML PEN SUBQ SCH (21:00)
[2018-02-09] MEDS: FAMOTIDINE 20 MG TABLET PO SCH (21:05)
[2018-02-09] MEDS ORDERED: VANCOMYCIN INJ 0.75 GM in SODIUM CHLORIDE 0.9% 250 ML IV SCH (22:00)
[2018-02-10] MEDS: PIPERACILLIN/TAZOBACTAM 3.375 GM in SODIUM CHLORIDE 0.9% MINIBAG 100 ML IV SCH ×4 (01:09→23:51)
[2018-02-10] MEDS: SODIUM CHLORIDE FLUSH 0.9% 10 ML SYRINGE IVP SCH ×4 (01:13→23:52)
[2018-02-10] MEDS: KETOROLAC 30 MG/ML VIAL IVP PRN ×4 (01:15→20:57)
[2018-02-10] MEDS: GABAPENTIN 400 MG CAPSULE PO SCH ×3 (06:00→21:52)
[2018-02-10] MEDS: ACETAMINOPHEN 325 MG TABLET PO PRN ×4 (06:01→21:55)
[2018-02-10 06:15] LABS: BASOPHILS % (AUTO) 0.5 %; EOSINOPHILS % (AUTO) 0.7 %; HGB - HEMOGLOBIN 8.5 g/dL (12.0-16.0); LYMPHOCYTES # (AUTO) 1.7 10^3/uL (1.5-3.5); LYMPHOCYTES % (AUTO) 37.4 %; MEAN CORPUSCULAR HEMOGLOBIN 22.7 pg (27.0-31.0); MEAN CORPUSCULAR HGB CONC 30.2 g/dL (32.0-36.0); MEAN CORPUSCULAR VOLUME 75.1 fL (81.0-99.0); MEAN PLATELET VOLUME 6.8 fL (7.9-10.8); MONOCYTES # (AUTO) 0.3 10^3/uL (0.0-1.0); MONOCYTES % (AUTO) 5.7 %; NEUTROPHILS # (AUTO) 2.6 10^3/uL (1.5-6.6); NEUTROPHILS % (AUTO) 55.7 %; PLT - PLATELET COUNT 251 10^3/uL (130-450); RED BLOOD COUNT 3.76 10^6/uL (4.20-5.40); RED CELL DISTRIBUTION WIDTH 17.7 % (12.0-15.0); WHITE BLOOD COUNT 4.6 x10^3/uL (4.8-10.8)
[2018-02-10 06:33] LABS: ALBUMIN 2.7 g/dL (3.2-5.5); ALBUMIN/GLOBULIN RATIO 0.8 (1.0-2.2); ALKALINE PHOSPHATASE 165 IU/L (42-121); ALT ALANINE AMINOTRANSFERASE 51 IU/L (10-60); AST ASPARTATE AMINOTRANSFERASE 71 IU/L (10-42); BILIRUBIN,TOTAL 0.2 mg/dL (0.2-1.0); BUN - BLOOD UREA NITROGEN 13 mg/dL (6-20); CARBON DIOXIDE - CO2 27 mmol/L (21-32); CHLORIDE 97 mmol/L (101-111); CREATININE 0.5 mg/dL (0.4-1.0); GFR - MDRD 140 (>89); GLUCOSE 242 mg/dL (70-100); MAGNESIUM 1.6 mg/dL (1.7-2.8); PHOSPHORUS 4.3 mg/dL (2.5-4.6); SODIUM 137 mmol/L (135-145); TOTAL PROTEIN 5.9 g/dL (6.7-8.2)
[2018-02-10 06:39] LABS: CRP - C-REACTIVE PROTEIN < 1.0 mg/dL (0-1.0)
[2018-02-10 06:43] LABS: VBG PH 7.423 (7.31-7.41)
[2018-02-10] MEDS: SODIUM CHLORIDE 0.9% 1,000 ML IV SCH ×2 (06:44→23:51)
[2018-02-10] MEDS: ENOXAPARIN 40 MG/0.4 ML SYRINGE SUBQ SCH (08:21)
[2018-02-10] MEDS: SODIUM CHLORIDE FLUSH 0.9% 10 ML SYRINGE IVP PRN ×2 (08:21→14:23)
[2018-02-10] MEDS: POLYETHYLENE GLYCOL 3350 17 GM PACKET PO SCH (08:21)
[2018-02-10] MEDS: FAMOTIDINE 20 MG TABLET PO SCH ×2 (08:22→21:02)
[2018-02-10] MEDS: INSULIN ASPART 300 UNIT/3 ML PEN SUBQ SCH ×4 (08:27→21:05)
[2018-02-10] MEDS: traMADol 50 MG TABLET PO PRN ×4 (09:57→23:52)
[2018-02-10] MEDS: VANCOMYCIN INJ 1 GM in SODIUM CHLORIDE 0.9% 250 ML IV SCH ×2 (09:57→17:34)
--- NOTE | 2018-02-10 11:49 | PROVIDER PROGRESS NOTE ---
Assessment/Plan - Problem List (1) Osteomyelitis Qualifiers: Osteomyelitis type: subacute Osteomyelitis location: foot Laterality: right Qualified Code(s): M86.271 - Subacute osteomyelitis, right ankle and foot Assessment/Plan: Fever with swelling, pain and pus from her right third toe while she was at [facility]. She underwent an MRI of the toe which revealed enhancing signal in that toe consistent with osteomyelitis. The patient was transferred back to [facility] for further treatment and possible amputation. Plan: Patient started on IV antibiotics with vancomycin and Zosyn Orthopedic surgery consulted and will perform amputation of the toe later today Pain control with tramadol, Tylenol and Toradol (2) Type 1 diabetes mellitus Qualifiers: Diabetes mellitus complication status: with circulatory complication Diabetes mellitus complication detail: with other circulatory complications Qualified Code(s): E10.59 - Type 1 diabetes mellitus with other circulatory complications Assessment/Plan: Patient's blood glucose was low last night. We will decrease patient's Lantus to 30 units nightly Continue sliding scale insulin Continue diabetic diet (3) Patient's noncompliance with other medical treatment and regimen Assessment/Plan: Patient was counseled on need for compliance especially after another toe amputation. She will need to follow-up with orthopedic surgery. She also needs to follow-up with her primary care physician and take her insulin as an outpatient. (4) Polysubstance abuse Assessment/Plan: Patient counseled on need to stop using methamphetamine and other drugs. Due to her previous abuse of opioids we are limiting her use of opioids while hospitalized. Given that she now has a osteomyelitis with severe pain in her toe we will allow her tramadol for this hospitalization. (5) Chronic pain Qualifiers: Chronic pain type: other chronic pain Qualified Code(s): G89.29 - Other chronic pain Assessment/Plan: As above patient has history of opioid abuse and therefore we will limit her opioids. But given that she is currently having severe pain from osteomyelitis of her third toe on the right foot. We will allow for tramadol - Current Meds Current Meds: Current Medications Generic Name Dose Route Start Last Admin Trade Name Freq PRN Reason Stop Dose Admin Acetaminophen 650 mg 02/09/18 12:50 02/10/18 06:01 Tylenol PO 650 mg Q4HR PRN Administration Pain 1 to 4 Enoxaparin Sodium 40 mg 02/10/18 09:00 02/10/18 08:21 Lovenox SUBQ 40 mg DAILY SYLVIA Administration Famotidine 20 mg 02/09/18 21:00 02/10/18 08:22 Pepcid PO 20 mg BID SYLVIA Administration Gabapentin 800 mg 02/09/18 18:57 02/10/18 06:00 Neurontin PO 800 mg TID SYLVIA Administration Heparin Sodium (Beef Lung) 30 - 50 unit 02/10/18 09:57 02/10/18 09:59 IVP 30 unit PRN PRN Administration Central Line Protocol (<24 hr) Sodium Chloride 1,000 mls @ 100 mls/hr 02/09/18 13:00 02/10/18 09:58 Normal Saline 0.9% IV 0 mls/hr .Q10H SYLVIA Infusion Piperacillin Sod/Tazobactam 100 mls @ 25 mls/hr 02/10/18 01:00 02/10/18 08:21 Sod 3.375 gm/ Sodium Chloride IV 25 mls/hr Q8H SYLVIA Administration Vancomycin HCl 1 gm/ Sodium 250 mls @ 167 mls/hr 02/10/18 10:00 02/10/18 09:57 Chloride IV 167 mls/hr Q8H SYLVIA Administration Insulin Aspart 1 - 9 unit 02/09/18 17:00 02/10/18 11:24 Novolog SUBQ Not Given 0800,1200,1700,2100 [facility] Protocol Ketorolac Tromethamine 30 mg 02/09/18 18:49 02/10/18 08:20 Toradol Inj (30mg) IVP 02/14/18 18:48 30 mg Q6HR PRN Administration PAIN Polyethylene Glycol 17 gm 02/10/18 09:00 02/10/18 08:21 Miralax PO 17 gm DAILY SYLVIA Administration Sodium Chloride 10 ml 02/09/18 12:50 02/10/18 08:21 Normal Saline Flush 0.9% IVP 10 ml PRN PRN Administration NEEDED PER PROVIDER ORDERS Sodium Chloride 10 ml 02/09/18 17:00 02/10/18 08:21 Normal Saline Flush 0.9% IVP 10 ml 0100,0900,1700 SYLVIA Administration Tramadol HCl 50 mg 02/10/18 08:54 02/10/18 09:57 Ultram PO 50 mg Q4HR PRN Administration PAIN - Lab Result Lab results reviewed: Yes Fish Bone Diagrams: 02/10/18 05:45 02/10/18 05:45 - Diagnostic Imaging Results Diagnostic Imaging Results: Final report reviewed - Additional Planning Condition/Complexity: Guarded My Orders: My Active Orders 02/09/18 12:50 Activity Orders [RC] Routine IO [RC] IOSHIFT Initiate Bowel Care Protocol [RC] .protocol Initiate Line Care Protocol [RC] QSHIFT Initiate Personal Care Protoco [RC] .protocol Oxygen Therapy [RC] Routine Vital Signs [RC] 0800,1600,0000 Acetaminophen [Tylenol] 650 mg PO Q4HR PRN Ondansetron Inj [Zofran Inj] 4 mg IVP Q6HR PRN Prochlorperazine Inj [Compazine Inj] 10 mg IVP Q6HR PRN Sodium Chloride Flush 0.9% [Normal Saline Flush 0.9%] 10 ml IVP PRN PRN Code Status [OTHERS] Routine Condition of Patient [OTHERS] Routine DVT Prophylaxis [OTHERS] Routine 02/09/18 12:53 Blood Glucose Checks - Eating [RC] 0800,1200,1700,2100 Initiate Hypoglycemia Protocol [RC] .protocol 02/09/18 13:00 Sodium Chloride 0.9% [Normal Saline 0.9%] 1,000 ml IV 100 mls/hr 02/09/18 17:00 Insulin Aspart [NovoLOG] 1 - 9 unit SUBQ 0800,1200,1700,2100 Sodium Chloride Flush 0.9% [Normal Saline Flush 0.9%] 10 ml IVP 0100,0900,1700 02/09/18 18:49 Ketorolac Inj (30Mg) [Toradol Inj (30Mg)] 30 mg IVP Q6HR PRN 02/09/18 18:57 Gabapentin [Neurontin] 800 mg PO TID 02/09/18 21:00 Famotidine [Pepcid] 20 mg PO BID 02/09/18 Dinner Carb-controlled Diet [DIET] 02/10/18 08:54 traMADol [Ultram] 50 mg PO Q4HR PRN 02/10/18 09:00 Enoxaparin [Lovenox] 40 mg SUBQ DAILY Polyethylene Glycol 3350 [Miralax] 17 gm PO DAILY 02/10/18 09:57 Heparin Flush 30 - 50 unit IVP PRN PRN 02/10/18 11:00 Aspirin EC [Ecotrin] 81 mg PO DAILY DULoxetine [Cymbalta] 20 mg PO DAILY Metoprolol Succinate [Toprol Xl] 25 mg PO BID 02/10/18 21:00 Amitriptyline [Elavil] 25 mg PO HS Cilostazol [Pletal] 100 mg PO BID Insulin Glargine [Lantus Solostar] 30 unit SUBQ QPM cloNIDine [Catapres] 0.1 mg PO BID 02/11/18 05:00 CBC - COMP BLD CT W/AUTO DIFF [HEME] DAILYLAB CMP, RFLX TO IONIZED CA IF [CHEM] DAILYLAB CRP - C-REACTIVE PROTEIN [CHEM] DAILYLAB ESR- ERYTHROCYTE SEDIMENT RATE [HEME] DAILYLAB MAGNESIUM [CHEM] DAILYLAB PHOSPHORUS [CHEM] DAILYLAB 02/11/18 09:00 [id number] CD [Cardizem Cd] 120 mg PO DAILY 02/12/18 05:00 CBC - COMP BLD CT W/AUTO DIFF [HEME] DAILYLAB CMP, RFLX TO IONIZED CA IF [CHEM] DAILYLAB CRP - C-REACTIVE PROTEIN [CHEM] DAILYLAB ESR- ERYTHROCYTE SEDIMENT RATE [HEME] DAILYLAB MAGNESIUM [CHEM] DAILYLAB PHOSPHORUS [CHEM] DAILYLAB 02/13/18 05:00 CBC - COMP BLD CT W/AUTO DIFF [HEME] DAILYLAB CMP, RFLX TO IONIZED CA IF [CHEM] DAILYLAB CRP - C-REACTIVE PROTEIN [CHEM] DAILYLAB ESR- ERYTHROCYTE SEDIMENT RATE [HEME] DAILYLAB MAGNESIUM [CHEM] DAILYLAB PHOSPHORUS [CHEM] DAILYLAB 02/14/18 05:00 CBC - COMP BLD CT W/AUTO DIFF [HEME] DAILYLAB CMP, RFLX TO IONIZED CA IF [CHEM] DAILYLAB CRP - C-REACTIVE PROTEIN [CHEM] DAILYLAB ESR- ERYTHROCYTE SEDIMENT RATE [HEME] DAILYLAB MAGNESIUM [CHEM] DAILYLAB PHOSPHORUS [CHEM] DAILYLAB 02/15/18 05:00 CBC - COMP BLD CT W/AUTO DIFF [HEME] DAILYLAB CMP, RFLX TO IONIZED CA IF [CHEM] DAILYLAB CRP - C-REACTIVE PROTEIN [CHEM] DAILYLAB ESR- ERYTHROCYTE SEDIMENT RATE [HEME] DAILYLAB MAGNESIUM [CHEM] DAILYLAB PHOSPHORUS [CHEM] DAILYLAB Consult/Specialty: Other (Orthopedic surgery) Plan Discussed with:: Patient Time Spent: 31-60 minutes Subjective - Subjective Patient Reports: Pain (Right 3rd toe. Excruciating pain.), Other (Low blood glucose last night.) Nursing Reports: No Complaints Objective Vital Signs: Vital Signs - 24 hr 02/09/18 02/10/18 02/10/18 18:26 01:05 08:00 Temperature 36.7 C 37 C 36.8 C Heart Rate [ 105 H 94 107 H Brachial] Respiratory 18 16 18 Rate Blood Pressure 138/101 H 140/85 H 139/106 H [Right Brachial artery] O2 Saturation 98 95 02/10/18 08:31 Temperature Heart Rate [ Brachial] Respiratory Rate Blood Pressure [Right Brachial artery] O2 Saturation 95 Oxygen O2 Source [Without Activity] Room air O2 Source Room air I&O (Last 24 Hrs): Intake and Output Totals x24h 02/08/18 02/09/18 02/10/18 23:59 23:59 23:59 Intake Total 737 1823.333 Output Total 1875 Balance 737 -51.667 General: Alert, Oriented x3, Cooperative, Moderate distress (Secondary to pain in her right foot) HEENT: Atraumatic, PERRLA, EOMI, Mucous membr. moist/pink Neck: Supple, No JVD, No thyromegaly, +2 carotid pulse wo bruit, No LAD Lymphatic: no adenopathy Neuro: Alert, Non Focal, CN 2-12 Grossly Intact, Oriented Times 3 Cardiovascular: Regular rate, Normal S1, Normal S2, No murmurs Respiratory: Chest non-tender, No respiratory distress, Breath sounds nml Abdomen: Normal bowel sounds, Soft, No tenderness, No hepatospenomegaly Extremities: No edema, Other (3rd toe on the right foot is swollen with erythema and draining.) Skin: No rashes Comments/Notes: 3rd tow on right foot erythema, swollen, draining. - Results Results: Laboratory Results WBC 4.6 x10^3/uL (4.8-10.8) L 02/10/18 05:45 RBC 3.76 10^6/uL (4.20-5.40) L 02/10/18 05:45 Hgb 8.5 g/dL (12.0-16.0) L 02/10/18 05:45 Hct 28.2 % (37.0-47.0) L 02/10/18 05:45 MCV 75.1 fL (81.0-99.0) L 02/10/18 05:45 MCH 22.7 pg (27.0-31.0) L 02/10/18 05:45 MCHC 30.2 g/dL (32.0-36.0) L 02/10/18 05:45 RDW 17.7 % (12.0-15.0) H 02/10/18 05:45 Plt Count 251 10^3/uL (130-450) 02/10/18 05:45 MPV 6.8 fL (7.9-10.8) L 02/10/18 05:45 Neut # (Auto) 2.6 10^3/uL (1.5-6.6) 02/10/18 05:45 Lymph # (Auto) 1.7 10^3/uL (1.5-3.5) 02/10/18 05:45 Swift # (Auto) 0.3 10^3/uL (0.0-1.0) 02/10/18 05:45 Eos # (Auto) 0.0 10^3/uL (0.0-0.7) 02/10/18 05:45 Baso # (Auto) 0.0 10^3/uL (0.0-0.1) 02/10/18 05:45 Absolute Nucleated RBC 0.00 x10^3/uL 02/10/18 05:45 Nucleated RBC % 0.0 /100WBC 02/10/18 05:45 ESR 42 mm/Hr (0-20) H 02/10/18 05:45 VBG pH 7.423 (7.31-7.41) H 02/10/18 05:45 Ionized Calcium 1.02 mmol/L (1.15-1.33) L 02/10/18 05:45 Sodium 137 mmol/L (135-145) 02/10/18 05:45 Potassium 3.7 mmol/L (3.5-5.0) 02/10/18 05:45 Chloride 97 mmol/L (101-111) L 02/10/18 05:45 Carbon Dioxide 27 mmol/L (21-32) 02/10/18 05:45 Anion Gap 13.0 (6-13) 02/10/18 05:45 BUN 13 mg/dL (6-20) 02/10/18 05:45 Creatinine 0.5 mg/dL (0.4-1.0) 02/10/18 05:45 Estimated GFR (MDRD) 140 (>89) 02/10/18 05:45 Glucose 242 mg/dL (70-100) H 02/10/18 05:45 POC Whole Bld Glucose 118 mg/dL (70 - 100) H 02/10/18 11:13 Calcium 8.0 mg/dL (8.5-10.3) L 02/10/18 05:45 Ionized Calcium YES 02/10/18 05:45 Phosphorus 4.3 mg/dL (2.5-4.6) 02/10/18 05:45 Magnesium 1.6 mg/dL (1.7-2.8) L 02/10/18 05:45 Total Bilirubin 0.2 mg/dL (0.2-1.0) 02/10/18 05:45 AST 71 IU/L (10-42) H 02/10/18 05:45 ALT 51 IU/L (10-60) 02/10/18 05:45 Alkaline Phosphatase 165 IU/L (42-121) H 02/10/18 05:45 C-Reactive Protein < 1.0 mg/dL (0-1.0) 02/10/18 05:45 Total Protein 5.9 g/dL (6.7-8.2) L 02/10/18 05:45 Albumin 2.7 g/dL (3.2-5.5) L 02/10/18 05:45 Globulin 3.2 g/dL (2.1-4.2) 02/10/18 05:45 Albumin/Globulin Ratio 0.8 (1.0-2.2) L 02/10/18 05:45 - Procedures Procedures: Procedures DETACHMENT AT LEFT 4TH TOE, LOW, OPEN APPROACH (06/30/17) DETACHMENT AT RIGHT 1ST TOE, LOW, OPEN APPROACH (03/14/17) DETACHMENT AT RIGHT 2ND TOE, HIGH, OPEN APPROACH (06/30/17) DETACHMENT AT RIGHT 4TH TOE, HIGH, OPEN APPROACH (06/30/17) DRAINAGE OF L LOW ARM SUBCU/FASCIA, OPEN APPROACH (12/30/17) DRAINAGE OF RIGHT AXILLA, OPEN APPROACH (12/30/17) INSERT INFUSION DEV IN R INT JUGULAR VEIN, PERC (02/06/18) INSERTION OF INFUSION DEV INTO R SUBCLAV VEIN, PERC APPROACH (03/14/17) INSERTION OF INFUSION DEV INTO SUP VENA CAVA, PERC APPROACH (01/24/18) INSERTION OF INFUSION DEVICE INTO LOWER VEIN, PERC APPROACH (08/13/17) INSERTION OF INFUSION DEVICE INTO R ATRIUM, PERC APPROACH (01/13/18) TRANSFUSE NONAUT RED BLOOD CELLS IN CENTRAL VEIN, PERC (12/01/17) TRANSFUSE NONAUT RED BLOOD CELLS IN PERIPH VEIN, PERC (01/22/17) ULTRASONOGRAPHY OF RIGHT JUGULAR VEINS, GUIDANCE (02/06/18) ABX Reporting Has patient been on IV antibiotics over the past 48 hours?: No Current Medications - Current Medications Current Medications: Active Medications Generic Name Dose Route Start Last Admin Trade Name Freq PRN Reason Stop Dose Admin Acetaminophen 650 mg 02/09/18 12:50 02/10/18 06:01 Tylenol PO 650 mg Q4HR PRN Administration Pain 1 to 4 Amitriptyline HCl 25 mg 02/10/18 21:00 Elavil PO HS SYLVIA Aspirin 81 mg 02/10/18 11:00 Ecotrin PO DAILY SYLVIA Cilostazol 100 mg 02/10/18 21:00 Pletal PO BID SYLVIA Clonidine HCl 0.1 mg 02/10/18 21:00 Catapres PO BID SYLVIA Diltiazem HCl 120 mg 02/11/18 09:00 Cardizem Cd PO DAILY SYLVIA Duloxetine HCl 20 mg 02/10/18 11:00 Cymbalta PO DAILY SYLVIA Enoxaparin Sodium 40 mg 02/10/18 09:00 02/10/18 08:21 Lovenox SUBQ 40 mg DAILY SYLVIA Administration Famotidine 20 mg 02/09/18 21:00 02/10/18 08:22 Pepcid PO 20 mg BID SYLVIA Administration Gabapentin 800 mg 02/09/18 18:57 02/10/18 06:00 Neurontin PO 800 mg TID SYLVIA Administration Heparin Sodium (Beef Lung) 30 - 50 unit 02/10/18 09:57 02/10/18 09:59 IVP 30 unit PRN PRN Administration Central Line Protocol (<24 hr) Sodium Chloride 1,000 mls @ 100 mls/hr 02/09/18 13:00 02/10/18 09:58 Normal Saline 0.9% IV 0 mls/hr .Q10H SYLVIA Infusion Piperacillin Sod/Tazobactam 100 mls @ 25 mls/hr 02/10/18 01:00 02/10/18 08:21 Sod 3.375 gm/ Sodium Chloride IV 25 mls/hr Q8H SYLVIA Administration Vancomycin HCl 1 gm/ Sodium 250 mls @ 167 mls/hr 02/10/18 10:00 02/10/18 09:57 Chloride IV 167 mls/hr Q8H SYLVIA Administration Insulin Aspart 1 - 9 unit 02/09/18 17:00 02/10/18 11:24 Novolog SUBQ Not Given 0800,1200,1700,2100 [facility] Protocol Insulin Glargine 30 unit 02/10/18 21:00 Lantus Solostar SUBQ QPM [facility] Ketorolac Tromethamine 30 mg 02/09/18 18:49 02/10/18 08:20 Toradol Inj (30mg) IVP 02/14/18 18:48 30 mg Q6HR PRN Administration PAIN Metoprolol Succinate 25 mg 02/10/18 11:00 Toprol Xl PO BID [facility] Ondansetron HCl 4 mg 02/09/18 12:50 Zofran Inj IVP Q6HR PRN Nausea / Vomiting Polyethylene Glycol 17 gm 02/10/18 09:00 02/10/18 08:21 Miralax PO 17 gm DAILY [facility] Administration Prochlorperazine Edisylate 10 mg 02/09/18 12:50 Compazine Inj IVP Q6HR PRN Nausea / Vomiting Sodium Chloride 10 ml 02/09/18 12:50 02/10/18 08:21 Normal Saline Flush 0.9% IVP 10 ml PRN PRN Administration NEEDED PER PROVIDER ORDERS Sodium Chloride 10 ml 02/09/18 17:00 02/10/18 08:21 Normal Saline Flush 0.9% IVP 10 ml 0100,0900,1700 [facility] Administration Tramadol HCl 50 mg 02/10/18 08:54 02/10/18 09:57 Ultram PO 50 mg Q4HR PRN Administration PAIN DULoxetine [Cymbalta] 20 mg PO DAILY 02/09/18 cloNIDine HCl [Clonidine HCl] 0.1 mg PO BID 02/09/18
[2018-02-10] MEDS: METOPROLOL SUCCINATE 25 MG TABLET PO SCH ×2 (11:54→21:02)
[2018-02-10] MEDS: ASPIRIN EC 81 MG TABLET PO SCH (12:07)
[2018-02-10] MEDS: DULoxetine 20 MG CAPSULE PO SCH (12:07)
[2018-02-10] MEDS ORDERED: ONDANSETRON ODT 4 MG TABLET TL SCH (16:36)
--- NOTE | 2018-02-10 17:15 | XRAY Report ---
Reason: Central line stitches out need to confirm placemen Procedure Date: 02/10/2018 Accession Number: [id number] / [id number] Procedure: XR - Chest 1 View X-Ray CPT Code: 34008 FULL RESULT: EXAM: CHEST RADIOGRAPHY. EXAM DATE: 02/10/2018 05:01 PM. CLINICAL HISTORY: Central line stitches out. Reassess central line placement. COMPARISON: Chest for line placement 02/06/2018 9:22 PM. TECHNIQUE: 1 view. FINDINGS: Lungs/Pleura: Normal lung volumes. New small opacities both lung bases, right greater than left. No effusion, vascular congestion, no pneumothorax. Mediastinum: Within exam limitations, the cardiomediastinal contour is normal. Other: Interval advancement of the right jugular line with the tip now in the inferior aspect of the right atrium. Previously, tip was at the cavoatrial junction. IMPRESSION: 1. Tip of the right jugular line now 3 cm inferior to the cavoatrial junction. 2. New small bibasilar infiltrates. RADIA
[2018-02-10] MEDS ORDERED: ONDANSETRON ODT 4 MG TABLET TL PRN (21:00)
[2018-02-10] MEDS: AMITRIPTYLINE 25 MG TABLET PO SCH (21:02)
[2018-02-10] MEDS: cloNIDine 0.1 MG TABLET PO SCH (21:02)
[2018-02-10] MEDS: CILOSTAZOL 100 MG TABLET PO SCH (21:02)
[2018-02-10] MEDS: INSULIN GLARGINE 300 UNIT/3 ML PEN SUBQ SCH (21:04)
[2018-02-11] MEDS: VANCOMYCIN INJ 1 GM in SODIUM CHLORIDE 0.9% 250 ML IV SCH ×3 (02:13→19:02)
[2018-02-11] MEDS: SODIUM CHLORIDE FLUSH 0.9% 10 ML SYRINGE IVP PRN ×5 (04:48→21:58)
[2018-02-11 05:17] LABS: BASOPHILS % (AUTO) 0.7 %; EOSINOPHILS # (AUTO) 0.1 10^3/uL (0.0-0.7); EOSINOPHILS % (AUTO) 2.8 %; HGB - HEMOGLOBIN 7.5 g/dL (12.0-16.0); LYMPHOCYTES # (AUTO) 2.7 10^3/uL (1.5-3.5); LYMPHOCYTES % (AUTO) 50.4 %; MEAN CORPUSCULAR HEMOGLOBIN 22.2 pg (27.0-31.0); MEAN CORPUSCULAR HGB CONC 29.9 g/dL (32.0-36.0); MEAN CORPUSCULAR VOLUME 74.4 fL (81.0-99.0); MEAN PLATELET VOLUME 6.7 fL (7.9-10.8); MONOCYTES # (AUTO) 0.3 10^3/uL (0.0-1.0); MONOCYTES % (AUTO) 5.7 %; NEUTROPHILS # (AUTO) 2.2 10^3/uL (1.5-6.6); NEUTROPHILS % (AUTO) 40.4 %; PLT - PLATELET COUNT 294 10^3/uL (130-450); RED BLOOD COUNT 3.39 10^6/uL (4.20-5.40); RED CELL DISTRIBUTION WIDTH 17.4 % (12.0-15.0); WHITE BLOOD COUNT 5.3 x10^3/uL (4.8-10.8)
[2018-02-11 05:32] LABS: ALBUMIN 2.4 g/dL (3.2-5.5); ALBUMIN/GLOBULIN RATIO 0.8 (1.0-2.2); ALKALINE PHOSPHATASE 150 IU/L (42-121); ALT ALANINE AMINOTRANSFERASE 36 IU/L (10-60); AST ASPARTATE AMINOTRANSFERASE 31 IU/L (10-42); BILIRUBIN,TOTAL 0.4 mg/dL (0.2-1.0); BUN - BLOOD UREA NITROGEN 18 mg/dL (6-20); CALCIUM 8.2 mg/dL (8.5-10.3); CARBON DIOXIDE - CO2 33 mmol/L (21-32); CHLORIDE 100 mmol/L (101-111); CREATININE 0.4 mg/dL (0.4-1.0); GFR - MDRD 181 (>89); GLUCOSE 81 mg/dL (70-100); MAGNESIUM 1.7 mg/dL (1.7-2.8); PHOSPHORUS 4.5 mg/dL (2.5-4.6); SODIUM 137 mmol/L (135-145); TOTAL PROTEIN 5.4 g/dL (6.7-8.2)
[2018-02-11 05:37] LABS: CRP - C-REACTIVE PROTEIN < 1.0 mg/dL (0-1.0)
[2018-02-11 05:41] LABS: VBG PH 7.366 (7.31-7.41)
[2018-02-11] MEDS: GABAPENTIN 400 MG CAPSULE PO SCH ×3 (06:14→21:36)
[2018-02-11] MEDS: SODIUM CHLORIDE 0.9% 1,000 ML IV SCH ×3 (06:14→19:05)
--- NOTE | 2018-02-11 06:53 | ANESTHESIA ---
Pre-Anesthesia VS, & Labs - Diagnosis R 3rd toe necrosis - Procedure R 3rd toe digit amputation Vital Signs: Temp Pulse Resp BP Pulse Ox 36.1 C L 106 H 18 130/75 93 02/10/18 23:47 02/10/18 23:47 02/10/18 23:47 02/10/18 23:47 02/10/18 23:47 Height 5 ft 3 in Weight (kg) 54.5 kg Body Mass Index 21.2 - NPO >8 hours - Is Patient ?: No (negative 02/06/18) - Lab Results Current Lab Results: Laboratory Tests 02/11/18 05:00: VBG pH 7.366, Ionized Calcium 1.13 L 02/11/18 05:00: Ionized Calcium YES, Sodium 137, Potassium 3.8, Chloride 100 L, Carbon Dioxide 33 H, Anion Gap 4.0 L, BUN 18, Creatinine 0.4, Estimated GFR (MDRD) 181, Glucose 81, Calcium 8.2 L, Phosphorus 4.5, Magnesium 1.7, Total Bilirubin 0.4, AST 31, ALT 36, Alkaline Phosphatase 150 H, C-Reactive Protein < 1.0, Total Protein 5.4 L, Albumin 2.4 L, Globulin 3.0, Albumin/Globulin Ratio 0.8 L 02/11/18 05:00: ESR 43 H 02/11/18 05:00: WBC 5.3, RBC 3.39 L, Hgb 7.5 L, Hct 25.3 L, MCV 74.4 L, MCH 22.2 L, MCHC 29.9 L, RDW 17.4 H, Plt Count 294, MPV 6.7 L, Neut # (Auto) 2.2, Lymph # (Auto) 2.7, Jenkins # (Auto) 0.3, Eos # (Auto) 0.1, Baso # (Auto) 0.0, Absolute Nucleated RBC 0.00, Nucleated RBC % 0.1 02/10/18 23:55: POC Whole Bld Glucose 222 H 02/10/18 20:35: POC Whole Bld Glucose 213 H 02/10/18 16:26: POC Whole Bld Glucose 245 H 02/10/18 11:13: POC Whole Bld Glucose 118 H 02/10/18 08:02: POC Whole Bld Glucose 229 H 02/10/18 05:49: POC Whole Bld Glucose 219 H 02/10/18 05:45: VBG pH 7.423 H, Ionized Calcium 1.02 L 02/10/18 05:45: Ionized Calcium YES, Sodium 137, Potassium 3.7, Chloride 97 L, Carbon Dioxide 27, Anion Gap 13.0, BUN 13, Creatinine 0.5, Estimated GFR (MDRD) 140, Glucose 242 H, Calcium 8.0 L, Phosphorus 4.3, Magnesium 1.6 L, Total Bilirubin 0.2, AST 71 H, ALT 51, Alkaline Phosphatase 165 H, C-Reactive Protein < 1.0, Total Protein 5.9 L, Albumin 2.7 L, Globulin 3.2, Albumin/Globulin Ratio 0.8 L 02/10/18 05:45: ESR 42 H 02/10/18 05:45: WBC 4.6 L, RBC 3.76 L, Hgb 8.5 L, Hct 28.2 L, MCV 75.1 L, MCH 22.7 L, MCHC 30.2 L, RDW 17.7 H, Plt Count 251, MPV 6.8 L, Neut # (Auto) 2.6, Lymph # (Auto) 1.7, Jenkins # (Auto) 0.3, Eos # (Auto) 0.0, Baso # (Auto) 0.0, Absolute Nucleated RBC 0.00, Nucleated RBC % 0.0 02/10/18 04:03: POC Whole Bld Glucose 94 02/10/18 03:43: POC Whole Bld Glucose 55 L* 02/10/18 03:25: POC Whole Bld Glucose 47 L* 02/09/18 20:28: POC Whole Bld Glucose 220 H Fish Bones: 02/11/18 05:00 02/11/18 05:00 Home Medications and Allergies Home Medications: Ambulatory Orders DULoxetine [Cymbalta] 20 mg PO DAILY 02/09/18 cloNIDine HCl [Clonidine HCl] 0.1 mg PO BID 02/09/18 Active Medications Acetaminophen (Tylenol) 650 mg PO Q4HR PRN PRN Reason: Pain 1 to 4 Last Admin: 02/10/18 21:55 Dose: 650 mg Amitriptyline HCl (Elavil) 25 mg PO HS SYLVIA Last Admin: 02/10/18 21:02 Dose: 25 mg Aspirin (Ecotrin) 81 mg PO DAILY [facility] Last Admin: 02/10/18 12:07 Dose: 81 mg Cilostazol (Pletal) 100 mg PO BID [facility] Last Admin: 02/10/18 21:02 Dose: 100 mg Clonidine HCl (Catapres) 0.1 mg PO BID [facility] Last Admin: 02/10/18 21:02 Dose: 0.1 mg Diltiazem HCl (Cardizem Cd) 120 mg PO DAILY [facility] Duloxetine HCl (Cymbalta) 20 mg PO DAILY [facility] Last Admin: 02/10/18 12:07 Dose: 20 mg Enoxaparin Sodium (Lovenox) 40 mg SUBQ DAILY [facility] Last Admin: 02/10/18 08:21 Dose: 40 mg Famotidine (Pepcid) 20 mg PO BID [facility] Last Admin: 02/10/18 21:02 Dose: 20 mg Gabapentin (Neurontin) 800 mg PO TID [facility] Last Admin: 02/11/18 06:14 Dose: Not Given Heparin Sodium (Beef Lung) () 30 - 50 unit IVP PRN PRN PRN Reason: Central Line Protocol (<24 hr) Last Admin: 02/11/18 04:49 Dose: 30 unit Sodium Chloride (Normal Saline 0.9%) 1,000 mls @ 100 mls/hr IV .Q10H [facility] Last Admin: 02/11/18 06:14 Dose: Not Given Piperacillin Sod/Tazobactam (Sod 3.375 gm/ Sodium Chloride) 100 mls @ 25 mls/hr IV Q8H [facility] Last Infusion: 02/11/18 03:59 Dose: Infused Vancomycin HCl 1 gm/ Sodium (Chloride) 250 mls @ 167 mls/hr IV Q8H [facility] Last Infusion: 02/11/18 03:49 Dose: Infused Insulin Aspart (Novolog) 1 - 9 unit SUBQ 0800,1200,1700,2100 [facility]; Protocol Last Admin: 02/10/18 21:05 Dose: 3 unit Insulin Glargine (Lantus Solostar) 30 unit SUBQ QPM [facility] Last Admin: 02/10/18 21:04 Dose: 30 unit Ketorolac Tromethamine (Toradol Inj (30mg)) 30 mg IVP Q6HR PRN PRN Reason: PAIN Stop: 02/14/18 18:48 Last Admin: 02/10/18 20:57 Dose: 30 mg Metoprolol Succinate (Toprol Xl) 25 mg PO BID [facility] Last Admin: 02/10/18 21:02 Dose: 25 mg Ondansetron HCl (Zofran Inj) 4 mg IVP Q6HR PRN PRN Reason: Nausea / Vomiting Ondansetron HCl (Zofran Odt) 4 mg TL Q4HR PRN PRN Reason: Nausea / Vomiting Polyethylene Glycol (Miralax) 17 gm PO DAILY [facility] Last Admin: 02/10/18 08:21 Dose: 17 gm Prochlorperazine Edisylate (Compazine Inj) 10 mg IVP Q6HR PRN PRN Reason: Nausea / Vomiting Sodium Chloride (Normal Saline Flush 0.9%) 10 ml IVP PRN PRN PRN Reason: NEEDED PER PROVIDER ORDERS Last Admin: 02/11/18 04:50 Dose: 10 ml Sodium Chloride (Normal Saline Flush 0.9%) 10 ml IVP 0100,0900,1700 [facility] Last Admin: 02/10/18 23:52 Dose: 10 ml Tramadol HCl (Ultram) 50 mg PO Q4HR PRN PRN Reason: PAIN Last Admin: 02/10/18 23:52 Dose: 50 mg DULoxetine [Cymbalta] 20 mg PO DAILY 02/09/18 cloNIDine HCl [Clonidine HCl] 0.1 mg PO BID 02/09/18 Allergies/Adverse Reactions: Allergies Allergy/AdvReac Type Severity Reaction Status Date / Time morphine Allergy Unknown Itching Verified 02/06/18 22:07 codeine Allergy Hives Verified 01/13/18 10:25 hydrocodone Allergy Hives Verified 01/13/18 10:25 adhesive tape AdvReac Unknown Verified 02/06/18 21:56 milk AdvReac Cramps Verified 01/13/18 10:25 nitrofurantoin AdvReac Headache Verified 01/13/18 10:25 [From Macrobid] Anes History & Medical History - Anesthetic History Anesthesia Complications: reports: No previous complications Family history of Anesthesia Complications: Denies Family history of Malignant Hyperthermia: Denies - Medical History Cardiovascular: reports: Hypertension, High cholesterol, Peripheral Vascular Disease, [place] Pulmonary: reports: None Gastrointestinal: reports: Pancreatitis Urinary: reports: Incontinence Neuro: reports: Peripheral neuropathy, Other Musculoskeletal: reports: Fibromyalgia Endocrine/Autoimmune: reports: Type 1 diabetes Blood Disorders: reports: None Skin: reports: None Smoking Status: Current every day smoker - Surgical History General: Cholecystectomy Eyes Ears Nose Throat (EENT): Tonsil/Adenoidectomy Urologic: Ureterolithotomy (stones) Exam General: Alert, Oriented x3, Cooperative Dental: Poor dentition Mouth Openin Fingerbreadth Neck Mobility: Normal Mallampati classification: II Respiratory: Normal breath sounds Cardiovascular: Regular rate Neurological: Normal speech Mental/Cognitive Status: Alert/Oriented X3, Normal for patient Cognitive Status: Within normal limits Plan Anesthesia Type: MAC (MAC/local) Consent for Procedure(s) Verified and Reviewed: Yes Code Status: Attempt Resuscitation ASA classification: 3-Severe systemic disease Is this case an emergency?: No
[2018-02-11] MEDS ORDERED: BUPIVACAINE 0.5% PF 30 ML VIAL ONE (07:33)
[2018-02-11] MEDS ORDERED: LIDOCAINE 1% 50 ML MDV ONE (07:34)
[2018-02-11] MEDS ORDERED: PROPOFOL 200 MG/20 ML VIAL IVP ONE (07:50)
[2018-02-11] MEDS ORDERED: MIDAZOLAM 2 MG/2 ML VIAL IVP ONE (07:50)
[2018-02-11] MEDS ORDERED: fentaNYL 100 MCG/2 ML VIAL IVP ONE (07:50)
[2018-02-11] MEDS ORDERED: BUPIVACAINE 0.5% PF 30 ML VIAL INFIL ONE ×2 (07:57)
[2018-02-11] MEDS ORDERED: LIDOCAINE 1% 50 ML MDV SUBQ ONE ×2 (07:58)
[2018-02-11] MEDS ORDERED: SODIUM CHLORIDE 0.9% 1,000 ML IV ONE ×2 (07:58→08:41)
[2018-02-11] MEDS: ENOXAPARIN 40 MG/0.4 ML SYRINGE SUBQ SCH (08:03)
--- NOTE | 2018-02-11 08:15 | OPERATIVE REPORT ---
Operative Report - General Admit Date: 02/09/18 Procedure Date: 02/11/18 Planned Procedure: right 3rd toe amputation Pre-Op Diagnosis: osteomyelitis right 3rd toe Procedure Performed: amputation right 3rd toe Post Op Diagnosis: same - Procedure Note Primary Surgeon: ace Anesthesia Provider: dillan Anesthesia Technique: MAC, Moderate sedation Estimated Blood Loss (mL): 2
--- NOTE | 2018-02-11 08:50 | PREOP HISTORY & PHYSICAL ---
DATE OF SERVICE: 02/11/2018 Physician: Noe Burns MD PREOPERATIVE DIAGNOSIS: Right third toe osteomyelitis. POSTOPERATIVE DIAGNOSIS: Right third toe osteomyelitis. PROCEDURE: Right third toe amputation at the level of the proximal phalanx. OPERATING SURGEON: Noe Burns M.D. ANESTHESIA: Deep sedation by Aristides Fry. INDICATIONS FOR SURGERY: Patient is a 37-year-old female well known to myself and the medical team w ith an unusual history of being admitted to this hospital, and then transferred [place] a higher [facility] [place] [facility] for testing and care, and then inexplicably being transferred back to this hospital to have her toe amputated, seemingly unreasonable, with the argument being at [place] that they needed to hav e the surgeon who had done her prior amputations work on her foot. The patient was brought back to t his hospital with no antibiotics being given and a purulent, swollen, right third toe with obvious in fection, and amputation was recommended. The patient's prior medical history and physical exam and s urgical history are documented in prior notes. My physical exam was very limited to the right foot, where the patient was noted to have an enlarged toe from the mid proximal phalanx to the tip with a d orsal scabbed over wound with purulent drainage that was fairly abundant and worse if the patient squ eezed on her toe. She had pain and, while I was evaluating her, she was begging and crying to have h er toe removed. Patient did not have streaking signs of cellulitis up her leg, nor did she have ej opathy at the groin. Her prior amputation sites on that foot were all completely healed and stable. IMPRESSION: The patient has osteomyelitis of her right third toe, and recommendation was that she un dergo amputation. The amputation was scheduled for 02/10, and [place] and the surgery had to be delayed until today. TD: 02/11/2018 08:32
[2018-02-11] MEDS: INSULIN ASPART 300 UNIT/3 ML PEN SUBQ SCH ×4 (08:55→20:55)
[2018-02-11] MEDS: SODIUM CHLORIDE FLUSH 0.9% 10 ML SYRINGE IVP SCH ×2 (08:56→18:06)
[2018-02-11] MEDS: POLYETHYLENE GLYCOL 3350 17 GM PACKET PO SCH (08:56)
--- NOTE | 2018-02-11 09:39 | OPERATIVE REPORT ---
DATE OF SERVICE: 02/11/2018 Physician: Noe Burns MD PREOPERATIVE DIAGNOSIS: Right third toe osteomyelitis. POSTOPERATIVE DIAGNOSIS: Right third toe osteomyelitis. PROCEDURE PERFORMED: Right third toe amputation. OPERATING SURGEON: Noe Burns MD ANESTHESIA PROVIDER: Aristides Fry CRNA; sedation and MAC anesthetic. INDICATIONS FOR SURGERY: Patient is a 37-year-old female with right third toe osteomyelitis, nonresp onsive to antibiotics. FINDINGS AT SURGERY: Patient had gross purulence from the end of her toe, cellulitis extended only t o the mid proximal phalanx. She did not have streaking up her leg or swelling. DESCRIPTION OF OPERATIVE PROCEDURE: Patient was taken to the operating room, given sedation, and her foot was sterilely prepped and draped in standard fashion. A surgical timeout was undertaken. Foll owing this, elliptical incisions were mapped with a marking pen at the base of the toe. The toe was then approached with sharp dissection at the proximal aspect of the toe, creating flaps for secondary repair. The amputation occurred in an area of clean tissue and noncellulitic tissue where no pus wa s encountered. The toe was grasped with a penetrating towel clamp. Sharp dissection was taken down to the phalanx, which was divided with a rongeur, and the toe removed and sent as a specimen. The un derlying wound was flushed and irrigated. The proximal phalanx was resected back to a small nub of b one without interrupting the metatarsophalangeal joint and the soft tissue flaps were arranged for cl osure and closed with interrupted 4-0 nylon suture with no tension and good alignment and appearance. Sterile dressings were applied. The patient was then taken to the recovery room in stable conditio n. ESTIMATED BLOOD LOSS: Minimal. COMPLICATIONS: None. COUNTS: Sponge and needle counts correct. TD: 02/11/2018 08:36
[2018-02-11] MEDS: METOPROLOL SUCCINATE 25 MG TABLET PO SCH ×2 (09:48→20:52)
[2018-02-11] MEDS: DULoxetine 20 MG CAPSULE PO SCH (09:48)
[2018-02-11] MEDS: cloNIDine 0.1 MG TABLET PO SCH ×2 (09:48→20:52)
[2018-02-11] MEDS: diltiaZEM CD 120 MG CAPSULE PO SCH (09:48)
[2018-02-11] MEDS: CILOSTAZOL 100 MG TABLET PO SCH ×2 (09:48→20:52)
[2018-02-11] MEDS: FAMOTIDINE 20 MG TABLET PO SCH ×2 (09:48→20:52)
[2018-02-11] MEDS: ASPIRIN EC 81 MG TABLET PO SCH (09:49)
[2018-02-11] MEDS: PIPERACILLIN/TAZOBACTAM 3.375 GM in SODIUM CHLORIDE 0.9% MINIBAG 100 ML IV SCH ×2 (09:49→17:43)
[2018-02-11] MEDS: KETOROLAC 30 MG/ML VIAL IVP PRN ×3 (09:53→21:58)
[2018-02-11 10:03] LABS: VANCOMYCIN,TROUGH 11.9 ug/mL (10.0-20.0)
[2018-02-11] MEDS: HYDROmorphone 2 MG TABLET PO PRN ×3 (10:19→21:56)
--- NOTE | 2018-02-11 12:22 | PROVIDER PROGRESS NOTE ---
Assessment/Plan - Problem List (1) Osteomyelitis Qualifiers: Osteomyelitis type: subacute Osteomyelitis location: foot Laterality: right Qualified Code(s): M86.271 - Subacute osteomyelitis, right ankle and foot Assessment/Plan: Fever with swelling, pain and pus from her right third toe while she was at [facility]. She underwent an MRI of the toe which revealed enhancing signal in that toe consistent with osteomyelitis. The patient was transferred back to [facility] for further treatment and possible amputation. Patient started on IV antibiotics with vancomycin and Zosyn day 2 Orthopedic surgery consulted and patient underwent amputation of the 3rd toe on her right foot this am She is POD #0 We will continue abx while she is hospitalized but will stop at discharge as the source of infection has been removed and she did not have bacteremia and no fevers or infectious signs right now. Pain control with tramadol, Tylenol, PO dilaudid and Toradol (2) Type 1 diabetes mellitus Qualifiers: Diabetes mellitus complication status: with circulatory complication Diabetes mellitus complication detail: with other circulatory complications Qualified Code(s): E10.59 - Type 1 diabetes mellitus with other circulatory complications Assessment/Plan: Patient's blood glucose was low this morning but is now elevated in the aftern oon Continue Lantus to 30 units nightly and add mealtime insulin Continue sliding scale insulin Continue diabetic diet Monitor blood glucose (3) Patient's noncompliance with other medical treatment and regimen Assessment/Plan: Patient was counseled on need for compliance especially after another toe amputation. She will need to follow-up with orthopedic surgery. She also needs to follow-up with her primary care physician and take her insulin as an outpa tient. Social work consulted (4) Polysubstance abuse Assessment/Plan: Patient counseled on need to stop using methamphetamine and other drugs. Patient allowed to have opioids during this hospitalization secondary to pain from osteomyelitis and amputation but will give her a limited quantity of pain medications at discharge. (5) Chronic pain Qualifiers: Chronic pain type: other chronic pain Qualified Code(s): G89.29 - Other chronic pain Assessment/Plan: As above patient has history of opioid abuse and therefore we will limit her opioids. But given that she is currently having severe pain from osteomyelitis of her third toe on the right foot. We will allow for tramadol and PO dialudid. - Current Meds Current Meds: Current Medications Generic Name Dose Route Start Last Admin Trade Name Freq PRN Reason Stop Dose Admin Acetaminophen 650 mg 02/09/18 12:50 02/10/18 21:55 Tylenol PO 650 mg Q4HR PRN Administration Pain 1 to 4 Amitriptyline HCl 25 mg 02/10/18 21:00 02/10/18 21:02 Elavil PO 25 mg HS SYLVIA Administration Aspirin 81 mg 02/10/18 11:00 02/11/18 09:49 Ecotrin PO 81 mg DAILY SYLVIA Administration Cilostazol 100 mg 02/10/18 21:00 02/11/18 09:48 Pletal PO 100 mg BID SYLVIA Administration Clonidine HCl 0.1 mg 02/10/18 21:00 02/11/18 09:48 Catapres PO 0.1 mg BID SYLVIA Administration Diltiazem HCl 120 mg 02/11/18 09:00 02/11/18 09:48 Cardizem Cd PO 120 mg DAILY SYLVIA Administration Duloxetine HCl 20 mg 02/10/18 11:00 02/11/18 09:48 Cymbalta PO 20 mg DAILY SYLVIA Administration Famotidine 20 mg 02/09/18 21:00 02/11/18 09:48 Pepcid PO 20 mg BID SYLVIA Administration Gabapentin 800 mg 02/09/18 18:57 02/11/18 06:14 Neurontin PO Not Given TID [facility] Heparin Sodium (Beef Lung) 30 - 50 unit 02/10/18 09:57 02/11/18 04:49 IVP 30 unit PRN PRN Administration Central Line Protocol (<24 hr) Hydromorphone HCl 2 mg 02/11/18 09:33 02/11/18 10:19 Dilaudid PO 2 mg Q6HR PRN Administration Severe Pain Sodium Chloride 1,000 mls @ 100 mls/hr 02/09/18 13:00 02/11/18 11:24 Normal Saline 0.9% IV 100 mls/hr .Q10H SYLVIA Administration Piperacillin Sod/Tazobactam 100 mls @ 25 mls/hr 02/10/18 01:00 02/11/18 09:49 Sod 3.375 gm/ Sodium Chloride IV 25 mls/hr Q8H SYLVIA Administration Vancomycin HCl 1 gm/ Sodium 250 mls @ 167 mls/hr 02/10/18 10:00 02/11/18 11:48 Chloride IV 167 mls/hr Q8H SYLVIA Administration Insulin Aspart 1 - 9 unit 02/09/18 17:00 02/11/18 11:53 Novolog SUBQ 9 unit 0800,1200,1700,2100 SYLVIA Administration Protocol Insulin Glargine 30 unit 02/10/18 21:00 02/10/18 21:04 Lantus Solostar SUBQ 30 unit QPM SYLVIA Administration Ketorolac Tromethamine 30 mg 02/09/18 18:49 02/11/18 09:53 Toradol Inj (30mg) IVP 02/14/18 18:48 30 mg Q6HR PRN Administration PAIN Metoprolol Succinate 25 mg 02/10/18 11:00 02/11/18 09:48 Toprol Xl PO 25 mg BID SYLVIA Administration Polyethylene Glycol 17 gm 02/10/18 09:00 02/11/18 08:56 Miralax PO Not Given DAILY SYLVIA Sodium Chloride 10 ml 02/09/18 12:50 02/11/18 04:50 Normal Saline Flush 0.9% IVP 10 ml PRN PRN Administration NEEDED PER PROVIDER ORDERS Sodium Chloride 10 ml 02/09/18 17:00 02/11/18 08:56 Normal Saline Flush 0.9% IVP Not Given 0100,0900,1700 SYLVIA Tramadol HCl 50 mg 02/10/18 08:54 02/10/18 23:52 Ultram PO 50 mg Q4HR PRN Administration PAIN - Lab Result Lab results reviewed: Yes Fish Bone Diagrams: 02/11/18 05:00 02/11/18 05:00 - Diagnostic Imaging Results Diagnostic Imaging Results: Final report reviewed - Additional Planning Condition/Complexity: Guarded My Orders: My Active Orders 02/10/18 21:00 Amitriptyline [Elavil] 25 mg PO HS Cilostazol [Pletal] 100 mg PO BID Insulin Glargine [Lantus Solostar] 30 unit SUBQ QPM Ondansetron Odt [Zofran Odt] 4 mg TL Q4HR PRN cloNIDine [Catapres] 0.1 mg PO BID 02/11/18 09:00 diltiaZEM CD [Cardizem Cd] 120 mg PO DAILY 02/11/18 17:00 Ferrous Sulfate [Feosol] 325 mg PO BIDWM 02/12/18 05:00 CBC - COMP BLD CT W/AUTO DIFF [HEME] DAILYLAB CMP, RFLX TO IONIZED CA IF [CHEM] DAILYLAB MAGNESIUM [CHEM] DAILYLAB PHOSPHORUS [CHEM] DAILYLAB 02/13/18 05:00 CBC - COMP BLD CT W/AUTO DIFF [HEME] DAILYLAB CMP, RFLX TO IONIZED CA IF [CHEM] DAILYLAB MAGNESIUM [CHEM] DAILYLAB PHOSPHORUS [CHEM] DAILYLAB 02/14/18 05:00 CBC - COMP BLD CT W/AUTO DIFF [HEME] DAILYLAB CMP, RFLX TO IONIZED CA IF [CHEM] DAILYLAB MAGNESIUM [CHEM] DAILYLAB PHOSPHORUS [CHEM] DAILYLAB 02/15/18 05:00 CBC - COMP BLD CT W/AUTO DIFF [HEME] DAILYLAB CMP, RFLX TO IONIZED CA IF [CHEM] DAILYLAB MAGNESIUM [CHEM] DAILYLAB PHOSPHORUS [CHEM] DAILYLAB Consult/Specialty: Other (Orthopedic Surgery) Plan Discussed with:: Patient Time Spent: 31-60 minutes Subjective - Subjective Patient Reports: Feeling Better, Resting Comfortably, Pain (Post op pain in the right foot) Nursing Reports: No Complaints Objective Vital Signs: Vital Signs - 24 hr 02/10/18 02/10/18 02/11/18 16:00 23:47 08:00 Temperature 36.1 C L 36.6 C Heart Rate Heart Rate [ 99 106 H Brachial] Respiratory 18 18 16 Rate Blood Pressure Blood Pressure 163/93 H 130/75 124/85 H [Right Brachial artery] O2 Saturation 96 93 02/11/18 02/11/18 02/11/18 08:14 08:22 08:25 Temperature 36.6 C Heart Rate 93 94 99 Heart Rate [ Brachial] Respiratory 20 18 18 Rate Blood Pressure 105/73 117/83 H 115/76 Blood Pressure [Right Brachial artery] O2 Saturation 97 97 96 02/11/18 02/11/18 02/11/18 08:30 08:35 08:42 Temperature 36.8 C Heart Rate 94 90 91 Heart Rate [ Brachial] Respiratory 17 13 15 Rate Blood Pressure 119/86 H 118/84 H 119/90 H Blood Pressure [Right Brachial artery] O2 Saturation 96 98 99 Oxygen O2 Source [Without Activity] Room air O2 Source Room air I&O (Last 24 Hrs): Intake and Output Totals x24h 02/09/18 02/10/18 02/11/18 23:59 23:59 23:59 Intake Total 737 4000.000 1590 Output Total 3700 750 Balance 737 300.000 840 General: Alert, Oriented x3, Cooperative, Mild distress (Pain), Other (Desheveled looking, looks much older than stated age) HEENT: Atraumatic, PERRLA, EOMI, Mucous membr. moist/pink Neck: Supple, No JVD, No thyromegaly, +2 carotid pulse wo bruit, No LAD Lymphatic: no adenopathy Neuro: Alert, Non Focal, CN 2-12 Grossly Intact, Oriented Times 3 Cardiovascular: Regular rate, Normal S1, Normal S2, No murmurs Respiratory: Chest non-tender, No respiratory distress, Breath sounds nml Abdomen: Normal bowel sounds, Soft, No tenderness, No hepatospenomegaly Extremities: No clubbing, No cyanosis, No edema, Normal pulses, Other (Right 3rd toe is post amputation and surgical site look clean and intact) Skin: No rashes, No breakdown - Results Results: Laboratory Results WBC 5.3 x10^3/uL (4.8-10.8) 02/11/18 05:00 RBC 3.39 10^6/uL (4.20-5.40) L 02/11/18 05:00 Hgb 7.5 g/dL (12.0-16.0) L 02/11/18 05:00 Hct 25.3 % (37.0-47.0) L 02/11/18 05:00 MCV 74.4 fL (81.0-99.0) L 02/11/18 05:00 MCH 22.2 pg (27.0-31.0) L 02/11/18 05:00 MCHC 29.9 g/dL (32.0-36.0) L 02/11/18 05:00 RDW 17.4 % (12.0-15.0) H 02/11/18 05:00 Plt Count 294 10^3/uL (130-450) 02/11/18 05:00 MPV 6.7 fL (7.9-10.8) L 02/11/18 05:00 Neut # (Auto) 2.2 10^3/uL (1.5-6.6) 02/11/18 05:00 Lymph # (Auto) 2.7 10^3/uL (1.5-3.5) 02/11/18 05:00 [facility] # (Auto) 0.3 10^3/uL (0.0-1.0) 02/11/18 05:00 Eos # (Auto) 0.1 10^3/uL (0.0-0.7) 02/11/18 05:00 Baso # (Auto) 0.0 10^3/uL (0.0-0.1) 02/11/18 05:00 Absolute Nucleated RBC 0.00 x10^3/uL 02/11/18 05:00 Nucleated RBC % 0.1 /100WBC 02/11/18 05:00 ESR 43 mm/Hr (0-20) H 02/11/18 05:00 VBG pH 7.366 (7.31-7.41) 02/11/18 05:00 Ionized Calcium 1.13 mmol/L (1.15-1.33) L 02/11/18 05:00 Sodium 137 mmol/L (135-145) 02/11/18 05:00 Potassium 3.8 mmol/L (3.5-5.0) 02/11/18 05:00 Chloride 100 mmol/L (101-111) L 02/11/18 05:00 Carbon Dioxide 33 mmol/L (21-32) H 02/11/18 05:00 Anion Gap 4.0 (6-13) L 02/11/18 05:00 BUN 18 mg/dL (6-20) 02/11/18 05:00 Creatinine 0.4 mg/dL (0.4-1.0) 02/11/18 05:00 Estimated GFR (MDRD) 181 (>89) 02/11/18 05:00 Glucose 81 mg/dL (70-100) 02/11/18 05:00 POC Whole Bld Glucose 338 mg/dL (70 - 100) H 02/11/18 11:41 Calcium 8.2 mg/dL (8.5-10.3) L 02/11/18 05:00 Ionized Calcium YES 02/11/18 05:00 Phosphorus 4.5 mg/dL (2.5-4.6) 02/11/18 05:00 Magnesium 1.7 mg/dL (1.7-2.8) 02/11/18 05:00 Total Bilirubin 0.4 mg/dL (0.2-1.0) 02/11/18 05:00 AST 31 IU/L (10-42) 02/11/18 05:00 ALT 36 IU/L (10-60) 02/11/18 05:00 Alkaline Phosphatase 150 IU/L (42-121) H 02/11/18 05:00 C-Reactive Protein < 1.0 mg/dL (0-1.0) 02/11/18 05:00 Total Protein 5.4 g/dL (6.7-8.2) L 02/11/18 05:00 Albumin 2.4 g/dL (3.2-5.5) L 02/11/18 05:00 Globulin 3.0 g/dL (2.1-4.2) 02/11/18 05:00 Albumin/Globulin Ratio 0.8 (1.0-2.2) L 02/11/18 05:00 Last Dose Date 02/11/18 02/11/18 09:35 Last Dose Time 03:49 02/11/18 09:35 Vancomycin Trough 11.9 ug/mL (10.0-20.0) 02/11/18 09:35 - Procedures Procedures: Procedures DETACHMENT AT LEFT 4TH TOE, LOW, OPEN APPROACH (06/30/17) DETACHMENT AT RIGHT 1ST TOE, LOW, OPEN APPROACH (03/14/17) DETACHMENT AT RIGHT 2ND TOE, HIGH, OPEN APPROACH (06/30/17) DETACHMENT AT RIGHT 4TH TOE, HIGH, OPEN APPROACH (06/30/17) DRAINAGE OF L LOW ARM SUBCU/FASCIA, OPEN APPROACH (12/30/17) DRAINAGE OF RIGHT AXILLA, OPEN APPROACH (12/30/17) INSERT INFUSION DEV IN R INT JUGULAR VEIN, PERC (02/06/18) INSERTION OF INFUSION DEV INTO R SUBCLAV VEIN, PERC APPROACH (03/14/17) INSERTION OF INFUSION DEV INTO SUP VENA CAVA, PERC APPROACH (01/24/18) INSERTION OF INFUSION DEVICE INTO LOWER VEIN, PERC APPROACH (08/13/17) INSERTION OF INFUSION DEVICE INTO R ATRIUM, PERC APPROACH (01/13/18) TRANSFUSE NONAUT RED BLOOD CELLS IN CENTRAL VEIN, PERC (12/01/17) TRANSFUSE NONAUT RED BLOOD CELLS IN PERIPH VEIN, PERC (01/22/17) ULTRASONOGRAPHY OF RIGHT JUGULAR VEINS, GUIDANCE (02/06/18) ABX Reporting Has patient been on IV antibiotics over the past 48 hours?: No Current Medications - Current Medications Current Medications: Active Medications Generic Name Dose Route Start Last Admin Trade Name Freq PRN Reason Stop Dose Admin Acetaminophen 650 mg 02/09/18 12:50 02/10/18 21:55 Tylenol PO 650 mg Q4HR PRN Administration Pain 1 to 4 Amitriptyline HCl 25 mg 02/10/18 21:00 02/10/18 21:02 Elavil PO 25 mg HS SYLVIA Administration Aspirin 81 mg 02/10/18 11:00 02/11/18 09:49 Ecotrin PO 81 mg DAILY SYLVIA Administration Cilostazol 100 mg 02/10/18 21:00 02/11/18 09:48 Pletal PO 100 mg BID SYLVIA Administration Clonidine HCl 0.1 mg 02/10/18 21:00 02/11/18 09:48 Catapres PO 0.1 mg BID SYLVIA Administration Diltiazem HCl 120 mg 02/11/18 09:00 02/11/18 09:48 Cardizem Cd PO 120 mg DAILY SYLVIA Administration Duloxetine HCl 20 mg 02/10/18 11:00 02/11/18 09:48 Cymbalta PO 20 mg DAILY SYLVIA Administration Famotidine 20 mg 02/09/18 21:00 02/11/18 09:48 Pepcid PO 20 mg BID SYLVIA Administration Ferrous Sulfate 325 mg 02/11/18 17:00 Feosol PO BIDWM SYLVIA Gabapentin 800 mg 02/09/18 18:57 02/11/18 06:14 Neurontin PO Not Given TID SY[facility] Heparin Sodium (Beef Lung) 30 - 50 unit 02/10/18 09:57 02/11/18 04:49 IVP 30 unit PRN PRN Administration Central Line Protocol (<24 hr) Hydromorphone HCl 2 mg 02/11/18 09:33 02/11/18 10:19 Dilaudid PO 2 mg Q6HR PRN Administration Severe Pain Sodium Chloride 1,000 mls @ 100 mls/hr 02/09/18 13:00 02/11/18 11:24 Normal Saline 0.9% IV 100 mls/hr .Q10H SYLVIA Administration Piperacillin Sod/Tazobactam 100 mls @ 25 mls/hr 02/10/18 01:00 02/11/18 09:49 Sod 3.375 gm/ Sodium Chloride IV 25 mls/hr Q8H [facility] Administration Vancomycin HCl 1 gm/ Sodium 250 mls @ 167 mls/hr 02/10/18 10:00 02/11/18 11:48 Chloride IV 167 mls/hr Q8H SYLVIA Administration Insulin Aspart 1 - 9 unit 02/09/18 17:00 02/11/18 11:53 Novolog SUBQ 9 unit 0800,1200,1700,2100 [facility] Administration Protocol Insulin Glargine 30 unit 02/10/18 21:00 02/10/18 21:04 Lantus Solostar SUBQ 30 unit QPM SYLVIA Administration Ketorolac Tromethamine 30 mg 02/09/18 18:49 02/11/18 09:53 Toradol Inj (30mg) IVP 02/14/18 18:48 30 mg Q6HR PRN Administration PAIN Metoprolol Succinate 25 mg 02/10/18 11:00 02/11/18 09:48 Toprol Xl PO 25 mg BID [facility] Administration Ondansetron HCl 4 mg 02/09/18 12:50 Zofran Inj IVP Q6HR PRN Nausea / Vomiting Ondansetron HCl 4 mg 02/10/18 21:00 Zofran Odt TL Q4HR PRN Nausea / Vomiting Polyethylene Glycol 17 gm 02/10/18 09:00 02/11/18 08:56 Miralax PO Not Given DAILY [facility] Prochlorperazine Edisylate 10 mg 02/09/18 12:50 Compazine Inj IVP Q6HR PRN Nausea / Vomiting Sodium Chloride 10 ml 02/09/18 12:50 02/11/18 04:50 Normal Saline Flush 0.9% IVP 10 ml PRN PRN Administration NEEDED PER PROVIDER ORDERS Sodium Chloride 10 ml 02/09/18 17:00 02/11/18 08:56 Normal Saline Flush 0.9% IVP Not Given 0100,0900,1700 [facility] Tramadol HCl 50 mg 02/10/18 08:54 02/10/18 23:52 Ultram PO 50 mg Q4HR PRN Administration PAIN DULoxetine [Cymbalta] 20 mg PO DAILY 02/09/18 cloNIDine HCl [Clonidine HCl] 0.1 mg PO BID 02/09/18
[2018-02-11] MEDS: traMADol 50 MG TABLET PO PRN ×2 (13:41→19:03)
[2018-02-11] MEDS: ACETAMINOPHEN 325 MG TABLET PO PRN ×2 (14:53→19:03)
[2018-02-11] MEDS: FERROUS SULFATE 325 MG TABLET PO SCH (17:43)
[2018-02-11] MEDS: AMITRIPTYLINE 25 MG TABLET PO SCH (20:52)
[2018-02-11] MEDS: INSULIN GLARGINE 300 UNIT/3 ML PEN SUBQ SCH (20:55)
[2018-02-12] MEDS ORDERED: SODIUM CHLORIDE 0.9% 500 ML IV PRN (01:07)
[2018-02-12] MEDS: SODIUM CHLORIDE FLUSH 0.9% 10 ML SYRINGE IVP SCH ×2 (01:10→08:36)
[2018-02-12] MEDS: PIPERACILLIN/TAZOBACTAM 3.375 GM in SODIUM CHLORIDE 0.9% MINIBAG 100 ML IV SCH ×2 (01:11→08:27)
[2018-02-12] MEDS: SODIUM CHLORIDE FLUSH 0.9% 10 ML SYRINGE IVP PRN ×5 (01:11→10:18)
[2018-02-12] MEDS: VANCOMYCIN INJ 1 GM in SODIUM CHLORIDE 0.9% 250 ML IV SCH ×2 (03:05→10:20)
[2018-02-12] MEDS: KETOROLAC 30 MG/ML VIAL IVP PRN ×2 (04:07→10:17)
[2018-02-12] MEDS: HYDROmorphone 2 MG TABLET PO PRN ×2 (04:07→10:17)
[2018-02-12 04:13] LABS: BASOPHILS % (AUTO) 0.7 %; EOSINOPHILS # (AUTO) 0.2 10^3/uL (0.0-0.7); EOSINOPHILS % (AUTO) 3.2 %; HGB - HEMOGLOBIN 8.1 g/dL (12.0-16.0); LYMPHOCYTES # (AUTO) 2.2 10^3/uL (1.5-3.5); LYMPHOCYTES % (AUTO) 32.5 %; MEAN CORPUSCULAR HGB CONC 32.8 g/dL (32.0-36.0); MEAN CORPUSCULAR VOLUME 73.1 fL (81.0-99.0); MEAN PLATELET VOLUME 6.2 fL (7.9-10.8); MONOCYTES # (AUTO) 0.4 10^3/uL (0.0-1.0); NEUTROPHILS # (AUTO) 3.9 10^3/uL (1.5-6.6); NEUTROPHILS % (AUTO) 57.6 %; PLT - PLATELET COUNT 339 10^3/uL (130-450); RED CELL DISTRIBUTION WIDTH 17.9 % (12.0-15.0); WHITE BLOOD COUNT 6.7 x10^3/uL (4.8-10.8)
[2018-02-12 05:02] LABS: ALBUMIN 2.5 g/dL (3.2-5.5); ALBUMIN/GLOBULIN RATIO 0.8 (1.0-2.2); ALKALINE PHOSPHATASE 132 IU/L (42-121); ALT ALANINE AMINOTRANSFERASE 30 IU/L (10-60); AST ASPARTATE AMINOTRANSFERASE 29 IU/L (10-42); BILIRUBIN,TOTAL 0.3 mg/dL (0.2-1.0); BUN - BLOOD UREA NITROGEN 19 mg/dL (6-20); CALCIUM 8.4 mg/dL (8.5-10.3); CARBON DIOXIDE - CO2 31 mmol/L (21-32); CHLORIDE 102 mmol/L (101-111); CREATININE 0.3 mg/dL (0.4-1.0); GFR - MDRD 252 (>89); GLUCOSE 54 mg/dL (70-100); MAGNESIUM 1.6 mg/dL (1.7-2.8); PHOSPHORUS 4.8 mg/dL (2.5-4.6); SODIUM 139 mmol/L (135-145); TOTAL PROTEIN 5.5 g/dL (6.7-8.2)
[2018-02-12] MEDS: SODIUM CHLORIDE 0.9% 1,000 ML IV SCH (06:25)
[2018-02-12] MEDS: GABAPENTIN 400 MG CAPSULE PO SCH ×2 (06:26→13:30)
[2018-02-12] MEDS ORDERED: MAGNESIUM OXIDE 400 MG TABLET PO SCH (08:00)
[2018-02-12] MEDS: ACETAMINOPHEN 325 MG TABLET PO PRN (08:30)
[2018-02-12] MEDS: traMADol 50 MG TABLET PO PRN (08:30)
[2018-02-12] MEDS: INSULIN ASPART 300 UNIT/3 ML PEN SUBQ SCH ×2 (08:32→12:11)
[2018-02-12 08:34] VITALS: BP 104/65
[2018-02-12] MEDS: FERROUS SULFATE 325 MG TABLET PO SCH (08:34)
[2018-02-12] MEDS: ASPIRIN EC 81 MG TABLET PO SCH (08:34)
[2018-02-12] MEDS: METOPROLOL SUCCINATE 25 MG TABLET PO SCH (08:35)
[2018-02-12] MEDS: CILOSTAZOL 100 MG TABLET PO SCH (08:35)
[2018-02-12] MEDS: DULoxetine 20 MG CAPSULE PO SCH (08:35)
[2018-02-12] MEDS: FAMOTIDINE 20 MG TABLET PO SCH (08:35)
[2018-02-12] MEDS: POLYETHYLENE GLYCOL 3350 17 GM PACKET PO SCH (08:36)
[2018-02-12] MEDS: cloNIDine 0.1 MG TABLET PO SCH (08:36)
[2018-02-12] MEDS: diltiaZEM CD 120 MG CAPSULE PO SCH (08:36)
--- NOTE | 2018-02-12 10:55 | Discharge Plan ---
Discharge Plan Disposition: Home, Self Care Condition: Fair Prescriptions: HYDROmorphone [Dilaudid] 2 mg PO Q6HR PRN #20 tablet PRN Reason: Severe Pain Insulin Aspart [NovoLOG] 15 unit SUBQ TIDWM #1 pen Insulin Glargine [Lantus Solostar] 40 unit SUBQ QPM #3 pen Syringe and Needle,Insulin,1Ml [Ultra Comfort] 1 each MC QID #60 disp.syrin Diet: Diabetic Activity Restrictions: Wt Bearing as Tolerated Shower Restrictions: No Driving Restrictions: No Assistance Devices: Cane Weight Bearing: Full Weight Additional Instructions or Follow Up instructions: You initially presented to the hospital with DKA but were found to have a fever. After further workup for the cause of your fever we found that you had an infected right third toe. You underwent an MRI on that toe at [facility]. The MRI showed that you had osteomyelitis of the toe. We started you on IV antibiotics and after seeing orthopedic surgery it was decided that you should have that toe amputated. You underwent amputation of the toe yesterday and are not showing any further signs of infection. He did not require any further antibiotics. Your foot has been put into a boot and the surgical wound has been dressed. You have been given medications for pain which should help you through the next week. You need to follow-up in the orthopedic clinic to see Dr. Burns. You should also follow-up with your primary care physician regarding your diabetes. I have prescribed you insulin which you can scrap picker at [facility] pharmacy. You are being discharged in stable condition. No Smoking: If you smoke, Please STOP! Call for help. Follow-up with: Noe Burns MD [Provider Admit Priv/Credential] -
--- NOTE | 2018-02-12 11:04 | DISCHARGE SUMMARY ---
"Discharge Summary Admit Date: 02/09/18 Discharge Date: 02/12/18 Discharging Provider: Mason Mathews MD Primary Care Provider: Paco Mercedes MD Code Status: Attempt Resuscitation Condition at Discharge: Fair Discharge Disposition: 01 Home, Self Care - DIAGNOSES Admission Diagnoses: 1. Osteomyelitis 2. Type 1 diabetes mellitus 3. Patient's noncompliance with other medical treatment and regimen 4. Polysubstance abuse 5. Chronic pain Discharge Diagnoses with Status of Each Condition: 1. Osteomyelitis status post right third toe amputation: Stable 2. Type 1 diabetes mellitus: Stable 3. Patient's noncompliance with other medical treatment and regimen: Guarded 4. Polysubstance abuse: Guarded 5. Chronic pain: Stable - HPI History of Present Illness: Patient is a 37-year-old female with a past medical history significant for insulin-dependent diabetes mellitus type 1 with recurrent episodes of diabetic ketoacidosis secondary to noncompliance with medication, methamphetamine abuse, personality disorder, bipolar, polysubstance abuse, ADHD, hypertension, sinus tachycardia, homelessness, fibromyalgia, chronic pain, osteomyelitis status post multiple toe amputations with 18 admissions so far in 2018 at [facility] along with multiple admissions at [facility] for diabetic ketoacidosis who was recently hospitalized here at [facility] on 02/06/2018 for diabetic ketoacidosis. She was treated for DKA which resolved while she was hospitalized and then was found to be febrile. Patient underwent an echocardiogram which showed a possible vegetation. For the vegetation she was transferred to [facility] for a transesophageal echocardiogram. At [facility] the patient underwent a tr ansesophageal echocardiogram for possible mitral vegetation but the workup was negative and patient had negative blood cultures. She had no further fevers while she was hospitalized at [facility]. Cardiology was consulted and KEEGAN was done which revealed no sign of endocarditis. Other possible sources of fever were considered in her right third toe appeared to have a chronic ulcer. The patient's right third toe was erythematous and appeared swollen and tender. The patient underwent an MRI which revealed an enhancing signal in the right third toe consistent with osteomyelitis. The patient reported that she had had multiple surgeries at [facility] and the patient was sent back to [facility] for possible further amputation. The patient was not started on antibiotics at [facility]. The patient was being treated at [facility] for diabetes mellitus type 1 for which she was receiving 40 units of Lantus nightly with pre-meal coverage and her sugars were well controlled. She also had per potassium and magnesium replaced while she was at [place]. The patient's diabetic neuropathy was treated with gabapentin and one-time dose of ketorolac. On presentation to [facility] the patient continued to complain of pain in her right third toe. She denied any fevers or chills. She was asking for pain medication. She stated that Toradol does not work for her and neither does Tylenol. She stated that she does not care when she gets but she wants something to help with the pain. She denied any changes in her appetite, nausea or vomiting. She denies any chest pain or shortness of breath. Patient denies any urinary urgency frequency or dysuria. Patient denies any abdominal pain. Patient denies any polyuria or polydipsia. She denies any headaches or focal neurologic deficits. - CONSULTS | PROCEDURES Consultations: Orthopedic Surgery Procedures: right 3rd toe amputation - HOSPITAL COURSE Hospital Course: Patient was admitted to the medical maza and found to have osteomyelitis of her third toe on the right foot. She also had surrounding cellulitis of the tissue over the foot. The patient was started on IV antibiotics with vancomycin and Zosyn. Orthopedic surgery was consulted and after discussion with the patient it was decided that the best course of action would be to amputate the third toe on the right foot. The patient was taken to the OR and amputation was perfor med. There were no postoperative complications and patient had no further fevers or elevation in her white blood cell count. The surrounding area of the surgical site did not appear to be infected. Since the source was removed for infection there was no need for further antibiotics post hospitalization. The patient was discharged home with oral pain medication to get her through the next week. The patient will need to follow-up with orthopedic surgery in the orthopedic clinic. The patient was given prescriptions for her insulin. - ALLERGIES Allergies/Adverse Reactions: Allergies Allergy/AdvReac Type Severity Reaction Status Date / Time morphine Allergy Unknown Itching Verified 02/06/18 22:07 codeine Allergy Hives Verified 01/13/18 10:25 hydrocodone Allergy Hives Verified 01/13/18 10:25 adhesive tape AdvReac Unknown Verified 02/06/18 21:56 milk AdvReac Cramps Verified 01/13/18 10:25 nitrofurantoin AdvReac Headache Verified 01/13/18 10:25 [From Macrobid] - MEDICATIONS Home Medications: Ambulatory Orders Medication Instructions Recorded Confirmed Amitriptyline [Elavil] 25 mg PO HS #20 tablet 01/06/18 02/09/18 Aspirin [Aspirin EC] 81 mg PO DAILY #30 tablet.dr 01/06/18 02/09/18 Cilostazol [Pletal] 100 mg PO BID #60 tablet 01/06/18 02/09/18 Ibuprofen [Motrin] 600 mg PO Q6HR PRN #60 tablet 01/06/18 02/10/18 Metoclopramide [Reglan] 10 mg PO ACHS #60 tablet 01/06/18 02/10/18 Metoprolol Succinate [Toprol Xl] 25 mg PO BID #60 tablet 01/06/18 02/10/18 diltiaZEM CD [Cardizem Cd] 120 mg PO DAILY #30 capsule 01/06/18 02/10/18 DULoxetine [Cymbalta] 20 mg PO DAILY 02/09/18 02/10/18 cloNIDine HCl [Clonidine HCl] 0.1 mg PO BID 02/09/18 02/09/18 HYDROmorphone [Dilaudid] 2 mg PO Q6HR PRN #20 tablet 02/12/18 Insulin Aspart [NovoLOG] 15 unit SUBQ TIDWM #1 pen 02/12/18 Insulin Glargine [Lantus Solostar] 40 unit SUBQ QPM #3 pen 02/12/18 Syringe and Needle,Insulin,1Ml 1 each MC QID #60 disp.syrin 02/12/18 [Ultra Comfort] - PHYSICAL EXAM AT DISCHARGE General Appearance: positive: No acute distress, Alert, Other (Looks much older than her age) Eyes Bilateral: positive: Normal inspection, PERRL, EOMI, No lid inflammation, Conjunctivae nml, No scleral icterus ENT: positive: ENT inspection nml, Pharynx nml, No signs of dehydration. negative: Purulent nasal drainage, Pharyngeal erythema, Oral lesions Neck: positive: Nml inspection, Thyroid nml, No JVD, Trachea midline. negative: Thyromegaly, Lymphadenopathy (R), Lymphadenopathy (L), Stiff neck, Carotid bruit, Tracheal deviation Respiratory: positive: Chest non-tender, No respiratory distress, Breath sounds nml. negative: Wheezes, Rales, Rhonchi Cardiovascular: positive: Regular rate & rhythm, No murmur, No gallop Peripheral Pulses: positive: 2+ Abdomen: positive: Non-tender, No organomegaly, Nml bowel sounds, No distention. negative: Guarding, Rebound, Hepatomegaly Back: positive: Nml inspection. negative: CVA tenderness (R), CVA tenderness (L) Skin: positive: Color nml, Warm, Other (3rd toe on the right foot has normal appearing surgical site incisions with no evidence for infection) Extremities: positive: Full ROM, Nml appearance, No pedal edema Neurologic/Psychiatric: positive: Oriented x3, CN's nml (2-12), Motor nml, Sensation nml, Mood/affect nml - LABS Result Diagrams: 02/12/18 04:00 02/12/18 04:00 Other Lab Results: Laboratory Results WBC 6.7 x10^3/uL (4.8-10.8) 02/12/18 04:00 RBC 3.40 10^6/uL (4.20-5.40) L 02/12/18 04:00 Hgb 8.1 g/dL (12.0-16.0) L 02/12/18 04:00 Hct 24.8 % (37.0-47.0) L 02/12/18 04:00 MCV 73.1 fL (81.0-99.0) L 02/12/18 04:00 MCH 24.0 pg (27.0-31.0) L 02/12/18 04:00 MCHC 32.8 g/dL (32.0-36.0) 02/12/18 04:00 RDW 17.9 % (12.0-15.0) H 02/12/18 04:00 Plt Count 339 10^3/uL (130-450) 02/12/18 04:00 MPV 6.2 fL (7.9-10.8) L 02/12/18 04:00 Neut # (Auto) 3.9 10^3/uL (1.5-6.6) 02/12/18 04:00 Lymph # (Auto) 2.2 10^3/uL (1.5-3.5) 02/12/18 04:00 [place] # (Auto) 0.4 10^3/uL (0.0-1.0) 02/12/18 04:00 Eos # (Auto) 0.2 10^3/uL (0.0-0.7) 02/12/18 04:00 Baso # (Auto) 0.0 10^3/uL (0.0-0.1) 02/12/18 04:00 Absolute Nucleated RBC 0.00 x10^3/uL 02/12/18 04:00 Nucleated RBC % 0.0 /100WBC 02/12/18 04:00 ESR 43 mm/Hr (0-20) H 02/11/18 05:00 VBG pH 7.366 (7.31-7.41) 02/11/18 05:00 Ionized Calcium 1.13 mmol/L (1.15-1.33) L 02/11/18 05:00 Sodium 139 mmol/L (135-145) 02/12/18 04:00 Potassium 3.7 mmol/L (3.5-5.0) 02/12/18 04:00 Chloride 102 mmol/L (101-111) 02/12/18 04:00 Carbon Dioxide 31 mmol/L (21-32) 02/12/18 04:00 Anion Gap 6.0 (6-13) 02/12/18 04:00 BUN 19 mg/dL (6-20) 02/12/18 04:00 Creatinine 0.3 mg/dL (0.4-1.0) L 02/12/18 04:00 Estimated GFR (MDRD) 252 (>89) 02/12/18 04:00 Glucose 54 mg/dL (70-100) L* 02/12/18 04:00 POC Whole Bld Glucose 155 mg/dL (70 - 100) H 02/12/18 11:24 Calcium 8.4 mg/dL (8.5-10.3) L 02/12/18 04:00 Ionized Calcium NO 02/12/18 04:00 Phosphorus 4.8 mg/dL (2.5-4.6) H 02/12/18 04:00 Magnesium 1.6 mg/dL (1.7-2.8) L 02/12/18 04:00 Total Bilirubin 0.3 mg/dL (0.2-1.0) 02/12/18 04:00 AST 29 IU/L (10-42) 02/12/18 04:00 ALT 30 IU/L (10-60) 02/12/18 04:00 Alkaline Phosphatase 132 IU/L (42-121) H 02/12/18 04:00 C-Reactive Protein < 1.0 mg/dL (0-1.0) 02/11/18 05:00 Total Protein 5.5 g/dL (6.7-8.2) L 02/12/18 04:00 Albumin 2.5 g/dL (3.2-5.5) L 02/12/18 04:00 Globulin 3.0 g/dL (2.1-4.2) 02/12/18 04:00 Albumin/Globulin Ratio 0.8 (1.0-2.2) L 02/12/18 04:00 Last Dose Date 02/11/18 02/11/18 09:35 Last Dose Time 03:49 02/11/18 09:35 Vancomycin Trough 11.9 ug/mL (10.0-20.0) 02/11/18 09:35 - DIAGNOSTIC IMAGING Diagnostic Imaging Results: Final report reviewed Diagnostic Imaging Results Comments: Chest x-ray Impression: 1. Tip of the right jugular line now 3 cm inferior to the cavoatrial junction. 2. New small bibasilar infiltrates. - FOLLOW UP Follow Up: Patient is being discharged home after amputation of the third toe on her right foot. The patient will follow up with orthopedic surgery as an outpatient. Patient was given medication for pain control. 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 - TIME SPENT Time Spent in Discharge (Minutes): 45"
== END 2018-02-12 13:45 | disposition home or self-care (01) | DRG 617 ==
LOC: MS2 18:10
PROVIDERS: ADMIT Internal Medicine; ATTEND Internal Medicine
PROC: 0Y6T0Z1 Detachment at Right 3rd Toe, High, Open Approach (ICD-10-PCS; principal; 2018-02-11 07:30)
DX: E10.69 Type 1 diabetes mellitus with other specified complication (principal); M86.271 Subacute osteomyelitis, right ankle and foot; L03.115 Cellulitis of right lower limb; E10.40 Type 1 diabetes mellitus with diabetic neuropathy, unspecified; E10.51 Type 1 diabetes mellitus with diabetic peripheral angiopathy without gangrene; E10.65 Type 1 diabetes mellitus with hyperglycemia; F11.10 Opioid abuse, uncomplicated; F15.10 Other stimulant abuse, uncomplicated; F19.10 Other psychoactive substance abuse, uncomplicated; G89.29 Other chronic pain; I10 Essential (primary) hypertension; R00.0 Tachycardia, unspecified; E78.00 Pure hypercholesterolemia, unspecified; F60.9 Personality disorder, unspecified; F31.9 Bipolar disorder, unspecified; F90.9 Attention-deficit hyperactivity disorder, unspecified type; F41.0 Panic disorder [episodic paroxysmal anxiety]; M79.7 Fibromyalgia; F17.210 Nicotine dependence, cigarettes, uncomplicated; R32 Unspecified urinary incontinence; Z59.0 Homelessness; Z91.19 Patient's noncompliance with other medical treatment and regimen; Z79.4 Long term (current) use of insulin; Z79.82 Long term (current) use of aspirin; Z79.891 Long term (current) use of opiate analgesic; Z79.899 Other long term (current) drug therapy; Z89.429 Acquired absence of other toe(s), unspecified side; Z87.19 Personal history of other diseases of the digestive system
CPT/HCPCS: 71045; 80053; 80202; 82330; 83735; 84100; 85025; 85651; 86140

== ENCOUNTER 2018-02-17 16:36 | Outpatient (CLI) | payer MEDICAID | END 2018-02-17 16:37 | disposition critical access hospital (66) | LOC: EMS 16:36 | PROVIDERS: ATTEND Surgery | DX: M79.674 Pain in right toe(s) (principal) | CPT/HCPCS: A0425; A0429; A0999 ==

== ENCOUNTER 2018-02-17 16:57 | Observation (INO) | payer MEDICAID ==
--- NOTE | 2018-02-17 17:08 | ED Physician Documentation ---
PD HPI LOWER EXT INJURY - Stated complaint Stated Complaint: Toe px - History obtained from History obtained from: Patient, EMS - History of Present Illness PD HPI LOW EXT INJURY LOCATION: Right (She was walking out of a restaurant about an hour ago and developed severe and extreme right foot pain without specific injury.) - Additional information Additional information: She has a makeup bag with her that has a syringe in it with a substance that is reddish, probably heroin or methamphetamines. 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 01/06/18 02/09/18 Cilostazol [Pletal] 100 mg PO BID #60 tablet 01/06/18 02/09/18 Ibuprofen [Motrin] 600 mg PO Q6HR PRN #60 tablet 01/06/18 02/10/18 Metoclopramide [Reglan] 10 mg PO ACHS #60 tablet 01/06/18 02/10/18 Metoprolol Succinate [Toprol Xl] 25 mg PO BID #60 tablet 01/06/18 02/10/18 diltiaZEM CD [Cardizem Cd] 120 mg PO DAILY #30 capsule 01/06/18 02/10/18 DULoxetine [Cymbalta] 20 mg PO DAILY 02/09/18 02/10/18 cloNIDine HCl [Clonidine HCl] 0.1 mg PO BID 02/09/18 02/09/18 HYDROmorphone [Dilaudid] 2 mg PO Q6HR PRN #20 tablet 02/12/18 Insulin Aspart [NovoLOG] 15 unit SUBQ TIDWM #1 pen 02/12/18 Insulin Glargine [Lantus Solostar] 40 unit SUBQ QPM #3 pen 02/12/18 Levofloxacin [Levaquin] 750 mg PO DAILY #7 tablet 02/12/18 Syringe and Needle,Insulin,1Ml 1 each MC QID #60 disp.syrin 02/12/18 [Ultra Comfort] - Allergies Allergies/Adverse Reactions: Allergies Allergy/AdvReac Type Severity Reaction Status Date / Time morphine Allergy Unknown Itching Verified 02/17/18 17:08 codeine Allergy Hives Verified 02/17/18 17:08 hydrocodone Allergy Hives Verified 02/17/18 17:08 adhesive tape AdvReac Unknown Verified 02/17/18 17:08 milk AdvReac Cramps Verified 02/17/18 17:08 nitrofurantoin AdvReac Headache Verified 02/17/18 17:08 [From Macrobid] - Social History Does the pt smoke?: Yes Smoking Status: Current every day smoker Does the pt drink ETOH?: No Does the pt have substance abuse?: Yes - Immunizations Immunizations are current?: Yes - POLST Patient has POLST: No POLST Status: Full Code PD ED PE NORMAL - Vitals Vital signs reviewed: Yes - General General: Alert and oriented X 3, Other (She is histrionic) - HEENT HEENT: PERRL (dilated) - Neck Neck: Supple, no meningeal sign, No bony TTP - Cardiac Cardiac: RRR, No murmur - Respiratory Respiratory: No respiratory distress, Clear bilaterally - Abdomen Abdomen: Normal bowel sounds, Soft, Non tender - Derm Derm: Normal color, Warm and dry - Extremities Extremities: Other (She is status post amputations of the middle 3 toes on the right foot with a suture line in the middle toe that is clean dry and intact and without evidence of infection.) - Neuro Neuro: Alert and oriented X 3, Normal speech Results - Vitals Vitals: Vital Signs - 24 hr 02/17/18 02/17/18 16:59 18:28 Temperature 35.4 C L 36.9 C Heart Rate 114 H 114 H Respiratory 20 20 Rate Blood Pressure 161/110 H 141/78 H O2 Saturation 100 97 Oxygen O2 Source [] Room air O2 Source Room air - Labs Labs: Laboratory Tests 02/17/18 02/17/18 02/17/18 17:35 19:40 19:40 WBC 4.9 RBC 3.77 L Hgb 8.9 L Hct 29.8 L MCV 79.0 L MCH 23.5 L MCHC 29.7 L RDW 18.1 H Plt Count 606 H MPV 6.8 L Neut # (Auto) 2.6 Lymph # (Auto) 2.0 [place] # (Auto) 0.2 Eos # (Auto) 0.0 Baso # (Auto) 0.0 Absolute Nucleated RBC 0.01 Nucleated RBC % 0.1 VBG pH VBG pCO2 VBG pO2 VBG HCO3 VBG Total CO2 VBG O2 Saturation VBG Base Excess Chloride 94 L Carbon Dioxide 21 BUN 17 Creatinine 0.6 Estimated GFR (MDRD) 113 Glucose 760 H* Calcium 9.0 Total Bilirubin 0.8 AST 36 ALT 68 H Alkaline Phosphatase 258 H Total Protein 7.9 Albumin 3.8 Globulin 4.1 Albumin/Globulin Ratio 0.9 L Lipase 25 Urine Color YELLOW Urine Clarity CLEAR Urine pH 6.0 Ur Specific [place] <=1.005 Urine Protein NEGATIVE Urine Glucose (UA) >=1000 H Urine Ketones TRACE Urine Occult Blood TRACE-INTA Urine Nitrite NEGATIVE Urine Bilirubin NEGATIVE Urine Urobilinogen 0.2 (NORMAL) Ur Leukocyte Esterase NEGATIVE Ur Microscopic Review NOT INDICATED Urine Culture Comments NOT INDICATED Urine HCG, Qual NEGATIVE Serum Ketones SMALL H 02/17/18 19:40 WBC RBC Hgb Hct MCV MCH MCHC RDW Plt Count MPV Neut # (Auto) Lymph # (Auto) [place] # (Auto) Eos # (Auto) Baso # (Auto) Absolute Nucleated RBC Nucleated RBC % VBG pH 7.546 H VBG pCO2 24.5 L VBG pO2 213.9 H VBG HCO3 20.8 L VBG Total CO2 21.5 L VBG O2 Saturation 99.2 H VBG Base Excess -0.8 Chloride Carbon Dioxide BUN Creatinine Estimated GFR (MDRD) Glucose Calcium Total Bilirubin AST ALT Alkaline Phosphatase Total Protein Albumin Globulin Albumin/Globulin Ratio Lipase Urine Color Urine Clarity Urine pH Ur Specific [place] Urine Protein Urine Glucose (UA) Urine Ketones Urine Occult Blood Urine Nitrite Urine Bilirubin Urine Urobilinogen Ur Leukocyte Esterase Ur Microscopic Review Urine Culture Comments Urine HCG, Qual Serum Ketones - Rads (name of study) R foot 3v Radiology: EMP read contemporaneously (New amputation of the proximal phalanx of the right third toe with a linear lucency suggesting fracture in the residual proximal shaft. There is a 4 mm linear metallic fragment in the soft tissues of the third toe which is old compared with x-ray of June 2017.) PD MEDICAL DECISION MAKING - ED course ED course: 37-year-old woman presents with acute right foot pain. Suture line looks fine. There is evidence of what looks like I think a needle in that toe, but review of old imaging shows that that is not a new phenomenon. It does not look cellulitic. Her blood sugar is uncontrolled with blood sugar 760. She is not in DKA. I personally placed a 22-gauge IV in a right neck external jugular vein through which we administered fluids, medications and insulin. Given the height of her blood sugar even without DKA she should spend the night in the hospital I spoke with Dr. Stout for admission at 8:21 PM. Departure - Departure Disposition: ED Place in Observation Clinical Impression: Drug abuse, Noncompliance, Homeless single person Type 1 diabetes mellitus Qualifiers: Diabetes mellitus complication status: with hyperglycemia Qualified Code(s): E10.65 - Type 1 diabetes mellitus with hyperglycemia Condition: Serious
[2018-02-17] MEDS ORDERED: HYDROmorphone 2 MG/ML VIAL IM STA (17:12)
[2018-02-17] MEDS ORDERED: LORazepam 2 MG/ML VIAL IVP STA (17:12)
[2018-02-17 17:44] LABS: BILIRUBIN,URINE NEGATIVE (NEGATIVE); GLUCOSE, URINE (UA) >=1000 mg/dL (NEGATIVE); KETONES,URINE (UA) TRACE mg/dL (NEGATIVE); LEUKOCYTE ESTERASE, URINE NEGATIVE (NEGATIVE); NITRITE,URINE NEGATIVE (NEGATIVE); OCCULT BLOOD,URINE TRACE-INTA (NEGATIVE); PROTEIN,URINE NEGATIVE (NEGATIVE); UROBILINOGEN,URINE 0.2 (NORMAL) E.U./dL (NORMAL)
[2018-02-17 17:45] LABS: CLARITY,URINE CLEAR (CLEAR)
[2018-02-17 17:47] LABS: HCG UR QUAL NEGATIVE
--- NOTE | 2018-02-17 18:22 | XRAY Report ---
Reason: foot pain Procedure Date: 02/17/2018 Accession Number: [id number] / [id number] Procedure: XR - Foot 3 View RT CPT Code: FULL RESULT: EXAM: RIGHT FOOT RADIOGRAPHY EXAM DATE: 02/17/2018 05:34 PM. CLINICAL HISTORY: Foot pain. COMPARISON: FOOT 2 VIEW BILAT 07/09/2017 4:18 PM. TECHNIQUE: 3 views. FINDINGS: Bones: Amputation of the right first distal phalanx, as before. Amputation at the right second proximal phalanx head, as before. New amputation at the proximal shaft of the proximal phalanx of the right third toe with a small linear lucency suggesting fracture line at the proximal shaft. Amputation at the base of the middle phalanx of the right fourth toe, as before. No lytic or sclerotic lesions Joints: Normal. No subluxations. Soft Tissues: No new soft tissue swelling is identified. There is a 4 mm linear metallic needle fragment obliquely oriented in the soft tissues of the amputated third toe 8 mm from the tip. IMPRESSION: 1. New (since June 2017) amputation at the proximal shaft of the proximal phalanx of the right third toe with a linear lucency suggesting a fracture in the residual proximal shaft. 2. 4 mm linear metallic needle fragment in the soft tissues of the amputated third toe 8 mm from the tip. 3. Partial amputations of first, second, and fourth toes, as before. RADIA
[2018-02-17] MEDS ORDERED: LIDOCAINE 2%-EPI 1:100000 20 ML MDV ONE (18:59)
[2018-02-17 19:57] LABS: EOSINOPHILS % (AUTO) 0.9 %; HGB - HEMOGLOBIN 8.9 g/dL (12.0-16.0); LYMPHOCYTES % (AUTO) 40.8 %; MEAN CORPUSCULAR HEMOGLOBIN 23.5 pg (27.0-31.0); MEAN CORPUSCULAR HGB CONC 29.7 g/dL (32.0-36.0); MEAN PLATELET VOLUME 6.8 fL (7.9-10.8); MONOCYTES # (AUTO) 0.2 10^3/uL (0.0-1.0); MONOCYTES % (AUTO) 4.9 %; NEUTROPHILS # (AUTO) 2.6 10^3/uL (1.5-6.6); NEUTROPHILS % (AUTO) 52.4 %; PLT - PLATELET COUNT 606 10^3/uL (130-450); RED BLOOD COUNT 3.77 10^6/uL (4.20-5.40); RED CELL DISTRIBUTION WIDTH 18.1 % (12.0-15.0); WHITE BLOOD COUNT 4.9 x10^3/uL (4.8-10.8)
[2018-02-17 20:03] LABS: VBG PH 7.546 (7.31-7.41)
[2018-02-17 20:05] LABS: VBG BASE EXCESS -0.8 mmol/L (-2 - +2); VBG PCO2 24.5 mmHg (41-51); VBG PO2 213.9 mmHg (25-47); VBG TOTAL CO2 21.5 mmol/L (24-29)
[2018-02-17 20:06] LABS: KETONES, SERUM (ACETEST) SMALL (NEGATIVE)
[2018-02-17] MEDS ORDERED: SODIUM CHLORIDE 0.9% 1,000 ML IV ONE (20:12)
[2018-02-17] MEDS ORDERED: INSULIN REGULAR HUMAN 100 UNIT/1 ML 10 ML MDV IVP STA (20:12)
[2018-02-17 20:15] LABS: ALBUMIN 3.8 g/dL (3.2-5.5); ALBUMIN/GLOBULIN RATIO 0.9 (1.0-2.2); ALKALINE PHOSPHATASE 258 IU/L (42-121); ALT ALANINE AMINOTRANSFERASE 68 IU/L (10-60); AST ASPARTATE AMINOTRANSFERASE 36 IU/L (10-42); BILIRUBIN,TOTAL 0.8 mg/dL (0.2-1.0); BUN - BLOOD UREA NITROGEN 17 mg/dL (6-20); CREATININE 0.6 mg/dL (0.4-1.0); GFR - MDRD 113 (>89); LIPASE 25 U/L (22-51); TOTAL PROTEIN 7.9 g/dL (6.7-8.2)
[2018-02-17 20:29] LABS: CARBON DIOXIDE - CO2 19 mmol/L (21-32); CHLORIDE 96 mmol/L (101-111); GLUCOSE 760 mg/dL (70-100); SODIUM 131 mmol/L (135-145)
[2018-02-17] MEDS ORDERED: ZOLPIDEM 5 MG TABLET PO PRN (20:37)
[2018-02-17] MEDS ORDERED: PROCHLORPERAZINE 10 MG/2 ML VIAL IVP PRN (20:37)
[2018-02-17] MEDS ORDERED: IBUPROFEN 600 MG TABLET PO PRN ×2 (20:37→20:43)
[2018-02-17] MEDS ORDERED: ONDANSETRON 4 MG/2 ML VIAL IVP PRN (20:37)
[2018-02-17] MEDS ORDERED: ACETAMINOPHEN 325 MG TABLET PO PRN (20:37)
[2018-02-17] MEDS ORDERED: SODIUM CHLORIDE FLUSH 0.9% 10 ML SYRINGE IVP PRN (20:37)
[2018-02-17] MEDS ORDERED: PROMETHAZINE 25 MG/1 ML VIAL IM PRN (20:37)
[2018-02-17] MEDS ORDERED: KETOROLAC 30 MG/ML VIAL IVP STA (20:42)
[2018-02-17] MEDS ORDERED: KETOROLAC 30 MG/ML VIAL IVP PRN (20:42)
[2018-02-17] MEDS ORDERED: SODIUM CHLORIDE 0.9% 1,000 ML IV SCH (21:00)
[2018-02-17] MEDS ORDERED: AMITRIPTYLINE 25 MG TABLET PO SCH (21:00)
[2018-02-17] MEDS ORDERED: LIDOCAINE OINTMENT 5% 35.44 GM TUBE TOP PRN (21:11)
[2018-02-17 21:13] LABS: MUDS CUTOFF CONCENTRATIONS CUTOFF CONC BELOW:
--- NOTE | 2018-02-17 21:22 | HISTORY & PHYSICAL EXAMINATION ---
Chief Complaint - Chief Complaint Chief Complaint: Right foot pain History of Present Illness - Admitted From Admitted From:: Emergency department - History Obtained From Records Reviewed: Emergency department records as well as most recent hospital stay, And some History obtained from: Patient and Dr. Gonzalez, ED physician Exam Limitations: None - History of Present Illness HPI Comment/Other: Patient is a 37-year-old female with a very complex and extensive medical history who appears much greater than her stated age, and has type 1 diabetes with frequent hospitalizations for DKA, with 18 admissions previously in 2018 at this facility and several others at [facility], who also has a history of osteomyelitis of both feet most recently diagnosed with right foot osteomyelitis earlier this month and is status post right third toe amputation secondary to osteomyelitis, discharged on oral antibiotics on February 12, 5 days ago. Patient presented to the emergency room today because she states that she was having dinner at a restaurant and when she got up to put weight on her foot she had sudden and severe pain that had not been present since her discharge from the hospital. She is visibly distraught in pain, and describes a severity of the pain greater than the initial pain that led to the diagnosis of osteomyelitis in the first place. She does state that she has been compliant with the oral antibiotics that she was given, which is 750 mg of Levaquin daily, and she has not yet had a scheduled follow-up visit with orthopedic surgery because it is only been 5 days since discharge from the surgery. She was taken to the hospital by EMS, and she states that because of the pain in her calling for help, she did not take the 20 units of insulin that her carb counting would have required after having dinner in the restaurant, and upon arrival to the emergency department she was found to be very hyperglycemic with a blood sugar over 700, but not quite into a diabetic Ketoacidosis, though she does have a slightly elevated anion gap of 16, she does have serum ketones, but has a pH of 7.5. In the emergency room and an x-ray of the right foot was performed which only demonstrated presence of a needle fragment that is present from previous x-rays, but no other abnormal findings other than the expected amputation. She was given IV fluids and insulin for the hyperglycemia, and we were called to admit the patient for blood sugar control to prevent diabetic ketoacidosis which is likely to be imminent given her very poor history of compliance and homeless social status. Also given the amount of pain that she is in, she will require inpatient management for further workup and treatment of this. History - Past Medical History Cardiovascular: reports: Hypertension, High cholesterol, Peripheral Vascular Disease, MT Respiratory: reports: None Neuro: reports: Peripheral neuropathy, Other Endocrine/Autoimmune: reports: Type 1 diabetes GI: reports: Pancreatitis [employer]: reports: None : reports: Incontinence HEENT: reports: None Psych: reports: Depression, Anxiety, Panic attacks Musculoskeletal: reports: Fibromyalgia, Other (Osteomyelitis most recently in the right foot with third toe amputation January 2018) Derm: reports: None MRSA Hx?: Yes - Past Surgical History General: reports: Cholecystectomy Ortho: reports: Amputation (Several amputations of toe, most recently right third toe in January 2018) HEENT: reports: Tonsil/Adenoidectomy - Family & Social History Family History: Father: , CAD, CVA/TIA, Hyperlipidemia, Hypertension, MT Social History Notes: The patient is homeless and lives in a tent. 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 The patient has 2 children who live with her stepmother as she has been unable to get her life together enough to be able to help raise them. She has been living on [facility] for the last 4 years prior to that she lived in [place]. She does smoke a few cigarettes a day denies any alcohol use. She does continue to use methamphetamine. - Substance History Use: Uses substance without health or social issues: NONE - POLST Patient has POLST: No POLST Status: Full Code Meds/Allgy - Home Medications Home Medications: Ambulatory Orders Medication Instructions Recorded Confirmed Amitriptyline [Elavil] 25 mg PO HS #20 tablet 01/06/18 02/09/18 Aspirin [Aspirin EC] 81 mg PO DAILY #30 tablet. 01/06/18 02/09/18 Cilostazol [Pletal] 100 mg PO BID #60 tablet 01/06/18 02/09/18 Ibuprofen [Motrin] 600 mg PO Q6HR PRN #60 tablet 01/06/18 02/10/18 Metoclopramide [Reglan] 10 mg PO ACHS #60 tablet 01/06/18 02/10/18 Metoprolol Succinate [Toprol Xl] 25 mg PO BID #60 tablet 01/06/18 02/10/18 diltiaZEM CD [Cardizem Cd] 120 mg PO DAILY #30 capsule 01/06/18 02/10/18 DULoxetine [Cymbalta] 20 mg PO DAILY 02/09/18 02/10/18 cloNIDine HCl [Clonidine HCl] 0.1 mg PO BID 02/09/18 02/09/18 HYDROmorphone [Dilaudid] 2 mg PO Q6HR PRN #20 tablet 02/12/18 Insulin Aspart [NovoLOG] 15 unit SUBQ TIDWM #1 pen 02/12/18 Insulin Glargine [Lantus Solostar] 40 unit SUBQ QPM #3 pen 02/12/18 Levofloxacin [Levaquin] 750 mg PO DAILY #7 tablet 02/12/18 Syringe and Needle,Insulin,1Ml 1 each MC QID #60 disp.syrin 02/12/18 [Ultra Comfort] - Allergies Allergies/Adverse Reactions: Allergies Allergy/AdvReac Type Severity Reaction Status Date / Time morphine Allergy Unknown Itching Verified 02/17/18 17:08 codeine Allergy Hives Verified 02/17/18 17:08 hydrocodone Allergy Hives Verified 02/17/18 17:08 adhesive tape AdvReac Unknown Verified 02/17/18 17:08 milk AdvReac Cramps Verified 02/17/18 17:08 nitrofurantoin AdvReac Headache Verified 02/17/18 17:08 [From Macrobid] Review of Systems - Constitutional Constitutional: denies: Fatigue, Fever, Chills, Malaise - Cardiovascular Cariovascular: denies: Chest pain - Respiratory Respiratory: denies: Cough, Sputum production, Wheezing - Musculoskeletal Musculoskeletal: reports: Joint pain, Joint swelling - All Other Systems All Other Systems: reports: Reviewed and negative Prior Level of Functionality: Patient is a very poor social status, is homeless, chronically incontinent urinary, and chronically noncompliant with diabetic medications and has ongoing drug abuse history most recently used yesterday. Exam - Vital Signs Reviewed Vital Signs: Yes Vital Signs: Vital Signs x48h Temp Pulse Resp BP Pulse Ox 02/17/18 20:28 36.7 C 114 H 20 133/112 H 100 02/17/18 18:28 36.9 C 114 H 20 141/78 H 97 02/17/18 16:59 35.4 C L 114 H 20 161/110 H 100 - Physical Exam General Appearance: positive: Moderate distress, Anxious Eyes Bilateral: positive: Normal inspection ENT: positive: ENT inspection nml Neck: positive: Nml inspection Respiratory: positive: Breath sounds nml Cardiovascular: positive: No gallop, Tachycardia, Systolic murmur Peripheral Pulses: positive: 2+ Abdomen: positive: Non-tender Skin: positive: Other (Skin of her right foot does not demonstrate evidence of infection. There are sutures at the MTP joint of the third toe on the right foot.There is minimal erythema at the area of the wound with sutures intact, no extension of erythema, induration, edema, or other signs of poor wound healing or infection. There is minimal or no tenderness on the plantar aspect of the distal forefoot, there is moderate to severe tenderness at the amputation site, and moderate tenderness on the dorsal aspect of the distal third metatarsal/forefoot. 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 On exam, there does not appear to be any obvious signs of persistent infection. However, the patient seems to be in quite a significant amount of pain which has an abrupt onset, and certainly does pose higher risk for complications given her poor compliance history, drug abuse history, and current homelessness. We will continue antibiotics, order ESR and CRP for a.m., and control pain with oral pain medications and as needed Toradol for now. Given her complex history, and fairly poor historian, would like to see how she does overnight prior to ordering an MRI and reconsulting with orthopedic surgery. Based on the overnight events if pain levels persist at the same level they are now, these may be necessary however if the pain does seem to subside, considering there is no obvious sign of infection at this point, and if the CRP and ESR do not suggest persistence of infection, we may be able to hold off and have the patient follow-up outpatient with orthopedic surgery. (2) Osteomyelitis of foot, right, acute Conclusion/Plan: See above, holding off on MRI and Orth O consult for now, will decide in the morning if MRI is necessary, though may be appropriate to just let orthopedic surgery now that she is here even if there is nothing surgical to be done at this point. In the meantime, continue the Levaquin as there does not appear to be objective evidence of treatment failure with this oral antibiotic. (3) Type 1 diabetes mellitus Conclusion/Plan: Patient is acutely hyperglycemic secondary to not taking her correctional insulin after her dinner. She is not in DKA, but she does have a slightly elevated anion gap and serum ketones, she has been given insulin in the emergency room, 8 units, and IV fluids. We will continue IV fluids, correctional insulin, resume her Lantus dose, and follow-up labs in the morning. Qualifiers: Diabetes mellitus complication status: with hyperglycemia Qualified Code(s): E10.65 - Type 1 diabetes mellitus with hyperglycemia (4) Bipolar 1 disorder with moderate antelmo Conclusion/Plan: Patient is behaving somewhat erratically though this is not that unusual for this patient who is very well-known to this service. It is unclear if she is responding to pain versus withdrawing from amphetamine or other substance, versus exacerbation of underlying bipolar disease. In the meantime, resume her home medications, and follow clinical course. (5) Borderline personality disorder Conclusion/Plan: As above (6) Chronic pain Conclusion/Plan: Patient has a polysubstance use history and typically we try as hard as possible to avoid narcotics when she is admitted however given her recent treatment with surgery with osteomyelitis, I do not think it is unreasonable for now to continue her oral medications as prescribed with p.o. Dilaudid, and I will add as needed Toradol in case anything further as needed for pain. Otherwise we will try to avoid any additional narcotics pending clinical course and pending need for surgery intervention. Qualifiers: Chronic pain type: other chronic pain Qualified Code(s): G89.29 - Other chronic pain (7) Coronary artery disease with history of myocardial infarction without history of CABG Conclusion/Plan: Patient is tachycardic, but this is chronic for this patient. There are no acute changes and will continue patient's home medication. (8) Methamphetamine abuse, episodic Conclusion/Plan: I have ordered a urine toxicology, patient admits to taking methamphetamine yesterday by smoking. She denies injecting; this is after I have informed her of the needle fragment in the right foot. (9) S/P amputation of foot Conclusion/Plan: As above, recent amputation. Will discuss with orthopedic surgery. 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 We will start with warm compress and perform serial exams as pain indicates. - Lab Results Lab results reviewed: Yes Fish Bones: 02/17/18 19:40 02/17/18 19:40 - Diagnostic Imaging Results Diagnostic Imaging Results: positive: Final report reviewed Core Measures - Anticipated LOS I expect patient to be DC'd or transferred within 96 hours.: Yes - DVT/VTE - Prophylaxis VTE/DVT Device ordered at admit?: Yes
[2018-02-17 21:33] LABS: AMPHETAMINE SCREEN,URINE POSITIVE (NEGATIVE); BENZODIAZEPINES SCREEN, URINE NEGATIVE (NEGATIVE); COCAINE SCREEN URINE NEGATIVE (NEGATIVE); METHADONE SCREEN, URINE NEGATIVE (NEGATIVE); METHAMPHETAMINES SCREEN, URINE POSITIVE (NEGATIVE); OPIATE SCREEN, URINE NEGATIVE (NEGATIVE); OXYCODONE SCREEN, URINE NEGATIVE (NEGATIVE); PROPOXYPHENE SCREEN, URINE NEGATIVE (NEGATIVE); TRICYCLIC ANTIDEPRESSANT,URINE NEGATIVE (NEGATIVE)
[2018-02-17] MEDS: HYDROmorphone 2 MG TABLET PO PRN (21:56)
[2018-02-17] MEDS: cloNIDine 0.1 MG TABLET PO SCH (22:36)
[2018-02-17] MEDS: METOPROLOL SUCCINATE 25 MG TABLET PO SCH (22:36)
[2018-02-17] MEDS: CILOSTAZOL 100 MG TABLET PO SCH (22:36)
[2018-02-17] MEDS: INSULIN ASPART 300 UNIT/3 ML PEN SUBQ SCH (22:53)
[2018-02-17] MEDS: INSULIN GLARGINE 300 UNIT/3 ML PEN SUBQ SCH (22:54)
[2018-02-18] MEDS ORDERED: SODIUM CHLORIDE FLUSH 0.9% 10 ML SYRINGE IVP SCH (01:00)
[2018-02-18] MEDS ORDERED: PANTOPRAZOLE 40 MG VIAL IVP SCH (07:00)
[2018-02-18 08:04] VITALS: BP 115/97
[2018-02-18] MEDS: HYDROmorphone 2 MG TABLET PO PRN (08:07)
[2018-02-18] MEDS: CILOSTAZOL 100 MG TABLET PO SCH (08:17)
[2018-02-18] MEDS: METOPROLOL SUCCINATE 25 MG TABLET PO SCH (08:18)
[2018-02-18] MEDS: cloNIDine 0.1 MG TABLET PO SCH (08:19)
[2018-02-18] MEDS: INSULIN ASPART 300 UNIT/3 ML PEN SUBQ SCH ×4 (08:24→11:24)
[2018-02-18] MEDS: INSULIN GLARGINE 300 UNIT/3 ML PEN SUBQ SCH (08:25)
[2018-02-18] MEDS ORDERED: diltiaZEM CD 120 MG CAPSULE PO SCH (09:00)
[2018-02-18] MEDS ORDERED: levoFLOXacin 250 MG TABLET PO SCH (09:00)
[2018-02-18] MEDS ORDERED: ASPIRIN EC 81 MG TABLET PO SCH (09:00)
[2018-02-18] MEDS ORDERED: DULoxetine 20 MG CAPSULE PO SCH (09:00)
[2018-02-18] MEDS ORDERED: POLYETHYLENE GLYCOL 3350 17 GM PACKET PO SCH (09:00)
[2018-02-18] MEDS ORDERED: ENOXAPARIN 40 MG/0.4 ML SYRINGE SUBQ SCH (09:00)
--- NOTE | 2018-02-18 10:40 | Discharge Plan ---
Discharge Plan Disposition: 01 Home, Self Care Condition: Fair Prescriptions: HYDROmorphone [Dilaudid] 2 mg PO Q6HR PRN #20 tablet PRN Reason: Severe Pain Diet: Diabetic Activity Restrictions: Activity as Tolerated Shower Restrictions: No Driving Restrictions: No Assistance Devices: Walker, Cane Weight Bearing: Full Weight Additional Instructions or Follow Up instructions: You presented to the emergency department due to pain in your foot. You were also found to have elevated blood sugars. We were placed in observation for monitoring of your blood sugars. Your blood sugars improved and you are not in DKA. You were found to have a hairline fracture in your foot and have been given pain medication while the fracture heals. There is no need for any surgical intervention at this time. It does not appear that the amputated toe is infected or that you have any other infection ongoing in your foot. Please continue take your insulin and be compliant with your medical care. Please refrain from using methamphetamines or other drugs. No Smoking: If you smoke, Please STOP! Call for help.
--- NOTE | 2018-02-18 12:09 | DISCHARGE SUMMARY ---
Discharge Summary Admit Date: 02/17/18 Discharge Date: 02/18/18 Discharging Provider: Mason Mathews MD Primary Care Provider: Paco Mercedes MD Code Status: Attempt Resuscitation Condition at Discharge: Fair Discharge Disposition: 01 Home, Self Care - DIAGNOSES Admission Diagnoses: 1. Acute pain of right foot 2. Ostium myelitis of foot, right, acute 3. Type 1 diabetes mellitus 4. Bipolar 1 disorder with moderate antelmo 5. Borderline personality disorder 6. Chronic pain 7. Coronary artery disease with history of myocardial infarction without hi story of CABG 8. Methamphetamine abuse, episodic 9. Status post amputation of foot 10. Skin sore Discharge Diagnoses with Status of Each Condition: 1. Foot fracture, right: Stable 2. Osteomyelitis of foot, right: Stable 3. Type 1 diabetes mellitus with hyperglycemia: Stable 4. Bipolar 1 disorder with moderate antelmo: Stable 5. Borderline personality disorder: Stable 6. Chronic pain: Stable 7. Methamphetamine abuse, episodic: Stable - HPI History of Present Illness: Patient is a 37-year-old female with a very complex and extensive medical history who appears much greater than her stated age, and has type 1 diabetes with frequent hospitalizations for DKA, with 18 admissions previously in 2018 at this facility and several others at [facility], who also has a history of osteomyelitis of both feet most recently diagnosed with right foot osteomyelitis earlier this month and is status post right third toe amputation secondary to osteomyelitis, discharged on oral antibiotics on February 12, 5 days ago. Patient presented to the emergency room today because she states that she was having dinner at a restaurant and when she got up to put weight on her foot she had sudden and severe pain that had not been present since her discharge from the hospital. She is visibly distraught in pain, and describes a severity of the pain greater than the initial pain that led to the diagnosis of osteomyelitis in the first place. She does state that she has been compliant with the oral antibiotics that she was given, which is 750 mg of Levaquin daily, and she has not yet had a scheduled follow-up visit with orthopedic surgery because it is only been 5 days since discharge from the surgery. She was taken to the hospital by EMS, and she states that because of the pain in her calling for help, she did not take the 20 units of insulin that her carb counting would have required after having dinner in the restaurant, and upon arrival to the emergency department she was found to be very hyperglycemic with a blood sugar over 700, but not quite into a diabetic Ketoacidosis, though she does have a slightly elevated anion gap of 16, she does have serum ketones, but has a pH of 7.5. In the emergency room and an x-ray of the right foot was performed which only demonstrated presence of a needle fragment that is present from previous x-rays, but no other abnormal findings other than the expected amputation. She was given IV fluids and insulin for the hyperglycemia, and we were called to admit the patient for blood sugar control to prevent diabetic ketoacidosis which is likely to be imminent given her very poor history of compliance and homeless social status. Also given the amount of pain that she is in, she will require inpatient management for further workup and treatment of this. - HOSPITAL COURSE Hospital Course: Patient came to the emergency department with right foot pain near the area where she had just recently had an amputation. The patient's x-ray of her right foot showed a linear lucency in the right third toe suggesting a fracture in the residual proximal shaft. There was also finding of a 4 mm linear metallic needle fragment in the soft tissues of the amputated third toe 8 mm from the tip. Both these findings were likely the cause of the patient's severe pain. The patient's pain was controlled with pain medications specifically hydro morphone. The patient was discharged home with 20 tablets of oral hydromorphone to continue to help alleviate this pain. The patient was also hyperglycemic on presentation but was not in diabetic ketoacidosis. The patient's blood glucose was monitored throughout the hospitalization and the patient was given her home dose of insulin with which her blood glucose remained stable. The patient was stable for discharge the following and was continued on her home patients. The patient was positive for methamphetamines and was counseled on the need to quit using methamphetamines. - ALLERGIES Allergies/Adverse Reactions: Allergies Allergy/AdvReac Type Severity Reaction Status Date / Time morphine Allergy Unknown Itching Verified 02/17/18 17:08 codeine Allergy Hives Verified 02/17/18 17:08 hydrocodone Allergy Hives Verified 02/17/18 17:08 adhesive tape AdvReac Unknown Verified 02/17/18 17:08 milk AdvReac Cramps Verified 02/17/18 17:08 nitrofurantoin AdvReac Headache Verified 02/17/18 17:08 [From Macrobid] - MEDICATIONS Home Medications: Ambulatory Orders Medication Instructions Recorded Confirmed Amitriptyline [Elavil] 25 mg PO HS #20 tablet 01/06/18 02/09/18 Aspirin [Aspirin EC] 81 mg PO DAILY #30 tablet. 01/06/18 02/09/18 Cilostazol [Pletal] 100 mg PO BID #60 tablet 01/06/18 02/09/18 Ibuprofen [Motrin] 600 mg PO Q6HR PRN #60 tablet 01/06/18 02/10/18 Metoclopramide [Reglan] 10 mg PO ACHS #60 tablet 01/06/18 02/10/18 Metoprolol Succinate [Toprol Xl] 25 mg PO BID #60 tablet 01/06/18 02/10/18 diltiaZEM CD [Cardizem Cd] 120 mg PO DAILY #30 capsule 01/06/18 02/10/18 DULoxetine [Cymbalta] 20 mg PO DAILY 02/09/18 02/10/18 cloNIDine HCl [Clonidine HCl] 0.1 mg PO BID 02/09/18 02/09/18 Insulin Aspart [NovoLOG] 15 unit SUBQ TIDWM #1 pen 02/12/18 Insulin Glargine [Lantus Solostar] 40 unit SUBQ QPM #3 pen 02/12/18 Levofloxacin [Levaquin] 750 mg PO DAILY #7 tablet 02/12/18 Syringe and Needle,Insulin,1Ml 1 each MC QID #60 disp.syrin 02/12/18 [Ultra Comfort] HYDROmorphone [Dilaudid] 2 mg PO Q6HR PRN #20 tablet 02/18/18 - PHYSICAL EXAM AT DISCHARGE General Appearance: positive: Alert, Other (Patient is sleepy and appears intoxicated) Eyes Bilateral: positive: Normal inspection, PERRL, EOMI, No lid inflammation, Conjunctivae nml, No scleral icterus ENT: positive: ENT inspection nml, Pharynx nml, No signs of dehydration. negative: Purulent nasal drainage, Pharyngeal erythema, Oral lesions Neck: positive: Nml inspection, Thyroid nml, No JVD, Trachea midline. negative: Thyromegaly, Lymphadenopathy (R), Lymphadenopathy (L), Stiff neck, Carotid bruit, Tracheal deviation Respiratory: positive: Chest non-tender, No respiratory distress, Breath sounds nml. negative: Wheezes, Rales, Rhonchi Cardiovascular: positive: No murmur, No gallop, Tachycardia Peripheral Pulses: positive: 2+ Abdomen: positive: Non-tender, No organomegaly, Nml bowel sounds, No distention. negative: Guarding, Rebound, Hepatomegaly Back: positive: Nml inspection. negative: CVA tenderness (R), CVA tenderness (L) Skin: positive: Color nml, No rash, Warm, Other (Right foot third toe appears to be healing without any signs of infection.) Extremities: positive: Non-tender, Pedal edema, Other (Right foot third toe does not appear to have skin changes suggestive of infection.) Neurologic/Psychiatric: positive: Oriented x3, CN's nml (2-12), Motor nml, Sensation nml, Mood/affect nml - LABS Result Diagrams: 02/17/18 19:40 02/17/18 19:40 Other Lab Results: Laboratory Tests 02/17/18 02/17/18 02/17/18 17:35 17:35 19:40 WBC 4.9 RBC 3.77 L Hgb 8.9 L Hct 29.8 L MCV 79.0 L MCH 23.5 L MCHC 29.7 L RDW 18.1 H Plt Count 606 H MPV 6.8 L Neut # (Auto) 2.6 Lymph # (Auto) 2.0 [place] # (Auto) 0.2 Eos # (Auto) 0.0 Baso # (Auto) 0.0 Absolute Nucleated RBC 0.01 Nucleated RBC % 0.1 ESR VBG pH VBG pCO2 VBG pO2 VBG HCO3 VBG Total CO2 VBG O2 Saturation VBG Base Excess Sodium Potassium Chloride Carbon Dioxide Anion Gap BUN Creatinine Estimated GFR (MDRD) Glucose POC Whole Bld Glucose Calcium Total Bilirubin AST ALT Alkaline Phosphatase C-Reactive Protein Total Protein Albumin Globulin Albumin/Globulin Ratio Lipase Urine Color YELLOW Urine Clarity CLEAR Urine pH 6.0 Ur Specific [place] <=1.005 Urine Protein NEGATIVE Urine Glucose (UA) >=1000 H Urine Ketones TRACE Urine Occult Blood TRACE-INTA Urine Nitrite NEGATIVE Urine Bilirubin NEGATIVE Urine Urobilinogen 0.2 (NORMAL) Ur Leukocyte Esterase NEGATIVE Ur Microscopic Review NOT INDICATED Urine Culture Comments NOT INDICATED Urine HCG, Qual NEGATIVE Urine Opiates Screen NEGATIVE Ur Oxycodone Screen NEGATIVE Urine Methadone Screen NEGATIVE Ur Propoxyphene Screen NEGATIVE Ur Barbiturates Screen NEGATIVE Ur Tricyclics Screen NEGATIVE Ur Phencyclidine Scrn NEGATIVE Ur Amphetamine Screen POSITIVE H U Methamphetamines Scrn POSITIVE H U Benzodiazepines Scrn NEGATIVE Urine Cocaine Screen NEGATIVE U Cannabinoids Screen NEGATIVE Serum Ketones 02/17/18 02/17/18 02/17/18 19:40 19:40 21:31 WBC RBC Hgb Hct MCV MCH MCHC RDW Plt Count MPV Neut # (Auto) Lymph # (Auto) [place] # (Auto) Eos # (Auto) Baso # (Auto) Absolute Nucleated RBC Nucleated RBC % ESR VBG pH 7.546 H VBG pCO2 24.5 L VBG pO2 213.9 H VBG HCO3 20.8 L VBG Total CO2 21.5 L VBG O2 Saturation 99.2 H VBG Base Excess -0.8 Sodium 131 L Potassium 3.9 Chloride 96 L Carbon Dioxide 19 L Anion Gap 16.0 H BUN 17 Creatinine 0.6 Estimated GFR (MDRD) 113 Glucose 760 H* POC Whole Bld Glucose 563 H* Calcium 9.0 Total Bilirubin 0.8 AST 36 ALT 68 H Alkaline Phosphatase 258 H C-Reactive Protein Total Protein 7.9 Albumin 3.8 Globulin 4.1 Albumin/Globulin Ratio 0.9 L Lipase 25 Urine Color Urine Clarity Urine pH Ur Specific [place] Urine Protein Urine Glucose (UA) Urine Ketones Urine Occult Blood Urine Nitrite Urine Bilirubin Urine Urobilinogen Ur Leukocyte Esterase Ur Microscopic Review Urine Culture Comments Urine HCG, Qual Urine Opiates Screen Ur Oxycodone Screen Urine Methadone Screen Ur Propoxyphene Screen Ur Barbiturates Screen Ur Tricyclics Screen Ur Phencyclidine Scrn Ur Amphetamine Screen U Methamphetamines Scrn U Benzodiazepines Scrn Urine Cocaine Screen U Cannabinoids Screen Serum Ketones SMALL H 02/17/18 02/18/18 02/18/18 22:44 06:10 06:10 WBC RBC Hgb Hct MCV MCH MCHC RDW Plt Count MPV Neut # (Auto) Lymph # (Auto) [place] # (Auto) Eos # (Auto) Baso # (Auto) Absolute Nucleated RBC Nucleated RBC % ESR 46 H VBG pH VBG pCO2 VBG pO2 VBG HCO3 VBG Total CO2 VBG O2 Saturation VBG Base Excess Sodium Potassium Chloride Carbon Dioxide Anion Gap BUN Creatinine Estimated GFR (MDRD) Glucose POC Whole Bld Glucose 500 H* Calcium Total Bilirubin AST ALT Alkaline Phosphatase C-Reactive Protein < 1.0 Total Protein Albumin Globulin Albumin/Globulin Ratio Lipase Urine Color Urine Clarity Urine pH Ur Specific [place] Urine Protein Urine Glucose (UA) Urine Ketones Urine Occult Blood Urine Nitrite Urine Bilirubin Urine Urobilinogen Ur Leukocyte Esterase Ur Microscopic Review Urine Culture Comments Urine HCG, Qual Urine Opiates Screen Ur Oxycodone Screen Urine Methadone Screen Ur Propoxyphene Screen Ur Barbiturates Screen Ur Tricyclics Screen Ur Phencyclidine Scrn Ur Amphetamine Screen U Methamphetamines Scrn U Benzodiazepines Scrn Urine Cocaine Screen U Cannabinoids Screen Serum Ketones 02/18/18 02/18/18 02/18/18 08:00 09:16 11:16 WBC RBC Hgb Hct MCV MCH MCHC RDW Plt Count MPV Neut # (Auto) Lymph # (Auto) [place] # (Auto) Eos # (Auto) Baso # (Auto) Absolute Nucleated RBC Nucleated RBC % ESR VBG pH VBG pCO2 VBG pO2 VBG HCO3 VBG Total CO2 VBG O2 Saturation VBG Base Excess Sodium Potassium Chloride Carbon Dioxide Anion Gap BUN Creatinine Estimated GFR (MDRD) Glucose POC Whole Bld Glucose 183 H 268 H 283 H Calcium Total Bilirubin AST ALT Alkaline Phosphatase C-Reactive Protein Total Protein Albumin Globulin Albumin/Globulin Ratio Lipase Urine Color Urine Clarity Urine pH Ur Specific [place] Urine Protein Urine Glucose (UA) Urine Ketones Urine Occult Blood Urine Nitrite Urine Bilirubin Urine Urobilinogen Ur Leukocyte Esterase Ur Microscopic Review Urine Culture Comments Urine HCG, Qual Urine Opiates Screen Ur Oxycodone Screen Urine Methadone Screen Ur Propoxyphene Screen Ur Barbiturates Screen Ur Tricyclics Screen Ur Phencyclidine Scrn Ur Amphetamine Screen U Methamphetamines Scrn U Benzodiazepines Scrn Urine Cocaine Screen U Cannabinoids Screen Serum Ketones - DIAGNOSTIC IMAGING Diagnostic Imaging Results: Final report reviewed Diagnostic Imaging Results Comments: X-ray right foot Impression: 1. New amputation at the proximal shaft of the proximal phalanx of the right third toe with a linear lucency suggesting a fracture in the residual proximal shaft. 2. 4 mm linear metallic needle fragment in the soft tissues of the amputated third toe 8 mm from the hip. 3. Partial amputations of first, second and fourth toes as before. - FOLLOW UP Follow Up: The patient was discharged home in stable condition. She was given a prescription for hydromorphone 20 tablets as she did have finding of fracture in the residual part of the amputated third toe on the right foot. The patient will follow up with orthopedics as was previously recommended to the patient indicates that her pain continues to worsen. There is a needle fragment in that amputated right third toe which may need intervention if the pain continues but we will defer this to orthopedic surgery. The patient's blood glucose was well-controlled and she was instructed to continue on her home dose of insulin. The patient was also counseled on the need to quit methamphetamine use. - TIME SPENT Time Spent in Discharge (Minutes): 40
== END 2018-02-18 13:09 | disposition home or self-care (01) ==
LOC: EDUNIT# → ED 16:57 → MS3 20:37 → OBS 21:26
PROVIDERS: ADMIT Family Medicine Sports Medicine; ATTEND Internal Medicine
DX: M84.477A Pathological fracture, right toe(s), initial encounter for fracture (principal); M79.5 Residual foreign body in soft tissue; E10.69 Type 1 diabetes mellitus with other specified complication; M86.171 Other acute osteomyelitis, right ankle and foot; E10.65 Type 1 diabetes mellitus with hyperglycemia; T38.3X6A Underdosing of insulin and oral hypoglycemic [antidiabetic] drugs, initial encounter; F15.10 Other stimulant abuse, uncomplicated; F31.9 Bipolar disorder, unspecified; F60.3 Borderline personality disorder; G89.29 Other chronic pain; L02.411 Cutaneous abscess of right axilla; I10 Essential (primary) hypertension; E10.42 Type 1 diabetes mellitus with diabetic polyneuropathy; E10.51 Type 1 diabetes mellitus with diabetic peripheral angiopathy without gangrene; M79.7 Fibromyalgia; I25.2 Old myocardial infarction; F17.210 Nicotine dependence, cigarettes, uncomplicated; Z89.421 Acquired absence of other right toe(s); Z59.0 Homelessness; I25.10 Atherosclerotic heart disease of native coronary artery without angina pectoris; Z18.10 Retained metal fragments, unspecified; Z86.14 Personal history of Methicillin resistant Staphylococcus aureus infection; Z91.14 Patient's other noncompliance with medication regimen; Z79.899 Other long term (current) drug therapy
CPT/HCPCS: 36415; 73630; 80053; 80306; 81003; 81025; 82009; 82803; 83690; 85025; 85651; 86140; 96372; 96374; 96375; 99284; 99285; A9270; G0378; J1170; J1650; J1815; J2060; 81001; 87086

== ENCOUNTER 2018-02-28 14:23 | Outpatient (CLI) | payer MEDICAID | END 2018-02-28 14:24 | disposition critical access hospital (66) | LOC: EMS 14:23 | PROVIDERS: ATTEND Surgery | DX: R46.4 Slowness and poor responsiveness (principal) | CPT/HCPCS: A0425; A0427; A0999 ==

== ENCOUNTER 2018-02-28 14:42 | Inpatient (IN) | payer MEDICAID ==
[~2018-02-28 14:42] MED LIST: INSULIN ASPART 300 UNIT/3 ML PEN SUBQ ONE
[2018-02-28] MEDS ORDERED: SODIUM CHLORIDE 0.9% 1,000 ML IV ONE (14:59)
[2018-02-28] MEDS ORDERED: INSULIN REGULAR HUMAN 100 UNIT in SODIUM CHLORIDE 0.9% 100ML 99 ML IV SCH (15:00)
--- NOTE | 2018-02-28 15:01 | ED Physician Documentation ---
History of Present Illness - Stated complaint Stated Complaint: DKA - History obtained from History obtained from: EMS - History of Present Illness Timing: Today (Calling for help in the bushes. She is a well-known homeless diabetic who has drug abuse problems and noncompliance. She is obtunded on my evaluation and no history is available from her. 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 : Incontinence HEENT: None Psych: Depression, Anxiety, Panic attacks Musculoskeletal: Fibromyalgia, Other (Osteomyelitis most recently in the right foot with third toe amputation January 2018) Derm: None - Past Surgical History Past Surgical History: Yes General: Cholecystectomy Ortho: Amputation (Several amputations of toe, most recently right third toe in January 2018) HEENT: Tonsil/Adenoidectomy - Present Medications Home Medications: Ambulatory Orders Medication Instructions Recorded Confirmed RX: Amitriptyline [Elavil] 25 mg PO HS #20 tablet 01/06/18 02/28/18 RX: Aspirin [Aspirin EC] 81 mg PO DAILY #30 tablet. 01/06/18 02/28/18 RX: Cilostazol [Pletal] 100 mg PO BID #60 tablet 01/06/18 02/28/18 RX: Ibuprofen [Motrin] 600 mg PO Q6HR PRN #60 tablet 01/06/18 02/28/18 RX: Metoclopramide [Reglan] 10 mg PO ACHS #60 tablet 01/06/18 02/28/18 RX: Metoprolol Succinate [Toprol 25 mg PO BID #60 tablet 01/06/18 02/28/18 Xl] RX: diltiaZEM CD [Cardizem Cd] 120 mg PO DAILY #30 capsule 01/06/18 02/28/18 RX: DULoxetine [Cymbalta] 20 mg PO DAILY 02/09/18 02/28/18 RX: cloNIDine HCl [Clonidine HCl] 0.1 mg PO BID 02/09/18 02/28/18 RX: Insulin Aspart [NovoLOG] 15 unit SUBQ TIDWM #1 pen 02/12/18 02/28/18 RX: Insulin Glargine [Lantus 40 unit SUBQ QPM #3 pen 02/12/18 02/28/18 Solostar] - Allergies Allergies/Adverse Reactions: Allergies Allergy/AdvReac Type Severity Reaction Status Date / Time morphine Allergy Unknown Itching Verified 02/17/18 17:08 codeine Allergy Hives Verified 02/17/18 17:08 hydrocodone Allergy Hives Verified 02/17/18 17:08 adhesive tape AdvReac Unknown Verified 02/17/18 17:08 milk AdvReac Cramps Verified 02/17/18 17:08 nitrofurantoin AdvReac Headache Verified 02/17/18 17:08 [From Macrobid] - Social History Does the pt smoke?: Yes Smoking Status: Current every day smoker Does the pt drink ETOH?: No Does the pt have substance abuse?: Yes - Immunizations Immunizations are current?: Yes - POLST Patient has POLST: No POLST Status: Full Code PD ED PE NORMAL - Vitals Vital signs reviewed: Yes - General General: Other (She is unresponsive with [place] respirations. She feels very cold) - HEENT HEENT: PERRL, Other (Dilated pupils) - Neck Neck: Supple, no meningeal sign, No bony TTP - Cardiac Cardiac: RRR, No murmur - Respiratory Respiratory: Other (Slightly fast and deep respirations with clear lungs) - Abdomen Abdomen: Non tender - Back Back: No CVA TTP, No spinal TTP - Derm Derm: Normal color, Warm and dry - Extremities Extremities: Other (No obvious active infection in the feet) - Neuro Eye Opening: To Pain Motor: Localizes to Pain Verbal: Inappropriate GCS Score: 10 Results - Vitals Vitals: Vital Signs - 24 hr 02/28/18 02/28/18 15:08 15:30 Temperature 98.2 C H Heart Rate 63 66 Respiratory 22 18 Rate Blood Pressure 159/114 H 144/77 H O2 Saturation 100 100 Oxygen O2 Source [Without Activity] Room air O2 Source Room air - Labs Labs: Laboratory Tests 02/28/18 02/28/18 02/28/18 15:15 15:15 15:15 WBC 17.0 H RBC 4.74 Hgb 10.2 L Hct 40.7 MCV 85.9 MCH 21.5 L MCHC 25.0 L RDW 18.2 H Plt Count 632 H MPV 9.1 Neut # (Auto) Not Reportable Lymph # (Auto) Not Reportable [place] # (Auto) Not Reportable Eos # (Auto) Not Reportable Baso # (Auto) Not Reportable Absolute Nucleated RBC Not Reportable Total Counted 100 [place] Ne[place] % (Manual) 4 Reactive Lymphs % (Man) 3 Abnorm Lymph % (Manual) 0 Metamyelocytes % 2 H Nucleated RBC % Not Reportable Neutrophils # (Manual) 11.2 H Lymphocytes # (Manual) 4.6 H Monocytes # (Manual) 0.5 Eosinophils # (Manual) 0.0 Basophils # (Manual) 0.3 H Differential Comment MANUAL DIFFERENTIAL Manual Slide Review Indicated Platelet Estimate INCREASED (>450,000) Platelet Morphology 1+ LARGE PLATELETS RBC Morph Micro Appear 1+ SPHEROCYTES VBG pH VBG pCO2 VBG pO2 VBG HCO3 VBG Total CO2 VBG O2 Saturation VBG Base Excess Sodium 123 L Potassium 5.3 H Chloride 82 L Carbon Dioxide < 6 L* Anion Gap 35.0 H BUN 47 H Creatinine 1.4 H Estimated GFR (MDRD) 43 L Glucose 877 H* Glycated Hemoglobin Estim Average Glucose Calcium 8.4 L Phosphorus 10.3 H Magnesium 3.2 H Total Bilirubin 1.8 H AST 2529 H ALT 354 H Alkaline Phosphatase 282 H Total Creatine Kinase 47 CK-MB (CK-2) 3.3 Troponin I < 0.04 Total Protein 8.4 H Albumin 4.1 Globulin 4.3 H Albumin/Globulin Ratio 1.0 Lipase 21 L Acetaminophen Ethyl Alcohol 6.1 Serum Ketones SMALL H 02/28/18 02/28/18 02/28/18 15:15 15:15 15:15 WBC RBC Hgb Hct MCV MCH MCHC RDW Plt Count MPV Neut # (Auto) Lymph # (Auto) [place] # (Auto) Eos # (Auto) Baso # (Auto) Absolute Nucleated RBC Total Counted [place] % (Manual) Reactive Lymphs % (Man) Abnorm Lymph % (Manual) Metamyelocytes % Nucleated RBC % Neutrophils # (Manual) Lymphocytes # (Manual) Monocytes # (Manual) Eosinophils # (Manual) Basophils # (Manual) Differential Comment Manual Slide Review Platelet Estimate Platelet Morphology RBC Morph Micro Appear VBG pH 6.777 L VBG pCO2 13.4 L VBG pO2 102.7 H VBG HCO3 1.9 L VBG Total CO2 2.3 L VBG O2 Saturation 92.5 H VBG Base Excess -31.8 L Sodium Potassium Chloride Carbon Dioxide Anion Gap BUN Creatinine Estimated GFR (MDRD) Glucose Glycated Hemoglobin 10.5 H Estim Average Glucose 255 H Calcium Phosphorus Magnesium Total Bilirubin AST ALT Alkaline Phosphatase Total Creatine Kinase CK-MB (CK-2) Troponin I Total Protein Albumin Globulin Albumin/Globulin Ratio Lipase Acetaminophen < 10 L Ethyl Alcohol Serum Ketones PD MEDICAL DECISION MAKING - ED course ED course: 37-year-old woman brought in from the field with recurrent DKA. She is almost comatose here which is corroborated by her pH. The abnormal liver function is new. She had a 20-gauge IV in the right AC which was working well on arrival and I ordered IV fluids, insulin drip. Spoke with Dr. Sandhu for admission. Departure - Departure Disposition: 66 [facility] DC/Xfer Clinical Impression: Transaminitis, Psychiatric disorder, Drug abuse DKA, type 1 Qualifiers: Diabetes mellitus complication detail: without coma Qualified Code(s): E10.10 - Type 1 diabetes mellitus with ketoacidosis without coma Condition: Serious Discharge Date/Time: 02/28/18 16:31
[2018-02-28] MEDS ORDERED: LORazepam 2 MG/ML VIAL IVP STA (15:25)
[2018-02-28 15:27] LABS: VBG PCO2 13.4 mmHg (41-51); VBG PH 6.777 (7.31-7.41); VBG PO2 102.7 mmHg (25-47); VBG TOTAL CO2 2.3 mmol/L (24-29)
[2018-02-28 15:28] LABS: VBG BASE EXCESS -31.8 mmol/L (-2 - +2)
[2018-02-28 15:32] LABS: BASOPHILS % (AUTO) 0.6 %; EOSINOPHILS % (AUTO) 0.1 %; HGB - HEMOGLOBIN 10.2 g/dL (12.0-16.0); LYMPHOCYTES % (AUTO) 24.7 %; MEAN CORPUSCULAR HEMOGLOBIN 21.5 pg (27.0-31.0); MEAN CORPUSCULAR VOLUME 85.9 fL (81.0-99.0); MEAN PLATELET VOLUME 9.1 fL (7.9-10.8); NEUTROPHILS % (AUTO) 70.6 %; PLT - PLATELET COUNT 632 10^3/uL (130-450); RED BLOOD COUNT 4.74 10^6/uL (4.20-5.40); RED CELL DISTRIBUTION WIDTH 18.2 % (12.0-15.0)
[2018-02-28 15:41] LABS: TROPONIN I < 0.04 ng/mL (<0.49)
[2018-02-28 15:43] LABS: ALBUMIN 4.1 g/dL (3.2-5.5); ALKALINE PHOSPHATASE 282 IU/L (42-121); ALT ALANINE AMINOTRANSFERASE 354 IU/L (10-60); AST ASPARTATE AMINOTRANSFERASE 2529 IU/L (10-42); BILIRUBIN,TOTAL 1.8 mg/dL (0.2-1.0); BUN - BLOOD UREA NITROGEN 47 mg/dL (6-20); CALCIUM 8.4 mg/dL (8.5-10.3); CHLORIDE 82 mmol/L (101-111); CK- CREATINE KINASE 47 IU/L (22-269); CREATINE KINASE MB 3.3 ng/mL (0.6-6.3); CREATININE 1.4 mg/dL (0.4-1.0); GFR - MDRD 43 (>89); KETONES, SERUM (ACETEST) SMALL (NEGATIVE); LIPASE 21 U/L (22-51); MAGNESIUM 3.2 mg/dL (1.7-2.8); PHOSPHORUS 10.3 mg/dL (2.5-4.6); SODIUM 123 mmol/L (135-145); TOTAL PROTEIN 8.4 g/dL (6.7-8.2)
[2018-02-28 15:44] LABS: CARBON DIOXIDE - CO2 < 6 mmol/L (21-32)
[2018-02-28 15:45] LABS: GLUCOSE 877 mg/dL (70-100)
[2018-02-28] MEDS: ELECTROLYTE-A SOLUTION 1,000 ML IV SCH ×2 (15:47→20:27)
[2018-02-28] MEDS ORDERED: ONDANSETRON ODT 4 MG TABLET TL PRN (15:49)
[2018-02-28] MEDS ORDERED: ACETAMINOPHEN 325 MG TABLET PO PRN (15:49)
[2018-02-28] MEDS ORDERED: ONDANSETRON 4 MG/2 ML VIAL IVP PRN (15:49)
[2018-02-28] MEDS ORDERED: PANTOPRAZOLE 40 MG TABLET PO SCH (16:00)
--- NOTE | 2018-02-28 16:05 | HISTORY & PHYSICAL EXAMINATION ---
History of Present Illness - Admitted From Admitted From:: Homeless/ER - History Obtained From Records Reviewed: [facility] History obtained from: Dr. Blakely Exam Limitations: Patient is obtunded - History of Present Illness HPI Comment/Other: Ms. Calero is well-known to our service. She has multiple admissions for DKA, hypothermia, methamphetamine overdose. Today she was found in some bushes, calling out for help. She is homeless. With her last observation stay February 18, she was discharged. Refused to leave the premises and when we found her she was in a bathroom smoking methamph etamines. She was brought to the emergency room with by EMS. Dr. Blakely found her to be obtunded, normal temperature, normal pulse, mildly hypertensive with a blood pressure of 159/114. 100% room air sat. She is hyponatremic, hyperkalemic, mild acute kidney injury, glucose 877. Carbon dioxide level is less than 6. She has newly elevated liver enzymes at AST 2529. ALT 354. Venous blood gas shows to be acidotic at 6.77 with a bicarb 1.9. CBC has an elevated white cell count of 17. Ketones are small amount of ketones. Ethyl alcohol is 6.1. She is now admitted to the ICU for insulin drip, aggressive hydration. History - Past Medical History Cardiovascular: reports: Hypertension, High cholesterol, Peripheral Vascular Disease, [place] Respiratory: reports: None Neuro: reports: Peripheral neuropathy, Other Endocrine/Autoimmune: reports: Type 1 diabetes GI: reports: Pancreatitis DAIRY CLERK: reports: None : reports: Incontinence HEENT: reports: None Psych: reports: Depression, Anxiety, Panic attacks Musculoskeletal: reports: Fibromyalgia, Other (Osteomyelitis most recently in the right foot with third toe amputation January 2018) Derm: reports: None MRSA Hx?: Yes - Past Surgical History General: reports: Cholecystectomy Ortho: reports: Amputation (Several amputations of toe, most recently right third toe in January 2018) HEENT: reports: Tonsil/Adenoidectomy - Family & Social History Family History: Father: , CAD, CVA/TIA, Hyperlipidemia, Hypertension, [place] Social History Notes: The patient is homeless and lives in a tent. 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 The patient has 2 children who live with her stepmother as she has been unable to get her life together enough to be able to help raise them. She has been living on [facility] for the last 4 years prior to that she lived in [place]. She does smoke a few cigarettes a day denies any alcohol use. She does continue to use methamphetamine. - Substance History Use: Uses substance without health or social issues: NONE - POLST Patient has POLST: No POLST Status: Full Code Meds/Allgy - Home Medications Home Medications: Ambulatory Orders Medication Instructions Recorded Confirmed Amitriptyline [Elavil] 25 mg PO HS #20 tablet 01/06/18 02/28/18 Aspirin [Aspirin EC] 81 mg PO DAILY #30 tablet. 01/06/18 02/28/18 Cilostazol [Pletal] 100 mg PO BID #60 tablet 01/06/18 02/28/18 Ibuprofen [Motrin] 600 mg PO Q6HR PRN #60 tablet 01/06/18 02/28/18 Metoclopramide [Reglan] 10 mg PO ACHS #60 tablet 01/06/18 02/28/18 Metoprolol Succinate [Toprol Xl] 25 mg PO BID #60 tablet 01/06/18 02/28/18 diltiaZEM CD [Cardizem Cd] 120 mg PO DAILY #30 capsule 01/06/18 02/28/18 DULoxetine [Cymbalta] 20 mg PO DAILY 02/09/18 02/28/18 cloNIDine HCl [Clonidine HCl] 0.1 mg PO BID 02/09/18 02/28/18 Insulin Aspart [NovoLOG] 15 unit SUBQ TIDWM #1 pen 02/12/18 02/28/18 Insulin Glargine [Lantus Solostar] 40 unit SUBQ QPM #3 pen 02/12/18 02/28/18 - Allergies Allergies/Adverse Reactions: Allergies Allergy/AdvReac Type Severity Reaction Status Date / Time morphine Allergy Unknown Itching Verified 02/17/18 17:08 codeine Allergy Hives Verified 02/17/18 17:08 hydrocodone Allergy Hives Verified 02/17/18 17:08 adhesive tape AdvReac Unknown Verified 02/17/18 17:08 milk AdvReac Cramps Verified 02/17/18 17:08 nitrofurantoin AdvReac Headache Verified 02/17/18 17:08 [From Macrobid] Review of Systems - Other Findings Other Findings: Unable to obtain in this lethargic obtunded female Prior Level of Functionality: She is homeless. But ambulatory. She says in the past that she is able to dress herself and feed herself. Occasionally ends up in shelters. Usually kicked out because of substance abuse. At this time unclear if that status is changed and she is unconscious. Exam - Vital Signs Reviewed Vital Signs: Yes Vital Signs: Vital Signs x48h Temp Pulse Resp BP Pulse Ox 02/28/18 15:08 98.2 C H 63 22 159/114 H 100 - Physical Exam General Appearance: positive: Lethargic, Other (Responsive to pain and slightly to voice but really nonverbal. Disheveled, malodorous white female who looks older than stated age.) Eyes Bilateral: positive: PERRL (But sluggish.) ENT: positive: Dry mucous membranes, Other (Partially loss of teeth, bad dental caries was left,) Neck: positive: No JVD. negative: Stiff neck, Carotid bruit Respiratory: positive: Chest non-tender, Other (Slight tachypnea t but no use of accessory muscles). negative: Wheezes, Rales, Rhonchi Cardiovascular: positive: Regular rate & rhythm, Tachycardia, Systolic murmur. negative: Gallop/S4, Friction rub Peripheral Pulses: positive: 0 Abdomen: positive: Nml bowel sounds, No distention. negative: Guarding, Rebound Skin: positive: Warm, Dry Extremities: positive: Other (Partial amputations of toes of both feet. Sutures are still present in the right foot where her last amputation occurred.There is no open ulcers, oozing, or infection) Neurologic/Psychiatric: positive: Other (Obtunded, responsive to some pain and voice. But nonverbal.) Reflexes: Bicep (R): 1+, Bicep (L): 1+, Knee (R): 0, Knee (L): 0, Ankle (R): 0, Ankle (L): 0 Conclusion/Plan - Problem List (1) Acidosis due to type 1 diabetes mellitus Conclusion/Plan: Main metabolic derangement due to her DKA. She will be placed in ICU. DKA p rotocol. I have ordered 3 L of IV fluids, started on insulin drip. However, there is been a delay in care. She had a 22-gauge from the emergency room was not which was infiltrated when she got to the floor. We are waiting anesthesia so we can start protocol. In the meantime I will give her NovoLog subcu insulin. Start normal saline as soon as possible. (2) DKA, type 1 Conclusion/Plan: Same as #1 Qualifiers: Diabetes mellitus complication detail: without coma Qualified Code(s): E10.10 - Type 1 diabetes mellitus with ketoacidosis without coma (3) Dehydration Conclusion/Plan: Severe, oral mucosa reflects that. Creatinine only mildly elevated at 1.4 for her. We will continue to monitor closely. Anticipate 6-7 L of hydration will be given. (4) Altered mental status Conclusion/Plan: From her DKA and metabolic encephalopathy. We will check urine tox screen for other substances. Qualifiers: Altered mental status type: stupor Qualified Code(s): R40.1 - Stupor (5) Anemia Conclusion/Plan: Chronic. Combined factors of iron deficiency anemia, nutritional, substance abuse. (6) Elevated LFTs Conclusion/Plan: Previous hepatitis serology has been negative for AB and C. We will repeat serology. Check ultrasound. - Lab Results Fish Bones: 02/28/18 15:15 02/28/18 17:22 Core Measures - Anticipated LOS I expect patient to be DC'd or transferred within 96 hours.: Yes - DVT/VTE - Prophylaxis VTE/DVT Device ordered at admit?: Yes
[2018-02-28 16:18] LABS: ABNORMAL LYMPHS % (MANUAL) 0 %
[2018-02-28 16:19] LABS: BAND NEUTROPHILS % (MANUAL) 4 %; BASOPHILS # (MANUAL) 0.3 10^3/uL (0-0.1); BASOPHILS % (MANUAL) 2 %; DIFFERENTIAL COMMENT MANUAL DIFFERENTIAL; LYMPHOCYTES # (MANUAL) 4.6 10^3/uL (1.5-3.5); LYMPHOCYTES % (MANUAL) 24 %; METAMYELOCYTES % (MANUAL) 2 %; MONOCYTES # (MANUAL) 0.5 10^3/uL (0.0-1.0); NEUTROPHILS # (MANUAL) 11.2 10^3/uL (1.5-6.6); NEUTROPHILS % (MANUAL) 62 %; PLATELET ESTIMATE, MANUAL INCREASED (>450,000) (NORMAL); PLATELET MORPHOLOGY 1+ LARGE PLATELETS (NORMAL)
[2018-02-28 16:28] LABS: HB2 TOTAL 10.9 g/dL; HEMOGLOBIN A1C % 10.5 % (4.6-6.2)
[2018-02-28 19:57] LABS: MUDS CUTOFF CONCENTRATIONS CUTOFF CONC BELOW:
[2018-02-28 20:00] LABS: BILIRUBIN,URINE NEGATIVE (NEGATIVE); GLUCOSE, URINE (UA) >=1000 mg/dL (NEGATIVE); KETONES,URINE (UA) >=80 mg/dL (NEGATIVE); LEUKOCYTE ESTERASE, URINE NEGATIVE (NEGATIVE); NITRITE,URINE NEGATIVE (NEGATIVE); OCCULT BLOOD,URINE SMALL (NEGATIVE); PH,URINE 5.5 PH (5.0-7.5); PROTEIN,URINE TRACE mg/dL (NEGATIVE); UROBILINOGEN,URINE 0.2 (NORMAL) E.U./dL (NORMAL)
[2018-02-28] MEDS: SODIUM CHLORIDE 0.9% 1,000 ML IV SCH ×4 (20:00→23:16)
--- NOTE | 2018-02-28 20:08 | ANESTHESIA PROCEDURE NOTE ---
Anesth Central Line Template - Central Line Central Line Preparation: Unable to obtain consent (Patient obtunded with no family present or available. Line placement considered to be emergent.), Time out completed, Ultrasound used, Sterile prep and drape Central line location: Right Femoral Central line type: Triple lumen Central line catheter tip site resides: Unspecified lower vein access Central line aftercare: Chlorhexidine disc placed, Secured (with suture), No complications, Pt tolerated well Other Info/Details: Called to assist in central line placement for a patient well known to our service. She has had multiple central lines placed in the past. Multiple attempts had been made at the Right IJ site without success. The Left IJ was imaged using ultrasound and images did not indicate this would be an adequate vessel. The right femoral vein was imaged and it was determined this to be a superior site. The right groin was prepped with chlorohexadine and sterile gown, gloves, mask and full length drapes were utilized. The groin was anesthetized with 2ml of 1%lidocaine. A 17G needle was inserted into the right femoral vein using ultrasound guidance and the wire was advanced with ease. Dilator was used and a triple lumen catheter was inserted over the wire. The wire was removed and all ports aspirated blood and were flushed. Line was sutured in place and biopatch was applied to site. Line was covered with a sterile dressing.
[2018-02-28 20:09] LABS: CLARITY,URINE CLEAR (CLEAR)
[2018-02-28 20:10] LABS: AMORPHOUS SEDIMENT,UR Few /LPF; AMPHETAMINE SCREEN,URINE NEGATIVE (NEGATIVE); BACTERIA,URINE Rare /HPF (None Seen); BENZODIAZEPINES SCREEN, URINE NEGATIVE (NEGATIVE); CASTS, URINE 0-2 Granular Casts /LPF; COCAINE SCREEN URINE NEGATIVE (NEGATIVE); METHADONE SCREEN, URINE NEGATIVE (NEGATIVE); METHAMPHETAMINES SCREEN, URINE POSITIVE (NEGATIVE); OPIATE SCREEN, URINE POSITIVE (NEGATIVE); OXYCODONE SCREEN, URINE NEGATIVE (NEGATIVE); PROPOXYPHENE SCREEN, URINE NEGATIVE (NEGATIVE); RBC,URINE 0-5 /HPF (0-5); SQUAMOUS EPITHELIAL CELL,UR RARE Squamous (<= Few); TRICYCLIC ANTIDEPRESSANT,URINE NEGATIVE (NEGATIVE)
[2018-02-28 20:22] LABS: KETONES, SERUM (ACETEST) SMALL (NEGATIVE)
[2018-02-28 20:27] LABS: VBG BASE EXCESS -27.9 mmol/L (-2 - +2); VBG PCO2 13.6 mmHg (41-51); VBG PH 6.93 (7.31-7.41); VBG PO2 130.7 mmHg (25-47); VBG TOTAL CO2 3.2 mmol/L (24-29)
--- NOTE | 2018-02-28 20:32 | PROVIDER PROGRESS NOTE ---
Subjective - Prog Note Date Prog Note Date: 02/28/18 Prog Note Time: 20:29 - Subjective Pt reports feeling: Improved (Patient has had serial VBG's, BMP's with ECG x1, on aggressive IVF's and plasmalyte ith changes to clinical status), No change Subjective: Patient c/o thirst and chills. AMS seen as she thinks she is in [place]. Re- evaluated and patient at times is agitated yet more alert. Current Medications - Current Medications Current Medications: Holding ALL home meds for now Medications Summary Parenteral Electrolytes (Plasma-Lyte A Ph 7.4) 1,000 mls @ 100 mls/hr IV .Q10H SYLVIA; Protocol Last Admin: 02/28/18 20:27 Dose: 100 mls/hr Medication Titration Document 02/28/18 20:27 JPT (Rec: 02/28/18 20:27 JPT [id number]) Titration Intake Container Volume 1,000 Elapsed Time 4h 40m Titration Dosing IV Rate 100 Increase/Decrease Started/Running Cumulative Dose Not Applicable Total Intake (Rx) 466.667 Volume Adjustment/Waste 0 Discontinued Medications Sodium Chloride (Normal Saline 0.9%) 1,000 mls @ 0 mls/hr IV .Q0M ONE Stop: 02/28/18 15:00 Last Admin: 02/28/18 15:48 Dose: 999 mls/hr Medication Titration Document 02/28/18 15:48 CP (Rec: 02/28/18 15:48 CP [id number]) Titration Intake Container Volume 1,000 Elapsed Time 0m Titration Dosing IV Rate 999 Increase/Decrease Started Cumulative Dose Not Applicable Volume Adjustment/Waste 0 Insulin Aspart (Novolog) 35 unit SUBQ ONCE ONE Stop: 02/28/18 14:31 Last Admin: 02/28/18 17:50 Dose: 35 unit Blood Glucose Document 02/28/18 17:50 KJ (Rec: 02/28/18 19:29 KJ [id number]) Blood Glucose Result (mg/dL) 917 Medication Double Check Document 02/28/18 17:50 KJ (Rec: 02/28/18 19:29 KJ [id number]) Verify Double Check Yes Subcutaneous Injection Site Document 02/28/18 17:50 KJ (Rec: 02/28/18 19:29 KJ [id number]) Site Subcutaneous Injection Site Left Outer Upper Arm Lorazepam (Ativan Inj (Vial)) 1 mg IVP ONCE STA Stop: 02/28/18 15:26 Last Admin: 02/28/18 15:32 Dose: 1 mg Active Medications Generic Name Dose Route Start Last Admin Trade Name Freq PRN Reason Stop Dose Admin Acetaminophen 650 mg 02/28/18 15:49 Tylenol PO Q4HR PRN Pain 1 to 4 Heparin Sodium (Beef Lung) 30 - 50 unit 02/28/18 23:09 IVP PRN PRN Central Line Protocol (<24 hr) Insulin Human Regular 100 unit 100 mls @ 4.76 mls/hr 02/28/18 16:00 03/01/18 06:07 / Sodium Chloride IV 2.5 unit/hr .Q21H1M SYLVIA 2.5 mls/hr Titration Protocol 4.76 UNIT/HR Sodium Chloride 3,000 mls @ 250 mls/hr 03/01/18 01:35 03/01/18 04:20 Normal Saline 0.9% IV 03/01/18 13:34 Infused ONCE ONE Infusion Potassium Chloride/Dextrose/Sod Cl 1,000 mls @ 150 mls/hr 03/01/18 04:00 03/01/18 04:20 D5.45ns W/20 Meq Kcl IV 150 mls/hr .Q6H40M SYLVIA Administration Potassium Phosphate 15 mmol/ 255 mls @ 63 mls/hr 03/01/18 08:00 Sodium Chloride IV 03/01/18 12:02 ONCE ONE Protocol Ondansetron HCl 4 mg 02/28/18 15:49 Zofran Inj IVP Q6HR PRN Nausea / Vomiting Ondansetron HCl 4 mg 02/28/18 15:49 Zofran Odt TL Q6HR PRN Nausea / Vomiting Pantoprazole Sodium 40 mg 02/28/18 22:00 02/28/18 21:42 Protonix IVP 40 mg BID SYLVIA Administration Polyethylene Glycol 17 gm 03/01/18 09:00 Miralax PO DAILY SYLVIA Sodium Chloride 10 ml 02/28/18 17:00 03/01/18 01:43 Normal Saline Flush 0.9% IVP 10 ml 0100,0900,1700 SYLVIA Administration Sodium Chloride 10 ml 02/28/18 15:49 Normal Saline Flush 0.9% IVP PRN PRN NEEDED PER PROVIDER ORDERS DULoxetine [Cymbalta] 20 mg PO DAILY 02/09/18 cloNIDine HCl [Clonidine HCl] 0.1 mg PO BID 02/09/18 Objective - Vital Signs/Intake & Output Reviewed Vital Signs: Yes Vital Signs: Vital Signs Temp Pulse Resp BP Pulse Ox 02/28/18 20:04 35.7 C L 94 22 146/92 H 100 02/28/18 19:00 33.8 C L 90 24 155/91 H 100 02/28/18 18:00 30.5 C L 77 21 111/75 100 02/28/18 17:30 29.5 C L 70 21 116/83 H 100 02/28/18 17:00 29.2 C L 70 21 121/71 100 02/28/18 16:39 28.1 C L 66 20 121/71 100 VSS, hypothermic at 33.8 C, HR 90, RR 24, 100% RA, BP 155/91 Vital Signs 02/28/18 03/01/18 03/01/18 23:00 00:00 01:00 Temperature 37.3 C 37.6 C H Heart Rate [ 124 H 126 H 125 H Brachial] Respiratory 24 36 H 30 H Rate Blood Pressure 107/61 117/59 L 132/66 H [Left Brachial artery] O2 Saturation 100 100 100 03/01/18 03/01/18 03/01/18 02:00 03:00 04:00 Temperature 37.7 C H Heart Rate [ 124 H 127 H 131 H Brachial] Respiratory 28 H 25 H 25 H Rate Blood Pressure 136/87 H 145/82 H 146/81 H [Left Brachial artery] O2 Saturation 100 100 100 03/01/18 03/01/18 04:59 06:00 Temperature 36.8 C Heart Rate [ 131 H 131 H Brachial] Respiratory 29 H 25 H Rate Blood Pressure 135/71 H 138/80 H [Left Brachial artery] O2 Saturation 100 100 Intake & Output: Intake & Output 02/25/18 02/26/18 02/27/18 02/28/18 23:59 23:59 23:59 23:59 Intake Total 466.667 Output Total 0 Balance 466.667 Adequate - Objective General Appearance: positive: Lethargic (Responds to verbal and painful stimuli) Eyes Bilateral: positive: PERRL, EOMI ENT: positive: Dry mucous membranes, Other (Appears moderately to severely dehydrated) Neck: positive: Nml inspection, Thyroid nml, No JVD, Trachea midline. negative: Thyromegaly, Tracheal deviation Respiratory: positive: Chest non-tender, No respiratory distress, Breath sounds nml Cardiovascular: positive: Regular rate & rhythm, No murmur, No gallop. negative: Irregularly irregular, JVD present, Gallop/S4, Friction rub Peripheral Pulses: 1+ Radial (R), 1+ Radial (L), 1+ Popliteal (R), 1+ Popliteal (L), 2+ Femoral (R), 2+ Femoral (L) Abdomen: positive: Non-tender, No organomegaly, Nml bowel sounds, No distention. negative: Tenderness, Guarding, Rebound, Hepatomegaly, Splenomegaly Back: positive: Nml inspection. negative: CVA tenderness (R), CVA tenderness (L) Skin: positive: Warm, Dry, Diaphoresis Extremities: positive: Non-tender, No pedal edema Neurologic/Psychiatric: positive: Disoriented to person, Disoriented to place, Disoriented to time - Lab Results Fish Bones: 03/01/18 04:00 03/01/18 04:00 Other Labs: Lab Results x24hrs 02/28/18 02/28/18 02/28/18 Range/Units 20:20 20:05 19:30 WBC (4.8-10.8) x10^3/uL RBC (4.20-5.40) 10^6/uL Hgb (12.0-16.0) g/dL Hct (37.0-47.0) % MCV (81.0-99.0) fL MCH (27.0-31.0) pg MCHC (32.0-36.0) g/dL RDW (12.0-15.0) % Plt Count (130-450) 10^3/uL MPV (7.9-10.8) fL Neut # (Auto) Lymph # (Auto) Adams # (Auto) Eos # (Auto) Baso # (Auto) Absolute Nucleated RBC Total Counted Band Neuts % (Manual) (0 - 10) % Reactive Lymphs % (Man) % Abnorm Lymph % (Manual) % Metamyelocytes % ( - 0) % Nucleated RBC % Neutrophils # (Manual) (1.5-6.6) 10^3/uL Lymphocytes # (Manual) (1.5-3.5) 10^3/uL Monocytes # (Manual) (0.0-1.0) 10^3/uL Eosinophils # (Manual) (0-0.7) 10^3/uL Basophils # (Manual) (0-0.1) 10^3/uL Differential Comment Manual Slide Review Platelet Estimate (NORMAL) Platelet Morphology (NORMAL) RBC Morph Micro Appear (NORMAL) VBG pH 6.930 L (7.31-7.41) VBG pCO2 13.6 L (41-51) mmHg VBG pO2 130.7 H (25-47) mmHg VBG HCO3 2.8 L (23-28) mmol/L VBG Total CO2 3.2 L (24-29) mmol/L VBG O2 Saturation 97.1 H (60-80) % VBG Base Excess -27.9 L (-2 - +2) mmol/L Sodium (135-145) mmol/L Potassium (3.5-5.0) mmol/L Chloride (101-111) mmol/L Carbon Dioxide (21-32) mmol/L Anion Gap (6-13) BUN (6-20) mg/dL Creatinine (0.4-1.0) mg/dL Estimated GFR (MDRD) (>89) Glucose (70-100) mg/dL Glycated Hemoglobin (4.6-6.2) % Estim Average Glucose (70-100) Calcium (8.5-10.3) mg/dL Phosphorus (2.5-4.6) mg/dL Magnesium (1.7-2.8) mg/dL Total Bilirubin (0.2-1.0) mg/dL AST (10-42) IU/L ALT (10-60) IU/L Alkaline Phosphatase (42-121) IU/L Ammonia (7-35) umol/L Total Creatine Kinase (22-269) IU/L CK-MB (CK-2) (0.6-6.3) ng/mL Troponin I (<0.49) ng/mL Total Protein (6.7-8.2) g/dL Albumin (3.2-5.5) g/dL Globulin (2.1-4.2) g/dL Albumin/Globulin Ratio (1.0-2.2) Lipase (22-51) U/L Urine Color Urine Clarity (CLEAR) Urine pH (5.0-7.5) PH Ur Specific Berkey (1.002-1.030) Urine Protein (NEGATIVE) mg/dL Urine Glucose (UA) (NEGATIVE) mg/dL Urine Ketones (NEGATIVE) mg/dL Urine Occult Blood (NEGATIVE) Urine Nitrite (NEGATIVE) Urine Bilirubin (NEGATIVE) Urine Urobilinogen (NORMAL) E.U./dL Ur Leukocyte Esterase (NEGATIVE) Urine RBC (0-5) /HPF Urine WBC (0-5) /HPF Ur Squamous Epith Cells (<= Few) Amorphous Sediment /LPF Urine Bacteria (None Seen) /HPF Urine Casts /LPF Ur Microscopic Review Urine Culture Comments Urine Opiates Screen POSITIVE H (NEGATIVE) Ur Oxycodone Screen NEGATIVE (NEGATIVE) Urine Methadone Screen NEGATIVE (NEGATIVE) Ur Propoxyphene Screen NEGATIVE (NEGATIVE) Acetaminophen (10-30) ug/mL Ur Barbiturates Screen NEGATIVE (NEGATIVE) Ur Tricyclics Screen NEGATIVE (NEGATIVE) Ur Phencyclidine Scrn NEGATIVE (NEGATIVE) Ur Amphetamine Screen NEGATIVE (NEGATIVE) U Methamphetamines Scrn POSITIVE H (NEGATIVE) U Benzodiazepines Scrn NEGATIVE (NEGATIVE) Urine Cocaine Screen NEGATIVE (NEGATIVE) U Cannabinoids Screen NEGATIVE (NEGATIVE) Ethyl Alcohol mg/dL Serum Ketones SMALL H (NEGATIVE) 02/28/18 02/28/18 02/28/18 Range/Units 19:30 17:22 17:22 WBC (4.8-10.8) x10^3/uL RBC (4.20-5.40) 10^6/uL Hgb (12.0-16.0) g/dL Hct (37.0-47.0) % MCV (81.0-99.0) fL MCH (27.0-31.0) pg MCHC (32.0-36.0) g/dL RDW (12.0-15.0) % Plt Count (130-450) 10^3/uL MPV (7.9-10.8) fL Neut # (Auto) Lymph # (Auto) Adams # (Auto) Eos # (Auto) Baso # (Auto) Absolute Nucleated RBC Total Counted Band Neuts % (Manual) (0 - 10) % Reactive Lymphs % (Man) % Abnorm Lymph % (Manual) % Metamyelocytes % ( - 0) % Nucleated RBC % Neutrophils # (Manual) (1.5-6.6) 10^3/uL Lymphocytes # (Manual) (1.5-3.5) 10^3/uL Monocytes # (Manual) (0.0-1.0) 10^3/uL Eosinophils # (Manual) (0-0.7) 10^3/uL Basophils # (Manual) (0-0.1) 10^3/uL Differential Comment Manual Slide Review Platelet Estimate (NORMAL) Platelet Morphology (NORMAL) RBC Morph Micro Appear (NORMAL) VBG pH (7.31-7.41) VBG pCO2 (41-51) mmHg VBG pO2 (25-47) mmHg VBG HCO3 (23-28) mmol/L VBG Total CO2 (24-29) mmol/L VBG O2 Saturation (60-80) % VBG Base Excess (-2 - +2) mmol/L Sodium (135-145) mmol/L Potassium (3.5-5.0) mmol/L Chloride (101-111) mmol/L Carbon Dioxide (21-32) mmol/L Anion Gap (6-13) BUN (6-20) mg/dL Creatinine (0.4-1.0) mg/dL Estimated GFR (MDRD) (>89) Glucose 917 H* (70-100) mg/dL Glycated Hemoglobin (4.6-6.2) % Estim Average Glucose (70-100) Calcium (8.5-10.3) mg/dL Phosphorus (2.5-4.6) mg/dL Magnesium (1.7-2.8) mg/dL Total Bilirubin (0.2-1.0) mg/dL AST (10-42) IU/L ALT (10-60) IU/L Alkaline Phosphatase (42-121) IU/L Ammonia 112.3 H* (7-35) umol/L Total Creatine Kinase (22-269) IU/L CK-MB (CK-2) (0.6-6.3) ng/mL Troponin I (<0.49) ng/mL Total Protein (6.7-8.2) g/dL Albumin (3.2-5.5) g/dL Globulin (2.1-4.2) g/dL Albumin/Globulin Ratio (1.0-2.2) Lipase (22-51) U/L Urine Color LT. YELLOW Urine Clarity CLEAR (CLEAR) Urine pH 5.5 (5.0-7.5) PH Ur Specific Berkey 1.025 (1.002-1.030) Urine Protein TRACE (NEGATIVE) mg/dL Urine Glucose (UA) >=1000 H (NEGATIVE) mg/dL Urine Ketones >=80 H (NEGATIVE) mg/dL Urine Occult Blood SMALL H (NEGATIVE) Urine Nitrite NEGATIVE (NEGATIVE) Urine Bilirubin NEGATIVE (NEGATIVE) Urine Urobilinogen 0.2 (NORMAL) (NORMAL) E.U./dL Ur Leukocyte Esterase NEGATIVE (NEGATIVE) Urine RBC 0-5 (0-5) /HPF Urine WBC 0-3 (0-5) /HPF Ur Squamous Epith Cells RARE Squamous (<= Few) Amorphous Sediment Few /LPF Urine Bacteria Rare (None Seen) /HPF Urine Casts 0-2 Granular Casts /LPF Ur Microscopic Review INDICATED Urine Culture Comments NOT INDICATED Urine Opiates Screen (NEGATIVE) Ur Oxycodone Screen (NEGATIVE) Urine Methadone Screen (NEGATIVE) Ur Propoxyphene Screen (NEGATIVE) Acetaminophen (10-30) ug/mL Ur Barbiturates Screen (NEGATIVE) Ur Tricyclics Screen (NEGATIVE) Ur Phencyclidine Scrn (NEGATIVE) Ur Amphetamine Screen (NEGATIVE) U Methamphetamines Scrn (NEGATIVE) U Benzodiazepines Scrn (NEGATIVE) Urine Cocaine Screen (NEGATIVE) U Cannabinoids Screen (NEGATIVE) Ethyl Alcohol mg/dL Serum Ketones (NEGATIVE) 02/28/18 02/28/18 02/28/18 Range/Units 15:15 15:15 15:15 WBC (4.8-10.8) x10^3/uL RBC (4.20-5.40) 10^6/uL Hgb (12.0-16.0) g/dL Hct (37.0-47.0) % MCV (81.0-99.0) fL MCH (27.0-31.0) pg MCHC (32.0-36.0) g/dL RDW (12.0-15.0) % Plt Count (130-450) 10^3/uL MPV (7.9-10.8) fL Neut # (Auto) Lymph # (Auto) Adams # (Auto) Eos # (Auto) Baso # (Auto) Absolute Nucleated RBC Total Counted Band Neuts % (Manual) (0 - 10) % Reactive Lymphs % (Man) % Abnorm Lymph % (Manual) % Metamyelocytes % ( - 0) % Nucleated RBC % Neutrophils # (Manual) (1.5-6.6) 10^3/uL Lymphocytes # (Manual) (1.5-3.5) 10^3/uL Monocytes # (Manual) (0.0-1.0) 10^3/uL Eosinophils # (Manual) (0-0.7) 10^3/uL Basophils # (Manual) (0-0.1) 10^3/uL Differential Comment Manual Slide Review Platelet Estimate (NORMAL) Platelet Morphology (NORMAL) RBC Morph Micro Appear (NORMAL) VBG pH 6.777 L (7.31-7.41) VBG pCO2 13.4 L (41-51) mmHg VBG pO2 102.7 H (25-47) mmHg VBG HCO3 1.9 L (23-28) mmol/L VBG Total CO2 2.3 L (24-29) mmol/L VBG O2 Saturation 92.5 H (60-80) % VBG Base Excess -31.8 L (-2 - +2) mmol/L Sodium (135-145) mmol/L Potassium (3.5-5.0) mmol/L Chloride (101-111) mmol/L Carbon Dioxide (21-32) mmol/L Anion Gap (6-13) BUN (6-20) mg/dL Creatinine (0.4-1.0) mg/dL Estimated GFR (MDRD) (>89) Glucose (70-100) mg/dL Glycated Hemoglobin 10.5 H (4.6-6.2) % Estim Average Glucose 255 H (70-100) Calcium (8.5-10.3) mg/dL Phosphorus (2.5-4.6) mg/dL Magnesium (1.7-2.8) mg/dL Total Bilirubin (0.2-1.0) mg/dL AST (10-42) IU/L ALT (10-60) IU/L Alkaline Phosphatase (42-121) IU/L Ammonia (7-35) umol/L Total Creatine Kinase (22-269) IU/L CK-MB (CK-2) (0.6-6.3) ng/mL Troponin I (<0.49) ng/mL Total Protein (6.7-8.2) g/dL Albumin (3.2-5.5) g/dL Globulin (2.1-4.2) g/dL Albumin/Globulin Ratio (1.0-2.2) Lipase (22-51) U/L Urine Color Urine Clarity (CLEAR) Urine pH (5.0-7.5) PH Ur Specific Berkey (1.002-1.030) Urine Protein (NEGATIVE) mg/dL Urine Glucose (UA) (NEGATIVE) mg/dL Urine Ketones (NEGATIVE) mg/dL Urine Occult Blood (NEGATIVE) Urine Nitrite (NEGATIVE) Urine Bilirubin (NEGATIVE) Urine Urobilinogen (NORMAL) E.U./dL Ur Leukocyte Esterase (NEGATIVE) Urine RBC (0-5) /HPF Urine WBC (0-5) /HPF Ur Squamous Epith Cells (<= Few) Amorphous Sediment /LPF Urine Bacteria (None Seen) /HPF Urine Casts /LPF Ur Microscopic Review Urine Culture Comments Urine Opiates Screen (NEGATIVE) Ur Oxycodone Screen (NEGATIVE) Urine Methadone Screen (NEGATIVE) Ur Propoxyphene Screen (NEGATIVE) Acetaminophen < 10 L (10-30) ug/mL Ur Barbiturates Screen (NEGATIVE) Ur Tricyclics Screen (NEGATIVE) Ur Phencyclidine Scrn (NEGATIVE) Ur Amphetamine Screen (NEGATIVE) U Methamphetamines Scrn (NEGATIVE) U Benzodiazepines Scrn (NEGATIVE) Urine Cocaine Screen (NEGATIVE) U Cannabinoids Screen (NEGATIVE) Ethyl Alcohol mg/dL Serum Ketones (NEGATIVE) 02/28/18 02/28/18 02/28/18 Range/Units 15:15 15:15 15:15 WBC 17.0 H (4.8-10.8) x10^3/uL RBC 4.74 (4.20-5.40) 10^6/uL Hgb 10.2 L (12.0-16.0) g/dL Hct 40.7 (37.0-47.0) % MCV 85.9 (81.0-99.0) fL MCH 21.5 L (27.0-31.0) pg MCHC 25.0 L (32.0-36.0) g/dL RDW 18.2 H (12.0-15.0) % Plt Count 632 H (130-450) 10^3/uL MPV 9.1 (7.9-10.8) fL Neut # (Auto) Not Reportable Lymph # (Auto) Not Reportable Adams # (Auto) Not Reportable Eos # (Auto) Not Reportable Baso # (Auto) Not Reportable Absolute Nucleated RBC Not Reportable Total Counted 100 Band Neuts % (Manual) 4 (0 - 10) % Reactive Lymphs % (Man) 3 % Abnorm Lymph % (Manual) 0 % Metamyelocytes % 2 H ( - 0) % Nucleated RBC % Not Reportable Neutrophils # (Manual) 11.2 H (1.5-6.6) 10^3/uL Lymphocytes # (Manual) 4.6 H (1.5-3.5) 10^3/uL Monocytes # (Manual) 0.5 (0.0-1.0) 10^3/uL Eosinophils # (Manual) 0.0 (0-0.7) 10^3/uL Basophils # (Manual) 0.3 H (0-0.1) 10^3/uL Differential Comment MANUAL DIFFERENTIAL Manual Slide Review Indicated Platelet Estimate INCREASED (>450,000) (NORMAL) Platelet Morphology 1+ LARGE PLATELETS (NORMAL) RBC Morph Micro Appear 1+ SPHEROCYTES (NORMAL) VBG pH (7.31-7.41) VBG pCO2 (41-51) mmHg VBG pO2 (25-47) mmHg VBG HCO3 (23-28) mmol/L VBG Total CO2 (24-29) mmol/L VBG O2 Saturation (60-80) % VBG Base Excess (-2 - +2) mmol/L Sodium 123 L (135-145) mmol/L Potassium 5.3 H (3.5-5.0) mmol/L Chloride 82 L (101-111) mmol/L Carbon Dioxide < 6 L* (21-32) mmol/L Anion Gap 35.0 H (6-13) BUN 47 H (6-20) mg/dL Creatinine 1.4 H (0.4-1.0) mg/dL Estimated GFR (MDRD) 43 L (>89) Glucose 877 H* (70-100) mg/dL Glycated Hemoglobin (4.6-6.2) % Estim Average Glucose (70-100) Calcium 8.4 L (8.5-10.3) mg/dL Phosphorus 10.3 H (2.5-4.6) mg/dL Magnesium 3.2 H (1.7-2.8) mg/dL Total Bilirubin 1.8 H (0.2-1.0) mg/dL AST 2529 H (10-42) IU/L ALT 354 H (10-60) IU/L Alkaline Phosphatase 282 H (42-121) IU/L Ammonia (7-35) umol/L Total Creatine Kinase 47 (22-269) IU/L CK-MB (CK-2) 3.3 (0.6-6.3) ng/mL Troponin I < 0.04 (<0.49) ng/mL Total Protein 8.4 H (6.7-8.2) g/dL Albumin 4.1 (3.2-5.5) g/dL Globulin 4.3 H (2.1-4.2) g/dL Albumin/Globulin Ratio 1.0 (1.0-2.2) Lipase 21 L (22-51) U/L Urine Color Urine Clarity (CLEAR) Urine pH (5.0-7.5) PH Ur Specific Berkey (1.002-1.030) Urine Protein (NEGATIVE) mg/dL Urine Glucose (UA) (NEGATIVE) mg/dL Urine Ketones (NEGATIVE) mg/dL Urine Occult Blood (NEGATIVE) Urine Nitrite (NEGATIVE) Urine Bilirubin (NEGATIVE) Urine Urobilinogen (NORMAL) E.U./dL Ur Leukocyte Esterase (NEGATIVE) Urine RBC (0-5) /HPF Urine WBC (0-5) /HPF Ur Squamous Epith Cells (<= Few) Amorphous Sediment /LPF Urine Bacteria (None Seen) /HPF Urine Casts /LPF Ur Microscopic Review Urine Culture Comments Urine Opiates Screen (NEGATIVE) Ur Oxycodone Screen (NEGATIVE) Urine Methadone Screen (NEGATIVE) Ur Propoxyphene Screen (NEGATIVE) Acetaminophen (10-30) ug/mL Ur Barbiturates Screen (NEGATIVE) Ur Tricyclics Screen (NEGATIVE) Ur Phencyclidine Scrn (NEGATIVE) Ur Amphetamine Screen (NEGATIVE) U Methamphetamines Scrn (NEGATIVE) U Benzodiazepines Scrn (NEGATIVE) Urine Cocaine Screen (NEGATIVE) U Cannabinoids Screen (NEGATIVE) Ethyl Alcohol 6.1 mg/dL Serum Ketones SMALL H (NEGATIVE) Sepsis Event Note (H) - Evaluation Confirmed Source and Organism (if known) of Sepsis: None Sepsis Associated Organ Dysfunction: SIRS sec to DKA with inflammatory response - Sepsis Criteria Sepsis Criteria: Recorded Temperature greater than 38.3C or Less than 36C, Recorded Respiratory Rate greater than 20, WBC count greater than 12,000 or less than 4000, [employer] [place]: altered consciousness (unrelated to primary neuro pathology) Assessment/Plan - Problem List (1) SIRS (systemic inflammatory response syndrome) Impression: No source of infection on UA, obtain 2 sets of blood cultures due to hx IVDU, hypothermia (now resolved), transaminitis, HANSA (improved) with severe acidemia. Would consider early goal directed therapy (empiric IV abx, already on IVF's s/p femoral artery CVP line plcmt) with TTE if blood cultures positive. Organ dysfunction seen with elevated LFT's, HANSA, metabolic encephalopathy, high ammonia, and respiratory response with compensatory response to metabolic acidosis, may need incubation if refractory acidosis seen with metabolic encephalopathy. CXR negative, Coags wnl, TSH normal and ECG shows sinus tachycardia with prominent p waves and ST changes. (2) Hepatic encephalopathy Impression: Hyperammonia with AST>ALT, check hep panel, may need lactulose enemas. Ammonia level today is normal. (3) Hypothermia due to non-environmental cause Impression: Sec to SIRS/DKA, check ECG for "sousa waves", on a bear hugger currently, may have underlying infectious process due to her IVDU. Check 2 sets of blood cultures. Check TSH. (4) IVDU (intravenous drug user) Impression: Blood cultures x2, UA shows no pyuria, however leukocytosis seen sec to DKA? vs underlying infection, in the setting of SIRS. (5) Acidosis due to type 1 diabetes mellitus Impression: Continues to be severely acidemic, with repeat labs showing co2 <6, high AG, pc02 13.6, cr 1.5, glu 787, K 5.4, Na lower at 118, still encephalopthic may need CT head once more stabilized. S/p Femoral CVP plcmt and will cont with aggressive IVF resuscitation, give 2 amps of bicarb, run plamalyte at 100 ml/hr along with IVF's with NS @500 ml/hr, recheck BMP, LA, VBG in 4 hrs. Patient may need incubation if acidemia and encephalopthy worsens with inability to protect airways. Alternatively could bipap NIPPV to stabilize as well if tachypenea or hypoxemia observed however this is a compensatory response to patients severe metabolic high gap acidosis from DKA. (6) Elevated LFTs Impression: Improved on todays labs, sec to DKA and SIRS, would check hep/hiv panel due to IVDU (7) HANSA (acute kidney injury) Impression: sec to DKA, mod-severe dehydration with electrolyte d/o. Improved, Aggressive IVF's, correct underlying electrolytes, sodium bicarb to give and plamalyte to continue.
[2018-02-28 20:33] LABS: BUN - BLOOD UREA NITROGEN 49 mg/dL (6-20); CALCIUM 7.7 mg/dL (8.5-10.3); CHLORIDE 83 mmol/L (101-111); CREATININE 1.5 mg/dL (0.4-1.0); GFR - MDRD 39 (>89); MAGNESIUM 2.5 mg/dL (1.7-2.8)
[2018-02-28 20:34] LABS: CARBON DIOXIDE - CO2 < 6 mmol/L (21-32)
[2018-02-28 20:35] LABS: GLUCOSE 787 mg/dL (70-100); SODIUM 118 mmol/L (135-145)
[2018-02-28] MEDS: INSULIN REGULAR HUMAN 100 UNIT in SODIUM CHLORIDE 0.9% 100ML 99 ML IV SCH (20:35)
[2018-02-28] MEDS: SODIUM CHLORIDE FLUSH 0.9% 10 ML SYRINGE IVP SCH (20:43)
[2018-02-28 20:50] LABS: VBG PH 6.93 (7.31-7.41)
[2018-02-28 21:11] LABS: HCG,QUALITATIVE BLOOD NEGATIVE
[2018-02-28] MEDS ORDERED: SODIUM BICARBONATE ABBOJECT 50 MEQ/50 ML SYRINGE IVP SCH (21:15)
[2018-02-28 21:18] LABS: INR 1.1 (0.8-1.2); PT - PROTHROMBIN TIME 12.2 secs (9.9-12.6)
[2018-02-28] MEDS: PANTOPRAZOLE 40 MG VIAL IVP SCH (21:42)
--- NOTE | 2018-02-28 22:20 | XRAY Report ---
Reason: tachypenia with hypothermia Procedure Date: 02/28/2018 Accession Number: [id number] / [id number] Procedure: XR - Chest 1 View X-Ray CPT Code: 32567 FULL RESULT: EXAM: CHEST RADIOGRAPHY. EXAM DATE: 02/28/2018 09:23 PM. CLINICAL HISTORY: Tachypnea with hypothermia. COMPARISON: Chest 1 view 02/10/2018 4:42 PM, chest without 01/04/2018 7:35 PM. TECHNIQUE: 1 view. FINDINGS: Lungs/Pleura: Improved aeration of the right lung base with minimal residual atelectasis. Lungs otherwise clear. No gross pneumothorax or large effusion. Mediastinum: Within exam limitations, the cardiomediastinal contour is normal. Other: None. IMPRESSION: Improved aeration of the right lung base with minimal residual atelectasis. No new abnormality seen in the chest. RADIA
[2018-03-01 01:07] LABS: VBG BASE EXCESS -16.7 mmol/L (-2 - +2); VBG PCO2 15.9 mmHg (41-51); VBG PH 7.306 (7.31-7.41); VBG PO2 88.3 mmHg (25-47); VBG TOTAL CO2 8.2 mmol/L (24-29)
[2018-03-01 01:20] LABS: ALBUMIN 2.9 g/dL (3.2-5.5); CALCIUM 6.7 mg/dL (8.5-10.3); CREATININE 1.3 mg/dL (0.4-1.0); PHOSPHORUS 1.9 mg/dL (2.5-4.6)
[2018-03-01 01:30] LABS: VBG PH 7.306 (7.31-7.41)
[2018-03-01] MEDS ORDERED: SODIUM CHLORIDE 0.9% 3,000 ML IV ONE (01:35)
[2018-03-01] MEDS ORDERED: CALCIUM GLUCONATE 2,000 MG in SODIUM CHLORIDE 0.9% 100ML 100 ML IV SCH (01:36)
[2018-03-01] MEDS: SODIUM CHLORIDE FLUSH 0.9% 10 ML SYRINGE IVP SCH ×3 (01:43→20:39)
[2018-03-01] MEDS: D5.45NS W/20 MEQ KCL 1,000 ML IV SCH ×3 (04:20→17:12)
[2018-03-01 04:22] LABS: KETONES, SERUM (ACETEST) LARGE (NEGATIVE)
[2018-03-01 04:33] LABS: ALBUMIN/GLOBULIN RATIO 1.2 (1.0-2.2); ALKALINE PHOSPHATASE 249 IU/L (42-121); ALT ALANINE AMINOTRANSFERASE 613 IU/L (10-60); AST ASPARTATE AMINOTRANSFERASE 1689 IU/L (10-42); BILIRUBIN,TOTAL 2.6 mg/dL (0.2-1.0); BUN - BLOOD UREA NITROGEN 39 mg/dL (6-20); CALCIUM 7.7 mg/dL (8.5-10.3); CHLORIDE 99 mmol/L (101-111); CREATININE 1.1 mg/dL (0.4-1.0); GFR - MDRD 56 (>89); GLUCOSE 188 mg/dL (70-100); MAGNESIUM 1.8 mg/dL (1.7-2.8); PHOSPHORUS 1.9 mg/dL (2.5-4.6); SODIUM 132 mmol/L (135-145); TOTAL PROTEIN 5.6 g/dL (6.7-8.2)
[2018-03-01 04:34] LABS: CARBON DIOXIDE - CO2 10 mmol/L (21-32)
[2018-03-01 04:42] LABS: BASOPHILS % (AUTO) 0.3 %; HGB - HEMOGLOBIN 7.6 g/dL (12.0-16.0); LYMPHOCYTES # (AUTO) 1.1 10^3/uL (1.5-3.5); LYMPHOCYTES % (AUTO) 9.4 %; MEAN CORPUSCULAR HEMOGLOBIN 20.9 pg (27.0-31.0); MEAN CORPUSCULAR HGB CONC 29.4 g/dL (32.0-36.0); MEAN CORPUSCULAR VOLUME 70.9 fL (81.0-99.0); MEAN PLATELET VOLUME 7.7 fL (7.9-10.8); MONOCYTES # (AUTO) 0.6 10^3/uL (0.0-1.0); MONOCYTES % (AUTO) 4.6 %; NEUTROPHILS # (AUTO) 10.3 10^3/uL (1.5-6.6); NEUTROPHILS % (AUTO) 85.7 %; PLT - PLATELET COUNT 446 10^3/uL (130-450); RED BLOOD COUNT 3.64 10^6/uL (4.20-5.40)
[2018-03-01] MEDS ORDERED: POTASSIUM PHOSPHATE 15 MMOL in SODIUM CHLORIDE 0.9% 250 ML IV ONE (08:00)
[2018-03-01] MEDS: PANTOPRAZOLE 40 MG VIAL IVP SCH ×2 (08:41→20:39)
[2018-03-01] MEDS: SODIUM CHLORIDE FLUSH 0.9% 10 ML SYRINGE IVP PRN ×5 (08:43→13:16)
[2018-03-01] MEDS: POLYETHYLENE GLYCOL 3350 17 GM PACKET PO SCH (09:07)
[2018-03-01 09:44] LABS: % IRON SATURATION 3 % (20-50); IRON 8 ug/dL (28-170); TOTAL IRON BINDING CAPACITY 315 ug/dL (250-450); TRANSFERRIN 225 mg/dL (192-382)
[2018-03-01] MEDS: INSULIN REGULAR HUMAN 100 UNIT in SODIUM CHLORIDE 0.9% 100ML 99 ML IV SCH (11:46)
--- NOTE | 2018-03-01 14:37 | PROVIDER PROGRESS NOTE ---
Subjective - Prog Note Date Prog Note Date: 03/01/18 Prog Note Time: 14:39 - Subjective Subjective: She is now more awake. Asking for water. Starting to wake up enough to ask for food. Overnight severe acidosis, hypothermia. All of this has slowly resolved. She is still on insulin drip Current Medications - Current Medications Current Medications: Active Medications Acetaminophen (Tylenol) 650 mg PO Q4HR PRN PRN Reason: Pain 1 to 4 Amitriptyline HCl (Elavil) 25 mg PO HS [facility] Aspirin (Ecotrin) 81 mg PO DAILY [facility] Cilostazol (Pletal) 100 mg PO BID [facility] Clonidine HCl (Catapres) 0.1 mg PO BID [facility] Diltiazem HCl (Cardizem Cd) 120 mg PO DAILY [facility] Duloxetine HCl (Cymbalta) 20 mg PO DAILY [facility] Heparin Sodium (Beef Lung) () 30 - 50 unit IVP PRN PRN PRN Reason: Central Line Protocol (<24 hr) Last Admin: 03/01/18 13:17 Dose: 30 unit Insulin Human Regular 100 unit (/ Sodium Chloride) 100 mls @ 4.76 mls/hr IV .Q21H1M [facility]; Protocol Stop: 03/01/18 16:00 Last Titration: 03/01/18 13:29 Dose: 2.5 unit/hr, 2.5 mls/hr Potassium Chloride/Dextrose/Sod Cl (D5.45ns W/20 Meq Kcl) 1,000 mls @ 150 mls/hr IV .Q6H40M [facility] Last Infusion: 03/01/18 13:28 Dose: 150 mls/hr Ibuprofen (Motrin) 600 mg PO Q6HR PRN PRN Reason: Pain 1 to 4 Insulin Aspart (Novolog) 15 unit SUBQ TIDWM [facility] Insulin Glargine (Lantus Solostar) 40 unit SUBQ QPM [facility] Metoclopramide HCl (Reglan) 10 mg PO ACHS [facility] Metoprolol Succinate (Toprol Xl) 25 mg PO BID [facility] Ondansetron HCl (Zofran Inj) 4 mg IVP Q6HR PRN PRN Reason: Nausea / Vomiting Ondansetron HCl (Zofran Odt) 4 mg TL Q6HR PRN PRN Reason: Nausea / Vomiting Pantoprazole Sodium (Protonix) 40 mg IVP BID [facility] Last Admin: 03/01/18 08:41 Dose: 40 mg Polyethylene Glycol (Miralax) 17 gm PO DAILY [facility] Last Admin: 03/01/18 09:07 Dose: Not Given Sodium Chloride (Normal Saline Flush 0.9%) 10 ml IVP 0100,0900,1700 [facility] Last Admin: 03/01/18 08:41 Dose: 10 ml Sodium Chloride (Normal Saline Flush 0.9%) 10 ml IVP PRN PRN PRN Reason: NEEDED PER PROVIDER ORDERS Last Admin: 03/01/18 13:16 Dose: 10 ml DULoxetine [Cymbalta] 20 mg PO DAILY 02/09/18 cloNIDine HCl [Clonidine HCl] 0.1 mg PO BID 02/09/18 Objective - Vital Signs/Intake & Output Reviewed Vital Signs: Yes Vital Signs: Vital Signs Temp Pulse Resp BP Pulse Ox 03/01/18 14:00 37.5 C 102 H 26 H 144/85 H 100 03/01/18 13:00 37.1 C 107 H 22 144/93 H 99 03/01/18 12:00 37.4 C 101 H 28 H 123/93 H 100 03/01/18 11:00 37.9 C H 105 H 29 H 148/89 H 99 Intake & Output: Intake & Output 02/26/18 02/27/18 02/28/18 03/01/18 23:59 23:59 23:59 23:59 Intake Total 3045.542 4911.577 Output Total 915 2895 Balance 2130.542 2016.577 - Objective General Appearance: positive: No acute distress, Other (sleeping most of the day. Does wake up periodically to ask for water. Does wake up when I walk in the room and call her name.) Eyes Bilateral: positive: PERRL, EOMI ENT: positive: Dry mucous membranes Neck: positive: No JVD. negative: Stiff neck, Carotid bruit Respiratory: positive: Chest non-tender. negative: Wheezes, Rales, Rhonchi Cardiovascular: positive: Regular rate & rhythm, Tachycardia, Systolic murmur. 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 right foot still w sutures from amp last month. no ative infectiion) Neurologic/Psychiatric: positive: CN's nml (2-12), Motor nml, Disoriented to time - Lab Results Fish Bones: 03/01/18 04:00 03/01/18 04:00 Other Labs: Lab Results x24hrs 03/01/18 03/01/18 03/01/18 Range/Units 11:50 11:45 09:50 WBC (4.8-10.8) x10^3/uL RBC (4.20-5.40) 10^6/uL Hgb (12.0-16.0) g/dL Hct (37.0-47.0) % MCV (81.0-99.0) fL MCH (27.0-31.0) pg MCHC (32.0-36.0) g/dL RDW (12.0-15.0) % Plt Count (130-450) 10^3/uL MPV (7.9-10.8) fL Neut # (Auto) Lymph # (Auto) [place] # (Auto) Eos # (Auto) Baso # (Auto) Absolute Nucleated RBC Total Counted Band Neuts % (Manual) (0 - 10) % Reactive Lymphs % (Man) % Abnorm Lymph % (Manual) % Metamyelocytes % ( - 0) % Nucleated RBC % Neutrophils # (Manual) (1.5-6.6) 10^3/uL Lymphocytes # (Manual) (1.5-3.5) 10^3/uL Monocytes # (Manual) (0.0-1.0) 10^3/uL Eosinophils # (Manual) (0-0.7) 10^3/uL Basophils # (Manual) (0-0.1) 10^3/uL Differential Comment Manual Slide Review Platelet Estimate (NORMAL) Platelet Morphology (NORMAL) RBC Morph Micro Appear (NORMAL) PT (9.9-12.6) secs INR (0.8-1.2) VBG pH (7.31-7.41) VBG pCO2 (41-51) mmHg VBG pO2 (25-47) mmHg VBG HCO3 (23-28) mmol/L VBG Total CO2 (24-29) mmol/L VBG O2 Saturation (60-80) % VBG Base Excess (-2 - +2) mmol/L Ionized Calcium (1.15-1.33) mmol/L Sodium (135-145) mmol/L Potassium (3.5-5.0) mmol/L Chloride (101-111) mmol/L Carbon Dioxide (21-32) mmol/L Anion Gap (6-13) BUN (6-20) mg/dL Creatinine (0.4-1.0) mg/dL Estimated GFR (MDRD) (>89) Glucose (70-100) mg/dL Glycated Hemoglobin (4.6-6.2) % Estim Average Glucose (70-100) Lactic Acid (0.5-2.2) mmol/L Calcium (8.5-10.3) mg/dL Phosphorus (2.5-4.6) mg/dL Magnesium (1.7-2.8) mg/dL Iron (28-170) ug/dL TIBC (250-450) ug/dL % Saturation (20-50) % Transferrin (192-382) mg/dL Total Bilirubin (0.2-1.0) mg/dL AST (10-42) IU/L ALT (10-60) IU/L Alkaline Phosphatase (42-121) IU/L Ammonia (7-35) umol/L Total Creatine Kinase (22-269) IU/L CK-MB (CK-2) (0.6-6.3) ng/mL Troponin I < 0.04 (<0.49) ng/mL Total Protein (6.7-8.2) g/dL Albumin (3.2-5.5) g/dL Globulin (2.1-4.2) g/dL Albumin/Globulin Ratio (1.0-2.2) Lipase (22-51) U/L TSH (0.34-5.60) uIU/mL Serum HCG, Qual Urine Color Urine Clarity (CLEAR) Urine pH (5.0-7.5) PH Ur Specific [place] (1.002-1.030) Urine Protein (NEGATIVE) mg/dL Urine Glucose (UA) (NEGATIVE) mg/dL Urine Ketones (NEGATIVE) mg/dL Urine Occult Blood (NEGATIVE) Urine Nitrite (NEGATIVE) Urine Bilirubin (NEGATIVE) Urine Urobilinogen (NORMAL) E.U./dL Ur Leukocyte Esterase (NEGATIVE) Urine RBC (0-5) /HPF Urine WBC (0-5) /HPF Ur Squamous Epith Cells (<= Few) Amorphous Sediment /LPF Urine Bacteria (None Seen) /HPF Urine Casts /LPF Ur Microscopic Review Urine Culture Comments Stl Occult Blood (IFOB) POSITIVE A (NEGATIVE) Urine Opiates Screen (NEGATIVE) Ur Oxycodone Screen (NEGATIVE) Urine Methadone Screen (NEGATIVE) Ur Propoxyphene Screen (NEGATIVE) Acetaminophen (10-30) ug/mL Ur Barbiturates Screen (NEGATIVE) Ur Tricyclics Screen (NEGATIVE) Ur Phencyclidine Scrn (NEGATIVE) Ur Amphetamine Screen (NEGATIVE) U Methamphetamines Scrn (NEGATIVE) U Benzodiazepines Scrn (NEGATIVE) Urine Cocaine Screen (NEGATIVE) U Cannabinoids Screen (NEGATIVE) Ethyl Alcohol mg/dL Serum Ketones MODERATE H (NEGATIVE) 03/01/18 03/01/18 03/01/18 Range/Units 08:55 08:55 04:00 WBC (4.8-10.8) x10^3/uL RBC (4.20-5.40) 10^6/uL Hgb (12.0-16.0) g/dL Hct (37.0-47.0) % MCV (81.0-99.0) fL MCH (27.0-31.0) pg MCHC (32.0-36.0) g/dL RDW (12.0-15.0) % Plt Count (130-450) 10^3/uL MPV (7.9-10.8) fL Neut # (Auto) Lymph # (Auto) [place] # (Auto) Eos # (Auto) Baso # (Auto) Absolute Nucleated RBC Total Counted Band Neuts % (Manual) (0 - 10) % Reactive Lymphs % (Man) % Abnorm Lymph % (Manual) % Metamyelocytes % ( - 0) % Nucleated RBC % Neutrophils # (Manual) (1.5-6.6) 10^3/uL Lymphocytes # (Manual) (1.5-3.5) 10^3/uL Monocytes # (Manual) (0.0-1.0) 10^3/uL Eosinophils # (Manual) (0-0.7) 10^3/uL Basophils # (Manual) (0-0.1) 10^3/uL Differential Comment Manual Slide Review Platelet Estimate (NORMAL) Platelet Morphology (NORMAL) RBC Morph Micro Appear (NORMAL) PT (9.9-12.6) secs INR (0.8-1.2) VBG pH (7.31-7.41) VBG pCO2 (41-51) mmHg VBG pO2 (25-47) mmHg VBG HCO3 (23-28) mmol/L VBG Total CO2 (24-29) mmol/L VBG O2 Saturation (60-80) % VBG Base Excess (-2 - +2) mmol/L Ionized Calcium (1.15-1.33) mmol/L Sodium (135-145) mmol/L Potassium (3.5-5.0) mmol/L Chloride (101-111) mmol/L Carbon Dioxide (21-32) mmol/L Anion Gap (6-13) BUN (6-20) mg/dL Creatinine (0.4-1.0) mg/dL Estimated GFR (MDRD) (>89) Glucose (70-100) mg/dL Glycated Hemoglobin (4.6-6.2) % Estim Average Glucose (70-100) Lactic Acid (0.5-2.2) mmol/L Calcium (8.5-10.3) mg/dL Phosphorus (2.5-4.6) mg/dL Magnesium (1.7-2.8) mg/dL Iron 8 L (28-170) ug/dL TIBC 315 (250-450) ug/dL % Saturation 3 L (20-50) % Transferrin 225 (192-382) mg/dL Total Bilirubin (0.2-1.0) mg/dL AST (10-42) IU/L ALT (10-60) IU/L Alkaline Phosphatase (42-121) IU/L Ammonia 14.5 (7-35) umol/L Total Creatine Kinase (22-269) IU/L CK-MB (CK-2) (0.6-6.3) ng/mL Troponin I (<0.49) ng/mL Total Protein (6.7-8.2) g/dL Albumin (3.2-5.5) g/dL Globulin (2.1-4.2) g/dL Albumin/Globulin Ratio (1.0-2.2) Lipase (22-51) U/L TSH (0.34-5.60) uIU/mL Serum HCG, Qual Urine Color Urine Clarity (CLEAR) Urine pH (5.0-7.5) PH Ur Specific [place] (1.002-1.030) Urine Protein (NEGATIVE) mg/dL Urine Glucose (UA) (NEGATIVE) mg/dL Urine Ketones (NEGATIVE) mg/dL Urine Occult Blood (NEGATIVE) Urine Nitrite (NEGATIVE) Urine Bilirubin (NEGATIVE) Urine Urobilinogen (NORMAL) E.U./dL Ur Leukocyte Esterase (NEGATIVE) Urine RBC (0-5) /HPF Urine WBC (0-5) /HPF Ur Squamous Epith Cells (<= Few) Amorphous Sediment /LPF Urine Bacteria (None Seen) /HPF Urine Casts /LPF Ur Microscopic Review Urine Culture Comments Stl Occult Blood (IFOB) (NEGATIVE) Urine Opiates Screen (NEGATIVE) Ur Oxycodone Screen (NEGATIVE) Urine Methadone Screen (NEGATIVE) Ur Propoxyphene Screen (NEGATIVE) Acetaminophen (10-30) ug/mL Ur Barbiturates Screen (NEGATIVE) Ur Tricyclics Screen (NEGATIVE) Ur Phencyclidine Scrn (NEGATIVE) Ur Amphetamine Screen (NEGATIVE) U Methamphetamines Scrn (NEGATIVE) U Benzodiazepines Scrn (NEGATIVE) Urine Cocaine Screen (NEGATIVE) U Cannabinoids Screen (NEGATIVE) Ethyl Alcohol mg/dL Serum Ketones MODERATE H (NEGATIVE) 03/01/18 03/01/18 03/01/18 Range/Units 04:00 04:00 01:00 WBC 12.0 H (4.8-10.8) x10^3/uL RBC 3.64 L (4.20-5.40) 10^6/uL Hgb 7.6 L (12.0-16.0) g/dL Hct 25.8 L (37.0-47.0) % MCV 70.9 L (81.0-99.0) fL MCH 20.9 L (27.0-31.0) pg MCHC 29.4 L (32.0-36.0) g/dL RDW 17.0 H (12.0-15.0) % Plt Count 446 (130-450) 10^3/uL MPV 7.7 L (7.9-10.8) fL Neut # (Auto) 10.3 H Lymph # (Auto) 1.1 L [place] # (Auto) 0.6 Eos # (Auto) 0.0 Baso # (Auto) 0.0 Absolute Nucleated RBC 0.01 Total Counted Band Neuts % (Manual) (0 - 10) % Reactive Lymphs % (Man) % Abnorm Lymph % (Manual) % Metamyelocytes % ( - 0) % Nucleated RBC % 0.1 Neutrophils # (Manual) (1.5-6.6) 10^3/uL Lymphocytes # (Manual) (1.5-3.5) 10^3/uL Monocytes # (Manual) (0.0-1.0) 10^3/uL Eosinophils # (Manual) (0-0.7) 10^3/uL Basophils # (Manual) (0-0.1) 10^3/uL Differential Comment Manual Slide Review Platelet Estimate (NORMAL) Platelet Morphology (NORMAL) RBC Morph Micro Appear (NORMAL) PT (9.9-12.6) secs INR (0.8-1.2) VBG pH 7.306 L (7.31-7.41) VBG pCO2 (41-51) mmHg VBG pO2 (25-47) mmHg VBG HCO3 (23-28) mmol/L VBG Total CO2 (24-29) mmol/L VBG O2 Saturation (60-80) % VBG Base Excess (-2 - +2) mmol/L Ionized Calcium 0.99 L (1.15-1.33) mmol/L Sodium 132 L (135-145) mmol/L Potassium 4.0 (3.5-5.0) mmol/L Chloride 99 L (101-111) mmol/L Carbon Dioxide 10 L* (21-32) mmol/L Anion Gap 23.0 H (6-13) BUN 39 H (6-20) mg/dL Creatinine 1.1 H (0.4-1.0) mg/dL Estimated GFR (MDRD) 56 L (>89) Glucose 188 H (70-100) mg/dL Glycated Hemoglobin (4.6-6.2) % Estim Average Glucose (70-100) Lactic Acid (0.5-2.2) mmol/L Calcium 7.7 L (8.5-10.3) mg/dL Phosphorus 1.9 L (2.5-4.6) mg/dL Magnesium 1.8 (1.7-2.8) mg/dL Iron (28-170) ug/dL TIBC (250-450) ug/dL % Saturation (20-50) % Transferrin (192-382) mg/dL Total Bilirubin 2.6 H (0.2-1.0) mg/dL AST 1689 H (10-42) IU/L ALT 613 H (10-60) IU/L Alkaline Phosphatase 249 H (42-121) IU/L Ammonia (7-35) umol/L Total Creatine Kinase (22-269) IU/L CK-MB (CK-2) (0.6-6.3) ng/mL Troponin I (<0.49) ng/mL Total Protein 5.6 L (6.7-8.2) g/dL Albumin 3.0 L (3.2-5.5) g/dL Globulin 2.6 (2.1-4.2) g/dL Albumin/Globulin Ratio 1.2 (1.0-2.2) Lipase (22-51) U/L TSH (0.34-5.60) uIU/mL Serum HCG, Qual Urine Color Urine Clarity (CLEAR) Urine pH (5.0-7.5) PH Ur Specific [place] (1.002-1.030) Urine Protein (NEGATIVE) mg/dL Urine Glucose (UA) (NEGATIVE) mg/dL Urine Ketones (NEGATIVE) mg/dL Urine Occult Blood (NEGATIVE) Urine Nitrite (NEGATIVE) Urine Bilirubin (NEGATIVE) Urine Urobilinogen (NORMAL) E.U./dL Ur Leukocyte Esterase (NEGATIVE) Urine RBC (0-5) /HPF Urine WBC (0-5) /HPF Ur Squamous Epith Cells (<= Few) Amorphous Sediment /LPF Urine Bacteria (None Seen) /HPF Urine Casts /LPF Ur Microscopic Review Urine Culture Comments Stl Occult Blood (IFOB) (NEGATIVE) Urine Opiates Screen (NEGATIVE) Ur Oxycodone Screen (NEGATIVE) Urine Methadone Screen (NEGATIVE) Ur Propoxyphene Screen (NEGATIVE) Acetaminophen (10-30) ug/mL Ur Barbiturates Screen (NEGATIVE) Ur Tricyclics Screen (NEGATIVE) Ur Phencyclidine Scrn (NEGATIVE) Ur Amphetamine Screen (NEGATIVE) U Methamphetamines Scrn (NEGATIVE) U Benzodiazepines Scrn (NEGATIVE) Urine Cocaine Screen (NEGATIVE) U Cannabinoids Screen (NEGATIVE) Ethyl Alcohol mg/dL Serum Ketones LARGE H (NEGATIVE) 03/01/18 03/01/18 03/01/18 Range/Units 00:05 00:04 00:04 WBC (4.8-10.8) x10^3/uL RBC (4.20-5.40) 10^6/uL Hgb (12.0-16.0) g/dL Hct (37.0-47.0) % MCV (81.0-99.0) fL MCH (27.0-31.0) pg MCHC (32.0-36.0) g/dL RDW (12.0-15.0) % Plt Count (130-450) 10^3/uL MPV (7.9-10.8) fL Neut # (Auto) Lymph # (Auto) [place] # (Auto) Eos # (Auto) Baso # (Auto) Absolute Nucleated RBC Total Counted Band Neuts % (Manual) (0 - 10) % Reactive Lymphs % (Man) % Abnorm Lymph % (Manual) % Metamyelocytes % ( - 0) % Nucleated RBC % Neutrophils # (Manual) (1.5-6.6) 10^3/uL Lymphocytes # (Manual) (1.5-3.5) 10^3/uL Monocytes # (Manual) (0.0-1.0) 10^3/uL Eosinophils # (Manual) (0-0.7) 10^3/uL Basophils # (Manual) (0-0.1) 10^3/uL Differential Comment Manual Slide Review Platelet Estimate (NORMAL) Platelet Morphology (NORMAL) RBC Morph Micro Appear (NORMAL) PT (9.9-12.6) secs INR (0.8-1.2) VBG pH 7.306 L (7.31-7.41) VBG pCO2 15.9 L (41-51) mmHg VBG pO2 88.3 H (25-47) mmHg VBG HCO3 7.8 L (23-28) mmol/L VBG Total CO2 8.2 L (24-29) mmol/L VBG O2 Saturation 96.1 H (60-80) % VBG Base Excess -16.7 L (-2 - +2) mmol/L Ionized Calcium (1.15-1.33) mmol/L Sodium 131 L (135-145) mmol/L Potassium 3.9 (3.5-5.0) mmol/L Chloride 99 L (101-111) mmol/L Carbon Dioxide 8 L* (21-32) mmol/L Anion Gap 24.0 H (6-13) BUN 45 H (6-20) mg/dL Creatinine 1.3 H (0.4-1.0) mg/dL Estimated GFR (MDRD) 46 L (>89) Glucose 279 H (70-100) mg/dL Glycated Hemoglobin (4.6-6.2) % Estim Average Glucose (70-100) Lactic Acid (0.5-2.2) mmol/L Calcium 6.7 L (8.5-10.3) mg/dL Phosphorus 1.9 L (2.5-4.6) mg/dL Magnesium (1.7-2.8) mg/dL Iron (28-170) ug/dL TIBC (250-450) ug/dL % Saturation (20-50) % Transferrin (192-382) mg/dL Total Bilirubin (0.2-1.0) mg/dL AST (10-42) IU/L ALT (10-60) IU/L Alkaline Phosphatase (42-121) IU/L Ammonia (7-35) umol/L Total Creatine Kinase (22-269) IU/L CK-MB (CK-2) (0.6-6.3) ng/mL Troponin I (<0.49) ng/mL Total Protein (6.7-8.2) g/dL Albumin 2.9 L (3.2-5.5) g/dL Globulin (2.1-4.2) g/dL Albumin/Globulin Ratio (1.0-2.2) Lipase (22-51) U/L TSH (0.34-5.60) uIU/mL Serum HCG, Qual Urine Color Urine Clarity (CLEAR) Urine pH (5.0-7.5) PH Ur Specific [place] (1.002-1.030) Urine Protein (NEGATIVE) mg/dL Urine Glucose (UA) (NEGATIVE) mg/dL Urine Ketones (NEGATIVE) mg/dL Urine Occult Blood (NEGATIVE) Urine Nitrite (NEGATIVE) Urine Bilirubin (NEGATIVE) Urine Urobilinogen (NORMAL) E.U./dL Ur Leukocyte Esterase (NEGATIVE) Urine RBC (0-5) /HPF Urine WBC (0-5) /HPF Ur Squamous Epith Cells (<= Few) Amorphous Sediment /LPF Urine Bacteria (None Seen) /HPF Urine Casts /LPF Ur Microscopic Review Urine Culture Comments Stl Occult Blood (IFOB) (NEGATIVE) Urine Opiates Screen (NEGATIVE) Ur Oxycodone Screen (NEGATIVE) Urine Methadone Screen (NEGATIVE) Ur Propoxyphene Screen (NEGATIVE) Acetaminophen (10-30) ug/mL Ur Barbiturates Screen (NEGATIVE) Ur Tricyclics Screen (NEGATIVE) Ur Phencyclidine Scrn (NEGATIVE) Ur Amphetamine Screen (NEGATIVE) U Methamphetamines Scrn (NEGATIVE) U Benzodiazepines Scrn (NEGATIVE) Urine Cocaine Screen (NEGATIVE) U Cannabinoids Screen (NEGATIVE) Ethyl Alcohol mg/dL Serum Ketones LARGE H (NEGATIVE) 02/28/18 02/28/18 02/28/18 Range/Units 22:16 22:16 21:00 WBC (4.8-10.8) x10^3/uL RBC (4.20-5.40) 10^6/uL Hgb (12.0-16.0) g/dL Hct (37.0-47.0) % MCV (81.0-99.0) fL MCH (27.0-31.0) pg MCHC (32.0-36.0) g/dL RDW (12.0-15.0) % Plt Count (130-450) 10^3/uL MPV (7.9-10.8) fL Neut # (Auto) Lymph # (Auto) [place] # (Auto) Eos # (Auto) Baso # (Auto) Absolute Nucleated RBC Total Counted Band Neuts % (Manual) (0 - 10) % Reactive Lymphs % (Man) % Abnorm Lymph % (Manual) % Metamyelocytes % ( - 0) % Nucleated RBC % Neutrophils # (Manual) (1.5-6.6) 10^3/uL Lymphocytes # (Manual) (1.5-3.5) 10^3/uL Monocytes # (Manual) (0.0-1.0) 10^3/uL Eosinophils # (Manual) (0-0.7) 10^3/uL Basophils # (Manual) (0-0.1) 10^3/uL Differential Comment Manual Slide Review Platelet Estimate (NORMAL) Platelet Morphology (NORMAL) RBC Morph Micro Appear (NORMAL) PT 12.2 (9.9-12.6) secs INR 1.1 (0.8-1.2) VBG pH (7.31-7.41) VBG pCO2 (41-51) mmHg VBG pO2 (25-47) mmHg VBG HCO3 (23-28) mmol/L VBG Total CO2 (24-29) mmol/L VBG O2 Saturation (60-80) % VBG Base Excess (-2 - +2) mmol/L Ionized Calcium (1.15-1.33) mmol/L Sodium (135-145) mmol/L Potassium (3.5-5.0) mmol/L Chloride (101-111) mmol/L Carbon Dioxide (21-32) mmol/L Anion Gap (6-13) BUN (6-20) mg/dL Creatinine (0.4-1.0) mg/dL Estimated GFR (MDRD) (>89) Glucose 491 H (70-100) mg/dL Glycated Hemoglobin (4.6-6.2) % Estim Average Glucose (70-100) Lactic Acid (0.5-2.2) mmol/L Calcium (8.5-10.3) mg/dL Phosphorus (2.5-4.6) mg/dL Magnesium (1.7-2.8) mg/dL Iron (28-170) ug/dL TIBC (250-450) ug/dL % Saturation (20-50) % Transferrin (192-382) mg/dL Total Bilirubin (0.2-1.0) mg/dL AST (10-42) IU/L ALT (10-60) IU/L Alkaline Phosphatase (42-121) IU/L Ammonia (7-35) umol/L Total Creatine Kinase (22-269) IU/L CK-MB (CK-2) (0.6-6.3) ng/mL Troponin I < 0.04 (<0.49) ng/mL Total Protein (6.7-8.2) g/dL Albumin (3.2-5.5) g/dL Globulin (2.1-4.2) g/dL Albumin/Globulin Ratio (1.0-2.2) Lipase (22-51) U/L TSH (0.34-5.60) uIU/mL Serum HCG, Qual Urine Color Urine Clarity (CLEAR) Urine pH (5.0-7.5) PH Ur Specific [place] (1.002-1.030) Urine Protein (NEGATIVE) mg/dL Urine Glucose (UA) (NEGATIVE) mg/dL Urine Ketones (NEGATIVE) mg/dL Urine Occult Blood (NEGATIVE) Urine Nitrite (NEGATIVE) Urine Bilirubin (NEGATIVE) Urine Urobilinogen (NORMAL) E.U./dL Ur Leukocyte Esterase (NEGATIVE) Urine RBC (0-5) /HPF Urine WBC (0-5) /HPF Ur Squamous Epith Cells (<= Few) Amorphous Sediment /LPF Urine Bacteria (None Seen) /HPF Urine Casts /LPF Ur Microscopic Review Urine Culture Comments Stl Occult Blood (IFOB) (NEGATIVE) Urine Opiates Screen (NEGATIVE) Ur Oxycodone Screen (NEGATIVE) Urine Methadone Screen (NEGATIVE) Ur Propoxyphene Screen (NEGATIVE) Acetaminophen (10-30) ug/mL Ur Barbiturates Screen (NEGATIVE) Ur Tricyclics Screen (NEGATIVE) Ur Phencyclidine Scrn (NEGATIVE) Ur Amphetamine Screen (NEGATIVE) U Methamphetamines Scrn (NEGATIVE) U Benzodiazepines Scrn (NEGATIVE) Urine Cocaine Screen (NEGATIVE) U Cannabinoids Screen (NEGATIVE) Ethyl Alcohol mg/dL Serum Ketones (NEGATIVE) 02/28/18 02/28/18 02/28/18 Range/Units 21:00 21:00 20:20 WBC (4.8-10.8) x10^3/uL RBC (4.20-5.40) 10^6/uL Hgb (12.0-16.0) g/dL Hct (37.0-47.0) % MCV (81.0-99.0) fL MCH (27.0-31.0) pg MCHC (32.0-36.0) g/dL RDW (12.0-15.0) % Plt Count (130-450) 10^3/uL MPV (7.9-10.8) fL Neut # (Auto) Lymph # (Auto) [place] # (Auto) Eos # (Auto) Baso # (Auto) Absolute Nucleated RBC Total Counted Band Neuts % (Manual) (0 - 10) % Reactive Lymphs % (Man) % Abnorm Lymph % (Manual) % Metamyelocytes % ( - 0) % Nucleated RBC % Neutrophils # (Manual) (1.5-6.6) 10^3/uL Lymphocytes # (Manual) (1.5-3.5) 10^3/uL Monocytes # (Manual) (0.0-1.0) 10^3/uL Eosinophils # (Manual) (0-0.7) 10^3/uL Basophils # (Manual) (0-0.1) 10^3/uL Differential Comment Manual Slide Review Platelet Estimate (NORMAL) Platelet Morphology (NORMAL) RBC Morph Micro Appear (NORMAL) PT (9.9-12.6) secs INR (0.8-1.2) VBG pH (7.31-7.41) VBG pCO2 (41-51) mmHg VBG pO2 (25-47) mmHg VBG HCO3 (23-28) mmol/L VBG Total CO2 (24-29) mmol/L VBG O2 Saturation (60-80) % VBG Base Excess (-2 - +2) mmol/L Ionized Calcium (1.15-1.33) mmol/L Sodium (135-145) mmol/L Potassium (3.5-5.0) mmol/L Chloride (101-111) mmol/L Carbon Dioxide (21-32) mmol/L Anion Gap (6-13) BUN (6-20) mg/dL Creatinine (0.4-1.0) mg/dL Estimated GFR (MDRD) (>89) Glucose 688 H* (70-100) mg/dL Glycated Hemoglobin (4.6-6.2) % Estim Average Glucose (70-100) Lactic Acid 1.6 (0.5-2.2) mmol/L Calcium (8.5-10.3) mg/dL Phosphorus (2.5-4.6) mg/dL Magnesium (1.7-2.8) mg/dL Iron (28-170) ug/dL TIBC (250-450) ug/dL % Saturation (20-50) % Transferrin (192-382) mg/dL Total Bilirubin (0.2-1.0) mg/dL AST (10-42) IU/L ALT (10-60) IU/L Alkaline Phosphatase (42-121) IU/L Ammonia (7-35) umol/L Total Creatine Kinase (22-269) IU/L CK-MB (CK-2) (0.6-6.3) ng/mL Troponin I (<0.49) ng/mL Total Protein (6.7-8.2) g/dL Albumin (3.2-5.5) g/dL Globulin (2.1-4.2) g/dL Albumin/Globulin Ratio (1.0-2.2) Lipase (22-51) U/L TSH 0.72 (0.34-5.60) uIU/mL Serum HCG, Qual Urine Color Urine Clarity (CLEAR) Urine pH (5.0-7.5) PH Ur Specific [place] (1.002-1.030) Urine Protein (NEGATIVE) mg/dL Urine Glucose (UA) (NEGATIVE) mg/dL Urine Ketones (NEGATIVE) mg/dL Urine Occult Blood (NEGATIVE) Urine Nitrite (NEGATIVE) Urine Bilirubin (NEGATIVE) Urine Urobilinogen (NORMAL) E.U./dL Ur Leukocyte Esterase (NEGATIVE) Urine RBC (0-5) /HPF Urine WBC (0-5) /HPF Ur Squamous Epith Cells (<= Few) Amorphous Sediment /LPF Urine Bacteria (None Seen) /HPF Urine Casts /LPF Ur Microscopic Review Urine Culture Comments Stl Occult Blood (IFOB) (NEGATIVE) Urine Opiates Screen (NEGATIVE) Ur Oxycodone Screen (NEGATIVE) Urine Methadone Screen (NEGATIVE) Ur Propoxyphene Screen (NEGATIVE) Acetaminophen (10-30) ug/mL Ur Barbiturates Screen (NEGATIVE) Ur Tricyclics Screen (NEGATIVE) Ur Phencyclidine Scrn (NEGATIVE) Ur Amphetamine Screen (NEGATIVE) U Methamphetamines Scrn (NEGATIVE) U Benzodiazepines Scrn (NEGATIVE) Urine Cocaine Screen (NEGATIVE) U Cannabinoids Screen (NEGATIVE) Ethyl Alcohol mg/dL Serum Ketones (NEGATIVE) 02/28/18 02/28/18 02/28/18 Range/Units 20:20 20:20 20:05 WBC (4.8-10.8) x10^3/uL RBC (4.20-5.40) 10^6/uL Hgb (12.0-16.0) g/dL Hct (37.0-47.0) % MCV (81.0-99.0) fL MCH (27.0-31.0) pg MCHC (32.0-36.0) g/dL RDW (12.0-15.0) % Plt Count (130-450) 10^3/uL MPV (7.9-10.8) fL Neut # (Auto) Lymph # (Auto) [place] # (Auto) Eos # (Auto) Baso # (Auto) Absolute Nucleated RBC Total Counted Band Neuts % (Manual) (0 - 10) % Reactive Lymphs % (Man) % Abnorm Lymph % (Manual) % Metamyelocytes % ( - 0) % Nucleated RBC % Neutrophils # (Manual) (1.5-6.6) 10^3/uL Lymphocytes # (Manual) (1.5-3.5) 10^3/uL Monocytes # (Manual) (0.0-1.0) 10^3/uL Eosinophils # (Manual) (0-0.7) 10^3/uL Basophils # (Manual) (0-0.1) 10^3/uL Differential Comment Manual Slide Review Platelet Estimate (NORMAL) Platelet Morphology (NORMAL) RBC Morph Micro Appear (NORMAL) PT (9.9-12.6) secs INR (0.8-1.2) VBG pH 6.930 L 6.930 L (7.31-7.41) VBG pCO2 13.6 L (41-51) mmHg VBG pO2 130.7 H (25-47) mmHg VBG HCO3 2.8 L (23-28) mmol/L VBG Total CO2 3.2 L (24-29) mmol/L VBG O2 Saturation 97.1 H (60-80) % VBG Base Excess -27.9 L (-2 - +2) mmol/L Ionized Calcium 1.12 L (1.15-1.33) mmol/L Sodium (135-145) mmol/L Potassium (3.5-5.0) mmol/L Chloride (101-111) mmol/L Carbon Dioxide (21-32) mmol/L Anion Gap (6-13) BUN (6-20) mg/dL Creatinine (0.4-1.0) mg/dL Estimated GFR (MDRD) (>89) Glucose (70-100) mg/dL Glycated Hemoglobin (4.6-6.2) % Estim Average Glucose (70-100) Lactic Acid (0.5-2.2) mmol/L Calcium (8.5-10.3) mg/dL Phosphorus (2.5-4.6) mg/dL Magnesium (1.7-2.8) mg/dL Iron (28-170) ug/dL TIBC (250-450) ug/dL % Saturation (20-50) % Transferrin (192-382) mg/dL Total Bilirubin (0.2-1.0) mg/dL AST (10-42) IU/L ALT (10-60) IU/L Alkaline Phosphatase (42-121) IU/L Ammonia (7-35) umol/L Total Creatine Kinase (22-269) IU/L CK-MB (CK-2) (0.6-6.3) ng/mL Troponin I (<0.49) ng/mL Total Protein (6.7-8.2) g/dL Albumin (3.2-5.5) g/dL Globulin (2.1-4.2) g/dL Albumin/Globulin Ratio (1.0-2.2) Lipase (22-51) U/L TSH (0.34-5.60) uIU/mL Serum HCG, Qual NEGATIVE Urine Color Urine Clarity (CLEAR) Urine pH (5.0-7.5) PH Ur Specific Tama (1.002-1.030) Urine Protein (NEGATIVE) mg/dL Urine Glucose (UA) (NEGATIVE) mg/dL Urine Ketones (NEGATIVE) mg/dL Urine Occult Blood (NEGATIVE) Urine Nitrite (NEGATIVE) Urine Bilirubin (NEGATIVE) Urine Urobilinogen (NORMAL) E.U./dL Ur Leukocyte Esterase (NEGATIVE) Urine RBC (0-5) /HPF Urine WBC (0-5) /HPF Ur Squamous Epith Cells (<= Few) Amorphous Sediment /LPF Urine Bacteria (None Seen) /HPF Urine Casts /LPF Ur Microscopic Review Urine Culture Comments Stl Occult Blood (IFOB) (NEGATIVE) Urine Opiates Screen (NEGATIVE) Ur Oxycodone Screen (NEGATIVE) Urine Methadone Screen (NEGATIVE) Ur Propoxyphene Screen (NEGATIVE) Acetaminophen (10-30) ug/mL Ur Barbiturates Screen (NEGATIVE) Ur Tricyclics Screen (NEGATIVE) Ur Phencyclidine Scrn (NEGATIVE) Ur Amphetamine Screen (NEGATIVE) U Methamphetamines Scrn (NEGATIVE) U Benzodiazepines Scrn (NEGATIVE) Urine Cocaine Screen (NEGATIVE) U Cannabinoids Screen (NEGATIVE) Ethyl Alcohol mg/dL Serum Ketones (NEGATIVE) 02/28/18 02/28/18 02/28/18 Range/Units 20:05 19:30 19:30 WBC (4.8-10.8) x10^3/uL RBC (4.20-5.40) 10^6/uL Hgb (12.0-16.0) g/dL Hct (37.0-47.0) % MCV (81.0-99.0) fL MCH (27.0-31.0) pg MCHC (32.0-36.0) g/dL RDW (12.0-15.0) % Plt Count (130-450) 10^3/uL MPV (7.9-10.8) fL Neut # (Auto) Lymph # (Auto) [place] # (Auto) Eos # (Auto) Baso # (Auto) Absolute Nucleated RBC Total Counted Band Neuts % (Manual) (0 - 10) % Reactive Lymphs % (Man) % Abnorm Lymph % (Manual) % Metamyelocytes % ( - 0) % Nucleated RBC % Neutrophils # (Manual) (1.5-6.6) 10^3/uL Lymphocytes # (Manual) (1.5-3.5) 10^3/uL Monocytes # (Manual) (0.0-1.0) 10^3/uL Eosinophils # (Manual) (0-0.7) 10^3/uL Basophils # (Manual) (0-0.1) 10^3/uL Differential Comment Manual Slide Review Platelet Estimate (NORMAL) Platelet Morphology (NORMAL) RBC Morph Micro Appear (NORMAL) PT (9.9-12.6) secs INR (0.8-1.2) VBG pH (7.31-7.41) VBG pCO2 (41-51) mmHg VBG pO2 (25-47) mmHg VBG HCO3 (23-28) mmol/L VBG Total CO2 (24-29) mmol/L VBG O2 Saturation (60-80) % VBG Base Excess (-2 - +2) mmol/L Ionized Calcium (1.15-1.33) mmol/L Sodium 118 L* (135-145) mmol/L Potassium 5.4 H (3.5-5.0) mmol/L Chloride 83 L (101-111) mmol/L Carbon Dioxide < 6 L* (21-32) mmol/L Anion Gap 29.0 H (6-13) BUN 49 H (6-20) mg/dL Creatinine 1.5 H (0.4-1.0) mg/dL Estimated GFR (MDRD) 39 L (>89) Glucose 787 H* (70-100) mg/dL Glycated Hemoglobin (4.6-6.2) % Estim Average Glucose (70-100) Lactic Acid (0.5-2.2) mmol/L Calcium 7.7 L (8.5-10.3) mg/dL Phosphorus (2.5-4.6) mg/dL Magnesium 2.5 (1.7-2.8) mg/dL Iron (28-170) ug/dL TIBC (250-450) ug/dL % Saturation (20-50) % Transferrin (192-382) mg/dL Total Bilirubin (0.2-1.0) mg/dL AST (10-42) IU/L ALT (10-60) IU/L Alkaline Phosphatase (42-121) IU/L Ammonia (7-35) umol/L Total Creatine Kinase (22-269) IU/L CK-MB (CK-2) (0.6-6.3) ng/mL Troponin I (<0.49) ng/mL Total Protein (6.7-8.2) g/dL Albumin (3.2-5.5) g/dL Globulin (2.1-4.2) g/dL Albumin/Globulin Ratio (1.0-2.2) Lipase (22-51) U/L TSH (0.34-5.60) uIU/mL Serum HCG, Qual Urine Color LT. YELLOW Urine Clarity CLEAR (CLEAR) Urine pH 5.5 (5.0-7.5) PH Ur Specific [place]ama 1.025 (1.002-1.030) Urine Protein TRACE (NEGATIVE) mg/dL Urine Glucose (UA) >=1000 H (NEGATIVE) mg/dL Urine Ketones >=80 H (NEGATIVE) mg/dL Urine Occult Blood SMALL H (NEGATIVE) Urine Nitrite NEGATIVE (NEGATIVE) Urine Bilirubin NEGATIVE (NEGATIVE) Urine Urobilinogen 0.2 (NORMAL) (NORMAL) E.U./dL Ur Leukocyte Esterase NEGATIVE (NEGATIVE) Urine RBC 0-5 (0-5) /HPF Urine WBC 0-3 (0-5) /HPF Ur Squamous Epith Cells RARE Squamous (<= Few) Amorphous Sediment Few /LPF Urine Bacteria Rare (None Seen) /HPF Urine Casts 0-2 Granular Casts /LPF Ur Microscopic Review INDICATED Urine Culture Comments NOT INDICATED Stl Occult Blood (IFOB) (NEGATIVE) Urine Opiates Screen POSITIVE H (NEGATIVE) Ur Oxycodone Screen NEGATIVE (NEGATIVE) Urine Methadone Screen NEGATIVE (NEGATIVE) Ur Propoxyphene Screen NEGATIVE (NEGATIVE) Acetaminophen (10-30) ug/mL Ur Barbiturates Screen NEGATIVE (NEGATIVE) Ur Tricyclics Screen NEGATIVE (NEGATIVE) Ur Phencyclidine Scrn NEGATIVE (NEGATIVE) Ur Amphetamine Screen NEGATIVE (NEGATIVE) U Methamphetamines Scrn POSITIVE H (NEGATIVE) U Benzodiazepines Scrn NEGATIVE (NEGATIVE) Urine Cocaine Screen NEGATIVE (NEGATIVE) U Cannabinoids Screen NEGATIVE (NEGATIVE) Ethyl Alcohol mg/dL Serum Ketones SMALL H (NEGATIVE) 02/28/18 02/28/18 02/28/18 Range/Units 17:22 17:22 15:15 WBC (4.8-10.8) x10^3/uL RBC (4.20-5.40) 10^6/uL Hgb (12.0-16.0) g/dL Hct (37.0-47.0) % MCV (81.0-99.0) fL MCH (27.0-31.0) pg MCHC (32.0-36.0) g/dL RDW (12.0-15.0) % Plt Count (130-450) 10^3/uL MPV (7.9-10.8) fL Neut # (Auto) Lymph # (Auto) [place] # (Auto) Eos # (Auto) Baso # (Auto) Absolute Nucleated RBC Total Counted Band Neuts % (Manual) (0 - 10) % Reactive Lymphs % (Man) % Abnorm Lymph % (Manual) % Metamyelocytes % ( - 0) % Nucleated RBC % Neutrophils # (Manual) (1.5-6.6) 10^3/uL Lymphocytes # (Manual) (1.5-3.5) 10^3/uL Monocytes # (Manual) (0.0-1.0) 10^3/uL Eosinophils # (Manual) (0-0.7) 10^3/uL Basophils # (Manual) (0-0.1) 10^3/uL Differential Comment Manual Slide Review Platelet Estimate (NORMAL) Platelet Morphology (NORMAL) RBC Morph Micro Appear (NORMAL) PT (9.9-12.6) secs INR (0.8-1.2) VBG pH (7.31-7.41) VBG pCO2 (41-51) mmHg VBG pO2 (25-47) mmHg VBG HCO3 (23-28) mmol/L VBG Total CO2 (24-29) mmol/L VBG O2 Saturation (60-80) % VBG Base Excess (-2 - +2) mmol/L Ionized Calcium (1.15-1.33) mmol/L Sodium (135-145) mmol/L Potassium (3.5-5.0) mmol/L Chloride (101-111) mmol/L Carbon Dioxide (21-32) mmol/L Anion Gap (6-13) BUN (6-20) mg/dL Creatinine (0.4-1.0) mg/dL Estimated GFR (MDRD) (>89) Glucose 917 H* (70-100) mg/dL Glycated Hemoglobin 10.5 H (4.6-6.2) % Estim Average Glucose 255 H (70-100) Lactic Acid (0.5-2.2) mmol/L Calcium (8.5-10.3) mg/dL Phosphorus (2.5-4.6) mg/dL Magnesium (1.7-2.8) mg/dL Iron (28-170) ug/dL TIBC (250-450) ug/dL % Saturation (20-50) % Transferrin (192-382) mg/dL Total Bilirubin (0.2-1.0) mg/dL AST (10-42) IU/L ALT (10-60) IU/L Alkaline Phosphatase (42-121) IU/L Ammonia 112.3 H* (7-35) umol/L Total Creatine Kinase (22-269) IU/L CK-MB (CK-2) (0.6-6.3) ng/mL Troponin I (<0.49) ng/mL Total Protein (6.7-8.2) g/dL Albumin (3.2-5.5) g/dL Globulin (2.1-4.2) g/dL Albumin/Globulin Ratio (1.0-2.2) Lipase (22-51) U/L TSH (0.34-5.60) uIU/mL Serum HCG, Qual Urine Color Urine Clarity (CLEAR) Urine pH (5.0-7.5) PH Ur Specific [place] (1.002-1.030) Urine Protein (NEGATIVE) mg/dL Urine Glucose (UA) (NEGATIVE) mg/dL Urine Ketones (NEGATIVE) mg/dL Urine Occult Blood (NEGATIVE) Urine Nitrite (NEGATIVE) Urine Bilirubin (NEGATIVE) Urine Urobilinogen (NORMAL) E.U./dL Ur Leukocyte Esterase (NEGATIVE) Urine RBC (0-5) /HPF Urine WBC (0-5) /HPF Ur Squamous Epith Cells (<= Few) Amorphous Sediment /LPF Urine Bacteria (None Seen) /HPF Urine Casts /LPF Ur Microscopic Review Urine Culture Comments Stl Occult Blood (IFOB) (NEGATIVE) Urine Opiates Screen (NEGATIVE) Ur Oxycodone Screen (NEGATIVE) Urine Methadone Screen (NEGATIVE) Ur Propoxyphene Screen (NEGATIVE) Acetaminophen (10-30) ug/mL Ur Barbiturates Screen (NEGATIVE) Ur Tricyclics Screen (NEGATIVE) Ur Phencyclidine Scrn (NEGATIVE) Ur Amphetamine Screen (NEGATIVE) U Methamphetamines Scrn (NEGATIVE) U Benzodiazepines Scrn (NEGATIVE) Urine Cocaine Screen (NEGATIVE) U Cannabinoids Screen (NEGATIVE) Ethyl Alcohol mg/dL Serum Ketones (NEGATIVE) 02/28/18 02/28/18 02/28/18 Range/Units 15:15 15:15 15:15 WBC (4.8-10.8) x10^3/uL RBC (4.20-5.40) 10^6/uL Hgb (12.0-16.0) g/dL Hct (37.0-47.0) % MCV (81.0-99.0) fL MCH (27.0-31.0) pg MCHC (32.0-36.0) g/dL RDW (12.0-15.0) % Plt Count (130-450) 10^3/uL MPV (7.9-10.8) fL Neut # (Auto) Lymph # (Auto) [place] # (Auto) Eos # (Auto) Baso # (Auto) Absolute Nucleated RBC Total Counted Band Neuts % (Manual) (0 - 10) % Reactive Lymphs % (Man) % Abnorm Lymph % (Manual) % Metamyelocytes % ( - 0) % Nucleated RBC % Neutrophils # (Manual) (1.5-6.6) 10^3/uL Lymphocytes # (Manual) (1.5-3.5) 10^3/uL Monocytes # (Manual) (0.0-1.0) 10^3/uL Eosinophils # (Manual) (0-0.7) 10^3/uL Basophils # (Manual) (0-0.1) 10^3/uL Differential Comment Manual Slide Review Platelet Estimate (NORMAL) Platelet Morphology (NORMAL) RBC Morph Micro Appear (NORMAL) PT (9.9-12.6) secs INR (0.8-1.2) VBG pH 6.777 L (7.31-7.41) VBG pCO2 13.4 L (41-51) mmHg VBG pO2 102.7 H (25-47) mmHg VBG HCO3 1.9 L (23-28) mmol/L VBG Total CO2 2.3 L (24-29) mmol/L VBG O2 Saturation 92.5 H (60-80) % VBG Base Excess -31.8 L (-2 - +2) mmol/L Ionized Calcium (1.15-1.33) mmol/L Sodium (135-145) mmol/L Potassium (3.5-5.0) mmol/L Chloride (101-111) mmol/L Carbon Dioxide (21-32) mmol/L Anion Gap (6-13) BUN (6-20) mg/dL Creatinine (0.4-1.0) mg/dL Estimated GFR (MDRD) (>89) Glucose (70-100) mg/dL Glycated Hemoglobin (4.6-6.2) % Estim Average Glucose (70-100) Lactic Acid (0.5-2.2) mmol/L Calcium (8.5-10.3) mg/dL Phosphorus (2.5-4.6) mg/dL Magnesium (1.7-2.8) mg/dL Iron (28-170) ug/dL TIBC (250-450) ug/dL % Saturation (20-50) % Transferrin (192-382) mg/dL Total Bilirubin (0.2-1.0) mg/dL AST (10-42) IU/L ALT (10-60) IU/L Alkaline Phosphatase (42-121) IU/L Ammonia (7-35) umol/L Total Creatine Kinase (22-269) IU/L CK-MB (CK-2) 3.3 (0.6-6.3) ng/mL Troponin I < 0.04 (<0.49) ng/mL Total Protein (6.7-8.2) g/dL Albumin (3.2-5.5) g/dL Globulin (2.1-4.2) g/dL Albumin/Globulin Ratio (1.0-2.2) Lipase (22-51) U/L TSH (0.34-5.60) uIU/mL Serum HCG, Qual Urine Color Urine Clarity (CLEAR) Urine pH (5.0-7.5) PH Ur Specific [place] (1.002-1.030) Urine Protein (NEGATIVE) mg/dL Urine Glucose (UA) (NEGATIVE) mg/dL Urine Ketones (NEGATIVE) mg/dL Urine Occult Blood (NEGATIVE) Urine Nitrite (NEGATIVE) Urine Bilirubin (NEGATIVE) Urine Urobilinogen (NORMAL) E.U./dL Ur Leukocyte Esterase (NEGATIVE) Urine RBC (0-5) /HPF Urine WBC (0-5) /HPF Ur Squamous Epith Cells (<= Few) Amorphous Sediment /LPF Urine Bacteria (None Seen) /HPF Urine Casts /LPF Ur Microscopic Review Urine Culture Comments Stl Occult Blood (IFOB) (NEGATIVE) Urine Opiates Screen (NEGATIVE) Ur Oxycodone Screen (NEGATIVE) Urine Methadone Screen (NEGATIVE) Ur Propoxyphene Screen (NEGATIVE) Acetaminophen < 10 L (10-30) ug/mL Ur Barbiturates Screen (NEGATIVE) Ur Tricyclics Screen (NEGATIVE) Ur Phencyclidine Scrn (NEGATIVE) Ur Amphetamine Screen (NEGATIVE) U Methamphetamines Scrn (NEGATIVE) U Benzodiazepines Scrn (NEGATIVE) Urine Cocaine Screen (NEGATIVE) U Cannabinoids Screen (NEGATIVE) Ethyl Alcohol mg/dL Serum Ketones (NEGATIVE) 02/28/18 02/28/18 Range/Units 15:15 15:15 WBC 17.0 H (4.8-10.8) x10^3/uL RBC 4.74 (4.20-5.40) 10^6/uL Hgb 10.2 L (12.0-16.0) g/dL Hct 40.7 (37.0-47.0) % MCV 85.9 (81.0-99.0) fL MCH 21.5 L (27.0-31.0) pg MCHC 25.0 L (32.0-36.0) g/dL RDW 18.2 H (12.0-15.0) % Plt Count 632 H (130-450) 10^3/uL MPV 9.1 (7.9-10.8) fL Neut # (Auto) Not Reportable Lymph # (Auto) Not Reportable [place] # (Auto) Not Reportable Eos # (Auto) Not Reportable Baso # (Auto) Not Reportable Absolute Nucleated RBC Not Reportable Total Counted 100 Band Neuts % (Manual) 4 (0 - 10) % Reactive Lymphs % (Man) 3 % Abnorm Lymph % (Manual) 0 % Metamyelocytes % 2 H ( - 0) % Nucleated RBC % Not Reportable Neutrophils # (Manual) 11.2 H (1.5-6.6) 10^3/uL Lymphocytes # (Manual) 4.6 H (1.5-3.5) 10^3/uL Monocytes # (Manual) 0.5 (0.0-1.0) 10^3/uL Eosinophils # (Manual) 0.0 (0-0.7) 10^3/uL Basophils # (Manual) 0.3 H (0-0.1) 10^3/uL Differential Comment MANUAL DIFFERENTIAL Manual Slide Review Indicated Platelet Estimate INCREASED (>450,000) (NORMAL) Platelet Morphology 1+ LARGE PLATELETS (NORMAL) RBC Morph Micro Appear 1+ SPHEROCYTES (NORMAL) PT (9.9-12.6) secs INR (0.8-1.2) VBG pH (7.31-7.41) VBG pCO2 (41-51) mmHg VBG pO2 (25-47) mmHg VBG HCO3 (23-28) mmol/L VBG Total CO2 (24-29) mmol/L VBG O2 Saturation (60-80) % VBG Base Excess (-2 - +2) mmol/L Ionized Calcium (1.15-1.33) mmol/L Sodium 123 L (135-145) mmol/L Potassium 5.3 H (3.5-5.0) mmol/L Chloride 82 L (101-111) mmol/L Carbon Dioxide < 6 L* (21-32) mmol/L Anion Gap 35.0 H (6-13) BUN 47 H (6-20) mg/dL Creatinine 1.4 H (0.4-1.0) mg/dL Estimated GFR (MDRD) 43 L (>89) Glucose 877 H* (70-100) mg/dL Glycated Hemoglobin (4.6-6.2) % Estim Average Glucose (70-100) Lactic Acid (0.5-2.2) mmol/L Calcium 8.4 L (8.5-10.3) mg/dL Phosphorus 10.3 H (2.5-4.6) mg/dL Magnesium 3.2 H (1.7-2.8) mg/dL Iron (28-170) ug/dL TIBC (250-450) ug/dL % Saturation (20-50) % Transferrin (192-382) mg/dL Total Bilirubin 1.8 H (0.2-1.0) mg/dL AST 2529 H (10-42) IU/L ALT 354 H (10-60) IU/L Alkaline Phosphatase 282 H (42-121) IU/L Ammonia (7-35) umol/L Total Creatine Kinase 47 (22-269) IU/L CK-MB (CK-2) (0.6-6.3) ng/mL Troponin I (<0.49) ng/mL Total Protein 8.4 H (6.7-8.2) g/dL Albumin 4.1 (3.2-5.5) g/dL Globulin 4.3 H (2.1-4.2) g/dL Albumin/Globulin Ratio 1.0 (1.0-2.2) Lipase 21 L (22-51) U/L TSH (0.34-5.60) uIU/mL Serum HCG, Qual Urine Color Urine Clarity (CLEAR) Urine pH (5.0-7.5) PH Ur Specific [place] (1.002-1.030) Urine Protein (NEGATIVE) mg/dL Urine Glucose (UA) (NEGATIVE) mg/dL Urine Ketones (NEGATIVE) mg/dL Urine Occult Blood (NEGATIVE) Urine Nitrite (NEGATIVE) Urine Bilirubin (NEGATIVE) Urine Urobilinogen (NORMAL) E.U./dL Ur Leukocyte Esterase (NEGATIVE) Urine RBC (0-5) /HPF Urine WBC (0-5) /HPF Ur Squamous Epith Cells (<= Few) Amorphous Sediment /LPF Urine Bacteria (None Seen) /HPF Urine Casts /LPF Ur Microscopic Review Urine Culture Comments Stl Occult Blood (IFOB) (NEGATIVE) Urine Opiates Screen (NEGATIVE) Ur Oxycodone Screen (NEGATIVE) Urine Methadone Screen (NEGATIVE) Ur Propoxyphene Screen (NEGATIVE) Acetaminophen (10-30) ug/mL Ur Barbiturates Screen (NEGATIVE) Ur Tricyclics Screen (NEGATIVE) Ur Phencyclidine Scrn (NEGATIVE) Ur Amphetamine Screen (NEGATIVE) U Methamphetamines Scrn (NEGATIVE) U Benzodiazepines Scrn (NEGATIVE) Urine Cocaine Screen (NEGATIVE) U Cannabinoids Screen (NEGATIVE) Ethyl Alcohol 6.1 mg/dL Serum Ketones SMALL H (NEGATIVE) Sepsis Event Note (H) - Sepsis Criteria Sepsis Criteria: Recorded Temperature greater than 38.3C or Less than 36C, Recorded Respiratory Rate greater than 20, WBC count greater than 12,000 or less than 4000, FRINGE KNOTTER: altered consciousness (unrelated to primary neuro pathology) Assessment/Plan - Problem List (1) Acidosis due to type 1 diabetes mellitus Impression: Still present. Carbon dioxide was 10 this morning. When she came into the hospital she was less than 6. At 1:00 in the morning her pH is 7.3 on venous blood gas. When she first came in she was 6.77. So she is slowly improving but still acidotic. We are treating her acidosis to uncontrolled diabetes. Lack of insulin and a type I diabetic. But we are still closely monitoring her for signs and symptoms of infection. Severe, oral mucosa reflects that. Creatinine only mildly elevated at 1.4 for her. We will continue to monitor closely. Anticipate 6-7 L of hydration will be given. I will transition her to food. Resume her Lantus and sliding scale insulin as well as fixed dose insulin before meals. If needed, I may need to continue her a low-dose insulin drip for a few hours to make sure she does not rebound back into further uncontrolled glucose. (2) Altered mental status Conclusion/Plan: From her DKA and metabolic encephalopathy. We will check urine tox screen for other substances.Her tox screen is positive for methamphetamines, opiates. Ketones continue to be moderate. Ammonia level is not elevated this morning. Yesterday she was 112.3. This morning she is 14. So part of her altered mental status yesterday could have been from hepatic encephalopathy with these elevated liver enzymes. Qualifiers: Altered mental status type: stupor Qualified Code(s): R40.1 - Stupor (3) Anemia Conclusion/Plan: Chronic. Combined factors of iron deficiency anemia, nutritional, substance abuse. Laboratory Tests 03/01/18 08:55 Iron 8 L TIBC 315 % Saturation 3 L Transferrin 225 Start oral iron tablets. (4) Elevated LFTs Conclusion/Plan: Previous hepatitis serology has been negative for AB and C. We will repeat serology. Check ultrasound. (5) SIRS. Conclusion/Plan: She met criteria last night with regards to a temperature greater than 38, a respiratory rate greater than 20, a white cell count greater than 12,000 and she had encephalopathy. Blood cultures were received and those are pending. Urinalysis yesterday did not have a culture done because she did not meet indications. This woman is at risk for endocarditis because of her IV drug abuse. We will continue to monitor. She is not on antibiotics at this time.
[2018-03-01] MEDS: INSULIN GLARGINE 300 UNIT/3 ML PEN SUBQ SCH ×2 (15:21→20:40)
[2018-03-01] MEDS: AMITRIPTYLINE 25 MG TABLET PO SCH ×2 (15:26→20:40)
[2018-03-01] MEDS: METOCLOPRAMIDE 10 MG TABLET PO SCH ×2 (16:22→20:40)
[2018-03-01] MEDS: INSULIN ASPART 300 UNIT/3 ML PEN SUBQ SCH ×2 (20:05→20:38)
[2018-03-01] MEDS: CILOSTAZOL 100 MG TABLET PO SCH (20:39)
[2018-03-01] MEDS: cloNIDine 0.1 MG TABLET PO SCH (20:40)
[2018-03-01] MEDS: METOPROLOL SUCCINATE 25 MG TABLET PO SCH (20:40)
[2018-03-01] MEDS ORDERED: INSULIN GLARGINE 300 UNIT/3 ML PEN SUBQ SCH (21:00)
[2018-03-02] MEDS: D5.45NS W/20 MEQ KCL 1,000 ML IV SCH ×4 (00:02→18:34)
[2018-03-02] MEDS: SODIUM CHLORIDE FLUSH 0.9% 10 ML SYRINGE IVP SCH ×4 (05:11→20:30)
[2018-03-02 06:05] LABS: ALBUMIN 2.8 g/dL (3.2-5.5); ALBUMIN/GLOBULIN RATIO 1.1 (1.0-2.2); BILIRUBIN,TOTAL 0.5 mg/dL (0.2-1.0); CALCIUM 7.7 mg/dL (8.5-10.3); CREATININE 0.5 mg/dL (0.4-1.0); MAGNESIUM 1.6 mg/dL (1.7-2.8); TOTAL PROTEIN 5.3 g/dL (6.7-8.2)
[2018-03-02 06:12] LABS: BASOPHILS % (AUTO) 0.1 %; EOSINOPHILS % (AUTO) 0.3 %; LYMPHOCYTES # (AUTO) 1.5 10^3/uL (1.5-3.5); LYMPHOCYTES % (AUTO) 25.5 %; MEAN CORPUSCULAR HEMOGLOBIN 21.6 pg (27.0-31.0); MEAN CORPUSCULAR HGB CONC 30.8 g/dL (32.0-36.0); MEAN CORPUSCULAR VOLUME 70.1 fL (81.0-99.0); MEAN PLATELET VOLUME 7.5 fL (7.9-10.8); MONOCYTES # (AUTO) 0.4 10^3/uL (0.0-1.0); MONOCYTES % (AUTO) 6.5 %; NEUTROPHILS # (AUTO) 4.1 10^3/uL (1.5-6.6); NEUTROPHILS % (AUTO) 67.6 %; PLT - PLATELET COUNT 342 10^3/uL (130-450); RED CELL DISTRIBUTION WIDTH 17.4 % (12.0-15.0)
[2018-03-02 06:15] LABS: HGB - HEMOGLOBIN 6.9 g/dL (12.0-16.0)
[2018-03-02] MEDS: METOCLOPRAMIDE 10 MG TABLET PO SCH ×4 (06:34→20:32)
[2018-03-02] MEDS ORDERED: POTASSIUM PHOSPHATE 21 MMOL in SODIUM CHLORIDE 0.9% 250 ML IV ONE (08:00)
[2018-03-02] MEDS: MAGNESIUM OXIDE 400 MG TABLET PO SCH ×2 (08:00→12:19)
[2018-03-02] MEDS: POTASSIUM CHLORIDE 20 MEQ TABLET PO SCH ×2 (08:01→11:38)
[2018-03-02] MEDS: INSULIN ASPART 300 UNIT/3 ML PEN SUBQ SCH ×7 (08:06→20:31)
[2018-03-02] MEDS: POLYETHYLENE GLYCOL 3350 17 GM PACKET PO SCH (08:15)
[2018-03-02] MEDS: cloNIDine 0.1 MG TABLET PO SCH ×2 (09:12→20:32)
[2018-03-02] MEDS: PANTOPRAZOLE 40 MG VIAL IVP SCH ×2 (09:12→20:30)
[2018-03-02] MEDS: METOPROLOL SUCCINATE 25 MG TABLET PO SCH ×2 (09:13→20:32)
[2018-03-02] MEDS: ASPIRIN EC 81 MG TABLET PO SCH (09:13)
[2018-03-02] MEDS: diltiaZEM CD 120 MG CAPSULE PO SCH (09:13)
[2018-03-02] MEDS: DULoxetine 20 MG CAPSULE PO SCH (09:13)
[2018-03-02] MEDS: CILOSTAZOL 100 MG TABLET PO SCH ×2 (09:13→20:32)
[2018-03-02] MEDS: IBUPROFEN 600 MG TABLET PO PRN ×2 (11:48→23:00)
[2018-03-02 12:58] LABS: HEPATITIS A IGM NON-REACTIVE (NON-REACTIVE); HEPATITIS B CORE ANTIBODY IGM NON-REACTIVE (NON-REACTIVE); HEPATITIS B SURFACE ANTIGEN NON-REACTIVE (NON-REACTIVE); HEPATITIS C ANTIBODY NON-REACTIVE (NON-REACTIVE)
[2018-03-02 14:27] LABS: HIV AG/AB 4TH GEN NON-REACTIVE (NON-REACTIVE)
[2018-03-02 15:35] LABS: MAGNESIUM 1.8 mg/dL (1.7-2.8); PHOSPHORUS 1.7 mg/dL (2.5-4.6)
--- NOTE | 2018-03-02 15:47 | PROVIDER PROGRESS NOTE ---
Subjective - Prog Note Date Prog Note Date: 03/02/18 Prog Note Time: 15:44 Objective - Vital Signs/Intake & Output Vital Signs: Vital Signs Temp Pulse Resp BP Pulse Ox 03/02/18 15:00 105 H 19 132/92 H 98 03/02/18 14:00 106 H 20 133/93 H 98 03/02/18 13:00 107 H 15 127/84 H 96 03/02/18 12:00 37.4 C 107 H 20 136/91 H 98 Intake & Output: Intake & Output 02/27/18 02/28/18 03/01/18 03/02/18 23:59 23:59 23:59 23:59 Intake Total 3045.542 7068.285 3052.000 Output Total 915 3585 2450 Balance 2130.542 3483.285 602.000 - Lab Results Fish Bones: 03/02/18 05:05 03/02/18 15:19 Other Labs: Lab Results x24hrs 03/02/18 03/02/18 03/02/18 Range/Units 15:19 06:30 05:05 WBC (4.8-10.8) x10^3/uL RBC (4.20-5.40) 10^6/uL Hgb (12.0-16.0) g/dL Hct (37.0-47.0) % MCV (81.0-99.0) fL MCH (27.0-31.0) pg MCHC (32.0-36.0) g/dL RDW (12.0-15.0) % Plt Count (130-450) 10^3/uL MPV (7.9-10.8) fL Neut # (Auto) (1.5-6.6) 10^3/uL Lymph # (Auto) (1.5-3.5) 10^3/uL Sunflower # (Auto) (0.0-1.0) 10^3/uL Eos # (Auto) (0.0-0.7) 10^3/uL Baso # (Auto) (0.0-0.1) 10^3/uL Absolute Nucleated RBC x10^3/uL Nucleated RBC % /100WBC Sodium 132 L (135-145) mmol/L Potassium 3.9 2.9 L (3.5-5.0) mmol/L Chloride 98 L (101-111) mmol/L Carbon Dioxide 26 (21-32) mmol/L Anion Gap 8.0 (6-13) BUN 8 (6-20) mg/dL Creatinine 0.5 (0.4-1.0) mg/dL Estimated GFR (MDRD) 140 (>89) Glucose 372 H (70-100) mg/dL Calcium 7.7 L (8.5-10.3) mg/dL Phosphorus 1.7 L 1.2 L (2.5-4.6) mg/dL Magnesium 1.8 1.6 L (1.7-2.8) mg/dL Total Bilirubin 0.5 (0.2-1.0) mg/dL AST 259 H (10-42) IU/L ALT 317 H (10-60) IU/L Alkaline Phosphatase 198 H (42-121) IU/L Total Protein 5.3 L (6.7-8.2) g/dL Albumin 2.8 L (3.2-5.5) g/dL Globulin 2.5 (2.1-4.2) g/dL Albumin/Globulin Ratio 1.1 (1.0-2.2) Hepatitis A IgM Ab (NON-REACTIVE) Hep Bs Antigen (NON-REACTIVE) Hep B Core IgM Ab (NON-REACTIVE) Hepatitis C Antibody (NON-REACTIVE) Hep C Ab Signal/Cutoff (<1.00) HIV 1&2 Ag/Ab, 4th Gen (NON-REACTIVE) 03/02/18 02/28/18 02/28/18 Range/Units 05:05 22:16 22:16 WBC 6.0 (4.8-10.8) x10^3/uL RBC 3.20 L (4.20-5.40) 10^6/uL Hgb 6.9 L* (12.0-16.0) g/dL Hct 22.4 L (37.0-47.0) % MCV 70.1 L (81.0-99.0) fL MCH 21.6 L (27.0-31.0) pg MCHC 30.8 L (32.0-36.0) g/dL RDW 17.4 H (12.0-15.0) % Plt Count 342 (130-450) 10^3/uL MPV 7.5 L (7.9-10.8) fL Neut # (Auto) 4.1 (1.5-6.6) 10^3/uL Lymph # (Auto) 1.5 (1.5-3.5) 10^3/uL Sunflower # (Auto) 0.4 (0.0-1.0) 10^3/uL Eos # (Auto) 0.0 (0.0-0.7) 10^3/uL Baso # (Auto) 0.0 (0.0-0.1) 10^3/uL Absolute Nucleated RBC 0.00 x10^3/uL Nucleated RBC % 0.1 /100WBC Sodium (135-145) mmol/L Potassium (3.5-5.0) mmol/L Chloride (101-111) mmol/L Carbon Dioxide (21-32) mmol/L Anion Gap (6-13) BUN (6-20) mg/dL Creatinine (0.4-1.0) mg/dL Estimated GFR (MDRD) (>89) Glucose (70-100) mg/dL Calcium (8.5-10.3) mg/dL Phosphorus (2.5-4.6) mg/dL Magnesium (1.7-2.8) mg/dL Total Bilirubin (0.2-1.0) mg/dL AST (10-42) IU/L ALT (10-60) IU/L Alkaline Phosphatase (42-121) IU/L Total Protein (6.7-8.2) g/dL Albumin (3.2-5.5) g/dL Globulin (2.1-4.2) g/dL Albumin/Globulin Ratio (1.0-2.2) Hepatitis A IgM Ab NON-REACTIVE (NON-REACTIVE) Hep Bs Antigen NON-REACTIVE (NON-REACTIVE) Hep B Core IgM Ab NON-REACTIVE (NON-REACTIVE) Hepatitis C Antibody NON-REACTIVE (NON-REACTIVE) Hep C Ab Signal/Cutoff 0.00 (<1.00) HIV 1&2 Ag/Ab, 4th Gen NON-REACTIVE (NON-REACTIVE) Sepsis Event Note (H) - Sepsis Criteria Sepsis Criteria: Recorded Temperature greater than 38.3C or Less than 36C, Recorded Respiratory Rate greater than 20, WBC count greater than 12,000 or less than 4000, CLERK TRAVEL RESERVATIONS: altered consciousness (unrelated to primary neuro pathology) Assessment/Plan - Problem List (1) Acidosis due to type 1 diabetes mellitus Impression: Resolved. Carbon dioxide was 10 yesterday morning. When she came into the hospital she was less than 6. At 1:00 am yesterday morning her pH was 7.3 on venous blood gas. When she first came in she was 6.77. So she was slowly improving but still acidotic. Over the course of yesterday, she gradually resolved her acidosis on her carbon dioxide check. I was able to transition her to her NPH, fixed dose insulin before meals, and sliding scale insulin. She also started to eat. She is still spending most of her time sleeping. When she wakes up she wants to eat. (2) Altered mental status Conclusion/Plan: From her DKA and metabolic encephalopathy. We checked urine tox screen for other substances. Her tox screen is positive for methamphetamines, opiates. Ketones continue to be moderate. 03/01/18 Ammonia level 14 after being 112.3 02/28/17. So part of her altered mental status change could have been from hepatic encephalopathy with these elevated liver enzymes.She is still sleepy but herself. knows where she is and why. Qualifiers: Altered mental status type: stupor Qualified Code(s): R40.1 - Stupor (3) Anemia Conclusion/Plan: Chronic. Combined factors of iron deficiency anemia, nutritional, substance abuse. Laboratory Tests 03/01/18 08:55 Iron 8 L TIBC 315 % Saturation 3 L Transferrin 225 Started oral iron tablets. Low enough today at less than 7 g of hemoglobin that I will transfuse 2 units. (4) Elevated LFTs Conclusion/Plan: Previous hepatitis serology has been negative for AB and C. We will repeat serology. Check ultrasound. (5) SIRS. Conclusion/Plan: Resolved. She met criteria 02/28 pm with regards to a temperature greater than 38, a respiratory rate greater than 20, a white cell count greater than 12,000 and she had encephalopathy. Blood cultures were received and those are pending. Urinalysis yesterday did not have a culture done because she did not meet indications. This woman is at risk for endocarditis because of her IV drug abuse. .Blood cultures from February 28 from March 01 are negative. Urine also has had glucosuria and ketonuria but no infection. She has had no further fever spikes. She is not on empiric antibiotic therapy.
[2018-03-02] MEDS: INSULIN GLARGINE 300 UNIT/3 ML PEN SUBQ SCH (20:32)
[2018-03-02] MEDS: AMITRIPTYLINE 25 MG TABLET PO SCH (20:32)
[2018-03-03] MEDS: D5.45NS W/20 MEQ KCL 1,000 ML IV SCH ×2 (00:45→06:55)
[2018-03-03] MEDS: SODIUM CHLORIDE FLUSH 0.9% 10 ML SYRINGE IVP PRN ×2 (01:58→04:48)
[2018-03-03 05:30] LABS: KETONES, SERUM (ACETEST) NEGATIVE (NEGATIVE)
[2018-03-03 05:33] LABS: BASOPHILS % (AUTO) 0.4 %; EOSINOPHILS # (AUTO) 0.1 10^3/uL (0.0-0.7); EOSINOPHILS % (AUTO) 1.5 %; HGB - HEMOGLOBIN 9.2 g/dL (12.0-16.0); LYMPHOCYTES % (AUTO) 43.8 %; MEAN CORPUSCULAR HEMOGLOBIN 23.3 pg (27.0-31.0); MEAN CORPUSCULAR HGB CONC 31.5 g/dL (32.0-36.0); MEAN CORPUSCULAR VOLUME 73.9 fL (81.0-99.0); MEAN PLATELET VOLUME 7.4 fL (7.9-10.8); MONOCYTES # (AUTO) 0.4 10^3/uL (0.0-1.0); MONOCYTES % (AUTO) 9.1 %; NEUTROPHILS % (AUTO) 45.2 %; PLT - PLATELET COUNT 249 10^3/uL (130-450); RED BLOOD COUNT 3.94 10^6/uL (4.20-5.40); WHITE BLOOD COUNT 4.5 x10^3/uL (4.8-10.8)
[2018-03-03 06:11] LABS: ALBUMIN 2.6 g/dL (3.2-5.5); ALBUMIN/GLOBULIN RATIO 0.9 (1.0-2.2); ALKALINE PHOSPHATASE 178 IU/L (42-121); ALT ALANINE AMINOTRANSFERASE 194 IU/L (10-60); AST ASPARTATE AMINOTRANSFERASE 71 IU/L (10-42); BILIRUBIN,TOTAL 0.5 mg/dL (0.2-1.0); BUN - BLOOD UREA NITROGEN 14 mg/dL (6-20); CALCIUM 8.2 mg/dL (8.5-10.3); CARBON DIOXIDE - CO2 28 mmol/L (21-32); CHLORIDE 103 mmol/L (101-111); CREATININE 0.4 mg/dL (0.4-1.0); GFR - MDRD 181 (>89); GLUCOSE 285 mg/dL (70-100); MAGNESIUM 1.8 mg/dL (1.7-2.8); SODIUM 136 mmol/L (135-145); TOTAL PROTEIN 5.4 g/dL (6.7-8.2)
[2018-03-03 06:13] LABS: VBG PH 7.349 (7.31-7.41)
[2018-03-03] MEDS: METOCLOPRAMIDE 10 MG TABLET PO SCH ×2 (06:55→11:56)
[2018-03-03 07:03] VITALS: BP 132/90
[2018-03-03] MEDS ORDERED: BENZOCAINE/MENTHOL LOZENGE MM PRN (07:10)
[2018-03-03] MEDS: ASPIRIN EC 81 MG TABLET PO SCH (07:59)
[2018-03-03] MEDS: METOPROLOL SUCCINATE 25 MG TABLET PO SCH (07:59)
[2018-03-03] MEDS: CILOSTAZOL 100 MG TABLET PO SCH (07:59)
[2018-03-03] MEDS: diltiaZEM CD 120 MG CAPSULE PO SCH (07:59)
[2018-03-03] MEDS: DULoxetine 20 MG CAPSULE PO SCH (07:59)
[2018-03-03] MEDS: cloNIDine 0.1 MG TABLET PO SCH (07:59)
[2018-03-03] MEDS: PANTOPRAZOLE 40 MG VIAL IVP SCH (08:00)
[2018-03-03] MEDS: POLYETHYLENE GLYCOL 3350 17 GM PACKET PO SCH (08:00)
[2018-03-03] MEDS: INSULIN ASPART 300 UNIT/3 ML PEN SUBQ SCH ×4 (08:18→11:56)
[2018-03-03] MEDS: SODIUM CHLORIDE FLUSH 0.9% 10 ML SYRINGE IVP SCH (08:20)
--- NOTE | 2018-03-03 12:08 | Discharge Plan ---
Discharge Plan Disposition: 01 Home, Self Care Condition: Good Diet: Diabetic Activity Restrictions: Activity as Tolerated Shower Restrictions: No Driving Restrictions: No No Smoking: If you smoke, Please STOP! Call for help.
--- NOTE | 2018-03-03 17:01 | DISCHARGE SUMMARY ---
Physician: Jillian Sandhu MD DATE OF ADMISSION: 02/28/2018 DATE OF DISCHARGE: 03/03/2018 DISCHARGE DIAGNOSES 1. Diabetic ketoacidosis type 1. 2. Lactic acidosis. 3. Systemic inflammatory response syndrome. 4. Methamphetamine abuse. 5. Hepatic encephalopathy. 6. Abnormal liver function studies. 7. Dehydration. 8. Iron deficiency anemia. 9. Fecal occult blood positive. 10. Lack of IV access. 11. Hypothermia. 12. Acute kidney injury. 13. Electrolyte and fluid disorder. DISCHARGE MEDICATIONS: No change from which she is usually discharged on. The question is whether s he has these in her tent or not, since she is homeless. 1. Clonidine 0.1 mg p.o. b.i.d. 2. Cymbalta 20 mg p.o. q.d. 3. Motrin 600 mg p.o. q.6 hours p.r.n. pain. 4. Elavil 25 mg p.o. q.h.s. 5. Aspirin 81 mg daily. 6. Pletal 100 mg p.o. b.i.d. 7. Cardizem-CD 120 mg daily. 8. Novolin 15 units sub-q. a.c. t.i.d. 9. Lantus 40 units sub-q. at night. 10. Reglan 10 mg p.o. q.a.c. h.s. 11. Metoprolol succinate 25 mg p.o. b.i.d. HOSPITAL COURSE: Patient is well known to our service. She is a homeless female. She had moved her e from [place] to be close to her children who she had lost custody of. Somewhere around February, I believe the patient's father . She was kicked out of the house where she had been living wi th him, trying to establish a relationship with her daughters. She has been homeless since that time . She has had multiple, multiple admissions to our institution for diabetic ketoacidosis, methamphet amine drug overdose, hypothermia, osteomyelitis, pancreatitis. She had just been discharged from the hospital overnight 02/18/2018. At discharge, the patient was r efusing to leave. At one point when nursing went to go check in on her, she was doing her methamphet amines in the hospital bathroom. 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 Prior to that, she was admitted 02/06/2018, 01/24/2018, 01/13/2018, 12/30/2017. With this admission, she was found in the bushes, crying out for help, in a vacant lot in [place]. EMS was called and she was brought to the hospital. She was hypothermic, lethargic and obtunded, w ith DKA and severe lactic acidosis. There was delay in IV insulin and hydration because of lack of I V access, but she was transferred to the ICU where she was started on insulin drip and aggressive flu id resuscitation. In that first 24 hours, she developed SIRS with fever, worsening tachycardia, elev ated white cell count, but chest x-ray and blood cultures were negative. This woman would be at incr eased risk for endocarditis because of IV drug abuse. There were no antibiotics given, and her SIRS symptomatology resolved with treatment of her DKA, electrolyte disorders, and acute kidney injury wit h dehydration. Over the next 2 days, we focused on aggressive fluid resuscitation in addition to her Lantus and sub- q. insulin once IV insulin was stopped. Potassium, calcium, magnesium, phosphorus were all supplemen berkley as needed. Carbon dioxide was initially less than 6 on admission. On the day of discharge, she was 28. Anion gap was 35 on admission and 5 on discharge. Toxicology screen was positive for large ketones, and on 03/03/2018, she had no ketones. Urine tox s creen was positive for opiates, methamphetamines. With this stay, she had severely elevated liver enzymes that gradually went down. On the day of disc harge, her AST started at 2529 and was 71. Her ALT started at 354 and was down to 194 at discharge. Bilirubin was normal. Brittany-phos was normal. Ammonia level did spike at 112, but with 1 dose of lac tulose was down to 14 the next day. We checked her hepatitis panel again; she is checked frequently. Hepatitis is negative, and HIV is n onreactive. Her iron deficiency anemia with fecal occult blood positive stool nadired at a 6.9 gram hemoglobin. She was transfused 2 units, and hemoglobin at discharge was 9.2. The patient will need outpatient EG D and colonoscopy if she is compliant. On the day of discharge, she was eating 100% of her food. Spending most of her time in bed, sleeping , but awake, alert, appropriate in speech and ambulation. She was asked to please refrain from doing any recreational substances. Social Service did offer her substance abuse counseling, and the patie nt declined. PHYSICAL EXAMINATION Temperature was 37.1, pulse was 82, blood pressure 124/96, and she is 95-96% on room air. GENERAL: She is a disheveled, white female who looks much older than stated age. HEENT: Resolving blisters on her lips. Oral mucosa is pink and moist. Neck is supple with shotty a denopathy in the anterior cervical chain. She has no teeth. LUNGS: Clear to auscultation and percussion. HEART: She is with a regular rate and rhythm that is occasionally tachycardic. Her Cardizem and met oprolol have already been resumed. ABDOMEN: Hypoactive bowel sounds, nontender. No organomegaly. EXTREMITIES: Partially amputated toes of the feet. Foot pulses are very difficult to assess over do rsalis pedis. Not palpable for me, and we usually use ultrasound, but capillary refill in the great toe is 6 seconds in both toes. Feet appear cool to touch, but there is no active ischemia. She is discharged in stable condition. Unfortunately, this female will most likely return to us [facility] since she is homeless, has declined placement, declined director of social media marketing with regards to substance a buse counseling, [place]. Greater than 30 minutes was spent in coordinating discharge. TD: 03/03/2018 14:25
== END 2018-03-03 15:00 | disposition home or self-care (01) | DRG 638 ==
LOC: EDBD → EDUNIT# → ED 14:42 → ICU 15:49
PROVIDERS: ADMIT Specialist; ATTEND Specialist
PROC: 06HY33Z Insertion of Infusion Device into Lower Vein, Percutaneous Approach (ICD-10-PCS; principal; 2018-02-28)
DX: E10.10 Type 1 diabetes mellitus with ketoacidosis without coma (principal); R65.10 Systemic inflammatory response syndrome (SIRS) of non-infectious origin without acute organ dysfunction; N17.9 Acute kidney failure, unspecified; E87.1 Hypo-osmolality and hyponatremia; F15.10 Other stimulant abuse, uncomplicated; Z91.19 Patient's noncompliance with other medical treatment and regimen; R41.82 Altered mental status, unspecified; I10 Essential (primary) hypertension; E78.00 Pure hypercholesterolemia, unspecified; E10.51 Type 1 diabetes mellitus with diabetic peripheral angiopathy without gangrene; E10.42 Type 1 diabetes mellitus with diabetic polyneuropathy; I25.2 Old myocardial infarction; F32.9 Major depressive disorder, single episode, unspecified; F41.9 Anxiety disorder, unspecified; F41.0 Panic disorder [episodic paroxysmal anxiety]; M79.7 Fibromyalgia; Z89.422 Acquired absence of other left toe(s); Z89.421 Acquired absence of other right toe(s); Z90.49 Acquired absence of other specified parts of digestive tract; F17.200 Nicotine dependence, unspecified, uncomplicated; R74.0 Nonspecific elevation of levels of transaminase and lactic acid dehydrogenase [LDH]; F99 Mental disorder, not otherwise specified; K72.90 Hepatic failure, unspecified without coma; R79.89 Other specified abnormal findings of blood chemistry; E86.0 Dehydration; D50.9 Iron deficiency anemia, unspecified; T68.XXXA Hypothermia, initial encounter; Z59.0 Homelessness; E87.5 Hyperkalemia
CPT/HCPCS: 36415; 71045; 80048; 80053; 80069; 80074; 80306; 80307; 80320; 81001; 81003; 82009; 82140; 82274; 82330; 82550; 82553; 82803; 82947; 83036; 83540; 83605; 83690; 83735; 84100; 84132; 84443; 84466; 84484; 84703; 85025; 85610; 86850; 86900; 86901; 86920; 87040; 87086; 87150; 87389; 93005; 96374; 99283; 99284; 99285